=== PATIENT | female | born 1960 | race Caucasian/White ===

== ENCOUNTER → 2019-12-11 10:35 | Outpatient (BNVA) | payer MEDICARE, MEDICAID, SELFPAY | PROVIDERS: PCP Internal Medicine; Referring Provider Internal Medicine; Visit Provider Internal Medicine | DX: J44.9 Chronic obstructive pulmonary disease, unspecified (principal); J96.90 Respiratory failure, unspecified, unspecified whether with hypoxia or hypercapnia; G47.33 Obstructive sleep apnea (adult) (pediatric); C34.2 Malignant neoplasm of middle lobe, bronchus or lung; F11.20 Opioid dependence, uncomplicated; Z79.899 Other long term (current) drug therapy; Z99.81 Dependence on supplemental oxygen; Z87.891 Personal history of nicotine dependence; Z92.3 Personal history of irradiation | CPT/HCPCS: 99212 ==

== ENCOUNTER 2020-01-01 11:36 | Outpatient (REF) | payer MEDICARE, MEDICAID, SELFPAY ==
[2020-01-01 14:21] LABS: Anion Gap 16 (12-20); Blood Urea Nitrogen 34 mg/dL (9-16); Calcium 9.6 mg/dL (8.4-10.2); Carbon Dioxide 32 mmol/L (22-29); Chloride 97 mmol/L (96-108); Estimated Glomerular Filt Rate 26; Potassium 4.9 mmol/l (3.3-5.1); Sodium 140 mmol/L (135-145)
== END 2020-01-01 11:37 | disposition home or self-care (01) ==
LOC: HO.HMGCLDS 11:36
PROVIDERS: PCP Internal Medicine; Visit Provider Internal Medicine Hypertension Specialist
DX: I12.9 Hypertensive chronic kidney disease with stage 1 through stage 4 chronic kidney disease, or unspecified chronic kidney disease (principal); N18.9 Chronic kidney disease, unspecified; L03.119 Cellulitis of unspecified part of limb
CPT/HCPCS: 80051; 82310; 82565; 84520

== ENCOUNTER 2020-03-07 09:26 | Outpatient (REF) | payer MEDICARE, MEDICAID, SELFPAY ==
[2020-03-07 11:58] LABS: Anion Gap 15 (12-20); Blood Urea Nitrogen 34 mg/dL (9-16); Carbon Dioxide 33 mmol/L (22-29); Chloride 100 mmol/L (96-108); Estimated Glomerular Filt Rate 27; Potassium 4.6 mmol/l (3.3-5.1); Sodium 143 mmol/L (135-145)
== END 2020-03-07 09:27 | disposition home or self-care (01) ==
LOC: HO.HMGCLDS 09:26
PROVIDERS: PCP Internal Medicine; Visit Provider Internal Medicine Hypertension Specialist
DX: I12.9 Hypertensive chronic kidney disease with stage 1 through stage 4 chronic kidney disease, or unspecified chronic kidney disease (principal); N18.9 Chronic kidney disease, unspecified; L03.119 Cellulitis of unspecified part of limb
CPT/HCPCS: 36415; 80051; 82565; 84520

== ENCOUNTER → 2020-03-18 10:47 | Outpatient (BNVA) | payer MEDICARE, MEDICAID, SELFPAY | PROVIDERS: PCP Internal Medicine; Visit Provider Internal Medicine | DX: C34.90 Malignant neoplasm of unspecified part of unspecified bronchus or lung (principal); G47.33 Obstructive sleep apnea (adult) (pediatric); J96.90 Respiratory failure, unspecified, unspecified whether with hypoxia or hypercapnia; J44.9 Chronic obstructive pulmonary disease, unspecified; J98.4 Other disorders of lung | CPT/HCPCS: 99212 ==

== ENCOUNTER 2020-04-04 09:10 | Outpatient (REF) | payer MEDICARE, MEDICAID, SELFPAY ==
[2020-04-04 11:14] LABS: MANUAL DIFF FLAG NO
[2020-04-04 11:24] LABS: Basophils Absolute Auto 0.1 X10*3/uL (0.0-0.2); Basophils Percent Auto 0.6 % (0-2); Hemoglobin 9.8 g/dl (12.0-16.0); Imm Gran Abs Auto 0.03 X10*3/uL (0.00-0.03); Imm Gran Pct Auto 0.3 % (0.0-0.4); Lymphocytes Absolute Auto 1.4 X10*3/uL (1.2-4.9); Lymphocytes Percent Auto 15.9 % (20-40); Mean Corpuscular HGB Conc 29.7 g/dl (31.0-35.0); Mean Corpuscular Hemoglobin 27.5 pg (27.0-33.0); Mean Corpuscular Volume 92.4 fL (80-98); Mean Platelet Volume 9.6 fL (9.4-12.3); Monocytes Absolute Auto 1.1 X10*3/uL (0.1-1.2); Monocytes Percent Auto 12.8 % (2-11); Neutrophils Percent Auto 70.4 % (45-73); Platelet Count 330 X10*3/uL (160-400); Red Blood Count 3.57 X10*6/uL (4.20-5.50); Red Cell Distribution Width 12.6 % (11.0-16.0); White Blood Count 8.6 X10*3/uL (4.8-10.8)
[2020-04-04 11:45] LABS: Alanine Aminotransferase 18 U/L (0-31); Aspartate Amino Transferase 21 U/L (5-31); Cholesterol 184 mg/dL; HDL Cholesterol 46 mg/dL; Iron 33 mcg/dL (30-160); LDL Cholesterol Calculated 101 mg/dl; Percent Iron Saturation 10 % (15-50); Total Iron Binding Capacity 322 mcg/dL (228-428); Triglycerides 189 mg/dL; Unsaturated Iron Binding 289 ug/dL
[2020-04-04 12:09] LABS: Vitamin D 25-OH Total 28.7 ng/mL (>30)
[2020-04-04 17:58] LABS: Folate 10.4 ng/mL (> or = 4.0); Vitamin B12 548 pg/mL (200-900)
== END 2020-04-04 09:11 | disposition home or self-care (01) ==
LOC: HO.HMGCLDS 09:10
PROVIDERS: PCP Internal Medicine; Visit Provider Internal Medicine
DX: D12.6 Benign neoplasm of colon, unspecified (principal); D64.9 Anemia, unspecified; E78.5 Hyperlipidemia, unspecified; Z78.0 Asymptomatic menopausal state
CPT/HCPCS: 36415; 80061; 82306; 82607; 82746; 83540; 84450; 84460; 85025

== ENCOUNTER → 2020-04-25 09:09 | Outpatient (BNVA) | payer MEDICARE, MEDICAID, SELFPAY | PROVIDERS: Visit Provider Nurse Practitioner ==

== ENCOUNTER 2020-04-25 11:12 | Emergency (ER) | payer MEDICARE, MEDICAID, SELFPAY ==
--- NOTE | ~2020-04-25 | XR_ITS ---
EXAMINATION: XR CHEST CLINICAL INFORMATION: Cough, dyspnea, rule out pneumonia COMPARISON: Prior chest radiographs, most recently 07/29/2019 TECHNIQUE: 2 views of the chest were obtained. FINDINGS: Lung volumes are slightly diminished and there is mild crowding of the bronchovascular structures. There are linear opacities within the right middle lobe and there is a small amount of bibasilar atelectasis. The cardiac mediastinal silhouette is stable in size and morphology. There is no large pleural effusion or pneumothorax identified. The structures of the chest wall are unchanged. XR/XR chest 2V IMPRESSION: Linear right middle lobe opacities and minimal bibasilar opacities may represent atelectasis versus pneumonia in the appropriate setting. Follow-up to radiographic resolution is recommended. Given the linear orientation, atelectasis favored.
[2020-04-25 11:31] VITALS: BP 152/73; PULSE 88; RESP 20; TEMP 36.5; O2SAT 91; BMI 43.7
[2020-04-25 13:18] VITALS: BP 140/83; PULSE 106; RESP 22; O2SAT 95
--- NOTE | 2020-04-25 13:27 | ECG_ITS ---
Test Reason : WEAKNESS Blood Pressure : / mmHG Vent. Rate : 083 BPM Atrial Rate : 083 BPM P-R Int : 160 ms QRS Dur : 084 ms QT Int : 388 ms P-R-T Axes : 078 055 049 degrees QTc Int : 455 ms Normal sinus rhythm Normal ECG When compared with ECG of 29-JUL-2019 13:50, T wave inversion no longer evident in Inferior leads Referred By: Hebert Reese Electronically Signed By:THERESA BRENNAN MD
--- NOTE | 2020-04-25 13:29 | ED.GENADULT ---
HPI - General Adult General Chief complaint: Dyspnea Stated complaint: Edema Time Seen by Provider: 04/25/20 13:12 Source: patient and family (Daughter, Anabel) Mode of arrival: ambulatory Limitations: no limitations History of Present Illness HPI narrative: 59-year-old female who presents emergency department for evaluation of shortness of breath, swelling or lower extremities, cough, and fluid weight gain. Patient states that she been short of breath for approximately 5 days and is getting progressively worse. She states she has a history of COPD, lung cancer and congestive heart failure and she believes that her COPD is flared up. She states that she has been using her nebulizers 5 times a day which is more frequent than usual, with only minimal relief of her shortness of breath. She states that she has an intermittent, nonproductive cough. She states that her legs have become very swollen and she feels like there is pockets of fluid inner thighs. She states that when her dialysis chief equipment technician with her last she had a 30 lb weight gain which she believes is all fluid. She denied chest pain, fever, chills. She has had significant orthopnea and cannot lie down flat and has significant dyspnea on exertion. The patient states that she takes Bumex 2 mg twice a day and she does not believe that it is working. The patient states that 1 year prior she had congestive heart failure and required intubation. Related Data Home Medications Medication Instructions Recorded Confirmed bumetanide 2 mg tablet 2 mg PO BID 03/18/20 04/25/20 acetaminophen 650 mg PO BID PRN 04/25/20 04/25/20 albuterol sulfate 2.5 mg INHALATION Q6H PRN 04/25/20 04/25/20 cholecalciferol (vitamin D3) 1,250 mcg PO TH@09 04/25/20 04/25/20 clonazepam [Klonopin] 1 mg PO TID 04/25/20 04/25/20 diltiazem HCl 1 cap PO DAILY 04/25/20 04/25/20 gabapentin 100 mg PO BID PRN 04/25/20 04/25/20 hydroxyzine pamoate 50 mg PO BEDTIME PRN 04/25/20 04/25/20 loratadine 10 mg PO DAILY 04/25/20 04/25/20 methadone 68 mg PO DAILY 04/25/20 Previous Rx's Medication Instructions Recorded aspirin 81 mg tablet,delayed 81 mg PO DAILY #30 tab 12/11/19 release atorvastatin 80 mg tablet 80 mg PO DAILY #90 tab 12/29/19 Symbicort 160 mcg-4.5 2 puff PO Q12H #10.2 g NS 01/08/20 mcg/actuation HFA aerosol inhaler isosorbide mononitrate 60 mg 60 mg PO QAM #30 tab 01/08/20 tablet,extended release 24 hr ipratropium 20 mcg-albuterol 100 1 puff INHALATION QID #4 g 04/01/20 mcg/actuation mist for inhalation doxycycline hyclate 100 mg PO Q12H 10 Days #20 tab 04/25/20 prednisone 60 mg PO DAILY 5 Days #15 tab 04/25/20 Allergies Allergy/AdvReac Type Severity Reaction Status Date / Time ciprofloxacin [From Cipro] Allergy Unknown HIVES/SWELLING, Verified 04/25/20 09:09 THROAT CLOSES shellfish derived Allergy Unknown UNKNOWN Verified 04/25/20 09:09 [SHELLFISH DERIVED] NSAIDS AdvReac Unknown avoid cue Verified 04/25/20 09:09 to kidney disease Review of Systems Review of Systems: Yes all other systems are reviewed and are negative [facility] Past Medical History [facility] Narrative: The patient states that she is a former smoker, she stopped smoking 10 years prior and has a greater than 30 pack-year history of smoking and she denies alcohol use. Patient states she is currently on methadone for prescription opiate use disorder (oxycodone). She states that she last used opiates 1 year prior. Medical History Anemia Breast cancer screening by mammogram COPD (chronic obstructive pulmonary disease) Dyslipidemia Kidney disease Lung cancer LEO (obstructive sleep apnea) Respiratory failure Restrictive lung disease Tubular adenoma of colon Surgical History H/O colonoscopy History of hand surgery History of laparoscopy History of tubal ligation S/P ureteral stent placement Family History Family History Father Diabetes mellitus Mother Depression Maternal Grandfather Colon cancer Sister No problems noted. Son No problems noted. Daughter No problems noted. Daughter No problems noted. Social History Social History Household Members: Spouse Alcohol intake: never Smoking Status: Former smoker Use of substances other than those prescribed or required for medical reasons: No Advance Directives: No Advance Directives Information Provided: No Physical Exam Vital Signs: Vital Signs: Last Vital Signs Temp 98.2 F 04/25/20 15:22 Pulse 99 04/25/20 15:22 Resp 19 04/25/20 15:22 BP 114/75 04/25/20 15:22 Pulse Ox 93 04/25/20 15:22 Body Mass Index 43.7 Const: General: cooperative Nutritional Appearance: obese morbidly obese Orientation/consciousness: oriented to person and oriented to place Limitations: no limitations HENMT: Head: Yes normal to inspection, Yes normocephalic and Yes atraumatic Ears: external ears normal General nose exam: Normal external nose present Face and sinus: Yes normal facial exam Mouth: Normal oral and palatal mucosa present Throat: Yes posterior oropharynx normal Eyes: Periorbital: periorbital findings normal Eyelids: Yes eyelids normal Conjunctivae: conjunctivae normal Sclerae: sclerae normal Corneas: corneas normal Pupils: Equal, round and reactive pupils present Direct Ophthalmoscopy: normal light reflex Neck: Neck: Yes full ROM, Yes no lymphadenopathy, Yes no meningeal signs, Yes trachea midline and Yes supple Chest: Chest palpation & inspection: normal inspection of the chest and normal palpation of entire chest wall Resp: Effort & Inspection: normal respiratory effort and able to speak in complete sentences Auscultation: rales bilateral at the base and wheezes throughout Cardio: Rate: regular rate Rhythm: regular rhythm Heart sounds: S1 normal heart sound present, S2 normal heart sound present and no murmurs GI: Inspection: Yes normal to inspection Palpation (GI): Soft to palpation, nontender, no guarding, not rigid and No hepatosplenomegaly present : General: Yes no CVA tenderness Back/Spine/Pelvis: Back: no CVA tenderness Cervical Spine: normal cervical lordosis Thoracic/Lumbar Spine: thoracic and lumbar spine normal to inspection Skin: Lesions: no lesions Rashes: no rashes Wounds: no wounds Neuro: General: oriented to person, oriented to place and no meningeal signs Cranial nerves: Yes CN's II-XII intact bilaterally and Yes Equal, round and reactive pupils present Cognition (Neuro): normal cognition Motor exam (neuro): 5/5 motor strength present throughout Extrem: Other: 1+ pitting edema to just below the knee, bilaterally symmetric, bilateral circumferential erythema from the ankle to just below the knee, the erythema is not warm to the touch. Psych: Appearance: well kempt Mental Status: mental status grossly normal Speech and movement: Normal speech and movement present Affect: normal affect Attitude: cooperative Thought process: Normal thought process present Thought content: Normal thought content present Course Course Course Narrative: 59-year-old female with a history of COPD, lung cancer in remission, CHF with intubation 1 year prior, chronic kidney disease who presents emergency department for evaluation of 5 days of shortness of breath with increased use of her nebulizer treatments without any relief of her symptoms. Physical examination did reveal diffuse wheezing, 1+ pitting edema bilaterally symmetric and erythema to her lower extremities. The differential includes pneumonia, CHF, COPD exacerbation, COVID-19 pneumonia, pneumonia. I do not think that she has cellulitis at this time. I did order a CBC, CMP, troponin, BNP, COVID-19 test, chest x-ray. Patient was ordered to get an albuterol 5 mg nebulizer x1, Solu-Medrol 125 mg IV. 1636: The patient's repeat laboratory evaluation revealed mild anemia with an H&H of 10.1 and 33.1, this is chronic. At the patient's BUN and creatinine were elevated at 32 and 2.09, this is similar to elevations in the past. Patient's BNP was below detectable limits suggesting the patient does not have CHF as the cause of her shortness of breath. The patient's troponin is detectable but not elevated, I do not think that cardiac injury is the cause of her symptoms. The patient's COVID-19 test was negative. Chest x-ray revealed linear middle lobe opacity consistent with atelectasis versus pneumonia as per radiologist. At this time I suspect the patient has a COPD exacerbation, she may have bronchitis. I do not think that she has cellulitis however I am going to treated with doxycycline 100 mg twice a day for pulmonary infection and this would also give her coverage for possible cellulitis. The patient was discharged home with a prescription for prednisone 60 mg once a day for 5 days as well. She was advised to decrease her fluid intake, keep her legs elevated continue taking her Bumex.. Medical Decision Making Lab Data Result diagrams: 04/25/20 13:47 04/25/20 13:47 Labs: Lab Results 04/25/20 04/25/20 04/25/20 Range/Units 13:47 13:47 13:47 WBC 8.0 (4.8-10.8) X10*3/uL RBC 3.64 L (4.20-5.50) X10*6/uL Hgb 10.1 L (12.0-16.0) g/dl Hct 33.1 L (37-47) % MCV 90.9 (80-98) fL MCH 27.7 (27.0-33.0) pg MCHC 30.5 L (31.0-35.0) g/dl RDW 12.4 (11.0-16.0) % Plt Count 335 (160-400) X10*3/uL MPV 8.9 L (9.4-12.3) fL Immature Gran % (Auto) 0.7 H (0.0-0.4) % Neut % (Auto) 67.2 (45-73) % Lymph % (Auto) 15.3 L (20-40) % [place] % (Auto) 13.9 H (2-11) % Eos % (Auto) 2.0 (0-4) % Baso % (Auto) 0.9 (0-2) % Lymph # (Auto) 1.2 (1.2-4.9) X10*3/uL [place] # (Auto) 1.1 (0.1-1.2) X10*3/uL Eos # (Auto) 0.2 (0.0-0.4) X10*3/uL Baso # (Auto) 0.1 (0.0-0.2) X10*3/uL Abs Immat Gran (auto) 0.06 H (0.00-0.03) X10*3/uL Absolute Neuts (auto) 5.4 (2.0-8.3) X10*3/uL Absolute Nucleated RBC 0.000 (0.0-0.012) X10*3/uL Nucleated RBC % (auto) 0.0 (0.0-0.2) /100WBC Sodium 139 (135-145) mmol/L Potassium 4.9 (3.3-5.1) mmol/L Chloride 98 (96-108) mmol/L Carbon Dioxide 27 (22-29) mmol/L Anion Gap 19 (12-20) BUN 32 H (9-16) mg/dL Creatinine 2.09 H (0.5-1.4) mg/dL Estim Creat Clear Calc 33.1 Estimated GFR 24 Random Glucose 107 (60-115) mg/dL Lactic Acid 1.1 (0.5-2.0) mmol/L Calcium 9.3 (8.4-10.2) mg/dL Total Bilirubin 0.5 (0.0-1.0) mg/dL AST 31 D (5-31) U/L ALT 20 (0-31) U/L Alkaline Phosphatase 135 H (39-117) U/L Troponin I High Sens (<3.5-17.0) ng/L B-Natriuretic Peptide (<100) pg/mL Total Protein 7.4 (6.5-8.0) g/dL Albumin 4.3 (3.5-5.0) g/dL COVID-19 ([facility]) (Negative) COVID-19 Clin Com 04/25/20 04/25/20 Range/Units 13:47 13:49 WBC (4.8-10.8) X10*3/uL RBC (4.20-5.50) X10*6/uL Hgb (12.0-16.0) g/dl Hct (37-47) % MCV (80-98) fL MCH (27.0-33.0) pg MCHC (31.0-35.0) g/dl RDW (11.0-16.0) % Plt Count (160-400) X10*3/uL MPV (9.4-12.3) fL Immature Gran % (Auto) (0.0-0.4) % Neut % (Auto) (45-73) % Lymph % (Auto) (20-40) % [place] % (Auto) (2-11) % Eos % (Auto) (0-4) % Baso % (Auto) (0-2) % Lymph # (Auto) (1.2-4.9) X10*3/uL [place] # (Auto) (0.1-1.2) X10*3/uL Eos # (Auto) (0.0-0.4) X10*3/uL Baso # (Auto) (0.0-0.2) X10*3/uL Abs Immat Gran (auto) (0.00-0.03) X10*3/uL Absolute Neuts (auto) (2.0-8.3) X10*3/uL Absolute Nucleated RBC (0.0-0.012) X10*3/uL Nucleated RBC % (auto) (0.0-0.2) /100WBC Sodium (135-145) mmol/L Potassium (3.3-5.1) mmol/L Chloride (96-108) mmol/L Carbon Dioxide (22-29) mmol/L Anion Gap (12-20) BUN (9-16) mg/dL Creatinine (0.5-1.4) mg/dL Estim Creat Clear Calc Estimated GFR Random Glucose (60-115) mg/dL Lactic Acid (0.5-2.0) mmol/L Calcium (8.4-10.2) mg/dL Total Bilirubin (0.0-1.0) mg/dL AST (5-31) U/L ALT (0-31) U/L Alkaline Phosphatase (39-117) U/L Troponin I High Sens 5.8 (<3.5-17.0) ng/L B-Natriuretic Peptide < 10 (<100) pg/mL Total Protein (6.5-8.0) g/dL Albumin (3.5-5.0) g/dL COVID-19 ([facility]) Negative (Negative) COVID-19 Clin Com See Note Discharge Plan Discharge Clinical Impression: Acute exacerbation of chronic obstructive pulmonary disease, Peripheral edema Patient Disposition: Home, Self-Care Instructions: Acute Bronchitis (ED) Additional Instructions: Your laboratory evaluation was unchanged from your baseline which is reassuring. The chest x-ray did not reveal a clear pneumonia on my interpretation of the x-ray. I do not see any fluid on your chest x-ray which is also reassuring, I do not think that you have congestive heart failure at this time. You shortness of breath is most likely caused by a flare-up of your COPD and possibly bronchitis. Take doxycycline 100 mg twice a day for 10 days, this antibiotic which treat a lung infection as well as possible cellulitis. Take prednisone 60 mg once a day for 5 days. Keep your legs elevated to help reduce the swelling in your legs in reduce the redness. Reduce the amount of fluid that you drink so that you can reduce the swelling in your legs. Continue medications as prescribed by your doctor. Follow-up with your doctor in 2 days. Please return to the emergency department if your symptoms get worse or if you develop any symptoms that are concerning to you. Prescriptions: New doxycycline hyclate 100 mg tablet 100 mg PO Q12H 10 Days Qty: 20 RF: 0 prednisone 20 mg tablet 60 mg PO DAILY 5 Days Qty: 15 RF: 0 No Action aspirin 81 mg tablet,delayed release (DR/EC) 81 mg PO DAILY Qty: 30 RF: 0 atorvastatin 80 mg tablet 80 mg PO DAILY Qty: 90 RF: 1 budesonide-formoterol [Symbicort] 160-4.5 mcg/actuation HFA aerosol inhaler 2 puff PO Q12H Qty: 10.2 RF: 0 isosorbide mononitrate 60 mg tablet extended release 24 hr 60 mg PO QAM Qty: 30 RF: 0 ipratropium-albuterol [Combivent Respimat] 20-100 mcg/actuation mist 1 puff inhalation QID Qty: 4 RF: 0 diltiazem HCl 120 mg capsule,extended release 24hr 1 cap PO DAILY RF: 0 loratadine 10 mg Tablet 10 mg PO DAILY RF: 0 albuterol sulfate 2.5 mg /3 mL (0.083 %) solution for nebulization 2.5 mg inhalation Q6H PRN (Reason: Shortness Of Breath) RF: 0 clonazepam [Klonopin] 1 mg tablet 1 mg PO TID RF: 0 gabapentin 100 mg capsule 100 mg PO BID PRN (Reason: Pain, Mild) RF: 0 cholecalciferol (vitamin D3) 1,250 mcg (50,000 unit) capsule 1,250 mcg PO TH@09 RF: 0 acetaminophen 325 mg Tablet 650 mg PO BID PRN (Reason: Pain, Mild) RF: 0 methadone 10 mg/mL concentrate 68 mg PO DAILY RF: 0 hydroxyzine pamoate 50 mg capsule 50 mg PO BEDTIME PRN (Reason: Sleep) RF: 0 bumetanide 2 mg tablet 2 mg PO BID RF: 0
[2020-04-25] MEDS: methylPREDNISolone Sod Succ 125 MG/2 ML VIAL IVPUSH (13:51)
--- NOTE | 2020-04-25 13:57 | PC.NURSE ---
iv inserted, labs drawn, ekg performed, pt medicated per order, cardiac cath technologist applied, pt sinus tach on monitor
--- NOTE | 2020-04-25 13:58 | PC.NURSE ---
rt called for updraft
[2020-04-25 14:00] LABS: Basophils Absolute Auto 0.1 X10*3/uL (0.0-0.2); Basophils Percent Auto 0.9 % (0-2); Eosinophils Absolute Auto 0.2 X10*3/uL (0.0-0.4); Hematocrit 33.1 % (37-47); Hemoglobin 10.1 g/dl (12.0-16.0); Imm Gran Abs Auto 0.06 X10*3/uL (0.00-0.03); Imm Gran Pct Auto 0.7 % (0.0-0.4); Lymphocytes Absolute Auto 1.2 X10*3/uL (1.2-4.9); Lymphocytes Percent Auto 15.3 % (20-40); MANUAL DIFF FLAG NO; Mean Corpuscular HGB Conc 30.5 g/dl (31.0-35.0); Mean Corpuscular Hemoglobin 27.7 pg (27.0-33.0); Mean Corpuscular Volume 90.9 fL (80-98); Mean Platelet Volume 8.9 fL (9.4-12.3); Monocytes Absolute Auto 1.1 X10*3/uL (0.1-1.2); Monocytes Percent Auto 13.9 % (2-11); Neutrophils Absolute Auto 5.4 X10*3/uL (2.0-8.3); Neutrophils Percent Auto 67.2 % (45-73); Platelet Count 335 X10*3/uL (160-400); Red Blood Count 3.64 X10*6/uL (4.20-5.50); Red Cell Distribution Width 12.4 % (11.0-16.0)
[2020-04-25] MEDS: Albuterol Sulfate (0.083%) 2.5 MG/3 ML VIAL.NEB 5 MG INHALE (14:07)
[2020-04-25 14:13] LABS: COVID-19 Test Negative (Negative)
[2020-04-25 14:23] LABS: Lactic Acid 1.1 mmol/L (0.5-2.0)
[2020-04-25 14:30] LABS: B Type Natriuretic Peptide < 10 pg/mL (<100); Troponin-I High Sensitivity 5.8 ng/L (<3.5-17.0)
[2020-04-25 14:36] LABS: Alanine Aminotransferase 20 U/L (0-31); Albumin Level 4.3 g/dL (3.5-5.0); Alkaline Phosphatase 135 U/L (39-117); Anion Gap 19 (12-20); Aspartate Amino Transferase 31 U/L (5-31); Bilirubin Total 0.5 mg/dL (0.0-1.0); Blood Urea Nitrogen 32 mg/dL (9-16); Calcium 9.3 mg/dL (8.4-10.2); Carbon Dioxide 27 mmol/L (22-29); Chloride 98 mmol/L (96-108); Creatinine Clr Calc Pharmacy 33.1; Estimated Glomerular Filt Rate 24; Glucose Random 107 mg/dL (60-115); Potassium 4.9 mmol/L (3.3-5.1); Sodium 139 mmol/L (135-145); Total Protein 7.4 g/dL (6.5-8.0)
[2020-04-25 15:22] VITALS: BP 114/75; PULSE 99; RESP 19; TEMP 36.8; O2SAT 93
--- NOTE | 2020-04-25 15:25 | PC.NURSE ---
patient a&ox3, shelter monitor nsr to sinus tach 90s-low 100s, pt 2l o2 nc o2 sat 93% however when the patient speaks in full sentences patients o2 sat decreases to 89-90% and patient is notably sob while speaking. Vitals currently stable, will continue to monitor.
--- NOTE | 2020-04-25 16:44 | PC.NURSE ---
patient medicated per order
== END 2020-04-25 17:13 | disposition home or self-care (01) ==
PROVIDERS: Emergency Provider Emergency Medicine Emergency Medical Services; PCP Internal Medicine
DX: J44.1 Chronic obstructive pulmonary disease with (acute) exacerbation (principal); R60.0 Localized edema; F11.90 Opioid use, unspecified, uncomplicated; R05 Cough; Z20.822 Contact with and (suspected) exposure to COVID-19; Z79.899 Other long term (current) drug therapy; Z87.891 Personal history of nicotine dependence
CPT/HCPCS: 36415; 71046; 80053; 83605; 83880; 84484; 85025; 87635; 93005; 94640; 96374; 99284; J2930; Q3014

== ENCOUNTER 2020-05-13 10:26 | Outpatient (REF) | payer MEDICARE, MEDICAID, SELFPAY ==
[2020-05-13 11:32] LABS: MANUAL DIFF FLAG NO
[2020-05-13 11:50] LABS: Basophils Percent Auto 0.4 % (0-2); Hematocrit 34.4 % (37-47); Hemoglobin 10.5 g/dl (12.0-16.0); Imm Gran Abs Auto 0.02 X10*3/uL (0.00-0.03); Imm Gran Pct Auto 0.2 % (0.0-0.4); Lymphocytes Absolute Auto 1.1 X10*3/uL (1.2-4.9); Lymphocytes Percent Auto 11.5 % (20-40); Mean Corpuscular HGB Conc 30.5 g/dl (31.0-35.0); Mean Corpuscular Hemoglobin 28.2 pg (27.0-33.0); Mean Corpuscular Volume 92.2 fL (80-98); Mean Platelet Volume 9.5 fL (9.4-12.3); Monocytes Absolute Auto 1.1 X10*3/uL (0.1-1.2); Monocytes Percent Auto 12.4 % (2-11); Neutrophils Absolute Auto 6.9 X10*3/uL (2.0-8.3); Neutrophils Percent Auto 75.5 % (45-73); Platelet Count 295 X10*3/uL (160-400); Red Blood Count 3.73 X10*6/uL (4.20-5.50); White Blood Count 9.2 X10*3/uL (4.8-10.8)
[2020-05-13 11:54] LABS: B Type Natriuretic Peptide < 10 pg/mL (<100)
[2020-05-13 12:02] LABS: Alanine Aminotransferase 20 U/L (0-31); Aspartate Amino Transferase 26 U/L (5-31); Cholesterol 172 mg/dL; HDL Cholesterol 46 mg/dL; LDL Cholesterol Calculated 100 mg/dl; Triglycerides 133 mg/dL
[2020-05-13 12:13] LABS: Vitamin D 25-OH Total 46.5 ng/mL (>30)
== END 2020-05-13 10:27 | disposition home or self-care (01) ==
LOC: HO.HMGCLDS 10:26
PROVIDERS: PCP Internal Medicine; Visit Provider Internal Medicine
DX: D64.9 Anemia, unspecified (principal); E78.5 Hyperlipidemia, unspecified; E55.9 Vitamin D deficiency, unspecified; Z78.0 Asymptomatic menopausal state
CPT/HCPCS: 36415; 80061; 82306; 83880; 84450; 84460; 85025

== ENCOUNTER → 2020-05-22 10:30 | Outpatient (BNVA) | payer MEDICARE, MEDICAID, SELFPAY | PROVIDERS: PCP Internal Medicine; Visit Provider Internal Medicine ==

== ENCOUNTER 2020-05-22 10:43 | Emergency (ER) | payer MEDICARE, MEDICAID, SELFPAY ==
--- NOTE | ~2020-05-22 | XR_ITS ---
EXAMINATION: XR RIBS, RIGHT CLINICAL INFORMATION: Fall, posterior rib pain COMPARISON: Chest radiograph 05/22/2020 and 04/25/2020 TECHNIQUE: 3 views of the right ribs were obtained. FINDINGS: There is a mildly displaced right fifth lateral rib fracture, the edges are somewhat corticated, and age is indeterminate, favored to the subacute or chronic. There is a healed right anterior 12th rib fracture. The remainder of the bones are intact. There are streaky areas of atelectasis or scarring in the bilateral lower lobes, similar to the prior. No pleural effusion or pneumothorax. XR/XR ribs RT 2V IMPRESSION: Mildly displaced right fifth lateral rib fracture, of indeterminate age, but favored to be subacute or chronic. Healed right anterior 12th rib fracture. Streaky atelectasis versus scarring at the bilateral lower lobes.
--- NOTE | ~2020-05-22 | XR_ITS ---
EXAMINATION: XR CHEST CLINICAL INFORMATION: Shortness of breath COMPARISON: Previous chest x-ray, most recent April 25, 2020 TECHNIQUE: 2 views of the chest were obtained. FINDINGS: The cardiac and mediastinal contours are stable. There is bilateral subsegmental atelectasis or small infiltrates in the right middle lobe and bilateral lung bases. This does not appear appreciably changed from most recent chest x-ray 04/25/2020. This is new from older chest x-ray July 2019. There is no pleural effusion or pneumothorax. There are degenerative changes of the spine. XR/XR chest 2V IMPRESSION: Subsegmental atelectasis or small infiltrates in the right middle lobe and bilateral lung bases similar to most recent chest x-ray April 2020.
--- NOTE | ~2020-05-22 | CT_ITS ---
EXAMINATION: CT HEAD WITHOUT CONTRAST CT CERVICAL SPINE WITHOUT CONTRAST CLINICAL INFORMATION: fall 3 days, worsening motor coordination upper extremities? COMPARISON: CT head February 2019. CT cervical spine 01/10/2010 TECHNIQUE: Imaging was performed from the skull base to vertex without intravenous administration of contrast. In addition, helical noncontrast CT imaging was acquired through the cervical spine and source images were reviewed along with axial reconstructions and sagittal and coronal MPRs. [This CT examination was performed using dose optimization techniques as appropriate, variously including the following: *Automated exposure control *Adjustment of mA and/or kV according to patient size (this includes techniques or standardized protocols for targeted exams where dose is matched to indication/reason for exam; i.e. extremities or head) *Use of iterative reconstruction technique] DLP: 1349 mGy-cm FINDINGS: HEAD: No intracranial mass, hemorrhage, or midline shift is visualized. The ventricles and sulci are age-appropriate. No extra-axial collections are identified. The paranasal sinuses and mastoid air cells are well aerated. CERVICAL SPINE: There is reversal the normal lordotic curve of the cervical spine. This has progressed since prior study of January 2010 CT exam. There is a minimal anterior listhesis C4 on C5 due to facet joint disease. There is no fracture. There is multilevel degenerative spondylosis of disc height narrowing and vertebral endplate spurring and facet joint arthrosis which has progressed since CAT scan of 2009. Most significant disc height narrowing and endplate spurring at C6-C7. There are small bone erosions at the facet joints on the right C4-C5 and on the left at C3-C4. These are consistent with inflammatory arthrosis. No pre- or paravertebral soft tissue abnormality is identified. Limited assessment of the lung apices is unremarkable. CT/CT cervical spine wo con IMPRESSION: 1. No acute intracranial pathology. 2. No CT evidence of acute cervical spine fracture or traumatic subluxation
[2020-05-22 11:59] VITALS: BP 140/63; PULSE 91; RESP 20; TEMP 36.7; O2SAT 91; BMI 44.9
--- NOTE | 2020-05-22 12:05 | ECG_ITS ---
Test Reason : FALL Blood Pressure : / mmHG Vent. Rate : 116 BPM Atrial Rate : 116 BPM P-R Int : 152 ms QRS Dur : 074 ms QT Int : 320 ms P-R-T Axes : 061 050 042 degrees QTc Int : 444 ms Artifact in tracing Sinus tachycardia Otherwise normal ECG When compared with ECG of 25-APR-2020 13:50, No significant changes seen Referred By: Ron Ziegler Electronically Signed By:YUNIOR BARON
--- NOTE | 2020-05-22 12:07 | ED.GENADULT ---
HPI - General Adult General Chief complaint: General Medical <Ron Ziegler NP - Last Filed: 05/22/20 21:26> Stated complaint: HEAD INJ <Ron Ziegler NP - Last Filed: 05/22/20:26> Time Seen by Provider: 05/22/20 11:24 <Ron Ziegler NP - Last Filed: 05/22/20 21:26> Source: patient <Ron Ziegler NP - Last Filed: 05/22/20 21:26> patient <Nichole Langford MD - Last Filed: 05/22/20:31> Mode of arrival: wheelchair <Ron Ziegler NP - Last Filed: 05/22/20 21:26> ambulatory <Nichole Langford MD - Last Filed: 05/22/20:31> Limitations: no limitations <Ron Ziegler NP - Last Filed: 05/22/20:> no limitations <Nichole Langford MD - Last Filed: 05/22/20 21:31> History of Present Illness HPI narrative: Rapid medical evaluation patient seen in triage in triage to the main emergency room appropriate lab work ordered upon arrival Chief presents with constellation of symptoms including fall days ago hit her head has been having muscle tremors and hard time with walking also feet more swollen and red and also having hard time breathing. 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 <Ron Ziegler NP - Last Filed: 05/22/20 21:26> Patient comes emergency room complaining of a head injury that happened 3 days ago. Patient states she lost her balance and hit the back of her head, patient is not on blood thinners, denies loss of consciousness. 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 Patient also complaining of worsening cough, and lower extremity edema, patient states also that with the fall, she hurt her ribs on the right side. <Nichole Langford MD - Last Filed: 05/22/20 21:31> Onset (ago): day(s) (4) <Ron Ziegler NP - Last Filed: 05/22/20 21:26> Related Data Home medications: Home Medications Medication Instructions Recorded Confirmed bumetanide 2 mg tablet 2 mg PO BID 03/18/20 05/14/20 acetaminophen 650 mg PO BID PRN 04/25/20 05/14/20 albuterol sulfate 2.5 mg INHALATION Q6H PRN 04/25/20 05/14/20 cholecalciferol (vitamin D3) 1,250 mcg PO TH@09 04/25/20 05/14/20 clonazepam [Klonopin] 1 mg PO TID 04/25/20 05/14/20 diltiazem HCl 1 cap PO DAILY 04/25/20 05/14/20 hydroxyzine pamoate 50 mg PO BEDTIME PRN 04/25/20 05/14/20 loratadine 10 mg PO DAILY 04/25/20 05/14/20 methadone 68 mg PO DAILY 04/25/20 05/14/20 Previous Rx's Medication Instructions Recorded aspirin 81 mg tablet,delayed 81 mg PO DAILY #30 tab 12/11/19 release atorvastatin 80 mg tablet 80 mg PO DAILY #90 tab 12/29/19 isosorbide mononitrate 60 mg 60 mg PO QAM #30 tab 01/08/20 tablet,extended release 24 hr ipratropium 20 mcg-albuterol 100 1 puff INHALATION QID #4 g 04/01/20 mcg/actuation mist for inhalation Symbicort 160 mcg-4.5 2 puff PO Q12H #10.2 g NS 05/06/20 mcg/actuation HFA aerosol inhaler gabapentin 100 mg capsule 100 mg PO BID #60 cap 05/06/20 azithromycin 250 mg PO DAILY 5 Days #5 tab 05/22/20 prednisone 50 mg PO DAILY #4 tab 05/22/20 torsemide 20 mg PO DAILY #4 tab 05/22/20 tramadol 50 mg PO DAILY PRN #7 tab 05/22/20 <Ron Ziegler NP - Last Filed: 05/22/20 21:26> Allergies/adverse reactions: Allergies Allergy/AdvReac Type Severity Reaction Status Date / Time ciprofloxacin [From Cipro] Allergy Unknown HIVES/SWELLING, Verified 05/14/20 00:22 THROAT CLOSES shellfish derived Allergy Unknown UNKNOWN Verified 05/14/20 00:22 [SHELLFISH DERIVED] NSAIDS AdvReac Unknown avoid cue Verified 05/14/20 00:22 to kidney disease <Ron Ziegler NP - Last Filed: 05/22/20 21:26> Review of Systems Review of Systems: Constitutional : No Weight loss, No Fever, No Chills, No Night Sweats, No Fatigue, No Malaise ENT/Mouth : No Hearing loss, No Ear Pain, No Nasal Congestion, No Sinus Pain, No Hoarseness, No sore throat, No Rhinorrhea, No Swallowing Difficulty Eyes: No Eye Pain, No Swelling, No Redness, No Foreign Body, No Discharge, No Vision Changes Cardiovascular : No Chest Pain, No SOB, chronic Dyspnea on Exertion, No Orthopnea, worsening lower extremity edema Respiratory : Chronic cough with increased sputum, wheezing at baseline, No Smoke Exposure, chronic dyspnea at baseline, on home oxygen Gastrointestinal : No Nausea, No Vomiting, No Diarrhea, No Constipation, No abdominal Pain, No Hematochezia, No Melena Genitourinary : no irregular bleeding, No Dysuria, No Urinary Frequency, No Hematuria, No Urinary Incontinence, No Urgency, No Flank Pain, No Urinary Flow Changes, No Hesitancy Musculoskeletal : Complaining of posterior right rib pain Skin : Tense, due to edema Neuro : No Weakness, No Numbness, No Paresthesias, No Loss of Consciousness, No Dizziness, No Headache, increased tremor Psych : No Anxiety/Panic, No Depression, No SI/HI/AH/VH, No Social Issues, Heme/Lymph: No Bruising, No Bleeding,No Lymphadenopathy Endocrine : No Polyuria, No Polydipsia, No Temperature Intolerance <Nichole Langford MD - Last Filed: 05/22/20 21:31> [facility] Past Medical History Medical History: Medical History Anemia Breast cancer screening by mammogram COPD (chronic obstructive pulmonary disease) Dyslipidemia Kidney disease Lung cancer LEO (obstructive sleep apnea) Respiratory failure Restrictive lung disease Tubular adenoma of colon Vitamin D deficiency <Ron Ziegler NP - Last Filed: 05/22/20 21:26> Surgical History: Surgical History H/O colonoscopy History of hand surgery History of laparoscopy History of tubal ligation S/P ureteral stent placement <Ron Ziegler NP - Last Filed: 05/22/20 21:26> Family History Family History: Family History Father Diabetes mellitus Mother Depression Maternal Grandfather Colon cancer Sister No problems noted. Son No problems noted. Daughter No problems noted. Daughter No problems noted. <Ron Ziegler NP - Last Filed: 05/22/20 21:26> Social History Social History: Social History Household Members: Spouse Alcohol intake: never Smoking Status: Former smoker Use of substances other than those prescribed or required for medical reasons: No Advance Directives: No Advance Directives Information Provided: Yes <Ron Ziegler NP - Last Filed: 05/22/20 21:26> Physical Exam Vital Signs: Vital Signs: Last Vital Signs Temp 98.5 F 05/22/20 17:48 Pulse 110 H 05/22/20 19:54 Resp 18 05/22/20 19:54 BP 137/61 05/22/20 19:54 Pulse Ox 92 05/22/20 19:54 Body Mass Index 44.9 <Ron Ziegler NP - Last Filed: 05/22/20 21:26> Vital Signs: Last Vital Signs Temp 98.5 F 05/22/20 17:48 Pulse 110 H 05/22/20 19:54 Resp 18 05/22/20 19:54 BP 137/61 05/22/20 19:54 Pulse Ox 92 05/22/20 19:54 Body Mass Index 44.9 <Nichole Langford MD - Last Filed: 05/22/20 21:31> Appearance: Alert. Oriented X3. No acute distress. Eyes: Pupils equal, round and reactive to light. ENT: Pharynx normal. Neck: Normal inspection. Neck supple. No lymph nodes noted. No crepitus CVS: Normal heart rate and rhythm. Pulses normal. Normal S1 and S2 Respiratory: No respiratory distress. Breath sounds normal. No Wheezing. No rales Abdomen: Soft and nontender. No rigidity. No distention. good BS x4 Skin: Skin warm and dry. Normal skin color. Normal skin turgor. Extremities: Bilateral +3 pitting edema Neuro: Oriented X 3. No motor deficit. No sensory deficit. Moving all extermities. No slurred speech. <Nichole Langford MD - Last Filed: 05/22/20 21:31> Course Course Course Narrative: Patient is medically stable at this time. NAD. Extensive history appropriate labs ordered and triaged to [facility] emergency room. <Ron Ziegler NP - Last Filed: 05/22/20 21:26> I discussed the labs and imaging with the patient, patient's lactic acid is elevated, white blood cell count is within normal limits, chest x-ray shows atelectasis versus infiltrate in right middle lobe . 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 I discussed with the patient that she should be staying, due to the lower extremity edema, multiple comorbidities, patient declined and wants to go home., Dr. Fields spoke to the patient as well, she declined admission. <Nichole Langford MD - Last Filed: 05/22/20 21:31> Medical Decision Making Lab Data Result diagrams: : 05/22/20 12:26 05/22/20 12:26 <Ron Ziegler NP - Last Filed: 05/22/20 21:26> Labs: Lab Results 05/22/20 05/22/20 05/22/20 Range/Units 12:26 12:26 12:26 WBC 8.7 (4.8-10.8) X10*3/uL RBC 3.30 L (4.20-5.50) X10*6/uL Hgb 9.2 L (12.0-16.0) g/dl Hct 31.3 L (37-47) % MCV 94.8 (80-98) fL MCH 27.9 (27.0-33.0) pg MCHC 29.4 L (31.0-35.0) g/dl RDW 13.2 (11.0-16.0) % Plt Count 372 D (160-400) X10*3/uL MPV 8.6 L (9.4-12.3) fL Immature Gran % (Auto) 0.3 (0.0-0.4) % Neut % (Auto) 78.0 H (45-73) % Lymph % (Auto) 9.1 L (20-40) % Murray % (Auto) 12.3 H (2-11) % Eos % (Auto) 0.0 (0-4) % Baso % (Auto) 0.3 (0-2) % Lymph # (Auto) 0.8 L (1.2-4.9) X10*3/uL Murray # (Auto) 1.1 (0.1-1.2) X10*3/uL Eos # (Auto) 0.0 (0.0-0.4) X10*3/uL Baso # (Auto) 0.0 (0.0-0.2) X10*3/uL Abs Immat Gran (auto) 0.03 (0.00-0.03) X10*3/uL Absolute Neuts (auto) 6.8 (2.0-8.3) X10*3/uL Absolute Nucleated RBC 0.000 (0.0-0.012) X10*3/uL Nucleated RBC % (auto) 0.0 (0.0-0.2) /100WBC PT 11.7 (10.8-13.0) SEC INR 1.0 (0.9-1.1) APTT 41.1 H (24.1-38.0) SEC Sodium 143 (135-145) mmol/L Potassium 5.2 H (3.3-5.1) mmol/L Chloride 102 (96-108) mmol/L Carbon Dioxide 31 H (22-29) mmol/L Anion Gap 15 (12-20) BUN 27 H (9-16) mg/dL Creatinine 1.94 H (0.5-1.4) mg/dL Estim Creat Clear Calc 34.9 Estimated GFR 27 Random Glucose 79 (60-115) mg/dL Lactic Acid (0.5-2.0) mmol/L Lactic Acid Fup @ 2Hr (0.5-2.0) mmol/L Calcium 9.2 (8.4-10.2) mg/dL Magnesium 1.7 (1.6-2.6) mg/dL Ferritin (10-250) ng/mL Total Bilirubin 0.4 (0.0-1.0) mg/dL AST 25 (5-31) U/L ALT 20 (0-31) U/L Alkaline Phosphatase 143 H (39-117) U/L Lactate Dehydrogenase 278 H (122-220) U/L Troponin I High Sens (<3.5-17.0) ng/L C-Reactive Protein (< or = 0.50) mg/dL Total Protein 6.8 (6.5-8.0) g/dL Albumin 4.2 (3.5-5.0) g/dL Procalcitonin ng/mL Ethyl Alcohol mg/dL Coronavirus (PCR) (Negative) Influenza Type A (PCR) (Negative) Influenza Type B (PCR) (Negative) RSV RNA Qual (PCR) (Negative) 05/22/20 05/22/20 05/22/20 Range/Units 12:26 12:26 12:26 WBC (4.8-10.8) X10*3/uL RBC (4.20-5.50) X10*6/uL Hgb (12.0-16.0) g/dl Hct (37-47) % MCV (80-98) fL MCH (27.0-33.0) pg MCHC (31.0-35.0) g/dl RDW (11.0-16.0) % Plt Count (160-400) X10*3/uL MPV (9.4-12.3) fL Immature Gran % (Auto) (0.0-0.4) % Neut % (Auto) (45-73) % Lymph % (Auto) (20-40) % Murray % (Auto) (2-11) % Eos % (Auto) (0-4) % Baso % (Auto) (0-2) % Lymph # (Auto) (1.2-4.9) X10*3/uL Murray # (Auto) (0.1-1.2) X10*3/uL Eos # (Auto) (0.0-0.4) X10*3/uL Baso # (Auto) (0.0-0.2) X10*3/uL Abs Immat Gran (auto) (0.00-0.03) X10*3/uL Absolute Neuts (auto) (2.0-8.3) X10*3/uL Absolute Nucleated RBC (0.0-0.012) X10*3/uL Nucleated RBC % (auto) (0.0-0.2) /100WBC PT (10.8-13.0) SEC INR (0.9-1.1) APTT (24.1-38.0) SEC Sodium (135-145) mmol/L Potassium (3.3-5.1) mmol/L Chloride (96-108) mmol/L Carbon Dioxide (22-29) mmol/L Anion Gap (12-20) BUN (9-16) mg/dL Creatinine (0.5-1.4) mg/dL Estim Creat Clear Calc Estimated GFR Random Glucose (60-115) mg/dL Lactic Acid 2.3 H* (0.5-2.0) mmol/L Lactic Acid Fup @ 2Hr (0.5-2.0) mmol/L Calcium (8.4-10.2) mg/dL Magnesium (1.6-2.6) mg/dL Ferritin (10-250) ng/mL Total Bilirubin (0.0-1.0) mg/dL AST (5-31) U/L ALT (0-31) U/L Alkaline Phosphatase (39-117) U/L Lactate Dehydrogenase (122-220) U/L Troponin I High Sens 8.6 (<3.5-17.0) ng/L C-Reactive Protein (< or = 0.50) mg/dL Total Protein (6.5-8.0) g/dL Albumin (3.5-5.0) g/dL Procalcitonin 0.14 ng/mL Ethyl Alcohol mg/dL Coronavirus (PCR) (Negative) Influenza Type A (PCR) (Negative) Influenza Type B (PCR) (Negative) RSV RNA Qual (PCR) (Negative) 05/22/20 05/22/20 05/22/20 Range/Units 12:26 12:26 12:26 WBC (4.8-10.8) X10*3/uL RBC (4.20-5.50) X10*6/uL Hgb (12.0-16.0) g/dl Hct (37-47) % MCV (80-98) fL MCH (27.0-33.0) pg MCHC (31.0-35.0) g/dl RDW (11.0-16.0) % Plt Count (160-400) X10*3/uL MPV (9.4-12.3) fL Immature Gran % (Auto) (0.0-0.4) % Neut % (Auto) (45-73) % Lymph % (Auto) (20-40) % Murray % (Auto) (2-11) % Eos % (Auto) (0-4) % Baso % (Auto) (0-2) % Lymph # (Auto) (1.2-4.9) X10*3/uL Murray # (Auto) (0.1-1.2) X10*3/uL Eos # (Auto) (0.0-0.4) X10*3/uL Baso # (Auto) (0.0-0.2) X10*3/uL Abs Immat Gran (auto) (0.00-0.03) X10*3/uL Absolute Neuts (auto) (2.0-8.3) X10*3/uL Absolute Nucleated RBC (0.0-0.012) X10*3/uL Nucleated RBC % (auto) (0.0-0.2) /100WBC PT (10.8-13.0) SEC INR (0.9-1.1) APTT (24.1-38.0) SEC Sodium (135-145) mmol/L Potassium (3.3-5.1) mmol/L Chloride (96-108) mmol/L Carbon Dioxide (22-29) mmol/L Anion Gap (12-20) BUN (9-16) mg/dL Creatinine (0.5-1.4) mg/dL Estim Creat Clear Calc Estimated GFR Random Glucose (60-115) mg/dL Lactic Acid (0.5-2.0) mmol/L Lactic Acid Fup @ 2Hr (0.5-2.0) mmol/L Calcium (8.4-10.2) mg/dL Magnesium (1.6-2.6) mg/dL Ferritin 49 (10-250) ng/mL Total Bilirubin (0.0-1.0) mg/dL AST (5-31) U/L ALT (0-31) U/L Alkaline Phosphatase (39-117) U/L Lactate Dehydrogenase (122-220) U/L Troponin I High Sens (<3.5-17.0) ng/L C-Reactive Protein 1.37 H (< or = 0.50) mg/dL Total Protein (6.5-8.0) g/dL Albumin (3.5-5.0) g/dL Procalcitonin ng/mL Ethyl Alcohol < 10 mg/dL Coronavirus (PCR) NEGATIVE (Negative) Influenza Type A (PCR) NEGATIVE (Negative) Influenza Type B (PCR) NEGATIVE (Negative) RSV RNA Qual (PCR) NEGATIVE (Negative) 05/22/20 Range/Units 19:34 WBC (4.8-10.8) X10*3/uL RBC (4.20-5.50) X10*6/uL Hgb (12.0-16.0) g/dl Hct (37-47) % MCV (80-98) fL MCH (27.0-33.0) pg MCHC (31.0-35.0) g/dl RDW (11.0-16.0) % Plt Count (160-400) X10*3/uL MPV (9.4-12.3) fL Immature Gran % (Auto) (0.0-0.4) % Neut % (Auto) (45-73) % Lymph % (Auto) (20-40) % Murray % (Auto) (2-11) % Eos % (Auto) (0-4) % Baso % (Auto) (0-2) % Lymph # (Auto) (1.2-4.9) X10*3/uL Murray # (Auto) (0.1-1.2) X10*3/uL Eos # (Auto) (0.0-0.4) X10*3/uL Baso # (Auto) (0.0-0.2) X10*3/uL Abs Immat Gran (auto) (0.00-0.03) X10*3/uL Absolute Neuts (auto) (2.0-8.3) X10*3/uL Absolute Nucleated RBC (0.0-0.012) X10*3/uL Nucleated RBC % (auto) (0.0-0.2) /100WBC PT (10.8-13.0) SEC INR (0.9-1.1) APTT (24.1-38.0) SEC Sodium (135-145) mmol/L Potassium (3.3-5.1) mmol/L Chloride (96-108) mmol/L Carbon Dioxide (22-29) mmol/L Anion Gap (12-20) BUN (9-16) mg/dL Creatinine (0.5-1.4) mg/dL Estim Creat Clear Calc Estimated GFR Random Glucose (60-115) mg/dL Lactic Acid (0.5-2.0) mmol/L Lactic Acid Fup @ 2Hr 1.2 (0.5-2.0) mmol/L Calcium (8.4-10.2) mg/dL Magnesium (1.6-2.6) mg/dL Ferritin (10-250) ng/mL Total Bilirubin (0.0-1.0) mg/dL AST (5-31) U/L ALT (0-31) U/L Alkaline Phosphatase (39-117) U/L Lactate Dehydrogenase (122-220) U/L Troponin I High Sens (<3.5-17.0) ng/L C-Reactive Protein (< or = 0.50) mg/dL Total Protein (6.5-8.0) g/dL Albumin (3.5-5.0) g/dL Procalcitonin ng/mL Ethyl Alcohol mg/dL Coronavirus (PCR) (Negative) Influenza Type A (PCR) (Negative) Influenza Type B (PCR) (Negative) RSV RNA Qual (PCR) (Negative) <Ron Ziegler NP - Last Filed: 05/22/20 21:26> Lab Results 05/22/20 05/22/20 05/22/20 Range/Units 12:26 12:26 12:26 WBC 8.7 (4.8-10.8) X10*3/uL RBC 3.30 L (4.20-5.50) X10*6/uL Hgb 9.2 L (12.0-16.0) g/dl Hct 31.3 L (37-47) % MCV 94.8 (80-98) fL MCH 27.9 (27.0-33.0) pg MCHC 29.4 L (31.0-35.0) g/dl RDW 13.2 (11.0-16.0) % Plt Count 372 D (160-400) X10*3/uL MPV 8.6 L (9.4-12.3) fL Immature Gran % (Auto) 0.3 (0.0-0.4) % Neut % (Auto) 78.0 H (45-73) % Lymph % (Auto) 9.1 L (20-40) % Murray % (Auto) 12.3 H (2-11) % Eos % (Auto) 0.0 (0-4) % Baso % (Auto) 0.3 (0-2) % Lymph # (Auto) 0.8 L (1.2-4.9) X10*3/uL Murray # (Auto) 1.1 (0.1-1.2) X10*3/uL Eos # (Auto) 0.0 (0.0-0.4) X10*3/uL Baso # (Auto) 0.0 (0.0-0.2) X10*3/uL Abs Immat Gran (auto) 0.03 (0.00-0.03) X10*3/uL Absolute Neuts (auto) 6.8 (2.0-8.3) X10*3/uL Absolute Nucleated RBC 0.000 (0.0-0.012) X10*3/uL Nucleated RBC % (auto) 0.0 (0.0-0.2) /100WBC PT 11.7 (10.8-13.0) SEC INR 1.0 (0.9-1.1) APTT 41.1 H (24.1-38.0) SEC Sodium 143 (135-145) mmol/L Potassium 5.2 H (3.3-5.1) mmol/L Chloride 102 (96-108) mmol/L Carbon Dioxide 31 H (22-29) mmol/L Anion Gap 15 (12-20) BUN 27 H (9-16) mg/dL Creatinine 1.94 H (0.5-1.4) mg/dL Estim Creat Clear Calc 34.9 Estimated GFR 27 Random Glucose 79 (60-115) mg/dL Lactic Acid (0.5-2.0) mmol/L Lactic Acid Fup @ 2Hr (0.5-2.0) mmol/L Calcium 9.2 (8.4-10.2) mg/dL Magnesium 1.7 (1.6-2.6) mg/dL Ferritin (10-250) ng/mL Total Bilirubin 0.4 (0.0-1.0) mg/dL AST 25 (5-31) U/L ALT 20 (0-31) U/L Alkaline Phosphatase 143 H (39-117) U/L Lactate Dehydrogenase 278 H (122-220) U/L Troponin I High Sens (<3.5-17.0) ng/L C-Reactive Protein (< or = 0.50) mg/dL Total Protein 6.8 (6.5-8.0) g/dL Albumin 4.2 (3.5-5.0) g/dL Procalcitonin ng/mL Ethyl Alcohol mg/dL Coronavirus (PCR) (Negative) Influenza Type A (PCR) (Negative) Influenza Type B (PCR) (Negative) RSV RNA Qual (PCR) (Negative) 05/22/20 05/22/20 05/22/20 Range/Units 12:26 12:26 12:26 WBC (4.8-10.8) X10*3/uL RBC (4.20-5.50) X10*6/uL Hgb (12.0-16.0) g/dl Hct (37-47) % MCV (80-98) fL MCH (27.0-33.0) pg MCHC (31.0-35.0) g/dl RDW (11.0-16.0) % Plt Count (160-400) X10*3/uL MPV (9.4-12.3) fL Immature Gran % (Auto) (0.0-0.4) % Neut % (Auto) (45-73) % Lymph % (Auto) (20-40) % Murray % (Auto) (2-11) % Eos % (Auto) (0-4) % Baso % (Auto) (0-2) % Lymph # (Auto) (1.2-4.9) X10*3/uL Murray # (Auto) (0.1-1.2) X10*3/uL Eos # (Auto) (0.0-0.4) X10*3/uL Baso # (Auto) (0.0-0.2) X10*3/uL Abs Immat Gran (auto) (0.00-0.03) X10*3/uL Absolute Neuts (auto) (2.0-8.3) X10*3/uL Absolute Nucleated RBC (0.0-0.012) X10*3/uL Nucleated RBC % (auto) (0.0-0.2) /100WBC PT (10.8-13.0) SEC INR (0.9-1.1) APTT (24.1-38.0) SEC Sodium (135-145) mmol/L Potassium (3.3-5.1) mmol/L Chloride (96-108) mmol/L Carbon Dioxide (22-29) mmol/L Anion Gap (12-20) BUN (9-16) mg/dL Creatinine (0.5-1.4) mg/dL Estim Creat Clear Calc Estimated GFR Random Glucose (60-115) mg/dL Lactic Acid 2.3 H* (0.5-2.0) mmol/L Lactic Acid Fup @ 2Hr (0.5-2.0) mmol/L Calcium (8.4-10.2) mg/dL Magnesium (1.6-2.6) mg/dL Ferritin (10-250) ng/mL Total Bilirubin (0.0-1.0) mg/dL AST (5-31) U/L ALT (0-31) U/L Alkaline Phosphatase (39-117) U/L Lactate Dehydrogenase (122-220) U/L Troponin I High Sens 8.6 (<3.5-17.0) ng/L C-Reactive Protein (< or = 0.50) mg/dL Total Protein (6.5-8.0) g/dL Albumin (3.5-5.0) g/dL Procalcitonin 0.14 ng/mL Ethyl Alcohol mg/dL Coronavirus (PCR) (Negative) Influenza Type A (PCR) (Negative) Influenza Type B (PCR) (Negative) RSV RNA Qual (PCR) (Negative) 05/22/20 05/22/20 05/22/20 Range/Units 12:26 12:26 12:26 WBC (4.8-10.8) X10*3/uL RBC (4.20-5.50) X10*6/uL Hgb (12.0-16.0) g/dl Hct (37-47) % MCV (80-98) fL MCH (27.0-33.0) pg MCHC (31.0-35.0) g/dl RDW (11.0-16.0) % Plt Count (160-400) X10*3/uL MPV (9.4-12.3) fL Immature Gran % (Auto) (0.0-0.4) % Neut % (Auto) (45-73) % Lymph % (Auto) (20-40) % Murray % (Auto) (2-11) % Eos % (Auto) (0-4) % Baso % (Auto) (0-2) % Lymph # (Auto) (1.2-4.9) X10*3/uL Murray # (Auto) (0.1-1.2) X10*3/uL Eos # (Auto) (0.0-0.4) X10*3/uL Baso # (Auto) (0.0-0.2) X10*3/uL Abs Immat Gran (auto) (0.00-0.03) X10*3/uL Absolute Neuts (auto) (2.0-8.3) X10*3/uL Absolute Nucleated RBC (0.0-0.012) X10*3/uL Nucleated RBC % (auto) (0.0-0.2) /100WBC PT (10.8-13.0) SEC INR (0.9-1.1) APTT (24.1-38.0) SEC Sodium (135-145) mmol/L Potassium (3.3-5.1) mmol/L Chloride (96-108) mmol/L Carbon Dioxide (22-29) mmol/L Anion Gap (12-20) BUN (9-16) mg/dL Creatinine (0.5-1.4) mg/dL Estim Creat Clear Calc Estimated GFR Random Glucose (60-115) mg/dL Lactic Acid (0.5-2.0) mmol/L Lactic Acid Fup @ 2Hr (0.5-2.0) mmol/L Calcium (8.4-10.2) mg/dL Magnesium (1.6-2.6) mg/dL Ferritin 49 (10-250) ng/mL Total Bilirubin (0.0-1.0) mg/dL AST (5-31) U/L ALT (0-31) U/L Alkaline Phosphatase (39-117) U/L Lactate Dehydrogenase (122-220) U/L Troponin I High Sens (<3.5-17.0) ng/L C-Reactive Protein 1.37 H (< or = 0.50) mg/dL Total Protein (6.5-8.0) g/dL Albumin (3.5-5.0) g/dL Procalcitonin ng/mL Ethyl Alcohol < 10 mg/dL Coronavirus (PCR) NEGATIVE (Negative) Influenza Type A (PCR) NEGATIVE (Negative) Influenza Type B (PCR) NEGATIVE (Negative) RSV RNA Qual (PCR) NEGATIVE (Negative) 05/22/20 Range/Units 19:34 WBC (4.8-10.8) X10*3/uL RBC (4.20-5.50) X10*6/uL Hgb (12.0-16.0) g/dl Hct (37-47) % MCV (80-98) fL MCH (27.0-33.0) pg MCHC (31.0-35.0) g/dl RDW (11.0-16.0) % Plt Count (160-400) X10*3/uL MPV (9.4-12.3) fL Immature Gran % (Auto) (0.0-0.4) % Neut % (Auto) (45-73) % Lymph % (Auto) (20-40) % Murray % (Auto) (2-11) % Eos % (Auto) (0-4) % Baso % (Auto) (0-2) % Lymph # (Auto) (1.2-4.9) X10*3/uL Murray # (Auto) (0.1-1.2) X10*3/uL Eos # (Auto) (0.0-0.4) X10*3/uL Baso # (Auto) (0.0-0.2) X10*3/uL Abs Immat Gran (auto) (0.00-0.03) X10*3/uL Absolute Neuts (auto) (2.0-8.3) X10*3/uL Absolute Nucleated RBC (0.0-0.012) X10*3/uL Nucleated RBC % (auto) (0.0-0.2) /100WBC PT (10.8-13.0) SEC INR (0.9-1.1) APTT (24.1-38.0) SEC Sodium (135-145) mmol/L Potassium (3.3-5.1) mmol/L Chloride (96-108) mmol/L Carbon Dioxide (22-29) mmol/L Anion Gap (12-20) BUN (9-16) mg/dL Creatinine (0.5-1.4) mg/dL Estim Creat Clear Calc Estimated GFR Random Glucose (60-115) mg/dL Lactic Acid (0.5-2.0) mmol/L Lactic Acid Fup @ 2Hr 1.2 (0.5-2.0) mmol/L Calcium (8.4-10.2) mg/dL Magnesium (1.6-2.6) mg/dL Ferritin (10-250) ng/mL Total Bilirubin (0.0-1.0) mg/dL AST (5-31) U/L ALT (0-31) U/L Alkaline Phosphatase (39-117) U/L Lactate Dehydrogenase (122-220) U/L Troponin I High Sens (<3.5-17.0) ng/L C-Reactive Protein (< or = 0.50) mg/dL Total Protein (6.5-8.0) g/dL Albumin (3.5-5.0) g/dL Procalcitonin ng/mL Ethyl Alcohol mg/dL Coronavirus (PCR) (Negative) Influenza Type A (PCR) (Negative) Influenza Type B (PCR) (Negative) RSV RNA Qual (PCR) (Negative) <Nichole Langford MD - Last Filed: 05/22/20 21:31> Imaging Data Rib and chest x-ray: Radiologist's impression: There is a mildly displaced right fifth lateral rib fracture, the edges are somewhat corticated, and age is indeterminate, favored to the subacute or chronic. There is a healed right anterior 12th rib fracture. The remainder of the bones are intact. There are streaky areas of atelectasis or scarring in the bilateral lower lobes, similar to the prior. No pleural effusion or pneumothorax. XR/XR ribs RT 2V IMPRESSION: Mildly displaced right fifth lateral rib fracture, of indeterminate age, but favored to be subacute or chronic. Healed right anterior 12th rib fracture. Streaky atelectasis versus scarring at the bilateral lower lobes. <Nichole Langford MD - Last Filed: 05/22/20 21:31> Head and cervical spine CT: Radiologist's impression: HEAD: No intracranial mass, hemorrhage, or midline shift is visualized. The ventricles and sulci are age-appropriate. No extra-axial collections are identified. The paranasal sinuses and mastoid air cells are well aerated. CERVICAL SPINE: There is reversal the normal lordotic curve of the cervical spine. This has progressed since prior study of January 2010 CT exam. There is a minimal anterior listhesis C4 on C5 due to facet joint disease. There is no fracture. There is multilevel degenerative spondylosis of disc height narrowing and vertebral endplate spurring and facet joint arthrosis which has progressed since CAT scan of 2009. Most significant disc height narrowing and endplate spurring at C6-C7. There are small bone erosions at the facet joints on the right C4-C5 and on the left at C3-C4. These are consistent with inflammatory arthrosis. No pre- or paravertebral soft tissue abnormality is identified. Limited assessment of the lung apices is unremarkable. CT/CT head/brain wo con IMPRESSION: 1. No acute intracranial pathology. 2. No CT evidence of acute cervical spine fracture or traumatic subluxation <Nichole Langford MD - Last Filed: 05/22/20 21:31> ECG Data Attestation: I personally reviewed and interpreted this ECG as follows: (Heart rate 116, significant artifact on EKG, no ST segment depression or elevation, no T-wave inversion, QTC 444) <Nichole Langford MD - Last Filed: 05/22/20 21:31> Discharge Plan Discharge Clinical Impression: Bilateral lower extremity edema, COPD (chronic obstructive pulmonary disease) Fracture of rib Qualifiers: Encounter type: initial encounter Rib fracture type: single rib Fracture type: closed Laterality: right Qualified Code(s): S22.31XA - Fracture of one rib, right side, initial encounter for closed fracture <Ron Ziegler NP - Last Filed: 05/22/20 21:26> Patient Disposition: Home, Self-Care <Ron Ziegler NP - Last Filed: 05/22/20 21:26> Instructions: Rib Fracture (ED), COPD (Chronic Obstructive Pulmonary Disease) (ED), Leg Edema (ED) <Ron Ziegler NP - Last Filed: 05/22/20 21:26> Additional Instructions: Please follow-up with your primary care physician tomorrow. If you have any worsening or new symptoms, please return to the emergency room or call 911 <Ron Ziegler NP - Last Filed: 05/22/20 21:26> Prescriptions: New torsemide 20 mg tablet 20 mg PO DAILY Qty: 4 RF: 0 azithromycin 250 mg tablet 250 mg PO DAILY 5 Days Qty: 5 RF: 0 prednisone 50 mg tablet 50 mg PO DAILY Qty: 4 RF: 0 tramadol 50 mg tablet 50 mg PO DAILY PRN (Reason: pain) Qty: 7 RF: 0 No Action aspirin 81 mg tablet,delayed release (DR/EC) 81 mg PO DAILY Qty: 30 RF: 0 atorvastatin 80 mg tablet 80 mg PO DAILY Qty: 90 RF: 1 isosorbide mononitrate 60 mg tablet extended release 24 hr 60 mg PO QAM Qty: 30 RF: 0 ipratropium-albuterol [Combivent Respimat] 20-100 mcg/actuation mist 1 puff inhalation QID Qty: 4 RF: 0 gabapentin 100 mg capsule 100 mg PO BID Qty: 60 RF: 0 budesonide-formoterol [Symbicort] 160-4.5 mcg/actuation HFA aerosol inhaler 2 puff PO Q12H Qty: 10.2 RF: 0 diltiazem HCl 120 mg capsule,extended release 24hr 1 cap PO DAILY RF: 0 loratadine 10 mg Tablet 10 mg PO DAILY RF: 0 albuterol sulfate 2.5 mg /3 mL (0.083 %) solution for nebulization 2.5 mg inhalation Q6H PRN (Reason: Shortness Of Breath) RF: 0 clonazepam [Klonopin] 1 mg tablet 1 mg PO TID RF: 0 cholecalciferol (vitamin D3) 1,250 mcg (50,000 unit) capsule 1,250 mcg PO TH@09 RF: 0 acetaminophen 325 mg Tablet 650 mg PO BID PRN (Reason: Pain, Mild) RF: 0 methadone 10 mg/mL concentrate 68 mg PO DAILY RF: 0 hydroxyzine pamoate 50 mg capsule 50 mg PO BEDTIME PRN (Reason: Sleep) RF: 0 bumetanide 2 mg tablet 2 mg PO BID RF: 0 <Ron Ziegler NP - Last Filed: 05/22/20 21:26>
[2020-05-22 12:35] LABS: MANUAL DIFF FLAG NO
[2020-05-22 12:38] LABS: Basophils Percent Auto 0.3 % (0-2); Hematocrit 31.3 % (37-47); Hemoglobin 9.2 g/dl (12.0-16.0); Imm Gran Abs Auto 0.03 X10*3/uL (0.00-0.03); Imm Gran Pct Auto 0.3 % (0.0-0.4); Lymphocytes Absolute Auto 0.8 X10*3/uL (1.2-4.9); Lymphocytes Percent Auto 9.1 % (20-40); Mean Corpuscular HGB Conc 29.4 g/dl (31.0-35.0); Mean Corpuscular Hemoglobin 27.9 pg (27.0-33.0); Mean Corpuscular Volume 94.8 fL (80-98); Mean Platelet Volume 8.6 fL (9.4-12.3); Monocytes Absolute Auto 1.1 X10*3/uL (0.1-1.2); Monocytes Percent Auto 12.3 % (2-11); Neutrophils Absolute Auto 6.8 X10*3/uL (2.0-8.3); Platelet Count 372 X10*3/uL (160-400); Red Cell Distribution Width 13.2 % (11.0-16.0); White Blood Count 8.7 X10*3/uL (4.8-10.8)
[2020-05-22 12:58] LABS: Lactic Acid 2.3 mmol/L (0.5-2.0); Prothrombin Time 11.7 SEC (10.8-13.0)
[2020-05-22 13:01] LABS: C Reactive Protein 1.37 mg/dL (< or = 0.50)
[2020-05-22 13:02] LABS: Alanine Aminotransferase 20 U/L (0-31); Albumin Level 4.2 g/dL (3.5-5.0); Alkaline Phosphatase 143 U/L (39-117); Anion Gap 15 (12-20); Aspartate Amino Transferase 25 U/L (5-31); Bilirubin Total 0.4 mg/dL (0.0-1.0); Blood Urea Nitrogen 27 mg/dL (9-16); Calcium 9.2 mg/dL (8.4-10.2); Carbon Dioxide 31 mmol/L (22-29); Chloride 102 mmol/L (96-108); Creatinine Clr Calc Pharmacy 34.9; Estimated Glomerular Filt Rate 27; Ethanol < 10 mg/dL; Glucose Random 79 mg/dL (60-115); Lactate Dehydrogenase 278 U/L (122-220); Magnesium 1.7 mg/dL (1.6-2.6); Partial Thromboplastin Time 41.1 SEC (24.1-38.0); Potassium 5.2 mmol/L (3.3-5.1); Sodium 143 mmol/L (135-145); Total Protein 6.8 g/dL (6.5-8.0)
--- NOTE | 2020-05-22 13:02 | PC.NURSE ---
PT SEEN AMBULATING WITH EVEN ESTRADA STEADY GAIT IN WAITING ROOM, PT AMBULATED TO VENDING MACHINES AND PURCHASED FOOD USING MACHINE W/OUT ANY DIFFICULTY, NO SHAKING/TREMORS NOTED.
[2020-05-22 13:06] LABS: Troponin-I High Sensitivity 8.6 ng/L (<3.5-17.0)
[2020-05-22 13:24] LABS: Ferritin 49 ng/mL (10-250); Procalcitonin 0.14 ng/mL
[2020-05-22 14:33] LABS: Reflex Lactate? Lactic Acid Added
[2020-05-22] MEDS: Albuterol/Iprat 2.5/0.5MG 3 ML AMPUL.NEB INHALE (17:32)
[2020-05-22 17:36] VITALS: PULSE 91; O2SAT 93
--- NOTE | 2020-05-22 17:46 | PC.NURSE ---
pt has been difficult to manage in a bolden bed. is uncomfortable in all positions, prefers wc, is able to ambulate with assist from family. reddness/warmth, swelling BLEs, LS coarse, rest trewatment is incomplete b/c coughing increases back pain. patient has not recieved fluids yet to repeat lactic held until after fluids infused.
[2020-05-22 17:48] VITALS: BP 142/83; PULSE 100; RESP 20; TEMP 36.9; O2SAT 94
[2020-05-22] MEDS: 0.9 % Sodium Chloride 1,000 ML 500 ML IVCONT (18:10)
[2020-05-22] MEDS: Morphine Sulfate 4 MG/ML CARTRIDGE IVPUSH (18:14)
[2020-05-22] MEDS: methylPREDNISolone Sod Succ 125 MG/2 ML VIAL IVPUSH (18:17)
[2020-05-22] MEDS: cefTRIAXone sodium 1 GM in 0.9 % Sodium Chloride 50 ML IV (18:21)
[2020-05-22] MEDS: Azithromycin 500 MG in 0.9 % Sodium Chloride 250 ML 125 MG IV (19:27)
--- NOTE | 2020-05-22 19:29 | PC.NURSE ---
REPORT TAKEN FROM EDIS MOLINA, FIRST CONTACT WITH PT. A&Ox4 SKIN PWD RESPIRATIONS EVEN UNLABORED, ROCKING BACK AND FORTH UNABLE TO SIT STILL REPORTING 8/10 BACK AND LEG PAIN. SECOND ABX HUNG AND INFUSING WITHOUT DIFFICULTY. REPEAT LACTIC BEING DRAWN POST FLUID ADMINISTRATION. MD NOTIFIED OF PAIN LEVEL. AWAITING NEW ORDERS. PT AWARE OF PLAN OF CARE.
[2020-05-22 19:54] VITALS: BP 137/61; PULSE 110; RESP 18; O2SAT 92
[2020-05-22 20:16] LABS: ~Lactic Acid-LAB USE ONLY 1.2 mmol/L (0.5-2.0)
[2020-05-22] MEDS: Morphine Sulfate 2 MG/ML CARTRIDGE IVPUSH (21:07)
--- NOTE | 2020-05-22 21:13 | PC.NURSE ---
PT MEDICATED PER MAR FOR LEG AND BACK PAIN. AWAITING RESULTS AND MD REEVAL. AWARE OF PLAN OF CARE.
[2020-05-22] MEDS: Torsemide 20 MG TABLET PO (21:39)
[2020-05-22] MEDS: Acetaminophen 325 MG TABLET 650 MG PO (22:22)
== END 2020-05-22 22:40 | disposition home or self-care (01) ==
PROVIDERS: Nurse Practitioner Primary Care; Emergency Provider Emergency Medicine; PCP Internal Medicine
DX: R60.0 Localized edema (principal); J44.9 Chronic obstructive pulmonary disease, unspecified; S22.31XA Fracture of one rib, right side, initial encounter for closed fracture; W01.0XXA Fall on same level from slipping, tripping and stumbling without subsequent striking against object, initial encounter; Z20.822 Contact with and (suspected) exposure to COVID-19; Y93.9 Activity, unspecified; Y92.039 Unspecified place in apartment as the place of occurrence of the external cause; Y99.9 Unspecified external cause status
CPT/HCPCS: 0241U; 36415; 70450; 71046; 71100; 72125; 80053; 80320; 82728; 83605; 83615; 83735; 84145; 84484; 85025; 85610; 85730; 86140; 87040; 93005; 94640; 96361; 96365; 96368; 96375; 96376; 99284; 99285; J0456; J0696; J2270; J2930

== ENCOUNTER 2020-06-04 11:35 | Outpatient (REF) | payer MEDICARE, MEDICAID, SELFPAY ==
--- NOTE | ~2020-06-04 | MM_ITS ---
EXAMINATION: MM SCREENING DIGITAL BREAST TOMOSYNTHESIS, BILATERAL CLINICAL INFORMATION: Screening. Asymptomatic. The lifetime risk of breast cancer based on the Tyrer-Cuzick Model is 11%. COMPARISON: Mammography: 07/04/2015 ([facility]) TECHNIQUE: Digital breast tomosynthesis is performed in both the craniocaudal and mediolateral oblique views along with computer-aided detection (CAD). Synthesized 2D images are generated from the tomosynthesis. FINDINGS: There are scattered areas of fibroglandular density (ACR BI-RADS breast composition Category b). The right breast is unremarkable. There is no mass or architectural abnormality. Neither breast shows abnormal calcifications. The bilateral axilla and skin contours are unremarkable. The left synthesized CC view demonstrates asymmetric density central breast more conspicuous when compared with outside 2-D exam 2015. The finding is less conspicuous on the 3D tomography sections, possibly suggesting summation artifact. Patient will be recalled for additional imaging to fully characterize. MM/MM tomosynthesis screening BI IMPRESSION: 1. Left: Asymmetric density central breast on CC view, possibly summation artifact 2. Right: No mammographic evidence of malignancy. ASSESSMENT: BI-RADS 0: Incomplete - Need Additional Imaging Evaluation RECOMMENDATION: 1. Additional views of the left breast (3-D spot CC, 3-D rolled CC x2). 2. Targeted ultrasound if warranted after review of the additional views. 3. Radiology department staff will contact the patient for additional imaging. This patient's information was entered into a reminder system with a target due date for their next mammogram.
== END 2020-06-04 11:36 | disposition home or self-care (01) ==
LOC: HO.MAMMO 11:35
PROVIDERS: Visit Provider Internal Medicine
DX: Z12.31 Encounter for screening mammogram for malignant neoplasm of breast (principal)
CPT/HCPCS: 77063; 77067

== ENCOUNTER 2020-06-17 10:16 | Outpatient (REF) | payer MEDICARE, MEDICAID, SELFPAY ==
[2020-06-17 12:01] LABS: Anion Gap 17 (12-20); Blood Urea Nitrogen 26 mg/dL (9-16); Calcium 9.2 mg/dL (8.4-10.2); Carbon Dioxide 34 mmol/L (22-29); Chloride 96 mmol/L (96-108); Estimated Glomerular Filt Rate 29; Potassium 4.1 mmol/L (3.3-5.1); Sodium 143 mmol/L (135-145)
== END 2020-06-17 10:17 | disposition home or self-care (01) ==
LOC: HO.HMGCLDS 10:16
PROVIDERS: PCP Internal Medicine; Visit Provider Internal Medicine Hypertension Specialist
DX: I12.9 Hypertensive chronic kidney disease with stage 1 through stage 4 chronic kidney disease, or unspecified chronic kidney disease (principal); N18.30 Chronic kidney disease, stage 3 unspecified
CPT/HCPCS: 36415; 80051; 82310; 82565; 84520

== ENCOUNTER 2020-06-21 10:00 | Outpatient (REF) | payer MEDICARE, MEDICAID, SELFPAY ==
--- NOTE | ~2020-06-21 | MM_ITS ---
EXAMINATION: MM DIAGNOSTIC DIGITAL BREAST TOMOSYNTHESIS, LEFT CLINICAL INFORMATION: Density central aspect on craniocaudal view COMPARISON: Mammography: June 04, 2020 and July 04, 2015 TECHNIQUE: Digital breast tomosynthesis is performed. 2D images are generated from the tomosynthesis. The following views are obtained: Spot compression craniocaudal views left breast also performed. FINDINGS: There are scattered areas of fibroglandular density (ACR BI-RADS breast composition Category b). Additional views show no significant mass, architectural abnormality, or abnormal calcifications. Results are provided to the patient at time of visit by the technologist. MM/MM tomosynthesis added views L IMPRESSION: No persistent left breast mass identified. ASSESSMENT: BI-RADS 1: Negative RECOMMENDATION: Routine annual mammography screening due in 12 months. This patient's information was entered into a reminder system with a target due date for their next mammogram.
== END 2020-06-21 10:01 | disposition home or self-care (01) ==
LOC: HO.MAMMO 10:00
PROVIDERS: Visit Provider Internal Medicine
DX: R92.2 Inconclusive mammogram (principal)
CPT/HCPCS: 77061; 77065

== ENCOUNTER 2020-07-11 09:17 | Outpatient (REF) | payer MEDICARE, MEDICAID, SELFPAY ==
[2020-07-11 12:12] LABS: Anion Gap 18 (12-20); Blood Urea Nitrogen 64 mg/dL (9-16); Calcium 9.3 mg/dL (8.4-10.2); Carbon Dioxide 33 mmol/L (22-29); Chloride 94 mmol/L (96-108); Estimated Glomerular Filt Rate 17; Glucose Random 77 mg/dL (60-115); Potassium 4.1 mmol/L (3.3-5.1); Sodium 141 mmol/L (135-145)
== END 2020-07-11 09:18 | disposition home or self-care (01) ==
LOC: HO.HMGCLDS 09:17
PROVIDERS: Psychiatry & Neurology Neurology; PCP Internal Medicine; Visit Provider Internal Medicine Hypertension Specialist
DX: I12.9 Hypertensive chronic kidney disease with stage 1 through stage 4 chronic kidney disease, or unspecified chronic kidney disease (principal); N18.31 Chronic kidney disease, stage 3a; L03.119 Cellulitis of unspecified part of limb
CPT/HCPCS: 36415; 80048

== ENCOUNTER 2020-08-27 11:43 | Outpatient (REF) | payer MEDICARE, MEDICAID, SELFPAY ==
[2020-08-29 22:55] LABS: HPV mRNA E6/E7 rflx Not Detected (Not Detected)
== END 2020-08-27 11:44 | disposition home or self-care (01) ==
LOC: HO.LAB 11:43
PROVIDERS: PCP Internal Medicine; Visit Provider Advanced Practice Midwife
DX: Z01.419 Encounter for gynecological examination (general) (routine) without abnormal findings (principal); Z11.51 Encounter for screening for human papillomavirus (HPV)
CPT/HCPCS: 87624; 88142; 99202

== ENCOUNTER 2020-09-04 13:39 | Outpatient (REF) | payer MEDICARE, MEDICAID, SELFPAY ==
[2020-09-04 14:49] LABS: Venous Blood Gas Refer to POC result
[2020-09-04 14:51] LABS: VBG Base Excess 15.9 mmol/L; VBG HCO3 42 mmol/L (22-26); VBG pCO2 58 mmHg; VBG pH 7.46 (7.32-7.43); VBG pO2 24 mmHg
[2020-09-04 14:52] LABS: VBG O2 % Saturation < 30.0 %
== END 2020-09-04 13:40 | disposition home or self-care (01) ==
LOC: HO.LAB 13:39
PROVIDERS: PCP Internal Medicine; Visit Provider Internal Medicine
DX: J44.9 Chronic obstructive pulmonary disease, unspecified (principal); J96.90 Respiratory failure, unspecified, unspecified whether with hypoxia or hypercapnia; J98.4 Other disorders of lung; G47.33 Obstructive sleep apnea (adult) (pediatric); C34.90 Malignant neoplasm of unspecified part of unspecified bronchus or lung
CPT/HCPCS: 36415; 82803; 99212

== ENCOUNTER 2020-09-05 09:25 | Outpatient (REF) | payer MEDICARE, MEDICAID, SELFPAY ==
[2020-09-05 11:52] LABS: Hematocrit 30.5 % (37-47); Hemoglobin 9.3 g/dl (12.0-16.0); Mean Corpuscular HGB Conc 30.5 g/dl (31.0-35.0); Mean Corpuscular Volume 85.2 fL (80-98); Mean Platelet Volume 9.2 fL (9.4-12.3); Platelet Count 488 X10*3/uL (160-400); Red Blood Count 3.58 X10*6/uL (4.20-5.50); Red Cell Distribution Width 13.2 % (11.0-16.0); White Blood Count 10.9 X10*3/uL (4.8-10.8)
[2020-09-05 13:04] LABS: Anion Gap 22 (12-20); Blood Urea Nitrogen 113 mg/dL (9-16); Calcium 9.5 mg/dL (8.4-10.2); Carbon Dioxide 33 mmol/L (22-29); Chloride 89 mmol/L (96-108); Estimated Glomerular Filt Rate 15; Glucose Random 130 mg/dL (60-115); Iron 26 mcg/dL (30-160); Percent Iron Saturation 9 % (15-50); Sodium 141 mmol/L (135-145); Total Iron Binding Capacity 304 mcg/dL (228-428); Unsaturated Iron Binding 278 ug/dL
== END 2020-09-05 09:26 | disposition home or self-care (01) ==
LOC: HO.HMGCLDS 09:25
PROVIDERS: PCP Internal Medicine; Visit Provider Internal Medicine Hypertension Specialist
DX: N18.4 Chronic kidney disease, stage 4 (severe) (principal)
CPT/HCPCS: 36415; 80048; 83540; 85027

== ENCOUNTER 2020-09-06 09:50 | Emergency (ER) | payer MEDICARE, MEDICAID, SELFPAY ==
--- NOTE | ~2020-09-06 | XR_ITS ---
EXAMINATION: LEFT LOWER LEG, LEFT ANKLE AND LEFT FOOT X-RAY CLINICAL INFORMATION: Redness. Rule out osteomyelitis. COMPARISON: Left foot x-ray June 2009 TECHNIQUE: 3 views of the left foot, 3 views of the left ankle and 3 views of the left lower leg FINDINGS: Left lower leg: Bone alignment is normal. There is cortical thickening of the distal shaft of the fibula suggestive of an old or healing fracture. No acute fracture is seen. Joint spaces are normal. Soft tissues are normal. Left ankle: Bone alignment is normal. There is cortical thickening of the distal shaft of the fibula again suggestive of an old or healing fracture and no acute fracture is seen. Ankle mortise is normal. Soft tissues are normal. Left foot: There is an recent appearing fracture of the proximal phalanx of the fifth toe. There is bony callus formation seen suggestive of a some evidence of healing. This appears intra-articular with the IP joint. There is an old healed fracture of the proximal phalanx of the fourth toe that appears unchanged from most recent exam April 2019. No other fracture is seen. Joint spaces are otherwise normal. Soft tissues are normal. XR/XR tibia fibula LT 2V IMPRESSION: Recent appearing healing fracture of the proximal phalanx of the fifth toe. Old healed fracture of the proximal phalanx of the fourth toe. Old healed fracture of the distal shaft of the fibula.
--- NOTE | ~2020-09-06 | US_ITS ---
EXAMINATION: US VENOUS ULTRASOUND WITH DOPPLER LOWER EXTREMITY, LEFT CLINICAL INFORMATION: Left lower leg pain. Rule out DVT. COMPARISON: None TECHNIQUE: Ultrasound of the deep veins is performed from the hip to the calf with compression sonography and color and pulse Doppler assessment. Spectral analysis with color-flow imaging is performed. FINDINGS: There is normal venous compression and respiratory variation and augmented flow. The visualized common femoral vein, superficial femoral vein, profunda femoral vein, popliteal vein, and the trifurcation region shows no evidence of deep venous thrombosis. There is no significant popliteal fossa cyst. If the patient's symptoms persist, followup ultrasound in 5 days 7 days might be of value to exclude proximal propagation from a non-visualized calf vein. US/US venous duplex LE LT IMPRESSION: No DVT demonstrated in the left lower extremity.
--- NOTE | ~2020-09-06 | XR_ITS ---
EXAMINATION: LEFT LOWER LEG, LEFT ANKLE AND LEFT FOOT X-RAY CLINICAL INFORMATION: Redness. Rule out osteomyelitis. COMPARISON: Left foot x-ray June 2009 TECHNIQUE: 3 views of the left foot, 3 views of the left ankle and 3 views of the left lower leg FINDINGS: Left lower leg: Bone alignment is normal. There is cortical thickening of the distal shaft of the fibula suggestive of an old or healing fracture. No acute fracture is seen. Joint spaces are normal. Soft tissues are normal. Left ankle: Bone alignment is normal. There is cortical thickening of the distal shaft of the fibula again suggestive of an old or healing fracture and no acute fracture is seen. Ankle mortise is normal. Soft tissues are normal. Left foot: There is an recent appearing fracture of the proximal phalanx of the fifth toe. There is bony callus formation seen suggestive of a some evidence of healing. This appears intra-articular with the IP joint. There is an old healed fracture of the proximal phalanx of the fourth toe that appears unchanged from most recent exam April 2019. No other fracture is seen. Joint spaces are otherwise normal. Soft tissues are normal. XR/XR ankle LT min 3V IMPRESSION: Recent appearing healing fracture of the proximal phalanx of the fifth toe. Old healed fracture of the proximal phalanx of the fourth toe. Old healed fracture of the distal shaft of the fibula.
--- NOTE | ~2020-09-06 | XR_ITS ---
EXAMINATION: LEFT LOWER LEG, LEFT ANKLE AND LEFT FOOT X-RAY CLINICAL INFORMATION: Redness. Rule out osteomyelitis. COMPARISON: Left foot x-ray June 2009 TECHNIQUE: 3 views of the left foot, 3 views of the left ankle and 3 views of the left lower leg FINDINGS: Left lower leg: Bone alignment is normal. There is cortical thickening of the distal shaft of the fibula suggestive of an old or healing fracture. No acute fracture is seen. Joint spaces are normal. Soft tissues are normal. Left ankle: Bone alignment is normal. There is cortical thickening of the distal shaft of the fibula again suggestive of an old or healing fracture and no acute fracture is seen. Ankle mortise is normal. Soft tissues are normal. Left foot: There is an recent appearing fracture of the proximal phalanx of the fifth toe. There is bony callus formation seen suggestive of a some evidence of healing. This appears intra-articular with the IP joint. There is an old healed fracture of the proximal phalanx of the fourth toe that appears unchanged from most recent exam April 2019. No other fracture is seen. Joint spaces are otherwise normal. Soft tissues are normal. XR/XR foot LT min 3V IMPRESSION: Recent appearing healing fracture of the proximal phalanx of the fifth toe. Old healed fracture of the proximal phalanx of the fourth toe. Old healed fracture of the distal shaft of the fibula.
[2020-09-06 10:07] VITALS: BP 123/82; PULSE 101; RESP 19; TEMP 35.3; BMI 43.4
--- NOTE | 2020-09-06 11:20 | ED.EXTPRO ---
HPI - Extremity Problem General Chief complaint: Extremity Problem Stated complaint: leg pain Time Seen by Provider: 09/06/20 11:19 History of Present Illness HPI Narrative: Patient complains of left leg redness and pain for 2 or 3 days similar to a prior cellulitis, no fever no chills no dizziness no headache no chest pain no shortness of breath Related Data Home Medications Medication Instructions Recorded Confirmed acetaminophen 325 mg tablet 650 mg PO BID PRN 04/25/20 08/27/20 albuterol sulfate 2.5 mg INHALATION Q6H PRN 04/25/20 08/27/20 clonazepam 1 mg tablet (Klonopin) 1 mg PO TID 04/25/20 08/27/20 diltiazem HCl 120 mg 1 cap PO DAILY 04/25/20 08/27/20 capsule,extended release 24 hr hydroxyzine pamoate 50 mg capsule 50 mg PO BEDTIME PRN 04/25/20 08/27/20 metolazone 2.5 mg tablet 2.5 mg PO 2XW 07/24/20 08/27/20 torsemide 20 mg tablet 40 mg PO BID tab 08/03/20 08/27/20 methadone 10 mg/mL oral concentrate 73 mg PO DAILY ml 09/04/20 Previous Rx's Medication Instructions Recorded aspirin 81 mg tablet,delayed 81 mg PO DAILY #30 tab 12/11/19 release isosorbide mononitrate 60 mg 60 mg PO QAM #30 tab 01/08/20 tablet,extended release 24 hr ipratropium 20 mcg-albuterol 100 1 puff INHALATION QID #4 g 04/01/20 mcg/actuation mist for inhalation (Combivent Respimat) loratadine 10 mg tablet 10 mg PO DAILY #30 tab 07/15/20 atorvastatin 80 mg tablet 80 mg PO DAILY #90 tab 07/17/20 Symbicort 160 mcg-4.5 2 puff PO Q12H #10.2 g NS 08/13/20 mcg/actuation HFA aerosol inhaler (budesonide-formoterol) gabapentin 100 mg capsule 100 mg PO BID #60 cap 08/16/20 bisacodyl 5 mg tablet,delayed 10 mg PO ONCE 1 Days #2 tab 09/04/20 release (Dulcolax (bisacodyl)) polyethylene glycol 3350 17 238 g PO ONCE 1 Days #238 g 09/04/20 gram/dose oral powder (Miralax) doxycycline hyclate 100 mg tablet 100 mg PO BID 7 Days #14 tab 09/06/20 Allergies Allergy/AdvReac Type Severity Reaction Status Date / Time ciprofloxacin [From Cipro] Allergy Unknown HIVES/SWELLING, Verified 09/04/20 14:00 THROAT CLOSES shellfish derived Allergy Unknown UNKNOWN Verified 09/04/20 14:00 [SHELLFISH DERIVED] NSAIDS AdvReac Unknown avoid cue Verified 09/04/20 14:00 to kidney disease Review of Systems Review of Systems: Positive for left leg redness and pain Negatives no fever no chills no dizziness no weakness no fainting no feeling faint no chest pain no shortness of breath no cough no abdominal pain no nausea or vomiting no back pain no numbness or weakness Yes all other systems are reviewed and are negative [facility] Past Medical History [facility] Narrative: Patient takes methadone daily for narcotic dependence and a recent visit yesterday to the doctor labs were done which shows worsening renal insufficiency with creatinine 3.25 Source: nursing notes reviewed Medical History Anemia in chronic kidney disease Breast cancer screening by mammogram COPD (chronic obstructive pulmonary disease) Dyslipidemia Infected lip laceration Kidney disease Lung cancer Multiple fractures of ribs LEO (obstructive sleep apnea) Respiratory failure Restrictive lung disease Tubular adenoma of colon Vitamin D deficiency Surgical History H/O colonoscopy History of hand surgery History of laparoscopy History of tubal ligation S/P ureteral stent placement Family History Family History Father Diabetes mellitus Mother Depression Mental health disorder Maternal Grandfather Colon cancer Sister No problems noted. Son No problems noted. Daughter No problems noted. Daughter No problems noted. Social History Social History Household Members: Spouse Housing: Other Alcohol intake: never Patient Tobacco Use Status: Former Tobacco user Years Smoked: 25 yrs Advance Directives: No Advance Directives Information Provided: No Patient : No service: No Current occupational status: disabled Physical Exam Vital Signs: Vital Signs: Last Vital Signs Temp 99.0 F 09/06/20 11:40 Pulse 86 09/06/20 14:35 Resp 18 09/06/20 14:35 BP 117/86 09/06/20 11:40 Pulse Ox 96 09/06/20 14:35 Oxygen Flow Rate 2 09/06/20 10:07 Body Mass Index 43.4 General appearance no acute distress, uncomfortable The head is normocephalic atraumatic The neck is supple The pharynx is clear Chest is clear to auscultation bilateral Heart no murmur Abdomen soft nontender Extremities full range of motion x4 The bilateral extremities have mild pitting edema, they are symmetrically swollen The left leg has a lateral lower leg area of redness that is warm and tender, there is also some posterior calf tenderness, there is full range of motion at the ankle and at the knee and the patient can ambulate using her cane Neuro no gross motor sensory deficits Course Course Course Narrative: Patient complaining of left leg increased redness and pain seems to have more redness around the lateral left ankle area than on the right so patient is treated for cellulitis Doppler showed good symmetric pulses in both feet, ultrasound was done that ruled out a DVT, x-rays was done without any evidence of osteomyelitis, doubt any joint infection because full range of motion in the left ankle with no restriction and no significant joint swelling, both legs have some edema which is chronic with this patient and they are symmetrical Patient was anxious initially on arrival with a an elevated pulse of 101 and 109, after Ativan her pulse was 86 and 98 In checking past records her pulse is always over 100 Patient is afebrile in no distress and is discharged on doxycycline antibiotic and will return in 2-3 days for recheck or any time if worse I gave the patient 1 oxycodone because of her pain, and she did get sleepy after this with no loss of vital signs and was easily aroused Discussion with her daughter who was with her revealed that the patient does have narcolepsy with frequent episodes of falling asleep After a brief period of time she woke up and was able to ambulate and was back to her normal level of alertness She did have bloods checked yesterday with a creatinine of 3.25, no repeat labs were done today, patient did not appear septic She is on methadone and no narcotic pain killer was prescribed Discharge Plan Discharge Clinical Impression: Cellulitis Patient Disposition: Home, Self-Care Additional Instructions: We are starting antibiotic for what looks like a cellulitis on the left leg Return to the ER any time for spreading redness, worse pain and swelling, fever any worse condition or any concerns Return to the ER in 2-3 days for a recheck to make sure medication is working Prescriptions: New doxycycline hyclate 100 mg tablet 100 mg PO BID 7 Days Qty: 14 RF: 0 No Action aspirin 81 mg tablet,delayed release (DR/EC) 81 mg PO DAILY Qty: 30 RF: 0 isosorbide mononitrate 60 mg tablet extended release 24 hr 60 mg PO QAM Qty: 30 RF: 0 ipratropium-albuterol [Combivent Respimat] 20-100 mcg/actuation mist 1 puff inhalation QID Qty: 4 RF: 0 loratadine 10 mg tablet 10 mg PO DAILY Qty: 30 RF: 3 atorvastatin 80 mg tablet 80 mg PO DAILY Qty: 90 RF: 0 budesonide-formoterol [Symbicort] 160-4.5 mcg/actuation HFA aerosol inhaler 2 puff PO Q12H Qty: 10.2 RF: 0 gabapentin 100 mg capsule 100 mg PO BID Qty: 60 RF: 0 bisacodyl [Dulcolax (bisacodyl)] 5 mg tablet,delayed release (DR/EC) 10 mg PO ONCE 1 Days Qty: 2 RF: 0 polyethylene glycol 3350 [Miralax] 17 gram/dose powder 238 g PO ONCE 1 Days Qty: 238 RF: 0 diltiazem HCl 120 mg capsule,extended release 24hr 1 cap PO DAILY RF: 0 albuterol sulfate 2.5 mg /3 mL (0.083 %) solution for nebulization 2.5 mg inhalation Q6H PRN (Reason: Shortness Of Breath) RF: 0 clonazepam [Klonopin] 1 mg tablet 1 mg PO TID RF: 0 acetaminophen 325 mg Tablet 650 mg PO BID PRN (Reason: Pain, Mild) RF: 0 hydroxyzine pamoate 50 mg capsule 50 mg PO BEDTIME PRN (Reason: Sleep) RF: 0 methadone 10 mg/mL concentrate 73 mg PO DAILY RF: 0 metolazone 2.5 mg tablet 2.5 mg PO 2XW RF: 0 torsemide 20 mg tablet 40 mg PO BID RF: 0 Interventions: ED Discharge Assessment Last Done: 09/06/20 15:05 Discharge Date/Time: 09/06/20 15:06
[2020-09-06 11:40] VITALS: BP 117/86; PULSE 109; RESP 20; TEMP 37.2
[2020-09-06] MEDS: oxyCODONE HCl Immed Release 5 MG TABLET PO (11:54)
[2020-09-06] MEDS: Acetaminophen 325 MG TABLET 975 MG PO (11:54)
--- NOTE | 2020-09-06 12:06 | PC.NURSE ---
Pt c/o LLE pain. area of redness in a band around her rashid, dry. no open wound. no drainage. Pt complaining of severe pain and requesting pain medication immediately upon arrival to bed. Pedal pulses confirmed by bedside doppler.
[2020-09-06] MEDS: LORazepam 1 MG TABLET PO (12:17)
[2020-09-06 13:13] VITALS: PULSE 98; O2SAT 98
--- NOTE | 2020-09-06 13:20 | PC.NURSE ---
daughter present. pt has returned from ultrasound and is sleeping but arousable to physical stimuli. pupils 3mm. daughter stating that pt has been using opiates and that others in the household use heroin.
--- NOTE | 2020-09-06 14:01 | PC.NURSE ---
continues to be sleepy. pupils now 5-6mm bilaterally. reactive equally. remains unable to stand safely.
[2020-09-06 14:35] VITALS: PULSE 86; RESP 18; O2SAT 96
== END 2020-09-06 15:06 | disposition home or self-care (01) ==
PROVIDERS: Emergency Provider Emergency Medicine; PCP Internal Medicine
DX: L03.116 Cellulitis of left lower limb (principal); M79.605 Pain in left leg; R60.0 Localized edema; I13.0 Hypertensive heart and chronic kidney disease with heart failure and stage 1 through stage 4 chronic kidney disease, or unspecified chronic kidney disease; I50.9 Heart failure, unspecified; N18.4 Chronic kidney disease, stage 4 (severe); D63.1 Anemia in chronic kidney disease; G47.419 Narcolepsy without cataplexy; F11.20 Opioid dependence, uncomplicated; Z85.118 Personal history of other malignant neoplasm of bronchus and lung
CPT/HCPCS: 73590; 73610; 73630; 93971; 99284

== ENCOUNTER 2020-09-12 14:21 | Outpatient (REF) | payer MEDICARE, MEDICAID, SELFPAY ==
[2020-09-12 14:55] LABS: MANUAL DIFF FLAG NO
[2020-09-12 14:59] LABS: Basophils Percent Auto 0.3 % (0-2); Hematocrit 30.2 % (37-47); Hemoglobin 9.2 g/dl (12.0-16.0); Imm Gran Abs Auto 0.06 X10*3/uL (0.00-0.03); Imm Gran Pct Auto 0.6 % (0.0-0.4); Mean Corpuscular HGB Conc 30.5 g/dl (31.0-35.0); Mean Corpuscular Hemoglobin 26.3 pg (27.0-33.0); Mean Corpuscular Volume 86.3 fL (80-98); Mean Platelet Volume 8.8 fL (9.4-12.3); Monocytes Absolute Auto 1.3 X10*3/uL (0.1-1.2); Monocytes Percent Auto 13.5 % (2-11); Neutrophils Absolute Auto 6.9 X10*3/uL (2.0-8.3); Neutrophils Percent Auto 74.6 % (45-73); Platelet Count 515 X10*3/uL (160-400); White Blood Count 9.3 X10*3/uL (4.8-10.8)
[2020-09-12 15:33] LABS: Unsaturated Iron Binding 266 ug/dL
[2020-09-12 15:40] LABS: Anion Gap 18 (12-20); Blood Urea Nitrogen 122 mg/dL (9-16); Carbon Dioxide 35 mmol/L (22-29); Chloride 94 mmol/L (96-108); Estimated Glomerular Filt Rate 14; Iron 22 mcg/dL (30-160); Percent Iron Saturation 8 % (15-50); Potassium 3.6 mmol/L (3.3-5.1); Sodium 143 mmol/L (135-145); Total Iron Binding Capacity 288 mcg/dL (228-428)
[2020-09-12 15:41] LABS: Ferritin 154 ng/mL (10-250)
== END 2020-09-12 14:22 | disposition home or self-care (01) ==
LOC: HO.LAB 14:21
PROVIDERS: PCP Internal Medicine; Visit Provider Internal Medicine Hypertension Specialist
DX: N18.4 Chronic kidney disease, stage 4 (severe) (principal)
CPT/HCPCS: 36415; 80051; 82310; 82565; 82728; 83540; 84520; 85025

== ENCOUNTER 2020-10-09 12:12 | Day surgery (SDC) | payer MEDICARE, MEDICAID, SELFPAY ==
[2020-10-04 11:33] VITALS: BMI 39.6
--- NOTE | 2020-10-08 14:37 | HO.ANESPROP2 ---
Documented by User: Cynthia Heaton NP 10/08/20 14:44 HPI - Anesthesia Eval Consult details Narrative: 60yo F for Colonoscopy Increase in BUN/Creat with 09/12 labs. GI office notified of need for renal clearance 10/03/20. Renal aware of labs (last seen 09/12/20) and ok to proceed. Case reviewed with Dr Jennifer PUCKETT Active Problems Active Problems: All Active Problems (Updated 10/04/20 @ 11:38 by Ghada Montgomery, RN) CKD (chronic kidney disease) stage 4, GFR 15-29 ml/min (Acute) Family history of colon cancer (Acute) Encounter for gynecological examination with Papanicolaou smear of cervix (Acute) Cellulitis (Acute) Infected lip laceration (Acute) Multiple fractures of ribs (Acute) Anemia in chronic kidney disease (Acute) Vitamin D deficiency (Acute) Tubular adenoma of colon (Acute) Dyslipidemia (Acute) Restrictive lung disease (Acute) Lung cancer (Acute) LEO (obstructive sleep apnea) (Acute) COPD (chronic obstructive pulmonary disease) (Acute) Past Medical History Medical History (Updated 10/04/20 @ 11:38 by Ghada Montgomery, RN) Anemia in chronic kidney disease Anxiety and depression Breast cancer screening by mammogram COPD (chronic obstructive pulmonary disease) COVID-19 vaccine series completed Dyslipidemia History of claustrophobia History of seizure HTN (hypertension) Hx of cardiac arrest Infected lip laceration Kidney disease Lung cancer Methadone maintenance therapy patient Multiple fractures of ribs O2 dependent LEO (obstructive sleep apnea) Respiratory failure Restrictive lung disease Tubular adenoma of colon Vitamin D deficiency Family History Family History (Reviewed 08/27/20 @ 12:33 by Isamar Gallagher [facility]) Father Diabetes mellitus Mother Depression Mental health disorder Maternal Grandfather Colon cancer Sister No problems noted. Son No problems noted. Daughter No problems noted. Daughter No problems noted. Surgical History Surgical History (Updated 10/04/20 @ 11:13 by Ghada Montgomery RN) H/O colonoscopy History of hand surgery History of laparoscopy History of tubal ligation S/P ureteral stent placement Social History Social History (Reviewed 08/27/20 @ 12:33 by Isamar Gallagher [facility]) Household Members: Spouse Housing: Other Are you a primary menagerie caretaker to a significant other at home: No Do you presently have visiting nurse or other home services: Yes Alcohol intake: never Patient Tobacco Use Status: Former Tobacco user Quit Date: 2011 Tobacco use type: Cigarette Years Smoked: 25 yrs Substance Use Type Other:: On Methadone Have you been hit, kicked, punched, or otherwise hurt by someone within the past year? If so, by whom?: No Are you DNR?: No Advance Directives: No Advance Directives Information Provided: No Advance Directives on File: No Recently lost weight without trying: No Eating poorly because of decreased appetite: No Nutrition Risks: No Nutritional Risk Patient : No service: No Current occupational status: disabled Meds Allergies Allergy/AdvReac Type Severity Reaction Status Date / Time ciprofloxacin [From Cipro] Allergy Unknown HIVES/SWELLING, Verified 10/04/20 11:13 THROAT CLOSES shellfish derived Allergy Unknown UNKNOWN Verified 10/04/20 11:13 [SHELLFISH DERIVED] NSAIDS AdvReac Unknown avoid cue Verified 10/04/20 11:13 to kidney disease Home Medications Medication Instructions Recorded Confirmed Last Taken Type acetaminophen 325 mg tablet 650 mg PO BID PRN 04/25/20 10/04/20 10/09/20 History albuterol sulfate 2.5 mg INHALATION Q6H PRN 04/25/20 10/04/20 10/09/20 History clonazepam 1 mg tablet (Klonopin) 1 mg PO TID 04/25/20 10/04/20 10/09/20 History diltiazem HCl 120 mg 1 cap PO DAILY 04/25/20 10/04/20 Unknown History capsule,extended release 24 hr hydroxyzine pamoate 50 mg capsule 50 mg PO BEDTIME PRN 04/25/20 10/04/20 Unknown History metolazone 2.5 mg tablet 2.5 mg PO 2XW 07/24/20 10/04/20 Unknown History torsemide 20 mg tablet 40 mg PO BID tab 08/03/20 10/04/20 Unknown History methadone 10 mg/mL oral concentrate 73 mg PO DAILY ml 09/04/20 10/04/20 Unknown History Exam Exam Date and Time: October 08, 2020 1437 Height,Weight and Vital Signs: Height 5 ft 1 in Weight 95.254 kg Pertinent Lab Results Pertinent Lab Results: Laboratory Tests 09/12/20 09/12/20 14:35 14:35 WBC 9.3 Hgb 9.2 L Hct 30.2 L Plt Count 515 H Sodium 143 Potassium 3.6 Chloride 94 L Carbon Dioxide 35 H BUN 122 H* Creatinine 3.32 H Narrative Narrative: EKG 05/2020 Vent. Rate : 116 BPM ? ? Atrial Rate : 116 BPM ?? P-R Int : 152 ms? QRS Dur : 074 ms ? ? QT Int : 320 ms ? ? ? P-R-T Axes : 061 050 042 degrees ?? QTc Int : 444 ms ? Artifact in tracing Sinus tachycardia Otherwise normal ECG When compared with ECG of 25-APR-2020 13:50, No significant changes seen Assessment and Plan Assessment Anesthesia Assessment: Chart Reviewed Documented by User: Nelida Berg MD 10/09/20 12:58 PMF Past Medical History Medical History (Updated 10/04/20 @ 11:38 by Ghada Montgomery, TRACY) Anemia in chronic kidney disease Anxiety and depression Breast cancer screening by mammogram COPD (chronic obstructive pulmonary disease) COVID-19 vaccine series completed Dyslipidemia History of claustrophobia History of seizure HTN (hypertension) Hx of cardiac arrest Infected lip laceration Kidney disease Lung cancer Methadone maintenance therapy patient Multiple fractures of ribs O2 dependent LEO (obstructive sleep apnea) Respiratory failure Restrictive lung disease Tubular adenoma of colon Vitamin D deficiency Family History Family History (Reviewed 08/27/20 @ 12:33 by Isamar Gallagher [facility]) Father Diabetes mellitus Mother Depression Mental health disorder Maternal Grandfather Colon cancer Sister No problems noted. Son No problems noted. Daughter No problems noted. Daughter No problems noted. Family history of problems with anesthesia: No Surgical History Surgical History (Updated 10/04/20 @ 11:13 by Ghada Montgomery RN) H/O colonoscopy History of hand surgery History of laparoscopy History of tubal ligation S/P ureteral stent placement History of Problems with Anesthesia: No Social History Social History Household Members: Spouse Housing: Other Are you a primary menagerie caretaker to a significant other at home: No Do you presently have visiting nurse or other home services: Yes Alcohol intake: never Patient Tobacco Use Status: Former Tobacco user Quit Date: 2011 Tobacco use type: Cigarette Years Smoked: 25 yrs Substance Use Type Other:: On Methadone Have you been hit, kicked, punched, or otherwise hurt by someone within the past year? If so, by whom?: No Are you DNR?: No Advance Directives: No Advance Directives Information Provided: No Advance Directives on File: No Recently lost weight without trying: No Eating poorly because of decreased appetite: No Nutrition Risks: No Nutritional Risk Patient : No service: No Current occupational status: disabled Meds Allergies Allergy/AdvReac Type Severity Reaction Status Date / Time ciprofloxacin [From Cipro] Allergy Unknown HIVES/SWELLING, Verified 10/04/20 11:13 THROAT CLOSES shellfish derived Allergy Unknown UNKNOWN Verified 10/04/20 11:13 [SHELLFISH DERIVED] NSAIDS AdvReac Unknown avoid cue Verified 10/04/20 11:13 to kidney disease Home Medications Medication Instructions Recorded Confirmed Last Taken Type acetaminophen 325 mg tablet 650 mg PO BID PRN 04/25/20 10/04/20 10/09/20 History albuterol sulfate 2.5 mg INHALATION Q6H PRN 04/25/20 10/04/20 10/09/20 History clonazepam 1 mg tablet (Klonopin) 1 mg PO TID 04/25/20 10/04/20 10/09/20 History diltiazem HCl 120 mg 1 cap PO DAILY 04/25/20 10/04/20 Unknown History capsule,extended release 24 hr hydroxyzine pamoate 50 mg capsule 50 mg PO BEDTIME PRN 04/25/20 10/04/20 Unknown History metolazone 2.5 mg tablet 2.5 mg PO 2XW 07/24/20 10/04/20 Unknown History torsemide 20 mg tablet 40 mg PO BID tab 08/03/20 10/04/20 Unknown History methadone 10 mg/mL oral concentrate 73 mg PO DAILY ml 09/04/20 10/04/20 Unknown History Exam Airway Mallampati Class: II (Missing teeth) TM Dist: >3cm Neck ROM: Full Heart: rrr Lungs: cta Assessment and Plan Assessment Anesthesia Assessment: Anesthesia Plan Discussed and Chart Reviewed Final Anesthetic Review Family History of Problems with Anesthesia: No History of Problems with Anesthesia: No NPO: Yes (Sip water with meds) ASA Class: III Final Preanesthetic Review: No Changes in Pt Med Stat, Meds/Allgs Chart Reviewed and Consent Obtained/Reviewed Patient Risk: Intermediate Procedure Risk: Intermediate Anesthetic Plan Anesthetic Plan: MAC: Disposition: Standard PACU
[2020-10-09 12:38] VITALS: BP 126/75; PULSE 94; RESP 18; TEMP 36.7; O2SAT 99
--- NOTE | 2020-10-09 12:45 | P.HPSUR_ITS ---
Pre-Procedural Eval Section A Date of Service: 10/09/20 Section B Chief Complaint: tubular adenoma of colon Relevant Family History (Specify if Yes): Yes Relevant Social History: None (ex smoker) Present Medications: see Short Stay Collaborative assessment Medical History: Significant History (Anemia in chronic kidney disease Anxiety and depression Breast cancer screening by mammogram COPD (chronic obstructive pulmonary disease) COVID-19 vaccine series completed Dyslipidemia History of claustrophobia History of seizure HTN (hypertension) Hx of cardiac arrest Infected lip laceration Kidney) History of Previous Operations: Relevant previous surgery/procedure and date(s) (H/O colonoscopy History of hand surgery History of laparoscopy History of tubal ligation S/P ureteral stent placement) Allergies: Allergies Allergy/AdvReac Type Severity Reaction Status Date / Time ciprofloxacin [From Cipro] Allergy Unknown HIVES/SWELLING, Verified 10/04/20 11:13 THROAT CLOSES shellfish derived Allergy Unknown UNKNOWN Verified 10/04/20 11:13 [SHELLFISH DERIVED] NSAIDS AdvReac Unknown avoid cue Verified 10/04/20 11:13 to kidney disease Review of Systems Sugical H&P ROS: Negative: Constitution, Cardiovascular, Respiratory, Neurol ogical, Psychiatric, Hem-Onc, Allergic/Immunologic, Gastrointestinal, Genitourinary, Musculoskeletal, Integumentary, Endocrine and Eyes/Ears/Nose/Throat Exam Surgical H&P Exam: Normal: HEENT, Normal: Heart, Normal: Extremities, Normal: Abdomen, Normal: Skin and Normal: Neurological and Significant Findings: Lungs (reduced breath sounds) Plan Diagnosis/Plan: Unchanged I have reviewed the history and physical and performed a pertinent physical examination on my patient. No changes have occurred unless specified.
--- NOTE | 2020-10-09 12:57 | PC.NURSE ---
ls clear diminshed pt on 2ln/c resp easy and reg sob with miminal exterion lower legs redeness noted swelling pt sts being treated by pcp with abx
[2020-10-09] MEDS: 0.9 % Sodium Chloride 1,000 ML 100 ML IVCONT (13:07)
--- NOTE | 2020-10-09 13:21 | PM.OP ---
Brief Operative Note Date of Service: 10/09/20 Pre-op diagnosis: hx of polyp, colon screening Post-op diagnosis: same Procedure: see op note Surgeon: Kentrell Queen MD Anesthesia: MAC Was an B2B Appointment Setter used for this Procedure?: No Estimated blood loss (mL): 0 Condition: stable Disposition: PACU
--- NOTE | 2020-10-09 13:22 | P.OP_ITS ---
Operative Note Operative Note Date of Service: 10/09/20 Narrative: Operative Information Procedure Description: Colonoscopy COLONOSCOPY Instrument: Olympus variable stiffness adult scope 190L Colonoscopy Monitoring: Vital signs and clinical assessment, continuous EKG monitoring, Pulse oximetry, Carbon Dioxide monitoring and blood pressure monitoring were done throughout the procedure. Colon withdrawal time was 9 minutes. Procedure: The patient was placed in the left lateral decubitis position and pre-procedure medications were administered. After a digital rectal examination of the ano-rectum, the video colonoscope was inserted into the rectum and advanced through the colon to the cecum/TI. The colonoscope was slowly withdrawn in a retrograde panoramic fashion and the colon mucosa was carefully examined including a retroflexed view of the rectum. Findings and interventions are described below. Procedure Difficulty:moderate Findings: Terminal Ileum-normal Cecum:normal Ascending Colon: normal Transverse Colon - 7-8 mm sessile polyp removed with forceps Descending Colon:normal Sigmoid Colon: distal segment with x 5 sessile polyps measuring 10-12 mm and removed with cold snare. One of these sites was bleeding so 3 clips used with chang ccessful hemostasis. Rectum: Retroflexion was normal Anorectum - normal Colon preparation: Armstrong Bowel Preparation Scale Right colon; 2 Transverse colon: 2 Left colon; 1 (0 = Unprepared colon segment with mucosa not seen due to solid stool that cannot be cleared. 1 = Portion of mucosa of the colon segment seen, but other areas of the colon segment not well seen due to staining, residual stool and/or opaque liquid. 2 = Minor amount of residual staining, small fragments of stool and/or opaque liquid, but mucosa of colon segment seen well. 3 = Entire mucosa of colon segment seen well with no residual staining, small fragments of stool or opaque liquid) Impression and Post Procedure Diagnosis: polyps Plan: High fiber diet leaflet Avoid straining at stool, epsom salts and sitz bath, anusol supps or cream Repeat Colonoscopy in 1-2 years or earlier if clinically indicated Above findings were reviewed with the patient and relevant handouts were provided if indicated.
[2020-10-09 14:04] VITALS: BP 88/49; PULSE 89; RESP 16; TEMP 36.6; O2SAT 99
[2020-10-09 14:19] VITALS: BP 96/60; PULSE 93; RESP 18; TEMP 36.4; O2SAT 97
[2020-10-09 14:41] VITALS: BP 91/61; PULSE 91; RESP 18; TEMP 36.4; O2SAT 98
== END 2020-10-09 15:20 | disposition home or self-care (01) ==
PROVIDERS: PCP Internal Medicine; Visit Provider Internal Medicine Gastroenterology
PROC: 0DJD8ZZ Inspection of Lower Intestinal Tract, Via Natural or Artificial Opening Endoscopic (ICD-10-PCS; CPT 45378; principal; 2020-10-09 13:20)
DX: Z12.11 Encounter for screening for malignant neoplasm of colon (principal); D12.3 Benign neoplasm of transverse colon; K63.5 Polyp of colon; Z86.010 Personal history of colon polyps; Z80.0 Family history of malignant neoplasm of digestive organs; N18.4 Chronic kidney disease, stage 4 (severe); J44.9 Chronic obstructive pulmonary disease, unspecified; Z85.118 Personal history of other malignant neoplasm of bronchus and lung; Z92.3 Personal history of irradiation
CPT/HCPCS: 45385; 45380; 88305

== ENCOUNTER → 2020-10-22 13:52 | Outpatient (BNVA) | payer MEDICARE, MEDICAID, SELFPAY | PROVIDERS: PCP Internal Medicine; Referring Provider Internal Medicine; Visit Provider Nurse Practitioner | DX: D12.6 Benign neoplasm of colon, unspecified (principal) | CPT/HCPCS: Q3014 ==

== ENCOUNTER 2020-10-29 09:55 | Outpatient (REF) | payer MEDICARE, MEDICAID, SELFPAY ==
[2020-10-29 11:38] LABS: MANUAL DIFF FLAG NO
[2020-10-29 11:48] LABS: Basophils Percent Auto 0.3 % (0-2); Hematocrit 30.2 % (37-47); Imm Gran Abs Auto 0.05 X10*3/uL (0.00-0.03); Imm Gran Pct Auto 0.5 % (0.0-0.4); Lymphocytes Absolute Auto 1.1 X10*3/uL (1.2-4.9); Lymphocytes Percent Auto 10.7 % (20-40); Mean Corpuscular HGB Conc 29.8 g/dl (31.0-35.0); Mean Corpuscular Hemoglobin 25.2 pg (27.0-33.0); Mean Corpuscular Volume 84.6 fL (80-98); Mean Platelet Volume 9.1 fL (9.4-12.3); Monocytes Absolute Auto 1.2 X10*3/uL (0.1-1.2); Monocytes Percent Auto 10.9 % (2-11); Neutrophils Absolute Auto 8.2 X10*3/uL (2.0-8.3); Neutrophils Percent Auto 77.6 % (45-73); Platelet Count 385 X10*3/uL (160-400); Red Blood Count 3.57 X10*6/uL (4.20-5.50); Red Cell Distribution Width 15.5 % (11.0-16.0); White Blood Count 10.6 X10*3/uL (4.8-10.8)
[2020-10-29 14:35] LABS: Alanine Aminotransferase 19 U/L (0-31); Albumin Level 4.3 g/dL (3.5-5.0); Alkaline Phosphatase 108 U/L (39-117); Anion Gap 18 (12-20); Aspartate Amino Transferase 25 U/L (5-31); Bilirubin Total 0.2 mg/dL (0.0-1.0); Blood Urea Nitrogen 89 mg/dL (9-16); Calcium 9.9 mg/dL (8.4-10.2); Carbon Dioxide 30 mmol/L (22-29); Chloride 96 mmol/L (96-108); Estimated Glomerular Filt Rate 11; Glucose Random 83 mg/dL (60-115); Potassium 4.2 mmol/L (3.3-5.1); Sodium 140 mmol/L (135-145); Total Protein 7.3 g/dL (6.5-8.0)
== END 2020-10-29 09:56 | disposition home or self-care (01) ==
LOC: HO.HMGCLDS 09:55
PROVIDERS: PCP Internal Medicine; Visit Provider Internal Medicine Hypertension Specialist
DX: N18.4 Chronic kidney disease, stage 4 (severe) (principal)
CPT/HCPCS: 36415; 80053; 85025

== ENCOUNTER → 2020-11-06 10:25 | Outpatient (BNVA) | payer MEDICARE, MEDICAID, SELFPAY | PROVIDERS: PCP Internal Medicine; Visit Provider Internal Medicine | DX: J44.9 Chronic obstructive pulmonary disease, unspecified (principal); J98.4 Other disorders of lung; G47.33 Obstructive sleep apnea (adult) (pediatric); C34.90 Malignant neoplasm of unspecified part of unspecified bronchus or lung | CPT/HCPCS: Q3014 ==

== ENCOUNTER 2020-11-16 11:23 | Outpatient (REF) | payer MEDICARE, MEDICAID, SELFPAY ==
[2020-11-16 13:35] LABS: Hematocrit 29.3 % (37-47); Hemoglobin 8.9 g/dl (12.0-16.0); Mean Corpuscular HGB Conc 30.4 g/dl (31.0-35.0); Mean Corpuscular Hemoglobin 26.5 pg (27.0-33.0); Mean Corpuscular Volume 87.2 fL (80-98); Mean Platelet Volume 9.4 fL (9.4-12.3); Platelet Count 340 X10*3/uL (160-400); Red Blood Count 3.36 X10*6/uL (4.20-5.50); Red Cell Distribution Width 17.4 % (11.0-16.0); White Blood Count 12.7 X10*3/uL (4.8-10.8)
[2020-11-16 13:53] LABS: Alanine Aminotransferase 9 U/L (0-31); Aspartate Amino Transferase 19 U/L (5-31); Cholesterol 178 mg/dL; HDL Cholesterol 34 mg/dL; LDL Cholesterol Calculated 112 mg/dl; Triglycerides 163 mg/dL
[2020-11-16 14:29] LABS: Alanine Aminotransferase 10 U/L (0-31); Albumin Level 4.2 g/dL (3.5-5.0); Alkaline Phosphatase 99 U/L (39-117); Anion Gap 18 (12-20); Aspartate Amino Transferase 18 U/L (5-31); Bilirubin Total 0.6 mg/dL (0.0-1.0); Carbon Dioxide 34 mmol/L (22-29); Chloride 92 mmol/L (96-108); Glucose Random 93 mg/dL (60-115); Potassium 3.6 mmol/L (3.3-5.1); Sodium 140 mmol/L (135-145); Total Protein 7.4 g/dL (6.5-8.0)
[2020-11-16 14:44] LABS: Blood Urea Nitrogen 105 mg/dL (9-16); Estimated Glomerular Filt Rate 14
== END 2020-11-16 11:24 | disposition home or self-care (01) ==
LOC: HO.HMGCLDS 11:23
PROVIDERS: PCP Internal Medicine; Visit Provider Internal Medicine Hypertension Specialist
DX: E78.5 Hyperlipidemia, unspecified (principal); N18.4 Chronic kidney disease, stage 4 (severe)
CPT/HCPCS: 36415; 80053; 80061; 84450; 84460; 85027

== ENCOUNTER 2020-11-24 09:44 | Emergency (ER) | payer MEDICARE, MEDICAID, SELFPAY ==
--- NOTE | ~2020-11-24 | XR_ITS ---
EXAMINATION: XR ELBOW, LEFT CLINICAL INFORMATION: Elbow pain COMPARISON: None TECHNIQUE: AP, lateral, and oblique views of the left elbow. FINDINGS: No fracture or dislocation. No joint effusion. Prominent soft tissue swelling overlying the olecranon process. No radiopaque foreign body. XR/XR elbow LT 2V IMPRESSION: Radiographic findings most consistent with olecranon bursitis.
[2020-11-24 09:45] VITALS: BP 121/70; PULSE 89; RESP 18; TEMP 36.6; O2SAT 97; BMI 39.6
--- NOTE | 2020-11-24 10:05 | ED_ITS ---
HPI - Extremity Problem General Chief complaint: Extremity Injury, Upper Stated complaint: l elbow swelling Time Seen by Provider: 11/24/20 09:59 Source: patient Mode of arrival: ambulatory Limitations: no limitations History of Present Illness HPI Narrative: 60-year-old female with left elbow swelling. She was seeing her doctor for her chronic kidney disease when he noted left elbow swollen she stated was tender and warm and there were some redness on Wednesday she had an appointment to see the orthopedic group but she did not make the appointment. Comes in today stating that the pain has gotten better the swelling has gone down there was no more redness but she was told to come to the ER. MD Complaint: extremity pain, extremity swelling, joint swelling and joint paint Related Data Home Medications Medication Instructions Recorded Confirmed acetaminophen 325 mg tablet 650 mg PO BID PRN 04/25/20 10/15/20 albuterol sulfate 2.5 mg INHALATION Q6H PRN 04/25/20 10/15/20 clonazepam 1 mg tablet (Klonopin) 1 mg PO TID 04/25/20 10/15/20 diltiazem HCl 120 mg 1 cap PO DAILY 04/25/20 10/15/20 capsule,extended release 24 hr hydroxyzine pamoate 50 mg capsule 50 mg PO BEDTIME PRN 04/25/20 10/15/20 metolazone 2.5 mg tablet 2.5 mg PO 2XW 07/24/20 10/15/20 torsemide 20 mg tablet 40 mg PO BID tab 08/03/20 10/15/20 methadone 10 mg/mL oral concentrate 73 mg PO DAILY ml 09/04/20 10/15/20 Previous Rx's Medication Instructions Recorded aspirin 81 mg tablet,delayed 81 mg PO DAILY #30 tab 12/11/19 release isosorbide mononitrate 60 mg 60 mg PO QAM #30 tab 01/08/20 tablet,extended release 24 hr ipratropium 20 mcg-albuterol 100 1 puff INHALATION QID #4 g 04/01/20 mcg/actuation mist for inhalation (Combivent Respimat) atorvastatin 80 mg tablet 80 mg PO DAILY #90 tab 07/17/20 Symbicort 160 mcg-4.5 2 puff PO Q12H #10.2 g NS 09/09/20 mcg/actuation HFA aerosol inhaler (budesonide-formoterol) gabapentin 100 mg capsule 100 mg PO BID #60 cap 10/30/20 loratadine 10 mg tablet 10 mg PO DAILY #30 tab 11/21/20 famotidine 20 mg tablet (Pepcid) 20 mg PO BID PRN #60 tab 11/24/20 prednisone 20 mg tablet 60 mg PO DAILY 5 Days #15 tab 11/24/20 Allergies Allergy/AdvReac Type Severity Reaction Status Date / Time ciprofloxacin [From Cipro] Allergy Unknown HIVES/SWELLING, Verified 11/06/20 10:28 THROAT CLOSES shellfish derived Allergy Unknown UNKNOWN Verified 11/06/20 10:28 [SHELLFISH DERIVED] NSAIDS AdvReac Unknown avoid cue Verified 11/06/20 10:28 to kidney disease Review of Systems Review of Systems: Review of systems: General: Patient denies any fever chills recent illness or falls Musculoskeletal: Denies back pain or body aches or other injuries HEENT: denies headache, runny nose, ear pain Respiratory: denies shortness of breath, cough Cardiovascular: no chest pain or palpitations : denies dysuria, frequency Abdomen: no nausea vomiting denies abdominal pain Extremities: Left elbow pain and swelling Skin: no diaphoresis Yes all other systems are reviewed and are negative PMFSH Past Medical History Medical History Anemia in chronic kidney disease Anxiety and depression Breast cancer screening by mammogram COPD (chronic obstructive pulmonary disease) COVID-19 vaccine series completed Dyslipidemia History of claustrophobia History of seizure HTN (hypertension) Hx of cardiac arrest Infected lip laceration Kidney disease Lung cancer Methadone maintenance therapy patient Multiple fractures of ribs O2 dependent LEO (obstructive sleep apnea) Respiratory failure Restrictive lung disease Tubular adenoma of colon Vitamin D deficiency Surgical History H/O colonoscopy History of hand surgery History of laparoscopy History of tubal ligation S/P ureteral stent placement Family History Family History Father Diabetes mellitus Mother Depression Mental health disorder Maternal Grandfather Colon cancer Sister No problems noted. Son No problems noted. Daughter No problems noted. Daughter No problems noted. Social History Social History Household Members: Spouse Housing: Other Are you a primary personal care home administrator to a significant other at home: No Do you presently have visiting nurse or other home services: Yes Alcohol intake: never Patient Tobacco Use Status: Former Tobacco user Quit Date: 2011 Tobacco use type: Cigarette Years Smoked: 25 yrs Advance Directives: No Advance Directives Information Provided: No Patient : No service: No Current occupational status: disabled Physical Exam Vital Signs: Vital Signs: Last Vital Signs Temp 97.9 F 11/24/20 09:45 Pulse 89 11/24/20 09:45 Resp 18 11/24/20 09:45 BP 121/70 11/24/20 09:45 Pulse Ox 97 11/24/20 09:45 Oxygen Flow Rate 2 11/24/20 09:45 Body Mass Index 39.6 General: Well-appearing well-nourished in no signs of distress HEENT: Normocephalic atraumatic Neck: No signs of JVD, no masses no tenderness or lymphadenopathy Cardiovascular: Regular rate and rhythm Respiratory: Clear to auscultation bilaterally Abdomen: Soft nontender no masses Extremities: Left elbow with no signs of cellulitis that is mildly warm definitely a bursitis Normal pedal pulses no signs of edema Skin: Dry warm no rashes Back: No tenderness full ROM MDM - Extremity (Nontraumatic) MDM Narrative Medical decision making narrative: Have bursitis of the left elbow and on his patient needs to have it drained put in on the concern is that could be more infected. I explained the patient focal compresses on their will start patient on prednisone. Although patient follow-up with orthopedics. Discharge Plan Discharge Clinical Impression: Bursitis of left elbow Patient Disposition: Home, Self-Care Instructions: Elbow Bursitis (ED) Additional Instructions: Please call to follow up. If you have any other concerns please return to the ED. Prescriptions: New prednisone 20 mg tablet 60 mg PO DAILY 5 Days Qty: 15 RF: 0 famotidine [Pepcid] 20 mg tablet 20 mg PO BID PRN (Reason: epigastric pain) Qty: 60 RF: 0 No Action aspirin 81 mg tablet,delayed release (DR/EC) 81 mg PO DAILY Qty: 30 RF: 0 isosorbide mononitrate 60 mg tablet extended release 24 hr 60 mg PO QAM Qty: 30 RF: 0 ipratropium-albuterol [Combivent Respimat] 20-100 mcg/actuation mist 1 puff inhalation QID Qty: 4 RF: 0 atorvastatin 80 mg tablet 80 mg PO DAILY Qty: 90 RF: 0 budesonide-formoterol [Symbicort] 160-4.5 mcg/actuation HFA aerosol inhaler 2 puff PO Q12H Qty: 10.2 RF: 3 gabapentin 100 mg capsule 100 mg PO BID Qty: 60 RF: 0 loratadine 10 mg tablet 10 mg PO DAILY Qty: 30 RF: 0 diltiazem HCl 120 mg capsule,extended release 24hr 1 cap PO DAILY RF: 0 albuterol sulfate 2.5 mg /3 mL (0.083 %) solution for nebulization 2.5 mg inhalation Q6H PRN (Reason: Shortness Of Breath) RF: 0 clonazepam [Klonopin] 1 mg tablet 1 mg PO TID RF: 0 acetaminophen 325 mg Tablet 650 mg PO BID PRN (Reason: Pain, Mild) RF: 0 hydroxyzine pamoate 50 mg capsule 50 mg PO BEDTIME PRN (Reason: Sleep) RF: 0 methadone 10 mg/mL concentrate 73 mg PO DAILY RF: 0 metolazone 2.5 mg tablet 2.5 mg PO 2XW RF: 0 torsemide 20 mg tablet 40 mg PO BID RF: 0
[2020-11-24] MEDS: predniSONE 20 MG TABLET 60 MG PO (10:18)
== END 2020-11-24 10:28 | disposition home or self-care (01) ==
PROVIDERS: Emergency Provider Student in an Organized Health Care Education/Training Program; PCP Internal Medicine
DX: M70.32 Other bursitis of elbow, left elbow (principal); Y93.9 Activity, unspecified; I12.9 Hypertensive chronic kidney disease with stage 1 through stage 4 chronic kidney disease, or unspecified chronic kidney disease; N18.9 Chronic kidney disease, unspecified; J44.9 Chronic obstructive pulmonary disease, unspecified; Z99.81 Dependence on supplemental oxygen
CPT/HCPCS: 73070; 99283; 99284

== ENCOUNTER 2021-02-20 14:54 | Outpatient (REF) | payer MEDICARE, MEDICAID, SELFPAY ==
--- NOTE | ~2021-02-20 | XR_ITS ---
EXAMINATION: BILATERAL ANKLE X-RAY CLINICAL INFORMATION: Pain and swelling COMPARISON: Right ankle x-ray from 2014 and left ankle x-ray August 2020 TECHNIQUE: 3 views of each ankle FINDINGS: Right: Bone alignment is normal. No acute fracture or dislocation is seen. There is evidence of an old healed fracture of the right distal fibular shaft. The ankle mortise is normal. There is diffuse soft tissue swelling. Left: bone alignment is normal. No acute fracture or dislocation is seen. There is evidence of an old healed fracture of the right distal fibular shaft. The ankle mortise is normal. There is diffuse soft tissue swelling. XR/XR ankle LT min 3V IMPRESSION: Old bilateral distal fibular shaft fractures. No acute fracture. Diffuse soft tissue swelling.
--- NOTE | ~2021-02-20 | XR_ITS ---
EXAMINATION: BILATERAL ANKLE X-RAY CLINICAL INFORMATION: Pain and swelling COMPARISON: Right ankle x-ray from 2014 and left ankle x-ray August 2020 TECHNIQUE: 3 views of each ankle FINDINGS: Right: Bone alignment is normal. No acute fracture or dislocation is seen. There is evidence of an old healed fracture of the right distal fibular shaft. The ankle mortise is normal. There is diffuse soft tissue swelling. Left: bone alignment is normal. No acute fracture or dislocation is seen. There is evidence of an old healed fracture of the right distal fibular shaft. The ankle mortise is normal. There is diffuse soft tissue swelling. XR/XR ankle RT min 3V IMPRESSION: Old bilateral distal fibular shaft fractures. No acute fracture. Diffuse soft tissue swelling.
== END 2021-02-20 14:55 | disposition home or self-care (01) ==
LOC: HO.HOSX 14:54
PROVIDERS: Visit Provider Physician Assistant
DX: M19.071 Primary osteoarthritis, right ankle and foot (principal); M19.072 Primary osteoarthritis, left ankle and foot; Z87.891 Personal history of nicotine dependence
CPT/HCPCS: 73610; 99202

== ENCOUNTER 2021-03-12 08:31 | Emergency (ER) | payer MEDICARE, MEDICAID, SELFPAY ==
[2021-03-12 08:35] VITALS: BP 119/62; PULSE 80; RESP 18; TEMP 36.7; O2SAT 94; BMI 37.8
--- NOTE | 2021-03-12 09:07 | ED_ITS ---
HPI - General Adult General Chief complaint: Dyspnea Stated complaint: SOB Time Seen by Provider: 03/12/21 08:56 Source: patient Mode of arrival: ambulatory Limitations: no limitations History of Present Illness HPI narrative: 60-year-old female who presents emergency department for evaluation of shortness of breath x5 days. The patient has a history of COPD and she states that she has had to use her inhaler and nebulizer more frequently and it has become less effective. She states that she has dyspnea on exertion. Patient has a cough only after she uses her nebulizer and she brings up thick white sputum with no blood in the sputum. She states she had a headache behind her eyes for the past 2 days this resolved. She denied chest pain, fever, chills, nausea, vomiting or abdominal pain. The patient has received 3 COVID vaccine. She denied myalgias, arthralgias, weakness, diarrhea, chest pain. Related Data Home Medications Medication Instructions Recorded Confirmed acetaminophen 325 mg tablet 650 mg PO BID PRN 04/25/20 10/15/20 albuterol sulfate 2.5 mg INHALATION Q6H PRN 04/25/20 10/15/20 clonazepam 1 mg tablet 1 mg PO TID 04/25/20 10/15/20 (Klonopin) diltiazem HCl 120 mg 1 cap PO DAILY 04/25/20 10/15/20 capsule,extended release 24 hr hydroxyzine pamoate 50 mg 50 mg PO BEDTIME PRN 04/25/20 10/15/20 capsule metolazone 2.5 mg tablet 2.5 mg PO 2XW 07/24/20 10/15/20 torsemide 20 mg tablet 40 mg PO BID tab 08/03/20 10/15/20 methadone 10 mg/mL oral 73 mg PO DAILY ml 09/04/20 10/15/20 concentrate Previous Rx's Medication Instructions Recorded aspirin 81 mg tablet,delayed 81 mg PO DAILY #30 tab 12/11/19 release isosorbide mononitrate 60 mg 60 mg PO QAM #30 tab 01/08/20 tablet,extended release 24 hr ipratropium 20 mcg-albuterol 100 1 puff INHALATION QID #4 g 04/01/20 mcg/actuation mist for inhalation (Combivent Respimat) atorvastatin 80 mg tablet 80 mg PO DAILY #90 tab 07/17/20 loratadine 10 mg tablet 10 mg PO DAILY #30 tab 11/21/20 famotidine 20 mg tablet (Pepcid) 20 mg PO BID PRN #60 tab 11/24/20 prednisone 20 mg tablet 60 mg PO DAILY 5 Days #15 tab 11/24/20 Symbicort 160 mcg-4.5 2 puff PO Q12H #10.2 g NS 02/27/21 mcg/actuation HFA aerosol inhaler (budesonide-formoterol) gabapentin 100 mg capsule 100 mg PO BID #60 cap 02/27/21 prednisone 20 mg tablet 60 mg PO DAILY 5 Days #15 tab 03/12/21 Allergies Allergy/AdvReac Type Severity Reaction Status Date / Time ciprofloxacin Allergy Unknown HIVES/SWELLING, Verified 02/20/21 15:09 [From Cipro] THROAT CLOSES shellfish derived Allergy Unknown UNKNOWN Verified 02/20/21 15:09 [SHELLFISH DERIVED] NSAIDS AdvReac Unknown avoid cue Verified 02/20/21 15:09 to kidney disease Review of Systems Verdana 4l Review of Systems: Yes all other systems are reviewed and Verdana 4d are negative PMFSH Past Medical History Medical History Anemia in chronic kidney disease Anxiety and depression Breast cancer screening by mammogram COPD (chronic obstructive pulmonary disease) COVID-19 vaccine series completed Dyslipidemia History of claustrophobia History of seizure HTN (hypertension) Hx of cardiac arrest Infected lip laceration Kidney disease Lung cancer Methadone maintenance therapy patient Multiple fractures of ribs O2 dependent LEO (obstructive sleep apnea) Respiratory failure Restrictive lung disease Tubular adenoma of colon Vitamin D deficiency Surgical History H/O colonoscopy History of hand surgery History of laparoscopy History of tubal ligation S/P ureteral stent placement Family History Family History Father Diabetes mellitus Mother Depression Mental health disorder Maternal Grandfather Colon cancer Sister No problems noted. Son No problems noted. Daughter No problems noted. Daughter No problems noted. Social History Social History Household Members: Spouse Housing: Other Are you a primary managed care manager to a significant other at home: No Do you presently have visiting nurse or other home services: Yes Alcohol intake: never Patient Tobacco Use Status: Former Tobacco user Quit Date: 2011 Tobacco use type: Cigarette Years Smoked: 25 yrs Advance Directives: No Advance Directives Information Provided: No service: No Current occupational status: disabled Physical Exam Verdana 4l Vital Signs: Verdana 4d Verdana 4d Vital Signs: Verdana 4d Verdana 4Bd Last Vital Signs Verdana 4d Metal Control Coordinator New 4d Metal Control Coordinator New 4d Temp 98.0 F 03/12/21 08:35 Metal Control Coordinator New 4d Pulse 80 03/12/21 08:35 Metal Control Coordinator New 4d Resp 18 03/12/21 08:35 BP 119/62 03/12/21 08:35 Pulse Ox 94 03/12/21 08:35 Oxygen Flow Rate 2 03/12/21 08:35 BMI result Body Mass Index 37.8 Const: General: cooperative, no acute distress, alert and awake Orientation/consciousness: oriented to person and oriented to place Limitations: no limitations HENMT: Head: Yes normal to inspection, Yes normocephalic and Yes atraumatic Ears: external ears normal Eyes: General: appearance normal, both eyes and all related structures Periorbital: periorbital findings normal Eyelids: Yes eyelids normal Conjunctivae: conjunctivae normal Sclerae: sclerae normal Corneas: corneas normal Pupils: Equal, round and reactive pupils present Direct Ophthalmoscopy: normal light reflex Neck: Neck: Yes normal visual inspection and Yes supple Lymphatic: no lymphadenopathy noted Chest: Chest palpation & inspection: normal inspection of the chest and normal palpation of entire chest wall Resp: Effort & Inspection: normal respiratory effort, audible wheezes and no respiratory distress Auscultation: clear to auscultation bilaterally, no crackles, no rales, no rhonchi and wheezes (At the end of respiration) Cardio: Rate: regular rate Rhythm: regular rhythm Heart sounds: S1 normal heart sound present, S2 normal heart sound present and no murmurs GI: Inspection: No distended Palpation (GI): Soft to palpation, nontender and no guarding Auscultation: normal bowel sounds : General: Yes no CVA tenderness Back/Spine/Pelvis: Back: no CVA tenderness Skin: General skin exam: no rashes or lesions noted Lesions: no lesions Rashes: no rashes Wounds: no wounds Neuro: General: oriented to person and oriented to place Cranial nerves: Yes CN's II-XII intact bilaterally and Yes Equal, round and reactive pupils present Cognition (Neuro): normal cognition Motor exam (neuro): 5/5 motor strength present throughout Extrem: General: Yes normal to inspection and Yes no pedal edema Psych: Appearance: grossly normal Mental Status: mental status grossly normal Speech and movement: Clear speech present Affect: normal affect Thought process: Normal thought process present Course Course Course Narrative: 60-year-old female with history of COPD times emergency department for evaluation of 5 days shortness of breath and dyspnea on exertion which was only minimally relieved by her albuterol and nebulizer treatments. Patient's vital signs were normal with an O2 saturation of 94% on 2 L nasal cannula which she wears chronically. Lung exam did reveal expiratory wheezing. At this time I do not think the patient has pneumonia or acute bronchitis that requires antibiotics. The patient was treated with prednisone 60 mg orally. She is to take prednisone 60 mg once a day for 5 days. She was given printed and verbal instructions and discharged home Discharge Plan Discharge Clinical Impression: Acute exacerbation of chronic obstructive pulmonary disease (COPD) Patient Disposition: Home, Self-Care Instructions: COPD (Chronic Obstructive Pulmonary Disease) (ED) Additional Instructions: At this time, I believe that you have an exacerbation of your COPD. I do not think that you have a pneumonia or a bronchitis that requires antibiotics. Take prednisone 20 mg pills, 3 pills once a day for 5 days. Follow-up with your doctor in 2 days. Please return to the emergency department if your symptoms get worse or if you develop any symptoms that are concerning to you. Prescriptions: New prednisone 20 mg tablet 60 mg PO DAILY 5 Days Qty: 15 0RF No Action aspirin 81 mg tablet,delayed release (DR/EC) 81 mg PO DAILY Qty: 30 0RF isosorbide mononitrate 60 mg tablet extended release 24 hr 60 mg PO QAM Qty: 30 0RF ipratropium-albuterol [Combivent Respimat] 20-100 mcg/actuation mist 1 puff inhalation QID Qty: 4 0RF atorvastatin 80 mg tablet 80 mg PO DAILY Qty: 90 0RF Rx Instructions: Please call to schedule a cardiology appointment for more refills. loratadine 10 mg tablet 10 mg PO DAILY Qty: 30 0RF budesonide-formoterol [Symbicort] 160-4.5 mcg/actuation HFA aerosol inhaler 2 puff PO Q12H Qty: 10.2 0RF gabapentin 100 mg capsule 100 mg PO BID Qty: 60 0RF diltiazem HCl 120 mg capsule,extended release 24hr 1 cap PO DAILY 0RF albuterol sulfate 2.5 mg /3 mL (0.083 %) solution for nebulization 2.5 mg inhalation Q6H PRN (Reason: Shortness Of Breath) 0RF clonazepam [Klonopin] 1 mg tablet 1 mg PO TID 0RF Rx Instructions: administer 30 minutes before bedtime acetaminophen 325 mg Tablet 650 mg PO BID PRN (Reason: Pain, Mild) 0RF hydroxyzine pamoate 50 mg capsule 50 mg PO BEDTIME PRN (Reason: Sleep) 0RF methadone 10 mg/mL concentrate 73 mg PO DAILY 0RF Label Comments: *DOSE NEEDS TO BE VERIFIED BY [facility] prednisone 20 mg tablet 60 mg PO DAILY 5 Days Qty: 15 0RF famotidine [Pepcid] 20 mg tablet 20 mg PO BID PRN (Reason: epigastric pain) Qty: 60 0RF metolazone 2.5 mg tablet 2.5 mg PO 2XW 0RF torsemide 20 mg tablet 40 mg PO BID 0RF
[2021-03-12] MEDS: predniSONE 20 MG TABLET 60 MG PO (09:32)
[2021-03-12 09:37] VITALS: BP 136/80; PULSE 85; RESP 16; TEMP 36.8; O2SAT 97
== END 2021-03-12 09:45 | disposition home or self-care (01) ==
PROVIDERS: Emergency Provider Emergency Medicine Emergency Medical Services; PCP Internal Medicine
DX: J44.1 Chronic obstructive pulmonary disease with (acute) exacerbation (principal); R06.02 Shortness of breath; F17.210 Nicotine dependence, cigarettes, uncomplicated; Z79.899 Other long term (current) drug therapy; Z71.6 Tobacco abuse counseling
CPT/HCPCS: 99282; 99283

== ENCOUNTER 2021-03-18 18:23 | Inpatient (IN) | payer MEDICARE, MEDICAID, SELFPAY ==
[2021-03-18] VITALS (15 sets, daily range): BP systolic 99–148; BP diastolic 60–124; PULSE 78–190; RESP 18–40; TEMP 32.1–38.2; O2SAT 80–100; BMI 51.5
--- NOTE | ~2021-03-18 | XR_ITS ---
EXAMINATION: XR CHEST CLINICAL INFORMATION: CHF COMPARISON: April 01, 2021 and March 28, 2021 TECHNIQUE: AP portable view of the chest was obtained. FINDINGS: Endotracheal tube tip is seen approximately 6 cm from the oswaldo. Enteric catheter seen traversing to the stomach. Right internal jugular central venous catheter seen with its tip in the mid right atrium. Left sided central venous catheter seen with its tip within the distal superior vena cava. Temperature probe seen in the location of the distal esophagus. There is no significant change in disease at both lung bases. There appears to be a small to moderate left pleural effusion which appears larger than on prior examinations. Heart normal size. No definite evidence of acute pulmonary edema. No pneumothorax. XR/XR chest 1V IMPRESSION: Increasing small left pleural effusion. Bibasilar disease without significant change. No evidence of airspace edema.
--- NOTE | ~2021-03-18 | NM_ITS ---
EXAMINATION: PULMONARY PERFUSION STUDY CLINICAL INFORMATION: COPD, lung cancer, rule out pulmonary embolism. Covid positive. COMPARISON: The report of a prior lung scan dated 02/08/2012 is available, but the images from that study are not available for review. A radiograph the chest dated 03/25/2021 is available for comparison. TECHNIQUE: Following the intravenous administration of 4.0 mCi Tc-99m MAA an 8-view perfusion study was performed using a dual detector gamma scintillation camera. No ventilation images were obtained. FINDINGS: Perfusion images: No segmental perfusion defects are present. A subsegmental perfusion defect is present predominantly laterally in the right lower lung field, probably posteriorly in the right lower lobe. No other perfusion abnormalities are present. The chest radiograph dated 03/25/2021 shows patchy airspace opacities in the right perihilar and middle/lower lobes which correspond to the subsegmental perfusion defect described above. NM/NM pul perfusion IMPRESSION: Very low probability of pulmonary embolism.
--- NOTE | ~2021-03-18 | MR_ITS ---
MRI OF THE BRAIN WITHOUT IV CONTRAST INDICATION: COVID patient with lack of awakening. COMPARISON: CT head 03/23/2021 TECHNIQUE: Multiplanar multisequence MR imaging of the brain was obtained without IV contrast. FINDINGS: There is no hydrocephalus, extra-axial surface collection, or herniation. Mild chronic microangiopathy. The major flow voids at the skull base are preserved. There is no acute infarct on diffusion-weighted imaging. There is no intracranial hemorrhage on the gradient recalled echo acquisition. The midline structures are normal. The cerebellar tonsils are normally positioned. The cerebellum and brainstem are normal. The craniocervical junction is normal. Osseous marrow signal intensity is homogenous. The visualized soft tissues are unremarkable. Fluid levels within the left greater than right sphenoid sinus. MR/MR head/brain wo con IMPRESSION: - No acute intracranial findings. No acute infarcts. - Mild chronic microangiopathy. - Fluid levels within the left greater than right sphenoid sinus.
--- NOTE | ~2021-03-18 | XR_ITS ---
EXAMINATION: XR CHEST CLINICAL INFORMATION: Shortness of breath. COMPARISON: Chest radiograph dated from 05/22/2020. TECHNIQUE: AP view of the chest was obtained. FINDINGS: Stable appearance of the cardiomediastinal silhouette. Chronic platelike opacities in the right middle lung. New hazy airspace opacities in the left lung base with a questionable small left pleural effusion versus pleural thickening. Increased interstitial prominence throughout. No pneumothorax. No acute osseous abnormalities. XR/XR chest 1V IMPRESSION: Increased interstitial prominence bilaterally and new more focal hazy opacities in the left lower lobe in which an atypical infectious or inflammatory process is suspected. Recommend correlation clinically and a follow-up study to ensure resolution after appropriate treatment.
--- NOTE | ~2021-03-18 | XR_ITS ---
EXAMINATION: XR CHEST CLINICAL INFORMATION: Line placement COMPARISON: CT from earlier today TECHNIQUE: Frontal view of the chest was obtained. FINDINGS: Endotracheal tube tip lies 3.6 cm above the oswaldo. Right IJ central line courses along the neck, with tip not included on the image. Lung volumes are symmetric. Redemonstrated regions of bibasilar opacity and somewhat streaky opacity in the right midlung, better characterized on recent CT. No appreciable pneumothorax. Possible small pleural effusions. The cardiomediastinal silhouette is stable. No acute osseous findings are seen. XR/XR chest 1V IMPRESSION: 1. Right IJ central line courses along the neck with tip not included on the image; repositioning recommended. 2. Redemonstrated regions of bibasilar and right midlung opacity, better characterized on recent CT. This critical result was discussed with Anupam Cobb NP on 03/19/2021 2:25 AM, and it was ascertained that the content and urgency of the report was understood at the time of direct communication.
--- NOTE | ~2021-03-18 | XR_ITS ---
EXAMINATION: XR CHEST CLINICAL INFORMATION: Hypoxia. COMPARISON: None TECHNIQUE: Frontal view of the chest was obtained. FINDINGS: The lungs are hypoexpanded with mild haziness in the left lung base likely effusion with underlying atelectasis. Heart size is normal. The pulmonary vascularity slightly prominent.. There is a right jugular catheter its tip in the distal SVC. The left subclavian catheter with its tip in the proximal SVC. Enteric tube tip is below diaphragm in the stomach. Tip of endotracheal tube is 2.9 cm above the oswaldo.. No gross bony abnormality seen. XR/XR chest 1V IMPRESSION: Suspect small left pleural effusion and/or underlying atelectasis. Mild increased pulmonary vascularity. Support lines and catheters are stable. No change from previous exam 04/03/2021 at 7:17 AM.
--- NOTE | ~2021-03-18 | XR_ITS ---
EXAMINATION: XR CHEST CLINICAL INFORMATION: CHF COMPARISON: 03/28/2021 TECHNIQUE: Frontal view of the chest was obtained. FINDINGS: Endotracheal tube terminates approximately 5 cm above the oswaldo. Right internal jugular central venous introducer terminates over the right atrium. Left internal jugular central venous catheter terminates at the superior cavoatrial junction. Enteric tube courses below the diaphragm. Stable cardiac mediastinal silhouette. No evidence of congestive heart failure. Streaky opacity at the left lung base and right midlung presumably represent subsegmental atelectasis. Trace left pleural effusion. XR/XR chest 1V IMPRESSION: No evidence of congestive heart failure. Stable exam.
--- NOTE | ~2021-03-18 | US_ITS ---
EXAMINATION: US RETROPERITONEAL LIMITED (RENAL ONLY) CLINICAL INFORMATION: Acute kidney injury. COMPARISON: CT abdomen pelvis 03/09/2013, renal ultrasound 06/13/2013 TECHNIQUE: Real-time imaging of the kidneys. FINDINGS: RIGHT KIDNEY: 8.8 x 4.6 x 4.4 cm (SAG x AP x TRV). Kidney measures slightly atrophic with a lobular renal contour. Renal cortical thickness is normal. No renal calculi or hydronephrosis. A 9-appearing 9 mm right renal cyst, no imaging follow-up recommended. LEFT KIDNEY: 6.2 x 4.1 x 3.8 cm (SAG x AP x TRV). Kidney is atrophic with a lobular contour. Renal cortical thickness is normal. No renal calculi or hydronephrosis. 2 probable left lower pole renal cysts measuring 1.6 cm and 1.9 cm. US/US renal BI IMPRESSION: The left greater than right kidneys are atrophic with lobular contours. No hydronephrosis or nephrolithiasis. Probable left lower pole renal cysts measuring up to 1.9 cm.
--- NOTE | ~2021-03-18 | CT_ITS ---
EXAMINATION: CT HEAD WITHOUT CONTRAST CLINICAL INFORMATION: Persistent encephalopathy. COMPARISON: CT head from 05/22/2020. TECHNIQUE: Contiguous axial imaging was performed from the skull base to vertex without intravenous administration of contrast. This CT examination was performed using dose optimization techniques as appropriate, variously including the following: *Automated exposure control. *Adjustment of mA and/or kV according to patient size (this includes techniques or standardized protocols for targeted exams where dose is matched to indication/reason for exam; i.e. extremities or head). *Use of iterative reconstruction technique. DLP: 665 mGy-cm FINDINGS: There is no evidence of acute intracranial hemorrhage or edematous territorial infarction. Scattered hypoattenuation in the periventricular and deep white matter are consistent with mild to moderate microangiopathy. Norman-white matter differentiation is preserved. Proportional prominence of the ventricles and sulcal spaces. No evidence for obstructive hydrocephalus. No abnormal mass effect or midline shift. No extra-axial fluid collections. Calcific atherosclerotic disease of the intracranial internal carotid and vertebral arteries. No hyperdense vessel sign. The patient is intubated with orogastric tube in place. No acute soft tissue or osseous abnormalities. Mild mucosal thickening of the paranasal sinuses. Moderate rightward nasal septal deviation. The mastoid air cells and middle ear cavities are clear. Advanced degenerative arthropathy of the temporomandibular joints. CT/CT head/brain wo con IMPRESSION: 1. No evidence of acute intracranial hemorrhage or edematous territorial infarction. 2. Mild to moderate underlying microangiopathy.
--- NOTE | ~2021-03-18 | XR_ITS ---
EXAMINATION: XR CHEST CLINICAL INFORMATION: Respiratory failure. COMPARISON: 03/25/2021 TECHNIQUE: Frontal view of the chest was obtained. FINDINGS: Endotracheal tube terminates 4 cm above the oswaldo. Enteric tube extends into the stomach. Left subclavian central venous catheter terminates over the mid SVC. Right internal jugular central venous catheter terminates over the right atrium. Cardiac leads overlie the chest. The lungs are well expanded. Hazy opacity at the left base with small left effusion. Right midlung linear atelectasis/scarring. No pneumothorax. The cardiomediastinal silhouette is within normal limits. XR/XR chest 1V IMPRESSION: Endotracheal tube terminates 4 cm above the oswaldo. Similar appearance of small left pleural effusion with airspace opacity.
--- NOTE | ~2021-03-18 | CT_ITS ---
EXAMINATION: CT CHEST WITHOUT CONTRAST CLINICAL INFORMATION: Hypoxia COMPARISON: Chest x-ray 03/18/2021 TECHNIQUE: Multidetector volumetric CT imaging of the chest was done. Axial MIP volume rendering provided. Sagittal and coronal reformatted images were obtained. This CT examination was performed using dose optimization techniques as appropriate, variously including the following: *Automated exposure control *Adjustment of mA and/or kV according to patient size (this includes techniques or standardized protocols for targeted exams where dose is matched to indication/reason for exam; i.e. extremities or head) *Use of iterative reconstruction technique DLP: 487 mGy-cm FINDINGS: LUNGS: There is mild to moderate upper lobe predominant emphysema. Regions of groundglass opacity are present in the left upper lobe and lower lobe. There is denser opacification towards the basilar left lower lobe. Regions of dense opacification are also present in the posterior right upper lobe and involving much of the right lower lobe. Atelectasis versus scarring is suspected along the right minor fissure. MEDIASTINUM: Thyroid gland appears somewhat heterogeneous. There are subcentimeter mediastinal lymph nodes within the range of normal variation. Cardiac size is within normal limits; no pericardial effusion. Coronary artery calcifications are present. Endotracheal tube tip lies approximately 2 cm above the oswaldo. PLEURA: No pneumothorax. Small pleural effusions are difficult to exclude in the absence of intravenous contrast. AXILLA: No lymphadenopathy. Tiny focus of soft tissue gas noted in the superficial upper right chest wall. UPPER ABDOMEN: Enteric tube courses into the stomach. OSSEOUS STRUCTURES: Chronic appearing fracture of the lateral right seventh rib. Degenerative endplate changes are noted in the thoracic spine. CT/CT chest wo con IMPRESSION: 1. Regions of dense opacification in the lower lobes, right greater than left, with additional areas of consolidation and groundglass opacity in the upper lobes as described above. Considerations include multifocal pneumonia and/or sequelae of aspiration. 2. Upper lobe predominant emphysema. Fleischner guidelines were followed.
--- NOTE | ~2021-03-18 | US_ITS ---
EXAMINATION: US VENOUS WITH DOPPLER UPPER EXTREMITY, BILATERAL CLINICAL INFORMATION: Swelling COMPARISON: None TECHNIQUE: Ultrasound of bilateral upper extremity is performed using compression sonography and color and pulse Doppler flow with assessment of augmentation of flow. There is also imaging and Doppler assessment of the jugular and subclavian veins. Spectral analysis with color-flow imaging is performed. FINDINGS: Respiratory variation, normal compression, and augmented flow are noted throughout the upper extremity including the axillary, brachial, cubital, and radial and ulnar veins. There is normal flow in the internal jugular and subclavian veins. There is no visible deep or superficial thrombophlebitis. The right internal jugular vein was not visualized due to intubation tubing If the patient's symptoms progress, a followup ultrasound in 5 -7 days might be of value to exclude proximal propagation from a nonvisualized distal arm vein. US/US venous duplex UE BI IMPRESSION: No DVT demonstrated in the bilateral upper extremities
--- NOTE | ~2021-03-18 | XR_ITS ---
EXAMINATION: XR CHEST CLINICAL INFORMATION: Status post ETT placement. COMPARISON: None TECHNIQUE: Frontal view of the chest was obtained. FINDINGS: The lungs are well-expanded with patchy atelectatic changes in the right middle lobe. Heart size and pulmonary vascularity is normal. Position of endotracheal tube is 2.1 cm above the oswaldo. There is a right central line with its tip directed upwards not in the [id number]. There is moderate dextroscoliosis dorsal spine. XR/XR chest 1V IMPRESSION: There is a right central venous catheter with its tip directed cephalad and not in the [id number]. Recommend repositioning There is an endotracheal tube with its tip approximately 2.1 cm above the oswaldo. Right middle lobe atelectasis. No major change compared to earlier exam 03/23/2019 at 1:38 PM
--- NOTE | ~2021-03-18 | US_ITS ---
EXAMINATION: US VENOUS ULTRASOUND WITH DOPPLER LOWER EXTREMITY, BILATERAL CLINICAL INFORMATION: Swelling. COMPARISON: 03/19/2021. TECHNIQUE: Ultrasound of the deep veins is performed from the hip to the calf with compression sonography and color and pulse Doppler assessment. Spectral analysis with color-flow imaging is performed. FINDINGS: RIGHT: There is normal venous compression and respiratory variation and augmented flow. The visualized common femoral vein, superficial femoral vein, profunda femoral vein, popliteal vein, and posterior tibialis vein shows no evidence of deep venous thrombosis. The peroneal vein was not well visualized due to overlying subcutaneous edema. There is no significant popliteal fossa cyst. LEFT: There is normal venous compression and respiratory variation and augmented flow. The visualized common femoral vein, superficial femoral vein, profunda femoral vein, popliteal vein, and posterior tibialis vein shows no evidence of deep venous thrombosis. The peroneal vein was not visualized due to overlying subcutaneous edema. There is no significant popliteal fossa cyst. If the patient's symptoms persist, followup ultrasound in 5 days 7 days might be of value to exclude proximal propagation from a non-visualized calf vein. US/US venous duplex LE BI IMPRESSION: No DVT demonstrated in the bilateral lower extremities with the caveat of suboptimal evaluation of the peroneal veins as above.
--- NOTE | ~2021-03-18 | XR_ITS ---
EXAMINATION: XR CHEST CLINICAL INFORMATION: Status post ET tube placement. COMPARISON: April 04, 2021 TECHNIQUE: AP portable view of the chest was obtained. FINDINGS: Endotracheal tube tip is seen approximately 3 cm above the oswaldo. Enteric catheter seen traversing to stomach. Right internal jugular central venous catheter seen with tip within the superior right atrium. Left internal jugular central venous catheter seen with its tip within the distal superior vena cava. There is again noted to be scarring along the horizontal fissure. There is some left base disease with what appears to be small effusion. No pneumothorax is evident. Heart normal size. No evidence of pulmonary edema. XR/XR chest 1V IMPRESSION: Endotracheal tube tip 3 cm above the oswaldo.
--- NOTE | ~2021-03-18 | US_ITS ---
EXAMINATION: US VENOUS ULTRASOUND WITH DOPPLER LOWER EXTREMITY, BILATERAL CLINICAL INFORMATION: Low grade fever/tachycardia. COMPARISON: None TECHNIQUE: Ultrasound of the deep veins is performed from the hip to the calf with compression sonography and color and pulse Doppler assessment. Spectral analysis with color-flow imaging is performed. FINDINGS: RIGHT: There is normal venous compression and respiratory variation and augmented flow. The visualized common femoral vein, superficial femoral vein, profunda femoral vein, and the trifurcation region shows no evidence of deep venous thrombosis. Peroneal vein is not visualized. The popliteal vein is suboptimally visualized. There is no significant popliteal fossa cyst. LEFT: There is normal venous compression and respiratory variation and augmented flow. The visualized common femoral vein, superficial femoral vein, profunda femoral vein, popliteal vein, and the trifurcation region shows no evidence of deep venous thrombosis. There is no significant popliteal fossa cyst. The peroneal vein is not well visualized If the patient's symptoms persist, followup ultrasound in 5 days 7 days might be of value to exclude proximal propagation from a non-visualized calf vein. US/US venous duplex LE BI IMPRESSION: No DVT demonstrated in the bilateral lower extremity.
--- NOTE | ~2021-03-18 | XR_ITS ---
EXAMINATION: XR CHEST CLINICAL INFORMATION: Central line placement COMPARISON: Previous chest x-ray 03/23/2021 TECHNIQUE: Frontal view of the chest was obtained. FINDINGS: The cardiac and mediastinal contours are stable. There is an endotracheal tube with tip 4 cm above the oswaldo. There is a new left jugular line with tip projecting over the SVC. There is a right jugular line projects superiorly toward the head. The tip is not seen. This appears unchanged from yesterday's exam. There is atelectasis or airspace disease seen in the right midlung. This is unchanged from previous exams. The lungs are otherwise clear. There is no pleural effusion or pneumothorax. Bony structures are unremarkable. XR/XR chest 1V IMPRESSION: New left jugular line tip projects over SVC. No pneumothorax. Right jugular line tip projects cephalad toward the head, tip not seen. This is unchanged from yesterday's exam. Satisfactory position of endotracheal tube. Right middle lobe atelectasis or infiltrate similar to yesterday's exam.
--- NOTE | ~2021-03-18 | XR_ITS ---
EXAMINATION: XR CHEST CLINICAL INFORMATION: Hypoxia COMPARISON: 04/09/2021 TECHNIQUE: Frontal view of the chest was obtained. FINDINGS: Redemonstrated tracheostomy tube. Right IJ central line tip lies in the region of the distal SVC. Left IJ central line tip lies in the region of the upper SVC. Lung volumes are symmetric. Mildly improved right perihilar aeration. Curvilinear atelectasis is suspected in the right midlung. Trace left pleural effusion is noted. No appreciable pneumothorax. The cardiomediastinal silhouette is stable. No acute osseous findings are seen. XR/XR chest 1V IMPRESSION: Mildly improved right perihilar aeration with residual curvilinear atelectasis. Trace left pleural effusion.
--- NOTE | ~2021-03-18 | XR_ITS ---
EXAMINATION: XR CHEST CLINICAL INFORMATION: Right hemodialysis catheter placement. COMPARISON: Chest radiograph dated from 03/24/2021. TECHNIQUE: AP view of the chest was obtained. FINDINGS: A right IJ hemodialysis catheter terminates within the proximal right atrium. A left IJ CVC terminates at the level of the cavoatrial junction, unchanged. The endotracheal tube terminates at 3.7 cm above the oswaldo. Other nonspecific tubing curves in the left supraclavicular region, correlate with physical examination. EKG wires overlie the patient. Stable appearance of the cardiomediastinal silhouette. Increased patchy airspace opacities in the lung bases with also new small left pleural effusion. Similar area of architectural distortion in the right middle/lower lobe. No pneumothorax. No acute osseous abnormalities. XR/XR chest 1V IMPRESSION: 1. Endotracheal tube terminates at 3.7 cm above the oswaldo. 2. Right IJ hemodialysis catheter terminates within the proximal right atrium. No postprocedural pneumothorax. 3. Worsening pulmonary aeration in the lower lungs with increased patchy airspace opacities and a new small left pleural effusion.
--- NOTE | ~2021-03-18 | XR_ITS ---
EXAMINATION: XR CHEST CLINICAL INFORMATION: Status post enteric tube placement. COMPARISON: Chest radiograph dated from 03/24/2021. TECHNIQUE: AP view of the chest was obtained. FINDINGS: Endotracheal tube terminates at 3.6 cm above the oswaldo. An enteric tube terminates in satisfactory positioning within the stomach body. A large bore right IJ likely hemodialysis catheter terminates in the proximal right atrium. A left-sided PICC line terminates at the level of the cavoatrial junction. EKG wires overlie the chest. Stable appearance of the cardiomediastinal silhouette. Patchy airspace opacities in the right perihilar region and right middle/lower lobes are increased. There are also new patchy airspace opacities in the left lower lobe. Suspect a small left pleural effusion, new. No pneumothorax. No acute osseous abnormalities. XR/XR chest 1V IMPRESSION: Endotracheal tube terminates at 3.6 cm above the oswaldo. The enteric tube terminates within the stomach. Increased/new patchy airspace opacities in the lower lungs. New small left pleural effusion.
--- NOTE | ~2021-03-18 | XR_ITS ---
EXAMINATION: XR CHEST CLINICAL INFORMATION: Fever, hypotension, rule out worsening pneumonia or aspiration COMPARISON: 04/14/2021 TECHNIQUE: Frontal view of the chest was obtained. FINDINGS: Left IJ central line tip lies in the region of the mid SVC. Lung volumes are symmetric. Persistent curvilinear opacity in the right perihilar region. Trace left pleural effusion with minimal adjacent basilar haziness redemonstrated. No new consolidation is seen. No evidence of pneumothorax or overt pulmonary edema. The cardiomediastinal silhouette is stable. No acute osseous findings are seen. XR/XR chest 1V IMPRESSION: Similar appearance to 04/14/2021 with curvilinear right midlung opacity and trace left pleural effusion with adjacent haziness.
--- NOTE | 2021-03-18 18:43 | ECG_ITS ---
Test Reason : ALTERED MENTAL STATUS Blood Pressure : / mmHG Vent. Rate : 102 BPM Atrial Rate : 102 BPM P-R Int : 132 ms QRS Dur : 088 ms QT Int : 372 ms P-R-T Axes : 075 053 030 degrees QTc Int : 484 ms Sinus tachycardia nonspecific st changes Abnormal ECG When compared with ECG of 22-MAY-2020 14:52, nonspecific st changes Referred By: Gabe Aguilera Electronically Signed By:Philip Napier
--- NOTE | 2021-03-18 18:52 | ED.GENADULT ---
HPI - General Adult General Chief complaint: Altered Mental Status Stated complaint: diff breathing Time Seen by Provider: 03/18/21 18:30 Source: patient, EMS and old records reviewed History of Present Illness HPI narrative: Patient with history of lung cancer receiving radiation therapy, presents with shortness of breath and apparent confusion over the last several days. Positive cough. Possible fevers. Patient is confused and unable to give many details. She states she has pain all over. No specific focal point of pain. No abdominal pain. No vomiting. No prior history of hospitalizations here She was seen in the emergency department 1 week ago for exacerbation of COPD. She was started on prednisone and finished her last dose today. She apparently is much worse today. Poor p.o. intake. Related Data Home Medications Medication Instructions Recorded Confirmed acetaminophen 325 mg tablet 650 mg PO BID PRN 04/25/20 10/15/20 albuterol sulfate 2.5 mg INHALATION Q6H PRN 04/25/20 10/15/20 clonazepam 1 mg tablet (Klonopin) 1 mg PO TID 04/25/20 10/15/20 diltiazem HCl 120 mg 1 cap PO DAILY 04/25/20 10/15/20 capsule,extended release 24 hr hydroxyzine pamoate 50 mg capsule 50 mg PO BEDTIME PRN 04/25/20 10/15/20 metolazone 2.5 mg tablet 2.5 mg PO 2XW 07/24/20 10/15/20 torsemide 20 mg tablet 40 mg PO BID tab 08/03/20 10/15/20 methadone 10 mg/mL oral concentrate 73 mg PO DAILY ml 09/04/20 10/15/20 Previous Rx's Medication Instructions Recorded aspirin 81 mg tablet,delayed 81 mg PO DAILY #30 tab 12/11/19 release isosorbide mononitrate 60 mg 60 mg PO QAM #30 tab 01/08/20 tablet,extended release 24 hr ipratropium 20 mcg-albuterol 100 1 puff INHALATION QID #4 g 04/01/20 mcg/actuation mist for inhalation (Combivent Respimat) atorvastatin 80 mg tablet 80 mg PO DAILY #90 tab 07/17/20 loratadine 10 mg tablet 10 mg PO DAILY #30 tab 11/21/20 famotidine 20 mg tablet (Pepcid) 20 mg PO BID PRN #60 tab 11/24/20 prednisone 20 mg tablet 60 mg PO DAILY 5 Days #15 tab 11/24/20 Symbicort 160 mcg-4.5 2 puff PO Q12H #10.2 g NS 02/27/21 mcg/actuation HFA aerosol inhaler (budesonide-formoterol) gabapentin 100 mg capsule 100 mg PO BID #60 cap 02/27/21 prednisone 20 mg tablet 60 mg PO DAILY 5 Days #15 tab 03/12/21 Allergies Allergy/AdvReac Type Severity Reaction Status Date / Time ciprofloxacin [From Cipro] Allergy Unknown HIVES/SWELLING, Verified 02/20/21 15:09 THROAT CLOSES shellfish derived Allergy Unknown UNKNOWN Verified 02/20/21 15:09 [SHELLFISH DERIVED] NSAIDS AdvReac Unknown avoid cue Verified 02/20/21 15:09 to kidney disease Review of Systems Constitutional: Comments: General malaise Cardiovascular: Comments: No chest pain Respiratory: Comments: Positive cost with dyspnea. History of lung cancer Gastrointestinal: Comments: No vomiting or abdominal pain Musculoskeletal: Comments: No leg swelling Integumentary/Breasts: Comments: No new rash Neurologic: Comments: General weakness without focal weakness PMFSH Past Medical History Medical History Anemia in chronic kidney disease Anxiety and depression Breast cancer screening by mammogram COPD (chronic obstructive pulmonary disease) COVID-19 vaccine series completed Dyslipidemia History of claustrophobia History of seizure HTN (hypertension) Hx of cardiac arrest Infected lip laceration Kidney disease Lung cancer Methadone maintenance therapy patient Multiple fractures of ribs O2 dependent LEO (obstructive sleep apnea) Respiratory failure Restrictive lung disease Tubular adenoma of colon Vitamin D deficiency Surgical History H/O colonoscopy History of hand surgery History of laparoscopy History of tubal ligation S/P ureteral stent placement Family History Family History Father Diabetes mellitus Mother Depression Mental health disorder Maternal Grandfather Colon cancer Sister No problems noted. Son No problems noted. Daughter No problems noted. Daughter No problems noted. Social History Social History Household Members: Spouse Housing: Other Are you a primary manager care to a significant other at home: No Do you presently have visiting nurse or other home services: Yes Alcohol intake: never Patient Tobacco Use Status: Former Tobacco user Quit Date: 2011 Tobacco use type: Cigarette Years Smoked: 25 yrs Advance Directives: No Advance Directives Information Provided: No Patient : No service: No Current occupational status: disabled Physical Exam Vital Signs: Vital Signs: Last Vital Signs Temp 98.3 F 03/18/21 20:53 Pulse 109 H 03/18/21 21:15 Resp 30 H 03/18/21 21:15 BP 102/68 03/18/21 20:53 Pulse Ox 99 03/18/21 18:44 BMI result Body Mass Index 51.5 Const: Other: Awake and very ill-appearing. She appears uncomfortable. Positive respiratory distress with increased work of breathing HENMT: Other: Mucosa very dry Resp: Other: Rales and rhonchi bilaterally with expiratory wheezes. Poor to fair air entry Cardio: Other: Tachycardic to approximately 110 beats per minute without murmurs rubs or gallops GI: Other: Soft nontender nondistended Skin: Other: Poor skin turgor with positive tenting Neuro: Other: No focal deficits patient appears confused Course Course Course Narrative: Pneumonia Sepsis Mental status change Hypoxia Respiratory failure COVID-19 pneumonia Patient very difficult IV access. While attempting central venous access, unable to obtain. Heart rate up to 170 beats per minute. Intraosseous access obtained at this point. In order to start 30 mL/kilos bolus. Broad-spectrum antibiotics. IV sedation for agitation Patient is maintaining her blood pressure with IV fluids. But is slightly lower now than on arrival. Last blood pressure 102/68. Will continue to monitor and have low threshold to start pressors. Still awaiting labs including lactic acid. Still awaiting chest x-ray 21:25. Chest x-ray shows bilateral infiltrates consistent with COVID. Plus a left lower lobe lobar infiltrate versus pleural effusion by my interpretation. Still awaiting for chemistries. On re-evaluation, however, patient is still with very much increased work of breathing. She is now much more confused and agitated. Will need intubate her for airway control and respiratory support. Her saturations varying between 86 and 94%. Medical Decision Making Lab Data Result diagrams: 03/18/21 20:13 03/18/21 20:13 Labs: Lab Results 03/18/21 03/18/21 03/18/21 Range/Units 20:13 20:13 20:13 WBC 20.6 H (4.8-10.8) X10*3/uL RBC 4.09 L (4.20-5.50) X10*6/uL Hgb 11.2 L (12.0-16.0) g/dl Hct 34.8 L (37.0-47.0) % MCV 85.1 (80.0-98.0) fL MCH 27.4 (27.0-33.0) pg MCHC 32.2 (31.0-35.0) g/dl RDW 12.8 (11.0-16.0) % Plt Count 322 (160-400) X10*3/uL MPV 9.7 (9.4-12.3) fL Immature Gran % (Auto) 0.9 H (0.0-0.4) % Neut % (Auto) 88.6 H (45-73) % Lymph % (Auto) 4.4 L (20-40) % [place] % (Auto) 6.0 (2-11) % Eos % (Auto) 0.0 (0-4) % Baso % (Auto) 0.1 (0-2) % Lymph # (Auto) 0.9 L (1.2-4.9) X10*3/uL [place]ier # (Auto) 1.2 (0.1-1.2) X10*3/uL Eos # (Auto) 0.0 (0.0-0.4) X10*3/uL Baso # (Auto) 0.0 (0.0-0.2) X10*3/uL Abs Immat Gran (auto) 0.18 H (0.00-0.03) X10*3/uL Absolute Neuts (auto) 18.3 H (2.0-8.3) x10*3/uL Absolute Nucleated RBC 0.000 (0.0-0.012) X10*3/uL Nucleated RBC % (auto) 0.0 (0.0-0.2) /100WBC D-Dimer High Sensitivty 2322 NG/ML VBG pH (7.32-7.43) VBG pCO2 mmHg VBG pO2 mmHg VBG HCO3 (22-26) mmol/L VBG O2 Saturation % VBG Base Excess mmol/L Sodium 140 (135-145) mmol/L Potassium 2.6 L D (3.3-5.1) mmol/L Chloride 92 L (96-108) mmol/L Carbon Dioxide 28 (22-29) mmol/L Anion Gap 23 H (12-20) BUN 131 H (9-16) mg/dL Creatinine 2.54 H (0.5-1.4) mg/dL Estim Creat Clear Calc 33.2 Estimated GFR 19 Random Glucose 120 H (60-115) mg/dL Lactic Acid (0.5-2.0) mmol/L Calcium 8.6 (8.4-10.2) mg/dL Total Bilirubin 0.7 (0.0-1.0) mg/dL Direct Bilirubin 0.2 (0.0-0.5) mg/dL AST 74 H (5-31) U/L ALT 31 (0-31) U/L Alkaline Phosphatase 70 D (39-117) U/L Ammonia (13-55) umol/L Troponin I High Sens (<3.5-17.0) ng/L B-Natriuretic Peptide (<100) pg/mL Total Protein 7.0 (6.5-8.0) g/dL Albumin 3.8 (3.5-5.0) g/dL Urine Color Urine Appearance Urine pH (5.0-8.0) Ur Specific [place] (1.005-1.025) Urine Protein (NEG-TRACE) MG/DL Urine Glucose (UA) (NEG) MG/DL Urine Ketones (NEG) MG/DL Urine Blood (NEG) Urine Nitrite (NEG) Ur Leukocyte Esterase (NEG) Urine RBC (0) /HPF Urine WBC (0-4) /HPF Ur Squamous Epith Cells /LPF Urine Bacteria /LPF COVID-19 ([facility]) (Negative) COVID-19 Clin Com 03/18/21 03/18/21 03/18/21 Range/Units 20:13 20:13 20:13 WBC (4.8-10.8) X10*3/uL RBC (4.20-5.50) X10*6/uL Hgb (12.0-16.0) g/dl Hct (37.0-47.0) % MCV (80.0-98.0) fL MCH (27.0-33.0) pg MCHC (31.0-35.0) g/dl RDW (11.0-16.0) % Plt Count (160-400) X10*3/uL MPV (9.4-12.3) fL Immature Gran % (Auto) (0.0-0.4) % Neut % (Auto) (45-73) % Lymph % (Auto) (20-40) % Lanier % (Auto) (2-11) % Eos % (Auto) (0-4) % Baso % (Auto) (0-2) % Lymph # (Auto) (1.2-4.9) X10*3/uL [place]ier # (Auto) (0.1-1.2) X10*3/uL Eos # (Auto) (0.0-0.4) X10*3/uL Baso # (Auto) (0.0-0.2) X10*3/uL Abs Immat Gran (auto) (0.00-0.03) X10*3/uL Absolute Neuts (auto) (2.0-8.3) x10*3/uL Absolute Nucleated RBC (0.0-0.012) X10*3/uL Nucleated RBC % (auto) (0.0-0.2) /100WBC D-Dimer High Sensitivty NG/ML VBG pH (7.32-7.43) VBG pCO2 mmHg VBG pO2 mmHg VBG HCO3 (22-26) mmol/L VBG O2 Saturation % VBG Base Excess mmol/L Sodium (135-145) mmol/L Potassium (3.3-5.1) mmol/L Chloride (96-108) mmol/L Carbon Dioxide (22-29) mmol/L Anion Gap (12-20) BUN (9-16) mg/dL Creatinine (0.5-1.4) mg/dL Estim Creat Clear Calc Estimated GFR Random Glucose (60-115) mg/dL Lactic Acid (0.5-2.0) mmol/L Calcium (8.4-10.2) mg/dL Total Bilirubin (0.0-1.0) mg/dL Direct Bilirubin (0.0-0.5) mg/dL AST (5-31) U/L ALT (0-31) U/L Alkaline Phosphatase (39-117) U/L Ammonia 35 (13-55) umol/L Troponin I High Sens 68.2 H* (<3.5-17.0) ng/L B-Natriuretic Peptide 115 H (<100) pg/mL Total Protein (6.5-8.0) g/dL Albumin (3.5-5.0) g/dL Urine Color Urine Appearance Urine pH (5.0-8.0) Ur Specific [place] (1.005-1.025) Urine Protein (NEG-TRACE) MG/DL Urine Glucose (UA) (NEG) MG/DL Urine Ketones (NEG) MG/DL Urine Blood (NEG) Urine Nitrite (NEG) Ur Leukocyte Esterase (NEG) Urine RBC (0) /HPF Urine WBC (0-4) /HPF Ur Squamous Epith Cells /LPF Urine Bacteria /LPF COVID-19 ([facility]) Positive A (Negative) COVID-19 Clin Com See Note 03/18/21 03/18/21 03/18/21 Range/Units 20:13 20:13 20:32 WBC (4.8-10.8) X10*3/uL RBC (4.20-5.50) X10*6/uL Hgb (12.0-16.0) g/dl Hct (37.0-47.0) % MCV (80.0-98.0) fL MCH (27.0-33.0) pg MCHC (31.0-35.0) g/dl RDW (11.0-16.0) % Plt Count (160-400) X10*3/uL MPV (9.4-12.3) fL Immature Gran % (Auto) (0.0-0.4) % Neut % (Auto) (45-73) % Lymph % (Auto) (20-40) % Lanier % (Auto) (2-11) % Eos % (Auto) (0-4) % Baso % (Auto) (0-2) % Lymph # (Auto) (1.2-4.9) X10*3/uL [place]ier # (Auto) (0.1-1.2) X10*3/uL Eos # (Auto) (0.0-0.4) X10*3/uL Baso # (Auto) (0.0-0.2) X10*3/uL Abs Immat Gran (auto) (0.00-0.03) X10*3/uL Absolute Neuts (auto) (2.0-8.3) x10*3/uL Absolute Nucleated RBC (0.0-0.012) X10*3/uL Nucleated RBC % (auto) (0.0-0.2) /100WBC D-Dimer High Sensitivty NG/ML VBG pH 7.82 H* (7.32-7.43) VBG pCO2 20 mmHg VBG pO2 142 mmHg VBG HCO3 33 H (22-26) mmol/L VBG O2 Saturation 99.0 % VBG Base Excess 16.0 mmol/L Sodium (135-145) mmol/L Potassium (3.3-5.1) mmol/L Chloride (96-108) mmol/L Carbon Dioxide (22-29) mmol/L Anion Gap (12-20) BUN (9-16) mg/dL Creatinine (0.5-1.4) mg/dL Estim Creat Clear Calc Estimated GFR Random Glucose (60-115) mg/dL Lactic Acid 2.1 H* (0.5-2.0) mmol/L Calcium (8.4-10.2) mg/dL Total Bilirubin (0.0-1.0) mg/dL Direct Bilirubin (0.0-0.5) mg/dL AST (5-31) U/L ALT (0-31) U/L Alkaline Phosphatase (39-117) U/L Ammonia (13-55) umol/L Troponin I High Sens (<3.5-17.0) ng/L B-Natriuretic Peptide (<100) pg/mL Total Protein (6.5-8.0) g/dL Albumin (3.5-5.0) g/dL Urine Color YELLOW Urine Appearance CLEAR Urine pH 6.5 (5.0-8.0) Ur Specific [place] 1.010 (1.005-1.025) Urine Protein 1+ H (NEG-TRACE) MG/DL Urine Glucose (UA) NEG (NEG) MG/DL Urine Ketones NEG (NEG) MG/DL Urine Blood 2+ H (NEG) Urine Nitrite NEG (NEG) Ur Leukocyte Esterase NEG (NEG) Urine RBC 1-4 (0) /HPF Urine WBC 0 (0-4) /HPF Ur Squamous Epith Cells 1+ /LPF Urine Bacteria TRACE /LPF COVID-19 ([facility]) (Negative) COVID-19 Clin Com Critical Care Time Critical Care Time Critical Care Time: Yes Total Critical Care Time: 120 Attestation: Critical care time for respiratory failure and mental status changes secondary to pneumonia and COVID-19 infection. Requiring mechanical ventilation. Critical care time is outside of separately billable procedures. Discharge Plan Discharge Prescriptions: No Action aspirin 81 mg tablet,delayed release (DR/EC) 81 mg PO DAILY Qty: 30 0RF isosorbide mononitrate 60 mg tablet extended release 24 hr 60 mg PO QAM Qty: 30 0RF ipratropium-albuterol [Combivent Respimat] 20-100 mcg/actuation mist 1 puff inhalation QID Qty: 4 0RF atorvastatin 80 mg tablet 80 mg PO DAILY Qty: 90 0RF Rx Instructions: Please call to schedule a cardiology appointment for more refills. loratadine 10 mg tablet 10 mg PO DAILY Qty: 30 0RF budesonide-formoterol [Symbicort] 160-4.5 mcg/actuation HFA aerosol inhaler 2 puff PO Q12H Qty: 10.2 0RF gabapentin 100 mg capsule 100 mg PO BID Qty: 60 0RF diltiazem HCl 120 mg capsule,extended release 24hr 1 cap PO DAILY 0RF albuterol sulfate 2.5 mg /3 mL (0.083 %) solution for nebulization 2.5 mg inhalation Q6H PRN (Reason: Shortness Of Breath) 0RF clonazepam [Klonopin] 1 mg tablet 1 mg PO TID 0RF Rx Instructions: administer 30 minutes before bedtime acetaminophen 325 mg Tablet 650 mg PO BID PRN (Reason: Pain, Mild) 0RF hydroxyzine pamoate 50 mg capsule 50 mg PO BEDTIME PRN (Reason: Sleep) 0RF methadone 10 mg/mL concentrate 73 mg PO DAILY 0RF Label Comments: *DOSE NEEDS TO BE VERIFIED BY [facility] prednisone 20 mg tablet 60 mg PO DAILY 5 Days Qty: 15 0RF famotidine [Pepcid] 20 mg tablet 20 mg PO BID PRN (Reason: epigastric pain) Qty: 60 0RF prednisone 20 mg tablet 60 mg PO DAILY 5 Days Qty: 15 0RF metolazone 2.5 mg tablet 2.5 mg PO 2XW 0RF torsemide 20 mg tablet 40 mg PO BID 0RF
[2021-03-18] MEDS: Ipratropium Bromide 0.5 MG/2.5 ML SOLUTION INHALE (19:41)
[2021-03-18] MEDS: Albuterol Sulfate (0.083%) 2.5 MG/3 ML VIAL.NEB INHALE (19:41)
--- NOTE | 2021-03-18 19:55 | PC.NURSE ---
multiple iv attempts, pt hard stick. central line failed. IO established rt Tib.
[2021-03-18 20:10] LABS: COVID-19 Test Positive (Negative)
[2021-03-18] MEDS: fentaNYL citrate/PF 100 MCG/2 ML VIAL 50 MCG IVPUSH ×2 (20:26→20:42)
[2021-03-18] MEDS: methylPREDNISolone Sod Succ 125 MG/2 ML VIAL IVPUSH (20:27)
[2021-03-18] MEDS: Piperacillin Sodium/Tazobactam 3.375 GM in 0.9 % Sodium Chloride 50 ML IV (20:30)
[2021-03-18 20:40] LABS: Basophils Percent Auto 0.1 % (0-2); Hematocrit 34.8 % (37.0-47.0); Hemoglobin 11.2 g/dl (12.0-16.0); Imm Gran Abs Auto 0.18 X10*3/uL (0.00-0.03); Imm Gran Pct Auto 0.9 % (0.0-0.4); Lymphocytes Absolute Auto 0.9 X10*3/uL (1.2-4.9); Lymphocytes Percent Auto 4.4 % (20-40); Mean Corpuscular HGB Conc 32.2 g/dl (31.0-35.0); Mean Corpuscular Hemoglobin 27.4 pg (27.0-33.0); Mean Corpuscular Volume 85.1 fL (80.0-98.0); Mean Platelet Volume 9.7 fL (9.4-12.3); Monocytes Absolute Auto 1.2 X10*3/uL (0.1-1.2); Neutrophils Absolute Auto 18.3 x10*3/uL (2.0-8.3); Neutrophils Percent Auto 88.6 % (45-73); Platelet Count 322 X10*3/uL (160-400); Red Blood Count 4.09 X10*6/uL (4.20-5.50); Red Cell Distribution Width 12.8 % (11.0-16.0); White Blood Count 20.6 X10*3/uL (4.8-10.8)
[2021-03-18 20:43] LABS: VBG HCO3 33 mmol/L (22-26); VBG pCO2 20 mmHg; VBG pH 7.82 (7.32-7.43); VBG pO2 142 mmHg
[2021-03-18 20:47] LABS: Appearance Urine CLEAR; Color Urine YELLOW; D Dimer High Sensitivity 2322 NG/ML; Glucose Urine UA NEG (NEG); Leukocyte Esterase Urine NEG (NEG); Nitrite Urine NEG (NEG); PH 6.5 (5.0-8.0); UACC Culture Trigger NO; Urine Blood 2+ (NEG); Urine Ketones NEG (NEG); Urine Protein 1+ MG/DL (NEG-TRACE)
[2021-03-18 20:47] LABS: Venous Blood Gas Refer to POC result
[2021-03-18] MEDS: LORazepam 2 MG/ML VIAL IVPUSH (20:48)
--- NOTE | 2021-03-18 21:04 | PC.NURSE ---
Pt placed in non behaviroral soft restraints at this time continues to interfere with devices. verbal order given neno barrett.
[2021-03-18 21:05] LABS: Ammonia 35 umol/L (13-55)
[2021-03-18] MEDS: Haloperidol Lactate 5 MG/ML VIAL 2 MG IVPUSH (21:07)
[2021-03-18 21:12] LABS: Bacteria Urine TRACE /LPF; Squamous Epithelial Cell Urine 1+ /LPF; WBC Urine 0 /HPF (0-4)
[2021-03-18 21:23] LABS: MANUAL DIFF FLAG NO
[2021-03-18 21:26] LABS: Alanine Aminotransferase 31 U/L (0-31); Albumin Level 3.8 g/dL (3.5-5.0); Alkaline Phosphatase 70 U/L (39-117); Anion Gap 23 (12-20); Aspartate Amino Transferase 74 U/L (5-31); Bilirubin Direct 0.2 mg/dL (0.0-0.5); Bilirubin Total 0.7 mg/dL (0.0-1.0); Blood Urea Nitrogen 131 mg/dL (9-16); Calcium 8.6 mg/dL (8.4-10.2); Carbon Dioxide 28 mmol/L (22-29); Chloride 92 mmol/L (96-108); Creatinine Clr Calc Pharmacy 33.2; Estimated Glomerular Filt Rate 19; Glucose Random 120 mg/dL (60-115); Potassium 2.6 mmol/L (3.3-5.1); Sodium 140 mmol/L (135-145)
[2021-03-18 21:31] LABS: B Type Natriuretic Peptide 115 pg/mL (<100); Troponin-I High Sensitivity 68.2 ng/L (<3.5-17.0)
[2021-03-18 21:32] LABS: Lactic Acid 2.1 mmol/L (0.5-2.0)
[2021-03-18] MEDS: propofoL 1,000 MG/100 ML VIAL 40.82 MG IVCONT (21:54)
[2021-03-18] MEDS: fentaNYL citrate/NS 1,000 MCG/100 ML PLAST..BAG 5 MCG IVCONT (22:04)
--- NOTE | 2021-03-18 22:11 | PHA.MEDREC ---
Pharmacy Consult ? Medication Reconciliation Pharmacy has completed the medication reconciliation. Pt intubated, med rec based on pt fill history at [facility] unable to confirm recent use of methadone, aspirin and inhalers
--- NOTE | 2021-03-18 22:14 | PC.NURSE ---
pt intubated at 2134
--- NOTE | 2021-03-18 22:24 | PC.NURSE ---
Lat entry: Pt had been titrated up from NC at 6LPM to maxxed on venti mask. Pt medicated with ativan for anxiety related to health status. Pt continued to be tachypnic, with intermittent SVT 140-190s. Pt unable to tolerate NRB. Pt was a profoundly hard stick. IO in right tib fib. Sepis bolus given. 22g established in left shoulder Provider made the decision to intubate secondary to profound metabolic acidosis and exhaustion secondary tachypnic respirations and acuity of illness. pt intubated with 100mg succ at 2135 and 100mg etomidate 7.5 ett marked 22 at lip. OG placed at same time. Tolerated well. Fentynal infusing through IO Proprofol infusing in IO
[2021-03-18 22:27] LABS: Glucose, Whole Blood 199 mg/dL (60-115)
[2021-03-18 22:27] LABS: ABG Base Excess 2.3 mmol/L; ABG HCO3 26 mmol/L (22-26); ABG pCO2 37 mmHg (32-45); ABG pH 7.45 (7.35-7.45); ABG pO2 124 mmHg (83-108)
--- NOTE | 2021-03-18 22:49 | P.HPCC_ITS ---
History of Present Illness Date of Service: 03/18/21 Attending physician on admission: Neal Shabazz Chief Complaint: AMS The patient is a 60 year-old female with past medical history of? COPD? on 2 L via nasal cannula chronically,? lung cancer? on palliative radiation therapy,? polysubstance abuse (on methadone),? dyslipidemia, seizure, tension, CKD? and recent visit on 03/12/21 to the emergency room for COPD exacerbation? and sent home on prednisone? who presented to the emergency room? via ambulance today for worsening altered mental status.?? In the emergency room,? she was confused, complaining of cough and fevers.? Respiratory rate? height 30s to 40s and tachycardic to 170s.? She required emergent intubation for worsening confusion and airway protection. Laboratory data? significant for? VBGs as follows: 7.82/20/142/33. WBC? 20.6,? hemoglobin 11.2,? hematocrit 34, ? Potassium 2.6, chloride 92, BUN 131, creatinine 2.54, lactic 2.1, troponin 68.2, BNP 115? Positive for COVID 19 ? Patient will be admitted to the ICU for management of acute respiratory distress requiring emergent intubation Review of Systems Review of Systems: unable to complete to patient's intubated PMFSH Past Medical History Medical History Anemia in chronic kidney disease Anxiety and depression Breast cancer screening by mammogram COPD (chronic obstructive pulmonary disease) COVID-19 vaccine series completed Dyslipidemia History of claustrophobia History of seizure HTN (hypertension) Hx of cardiac arrest Infected lip laceration Kidney disease Lung cancer Methadone maintenance therapy patient Multiple fractures of ribs O2 dependent LEO (obstructive sleep apnea) Respiratory failure Restrictive lung disease Tubular adenoma of colon Vitamin D deficiency Family History Family History Father Diabetes mellitus Mother Depression Mental health disorder Maternal Grandfather Colon cancer Sister No problems noted. Son No problems noted. Daughter No problems noted. Daughter No problems noted. Surgical History Surgical History H/O colonoscopy History of hand surgery History of laparoscopy History of tubal ligation S/P ureteral stent placement Social History Social History Household Members: Spouse Housing: House Are you a primary landcare officer to a significant other at home: No Do you presently have visiting nurse or other home services: Yes Unable to assess alcohol history related to: Unable to respond Alcohol intake: never Patient Tobacco Use Status: Former Tobacco user Quit Date: 2011 Tobacco use type: Cigarette Years Smoked: 25 yrs Use of substances other than those prescribed or required for medical reasons: Unable to respond Advance Directives: No Advance Directives Information Provided: No Recently lost weight without trying: Unsure Nutrition Risks: No Nutritional Risk Patient : No service: No Current occupational status: disabled Meds Allergies Allergy/AdvReac Type Severity Reaction Status Date / Time ciprofloxacin [From Cipro] Allergy Unknown HIVES/SWELLING, Verified 02/20/21 15:09 THROAT CLOSES shellfish derived Allergy Unknown UNKNOWN Verified 02/20/21 15:09 [SHELLFISH DERIVED] NSAIDS AdvReac Unknown avoid cue Verified 02/20/21 15:09 to kidney disease Active Medications: Current Medications Chlorhexidine Gluconate (Chlorhexidine Gluc Oral Rinse 15 Ml Mouthwash) 15 ml BUCCAL Q8H ANALISA Heparin Sodium (Porcine) (Heparin Sodium,Porcine 5,000 Unit/Ml Vial) 5,000 unit SUBCUT Q8H ANALISA Potassium Chloride () 10 meq in 100 mls @ 100 mls/hr IV Q1H ANALISA Stop: 03/19/21 01:44 Propofol (Diprivan) 1,000 mg in 100 mls @ 0 mls/hr IVCONT .Q0M ANALISA; Protocol Last Titration: 03/18/21 22:11 Dose: 40 mcg/kg/min, 32.66 mls/hr Documented by: Fentanyl (Sublimaze/Ns) 1,000 mcg in 100 mls @ 0 mls/hr IVCONT .Q0M ANALISA; Protocol Last Admin: 03/18/21 22:04 Dose: 50 mcg/hr, 5 mls/hr Documented by: Naloxone HCl (Naloxone Hcl 0.4 Mg/Ml Vial) 0.2 mg IVPUSH Q2M PRN PRN Reason: Excessive sedation or RR < 8 Home Medications Medication Instructions Recorded Confirmed Last Taken Type albuterol sulfate 2.5 mg INHALATION Q6H PRN 04/25/20 10/15/20 10/09/20 History clonazepam 1 mg tablet (Klonopin) 1 mg PO TID 04/25/20 03/18/21 10/09/20 History diltiazem HCl 120 mg 1 cap PO DAILY 04/25/20 03/18/21 Unknown History capsule,extended release 24 hr hydroxyzine pamoate 50 mg capsule 50 mg PO BEDTIME PRN 04/25/20 03/18/21 Unknown History metolazone 2.5 mg tablet 2.5 mg PO 2XW 07/24/20 03/18/21 Unknown History torsemide 20 mg tablet 40 mg PO BID tab 08/03/20 03/18/21 Unknown History methadone 10 mg/mL oral concentrate 73 mg PO DAILY ml 09/04/20 10/15/20 Unknown History isosorbide mononitrate 60 mg 60 mg PO DAILY 03/18/21 03/18/21 Unknown History tablet,extended release 24 hr Physical Exam Vital Signs: Vital Signs: Last Vital Signs Temp 98.3 F 03/18/21 20:53 Pulse 104 H 03/18/21 22:15 Resp 18 03/18/21 22:15 BP 100/65 03/18/21 22:15 Pulse Ox 98 03/18/21 22:00 BMI result Body Mass Index 51.5 Constitutional: Intubated. Head: Normocephalic. Eyes: Pupils are equal, round and reactive to light. Extraocular muscles intact. Ear, Nose and Throat: ETT, mucous membranes moist. Ears and nose without masses, lesions or deformities. Trachea midline. Neck: Supple, Respiratory: Expiratory wheezing in all lung hendricks.? Minor increased work of breathing.? Cardiovascular: sinus tachycardia, S1 S2 regular. No murmurs, rubs or gallops. no edema Gastrointestinal: Abdomen soft, non-tender, non-distended. Normal bowel sounds. No pulsatile mass. No hepatosplenomegaly. Genitourinary: No costovertebral angle tenderness. Neurologic: No focal neurological deficits. Moves all extremities spontaneously. Skin: right IO. No rashes or lesions. No petechiae or purpura. Musculoskeletal: No cyanosis or clubbing. No gross deformities. Results Labs CBC and Chem 7: 03/18/21 20:13 03/18/21 20:13 Labs: Laboratory Results - last 24 hr 03/18/21 03/18/21 03/18/21 20:13 20:13 20:13 MCV 85.1 MCH 27.4 MCHC 32.2 RDW 12.8 Plt Count 322 MPV 9.7 Immature Gran % (Auto) 0.9 H Neut % (Auto) 88.6 H Lymph % (Auto) 4.4 L Montgomery % (Auto) 6.0 Eos % (Auto) 0.0 Baso % (Auto) 0.1 Lymph # (Auto) 0.9 L Montgomery # (Auto) 1.2 Eos # (Auto) 0.0 Baso # (Auto) 0.0 Abs Immat Gran (auto) 0.18 H Absolute Neuts (auto) 18.3 H Absolute Nucleated RBC 0.000 Nucleated RBC % (auto) 0.0 D-Dimer High Sensitivty 2322 O2 Saturation ABG pH at Pt Temp ABG pCO2 at Pt Temp ABG pO2 at Pt Temp ABG HCO3 ABG Base Excess (Actual) VBG pH VBG pCO2 VBG pO2 VBG HCO3 VBG O2 Saturation VBG Base Excess Anion Gap 23 H Estim Creat Clear Calc 33.2 Estimated GFR 19 POC Glucose Random Glucose 120 H Lactic Acid Calcium 8.6 Total Bilirubin 0.7 Direct Bilirubin 0.2 AST 74 H ALT 31 Alkaline Phosphatase 70 D Ammonia B-Natriuretic Peptide Total Protein 7.0 Albumin 3.8 Urine Color Urine Appearance Urine pH Ur Specific [place] Urine Protein Urine Glucose (UA) Urine Ketones Urine Blood Urine Nitrite Ur Leukocyte Esterase Urine RBC Urine WBC Ur Squamous Epith Cells Urine Bacteria COVID-19 (STANLEY) COVID-19 Clin Com 03/18/21 03/18/21 03/18/21 20:13 20:13 20:13 MCV MCH MCHC RDW Plt Count MPV Immature Gran % (Auto) Neut % (Auto) Lymph % (Auto) Montgomery % (Auto) Eos % (Auto) Baso % (Auto) Lymph # (Auto) Montgomery # (Auto) Eos # (Auto) Baso # (Auto) Abs Immat Gran (auto) Absolute Neuts (auto) Absolute Nucleated RBC Nucleated RBC % (auto) D-Dimer High Sensitivty O2 Saturation ABG pH at Pt Temp ABG pCO2 at Pt Temp ABG pO2 at Pt Temp ABG HCO3 ABG Base Excess (Actual) VBG pH VBG pCO2 VBG pO2 VBG HCO3 VBG O2 Saturation VBG Base Excess Anion Gap Estim Creat Clear Calc Estimated GFR POC Glucose Random Glucose Lactic Acid Calcium Total Bilirubin Direct Bilirubin AST ALT Alkaline Phosphatase Ammonia 35 B-Natriuretic Peptide 115 H Total Protein Albumin Urine Color Urine Appearance Urine pH Ur Specific [place] Urine Protein Urine Glucose (UA) Urine Ketones Urine Blood Urine Nitrite Ur Leukocyte Esterase Urine RBC Urine WBC Ur Squamous Epith Cells Urine Bacteria COVID-19 (STANLEY) Positive A COVID-19 Clin Com See Note 03/18/21 03/18/21 03/18/21 20:13 20:13 20:32 MCV MCH MCHC RDW Plt Count MPV Immature Gran % (Auto) Neut % (Auto) Lymph % (Auto) Montgomery % (Auto) Eos % (Auto) Baso % (Auto) Lymph # (Auto) [place] # (Auto) Eos # (Auto) Baso # (Auto) Abs Immat Gran (auto) Absolute Neuts (auto) Absolute Nucleated RBC Nucleated RBC % (auto) D-Dimer High Sensitivty O2 Saturation ABG pH at Pt Temp ABG pCO2 at Pt Temp ABG pO2 at Pt Temp ABG HCO3 ABG Base Excess (Actual) VBG pH 7.82 H* VBG pCO2 20 VBG pO2 142 VBG HCO3 33 H VBG O2 Saturation 99.0 VBG Base Excess 16.0 Anion Gap Estim Creat Clear Calc Estimated GFR POC Glucose Random Glucose Lactic Acid 2.1 H* Calcium Total Bilirubin Direct Bilirubin AST ALT Alkaline Phosphatase Ammonia B-Natriuretic Peptide Total Protein Albumin Urine Color YELLOW Urine Appearance CLEAR Urine pH 6.5 Ur Specific [place] 1.010 Urine Protein 1+ H Urine Glucose (UA) NEG Urine Ketones NEG Urine Blood 2+ H Urine Nitrite NEG Ur Leukocyte Esterase NEG Urine RBC 1-4 Urine WBC 0 Ur Squamous Epith Cells 1+ Urine Bacteria TRACE COVID-19 (STANLEY) COVID-19 Clin Com 03/18/21 03/18/21 22:20 22:21 MCV MCH MCHC RDW Plt Count MPV Immature Gran % (Auto) Neut % (Auto) Lymph % (Auto) Montgomery % (Auto) Eos % (Auto) Baso % (Auto) Lymph # (Auto) Montgomery # (Auto) Eos # (Auto) Baso # (Auto) Abs Immat Gran (auto) Absolute Neuts (auto) Absolute Nucleated RBC Nucleated RBC % (auto) D-Dimer High Sensitivty O2 Saturation 97.0 ABG pH at Pt Temp 7.45 ABG pCO2 at Pt Temp 37 ABG pO2 at Pt Temp 124 H ABG HCO3 26 ABG Base Excess (Actual) 2.3 VBG pH VBG pCO2 VBG pO2 VBG HCO3 VBG O2 Saturation VBG Base Excess Anion Gap Estim Creat Clear Calc Estimated GFR POC Glucose 199 H Random Glucose Lactic Acid Calcium Total Bilirubin Direct Bilirubin AST ALT Alkaline Phosphatase Ammonia B-Natriuretic Peptide Total Protein Albumin Urine Color Urine Appearance Urine pH Ur Specific [place] Urine Protein Urine Glucose (UA) Urine Ketones Urine Blood Urine Nitrite Ur Leukocyte Esterase Urine RBC Urine WBC Ur Squamous Epith Cells Urine Bacteria COVID-19 (STANLEY) COVID-19 Clin Com Imaging Radiologist's Impressions: Impressions Chest X-Ray 03/18/21 21:24 IMPRESSION: Increased interstitial prominence bilaterally and new more focal hazy opacities in the left lower lobe in which an atypical infectious or inflammatory process is suspected. Recommend correlation clinically and a follow-up study to ensure resolution after appropriate treatment. Assessment and Plan (1) Acute respiratory distress: Status: Acute (2) Aspiration into airway: Status: Acute (3) COPD (chronic obstructive pulmonary disease): Status: Acute (4) COVID-19: Status: Acute (5) CKD (chronic kidney disease) stage 4, GFR 15-29 ml/min: Status: Acute (6) JOAN (acute kidney injury): Status: Acute (7) Lung cancer: Status: Acute (8) Hypokalemia: Status: Acute Plan Plan: Neuro:? AMS- ? patient has a history of polysubstance abuse,? last U tox in 07/2020 positive for? opiate, benzos, cocaine.? This could be the likely cause of AMS.? Will order a urine toxicology.? ?Cardiac:? ?Elevated BNP, and lactate. No signs of severe infection. She looks euvolemic, with no significant edema, and good urine output.? Is not on diuretics at home. Will continue to monitor for diuresing need. Pulmonary: ??Acute respiratory distress:? Patient came into the emergency room with altered mental status and complaints of couple days with a cough and possible fever.? Respiratory rate and high 30s and 40s in the emergency room.? And required emergent intubation for airway protection. Tested positive for COVID-19.? ABGs showed severe respiratory a closest pH 7.82 CO2 20.? This does not sound like? is from COVID-19.? Urine tox pending.? She likely had aspiration event. Will add empiric antibiotics,? steroids and will obtain chest CT Renal:? CKD with JOAN -? nonoliguric, most likely fluid deficiency related.? Will continue to monitor? renal indices.? Endo:? GI: ? No acute issues ID:? ? leukocytosis:? could be related due to underlying COVID-19 versus aspiration event.? On empiric antibiotics.? Cultures pending.? Heme/Onc:? No acute issues. Psych:? No acute issues. Miscellaneous:? No acute issues. Prophylaxis:? subcu heparin and pantoprazole Diet: ? NPO? Code status: Full code? Critical care time: x 90 critical care time Case discussed with Attending Dr Shabazz? Critical Care Time Critical Care Time (minutes): 90
[2021-03-18 23:11] LABS: Reflex Lactate? Lactic Acid Added
[2021-03-18 23:36] LABS: ABG Refer to POC result
--- NOTE | 2021-03-18 23:45 | PC.NURSE ---
Received report of Onelia Goodman, Pt had a complete bed change, cota emptied 1400 output. Propofol increased to 40mcq for better sedation while on vent. Will continue to monitor. Pt awaiting for bed assignment.
[2021-03-18 23:52] LABS: Amphetamine Screen Urine Not Detected (Not Detect); Barbiturates, Urine Not Detected (Not Detect); Benzodiazepines Screen Urine Not Detected (Not Detect); Cannabinoid Screen Urine Not Detected (Not Detect); Cocaine Screen Urine Not Detected (Not Detect); Fentanyl, urine POSITIVE (Not Detect); Opiate Screen Urine POSITIVE (Not Detect); Phencyclidine Screen Urine Not Detected (Not Detect)
[2021-03-19] VITALS (30 sets, daily range): BP systolic 76–113; BP diastolic 47–73; PULSE 68–100; RESP 13–24; TEMP 32.1–37.4; O2SAT 87–97; BMI 51.5
--- NOTE | 2021-03-19 | ECG_ITS ---
Test Reason : traponin Blood Pressure : / mmHG Vent. Rate : 098 BPM Atrial Rate : 098 BPM P-R Int : 102 ms QRS Dur : 094 ms QT Int : 416 ms P-R-T Axes : 071 089 129 degrees QTc Int : 531 ms Poor data quality Sinus rhythm with short TX Nonspecific T wave changes When compared with ECG of 18-MAR-2021 18:47, TX interval has decreased Non-specific change in ST segment in Inferior leads Referred By: Anupam Cobb Electronically Signed By:Philip Napier
[2021-03-19] MEDS: propofoL 1,000 MG/100 ML VIAL 32.66 MG IVCONT (00:12)
--- NOTE | 2021-03-19 00:15 | PC.NURSE ---
propofol decreased to 30mcq at this time
[2021-03-19 00:44] LABS: ~Lactic Acid-LAB USE ONLY 1.3 mmol/L (0.5-2.0)
--- NOTE | 2021-03-19 00:56 | PC.NURSE ---
pt increased to 40mcq on propofol, to taken to CT and transported to ICU
--- NOTE | 2021-03-19 00:57 | PC.NURSE ---
Reported to Onelia Britton in ICU Medications were not given due to access prior to my shift. Charge nurse is also aware.
[2021-03-19] MEDS: methylPREDNISolone Sod Succ 125 MG/2 ML VIAL 60 MG IVPUSH ×2 (01:26→09:14)
[2021-03-19] MEDS: Heparin Sodium,Porcine 5,000 UNIT/ML VIAL 5000 UNIT SUBCUT (01:26)
[2021-03-19 02:09] LABS: Anion Gap 20 (12-20); Blood Urea Nitrogen 122 mg/dL (9-16); Calcium 7.5 mg/dL (8.4-10.2); Carbon Dioxide 23 mmol/L (22-29); Chloride 101 mmol/L (96-108); Creatinine Clr Calc Pharmacy 36.4; Estimated Glomerular Filt Rate 22; Glucose Random 222 mg/dL (60-115); Phosphorus 2.9 mg/dL (2.7-4.5); Potassium 2.7 mmol/L (3.3-5.1); Sodium 141 mmol/L (135-145)
[2021-03-19] MEDS: Magnesium Sulfate/H2O 2 GM/50 ML PIGGYBACK IV ×2 (02:23→09:14)
[2021-03-19] MEDS: propofoL 1,000 MG/100 ML VIAL 40.82 MG IVCONT ×9 (02:23→21:58)
--- NOTE | 2021-03-19 02:31 | W.PM.CCHP ---
Procedures Date of Service Date of Service: 03/19/21 Central Line Placement Right IJ: Central Line Comments: Patient with poor peripheral access, requiring multiple lab draws and medications.? Right internal jugular triple lumen central venous catheter placed in usual sterile conditions under ultrasound guidance for appropriate vascular access without immediate complications. Chest Xray obtained, tip of line in neck region. Will use as EJ Consent for Procedure: Emergent-no informed consent obtained Time out performed: Yes Sterile Technique Used: Yes Patient placed on monitor/pulse ox: Yes MD prep: mask, gown, gloves and other Central line prep: Chlorhexidine scrub Local anesthesia used: other anesthetic (On prop ) Ultrasound used for placement: Yes Central line lumen inserted: triple Post procedure: sutured in place, good blood return, all ports aspirated, flushed, capped and sterile dressing applied Post procedure x-ray: tip of catheter in good position (Tip in neck region) and no pneumothorax seen Patient tolerated procedure: well and no complications Complications: none
[2021-03-19] MEDS: Potassium Chloride Packet 20 MEQ PACKET 40 MEQ PO (02:35)
[2021-03-19] MEDS: Potassium Phosphate/NS 15 MMOL/250 ML PLAST..BAG 62.5 MMOL IV (02:36)
[2021-03-19] MEDS: Potassium Chloride/H20 10 MEQ/100 ML PIGGYBACK 100 MEQ IV ×4 (02:36→05:35)
[2021-03-19] MEDS: Heparin Sodium,Porcine 5,000 UNIT/ML VIAL 4000 UNIT IVPUSH (03:13)
[2021-03-19] MEDS: Aspirin 325 MG TABLET OG-TUBE (03:13)
[2021-03-19] MEDS: Heparin Sodium,Porcine/1/2NS 25,000 UNIT/250 ML IV.SOLN 10 UNIT IVCONT (03:14)
[2021-03-19] MEDS: fentaNYL citrate/NS 1,000 MCG/100 ML PLAST..BAG 15 MCG IVCONT ×4 (03:59→22:59)
--- NOTE | 2021-03-19 04:18 | PC.NURSE ---
Pt admitted to ICU at approx 0100. Pt intubated in ED, ETT #7.5, 22 cm at lip. Current vent settings: ACVC 18/350/70%/+5. SpO2 goal > 88%, RR 20-30. Pt sedated on propofol gtt, responds to noxious stimuli, difficult to sedate, occasionally reaches for lines/tubes. Fentanyl gtt added for vent synchrony. NSR on tele, HR 90s. DRAWING HAND aware of all labs. Troponin trending up- EKG done, aspirin 325 mg OGT x1, heparin 4000 units IVP bolus and heparin gtt started per protocol. Multiple electrolyte replacements ordered and given per emar. TLC inserted to R IJ. SBP 80-90, MAP 60-65, DRAWING HAND aware. Skin intact- pt on turning bed and prevalon mattress system.
[2021-03-19 04:28] LABS: Troponin-I High Sensitivity 851.1 ng/L (<3.5-17.0)
[2021-03-19] MEDS: Piperacillin Sodium/Tazobactam 4.5 GM in 0.9 % Sodium Chloride 100 ML IV (04:33)
[2021-03-19 04:47] LABS: INTERNATIONAL NORM RATIO 1.2 (0.9-1.1); Prothrombin Time 13.1 SEC (9.9-13.0)
[2021-03-19] MEDS: Pantoprazole Sodium 40 MG/10 ML VIAL IVPUSH (05:35)
[2021-03-19 06:03] LABS: VBG Base Excess 0.5 mmol/L; VBG HCO3 23 mmol/L (22-26); VBG pCO2 34 mmHg; VBG pH 7.45 (7.32-7.43); VBG pO2 54 mmHg
[2021-03-19 06:27] LABS: Hematocrit 26.2 % (37.0-47.0); Hemoglobin 8.3 g/dl (12.0-16.0); Imm Gran Abs Auto 0.15 X10*3/uL (0.00-0.03); Imm Gran Pct Auto 0.7 % (0.0-0.4); Lymphocytes Absolute Auto 0.3 X10*3/uL (1.2-4.9); Lymphocytes Percent Auto 1.4 % (20-40); MANUAL DIFF FLAG SCAN; Mean Corpuscular HGB Conc 31.7 g/dl (31.0-35.0); Mean Corpuscular Hemoglobin 27.6 pg (27.0-33.0); Mean Platelet Volume 9.9 fL (9.4-12.3); Monocytes Absolute Auto 0.3 X10*3/uL (0.1-1.2); Monocytes Percent Auto 1.3 % (2-11); Neutrophils Absolute Auto 19.6 x10*3/uL (2.0-8.3); Neutrophils Percent Auto 96.6 % (45-73); Platelet Count 283 X10*3/uL (160-400); Red Blood Count 3.01 X10*6/uL (4.20-5.50); Red Cell Distribution Width 12.8 % (11.0-16.0); SCAN SMEAR FLAG 1; White Blood Count 20.4 X10*3/uL (4.8-10.8)
[2021-03-19 06:32] LABS: Venous Blood Gas Refer to POC result
[2021-03-19 07:06] LABS: Alanine Aminotransferase 39 U/L (0-31); Alkaline Phosphatase 60 U/L (39-117); Anion Gap 24 (12-20); Aspartate Amino Transferase 67 U/L (5-31); Bilirubin Total 0.5 mg/dL (0.0-1.0); Blood Urea Nitrogen 116 mg/dL (9-16); Calcium 7.4 mg/dL (8.4-10.2); Carbon Dioxide 20 mmol/L (22-29); Chloride 101 mmol/L (96-108); Creatinine Clr Calc Pharmacy 35.8; Estimated Glomerular Filt Rate 21; Glucose Random 246 mg/dL (60-115); Magnesium 1.5 mg/dL (1.6-2.6); Phosphorus 3.9 mg/dL (2.7-4.5); Potassium 3.5 mmol/L (3.3-5.1); Sodium 141 mmol/L (135-145); Total Protein 5.6 g/dL (6.5-8.0)
--- NOTE | 2021-03-19 07:15 | PHA.PROG ---
Admission Date/Time: March 18, 2021 22:11 Indication: Respiratory Weight in k.078 kg Adjusted body weight in K.251 [place] body weight in K.7 Obesity Dosing Indication % IBW: Serum Creatinine - Last 168 Hours 03/18/21 03/19/21 03/19/21 20:13 01:29 05:29 Creatinine 2.54 H 2.32 H 2.36 H Estimated CrCl and GFR - Last 168 Hours 03/18/21 03/19/21 03/19/21 20:13 01:29 05:29 Estim Creat Clear Calc 33.2 36.4 35.8 Estimated GFR 19 22 21 Vancomycin Loading Dose: 2000 mg load Current Vancomycin Dosing Regimen: 750mg q24h Vancomycin Monitoring using AUC goal of 400 - 600 range with trough as surrogate marker: auc 517; trough 16.4 Date and Time for next Vancomycin Level to be drawn: 03/20 @1800 Pharmacist Comments on Vancomycin Plan: Vancomycin dosing will take advantage of [employer] as a clinical decision support tool that uses Bayesian modeling to calculate individual patient's pharmacokinetic parameters and forecast the patient's drug concentration time course with the target goal AUC 24 range of 400 - 600 mg/L/hr.
[2021-03-19 08:31] LABS: SLIDE REVIEW VERIFIED
--- NOTE | 2021-03-19 09:00 | P.CDIC_ITS ---
CDI Concurrent Query Documentation Clarification: PHYSICIAN'S DOCUMENTATION REQUEST Date of Query: 03/19/21 0900 Patient Name: Deirdre Galeas Admit Date: 03/18/21 Dear Doctor, A review of the medical record indicates additional documentation may be needed. Please review below and update the documentation accordingly. Clinical Indicators: Risk Factors/Clinical Indicators/Treatments ED: 03/18 - patient has altered mental status, confused over last few days, unable to give details. Intubated for airway protection, polysubstance abuse (methadone) could be reason for ams. Based on the above, please further specify, in the Progress Notes, the known or suspected diagnosis that correlates with the altered mental status poa: * Metabolic * Septic * Toxic * Toxic metabolic * Other (please specify) * Unable to determine Use of terms such as suspected, likely, concern for, or probable (associated with a specific diagnosis that is being evaluated, monitored, or treated as if it exists) are acceptable and can be coded in the inpatient setting, when documented at the time of discharge. Thank you, Brandy Castro [facility], CDIS Extension:[phone] Please use your independent medical judgment in providing your response. THIS QUERY IS PART OF THE PERMANENT MEDICAL RECORD Provider Response: Other ( Acute metabolic encephalopathy) Other Diagnosis: acute metabolic encephalopathy
[2021-03-19] MEDS: Chlorhexidine Gluc Oral Rinse 15 ML MOUTHWASH BUCCAL ×2 (09:14→14:19)
[2021-03-19] MEDS: Albumin Human 25 % 100 ML IV ×3 (09:15→20:18)
[2021-03-19 09:54] LABS: PTT Heparin Drip 49.8 SEC (53-77.9)
--- NOTE | 2021-03-19 09:54 | PC.NURSE ---
Late Entry: 03/18/2021 Unable to document RASS score on pt, due to grayed out box. notified RASS was 1/2. Plan to start proprofol at 50mcg/kg/min
[2021-03-19] MEDS: Heparin Sodium,Porcine 5,000 UNIT/ML VIAL 5400 UNIT IVPUSH (10:00)
--- NOTE | 2021-03-19 11:24 | MHC.CM.PN ---
Pt is intubated and unable to participate in CM assessment: Call placed HCPJames: no answer: call placed to HCP #2, Pts dtr, Anabel who states pt resides with James, has daily [facility] and O2 services from [facility] [place]. Anabel is pt's compensated [employer] and assists with transportation. Pt has a cane and working nebulizer. Pt has been COVID vaxed x 2 with a booster. Discussed d/c plans: Anabel feels pt would want to return to home with existing supports and would not want STR. CM to follow for modifications of d/c plan. Pt would need BLS transport. HCP on file and verified with Anabel: IMM verbally discussed and copy at bedside and in chart.
--- NOTE | 2021-03-19 11:39 | PM.CNCAR ---
History of Present Illness History of Present Illness Date of Service: 03/19/21 Requesting physician: Neal Shabazz Chief complaint: COVID-19/ Acute hypoxic resp failure, +trop Narrative: 60-year-old female with background history of osteoarthritis, CKD, anemia chronic disease, COPD, obstructive sleep apnea, history of lung cancer and restrictive lung disease who is presenting with COVID-19 infection and hypoxia. She has been intubated. She has elevated troponin levels. She was hypoxic on the ventilator and has been on heparin drip for presumed diagnosis of pulmonary embolism. She is anemic. History is not possible from the patient right now. She is on 60% oxygen right now. She is on propofol for sedation. EKG reviewed showing sinus rhythm at 98 beats per minute, normal axis, nonspecific T-wave changes, QT interval 531 milliseconds. ECG from yesterday has shown sinus tachycardia 102 beats per minute, normal axis, upsloping ST depressions in the precordial leads. QT interval 484 milliseconds PMFSH Past Medical History Medical History Anemia in chronic kidney disease Anxiety and depression Breast cancer screening by mammogram COPD (chronic obstructive pulmonary disease) COVID-19 vaccine series completed Dyslipidemia History of claustrophobia History of seizure HTN (hypertension) Hx of cardiac arrest Infected lip laceration Kidney disease Lung cancer Methadone maintenance therapy patient Multiple fractures of ribs O2 dependent LEO (obstructive sleep apnea) Respiratory failure Restrictive lung disease Tubular adenoma of colon Vitamin D deficiency Family History Family History Father Diabetes mellitus Mother Depression Mental health disorder Maternal Grandfather Colon cancer Sister No problems noted. Son No problems noted. Daughter No problems noted. Daughter No problems noted. Surgical History Surgical History H/O colonoscopy History of hand surgery History of laparoscopy History of tubal ligation S/P ureteral stent placement Social History Social History Household Members: Spouse Housing: House Are you a primary care transitions manager to a significant other at home: No Do you presently have visiting nurse or other home services: Yes Unable to assess alcohol history related to: Unable to respond Alcohol intake: never Patient Tobacco Use Status: Former Tobacco user Quit Date: 2011 Tobacco use type: Cigarette Years Smoked: 25 yrs Use of substances other than those prescribed or required for medical reasons: Unable to respond Currently Displaying Signs/Symptoms of Drug Intoxication Withdrawal: No Advance Directives: No Advance Directives Information Provided: No Recently lost weight without trying: Unsure Nutrition Risks: No Nutritional Risk Patient : No service: No Current occupational status: disabled Meds Allergies Allergy/AdvReac Type Severity Reaction Status Date / Time ciprofloxacin [From Cipro] Allergy Unknown HIVES/SWELLING, Verified 02/20/21 15:09 THROAT CLOSES shellfish derived Allergy Unknown UNKNOWN Verified 02/20/21 15:09 [SHELLFISH DERIVED] NSAIDS AdvReac Unknown avoid cue Verified 02/20/21 15:09 to kidney disease Active Medications: Current Medications Chlorhexidine Gluconate (Chlorhexidine Gluc Oral Rinse 15 Ml Mouthwash) 15 ml BUCCAL Q8H ANALISA Last Admin: 03/19/21 09:14 Dose: 15 ml Documented by: Heparin Sodium (Porcine) (Heparin Sodium,Porcine 5,000 Unit/Ml Vial) 5,400 unit 40 unit/kg (5400 unit) IVPUSH PROTOCOL BOLUS PRN; Protocol PRN Reason: 40 unit/kg - Heparin Protocol Heparin Sodium (Porcine) (Heparin Sodium,Porcine 5,000 Unit/Ml Vial) 10,000 unit IVPUSH PROTOCOL BOLUS PRN; Protocol PRN Reason: 80 unit/kg - Heparin Protocol Propofol (Diprivan) 1,000 mg in 100 mls @ 0 mls/hr IVCONT .Q0M ANALISA; Protocol Last Admin: 03/19/21 09:16 Dose: 50 mcg/kg/min, 40.82 mls/hr Documented by: Fentanyl (Sublimaze/Ns) 1,000 mcg in 100 mls @ 0 mls/hr IVCONT .Q0M ANALISA; Protocol Last Admin: 03/19/21 03:59 Dose: 150 mcg/hr, 15 mls/hr Documented by: Piperacillin Sod/Tazobactam (Sod 4.5 gm/ Sodium Chloride) 100 mls @ 200 mls/hr IV Q8H ANALISA Last Infusion: 03/19/21 05:10 Dose: Infused Documented by: Heparin Sodium/Sodium Chloride () 25,000 unit in 250 mls @ 0 mls/hr IVCONT .Q0M ANALISA; Protocol Last Admin: 03/19/21 03:14 Dose: 7.35 units/kg/hr, 10 mls/hr Documented by: Vancomycin HCl 750 mg/ Sodium (Chloride) 265 mls @ 265 mls/hr IV Q24H [facility] Albumin Human (Kedbumin 25 %) 100 mls @ 100 mls/hr IV Q6H [facility] Stop: 03/20/21 03:44 Last Infusion: 03/19/21 10:39 Dose: Infused Documented by: Methylprednisolone Sodium Succinate (Methylprednisolone Sod Succ 125 Mg/2 Ml Vial) 60 mg IVPUSH Q6H [facility] Last Admin: 03/19/21 09:14 Dose: 60 mg Documented by: Naloxone HCl (Naloxone Hcl 0.4 Mg/Ml Vial) 0.2 mg IVPUSH Q2M PRN PRN Reason: Excessive sedation or RR < 8 Pantoprazole Sodium (Pantoprazole Sodium 40 Mg/10 Ml Vial) 40 mg IVPUSH DAILY@0630 [facility] Last Admin: 03/19/21 05:35 Dose: 40 mg Documented by: Pharmacy Consult (Consult Rx Vancomycin Dosing) 1 each MISCELLANE DAILY PRN PRN Reason: Consult order Home Medications Medication Instructions Recorded Confirmed Last Taken Type albuterol sulfate 2.5 mg INHALATION Q6H PRN 04/25/20 10/15/20 10/09/20 History clonazepam 1 mg tablet (Klonopin) 1 mg PO TID 04/25/20 03/18/21 10/09/20 History diltiazem HCl 120 mg 1 cap PO DAILY 04/25/20 03/18/21 Unknown History capsule,extended release 24 hr hydroxyzine pamoate 50 mg capsule 50 mg PO BEDTIME PRN 04/25/20 03/18/21 Unknown History metolazone 2.5 mg tablet 2.5 mg PO 2XW 07/24/20 03/18/21 Unknown History torsemide 20 mg tablet 40 mg PO BID tab 08/03/20 03/18/21 Unknown History methadone 10 mg/mL oral concentrate 73 mg PO DAILY ml 09/04/20 10/15/20 Unknown History isosorbide mononitrate 60 mg 60 mg PO DAILY 03/18/21 03/18/21 Unknown History tablet,extended release 24 hr Physical Exam Vital Signs: Vital Signs: Last Vital Signs Temp 97.9 F 03/19/21 11:00 Pulse 83 03/19/21 11:00 Resp 16 03/19/21 11:00 BP 83/52 L 03/19/21 11:00 Pulse Ox 91 L 03/19/21 11:00 BMI result Body Mass Index 51.5 GENERAL APPEARANCE: Sedated and ventilated. NECK: no jugular venous distention. SKIN: no suspicious lesions, warm and dry. HEART: no murmurs, regular rate and rhythm. Left parasternal heave. LUNGS: clear to auscultation bilaterally. ABDOMEN: soft, nontender. EXTREMITIES: no edema. PERIPHERAL PULSES: equal. Objective Labs and Meds Result diagrams: 03/19/21 05:29 03/19/21 05:29 Lab results: Laboratory Results - last 24 hr 03/18/21 03/18/21 03/18/21 00:00 20:13 20:13 WBC 20.6 H RBC 4.09 L Hgb 11.2 L Hct 34.8 L MCV 85.1 MCH 27.4 MCHC 32.2 RDW 12.8 Plt Count 322 MPV 9.7 Immature Gran % (Auto) 0.9 H Neut % (Auto) 88.6 H Lymph % (Auto) 4.4 L [place] % (Auto) 6.0 Eos % (Auto) 0.0 Baso % (Auto) 0.1 Lymph # (Auto) 0.9 L [place] # (Auto) 1.2 Eos # (Auto) 0.0 Baso # (Auto) 0.0 Abs Immat Gran (auto) 0.18 H Absolute Neuts (auto) 18.3 H Absolute Nucleated RBC 0.000 Nucleated RBC % (auto) 0.0 Smear Tech's Comments PT INR aPTT Heparin Protocol D-Dimer High Sensitivty 2322 O2 Saturation ABG pH at Pt Temp ABG pCO2 at Pt Temp ABG pO2 at Pt Temp ABG HCO3 ABG Base Excess (Actual) VBG pH VBG pCO2 VBG pO2 VBG HCO3 VBG O2 Saturation VBG Base Excess Sodium Potassium Chloride Carbon Dioxide Anion Gap BUN Creatinine Estim Creat Clear Calc Estimated GFR POC Glucose Random Glucose Lactic Acid Lactic Acid F/U @ 2Hr 1.3 Calcium Phosphorus Magnesium Total Bilirubin Direct Bilirubin AST ALT Alkaline Phosphatase Ammonia Troponin I High Sens B-Natriuretic Peptide Total Protein Albumin Urine Color Urine Appearance Urine pH Ur Specific [place] Urine Protein Urine Glucose (UA) Urine Ketones Urine Blood Urine Nitrite Ur Leukocyte Esterase Urine RBC Urine WBC Ur Squamous Epith Cells Urine Bacteria Urine Opiates Screen Urine Fentanyl Screen Ur Barbiturates Screen Ur Phencyclidine Scrn Ur Amphetamines Screen U Benzodiazepines Scrn Urine Cocaine Screen U Marijuana (THC) Screen COVID-19 ([facility]) COVID-19 Clin Com 03/18/21 03/18/21 03/18/21 20:13 20:13 20:13 WBC RBC Hgb Hct MCV MCH MCHC RDW Plt Count MPV Immature Gran % (Auto) Neut % (Auto) Lymph % (Auto) [place] % (Auto) Eos % (Auto) Baso % (Auto) Lymph # (Auto) [place] # (Auto) Eos # (Auto) Baso # (Auto) Abs Immat Gran (auto) Absolute Neuts (auto) Absolute Nucleated RBC Nucleated RBC % (auto) Smear Tech's Comments PT INR aPTT Heparin Protocol D-Dimer High Sensitivty O2 Saturation ABG pH at Pt Temp ABG pCO2 at Pt Temp ABG pO2 at Pt Temp ABG HCO3 ABG Base Excess (Actual) VBG pH VBG pCO2 VBG pO2 VBG HCO3 VBG O2 Saturation VBG Base Excess Sodium 140 Potassium 2.6 L D Chloride 92 L Carbon Dioxide 28 Anion Gap 23 H BUN 131 H Creatinine 2.54 H Estim Creat Clear Calc 33.2 Estimated GFR 19 POC Glucose Random Glucose 120 H Lactic Acid Lactic Acid F/U @ 2Hr Calcium 8.6 Phosphorus Magnesium Total Bilirubin 0.7 Direct Bilirubin 0.2 AST 74 H ALT 31 Alkaline Phosphatase 70 D Ammonia 35 Troponin I High Sens 68.2 H* B-Natriuretic Peptide 115 H Total Protein 7.0 Albumin 3.8 Urine Color Urine Appearance Urine pH Ur Specific [place] Urine Protein Urine Glucose (UA) Urine Ketones Urine Blood Urine Nitrite Ur Leukocyte Esterase Urine RBC Urine WBC Ur Squamous Epith Cells Urine Bacteria Urine Opiates Screen Urine Fentanyl Screen Ur Barbiturates Screen Ur Phencyclidine Scrn Ur Amphetamines Screen U Benzodiazepines Scrn Urine Cocaine Screen U Marijuana (THC) Screen COVID-19 ([facility]LEY) COVID-19 Clin Com 03/18/21 03/18/21 03/18/21 20:13 20:13 20:13 WBC RBC Hgb Hct MCV MCH MCHC RDW Plt Count MPV Immature Gran % (Auto) Neut % (Auto) Lymph % (Auto) [place] % (Auto) Eos % (Auto) Baso % (Auto) Lymph # (Auto) [place] # (Auto) Eos # (Auto) Baso # (Auto) Abs Immat Gran (auto) Absolute Neuts (auto) Absolute Nucleated RBC Nucleated RBC % (auto) Smear Tech's Comments PT INR aPTT Heparin Protocol D-Dimer High Sensitivty O2 Saturation ABG pH at Pt Temp ABG pCO2 at Pt Temp ABG pO2 at Pt Temp ABG HCO3 ABG Base Excess (Actual) VBG pH VBG pCO2 VBG pO2 VBG HCO3 VBG O2 Saturation VBG Base Excess Sodium Potassium Chloride Carbon Dioxide Anion Gap BUN Creatinine Estim Creat Clear Calc Estimated GFR POC Glucose Random Glucose Lactic Acid 2.1 H* Lactic Acid F/U @ 2Hr Calcium Phosphorus Magnesium Total Bilirubin Direct Bilirubin AST ALT Alkaline Phosphatase Ammonia Troponin I High Sens B-Natriuretic Peptide Total Protein Albumin Urine Color YELLOW Urine Appearance CLEAR Urine pH 6.5 Ur Specific [place] 1.010 Urine Protein 1+ H Urine Glucose (UA) NEG Urine Ketones NEG Urine Blood 2+ H Urine Nitrite NEG Ur Leukocyte Esterase NEG Urine RBC 1-4 Urine WBC 0 Ur Squamous Epith Cells 1+ Urine Bacteria TRACE Urine Opiates Screen Urine Fentanyl Screen Ur Barbiturates Screen Ur Phencyclidine Scrn Ur Amphetamines Screen U Benzodiazepines Scrn Urine Cocaine Screen U Marijuana (THC) Screen COVID-19 (STANLEY) Positive A COVID-19 Clin Com See Note 03/18/21 03/18/21 03/18/21 20:13 20:32 22:20 WBC RBC Hgb Hct MCV MCH MCHC RDW Plt Count MPV Immature Gran % (Auto) Neut % (Auto) Lymph % (Auto) [place] % (Auto) Eos % (Auto) Baso % (Auto) Lymph # (Auto) [place] # (Auto) Eos # (Auto) Baso # (Auto) Abs Immat Gran (auto) Absolute Neuts (auto) Absolute Nucleated RBC Nucleated RBC % (auto) Smear Tech's Comments PT INR aPTT Heparin Protocol D-Dimer High Sensitivty O2 Saturation 97.0 ABG pH at Pt Temp 7.45 ABG pCO2 at Pt Temp 37 ABG pO2 at Pt Temp 124 H ABG HCO3 26 ABG Base Excess (Actual) 2.3 VBG pH 7.82 H* VBG pCO2 20 VBG pO2 142 VBG HCO3 33 H VBG O2 Saturation 99.0 VBG Base Excess 16.0 Sodium Potassium Chloride Carbon Dioxide Anion Gap BUN Creatinine Estim Creat Clear Calc Estimated GFR POC Glucose Random Glucose Lactic Acid Lactic Acid F/U @ 2Hr Calcium Phosphorus Magnesium Total Bilirubin Direct Bilirubin AST ALT Alkaline Phosphatase Ammonia Troponin I High Sens B-Natriuretic Peptide Total Protein Albumin Urine Color Urine Appearance Urine pH Ur Specific [place] Urine Protein Urine Glucose (UA) Urine Ketones Urine Blood Urine Nitrite Ur Leukocyte Esterase Urine RBC Urine WBC Ur Squamous Epith Cells Urine Bacteria Urine Opiates Screen POSITIVE H Urine Fentanyl Screen POSITIVE H Ur Barbiturates Screen Not Detected Ur Phencyclidine Scrn Not Detected Ur Amphetamines Screen Not Detected U Benzodiazepines Scrn Not Detected Urine Cocaine Screen Not Detected U Marijuana (THC) Screen Not Detected COVID-19 (STANLEY) COVID-19 Clin Com 03/18/21 03/19/21 03/19/21 22:21 01:29 02:05 WBC RBC Hgb Hct MCV MCH MCHC RDW Plt Count MPV Immature Gran % (Auto) Neut % (Auto) Lymph % (Auto) [place] % (Auto) Eos % (Auto) Baso % (Auto) Lymph # (Auto) [place] # (Auto) Eos # (Auto) Baso # (Auto) Abs Immat Gran (auto) Absolute Neuts (auto) Absolute Nucleated RBC Nucleated RBC % (auto) Smear Tech's Comments PT INR aPTT Heparin Protocol D-Dimer High Sensitivty O2 Saturation ABG pH at Pt Temp ABG pCO2 at Pt Temp ABG pO2 at Pt Temp ABG HCO3 ABG Base Excess (Actual) VBG pH VBG pCO2 VBG pO2 VBG HCO3 VBG O2 Saturation VBG Base Excess Sodium 141 Potassium 2.7 L Chloride 101 Carbon Dioxide 23 Anion Gap 20 BUN 122 H Creatinine 2.32 H Estim Creat Clear Calc 36.4 Estimated GFR 22 POC Glucose 199 H Random Glucose 222 H Lactic Acid Lactic Acid F/U @ 2Hr Calcium 7.5 L D Phosphorus 2.9 Magnesium 1.0 L* Total Bilirubin Direct Bilirubin AST ALT Alkaline Phosphatase Ammonia Troponin I High Sens 851.1 H* D B-Natriuretic Peptide Total Protein Albumin Urine Color Urine Appearance Urine pH Ur Specific [place] Urine Protein Urine Glucose (UA) Urine Ketones Urine Blood Urine Nitrite Ur Leukocyte Esterase Urine RBC Urine WBC Ur Squamous Epith Cells Urine Bacteria Urine Opiates Screen Urine Fentanyl Screen Ur Barbiturates Screen Ur Phencyclidine Scrn Ur Amphetamines Screen U Benzodiazepines Scrn Urine Cocaine Screen U Marijuana (THC) Screen COVID-19 (STANLEY) COVID-19 [employer] Com 03/19/21 03/19/21 03/19/21 04:31 05:29 05:29 WBC 20.4 H RBC 3.01 L D Hgb 8.3 L D Hct 26.2 L D MCV 87.0 MCH 27.6 MCHC 31.7 RDW 12.8 Plt Count 283 MPV 9.9 Immature Gran % (Auto) 0.7 H Neut % (Auto) 96.6 H Lymph % (Auto) 1.4 L [place] % (Auto) 1.3 L Eos % (Auto) 0.0 Baso % (Auto) 0.0 Lymph # (Auto) 0.3 L [place] # (Auto) 0.3 Eos # (Auto) 0.0 Baso # (Auto) 0.0 Abs Immat Gran (auto) 0.15 H Absolute Neuts (auto) 19.6 H Absolute Nucleated RBC 0.000 Nucleated RBC % (auto) 0.0 Smear Tech's Comments VERIFIED PT 13.1 H INR 1.2 H aPTT Heparin Protocol D-Dimer High Sensitivty O2 Saturation ABG pH at Pt Temp ABG pCO2 at Pt Temp ABG pO2 at Pt Temp ABG HCO3 ABG Base Excess (Actual) VBG pH VBG pCO2 VBG pO2 VBG HCO3 VBG O2 Saturation VBG Base Excess Sodium 141 Potassium 3.5 D Chloride 101 Carbon Dioxide 20 L Anion Gap 24 H BUN 116 H Creatinine 2.36 H Estim Creat Clear Calc 35.8 Estimated GFR 21 POC Glucose Random Glucose 246 H Lactic Acid Lactic Acid F/U @ 2Hr Calcium 7.4 L Phosphorus 3.9 Magnesium 1.5 L Total Bilirubin 0.5 Direct Bilirubin AST 67 H ALT 39 H Alkaline Phosphatase 60 Ammonia Troponin I High Sens B-Natriuretic Peptide Total Protein 5.6 L Albumin 3.0 L D Urine Color Urine Appearance Urine pH Ur Specific [place] Urine Protein Urine Glucose (UA) Urine Ketones Urine Blood Urine Nitrite Ur Leukocyte Esterase Urine RBC Urine WBC Ur Squamous Epith Cells Urine Bacteria Urine Opiates Screen Urine Fentanyl Screen Ur Barbiturates Screen Ur Phencyclidine Scrn Ur Amphetamines Screen U Benzodiazepines Scrn Urine Cocaine Screen U Marijuana (THC) Screen COVID-19 (STANLEY) COVID-19 [employer] Com 03/19/21 03/19/21 03/19/21 05:56 09:35 09:35 WBC RBC Hgb Hct MCV MCH MCHC RDW Plt Count MPV Immature Gran % (Auto) Neut % (Auto) Lymph % (Auto) [place] % (Auto) Eos % (Auto) Baso % (Auto) Lymph # (Auto) [place] # (Auto) Eos # (Auto) Baso # (Auto) Abs Immat Gran (auto) Absolute Neuts (auto) Absolute Nucleated RBC Nucleated RBC % (auto) Smear Tech's Comments PT INR aPTT Heparin Protocol 49.8 L D-Dimer High Sensitivty O2 Saturation ABG pH at Pt Temp ABG pCO2 at Pt Temp ABG pO2 at Pt Temp ABG HCO3 ABG Base Excess (Actual) VBG pH 7.45 H VBG pCO2 34 VBG pO2 54 VBG HCO3 23 VBG O2 Saturation 83.0 VBG Base Excess 0.5 Sodium Potassium Chloride Carbon Dioxide Anion Gap BUN Creatinine Estim Creat Clear Calc Estimated GFR POC Glucose Random Glucose Lactic Acid Lactic Acid F/U @ 2Hr Calcium Phosphorus Magnesium Total Bilirubin Direct Bilirubin AST ALT Alkaline Phosphatase Ammonia Troponin I High Sens 2812.1 H* D B-Natriuretic Peptide Total Protein Albumin Urine Color Urine Appearance Urine pH Ur Specific [place] Urine Protein Urine Glucose (UA) Urine Ketones Urine Blood Urine Nitrite Ur Leukocyte Esterase Urine RBC Urine WBC Ur Squamous Epith Cells Urine Bacteria Urine Opiates Screen Urine Fentanyl Screen Ur Barbiturates Screen Ur Phencyclidine Scrn Ur Amphetamines Screen U Benzodiazepines Scrn Urine Cocaine Screen U Marijuana (THC) Screen COVID-19 ([facility]) COVID-19 Clin Com Imaging Radiologist's impression: Impressions Chest X-Ray 03/18/21 21:24 IMPRESSION: Increased interstitial prominence bilaterally and new more focal hazy opacities in the left lower lobe in which an atypical infectious or inflammatory process is suspected. Recommend correlation clinically and a follow-up study to ensure resolution after appropriate treatment. Chest CT 03/19/21 00:50 IMPRESSION: 1. Regions of dense opacification in the lower lobes, right greater than left, with additional areas of consolidation and groundglass opacity in the upper lobes as described above. Considerations include multifocal pneumonia and/or sequelae of aspiration. 2. Upper lobe predominant emphysema. Fleischner guidelines were followed. Chest X-Ray 03/19/21 02:16 IMPRESSION: 1. Right IJ central line courses along the neck with tip not included on the image; repositioning recommended. 2. Redemonstrated regions of bibasilar and right midlung opacity, better characterized on recent CT. This critical result was discussed with Anupam Cobb NP on 03/19/2021 2:25 AM, and it was ascertained that the content and urgency of the report was understood at the time of direct communication. Venous Duplex 03/19/21 10:03 IMPRESSION: No DVT demonstrated in the bilateral upper extremities Assessment and Plan (1) Acute respiratory distress: Status: Acute (2) COVID-19: Status: Acute (3) Elevated troponin: Status: Acute Plan Pleasant 60-year-old female who is presenting for acute respiratory failure. She has elevated troponins. She has been hypotensive and hypoxic at think the troponin levels can be explained from a type 2 injury. She has been treated for presumed pulmonary embolism given COVID-19 infection and significant hypoxia. Will do echocardiogram to assess for any right ventricular dysfunction. She does have left parasternal heave which usually is a sign of right ventricular enlargement. Monitor hemoglobin closely. She has prolonged QT interval. Medications should be cautiously added. Potassium and magnesium should be monitored. Thank you for allowing me to participate in the care of your patient. Please feel free to contact me if you have any questions. Procedures Date of Service Date of Service: 03/19/21
--- NOTE | 2021-03-19 13:08 | PM.CCPN ---
Subjective Subjective Date of Service: 03/19/21 Interval History: 60-year-old lady with underlying history of COPD on 2 L of supplemental oxygen, lung cancer on palliative XRT, polysubstance abuse now on methadone, seizure disorder, CKD admitted on 03/18/2021 with worsening alteration of mental status. On ER evaluation patient was noted to be COVID-19 positive, tachycardic and tachypneic, profoundly confused, then acutely developed hypoxia refractory to noninvasive supplemental oxygen support requiring intubation and ventilatory support. Patient was empirically covered with broad-spectrum antibiotic and transferred to intensive care unit. Overnight her troponin trended up, but she had no EKG changes. She was started on heparin drip for NSTEMI and /or possible pulmonary emboli ( unable to obtain V/Q secondary to body habitus and CT angiogram secondary to renal dysfunction to rule out). Critical Care Time (minutes): 45 Physical Exam Vital Signs: Vital Signs: Last Vital Signs Temp 97.9 F 03/19/21 13:00 Pulse 80 03/19/21 13:00 Resp 13 03/19/21 13:00 BP 93/58 L 03/19/21 13:00 Pulse Ox 93 03/19/21 13:00 BMI result Body Mass Index 51.5 Const: General: no acute distress and other ( sedated on the vent) Nutritional Appearance: obese morbidly obese Eyes: Sclerae: sclerae normal EOM: EOMs intact bilaterally Neck: Neck: Yes no lymphadenopathy, Yes trachea midline and Yes supple Resp: Auscultation: crackles ( diffuse bilateral) Cardio: Rate: regular rate Rhythm: regular rhythm Heart sounds: no gallops, no murmurs and no rubs GI: Palpation (GI): Soft to palpation and Other GI palpation findings present ( Nontender) Auscultation: normal bowel sounds Extrem: General: No clubbing, No cyanosis and Yes pedal edema ( 1+ bilateral) Objective Data Labs CBC & Chem 7: 03/19/21 05:29 03/19/21 05:29 Labs: Laboratory Results - last 24 hr 03/18/21 03/18/21 03/18/21 00:00 20:13 20:13 WBC 20.6 H RBC 4.09 L Hgb 11.2 L Hct 34.8 L MCV 85.1 MCH 27.4 MCHC 32.2 RDW 12.8 Plt Count 322 MPV 9.7 Immature Gran % (Auto) 0.9 H Neut % (Auto) 88.6 H Lymph % (Auto) 4.4 L Bonner % (Auto) 6.0 Eos % (Auto) 0.0 Baso % (Auto) 0.1 Lymph # (Auto) 0.9 L Bonner # (Auto) 1.2 Eos # (Auto) 0.0 Baso # (Auto) 0.0 Abs Immat Gran (auto) 0.18 H Absolute Neuts (auto) 18.3 H Absolute Nucleated RBC 0.000 Nucleated RBC % (auto) 0.0 Smear Tech's Comments PT INR aPTT Heparin Protocol D-Dimer High Sensitivty 2322 O2 Saturation ABG pH at Pt Temp ABG pCO2 at Pt Temp ABG pO2 at Pt Temp ABG HCO3 ABG Base Excess (Actual) VBG pH VBG pCO2 VBG pO2 VBG HCO3 VBG O2 Saturation VBG Base Excess Sodium Potassium Chloride Carbon Dioxide Anion Gap BUN Creatinine Estim Creat Clear Calc Estimated GFR POC Glucose Random Glucose Lactic Acid Lactic Acid F/U @ 2Hr 1.3 Calcium Phosphorus Magnesium Total Bilirubin Direct Bilirubin AST ALT Alkaline Phosphatase Ammonia Troponin I High Sens B-Natriuretic Peptide Total Protein Albumin Urine Color Urine Appearance Urine pH Ur Specific [place] Urine Protein Urine Glucose (UA) Urine Ketones Urine Blood Urine Nitrite Ur Leukocyte Esterase Urine RBC Urine WBC Ur Squamous Epith Cells Urine Bacteria Urine Opiates Screen Urine Fentanyl Screen Ur Barbiturates Screen Ur Phencyclidine Scrn Ur Amphetamines Screen U Benzodiazepines Scrn Urine Cocaine Screen U Marijuana (THC) Screen COVID-19 (STANLEY) COVID-19 Clin Com 03/18/21 03/18/21 03/18/21 20:13 20:13 20:13 WBC RBC Hgb Hct MCV MCH MCHC RDW Plt Count MPV Immature Gran % (Auto) Neut % (Auto) Lymph % (Auto) Bonner % (Auto) Eos % (Auto) Baso % (Auto) Lymph # (Auto) Bonner # (Auto) Eos # (Auto) Baso # (Auto) Abs Immat Gran (auto) Absolute Neuts (auto) Absolute Nucleated RBC Nucleated RBC % (auto) Smear Tech's Comments PT INR aPTT Heparin Protocol D-Dimer High Sensitivty O2 Saturation ABG pH at Pt Temp ABG pCO2 at Pt Temp ABG pO2 at Pt Temp ABG HCO3 ABG Base Excess (Actual) VBG pH VBG pCO2 VBG pO2 VBG HCO3 VBG O2 Saturation VBG Base Excess Sodium 140 Potassium 2.6 L D Chloride 92 L Carbon Dioxide 28 Anion Gap 23 H BUN 131 H Creatinine 2.54 H Estim Creat Clear Calc 33.2 Estimated GFR 19 POC Glucose Random Glucose 120 H Lactic Acid Lactic Acid F/U @ 2Hr Calcium 8.6 Phosphorus Magnesium Total Bilirubin 0.7 Direct Bilirubin 0.2 AST 74 H ALT 31 Alkaline Phosphatase 70 D Ammonia 35 Troponin I High Sens 68.2 H* B-Natriuretic Peptide 115 H Total Protein 7.0 Albumin 3.8 Urine Color Urine Appearance Urine pH Ur Specific [place] Urine Protein Urine Glucose (UA) Urine Ketones Urine Blood Urine Nitrite Ur Leukocyte Esterase Urine RBC Urine WBC Ur Squamous Epith Cells Urine Bacteria Urine Opiates Screen Urine Fentanyl Screen Ur Barbiturates Screen Ur Phencyclidine Scrn Ur Amphetamines Screen U Benzodiazepines Scrn Urine Cocaine Screen U Marijuana (THC) Screen COVID-19 (STANLEY) COVID-19 Clin Com 03/18/21 03/18/21 03/18/21 20:13 20:13 20:13 WBC RBC Hgb Hct MCV MCH MCHC RDW Plt Count MPV Immature Gran % (Auto) Neut % (Auto) Lymph % (Auto) Bonner % (Auto) Eos % (Auto) Baso % (Auto) Lymph # (Auto) Bonner # (Auto) Eos # (Auto) Baso # (Auto) Abs Immat Gran (auto) Absolute Neuts (auto) Absolute Nucleated RBC Nucleated RBC % (auto) Smear Tech's Comments PT INR aPTT Heparin Protocol D-Dimer High Sensitivty O2 Saturation ABG pH at Pt Temp ABG pCO2 at Pt Temp ABG pO2 at Pt Temp ABG HCO3 ABG Base Excess (Actual) VBG pH VBG pCO2 VBG pO2 VBG HCO3 VBG O2 Saturation VBG Base Excess Sodium Potassium Chloride Carbon Dioxide Anion Gap BUN Creatinine Estim Creat Clear Calc Estimated GFR POC Glucose Random Glucose Lactic Acid 2.1 H* Lactic Acid F/U @ 2Hr Calcium Phosphorus Magnesium Total Bilirubin Direct Bilirubin AST ALT Alkaline Phosphatase Ammonia Troponin I High Sens B-Natriuretic Peptide Total Protein Albumin Urine Color YELLOW Urine Appearance CLEAR Urine pH 6.5 Ur Specific [place] 1.010 Urine Protein 1+ H Urine Glucose (UA) NEG Urine Ketones NEG Urine Blood 2+ H Urine Nitrite NEG Ur Leukocyte Esterase NEG Urine RBC 1-4 Urine WBC 0 Ur Squamous Epith Cells 1+ Urine Bacteria TRACE Urine Opiates Screen Urine Fentanyl Screen Ur Barbiturates Screen Ur Phencyclidine Scrn Ur Amphetamines Screen U Benzodiazepines Scrn Urine Cocaine Screen U Marijuana (THC) Screen COVID-19 (STANLEY) Positive A COVID-19 Clin Com See Note 03/18/21 03/18/21 03/18/21 20:13 20:32 22:20 WBC RBC Hgb Hct MCV MCH MCHC RDW Plt Count MPV Immature Gran % (Auto) Neut % (Auto) Lymph % (Auto) Bonner % (Auto) Eos % (Auto) Baso % (Auto) Lymph # (Auto) Bon[place] # (Auto) Eos # (Auto) Baso # (Auto) Abs Immat Gran (auto) Absolute Neuts (auto) Absolute Nucleated RBC Nucleated RBC % (auto) Smear Tech's Comments PT INR aPTT Heparin Protocol D-Dimer High Sensitivty O2 Saturation 97.0 ABG pH at Pt Temp 7.45 ABG pCO2 at Pt Temp 37 ABG pO2 at Pt Temp 124 H ABG HCO3 26 ABG Base Excess (Actual) 2.3 VBG pH 7.82 H* VBG pCO2 20 VBG pO2 142 VBG HCO3 33 H VBG O2 Saturation 99.0 VBG Base Excess 16.0 Sodium Potassium Chloride Carbon Dioxide Anion Gap BUN Creatinine Estim Creat Clear Calc Estimated GFR POC Glucose Random Glucose Lactic Acid Lactic Acid F/U @ 2Hr Calcium Phosphorus Magnesium Total Bilirubin Direct Bilirubin AST ALT Alkaline Phosphatase Ammonia Troponin I High Sens B-Natriuretic Peptide Total Protein Albumin Urine Color Urine Appearance Urine pH Ur Specific [place] Urine Protein Urine Glucose (UA) Urine Ketones Urine Blood Urine Nitrite Ur Leukocyte Esterase Urine RBC Urine WBC Ur Squamous Epith Cells Urine Bacteria Urine Opiates Screen POSITIVE H Urine Fentanyl Screen POSITIVE H Ur Barbiturates Screen Not Detected Ur Phencyclidine Scrn Not Detected Ur Amphetamines Screen Not Detected U Benzodiazepines Scrn Not Detected Urine Cocaine Screen Not Detected U Marijuana (THC) Screen Not Detected COVID-19 (STANLEY) COVID-19 Clin Com 03/18/21 03/19/21 03/19/21 22:21 01:29 02:05 WBC RBC Hgb Hct MCV MCH MCHC RDW Plt Count MPV Immature Gran % (Auto) Neut % (Auto) Lymph % (Auto) Bon[place] % (Auto) Eos % (Auto) Baso % (Auto) Lymph # (Auto) [place] # (Auto) Eos # (Auto) Baso # (Auto) Abs Immat Gran (auto) Absolute Neuts (auto) Absolute Nucleated RBC Nucleated RBC % (auto) Smear Tech's Comments PT INR aPTT Heparin Protocol D-Dimer High Sensitivty O2 Saturation ABG pH at Pt Temp ABG pCO2 at Pt Temp ABG pO2 at Pt Temp ABG HCO3 ABG Base Excess (Actual) VBG pH VBG pCO2 VBG pO2 VBG HCO3 VBG O2 Saturation VBG Base Excess Sodium 141 Potassium 2.7 L Chloride 101 Carbon Dioxide 23 Anion Gap 20 BUN 122 H Creatinine 2.32 H Estim Creat Clear Calc 36.4 Estimated GFR 22 POC Glucose 199 H Random Glucose 222 H Lactic Acid Lactic Acid F/U @ 2Hr Calcium 7.5 L D Phosphorus 2.9 Magnesium 1.0 L* Total Bilirubin Direct Bilirubin AST ALT Alkaline Phosphatase Ammonia Troponin I High Sens 851.1 H* D B-Natriuretic Peptide Total Protein Albumin Urine Color Urine Appearance Urine pH Ur Specific [place] Urine Protein Urine Glucose (UA) Urine Ketones Urine Blood Urine Nitrite Ur Leukocyte Esterase Urine RBC Urine WBC Ur Squamous Epith Cells Urine Bacteria Urine Opiates Screen Urine Fentanyl Screen Ur Barbiturates Screen Ur Phencyclidine Scrn Ur Amphetamines Screen U Benzodiazepines Scrn Urine Cocaine Screen U Marijuana (THC) Screen COVID-19 (STANLEY) COVID-19 Clin Com 03/19/21 03/19/21 03/19/21 04:31 05:29 05:29 WBC 20.4 H RBC 3.01 L D Hgb 8.3 L D Hct 26.2 L D MCV 87.0 MCH 27.6 MCHC 31.7 RDW 12.8 Plt Count 283 MPV 9.9 Immature Gran % (Auto) 0.7 H Neut % (Auto) 96.6 H Lymph % (Auto) 1.4 L [place] % (Auto) 1.3 L Eos % (Auto) 0.0 Baso % (Auto) 0.0 Lymph # (Auto) 0.3 L [place] # (Auto) 0.3 Eos # (Auto) 0.0 Baso # (Auto) 0.0 Abs Immat Gran (auto) 0.15 H Absolute Neuts (auto) 19.6 H Absolute Nucleated RBC 0.000 Nucleated RBC % (auto) 0.0 Smear Tech's Comments VERIFIED PT 13.1 H INR 1.2 H aPTT Heparin Protocol D-Dimer High Sensitivty O2 Saturation ABG pH at Pt Temp ABG pCO2 at Pt Temp ABG pO2 at Pt Temp ABG HCO3 ABG Base Excess (Actual) VBG pH VBG pCO2 VBG pO2 VBG HCO3 VBG O2 Saturation VBG Base Excess Sodium 141 Potassium 3.5 D Chloride 101 Carbon Dioxide 20 L Anion Gap 24 H BUN 116 H Creatinine 2.36 H Estim Creat Clear Calc 35.8 Estimated GFR 21 POC Glucose Random Glucose 246 H Lactic Acid Lactic Acid F/U @ 2Hr Calcium 7.4 L Phosphorus 3.9 Magnesium 1.5 L Total Bilirubin 0.5 Direct Bilirubin AST 67 H ALT 39 H Alkaline Phosphatase 60 Ammonia Troponin I High Sens B-Natriuretic Peptide Total Protein 5.6 L Albumin 3.0 L D Urine Color Urine Appearance Urine pH Ur Specific [place] Urine Protein Urine Glucose (UA) Urine Ketones Urine Blood Urine Nitrite Ur Leukocyte Esterase Urine RBC Urine WBC Ur Squamous Epith Cells Urine Bacteria Urine Opiates Screen Urine Fentanyl Screen Ur Barbiturates Screen Ur Phencyclidine Scrn Ur Amphetamines Screen U Benzodiazepines Scrn Urine Cocaine Screen U Marijuana (THC) Screen COVID-19 (STANLEY) COVID-19 Clin Com 03/19/21 03/19/21 03/19/21 05:56 09:35 09:35 WBC RBC Hgb Hct MCV MCH MCHC RDW Plt Count MPV Immature Gran % (Auto) Neut % (Auto) Lymph % (Auto) [place] % (Auto) Eos % (Auto) Baso % (Auto) Lymph # (Auto) [place] # (Auto) Eos # (Auto) Baso # (Auto) Abs Immat Gran (auto) Absolute Neuts (auto) Absolute Nucleated RBC Nucleated RBC % (auto) Smear Tech's Comments PT INR aPTT Heparin Protocol 49.8 L D-Dimer High Sensitivty O2 Saturation ABG pH at Pt Temp ABG pCO2 at Pt Temp ABG pO2 at Pt Temp ABG HCO3 ABG Base Excess (Actual) VBG pH 7.45 H VBG pCO2 34 VBG pO2 54 VBG HCO3 23 VBG O2 Saturation 83.0 VBG Base Excess 0.5 Sodium Potassium Chloride Carbon Dioxide Anion Gap BUN Creatinine Estim Creat Clear Calc Estimated GFR POC Glucose Random Glucose Lactic Acid Lactic Acid F/U @ 2Hr Calcium Phosphorus Magnesium Total Bilirubin Direct Bilirubin AST ALT Alkaline Phosphatase Ammonia Troponin I High Sens 2812.1 H* D B-Natriuretic Peptide Total Protein Albumin Urine Color Urine Appearance Urine pH Ur Specific [place] Urine Protein Urine Glucose (UA) Urine Ketones Urine Blood Urine Nitrite Ur Leukocyte Esterase Urine RBC Urine WBC Ur Squamous Epith Cells Urine Bacteria Urine Opiates Screen Urine Fentanyl Screen Ur Barbiturates Screen Ur Phencyclidine Scrn Ur Amphetamines Screen U Benzodiazepines Scrn Urine Cocaine Screen U Marijuana (THC) Screen COVID-19 (STANLEY) COVID-19 Clin Com Microbiology Microbiology Results: Microbiology 03/18/21 19:37 Blood - Venous Blood Culture - Final Progress Note: A&P Assessment and plan (1) Acute respiratory failure with hypoxia: Status: Acute (2) COVID-19: Status: Acute (3) JOAN (acute kidney injury): Status: Acute (4) Elevated troponin: Status: Acute (5) CKD (chronic kidney disease) stage 4, GFR 15-29 ml/min: Status: Acute (6) Lung cancer: Status: Acute (7) LEO (obstructive sleep apnea): Status: Acute (8) COPD (chronic obstructive pulmonary disease): Status: Acute Plan Assessment: 60-year-old lady with underlying morbid obesity, LEO, obesity hyperventilation COPD 2 L dependent, remote history of cardiac arrest, CKD stage IV admitted with alteration of mental status, uremia COVID-19, acute hypoxic respiratory failure now requiring ventilatory support. Plan: Neuro: acute metabolic encephalopathy likely secondary to uremia Cardiac: up trending troponin, NSTEMI versus PE versus demand ischemia. Cardiology service care appreciated. 2D echocardiogram is pending. Continues on heparin drip. Pulmonary: Acute hypoxic respiratory failure on the background of COVID-19 now requiring ventilatory support. May have a component of PE. Empirically on heparin drip. Continue to titrate off ventilatory support as tolerated. Renal: Acute renal failure on the background of chronic kidney disease, may be related to COVID-19. Now with worsening uremia. Nephrology consultation requested. Non oliguric. Continue to monitor renal indices and urine output. Endo: No acute issues. GI: No acute issues. ID: COVID-19 now and is significant hypoxemia, started on dexamethasone and renal adjusted baricitinib. Heme/Onc: No acute issues. Psych: No acute issues. Miscellaneous: No acute issues. Prophylaxis: Heparin drip, ppi Diet: nothing by mouth Critical care time spent: 45 minutes Quality Stroke Does the patient have a stroke diagnosis?: No VTE Prior VTE?: No VTE Risk Level:: Medical - moderate - high VTE Device Contraindication: Treatment Not Indicated VTE Drug Contraindication: N/A - Med Ordered
[2021-03-19] MEDS: Piperacillin Sodium/Tazobactam 3.375 GM in 0.9 % Sodium Chloride 50 ML IV ×2 (14:16→17:55)
--- NOTE | 2021-03-19 15:00 | CA_ITS ---
Transthoracic Echocardiogram Patient (Last, First, Middle): Deirdre Galeas L Gender: Female Date of : 1960 Age: 60 Procedure Date: 03/19/2021 Procedure Type: Transthoracic Echocardiogram Location: ICU Height: 162.56 cm Weight: 90.07 kg BSA: 1.95 m2 Heart Rate: bpm BP: 76 / 47 mmHg Craft Manager: Referring MD: Neal Shabazz MD Symptoms: dyspnea, rising troponin Study Quality: Fair ECG Rhythm: Sinus Conclusions: - Normal left ventricular cavity size. There is mildly increased left ventricular wall thickness. The left ventricular systolic function is moderately decreased. The visually estimated ejection fraction is between 30-35%. - The entire apex, the mid anterior, mid inferior, mid anterolateral, mid inferoseptal, mid anteroseptal, and mid inferolateral segments are akinetic. - Moderately increased right ventricular cavity size. There is moderately decreased right ventricular systolic function. Findings Procedure Information Contrast agent, definity, is being given per protocol without apparent complications. Left Ventricle Normal left ventricular cavity size. There is mildly increased left ventricular wall thickness. The left ventricular systolic function is moderately decreased. The visually estimated ejection fraction is between 30 35%. There is evidence of regional wall motion abnormalities. Abnormal diastolic function is noted. Spectral Doppler is indicative of an impaired relaxation filling pattern. E/E prime ratio is between 8 and 15 consistent with indeterminate filling pressures. Wall Motion Rest Echo Findings The entire apex, the mid anterior, mid inferior, mid anterolateral, mid inferoseptal, mid anteroseptal, and mid inferolateral segments are akinetic. Right Ventricle Moderately increased right ventricular cavity size. There is moderately decreased right ventricular systolic function. Aortic Valve The aortic valve structure and function is likely normal. There is no aortic valve stenosis. There is no aortic valve regurgitation. Pulmonic Valve Normal pulmonic valve structure and function. There is trace pulmonic valve regurgitation. Tricuspid Valve The tricuspid valve was not well visualized. There is mild tricuspid valve regurgitation. Indeterminate right atrial pressure. PASP = 27 + right atrial pressure. Patient is intubated and cannot comment about RA pressure. Great Vessels The visualized portions of the pulmonary artery and branches are normal. Venous The inferior vena cava is dilated and does not collapse with inspiration. Pericardium/Pleural There is no evidence of pericardial effusion. Prior Study Comparison Significant changes compared to prior study dated: 04/28/2018. EF 30-35%, RWMA and RV dysfunction. Measurements 2D Linear Measurements IVSd: 1.03 0.6-0.9/0.6-1.0 cm LVIDd: 3.84 3.9-5.3/4.2-5.9 cm LVIDd Index: 1.97 2.4-3.2/2.2-3.1 cm/m2 LVIDs: 3.25 2.0-3.6 cm LVPWd: 1.07 0.7-1.1 cm Ao Root: 2.90 2.1-3.5 cm LA Diam: 4.10 2.7-3.8/3.0-4.0 cm LAIDs Index: 2.10 1.5-2.3 cm/m2 LV Mass: 159.08 67-162/88-224 g LV Mass Index: 81.58 43-95/49-115 g/m2 LVOT Diam: 2.00 3.0+(-)1.3 cm Mitral Valve MV Pk E: 0.47 MV PK A: 1.01 MV Decel Time: 136.00 E/A: 0.50 E'Lateral: 3.59 E'Medial: 4.57 E/E' Med: 10.30 E/E' Lat: 13.10 PHT: 40.00 MVA PHT: 5.50 Decel [place]: 3.46 Aortic Valve AoV Pk Keenan: 1.34 AoV Mn Keenan: 0.93 AoV VTI: 0.30 AoV Pk Grad: 7.00 Aov Mn Grad: 4.00 ALEXANDRE Cont.VTI: 2.04 LVOT LVOT Pk Keenan: 0.87 LVOT Mn Keenan: 0.61 LVOT VTI: 0.19 LVOT Pk Grad: 3.00 LVOT Mn Grad: 2.00 LVOT Diam: 2.00 LVOT Area: 3.14 Diastolic Function MV Pk E: 0.47 MV Pk A: 1.01 E/A: 0.50 E'Medial: 4.57 E/E' Med: 10.30 E' Laterial: 3.59 E/E' Lat: 13.10 Tricuspid Valve TR Pk Keenan: 2.54 TR Pk Grad: 26.00 Great Vessels Aorta Ao Root-2D: 2.90 2.0-3.7 cm Ao Asc: 3.20 2.1-3.4 cm Pulmonary Valve PV Pk Keenan: 0.88 Peak PV Grad: 3.00 Updated in Other Vendor System with Status of Final Philip Napier MD electronically signed on 03/19/2021 2:28:09 PM with status of Final
[2021-03-19] MEDS: vancomycin HCL 750 MG in 0.9 % Sodium Chloride 250 ML 265 MG IV (19:24)
[2021-03-19 22:13] LABS: PTT Heparin Drip 54.7 SEC (53-77.9)
[2021-03-20] VITALS (31 sets, daily range): BP systolic 92–135; BP diastolic 53–87; PULSE 51–101; RESP 14–24; TEMP 34.5–37.1; O2SAT 5–99; BMI 33.9
[2021-03-20] MEDS: Chlorhexidine Gluc Oral Rinse 15 ML MOUTHWASH BUCCAL ×4 (00:06→22:41)
[2021-03-20] MEDS: Heparin Sodium,Porcine/1/2NS 25,000 UNIT/250 ML IV.SOLN 12 UNIT IVCONT ×2 (00:08→22:41)
[2021-03-20] MEDS: Piperacillin Sodium/Tazobactam 3.375 GM in 0.9 % Sodium Chloride 50 ML IV ×4 (00:10→18:03)
[2021-03-20] MEDS: propofoL 1,000 MG/100 ML VIAL 40.82 MG IVCONT ×10 (00:10→21:52)
[2021-03-20] MEDS: Albumin Human 25 % 100 ML IV (02:21)
[2021-03-20 04:30] LABS: PTT Heparin Drip 55.3 SEC (53-77.9)
[2021-03-20] MEDS: fentaNYL citrate/NS 1,000 MCG/100 ML PLAST..BAG 15 MCG IVCONT (04:47)
[2021-03-20] MEDS: Pantoprazole Sodium 40 MG/10 ML VIAL IVPUSH (04:57)
[2021-03-20 05:37] LABS: VBG Base Excess 0.9 mmol/L; VBG HCO3 23 mmol/L (22-26); VBG pCO2 32 mmHg; VBG pH 7.47 (7.32-7.43); VBG pO2 63 mmHg
[2021-03-20 05:38] LABS: Venous Blood Gas Refer to POC result
[2021-03-20 05:59] LABS: MANUAL DIFF FLAG NO
[2021-03-20 06:12] LABS: Basophils Percent Auto 0.1 % (0-2); Hematocrit 26.2 % (37.0-47.0); Hemoglobin 8.4 g/dl (12.0-16.0); Imm Gran Abs Auto 0.22 X10*3/uL (0.00-0.03); Imm Gran Pct Auto 1.6 % (0.0-0.4); Lymphocytes Absolute Auto 0.4 X10*3/uL (1.2-4.9); Lymphocytes Percent Auto 2.9 % (20-40); Mean Corpuscular HGB Conc 32.1 g/dl (31.0-35.0); Mean Corpuscular Hemoglobin 27.6 pg (27.0-33.0); Mean Corpuscular Volume 86.2 fL (80.0-98.0); Monocytes Absolute Auto 0.9 X10*3/uL (0.1-1.2); Monocytes Percent Auto 6.6 % (2-11); NRBC Pct Auto 0.3 /100WBC (0.0-0.2); Neutrophils Absolute Auto 12.4 x10*3/uL (2.0-8.3); Neutrophils Percent Auto 88.8 % (45-73); Platelet Count 271 X10*3/uL (160-400); Red Blood Count 3.04 X10*6/uL (4.20-5.50)
[2021-03-20 07:16] LABS: Alanine Aminotransferase 31 U/L (0-31); Albumin Level 3.8 g/dL (3.5-5.0); Alkaline Phosphatase 47 U/L (39-117); Anion Gap 21 (12-20); Aspartate Amino Transferase 37 U/L (5-31); Bilirubin Total 0.3 mg/dL (0.0-1.0); Blood Urea Nitrogen 102 mg/dL (9-16); Calcium 8.7 mg/dL (8.4-10.2); Carbon Dioxide 22 mmol/L (22-29); Chloride 105 mmol/L (96-108); Creatinine Clr Calc Pharmacy 30.1; Estimated Glomerular Filt Rate 23; Glucose Random 186 mg/dL (60-115); Phosphorus 4.4 mg/dL (2.7-4.5); Potassium 2.6 mmol/L (3.3-5.1); Sodium 146 mmol/L (135-145); Total Protein 6.3 g/dL (6.5-8.0)
[2021-03-20] MEDS: dexAMETHasone sod phosphate 4 MG/ML VIAL 6 MG IVPUSH (07:31)
--- NOTE | 2021-03-20 08:35 | P.CDIC_ITS ---
CDI Concurrent Query Documentation Clarification: PHYSICIAN'S DOCUMENTATION REQUEST Date of Query: 03/20/21 0836 Patient Name: Deirdre Galeas Admit Date: 03/18/21 Dear Doctor, A review of the medical record indicates additional documentation may be needed. Please review below and update the documentation accordingly. Risk Factors/Clinical Indicators/Treatments Ed: 03/18 - COPD dependent on 2 liters supplemental oxygen. PN: Acute respiratory failure with hypoxia. LEO, Morbid obesity, Obesity hypoventilation syndrome. Pt requiring ventilatory support. If possible, please further clarify the type and acuity of respiratory failure: * Acute on chronic respiratory failure with hypoxia * Acute respiratory failure with hypoxia * Other * Unable to determine Use of terms such as suspected, likely, concern for, or probable (associated with a specific diagnosis that is being evaluated, monitored, or treated as if it exists) are acceptable and can be coded in the inpatient setting, when documented at the time of discharge. Thank you, Brandy Castro [facility], [facility]IS Extension:[phone] Please use your independent medical judgment in providing your response. THIS QUERY IS PART OF THE PERMANENT MEDICAL RECORD Provider Response: Other ( Acute on chronic hypoxic respiratory failure) Other Diagnosis: Acute on chronic hypoxic respiratory failure
[2021-03-20] MEDS: Potassium Chloride/H20 40 MEQ/100 ML PIGGYBACK 50 MEQ IV ×3 (09:17→13:12)
[2021-03-20 10:21] LABS: Troponin-I High Sensitivity 903.3 ng/L (<3.5-17.0)
[2021-03-20] MEDS: fentaNYL citrate/NS 1,000 MCG/100 ML PLAST..BAG 20 MCG IVCONT ×3 (10:57→20:45)
--- NOTE | 2021-03-20 12:53 | PM.CCPN ---
Subjective Subjective Date of Service: 03/20/21 Interval History: 60-year-old lady with underlying history of COPD on 2 L of supplemental oxygen, lung cancer on palliative XRT, polysubstance abuse now on methadone, seizure disorder, CKD, CHF admitted on 03/18/2021 with worsening alteration of mental status. On ER evaluation patient was noted to be COVID-19 positive, tachycardic and tachypneic, profoundly confused, then acutely developed hypoxia refractory to noninvasive supplemental oxygen support requiring intubation and ventilatory support. Patient was empirically covered with broad-spectrum antibiotic and transferred to intensive care unit. her troponin noted to be up trending she was started heparin drip. 2D echocardiogram demonstrated biventricular reduced systolic function. No events overnight. FiO2 requirements are improving. Critical Care Time (minutes): 45 Physical Exam Vital Signs: Vital Signs: Last Vital Signs Temp 98.6 F 03/20/21 11:59 Pulse 70 03/20/21 11:59 Resp 15 03/20/21 11:59 BP 107/69 03/20/21 11:59 Pulse Ox 96 03/20/21 11:59 BMI result Body Mass Index 33.9 Const: General: no acute distress and other ( Sedated on the vent, arousable with sedation vacation) Nutritional Appearance: obese Eyes: Sclerae: sclerae normal EOM: EOMs intact bilaterally Neck: Neck: Yes no lymphadenopathy, Yes trachea midline and Yes supple Resp: Auscultation: crackles ( bibasilar) Cardio: Rate: regular rate Rhythm: regular rhythm Heart sounds: no gallops, no murmurs and no rubs GI: Palpation (GI): Soft to palpation and Other GI palpation findings present ( Nontender) Auscultation: normal bowel sounds Extrem: General: No clubbing, No cyanosis and Yes pedal edema ( 1+ bilateral) Objective Data Labs CBC & Chem 7: 03/20/21 05:43 03/20/21 05:43 Labs: Laboratory Results - last 24 hr 03/19/21 03/19/21 03/20/21 16:20 21:43 04:13 WBC RBC Hgb Hct MCV MCH MCHC RDW Plt Count MPV Immature Gran % (Auto) Neut % (Auto) Lymph % (Auto) [place] % (Auto) Eos % (Auto) Baso % (Auto) Lymph # (Auto) [place] # (Auto) Eos # (Auto) Baso # (Auto) Abs Immat Gran (auto) Absolute Neuts (auto) Absolute Nucleated RBC Nucleated RBC % (auto) aPTT Heparin Protocol 55.0 54.7 55.3 VBG pH VBG pCO2 VBG pO2 VBG HCO3 VBG O2 Saturation VBG Base Excess Sodium Potassium Chloride Carbon Dioxide Anion Gap BUN Creatinine Estim Creat Clear Calc Estimated GFR Random Glucose Calcium Phosphorus Magnesium Total Bilirubin AST ALT Alkaline Phosphatase Troponin I High Sens Total Protein Albumin 03/20/21 03/20/21 03/20/21 05:30 05:43 05:43 WBC 14.0 H RBC 3.04 L Hgb 8.4 L Hct 26.2 L MCV 86.2 MCH 27.6 MCHC 32.1 RDW 13.0 Plt Count 271 MPV 10.0 Immature Gran % (Auto) 1.6 H Neut % (Auto) 88.8 H Lymph % (Auto) 2.9 L [place] % (Auto) 6.6 Eos % (Auto) 0.0 Baso % (Auto) 0.1 Lymph # (Auto) 0.4 L [place] # (Auto) 0.9 Eos # (Auto) 0.0 Baso # (Auto) 0.0 Abs Immat Gran (auto) 0.22 H Absolute Neuts (auto) 12.4 H Absolute Nucleated RBC 0.040 H Nucleated RBC % (auto) 0.3 H aPTT Heparin Protocol VBG pH 7.47 H VBG pCO2 32 VBG pO2 63 VBG HCO3 23 VBG O2 Saturation 90.0 VBG Base Excess 0.9 Sodium 146 H Potassium 2.6 L D Chloride 105 Carbon Dioxide 22 Anion Gap 21 H BUN 102 H Creatinine 2.21 H Estim Creat Clear Calc 30.1 Estimated GFR 23 Random Glucose 186 H Calcium 8.7 D Phosphorus 4.4 Magnesium 2.0 Total Bilirubin 0.3 AST 37 H D ALT 31 Alkaline Phosphatase 47 D Troponin I High Sens Total Protein 6.3 L Albumin 3.8 D 03/20/21 09:34 WBC RBC Hgb Hct MCV MCH MCHC RDW Plt Count MPV Immature Gran % (Auto) Neut % (Auto) Lymph % (Auto) [place] % (Auto) Eos % (Auto) Baso % (Auto) Lymph # (Auto) [place] # (Auto) Eos # (Auto) Baso # (Auto) Abs Immat Gran (auto) Absolute Neuts (auto) Absolute Nucleated RBC Nucleated RBC % (auto) aPTT Heparin Protocol VBG pH VBG pCO2 VBG pO2 VBG HCO3 VBG O2 Saturation VBG Base Excess Sodium Potassium Chloride Carbon Dioxide Anion Gap BUN Creatinine Estim Creat Clear Calc Estimated GFR Random Glucose Calcium Phosphorus Magnesium Total Bilirubin AST ALT Alkaline Phosphatase Troponin I High Sens 903.3 H* D Total Protein Albumin Microbiology Microbiology Results: Microbiology 03/18/21 19:37 Blood - Venous Blood Culture - Preliminary No growth after 24 hours. 03/18/21 19:37 Blood - Venous Blood Culture - Final Progress Note: A&P Assessment and plan (1) Acute on chronic systolic (congestive) heart failure: Status: Acute (2) Acute respiratory failure with hypoxia: Status: Acute (3) JOAN (acute kidney injury): Status: Acute (4) Aspiration into airway: Status: Acute (5) COPD (chronic obstructive pulmonary disease): Status: Acute (6) LEO (obstructive sleep apnea): Status: Acute (7) Lung cancer: Status: Acute Plan Assessment: 60-year-old lady with underlying morbid obesity, LEO, obesity hyperventilation COPD 2 L dependent, remote history of cardiac arrest, CKD stage IV admitted with alteration of mental status, uremia COVID-19, acute hypoxic respiratory failure now requiring ventilatory support. Plan: Neuro: acute metabolic encephalopathy likely secondary to uremia, expect to improve with improvement in uremia. Cardiac: NSTEMI versus PE versus demand ischemia. Cardiology service care appreciated. 2D echocardiogram With biventricular systolic congestive heart failure. Continues on heparin drip. Will start with diuresis. Pulmonary: Acute hypoxic respiratory failure on the background of COVID-19 now requiring ventilatory support. May have a component of PE. Empirically on heparin drip. Continue to titrate off ventilatory support as tolerated. FiO2 requirements improving. Renal: Acute renal failure on the background of chronic kidney disease, may be related to COVID-19. Now with worsening uremia. Nephrology consultation requested. Non oliguric. Continue to monitor renal indices and urine output. Endo: No acute issues. GI: No acute issues. ID: COVID-19 now and is significant hypoxemia, started on dexamethasone and renal adjusted baricitinib. Heme/Onc: No acute issues. Psych: No acute issues. Miscellaneous: No acute issues. Prophylaxis: Heparin drip, ppi Diet: Tube feeds Critical care time spent: 45 minutes Quality Stroke Does the patient have a stroke diagnosis?: No VTE Prior VTE?: No VTE Risk Level:: Medical - moderate - high VTE Device Contraindication: Treatment Not Indicated VTE Drug Contraindication: N/A - Med Ordered
[2021-03-20] MEDS: Furosemide 200 MG in 0.9 % Sodium Chloride 80 ML IVCONT (13:45)
--- NOTE | 2021-03-20 14:05 | PC.NURSE ---
ICU patient, intubated and sedated. Only tolerating vent while on Propofol at 50mcg/kg/min and Fentanyl at 200mg/hr Heparin drip continues. HighSens Troponin decreasing 903.3 today. ABTx of Zosyn as ordered. Scheduled meds as well. Repositioned per protocol, oral care per vent protocol. Lasix drip started to diurese patient. VSS. Vent settings AC 18, 350, FiO2 decreased to 40% from 50 with a PEEP of 5. SpO2 95% and better.
[2021-03-20 18:53] LABS: Vancomycin Trough 26.8 mcg/mL (10.0-20.0)
--- NOTE | 2021-03-20 19:23 | HE.PHANOTE ---
Vancomycin Dosing Addendum Vancomycin trough 26.8. Vancomycin random level ordered for 03/21/21 @0600, Vancomycin regimen changed to 500 mg q24h to start 03/21/21 @0800 ( depending on level/renal function). New vancomycin regimen on HOLD until we get back random level.
[2021-03-20 21:25] LABS: Anion Gap 18 (12-20); Blood Urea Nitrogen 95 mg/dL (9-16); Calcium 10.1 mg/dL (8.4-10.2); Carbon Dioxide 26 mmol/L (22-29); Chloride 109 mmol/L (96-108); Creatinine Clr Calc Pharmacy 29.5; Estimated Glomerular Filt Rate 22; Glucose Random 165 mg/dL (60-115); Potassium 3.7 mmol/L (3.3-5.1); Sodium 149 mmol/L (135-145)
--- NOTE | 2021-03-20 23:19 | PC.NURSE ---
Assumed care of pt at 1900. Monitor has shown afib, rate 120's-170 with occ PVC's noted. At 1930, rate up to 160's and twitching of face and foot noted. Anupam Mclain PRINTING MACHINE OPERATOR [employer] at bedside and ordered Ketamine 100 mg IVP which was given at 0. Heart rate came down to 80's briefly and then back up. Pt started to desat and dropped as low as 60's. Resp therapist in room and bagged pt to get sats up to 90's. Fio2 increased to 100% via vent. Levophed had be titrated up to 1 mcg/kg/min for BP down to 71/27. In preparation for impending code blue, defib pads placed on pt and Riky applied to chest. Pulses palpable. PRINTING MACHINE OPERATOR [employer] called family and updated them on pt's status. They want Full Code at this point. BP stabalized on .1mcg of Levophed. Heart rate continued with varible afib rate of 110's-160's. O2 sats held steady in the 90's but pt had a couple episode of O2 desatting to 70's but came back up with suctioning. At 2129, family called for update and spoke to Anupam YU. They wanted to come in and arrived at 2229. Family asked for a engineer automated equipment to give the sacrament of the sick. Ezequiel arrived at 2300 and gave the sacrament. Family facetimed other family members and came out of room at this time to express their wishes to make pt Comfort Measures only. PLan to d/c Levo, Lasix and to extubate pt. Resp therapy called.
[2021-03-21] VITALS (31 sets, daily range): BP systolic 95–159; BP diastolic 56–103; PULSE 46–133; RESP 13–34; TEMP 33.5–37.9; O2SAT 91–98; BMI 32.8
[2021-03-21] MEDS: propofoL 1,000 MG/100 ML VIAL 40.82 MG IVCONT ×3 (00:24→07:00)
[2021-03-21] MEDS: Piperacillin Sodium/Tazobactam 3.375 GM in 0.9 % Sodium Chloride 50 ML IV ×2 (00:47→06:07)
[2021-03-21] MEDS: fentaNYL citrate/NS 1,000 MCG/100 ML PLAST..BAG 20 MCG IVCONT ×2 (02:05→07:11)
[2021-03-21] MEDS: propofoL 1,000 MG/100 ML VIAL 32.66 MG IVCONT (04:54)
[2021-03-21] MEDS: Pantoprazole Sodium 40 MG/10 ML VIAL IVPUSH ×2 (05:35→06:07)
[2021-03-21] MEDS: Midazolam HCl/PF 2 MG/2 ML VIAL IVPUSH (05:35)
[2021-03-21] MEDS: Chlorhexidine Gluc Oral Rinse 15 ML MOUTHWASH BUCCAL ×2 (06:08→14:15)
[2021-03-21] MEDS: Furosemide 200 MG in 0.9 % Sodium Chloride 80 ML IVCONT (06:18)
[2021-03-21 06:19] LABS: VBG Base Excess 2.6 mmol/L; VBG HCO3 25 mmol/L (22-26); VBG pCO2 33 mmHg; VBG pH 7.49 (7.32-7.43); VBG pO2 46 mmHg
[2021-03-21 06:20] LABS: Hematocrit 30.2 % (37.0-47.0); Hemoglobin 9.7 g/dl (12.0-16.0); Mean Corpuscular HGB Conc 32.1 g/dl (31.0-35.0); Mean Corpuscular Hemoglobin 27.9 pg (27.0-33.0); Mean Corpuscular Volume 86.8 fL (80.0-98.0); Platelet Count 346 X10*3/uL (160-400); Red Blood Count 3.48 X10*6/uL (4.20-5.50); Red Cell Distribution Width 13.4 % (11.0-16.0); White Blood Count 19.1 X10*3/uL (4.8-10.8)
[2021-03-21 06:24] LABS: Venous Blood Gas Refer to POC result
[2021-03-21 06:30] LABS: PTT Heparin Drip 60.5 SEC (53-77.9)
[2021-03-21 06:40] LABS: Vancomycin Random 22.6 mcg/mL (15-20)
[2021-03-21 07:03] LABS: Band Neutrophils Percent 0 % (3-5); Lymphocytes Absolute Manual 0.6 X10*3/uL (1.2-4.9); Lymphocytes Percent Manual 3 % (20-40); Monocytes Absolute Manual 1.5 X10*3/uL (0.1-1.2); Monocytes Percent Manual 8 % (2-11); Neutrophils Percent Manual 89 % (45-73); Nucleated Red Blood Cells 2 /100WBC (0-0)
[2021-03-21 07:05] LABS: Anion Gap 22 (12-20); Blood Urea Nitrogen 102 mg/dL (9-16); Carbon Dioxide 24 mmol/L (22-29); Chloride 108 mmol/L (96-108); Creatinine Clr Calc Pharmacy 27.7; Estimated Glomerular Filt Rate 21; Glucose Random 138 mg/dL (60-115); Magnesium 1.7 mg/dL (1.6-2.6); Phosphorus 3.5 mg/dL (2.7-4.5); Potassium 3.7 mmol/L (3.3-5.1); Sodium 150 mmol/L (135-145)
[2021-03-21 07:06] LABS: Acanthocytes 1+ (0-2) /OIF; Macrocytosis 1+ (5-14) /OIF; Platelet Estimate NORMAL (NORMAL); Platelet Morphology Comment NOTED; Polychromasia 1+ (0-2) /OIF; RBC Morphology NOTED; Tear Drop Cells 1+ (0-2) /OIF
[2021-03-21] MEDS: Magnesium Sulfate/H2O 2 GM/50 ML PIGGYBACK IV ×2 (09:00→23:06)
[2021-03-21] MEDS: dexAMETHasone sod phosphate 4 MG/ML VIAL 6 MG IVPUSH (09:00)
[2021-03-21] MEDS: propofoL 1,000 MG/100 ML VIAL 13.04 MG IVCONT (09:36)
--- NOTE | 2021-03-21 10:01 | MHC.CLN ---
F/U PT REMAINS INTUBATED AND SEDATED TF STARTED AT 20ML/HR RECOMMEND GLUCERNA AT MAX GOAL RATE 50ML/HR WITH 240ML FREE WATER FLUSHES Q SHIFT TO PROVIDE 1200KCALS (1544KCALS WITH SEDATION; 24KCALS/KG), 50G PROTEIN, 1744CC TOTAL FREE WATER FROM FORMULA AND FLUSHES (26.8ML/KG) MONITOR TOLERANCE, RESIDUALS AND LYTES
--- NOTE | 2021-03-21 10:23 | HE.PHANOTE ---
RE: Weight Discrepancy Patient weight was recorded as 136.078kg on presentation to the ED. The weights were also recorded two more times as 136.078 kg for 03/18 and 03/19. The patient was subsequently started on a variety of weight based medications including a heparin drip, norepinephrine drip, propofol infusion, and vancomycin. The weight was questioned by pharmacy and verified as being correct on 03/19 for vancomycin monitoring. On 03/20, the weight was recorded as 89.7 kg and updated in the computer. Weight was then verified again with RN on 03/21 as being 86.9 kg. None of the weight based drugs were adjusted on 03/20 (when the weight was updated). Today I adjusted the heparin (drip and PRN IV boluses), propofol, and norepinephrine (which is paused). The weight discrepancy resulted in an elevated vancomycin trough of 26.8 secondary to incorrect weight based loading dose and incorrect CrCl (calculation made using weight). Thanks Eron Irizarry
--- NOTE | 2021-03-21 10:50 | PM.CCPN ---
Subjective Subjective Date of Service: 03/21/21 Interval History: 60-year-old lady with underlying history of COPD on 2 L of supplemental oxygen, lung cancer on palliative XRT, polysubstance abuse now on methadone, seizure disorder, CKD, CHF admitted on 03/18/2021 with worsening alteration of mental status. On ER evaluation patient was noted to be COVID-19 positive, tachycardic and tachypneic, profoundly confused, then acutely developed hypoxia refractory to noninvasive supplemental oxygen support requiring intubation and ventilatory support. Patient was empirically covered with broad-spectrum antibiotic and transferred to intensive care unit. her troponin noted to be up trending she was started heparin drip. 2D echocardiogram demonstrated biventricular reduced systolic function. No events overnight. FiO2 requirements are improving. Critical Care Time (minutes): 45 Physical Exam Vital Signs: Vital Signs: Last Vital Signs Temp 99.3 F 03/21/21 10:00 Pulse 75 03/21/21 10:00 Resp 18 03/21/21 10:00 BP 120/84 03/21/21 10:00 Pulse Ox 92 03/21/21 10:00 BMI result Body Mass Index 32.8 Const: General: no acute distress and other ( sedated on the vent, arousable with sedation vacation) Nutritional Appearance: obese Eyes: Sclerae: sclerae normal EOM: EOMs intact bilaterally Neck: Neck: Yes no lymphadenopathy, Yes trachea midline and Yes supple Resp: Auscultation: clear to auscultation bilaterally Cardio: Rate: regular rate Rhythm: regular rhythm Heart sounds: no gallops, no murmurs and no rubs GI: Palpation (GI): Soft to palpation and Other GI palpation findings present ( Nontender) Auscultation: normal bowel sounds Extrem: General: No clubbing, No cyanosis and Yes pedal edema ( trace bilateral) Objective Data Labs CBC & Chem 7: 03/21/21 06:12 03/21/21 06:12 Labs: Laboratory Results - last 24 hr 03/20/21 03/20/21 03/21/21 18:02 20:52 06:11 WBC RBC Hgb Hct MCV MCH MCHC RDW Plt Count MPV Immature Gran % (Auto) Neut % (Auto) Lymph % (Auto) [place] % (Auto) Eos % (Auto) Baso % (Auto) Lymph # (Auto) [place] # (Auto) Eos # (Auto) Baso # (Auto) Abs Immat Gran (auto) Absolute Neuts (auto) Absolute Nucleated RBC Nucleated RBC % (auto) Neutrophils % (Manual) Band Neutrophils % Lymphocytes % (Manual) Monocytes % (Manual) Abs Neuts (Manual) Lymphocytes # (Manual) Monocytes # (Manual) Nucleated RBCs Platelet Estimate Plt Morphology Comment RBC Morphology Polychromasia Macrocytosis Tear Drop Cells Acanthocytes (Spur) Smear Path Review aPTT Heparin Protocol VBG pH 7.49 H VBG pCO2 33 VBG pO2 46 VBG HCO3 25 VBG O2 Saturation 77.0 VBG Base Excess 2.6 Sodium 149 H Potassium 3.7 D Chloride 109 H Carbon Dioxide 26 Anion Gap 18 BUN 95 H Creatinine 2.25 H Estim Creat Clear Calc 29.5 Estimated GFR 22 Random Glucose 165 H Calcium 10.1 D Phosphorus Magnesium Albumin Vancomycin Trough 26.8 H* Random Vancomycin 03/21/21 03/21/21 03/21/21 06:12 06:12 06:12 WBC 19.1 H RBC 3.48 L Hgb 9.7 L Hct 30.2 L MCV 86.8 MCH 27.9 MCHC 32.1 RDW 13.4 Plt Count 346 D MPV 10.0 Immature Gran % (Auto) Cancelled Neut % (Auto) Cancelled Lymph % (Auto) Cancelled [place] % (Auto) Cancelled Eos % (Auto) Cancelled Baso % (Auto) Cancelled Lymph # (Auto) Cancelled [place] # (Auto) Cancelled Eos # (Auto) Cancelled Baso # (Auto) Cancelled Abs Immat Gran (auto) Cancelled Absolute Neuts (auto) Cancelled Absolute Nucleated RBC 0.390 H Nucleated RBC % (auto) 2.0 H Neutrophils % (Manual) 89 H Band Neutrophils % 0 L Lymphocytes % (Manual) 3 L Monocytes % (Manual) 8 Abs Neuts (Manual) 17.0 H Lymphocytes # (Manual) 0.6 L Monocytes # (Manual) 1.5 H Nucleated RBCs 2 H Platelet Estimate NORMAL Plt Morphology Comment NOTED RBC Morphology NOTED Polychromasia 1+ (0-2) Macrocytosis 1+ (5-14) Tear Drop Cells 1+ (0-2) Acanthocytes (Spur) 1+ (0-2) Smear Path Review SEE NOTE aPTT Heparin Protocol 60.5 VBG pH VBG pCO2 VBG pO2 VBG HCO3 VBG O2 Saturation VBG Base Excess Sodium 150 H Potassium 3.7 Chloride 108 Carbon Dioxide 24 Anion Gap 22 H BUN 102 H Creatinine 2.36 H Estim Creat Clear Calc 27.7 Estimated GFR 21 Random Glucose 138 H Calcium 10.0 Phosphorus 3.5 Magnesium 1.7 Albumin 4.0 Vancomycin Trough Random Vancomycin 03/21/21 06:12 WBC RBC Hgb Hct MCV MCH MCHC RDW Plt Count MPV Immature Gran % (Auto) Neut % (Auto) Lymph % (Auto) [place] % (Auto) Eos % (Auto) Baso % (Auto) Lymph # (Auto) [place] # (Auto) Eos # (Auto) Baso # (Auto) Abs Immat Gran (auto) Absolute Neuts (auto) Absolute Nucleated RBC Nucleated RBC % (auto) Neutrophils % (Manual) Band Neutrophils % Lymphocytes % (Manual) Monocytes % (Manual) Abs Neuts (Manual) Lymphocytes # (Manual) Monocytes # (Manual) Nucleated RBCs Platelet Estimate Plt Morphology Comment RBC Morphology Polychromasia Macrocytosis Tear Drop Cells Acanthocytes (Spur) Smear Path Review aPTT Heparin Protocol VBG pH VBG pCO2 VBG pO2 VBG HCO3 VBG O2 Saturation VBG Base Excess Sodium Potassium Chloride Carbon Dioxide Anion Gap BUN Creatinine Estim Creat Clear Calc Estimated GFR Random Glucose Calcium Phosphorus Magnesium Albumin Vancomycin Trough Random Vancomycin 22.6 H Microbiology Microbiology Results: Microbiology 03/18/21 19:37 Blood - Venous Blood Culture - Preliminary No growth after 48 hours. 03/18/21 19:37 Blood - Venous Blood Culture - Final Progress Note: A&P Assessment and plan (1) Acute on chronic systolic (congestive) heart failure: Status: Acute (2) Acute respiratory failure with hypoxia: Status: Acute (3) JOAN (acute kidney injury): Status: Acute (4) Aspiration into airway: Status: Acute (5) COVID-19: Status: Acute (6) CKD (chronic kidney disease) stage 4, GFR 15-29 ml/min: Status: Acute (7) LEO (obstructive sleep apnea): Status: Acute (8) COPD (chronic obstructive pulmonary disease): Status: Acute (9) Lung cancer: Status: Acute Plan Assessment: 60-year-old lady with underlying morbid obesity, LEO, obesity hyperventilation COPD 2 L dependent, remote history of cardiac arrest, CKD stage IV admitted with alteration of mental status, uremia COVID-19, acute hypoxic respiratory failure now requiring ventilatory support. Plan: Neuro: Acute metabolic encephalopathy likely secondary to uremia, expect to improve with improvement in uremia. Cardiac: NSTEMI versus PE versus demand ischemia. Cardiology service care appreciated. 2D echocardiogram With biventricular systolic congestive heart failure. Continues on heparin drip. Continue with diuresis. Pulmonary: Acute hypoxic respiratory failure on the background of COVID-19 now requiring ventilatory support. May have a component of PE. Empirically on heparin drip. Continue to titrate off ventilatory support as tolerated. FiO2 requirements improving. Renal: Acute renal failure on the background of chronic kidney disease, may be related to COVID-19. Now with worsening uremia. Nephrology consultation requested. Non oliguric. Continue to monitor renal indices and urine output. Endo: No acute issues. GI: No acute issues. ID: COVID-19 with hypoxemia, continues on dexamethasone and renal adjusted baricitinib. Heme/Onc: No acute issues. Psych: No acute issues. Miscellaneous: No acute issues. Prophylaxis: Heparin drip, ppi Diet: Tube feeds Critical care time spent: 45 minutes Quality Stroke Does the patient have a stroke diagnosis?: No VTE Prior VTE?: No VTE Risk Level:: Medical - moderate - high VTE Device Contraindication: Treatment Not Indicated VTE Drug Contraindication: N/A - Med Ordered
[2021-03-21] MEDS: Heparin Sodium,Porcine/1/2NS 25,000 UNIT/250 ML IV.SOLN 7.66 UNIT IVCONT ×2 (11:39→20:00)
--- NOTE | 2021-03-21 12:09 | MHC.CM.PN ---
Patient remains intubated/vented in ICU. Patient is from home with [employer] ENGINE[employer], [employer] oxygen and [place] for methadone. Continue to monitor for d/c needs.
[2021-03-21 15:49] LABS: ABG Base Excess 6.5 mmol/L; ABG HCO3 28 mmol/L (22-26); ABG pCO2 31 mmHg (32-45); ABG pH 7.56 (7.35-7.45); ABG pO2 76 mmHg (83-108)
[2021-03-21] MEDS: fentaNYL citrate/NS 1,000 MCG/100 ML PLAST..BAG 10 MCG IVCONT (16:46)
[2021-03-21 19:32] LABS: ABG Refer to POC result
[2021-03-21] MEDS: LORazepam 2 MG/ML VIAL 1 MG IVPUSH (19:59)
[2021-03-21] MEDS: fentaNYL citrate/NS 1,000 MCG/100 ML PLAST..BAG 15 MCG IVCONT (22:34)
[2021-03-21 22:41] LABS: Anion Gap 29 (12-20); Blood Urea Nitrogen 107 mg/dL (9-16); Calcium 11.6 mg/dL (8.4-10.2); Carbon Dioxide 22 mmol/L (22-29); Chloride 107 mmol/L (96-108); Creatinine Clr Calc Pharmacy 26.4; Estimated Glomerular Filt Rate 20; Glucose Random 117 mg/dL (60-115); Magnesium 1.9 mg/dL (1.6-2.6); Potassium 4.1 mmol/L (3.3-5.1); Sodium 154 mmol/L (135-145)
[2021-03-22] VITALS (27 sets, daily range): BP systolic 113–146; BP diastolic 73–100; PULSE 103–139; RESP 15–41; TEMP 35.9–38.8; O2SAT 91–98; BMI 30.2
--- NOTE | 2021-03-22 03:22 | PC.NURSE ---
Addendum entered by Blu Karimi RN 03/22/21 06:33: 0615 entered room to change and clean patient. Noticed patient has slight mottling on stomach and breasts, Provider notified, VSS, maintaining airway Original Note: Initial contact pt is very restless and moaning. Pt does not respond to questions or follow commands. Pupils are perrl, pt is resistive to care. Pt screams when touched, very restless, pt bites yankaur when mouth is suctioned. Pt was on high flow but not long after initial contact patient took off highflow and satted in the low 90s on room air. Pt was then placed on 2L NC with good response and satting in the mid to high 90s. Ls dim, pt does have wet cough mouth suctioned after with minimal amount of thick secretions. Pt has been tachy in the 100-130s throughout the night. Pt has had frequent atrial ectopy with occasional PVCs. Pt did have a 13 beat run of vtach at aproximately 0315. Pt does have +1-2 lower ext edema. Pt has had multiple loose, dark stools through the night. Abd soft non-tender. Pt has a cota with good output roughly 100-250/hr. Pt has no pressure ulcers but skin in lower ext is dry and red. Pt is generally weak.
[2021-03-22] MEDS: fentaNYL citrate/NS 1,000 MCG/100 ML PLAST..BAG 15 MCG IVCONT (04:24)
[2021-03-22 05:53] LABS: VBG Base Excess 4.8 mmol/L; VBG HCO3 25 mmol/L (22-26); VBG pCO2 28 mmHg; VBG pH 7.56 (7.32-7.43); VBG pO2 62 mmHg
[2021-03-22 06:08] LABS: Hematocrit 42.9 % (37.0-47.0); Hemoglobin 13.8 g/dl (12.0-16.0); Mean Corpuscular HGB Conc 32.2 g/dl (31.0-35.0); Mean Corpuscular Hemoglobin 27.2 pg (27.0-33.0); Mean Corpuscular Volume 84.6 fL (80.0-98.0); Mean Platelet Volume 9.8 fL (9.4-12.3); Platelet Count 498 X10*3/uL (160-400); Red Blood Count 5.07 X10*6/uL (4.20-5.50); Red Cell Distribution Width 13.7 % (11.0-16.0); White Blood Count 27.1 X10*3/uL (4.8-10.8)
[2021-03-22 06:12] LABS: NRBC Pct Auto 5.3 /100WBC (0.0-0.2)
[2021-03-22 06:23] LABS: Albumin Level 5.1 g/dL (3.5-5.0); Anion Gap 29 (12-20); Blood Urea Nitrogen 116 mg/dL (9-16); Carbon Dioxide 26 mmol/L (22-29); Chloride 103 mmol/L (96-108); Estimated Glomerular Filt Rate 19; Glucose Random 143 mg/dL (60-115); Magnesium 2.8 mg/dL (1.6-2.6); Phosphorus 4.1 mg/dL (2.7-4.5); Potassium 3.5 mmol/L (3.3-5.1); Sodium 154 mmol/L (135-145)
[2021-03-22 06:28] LABS: Venous Blood Gas Refer to POC result
[2021-03-22] MEDS: dexAMETHasone sod phosphate 4 MG/ML VIAL 6 MG IVPUSH (07:34)
[2021-03-22] MEDS: Heparin Sodium,Porcine 5,000 UNIT/ML VIAL 3500 UNIT IVPUSH (07:34)
[2021-03-22 07:38] LABS: Band Neutrophils Percent 2 % (3-5); Eosinophils Absolute Manual 0.3 X10*3/uL (0.0-0.4); Eosinophils Percent Manual 1 % (0-4); Lymphocytes Absolute Manual 3.3 X10*3/uL (1.2-4.9); Lymphocytes Percent Manual 12 % (20-40); Metamyelocytes Absolute 0.3 X10*3/uL; Metamyelocytes Percent 1 %; Monocytes Absolute Manual 1.4 X10*3/uL (0.1-1.2); Monocytes Percent Manual 5 % (2-11); Neutrophils Percent Manual 79 % (45-73); Nucleated Red Blood Cells 6 /100WBC (0-0)
[2021-03-22 07:39] LABS: RBC Morphology NOTED
[2021-03-22 07:40] LABS: Macrocytosis 1+ (5-14) /OIF
[2021-03-22 07:41] LABS: Platelet Estimate INCREASED (NORMAL); Platelet Morphology Comment NORMAL
[2021-03-22] MEDS: dilTIAZem HCL 50 MG/10 ML VIAL 10 MG IVPUSH (08:35)
[2021-03-22] MEDS: dilTIAZem HCL 125 MG in 0.9 % Sodium Chloride 100 ML 10 MG IVCONT (08:39)
--- NOTE | 2021-03-22 10:51 | PM.CCPN ---
Subjective Subjective Date of Service: 03/22/21 Interval History: 60-year-old lady with underlying history of COPD on 2 L of supplemental oxygen, lung cancer on palliative XRT, polysubstance abuse now on methadone, seizure disorder, CKD, CHF admitted on 03/18/2021 with worsening alteration of mental status. On ER evaluation patient was noted to be COVID-19 positive, tachycardic and tachypneic, profoundly confused, then acutely developed hypoxia refractory to noninvasive supplemental oxygen support requiring intubation and ventilatory support. Patient was empirically covered with broad-spectrum antibiotic and transferred to intensive care unit. her troponin noted to be up trending she was started heparin drip. 2D echocardiogram demonstrated biventricular reduced systolic function. She was extubated on 03/21/2021. Overnight with rounds off SVT, restarted on Cardizem. Critical Care Time (minutes): 45 Physical Exam Vital Signs: Vital Signs: Last Vital Signs Temp 99.3 F 03/22/21 10:00 Pulse 117 H 03/22/21 10:00 Resp 22 H 03/22/21 10:00 BP 143/78 H 03/22/21 10:00 Pulse Ox 95 03/22/21 10:00 BMI result Body Mass Index 30.2 Const: General: no acute distress and lethargic (Arousable) Nutritional Appearance: obese Orientation/consciousness: lethargic (Arousable) Eyes: Sclerae: sclerae normal EOM: EOMs intact bilaterally Neck: Neck: Yes no lymphadenopathy, Yes trachea midline and Yes supple Resp: Effort & Inspection: normal respiratory effort and no respiratory distress Auscultation: clear to auscultation bilaterally Cardio: Rate: tachycardic Rhythm: regular rhythm Heart sounds: no gallops, no murmurs and no rubs GI: Palpation (GI): Soft to palpation and Other GI palpation findings present ( Nontender) Auscultation: normal bowel sounds Extrem: General: No clubbing, No cyanosis and Yes edema (Trace bilateral) Objective Data Labs CBC & Chem 7: 03/22/21 05:40 03/22/21 05:40 Labs: Laboratory Results - last 24 hr 03/21/21 03/21/21 03/22/21 15:42 22:01 05:40 WBC RBC Hgb Hct MCV MCH MCHC RDW Plt Count MPV Immature Gran % (Auto) Neut % (Auto) Lymph % (Auto) Brantley % (Auto) Eos % (Auto) Baso % (Auto) Lymph # (Auto) Brantley # (Auto) Eos # (Auto) Baso # (Auto) Abs Immat Gran (auto) Absolute Neuts (auto) Absolute Nucleated RBC Nucleated RBC % (auto) Neutrophils % (Manual) Band Neutrophils % Lymphocytes % (Manual) Monocytes % (Manual) Eosinophils % (Manual) Metamyelocytes % Abs Neuts (Manual) Lymphocytes # (Manual) Monocytes # (Manual) Eosinophils # (Manual) Metamyelocytes # Nucleated RBCs Platelet Estimate Plt Morphology Comment RBC Morphology Macrocytosis aPTT Heparin Protocol 40.0 L D O2 Saturation 94.0 ABG pH at Pt Temp 7.56 H ABG pCO2 at Pt Temp 31 L ABG pO2 at Pt Temp 76 L ABG HCO3 28 H ABG Base Excess (Actual) 6.5 VBG pH VBG pCO2 VBG pO2 VBG HCO3 VBG O2 Saturation VBG Base Excess Sodium 154 H Potassium 4.1 Chloride 107 Carbon Dioxide 22 Anion Gap 29 H BUN 107 H Creatinine 2.48 H Estim Creat Clear Calc 26.4 Estimated GFR 20 Random Glucose 117 H Calcium 11.6 H D Phosphorus Magnesium 1.9 Albumin 03/22/21 03/22/21 03/22/21 05:40 05:40 05:46 WBC 27.1 H RBC 5.07 D Hgb 13.8 D Hct 42.9 D MCV 84.6 MCH 27.2 MCHC 32.2 RDW 13.7 Plt Count 498 H D MPV 9.8 Immature Gran % (Auto) Cancelled Neut % (Auto) Cancelled Lymph % (Auto) Cancelled Brantley % (Auto) Cancelled Eos % (Auto) Cancelled Baso % (Auto) Cancelled Lymph # (Auto) Cancelled Brantley # (Auto) Cancelled Eos # (Auto) Cancelled Baso # (Auto) Cancelled Abs Immat Gran (auto) Cancelled Absolute Neuts (auto) Cancelled Absolute Nucleated RBC 1.440 H Nucleated RBC % (auto) 5.3 H Neutrophils % (Manual) 79 H Band Neutrophils % 2 L Lymphocytes % (Manual) 12 L Monocytes % (Manual) 5 Eosinophils % (Manual) 1 Metamyelocytes % 1 Abs Neuts (Manual) 22.0 H Lymphocytes # (Manual) 3.3 Monocytes # (Manual) 1.4 H Eosinophils # (Manual) 0.3 Metamyelocytes # 0.3 Nucleated RBCs 6 H Platelet Estimate INCREASED Plt Morphology Comment NORMAL RBC Morphology NOTED Macrocytosis 1+ (5-14) aPTT Heparin Protocol O2 Saturation ABG pH at Pt Temp ABG pCO2 at Pt Temp ABG pO2 at Pt Temp ABG HCO3 ABG Base Excess (Actual) VBG pH 7.56 H VBG pCO2 28 VBG pO2 62 VBG HCO3 25 VBG O2 Saturation 89.0 VBG Base Excess 4.8 Sodium 154 H Potassium 3.5 Chloride 103 Carbon Dioxide 26 Anion Gap 29 H BUN 116 H Creatinine 2.64 H Estim Creat Clear Calc 20.0 Estimated GFR 19 Random Glucose 143 H Calcium 12.0 H Phosphorus 4.1 Magnesium 2.8 H Albumin 5.1 H D Microbiology Microbiology Results: Microbiology 03/18/21 19:37 Blood - Venous Blood Culture - Preliminary No growth after 48 hours. 03/18/21 19:37 Blood - Venous Blood Culture - Final Progress Note: A&P Assessment and plan (1) Acute on chronic systolic (congestive) heart failure: Status: Acute (2) Acute respiratory failure with hypoxia: Status: Acute (3) JOAN (acute kidney injury): Status: Acute (4) Aspiration into airway: Status: Acute (5) Lung cancer: Status: Acute (6) LEO (obstructive sleep apnea): Status: Acute (7) COPD (chronic obstructive pulmonary disease): Status: Acute (8) CKD (chronic kidney disease) stage 4, GFR 15-29 ml/min: Status: Acute (9) COVID-19: Status: Acute Plan Assessment: 60-year-old lady with underlying morbid obesity, LEO, obesity hyperventilation COPD 2 L dependent, remote history of cardiac arrest, CKD stage IV admitted with alteration of mental status, uremia COVID-19, acute hypoxic respiratory failure now requiring ventilatory support. Plan: Neuro: Acute metabolic encephalopathy likely secondary to uremia, expect to improve with improvement in uremia. Cardiac: NSTEMI versus PE versus demand ischemia. Cardiology service care appreciated. 2D echocardiogram With biventricular systolic congestive heart failure. Continues on heparin drip. Continue with diuresis. Pulmonary: Acute hypoxic respiratory failure on the background of COVID-19 initially requiring ventilatory support. Extubated 03/21/2021. May have a component of PE. Empirically on heparin drip. Now essentially on room air. Renal: Acute renal failure on the background of chronic kidney disease, may be related to COVID-19. Now with worsening uremia. Nephrology consultation requested. Non oliguric. Continue to monitor renal indices and urine output. Endo: No acute issues. GI: No acute issues. ID: COVID-19 with resolved hypoxemia. Stopped dexamethasone/baricitinib. Heme/Onc: No acute issues. Psych: No acute issues. Miscellaneous: No acute issues. Prophylaxis: Heparin drip, ppi Diet: Pending swallow evaluation Critical care time spent: 45 minutes Quality Stroke Does the patient have a stroke diagnosis?: No VTE Prior VTE?: No VTE Risk Level:: Medical - moderate - high VTE Device Contraindication: Treatment Not Indicated VTE Drug Contraindication: N/A - Med Ordered
--- NOTE | 2021-03-22 14:23 | HE.PHANOTE ---
Spoke to La Johnson, to verify pts methadone dose -73 mg, called [facility] to confirm last dose, they did not call back, pt admitted 4 days ago, would assume that she has received it recently since they visit daily.
[2021-03-22 14:51] LABS: PTT Heparin Drip 57.5 SEC (53-77.9)
[2021-03-22] MEDS: dilTIAZem HCL 125 MG in 0.9 % Sodium Chloride 100 ML 15 MG IVCONT ×2 (15:46→22:44)
[2021-03-22] MEDS: LORazepam 2 MG/ML VIAL 0.5 MG IVPUSH (19:25)
[2021-03-22 20:20] LABS: PTT Heparin Drip 53.7 SEC (53-77.9)
[2021-03-22] MEDS: fentaNYL citrate/NS 1,000 MCG/100 ML PLAST..BAG 5 MCG IVCONT (22:44)
[2021-03-22] MEDS: Ampicillin Sodium/Sulbactam Na 3 GM in 0.9 % Sodium Chloride 100 ML IV (22:52)
[2021-03-22] MEDS: Acetaminophen Supp 650 MG SUPP.RECT PR (22:53)
[2021-03-23] VITALS (41 sets, daily range): BP systolic 78–131; BP diastolic 32–90; PULSE 99–137; RESP 16–51; TEMP 32–39.3; O2SAT 90–96; BMI 30.2
[2021-03-23] MEDS: Heparin Sodium,Porcine/1/2NS 25,000 UNIT/250 ML IV.SOLN 9.4 UNIT IVCONT (00:01)
[2021-03-23 05:45] LABS: VBG Base Excess 0.1 mmol/L; VBG HCO3 20 mmol/L (22-26); VBG pCO2 23 mmHg; VBG pH 7.55 (7.32-7.43); VBG pO2 54 mmHg
[2021-03-23 06:03] LABS: Glucose, Whole Blood 199 mg/dL (60-115)
[2021-03-23 06:05] LABS: Hematocrit 45.2 % (37.0-47.0); Hemoglobin 14.2 g/dl (12.0-16.0); Mean Corpuscular HGB Conc 31.4 g/dl (31.0-35.0); Mean Corpuscular Hemoglobin 27.6 pg (27.0-33.0); Mean Corpuscular Volume 87.8 fL (80.0-98.0); Mean Platelet Volume 10.1 fL (9.4-12.3); Platelet Count 480 X10*3/uL (160-400); Red Blood Count 5.15 X10*6/uL (4.20-5.50); Red Cell Distribution Width 15.4 % (11.0-16.0); White Blood Count 26.6 X10*3/uL (4.8-10.8)
[2021-03-23 06:06] LABS: NRBC Pct Auto 7.7 /100WBC (0.0-0.2)
[2021-03-23 06:13] LABS: Venous Blood Gas Refer to POC result
--- NOTE | 2021-03-23 06:38 | PC.NURSE ---
Patient's temp elevated at 102. Tylenol NH ordered/administered with good effect. Ampicillin ordered/administered. Urine output averaging 30 ml/hr. Provider notified. Will continue to monitor.
[2021-03-23 06:57] LABS: PTT Heparin Drip 58.3 SEC (53-77.9)
[2021-03-23 07:02] LABS: Band Neutrophils Percent 5 % (3-5); Lymphocytes Absolute Manual 1.1 X10*3/uL (1.2-4.9); Lymphocytes Percent Manual 4 % (20-40); Metamyelocytes Absolute 0.3 X10*3/uL; Metamyelocytes Percent 1 %; Monocytes Absolute Manual 1.6 X10*3/uL (0.1-1.2); Monocytes Percent Manual 6 % (2-11); Neutrophils Absolute Manual 23.7 X10*3/uL (2.0-8.3); Neutrophils Percent Manual 84 % (45-73); Nucleated Red Blood Cells 8 /100WBC (0-0)
[2021-03-23] MEDS: Acetaminophen Supp 650 MG SUPP.RECT PR ×2 (07:05→19:38)
[2021-03-23] MEDS: dilTIAZem HCL 125 MG in 0.9 % Sodium Chloride 100 ML 15 MG IVCONT ×2 (07:05→23:55)
[2021-03-23 07:06] LABS: Macrocytosis 1+ (5-14) /OIF; Platelet Estimate SLIGHTLY INCREASED (NORMAL); Platelet Morphology Comment NORMAL; Polychromasia 1+ (0-2) /OIF; RBC Morphology NOTED
[2021-03-23] MEDS: Dextrose 5 % 1,000 ML 50 ML IVCONT (09:16)
[2021-03-23 09:40] LABS: Alanine Aminotransferase 37 U/L (0-31); Albumin Level 4.7 g/dL (3.5-5.0); Alkaline Phosphatase 72 U/L (39-117); Anion Gap 34 (12-20); Aspartate Amino Transferase 31 U/L (5-31); Bilirubin Total 1.2 mg/dL (0.0-1.0); Calcium 10.9 mg/dL (8.4-10.2); Carbon Dioxide 20 mmol/L (22-29); Chloride 109 mmol/L (96-108); Creatinine Clr Calc Pharmacy 12.9; Estimated Glomerular Filt Rate 9; Glucose Random 184 mg/dL (60-115); Magnesium 2.8 mg/dL (1.6-2.6); Phosphorus 5.1 mg/dL (2.7-4.5); Potassium 4.2 mmol/L (3.3-5.1); Sodium 159 mmol/L (135-145); Total Protein 8.3 g/dL (6.5-8.0)
[2021-03-23 09:51] LABS: Blood Urea Nitrogen 153 mg/dL (9-16)
--- NOTE | 2021-03-23 12:01 | PM.CCPN ---
Subjective Subjective Date of Service: 03/23/21 Interval History: ICU day 5 for metabolic encephalopathy, uremia, acute hypoxic respiratory failure, pulmonary aspiration, likely PE, biventricular systolic congestive heart failure 60-year-old lady with underlying history of COPD on 2 L of supplemental oxygen, lung cancer on palliative XRT, polysubstance abuse now on methadone, seizure disorder, CKD, CHF admitted on 03/18/2021 with worsening alteration of mental status. On ER evaluation patient was noted to be COVID-19 positive, tachycardic and tachypneic, profoundly confused, then acutely developed hypoxia refractory to noninvasive supplemental oxygen support requiring intubation and ventilatory support. Patient was empirically covered with broad-spectrum antibiotic and transferred to intensive care unit. her troponin noted to be up trending she was started heparin drip. 2D echocardiogram demonstrated biventricular reduced systolic function. She was extubated on 03/21/2021. she remains significantly encephalopathic, likely secondary to underlying uremia. No events overnight. Critical Care Time (minutes): 45 Physical Exam Vital Signs: Vital Signs: Last Vital Signs Temp 102.0 F H 03/23/21 11:00 Pulse 122 H 03/23/21 11:00 Resp 37 H 03/23/21 11:00 BP 98/74 03/23/21 11:00 Pulse Ox 93 03/23/21 11:00 BMI result Body Mass Index 30.2 Const: General: no acute distress and patient obtunded Orientation/consciousness: patient obtunded Eyes: Sclerae: sclerae normal EOM: EOMs intact bilaterally Neck: Neck: Yes no lymphadenopathy, Yes trachea midline and Yes supple Resp: Effort & Inspection: normal respiratory effort and tachypneic Auscultation: clear to auscultation bilaterally Cardio: Rate: tachycardic Rhythm: regular rhythm Heart sounds: no gallops, no murmurs and no rubs GI: Palpation (GI): Soft to palpation and Other GI palpation findings present ( Nontender) Auscultation: normal bowel sounds Neuro: General: patient obtunded Extrem: General: Yes no pedal edema, No clubbing and No cyanosis Objective Data Labs CBC & Chem 7: 03/23/21 05:54 03/23/21 07:41 Labs: Laboratory Results - last 24 hr 03/22/21 03/22/21 03/23/21 14:15 19:33 05:37 WBC RBC Hgb Hct MCV MCH MCHC RDW Plt Count MPV Immature Gran % (Auto) Neut % (Auto) Lymph % (Auto) [place] % (Auto) Eos % (Auto) Baso % (Auto) Lymph # (Auto) [place] # (Auto) Eos # (Auto) Baso # (Auto) Abs Immat Gran (auto) Absolute Neuts (auto) Absolute Nucleated RBC Nucleated RBC % (auto) Neutrophils % (Manual) Band Neutrophils % Lymphocytes % (Manual) Monocytes % (Manual) Metamyelocytes % Abs Neuts (Manual) Lymphocytes # (Manual) Monocytes # (Manual) Metamyelocytes # Nucleated RBCs Platelet Estimate Plt Morphology Comment RBC Morphology Polychromasia Macrocytosis aPTT Heparin Protocol 57.5 D 53.7 VBG pH 7.55 H VBG pCO2 23 VBG pO2 54 VBG HCO3 20 L VBG O2 Saturation 83.0 VBG Base Excess 0.1 Sodium Potassium Chloride Carbon Dioxide Anion Gap BUN Creatinine Estim Creat Clear Calc Estimated GFR POC Glucose Random Glucose Calcium Phosphorus Magnesium Total Bilirubin AST ALT Alkaline Phosphatase Total Protein Albumin 03/23/21 03/23/21 03/23/21 05:54 05:58 06:38 WBC 26.6 H RBC 5.15 Hgb 14.2 Hct 45.2 MCV 87.8 MCH 27.6 MCHC 31.4 RDW 15.4 Plt Count 480 H MPV 10.1 Immature Gran % (Auto) Cancelled Neut % (Auto) Cancelled Lymph % (Auto) Cancelled [place] % (Auto) Cancelled Eos % (Auto) Cancelled Baso % (Auto) Cancelled Lymph # (Auto) Cancelled [place] # (Auto) Cancelled Eos # (Auto) Cancelled Baso # (Auto) Cancelled Abs Immat Gran (auto) Cancelled Absolute Neuts (auto) Cancelled Absolute Nucleated RBC 2.050 H Nucleated RBC % (auto) 7.7 H Neutrophils % (Manual) 84 H Band Neutrophils % 5 Lymphocytes % (Manual) 4 L Monocytes % (Manual) 6 Metamyelocytes % 1 Abs Neuts (Manual) 23.7 H Lymphocytes # (Manual) 1.1 L Monocytes # (Manual) 1.6 H Metamyelocytes # 0.3 Nucleated RBCs 8 H Platelet Estimate SLIGHTLY INCREASED Plt Morphology Comment NORMAL RBC Morphology NOTED Polychromasia 1+ (0-2) Macrocytosis 1+ (5-14) aPTT Heparin Protocol 58.3 VBG pH VBG pCO2 VBG pO2 VBG HCO3 VBG O2 Saturation VBG Base Excess Sodium Potassium Chloride Carbon Dioxide Anion Gap BUN Creatinine Estim Creat Clear Calc Estimated GFR POC Glucose 199 H Random Glucose Calcium Phosphorus Magnesium Total Bilirubin AST ALT Alkaline Phosphatase Total Protein Albumin 03/23/21 07:41 WBC RBC Hgb Hct MCV MCH MCHC RDW Plt Count MPV Immature Gran % (Auto) Neut % (Auto) Lymph % (Auto) [place] % (Auto) Eos % (Auto) Baso % (Auto) Lymph # (Auto) [place] # (Auto) Eos # (Auto) Baso # (Auto) Abs Immat Gran (auto) Absolute Neuts (auto) Absolute Nucleated RBC Nucleated RBC % (auto) Neutrophils % (Manual) Band Neutrophils % Lymphocytes % (Manual) Monocytes % (Manual) Metamyelocytes % Abs Neuts (Manual) Lymphocytes # (Manual) Monocytes # (Manual) Metamyelocytes # Nucleated RBCs Platelet Estimate Plt Morphology Comment RBC Morphology Polychromasia Macrocytosis aPTT Heparin Protocol VBG pH VBG pCO2 VBG pO2 VBG HCO3 VBG O2 Saturation VBG Base Excess Sodium 159 H Potassium 4.2 Chloride 109 H Carbon Dioxide 20 L Anion Gap 34 H BUN 153 H D Creatinine 4.83 H* Estim Creat Clear Calc 12.9 Estimated GFR 9 POC Glucose Random Glucose 184 H Calcium 10.9 H D Phosphorus 5.1 H Magnesium 2.8 H Total Bilirubin 1.2 H AST 31 ALT 37 H Alkaline Phosphatase 72 D Total Protein 8.3 H D Albumin 4.7 Microbiology Microbiology Results: Microbiology 03/18/21 19:37 Blood - Venous Blood Culture - Preliminary No growth after 48 hours. 03/18/21 19:37 Blood - Venous Blood Culture - Final Progress Note: A&P Assessment and plan (1) Acute on chronic systolic (congestive) heart failure: Status: Acute (2) Acute respiratory failure with hypoxia: Status: Acute (3) JOAN (acute kidney injury): Status: Acute (4) Aspiration into airway: Status: Acute (5) Metabolic encephalopathy: Status: Acute (6) CKD (chronic kidney disease) stage 4, GFR 15-29 ml/min: Status: Acute (7) COVID-19: Status: Acute (8) COPD (chronic obstructive pulmonary disease): Status: Acute (9) LEO (obstructive sleep apnea): Status: Acute (10) Lung cancer: Status: Acute (11) Uremia: Status: Acute Plan Assessment: 60-year-old lady with underlying morbid obesity, LEO, obesity hyperventilation COPD 2 L dependent, remote history of cardiac arrest, CKD stage IV admitted with alteration of mental status, uremia COVID-19, acute hypoxic respiratory failure now requiring ventilatory support. Plan: Neuro: Acute metabolic encephalopathy likely secondary to uremia, expect to improve with improvement in uremia. Cardiac: NSTEMI versus PE versus demand ischemia. 2D echocardiogram With biventricular systolic congestive heart failure. Continues on heparin drip. Diuresis held secondary to intravascular depletion. Pulmonary: Acute hypoxic respiratory failure on the background of COVID-19 initially requiring ventilatory support. Extubated 03/21/2021. May have a component of PE. Empirically on heparin drip. Now on home FiO2 requirements (2L). Renal: Acute renal failure on the background of chronic kidney disease, may be related to COVID-19. Now with worsening uremia. Nephrology Service care appreciated. Non oliguric. Continue to monitor renal indices and urine output. Will plan for placement of tunneled dialysis catheter in a.m. and dialysis thereafter. Endo: No acute issues. GI: No acute issues. ID: COVID-19 now at baseline FiO2 requirements. Stopped dexamethasone/baricitinib. Empirically covered with Unasyn for pulmonary aspiration. Heme/Onc: No acute issues. Psych: No acute issues. Miscellaneous: No acute issues. Prophylaxis: Heparin drip, ppi Diet: NPO Critical care time spent: 45 minutes Quality Stroke Does the patient have a stroke diagnosis?: No VTE Prior VTE?: No VTE Risk Level:: Medical - moderate - high VTE Device Contraindication: Treatment Not Indicated VTE Drug Contraindication: N/A - Med Ordered
[2021-03-23] MEDS: Ampicillin Sodium/Sulbactam Na 3 GM in 0.9 % Sodium Chloride 100 ML IV ×2 (12:25→22:32)
[2021-03-23] MEDS: propofoL 1,000 MG/100 ML VIAL 9.6 MG IVCONT (13:20)
--- NOTE | 2021-03-23 13:22 | W.PM.CCHP ---
Procedures Date of Service Date of Service: 03/23/21 Intubation Intubation Comments: patient with development of respiratory distress and hypoxia likely secondary to aspiration and inability to protect airway. Intubated with 7.5 cuffed ET tube under glide scope guidance with no immediate complications. X-ray for ET tube position is pending. Consent for Procedure: Emergent-no informed consent obtained Sedative: propofol Mg given: 80
[2021-03-23] MEDS: propofoL 200 MG/20 ML VIAL 100 MG IVPUSH (13:32)
[2021-03-23 13:51] LABS: ABG Base Excess 0.6 mmol/L; ABG HCO3 19 mmol/L (22-26); ABG pCO2 20 mmHg (32-45); ABG pH 7.59 (7.35-7.45); ABG pO2 79 mmHg (83-108)
--- NOTE | 2021-03-23 15:23 | PC.NURSE ---
0730 this RN assessed patient. Patient ill appearing and more lethargic compared to yesterday. Unable to follow commands. Still not speaking, only moaning to painful stimuli or care. PERRLA but patient staring off and not tracking. Cough and gag present. Airway being maintained. NPO. Patient tachypneic with RR in the 40s with fio2 remaining in the mid 90s. VB.55/23/54/23. Pleural friction rub noted on auscultation. ST on tele with HR in the 120s on cardizem drip. Low urine output of 10ml/hr followed by no urine output. MD made aware of assessment findings. Per MD request, nephrology called for consult follow up for dialysis. Critical serum Cr. 4.83, reported to MD. Order for dialysis catheter placement through IR planned for 03/24/21 with pending dialysis following. Around 0845 patient's bp began trended down as low as 80/32. Cardizem and Fentaly drip held. MD notified. Levophed drip started per protocol, titrated for MAP >65 with good effect. NA 159, patient appearing dry. D5W @ 50 ml/hr started with no improvement in urine output. No urine output reported to MD. Around 1300 patient's mental status not improving, becoming less responsive to painful stimuli, MD aware. Remained tachypneic with RR 40s. Question of patient's ability to maintain airway/oral secretions. MD aware, MD decision to intubate. Head CT wo contrast ordered. Patient intubated around 1320 without difficulty. Patient tolerated well. Sedated with Propofol per MD order. ETT 7.5, 23 chris[address]acement confirmed with xray. Vent settings of AC rate 16, tidal vol 400, peep 5 fio2 40%, O2 sats trending in the the mid 90s. VB.59/20/79/19. Lightly sedated with Propofol, RASS -2. Remained on Levphed drip. Restraints applied for patient safety to prevent reaching for ETT. Patient tolerate transport and CT well, no negative events. Patient's daughter Anabel Galeas updated that patient was intubated and plan for dialysis tomorrow. Anabel verbalized understanding of need for both and will call back if she has any questions.
[2021-03-23] MEDS: Chlorhexidine Gluc Oral Rinse 15 ML MOUTHWASH BUCCAL ×2 (16:51→19:38)
[2021-03-23] MEDS: fentaNYL citrate/NS 1,000 MCG/100 ML PLAST..BAG 12.5 MCG IVCONT (17:49)
[2021-03-23] MEDS: propofoL 1,000 MG/100 ML VIAL 19.2 MG IVCONT ×2 (17:49→21:47)
[2021-03-23] MEDS: fentaNYL citrate/NS 1,000 MCG/100 ML PLAST..BAG 20 MCG IVCONT (22:32)
[2021-03-24] VITALS (33 sets, daily range): BP systolic 58–158; BP diastolic 13–131; PULSE 94–120; RESP 14–34; TEMP 34–39.3; O2SAT 90–97; BMI 31.0
[2021-03-24] MEDS: Heparin Sodium,Porcine/1/2NS 25,000 UNIT/250 ML IV.SOLN 9.4 UNIT IVCONT (02:21)
[2021-03-24] MEDS: propofoL 1,000 MG/100 ML VIAL 19.2 MG IVCONT ×5 (02:21→18:22)
[2021-03-24] MEDS: Dextrose 5 % 1,000 ML 50 ML IVCONT (03:22)
[2021-03-24] MEDS: fentaNYL citrate/NS 1,000 MCG/100 ML PLAST..BAG 17.5 MCG IVCONT (03:22)
--- NOTE | 2021-03-24 04:03 | PC.NURSE ---
Temp 102.7, no effect from prn tylenol previously administered. Orders to ice pack pt per [employer]IAN. Temp down to 102.2, no new orders.
[2021-03-24] MEDS: dilTIAZem HCL 125 MG in 0.9 % Sodium Chloride 100 ML 15 MG IVCONT ×2 (09:01→14:51)
[2021-03-24] MEDS: Chlorhexidine Gluc Oral Rinse 15 ML MOUTHWASH BUCCAL ×3 (09:01→20:27)
--- NOTE | 2021-03-24 10:13 | MHC.CLN ---
F/U PT WAS RE-INTUBATED AND REMAINS SEDATED NOTED FEVER-D5W AND POSSIBLE DIALYSIS TO START RECOMMEND NEPRO AT MAX GOAL RATE 20ML/HR WITH 240ML FREE WATER FLUSHES Q 6 HOURS TO PROVIDE 864KCALS (1541KCALS WITH SEDATIONAND IVF; 28KCALS/KG BASED ON IBW), 39G PROTEIN (.7G/KG), 1309CC TOTAL FREE WATER FROM FORMULA AND FLUSHES (24ML/KG BASED ON IBW) CAN ADJUST FREE WATER NEEDED R/T FEVER AND ELEVATED SERUM NA MONITOR TOLERANCE, RESIDUALS AND LYTES
[2021-03-24] MEDS: fentaNYL citrate/NS 1,000 MCG/100 ML PLAST..BAG 15 MCG IVCONT ×3 (10:29→21:24)
[2021-03-24] MEDS: Ampicillin Sodium/Sulbactam Na 3 GM in 0.9 % Sodium Chloride 100 ML IV (10:43)
[2021-03-24 12:43] LABS: Hematocrit 43.4 % (37.0-47.0); Hemoglobin 13.7 g/dl (12.0-16.0); Mean Corpuscular HGB Conc 31.6 g/dl (31.0-35.0); Mean Corpuscular Hemoglobin 28.2 pg (27.0-33.0); Mean Corpuscular Volume 89.5 fL (80.0-98.0); Mean Platelet Volume 10.6 fL (9.4-12.3); Platelet Count 365 X10*3/uL (160-400); Red Blood Count 4.85 X10*6/uL (4.20-5.50); Red Cell Distribution Width 16.2 % (11.0-16.0)
--- NOTE | 2021-03-24 12:47 | P.PNCC_ITS ---
Subjective Subjective Date of Service: 03/24/21 Interval History: Ms. Galeas was admitted to the ICU on Mar 18 with acute respiratory failure. The patient is a 60 yo F with PMHx of COPD on 2 L of supplemental oxygen; lung cancer s/p ?palliative? XRT with curative intent that was completed 23 months ago, polysubstance abuse now on methadone, seizure disorder, CKD stage 4-5, previously declined HD, and CHF.? She?s had COVID vaccine shots x3. The patient lives with her boyfriend and her son.? She walks with a cane.? She needs help with dressing and bathing.? Her daughter Anabel, who is the HCP (cell:? [phone]), tells me that her grandmother (the daughter?s grandmother), who?s 80 years old, is in better health than her mother (the patient). The patient was seen in the ED here on Mar 12 c/o SOB.? Dx?d with a COPD exacc.? (No CXR or COVID test done.)? Discharged with Prednisone script. The patient was BIBA on 03/18/2021 with SOB and confusion.? ABG showed 7.45/37/124 /+2.? CXR showed increased interstitial prominence bilaterally, and a new more focal hazy opacity in the left lower lobe.? COVID-19 test was positive.? BUN/creat were 131/2.5 (baseline about 90/3.2).? D-dimer was 2300.? She was covered with empiric broad-spectrum antibiotics.? In the ED, she developed hypoxia refractory to NIV and required intubation and ventilatory support.? She was admitted to ICU, and treated for COVID and was heparinzed for possible PE -- unable to do CTPA, and was unable to fit in perfusion scanner.? Noncontrast CT Chest on Mar 19 showed empysema; small areas of dense opacification in the posterior lower lobes, R>L; with scattered small areas of groundglass attenuation in the upper lobes. L> R; suggestive of multifocal pneumonia and/or sequelae of aspiration.? Venous Duplex scan on 03/19 was negative Peak trop was 2800.? EKG showed no ischemic changes.? Echocardiogram on Feb 9th showed LVEF 30% with marked RWMAs.? The RV size was mod increased, with mod decreased RV fxn.? IVC was dilated w no insp collapse.? RVSP estimate 41mm. ? Last echo 2018 showed normal LV fxn, mild LVH, normal right heart, no valvular pathology. The patient?s FiO2 came down rapidly, and bec of that, COVID pneumonia was felt unlikely and COVID treatment was stopped.? The patient was extubated on 03/21/2021. ?She was sat?ing up to 98% on 2L NC.? Heparinization was stopped.? The patient remained significantly encephalopathic, thought likely secondary to uremia.? Yesterday she developed respiratory distress and hypoxemia thought secondary to aspiration and inability to protect the airway.? The patient was reintubated.? By my reading, the post-intubation chest/x-ray looks clearer than her admission CXR with just a mild RML infiltrate.? CT scan yesterday showed no acute structural lesions to account for her encephalopathy. Today the patient is sedated on propofol 40ug w fentanyl 150ug.? Also on D5W 50cc, Levophed 0.35ug, and Diltiazem 15mg/hr.? Tmax 102.7.? HR 108, SR.? BP 96/58.?? On AC 16/400/40%/+5, RR was 30, Ve 12L, PIP 19cm, ETCO2 20, Sat 94%.? This morning?s VBG showed 7.36/22/-9.? PER, 1-2mm, No JVD at 30?, chest with diminished BS throughout, RRR, normal-sounding S1 and S2, with no murmur or gallops.? The abdomen is benign, she has minimal edema. LABORATORY DATA:? Below.? Notably, white count this morning up to 45, sodium is down to 153 on the D5W, BUN/creatinine up to 188/8.1, potassium is 4.9, phosphorus up to 8.1, transaminases much higher in the 5000 range, albumin 3.6.? Lactate 2.5 CXR post line placement:? Laregly clear, with RML infiltrate. IMPRESSION: 1. Underlying emphysematous lung disease. 2. Chronic hypoxemic and hypercapnic lung disease.? Blood gasses show signif hypercarbia dating back at least two years. 3. Underlying CKD 4-5. 4. Significant baseline disability 5. Acute respiratory failure, the etiology of which is not clear.? Her admitting CXR is c/w almost anything.? Although her chest CT is not inconsistent with mild COVID pneumonia, the fact that she went from 100% FiO2 to 2L NC (which is her baseline) in a few days is thoroughly inconsistent with severe COVID pneumonia.? I agree that there is no need here for treatment for COVID.? Could very well be PE.? Can?t be ruled out for sure on echo bec she has biventricular failure, not just RHF.? Duplex scan of UEs was negative. ?I will order Duplex of legs.? Also, maybe just do a CTPA once she?s on HD.? And not likely aspiration or bacterial or viral pneumonia, given the relatively clear CXR. 6. COVID positive.? As noted, she doesn?t have COVID pneumonia.? But we have no idea what her symptom onset date was.? So it?s possible that she?s in her viral phase now and might develop COVID pneumonia.? Or she might be post viral, and has escaped the major sequellae of COVID.? Important to know, bec if the former is the case, I would want to prophylax her, per the [facility].? I called the lab, we?ll run a serum IgG on a sample from Mar 21. 7. Biventricular heart failure.? Undetermined etiology.? The fact that she has RWMAs is very puzzling. 8. Hypotension.? Etiology not clear.? Could be sepsis (WBC, fever, and lactate), could be PE (hypoxemia, RV enlargement, DDimer), could be further heart failure.? Unlikely due to hypovolemia, given echo findings.? Needs another echo and IVC assessment to see if fluids would be helpful. 9. Acute on chronic renal failure.? Undoubtedly 2? ATN.? We?ll place a temp catheter tonite and start HD tomorrow. 10. Metabolic encephalopathy.? Presumably 2? uremia.? We?ll see how she is after 2-3 days of HD. 11. ID.? Fever and marked leukocytosis.?? Recultured her.? Currently only on Unasyn.? I?ll change to vanco and Zosyn pending cultures and sputum.? Send stool for CDiff given the WBC.? Pull her CVL.? Sepsis can?t be ruled out, but the lactic acid levels are essentially negative, given her transaminases.? And no fluids are indicated given the echo findings. 12. Transaminase elevations.? Very suggestive of shock liver.? Follow, and check hepatitis screen. I spoke by telephone at length twice today with the patient?s HCP, daughter Anabel (cell [phone]) and discussed with her her mother?s PMHx and functional situation, her current condition and prognosis, and arturo at length where to go from here, given that her mother is going to need dialysis.? Anabel told me that that was discussed with her mother once previously by her kidney doctors, and she refused.? She told me readily that her mother?s condition is bad.? We discussed what her mother?s road to recovery might look like if she survives this hospitalization.? It will be diffiuclt, arduous, and not very pleasant.? Anabel will d/w her family tonight whether or not they think we should proceed with dialysis. ADDENDUM at 7pm.? I got a call earlier from Kodi Mahmood (cell [phone], the patient?s significant other and her other HCP.? The main thing we talked about is that they decided that they definitely want to proceed with dialysis.? I got the feeling that they definitely want to proceed with all manner of care and there is no thought about ending critical care management. Critical care time (including full chart rev, hospital course summary, consultation with IR, and julio ct d/w family, nurses, and Dr. Shabazz; excluding procedures): ?3:15+ hours. Critical Care Time (minutes): 195 Physical Exam Vital Signs: Vital Signs: Last Vital Signs Temp 101.7 F H 03/24/21 11:00 Pulse 106 H 03/24/21 11:00 Resp 23 H 03/24/21 11:00 BP 106/37 L 03/24/21 11:00 Pulse Ox 94 03/24/21 11:00 BMI result Body Mass Index 31.0 Objective Data Labs CBC & Chem 7: 03/25/21 05:38 03/25/21 05:38 Labs: Laboratory Results - last 24 hr 03/23/21 13:44 O2 Saturation 95.0 ABG pH at Pt Temp 7.59 H ABG pCO2 at Pt Temp 20 L* ABG pO2 at Pt Temp 79 L ABG HCO3 19 L ABG Base Excess (Actual) 0.6 Microbiology Microbiology Results: Microbiology 03/18/21 19:37 Blood - Venous Blood Culture - Final No growth after 5 days. 03/18/21 19:37 Blood - Venous Blood Culture - Final Quality Stroke Does the patient have a stroke diagnosis?: No VTE Prior VTE?: No VTE Risk Level:: Medical - moderate - high VTE Device Contraindication: Treatment Not Indicated VTE Drug Contraindication: N/A - Med Ordered Critical Care Time Critical Care Time (minutes): 210
[2021-03-24 12:53] LABS: PTT Heparin Drip 34.9 SEC (53-77.9)
[2021-03-24 12:57] LABS: NRBC Pct Auto 8.8 /100WBC (0.0-0.2); White Blood Count 45.2 X10*3/uL (4.8-10.8)
[2021-03-24 13:04] LABS: Band Neutrophils Percent 13 % (3-5); Lymphocytes Absolute Manual 2.3 X10*3/uL (1.2-4.9); Lymphocytes Percent Manual 5 % (20-40); Metamyelocytes Absolute 1.4 X10*3/uL; Metamyelocytes Percent 3 %; Monocytes Absolute Manual 0.5 X10*3/uL (0.1-1.2); Monocytes Percent Manual 1 % (2-11); Neutrophils Absolute Manual 41.1 X10*3/uL (2.0-8.3); Neutrophils Percent Manual 78 % (45-73); Nucleated Red Blood Cells 6 /100WBC (0-0)
[2021-03-24 13:05] LABS: Albumin Level 3.6 g/dL (3.5-5.0); Alkaline Phosphatase 60 U/L (39-117); Anion Gap 34 (12-20); Calcium 9.3 mg/dL (8.4-10.2); Carbon Dioxide 14 mmol/L (22-29); Chloride 110 mmol/L (96-108); Creatinine Clr Calc Pharmacy 7.7; Estimated Glomerular Filt Rate 5; Glucose Random 117 mg/dL (60-115); Magnesium 2.7 mg/dL (1.6-2.6); Phosphorus 8.1 mg/dL (2.7-4.5); Potassium 4.9 mmol/L (3.3-5.1); Sodium 153 mmol/L (135-145); Total Protein 7.1 g/dL (6.5-8.0)
[2021-03-24 13:08] LABS: Macrocytosis 1+ (5-14) /OIF; Platelet Estimate NORMAL (NORMAL); Platelet Morphology Comment NORMAL; Polychromasia 1+ (0-2) /OIF; RBC Morphology NOTED
[2021-03-24 13:18] LABS: Alanine Aminotransferase 4008 U/L (0-31); Blood Urea Nitrogen 188 mg/dL (9-16)
[2021-03-24 13:24] LABS: Aspartate Amino Transferase 5056 U/L (5-31)
--- NOTE | 2021-03-24 14:15 | MHC.CM.PN ---
Pt required reintubation on 03/23 d/t aspiration: no plans to extubate: Pt will likely require STR following her prolonged stay: CM to follow.
[2021-03-24] MEDS: Famotidine/PF 20 MG/2 ML VIAL 10 MG IVPUSH (14:50)
[2021-03-24 14:54] LABS: VBG Base Excess -9.8 mmol/L; VBG HCO3 13 mmol/L (22-26); VBG pCO2 22 mmHg; VBG pH 7.36 (7.32-7.43); VBG pO2 49 mmHg
[2021-03-24 14:57] LABS: Venous Blood Gas Refer to POC result
--- NOTE | 2021-03-24 15:05 | W.PM.CCHP ---
Procedures Date of Service Date of Service: 03/24/21 Central Line Placement Left SC: Central Line Comments: PROCEDURE:? Insertion left supraclavicular subclavian triple lumen central venous catheter. INDICATION:? Acute respiratory failure; shock. ANESTHESIA:? Local. PROCEDURE:? Vascular ultrasound was used to examine the left neck, left supraclavicular and left subclavian areas.? A large compressible subclavian vein was noted in the supraclavicular fossa. The left neck, supraclavicular, and subclavian areas were widely prepped and draped in full sterile fashion.? Local anesthesia was applied to the left supraclavicular subclavian insertion site.? The supraclavicular vein was located by ultrasound.? The 18 gauge needle cannulated the left supraclavicular subclavian vein under direct ultrasound guidance on the first pass.? There was easy aspiration of dark blood.? The wire was threaded without incident.? The 7Fr x 20cm triple lumen catheter was then inserted via Seldinger tech without incident.? There was good blood return x3.? The catheter was sutured x3 and a Biopatch and dry sterile dressing were applied. Postop chest x-ray showed the line in good position with no pneumothorax.? The patient tolerated the procedure well w no complications.
[2021-03-24 17:06] LABS: Appearance Urine HAZY; Color Urine YELLOW; Glucose Urine UA NEG (NEG); Leukocyte Esterase Urine NEG (NEG); Nitrite Urine NEG (NEG); Specific Gravity - Urine >= 1.030 (1.005-1.025); Urine Blood NEG (NEG); Urine Ketones 15 MG/DL (NEG); Urine Protein 2+ MG/DL (NEG-TRACE)
[2021-03-24 17:22] LABS: Lactic Acid 2.5 mmol/L (0.5-2.0)
[2021-03-24 17:57] LABS: Bacteria Urine TRACE /LPF; RBC Urine 0 /HPF (0); Renal Epithelial Cells Urine 1+ /LPF
[2021-03-24 18:56] LABS: Reflex Lactate? Lactic Acid Added
[2021-03-24 19:55] LABS: ~Lactic Acid-LAB USE ONLY 2.3 mmol/L (0.5-2.0)
[2021-03-24 20:19] LABS: Cancel Lactic Acid Canceled
[2021-03-24 20:20] LABS: Reflex Lactate? 2 N
--- NOTE | 2021-03-24 20:55 | PHA.PROG ---
Admission Date/Time: March 18, 2021 22:11 Indication: Sepsis Weight in k kg Adjusted body weight in K.62 kg [place] body weight in K.7 kg Obesity Dosing Indication % IBW: 149 % Serum Creatinine - Last 168 Hours 03/18/21 03/19/21 03/19/21 20:13 01:29 05:29 Creatinine 2.54 H 2.32 H 2.36 H 03/20/21 03/20/21 03/21/21 05:43 20:52 06:12 Creatinine 2.21 H 2.25 H 2.36 H 03/21/21 03/22/21 03/23/21 22:01 05:40 07:41 Creatinine 2.48 H 2.64 H 4.83 H* 03/24/21 12:29 Creatinine 8.14 H* Estimated CrCl and GFR - Last 168 Hours 03/18/21 03/19/21 03/19/21 20:13 01:29 05:29 Estim Creat Clear Calc 33.2 36.4 35.8 Estimated GFR 19 22 21 03/20/21 03/20/21 03/21/21 05:43 20:52 06:12 Estim Creat Clear Calc 30.1 29.5 27.7 Estimated GFR 23 22 21 03/21/21 03/22/21 03/23/21 22:01 05:40 07:41 Estim Creat Clear Calc 26.4 20.0 12.9 Estimated GFR 20 19 9 03/24/21 12:29 Estim Creat Clear Calc 7.7 Estimated GFR 5 Vancomycin Loading Dose: 1000 mg Current Vancomycin Dosing Regimen: dose daily based on post-dialysis random (500 mg Q24H is on hold) Date and Time for next Vancomycin Level to be drawn: 03/25 @ 1800 Vancomycin Trough 26.8 mcg/mL (10.0-20.0) H* 03/20/21 18:02 Pharmacist Comments on Vancomycin Plan: Patient's last dose of vancomycin 750 mg on 03/19 @ 1924. Vanco was then put on held due to a supratheraputic trough of 26.8. Patient is severely sepstic therefore vancomycin is being restarted. Will re-load the patient with 1000 mg (~12 mg/kg) on 03/24 @ 2100. Patient may have some residual vancomycin that has not been clear yet so I do not want to give the full 1250 mg LD that is usually given in renal failure patients at her weight. Following dosescan be adjusted. Patient is expected to get dialysis tomorrow 03/25. A post-dialysis random will be drawn to determine vancomycin dose. Vancomycin 500 mg is on hold, and will be adjusted if level is <8 or > 14 Dose will be evaluated daily based on dialysis day Claudette Camacho PharmD Vancomycin dosing will take advantage of [employer] as a clinical decision support tool that uses Bayesian modeling to calculate individual patient's pharmacokinetic parameters and forecast the patient's drug concentration time course with the target goal AUC 24 range of 400 - 600 mg/L/hr.
[2021-03-24] MEDS: vancomycin HCL 1,000 MG in 0.9 % Sodium Chloride 250 ML 270 MG IV (21:26)
--- NOTE | 2021-03-24 23:43 | W.PM.CCHP ---
Procedures Date of Service Date of Service: 03/24/21 Abscess I/D Sedation/analgesia: fentanyl Central Line Placement Right IJ: Central Line Comments: RIGHT 12 F HD POWER LINE PLACEMENT A QUICK TIME-OUT WAS MADE FOR CLARIFICATION AND PROPER PATIENT IDENTIFICATION, PATIENT WAS POSITIONED, LANDMARKS WERE IDENTIFIED, US USED TO LOCATE A LARGE COMPRESSIBLE IJ. THE RIGHT NECK WAS WIDELY PREPPED AND DRAPED IN A FULL STERILE FASHION. ULTRASOUND WAS USED TO LOCATE AGAIN THE RIGHT IJ, THE VEIN WAS CANNULATED ON THE 1ST PASS WITH AN 18 GAUGE THIN NEEDLE, DARK NONPULSATILE BLOOD RETURN WAS OBTAINED. THE WIRE WAS THREADED, A SMALL INCISION WAS MADE AT ITS BASE AND DILATOR INSERTED. A TRIPLE-LUMEN 12 F HD POWER LINE WAS ADVANCED INTO THE VEIN UP TO THE HUB WITHOUT PROBLEMS, WIRED WAS REMOVED. PORTS HAD GOOD BLOOD RETURN AND FLUSHED X3. THE CATHETER WAS SECURED WITH 3 SUTURES AT 3 SITES, A BIOPATCH AND DRY STERILE DRESSING WERE APPLIED. POST PROCEDURE CHEST X-RAY SHOWED THE LINE TO BE IN GOOD POSITION WITHOUT PNEUMOTHORAX. NO BLEEDING OR COMPLICATIONS NOTED. Consent for Procedure: Emergent-no informed consent obtained Time out performed: Yes Sterile Technique Used: Yes Patient placed on monitor/pulse ox: Yes prep: mask, gown and gloves Central line prep: Chlorhexidine scrub Local anesthesia used: other anesthetic (PROPOFOL) Amount of anesthesia used (ml): 5 Ultrasound used for placement: Yes Central line lumen inserted: triple Post procedure: sutured in place, good blood return, all ports aspirated, flushed, capped and sterile dressing applied Post procedure x-ray: tip of catheter in good position and no pneumothorax seen Patient tolerated procedure: well Complications: none
[2021-03-25] VITALS (30 sets, daily range): BP systolic 69–132; BP diastolic 32–68; PULSE 74–112; RESP 17–31; TEMP 35.1–43.7; O2SAT 93–96; BMI 31.1
[2021-03-25] MEDS: Piperacillin Sodium/Tazobactam 4.5 GM in 0.9 % Sodium Chloride 100 ML IV ×2 (00:02→14:11)
[2021-03-25] MEDS: Sodium Chloride 0.45 % 1,000 ML 500 ML IVCONT (00:03)
--- NOTE | 2021-03-25 01:28 | W.PM.CCHP ---
Procedures Date of Service Date of Service: 03/24/21 Central Line Placement Right IJ: Central Line Comments: Placement of a 12 M[place]ese triple-lumen hemodialysis catheter under ultrasound A quick time-out was made for clarification and proper patient identification, patient was positioned, landmarks were identified, US used to locate a large compressible IJ. The right neck was widely prepped and draped in a full sterile fashion. Ultrasound was used to locate again the right IJ, the vein was cannulated on the 1st pass with an 18 gauge thin needle, dark nonpulsatile blood return was obtained. The wire was threaded, a small incision was made at its base and dilator inserted. A triple-lumen hemodialysis 12 Maltese power line catheter was advanced into the vein up to the hub without problems, wired was removed. Ports had good blood return and flushed x3. The catheter was secured with 3 sutures at 3 sites, a Biopatch and dry sterile dressing were applied. Post procedure chest x-ray showed the line to be in good position without pneumothorax. No bleeding or complications noted. Consent for Procedure: Emergent-no informed consent obtained Time out performed: Yes Sterile Technique Used: Yes Patient placed on monitor/pulse ox: Yes prep: mask, gown and gloves Local anesthesia used: other anesthetic (Propofol) Amount of anesthesia used (ml): 5 Ultrasound used for placement: Yes Central line lumen inserted: triple Post procedure: sutured in place, good blood return, all ports aspirated, flushed, capped and sterile dressing applied Post procedure x-ray: tip of catheter in good position and no pneumothorax seen Patient tolerated procedure: well and no complications Complications: none
[2021-03-25] MEDS: dilTIAZem HCL 125 MG in 0.9 % Sodium Chloride 100 ML 10 MG IVCONT ×2 (01:54→07:57)
[2021-03-25] MEDS: propofoL 1,000 MG/100 ML VIAL 19.2 MG IVCONT ×4 (02:01→12:33)
[2021-03-25] MEDS: Sodium Chloride 0.45 % 1,000 ML 80 ML IVCONT ×2 (02:03→13:33)
[2021-03-25] MEDS: fentaNYL citrate/NS 1,000 MCG/100 ML PLAST..BAG 15 MCG IVCONT ×4 (03:20→20:54)
[2021-03-25 04:19] LABS: SARS COV2 IgG Positive (Negative)
[2021-03-25 05:46] LABS: VBG Base Excess -12.7 mmol/L; VBG HCO3 11 mmol/L (22-26); VBG pCO2 23 mmHg; VBG pH 7.29 (7.32-7.43); VBG pO2 53 mmHg
[2021-03-25 05:48] LABS: Venous Blood Gas Refer to POC result
[2021-03-25 05:49] LABS: Hematocrit 35.2 % (37.0-47.0); Hemoglobin 11.4 g/dl (12.0-16.0); Mean Corpuscular HGB Conc 32.4 g/dl (31.0-35.0); Mean Corpuscular Hemoglobin 29.2 pg (27.0-33.0); Mean Corpuscular Volume 90.3 fL (80.0-98.0); Mean Platelet Volume 11.2 fL (9.4-12.3); Platelet Count 266 X10*3/uL (160-400); Red Cell Distribution Width 15.6 % (11.0-16.0)
[2021-03-25 05:52] LABS: WBC ABN SCTR FOR CBC 1
[2021-03-25 05:57] LABS: White Blood Count 49.4 X10*3/uL (4.8-10.8)
[2021-03-25 06:03] LABS: Lactic Acid 1.4 mmol/L (0.5-2.0)
[2021-03-25 06:09] LABS: B Type Natriuretic Peptide 1024 pg/mL (<100)
[2021-03-25 06:14] LABS: Alanine Aminotransferase 3746 U/L (0-31); Albumin Level 2.8 g/dL (3.5-5.0); Alkaline Phosphatase 56 U/L (39-117); Anion Gap 30 (12-20); Aspartate Amino Transferase 3405 U/L (5-31); Bilirubin Total 1.3 mg/dL (0.0-1.0); Carbon Dioxide 12 mmol/L (22-29); Chloride 110 mmol/L (96-108); Creatinine Clr Calc Pharmacy 7.1; Estimated Glomerular Filt Rate 5; Glucose Random 109 mg/dL (60-115); Magnesium 2.2 mg/dL (1.6-2.6); Phosphorus 8.3 mg/dL (2.7-4.5); Potassium 4.9 mmol/L (3.3-5.1); Sodium 147 mmol/L (135-145); Total Protein 5.9 g/dL (6.5-8.0)
[2021-03-25 06:23] LABS: Procalcitonin 10.41 ng/mL
[2021-03-25 06:29] LABS: Blood Urea Nitrogen 186 mg/dL (9-16)
[2021-03-25 06:37] LABS: Band Neutrophils Percent 4 % (3-5); Lymphocytes Percent Manual 4 % (20-40); Metamyelocytes Absolute 2.5 X10*3/uL; Metamyelocytes Percent 5 %; Monocytes Percent Manual 2 % (2-11); Myelocytes Absolute 0.5 X10*/uL; Myelocytes Percent 1 %; Neutrophils Absolute Manual 43.5 X10*3/uL (2.0-8.3); Neutrophils Percent Manual 84 % (45-73); Nucleated Red Blood Cells 2 /100WBC (0-0)
[2021-03-25 06:44] LABS: Pappenheimer Bodies PRESENT
[2021-03-25 06:45] LABS: Macrocytosis 1+ (5-14) /OIF; Ovalocytes 1+ (5-14) /OIF; RBC Morphology NOTED; Target Cells 1+ (5-14) /OIF; Tear Drop Cells 1+ (0-2) /OIF
[2021-03-25 06:46] LABS: Large Platelet PRESENT; Platelet Estimate NORMAL (NORMAL); Platelet Morphology Comment NOTED
[2021-03-25 06:52] LABS: Lactate Dehydrogenase 8138 U/L (122-220)
[2021-03-25 07:09] LABS: Ferritin > 30000 ng/mL (10-250)
[2021-03-25] MEDS: Chlorhexidine Gluc Oral Rinse 15 ML MOUTHWASH BUCCAL ×3 (07:53→19:52)
[2021-03-25] MEDS: Acetaminophen Supp 650 MG SUPP.RECT PR (07:59)
--- NOTE | 2021-03-25 10:53 | PC.NURSE ---
Hemodialysis began at 1015. C diff sample sent.
[2021-03-25 12:17] LABS: CDiff Gene PCR NEGATIVE (Negative)
[2021-03-25] MEDS: Albumin Human 25 % 50 ML 100 ML IV ×2 (12:34→23:43)
[2021-03-25 12:58] LABS: VBG Base Excess -3.9 mmol/L; VBG HCO3 19 mmol/L (22-26); VBG pCO2 29 mmHg; VBG pH 7.41 (7.32-7.43); VBG pO2 37 mmHg
[2021-03-25 13:24] LABS: Leukocytes Stool Qualitative NEGATIVE (NEGATIVE)
[2021-03-25 13:37] LABS: Lactic Acid 4.8 mmol/L (0.5-2.0)
[2021-03-25 15:14] LABS: ABG HCO3 15 mmol/L (22-26); ABG pCO2 23 mmHg (32-45); ABG pH 7.41 (7.35-7.45); ABG pO2 76 mmHg (83-108)
[2021-03-25 15:17] LABS: Reflex Lactate? Lactic Acid Added
--- NOTE | 2021-03-25 15:34 | P.CNID_ITS ---
History of Present Illness Data of Consult Service Date: 03/25/21 Requesting physician: Deacon Han Primary Care Provider: Valerie Castano MD HPI Reason for consult: shock She presents on 03/19/2021 with worsening shortness of breath. She had been seen day before and received Prednisone with antibiotics and felt worse ?Zpack She then developed worse respiratory distress and went to ICU. She was intubated and extubated and reintubated and now is TV 400 and 40% FiO2 She was extubated and then reintubated with RML infiltrate She was placed on Vancomycin and Zosyn. She has positive COVID test on 03/19/2021. She has elevated ferritin and EF 35% on bedside echo then felt with formal echo 50% EF. She is on Levophed now .76 due to hypotension. Review of Systems Review of Systems: Yes unobtainable due to endotracheal tube PMFSH Past Medical History Medical History Anemia in chronic kidney disease Anxiety and depression Breast cancer screening by mammogram COPD (chronic obstructive pulmonary disease) COVID-19 vaccine series completed Dyslipidemia History of claustrophobia History of seizure HTN (hypertension) Hx of cardiac arrest Infected lip laceration Kidney disease Lung cancer Methadone maintenance therapy patient Multiple fractures of ribs O2 dependent LEO (obstructive sleep apnea) Respiratory failure Restrictive lung disease Tubular adenoma of colon Vitamin D deficiency Family History Family History Father Diabetes mellitus Mother Depression Mental health disorder Maternal Grandfather Colon cancer Sister No problems noted. Son No problems noted. Daughter No problems noted. Daughter No problems noted. Family history: reviewed and not pertinent Surgical History Surgical History H/O colonoscopy History of hand surgery History of laparoscopy History of tubal ligation S/P ureteral stent placement Social History Social History Household Members: Spouse Housing: House Are you a primary critical care technician to a significant other at home: No Do you presently have visiting nurse or other home services: Yes Unable to assess alcohol history related to: Unable to respond Alcohol intake: never Patient Tobacco Use Status: Former Tobacco user Quit Date: 2011 Tobacco use type: Cigarette Years Smoked: 25 yrs Use of substances other than those prescribed or required for medical reasons: Unable to respond Currently Displaying Signs/Symptoms of Drug Intoxication Withdrawal: No Advance Directives: Yes Advance Directives Information Provided: No Advance Directives on File: Yes Advance Directives Date on File: 03/21/21 Recently lost weight without trying: Unsure Nutrition Risks: No Nutritional Risk Patient : No service: No Current occupational status: disabled Meds Allergies Allergy/AdvReac Type Severity Reaction Status Date / Time ciprofloxacin [From Cipro] Allergy Unknown HIVES/SWELLING, Verified 02/20/21 15:09 THROAT CLOSES shellfish derived Allergy Unknown UNKNOWN Verified 02/20/21 15:09 [SHELLFISH DERIVED] NSAIDS AdvReac Unknown avoid cue Verified 02/20/21 15:09 to kidney disease Active Medications: Current Medications Acetaminophen (Acetaminophen Supp 650 Mg Supp.Rect) 650 mg NC Q6H PRN PRN Reason: Fever >101 Last Admin: 03/25/21 07:59 Dose: 650 mg Documented by: Chlorhexidine Gluconate (Chlorhexidine Gluc Oral Rinse 15 Ml Mouthwash) 15 ml BUCCAL TID ANALISA Last Admin: 03/25/21 07:53 Dose: 15 ml Documented by: Famotidine (Famotidine/Pf 20 Mg/2 Ml Vial) 10 mg IVPUSH DAILY@1700 ANALISA Last Admin: 03/24/21 14:50 Dose: 10 mg Documented by: Heparin Sodium (Porcine) (Heparin Sodium,Porcine 5,000 Unit/Ml Vial) 5,000 unit SUBCUT Q8H ANALISA Fentanyl (Sublimaze/Ns) 1,000 mcg in 100 mls @ 0 mls/hr IVCONT .Q0M ANALISA; Protocol Last Admin: 03/25/21 14:11 Dose: 150 mcg/hr, 15 mls/hr Documented by: Norepinephrine Bitartrate (Levophed) 8 mg in 250 mls @ 0 mls/hr IVCONT .Q0M ANALISA; Protocol Last Admin: 03/25/21 15:32 Dose: 0.78 mcg/kg/min, 127.09 mls/hr Documented by: Diltiazem HCl 125 mg/ Sodium (Chloride) 125 mls @ 0 mls/hr IVCONT .Q0M ANALISA; Protocol Last Titration: 03/25/21 12:00 Dose: 0 mg/hr, 0 mls/hr Documented by: Propofol (Diprivan) 1,000 mg in 100 mls @ 0 mls/hr IVCONT .Q0M [facility]; Protocol Last Titration: 03/25/21 15:00 Dose: 20 mcg/kg/min, 9.6 mls/hr Documented by: Piperacillin Sod/Tazobactam (Sod 4.5 gm/ Sodium Chloride) 100 mls @ 200 mls/hr IV Q12H [facility] Last Infusion: 03/25/21 14:41 Dose: Infused Documented by: Vancomycin HCl 500 mg/ Sodium (Chloride) 110 mls @ 110 mls/hr IV Q24H ANALISA Sodium Chloride () 1,000 mls @ 80 mls/hr IVCONT .[id number] [facility] Last Admin: 03/25/21 13:33 Dose: 80 mls/hr Documented by: Lorazepam (Lorazepam 2 Mg/Ml Vial) 0.5 mg IVPUSH Q6H PRN PRN Reason: Anxiety Last Admin: 03/22/21 19:25 Dose: 0.5 mg Documented by: Naloxone HCl (Naloxone Hcl 0.4 Mg/Ml Vial) 0.2 mg IVPUSH Q2M PRN PRN Reason: Excessive sedation or RR < 8 Pharmacy Consult (Consult Rx Vancomycin Dosing) 1 each MISCELLANE DAILY PRN PRN Reason: Consult order Pharmacy Consult (Consult Rx Vancomycin Dosing) 1 each MISCELLANE DAILY PRN PRN Reason: Consult order Home Medications Medication Instructions Recorded Confirmed Last Taken Type albuterol sulfate 2.5 mg INHALATION Q6H PRN 04/25/20 10/15/20 10/09/20 History clonazepam 1 mg tablet (Klonopin) 1 mg PO TID 04/25/20 03/18/21 10/09/20 History diltiazem HCl 120 mg 1 cap PO DAILY 04/25/20 03/18/21 Unknown History capsule,extended release 24 hr hydroxyzine pamoate 50 mg capsule 50 mg PO BEDTIME PRN 04/25/20 03/18/21 Unknown History metolazone 2.5 mg tablet 2.5 mg PO 2XW 07/24/20 03/18/21 Unknown History torsemide 20 mg tablet 40 mg PO BID tab 08/03/20 03/18/21 Unknown History methadone 10 mg/mL oral concentrate 73 mg PO DAILY ml 09/04/20 10/15/20 Unknown History isosorbide mononitrate 60 mg 60 mg PO DAILY 03/18/21 03/18/21 Unknown History tablet,extended release 24 hr Physical Exam Vital Signs: Vital Signs: Last Vital Signs Temp 99.0 F 03/25/21 14:56 Pulse 112 H 03/25/21 14:56 Resp 25 H 03/25/21 14:56 BP 112/58 L 03/25/21 14:56 Pulse Ox 94 03/25/21 14:56 BMI result Body Mass Index 31.1 Const: General: cooperative HENMT: Head: Yes normal to inspection Mouth: Normal oral and palatal mucosa present Eyes: Pupils: Equal, round and reactive pupils present Resp: Other: vented Cardio: Rate: regular rate Rhythm: regular rhythm GI: Palpation (GI): nontender Skin: General skin exam: no rashes or lesions noted Neuro: Cranial nerves: Yes Equal, round and reactive pupils present Extrem: General: Yes normal to inspection Results Labs CBC & Chem 7: 03/25/21 05:38 03/25/21 05:38 Labs: Short CBC 03/25/21 Range/Units 05:38 WBC 49.4 H* (4.8-10.8) X10*3/uL Hgb 11.4 L (12.0-16.0) g/dl Hct 35.2 L (37.0-47.0) % Plt Count 266 D (160-400) X10*3/uL BMP 03/25/21 05:38 Sodium 147 H Potassium 4.9 Chloride 110 H Carbon Dioxide 12 L BUN 186 H Creatinine 8.94 H* Calcium 8.0 L D Liver Function 03/25/21 Range/Units 05:38 Total Bilirubin 1.3 H (0.0-1.0) mg/dL AST 3405 H (5-31) U/L ALT 3746 H (0-31) U/L Alkaline Phosphatase 56 (39-117) U/L Albumin 2.8 L D (3.5-5.0) g/dL Urine 03/24/21 Range/Units 16:49 Urine Color YELLOW Urine Appearance HAZY Urine pH 5.0 (5.0-8.0) Ur Specific [place] >= 1.030 H (1.005-1.025) Urine Protein 2+ H (NEG-TRACE) MG/DL Urine Glucose (UA) NEG (NEG) MG/DL Microbiology Microbiology Results: Microbiology 03/24/21 16:50 Urine Catheterized - Witt Catheter Urine Culture - Preliminary Culture in progress. 03/18/21 19:37 Blood - Venous Blood Culture - Final No growth after 5 days. 03/18/21 19:37 Blood - Venous Blood Culture - Final Assessment and Plan (1) Uremia: Status: Acute (2) Metabolic encephalopathy: Status: Acute (3) Acute on chronic systolic (congestive) heart failure: Status: Acute (4) Hx of cardiac arrest: Status: Acute (5) Acute respiratory failure with hypoxia: Status: Acute There is highest concern for MIS-A (multisystem inflammatory syndrome-adult) in this patient which occurs within twelve weeks after diagnosis of COVID. She has positive COVID test 03/19/2021 She is over 23 years old and has had symptoms within first three days of hospitalization of fever subjective or documented greater than or equal to 38.0 and at least three of following symptoms. She has primary symptom of cardiac dysfunction with some mild lowered EF and increased troponin?myocarditis. She also has secondary clinical criteria or encephalopathy and shock or hypotension and elevated levels of both ferritin and procalcitonin. Also there is possible aspiration pneumonia including MRSA or other ?fungal. There is also possibility of Legionella. HIV is less likely (6) Elevated troponin: Status: Acute Plan Check HIV test. Check Legionella urine. Check MRSA nares. Give Doxycycline 100 mg IV bid. Consider steroids and IVIG per MISC-A treatment.
[2021-03-25] MEDS: Adenosine 6 MG/2 ML VIAL IVPUSH (16:00)
--- NOTE | 2021-03-25 16:05 | PM.CCPN ---
Subjective Subjective Date of Service: 03/25/21 Interval History: Ms. Galeas was admitted to the ICU on Mar 18 with acute respiratory failure. The patient is a 60 yo F with PMHx of COPD on 2 L of supplemental oxygen; lung cancer s/p ?palliative? XRT with curative intent that was completed 23 months ago, polysubstance abuse now on methadone, seizure disorder, CKD stage 4-5, previously declined HD, and CHF.? She?s had COVID vaccine shots x3. The patient lives with her boyfriend and her son.? She walks with a cane.? She needs help with dressing and bathing.? Her daughter Anabel, who is the HCP (cell:? [phone]), tells me that her grandmother (the daughter?s grandmother), who?s 80 years old, is in better health than her mother (the patient). The patient was seen in the ED here on Mar 12 c/o SOB.? Dx?d with a COPD exacc.? (No CXR or COVID test done.)? Discharged with Prednisone script. The patient was BIBA on 03/18/2021 with SOB and confusion.? ABG showed 7.45/37/124/+2.? CXR showed increased interstitial prominence bilaterally, and a new more focal hazy opacity in the left lower lobe.? COVID-19 test was positive.? BUN/creat were 131/2.5 (baseline about 90/3.2).? D-dimer was 2300.? She was covered with empiric broad-spectrum antibiotics.? In the ED, she developed hypoxia refractory to NIV and required intubation and ventilatory support.? She was admitted to ICU, and treated for COVID and was heparinzed for possible PE -- unable to do CTPA, and was unable to fit in perfusion scanner.? Noncontrast CT Chest on Mar 19 showed empysema; small areas of dense opacification in the posterior lower lobes, R>L; with scattered small areas of groundglass attenuation in the upper lobes. L> R; suggestive of multifocal pneumonia and/or sequelae of aspiration.? Venous Duplex scan on 03/19 was negative Peak trop was 2800.? EKG showed no ischemic changes.? Echocardiogram on Feb 9th showed LVEF 30% with marked RWMAs.? The RV size was mod increased, with mod decreased RV fxn.? IVC was dilated w no insp collapse.? RVSP estimate 41mm. ?Last echo 2018 showed normal LV fxn, mild LVH, normal right heart, no valvular pathology. The patient?s FiO2 came down rapidly, and bec of that, COVID pneumonia was felt unlikely and COVID treatment was stopped.? The patient was extubated on 03/21/2021. ?She was sat?ing up to 98% on 2L NC.? Heparinization was stopped.? The patient remained significantly encephalopathic, thought likely secondary to uremia.? On Mar 23 she developed respiratory distress and hypoxemia thought secondary to aspiration and inability to protect the airway.? The patient was reintubated.? By my reading, the post-intubation chest/x-ray looks clearer than her admission CXR with just a mild RML infiltrate.? CT scan that day showed no acute structural lesions to account for her encephalopathy. Yesterday, I changed her right sided CVL to a left subclavian CVL, and we placed a temporary dialysis catheter in the right IJV.? We also recultured her bec of temp > 102, and changed the Unasyn to vanco and Zosyn pending cultures. Echo last night showed relatively normal left and right heart, normal RV size, and normal size IVC with at least 50% contractility.? I added ? NS IVFs.? Duplex scan of her LEs was negative. This morning we put her on dialysis without taking much fluid.? Her BP dropped precipitously, and the Levophed requirement cally to 0.7 ug.? I reecho?d her with the automatic equipment technician.? My reading:? Low normal LV systolic function, EF of 50-55%.? No RWMAs noted, except possibly apical hypok.? Normal LV and RV size.? Normal RV contractility. ?No MR.? < 1+ TR.? TR jet 2.4m/sc.? IVC measured 1.5cm, with near full insp collapse. I placed a radial A-line (separate procedure) which unfortunately has a very damped waveform, but the diastolic is matching the cuff diastolic blood pressure.? Later this afternoon, the patient went into a flutter.? We gave her two bolus doses of amiodarone which did not help very much.? So we?ve started her back on the diltiazem. Currently sedated on propofol 20ug and fentanyl 150 ug.? Also on Levophed 0.5ug, Diltiazem 10mg, and 1/2NS 80cc/hr.? Tmax down to 101.1?.? HR [address] with SR.? BP 112/57.? On AC 16/400/40%/+5, RR is 25, Ve 9.6L, PIP 19, ETCO2 20, Sat 95%.? ABG earlier 7.41/23/-7.? Lactic acid was 4.8.? No JVD at 30?, chest with diminished BS throughout.? The abdomen is benign, she has minimal edema. LABORATORY DATA:? Below.? Notably, white count up to 49, Hb down to 11.4, sodium down to 147, B/creat up to 186/8.9, bicarb down to 12, potassium steady at 4.9, phosphorus up to 8.3, transaminases down to 3000s, Lactate down to 1.4.? Ferritin greater than 30,000, CRP 6, P CT 10.4, BNP 1024. MICROBIOLOGY:? No sputum sample able to be obtained.? U/A negative.? BCs negative so far. SEROLOGY:? CDiff tox gene negative.? SARs CoV 2 IgG antibody positive on Mar 21. IMPRESSION: 1. Underlying emphysematous lung disease. 2. Chronic hypoxemic and hypercapnic lung disease.? Blood gasses show signif hypercarbia dating back at least two years. 3. Underlying CKD 4-5. 4. Significant baseline disability 5. Acute respiratory failure, the etiology of which is not clear.? Her admitting CXR was c/w almost anything.? Although her chest CT was not inconsistent with mild COVID pneumonia, the fact that she went from 100% FiO2 to 2L NC (which is her baseline) in a few days is thoroughly inconsistent with severe COVID pneumonia.? I agree that there is no need here for treatment for COVID (see further below).? Could very well be PE.? Can?t be ruled out for sure on echo bec she has biventricular failure, not just RHF.? But Duplex scan of UEs and LEs was negatived.? We?ll send her for a perfusion scan.? And not likely aspiration or bacterial or viral pneumonia, given the relatively clear CXR. 6. COVID positive.? As noted, she doesn?t have COVID pneumonia.? Her serum IgG was positive on Mar 21.? So her infection date was no later than, say, Mar 07.? It?s almost a certainty that she?s post viral.? It?s possible that she?s about to enter the post viral pulmonary phase, but that would be a stretch.? I wouldn?t take any prophylactic agents now. 7. Biventricular heart failure.? Undetermined etiology, but has now resolved.? Could hypothesize that this is COVID mycocarditis, arturo given his troponin elevations.? But it resolved way too early for that. 8. Hypotension.? Etiology not clear.? Could be sepsis (arturo with the WBC, fever, and lactate), could be PE (but RV is now normal, and she?s not severely hypoxemic anymore).? She is likely to be volume responsive, per the echo, so we?ll gently volume load her and see what happens. 9. Acute on chronic renal failure.? Undoubtedly 2? ATN.? Plan HD daily this week. 10. Metabolic encephalopathy.? Presumably 2? uremia.? We?ll see how she is after 2-3 days of HD. 11. ID.? Fever and marked leukocytosis.?? Recultured, so far negative.? Stool negative for CDiff.? With the high ferritin, we?ll check a blood smear.? Also check Legionella ag.? I?ll change the vanco and Zosyn to doxycycline. 12. Transaminase elevations coming down.? Suggestive of shock liver.? Checking hepatitis screen. 13. Hypernatremia.? Coming down with ? NS. 14. Nutrition:? Starting tube feeds today. Critical care time (includ mult min at the bedside, and addressing aflut; excluding procedures): ?90 min. Critical Care Time (minutes): 90 Physical Exam Vital Signs: Vital Signs: Last Vital Signs Temp 99.0 F 03/25/21 15:55 Pulse 100 03/25/21 15:55 Resp 27 H 03/25/21 15:55 BP 120/53 L 03/25/21 15:55 Pulse Ox 93 03/25/21 15:55 BMI result Body Mass Index 31.1 Objective Data Labs CBC & Chem 7: 02/15/22 05:38 03/25/21 05:38 Labs: Laboratory Results - last 24 hr 03/21/21 03/24/21 03/24/21 06:12 16:49 16:50 WBC RBC Hgb Hct MCV MCH MCHC RDW Plt Count MPV Immature Gran % (Auto) Neut % (Auto) Lymph % (Auto) Randolph % (Auto) Eos % (Auto) Baso % (Auto) Lymph # (Auto) Randolph # (Auto) Eos # (Auto) Baso # (Auto) Abs Immat Gran (auto) Absolute Neuts (auto) Absolute Nucleated RBC Nucleated RBC % (auto) Neutrophils % (Manual) Band Neutrophils % Lymphocytes % (Manual) Monocytes % (Manual) Metamyelocytes % Myelocytes % Abs Neuts (Manual) Lymphocytes # (Manual) Monocytes # (Manual) Metamyelocytes # Myelocytes # Nucleated RBCs Platelet Estimate Large Platelets Plt Morphology Comment RBC Morphology Macrocytosis Pappenheimer Bodies Target Cells Tear Drop Cells Ovalocytes O2 Saturation ABG pH at Pt Temp ABG pCO2 at Pt Temp ABG pO2 at Pt Temp ABG HCO3 ABG Base Excess (Actual) VBG pH VBG pCO2 VBG pO2 VBG HCO3 VBG O2 Saturation VBG Base Excess Sodium Potassium Chloride Carbon Dioxide Anion Gap BUN Creatinine Estim Creat Clear Calc Estimated GFR Random Glucose Lactic Acid 2.5 H* Lactic Acid F/U @ 2Hr Calcium Phosphorus Magnesium Ferritin Total Bilirubin AST ALT Alkaline Phosphatase Lactate Dehydrogenase C-Reactive Protein B-Natriuretic Peptide Total Protein Albumin Procalcitonin Urine Color YELLOW Urine Appearance HAZY Urine pH 5.0 Ur Specific [place] >= 1.030 H Urine Protein 2+ H Urine Glucose (UA) NEG Urine Ketones 15 Urine Blood NEG Urine Nitrite NEG Ur Leukocyte Esterase NEG Urine RBC 0 Urine WBC 1-4 Ur Squamous Epith Cells NONE Ur Renal Epithelial Cell 1+ Urine Bacteria TRACE Urine Yeast 4+ Stool Leukocytes, Qual C. difficile Tox B Gene SARS-CoV-2 IgG Ab Positive 03/24/21 03/25/21 03/25/21 19:32 05:38 05:38 WBC 49.4 H* RBC 3.90 L Hgb 11.4 L Hct 35.2 L MCV 90.3 MCH 29.2 MCHC 32.4 RDW 15.6 Plt Count 266 D MPV 11.2 Immature Gran % (Auto) Cancelled Neut % (Auto) Cancelled Lymph % (Auto) Cancelled Randolph % (Auto) Cancelled Eos % (Auto) Cancelled Baso % (Auto) Cancelled Lymph # (Auto) Cancelled Randolph # (Auto) Cancelled Eos # (Auto) Cancelled Baso # (Auto) Cancelled Abs Immat Gran (auto) Cancelled Absolute Neuts (auto) Cancelled Absolute Nucleated RBC 1.960 H Nucleated RBC % (auto) 4.0 H Neutrophils % (Manual) 84 H Band Neutrophils % 4 Lymphocytes % (Manual) 4 L Monocytes % (Manual) 2 Metamyelocytes % 5 Myelocytes % 1 Abs Neuts (Manual) 43.5 H Lymphocytes # (Manual) 2.0 Monocytes # (Manual) 1.0 Metamyelocytes # 2.5 Myelocytes # 0.5 Nucleated RBCs 2 H Platelet Estimate NORMAL Large Platelets PRESENT Plt Morphology Comment NOTED RBC Morphology NOTED Macrocytosis 1+ (5-14) Pappenheimer Bodies PRESENT Target Cells 1+ (5-14) Tear Drop Cells 1+ (0-2) Ovalocytes 1+ (5-14) O2 Saturation ABG pH at Pt Temp ABG pCO2 at Pt Temp ABG pO2 at Pt Temp ABG HCO3 ABG Base Excess (Actual) VBG pH VBG pCO2 VBG pO2 VBG HCO3 VBG O2 Saturation VBG Base Excess Sodium 147 H Potassium 4.9 Chloride 110 H Carbon Dioxide 12 L Anion Gap 30 H BUN 186 H Creatinine 8.94 H* Estim Creat Clear Calc 7.1 Estimated GFR 5 Random Glucose 109 Lactic Acid Lactic Acid F/U @ 2Hr 2.3 H* Calcium 8.0 L D Phosphorus 8.3 H Magnesium 2.2 Ferritin > 84766 H Total Bilirubin 1.3 H AST 3405 H ALT 3746 H Alkaline Phosphatase 56 Lactate Dehydrogenase 8138 H C-Reactive Protein 6.00 H B-Natriuretic Peptide Total Protein 5.9 L Albumin 2.8 L D Procalcitonin Urine Color Urine Appearance Urine pH Ur Specific [place] Urine Protein Urine Glucose (UA) Urine Ketones Urine Blood Urine Nitrite Ur Leukocyte Esterase Urine RBC Urine WBC Ur Squamous Epith Cells Ur Renal Epithelial Cell Urine Bacteria Urine Yeast Stool Leukocytes, Qual C. difficile Tox B Gene SARS-CoV-2 IgG Ab 03/25/21 03/25/21 03/25/21 05:38 05:38 05:38 WBC RBC Hgb Hct MCV MCH MCHC RDW Plt Count MPV Immature Gran % (Auto) Neut % (Auto) Lymph % (Auto) Randolph % (Auto) Eos % (Auto) Baso % (Auto) Lymph # (Auto) Randolph # (Auto) Eos # (Auto) Baso # (Auto) Abs Immat Gran (auto) Absolute Neuts (auto) Absolute Nucleated RBC Nucleated RBC % (auto) Neutrophils % (Manual) Band Neutrophils % Lymphocytes % (Manual) Monocytes % (Manual) Metamyelocytes % Myelocytes % Abs Neuts (Manual) Lymphocytes # (Manual) Monocytes # (Manual) Metamyelocytes # Myelocytes # Nucleated RBCs Platelet Estimate Large Platelets Plt Morphology Comment RBC Morphology Macrocytosis Pappenheimer Bodies Target Cells Tear Drop Cells Ovalocytes O2 Saturation ABG pH at Pt Temp ABG pCO2 at Pt Temp ABG pO2 at Pt Temp ABG HCO3 ABG Base Excess (Actual) VBG pH VBG pCO2 VBG pO2 VBG HCO3 VBG O2 Saturation VBG Base Excess Sodium Potassium Chloride Carbon Dioxide Anion Gap BUN Creatinine Estim Creat Clear Calc Estimated GFR Random Glucose Lactic Acid 1.4 Lactic Acid F/U @ 2Hr Calcium Phosphorus Magnesium Ferritin Total Bilirubin AST ALT Alkaline Phosphatase Lactate Dehydrogenase C-Reactive Protein B-Natriuretic Peptide 1024 H Total Protein Albumin Procalcitonin 10.41 Urine Color Urine Appearance Urine pH Ur Specific [place] Urine Protein Urine Glucose (UA) Urine Ketones Urine Blood Urine Nitrite Ur Leukocyte Esterase Urine RBC Urine WBC Ur Squamous Epith Cells Ur Renal Epithelial Cell Urine Bacteria Urine Yeast Stool Leukocytes, Qual C. difficile Tox B Gene SARS-CoV-2 IgG Ab 03/25/21 03/25/21 03/25/21 05:39 10:19 10:19 WBC RBC Hgb Hct MCV MCH MCHC RDW Plt Count MPV Immature Gran % (Auto) Neut % (Auto) Lymph % (Auto) Randolph % (Auto) Eos % (Auto) Baso % (Auto) Lymph # (Auto) Randolph # (Auto) Eos # (Auto) Baso # (Auto) Abs Immat Gran (auto) Absolute Neuts (auto) Absolute Nucleated RBC Nucleated RBC % (auto) Neutrophils % (Manual) Band Neutrophils % Lymphocytes % (Manual) Monocytes % (Manual) Metamyelocytes % Myelocytes % Abs Neuts (Manual) Lymphocytes # (Manual) Monocytes # (Manual) Metamyelocytes # Myelocytes # Nucleated RBCs Platelet Estimate Large Platelets Plt Morphology Comment RBC Morphology Macrocytosis Pappenheimer Bodies Target Cells Tear Drop Cells Ovalocytes O2 Saturation ABG pH at Pt Temp ABG pCO2 at Pt Temp ABG pO2 at Pt Temp ABG HCO3 ABG Base Excess (Actual) VBG pH 7.29 L VBG pCO2 23 VBG pO2 53 VBG HCO3 11 L VBG O2 Saturation 80.0 VBG Base Excess -12.7 Sodium Potassium Chloride Carbon Dioxide Anion Gap BUN Creatinine Estim Creat Clear Calc Estimated GFR Random Glucose Lactic Acid Lactic Acid F/U @ 2Hr Calcium Phosphorus Magnesium Ferritin Total Bilirubin AST ALT Alkaline Phosphatase Lactate Dehydrogenase C-Reactive Protein B-Natriuretic Peptide Total Protein Albumin Procalcitonin Urine Color Urine Appearance Urine pH Ur Specific [place] Urine Protein Urine Glucose (UA) Urine Ketones Urine Blood Urine Nitrite Ur Leukocyte Esterase Urine RBC Urine WBC Ur Squamous Epith Cells Ur Renal Epithelial Cell Urine Bacteria Urine Yeast Stool Leukocytes, Qual NEGATIVE C. difficile Tox B Gene NEGATIVE SARS-CoV-2 IgG Ab 03/25/21 03/25/21 03/25/21 12:52 13:07 15:05 WBC RBC Hgb Hct MCV MCH MCHC RDW Plt Count MPV Immature Gran % (Auto) Neut % (Auto) Lymph % (Auto) Randolph % (Auto) Eos % (Auto) Baso % (Auto) Lymph # (Auto) Randolph # (Auto) Eos # (Auto) Baso # (Auto) Abs Immat Gran (auto) Absolute Neuts (auto) Absolute Nucleated RBC Nucleated RBC % (auto) Neutrophils % (Manual) Band Neutrophils % Lymphocytes % (Manual) Monocytes % (Manual) Metamyelocytes % Myelocytes % Abs Neuts (Manual) Lymphocytes # (Manual) Monocytes # (Manual) Metamyelocytes # Myelocytes # Nucleated RBCs Platelet Estimate Large Platelets Plt Morphology Comment RBC Morphology Macrocytosis Pappenheimer Bodies Target Cells Tear Drop Cells Ovalocytes O2 Saturation 93.0 ABG pH at Pt Temp 7.41 ABG pCO2 at Pt Temp 23 L ABG pO2 at Pt Temp 76 L ABG HCO3 15 L ABG Base Excess (Actual) -7.0 VBG pH 7.41 VBG pCO2 29 VBG pO2 37 VBG HCO3 19 L VBG O2 Saturation 61.0 VBG Base Excess -3.9 Sodium Potassium Chloride Carbon Dioxide Anion Gap BUN Creatinine Estim Creat Clear Calc Estimated GFR Random Glucose Lactic Acid 4.8 H* Lactic Acid F/U @ 2Hr Calcium Phosphorus Magnesium Ferritin Total Bilirubin AST ALT Alkaline Phosphatase Lactate Dehydrogenase C-Reactive Protein B-Natriuretic Peptide Total Protein Albumin Procalcitonin Urine Color Urine Appearance Urine pH Ur Specific [place] Urine Protein Urine Glucose (UA) Urine Ketones Urine Blood Urine Nitrite Ur Leukocyte Esterase Urine RBC Urine WBC Ur Squamous Epith Cells Ur Renal Epithelial Cell Urine Bacteria Urine Yeast Stool Leukocytes, Qual C. difficile Tox B Gene SARS-CoV-2 IgG Ab Microbiology Microbiology Results: Microbiology 03/24/21 16:50 Urine Catheterized - Witt Catheter Urine Culture - Preliminary Culture in progress. 03/18/21 19:37 Blood - Venous Blood Culture - Final No growth after 5 days. 03/18/21 19:37 Blood - Venous Blood Culture - Final Quality Stroke Does the patient have a stroke diagnosis?: No VTE Prior VTE?: No VTE Risk Level:: Medical - moderate - high VTE Device Contraindication: Treatment Not Indicated VTE Drug Contraindication: N/A - Med Ordered Critical Care Time Critical Care Time (minutes): 90
[2021-03-25 16:06] LABS: Cancel Lactic Acid Canceled
[2021-03-25] MEDS: Amiodarone/Dextrose 150 MG/100 ML PLAST..BAG 600 MG IV ×2 (16:13→16:38)
[2021-03-25] MEDS: Famotidine/PF 20 MG/2 ML VIAL 10 MG IVPUSH (16:35)
[2021-03-25] MEDS: Heparin Sodium,Porcine 5,000 UNIT/ML VIAL 5000 UNIT SUBCUT ×2 (16:35→23:43)
[2021-03-25] MEDS: Albumin Human 25 % 50 ML 200 ML IV (17:49)
[2021-03-25] MEDS: methylPREDNISolone Sod Succ 125 MG/2 ML VIAL 60 MG IVPUSH (17:51)
[2021-03-25] MEDS: Doxycycline Hyclate 100 MG in 0.9 % Sodium Chloride 250 ML 166.67 MG IV (17:51)
--- NOTE | 2021-03-25 17:51 | W.PM.CCHP ---
Procedures Date of Service Date of Service: 03/25/21 Arterial Line Arterial Line Comments: PROCEDURE:? Insertion left radial arterial line. Indications:? Shock and acute respiratory failure. Anesthesia:? Local and propofol/fentanyl sedation. The left radial artery was identified by ultrasound.? Measured 3mm.? The wrist was then prepped and draped.? Local anesthesia was infiltrated.? The artery was cannulated under US guidance with a 22g angio. It was exchg over a wire for a Terumo 20g cannula, and hooked up to pressure, with a good waveform.? The catheter was then fixed in place with a biopatch and benzoin and a central line dressing.? The patient tolerated the procedure well with no complications.
--- NOTE | 2021-03-25 19:02 | PC.NURSE ---
pt recieved dialysis today, -700ml, left radial a line placed by , poor pleth, cuff BP consistently higher than A line pleth, line checked. OG tube placed at 1830 CXR s/p placement done, pending reading, ausculated positive placement. MRSA culture sent, urine leigonella sent, c diff neg. Renal U.S. and echo completed today. Pt required a max rate of 0.78mcg/kg/min levo and weaned to 0.5mcg/kg/min. Pt went into aflutter w/ varrying 2-3:1 conduction rate low 100s, adenosine 6mg given at 1600 per MD Emely at bedside, aflutter continued at 70bpm w/ same conduction ratio. Per MD Emely, 150mg amiodarone loading dose was given at 1613 and at 1625 converted to NSR temporarily. Gave second dose 150mg amiodarone load per MD Emely at 1638, temporarily converted to NSR, back to aflutter. Doxycycline added per Infectious disease, methylprednisolone 60mg given as well IVP. Bed locked and in lowest position.
[2021-03-25 20:36] LABS: ABG Refer to POC result
--- NOTE | 2021-03-25 20:48 | CONS_ITS ---
DATE OF SERVICE: 03/25/2021 REASON FOR CONSULTATION: I was called to see this patient to assist in management of renal failure. HISTORY OF PRESENT ILLNESS: Deirdre is well known to me. She is a 60-year-old woman with history of obesity, chronic kidney disease with multiple episodes of acute kidney injury. She has a history of chronic NSAID use in the past. She has a history of obstructive uropathy, status post right-sided hydronephrosis, and stent placement in 2013. She has had recurrent episodes of fluid overload. She has been treated with high dose of diuretics. Recently, her BUN has been in the low 100s and the serum creatinine was between 2.0 to 3.0 mg/dL. She was last seen in my office in October 2020. She has a history of anemia with significant iron deficiency. She has received IV iron replacement in the past along with Retacrit. Against, with this background, she came to the ER on March 12 and she was sent home. She came back to the ER on March 18, with shortness of breath and she has been admitted to the ICU. At the time of admission on March 18, her serum creatinine was 2.54 and BUN was 131. Over the last 1 week, there has been a progressive increase in the BUN and creatinine and as of today, BUN is 186 and creatinine is 8.9 mg/dL. This consult has been requested for the management of acute kidney injury and possible need for dialysis. She has also developed hypernatremia during this admission and she is currently on hypotonic fluids. She is hypotensive, requiring pressors. She did test positive for COVID-19 on March 18 as well. PAST MEDICAL HISTORY: Ongoing medical problems include history of obesity, stage 4 chronic kidney disease, hypertension, history of lung cancer, severe anemia, right hydronephrosis, status post stent placement in 2013, COPD, obstructive sleep apnea. FAMILY HISTORY: Significant for diabetes mellitus. No history of kidney disease. PAST SURGICAL HISTORY: Include colonoscopy, laparoscopy, tubal ligation, ureteral stent placement in 2013. SOCIAL HISTORY: History of smoking. No history of any alcohol abuse or drug abuse. All the information is obtained from the chart. The patient is unable to give history. ALLERGIES: CIPRO, SHELLFISH, AND NSAIDS. MEDICATIONS ON ADMISSION: Torsemide 40 mg b.i.d., metolazone 2.5 mg 2 times a week, diltiazem, clonazepam, methadone, isosorbide. REVIEW OF SYSTEMS: Not obtainable from the patient due to her medical condition. She is intubated. All the information is obtained from the chart and from the team. PHYSICAL EXAMINATION: GENERAL: Deirdre is a middle-aged woman. She is obese, intubated, not in acute distress. She is on pressors. NECK: Supple. LUNGS: Bilateral rhonchi. HEART: S1, S2 heard. No gallop. ABDOMEN: Obese, soft, nontender. EXTREMITIES: With trace edema. No rash. No clubbing. VITAL SIGNS: Blood pressure today was 109/51, pulse is 88 per minute, temperature 100.6. LABORATORY DATA: Labs as of 03/25, AST 3405, ALT 3746, LDH of 8138, albumin 2.8, sodium 147, potassium 4.9, BUN 186, creatinine 8.94. WBC 14.4, hemoglobin 11.4, platelets 266. Chest x-ray showed increased airspace opacity with small pleural effusion. CT chest on March 19, without contrast showed dense opacities in the lower lobes with predominant emphysema. PROBLEMS: 1. Acute kidney injury superimposed on chronic kidney disease. 2. Respiratory failure/COVID-19 infection. 3. Respiratory acidosis. Prior to this, she had combination of respiratory alkalosis with metabolic compensation. 4. Encephalopathy. The acute kidney injury at this point is multifactorial. Given the history of obstruction in the past with a stent placement, we certainly have to rule out obstructive uropathy. Acute tubular injury is a possibility as well. Acute glomerular nephritis cannot be ruled out yet. She has been on vancomycin with elevated vancomycin levels. Therefore, vancomycin toxicity is also a possibility. RECOMMENDATION: Proceed with dialysis in view of encephalopathy. We will dialyze her for the next 3 days in a row, start up with low blood flow and I would certainly use mannitol. In the meantime, we will continue with the workup for acute kidney injury, including imaging to rule out obstructive uropathy. Check vancomycin level and adjust dose accordingly. Continue to avoid nephrotoxic agents. Check urine for protein, creatinine. Further workup will be based on the above baseline investigations. We will follow closely with the team. Fermin Muhammad MD BPA/MODL / [id number]
--- NOTE | 2021-03-25 23:09 | CA_ITS ---
Transthoracic Echocardiogram Patient (Last, First, Middle): Deirdre Galeas L Gender: Female Date of : 1960 Age: 60 Procedure Date: 03/25/2021 Procedure Type: Transthoracic Echocardiogram Location: ICU Height: 162.56 cm Weight: 81.65 kg BSA: 1.87 m2 Heart Rate: bpm BP: 101 / 57 mmHg General Sales Manager: ROMAN Referring MD: Deacon Han MD Symptoms: f/u right heart size, LV contractility, IVC Study Quality: Fair Conclusions: - 1. Low normal LV systolic function with LVEF of 50-55%. Regional wall motion abnormality is difficult to assess on this study 2. Normal RV size and systolic function Findings Left Ventricle Normal left ventricular cavity size. The left ventricular systolic function is low normal. The visually estimated ejection fraction is between 50-55%. Regional wall motion abnormalities can not be excluded due to suboptimal endocardial definition. Right Ventricle Normal right ventricular cavity size and systolic function. Venous The inferior vena cava is normal in size and collapses greater than 50% with inspiration. Pericardium/Pleural There is no evidence of pericardial effusion. Prior Study Comparison Changes noted compared to prior study dated: 03/19/2021. LV and RV systolic function have improved. RV size is within normal limits Measurements Mitral Valve MV Pk E: 0.63 MV PK A: 0.85 MV Decel Time: 238.00 E/A: 0.70 E'Lateral: 11.10 E'Medial: 6.42 E/E' Med: 9.80 E/E' Lat: 5.70 PHT: 70.00 MVA PHT: 3.14 Decel Fentress: 2.66 Diastolic Function MV Pk E: 0.63 MV Pk A: 0.85 E/A: 0.70 E'Medial: 6.42 E/E' Med: 9.80 E' Laterial: 11.10 E/E' Lat: 5.70 Right Ventricle TAPSE (mm): 22.00 TVS' Keenan: 16.00 Tricuspid Valve TR Pk Keenan: 2.38 TR Pk Grad: 23.00 Updated in Other Vendor System with Status of Final Kd Santos MD electronically signed on 03/25/2021 10:44:08 AM with status of Final
[2021-03-26] VITALS (33 sets, daily range): BP systolic 92–143; BP diastolic 47–94; PULSE 74–97; RESP 14–28; TEMP 34–37.6; O2SAT 95–100; BMI 35.6
--- NOTE | 2021-03-26 | ECG_ITS ---
Test Reason : Elevated troponin; r/o ischemia Blood Pressure : / mmHG Vent. Rate : 088 BPM Atrial Rate : 088 BPM P-R Int : 152 ms QRS Dur : 074 ms QT Int : 372 ms P-R-T Axes : 055 050 056 degrees QTc Int : 450 ms Normal sinus rhythm T wave abnormality, consider anterolateral ischemia Abnormal ECG When compared with ECG of 19-MAR-2021 02:47, Criteria for Lateral infarct are no longer Present ST no longer depressed in Anterolateral leads Nonspecific T wave abnormality, worse in Inferior leads T wave inversion now evident in Anterior leads T wave inversion less evident in Lateral leads QT has shortened Referred By: Deacon Han Electronically Signed By:THERESA BRENNAN MD
[2021-03-26] MEDS: propofoL 1,000 MG/100 ML VIAL 9.6 MG IVCONT (00:01)
[2021-03-26] MEDS: methylPREDNISolone Sod Succ 125 MG/2 ML VIAL 60 MG IVPUSH ×3 (00:02→15:26)
[2021-03-26 00:09] LABS: MRSA Nasal PCR POSITIVE (Negative); SA Nasal PCR POSITIVE (Negative)
[2021-03-26] MEDS: 0.9 % Sodium Chloride 500 ML 1000 ML IV (01:00)
[2021-03-26] MEDS: Sodium Chloride 0.45 % 1,000 ML 80 ML IVCONT ×2 (02:10→14:05)
[2021-03-26] MEDS: fentaNYL citrate/NS 1,000 MCG/100 ML PLAST..BAG 15 MCG IVCONT ×4 (03:07→21:45)
[2021-03-26 03:48] LABS: HBc Num1 0.13 S/CO (0.00-0.79); HIV AB/AG Nonreactive (Nonreactive); HIV Num 1 0.09 S/CO (0.00-0.99); Hepatitis A Antibody IgM 0.39 Index (0-0.79); Hepatitis B Core Antibody Nonreactive (Nonreactive); ~Hepatitis A Antibody IgM Nonreactive (Nonreactive); ~Hepatitis B Surface Antibody NONREACTIVE (Nonreactive)
[2021-03-26 04:00] LABS: HBsAGNum1 0.22 S/CO (0.00-0.99); Hepatitis B Surface Antigen Negative (Negative); ~HepC Num1 0.26 S/CO (0.00-0.79); ~Hepatitis C Antibody Nonreactive (Nonreactive)
[2021-03-26 05:20] LABS: VBG Base Excess -10.3 mmol/L; VBG HCO3 13 mmol/L (22-26); VBG pCO2 24 mmHg; VBG pH 7.34 (7.32-7.43); VBG pO2 48 mmHg
[2021-03-26 05:22] LABS: Venous Blood Gas Refer to POC result
[2021-03-26 05:23] LABS: Hematocrit 32.2 % (37.0-47.0); Hemoglobin 10.4 g/dl (12.0-16.0); Mean Corpuscular HGB Conc 32.3 g/dl (31.0-35.0); Mean Corpuscular Hemoglobin 28.5 pg (27.0-33.0); Mean Corpuscular Volume 88.2 fL (80.0-98.0); Mean Platelet Volume 11.9 fL (9.4-12.3); Platelet Count 194 X10*3/uL (160-400); Red Blood Count 3.65 X10*6/uL (4.20-5.50); Red Cell Distribution Width 14.7 % (11.0-16.0)
[2021-03-26 05:25] LABS: NRBC Pct Auto 3.5 /100WBC (0.0-0.2)
[2021-03-26 05:27] LABS: White Blood Count 48.1 X10*3/uL (4.8-10.8)
[2021-03-26 05:34] LABS: D Dimer High Sensitivity 2662 NG/ML; Lactic Acid 1.2 mmol/L (0.5-2.0)
[2021-03-26 05:39] LABS: Alanine Aminotransferase 3221 U/L (0-31); Alkaline Phosphatase 76 U/L (39-117); Anion Gap 26 (12-20); Aspartate Amino Transferase 1765 U/L (5-31); Bilirubin Total 1.5 mg/dL (0.0-1.0); Blood Urea Nitrogen 115 mg/dL (9-16); Calcium 7.9 mg/dL (8.4-10.2); Carbon Dioxide 16 mmol/L (22-29); Chloride 103 mmol/L (96-108); Estimated Glomerular Filt Rate 7; Glucose Random 202 mg/dL (60-115); Magnesium 1.9 mg/dL (1.6-2.6); Phosphorus 10.1 mg/dL (2.7-4.5); Potassium 4.7 mmol/L (3.3-5.1); Sodium 140 mmol/L (135-145); Total Protein 5.4 g/dL (6.5-8.0)
[2021-03-26 05:43] LABS: Acanthocytes 1+ (0-2) /OIF; Band Neutrophils Percent 2 % (3-5); Burr Cells 1+ (0-2) /OIF; Lymphocytes Absolute Manual 1.4 X10*3/uL (1.2-4.9); Lymphocytes Percent Manual 3 % (20-40); Macrocytosis 1+ (5-14) /OIF; Metamyelocytes Absolute 0.5 X10*3/uL; Metamyelocytes Percent 1 %; Neutrophils Absolute Manual 46.2 X10*3/uL (2.0-8.3); Neutrophils Percent Manual 94 % (45-73); Nucleated Red Blood Cells 3 /100WBC (0-0); Platelet Estimate NORMAL (NORMAL); RBC Morphology NOTED; Tear Drop Cells 1+ (0-2) /OIF
[2021-03-26 05:44] LABS: Pappenheimer Bodies PRESENT; Smudge Cells PRESENT
[2021-03-26 05:55] LABS: Procalcitonin 12.68 ng/mL
[2021-03-26 06:08] LABS: Ferritin > 30000 ng/mL (10-250)
--- NOTE | 2021-03-26 06:13 | MHC.CDI.CONC ---
CDI Concurrent Query Documentation Clarification: PHYSICIAN'S DOCUMENTATION REQUEST Date of Query: 03/26/21612 Patient Name: Deirdre Galeas Admit Date: 03/18/21 Dear Doctor, A review of the medical record indicates additional documentation may be needed. Please review below and update the documentation accordingly. Risk Factors/Clinical Indicators/Treatments ICU Critical care procedure 03/24 - Central line placement - Acute respiratory failure - Shock. ICU 03/24 - Assessment/plan: Hypotensive - vasopressors - could be Septic, unclear etiology. Sepsis can't be rule out. WBC 49 H Temp 102 LA 2.5/4.8 RR 24 Vancomycin/Zosyn/intubated on vent. Please clarify which of the following most accurately describes the above abnormalities: Shock due to: Septic shock Sepsis- Treating, rule out, resolved etc. Systemic manifestations of infection, with 2 or more SIRS criteria which include: -Fever > 100.4F or hypothermia < 96.8 F -Leukocytosis - WBC > 12,000 or leukopenia, WBC < 4,000 or > 10% bands -Tachycardia > 90 beats/minute -Tachypnea - RR > 20 breaths/minute or PaCO2 < 32mmHg Other Unable to determine Use of terms such as suspected, likely, concern for, or probable (associated with a specific diagnosis that is being evaluated, monitored, or treated as if it exists) are acceptable and can be coded in the inpatient setting, when documented at the time of discharge. Thank you, Brandy Castro [facility]. CDIS Extension: [id number] Please use your independent medical judgment in providing your response. THIS QUERY IS PART OF THE PERMANENT MEDICAL RECORD Provider Response: Other Other Diagnosis: Shock, unable to determine etiology
[2021-03-26] MEDS: propofoL 1,000 MG/100 ML VIAL 14.4 MG IVCONT ×4 (06:54→23:51)
[2021-03-26] MEDS: Doxycycline Hyclate 100 MG in 0.9 % Sodium Chloride 250 ML 166.67 MG IV ×2 (06:55→15:27)
[2021-03-26] MEDS: Albumin Human 25 % 50 ML 100 ML IV (06:55)
--- NOTE | 2021-03-26 07:30 | MHC.PIE ---
Patient having copious amounts of diarrhea this am. Provider notified, Flexi seal ordered and inserted. Patient tolerated well . Will continue to monitor.
[2021-03-26] MEDS: Chlorhexidine Gluc Oral Rinse 15 ML MOUTHWASH BUCCAL ×3 (08:31→19:28)
[2021-03-26] MEDS: dilTIAZem HCL 125 MG in 0.9 % Sodium Chloride 100 ML IVCONT (08:31)
[2021-03-26] MEDS: Heparin Sodium,Porcine 5,000 UNIT/ML VIAL 5000 UNIT SUBCUT (08:31)
[2021-03-26 08:45] LABS: Platelet Morphology Comment NORMAL
--- NOTE | 2021-03-26 09:16 | MHC.CLN ---
F/U PT RECEIVED HD PT STARTED ON NEPRO AT MAX GOAL RATE 20ML/HR WITH 240ML FREE WATER FLUSHES Q 6 HOURS PROVIDES 864KCALS (1244KCALS WITH SEDATION; 23KCALS/KG BASED ON IBW), 39G PROTEIN (.7G/KG), 1309CC TOTAL FREE WATER FROM FORMULA AND FLUSHES (24ML/KG BASED ON IBW) MONITOR TOLERANCE, RESIDUALS AND LYTES
--- NOTE | 2021-03-26 09:27 | P.PNNP_ITS ---
Subjective Subjective Date of Service: 03/26/21 Interval history: Events noted Had First HD on 03/25 Tolerated well Physical Exam Vital Signs: Vital Signs: Last Vital Signs Temp 97.9 F 03/26/21 09:00 Pulse 78 03/26/21 09:00 Resp 20 03/26/21 09:00 BP 110/51 L 03/26/21 09:00 Pulse Ox 97 03/26/21 09:00 BMI result Body Mass Index 35.6 Const: Other: intubated On pressors Lungs with Rhonchi Hrt : No gallop or rub Abd Obese Soft NS no asterexis General: ill appearing Objective Data Labs CBC & Chem 7: 03/26/21 05:10 03/26/21 05:10 Labs: Laboratory Results - last 24 hr 03/25/21 03/25/21 03/25/21 10:19 10:19 12:52 WBC RBC Hgb Hct MCV MCH MCHC RDW Plt Count MPV Immature Gran % (Auto) Neut % (Auto) Lymph % (Auto) [place] % (Auto) Eos % (Auto) Baso % (Auto) Lymph # (Auto) [place] # (Auto) Eos # (Auto) Baso # (Auto) Abs Immat Gran (auto) Absolute Neuts (auto) Absolute Nucleated RBC Nucleated RBC % (auto) Neutrophils % (Manual) Band Neutrophils % Lymphocytes % (Manual) Metamyelocytes % Abs Neuts (Manual) Lymphocytes # (Manual) Metamyelocytes # Nucleated RBCs Smudge Cells Platelet Estimate Plt Morphology Comment RBC Morphology Macrocytosis Pappenheimer Bodies Tear Drop Cells [place] Cells Acanthocytes (Spur) D-Dimer High Sensitivty O2 Saturation ABG pH at Pt Temp ABG pH (Temp Correct) ABG pCO2 at Pt Temp ABG pCO2 (Temp Corrct ABG pO2 at Pt Temp ABG pO2 (Temp Correct ABG HCO3 ABG Base Excess (Actual) VBG pH 7.41 VBG pCO2 29 VBG pO2 37 VBG HCO3 19 L VBG O2 Saturation 61.0 VBG Base Excess -3.9 Sodium Potassium Chloride Carbon Dioxide Anion Gap BUN Creatinine Estim Creat Clear Calc Estimated GFR Random Glucose Lactic Acid Calcium Phosphorus Magnesium Ferritin Total Bilirubin AST ALT Alkaline Phosphatase Troponin I High Sens Total Protein Albumin Procalcitonin Nasal Screen MRSA (PCR) Nasal S. aureus Screen Nasal MRSA/S.aureus Interp Stool Leukocytes, Qual NEGATIVE C. difficile Tox B Gene NEGATIVE Hepatitis A IgM Ab Hep Bs Antigen Hep Bs Antibody Hep B Core Total Ab Hepatitis C Ab (EIA) HIV 1&2 Ab/P24 Ag 4thGn 03/25/21 03/25/21 03/25/21 13:07 15:05 15:05 WBC RBC Hgb Hct MCV MCH MCHC RDW Plt Count MPV Immature Gran % (Auto) Neut % (Auto) Lymph % (Auto) [place] % (Auto) Eos % (Auto) Baso % (Auto) Lymph # (Auto) [place] # (Auto) Eos # (Auto) Baso # (Auto) Abs Immat Gran (auto) Absolute Neuts (auto) Absolute Nucleated RBC Nucleated RBC % (auto) Neutrophils % (Manual) Band Neutrophils % Lymphocytes % (Manual) Metamyelocytes % Abs Neuts (Manual) Lymphocytes # (Manual) Metamyelocytes # Nucleated RBCs Smudge Cells Platelet Estimate Plt Morphology Comment RBC Morphology Macrocytosis Pappenheimer Bodies Tear Drop Cells Abi Cells Acanthocytes (Spur) D-Dimer High Sensitivty O2 Saturation Cancelled 93.0 ABG pH at Pt Temp Cancelled 7.41 ABG pH (Temp Correct) Cancelled ABG pCO2 at Pt Temp Cancelled 23 L ABG pCO2 (Temp Corrct Cancelled ABG pO2 at Pt Temp Cancelled 76 L ABG pO2 (Temp Correct Cancelled ABG HCO3 Cancelled 15 L ABG Base Excess (Actual) Cancelled -7.0 VBG pH VBG pCO2 VBG pO2 VBG HCO3 VBG O2 Saturation VBG Base Excess Sodium Potassium Chloride Carbon Dioxide Anion Gap BUN Creatinine Estim Creat Clear Calc Estimated GFR Random Glucose Lactic Acid 4.8 H* Calcium Phosphorus Magnesium Ferritin Total Bilirubin AST ALT Alkaline Phosphatase Troponin I High Sens Total Protein Albumin Procalcitonin Nasal Screen MRSA (PCR) Nasal S. aureus Screen Nasal MRSA/S.aureus Interp Stool Leukocytes, Qual C. difficile Tox B Gene Hepatitis A IgM Ab Hep Bs Antigen Hep Bs Antibody Hep B Core Total Ab Hepatitis C Ab (EIA) HIV 1&2 Ab/P24 Ag 4thGn 03/25/21 03/25/21 03/26/21 16:00 18:18 05:10 WBC 48.1 H* RBC 3.65 L Hgb 10.4 L Hct 32.2 L MCV 88.2 MCH 28.5 MCHC 32.3 RDW 14.7 Plt Count 194 D MPV 11.9 Immature Gran % (Auto) Cancelled Neut % (Auto) Cancelled Lymph % (Auto) Cancelled [place] % (Auto) Cancelled Eos % (Auto) Cancelled Baso % (Auto) Cancelled Lymph # (Auto) Cancelled [place] # (Auto) Cancelled Eos # (Auto) Cancelled Baso # (Auto) Cancelled Abs Immat Gran (auto) Cancelled Absolute Neuts (auto) Cancelled Absolute Nucleated RBC 1.690 H Nucleated RBC % (auto) 3.5 H Neutrophils % (Manual) 94 H Band Neutrophils % 2 L Lymphocytes % (Manual) 3 L Metamyelocytes % 1 Abs Neuts (Manual) 46.2 H Lymphocytes # (Manual) 1.4 Metamyelocytes # 0.5 Nucleated RBCs 3 H Smudge Cells PRESENT Platelet Estimate NORMAL Plt Morphology Comment NORMAL RBC Morphology NOTED Macrocytosis 1+ (5-14) Pappenheimer Bodies PRESENT Tear Drop Cells 1+ (0-2) Abi Cells 1+ (0-2) Acanthocytes (Spur) 1+ (0-2) D-Dimer High Sensitivty O2 Saturation ABG pH at Pt Temp ABG pH (Temp Correct) ABG pCO2 at Pt Temp ABG pCO2 (Temp Corrct ABG pO2 at Pt Temp ABG pO2 (Temp Correct ABG HCO3 ABG Base Excess (Actual) VBG pH VBG pCO2 VBG pO2 VBG HCO3 VBG O2 Saturation VBG Base Excess Sodium Potassium Chloride Carbon Dioxide Anion Gap BUN Creatinine Estim Creat Clear Calc Estimated GFR Random Glucose Lactic Acid Calcium Phosphorus Magnesium Ferritin Total Bilirubin AST ALT Alkaline Phosphatase Troponin I High Sens Total Protein Albumin Procalcitonin Nasal Screen MRSA (PCR) POSITIVE A Nasal S. aureus Screen POSITIVE A Nasal MRSA/S.aureus Interp SEE NOTE Stool Leukocytes, Qual C. difficile Tox B Gene Hepatitis A IgM Ab Nonreactive Hep Bs Antigen Negative Hep Bs Antibody NONREACTIVE Hep B Core Total Ab Nonreactive Hepatitis C Ab (EIA) Nonreactive HIV 1&2 Ab/P24 Ag 4thGn Nonreactive 03/26/21 03/26/21 03/26/21 05:10 05:10 05:10 WBC RBC Hgb Hct MCV MCH MCHC RDW Plt Count MPV Immature Gran % (Auto) Neut % (Auto) Lymph % (Auto) [place] % (Auto) Eos % (Auto) Baso % (Auto) Lymph # (Auto) [place] # (Auto) Eos # (Auto) Baso # (Auto) Abs Immat Gran (auto) Absolute Neuts (auto) Absolute Nucleated RBC Nucleated RBC % (auto) Neutrophils % (Manual) Band Neutrophils % Lymphocytes % (Manual) Metamyelocytes % Abs Neuts (Manual) Lymphocytes # (Manual) Metamyelocytes # Nucleated RBCs Smudge Cells Platelet Estimate Plt Morphology Comment RBC Morphology Macrocytosis Pappenheimer Bodies Tear Drop Cells [place] Cells Acanthocytes (Spur) D-Dimer High Sensitivty 2662 O2 Saturation ABG pH at Pt Temp ABG pH (Temp Correct) ABG pCO2 at Pt Temp ABG pCO2 (Temp Corrct ABG pO2 at Pt Temp ABG pO2 (Temp Correct ABG HCO3 ABG Base Excess (Actual) VBG pH VBG pCO2 VBG pO2 VBG HCO3 VBG O2 Saturation VBG Base Excess Sodium 140 Potassium 4.7 Chloride 103 Carbon Dioxide 16 L Anion Gap 26 H BUN 115 H D Creatinine 6.30 H* Estim Creat Clear Calc 10.0 Estimated GFR 7 Random Glucose 202 H Lactic Acid 1.2 Calcium 7.9 L Phosphorus 10.1 H Magnesium 1.9 Ferritin > 31066 H Total Bilirubin 1.5 H AST 1765 H ALT 3221 H Alkaline Phosphatase 76 D Troponin I High Sens Total Protein 5.4 L Albumin 3.0 L Procalcitonin Nasal Screen MRSA (PCR) Nasal S. aureus Screen Nasal MRSA/S.aureus Interp Stool Leukocytes, Qual C. difficile Tox B Gene Hepatitis A IgM Ab Hep Bs Antigen Hep Bs Antibody Hep B Core Total Ab Hepatitis C Ab (EIA) HIV 1&2 Ab/P24 Ag 4thGn 03/26/21 03/26/21 03/26/21 05:10 05:10 05:12 WBC RBC Hgb Hct MCV MCH MCHC RDW Plt Count MPV Immature Gran % (Auto) Neut % (Auto) Lymph % (Auto) [place] % (Auto) Eos % (Auto) Baso % (Auto) Lymph # (Auto) [place] # (Auto) Eos # (Auto) Baso # (Auto) Abs Immat Gran (auto) Absolute Neuts (auto) Absolute Nucleated RBC Nucleated RBC % (auto) Neutrophils % (Manual) Band Neutrophils % Lymphocytes % (Manual) Metamyelocytes % Abs Neuts (Manual) Lymphocytes # (Manual) Metamyelocytes # Nucleated RBCs Smudge Cells Platelet Estimate Plt Morphology Comment RBC Morphology Macrocytosis Pappenheimer Bodies Tear Drop Cells [place] Cells Acanthocytes (Spur) D-Dimer High Sensitivty O2 Saturation ABG pH at Pt Temp ABG pH (Temp Correct) ABG pCO2 at Pt Temp ABG pCO2 (Temp Corrct ABG pO2 at Pt Temp ABG pO2 (Temp Correct ABG HCO3 ABG Base Excess (Actual) VBG pH 7.34 VBG pCO2 24 VBG pO2 48 VBG HCO3 13 L VBG O2 Saturation 76.0 VBG Base Excess -10.3 Sodium Potassium Chloride Carbon Dioxide Anion Gap BUN Creatinine Estim Creat Clear Calc Estimated GFR Random Glucose Lactic Acid Calcium Phosphorus Magnesium Ferritin Total Bilirubin AST ALT Alkaline Phosphatase Troponin I High Sens 1709.5 H* D Total Protein Albumin Procalcitonin 12.68 Nasal Screen MRSA (PCR) Nasal S. aureus Screen Nasal MRSA/S.aureus Interp Stool Leukocytes, Qual C. difficile Tox B Gene Hepatitis A IgM Ab Hep Bs Antigen Hep Bs Antibody Hep B Core Total Ab Hepatitis C Ab (EIA) HIV 1&2 Ab/P24 Ag 4thGn Microbiology Microbiology Results: Microbiology 03/24/21 16:49 Blood - Central Line Blood Culture - Preliminary No growth after 24 hours. 03/24/21 16:49 Blood - Central Line Blood Culture - Preliminary No growth after 24 hours. 03/24/21 16:50 Urine Catheterized - Witt Catheter Urine Culture - Preliminary Culture in progress. 03/18/21 19:37 Blood - Venous Blood Culture - Final No growth after 5 days. 03/18/21 19:37 Blood - Venous Blood Culture - Final Procedures Date of Service Date of Service: 03/26/21 Assessment & Plan Assessment and plan (1) JOAN (acute kidney injury): Status: Acute Plan JOAN superimposed on CKD /Uremia No obstruction by sonogram No proteinuria/Hematuria- AGN/AIN seem unlikely Probably has ATN- multifatorail Shock COVID -19 Resp failure Resp ALkalosis with Met acidosis Leukocytosis/Anemia Severely elevated Ferritin - > 47736 Shock Liver Plan HD again today to correct uremia 3 hr with Mannitol No fluid removal Adminsiter 500 CCNS during HD Discussed with team Shall follow closely Time Spent With Patient Time: Total time spent is greater than 50% in coordination of care (as documented) at patient's floor/unit and/or counseling patient: Time with patient: 15 - 24 minutes Progress Note: Quality Stroke Does the patient have a stroke diagnosis?: No
[2021-03-26] MEDS: Pantoprazole Sodium 40 MG/10 ML VIAL 80 MG IVPUSH (11:48)
--- NOTE | 2021-03-26 11:55 | P.CNGI_ITS ---
History of Present Illness Data of Consult Service Date: 03/26/21 Requesting physician: Deacon Han Primary Care Provider: Valerie Castano MD HPI Reason for consult: melena 60 yr old f w hx of OA, COPd on 2 L O2, lung cancer (palliative XRT), CKD and colon polyp being assessed for melena no Hx from pt--intubated She was admitted with worsening mental state with c/o cough and sputum, and developed acute respiratory distress requiring intubation and now undergoing Ix for this last few days. Was on heaprin in case of PTE with raised trops. Last few days noted to have melena with dropping HGB from 14--->10 g/dl. She is also covid Ab pos. she was briefly extubated but had to be reintubated again for respiratory distress. She has been receiving treatment for biventricular heart failure and pneumonia, awaiting V/Q scan for PTE. Review of Systems Review of Systems: Yes unobtainable due to endotracheal tube PMFSH Past Medical History Medical History Anemia in chronic kidney disease Anxiety and depression Breast cancer screening by mammogram COPD (chronic obstructive pulmonary disease) COVID-19 vaccine series completed Dyslipidemia History of claustrophobia History of seizure HTN (hypertension) Hx of cardiac arrest Infected lip laceration Kidney disease Lung cancer Methadone maintenance therapy patient Multiple fractures of ribs O2 dependent LEO (obstructive sleep apnea) Respiratory failure Restrictive lung disease Tubular adenoma of colon Vitamin D deficiency Family History Family History Father Diabetes mellitus Mother Depression Mental health disorder Maternal Grandfather Colon cancer Sister No problems noted. Son No problems noted. Daughter No problems noted. Daughter No problems noted. Family history: reviewed and not pertinent Surgical History Surgical History H/O colonoscopy History of hand surgery History of laparoscopy History of tubal ligation S/P ureteral stent placement Social History Social History Household Members: Spouse Housing: House Are you a primary direct care provider to a significant other at home: No Do you presently have visiting nurse or other home services: Yes Unable to assess alcohol history related to: Unable to respond Alcohol intake: never Patient Tobacco Use Status: Former Tobacco user Quit Date: 2011 Tobacco use type: Cigarette Years Smoked: 25 yrs Use of substances other than those prescribed or required for medical reasons: Unable to respond Currently Displaying Signs/Symptoms of Drug Intoxication Withdrawal: No Advance Directives: Yes Advance Directives Information Provided: No Advance Directives on File: Yes Advance Directives Date on File: 03/21/21 Recently lost weight without trying: Unsure Nutrition Risks: No Nutritional Risk Patient : No service: No Current occupational status: disabled Meds Allergies Allergy/AdvReac Type Severity Reaction Status Date / Time ciprofloxacin [From Cipro] Allergy Unknown HIVES/SWELLING, Verified 02/20/21 15:09 THROAT CLOSES shellfish derived Allergy Unknown UNKNOWN Verified 02/20/21 15:09 [SHELLFISH DERIVED] NSAIDS AdvReac Unknown avoid cue Verified 02/20/21 15:09 to kidney disease Active Medications: Current Medications Acetaminophen (Acetaminophen Supp 650 Mg Supp.Rect) 650 mg OR Q6H PRN PRN Reason: Fever >101 Last Admin: 03/25/21 07:59 Dose: 650 mg Documented by: Chlorhexidine Gluconate (Chlorhexidine Gluc Oral Rinse 15 Ml Mouthwash) 15 ml BUCCAL TID [facility] Last Admin: 03/26/21 08:31 Dose: 15 ml Documented by: Famotidine (Famotidine/Pf 20 Mg/2 Ml Vial) 10 mg IVPUSH DAILY@1700 ANALISA Last Admin: 03/25/21 16:35 Dose: 10 mg Documented by: Heparin Sodium (Porcine) (Heparin Sodium,Porcine 5,000 Unit/Ml Vial) 5,000 unit SUBCUT Q8H ANALISA Last Admin: 03/26/21 08:31 Dose: 5,000 unit Documented by: Fentanyl (Sublimaze/Ns) 1,000 mcg in 100 mls @ 0 mls/hr IVCONT .Q0M [facility]; Protocol Last Admin: 03/26/21 09:14 Dose: 150 mcg/hr, 15 mls/hr Documented by: Norepinephrine Bitartrate (Levophed) 8 mg in 250 mls @ 0 mls/hr IVCONT .Q0M [facility]; Protocol Last Admin: 03/26/21 08:31 Dose: 0.25 mcg/kg/min, 40.73 mls/hr Documented by: Diltiazem HCl 125 mg/ Sodium (Chloride) 125 mls @ 0 mls/hr IVCONT .Q0M [facility]; Protocol Last Admin: 03/26/21 08:31 Dose: 5 mg/hr, 5 mls/hr Documented by: Propofol (Diprivan) 1,000 mg in 100 mls @ 0 mls/hr IVCONT .Q0M ANALISA; Protocol Last Admin: 03/26/21 11:33 Dose: 30 mcg/kg/min, 14.4 mls/hr Documented by: Sodium Chloride () 1,000 mls @ 80 mls/hr IVCONT .[id number] [facility] Last Admin: 03/26/21 02:10 Dose: 80 mls/hr Documented by: Doxycycline Hyclate 100 mg/ (Sodium Chloride) 250 mls @ 166.67 mls/hr IV Q12H [facility] Last Infusion: 03/26/21 08:34 Dose: Infused Documented by: Pantoprazole Sodium 80 mg/ (Sodium Chloride) 100 mls @ 10 mls/hr IV .Q10H [facility] Lorazepam (Lorazepam 2 Mg/Ml Vial) 0.5 mg IVPUSH Q6H PRN PRN Reason: Anxiety Last Admin: 03/22/21 19:25 Dose: 0.5 mg Documented by: Methylprednisolone Sodium Succinate (Methylprednisolone Sod Succ 125 Mg/2 Ml Vial) 60 mg IVPUSH Q8H [facility] Last Admin: 03/26/21 08:31 Dose: 60 mg Documented by: Naloxone HCl (Naloxone Hcl 0.4 Mg/Ml Vial) 0.2 mg IVPUSH Q2M PRN PRN Reason: Excessive sedation or RR < 8 Pharmacy Consult (Consult Rx Vancomycin Dosing) 1 each MISCELLANE DAILY PRN PRN Reason: Consult order Home Medications Medication Instructions Recorded Confirmed Last Taken Type albuterol sulfate 2.5 mg INHALATION Q6H PRN 04/25/20 10/15/20 10/09/20 History clonazepam 1 mg tablet (Klonopin) 1 mg PO TID 04/25/20 03/18/21 10/09/20 History diltiazem HCl 120 mg 1 cap PO DAILY 04/25/20 03/18/21 Unknown History capsule,extended release 24 hr hydroxyzine pamoate 50 mg capsule 50 mg PO BEDTIME PRN 04/25/20 03/18/21 Unknown History metolazone 2.5 mg tablet 2.5 mg PO 2XW 07/24/20 03/18/21 Unknown History torsemide 20 mg tablet 40 mg PO BID tab 08/03/20 03/18/21 Unknown History methadone 10 mg/mL oral concentrate 73 mg PO DAILY ml 09/04/20 10/15/20 Unknown History isosorbide mononitrate 60 mg 60 mg PO DAILY 03/18/21 03/18/21 Unknown History tablet,extended release 24 hr Physical Exam Vital Signs: Vital Signs: Last Vital Signs Temp 98.6 F 03/26/21 11:00 Pulse 81 03/26/21 11:00 Resp 20 03/26/21 11:00 BP 114/52 L 03/26/21 11:00 Pulse Ox 99 03/26/21 11:00 BMI result Body Mass Index 35.6 EXAM: GENERAL: The patient is intubated VITAL SIGNS:see workflow HEENT: Nonicteric sclerae, PERRLA, EOMI. Oropharynx clear. Moist mucous membranes. Conjunctivae appear well perfused. No thyroid mass. CHEST: Chest wall is nontender. HEART: Regular rate and rhythm without murmurs. LUNGS: b/l wheeze ABDOMEN: Soft, positive bowel sounds, nontender, no organomegaly.no flank tenderness SKIN: No rash, no excessive bruising, petechiae, or purpura. NEUROLOGIC: Cranial nerves II-XII intact without motor/sensory deficit. rectal tube with melena Results Labs CBC & Chem 7: 03/26/21 05:10 03/26/21 05:10 Labs: Short CBC 03/26/21 Range/Units 05:10 WBC 48.1 H* (4.8-10.8) X10*3/uL Hgb 10.4 L (12.0-16.0) g/dl Hct 32.2 L (37.0-47.0) % Plt Count 194 D (160-400) X10*3/uL BMP 03/26/21 05:10 Sodium 140 Potassium 4.7 Chloride 103 Carbon Dioxide 16 L BUN 115 H D Creatinine 6.30 H* Calcium 7.9 L Liver Function 03/26/21 Range/Units 05:10 Total Bilirubin 1.5 H (0.0-1.0) mg/dL AST 1765 H (5-31) U/L ALT 3221 H (0-31) U/L Alkaline Phosphatase 76 D (39-117) U/L Albumin 3.0 L (3.5-5.0) g/dL Microbiology Microbiology Results: Microbiology 03/24/21 16:49 Blood - Central Line Blood Culture - Preliminary No growth after 24 hours. 03/24/21 16:49 Blood - Central Line Blood Culture - Preliminary No growth after 24 hours. 03/24/21 16:50 Urine Catheterized - Witt Catheter Urine Culture - Pr eliminary Culture in progress. 03/18/21 19:37 Blood - Venous Blood Culture - Final No growth after 5 days. 03/18/21 19:37 Blood - Venous Blood Culture - Final Assessment and Plan (1) Acute blood loss anemia: Status: Acute Plan 1/ melena with drop in HGB, ddx: esophagitis, PUD, dieulafoy, neoplasia, OG tube trauma PLAN: 1/ EGD today for further assessment Procedures Date of Service Date of Service: 03/26/21
--- NOTE | 2021-03-26 12:28 | MHC.SHP ---
Pre-Procedural Eval Section A Date of Service: 03/26/21 The patient is an INPATIENT: Yes The History & Physical has been completed within 30 days and I have reviewed it.: Yes Section B Chief Complaint: COVID-19/ Acute hypoxic resp failure, +trop Allergies: Allergies Allergy/AdvReac Type Severity Reaction Status Date / Time ciprofloxacin [From Cipro] Allergy Unknown HIVES/SWELLING, Verified 02/20/21 15:09 THROAT CLOSES shellfish derived Allergy Unknown UNKNOWN Verified 02/20/21 15:09 [SHELLFISH DERIVED] NSAIDS AdvReac Unknown avoid cue Verified 02/20/21 15:09 to kidney disease Plan Diagnosis/Plan: Unchanged I have reviewed the history and physical and performed a pertinent physical examination on my patient. No changes have occurred unless specified.
--- NOTE | 2021-03-26 13:29 | P.BOP_ITS ---
Brief Operative Note Date of Service: 03/26/21 Pre-op diagnosis: anemia Post-op diagnosis: same Procedure: see op note Surgeon: Kentrell Queen MD Anesthesia: GETA Was an Assistant Chief Engineer used for this Procedure?: No Estimated blood loss (mL): 0 Condition: stable Disposition: PACU
--- NOTE | 2021-03-26 13:29 | W.PM.OPN ---
Operative Note Operative Note Date of Service: 03/26/21 Narrative: Procedure Description: EGD FLEXIBLE TRANSORAL UPPER GASTROINTESTINAL ENDOSCOPY UPPER ENDOSCOPY Consent: Indications for the procedure and potential complications of bleeding, perforation, reaction to medications and missed diagnosis were discussed with the patient and informed consent was obtained from the HCP. Instrument: Olympus GIF H 190 J mid size upper endoscope Monitoring: Vital signs and clinical assessment, continuous EKG monitoring, Pulse oximetry, Carbon Dioxide monitoring and blood pressure monitoring were done throughout the procedure. Procedure: The patient was placed in the left lateral decubitis position and pre-procedure medications were administered and a bite block was placed. The endoscope was inserted into the mouth and advanced under direct vision to the third part of duodenum. A careful inspection was made as the upper endoscope was withdrawn including a retroflexed examination of the proximal stomach; Findings and interventions are described below. Findings: Larynx:normal Esophagus: GE junction at 40 cm, diaphragm hiatus at 40 cm, no varices or esophagitis. Stomach: Patchy gastric erythema with erosions and friability at anterior wall of mid body of stomach and in antrum. Grade 2 flap valve on retroflexed examination of the cardia. Duodenum: Patchy erythema and edema of mucosa consistent with peptic injury No active bleeding at time of endoscopy Intervention: none Impression/Findings: erosive gastritis, possibly stress related GI injury or from OG tube trauma vs both peptic duodenitis PLAN: pantoprazole 40 mg bID can add carafate 1 gram thru OG QID
--- NOTE | 2021-03-26 13:33 | MHC.CM.PN ---
Pt remains intubated in ICU w/ suspected aspiration event and is receiving HD for ARF: d/c plans are undetermined at this time as pt's functional abilities are not known. Her original d/c plan was for a return to home with [employer] O2, Daily methadone administration from [place], and assistance from Significant other and dtr. This seems unlikely given her prolonged ICU stay and definite deconditioning. CM to follow for finalization of d/c planning.
--- NOTE | 2021-03-26 13:40 | P.PNCC_ITS ---
Subjective Subjective Date of Service: 03/26/21 Interval History: Ms. Galeas was admitted to the ICU on Mar 18 with acute respiratory failure. The patient is a 60 yo F with PMHx of COPD on 2 L of supplemental oxygen; lung cancer s/p ?palliative? XRT with curative intent that was completed 23 months ago, polysubstance abuse now on methadone, seizure disorder, CKD stage 4-5, previously declined HD, and CHF.? She?s had COVID vaccine shots x3. The patient lives with her boyfriend (Kodi Mahmood, one of her HCPs, cell [phone]) and her son.? She walks with a cane.? She needs help with dressing and bathing.? Her daughter Anabel, who is the other HCP (cell:? [phone]), tells me that her grandmother (the daughter?s grandmother), who?s 80 years old, is in better health than her mother (the patient). The patient was seen in the ED here on Mar 12 c/o SOB.? Dx?d with a COPD exacc.? (No CXR or COVID test done.)? Discharged with a Prednisone script. The patient was BIBA on 03/18/2021 with SOB and confusion.? ABG showed 7.45/37/124/+2.? CXR showed increased interstitial prominence bilaterally, and a new more focal hazy opacity in the left lower lobe.? COVID-19 test was p ositive.? BUN/creat were 131/2.5 (baseline about 90/3.2).? D-dimer was 2300.? She was treated with empiric broad-spectrum antibiotics.? Later in the ED, she developed hypoxia refractory to NIV, and required intubation and ventilatory support.? She was admitted to ICU, and treated for COVID.? She was heparinzed for possible PE -- unable to do CTPA, and was thought unable to fit in the perfusion scanner.? Noncontrast CT Chest on Mar 19 showed empysema; small areas of dense opacification in the posterior lower lobes, R>L; with scattered small areas of groundglass attenuation in the upper lobes. L> R; suggestive of multifocal pneumonia and/or sequelae of aspiration.? Venous Duplex scan on 03/19 was negative Peak trop was 2800.? EKG showed no ischemic changes.? Echocardiogram on Mar 19 showed LVEF 30% with marked RWMAs.? The RV size was mod increased, with mod decreased RV fxn.? IVC was dilated w no insp collapse.? RVSP estimate 41mm. ? Last echo 2018 showed normal LV fxn, mild LVH, normal right heart, no valvular pathology. The patient?s FiO2 came down rapidly, and bec of that, COVID pneumonia was felt unlikely and COVID treatment was stopped.? The patient was extubated on 03/21/2021. ?She was sat?ing up to 98% on 2L NC.? Heparinization was stopped.? The patient?s renal indices have been rising.? The patient remained significantly encephalopathic, thought likely secondary to uremia.? On Mar 23 she developed respiratory distress and hypoxemia thought secondary to aspiration and inability to protect the airway.? The patient was reintubated.? By my reading, the post-intubation chest/x-ray looks clearer than her admission CXR with just a mild RML infiltrate.? CT scan that day showed no acute structural lesions to account for her encephalopathy. We placed a temporary dialysis catheter on March 24, and started dialysis yesterday.? That first dialysis session was hemodynamically labile, so I placed an arterial line.? Echo yesterday suggested near normal LV function, and normal RV size and function.? The IVC was normal sized with near full inspiratory collapse, suggesting that she might be hypovolemic. ?So we volume resuscitated her with albumin and crystalloid.? Later yesterday afternoon, the patient also went into atrial flutter.? We gave her two bolus doses of amiodarone which did not help very much, so we started her back on diltiazem.? That put her back into sinus rhythm and we now have her on 5 mg/hour infusion.? After the volume resuscitation, and her hemodynamics improved significantly and her Levophed dose was cut way down.? In consultation with ID, we changed her abx from vanco and Zosyn, to doxycycline. No significant events overnight.? Currently sedated on propofol 30ug and fentanyl 150 ug.? Also on Levophed down to 0.25ug (from 0.7ug yest), Diltiazem 5mg, and 1/2NS 80cc/hr.? Afebrile today.? HR 87, SR..? BP 122/60 by A-line, with good tracing.? On AC 16/400/40%/+5, RR is 25, Ve 9.7L, PIP 17, ETCO2 23, Sat 99%.? CVBG this morning 7.45/25/-10.? No JVD at 30?, chest CTA, w normal exp phase.? Abd nondistended, benign.? She?s putting out black stool.? She has minimal edema. LABORATORY DATA:? Below.? Notably, white count still 48, Hb down further to 10.4, sodium down to 140 and B/creat down to 115/6.3 after HD, bicarb up to 16, potassium steady, phosphorus up to 10.1, transaminases down to 1700/3200, La ctate down to 1.2.? Ferritin still greater than 30,000, PCT up to 12. MICROBIOLOGY:? No sputum sample able to be obtained.? U/A negative.? BCs negative so far.? Her blood smear from yesterday SEROLOGY:? CDiff tox gene negative.? SARs CoV 2 IgG antibody positive on Mar 21. IMPRESSION: 1. Underlying emphysematous lung disease. 2. Chronic hypoxemic and hypercapnic lung disease.? Blood gasses show signif hypercarbia dating back at least two years. 3. Underlying CKD 4-5. 4. Significant baseline disability 5. Acute respiratory failure, the etiology of which is not clear.? Her admitting CXR was c/w almost anything.? Although her chest CT was not inconsistent with mild COVID pneumonia, the fact that she went from 100% FiO2 to 2L NC (which is her baseline) in a few days is thoroughly inconsistent with severe COVID pneumonia.? I agree that there is no need here for treatment for COVID (see further below).? Could be PE.? Couldn?t be ruled out for sure on echo on Mar 19 bec she had biventricular failure, not just RHF.? But Duplex scan of UEs and LEs was negative.? Sending her for a perfusion scan today.? And not likely aspiration or bacterial or viral pneumonia, given the relatively clear CXR. 6. COVID positive.? As noted, she doesn?t have COVID pneumonia.? Her serum IgG was positive on Mar 21.? So her infection date was no later than about Mar 07.? It?s almost a certainty that she?s post viral.? It?s possible that she?s about to enter the post viral pulmonary phase, but that would be a stretch.? I wouldn?t take any prophylactic agents now (e.g. [facility] protocol), altho she?s been on Pepcid. 7. Biventricular heart failure.? Undetermined etiology, but her echo has pretty much normalized.? Can?t say what yesterday?s BNP or today?s troponin means, given her renal failure.? Could hypothesize that this is COVID mycocarditis, arturo given the troponin elevations.? But the resolved way too early for that.? I?ll recheck her EKG. 8. Hypotension w Shock.? Unable to determine etiology.? Could be sepsis (arturo w ith the WBC, fever, and lactate), could be PE (but RV is now normal, and she?s not severely hypoxemic anymore).? She definitely responded to volume yesterday.? I?ll give her another volume bolus during HD today. 9. Acute on chronic renal failure.? Undoubtedly 2? ATN.? Plan HD daily this week. 10. Metabolic encephalopathy.? Presumably 2? uremia.? We?ll see how she is after 2-3 days of HD. 11. ID.? Fever and marked leukocytosis.?? Recultured, so far negative.? Stool negative for CDiff.? The high ferritin suggested parasitic dz, but the prelim blood smear yest was negative.? We?ll get a definitive reading today.? Legionella ag is pending.? HIV and hepatitis panels were neg.? Continuing the d oxycycline.? D/W Dr. Grant today.? Also spoke w Dr. Perdomo from pathology re the blood smear, which was negative. 12. Transaminase elevations coming down.? Suggestive of shock liver. 13. Anemia.? Hb dropped 3 points over last two days, now w black stool.? She?s been on only Pepcid.? Discussed with Dr. Queen.? We scoped her today.? Found only gastritis, with erosions suggestive of bleeding, but no active bleeding.? We?ll keep her on bid PPI, and Carafate. 14. Hypernatremia.? Resolved. 15. Nutrition:? Started tube feeds yesterday.? On Nepro. Spoke with Kodi Mahmood twice with updates. Critical care time (includ assisting Dr. Queen with EGD):? 90+ min. Critical Care Time (minutes): 90 Physical Exam Vital Signs: Vital Signs: Last Vital Signs Temp 98.6 F 03/26/21 13:00 Pulse 82 03/26/21 13:00 Resp 21 H 03/26/21 13:00 BP 128/66 03/26/21 13:00 Pulse Ox 96 03/26/21 13:00 BMI result Body Mass Index 35.6 Objective Data Labs CBC & Chem 7: 03/26/21 05:10 03/26/21 05:10 Labs: Laboratory Results - last 24 hr 03/25/21 03/25/21 03/25/21 15:05 15:05 16:00 WBC RBC Hgb Hct MCV MCH MCHC RDW Plt Count MPV Immature Gran % (Auto) Neut % (Auto) Lymph % (Auto) [place] % (Auto) Eos % (Auto) Baso % (Auto) Lymph # (Auto) [place] # (Auto) Eos # (Auto) Baso # (Auto) Abs Immat Gran (auto) Absolute Neuts (auto) Absolute Nucleated RBC Nucleated RBC % (auto) Neutrophils % (Manual) Band Neutrophils % Lymphocytes % (Manual) Metamyelocytes % Abs Neuts (Manual) Lymphocytes # (Manual) Metamyelocytes # Nucleated RBCs Smudge Cells Platelet Estimate Plt Morphology Comment RBC Morphology Macrocytosis Pappenheimer Bodies Tear Drop Cells [place] Cells Acanthocytes (Spur) Smear Path Review D-Dimer High Sensitivty O2 Saturation Cancelled 93.0 ABG pH at Pt Temp Cancelled 7.41 ABG pH (Temp Correct) Cancelled ABG pCO2 at Pt Temp Cancelled 23 L ABG pCO2 (Temp Corrct Cancelled ABG pO2 at Pt Temp Cancelled 76 L ABG pO2 (Temp Correct Cancelled ABG HCO3 Cancelled 15 L ABG Base Excess (Actual) Cancelled -7.0 VBG pH VBG pCO2 VBG pO2 VBG HCO3 VBG O2 Saturation VBG Base Excess Sodium Potassium Chloride Carbon Dioxide Anion Gap BUN Creatinine Estim Creat Clear Calc Estimated GFR Random Glucose Lactic Acid Calcium Phosphorus Magnesium Ferritin Total Bilirubin AST ALT Alkaline Phosphatase Troponin I High Sens Total Protein Albumin Procalcitonin Nasal Screen MRSA (PCR) POSITIVE A Nasal S. aureus Screen POSITIVE A Nasal MRSA/S.aureus Interp SEE NOTE Hepatitis A IgM Ab Hep Bs Antigen Hep Bs Antibody Hep B Core Total Ab Hepatitis C Ab (EIA) HIV 1&2 Ab/P24 Ag 4thGn 03/25/21 03/26/21 03/26/21 18:18 05:10 05:10 WBC 48.1 H* RBC 3.65 L Hgb 10.4 L Hct 32.2 L MCV 88.2 MCH 28.5 MCHC 32.3 RDW 14.7 Plt Count 194 D MPV 11.9 Immature Gran % (Auto) Cancelled Neut % (Auto) Cancelled Lymph % (Auto) Cancelled [place] % (Auto) Cancelled Eos % (Auto) Cancelled Baso % (Auto) Cancelled Lymph # (Auto) Cancelled [place] # (Auto) Cancelled Eos # (Auto) Cancelled Baso # (Auto) Cancelled Abs Immat Gran (auto) Cancelled Absolute Neuts (auto) Cancelled Absolute Nucleated RBC 1.690 H Nucleated RBC % (auto) 3.5 H Neutrophils % (Manual) 94 H Band Neutrophils % 2 L Lymphocytes % (Manual) 3 L Metamyelocytes % 1 Abs Neuts (Manual) 46.2 H Lymphocytes # (Manual) 1.4 Metamyelocytes # 0.5 Nucleated RBCs 3 H Smudge Cells PRESENT Platelet Estimate NORMAL Plt Morphology Comment NORMAL RBC Morphology NOTED Macrocytosis 1+ (5-14) Pappenheimer Bodies PRESENT Tear Drop Cells 1+ (0-2) [place] Cells 1+ (0-2) Acanthocytes (Spur) 1+ (0-2) Smear Path Review SEE NOTE D-Dimer High Sensitivty 2662 O2 Saturation ABG pH at Pt Temp ABG pH (Temp Correct) ABG pCO2 at Pt Temp ABG pCO2 (Temp Corrct ABG pO2 at Pt Temp ABG pO2 (Temp Correct ABG HCO3 ABG Base Excess (Actual) VBG pH VBG pCO2 VBG pO2 VBG HCO3 VBG O2 Saturation VBG Base Excess Sodium Potassium Chloride Carbon Dioxide Anion Gap BUN Creatinine Estim Creat Clear Calc Estimated GFR Random Glucose Lactic Acid Calcium Phosphorus Magnesium Ferritin Total Bilirubin AST ALT Alkaline Phosphatase Troponin I High Sens Total Protein Albumin Procalcitonin Nasal Screen MRSA (PCR) Nasal S. aureus Screen Nasal MRSA/S.aureus Interp Hepatitis A IgM Ab Nonreactive Hep Bs Antigen Negative Hep Bs Antibody NONREACTIVE Hep B Core Total Ab Nonreactive Hepatitis C Ab (EIA) Nonreactive HIV 1&2 Ab/P24 Ag 4thGn Nonreactive 03/26/21 03/26/21 03/26/21 05:10 05:10 05:10 WBC RBC Hgb Hct MCV MCH MCHC RDW Plt Count MPV Immature Gran % (Auto) Neut % (Auto) Lymph % (Auto) [place] % (Auto) Eos % (Auto) Baso % (Auto) Lymph # (Auto) [place] # (Auto) Eos # (Auto) Baso # (Auto) Abs Immat Gran (auto) Absolute Neuts (auto) Absolute Nucleated RBC Nucleated RBC % (auto) Neutrophils % (Manual) Band Neutrophils % Lymphocytes % (Manual) Metamyelocytes % Abs Neuts (Manual) Lymphocytes # (Manual) Metamyelocytes # Nucleated RBCs Smudge Cells Platelet Estimate Plt Morphology Comment RBC Morphology Macrocytosis Pappenheimer Bodies Tear Drop Cells Abi Cells Acanthocytes (Spur) Smear Path Review D-Dimer High Sensitivty O2 Saturation ABG pH at Pt Temp ABG pH (Temp Correct) ABG pCO2 at Pt Temp ABG pCO2 (Temp Corrct ABG pO2 at Pt Temp ABG pO2 (Temp Correct ABG HCO3 ABG Base Excess (Actual) VBG pH VBG pCO2 VBG pO2 VBG HCO3 VBG O2 Saturation VBG Base Excess Sodium 140 Potassium 4.7 Chloride 103 Carbon Dioxide 16 L Anion Gap 26 H BUN 115 H D Creatinine 6.30 H* Estim Creat Clear Calc 10.0 Estimated GFR 7 Random Glucose 202 H Lactic Acid 1.2 Calcium 7.9 L Phosphorus 10.1 H Magnesium 1.9 Ferritin > 76881 H Total Bilirubin 1.5 H AST 1765 H ALT 3221 H Alkaline Phosphatase 76 D Troponin I High Sens 1709.5 H* D Total Protein 5.4 L Albumin 3.0 L Procalcitonin Nasal Screen MRSA (PCR) Nasal S. aureus Screen Nasal MRSA/S.aureus Interp Hepatitis A IgM Ab Hep Bs Antigen Hep Bs Antibody Hep B Core Total Ab Hepatitis C Ab (EIA) HIV 1&2 Ab/P24 Ag 4thGn 03/26/21 03/26/21 05:10 05:12 WBC RBC Hgb Hct MCV MCH MCHC RDW Plt Count MPV Immature Gran % (Auto) Neut % (Auto) Lymph % (Auto) [place] % (Auto) Eos % (Auto) Baso % (Auto) Lymph # (Auto) [place] # (Auto) Eos # (Auto) Baso # (Auto) Abs Immat Gran (auto) Absolute Neuts (auto) Absolute Nucleated RBC Nucleated RBC % (auto) Neutrophils % (Manual) Band Neutrophils % Lymphocytes % (Manual) Metamyelocytes % Abs Neuts (Manual) Lymphocytes # (Manual) Metamyelocytes # Nucleated RBCs Smudge Cells Platelet Estimate Plt Morphology Comment RBC Morphology Macrocytosis Pappenheimer Bodies Tear Drop Cells Abi Cells Acanthocytes (Spur) Smear Path Review D-Dimer High Sensitivty O2 Saturation ABG pH at Pt Temp ABG pH (Temp Correct) ABG pCO2 at Pt Temp ABG pCO2 (Temp Corrct ABG pO2 at Pt Temp ABG pO2 (Temp Correct ABG HCO3 ABG Base Excess (Actual) VBG pH 7.34 VBG pCO2 24 VBG pO2 48 VBG HCO3 13 L VBG O2 Saturation 76.0 VBG Base Excess -10.3 Sodium Potassium Chloride Carbon Dioxide Anion Gap BUN Creatinine Estim Creat Clear Calc Estimated GFR Random Glucose Lactic Acid Calcium Phosphorus Magnesium Ferritin Total Bilirubin AST ALT Alkaline Phosphatase Troponin I High Sens Total Protein Albumin Procalcitonin 12.68 Nasal Screen MRSA (PCR) Nasal S. aureus Screen Nasal MRSA/S.aureus Interp Hepatitis A IgM Ab Hep Bs Antigen Hep Bs Antibody Hep B Core Total Ab Hepatitis C Ab (EIA) HIV 1&2 Ab/P24 Ag 4thGn Microbiology Microbiology Results: Microbiology 03/24/21 16:50 Urine Catheterized - Witt Catheter Urine Culture - Final No growth. 03/24/21 16:49 Blood - Central Line Blood Culture - Preliminary No growth after 24 hours. 03/24/21 16:49 Blood - Central Line Blood Culture - Preliminary No growth after 24 hours. 03/18/21 19:37 Blood - Venous Blood Culture - Final No growth after 5 days. 03/18/21 19:37 Blood - Venous Blood Culture - Final Quality Stroke Does the patient have a stroke diagnosis?: No VTE Prior VTE?: No VTE Risk Level:: Medical - moderate - high VTE Device Contraindication: Treatment Not Indicated VTE Drug Contraindication: N/A - Med Ordered Critical Care Time Critical Care Time (minutes): 90
[2021-03-26 14:37] LABS: OBS Int Ctl Valid YES; OBS1 POSITIVE (NEGATIVE)
[2021-03-26] MEDS: Famotidine/PF 20 MG/2 ML VIAL 10 MG IVPUSH (15:27)
[2021-03-26] MEDS: Sucralfate Oral Suspension 1 GM/10 ML ORAL.SUSP PO ×2 (15:27→19:28)
[2021-03-26] MEDS: MannitoL 12.5 GM/50 ML VIAL IV (15:27)
[2021-03-26] MEDS: Atorvastatin Calcium 40 MG TABLET PO (17:26)
[2021-03-27] VITALS (35 sets, daily range): BP systolic 113–138; BP diastolic 46–76; PULSE 75–109; RESP 12–36; TEMP 33.9–38.7; O2SAT 89–95; BMI 37.0
--- NOTE | 2021-03-27 | ECG_ITS ---
Test Reason : r/o ischemia Blood Pressure : / mmHG Vent. Rate : 105 BPM Atrial Rate : 105 BPM P-R Int : 142 ms QRS Dur : 076 ms QT Int : 386 ms P-R-T Axes : 072 054 232 degrees QTc Int : 510 ms Sinus tachycardia T wave abnormality, consider inferior ischemia T wave abnormality, consider anterolateral ischemia Abnormal ECG When compared with ECG of 26-MAR-2021 13:39, Inverted T waves have replaced nonspecific T wave abnormality in Inferior leads T wave inversion more evident in Lateral leads QT has lengthened Referred By: Deacon Han Electronically Signed By:THERESA BRENNAN MD
[2021-03-27] MEDS: methylPREDNISolone Sod Succ 125 MG/2 ML VIAL 60 MG IVPUSH ×3 (01:43→15:41)
[2021-03-27] MEDS: Sucralfate Oral Suspension 1 GM/10 ML ORAL.SUSP PO ×4 (01:43→20:06)
[2021-03-27] MEDS: Sodium Chloride 0.45 % 1,000 ML 80 ML IVCONT ×2 (01:44→13:50)
[2021-03-27] MEDS: fentaNYL citrate/NS 1,000 MCG/100 ML PLAST..BAG 20 MCG IVCONT ×6 (02:55→23:36)
[2021-03-27] MEDS: dilTIAZem HCL 125 MG in 0.9 % Sodium Chloride 100 ML 10 MG IVCONT ×3 (02:56→23:34)
[2021-03-27] MEDS: Doxycycline Hyclate 100 MG in 0.9 % Sodium Chloride 250 ML 166.67 MG IV (04:11)
[2021-03-27] MEDS: propofoL 1,000 MG/100 ML VIAL 24 MG IVCONT ×6 (05:18→23:35)
[2021-03-27 05:34] LABS: VBG Base Excess -3.3 mmol/L; VBG HCO3 18 mmol/L (22-26); VBG pCO2 22 mmHg; VBG pO2 48 mmHg
[2021-03-27 05:38] LABS: Basophils Absolute Auto 0.1 X10*3/uL (0.0-0.2); Basophils Percent Auto 0.3 % (0-2); Hematocrit 26.3 % (37.0-47.0); Hemoglobin 9.1 g/dl (12.0-16.0); Lymphocytes Absolute Auto 0.4 X10*3/uL (1.2-4.9); Lymphocytes Percent Auto 1.1 % (20-40); MANUAL DIFF FLAG SCAN; Mean Corpuscular HGB Conc 34.6 g/dl (31.0-35.0); Mean Corpuscular Hemoglobin 28.9 pg (27.0-33.0); Mean Corpuscular Volume 83.5 fL (80.0-98.0); Mean Platelet Volume 12.2 fL (9.4-12.3); Monocytes Percent Auto 2.9 % (2-11); NRBC Pct Auto 8.5 /100WBC (0.0-0.2); Neutrophils Absolute Auto 32.5 x10*3/uL (2.0-8.3); Neutrophils Percent Auto 91.7 % (45-73); Platelet Count 155 X10*3/uL (160-400); Red Blood Count 3.15 X10*6/uL (4.20-5.50); Red Cell Distribution Width 14.2 % (11.0-16.0); SCAN SMEAR FLAG 1
[2021-03-27 05:39] LABS: Venous Blood Gas Refer to POC result
[2021-03-27 05:40] LABS: White Blood Count 35.4 X10*3/uL (4.8-10.8)
[2021-03-27 05:48] LABS: Lactic Acid 1.2 mmol/L (0.5-2.0)
[2021-03-27 05:56] LABS: SLIDE REVIEW VERIFIED
[2021-03-27 05:58] LABS: Alanine Aminotransferase 1605 U/L (0-31); Albumin Level 2.9 g/dL (3.5-5.0); Alkaline Phosphatase 127 U/L (39-117); Anion Gap 21 (12-20); Aspartate Amino Transferase 327 U/L (5-31); Bilirubin Total 1.2 mg/dL (0.0-1.0); Blood Urea Nitrogen 83 mg/dL (9-16); Calcium 7.5 mg/dL (8.4-10.2); Carbon Dioxide 17 mmol/L (22-29); Chloride 101 mmol/L (96-108); Estimated Glomerular Filt Rate 10; Glucose Random 254 mg/dL (60-115); Lactate Dehydrogenase 1160 U/L (122-220); Magnesium 1.6 mg/dL (1.6-2.6); Phosphorus 4.8 mg/dL (2.7-4.5); Potassium 3.6 mmol/L (3.3-5.1); Sodium 135 mmol/L (135-145); Total Protein 5.1 g/dL (6.5-8.0)
[2021-03-27 06:11] LABS: Procalcitonin 8.19 ng/mL
--- NOTE | 2021-03-27 06:16 | PC.NURSE ---
Tmax 100.8 core. NSR/ST on tele, HR 90-110s, cardizem gtt running per emar. Levophed titrated to maintain MAP > 65. A-line waveform dampened, despite repositioning/flushing, PA aware- NIBP used. Pt sedated on propofol, responds to noxious stimuli, +C/G. Fentanyl gtt titrated up per emar, RR 30-40s. ETT #7.5, 23 cm at lip. On AC 16/400/5/25%, SpO2 > 88%, EtCO2 20s. Nepro tf running at max rate of 20 ml/hr, GRV [address], UOP 30-50 ml/hr. Rectal tube with minimal output. Skin intact, on prevalon system and turning bed. HD treatment started by dialysis nurse at approx 0600.
[2021-03-27] MEDS: Chlorhexidine Gluc Oral Rinse 15 ML MOUTHWASH BUCCAL ×3 (08:05→20:06)
[2021-03-27] MEDS: Atorvastatin Calcium 40 MG TABLET PO (08:06)
[2021-03-27] MEDS: Metoprolol Tartrate 12.5 MG HALFTAB PO ×2 (08:06→20:06)
--- NOTE | 2021-03-27 10:48 | PM.PNNEP ---
Subjective Subjective Date of Service: 03/27/21 Interval history: Events noted Seen during HD Physical Exam Vital Signs: Vital Signs: Last Vital Signs Temp 99.0 F 03/27/21 10:00 Pulse 85 03/27/21 10:00 Resp 20 03/27/21 10:00 BP 128/63 03/27/21 10:00 Pulse Ox 91 L 03/27/21 10:00 BMI result Body Mass Index 37.0 Const: Other: intubated On pressors Lungs with Rhonchi Hrt : No gallop or rub Abd Obese Soft NS no asterexis General: ill appearing Objective Data Labs CBC & Chem 7: 03/27/21 05:22 03/27/21 05:22 Labs: Laboratory Results - last 24 hr 03/26/21 03/26/21 03/27/21 05:10 Unknown 05:22 WBC RBC Hgb Hct MCV MCH MCHC RDW Plt Count MPV Immature Gran % (Auto) Neut % (Auto) Lymph % (Auto) [place] % (Auto) Eos % (Auto) Baso % (Auto) Lymph # (Auto) [place] # (Auto) Eos # (Auto) Baso # (Auto) Abs Immat Gran (auto) Absolute Neuts (auto) Absolute Nucleated RBC Nucleated RBC % (auto) Smear Tech's Comments Smear Path Review SEE NOTE VBG pH VBG pCO2 VBG pO2 VBG HCO3 VBG O2 Saturation VBG Base Excess Sodium 135 Potassium 3.6 D Chloride 101 Carbon Dioxide 17 L Anion Gap 21 H BUN 83 H D Creatinine 4.63 H* Estim Creat Clear Calc 15.0 Estimated GFR 10 Random Glucose 254 H Lactic Acid Calcium 7.5 L Phosphorus 4.8 H Magnesium 1.6 Total Bilirubin 1.2 H AST 327 H ALT 1605 H Alkaline Phosphatase 127 H D Lactate Dehydrogenase 1160 H Total Protein 5.1 L Albumin 2.9 L Procalcitonin Stool Occult Blood POSITIVE 03/27/21 03/27/21 03/27/21 05:22 05:22 05:22 WBC 35.4 H* RBC 3.15 L Hgb 9.1 L Hct 26.3 L MCV 83.5 MCH 28.9 MCHC 34.6 RDW 14.2 Plt Count 155 L MPV 12.2 Immature Gran % (Auto) 4.0 H Neut % (Auto) 91.7 H Lymph % (Auto) 1.1 L [place] % (Auto) 2.9 Eos % (Auto) 0.0 Baso % (Auto) 0.3 Lymph # (Auto) 0.4 L [place] # (Auto) 1.0 Eos # (Auto) 0.0 Baso # (Auto) 0.1 Abs Immat Gran (auto) 1.40 H Absolute Neuts (auto) 32.5 H Absolute Nucleated RBC 3.000 H Nucleated RBC % (auto) 8.5 H Smear Tech's Comments VERIFIED Smear Path Review VBG pH VBG pCO2 VBG pO2 VBG HCO3 VBG O2 Saturation VBG Base Excess Sodium Potassium Chloride Carbon Dioxide Anion Gap BUN Creatinine Estim Creat Clear Calc Estimated GFR Random Glucose Lactic Acid 1.2 Calcium Phosphorus Magnesium Total Bilirubin AST ALT Alkaline Phosphatase Lactate Dehydrogenase Total Protein Albumin Procalcitonin 8.19 Stool Occult Blood 03/27/21 05:25 WBC RBC Hgb Hct MCV MCH MCHC RDW Plt Count MPV Immature Gran % (Auto) Neut % (Auto) Lymph % (Auto) [place] % (Auto) Eos % (Auto) Baso % (Auto) Lymph # (Auto) [place] # (Auto) Eos # (Auto) Baso # (Auto) Abs Immat Gran (auto) Absolute Neuts (auto) Absolute Nucleated RBC Nucleated RBC % (auto) Smear Tech's Comments Smear Path Review VBG pH 7.50 H VBG pCO2 22 VBG pO2 48 VBG HCO3 18 L VBG O2 Saturation 77.0 VBG Base Excess -3.3 Sodium Potassium Chloride Carbon Dioxide Anion Gap BUN Creatinine Estim Creat Clear Calc Estimated GFR Random Glucose Lactic Acid Calcium Phosphorus Magnesium Total Bilirubin AST ALT Alkaline Phosphatase Lactate Dehydrogenase Total Protein Albumin Procalcitonin Stool Occult Blood Microbiology Microbiology Results: Microbiology 03/24/21 16:49 Blood - Central Line Blood Culture - Preliminary No growth after 48 hours. 03/24/21 16:49 Blood - Central Line Blood Culture - Preliminary No growth after 48 hours. 03/24/21 16:50 Urine Catheterized - [place] Catheter Urine Culture - Final No growth. 03/18/21 19:37 Blood - Venous Blood Culture - Final No growth after 5 days. 03/18/21 19:37 Blood - Venous Blood Culture - Final Procedures Date of Service Date of Service: 03/27/21 Assessment & Plan Assessment and plan (1) JOAN (acute kidney injury): Status: Acute Plan JOAN superimposed on CKD /Uremia No obstruction by sonogram No proteinuria/Hematuria- AGN/AIN seem unlikely Probably has ATN- multifatorail Shock COVID -19 Resp failure Resp ALkalosis with Met acidosis Leukocytosis/Anemia Severely elevated Ferritin - > 21557 Shock Liver Plan HD again today to correct uremia 3 hr with Mannitol No fluid removal Discussed with team Shall follow closely Hold HD tomorrow and reassess Time Spent With Patient Time: Total time spent is greater than 50% in coordination of care (as documented) at patient's floor/unit and/or counseling patient: Time with patient: 15 - 24 minutes Progress Note: Quality Stroke Does the patient have a stroke diagnosis?: No
--- NOTE | 2021-03-27 13:18 | HO.POSTANES ---
Post Anesthesia Evaluation Post Anesthesia Evaluation Vital Signs: Vital Signs Temp Pulse Resp BP Pulse Ox 03/27/21 13:00 99.9 F 94 28 H 131/65 91 L 03/27/21 12:00 99.7 F 94 25 H 134/66 91 L 03/27/21 11:00 99.3 F 88 22 H 122/62 91 L 03/27/21 10:00 99.0 F 85 20 128/63 91 L 03/27/21 09:00 98.4 F 81 23 H 113/72 91 L 03/27/21 08:00 98.6 F 100 25 H 114/73 91 L 03/27/21 07:00 99.7 F 109 H 27 H 132/70 91 L 03/27/21 06:13 75 03/27/21 06:12 100.8 F H 03/27/21 05:56 100.2 F 103 H 34 H 137/61 91 L 03/27/21 05:18 36 H 03/27/21 05:00 100.4 F 102 H 33 H 130/66 92 03/27/21 04:00 100.4 F 97 31 H 129/46 L 03/27/21 03:36 35 H 03/27/21 03:00 100.2 F 107 H 32 H 138/75 91 L 03/27/21 02:55 33 H 03/27/21 01:55 35 H 03/27/21 01:41 100.4 F 96 28 H 125/65 92 Anesthesia: General Endotracheal-GETA Mental Status: Awake (lethargic) Pain Control: Satisfactory Nausea/Vomiting: None Hydration: Adequate Anesthesia-Related Issues: No Anes. Related Issues
--- NOTE | 2021-03-27 17:27 | P.PNCC_ITS ---
Subjective Subjective Date of Service: 03/27/21 Interval History: Ms. Galeas was admitted to the ICU on Mar 18 with acute respiratory failure. The patient is a 60 yo F with PMHx of COPD on 2 L of supplemental oxygen; lung cancer s/p ?palliative? XRT with curative intent that was completed 23 months ago, polysubstance abuse now on methadone, seizure disorder, CKD stage 4-5, previously declined HD, and CHF.? She?s had COVID vaccine shots x3. The patient lives with her boyfriend (Kodi Mahmood, one of her HCPs, cell [phone]) and her son.? She walks with a cane.? She needs help with dressing and bathing.? Her daughter Anabel, who is the other HCP (cell:? [phone]), tells me that her grandmother (the daughter?s grandmother), who?s 80 years old, is in better health than her mother (the patient). The patient was seen in the ED here on Mar 12 c/o SOB.? Dx?d with a COPD exacc.? (No CXR or COVID test done.)? Discharged with a Prednisone script. HISTORY OF PRESENT ILLNESS:? The patient was BIBA on 03/18/2021 with SOB and confusion.? ABG showed 7.45/37/124/+2.? CXR showed increased interstitial prominence bilaterally, and a new more focal hazy opacity in the left lower lobe.? COVID-19 test was positive.? BUN/creat 131/2.5 (baseline about 90/3.2).? D-dimer was 2300.? She was treated with empiric broad-spectrum antibiotics.? Later in the ED, she developed hypoxia refractory to NIV, and required intubation and ventilatory support.? She was admitted to ICU, and treated for COVID.? She was also heparinzed for possible PE -- unable to do CTPA.? Noncontrast CT Chest on Mar 19 showed empysema; small areas of dense opacification in the posterior lower lobes, R>L; with scattered small areas of groundglass attenuation in the upper lobes, L> R; suggestive of multifocal pneumonia and/or sequelae of aspiration.? Venous Duplex scan on 2/9 was negative Peak trop was 2800.? EKG showed no ischemic changes.? Echocardiogram on Mar 19 showed LVEF 30% with marked RWMAs.? The RV size was mod increased, with mod decreased RV fxn.? IVC was dilated w no insp collapse.? RVSP estimate 41mm. ? Last echo 2018 showed normal LV fxn, mild LVH, normal right heart, no valvular pathology. The patient?s FiO2 came down rapidly, and bec of that, COVID pneumonia was felt unlikely and COVID treatment was stopped.? The patient was extubated on 03/21/2021. ?She was sat?ing up to 98% on 2L NC.? Heparinization was stopped.? The patient?s renal indices cally progressively.? The patient remained significantly encephalopathic, thought likely secondary to uremia.? On Mar 23 she developed respiratory distress and hypoxemia thought secondary to aspiration and/or inability to protect the airway.? The patient was reintubated.? By my reading, the post-intubation chest/x-ray looks clearer than her admission CXR with just a mild RML infiltrate.? Head CT scan that day showed no acute structural lesions to account for her encephalopathy. A temporary dialysis catheter was placed March 24, and the patient started dialysis the next day.? Repeat echo Mar 15 showed near normal LV function, and n ormal RV size and function.? The IVC was normal sized with near full inspiratory collapse, suggesting that she might be hypovolemic.? We volume resuscitated her, which improved her BP.? That afternoon, the patient went into atrial flutter.? Two bolus doses of amiodarone did not help.? A diltiazem infusion put her back into sinus rhythm.? In consultation with ID, we changed her abx from vanco and Z osyn, to doxycycline.? WBC cally to 48all cultures negative, CDiff negative. Yesterday she was putting out black stool, hemoccult positive.? Hb was down 3grams over 48hrs.? She underwent EGD by Dr. Queen.? Found gastritis with erosions that were likely the site of bleeding.? We put the patient on bid PPI, plus Carafate.? Lung perfusion study showed very low prob of PE. No significant events overnight.? Her dialysis session today, the third one, went smoothly.? Later on we did a sedation holiday.? After about 40 min.? The best response was a grimace to stimulation.? No eye opening, no spont movement, 100% noninteractive.? Her respiratory rate cally significantly, and we had to put her back on propofol. ?Currently sedated on propofol 50ug and fentanyl 200 ug.? Also on Levophed down to 0.15ug, and Diltiazem 10mg.? Tmax 101.3.? HR 101, SR..? BP 124/70.? On AC 16/400/25%/+5, RR is 29, Ve 11.4L, PIP 24, ETCO2 22, Sat 91%.? CVBG this morning 7.50/22/-3.? No JVD at 30?, chest CTA, w normal exp phase.? Abd nondistended, soft, benign.? She?s still putting out black stool.? She has minimal edema.? Both of her elbows look normal.? (The family asked me to look at her elbows.) LABORATORY DATA:? Below.? Notably, white count down to 35, Hb down further to 9.1, plat down to 155, sodium down to 135 and B/creat down to 83/4.6 after HD, bicarb up to 16, phosphorus down to 4.8, transaminases down further, LDH down to 1160, PCT down to 8.1. Random trop yesterday was 1709.? EKG yesterday showed new anterolat inverted Twaves, compared to EKG of Mar 19.? Discussed with Dr. Santos, could not r/o ischemia, so we put her on statin and metoprolol.? No ASA or heparin bec of GI bleed.? Repeat EKG today is unchanged from yest. MICROBIOLOGY:? No sputum sample able to be obtained.? U/A negative.? BCs negative so far.? Her blood smear from Mar 25 was unremarkable for any sign of parasitic dz. SEROLOGY:? CDiff tox gene negative.? SARs CoV 2 IgG antibody positive on Mar 21. IMPRESSION: 1. Underlying emphysematous lung disease. 2. Chronic hypoxemic and hypercapnic lung disease.? Blood gasses show signif hypercarbia dating back at least two years. 3. Underlying CKD 4-5. 4. Significant baseline disability 5. Acute respiratory failure, the etiology of which is not clear.? Her admitting CXR was c/w almost anything.? Although her chest CT was not inconsistent with mild COVID pneumonia, the fact that she went from 100% FiO2 to 2L NC (which is her baseline) in a few days is thoroughly inconsistent with severe COVID pneumonia.? Could have been PE, which couldn?t be ruled out for sure on echo on Mar 19.? But duplex scans were negative, her RV was normal on the next echo, and perfusion scan yesterday was very low probability.? And her hypoxemia was not likely aspiration or bacterial or viral pneumonia, given the relatively clear CXR. 6. COVID positive.? As noted, she doesn?t have COVID pneumonia.? Her serum IgG was positive on Mar 21.? So her infection date was no later than about Mar 07.? It?s almost a certainty that she?s post viral now. 7. Biventricular heart failure on echo of Mar 19.? Undetermined etiology, but her echo has pretty much normalized.? Can?t say what her BNP or her troponins mean, given her renal failure.? Could hypothesize that this is COVID mycocarditis, arturo given the troponin elevations.? But the CMOP resolved way too early for that.? The EKG findings are c/w ACS, but not diagnostic.? I?ll recheck trops tomorrow. 8. Hypotension w Shock.? Etiology undetermined.? Could be sepsis (arturo with the WBC, fever, and lactate), but cultures were negative.? No source.? Her BP definitely responded to volume. 9. Acute on chronic renal failure.? Undoubtedly 2? ATN.? Plan HD daily this week. 10. Metabolic encephalopathy.? Presumably 2? uremia.? We?ll see how she does after another few days of HD. 11. ID.? Fever and marked leukocytosis.?? Recultured, so far negative.? Stool negative for CDiff.? The high ferritin suggested parasitic dz, but the blood smear yest was negative. ?Legionella ag is pending.? HIV and hepatitis panels were neg.? Stopped the doxycycline today. 12. Aflutter.? Resolved with diltiazem.? I?ll start her on oral diltiazem today. 13. Transaminase elevations coming down.? Suggestive of shock liver. 14. UGI bleed.? 2? stress gastritis.? Keeping her on bid PPI and Carafate.? Holding prophylactic heparin. 15. Hypernatremia.? Resolved. 16. Nutrition:? Started tube feeds yesterday.? On full dose Nepro. Critical care time:? 70+ min. Critical Care Time (minutes): 70 Physical Exam Vital Signs: Vital Signs: Last Vital Signs Temp 101.3 F H 03/27/21 17:00 Pulse 102 H 03/27/21 17:00 Resp 31 H 03/27/21 17:00 BP 124/70 03/27/21 17:00 Pulse Ox 91 L 03/27/21 17:00 BMI result Body Mass Index 37.0 Objective Data Labs CBC & Chem 7: 03/27/21 05:22 03/27/21 05:22 Labs: Laboratory Results - last 24 hr 03/27/21 03/27/21 03/27/21 05:22 05:22 05:22 WBC 35.4 H* RBC 3.15 L Hgb 9.1 L Hct 26.3 L MCV 83.5 MCH 28.9 MCHC 34.6 RDW 14.2 Plt Count 155 L MPV 12.2 Immature Gran % (Auto) 4.0 H Neut % (Auto) 91.7 H Lymph % (Auto) 1.1 L Douglas % (Auto) 2.9 Eos % (Auto) 0.0 Baso % (Auto) 0.3 Lymph # (Auto) 0.4 L Douglas # (Auto) 1.0 Eos # (Auto) 0.0 Baso # (Auto) 0.1 Abs Immat Gran (auto) 1.40 H Absolute Neuts (auto) 32.5 H Absolute Nucleated RBC 3.000 H Nucleated RBC % (auto) 8.5 H Smear Tech's Comments VERIFIED VBG pH VBG pCO2 VBG pO2 VBG HCO3 VBG O2 Saturation VBG Base Excess Sodium 135 Potassium 3.6 D Chloride 101 Carbon Dioxide 17 L Anion Gap 21 H BUN 83 H D Creatinine 4.63 H* Estim Creat Clear Calc 15.0 Estimated GFR 10 Random Glucose 254 H Lactic Acid 1.2 Calcium 7.5 L Phosphorus 4.8 H Magnesium 1.6 Total Bilirubin 1.2 H AST 327 H ALT 1605 H Alkaline Phosphatase 127 H D Lactate Dehydrogenase 1160 H Total Protein 5.1 L Albumin 2.9 L Procalcitonin 03/27/21 03/27/21 05:22 05:25 WBC RBC Hgb Hct MCV MCH MCHC RDW Plt Count MPV Immature Gran % (Auto) Neut % (Auto) Lymph % (Auto) Douglas % (Auto) Eos % (Auto) Baso % (Auto) Lymph # (Auto) Douglas # (Auto) Eos # (Auto) Baso # (Auto) Abs Immat Gran (auto) Absolute Neuts (auto) Absolute Nucleated RBC Nucleated RBC % (auto) Smear Tech's Comments VBG pH 7.50 H VBG pCO2 22 VBG pO2 48 VBG HCO3 18 L VBG O2 Saturation 77.0 VBG Base Excess -3.3 Sodium Potassium Chloride Carbon Dioxide Anion Gap BUN Creatinine Estim Creat Clear Calc Estimated GFR Random Glucose Lactic Acid Calcium Phosphorus Magnesium Total Bilirubin AST ALT Alkaline Phosphatase Lactate Dehydrogenase Total Protein Albumin Procalcitonin 8.19 Microbiology Microbiology Results: Microbiology 03/24/21 16:49 Blood - Central Line Blood Culture - Preliminary No growth after 48 hours. 03/24/21 16:49 Blood - Central Line Blood Culture - Preliminary No growth after 48 hours. 03/24/21 16:50 Urine Catheterized - Witt Catheter Urine Culture - Final No growth. 03/18/21 19:37 Blood - Venous Blood Culture - Final No growth after 5 days. 03/18/21 19:37 Blood - Venous Blood Culture - Final Quality Stroke Does the patient have a stroke diagnosis?: No VTE Prior VTE?: No VTE Risk Level:: Medical - moderate - high VTE Device Contraindication: Treatment Not Indicated VTE Drug Contraindication: N/A - Med Ordered Critical Care Time Critical Care Time (minutes): 60
[2021-03-27] MEDS: dilTIAZem HCL 60 MG TABLET G-TUBE (18:14)
[2021-03-28] VITALS (34 sets, daily range): BP systolic 94–124; BP diastolic 44–96; PULSE 72–109; RESP 12–34; TEMP 34–38.7; O2SAT 89–95; BMI 38.5
[2021-03-28] MEDS: methylPREDNISolone Sod Succ 125 MG/2 ML VIAL 60 MG IVPUSH ×2 (01:11→07:13)
[2021-03-28] MEDS: Sucralfate Oral Suspension 1 GM/10 ML ORAL.SUSP PO ×4 (01:12→19:22)
[2021-03-28] MEDS: dilTIAZem HCL 60 MG TABLET G-TUBE ×3 (01:12→16:31)
[2021-03-28] MEDS: propofoL 1,000 MG/100 ML VIAL 24 MG IVCONT ×6 (02:54→20:24)
[2021-03-28 05:43] LABS: VBG Base Excess 1.9 mmol/L; VBG HCO3 23 mmol/L (22-26); VBG pCO2 27 mmHg; VBG pH 7.53 (7.32-7.43); VBG pO2 47 mmHg
[2021-03-28 05:50] LABS: Hematocrit 25.2 % (37.0-47.0); Hemoglobin 8.7 g/dl (12.0-16.0); Mean Corpuscular HGB Conc 34.5 g/dl (31.0-35.0); Mean Corpuscular Hemoglobin 29.8 pg (27.0-33.0); Mean Corpuscular Volume 86.3 fL (80.0-98.0); Mean Platelet Volume 12.2 fL (9.4-12.3); Platelet Count 129 X10*3/uL (160-400); Red Blood Count 2.92 X10*6/uL (4.20-5.50); Red Cell Distribution Width 15.7 % (11.0-16.0)
[2021-03-28 05:53] LABS: Venous Blood Gas Refer to POC result
[2021-03-28 05:54] LABS: NRBC Pct Auto 4.9 /100WBC (0.0-0.2)
[2021-03-28 05:56] LABS: White Blood Count 35.9 X10*3/uL (4.8-10.8)
[2021-03-28] MEDS: fentaNYL citrate/NS 1,000 MCG/100 ML PLAST..BAG 10 MCG IVCONT (06:02)
[2021-03-28 06:03] LABS: Lactic Acid 1.2 mmol/L (0.5-2.0)
[2021-03-28 06:15] LABS: Alanine Aminotransferase 894 U/L (0-31); Albumin Level 2.7 g/dL (3.5-5.0); Alkaline Phosphatase 133 U/L (39-117); Anion Gap 18 (12-20); Aspartate Amino Transferase 155 U/L (5-31); Blood Urea Nitrogen 65 mg/dL (9-16); Calcium 7.9 mg/dL (8.4-10.2); Carbon Dioxide 22 mmol/L (22-29); Chloride 95 mmol/L (96-108); Creatinine Clr Calc Pharmacy 18.7; Estimated Glomerular Filt Rate 12; Glucose Random 270 mg/dL (60-115); Magnesium 1.8 mg/dL (1.6-2.6); Phosphorus 4.8 mg/dL (2.7-4.5); Potassium 3.3 mmol/L (3.3-5.1); Sodium 132 mmol/L (135-145); Total Protein 4.8 g/dL (6.5-8.0)
[2021-03-28 06:17] LABS: Troponin-I High Sensitivity 601.4 ng/L (<3.5-17.0)
[2021-03-28 06:34] LABS: B Type Natriuretic Peptide 7082 pg/mL (<100)
[2021-03-28] MEDS: Metoprolol Tartrate 12.5 MG HALFTAB PO ×2 (07:13→20:24)
[2021-03-28] MEDS: Atorvastatin Calcium 40 MG TABLET PO (07:13)
[2021-03-28] MEDS: Chlorhexidine Gluc Oral Rinse 15 ML MOUTHWASH BUCCAL ×3 (07:13→20:24)
[2021-03-28 07:18] LABS: Ferritin 7762 ng/mL (10-250); Procalcitonin 6.47 ng/mL
--- NOTE | 2021-03-28 09:17 | MHC.CLN ---
F/U PT CONTINUES WITH DAILY HD PT RECEIVING NEPRO AT MAX GOAL RATE 20ML/HR WITH 240ML FREE WATER FLUSHES Q 6 HOURS PROVIDES 864KCALS (1498KCALS WITH SEDATION; 23KCALS/KG BASED ON CBW), 39G PROTEIN (.7G/KG), 1309CC TOTAL FREE WATER FROM FORMULA AND FLUSHES (24ML/KG BASED ON IBW) CAN ADJUST FREE WATER NEEDED; NOTED TEMP 100.8 MONITOR TOLERANCE, RESIDUALS AND LYTES
--- NOTE | 2021-03-28 10:55 | PC.NURSE ---
Addendum entered by Gisele Sanchez RN 03/28/21 11:00: Pinpoint to left buttock not coccyx Original Note: Skin assessment completed. Patient has a stage 2 to sacrum and small pin point to coccyx. Triad applied covered with foam dressing and ABD pad placed near rectal tube.
[2021-03-28] MEDS: fentaNYL citrate/NS 1,000 MCG/100 ML PLAST..BAG 17.5 MCG IVCONT ×2 (13:17→18:31)
--- NOTE | 2021-03-28 13:54 | MHC.CLN ---
RE: CONSULT ADDED 30ML PROSOURCE X1 PER DAY VIA OG TUBE TO PROMOTE WOUND HEALING SEE ALSO FULL CLINICAL NUTRITION ASSESSMENT
--- NOTE | 2021-03-28 14:29 | PM.PNNEP ---
Subjective Subjective Date of Service: 03/28/21 Interval history: seen and examined vented Physical Exam Vital Signs: Vital Signs: Last Vital Signs Temp 100.9 F H 03/28/21 14:00 Pulse 81 03/28/21 14:00 Resp 26 H 03/28/21 14:00 BP 99/44 L 03/28/21 14:00 Pulse Ox 92 03/28/21 14:00 BMI result Body Mass Index 38.5 Const: General: ill appearing HENMT: Head: Yes normocephalic and Yes atraumatic Neck: Neck: Yes supple Resp: Auscultation: diminished lung sounds Cardio: Heart sounds: S1 normal heart sound present and S2 normal heart sound present GI: Palpation (GI): Soft to palpation and no guarding Extrem: General: Yes pedal edema Objective Data Labs CBC & Chem 7: 03/28/21 05:35 03/28/21 05:35 Labs: Laboratory Results - last 24 hr 03/28/21 03/28/21 03/28/21 05:35 05:35 05:35 WBC 35.9 H* RBC 2.92 L Hgb 8.7 L Hct 25.2 L MCV 86.3 MCH 29.8 MCHC 34.5 RDW 15.7 Plt Count 129 L MPV 12.2 Absolute Nucleated RBC 1.760 H Nucleated RBC % (auto) 4.9 H VBG pH VBG pCO2 VBG pO2 VBG HCO3 VBG O2 Saturation VBG Base Excess Sodium 132 L Potassium 3.3 Chloride 95 L Carbon Dioxide 22 Anion Gap 18 BUN 65 H Creatinine 3.80 H Estim Creat Clear Calc 18.7 Estimated GFR 12 Random Glucose 270 H Lactic Acid Calcium 7.9 L Phosphorus 4.8 H Magnesium 1.8 Ferritin 7762 H Total Bilirubin 1.0 AST 155 H ALT 894 H Alkaline Phosphatase 133 H Troponin I High Sens 601.4 H* D B-Natriuretic Peptide Total Protein 4.8 L Albumin 2.7 L Procalcitonin 03/28/21 03/28/21 03/28/21 05:35 05:35 05:36 WBC RBC Hgb Hct MCV MCH MCHC RDW Plt Count MPV Absolute Nucleated RBC Nucleated RBC % (auto) VBG pH VBG pCO2 VBG pO2 VBG HCO3 VBG O2 Saturation VBG Base Excess Sodium Potassium Chloride Carbon Dioxide Anion Gap BUN Creatinine Estim Creat Clear Calc Estimated GFR Random Glucose Lactic Acid 1.2 Calcium Phosphorus Magnesium Ferritin Total Bilirubin AST ALT Alkaline Phosphatase Troponin I High Sens B-Natriuretic Peptide 7082 H Total Protein Albumin Procalcitonin 6.47 03/28/21 05:36 WBC RBC Hgb Hct MCV MCH MCHC RDW Plt Count MPV Absolute Nucleated RBC Nucleated RBC % (auto) VBG pH 7.53 H VBG pCO2 27 VBG pO2 47 VBG HCO3 23 VBG O2 Saturation 75.0 VBG Base Excess 1.9 Sodium Potassium Chloride Carbon Dioxide Anion Gap BUN Creatinine Estim Creat Clear Calc Estimated GFR Random Glucose Lactic Acid Calcium Phosphorus Magnesium Ferritin Total Bilirubin AST ALT Alkaline Phosphatase Troponin I High Sens B-Natriuretic Peptide Total Protein Albumin Procalcitonin Microbiology Microbiology Results: Microbiology 03/24/21 16:49 Blood - Central Line Blood Culture - Preliminary No growth after 48 hours. 03/24/21 16:49 Blood - Central Line Blood Culture - Preliminary No growth after 48 hours. 03/24/21 16:50 Urine Catheterized - Witt Catheter Urine Culture - Final No growth. 03/18/21 19:37 Blood - Venous Blood Culture - Final No growth after 5 days. 03/18/21 19:37 Blood - Venous Blood Culture - Final Procedures Date of Service Date of Service: 03/28/21 Assessment & Plan Assessment and plan (1) JOAN (acute kidney injury): Status: Acute (2) COVID-19: Status: Acute (3) CKD (chronic kidney disease) stage 4, GFR 15-29 ml/min: Status: Acute Plan JOAN due to acute tubular injury in the setting of SARS COV 2 infection no proteinuria no obstruction known CKD baseline Scr 2-2.5 mg/dl REC HD tomorrow optimize volume status follow kidney function and electrolytes Time Spent With Patient Time: Total time spent is greater than 50% in coordination of care (as documented) at patient's floor/unit and/or counseling patient: Progress Note: Quality Stroke Does the patient have a stroke diagnosis?: No
--- NOTE | 2021-03-28 14:41 | P.PNCC_ITS ---
Subjective Subjective Date of Service: 03/28/21 Interval History: Ms. Galeas was admitted to the ICU on Mar 18 with acute respiratory failure. The patient is a 60 yo F with PMHx of COPD on 2 L of supplemental oxygen; lung cancer s/p ?palliative? XRT with curative intent that was completed 23 months ago, polysubstance abuse now on methadone, seizure disorder, CKD stage 4-5, previously declined HD, and CHF.? She?s had COVID vaccine shots x3. The patient lives with her boyfriend (Kodi Mahmood, one of her HCPs, cell [phone]) and her son.? She walks with a cane.? She needs help with dressing and bathing.? Her daughter Anabel, who is the other HCP (cell:? [phone]), tells me that her grandmother (the daughter?s grandmother), who?s 80 years old, is in better health than her mother (the patient). The patient was seen in the ED here on Mar 12 c/o SOB.? Dx?d with a COPD exacc.? (No CXR or COVID test done.)? Discharged with a Prednisone script. HISTORY OF PRESENT ILLNESS:? The patient was BIBA on 03/18/2021 with SOB and confusion.? ABG showed 7.45/37/124/+2.? CXR showed increased interstitial prominence bilaterally, and a new more focal hazy opacity in the left lower lobe.? COVID-19 test was positive.? BUN/creat 131/2.5 (baseline about 90/3.2).? D-dimer was 2300.? She was treated with empiric broad-spectrum antibiotics.? Later in the ED, she developed hypoxia refractory to NIV, and required intubation and ventilatory support.? She was admitted to ICU, and treated for COVID.? She was also heparinzed for possible PE bec of the rapidity of her desa turation in the ED.-- her renal indices precluded a CTPA.? Noncontrast CT Chest on Mar 19 showed empysema; small areas of dense opacification in the posterior lower lobes, R>L; with scattered small areas of groundglass attenuation in the upper lobes, L> R; suggestive of multifocal pneumonia and/or sequelae of aspiration.? Venous Duplex scan on 03/19 was negative Peak trop was 2800.? EKG showed no ischemic changes.? Echocardiogram on Mar 19 showed LVEF 30% with marked RWMAs.? The RV size was mod increased, with mod decreased RV fxn.? IVC was dilated w no insp collapse.? RVSP estimate 41mm. ?Last echo 2018 showed normal LV fxn, mild LVH, normal right heart, no valvular pathology. The patient?s FiO2 came down rapidly, and bec of that, COVID pneumonia was felt unlikely and COVID treatment was stopped.? The patient was extubated on 03/21/2021. ?She was sat?ing up to 98% on 2L NC.? Heparinization was stopped.? The patient?s renal indices cally progressively.? The patient remained significantly encephalopathic, thought likely secondary to uremia.? On Mar 23 she developed respiratory distress and hypoxemia thought secondary to aspiration and/or inability to protect the airway.? The patient was reintubated.? By my reading, the post-intubation chest/x-ray looks clearer than her admission CXR with just a mild RML infiltrate.? She was started on Unasyn.? Head CT scan that day showed no acute structural lesions to account for her encephalopathy. On Mar 24, her WBC bumped to 45.? Unasyn was changed to vanco and Zosyn.? A temporary dialysis catheter was placed.? She was started on dialysis on March 25.? Repeat echo that day showed near normal LV function, and normal RV size and function.? The IVC was normal sized with near full inspiratory collapse, suggesting that she might be hypovolemic.? We volume resuscitated her, which improved her BP.? That afternoon, the patient went into atrial flutter.? Two bolus doses of amiodarone did not help.? A diltiazem infusion put her back into sinus rhythm.? In consultation with ID, we changed her abx from vanco and Zosyn, to doxycycline.? WBC cally to 48.? All cultures negative, CDiff negative. Mar 26 she was putting out black stool, hemoccult positive.? Hb was down 3grams over 48hrs.? She underwent EGD by Dr. Queen.? Found gastritis with erosions that were likely the site of bleeding.? We put her on bid PPI, plus Carafate.? Finally obtained a lung perfusion study which showed very low prob of PE. Yesterday we did the first real sedation holiday.? She lightened to the point of grimacing to stimulation, but no eye opening and 100% unresponsive. No significant events overnight.? Her dialysis session today, the fourth one, went smoothly.? On my exam she is in no condition for a sedation holiday.? Currently sedated on propofol 50ug, fentanyl 175ug, and she?s on Levophed 0.1ug.? Tmax 101.7.? HR 107, SR..? BP 109/67.? On AC 16/400/25%/+5, RR is 31, Ve 13L, PIP 30, ETCO2 23, Sat 92%.? CVBG this morning 7.53/27/+1.? No JVD at 30?, chest CTA, w normal exp phase.? Abd nondistended, soft, benign.? She?s still putting out black stool.? She has about 1+ edema. LABORATORY DATA:? Below.? Notably, white count steady at 35, Hb down further to 8.7, plat down to 129, B/creat down to 65/3.8 after HD, bicarb up to 22, transaminases down further, Ferrtin down to 7700, PCT down to 6.4.? Trop down to 600, BNP up to 7082. MICROBIOLOGY:? No sputum sample able to be obtained.? U/A and BCs negative.? Her blood smear from Mar 25 was unremarkable for any sign of parasitic dz. SEROLOGY:? CDiff tox gene negative.? SARs CoV 2 IgG antibody positive on Mar 21. CXR today shows mild CHF (my reading). IMPRESSION: 1. Underlying emphysematous lung disease. 2. Chronic hypoxemic and hypercapnic lung disease.? Blood gasses show signif hypercarbia dating back at least two years. 3. Underlying CKD 4-5. 4. Significant baseline disability 5. Acute respiratory failure, the etiology of which is not clear.? Her admitting CXR was c/w almost anything.? Although her chest CT was not incon sistent with mild COVID pneumonia, the fact that she went from 100% FiO2 to 2L NC (which is her baseline) in a few days is thoroughly inconsistent with severe COVID pneumonia.? PE couldn?t be ruled out for sure on her echo of Mar 19, but duplex scans were negative, her RV was normal on the next echo, and perfusion scan Mar 26 was very low probability.? And her hypoxemia was not likely aspiration or bacterial or viral pneumonia, given the relatively clear CXR.? Gave her three days of Solu-Medrol 60mg tid.? Her FiO2 is way down now, I?ll stop the rhoids. 6. COVID positive.? As noted, she doesn?t have COVID pneumonia.? Her serum IgG was positive on Mar 21.? So her infection date was no later than about Mar 07.? It?s almost a certainty that she?s post viral now. 7. Biventricular heart failure on echo of Mar 19.? Undetermined etiology, but her echo has pretty much normalized.? Her BNP today has bumped significantly to 7000 and CXR shows mild failure.? We?ll take off fluids in the next HD session. 8. ?ACS.? Initial troponins had no accompanying EKG changes, but the trop bump on 03/26 had new T wave inversions.? So we added statin and metoprolol.? Unable to give him heparin or aspirin because of the GI bleeding.? Could hypothesize that this is COVID mycocarditis, arturo given the troponin elevations.? But the CMOP resolved way too early for that. 9. Hypotension w Shock.? Etiology undetermined.? Could be sepsis (arturo with the WBC, fever, and lactate), but cultures were negative, no source.? Her BP definitely responded to volume. 10. Acute on chronic renal failure.? Undoubtedly 2? ATN.? Plan HD daily this week. 11. Metabolic encephalopathy.? Presumably 2? uremia, but she?s not waking up even with the BUN way down.? Could be COVID encephalopathy.? She?ll need an MRI if she doesn?t wake up with the next sedation holiday. 12. ID.? Fever and marked leukocytosis.?? Recultured, so far negative.? Stool negative for CDiff.? The high ferritin suggested parasitic dz, but the blood smear yest was negative. ?Ferritin is now coming down.? Legionella ag is pending.? HIV and hepatitis panels were neg.? Stopped the doxycycline yesterday but I?m going to restart it today emprically. 13. Aflutter.? Resolved with diltiazem.? Added oral diltiazem. 14. Transaminase elevations coming down.? Suggestive of shock liver. 15. UGI bleed.? 2? stress gastritis.? Keeping her on bid PPI and Carafate. 16. Nutrition:? Started tube feeds yesterday.? On full dose Nepro. 17. DVT prophylaxis.? Seq Teds only.? Can?t use anticoags bec of GI bleed and continued Hb loss. Critical Care Time (minutes): 60 Physical Exam Vital Signs: Vital Signs: Last Vital Signs Temp 100.9 F H 03/28/21 14:00 Pulse 81 03/28/21 14:00 Resp 26 H 03/28/21 14:00 BP 99/44 L 03/28/21 14:00 Pulse Ox 92 03/28/21 14:00 BMI result Body Mass Index 38.5 Objective Data Labs CBC & Chem 7: 03/28/21 05:35 03/28/21 05:35 Labs: Laboratory Results - last 24 hr 03/28/21 03/28/21 03/28/21 05:35 05:35 05:35 WBC 35.9 H* RBC 2.92 L Hgb 8.7 L Hct 25.2 L MCV 86.3 MCH 29.8 MCHC 34.5 RDW 15.7 Plt Count 129 L MPV 12.2 Absolute Nucleated RBC 1.760 H Nucleated RBC % (auto) 4.9 H VBG pH VBG pCO2 VBG pO2 VBG HCO3 VBG O2 Saturation VBG Base Excess Sodium 132 L Potassium 3.3 Chloride 95 L Carbon Dioxide 22 Anion Gap 18 BUN 65 H Creatinine 3.80 H Estim Creat Clear Calc 18.7 Estimated GFR 12 Random Glucose 270 H Lactic Acid Calcium 7.9 L Phosphorus 4.8 H Magnesium 1.8 Ferritin 7762 H Total Bilirubin 1.0 AST 155 H ALT 894 H Alkaline Phosphatase 133 H Troponin I High Sens 601.4 H* D B-Natriuretic Peptide Total Protein 4.8 L Albumin 2.7 L Procalcitonin 03/28/21 03/28/21 03/28/21 05:35 05:35 05:36 WBC RBC Hgb Hct MCV MCH MCHC RDW Plt Count MPV Absolute Nucleated RBC Nucleated RBC % (auto) VBG pH VBG pCO2 VBG pO2 VBG HCO3 VBG O2 Saturation VBG Base Excess Sodium Potassium Chloride Carbon Dioxide Anion Gap BUN Creatinine Estim Creat Clear Calc Estimated GFR Random Glucose Lactic Acid 1.2 Calcium Phosphorus Magnesium Ferritin Total Bilirubin AST ALT Alkaline Phosphatase Troponin I High Sens B-Natriuretic Peptide 7082 H Total Protein Albumin Procalcitonin 6.47 03/28/21 05:36 WBC RBC Hgb Hct MCV MCH MCHC RDW Plt Count MPV Absolute Nucleated RBC Nucleated RBC % (auto) VBG pH 7.53 H VBG pCO2 27 VBG pO2 47 VBG HCO3 23 VBG O2 Saturation 75.0 VBG Base Excess 1.9 Sodium Potassium Chloride Carbon Dioxide Anion Gap BUN Creatinine Estim Creat Clear Calc Estimated GFR Random Glucose Lactic Acid Calcium Phosphorus Magnesium Ferritin Total Bilirubin AST ALT Alkaline Phosphatase Troponin I High Sens B-Natriuretic Peptide Total Protein Albumin Procalcitonin Microbiology Microbiology Results: Microbiology 03/24/21 16:49 Blood - Central Line Blood Culture - Preliminary No growth after 48 hours. 03/24/21 16:49 Blood - Central Line Blood Culture - Preliminary No growth after 48 hours. 03/24/21 16:50 Urine Catheterized - Witt Catheter Urine Culture - Final No growth. 03/18/21 19:37 Blood - Venous Blood Culture - Final No growth after 5 days. 03/18/21 19:37 Blood - Venous Blood Culture - Final Quality Stroke Does the patient have a stroke diagnosis?: No VTE Prior VTE?: No VTE Risk Level:: Medical - moderate - high VTE Device Contraindication: Treatment Not Indicated VTE Drug Contraindication: N/A - Med Ordered
[2021-03-28] MEDS: Doxycycline Hyclate 100 MG in 0.9 % Sodium Chloride 250 ML 166.67 MG IV (16:31)
[2021-03-28] MEDS: fentaNYL citrate/NS 1,000 MCG/100 ML PLAST..BAG 20 MCG IVCONT (23:00)
[2021-03-29] VITALS (47 sets, daily range): BP systolic 70–152; BP diastolic 23–80; PULSE 91–110; RESP 21–27; TEMP 34.1–38; O2SAT 92–95; BMI 38.7
[2021-03-29] MEDS: propofoL 1,000 MG/100 ML VIAL 24 MG IVCONT ×7 (00:05→22:19)
[2021-03-29] MEDS: dilTIAZem HCL 60 MG TABLET G-TUBE ×3 (00:05→16:51)
[2021-03-29] MEDS: Doxycycline Hyclate 100 MG in 0.9 % Sodium Chloride 250 ML 166.67 MG IV ×2 (02:15→15:03)
[2021-03-29] MEDS: Sucralfate Oral Suspension 1 GM/10 ML ORAL.SUSP PO ×4 (02:15→19:28)
[2021-03-29] MEDS: fentaNYL citrate/NS 1,000 MCG/100 ML PLAST..BAG 20 MCG IVCONT ×5 (02:57→22:19)
[2021-03-29 05:27] LABS: Venous Blood Gas Refer to POC result
[2021-03-29 05:35] LABS: Hematocrit 25.4 % (37.0-47.0); Hemoglobin 8.6 g/dl (12.0-16.0); Mean Corpuscular HGB Conc 33.9 g/dl (31.0-35.0); Mean Corpuscular Hemoglobin 29.2 pg (27.0-33.0); Mean Corpuscular Volume 86.1 fL (80.0-98.0); Mean Platelet Volume 12.6 fL (9.4-12.3); NRBC Pct Auto 2.8 /100WBC (0.0-0.2); Platelet Count 130 X10*3/uL (160-400); Red Blood Count 2.95 X10*6/uL (4.20-5.50)
[2021-03-29 05:37] LABS: White Blood Count 35.1 X10*3/uL (4.8-10.8)
[2021-03-29 05:38] LABS: VBG Base Excess -4.5 mmol/L; VBG HCO3 19 mmol/L (22-26); VBG pCO2 29 mmHg; VBG pH 7.41 (7.32-7.43); VBG pO2 49 mmHg
[2021-03-29 05:46] LABS: Alanine Aminotransferase 580 U/L (0-31); Albumin Level 2.7 g/dL (3.5-5.0); Alkaline Phosphatase 143 U/L (39-117); Anion Gap 23 (12-20); Aspartate Amino Transferase 108 U/L (5-31); Bilirubin Total 0.8 mg/dL (0.0-1.0); Blood Urea Nitrogen 94 mg/dL (9-16); Calcium 8.1 mg/dL (8.4-10.2); Carbon Dioxide 18 mmol/L (22-29); Chloride 96 mmol/L (96-108); Creatinine Clr Calc Pharmacy 14.3; Estimated Glomerular Filt Rate 9; Glucose Random 244 mg/dL (60-115); Lactate Dehydrogenase 847 U/L (122-220); Magnesium 1.8 mg/dL (1.6-2.6); Phosphorus 7.5 mg/dL (2.7-4.5); Potassium 3.5 mmol/L (3.3-5.1); Sodium 133 mmol/L (135-145); Total Protein 5.1 g/dL (6.5-8.0)
[2021-03-29 05:51] LABS: D Dimer High Sensitivity 1068 NG/ML
[2021-03-29 06:01] LABS: Procalcitonin 5.31 ng/mL
[2021-03-29 06:07] LABS: B Type Natriuretic Peptide 6976 pg/mL (<100)
[2021-03-29 06:09] LABS: Ferritin 4720 ng/mL (10-250)
[2021-03-29] MEDS: Chlorhexidine Gluc Oral Rinse 15 ML MOUTHWASH BUCCAL ×3 (11:38→19:28)
[2021-03-29] MEDS: Atorvastatin Calcium 40 MG TABLET PO (11:39)
[2021-03-29] MEDS: Metoprolol Tartrate 12.5 MG HALFTAB PO ×2 (11:39→19:28)
--- NOTE | 2021-03-29 13:12 | PM.PNNEP ---
Subjective Subjective Date of Service: 03/29/21 Interval history: seen and examined vented had HD earlier today -3.7 L) Physical Exam Vital Signs: Vital Signs: Last Vital Signs Temp 99.5 F 03/29/21 13:00 Pulse 93 03/29/21 13:00 Resp 25 H 03/29/21 13:00 BP 126/76 03/29/21 13:00 Pulse Ox 94 03/29/21 13:00 BMI result Body Mass Index 38.7 Const: General: ill appearing HENMT: Head: Yes normocephalic and Yes atraumatic Neck: Neck: Yes supple Resp: Auscultation: diminished lung sounds Cardio: Heart sounds: S1 normal heart sound present and S2 normal heart sound present GI: Palpation (GI): Soft to palpation and no guarding Extrem: General: Yes pedal edema Objective Data Labs CBC & Chem 7: 03/29/21 05:18 03/29/21 05:18 Labs: Laboratory Results - last 24 hr 03/29/21 03/29/21 03/29/21 05:18 05:18 05:18 WBC 35.1 H* RBC 2.95 L Hgb 8.6 L Hct 25.4 L MCV 86.1 MCH 29.2 MCHC 33.9 RDW 16.0 Plt Count 130 L MPV 12.6 H Absolute Nucleated RBC 0.980 H Nucleated RBC % (auto) 2.8 H D-Dimer High Sensitivty 1068 VBG pH VBG pCO2 VBG pO2 VBG HCO3 VBG O2 Saturation VBG Base Excess Sodium 133 L Potassium 3.5 Chloride 96 Carbon Dioxide 18 L Anion Gap 23 H BUN 94 H D Creatinine 4.99 H* Estim Creat Clear Calc 14.3 Estimated GFR 9 Random Glucose 244 H Calcium 8.1 L Phosphorus 7.5 H Magnesium 1.8 Ferritin 4720 H Total Bilirubin 0.8 AST 108 H ALT 580 H Alkaline Phosphatase 143 H Lactate Dehydrogenase 847 H B-Natriuretic Peptide Total Protein 5.1 L Albumin 2.7 L Procalcitonin 03/29/21 03/29/21 03/29/21 05:18 05:18 05:31 WBC RBC Hgb Hct MCV MCH MCHC RDW Plt Count MPV Absolute Nucleated RBC Nucleated RBC % (auto) D-Dimer High Sensitivty VBG pH 7.41 VBG pCO2 29 VBG pO2 49 VBG HCO3 19 L VBG O2 Saturation 76.0 VBG Base Excess -4.5 Sodium Potassium Chloride Carbon Dioxide Anion Gap BUN Creatinine Estim Creat Clear Calc Estimated GFR Random Glucose Calcium Phosphorus Magnesium Ferritin Total Bilirubin AST ALT Alkaline Phosphatase Lactate Dehydrogenase B-Natriuretic Peptide 6976 H Total Protein Albumin Procalcitonin 5.31 Microbiology Microbiology Results: Microbiology 03/24/21 16:49 Blood - Central Line Blood Culture - Preliminary No growth after 48 hours. 03/24/21 16:49 Blood - Central Line Blood Culture - Preliminary No growth after 48 hours. 03/24/21 16:50 Urine Catheterized - Witt Catheter Urine Culture - Final No growth. 03/18/21 19:37 Blood - Venous Blood Culture - Final No growth after 5 days. 03/18/21 19:37 Blood - Venous Blood Culture - Final Procedures Date of Service Date of Service: 03/29/21 Assessment & Plan Assessment and plan (1) JOAN (acute kidney injury): Status: Acute (2) COVID-19: Status: Acute (3) CKD (chronic kidney disease) stage 4, GFR 15-29 ml/min: Status: Acute Plan s/p HD (-3.7 L) JOAN due to acute tubular injury in the setting of SARS COV 2 infection no proteinuria no obstruction known CKD baseline Scr 2-2.5 mg/dl REC continue HD to optimize volume status will reassess tomorrow follow kidney function and electrolytes Time Spent With Patient Time: Total time spent is greater than 50% in coordination of care (as documented) at patient's floor/unit and/or counseling patient: Progress Note: Quality Stroke Does the patient have a stroke diagnosis?: No
--- NOTE | 2021-03-29 14:42 | P.PNCC_ITS ---
Subjective Subjective Date of Service: 03/29/21 Interval History: Ms. Galeas was admitted to the ICU on Mar 18 with acute respiratory failure. The patient is a 60 yo F with PMHx of COPD on 2 L of supplemental oxygen; lung cancer s/p ?palliative? XRT with curative intent that was completed 23 months ago, polysubstance abuse now on methadone, seizure disorder, CKD stage 4-5, previously declined HD, and CHF.? She?s had COVID vaccine shots x3. The patient lives with her boyfriend (Kodi Mahmood, one of her HCPs, cell [phone]) and her son.? She walks with a cane.? She needs help with dressing and bathing.? Her daughter Anabel, who is the other HCP (cell:? [phone]), tells me that her grandmother (the daughter?s grandmother), who?s 80 years old, is in better health than her mother (the patient). The patient was seen in the ED here on Mar 12 c/o SOB.? Dx?d with a COPD exacc.? (No CXR or COVID test done.)? Discharged with a Prednisone script. HISTORY OF PRESENT ILLNESS:? The patient was BIBA on 03/18/2021 with SOB and confusion.? ABG showed 7.45/37/124/+2.? CXR showed increased interstitial prominence bilaterally, and a new more focal hazy opacity in the left lower lobe.? COVID-19 test was positive.? BUN/creat 131/2.5 (baseline about 90/3.2).? D-dimer was 2300.? She was treated with empiric broad-spectrum antibiotics.? Later in the ED, she developed hypoxia refractory to NIV, and required intubation and ventilatory support.? She was admitted to ICU, and treated for COVID.? She was also heparinzed for possible PE bec of the rapidity of her desaturation in the ED.-- her renal indices precluded a CTPA.? Noncontrast CT Chest on Mar 19 showed empysema; small areas of dense opacification in the posterior lower lobes, R>L; with scattered small areas of groundglass attenuation in the upper lobes, L> R; suggestive of multifocal pneumonia and/or sequelae of aspiration.? Venous Duplex scan on 03/19 was negative Peak trop was 2800.? EKG showed no ischemic changes.? Echocardiogram on Mar 19 showed LVEF 30% with marked RWMAs.? The RV size was mod increased, with mod decreased RV fxn.? IVC was dilated w no insp collapse.? RVSP estimate 41mm. ?Last echo 2018 showed normal LV fxn, mild LVH, normal right heart, no valvular pathology. The patient?s FiO2 came down rapidly, and bec of that, COVID pneumonia was felt unlikely and COVID treatment was stopped.? The patient was extubated on 03/21/2021. ?She was sat?ing up to 98% on 2L NC.? Heparinization was stopped.? The patient?s renal indices cally progressively.? The patient remained significantly encephalopathic, thought likely secondary to uremia.? On Mar 23 she developed respiratory distress and hypoxemia thought secondary to aspiration and/or inability to protect the airway.? The patient was reintubated.? By my reading, the post-intubation chest/x-ray looks clearer than her admission CXR with just a mild RML infiltrate.? She was started on Unasyn.? Head CT scan that day showed no acute structural lesions to account for her encephalopathy. On Mar 24, her WBC bumped to 45.? Unasyn was changed to vanco and Zosyn.? A temporary dialysis catheter was placed.? She was started on dialysis on March 25.? Repeat echo that day showed near normal LV function, and normal RV size and function.? The IVC was normal sized with near full inspiratory collapse, suggesting that she might be hypovolemic.? We volume resuscitated her, which improved her BP.? That afternoon, the patient went into atrial flutter.? Two bolus doses of amiodarone did not help.? A diltiazem infusion put her back into sinus rhythm.? In consultation with ID, we changed her abx from vanco and Zosyn, to doxycycline.? WBC cally to 48.? All cultures negative, CDiff negative. Mar 26 she was putting out black stool, hemoccult positive.? Hb was down 3grams over 48hrs.? She underwent EGD by Dr. Queen.? Found gastritis with erosions that were likely the site of bleeding.? We put her on bid PPI, plus Carafate.? Finally obtained a lung perfusion study which showed very low prob of PE. On Mar 27 we did the first real sedation holiday.? She lightened to the point of grimacing to stimulation, but no eye opening and 100% unresponsive.? Yesterday she was too tachypneic to try again.? I restarted her Doxycycline No significant events overnight.? Her dialysis session today, the fifth one, went smoothly, altho we did have to go up a bit on the Levophed driip.? Currently sedated on propofol 50ug, fentanyl 200ug, and she?s on Levophed 0.2ug.? Afebrile so far today.? HR 95, SR..? BP 113/73.? On AC 16/400/25%/+5, RR is 22, Ve 8.3L, way down from yesterday.? PIP 25, ETCO2 26, Sat 94%.? CVBG this morning 7.41/29/-4.? No JVD at 30?, chest CTA, w normal exp phase.? Abd nondistended, soft, benign.? She has about 1+ edema. Propofol was turned off at 12:45.? After about 2 1/2 hours, she was opening eyes and grimacing to stimulation, but still 100% noninteractive. LABORATORY DATA:? Below.? Notably, white count steady at 35, Hb steady at 8.6, plat steady at 130, B/creat 99/4.9 (from 65/3.8 yesterday), transaminases down further, Ferrtin down to 4700, PCT down to 5.3.? BNP steady at 7000.? D-dimer down to 1000, MICROBIOLOGY:? No sputum sample able to be obtained.? U/A and BCs negative.? Her blood smear from Mar 25 was unremarkable for any sign of parasitic dz. SEROLOGY:? CDiff tox gene negative.? SARs CoV 2 IgG antibody positive on Mar 21. CXR today shows mild CHF (my reading). IMPRESSION: 1. Underlying emphysematous lung disease. 2. Chronic hypoxemic and hypercapnic lung disease.? Blood gasses show signif hypercarbia dating back at least two years. 3. Underlying CKD 4-5. 4. Significant baseline disability 5. Acute respiratory failure, the etiology of which is not clear.? Her admitting CXR was c/w almost anything.? Although her chest CT was not inconsistent with mild COVID pneumonia, the fact that she went from 100% FiO2 to 2L NC (which is her baseline) in a few days is thoroughly inconsistent with severe COVID pneumonia.? PE couldn?t be ruled out for sure on her echo of Mar 19, but duplex scans were negative, her RV was normal on the next echo, and perfusion scan Mar 26 was very low probability.? And her hypoxemia was not likely aspiration or bacterial or viral pneumonia, given the relatively clear CXR.? Gave her three days of Solu-Medrol 60mg tid, and her FiO2 went down to 25%, so I stopped the rhoids yesterday. 6. COVID positive.? As noted, she doesn?t have COVID pneumonia.? Her serum IgG was positive on Mar 21.? So her infection date was no later than about Mar 07.? It?s almost a certainty that she?s post viral now. 7. Biventricular heart failure on echo of Mar 19.? Undetermined etiology, but her echo pretty much normalized by Mar 25.? Her BNP yesterday was bumped significantly to 7000 and CXR showed mild failure -- possibly from the fluid we gave her on Mar 25-.? We took off 3.9 L during HD today. 8. ?ACS.? Initial troponins had no accompanying EKG changes, but the trop bump on 03/26 had new T wave inversions.? So we added statin and metoprolol.? Unable to give her heparin or aspirin because of the GI bleeding.? Could hypothesize that this is COVID mycocarditis, arturo given the troponin elevations.? But I would think that the CMOP resolved way too early for that. 9. Hypotension w Shock.? Etiology undetermined.? Could be sepsis (arturo with the WBC, fever, and lactate), but cultures are negative, no source.? Her BP definitely responded to volume, but we haven?t been able to get her off the Levophed. 10. Acute on chronic renal failure.? Undoubtedly 2? ATN.? Plan HD daily this w beaver. 11. Metabolic encephalopathy.? Presumably 2? uremia, but she hasn?t woken up that much even w the BUN way down.? BUN was back up to 99 this morning.? Could be COVID encephalopathy.? 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 12. ID.? Fever and marked leukocytosis.?? Recultured, so far negative.? Stool negative for CDiff.? The high ferritin suggested parasitic dz, but the blood smear yest was negative. ?Ferritin and PCT are now coming down.? HIV and hepatitis panels were neg.? Legionella antigen is pending.? I?ll continue the emiric doxycycline another couple of days. 13. Aflutter.? Resolved with diltiazem.? Added oral diltiazem. 14. Transaminase elevations coming down.? Suggestive of shock liver. 15. UGI bleed.? 2? stress gastritis.? Keeping her on bid PPI and Carafate. 16. Nutrition:? On full dose Nepro. 17. DVT prophylaxis.? Seq Teds only.? Can?t use anticoags bec of GI bleed and continued Hb loss.? If Hb is stable tomorrow, I?ll restart her DVT prophylaxis dose heparin Critical Care Time (minutes): 60 Physical Exam Vital Signs: Vital Signs: Last Vital Signs Temp 100.0 F 03/29/21 14:00 Pulse 91 03/29/21 14:00 Resp 23 H 03/29/21 14:00 BP 131/78 03/29/21 14:00 Pulse Ox 93 03/29/21 14:00 BMI result Body Mass Index 38.7 Objective Data Labs CBC & Chem 7: 03/29/21 05:18 03/29/21 05:18 Labs: Laboratory Results - last 24 hr 03/29/21 03/29/21 03/29/21 05:18 05:18 05:18 WBC 35.1 H* RBC 2.95 L Hgb 8.6 L Hct 25.4 L MCV 86.1 MCH 29.2 MCHC 33.9 RDW 16.0 Plt Count 130 L MPV 12.6 H Absolute Nucleated RBC 0.980 H Nucleated RBC % (auto) 2.8 H D-Dimer High Sensitivty 1068 VBG pH VBG pCO2 VBG pO2 VBG HCO3 VBG O2 Saturation VBG Base Excess Sodium 133 L Potassium 3.5 Chloride 96 Carbon Dioxide 18 L Anion Gap 23 H BUN 94 H D Creatinine 4.99 H* Estim Creat Clear Calc 14.3 Estimated GFR 9 Random Glucose 244 H Calcium 8.1 L Phosphorus 7.5 H Magnesium 1.8 Ferritin 4720 H Total Bilirubin 0.8 AST 108 H ALT 580 H Alkaline Phosphatase 143 H Lactate Dehydrogenase 847 H B-Natriuretic Peptide Total Protein 5.1 L Albumin 2.7 L Procalcitonin 03/29/21 03/29/21 03/29/21 05:18 05:18 05:31 WBC RBC Hgb Hct MCV MCH MCHC RDW Plt Count MPV Absolute Nucleated RBC Nucleated RBC % (auto) D-Dimer High Sensitivty VBG pH 7.41 VBG pCO2 29 VBG pO2 49 VBG HCO3 19 L VBG O2 Saturation 76.0 VBG Base Excess -4.5 Sodium Potassium Chloride Carbon Dioxide Anion Gap BUN Creatinine Estim Creat Clear Calc Estimated GFR Random Glucose Calcium Phosphorus Magnesium Ferritin Total Bilirubin AST ALT Alkaline Phosphatase Lactate Dehydrogenase B-Natriuretic Peptide 6976 H Total Protein Albumin Procalcitonin 5.31 Microbiology Microbiology Results: Microbiology 03/24/21 16:49 Blood - Central Line Blood Culture - Preliminary No growth after 48 hours. 03/24/21 16:49 Blood - Central Line Blood Culture - Preliminary No growth after 48 hours. 03/24/21 16:50 Urine Catheterized - Witt Catheter Urine Culture - Final No growth. 03/18/21 19:37 Blood - Venous Blood Culture - Final No growth after 5 days. 03/18/21 19:37 Blood - Venous Blood Culture - Final Quality Stroke Does the patient have a stroke diagnosis?: No VTE Prior VTE?: No VTE Risk Level:: Medical - moderate - high VTE Device Contraindication: Treatment Not Indicated VTE Drug Contraindication: N/A - Med Ordered Critical Care Time Critical Care Time (minutes): 60
[2021-03-29 16:51] LABS: Glucose, Whole Blood 193 mg/dL (60-115)
[2021-03-29] MEDS: Magnesium Sulfate/H2O 2 GM/50 ML PIGGYBACK IV (16:51)
[2021-03-29] MEDS: Insulin Lispro 100 UNIT/ML 3 ML VIAL SUBCUT (16:51)
[2021-03-29 23:58] LABS: Glucose, Whole Blood 147 mg/dL (60-115)
[2021-03-30] VITALS (34 sets, daily range): BP systolic 85–132; BP diastolic 47–101; PULSE 82–113; RESP 21–26; TEMP 34–38; O2SAT 92–98; BMI 37.9
[2021-03-30] MEDS: dilTIAZem HCL 60 MG TABLET G-TUBE ×3 (00:33→16:48)
[2021-03-30] MEDS: Sucralfate Oral Suspension 1 GM/10 ML ORAL.SUSP PO ×4 (00:33→20:05)
[2021-03-30] MEDS: propofoL 1,000 MG/100 ML VIAL 24 MG IVCONT ×3 (01:20→09:00)
[2021-03-30] MEDS: Doxycycline Hyclate 100 MG in 0.9 % Sodium Chloride 250 ML 166.67 MG IV ×2 (02:34→14:24)
[2021-03-30] MEDS: fentaNYL citrate/NS 1,000 MCG/100 ML PLAST..BAG 20 MCG IVCONT ×3 (02:34→11:55)
[2021-03-30 05:25] LABS: Glucose, Whole Blood 132 mg/dL (60-115)
[2021-03-30 05:38] LABS: Hematocrit 25.1 % (37.0-47.0); Hemoglobin 8.5 g/dl (12.0-16.0); Mean Corpuscular HGB Conc 33.9 g/dl (31.0-35.0); Mean Corpuscular Hemoglobin 29.6 pg (27.0-33.0); Mean Corpuscular Volume 87.5 fL (80.0-98.0); Mean Platelet Volume 12.2 fL (9.4-12.3); Platelet Count 129 X10*3/uL (160-400); Red Blood Count 2.87 X10*6/uL (4.20-5.50); Red Cell Distribution Width 17.6 % (11.0-16.0)
[2021-03-30 05:41] LABS: VBG Base Excess 0.4 mmol/L; VBG HCO3 22 mmol/L (22-26); VBG pCO2 27 mmHg; VBG pH 7.51 (7.32-7.43); VBG pO2 45 mmHg
[2021-03-30 05:56] LABS: Venous Blood Gas Refer to POC result
[2021-03-30 06:10] LABS: Anion Gap 20 (12-20); Blood Urea Nitrogen 75 mg/dL (9-16); Calcium 7.9 mg/dL (8.4-10.2); Carbon Dioxide 19 mmol/L (22-29); Chloride 97 mmol/L (96-108); Creatinine Clr Calc Pharmacy 16.2; Estimated Glomerular Filt Rate 10; Glucose Random 133 mg/dL (60-115); Magnesium 2.1 mg/dL (1.6-2.6); Phosphorus 5.6 mg/dL (2.7-4.5); Potassium 3.4 mmol/L (3.3-5.1); Sodium 133 mmol/L (135-145)
[2021-03-30] MEDS: Chlorhexidine Gluc Oral Rinse 15 ML MOUTHWASH BUCCAL ×3 (07:53→20:05)
[2021-03-30] MEDS: Atorvastatin Calcium 40 MG TABLET PO (07:53)
[2021-03-30] MEDS: Metoprolol Tartrate 12.5 MG HALFTAB PO ×2 (07:53→20:05)
--- NOTE | 2021-03-30 09:48 | PM.PNNEP ---
Subjective Subjective Date of Service: 03/30/21 Interval history: seen and examined vented had HD yesterday Physical Exam Vital Signs: Vital Signs: Last Vital Signs Temp 99.1 F 03/30/21 08:56 Pulse 82 03/30/21 08:56 Resp 21 H 03/30/21 08:56 BP 97/52 L 03/30/21 08:56 Pulse Ox 94 03/30/21 08:56 BMI result Body Mass Index 37.9 Const: General: ill appearing HENMT: Head: Yes normocephalic and Yes atraumatic Neck: Neck: Yes supple Resp: Auscultation: diminished lung sounds Cardio: Heart sounds: S1 normal heart sound present and S2 normal heart sound present GI: Palpation (GI): Soft to palpation and no guarding Extrem: General: Yes pedal edema Objective Data Labs CBC & Chem 7: 03/30/21 05:30 03/30/21 05:30 Labs: Laboratory Results - last 24 hr 03/29/21 03/29/21 03/30/21 16:46 23:54 05:21 WBC RBC Hgb Hct MCV MCH MCHC RDW Plt Count MPV Absolute Nucleated RBC Nucleated RBC % (auto) VBG pH VBG pCO2 VBG pO2 VBG HCO3 VBG O2 Saturation VBG Base Excess Sodium Potassium Chloride Carbon Dioxide Anion Gap BUN Creatinine Estim Creat Clear Calc Estimated GFR POC Glucose 193 H 147 H 132 H Random Glucose Calcium Phosphorus Magnesium 03/30/21 03/30/21 03/30/21 05:30 05:30 05:33 WBC 20.0 H RBC 2.87 L Hgb 8.5 L Hct 25.1 L MCV 87.5 MCH 29.6 MCHC 33.9 RDW 17.6 H Plt Count 129 L MPV 12.2 Absolute Nucleated RBC 1.010 H Nucleated RBC % (auto) 5.0 H VBG pH 7.51 H VBG pCO2 27 VBG pO2 45 VBG HCO3 22 VBG O2 Saturation 67.0 VBG Base Excess 0.4 Sodium 133 L Potassium 3.4 Chloride 97 Carbon Dioxide 19 L Anion Gap 20 BUN 75 H Creatinine 4.33 H* Estim Creat Clear Calc 16.2 Estimated GFR 10 POC Glucose Random Glucose 133 H Calcium 7.9 L Phosphorus 5.6 H Magnesium 2.1 Microbiology Microbiology Results: Microbiology 03/24/21 16:49 Blood - Central Line Blood Culture - Final No growth after 5 days. 03/24/21 16:49 Blood - Central Line Blood Culture - Final No growth after 5 days. 03/24/21 16:50 Urine Catheterized - Witt Catheter Urine Culture - Final No growth. 03/18/21 19:37 Blood - Venous Blood Culture - Final No growth after 5 days. 03/18/21 19:37 Blood - Venous Blood Culture - Final Procedures Date of Service Date of Service: 03/30/21 Assessment & Plan Assessment and plan (1) JOAN (acute kidney injury): Status: Acute (2) COVID-19: Status: Acute (3) CKD (chronic kidney disease) stage 4, GFR 15-29 ml/min: Status: Acute Plan JOAN due to acute tubular injury in the setting of SARS COV 2 infection no proteinuria no obstruction known CKD baseline Scr 2-2.5 mg/dl REC HD in am to optimize volume status follow kidney function and electrolytes Time Spent With Patient Time: Total time spent is greater than 50% in coordination of care (as documented) at patient's floor/unit and/or counseling patient: Progress Note: Quality Stroke Does the patient have a stroke diagnosis?: No
[2021-03-30 11:27] LABS: Glucose, Whole Blood 120 mg/dL (60-115)
[2021-03-30] MEDS: fentaNYL citrate/NS 1,000 MCG/100 ML PLAST..BAG 15 MCG IVCONT ×2 (16:48→22:13)
[2021-03-30 17:56] LABS: Glucose, Whole Blood 114 mg/dL (60-115)
--- NOTE | 2021-03-30 18:19 | P.PNCC_ITS ---
Subjective Subjective Date of Service: 03/30/21 Interval History: Ms. Galeas was admitted to the ICU on Mar 18 with acute respiratory failure. The patient is a 60 yo F with PMHx of COPD on 2 L of supplemental oxygen; lung cancer s/p ?palliative? XRT with curative intent that was completed 23 months ago, polysubstance abuse now on methadone, seizure disorder, CKD stage 4-5, previously declined HD, and CHF.? She?s had COVID vaccine shots x3. The patient lives with her boyfriend (Kodi Mahmood, one of her HCPs, cell [phone]) and her son.? She walks with a cane.? She needs help with dressing and bathing.? Her daughter Anabel, who is the other HCP (cell:? [phone]), tells me that her grandmother (the daughter?s grandmother), who?s 80 years old, is in better health than her mother (the patient). The patient was seen in the ED here on Mar 12 c/o SOB.? Dx?d with a COPD exacc.? (No CXR or COVID test done.)? Discharged with a Prednisone script. HISTORY OF PRESENT ILLNESS:? The patient was BIBA on 03/18/2021 with SOB and confusion.? ABG showed 7.45/37/124/+2.? CXR showed increased interstitial prominence bilaterally, and a new more focal hazy opacity in the left lower lobe.? COVID-19 test was positive.? BUN/creat 131/2.5 (baseline about 90/3.2).? D-dimer was 2300.? She was treated with empiric broad-spectrum antibiotics.? Later in the ED, she developed hypoxia refractory to NIV, and required intubation and ventilatory support.? She was admitted to ICU, and treated for COVID.? She was also heparinzed for possible PE bec of the rapidity of her desaturation in the ED.-- her renal indices precluded a CTPA.? Noncontrast CT Chest on Mar 19 showed empysema; small areas of dense opacification in the posterior lower lobes, R>L; with scattered small areas of groundglass attenuation in the upper lobes, L> R; suggestive of multifocal pneumonia and/or sequelae of aspiration.? Venous Duplex scan on 03/19 was negative Peak trop was 2800.? EKG showed no ischemic changes.? Echocardiogram on Mar 19 showed LVEF 30% with marked RWMAs.? The RV size was mod increased, with mod decreased RV fxn.? IVC was dilated w no insp collapse.? RVSP estimate 41mm. ?Last echo 2018 showed normal LV fxn, mild LVH, normal right heart, no valvular pathology. The patient?s FiO2 came down rapidly, and bec of that, COVID pneumonia was felt unlikely and COVID treatment was stopped.? The patient was extubated on 03/21/2021. ?She was sat?ing up to 98% on 2L NC.? Heparinization was stopped.? The patient?s renal indices cally progressively.? The patient remained significantly encephalopathic, thought likely secondary to uremia.? On Mar 23 she developed respiratory distress and hypoxemia thought secondary to aspiration and/or inability to protect the airway.? The patient was reintubated.? By my reading, the post-intubation chest/x-ray looks clearer than her admission CXR with just a mild RML infiltrate.? She was started on Unasyn.? Head CT scan that day showed no acute structural lesions to account for her encephalopathy. On Mar 24, her WBC bumped to 45.? Unasyn was changed to vanco and Zosyn.? A temporary dialysis catheter was placed. She was started on dialysis on March 25.? Repeat echo that day showed near normal LV function, and normal RV size and function.? The IVC was normal sized with near full inspiratory collapse, suggesting that she might be hypovolemic.? We volume resuscitated her, which improved her BP.? That afternoon, the patient went into atrial flutter.? Two bolus doses of amiodarone did not help.? A diltiazem infusion put her back into sinus rhythm.? In consultation with ID, we changed her abx from vanco and Zosyn, to doxycycline.? WBC cally to 48.? All cultures negative, CDiff negative. Mar 26 she was putting out black stool, hemoccult positive.? Hb was down 3grams over 48hrs.? She underwent EGD by Dr. Queen.? Found gastritis with erosions that were likely the site of bleeding.? We put her on bid PPI, plus Carafate.? Finally obtained a lung perfusion study which showed very low prob of PE. On Mar 27 we did the first real sedation holiday.? She lightened to the point of grimacing to stimulation, but no eye opening and 100% unresponsive.? Since then she?s been dialyzed daily, altho not this morning. No significant events overnight.? Currently been off propofol on a sedation holiday for 7 hours.? Still on fentanyl 200ug.? Levophed dose is down to 0.06ug.? Tmax 100.4?.? HR 101, SR..? BP 98/54.? On AC 16/400/25%/+5, RR is 23, Ve 9L, PIP 30, ETCO2 23, Sat 94%.? CVBG this morning 7.51/27/0.? Opens eyes to stimulation, and consistently blinks to confrontation, but no tracking, no eyeball movement, no other movement, and still 100% noninteractive.? No JVD at 30?, chest CTA, w normal exp phase.? Abd nondistended, soft, benign.? She has about 1+ edema. LABORATORY DATA:? Below.? Notably, white count markedly down to 20, Hb steady at 8.5, plat steady, BUN/creat down to 75/4.3. MICROBIOLOGY:? No sputum sample able to be obtained.? U/A and BCs negative.? Her blood smear from Mar 25 was unremarkable for any sign of parasitic dz. SEROLOGY:? CDiff tox gene negative.? SARs CoV 2 IgG antibody positive on Mar 21. CXR yesterday showed mild CHF (my reading). IMPRESSION: 1. Underlying emphysematous lung disease. 2. Chronic hypoxemic and hypercapnic lung disease.? Blood gasses show signif hypercarbia dating back at least two years. 3. Underlying CKD 4-5. 4. Significant baseline disability 5. Acute respiratory failure, the etiology of which is not clear.? Her admitting CXR was c/w almost anything.? Although her chest CT was not inconsistent with mild COVID pneumonia, the fact that she went from 100% FiO2 to 2L NC (which is her baseline) in a few days is thoroughly inconsistent with severe COVID pneumonia.? PE couldn?t be ruled out for sure on her echo of Mar 19, but duplex scans were negative, her RV was normal on the next echo, and pe rfusion scan Mar 26 was very low probability.? And her hypoxemia was not likely aspiration or bacterial or viral pneumonia, given the relatively clear CXR.? She got three days of Solu-Medrol 60mg tid, and her FiO2 went down to 25%, so I stopped the rhoids on Mar 28. 6. COVID positive.? As noted, she doesn?t have COVID pneumonia.? Her serum IgG was positive on Mar 21,.? So her infection date was no later than Mar 07 or thereabouts.? It?s a certainty that she?s post viral now. 7. Biventricular heart failure on echo of Mar 19.? Undetermined etiology, but her echo pretty much normalized by Mar 25.? After vol resuscitation on Mar 25, her BNP bumped significantly to 7000 and CXR showed mild failure.? We took off 3.9 L during HD yesterday. 8. ?ACS.? Initial troponins had no accompanying EKG changes, but the trop bump on 03/26 had new T wave inversions.? So we added statin and metoprolol.? Unable to give her heparin or aspirin because of the GI bleeding.? Could hypothesize that this is COVID mycocarditis, arturo given the troponin elevations.? But I would think that the CMOP resolved way too early for that.? Hb stable the last three days, so I will now add ASA 81 mg daily. 9. Hypotension w Shock.? Etiology undetermined.? Could be sepsis (arturo with the WBC, fever, and lactate), but cultures are negative, no source.? Her BP definitely responded to volume, but we haven?t been able to get her off the Levophed. 10. Acute on chronic renal failure.? Undoubtedly 2? ATN.? Plan HD daily this week. 11. Encephalopathy.? We have been presuming this was metabolic encephalopathy 2? uremia.? But she hasn?t woken up that much even w the BUN way down.? Could be COVID encephalopathy.? The fact that she opened her eyes to stimulation and had consistent blink to confrontation raises another possibility, and that is that she?s locked in.? I?ve put in an order for an MRI.? Too late to do it today so they?ll do it tomorrow morning. 12. ID.? Fever and marked leukocytosis.?? All cultures negative.? Stool negative for CDiff.? The high ferritin suggested parasitic dz, but the blood s mear was negative. ?Ferritin and PCT are now coming down.? HIV and hepatitis panels were neg.? Legionella antigen is pending.? I?ll continue the empiric doxycycline while the WBC is coming down. 13. Aflutter.? Resolved with diltiazem.? Added oral diltiazem. 14. Transaminase elevations coming down.? Suggestive of shock liver. 15. UGI bleed.? 2? stress gastritis.? Keeping her on bid PPI and Carafate. 16. Nutrition:? On full dose Nepro. 17. DVT prophylaxis.? Seq Teds only.? Her Hb has been stable last three days so I?ll restart her DVT prophylaxis dose heparin. Critical Care Time (minutes): 60 Physical Exam Vital Signs: Vital Signs: Last Vital Signs Temp 98.6 F 03/30/21 18:00 Pulse 108 H 03/30/21 18:00 Resp 25 H 03/30/21 18:00 BP 93/49 L 03/30/21 18:00 Pulse Ox 92 03/30/21 18:00 BMI result Body Mass Index 37.9 Objective Data Labs CBC & Chem 7: 03/30/21 05:30 03/30/21 05:30 Labs: Laboratory Results - last 24 hr 03/29/21 03/30/21 03/30/21 23:54 05:21 05:30 WBC 20.0 H RBC 2.87 L Hgb 8.5 L Hct 25.1 L MCV 87.5 MCH 29.6 MCHC 33.9 RDW 17.6 H Plt Count 129 L MPV 12.2 Absolute Nucleated RBC 1.010 H Nucleated RBC % (auto) 5.0 H VBG pH VBG pCO2 VBG pO2 VBG HCO3 VBG O2 Saturation VBG Base Excess Sodium Potassium Chloride Carbon Dioxide Anion Gap BUN Creatinine Estim Creat Clear Calc Estimated GFR POC Glucose 147 H 132 H Random Glucose Calcium Phosphorus Magnesium 03/30/21 03/30/21 03/30/21 05:30 05:33 11:24 WBC RBC Hgb Hct MCV MCH MCHC RDW Plt Count MPV Absolute Nucleated RBC Nucleated RBC % (auto) VBG pH 7.51 H VBG pCO2 27 VBG pO2 45 VBG HCO3 22 VBG O2 Saturation 67.0 VBG Base Excess 0.4 Sodium 133 L Potassium 3.4 Chloride 97 Carbon Dioxide 19 L Anion Gap 20 BUN 75 H Creatinine 4.33 H* Estim Creat Clear Calc 16.2 Estimated GFR 10 POC Glucose 120 H Random Glucose 133 H Calcium 7.9 L Phosphorus 5.6 H Magnesium 2.1 03/30/21 17:51 WBC RBC Hgb Hct MCV MCH MCHC RDW Plt Count MPV Absolute Nucleated RBC Nucleated RBC % (auto) VBG pH VBG pCO2 VBG pO2 VBG HCO3 VBG O2 Saturation VBG Base Excess Sodium Potassium Chloride Carbon Dioxide Anion Gap BUN Creatinine Estim Creat Clear Calc Estimated GFR POC Glucose 114 Random Glucose Calcium Phosphorus Magnesium Microbiology Microbiology Results: Microbiology 03/24/21 16:49 Blood - Central Line Blood Culture - Final No growth after 5 days. 03/24/21 16:49 Blood - Central Line Blood Culture - Final No growth after 5 days. 03/24/21 16:50 Urine Catheterized - Witt Catheter Urine Culture - Final No growth. 03/18/21 19:37 Blood - Venous Blood Culture - Final No growth after 5 days. 03/18/21 19:37 Blood - Venous Blood Culture - Final Quality Stroke Does the patient have a stroke diagnosis?: No VTE Prior VTE?: No VTE Risk Level:: Medical - moderate - high VTE Device Contraindication: Treatment Not Indicated VTE Drug Contraindication: N/A - Med Ordered Critical Care Time Critical Care Time (minutes): 60
[2021-03-30] MEDS: Aspirin 81 MG TAB.CHEW G-TUBE (18:30)
[2021-03-30] MEDS: propofoL 1,000 MG/100 ML VIAL 9.6 MG IVCONT (22:14)
[2021-03-30 23:42] LABS: Glucose, Whole Blood 111 mg/dL (60-115)
[2021-03-30] MEDS: Rocuronium Bromide 50 MG/5 ML VIAL IVPUSH (23:42)
[2021-03-31] VITALS (45 sets, daily range): BP systolic 58–192; BP diastolic 33–150; PULSE 89–123; RESP 16–28; TEMP 34.1–37.2; O2SAT 90–100; BMI 37.9
[2021-03-31 00:06] LABS: Legionella Ag Urine Not Detected (Not Detected)
[2021-03-31] MEDS: Sucralfate Oral Suspension 1 GM/10 ML ORAL.SUSP PO ×4 (01:06→20:12)
[2021-03-31] MEDS: dilTIAZem HCL 60 MG TABLET G-TUBE ×3 (01:06→16:07)
[2021-03-31] MEDS: Doxycycline Hyclate 100 MG in 0.9 % Sodium Chloride 250 ML 166.67 MG IV ×2 (02:19→14:06)
[2021-03-31] MEDS: propofoL 1,000 MG/100 ML VIAL 19.2 MG IVCONT (02:20)
[2021-03-31] MEDS: fentaNYL citrate/NS 1,000 MCG/100 ML PLAST..BAG 17.5 MCG IVCONT ×5 (03:41→21:49)
[2021-03-31 04:47] LABS: Basophils Percent Auto 0.1 % (0-2); Hemoglobin 7.9 g/dl (12.0-16.0); Imm Gran Abs Auto 0.09 X10*3/uL (0.00-0.03); Imm Gran Pct Auto 0.7 % (0.0-0.4); Lymphocytes Absolute Auto 0.3 X10*3/uL (1.2-4.9); Lymphocytes Percent Auto 2.7 % (20-40); MANUAL DIFF FLAG NO; Mean Corpuscular HGB Conc 32.9 g/dl (31.0-35.0); Mean Corpuscular Hemoglobin 28.8 pg (27.0-33.0); Mean Corpuscular Volume 87.6 fL (80.0-98.0); Mean Platelet Volume 12.4 fL (9.4-12.3); Monocytes Absolute Auto 0.9 X10*3/uL (0.1-1.2); Monocytes Percent Auto 7.2 % (2-11); NRBC Pct Auto 4.4 /100WBC (0.0-0.2); Neutrophils Absolute Auto 10.8 x10*3/uL (2.0-8.3); Neutrophils Percent Auto 89.3 % (45-73); Platelet Count 140 X10*3/uL (160-400); Red Blood Count 2.74 X10*6/uL (4.20-5.50); Red Cell Distribution Width 18.3 % (11.0-16.0); White Blood Count 12.1 X10*3/uL (4.8-10.8)
[2021-03-31 04:48] LABS: Venous Blood Gas Refer to POC result
[2021-03-31 04:48] LABS: VBG Base Excess -5.8 mmol/L; VBG HCO3 18 mmol/L (22-26); VBG pCO2 29 mmHg; VBG pH 7.38 (7.32-7.43); VBG pO2 53 mmHg
[2021-03-31 05:15] LABS: Troponin-I High Sensitivity 1026.1 ng/L (<3.5-17.0)
[2021-03-31 05:16] LABS: Alanine Aminotransferase 226 U/L (0-31); Albumin Level 2.4 g/dL (3.5-5.0); Alkaline Phosphatase 116 U/L (39-117); Anion Gap 20 (12-20); Aspartate Amino Transferase 54 U/L (5-31); Bilirubin Total 0.5 mg/dL (0.0-1.0); Blood Urea Nitrogen 95 mg/dL (9-16); Calcium 7.9 mg/dL (8.4-10.2); Carbon Dioxide 19 mmol/L (22-29); Chloride 98 mmol/L (96-108); Creatinine Clr Calc Pharmacy 13.6; Estimated Glomerular Filt Rate 9; Glucose Random 126 mg/dL (60-115); Magnesium 2.1 mg/dL (1.6-2.6); Phosphorus 7.6 mg/dL (2.7-4.5); Potassium 3.2 mmol/L (3.3-5.1); Sodium 134 mmol/L (135-145); Total Protein 4.4 g/dL (6.5-8.0)
[2021-03-31 05:25] LABS: Procalcitonin 4.36 ng/mL
[2021-03-31 05:29] LABS: Glucose, Whole Blood 133 mg/dL (60-115)
[2021-03-31 06:08] LABS: Ferritin 3166 ng/mL (10-250)
[2021-03-31] MEDS: propofoL 1,000 MG/100 ML VIAL 14.4 MG IVCONT ×4 (07:24→21:24)
--- NOTE | 2021-03-31 09:13 | MHC.CLN ---
F/U PT TO CONTINUE WITH DAILY HD PT RECEIVING NEPRO AT MAX GOAL RATE 20ML/HR WITH 240ML FREE WATER FLUSHES Q 6 HOURS PROVIDES 864KCALS (1498KCALS WITH SEDATION; 23KCALS/KG BASED ON CBW), 39G PROTEIN (.7G/KG), 1309CC TOTAL FREE WATER FROM FORMULA AND FLUSHES (24ML/KG BASED ON IBW) RECOMMEND INCREASING FORMULA TO NEPRO AT MAX GOAL RATE 35ML/HR WITH 30ML PROSOURCE BID AND 240CC FREE WATER FLUSHES Q 6HRS TO PROVIDE 1632KCALS (2012KCALS WITH SEDATION; 30.9KCALS/KG BASED ON CMW), 98G PROTEIN (1.5G/KG BASED ON CMW), 1570ML TOTAL WATER FROM FORMULA AND FLUSHES (24ML/KG) MONITOR TOLERANCE, RESIDUALS AND LYTES
--- NOTE | 2021-03-31 10:12 | PM.PNNEP ---
Subjective Subjective Date of Service: 03/31/21 Interval history: seen and examined on dialysis vented Physical Exam Vital Signs: Vital Signs: Last Vital Signs Temp 98.4 F 03/31/21 09:00 Pulse 123 H 03/31/21 10:00 Resp 27 H 03/31/21 10:00 BP 192/150 H 03/31/21 10:12 Pulse Ox 96 03/31/21 10:00 BMI result Body Mass Index 37.9 Const: General: ill appearing HENMT: Head: Yes normocephalic and Yes atraumatic Neck: Neck: Yes supple Resp: Auscultation: diminished lung sounds Cardio: Heart sounds: S1 normal heart sound present and S2 normal heart sound present GI: Palpation (GI): Soft to palpation and no guarding Extrem: General: Yes pedal edema Objective Data Labs CBC & Chem 7: 03/31/21 04:23 03/31/21 04:23 Labs: Laboratory Results - last 24 hr 03/25/21 03/30/21 03/30/21 16:00 11:24 17:51 WBC RBC Hgb Hct MCV MCH MCHC RDW Plt Count MPV Immature Gran % (Auto) Neut % (Auto) Lymph % (Auto) [place] % (Auto) Eos % (Auto) Baso % (Auto) Lymph # (Auto) [place] # (Auto) Eos # (Auto) Baso # (Auto) Abs Immat Gran (auto) Absolute Neuts (auto) Absolute Nucleated RBC Nucleated RBC % (auto) VBG pH VBG pCO2 VBG pO2 VBG HCO3 VBG O2 Saturation VBG Base Excess Sodium Potassium Chloride Carbon Dioxide Anion Gap BUN Creatinine Estim Creat Clear Calc Estimated GFR POC Glucose 120 H 114 Random Glucose Calcium Phosphorus Magnesium Ferritin Total Bilirubin AST ALT Alkaline Phosphatase Troponin I High Sens Total Protein Albumin Procalcitonin Ur L.pneumophila Ag Not Detected 03/30/21 03/31/21 03/31/21 23:36 04:23 04:23 WBC 12.1 H RBC 2.74 L Hgb 7.9 L Hct 24.0 L MCV 87.6 MCH 28.8 MCHC 32.9 RDW 18.3 H Plt Count 140 L MPV 12.4 H Immature Gran % (Auto) 0.7 H Neut % (Auto) 89.3 H Lymph % (Auto) 2.7 L [place] % (Auto) 7.2 Eos % (Auto) 0.0 Baso % (Auto) 0.1 Lymph # (Auto) 0.3 L [place] # (Auto) 0.9 Eos # (Auto) 0.0 Baso # (Auto) 0.0 Abs Immat Gran (auto) 0.09 H Absolute Neuts (auto) 10.8 H Absolute Nucleated RBC 0.530 H Nucleated RBC % (auto) 4.4 H VBG pH VBG pCO2 VBG pO2 VBG HCO3 VBG O2 Saturation VBG Base Excess Sodium 134 L Potassium 3.2 L Chloride 98 Carbon Dioxide 19 L Anion Gap 20 BUN 95 H D Creatinine 5.16 H* Estim Creat Clear Calc 13.6 Estimated GFR 9 POC Glucose 111 Random Glucose 126 H Calcium 7.9 L Phosphorus 7.6 H Magnesium 2.1 Ferritin 3166 H Total Bilirubin 0.5 AST 54 H ALT 226 H Alkaline Phosphatase 116 Troponin I High Sens Total Protein 4.4 L Albumin 2.4 L Procalcitonin Ur L.pneumophila Ag 03/31/21 03/31/21 03/31/21 04:23 04:23 04:39 WBC RBC Hgb Hct MCV MCH MCHC RDW Plt Count MPV Immature Gran % (Auto) Neut % (Auto) Lymph % (Auto) [place] % (Auto) Eos % (Auto) Baso % (Auto) Lymph # (Auto) [place] # (Auto) Eos # (Auto) Baso # (Auto) Abs Immat Gran (auto) Absolute Neuts (auto) Absolute Nucleated RBC Nucleated RBC % (auto) VBG pH 7.38 VBG pCO2 29 VBG pO2 53 VBG HCO3 18 L VBG O2 Saturation 80.0 VBG Base Excess -5.8 Sodium Potassium Chloride Carbon Dioxide Anion Gap BUN Creatinine Estim Creat Clear Calc Estimated GFR POC Glucose Random Glucose Calcium Phosphorus Magnesium Ferritin Total Bilirubin AST ALT Alkaline Phosphatase Troponin I High Sens 1026.1 H* D Total Protein Albumin Procalcitonin 4.36 Ur L.pneumophila Ag 03/31/21 05:23 WBC RBC Hgb Hct MCV MCH MCHC RDW Plt Count MPV Immature Gran % (Auto) Neut % (Auto) Lymph % (Auto) [place] % (Auto) Eos % (Auto) Baso % (Auto) Lymph # (Auto) [place] # (Auto) Eos # (Auto) Baso # (Auto) Abs Immat Gran (auto) Absolute Neuts (auto) Absolute Nucleated RBC Nucleated RBC % (auto) VBG pH VBG pCO2 VBG pO2 VBG HCO3 VBG O2 Saturation VBG Base Excess Sodium Potassium Chloride Carbon Dioxide Anion Gap BUN Creatinine Estim Creat Clear Calc Estimated GFR POC Glucose 133 H Random Glucose Calcium Phosphorus Magnesium Ferritin Total Bilirubin AST ALT Alkaline Phosphatase Troponin I High Sens Total Protein Albumin Procalcitonin Ur L.pneumophila Ag Microbiology Microbiology Results: Microbiology 03/24/21 16:49 Blood - Central Line Blood Culture - Final No growth after 5 days. 03/24/21 16:49 Blood - Central Line Blood Culture - Final No growth after 5 days. 03/24/21 16:50 Urine Catheterized - Witt Catheter Urine Culture - Final No growth. 03/18/21 19:37 Blood - Venous Blood Culture - Final No growth after 5 days. 03/18/21 19:37 Blood - Venous Blood Culture - Final Procedures Date of Service Date of Service: 03/31/21 Assessment & Plan Assessment and plan (1) JOAN (acute kidney injury): Status: Acute (2) COVID-19: Status: Acute (3) CKD (chronic kidney disease) stage 4, GFR 15-29 ml/min: Status: Acute Plan JOAN due to acute tubular injury in the setting of SARS COV 2 infection no proteinuria no obstruction known CKD baseline Scr 2-2.5 mg/dl REC HD today optimize volume status follow kidney function and electrolytes Time Spent With Patient Time: Total time spent is greater than 50% in coordination of care (as documented) at patient's floor/unit and/or counseling patient: Progress Note: Quality Stroke Does the patient have a stroke diagnosis?: No
[2021-03-31 12:23] LABS: Glucose, Whole Blood 87 mg/dL (60-115)
[2021-03-31] MEDS: Chlorhexidine Gluc Oral Rinse 15 ML MOUTHWASH BUCCAL ×3 (12:27→20:12)
[2021-03-31] MEDS: Atorvastatin Calcium 40 MG TABLET PO (12:27)
--- NOTE | 2021-03-31 12:28 | P.PNCC_ITS ---
Subjective Subjective Date of Service: 03/31/21 Interval History: 60-year-old morbidly obese female apparently with a history of drug abuse and previous toxicology screens indicating positivity for cocaine fentanyl etc. who also has chronic stage IV renal disease presenting with acute on chronic stage 5 renal renal failure with uremia and a metabolic encephalopathy but also 2 weeks ago tested positive for COVID-19 a and because of altered mental status required intubation not because of hypoxia although she did have some mild scattered bilateral ground-glass infiltrates but but the posterior lobe consolidations were noted bilaterally as well and apparently and was rapidly weaned from a respiratory standpoint and extubated and within several days as needed re- intubation this dates back a little over 1 week ago and from that point forward she has a diminished level of responsiveness off sedation of course remains skin 0 currently dialysis dependent and today the issues were relative hypovolemia with bedside echo demonstrated normal LV function with 60-65% ejection fraction no wall motion abnormality including the apex but 1 week ago when was when she was reintubated for the encephalopathy she had acute ST-T changes noted almost diffusely which could have been consistent with ischemia including a bump in the troponin or of course could be consistent with a myocarditis with some degree of of course of resolution because ejection fraction then was deemed to be about 30 % so which she also at that time developed a markedly elevated ferritin level of over 30,000 making me wonder about some Selena possible COVID related complication may be a hyper immune response like a macrophage activating syndrome etc. 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 in her renal failure on dialysis we noted her becoming increasingly tachycardic we in therefore when she became hypotensive did hang a CVP measurement none and after 2 fluid boluses of nearly a L she still had a CVP between 0 into and then she developed an acute hypertensive response to the Levophed so the Levophed was then weaned off up to 2 L of volume replacement during dialysis took place still leaving her with a CVP of approximately 2 and and so we are getting her at least circulatory status back to where it belongs she now has stable vital signs tolerating dialysis and hopefully she will replete the mild hypokalemia that she has as a result of the dialysis but still pending from the standpoint of assessing any acute event to cause her mental status she is going down for an MRI ordered by our previous physician and hopefully fulfill that today so it it the very least we can prognosticate Critical Care Time (minutes): 60 Physical Exam Vital Signs: Vital Signs: Last Vital Signs Temp 97.5 F 03/31/21 11:55 Pulse 113 H 03/31/21 11:55 Resp 23 H 03/31/21 11:55 BP 106/54 L 03/31/21 11:55 Pulse Ox 90 L 03/31/21 11:55 BMI result Body Mass Index 37.9 sedated and intubated but nonfocal neurolog ically cardiovascular status via the bedside echo as described above but with notable normal IVC diameter with greater than 50% inspiratory collapse with her negative inspiratory e ffort lungs showing no evidence of and respiratory effort excess and no adventitious sound s abdomen is soft positive bowel sounds and no organomegaly skin is intact Objective Data Labs CBC & Chem 7: 03/31/21 04:23 03/31/21 04:23 Labs: Laboratory Results - last 24 hr 03/25/21 03/30/21 03/30/21 16:00 17:51 23:36 WBC RBC Hgb Hct MCV MCH MCHC RDW Plt Count MPV Immature Gran % (Auto) Neut % (Auto) Lymph % (Auto) [place] % (Auto) Eos % (Auto) Baso % (Auto) Lymph # (Auto) [place] # (Auto) Eos # (Auto) Baso # (Auto) Abs Immat Gran (auto) Absolute Neuts (auto) Absolute Nucleated RBC Nucleated RBC % (auto) VBG pH VBG pCO2 VBG pO2 VBG HCO3 VBG O2 Saturation VBG Base Excess Sodium Potassium Chloride Carbon Dioxide Anion Gap BUN Creatinine Estim Creat Clear Calc Estimated GFR POC Glucose 114 111 Random Glucose Calcium Phosphorus Magnesium Ferritin Total Bilirubin AST ALT Alkaline Phosphatase Troponin I High Sens Total Protein Albumin Procalcitonin Ur L.pneumophila Ag Not Detected 03/31/21 03/31/21 03/31/21 04:23 04:23 04:23 WBC 12.1 H RBC 2.74 L Hgb 7.9 L Hct 24.0 L MCV 87.6 MCH 28.8 MCHC 32.9 RDW 18.3 H Plt Count 140 L MPV 12.4 H Immature Gran % (Auto) 0.7 H Neut % (Auto) 89.3 H Lymph % (Auto) 2.7 L [place] % (Auto) 7.2 Eos % (Auto) 0.0 Baso % (Auto) 0.1 Lymph # (Auto) 0.3 L [place] # (Auto) 0.9 Eos # (Auto) 0.0 Baso # (Auto) 0.0 Abs Immat Gran (auto) 0.09 H Absolute Neuts (auto) 10.8 H Absolute Nucleated RBC 0.530 H Nucleated RBC % (auto) 4.4 H VBG pH VBG pCO2 VBG pO2 VBG HCO3 VBG O2 Saturation VBG Base Excess Sodium 134 L Potassium 3.2 L Chloride 98 Carbon Dioxide 19 L Anion Gap 20 BUN 95 H D Creatinine 5.16 H* Estim Creat Clear Calc 13.6 Estimated GFR 9 POC Glucose Random Glucose 126 H Calcium 7.9 L Phosphorus 7.6 H Magnesium 2.1 Ferritin 3166 H Total Bilirubin 0.5 AST 54 H ALT 226 H Alkaline Phosphatase 116 Troponin I High Sens 1026.1 H* D Total Protein 4.4 L Albumin 2.4 L Procalcitonin Ur L.pneumophila Ag 03/31/21 03/31/21 03/31/21 04:23 04:39 05:23 WBC RBC Hgb Hct MCV MCH MCHC RDW Plt Count MPV Immature Gran % (Auto) Neut % (Auto) Lymph % (Auto) [place] % (Auto) Eos % (Auto) Baso % (Auto) Lymph # (Auto) [place] # (Auto) Eos # (Auto) Baso # (Auto) Abs Immat Gran (auto) Absolute Neuts (auto) Absolute Nucleated RBC Nucleated RBC % (auto) VBG pH 7.38 VBG pCO2 29 VBG pO2 53 VBG HCO3 18 L VBG O2 Saturation 80.0 VBG Base Excess -5.8 Sodium Potassium Chloride Carbon Dioxide Anion Gap BUN Creatinine Estim Creat Clear Calc Estimated GFR POC Glucose 133 H Random Glucose Calcium Phosphorus Magnesium Ferritin Total Bilirubin AST ALT Alkaline Phosphatase Troponin I High Sens Total Protein Albumin Procalcitonin 4.36 Ur L.pneumophila Ag 03/31/21 12:20 WBC RBC Hgb Hct MCV MCH MCHC RDW Plt Count MPV Immature Gran % (Auto) Neut % (Auto) Lymph % (Auto) [place] % (Auto) Eos % (Auto) Baso % (Auto) Lymph # (Auto) [place] # (Auto) Eos # (Auto) Baso # (Auto) Abs Immat Gran (auto) Absolute Neuts (auto) Absolute Nucleated RBC Nucleated RBC % (auto) VBG pH VBG pCO2 VBG pO2 VBG HCO3 VBG O2 Saturation VBG Base Excess Sodium Potassium Chloride Carbon Dioxide Anion Gap BUN Creatinine Estim Creat Clear Calc Estimated GFR POC Glucose 87 Random Glucose Calcium Phosphorus Magnesium Ferritin Total Bilirubin AST ALT Alkaline Phosphatase Troponin I High Sens Total Protein Albumin Procalcitonin Ur L.pneumophila Ag Microbiology Microbiology Results: Microbiology 03/24/21 16:49 Blood - Central Line Blood Culture - Final No growth after 5 days. 03/24/21 16:49 Blood - Central Line Blood Culture - Final No growth after 5 days. 03/24/21 16:50 Urine Catheterized - Witt Catheter Urine Culture - Final No growth. 03/18/21 19:37 Blood - Venous Blood Culture - Final No growth after 5 days. 03/18/21 19:37 Blood - Venous Blood Culture - Final Progress Note: A&P Assessment and plan (1) Acute blood loss anemia: Status: Acute (2) Uremia: Status: Acute (3) Metabolic encephalopathy: Status: Acute (4) Acute on chronic systolic (congestive) heart failure: Status: Acute (5) Hx of cardiac arrest: Status: Acute (6) Acute respiratory failure with hypoxia: Status: Acute (7) Elevated troponin: Status: Acute (8) Acute respiratory distress: Status: Acute (9) Hypokalemia: Status: Acute (10) JOAN (acute kidney injury): Status: Acute (11) Aspiration into airway: Status: Acute (12) Pneumonia: Status: Acute (13) COVID-19: Status: Acute (14) Respiratory failure: Status: Acute (15) Tubulovillous adenoma of large intestine: Status: Acute (16) CKD (chronic kidney disease) stage 4, GFR 15-29 ml/min: Status: Acute (17) Multiple fractures of ribs: Status: Acute (18) Dyslipidemia: Status: Acute (19) Restrictive lung disease: Status: Acute (20) Lung cancer: Status: Acute (21) LEO (obstructive sleep apnea): Status: Acute (22) COPD (chronic obstructive pulmonary disease): Status: Acute Plan sit this point we will volume replete and potassium replace and proceed with MRI and just be sure were not missing any structural disease or things that have potential reversibility the no such as the posterior reversible encephalopathy or may be some manifestation of an underlying inflammatory disorder Quality Stroke Does the patient have a stroke diagnosis?: No VTE Prior VTE?: No VTE Risk Level:: Medical - moderate - high VTE Device Contraindication: Treatment Not Indicated VTE Drug Contraindication: N/A - Med Ordered
[2021-03-31] MEDS: Metoprolol Tartrate 12.5 MG HALFTAB PO ×2 (12:29→20:12)
[2021-03-31 13:35] LABS: Anion Gap 16 (12-20); Blood Urea Nitrogen 43 mg/dL (9-16); C Reactive Protein 9.83 mg/dL (< or = 0.50); Calcium 8.1 mg/dL (8.4-10.2); Carbon Dioxide 22 mmol/L (22-29); Chloride 100 mmol/L (96-108); Creatinine Clr Calc Pharmacy 25.8; Estimated Glomerular Filt Rate 18; Glucose Random 124 mg/dL (60-115); Potassium 3.3 mmol/L (3.3-5.1); Sodium 135 mmol/L (135-145)
[2021-03-31 13:56] LABS: Erythrocyte Sedimentation Rate 49 MM/HR (0-20)
--- NOTE | 2021-03-31 14:20 | PC.NURSE ---
MAP goal >[address] Harden
[2021-03-31] MEDS: Rocuronium Bromide 50 MG/5 ML VIAL IVPUSH (17:45)
[2021-03-31 18:18] LABS: Glucose, Whole Blood 126 mg/dL (60-115)
[2021-03-31 20:25] LABS: Anion Gap 15 (12-20); Blood Urea Nitrogen 52 mg/dL (9-16); Carbon Dioxide 25 mmol/L (22-29); Chloride 99 mmol/L (96-108); Creatinine Clr Calc Pharmacy 21.6; Estimated Glomerular Filt Rate 15; Glucose Random 142 mg/dL (60-115); Magnesium 1.8 mg/dL (1.6-2.6); Phosphorus 5.3 mg/dL (2.7-4.5); Potassium 3.2 mmol/L (3.3-5.1); Sodium 136 mmol/L (135-145)
[2021-03-31] MEDS: Potassium Chloride Packet 20 MEQ PACKET 40 MEQ PO (22:40)
[2021-03-31 23:55] LABS: Glucose, Whole Blood 131 mg/dL (60-115)
[2021-04-01] VITALS (38 sets, daily range): BP systolic 92–137; BP diastolic 50–83; PULSE 82–117; RESP 15–42; TEMP 34.1–38; O2SAT 6–97; BMI 38.5
[2021-04-01] MEDS: dilTIAZem HCL 60 MG TABLET G-TUBE ×3 (00:33→17:43)
[2021-04-01] MEDS: Sucralfate Oral Suspension 1 GM/10 ML ORAL.SUSP PO ×4 (02:14→20:46)
[2021-04-01] MEDS: Doxycycline Hyclate 100 MG in 0.9 % Sodium Chloride 250 ML 166.67 MG IV (02:14)
[2021-04-01] MEDS: propofoL 1,000 MG/100 ML VIAL 14.4 MG IVCONT ×3 (02:15→21:00)
[2021-04-01] MEDS: fentaNYL citrate/NS 1,000 MCG/100 ML PLAST..BAG 17.5 MCG IVCONT (03:03)
[2021-04-01 05:41] LABS: Hematocrit 22.3 % (37.0-47.0); Imm Gran Abs Auto 0.04 X10*3/uL (0.00-0.03); Imm Gran Pct Auto 0.5 % (0.0-0.4); Mean Corpuscular HGB Conc 31.4 g/dl (31.0-35.0); Mean Corpuscular Hemoglobin 28.3 pg (27.0-33.0); Mean Corpuscular Volume 90.3 fL (80.0-98.0); Monocytes Absolute Auto 0.7 X10*3/uL (0.1-1.2); PLT CLUMP 1; Red Blood Count 2.47 X10*6/uL (4.20-5.50); SCAN SMEAR FLAG 1
[2021-04-01 05:42] LABS: VBG Base Excess 0.3 mmol/L; VBG HCO3 23 mmol/L (22-26); VBG pCO2 29 mmHg; VBG pH 7.49 (7.32-7.43); VBG pO2 41 mmHg
[2021-04-01 05:43] LABS: Lymphocytes Absolute Auto 0.4 X10*3/uL (1.2-4.9); Lymphocytes Percent Auto 5.8 % (20-40); Mean Platelet Volume 12.6 fL (9.4-12.3); Monocytes Percent Auto 9.6 % (2-11); NRBC Pct Auto 2.6 /100WBC (0.0-0.2); Neutrophils Absolute Auto 6.2 x10*3/uL (2.0-8.3); Neutrophils Percent Auto 84.1 % (45-73); Red Cell Distribution Width 19.2 % (11.0-16.0)
[2021-04-01 05:44] LABS: Platelet Count 135 X10*3/uL (160-400); White Blood Count 7.4 X10*3/uL (4.8-10.8)
[2021-04-01 05:45] LABS: MANUAL DIFF FLAG NO
[2021-04-01 05:47] LABS: Venous Blood Gas Refer to POC result
[2021-04-01 05:48] LABS: D Dimer High Sensitivity 2022 NG/ML
[2021-04-01 05:57] LABS: Anion Gap 19 (12-20); Blood Urea Nitrogen 55 mg/dL (9-16); C Reactive Protein 13.26 mg/dL (< or = 0.50); Calcium 7.8 mg/dL (8.4-10.2); Carbon Dioxide 20 mmol/L (22-29); Chloride 99 mmol/L (96-108); Creatinine Clr Calc Pharmacy 19.4; Estimated Glomerular Filt Rate 13; Glucose Random 130 mg/dL (60-115); Lactate Dehydrogenase 550 U/L (122-220); Magnesium 1.8 mg/dL (1.6-2.6); Potassium 3.6 mmol/L (3.3-5.1); Sodium 134 mmol/L (135-145)
--- NOTE | 2021-04-01 06:30 | PC.NURSE ---
CARE ASSUMED 23;15...REMAINS TUBED/VENTED...VCV/AC MODE...SEDATE WITH PROPOFOL/FENTANYL PER APR...(+) GAG/COUGH REFLEXES..GRIMACES TO PAIN..OVERBREATHES VENT RATE...EXTREMETIES FLACCID...REMAINS WITH ANASARCA...(+) SCLERAL EDEMA...CUMULATIVE FLUID BALANCE AFTER ACCOUNTING FOR DIALYSIS= (+) 22.5 LITERS...MOSLEY WITH MINIMAL OUTPUT...FLUID BALANCE AND AM LABS REVIEWED WITH NADYA AND ...TO CONTINUE H20 240ML FLUSH Q6H ORDERED...PLAN TO TRANSFUSE PRBC...FENTANYL DRIP HELD 06:30 PER
[2021-04-01 07:03] LABS: Ferritin 2340 ng/mL (10-250)
--- NOTE | 2021-04-01 07:45 | P.PNNP_ITS ---
Subjective Subjective Date of Service: 04/01/21 Interval history: seen and examined discussed with ICU attending had HD yesterday events noted and reviewed vented Physical Exam Vital Signs: Vital Signs: Last Vital Signs Temp 99.7 F 04/01/21 07:00 Pulse 110 H 04/01/21 07:00 Resp 26 H 04/01/21 07:00 BP 111/54 L 04/01/21 07:00 Pulse Ox 96 04/01/21 07:00 BMI result Body Mass Index 38.5 Const: General: ill appearing HENMT: Head: Yes normocephalic and Yes atraumatic Neck: Neck: Yes supple Resp: Auscultation: diminished lung sounds Cardio: Heart sounds: S1 normal heart sound present and S2 normal heart sound present GI: Palpation (GI): Soft to palpation and no guarding Extrem: General: Yes pedal edema Objective Data Labs CBC & Chem 7: 04/01/21 05:30 04/01/21 05:30 Labs: Laboratory Results - last 24 hr 03/31/21 03/31/21 03/31/21 12:20 13:07 13:07 WBC RBC Hgb Hct MCV MCH MCHC RDW Plt Count MPV Immature Gran % (Auto) Neut % (Auto) Lymph % (Auto) [place] % (Auto) Eos % (Auto) Baso % (Auto) Lymph # (Auto) [place] # (Auto) Eos # (Auto) Baso # (Auto) Abs Immat Gran (auto) Absolute Neuts (auto) Absolute Nucleated RBC Nucleated RBC % (auto) ESR 49 H D-Dimer High Sensitivty VBG pH VBG pCO2 VBG pO2 VBG HCO3 VBG O2 Saturation VBG Base Excess Sodium 135 Potassium 3.3 Chloride 100 Carbon Dioxide 22 Anion Gap 16 BUN 43 H D Creatinine 2.74 H Estim Creat Clear Calc 25.8 Estimated GFR 18 POC Glucose 87 Random Glucose 124 H Calcium 8.1 L Phosphorus Magnesium Ferritin Lactate Dehydrogenase C-Reactive Protein 9.83 H Crossmatch 03/31/21 03/31/21 03/31/21 18:15 19:47 23:31 WBC RBC Hgb Hct MCV MCH MCHC RDW Plt Count MPV Immature Gran % (Auto) Neut % (Auto) Lymph % (Auto) [place] % (Auto) Eos % (Auto) Baso % (Auto) Lymph # (Auto) [place] # (Auto) Eos # (Auto) Baso # (Auto) Abs Immat Gran (auto) Absolute Neuts (auto) Absolute Nucleated RBC Nucleated RBC % (auto) ESR D-Dimer High Sensitivty VBG pH VBG pCO2 VBG pO2 VBG HCO3 VBG O2 Saturation VBG Base Excess Sodium 136 Potassium 3.2 L Chloride 99 Carbon Dioxide 25 Anion Gap 15 BUN 52 H Creatinine 3.27 H Estim Creat Clear Calc 21.6 Estimated GFR 15 POC Glucose 126 H 131 H Random Glucose 142 H Calcium 8.0 L Phosphorus 5.3 H Magnesium 1.8 Ferritin Lactate Dehydrogenase C-Reactive Protein Crossmatch 04/01/21 04/01/21 04/01/21 05:30 05:30 05:30 WBC 7.4 RBC 2.47 L Hgb 7.0 L* Hct 22.3 L MCV 90.3 MCH 28.3 MCHC 31.4 RDW 19.2 H Plt Count 135 L MPV 12.6 H Immature Gran % (Auto) 0.5 H Neut % (Auto) 84.1 H Lymph % (Auto) 5.8 L [place] % (Auto) 9.6 Eos % (Auto) 0.0 Baso % (Auto) 0.0 Lymph # (Auto) 0.4 L [place] # (Auto) 0.7 Eos # (Auto) 0.0 Baso # (Auto) 0.0 Abs Immat Gran (auto) 0.04 H Absolute Neuts (auto) 6.2 Absolute Nucleated RBC 0.190 H Nucleated RBC % (auto) 2.6 H ESR D-Dimer High Sensitivty 2021 VBG pH VBG pCO2 VBG pO2 VBG HCO3 VBG O2 Saturation VBG Base Excess Sodium 134 L Potassium 3.6 Chloride 99 Carbon Dioxide 20 L Anion Gap 19 BUN 55 H Creatinine 3.66 H Estim Creat Clear Calc 19.4 Estimated GFR 13 POC Glucose Random Glucose 130 H Calcium 7.8 L Phosphorus 5.0 H Magnesium 1.8 Ferritin 2340 H Lactate Dehydrogenase 550 H C-Reactive Protein 13.26 H Crossmatch 04/01/21 04/01/21 05:34 06:44 WBC RBC Hgb Hct MCV MCH MCHC RDW Plt Count MPV Immature Gran % (Auto) Neut % (Auto) Lymph % (Auto) [place] % (Auto) Eos % (Auto) Baso % (Auto) Lymph # (Auto) [place] # (Auto) Eos # (Auto) Baso # (Auto) Abs Immat Gran (auto) Absolute Neuts (auto) Absolute Nucleated RBC Nucleated RBC % (auto) ESR D-Dimer High Sensitivty VBG pH 7.49 H VBG pCO2 29 VBG pO2 41 VBG HCO3 23 VBG O2 Saturation 69.0 VBG Base Excess 0.3 Sodium Potassium Chloride Carbon Dioxide Anion Gap BUN Creatinine Estim Creat Clear Calc Estimated GFR POC Glucose Random Glucose Calcium Phosphorus Magnesium Ferritin Lactate Dehydrogenase C-Reactive Protein Crossmatch See Detail Microbiology Microbiology Results: Microbiology 03/24/21 16:49 Blood - Central Line Blood Culture - Final No growth after 5 days. 03/24/21 16:49 Blood - Central Line Blood Culture - Final No growth after 5 days. 03/24/21 16:50 Urine Catheterized - Witt Catheter Urine Culture - Final No growth. 03/18/21 19:37 Blood - Venous Blood Culture - Final No growth after 5 days. 03/18/21 19:37 Blood - Venous Blood Culture - Final Procedures Date of Service Date of Service: 04/01/21 Assessment & Plan Assessment and plan (1) JOAN (acute kidney injury): Status: Acute (2) COVID-19: Status: Acute (3) CKD (chronic kidney disease) stage 4, GFR 15-29 ml/min: Status: Acute Plan volume status improved CVP ~ 6-7 JOAN due to acute tubular injury in the setting of SARS COV 2 infection no proteinuria no obstruction known CKD baseline Scr 2-2.5 mg/dl REC HD in am follow kidney function and electrolytes Time Spent With Patient Time: Total time spent is greater than 50% in coordination of care (as documented) at patient's floor/unit and/or counseling patient: Progress Note: Quality Stroke Does the patient have a stroke diagnosis?: No
[2021-04-01] MEDS: Metoprolol Tartrate 12.5 MG HALFTAB PO ×2 (08:06→20:47)
[2021-04-01] MEDS: Chlorhexidine Gluc Oral Rinse 15 ML MOUTHWASH BUCCAL ×3 (08:06→20:46)
[2021-04-01] MEDS: Atorvastatin Calcium 40 MG TABLET PO (08:06)
[2021-04-01 08:48] LABS: Albumin Level 2.3 g/dL (3.5-5.0)
[2021-04-01 12:05] LABS: Glucose, Whole Blood 158 mg/dL (60-115)
[2021-04-01] MEDS: Insulin Lispro 100 UNIT/ML 3 ML VIAL SUBCUT (12:11)
--- NOTE | 2021-04-01 13:09 | PM.CCPN ---
Subjective Subjective Date of Service: 04/01/21 Interval History: 60-year-old morbidly obese female with COVID-19 pneumonitis and had both the severe encephalopathy and initially intubated for airway protection extubated in within 3 or 4 more days reintubated now 0 9 days out on the 2nd intubation and has never had cognitive function she remains off all sedation as of this morning she did awaken and she response to confrontation but this still no no evidence of cognitive function and has been switched to a pressure control mode with adequate tidal volumes and minute ventilatory requirements about 11 L but FiO2 is 30% with stable chest x-ray and we will remain off of all sedation as long as she stays quiet or possibly even use something like dexmedetomidine for the evening when we probably will rest her and replace her on a volume control mechanism Critical Care Time (minutes): 45 Physical Exam Vital Signs: Vital Signs: Last Vital Signs Temp 99.1 F 04/01/21 11:00 Pulse 109 H 04/01/21 11:00 Resp 15 04/01/21 11:00 BP 130/73 04/01/21 11:00 Pulse Ox 97 04/01/21 11:00 BMI result Body Mass Index 38.5 vital signs are stable saturation is 97% with pressure 128/68 sinus tachycardia rate 110 bedside echo you know reveals 60% ejection fraction without segmental wall motion abnormality no [place] tissues sounds and no excessive accessory muscle or diap hragm usage abdomen is is s oft no organomegaly no peripheral edema no acrocyanosis Objective Data Labs CBC & Chem 7: 04/01/21 05:30 04/01/21 05:30 Labs: Laboratory Results - last 24 hr 03/31/21 03/31/21 03/31/21 13:07 13:07 18:15 WBC RBC Hgb Hct MCV MCH MCHC RDW Plt Count MPV Immature Gran % (Auto) Neut % (Auto) Lymph % (Auto) [place] % (Auto) Eos % (Auto) Baso % (Auto) Lymph # (Auto) [place] # (Auto) Eos # (Auto) Baso # (Auto) Abs Immat Gran (auto) Absolute Neuts (auto) Absolute Nucleated RBC Nucleated RBC % (auto) ESR 49 H D-Dimer High Sensitivty VBG pH VBG pCO2 VBG pO2 VBG HCO3 VBG O2 Saturation VBG Base Excess Sodium 135 Potassium 3.3 Chloride 100 Carbon Dioxide 22 Anion Gap 16 BUN 43 H D Creatinine 2.74 H Estim Creat Clear Calc 25.8 Estimated GFR 18 POC Glucose 126 H Random Glucose 124 H Calcium 8.1 L Phosphorus Magnesium Ferritin Lactate Dehydrogenase C-Reactive Protein 9.83 H Albumin Blood Type Antibody Screen Crossmatch Crossmatch ([facility]) 03/31/21 03/31/21 04/01/21 19:47 23:31 05:30 WBC 7.4 RBC 2.47 L Hgb 7.0 L* Hct 22.3 L MCV 90.3 MCH 28.3 MCHC 31.4 RDW 19.2 H Plt Count 135 L MPV 12.6 H Immature Gran % (Auto) 0.5 H Neut % (Auto) 84.1 H Lymph % (Auto) 5.8 L [place] % (Auto) 9.6 Eos % (Auto) 0.0 Baso % (Auto) 0.0 Lymph # (Auto) 0.4 L [place] # (Auto) 0.7 Eos # (Auto) 0.0 Baso # (Auto) 0.0 Abs Immat Gran (auto) 0.04 H Absolute Neuts (auto) 6.2 Absolute Nucleated RBC 0.190 H Nucleated RBC % (auto) 2.6 H ESR D-Dimer High Sensitivty VBG pH VBG pCO2 VBG pO2 VBG HCO3 VBG O2 Saturation VBG Base Excess Sodium 136 Potassium 3.2 L Chloride 99 Carbon Dioxide 25 Anion Gap 15 BUN 52 H Creatinine 3.27 H Estim Creat Clear Calc 21.6 Estimated GFR 15 POC Glucose 131 H Random Glucose 142 H Calcium 8.0 L Phosphorus 5.3 H Magnesium 1.8 Ferritin Lactate Dehydrogenase C-Reactive Protein Albumin Blood Type Antibody Screen Crossmatch Crossmatch ([facility]) 04/01/21 04/01/21 04/01/21 05:30 05:30 05:30 WBC RBC Hgb Hct MCV MCH MCHC RDW Plt Count MPV Immature Gran % (Auto) Neut % (Auto) Lymph % (Auto) [place] % (Auto) Eos % (Auto) Baso % (Auto) Lymph # (Auto) [place] # (Auto) Eos # (Auto) Baso # (Auto) Abs Immat Gran (auto) Absolute Neuts (auto) Absolute Nucleated RBC Nucleated RBC % (auto) ESR D-Dimer High Sensitivty 2021 VBG pH VBG pCO2 VBG pO2 VBG HCO3 VBG O2 Saturation VBG Base Excess Sodium 134 L Potassium 3.6 Chloride 99 Carbon Dioxide 20 L Anion Gap 19 BUN 55 H Creatinine 3.66 H Estim Creat Clear Calc 19.4 Estimated GFR 13 POC Glucose Random Glucose 130 H Calcium 7.8 L Phosphorus 5.0 H Magnesium 1.8 Ferritin 2340 H Lactate Dehydrogenase 550 H C-Reactive Protein 13.26 H Albumin 2.3 L Cancelled Blood Type Antibody Screen Crossmatch Crossmatch ([facility]) 04/01/21 04/01/21 04/01/21 05:34 06:44 11:51 WBC RBC Hgb Hct MCV MCH MCHC RDW Plt Count MPV Immature Gran % (Auto) Neut % (Auto) Lymph % (Auto) [place] % (Auto) Eos % (Auto) Baso % (Auto) Lymph # (Auto) [place] # (Auto) Eos # (Auto) Baso # (Auto) Abs Immat Gran (auto) Absolute Neuts (auto) Absolute Nucleated RBC Nucleated RBC % (auto) ESR D-Dimer High Sensitivty VBG pH 7.49 H VBG pCO2 29 VBG pO2 41 VBG HCO3 23 VBG O2 Saturation 69.0 VBG Base Excess 0.3 Sodium Potassium Chloride Carbon Dioxide Anion Gap BUN Creatinine Estim Creat Clear Calc Estimated GFR POC Glucose 158 H Random Glucose Calcium Phosphorus Magnesium Ferritin Lactate Dehydrogenase C-Reactive Protein Albumin Blood Type O Negative Antibody Screen NEGATIVE Crossmatch See Detail Crossmatch ([facility]) See Detail Microbiology Microbiology Results: Microbiology 03/24/21 16:49 Blood - Central Line Blood Culture - Final No growth after 5 days. 03/24/21 16:49 Blood - Central Line Blood Culture - Final No growth after 5 days. 03/24/21 16:50 Urine Catheterized - Witt Catheter Urine Culture - Final No growth. 03/18/21 19:37 Blood - Venous Blood Culture - Final No growth after 5 days. 03/18/21 19:37 Blood - Venous Blood Culture - Final Progress Note: A&P Assessment and plan (1) Acute blood loss anemia: Status: Acute (2) Uremia: Status: Acute (3) Metabolic encephalopathy: Status: Acute (4) Acute on chronic systolic (congestive) heart failure: Status: Acute (5) Hx of cardiac arrest: Status: Acute (6) Acute respiratory failure with hypoxia: Status: Acute (7) Elevated troponin: Status: Acute (8) Acute respiratory distress: Status: Acute (9) Hypokalemia: Status: Acute (10) JOAN (acute kidney injury): Status: Acute (11) Aspiration into airway: Status: Acute (12) Pneumonia: Status: Acute (13) COVID-19: Status: Acute (14) Respiratory failure: Status: Acute (15) Osteoarthritis of ankles, bilateral: Status: Acute (16) Umbilical hernia: Status: Acute (17) Olecranon bursitis of left elbow: Status: Acute (18) Tubulovillous adenoma of large intestine: Status: Acute (19) CKD (chronic kidney disease) stage 4, GFR 15-29 ml/min: Status: Acute (20) Family history of colon cancer: Status: Acute (21) Multiple fractures of ribs: Status: Acute (22) Anemia in chronic kidney disease: Status: Acute (23) Vitamin D deficiency: Status: Acute (24) Breast cancer screening by mammogram: Status: Resolved (25) Tubular adenoma of colon: Status: Acute (26) Dyslipidemia: Status: Acute (27) Restrictive lung disease: Status: Acute (28) Lung cancer: Status: Acute (29) LEO (obstructive sleep apnea): Status: Acute (30) COPD (chronic obstructive pulmonary disease): Status: Acute Plan will keep her on pressure control as long as possible and hopefully remain off of all forms of sedation except potentially dexmedetomidine later this evening Quality Stroke Does the patient have a stroke diagnosis?: No VTE Prior VTE?: No VTE Risk Level:: Medical - moderate - high VTE Device Contraindication: Treatment Not Indicated VTE Drug Contraindication: N/A - Med Ordered
--- NOTE | 2021-04-01 14:52 | MHC.CM.PN ---
Pt continues intubated in ICU: began a sedation vacation in an attempt to wean from vent and extubate. FiO2 at 30%. D/C plans will likely include STR placement as pt will be weak and deconditioned after her prolonged ICU stay. CM to follow
[2021-04-01] MEDS: dexmedeTOMIDidine HCL/NS 400 MCG/100 ML INFUS..BTL 12.71 MCG IVCONT (17:45)
[2021-04-01 18:05] LABS: Glucose, Whole Blood 150 mg/dL (60-115)
[2021-04-01] MEDS: LORazepam 2 MG/ML VIAL 1 MG IVPUSH (19:37)
[2021-04-01] MEDS: dexmedeTOMIDidine HCL/NS 400 MCG/100 ML INFUS..BTL 38.14 MCG IVCONT (20:30)
[2021-04-01] MEDS: dexmedeTOMIDidine HCL/NS 400 MCG/100 ML INFUS..BTL 25.43 MCG IVCONT (22:32)
[2021-04-01] MEDS: fentaNYL citrate/NS 1,000 MCG/100 ML PLAST..BAG 15 MCG IVCONT (22:33)
--- NOTE | 2021-04-01 22:51 | PC.NURSE ---
VSS- levophed gtt titrated per EMAR.- tmax 100.4 Sedation vacation from about 0620- 1800. Pt unable to follow commands. Pt placed on PC, switched back to previous AC settings when pt becme tired. Sedated on Precedex, fentanyl and propofol added for vent synchrony per PA. Witt output 20-30/hr, 4 BMs, bath given.
[2021-04-01 23:57] LABS: Glucose, Whole Blood 137 mg/dL (60-115)
[2021-04-02] VITALS (34 sets, daily range): BP systolic 88–133; BP diastolic 25–79; PULSE 65–133; RESP 12–31; TEMP 34.5–38.1; O2SAT 89–100; BMI 39.8
[2021-04-02] MEDS: Sucralfate Oral Suspension 1 GM/10 ML ORAL.SUSP PO ×4 (00:08→19:30)
[2021-04-02] MEDS: propofoL 1,000 MG/100 ML VIAL 9.6 MG IVCONT ×2 (01:45→12:53)
[2021-04-02] MEDS: dexmedeTOMIDidine HCL/NS 400 MCG/100 ML INFUS..BTL 25.43 MCG IVCONT ×3 (02:22→10:13)
[2021-04-02 05:33] LABS: VBG Base Excess -2.5 mmol/L; VBG HCO3 19 mmol/L (22-26); VBG pCO2 24 mmHg; VBG pH 7.49 (7.32-7.43); VBG pO2 40 mmHg
[2021-04-02 05:40] LABS: Basophils Percent Auto 0.2 % (0-2); Hematocrit 25.7 % (37.0-47.0); Hemoglobin 8.1 g/dl (12.0-16.0); Imm Gran Abs Auto 0.01 X10*3/uL (0.00-0.03); Imm Gran Pct Auto 0.2 % (0.0-0.4); LEFT SHIFT? 1; Lymphocytes Absolute Auto 0.5 X10*3/uL (1.2-4.9); Lymphocytes Percent Auto 7.4 % (20-40); Mean Corpuscular HGB Conc 31.5 g/dl (31.0-35.0); Mean Corpuscular Hemoglobin 27.3 pg (27.0-33.0); Mean Corpuscular Volume 86.5 fL (80.0-98.0); Mean Platelet Volume 11.6 fL (9.4-12.3); Monocytes Absolute Auto 0.9 X10*3/uL (0.1-1.2); Monocytes Percent Auto 13.6 % (2-11); NRBC Pct Auto 0.8 /100WBC (0.0-0.2); Neutrophils Absolute Auto 5.1 x10*3/uL (2.0-8.3); Neutrophils Percent Auto 78.6 % (45-73); Platelet Count 177 X10*3/uL (160-400); Red Blood Count 2.97 X10*6/uL (4.20-5.50); White Blood Count 6.5 X10*3/uL (4.8-10.8)
[2021-04-02 05:48] LABS: MANUAL DIFF FLAG SCAN
[2021-04-02 06:05] LABS: Anion Gap 19 (12-20); Blood Urea Nitrogen 70 mg/dL (9-16); Calcium 8.1 mg/dL (8.4-10.2); Carbon Dioxide 19 mmol/L (22-29); Chloride 98 mmol/L (96-108); Creatinine Clr Calc Pharmacy 16.1; Estimated Glomerular Filt Rate 10; Glucose Random 135 mg/dL (60-115); Magnesium 1.8 mg/dL (1.6-2.6); Phosphorus 5.1 mg/dL (2.7-4.5); Potassium 3.3 mmol/L (3.3-5.1); Sodium 133 mmol/L (135-145)
[2021-04-02 06:08] LABS: SLIDE REVIEW VERIFIED
[2021-04-02 06:10] LABS: Glucose, Whole Blood 138 mg/dL (60-115)
[2021-04-02 06:20] LABS: Venous Blood Gas Refer to POC result
[2021-04-02] MEDS: methADONE HCl 20 MG/2 ML ORAL.CONC 30 MG PO (07:03)
[2021-04-02 07:37] LABS: Albumin Level 2.4 g/dL (3.5-5.0)
[2021-04-02] MEDS: dilTIAZem HCL 60 MG TABLET G-TUBE (08:05)
[2021-04-02] MEDS: Metoprolol Tartrate 12.5 MG HALFTAB PO ×2 (08:05→19:30)
[2021-04-02] MEDS: Atorvastatin Calcium 40 MG TABLET PO (08:05)
[2021-04-02] MEDS: Chlorhexidine Gluc Oral Rinse 15 ML MOUTHWASH BUCCAL ×3 (08:05→19:30)
--- NOTE | 2021-04-02 08:40 | P.PNNP_ITS ---
Subjective Subjective Date of Service: 04/02/21 Interval history: seen and examined on dialysis on FiO2 30% vented Physical Exam Vital Signs: Vital Signs: Last Vital Signs Temp 100.4 F 04/02/21 08:00 Pulse 99 04/02/21 08:00 Resp 19 04/02/21 08:00 BP 95/62 04/02/21 08:00 Pulse Ox 94 04/02/21 08:00 BMI result Body Mass Index 39.8 Const: General: ill appearing HENMT: Head: Yes normocephalic and Yes atraumatic Neck: Neck: Yes supple Resp: Auscultation: diminished lung sounds Cardio: Heart sounds: S1 normal heart sound present and S2 normal heart sound present GI: Palpation (GI): Soft to palpation and no guarding Extrem: General: Yes pedal edema Objective Data Labs CBC & Chem 7: 04/02/21 05:22 04/02/21 05:22 Labs: Laboratory Results - last 24 hr 04/01/21 04/01/21 04/01/21 05:30 05:30 06:44 WBC RBC Hgb Hct MCV MCH MCHC RDW Plt Count MPV Immature Gran % (Auto) Neut % (Auto) Lymph % (Auto) [place] % (Auto) Eos % (Auto) Baso % (Auto) Lymph # (Auto) [place] # (Auto) Eos # (Auto) Baso # (Auto) Abs Immat Gran (auto) Absolute Neuts (auto) Absolute Nucleated RBC Nucleated RBC % (auto) Smear Tech's Comments VBG pH VBG pCO2 VBG pO2 VBG HCO3 VBG O2 Saturation VBG Base Excess Sodium Potassium Chloride Carbon Dioxide Anion Gap BUN Creatinine Estim Creat Clear Calc Estimated GFR POC Glucose Random Glucose Calcium Phosphorus Magnesium Albumin 2.3 L Cancelled Blood Type O Negative Antibody Screen NEGATIVE Crossmatch See Detail Crossmatch ([facility]G) See Detail 04/01/21 04/01/21 04/01/21 11:51 17:46 23:53 WBC RBC Hgb Hct MCV MCH MCHC RDW Plt Count MPV Immature Gran % (Auto) Neut % (Auto) Lymph % (Auto) [place] % (Auto) Eos % (Auto) Baso % (Auto) Lymph # (Auto) [place] # (Auto) Eos # (Auto) Baso # (Auto) Abs Immat Gran (auto) Absolute Neuts (auto) Absolute Nucleated RBC Nucleated RBC % (auto) Smear Tech's Comments VBG pH VBG pCO2 VBG pO2 VBG HCO3 VBG O2 Saturation VBG Base Excess Sodium Potassium Chloride Carbon Dioxide Anion Gap BUN Creatinine Estim Creat Clear Calc Estimated GFR POC Glucose 158 H 150 H 137 H Random Glucose Calcium Phosphorus Magnesium Albumin Blood Type Antibody Screen Crossmatch Crossmatch ([facility]) 04/02/21 04/02/21 04/02/21 05:22 05:22 05:22 WBC 6.5 RBC 2.97 L D Hgb 8.1 L Hct 25.7 L MCV 86.5 MCH 27.3 MCHC 31.5 RDW 18.0 H Plt Count 177 D MPV 11.6 Immature Gran % (Auto) 0.2 Neut % (Auto) 78.6 H Lymph % (Auto) 7.4 L [place] % (Auto) 13.6 H Eos % (Auto) 0.0 Baso % (Auto) 0.2 Lymph # (Auto) 0.5 L [place] # (Auto) 0.9 Eos # (Auto) 0.0 Baso # (Auto) 0.0 Abs Immat Gran (auto) 0.01 Absolute Neuts (auto) 5.1 Absolute Nucleated RBC 0.050 H Nucleated RBC % (auto) 0.8 H Smear Tech's Comments VERIFIED VBG pH VBG pCO2 VBG pO2 VBG HCO3 VBG O2 Saturation VBG Base Excess Sodium 133 L Potassium 3.3 Chloride 98 Carbon Dioxide 19 L Anion Gap 19 BUN 70 H Creatinine 4.41 H* Estim Creat Clear Calc 16.1 Estimated GFR 10 POC Glucose Random Glucose 135 H Calcium 8.1 L Phosphorus 5.1 H Magnesium 1.8 Albumin 2.4 L Cancelled Blood Type Antibody Screen Crossmatch Crossmatch ([facility]) 04/02/21 04/02/21 05:26 06:03 WBC RBC Hgb Hct MCV MCH MCHC RDW Plt Count MPV Immature Gran % (Auto) Neut % (Auto) Lymph % (Auto) [place] % (Auto) Eos % (Auto) Baso % (Auto) Lymph # (Auto) [place] # (Auto) Eos # (Auto) Baso # (Auto) Abs Immat Gran (auto) Absolute Neuts (auto) Absolute Nucleated RBC Nucleated RBC % (auto) Smear Tech's Comments VBG pH 7.49 H VBG pCO2 24 VBG pO2 40 VBG HCO3 19 L VBG O2 Saturation 66.0 VBG Base Excess -2.5 Sodium Potassium Chloride Carbon Dioxide Anion Gap BUN Creatinine Estim Creat Clear Calc Estimated GFR POC Glucose 138 H Random Glucose Calcium Phosphorus Magnesium Albumin Blood Type Antibody Screen Crossmatch Crossmatch ([facility]) Microbiology Microbiology Results: Microbiology 03/24/21 16:49 Blood - Central Line Blood Culture - Final No growth after 5 days. 03/24/21 16:49 Blood - Central Line Blood Culture - Final No growth after 5 days. 03/24/21 16:50 Urine Catheterized - Witt Catheter Urine Culture - Final No growth. 03/18/21 19:37 Blood - Venous Blood Culture - Final No growth after 5 days. 03/18/21 19:37 Blood - Venous Blood Culture - Final Procedures Date of Service Date of Service: 04/02/21 Assessment & Plan Assessment and plan (1) JOAN (acute kidney injury): Status: Acute (2) COVID-19: Status: Acute (3) CKD (chronic kidney disease) stage 4, GFR 15-29 ml/min: Status: Acute Plan on FiO2 30% JOAN due to acute tubular injury in the setting of SARS COV 2 infection no proteinuria no obstruction known CKD baseline Scr 2-2.5 mg/dl REC HD today minimal UF today follow kidney function and electrolytes Time Spent With Patient Time: Total time spent is greater than 50% in coordination of care (as documented) at patient's floor/unit and/or counseling patient: Progress Note: Quality Stroke Does the patient have a stroke diagnosis?: No
--- NOTE | 2021-04-02 10:06 | MHC.CLN ---
F/U PT TO CONTINUE WITH DAILY HD PT RECEIVING NEPRO AT MAX GOAL RATE 35ML/HR WITH 30ML PROSOURCE BID AND 240CC FREE WATER FLUSHES Q 6HRS TO PROVIDE 1632KCALS (2012KCALS WITH SEDATION; 30.9KCALS/KG BASED ON CMW), 98G PROTEIN (1.5G/KG BASED ON CMW), 1570ML TOTAL WATER FROM FORMULA AND FLUSHES (24ML/KG) CAN ADJUST FREE WATER FLUSHES NEEDED MONITOR TOLERANCE, RESIDUALS AND LYTES
[2021-04-02 11:49] LABS: Glucose, Whole Blood 136 mg/dL (60-115)
[2021-04-02] MEDS: Rocuronium Bromide 50 MG/5 ML VIAL IVPUSH (12:54)
[2021-04-02] MEDS: vancomycin HCL 1,000 MG in 0.9 % Sodium Chloride 250 ML 270 MG IV (14:12)
--- NOTE | 2021-04-02 14:55 | PM.CCPN ---
Subjective Subjective Date of Service: 04/02/21 Interval History: 60-year-old female COVID positive in the hospital for nearly 2 weeks and and now a intubated for the 2nd time approximately 9-10 days and did have evidence of pneumonitis and hypoxemia but the initially intubated because of her profound encephalopathy currently has low-grade temperatures for the 1st time ever producing sputum and started to develop increased tachypnea on the ventilator evidence of of air trapping in other words in a evidence of airway issues and increasing hypoxemia with an increased FiO2 and minute ventilatory requirement and I believe that this is indicative of a nosocomial infection so the appropriate cultures were were taken along with a g stain and were treating symptomatic Herminia with bronchodilator therapy and antibiotics started pending results of Gram stains and culture there is a history of in a prior opioid abuse effect probably polysubstance abuse including cocaine etc. and a past and she has been on methadone she is no longer on the fentanyl is part of her sedation she is slowly on propofol and therefore we started her back on close to half dose of her usual methadone that she had taken thus far without any change in her QT interval on EKG Critical Care Time (minutes): 45 Physical Exam Vital Signs: Vital Signs: Last Vital Signs Temp 99.0 F 04/02/21 14:00 Pulse 107 H 04/02/21 14:00 Resp 16 04/02/21 14:00 BP 133/75 04/02/21 14:00 Pulse Ox 89 L 04/02/21 14:00 BMI result Body Mass Index 39.8 after hours off the propofol she is still failed to awaken no evidence of cognitive function barely grimacing to to pain yesterday she did have some eye opening so this is a little bit of a step backward so I am hopeful that it just simply represents an with the effect of this infection cardiovascular she definitely has improved from previous and she remains in sinus rhythm LV ejection fraction certainly appears to be normal at about 55% abdomen is tolerating feedings belly is soft good bowel sounds no organomegaly bilateral wheezing is noted for the 1st time Objective Data Labs CBC & Chem 7: 04/02/21 05:22 04/02/21 05:22 Labs: Laboratory Results - last 24 hr 04/01/21 04/01/21 04/02/21 17:46 23:53 05:22 WBC 6.5 RBC 2.97 L D Hgb 8.1 L Hct 25.7 L MCV 86.5 MCH 27.3 MCHC 31.5 RDW 18.0 H Plt Count 177 D MPV 11.6 Immature Gran % (Auto) 0.2 Neut % (Auto) 78.6 H Lymph % (Auto) 7.4 L [place] % (Auto) 13.6 H Eos % (Auto) 0.0 Baso % (Auto) 0.2 Lymph # (Auto) 0.5 L [place] # (Auto) 0.9 Eos # (Auto) 0.0 Baso # (Auto) 0.0 Abs Immat Gran (auto) 0.01 Absolute Neuts (auto) 5.1 Absolute Nucleated RBC 0.050 H Nucleated RBC % (auto) 0.8 H Smear Tech's Comments VERIFIED VBG pH VBG pCO2 VBG pO2 VBG HCO3 VBG O2 Saturation VBG Base Excess Sodium Potassium Chloride Carbon Dioxide Anion Gap BUN Creatinine Estim Creat Clear Calc Estimated GFR POC Glucose 150 H 137 H Random Glucose Calcium Phosphorus Magnesium Albumin 04/02/21 04/02/21 04/02/21 05:22 05:22 05:26 WBC RBC Hgb Hct MCV MCH MCHC RDW Plt Count MPV Immature Gran % (Auto) Neut % (Auto) Lymph % (Auto) [place] % (Auto) Eos % (Auto) Baso % (Auto) Lymph # (Auto) [place] # (Auto) Eos # (Auto) Baso # (Auto) Abs Immat Gran (auto) Absolute Neuts (auto) Absolute Nucleated RBC Nucleated RBC % (auto) Smear Tech's Comments VBG pH 7.49 H VBG pCO2 24 VBG pO2 40 VBG HCO3 19 L VBG O2 Saturation 66.0 VBG Base Excess -2.5 Sodium 133 L Potassium 3.3 Chloride 98 Carbon Dioxide 19 L Anion Gap 19 BUN 70 H Creatinine 4.41 H* Estim Creat Clear Calc 16.1 Estimated GFR 10 POC Glucose Random Glucose 135 H Calcium 8.1 L Phosphorus 5.1 H Magnesium 1.8 Albumin 2.4 L Cancelled 04/02/21 04/02/21 06:03 11:44 WBC RBC Hgb Hct MCV MCH MCHC RDW Plt Count MPV Immature Gran % (Auto) Neut % (Auto) Lymph % (Auto) [place] % (Auto) Eos % (Auto) Baso % (Auto) Lymph # (Auto) [place] # (Auto) Eos # (Auto) Baso # (Auto) Abs Immat Gran (auto) Absolute Neuts (auto) Absolute Nucleated RBC Nucleated RBC % (auto) Smear Tech's Comments VBG pH VBG pCO2 VBG pO2 VBG HCO3 VBG O2 Saturation VBG Base Excess Sodium Potassium Chloride Carbon Dioxide Anion Gap BUN Creatinine Estim Creat Clear Calc Estimated GFR POC Glucose 138 H 136 H Random Glucose Calcium Phosphorus Magnesium Albumin Microbiology Microbiology Results: Microbiology 03/24/21 16:49 Blood - Central Line Blood Culture - Final No growth after 5 days. 03/24/21 16:49 Blood - Central Line Blood Culture - Final No growth after 5 days. 03/24/21 16:50 Urine Catheterized - Witt Catheter Urine Culture - Final No growth. 03/18/21 19:37 Blood - Venous Blood Culture - Final No growth after 5 days. 03/18/21 19:37 Blood - Venous Blood Culture - Final Progress Note: A&P Assessment and plan (1) Acute blood loss anemia: Status: Acute (2) Uremia: Status: Acute (3) Metabolic encephalopathy: Status: Acute (4) Acute on chronic systolic (congestive) heart failure: Status: Acute (5) Hx of cardiac arrest: Status: Acute (6) Acute respiratory failure with hypoxia: Status: Acute (7) Elevated troponin: Status: Acute (8) Acute respiratory distress: Status: Acute (9) Hypokalemia: Status: Acute (10) JOAN (acute kidney injury): Status: Acute (11) Aspiration into airway: Status: Acute (12) Pneumonia: Status: Acute (13) COVID-19: Status: Acute (14) Respiratory failure: Status: Acute (15) Osteoarthritis of ankles, bilateral: Status: Acute (16) Umbilical hernia: Status: Acute (17) Olecranon bursitis of left elbow: Status: Acute (18) Tubulovillous adenoma of large intestine: Status: Acute (19) CKD (chronic kidney disease) stage 4, GFR 15-29 ml/min: Status: Acute (20) Family history of colon cancer: Status: Acute (21) Multiple fractures of ribs: Status: Acute (22) Anemia in chronic kidney disease: Status: Acute (23) Vitamin D deficiency: Status: Acute (24) Breast cancer screening by mammogram: Status: Resolved (25) Tubular adenoma of colon: Status: Acute (26) Dyslipidemia: Status: Acute (27) Restrictive lung disease: Status: Acute (28) Lung cancer: Status: Acute (29) LEO (obstructive sleep apnea): Status: Acute (30) COPD (chronic obstructive pulmonary disease): Status: Acute Plan so I believe that this new sign of lung dysfunction and increased FiO2 requirement is part of a nosocomial lung infection empiric coverage with vancomycin and meropenem has been given as we await the Gram st Quality Stroke Does the patient have a stroke diagnosis?: No VTE Prior VTE?: No VTE Risk Level:: Medical - moderate - high VTE Device Contraindication: Treatment Not Indicated VTE Drug Contraindication: N/A - Med Ordered
[2021-04-02] MEDS: Albuterol/Iprat 2.5/0.5MG 3 ML AMPUL.NEB INHALE ×2 (15:32→19:08)
[2021-04-02 17:51] LABS: Glucose, Whole Blood 119 mg/dL (60-115)
[2021-04-02] MEDS: Albumin Human 25 % 100 ML 200 ML IV (17:51)
[2021-04-02] MEDS: propofoL 1,000 MG/100 ML VIAL 14.4 MG IVCONT (17:52)
[2021-04-02 18:04] LABS: COVID-19 Test Negative (Negative); IDNOW Serial# 55D5AD1C
[2021-04-02] MEDS: Metoprolol Tartrate 5 MG/5 ML VIAL IVPUSH ×2 (20:59→23:36)
[2021-04-02] MEDS: LORazepam 2 MG/ML VIAL 1 MG IVPUSH (21:49)
[2021-04-02] MEDS: propofoL 1,000 MG/100 ML VIAL 19.2 MG IVCONT ×2 (22:05→23:34)
[2021-04-02 23:55] LABS: Glucose, Whole Blood 110 mg/dL (60-115)
[2021-04-03] VITALS (37 sets, daily range): BP systolic 77–123; BP diastolic 44–74; PULSE 100–130; RESP 13–30; TEMP 35.1–37.8; O2SAT 93–99; BMI 40.8
[2021-04-03] MEDS: Sucralfate Oral Suspension 1 GM/10 ML ORAL.SUSP PO ×4 (00:40→20:18)
[2021-04-03] MEDS: Esmolol HCl/NaCl Iso 2,500 MG/250 ML IV.SOLN 15.78 MG IVCONT ×2 (01:30→18:01)
[2021-04-03] MEDS: propofoL 1,000 MG/100 ML VIAL 19.2 MG IVCONT ×3 (02:00→14:28)
[2021-04-03 05:51] LABS: VBG Base Excess 1.1 mmol/L; VBG HCO3 23 mmol/L (22-26); VBG pCO2 30 mmHg; VBG pH 7.49 (7.32-7.43); VBG pO2 46 mmHg
[2021-04-03 06:03] LABS: Hematocrit 23.5 % (37.0-47.0); Hemoglobin 7.2 g/dl (12.0-16.0); Mean Corpuscular HGB Conc 30.6 g/dl (31.0-35.0); Mean Corpuscular Hemoglobin 27.3 pg (27.0-33.0); Mean Platelet Volume 11.2 fL (9.4-12.3); NRBC Pct Auto 0.3 /100WBC (0.0-0.2); Platelet Count 176 X10*3/uL (160-400); Red Blood Count 2.64 X10*6/uL (4.20-5.50); Red Cell Distribution Width 17.7 % (11.0-16.0); WBC ABN SCTR FOR CBC 1
[2021-04-03 06:06] LABS: Venous Blood Gas Refer to POC result
[2021-04-03 06:22] LABS: Albumin Level 2.5 g/dL (3.5-5.0); Anion Gap 17 (12-20); Blood Urea Nitrogen 47 mg/dL (9-16); Calcium 8.2 mg/dL (8.4-10.2); Carbon Dioxide 22 mmol/L (22-29); Chloride 98 mmol/L (96-108); Creatinine Clr Calc Pharmacy 21.7; Estimated Glomerular Filt Rate 14; Glucose Random 127 mg/dL (60-115); Magnesium 1.7 mg/dL (1.6-2.6); Potassium 3.3 mmol/L (3.3-5.1); Sodium 134 mmol/L (135-145)
[2021-04-03 06:33] LABS: Band Neutrophils Percent 17 % (3-5); Basophils Percent Manual 1 % (0-2); Lymphocytes Percent Manual 10 % (20-40); Monocytes Percent Manual 7 % (2-11); Neutrophils Percent Manual 65 % (45-73)
--- NOTE | 2021-04-03 06:33 | PC.NURSE ---
CARE ASSUMED 23:15..REMAINS TUBED/VENTED...AC/VCV....PROPOFOL 40 MCG/KG/MIN AND LEVOPHED 0.1 MCG/KG/MIN...CVP 12...MOSLEY SCANT OUTPUT...SINUS TACH HR 122-124 AT HS....PER REPORT PREVIOUS ISSUES WITH HR UP TO 150 7PM...ICU PA PRESENT...LOPRESSOR 5 MG IV X1 GIVEN...HR DECREASED TO 112-114...AFTER 1 HOUR HR BACK TO 122...PA AWARE...STARTED ESMOLOL DRIP AND TITRATED TO 50 MCG/KG/MIN...LEVOPHED TO 0.14 MCG/KG/MIN...HR 112-114...REMAINS SINUS TACHYCARDIA..NO DYSRHYTHMIAS
[2021-04-03 06:37] LABS: RBC Morphology NOTED
[2021-04-03 06:38] LABS: Basophilic Stippling 1+ (0-2) /OIF; Burr Cells 1+ (0-2) /OIF; Dohle Bodies PRESENT; Hypochromasia 2+ (15-30) /OIF; Ovalocytes 1+ (5-14) /OIF; Platelet Estimate NORMAL (NORMAL); Platelet Morphology Comment NORMAL; Polychromasia 1+ (0-2) /OIF
[2021-04-03 07:25] LABS: Basophils Abs Manual 0.1 X10*3/uL (0.0-0.2); Lymphocytes Absolute Manual 0.8 X10*3/uL (1.2-4.9); Monocytes Absolute Manual 0.5 X10*3/uL (0.1-1.2); Neutrophils Absolute Manual 6.2 X10*3/uL (2.0-8.3); White Blood Count 7.6 X10*3/uL (4.8-10.8)
[2021-04-03] MEDS: Albuterol/Iprat 2.5/0.5MG 3 ML AMPUL.NEB INHALE ×4 (07:46→19:57)
[2021-04-03] MEDS: Metoprolol Tartrate 12.5 MG HALFTAB PO ×2 (08:02→20:18)
[2021-04-03] MEDS: Chlorhexidine Gluc Oral Rinse 15 ML MOUTHWASH BUCCAL ×3 (08:02→20:18)
[2021-04-03] MEDS: Esmolol HCl/NaCl Iso 2,500 MG/250 ML IV.SOLN 31.56 MG IVCONT (08:42)
--- NOTE | 2021-04-03 09:32 | P.CDIC_ITS ---
CDI Concurrent Query Documentation Clarification: PHYSICIAN'S DOCUMENTATION REQUEST Date of Query: 04/03/2132 Patient Name: Deirdre Galeas Admit Date: 03/18/21 Dear Doctor, A review of the medical record indicates additional documentation may be indicated. Please review below and update the documentation accordingly. Risk Factors/Clinical Indicators/Treatments Wound care notes 04/02 - Pressure Injury Stage II coccyx repo q2hr/Triad cream, air loss bed. Based on the above, could you please provide, in the Progress Notes, further information regarding the ulcer/wound: POA: * If a pressure ulcer/injury, please also include the stage* of the ulcer: * Stage 1 - Skin intact, non-blanchable redness * Stage 2 - Partial thickness loss of dermis, includes intact or open blister * Other * Unable to determine *Source: National Pressure Ulcer Advisory Panel (NPUAP) Use of terms such as suspected, likely, concern for, or probable (associated with a specific diagnosis that is being evaluated, monitored, or treated as if it exists) are acceptable and can be coded in the inpatient setting, when documented at the time of discharge. Thank you, Brandy Castro [facility], CDIS Extension: [phone] Please use your independent medical judgment in providing your response. THIS QUERY IS PART OF THE PERMANENT MEDICAL RECORD Provider Response: Other Other Diagnosis: agree that she has a stage II ulcer midline overlying the coccyx
[2021-04-03] MEDS: propofoL 1,000 MG/100 ML VIAL 14.4 MG IVCONT (09:34)
--- NOTE | 2021-04-03 09:37 | MHC.CDI.CONC ---
CDI Concurrent Query Documentation Clarification: PHYSICIAN'S DOCUMENTATION REQUEST Date of Query: 04/03/21 0937 Patient Name: Deirdre Galeas Admit Date: 03/18/21 Dear Doctor, A review of the medical record indicates additional documentation may be indicated. Please review below and update the documentation accordingly. Clinical Indicators: Risk Factors/Clinical Indicators/Treatments Wound care notes 04/02 - Pressure Injury Stage 2 left buttock. Foam dressing. Based on the above, could you please provide, in the Progress Notes, further information regarding the ulcer/wound: POA: If a pressure ulcer/injury, please also include the stage* of the ulcer: Stage 1 - Skin intact, non-blanchable redness Stage 2 - Partial thickness loss of dermis, includes intact or open blister Other Unable to determine *Source: National Pressure Ulcer Advisory Panel (NPUAP) Use of terms such as suspected, likely, concern for, or probable (associated with a specific diagnosis that is being evaluated, monitored, or treated as if it exists) are acceptable and can be coded in the inpatient setting, when documented at the time of discharge. Thank you, Brandy Castro [facility], CDIS Extension:[phone] Please use your independent medical judgment in providing your response. THIS QUERY IS PART OF THE PERMANENT MEDICAL RECORD Provider Response: Other Other Diagnosis: agree that she has overlying left buttock a stage II pressure ulcer
--- NOTE | 2021-04-03 09:39 | PM.PNNEP ---
Subjective Subjective Date of Service: 04/03/21 Interval history: seen and examined on HD vented Physical Exam Vital Signs: Vital Signs: Last Vital Signs Temp 99.1 F 04/03/21 09:00 Pulse 109 H 04/03/21 09:00 Resp 18 04/03/21 09:00 BP 104/72 04/03/21 09:00 Pulse Ox 96 04/03/21 09:00 BMI result Body Mass Index 40.8 Const: General: ill appearing HENMT: Head: Yes normocephalic and Yes atraumatic Neck: Neck: Yes supple Resp: Auscultation: diminished lung sounds Cardio: Heart sounds: S1 normal heart sound present and S2 normal heart sound present GI: Palpation (GI): Soft to palpation and no guarding Extrem: General: Yes pedal edema Objective Data Labs CBC & Chem 7: 04/03/21 05:45 04/03/21 05:45 Labs: Laboratory Results - last 24 hr 04/02/21 04/02/21 04/02/21 11:44 17:33 17:45 WBC RBC Hgb Hct MCV MCH MCHC RDW Plt Count MPV Immature Gran % (Auto) Neut % (Auto) Lymph % (Auto) [place] % (Auto) Eos % (Auto) Baso % (Auto) Lymph # (Auto) [place] # (Auto) Eos # (Auto) Baso # (Auto) Abs Immat Gran (auto) Absolute Neuts (auto) Absolute Nucleated RBC Nucleated RBC % (auto) Neutrophils % (Manual) Band Neutrophils % Lymphocytes % (Manual) Monocytes % (Manual) Basophils % (Manual) Abs Neuts (Manual) Lymphocytes # (Manual) Monocytes # (Manual) Basophils # (Manual) Dohle Bodies Platelet Estimate Plt Morphology Comment RBC Morphology Polychromasia Hypochromasia Basophilic Stippling Ovalocytes [place] Cells VBG pH VBG pCO2 VBG pO2 VBG HCO3 VBG O2 Saturation VBG Base Excess Sodium Potassium Chloride Carbon Dioxide Anion Gap BUN Creatinine Estim Creat Clear Calc Estimated GFR POC Glucose 136 H 119 H Random Glucose Calcium Phosphorus Magnesium Albumin COVID-19 ([facility]) Negative COVID-19 Clin Com See Note 04/02/21 04/03/21 04/03/21 23:40 05:45 05:45 WBC RBC Hgb Hct MCV MCH MCHC RDW Plt Count MPV Immature Gran % (Auto) Neut % (Auto) Lymph % (Auto) [place] % (Auto) Eos % (Auto) Baso % (Auto) Lymph # (Auto) [place] # (Auto) Eos # (Auto) Baso # (Auto) Abs Immat Gran (auto) Absolute Neuts (auto) Absolute Nucleated RBC Nucleated RBC % (auto) Neutrophils % (Manual) Band Neutrophils % Lymphocytes % (Manual) Monocytes % (Manual) Basophils % (Manual) Abs Neuts (Manual) Lymphocytes # (Manual) Monocytes # (Manual) Basophils # (Manual) Dohle Bodies Platelet Estimate Plt Morphology Comment RBC Morphology Polychromasia Hypochromasia Basophilic Stippling Ovalocytes Abi Cells VBG pH VBG pCO2 VBG pO2 VBG HCO3 VBG O2 Saturation VBG Base Excess Sodium 134 L Potassium 3.3 Chloride 98 Carbon Dioxide 22 Anion Gap 17 BUN 47 H Creatinine 3.38 H Estim Creat Clear Calc 21.7 Estimated GFR 14 POC Glucose 110 Random Glucose 127 H Calcium 8.2 L Cancelled Phosphorus 4.0 Cancelled Magnesium 1.7 Cancelled Albumin 2.5 L COVID-19 ([facility]) COVID-19 Clin Com 04/03/21 04/03/21 05:45 05:45 WBC 7.6 RBC 2.64 L Hgb 7.2 L Hct 23.5 L MCV 89.0 MCH 27.3 MCHC 30.6 L RDW 17.7 H Plt Count 176 MPV 11.2 Immature Gran % (Auto) Cancelled Neut % (Auto) Cancelled Lymph % (Auto) Cancelled [place] % (Auto) Cancelled Eos % (Auto) Cancelled Baso % (Auto) Cancelled Lymph # (Auto) Cancelled [place] # (Auto) Cancelled Eos # (Auto) Cancelled Baso # (Auto) Cancelled Abs Immat Gran (auto) Cancelled Absolute Neuts (auto) Cancelled Absolute Nucleated RBC 0.020 H Nucleated RBC % (auto) 0.3 H Neutrophils % (Manual) 65 Band Neutrophils % 17 H Lymphocytes % (Manual) 10 L Monocytes % (Manual) 7 Basophils % (Manual) 1 Abs Neuts (Manual) 6.2 Lymphocytes # (Manual) 0.8 L Monocytes # (Manual) 0.5 Basophils # (Manual) 0.1 Dohle Bodies PRESENT Platelet Estimate NORMAL Plt Morphology Comment NORMAL RBC Morphology NOTED Polychromasia 1+ (0-2) Hypochromasia 2+ (15-30) Basophilic Stippling 1+ (0-2) Ovalocytes 1+ (5-14) Abi Cells 1+ (0-2) VBG pH 7.49 H VBG pCO2 30 VBG pO2 46 VBG HCO3 23 VBG O2 Saturation 78.0 VBG Base Excess 1.1 Sodium Potassium Chloride Carbon Dioxide Anion Gap BUN Creatinine Estim Creat Clear Calc Estimated GFR POC Glucose Random Glucose Calcium Phosphorus Magnesium Albumin COVID-19 ([facility]) COVID-19 Clin Com Microbiology Microbiology Results: Microbiology 04/02/21 13:20 Sputum - Suctioned Gram Stain - Final 04/02/21 13:20 Sputum - Suctioned Sputum Culture - Preliminary Staphylococcus aureus 03/24/21 16:49 Blood - Central Line Blood Culture - Final No growth after 5 days. 03/24/21 16:49 Blood - Central Line Blood Culture - Final No growth after 5 days. 03/24/21 16:50 Urine Catheterized - Witt Catheter Urine Culture - Final No growth. 03/18/21 19:37 Blood - Venous Blood Culture - Final No growth after 5 days. 03/18/21 19:37 Blood - Venous Blood Culture - Final Procedures Date of Service Date of Service: 04/03/21 Assessment & Plan Assessment and plan (1) JOAN (acute kidney injury): Status: Acute (2) COVID-19: Status: Acute (3) CKD (chronic kidney disease) stage 4, GFR 15-29 ml/min: Status: Acute Plan on FiO2 30% volume up JOAN due to acute tubular injury in the setting of SARS COV 2 infection no proteinuria no obstruction known CKD baseline Scr 2-2.5 mg/dl REC UF today with volume optimization HD tomorrow follow kidney function and electrolytes Time Spent With Patient Time: Total time spent is greater than 50% in coordination of care (as documented) at patient's floor/unit and/or counseling patient: Progress Note: Quality Stroke Does the patient have a stroke diagnosis?: No
[2021-04-03 12:20] LABS: Glucose, Whole Blood 144 mg/dL (60-115)
[2021-04-03 12:41] LABS: Vancomycin Random 13.7 mcg/mL (15-20)
--- NOTE | 2021-04-03 13:07 | PHA.PROG ---
Admission Date/Time: March 18, 2021 22:11 Indication: Weight in k.8 kg Adjusted body weight in K.94 [place] body weight in K.7 Obesity Dosing Indication % IBW:197% Serum Creatinine - Last 168 Hours 03/28/21 03/29/21 03/30/21 05:35 05:18 05:30 Creatinine 3.80 H 4.99 H* 4.33 H* 03/31/21 03/31/21 03/31/21 04:23 13:07 19:47 Creatinine 5.16 H* 2.74 H 3.27 H 04/01/21 04/02/21 04/03/21 05:30 05:22 05:45 Creatinine 3.66 H 4.41 H* 3.38 H Estimated CrCl and GFR - Last 168 Hours 03/28/21 03/29/21 03/30/21 05:35 05:18 05:30 Estim Creat Clear Calc 18.7 14.3 16.2 Estimated GFR 12 9 10 03/31/21 03/31/21 03/31/21 04:23 13:07 19:47 Estim Creat Clear Calc 13.6 25.8 21.6 Estimated GFR 9 18 15 04/01/21 04/02/21 04/03/21 05:30 05:22 05:45 Estim Creat Clear Calc 19.4 16.1 21.7 Estimated GFR 13 10 14 Vancomycin Loading Dose: 750 Current Vancomycin Dosing Regimen: BASED ON POST DIALYSIS LEVEL Vancomycin Monitoring using AUC goal of 400 - 600 range with trough as surrogate marker: DIALYSIS DOSING Date and Time for next Vancomycin Level to be drawn: 04/04/21 @ 1200 POST DIAYLIS LEVEL Vancomycin Trough 26.8 mcg/mL (10.0-20.0) H* 03/20/21 18:02 Pharmacist Comments on Vancomycin Plan: Vancomycin dosing will take advantage of [employer] as a clinical decision support tool that uses Bayesian modeling to calculate individual patient's pharmacokinetic parameters and forecast the patient's drug concentration time course with the target goal AUC 24 range of 400 - 600 mg/L/hr.
[2021-04-03] MEDS: vancomycin HCL 750 MG in 0.9 % Sodium Chloride 250 ML 265 MG IV (13:21)
--- NOTE | 2021-04-03 15:18 | MHC.CM.PN ---
Addendum entered by Reba Barajas 04/03/21 15:24: Of note, pt has tested COVID negative on 04/02 Original Note: Pt continues care in ICU for COVID related resp. failure, new AKF on HD d/t ATN r/t COVID. She is intubated with no immediate plans to extubate. Pt initially came from home with [employer] hours and [employer] for O2. This plan seems unlikely as her deconditioning and high acute medical needs lean more to LTAC (if trach/peg warranted) / SNF. CM to follow for finalization of d/c needs.
[2021-04-03] MEDS: dexmedeTOMIDidine HCL/NS 400 MCG/100 ML INFUS..BTL 26.95 MCG IVCONT ×2 (16:00→21:36)
[2021-04-03] MEDS: dexmedeTOMIDidine HCL/NS 400 MCG/100 ML INFUS..BTL 13.48 MCG IVCONT (18:02)
[2021-04-03 18:15] LABS: Glucose, Whole Blood 124 mg/dL (60-115)
[2021-04-04] VITALS (40 sets, daily range): BP systolic 100–150; BP diastolic 50–90; PULSE 91–130; RESP 15–30; TEMP 33.4–38.3; O2SAT 96–100; BMI 39.9
[2021-04-04 00:14] LABS: Glucose, Whole Blood 112 mg/dL (60-115)
[2021-04-04] MEDS: Esmolol HCl/NaCl Iso 2,500 MG/250 ML IV.SOLN 31.56 MG IVCONT ×3 (01:17→18:20)
[2021-04-04] MEDS: dexmedeTOMIDidine HCL/NS 400 MCG/100 ML INFUS..BTL 26.95 MCG IVCONT ×2 (01:17→05:21)
[2021-04-04] MEDS: Sucralfate Oral Suspension 1 GM/10 ML ORAL.SUSP PO ×4 (01:17→20:02)
[2021-04-04 05:32] LABS: MANUAL DIFF FLAG NO
[2021-04-04 05:35] LABS: Imm Gran Abs Auto 0.04 X10*3/uL (0.00-0.03); Imm Gran Pct Auto 0.5 % (0.0-0.4); Lymphocytes Absolute Auto 0.7 X10*3/uL (1.2-4.9); Lymphocytes Percent Auto 8.9 % (20-40); Mean Corpuscular HGB Conc 31.4 g/dl (31.0-35.0); Mean Corpuscular Hemoglobin 27.6 pg (27.0-33.0); Mean Platelet Volume 10.2 fL (9.4-12.3); Monocytes Absolute Auto 0.9 X10*3/uL (0.1-1.2); Monocytes Percent Auto 10.9 % (2-11); Neutrophils Absolute Auto 6.2 x10*3/uL (2.0-8.3); Neutrophils Percent Auto 79.7 % (45-73); Platelet Count 187 X10*3/uL (160-400); Red Cell Distribution Width 17.2 % (11.0-16.0); White Blood Count 7.8 X10*3/uL (4.8-10.8)
[2021-04-04 05:35] LABS: VBG Base Excess -1.9 mmol/L; VBG HCO3 21 mmol/L (22-26); VBG pCO2 29 mmHg; VBG pH 7.46 (7.32-7.43); VBG pO2 44 mmHg
[2021-04-04 05:41] LABS: Hemoglobin 6.9 g/dl (12.0-16.0)
[2021-04-04 05:44] LABS: Glucose, Whole Blood 112 mg/dL (60-115)
[2021-04-04 05:45] LABS: Venous Blood Gas Refer to POC result
[2021-04-04 06:03] LABS: Anion Gap 17 (12-20); Blood Urea Nitrogen 57 mg/dL (9-16); Calcium 8.1 mg/dL (8.4-10.2); Carbon Dioxide 22 mmol/L (22-29); Chloride 100 mmol/L (96-108); Creatinine Clr Calc Pharmacy 17.9; Estimated Glomerular Filt Rate 11; Glucose Random 110 mg/dL (60-115); Magnesium 1.6 mg/dL (1.6-2.6); Phosphorus 5.4 mg/dL (2.7-4.5); Potassium 3.4 mmol/L (3.3-5.1); Sodium 136 mmol/L (135-145)
[2021-04-04] MEDS: Chlorhexidine Gluc Oral Rinse 15 ML MOUTHWASH BUCCAL ×3 (07:27→20:02)
[2021-04-04] MEDS: Albuterol/Iprat 2.5/0.5MG 3 ML AMPUL.NEB INHALE ×4 (07:39→19:50)
--- NOTE | 2021-04-04 09:43 | PC.NURSE ---
0929: shortly after calling RT to unit for PSV trial while awake and alert, patient was noted to be bradycardic with sats in the 50s. 100% blast of O2 given thru vent, ETT suctioned inline for small amount of pale brown/manzo secretions. PACER pads applied prophylactically. Return to baseline HR 100s notified, at bedside 934. PSV trial cancelled, ordered Xopenex UDNtx. RT at bedside again.
[2021-04-04] MEDS: dexmedeTOMIDidine HCL/NS 400 MCG/100 ML INFUS..BTL 20.21 MCG IVCONT ×2 (10:02→15:39)
--- NOTE | 2021-04-04 10:53 | MHC.CLN ---
F/U PT RECEIVING NEPRO AT MAX GOAL RATE 35ML/HR WITH 30ML PROSOURCE BID AND 240CC FREE WATER FLUSHES Q 6HRS TO PROVIDE 1632KCALS (2012KCALS WITH SEDATION; 30.9KCALS/KG BASED ON CMW), 98G PROTEIN (1.5G/KG BASED ON CMW), 1570ML TOTAL WATER FROM FORMULA AND FLUSHES (24ML/KG) CAN ADJUST FREE WATER FLUSHES NEEDED MONITOR TOLERANCE, RESIDUALS AND LYTES
[2021-04-04 12:21] LABS: Glucose, Whole Blood 131 mg/dL (60-115)
--- NOTE | 2021-04-04 15:26 | HE.PHANOTE ---
VANCOMYCIN DOING ADDENDUM BASED ON POST DIALYSIS DOSE HELD TODAY AND TROUGH ORDERED 04/05 @ 1200. NEXT DOSE BASED OF THIS LEVEL
[2021-04-04] MEDS: Albumin Human 25 % 100 ML 200 ML IV (15:38)
--- NOTE | 2021-04-04 15:58 | PM.CCPN ---
Subjective Subjective Date of Service: 04/04/21 Interval History: 60-year-old female who is now beginning to awaken and demonstrates signs of cognitive function with I locking acknowledgement of some conversation al respiratory rate is diminishing and her FiO2 requirement back down to 30% and minutes ventilatory requirement is diminishing and is no demonstration of diaphragmatic effort and is no signs of air trapping and therefore I placed her on a pressure control and I am going to try to wean that over the next Critical Care Time (minutes): 45 Physical Exam Vital Signs: Vital Signs: Last Vital Signs Temp 100.8 F H 04/04/21 15:00 Pulse 106 H 04/04/21 15:46 Resp 20 04/04/21 15:46 BP 142/79 H 04/04/21 15:00 Pulse Ox 99 04/04/21 15:00 BMI result Body Mass Index 39.9 vital signs excellent with systolic 122 and a mean of 84 and was slowly weaning the Levophed requirement as well [place] rologically intact cardiovascular are CVP much improved at 3-4 and and bedside echo with 60% left ventricular ejection fraction lungs with diminishing pleural effusion no interstitial edema abdomen soft with no organomegaly Objective Data Labs CBC & Chem 7: 04/04/21 05:24 04/04/21 05:24 Labs: Laboratory Results - last 24 hr 04/01/21 04/03/21 04/04/21 06:44 18:09 00:10 WBC RBC Hgb Hct MCV MCH MCHC RDW Plt Count MPV Immature Gran % (Auto) Neut % (Auto) Lymph % (Auto) [place] % (Auto) Eos % (Auto) Baso % (Auto) Lymph # (Auto) [place] # (Auto) Eos # (Auto) Baso # (Auto) Abs Immat Gran (auto) Absolute Neuts (auto) Absolute Nucleated RBC Nucleated RBC % (auto) VBG pH VBG pCO2 VBG pO2 VBG HCO3 VBG O2 Saturation VBG Base Excess Sodium Potassium Chloride Carbon Dioxide Anion Gap BUN Creatinine Estim Creat Clear Calc Estimated GFR POC Glucose 124 H 112 Random Glucose Calcium Phosphorus Magnesium Random Vancomycin Blood Type O Negative Antibody Screen NEGATIVE Antigen Identification c Antigen - POSITIVE Crossmatch See Detail Crossmatch ([facility]G) See Detail 04/04/21 04/04/21 04/04/21 05:24 05:24 05:28 WBC 7.8 RBC 2.50 L Hgb 6.9 L* Hct 22.0 L MCV 88.0 MCH 27.6 MCHC 31.4 RDW 17.2 H Plt Count 187 MPV 10.2 Immature Gran % (Auto) 0.5 H Neut % (Auto) 79.7 H Lymph % (Auto) 8.9 L [place] % (Auto) 10.9 Eos % (Auto) 0.0 Baso % (Auto) 0.0 Lymph # (Auto) 0.7 L [place] # (Auto) 0.9 Eos # (Auto) 0.0 Baso # (Auto) 0.0 Abs Immat Gran (auto) 0.04 H Absolute Neuts (auto) 6.2 Absolute Nucleated RBC 0.000 Nucleated RBC % (auto) 0.0 VBG pH 7.46 H VBG pCO2 29 VBG pO2 44 VBG HCO3 21 L VBG O2 Saturation 73.0 VBG Base Excess -1.9 Sodium 136 Potassium 3.4 Chloride 100 Carbon Dioxide 22 Anion Gap 17 BUN 57 H Creatinine 4.05 H* Estim Creat Clear Calc 17.9 Estimated GFR 11 POC Glucose Random Glucose 110 Calcium 8.1 L Phosphorus 5.4 H Magnesium 1.6 Random Vancomycin Blood Type Antibody Screen Antigen Identification Crossmatch Crossmatch ([facility]) 04/04/21 04/04/21 04/04/21 05:37 12:14 12:14 WBC RBC Hgb Hct MCV MCH MCHC RDW Plt Count MPV Immature Gran % (Auto) Neut % (Auto) Lymph % (Auto) [place] % (Auto) Eos % (Auto) Baso % (Auto) Lymph # (Auto) [place] # (Auto) Eos # (Auto) Baso # (Auto) Abs Immat Gran (auto) Absolute Neuts (auto) Absolute Nucleated RBC Nucleated RBC % (auto) VBG pH VBG pCO2 VBG pO2 VBG HCO3 VBG O2 Saturation VBG Base Excess Sodium Potassium Chloride Carbon Dioxide Anion Gap BUN Creatinine Estim Creat Clear Calc Estimated GFR POC Glucose 112 Random Glucose Calcium Phosphorus Magnesium Random Vancomycin 17.0 Blood Type O Negative Antibody Screen NEGATIVE Antigen Identification Crossmatch Crossmatch ([facility]) See Detail 04/04/21 12:18 WBC RBC Hgb Hct MCV MCH MCHC RDW Plt Count MPV Immature Gran % (Auto) Neut % (Auto) Lymph % (Auto) [place] % (Auto) Eos % (Auto) Baso % (Auto) Lymph # (Auto) [place] # (Auto) Eos # (Auto) Baso # (Auto) Abs Immat Gran (auto) Absolute Neuts (auto) Absolute Nucleated RBC Nucleated RBC % (auto) VBG pH VBG pCO2 VBG pO2 VBG HCO3 VBG O2 Saturation VBG Base Excess Sodium Potassium Chloride Carbon Dioxide Anion Gap BUN Creatinine Estim Creat Clear Calc Estimated GFR POC Glucose 131 H Random Glucose Calcium Phosphorus Magnesium Random Vancomycin Blood Type Antibody Screen Antigen Identification Crossmatch Crossmatch ([facility]) Microbiology Microbiology Results: Microbiology 04/02/21 13:20 Sputum - Suctioned Gram Stain - Final 04/02/21 13:20 Sputum - Suctioned Sputum Culture - Final Methicillin Res Staph Aureus 03/24/21 16:49 Blood - Central Line Blood Culture - Final No growth after 5 days. 03/24/21 16:49 Blood - Central Line Blood Culture - Final No growth after 5 days. 03/24/21 16:50 Urine Catheterized - Witt Catheter Urine Culture - Final No growth. 03/18/21 19:37 Blood - Venous Blood Culture - Final No growth after 5 days. 03/18/21 19:37 Blood - Venous Blood Culture - Final Progress Note: A&P Assessment and plan (1) Acute blood loss anemia: Status: Acute (2) Uremia: Status: Acute (3) Metabolic encephalopathy: Status: Acute (4) Acute on chronic systolic (congestive) heart failure: Status: Acute (5) Hx of cardiac arrest: Status: Acute (6) Acute respiratory failure with hypoxia: Status: Acute (7) Elevated troponin: Status: Acute (8) Acute respiratory distress: Status: Acute (9) Hypokalemia: Status: Acute (10) JOAN (acute kidney injury): Status: Acute (11) Aspiration into airway: Status: Acute (12) Pneumonia: Status: Acute (13) COVID-19: Status: Acute (14) Respiratory failure: Status: Acute (15) Osteoarthritis of ankles, bilateral: Status: Acute (16) Umbilical hernia: Status: Acute (17) Olecranon bursitis of left elbow: Status: Acute (18) Tubulovillous adenoma of large intestine: Status: Acute (19) CKD (chronic kidney disease) stage 4, GFR 15-29 ml/min: Status: Acute (20) Family history of colon cancer: Status: Acute (21) Multiple fractures of ribs: Status: Acute (22) Anemia in chronic kidney disease: Status: Acute (23) Vitamin D deficiency: Status: Acute (24) Breast cancer screening by mammogram: Status: Resolved (25) Tubular adenoma of colon: Status: Acute (26) Dyslipidemia: Status: Acute (27) Restrictive lung disease: Status: Acute (28) Lung cancer: Status: Acute (29) LEO (obstructive sleep apnea): Status: Acute (30) COPD (chronic obstructive pulmonary disease): Status: Acute Plan plan is to wean the last of the dexmedetomidine and then start weaning the degree of pressure support in the hopes that we can have a successful ventilator weaning trial will give a small post dialysis dose of 500 mg vancomycin Quality Stroke Does the patient have a stroke diagnosis?: No VTE Prior VTE?: No VTE Risk Level:: Medical - moderate - high VTE Device Contraindication: Treatment Not Indicated VTE Drug Contraindication: N/A - Med Ordered
--- NOTE | 2021-04-04 16:52 | PM.PNNEP ---
Subjective Subjective Date of Service: 04/04/21 Interval history: Events noted. All recent data reviewed Physical Exam Vital Signs: Vital Signs: Last Vital Signs Temp 100.9 F H 04/04/21 16:00 Pulse 118 H 04/04/21 16:00 Resp 21 H 04/04/21 16:00 BP 104/50 L 04/04/21 16:00 Pulse Ox 100 04/04/21 16:00 BMI result Body Mass Index 39.9 Const: General: comfortable Neck: Neck: Yes supple Resp: Auscultation: diminished lung sounds Cardio: Rate: regular rate GI: Palpation (GI): Soft to palpation Objective Data Labs CBC & Chem 7: 04/04/21 05:24 04/04/21 05:24 Labs: Laboratory Results - last 24 hr 04/01/21 04/03/21 04/04/21 06:44 18:09 00:10 WBC RBC Hgb Hct MCV MCH MCHC RDW Plt Count MPV Immature Gran % (Auto) Neut % (Auto) Lymph % (Auto) [place] % (Auto) Eos % (Auto) Baso % (Auto) Lymph # (Auto) [place] # (Auto) Eos # (Auto) Baso # (Auto) Abs Immat Gran (auto) Absolute Neuts (auto) Absolute Nucleated RBC Nucleated RBC % (auto) VBG pH VBG pCO2 VBG pO2 VBG HCO3 VBG O2 Saturation VBG Base Excess Sodium Potassium Chloride Carbon Dioxide Anion Gap BUN Creatinine Estim Creat Clear Calc Estimated GFR POC Glucose 124 H 112 Random Glucose Calcium Phosphorus Magnesium Random Vancomycin Blood Type O Negative Antibody Screen NEGATIVE Antigen Identification c Antigen - POSITIVE Crossmatch See Detail Crossmatch ([facility]) See Detail 04/04/21 04/04/21 04/04/21 05:24 05:24 05:28 WBC 7.8 RBC 2.50 L Hgb 6.9 L* Hct 22.0 L MCV 88.0 MCH 27.6 MCHC 31.4 RDW 17.2 H Plt Count 187 MPV 10.2 Immature Gran % (Auto) 0.5 H Neut % (Auto) 79.7 H Lymph % (Auto) 8.9 L [place] % (Auto) 10.9 Eos % (Auto) 0.0 Baso % (Auto) 0.0 Lymph # (Auto) 0.7 L [place] # (Auto) 0.9 Eos # (Auto) 0.0 Baso # (Auto) 0.0 Abs Immat Gran (auto) 0.04 H Absolute Neuts (auto) 6.2 Absolute Nucleated RBC 0.000 Nucleated RBC % (auto) 0.0 VBG pH 7.46 H VBG pCO2 29 VBG pO2 44 VBG HCO3 21 L VBG O2 Saturation 73.0 VBG Base Excess -1.9 Sodium 136 Potassium 3.4 Chloride 100 Carbon Dioxide 22 Anion Gap 17 BUN 57 H Creatinine 4.05 H* Estim Creat Clear Calc 17.9 Estimated GFR 11 POC Glucose Random Glucose 110 Calcium 8.1 L Phosphorus 5.4 H Magnesium 1.6 Random Vancomycin Blood Type Antibody Screen Antigen Identification Crossmatch Crossmatch ([facility]) 04/04/21 04/04/21 04/04/21 05:37 12:14 12:14 WBC RBC Hgb Hct MCV MCH MCHC RDW Plt Count MPV Immature Gran % (Auto) Neut % (Auto) Lymph % (Auto) [place] % (Auto) Eos % (Auto) Baso % (Auto) Lymph # (Auto) [place] # (Auto) Eos # (Auto) Baso # (Auto) Abs Immat Gran (auto) Absolute Neuts (auto) Absolute Nucleated RBC Nucleated RBC % (auto) VBG pH VBG pCO2 VBG pO2 VBG HCO3 VBG O2 Saturation VBG Base Excess Sodium Potassium Chloride Carbon Dioxide Anion Gap BUN Creatinine Estim Creat Clear Calc Estimated GFR POC Glucose 112 Random Glucose Calcium Phosphorus Magnesium Random Vancomycin 17.0 Blood Type O Negative Antibody Screen NEGATIVE Antigen Identification Crossmatch Crossmatch ([facility]) See Detail 04/04/21 12:18 WBC RBC Hgb Hct MCV MCH MCHC RDW Plt Count MPV Immature Gran % (Auto) Neut % (Auto) Lymph % (Auto) [place] % (Auto) Eos % (Auto) Baso % (Auto) Lymph # (Auto) [place] # (Auto) Eos # (Auto) Baso # (Auto) Abs Immat Gran (auto) Absolute Neuts (auto) Absolute Nucleated RBC Nucleated RBC % (auto) VBG pH VBG pCO2 VBG pO2 VBG HCO3 VBG O2 Saturation VBG Base Excess Sodium Potassium Chloride Carbon Dioxide Anion Gap BUN Creatinine Estim Creat Clear Calc Estimated GFR POC Glucose 131 H Random Glucose Calcium Phosphorus Magnesium Random Vancomycin Blood Type Antibody Screen Antigen Identification Crossmatch Crossmatch ([facility]) Microbiology Microbiology Results: Microbiology 04/02/21 13:20 Sputum - Suctioned Gram Stain - Final 04/02/21 13:20 Sputum - Suctioned Sputum Culture - Final Methicillin Res Staph Aureus 03/24/21 16:49 Blood - Central Line Blood Culture - Final No growth after 5 days. 03/24/21 16:49 Blood - Central Line Blood Culture - Final No growth after 5 days. 03/24/21 16:50 Urine Catheterized - Witt Catheter Urine Culture - Final No growth. 03/18/21 19:37 Blood - Venous Blood Culture - Final No growth after 5 days. 03/18/21 19:37 Blood - Venous Blood Culture - Final Procedures Date of Service Date of Service: 04/04/21 Assessment & Plan Assessment and plan (1) JOAN (acute kidney injury): Status: Acute Assessment and Plan: JOAN due to acute tubular injury in the setting of SARS COV 2 infection no proteinuria no obstruction known CKD baseline Scr 2-2.5 mg/dl Shall continue renal support for now Will closely follow up Time Spent With Patient Time: Total time spent is greater than 50% in coordination of care (as documented) at patient's floor/unit and/or counseling patient: Progress Note: Quality Stroke Does the patient have a stroke diagnosis?: No
--- NOTE | 2021-04-04 17:02 | PHA.PROG ---
Admission Date/Time: March 18, 2021 22:11 Indication: Weight in k.7 kg Adjusted body weight in Kg: [place] body weight in Kg: Obesity Dosing Indication % IBW: Serum Creatinine - Last 168 Hours 03/29/21 03/30/21 03/31/21 05:18 05:30 04:23 Creatinine 4.99 H* 4.33 H* 5.16 H* 03/31/21 03/31/21 04/01/21 13:07 19:47 05:30 Creatinine 2.74 H 3.27 H 3.66 H 04/02/21 04/03/21 04/04/21 05:22 05:45 05:24 Creatinine 4.41 H* 3.38 H 4.05 H* Estimated CrCl and GFR - Last 168 Hours 03/29/21 03/30/21 03/31/21 05:18 05:30 04:23 Estim Creat Clear Calc 14.3 16.2 13.6 Estimated GFR 9 10 9 03/31/21 03/31/21 04/01/21 13:07 19:47 05:30 Estim Creat Clear Calc 25.8 21.6 19.4 Estimated GFR 18 15 13 04/02/21 04/03/21 04/04/21 05:22 05:45 05:24 Estim Creat Clear Calc 16.1 21.7 17.9 Estimated GFR 10 14 11 Vancomycin Loading Dose: Current Vancomycin Dosing Regimen: Vancomycin Monitoring using AUC goal of 400 - 600 range with trough as surrogate marker: Date and Time for next Vancomycin Level to be drawn: Vancomycin Trough 26.8 mcg/mL (10.0-20.0) H* 03/20/21 18:02 Pharmacist Comments on Vancomycin Plan: Per disccusion with Dr David, next dialysis session to be on 04/05, one time vanco 500 mg to be given Vancomycin dosing will take advantage of [employer] as a clinical decision support tool that uses Bayesian modeling to calculate individual patient's pharmacokinetic parameters and forecast the patient's drug concentration time course with the target goal AUC 24 range of 400 - 600 mg/L/hr.
--- NOTE | 2021-04-04 17:05 | PHA.PROG ---
Admission Date/Time: March 18, 2021 22:11 Indication: Weight in k.7 kg Adjusted body weight in Kg: [place] body weight in Kg: Obesity Dosing Indication % IBW: Serum Creatinine - Last 168 Hours 03/29/21 03/30/21 03/31/21 05:18 05:30 04:23 Creatinine 4.99 H* 4.33 H* 5.16 H* 03/31/21 03/31/21 04/01/21 13:07 19:47 05:30 Creatinine 2.74 H 3.27 H 3.66 H 04/02/21 04/03/21 04/04/21 05:22 05:45 05:24 Creatinine 4.41 H* 3.38 H 4.05 H* Estimated CrCl and GFR - Last 168 Hours 03/29/21 03/30/21 03/31/21 05:18 05:30 04:23 Estim Creat Clear Calc 14.3 16.2 13.6 Estimated GFR 9 10 9 03/31/21 03/31/21 04/01/21 13:07 19:47 05:30 Estim Creat Clear Calc 25.8 21.6 19.4 Estimated GFR 18 15 13 04/02/21 04/03/21 04/04/21 05:22 05:45 05:24 Estim Creat Clear Calc 16.1 21.7 17.9 Estimated GFR 10 14 11 Vancomycin Loading Dose: Current Vancomycin Dosing Regimen: Vancomycin Monitoring using AUC goal of 400 - 600 range with trough as surrogate marker: Date and Time for next Vancomycin Level to be drawn: Vancomycin Trough 26.8 mcg/mL (10.0-20.0) H* 03/20/21 18:02 Pharmacist Comments on Vancomycin Plan:Per disccusion with Dr David, next dialysis session to be on 04/06, one time vanco 500 mg to be given Vancomycin dosing will take advantage of [employer] as a clinical decision support tool that uses Bayesian modeling to calculate individual patient's pharmacokinetic parameters and forecast the patient's drug concentration time course with the target goal AUC 24 range of 400 - 600 mg/L/hr.
[2021-04-04] MEDS: vancomycin HCL 500 MG in 0.9 % Sodium Chloride 100 ML 110 MG IV (17:50)
[2021-04-04 18:21] LABS: Glucose, Whole Blood 146 mg/dL (60-115)
[2021-04-04] MEDS: dexmedeTOMIDidine HCL/NS 400 MCG/100 ML INFUS..BTL 37.73 MCG IVCONT (19:33)
[2021-04-04] MEDS: Metoprolol Tartrate 12.5 MG HALFTAB PO (20:02)
[2021-04-04] MEDS: LORazepam 2 MG/ML VIAL 1 MG IVPUSH (20:06)
[2021-04-04] MEDS: Esmolol HCl/NaCl Iso 2,500 MG/250 ML IV.SOLN 63.12 MG IVCONT (22:11)
[2021-04-04] MEDS: dexmedeTOMIDidine HCL/NS 400 MCG/100 ML INFUS..BTL 40.43 MCG IVCONT (22:11)
[2021-04-04 23:29] LABS: Glucose, Whole Blood 111 mg/dL (60-115)
[2021-04-05] VITALS (38 sets, daily range): BP systolic 87–127; BP diastolic 46–95; PULSE 95–120; RESP 18–40; TEMP 33.9–38.4; O2SAT 95–98; BMI 40.4
[2021-04-05] MEDS: dexmedeTOMIDidine HCL/NS 400 MCG/100 ML INFUS..BTL 35.04 MCG IVCONT ×3 (01:19→07:25)
[2021-04-05] MEDS: Sucralfate Oral Suspension 1 GM/10 ML ORAL.SUSP PO ×4 (01:19→20:07)
[2021-04-05] MEDS: Esmolol HCl/NaCl Iso 2,500 MG/250 ML IV.SOLN 31.56 MG IVCONT (04:17)
[2021-04-05 05:24] LABS: VBG Base Excess 2.6 mmol/L; VBG HCO3 24 mmol/L (22-26); VBG pCO2 28 mmHg; VBG pH 7.54 (7.32-7.43); VBG pO2 48 mmHg
[2021-04-05 05:37] LABS: Hematocrit 23.9 % (37.0-47.0); Hemoglobin 7.6 g/dl (12.0-16.0); Imm Gran Abs Auto 0.04 X10*3/uL (0.00-0.03); Imm Gran Pct Auto 0.6 % (0.0-0.4); Lymphocytes Absolute Auto 0.6 X10*3/uL (1.2-4.9); Lymphocytes Percent Auto 8.1 % (20-40); MANUAL DIFF FLAG NO; Mean Corpuscular HGB Conc 31.8 g/dl (31.0-35.0); Mean Corpuscular Hemoglobin 28.5 pg (27.0-33.0); Mean Corpuscular Volume 89.5 fL (80.0-98.0); Mean Platelet Volume 10.3 fL (9.4-12.3); Monocytes Absolute Auto 0.9 X10*3/uL (0.1-1.2); Monocytes Percent Auto 13.4 % (2-11); Neutrophils Absolute Auto 5.5 x10*3/uL (2.0-8.3); Neutrophils Percent Auto 77.9 % (45-73); Platelet Count 188 X10*3/uL (160-400); Red Blood Count 2.67 X10*6/uL (4.20-5.50); Red Cell Distribution Width 16.4 % (11.0-16.0)
[2021-04-05 05:55] LABS: Glucose, Whole Blood 122 mg/dL (60-115)
[2021-04-05 05:56] LABS: Alanine Aminotransferase 59 U/L (0-31); Albumin Level 2.8 g/dL (3.5-5.0); Alkaline Phosphatase 85 U/L (39-117); Anion Gap 16 (12-20); Aspartate Amino Transferase 25 U/L (5-31); Bilirubin Direct 0.3 mg/dL (0.0-0.5); Bilirubin Total 0.5 mg/dL (0.0-1.0); Blood Urea Nitrogen 44 mg/dL (9-16); Calcium 8.5 mg/dL (8.4-10.2); Carbon Dioxide 24 mmol/L (22-29); Chloride 101 mmol/L (96-108); Creatinine Clr Calc Pharmacy 23.5; Estimated Glomerular Filt Rate 15; Glucose Random 126 mg/dL (60-115); Magnesium 1.6 mg/dL (1.6-2.6); Phosphorus 3.2 mg/dL (2.7-4.5); Potassium 3.3 mmol/L (3.3-5.1); Sodium 138 mmol/L (135-145); Total Protein 4.4 g/dL (6.5-8.0)
[2021-04-05 06:02] LABS: Troponin-I High Sensitivity 215.8 ng/L (<3.5-17.0)
[2021-04-05 06:04] LABS: Venous Blood Gas Refer to POC result
[2021-04-05] MEDS: Metoprolol Tartrate 12.5 MG HALFTAB PO ×2 (07:24→20:07)
[2021-04-05] MEDS: Chlorhexidine Gluc Oral Rinse 15 ML MOUTHWASH BUCCAL ×3 (07:24→20:07)
[2021-04-05] MEDS: Albuterol/Iprat 2.5/0.5MG 3 ML AMPUL.NEB INHALE ×4 (07:48→20:43)
[2021-04-05] MEDS: Esmolol HCl/NaCl Iso 2,500 MG/250 ML IV.SOLN 63.12 MG IVCONT ×5 (09:11→23:20)
[2021-04-05 12:14] LABS: Glucose, Whole Blood 111 mg/dL (60-115)
[2021-04-05] MEDS: Midazolam HCl/PF 2 MG/2 ML VIAL 4 MG IVPUSH (12:41)
[2021-04-05] MEDS: propofoL 1,000 MG/100 ML VIAL 12.8 MG IVCONT (12:45)
--- NOTE | 2021-04-05 14:24 | P.PNNP_ITS ---
Subjective Subjective Date of Service: 04/05/21 Interval history: Events noted. All recent data reviewed; D/W ICU Attending Physical Exam 2 Vital Signs: Vital Signs: Last Vital Signs Temp 100.0 F 04/05/21 13:00 Pulse 112 H 04/05/21 13:00 Resp 37 H 04/05/21 13:00 BP 116/64 04/05/21 13:00 Pulse Ox 95 04/05/21 13:00 BMI result Body Mass Index 40.4 Const: Other: Intubated Resp: Auscultation: diminished lung sounds Cardio: Rate: regular rate GI: Palpation (GI): Soft to palpation Neuro: Other: Sedated Objective Data Labs CBC & Chem 7: 04/05/21 05:14 04/05/21 05:14 Labs: Laboratory Results - last 24 hr 04/04/21 04/04/21 04/05/21 18:16 23:22 05:14 WBC 7.0 RBC 2.67 L Hgb 7.6 L Hct 23.9 L MCV 89.5 MCH 28.5 MCHC 31.8 RDW 16.4 H Plt Count 188 MPV 10.3 Immature Gran % (Auto) 0.6 H Neut % (Auto) 77.9 H Lymph % (Auto) 8.1 L [place] % (Auto) 13.4 H Eos % (Auto) 0.0 Baso % (Auto) 0.0 Lymph # (Auto) 0.6 L [place] # (Auto) 0.9 Eos # (Auto) 0.0 Baso # (Auto) 0.0 Abs Immat Gran (auto) 0.04 H Absolute Neuts (auto) 5.5 Absolute Nucleated RBC 0.000 Nucleated RBC % (auto) 0.0 VBG pH VBG pCO2 VBG pO2 VBG HCO3 VBG O2 Saturation VBG Base Excess Sodium Potassium Chloride Carbon Dioxide Anion Gap BUN Creatinine Estim Creat Clear Calc Estimated GFR POC Glucose 146 H 111 Random Glucose Calcium Phosphorus Magnesium Total Bilirubin Direct Bilirubin AST ALT Alkaline Phosphatase Troponin I High Sens Total Protein Albumin 04/05/21 04/05/21 04/05/21 05:14 05:14 05:15 WBC RBC Hgb Hct MCV MCH MCHC RDW Plt Count MPV Immature Gran % (Auto) Neut % (Auto) Lymph % (Auto) [place] % (Auto) Eos % (Auto) Baso % (Auto) Lymph # (Auto) [place] # (Auto) Eos # (Auto) Baso # (Auto) Abs Immat Gran (auto) Absolute Neuts (auto) Absolute Nucleated RBC Nucleated RBC % (auto) VBG pH 7.54 H VBG pCO2 28 VBG pO2 48 VBG HCO3 24 VBG O2 Saturation 84.0 VBG Base Excess 2.6 Sodium 138 Potassium 3.3 Chloride 101 Carbon Dioxide 24 Anion Gap 16 BUN 44 H Creatinine 3.10 H Estim Creat Clear Calc 23.5 Estimated GFR 15 POC Glucose Random Glucose 126 H Calcium 8.5 Phosphorus 3.2 Magnesium 1.6 Total Bilirubin 0.5 Direct Bilirubin 0.3 AST 25 D ALT 59 H Alkaline Phosphatase 85 D Troponin I High Sens 215.8 H* D Total Protein 4.4 L Albumin 2.8 L 04/05/21 04/05/21 05:50 12:09 WBC RBC Hgb Hct MCV MCH MCHC RDW Plt Count MPV Immature Gran % (Auto) Neut % (Auto) Lymph % (Auto) [place] % (Auto) Eos % (Auto) Baso % (Auto) Lymph # (Auto) [place] # (Auto) Eos # (Auto) Baso # (Auto) Abs Immat Gran (auto) Absolute Neuts (auto) Absolute Nucleated RBC Nucleated RBC % (auto) VBG pH VBG pCO2 VBG pO2 VBG HCO3 VBG O2 Saturation VBG Base Excess Sodium Potassium Chloride Carbon Dioxide Anion Gap BUN Creatinine Estim Creat Clear Calc Estimated GFR POC Glucose 122 H 111 Random Glucose Calcium Phosphorus Magnesium Total Bilirubin Direct Bilirubin AST ALT Alkaline Phosphatase Troponin I High Sens Total Protein Albumin Microbiology Microbiology Results: Microbiology 04/02/21 13:20 Sputum - Suctioned Gram Stain - Final 04/02/21 13:20 Sputum - Suctioned Sputum Culture - Final Methicillin Res Staph Aureus 03/24/21 16:49 Blood - Central Line Blood Culture - Final No growth after 5 days. 03/24/21 16:49 Blood - Central Line Blood Culture - Final No growth after 5 days. 03/24/21 16:50 Urine Catheterized - Witt Catheter Urine Culture - Final No growth. 03/18/21 19:37 Blood - Venous Blood Culture - Final No growth after 5 days. 03/18/21 19:37 Blood - Venous Blood Culture - Final Procedures Date of Service Date of Service: 04/05/21 Assessment & Plan Assessment and plan (1) JOAN (acute kidney injury): Status: Acute Assessment and Plan: JOAN due to acute tubular injury in the setting of SARS COV 2 infection no proteinuria no obstruction known CKD baseline Scr 2-2.5 mg/dl Was dialyzed yesterday( Next HD Wednesday) Shall continue renal support for now Will closely follow up Time Spent With Patient Time: Total time spent is greater than 50% in coordination of care (as documented) at patient's floor/unit and/or counseling patient: Progress Note: Quality Stroke Does the patient have a stroke diagnosis?: No
--- NOTE | 2021-04-05 14:27 | P.PNCC_ITS ---
Subjective Subjective Date of Service: 04/05/21 Interval History: 60-year-old morbidly obese individual with COVID-19 pneumonia and hypoxic respiratory failure but also significant and probably COVID related encephalopathy and now intubated for well over 2 weeks and down to a minute vent ilatory requirement that is under 10 L and FiO2 of 30% but also has the stage 5 and end-stage renal disease and is dialysis dependent lately also complicated by low-grade fever probable nosocomial staphylococcal pneumonia and each day giving her sedation holiday to evaluate mental status and beginning to wake up with some early signs of cognitive function but what is impeding her ability to be weaned from the ventilator is the persistent fluid overload in every day and the burn other 3 L in the [place] and then I found out that today she is not on the dialysis schedule and she clearly needs to at least ultrafiltration none and I will try to arrange that with renal so that we could make another attempt at weaning her from the ventilator Critical Care Time (minutes): 60 Physical Exam Vital Signs: Vital Signs: Last Vital Signs Temp 100.0 F 04/05/21 13:00 Pulse 112 H 04/05/21 13:00 Resp 37 H 04/05/21 13:00 BP 116/64 04/05/21 13:00 Pulse Ox 95 04/05/21 13:00 BMI result Body Mass Index 40.4 she had increased tachypnea with evidence of auto PEEP needed to be recent dated and given 1 dose of rocuronium and and placed back again on volume control at a modest volume because of high peak airway pressures and with that all signs of auto PEEP disappeared she became more synchronous with the ventilator she has got 4+ virtual and anasarca cardiovascular ejection fraction repaired by bedside echo still has diffuse no nspecific ST-T changes and I do believe this is a myoca rditis also related to COVID diminished bilateral breath sounds abdomen benign with no organomegaly Objective Data Labs CBC & Chem 7: 04/06/21 05:20 04/06/21 05:20 Labs: Laboratory Results - last 24 hr 04/04/21 04/04/21 04/05/21 18:16 23:22 05:14 WBC 7.0 RBC 2.67 L Hgb 7.6 L Hct 23.9 L MCV 89.5 MCH 28.5 MCHC 31.8 RDW 16.4 H Plt Count 188 MPV 10.3 Immature Gran % (Auto) 0.6 H Neut % (Auto) 77.9 H Lymph % (Auto) 8.1 L [place] % (Auto) 13.4 H Eos % (Auto) 0.0 Baso % (Auto) 0.0 Lymph # (Auto) 0.6 L [place] # (Auto) 0.9 Eos # (Auto) 0.0 Baso # (Auto) 0.0 Abs Immat Gran (auto) 0.04 H Absolute Neuts (auto) 5.5 Absolute Nucleated RBC 0.000 Nucleated RBC % (auto) 0.0 VBG pH VBG pCO2 VBG pO2 VBG HCO3 VBG O2 Saturation VBG Base Excess Sodium Potassium Chloride Carbon Dioxide Anion Gap BUN Creatinine Estim Creat Clear Calc Estimated GFR POC Glucose 146 H 111 Random Glucose Calcium Phosphorus Magnesium Total Bilirubin Direct Bilirubin AST ALT Alkaline Phosphatase Troponin I High Sens Total Protein Albumin 04/05/21 04/05/21 04/05/21 05:14 05:14 05:15 WBC RBC Hgb Hct MCV MCH MCHC RDW Plt Count MPV Immature Gran % (Auto) Neut % (Auto) Lymph % (Auto) [place] % (Auto) Eos % (Auto) Baso % (Auto) Lymph # (Auto) [place] # (Auto) Eos # (Auto) Baso # (Auto) Abs Immat Gran (auto) Absolute Neuts (auto) Absolute Nucleated RBC Nucleated RBC % (auto) VBG pH 7.54 H VBG pCO2 28 VBG pO2 48 VBG HCO3 24 VBG O2 Saturation 84.0 VBG Base Excess 2.6 Sodium 138 Potassium 3.3 Chloride 101 Carbon Dioxide 24 Anion Gap 16 BUN 44 H Creatinine 3.10 H Estim Creat Clear Calc 23.5 Estimated GFR 15 POC Glucose Random Glucose 126 H Calcium 8.5 Phosphorus 3.2 Magnesium 1.6 Total Bilirubin 0.5 Direct Bilirubin 0.3 AST 25 D ALT 59 H Alkaline Phosphatase 85 D Troponin I High Sens 215.8 H* D Total Protein 4.4 L Albumin 2.8 L 04/05/21 04/05/21 05:50 12:09 WBC RBC Hgb Hct MCV MCH MCHC RDW Plt Count MPV Immature Gran % (Auto) Neut % (Auto) Lymph % (Auto) [place] % (Auto) Eos % (Auto) Baso % (Auto) Lymph # (Auto) [place] # (Auto) Eos # (Auto) Baso # (Auto) Abs Immat Gran (auto) Absolute Neuts (auto) Absolute Nucleated RBC Nucleated RBC % (auto) VBG pH VBG pCO2 VBG pO2 VBG HCO3 VBG O2 Saturation VBG Base Excess Sodium Potassium Chloride Carbon Dioxide Anion Gap BUN Creatinine Estim Creat Clear Calc Estimated GFR POC Glucose 122 H 111 Random Glucose Calcium Phosphorus Magnesium Total Bilirubin Direct Bilirubin AST ALT Alkaline Phosphatase Troponin I High Sens Total Protein Albumin Microbiology Microbiology Results: Microbiology 04/02/21 13:20 Sputum - Suctioned Gram Stain - Final 04/02/21 13:20 Sputum - Suctioned Sputum Culture - Final Methicillin Res Staph Aureus 03/24/21 16:49 Blood - Central Line Blood Culture - Final No growth after 5 days. 03/24/21 16:49 Blood - Central Line Blood Culture - Final No growth after 5 days. 03/24/21 16:50 Urine Catheterized - Witt Catheter Urine Culture - Final No growth. 03/18/21 19:37 Blood - Venous Blood Culture - Final No growth after 5 days. 03/18/21 19:37 Blood - Venous Blood Culture - Final Progress Note: A&P Assessment and plan (1) Acute blood loss anemia: Status: Acute (2) Uremia: Status: Acute (3) Metabolic encephalopathy: Status: Acute (4) Acute on chronic systolic (congestive) heart failure: Status: Acute (5) Hx of cardiac arrest: Status: Acute (6) Acute respiratory failure with hypoxia: Status: Acute (7) Elevated troponin: Status: Acute (8) Acute respiratory distress: Status: Acute (9) Hypokalemia: Status: Acute (10) JOAN (acute kidney injury): Status: Acute (11) Aspiration into airway: Status: Acute (12) Pneumonia: Status: Acute (13) COVID-19: Status: Acute (14) Respiratory failure: Status: Acute (15) Osteoarthritis of ankles, bilateral: Status: Acute (16) Umbilical hernia: Status: Acute (17) Olecranon bursitis of left elbow: Status: Acute (18) Tubulovillous adenoma of large intestine: Status: Acute (19) CKD (chronic kidney disease) stage 4, GFR 15-29 ml/min: Status: Acute (20) Family history of colon cancer: Status: Acute (21) Multiple fractures of ribs: Status: Acute (22) Anemia in chronic kidney disease: Status: Acute (23) Vitamin D deficiency: Status: Acute (24) Breast cancer screening by mammogram: Status: Resolved (25) Tubular adenoma of colon: Status: Acute (26) Dyslipidemia: Status: Acute (27) Restrictive lung disease: Status: Acute (28) Lung cancer: Status: Acute (29) LEO (obstructive sleep apnea): Status: Acute (30) COPD (chronic obstructive pulmonary disease): Status: Acute Plan plan would be to arrange for an of dialysis after which we can give her another dose of vancomycin but with her creeping CVP of 10 11 and now rising blood pressures as well I think she is beginning to recoup some 3rd space fluid and it is burning her intrathoracic space so will see if we can arrange that Quality Stroke Does the patient have a stroke diagnosis?: No VTE Prior VTE?: No VTE Risk Level:: Medical - moderate - high VTE Device Contraindication: Treatment Not Indicated VTE Drug Contraindication: N/A - Med Ordered
[2021-04-05] MEDS: Rocuronium Bromide 50 MG/5 ML VIAL IVPUSH (14:31)
[2021-04-05] MEDS: propofoL 1,000 MG/100 ML VIAL 25.61 MG IVCONT ×3 (15:42→22:30)
[2021-04-05 17:24] LABS: Glucose, Whole Blood 137 mg/dL (60-115)
[2021-04-05 23:31] LABS: Glucose, Whole Blood 128 mg/dL (60-115)
[2021-04-06] VITALS (36 sets, daily range): BP systolic 90–165; BP diastolic 52–84; PULSE 93–123; RESP 15–38; TEMP 33.5–38; O2SAT 95–108; BMI 41.8
[2021-04-06] MEDS: Sucralfate Oral Suspension 1 GM/10 ML ORAL.SUSP PO ×4 (01:56→21:09)
[2021-04-06] MEDS: propofoL 1,000 MG/100 ML VIAL 25.61 MG IVCONT ×2 (01:57→04:22)
[2021-04-06] MEDS: Esmolol HCl/NaCl Iso 2,500 MG/250 ML IV.SOLN 63.12 MG IVCONT ×2 (02:46→05:19)
[2021-04-06 05:18] LABS: Glucose, Whole Blood 114 mg/dL (60-115)
[2021-04-06 05:34] LABS: VBG Base Excess -1.8 mmol/L; VBG HCO3 20 mmol/L (22-26); VBG pCO2 27 mmHg; VBG pH 7.48 (7.32-7.43); VBG pO2 48 mmHg
[2021-04-06 05:52] LABS: MANUAL DIFF FLAG NO
[2021-04-06 05:57] LABS: Hematocrit 24.6 % (37.0-47.0); Hemoglobin 7.6 g/dl (12.0-16.0); Imm Gran Abs Auto 0.08 X10*3/uL (0.00-0.03); Imm Gran Pct Auto 1.1 % (0.0-0.4); Lymphocytes Absolute Auto 0.4 X10*3/uL (1.2-4.9); Lymphocytes Percent Auto 5.7 % (20-40); Mean Corpuscular HGB Conc 30.9 g/dl (31.0-35.0); Mean Corpuscular Hemoglobin 27.9 pg (27.0-33.0); Mean Corpuscular Volume 90.4 fL (80.0-98.0); Mean Platelet Volume 9.9 fL (9.4-12.3); Monocytes Absolute Auto 0.7 X10*3/uL (0.1-1.2); Monocytes Percent Auto 9.5 % (2-11); Neutrophils Absolute Auto 6.3 x10*3/uL (2.0-8.3); Neutrophils Percent Auto 83.7 % (45-73); Platelet Count 210 X10*3/uL (160-400); Red Blood Count 2.72 X10*6/uL (4.20-5.50); Red Cell Distribution Width 16.2 % (11.0-16.0); White Blood Count 7.5 X10*3/uL (4.8-10.8)
[2021-04-06 06:10] LABS: Alanine Aminotransferase 50 U/L (0-31); Albumin Level 2.5 g/dL (3.5-5.0); Alkaline Phosphatase 98 U/L (39-117); Anion Gap 17 (12-20); Aspartate Amino Transferase 23 U/L (5-31); Bilirubin Direct 0.3 mg/dL (0.0-0.5); Bilirubin Total 0.5 mg/dL (0.0-1.0); Blood Urea Nitrogen 58 mg/dL (9-16); Calcium 8.2 mg/dL (8.4-10.2); Carbon Dioxide 22 mmol/L (22-29); Chloride 101 mmol/L (96-108); Creatinine Clr Calc Pharmacy 19.3; Estimated Glomerular Filt Rate 12; Glucose Random 123 mg/dL (60-115); Magnesium 1.6 mg/dL (1.6-2.6); Potassium 3.6 mmol/L (3.3-5.1); Sodium 136 mmol/L (135-145); Total Protein 4.5 g/dL (6.5-8.0)
[2021-04-06] MEDS: Albuterol/Iprat 2.5/0.5MG 3 ML AMPUL.NEB INHALE ×4 (07:31→19:51)
[2021-04-06] MEDS: Chlorhexidine Gluc Oral Rinse 15 ML MOUTHWASH BUCCAL ×3 (07:52→21:09)
--- NOTE | 2021-04-06 09:53 | P.PNNP_ITS ---
Subjective Subjective Date of Service: 04/06/21 Interval history: Events noted. Seen AM. All recent data reviewed. D/W ICU Attending Physical Exam Vital Signs: Vital Signs: Last Vital Signs Temp 99.7 F 04/06/21 09:00 Pulse 120 H 04/06/21 09:00 Resp 21 H 04/06/21 09:00 BP 151/64 H 04/06/21 09:00 Pulse Ox 99 04/06/21 09:00 BMI result Body Mass Index 41.8 Const: General: no acute distress Resp: Auscultation: diminished lung sounds Cardio: Rate: regular rate and tachycardic GI: Palpation (GI): Soft to palpation Neuro: Other: Sedated Objective Data Labs CBC & Chem 7: 04/06/21 05:20 04/06/21 05:20 Labs: Laboratory Results - last 24 hr 04/05/21 04/05/21 04/05/21 12:09 17:20 23:24 WBC RBC Hgb Hct MCV MCH MCHC RDW Plt Count MPV Immature Gran % (Auto) Neut % (Auto) Lymph % (Auto) [place] % (Auto) Eos % (Auto) Baso % (Auto) Lymph # (Auto) [place] # (Auto) Eos # (Auto) Baso # (Auto) Abs Immat Gran (auto) Absolute Neuts (auto) Absolute Nucleated RBC Nucleated RBC % (auto) VBG pH VBG pCO2 VBG pO2 VBG HCO3 VBG O2 Saturation VBG Base Excess Sodium Potassium Chloride Carbon Dioxide Anion Gap BUN Creatinine Estim Creat Clear Calc Estimated GFR POC Glucose 111 137 H 128 H Random Glucose Calcium Phosphorus Magnesium Total Bilirubin Direct Bilirubin AST ALT Alkaline Phosphatase Total Protein Albumin 04/06/21 04/06/21 04/06/21 05:14 05:20 05:20 WBC 7.5 RBC 2.72 L Hgb 7.6 L Hct 24.6 L MCV 90.4 MCH 27.9 MCHC 30.9 L RDW 16.2 H Plt Count 210 MPV 9.9 Immature Gran % (Auto) 1.1 H Neut % (Auto) 83.7 H Lymph % (Auto) 5.7 L [place] % (Auto) 9.5 Eos % (Auto) 0.0 Baso % (Auto) 0.0 Lymph # (Auto) 0.4 L [place] # (Auto) 0.7 Eos # (Auto) 0.0 Baso # (Auto) 0.0 Abs Immat Gran (auto) 0.08 H Absolute Neuts (auto) 6.3 Absolute Nucleated RBC 0.000 Nucleated RBC % (auto) 0.0 VBG pH VBG pCO2 VBG pO2 VBG HCO3 VBG O2 Saturation VBG Base Excess Sodium 136 Potassium 3.6 Chloride 101 Carbon Dioxide 22 Anion Gap 17 BUN 58 H Creatinine 3.78 H Estim Creat Clear Calc 19.3 Estimated GFR 12 POC Glucose 114 Random Glucose 123 H Calcium 8.2 L Phosphorus 4.0 Magnesium 1.6 Total Bilirubin 0.5 Direct Bilirubin 0.3 AST 23 ALT 50 H Alkaline Phosphatase 98 Total Protein 4.5 L Albumin 2.5 L 04/06/21 05:26 WBC RBC Hgb Hct MCV MCH MCHC RDW Plt Count MPV Immature Gran % (Auto) Neut % (Auto) Lymph % (Auto) [place] % (Auto) Eos % (Auto) Baso % (Auto) Lymph # (Auto) [place] # (Auto) Eos # (Auto) Baso # (Auto) Abs Immat Gran (auto) Absolute Neuts (auto) Absolute Nucleated RBC Nucleated RBC % (auto) VBG pH 7.48 H VBG pCO2 27 VBG pO2 48 VBG HCO3 20 L VBG O2 Saturation 82.0 VBG Base Excess -1.8 Sodium Potassium Chloride Carbon Dioxide Anion Gap BUN Creatinine Estim Creat Clear Calc Estimated GFR POC Glucose Random Glucose Calcium Phosphorus Magnesium Total Bilirubin Direct Bilirubin AST ALT Alkaline Phosphatase Total Protein Albumin Microbiology Microbiology Results: Microbiology 04/02/21 13:20 Sputum - Suctioned Gram Stain - Final 04/02/21 13:20 Sputum - Suctioned Sputum Culture - Final Methicillin Res Staph Aureus 03/24/21 16:49 Blood - Central Line Blood Culture - Final No growth after 5 days. 03/24/21 16:49 Blood - Central Line Blood Culture - Final No growth after 5 days. 03/24/21 16:50 Urine Catheterized - Witt Catheter Urine Culture - Final No growth. 03/18/21 19:37 Blood - Venous Blood Culture - Final No growth after 5 days. 03/18/21 19:37 Blood - Venous Blood Culture - Final Procedures Date of Service Date of Service: 04/06/21 Assessment & Plan Assessment and plan (1) JOAN (acute kidney injury): Status: Acute Assessment and Plan: JOAN due to acute tubular injury in the setting of SARS COV 2 infection no proteinuria no obstruction known CKD baseline Scr 2-2.5 mg/dl Was dialyzed Wednesday( Next HD Wednesday) Hypervolemic. Shall ultrafiltrate today( ordered)- HD RN aware Shall continue renal support for now Concur with rest of current management Will closely follow up Time Spent With Patient Time: Total time spent is greater than 50% in coordination of care (as documented) at patient's floor/unit and/or counseling patient: Progress Note: Quality Stroke Does the patient have a stroke diagnosis?: No
[2021-04-06 12:19] LABS: Glucose, Whole Blood 121 mg/dL (60-115)
[2021-04-06 12:32] LABS: Venous Blood Gas Refer to POC result
--- NOTE | 2021-04-06 12:32 | MHC.CM.PN ---
Pt continues in ICU on ventilatory support and new HD initiation. No plans to extubate - nephrology following. CM to assist with d/c planning once her needs are better known. has been communicating with pt's family. CM to follow
[2021-04-06 12:34] LABS: Vancomycin Random 17.3 mcg/mL (15-20)
--- NOTE | 2021-04-06 14:50 | PM.CCPN ---
Subjective Subjective Date of Service: 04/06/21 Interval History: 60-year-old morbidly obese female who presented well over 2 weeks ago with COVID-19 pneumonitis hypoxic respiratory failure but severely encephalopathic with acute on chronic for stage IV now stage 5 renal failure and currently with a dialysis requirement in addition she developed clinically probably will acute myocarditis the ejection fraction has since repaired from the 30s to at least 55% without segmental wall motion abnormality and is no primary valve or pericardial disease but the patient has had significant iatrogenic fluid overload and today had a ultrafiltration of 3.5 L and we are pursuing the CVP and continue to do daily trials of pressure control as she is beginning to recoup some cognitive function not following commands but awakening and at least tracking with her eyes we stopped most of the IV drips which was seemingly superfluous and including the esmolol drip and her sedation and then we are able to take her off of the leave and if anything as she continues to recover she is hypertensive for the 1st time now at 167/85 still sinus tachycardia 117 and has had evidence of a staph bacterial nosocomial pneumonia as she has been intubated now for over 2 weeks tomorrow due for regular dialysis hopefully will be able to recover some more 3rd spaced fluid but more particularly lower the CVP and her intrathoracic volume but were getting close to making a decision now about tracheostomy Critical Care Time (minutes): 45 Physical Exam Vital Signs: Vital Signs: Last Vital Signs Temp 98.8 F 04/06/21 14:00 Pulse 118 H 04/06/21 14:00 Resp 32 H 04/06/21 14:00 BP 149/74 H 04/06/21 14:00 Pulse Ox 98 04/06/21 14:00 BMI result Body Mass Index 41.8 arousable to voice moves all 4 extremities bedside echo demonstrating preserved LV ejection fraction lungs almost inaudible but by chest x-ray stable abdomen soft good bowel sounds no organomegaly severe diffuse anasarca Objective Data Labs CBC & Chem 7: 04/06/21 05:20 04/06/21 05:20 Labs: Laboratory Results - last 24 hr 04/05/21 04/05/21 04/06/21 17:20 23:24 05:14 WBC RBC Hgb Hct MCV MCH MCHC RDW Plt Count MPV Immature Gran % (Auto) Neut % (Auto) Lymph % (Auto) [place] % (Auto) Eos % (Auto) Baso % (Auto) Lymph # (Auto) [place] # (Auto) Eos # (Auto) Baso # (Auto) Abs Immat Gran (auto) Absolute Neuts (auto) Absolute Nucleated RBC Nucleated RBC % (auto) VBG pH VBG pCO2 VBG pO2 VBG HCO3 VBG O2 Saturation VBG Base Excess Sodium Potassium Chloride Carbon Dioxide Anion Gap BUN Creatinine Estim Creat Clear Calc Estimated GFR POC Glucose 137 H 128 H 114 Random Glucose Calcium Phosphorus Magnesium Total Bilirubin Direct Bilirubin AST ALT Alkaline Phosphatase Total Protein Albumin Random Vancomycin 04/06/21 04/06/21 04/06/21 05:20 05:20 05:26 WBC 7.5 RBC 2.72 L Hgb 7.6 L Hct 24.6 L MCV 90.4 MCH 27.9 MCHC 30.9 L RDW 16.2 H Plt Count 210 MPV 9.9 Immature Gran % (Auto) 1.1 H Neut % (Auto) 83.7 H Lymph % (Auto) 5.7 L [place] % (Auto) 9.5 Eos % (Auto) 0.0 Baso % (Auto) 0.0 Lymph # (Auto) 0.4 L [place] # (Auto) 0.7 Eos # (Auto) 0.0 Baso # (Auto) 0.0 Abs Immat Gran (auto) 0.08 H Absolute Neuts (auto) 6.3 Absolute Nucleated RBC 0.000 Nucleated RBC % (auto) 0.0 VBG pH 7.48 H VBG pCO2 27 VBG pO2 48 VBG HCO3 20 L VBG O2 Saturation 82.0 VBG Base Excess -1.8 Sodium 136 Potassium 3.6 Chloride 101 Carbon Dioxide 22 Anion Gap 17 BUN 58 H Creatinine 3.78 H Estim Creat Clear Calc 19.3 Estimated GFR 12 POC Glucose Random Glucose 123 H Calcium 8.2 L Phosphorus 4.0 Magnesium 1.6 Total Bilirubin 0.5 Direct Bilirubin 0.3 AST 23 ALT 50 H Alkaline Phosphatase 98 Total Protein 4.5 L Albumin 2.5 L Random Vancomycin 04/06/21 04/06/21 11:57 12:10 WBC RBC Hgb Hct MCV MCH MCHC RDW Plt Count MPV Immature Gran % (Auto) Neut % (Auto) Lymph % (Auto) [place] % (Auto) Eos % (Auto) Baso % (Auto) Lymph # (Auto) [place] # (Auto) Eos # (Auto) Baso # (Auto) Abs Immat Gran (auto) Absolute Neuts (auto) Absolute Nucleated RBC Nucleated RBC % (auto) VBG pH VBG pCO2 VBG pO2 VBG HCO3 VBG O2 Saturation VBG Base Excess Sodium Potassium Chloride Carbon Dioxide Anion Gap BUN Creatinine Estim Creat Clear Calc Estimated GFR POC Glucose 121 H Random Glucose Calcium Phosphorus Magnesium Total Bilirubin Direct Bilirubin AST ALT Alkaline Phosphatase Total Protein Albumin Random Vancomycin 17.3 Microbiology Microbiology Results: Microbiology 04/02/21 13:20 Sputum - Suctioned Gram Stain - Final 04/02/21 13:20 Sputum - Suctioned Sputum Culture - Final Methicillin Res Staph Aureus 03/24/21 16:49 Blood - Central Line Blood Culture - Final No growth after 5 days. 03/24/21 16:49 Blood - Central Line Blood Culture - Final No growth after 5 days. 03/24/21 16:50 Urine Catheterized - Witt Catheter Urine Culture - Final No growth. 03/18/21 19:37 Blood - Venous Blood Culture - Final No growth after 5 days. 03/18/21 19:37 Blood - Venous Blood Culture - Final Progress Note: A&P Assessment and plan (1) Acute blood loss anemia: Status: Acute (2) Uremia: Status: Acute (3) Metabolic encephalopathy: Status: Acute (4) Acute on chronic systolic (congestive) heart failure: Status: Acute (5) Hx of cardiac arrest: Status: Acute (6) Acute respiratory failure with hypoxia: Status: Acute (7) Elevated troponin: Status: Acute (8) Acute respiratory distress: Status: Acute (9) Hypokalemia: Status: Acute (10) JOAN (acute kidney injury): Status: Acute (11) Aspiration into airway: Status: Acute (12) Pneumonia: Status: Acute (13) COVID-19: Status: Acute (14) Respiratory failure: Status: Acute (15) Osteoarthritis of ankles, bilateral: Status: Acute (16) Umbilical hernia: Status: Acute (17) Olecranon bursitis of left elbow: Status: Acute (18) Tubulovillous adenoma of large intestine: Status: Acute (19) CKD (chronic kidney disease) stage 4, GFR 15-29 ml/min: Status: Acute (20) Family history of colon cancer: Status: Acute (21) Multiple fractures of ribs: Status: Acute (22) Anemia in chronic kidney disease: Status: Acute (23) Vitamin D deficiency: Status: Acute (24) Breast cancer screening by mammogram: Status: Resolved (25) Tubular adenoma of colon: Status: Acute (26) Dyslipidemia: Status: Acute (27) Restrictive lung disease: Status: Acute (28) Lung cancer: Status: Acute (29) LEO (obstructive sleep apnea): Status: Acute (30) COPD (chronic obstructive pulmonary disease): Status: Acute Plan plan at this point might be to have 2 Restoril gin overnight on some form of sedation quite possibly dexmedetomidine and re-attempt especially after dialysis tomorrow and other pressure weaning trial or potentially approach healthcare proxy about tracheostomy consideration for PermCath probably should be made and and we should be giving dose of vancomycin today after the trough level following the filtration treatment that she just had Quality Stroke Does the patient have a stroke diagnosis?: No VTE Prior VTE?: No VTE Risk Level:: Medical - moderate - high VTE Device Contraindication: Treatment Not Indicated VTE Drug Contraindication: N/A - Med Ordered
[2021-04-06 15:45] LABS: Vancomycin Trough 17.7 mcg/mL (10.0-20.0)
[2021-04-06 17:55] LABS: Glucose, Whole Blood 114 mg/dL (60-115)
[2021-04-06] MEDS: dexmedeTOMIDidine HCL/NS 400 MCG/100 ML INFUS..BTL 26.95 MCG IVCONT (18:19)
--- NOTE | 2021-04-06 18:23 | PC.NURSE ---
ULTRAFILTRATION DIALYSIS TODAY. REMOVED 3,500 ML. PRE DIALYSIS CVP - 11 POST DIALYSIS CVP - 8 ALL GTTS OFF (SEE EMAR) AT 0748 PER MD. WHILE OFF SEDATION PATIENT WOULD OPEN HER EYES, VERY MINIMAL TRACKING NOTED. DID NOT FOLLOW ANY COMMANDS. MD AWARE. CHANGED TO PS 20/8 AT 30% AT AROUND 1600. BACK TO ACVC+ AT 1828. STARTED ON PRECEDEX PER PROTOCOL (SEE EMAR) PER MD AT 1820.
[2021-04-06] MEDS: fentaNYL citrate/PF 100 MCG/2 ML VIAL 50 MCG IVPUSH (19:58)
[2021-04-06] MEDS: dexmedeTOMIDidine HCL/NS 400 MCG/100 ML INFUS..BTL 40.43 MCG IVCONT ×2 (21:08→23:16)
[2021-04-06] MEDS: Metoprolol Tartrate 12.5 MG HALFTAB PO (21:09)
--- NOTE | 2021-04-06 21:53 | PC.NURSE ---
Skin assessment at 1999- undocumented ?unstageable pressure injuries to B/L heels noted, pictures taken, will update wound RN in AM.
[2021-04-06 23:19] LABS: Glucose, Whole Blood 97 mg/dL (60-115)
[2021-04-07] VITALS (37 sets, daily range): BP systolic 87–159; BP diastolic 38–93; PULSE 26–132; RESP 13–40; TEMP 34–37.7; O2SAT 91–100; BMI 41.2
[2021-04-07] MEDS: dexmedeTOMIDidine HCL/NS 400 MCG/100 ML INFUS..BTL 40.43 MCG IVCONT (01:54)
[2021-04-07] MEDS: Sucralfate Oral Suspension 1 GM/10 ML ORAL.SUSP PO ×4 (01:54→19:46)
[2021-04-07] MEDS: dexmedeTOMIDidine HCL/NS 400 MCG/100 ML INFUS..BTL 26.95 MCG IVCONT (04:23)
--- NOTE | 2021-04-07 04:35 | PC.NURSE ---
Addendum entered by Reba Song RN 04/07/21 06:34: At approx 0600- pt not receiving adequate tidal volumes, RT notified- bagged/lavaged for moderate amount of manzo sputum. Pt also in respiratory distress- nasal flaring, RR 30s, guppy breathing, desaturating. PA notified- precedex changed to propofol and levophed ordered and titrated to maintain MAP > 65. Original Note: Skin assessment on 04/06 at 2000- undocumented pressure injuries to B/L heels noted, pictures taken, will update wound RN this AM.
[2021-04-07 05:22] LABS: VBG Base Excess -2.8 mmol/L; VBG HCO3 19 mmol/L (22-26); VBG pCO2 24 mmHg; VBG pH 7.49 (7.32-7.43); VBG pO2 35 mmHg
[2021-04-07 05:23] LABS: Venous Blood Gas Refer to POC result
[2021-04-07 05:26] LABS: MANUAL DIFF FLAG NO
[2021-04-07 05:29] LABS: Basophils Percent Auto 0.1 % (0-2); Hematocrit 24.2 % (37.0-47.0); Hemoglobin 7.4 g/dl (12.0-16.0); Imm Gran Abs Auto 0.12 X10*3/uL (0.00-0.03); Imm Gran Pct Auto 1.7 % (0.0-0.4); Lymphocytes Absolute Auto 0.5 X10*3/uL (1.2-4.9); Lymphocytes Percent Auto 7.2 % (20-40); Mean Corpuscular HGB Conc 30.6 g/dl (31.0-35.0); Mean Corpuscular Hemoglobin 27.4 pg (27.0-33.0); Mean Corpuscular Volume 89.6 fL (80.0-98.0); Mean Platelet Volume 9.8 fL (9.4-12.3); Monocytes Absolute Auto 0.5 X10*3/uL (0.1-1.2); Monocytes Percent Auto 7.6 % (2-11); Neutrophils Absolute Auto 5.8 x10*3/uL (2.0-8.3); Neutrophils Percent Auto 83.4 % (45-73); Platelet Count 198 X10*3/uL (160-400); Red Cell Distribution Width 15.8 % (11.0-16.0)
[2021-04-07] MEDS: LORazepam 2 MG/ML VIAL 1 MG IVPUSH (05:51)
[2021-04-07 05:54] LABS: Alanine Aminotransferase 45 U/L (0-31); Albumin Level 2.5 g/dL (3.5-5.0); Alkaline Phosphatase 93 U/L (39-117); Anion Gap 18 (12-20); Aspartate Amino Transferase 22 U/L (5-31); Bilirubin Direct 0.3 mg/dL (0.0-0.5); Bilirubin Total 0.4 mg/dL (0.0-1.0); Blood Urea Nitrogen 70 mg/dL (9-16); Calcium 8.3 mg/dL (8.4-10.2); Carbon Dioxide 21 mmol/L (22-29); Chloride 99 mmol/L (96-108); Creatinine Clr Calc Pharmacy 17.4; Estimated Glomerular Filt Rate 11; Glucose Random 124 mg/dL (60-115); Magnesium 1.6 mg/dL (1.6-2.6); Phosphorus 4.4 mg/dL (2.7-4.5); Potassium 3.1 mmol/L (3.3-5.1); Sodium 135 mmol/L (135-145); Total Protein 4.5 g/dL (6.5-8.0)
[2021-04-07] MEDS: propofoL 1,000 MG/100 ML VIAL 12.8 MG IVCONT ×3 (06:07→19:45)
[2021-04-07] MEDS: Albuterol/Iprat 2.5/0.5MG 3 ML AMPUL.NEB INHALE ×4 (07:38→19:02)
[2021-04-07] MEDS: Metoprolol Tartrate 12.5 MG HALFTAB PO ×2 (08:19→19:47)
[2021-04-07] MEDS: Chlorhexidine Gluc Oral Rinse 15 ML MOUTHWASH BUCCAL ×3 (08:19→19:47)
[2021-04-07] MEDS: Heparin Sodium,Porcine 5,000 UNIT/ML VIAL 5000 UNIT INTRACATH (08:19)
--- NOTE | 2021-04-07 09:54 | W.PM.DNNEP ---
Subjective Subjective This patient was seen during dialysis. Interval history: Events noted Physical Exam Vital Signs: Vital Signs: Last Vital Signs Temp 99.3 F 04/07/21 09:00 Pulse 115 H 04/07/21 09:00 Resp 35 H 04/07/21 09:00 BP 122/62 04/07/21 09:00 Pulse Ox 99 04/07/21 09:00 BMI result Body Mass Index 41.2 Const: Other: intubated Awake Lungs with Rhonchi Hrt : No gallop or rub Abd Obese Soft NS no asterexis Assessment & Plan Assessment and plan (1) JOAN (acute kidney injury): Status: Acute Plan JOAN superimposed on CKD /Uremia No obstruction by sonogram No proteinuria/Hematuria- AGN/AIN seem unlikely Probably has ATN- multifatorail s/p Shock COVID -19 Resp failure Plan HD 3 x week Need to plan for permcath Time Spent With Patient Time: Total time spent is greater than 50% in coordination of care (as documented) at patient's floor/unit and/or counseling patient: Time with patient: 15 - 24 minutes Procedures Date of Service Date of Service: 04/07/21
--- NOTE | 2021-04-07 10:37 | MHC.CLN ---
F/U PT RECEIVING NEPRO AT MAX GOAL RATE 35ML/HR WITH 30ML PROSOURCE BID AND 240CC FREE WATER FLUSHES Q 6HRS PROVIDES 1632KCALS, 98G PROTEIN (1.5G/KG BASED ON CMW), 1570ML TOTAL WATER FROM FORMULA AND FLUSHES (24ML/KG) NSG REPORTS FREQUENT LIQUID ORANGE BM RECOMMEND CHANGE IN FORMULA TO PROMOTE AT MAX GOAL RATE 60ML/HR TO PROVIDE 1440KCALS (1778KCALS WITH SEDATION; 27KCALS/KG BASED ON CMW), 90G PROTEIN (1.4G/KG), 1688ML TOTAL FREE WATER FROM FORMULA AND FLUSHES (26ML/KG) TF WILL PROMOTE WOUND HEALING AND FIBER FREE FORMULA MONITOR TOLERANCE, RESIDUALS AND LYTES (K+ AND PHOS)
[2021-04-07 12:20] LABS: Glucose, Whole Blood 123 mg/dL (60-115)
[2021-04-07] MEDS: Potassium Chloride/H20 40 MEQ/100 ML PIGGYBACK 100 MEQ IV (13:05)
[2021-04-07] MEDS: Magnesium Sulfate/H2O 2 GM/50 ML PIGGYBACK IV (13:05)
[2021-04-07] MEDS: Albumin Human 25 % 100 ML IV ×2 (13:06→19:42)
--- NOTE | 2021-04-07 13:46 | P.PNCC_ITS ---
Subjective Subjective Date of Service: 04/07/21 Interval History: 60-year-old lady with underlying history of COPD on 2 L of supplemental oxygen, lung cancer on palliative XRT, polysubstance abuse now on methadone, seizure disorder, CKD, CHF admitted on 03/18/2021 with worsening alteration of mental status. On ER evaluation patient was noted to be COVID-19 positive, tachycardic and tachypneic, profoundly confused, then acutely developed hypoxia refractory to noninvasive supplemental oxygen support requiring intubation and ventilatory support. Patient was empirically covered with broad-spectrum antibiotic and transferred to intensive care unit. her troponin noted to be up trending she was started heparin drip. 2D echocardiogram demonstrated biventricular reduced systolic function. She was extubated on 03/21/2021, but required re-intubation for an aspiration. Further hospital course significant progressive renal dysfunction requiring initiation dialysis support and slow overall improvement in LVEF. No events overnight. Critical Care Time (minutes): 45 Physical Exam Vital Signs: Vital Signs: Last Vital Signs Temp 99.3 F 04/07/21 13:00 Pulse 132 H 04/07/21 13:00 Resp 40 H 04/07/21 13:00 BP 134/73 04/07/21 13:00 Pulse Ox 97 04/07/21 13:00 BMI result Body Mass Index 41.2 Const: General: no acute distress and other ( Sedated on the vent, poor arousal with sedation vacation, mild anasarca) Eyes: Sclerae: sclerae normal EOM: EOMs intact bilaterally Neck: Neck: Yes no lymphadenopathy, Yes trachea midline and Yes supple Resp: Auscultation: clear to auscultation bilaterally Cardio: Rate: tachycardic Rhythm: regular rhythm Heart sounds: no gallops, no murmurs and no rubs GI: Palpation (GI): Soft to palpation and Other GI palpation findings present ( Nontender) Auscultation: normal bowel sounds Extrem: General: No clubbing, No cyanosis and Yes pedal edema (1+ bilateral) Objective Data Labs CBC & Chem 7: 04/07/21 05:15 04/07/21 05:15 Labs: Laboratory Results - last 24 hr 04/06/21 04/06/21 04/06/21 15:16 17:51 23:15 WBC RBC Hgb Hct MCV MCH MCHC RDW Plt Count MPV Immature Gran % (Auto) Neut % (Auto) Lymph % (Auto) [place] % (Auto) Eos % (Auto) Baso % (Auto) Lymph # (Auto) [place] # (Auto) Eos # (Auto) Baso # (Auto) Abs Immat Gran (auto) Absolute Neuts (auto) Absolute Nucleated RBC Nucleated RBC % (auto) VBG pH VBG pCO2 VBG pO2 VBG HCO3 VBG O2 Saturation VBG Base Excess Sodium Potassium Chloride Carbon Dioxide Anion Gap BUN Creatinine Estim Creat Clear Calc Estimated GFR POC Glucose 114 97 Random Glucose Calcium Phosphorus Magnesium Total Bilirubin Direct Bilirubin AST ALT Alkaline Phosphatase Total Protein Albumin Vancomycin Trough 17.7 04/07/21 04/07/21 04/07/21 05:14 05:15 05:15 WBC 7.0 RBC 2.70 L Hgb 7.4 L Hct 24.2 L MCV 89.6 MCH 27.4 MCHC 30.6 L RDW 15.8 Plt Count 198 MPV 9.8 Immature Gran % (Auto) 1.7 H Neut % (Auto) 83.4 H Lymph % (Auto) 7.2 L [place] % (Auto) 7.6 Eos % (Auto) 0.0 Baso % (Auto) 0.1 Lymph # (Auto) 0.5 L [place] # (Auto) 0.5 Eos # (Auto) 0.0 Baso # (Auto) 0.0 Abs Immat Gran (auto) 0.12 H Absolute Neuts (auto) 5.8 Absolute Nucleated RBC 0.000 Nucleated RBC % (auto) 0.0 VBG pH 7.49 H VBG pCO2 24 VBG pO2 35 VBG HCO3 19 L VBG O2 Saturation 59.0 VBG Base Excess -2.8 Sodium 135 Potassium 3.1 L Chloride 99 Carbon Dioxide 21 L Anion Gap 18 BUN 70 H Creatinine 4.27 H* Estim Creat Clear Calc 17.4 Estimated GFR 11 POC Glucose Random Glucose 124 H Calcium 8.3 L Phosphorus 4.4 Magnesium 1.6 Total Bilirubin 0.4 Direct Bilirubin 0.3 AST 22 ALT 45 H Alkaline Phosphatase 93 Total Protein 4.5 L Albumin 2.5 L Vancomycin Trough 04/07/21 04/07/21 05:15 12:17 WBC RBC Hgb Hct MCV MCH MCHC RDW Plt Count MPV Immature Gran % (Auto) Neut % (Auto) Lymph % (Auto) [place] % (Auto) Eos % (Auto) Baso % (Auto) Lymph # (Auto) [place] # (Auto) Eos # (Auto) Baso # (Auto) Abs Immat Gran (auto) Absolute Neuts (auto) Absolute Nucleated RBC Nucleated RBC % (auto) VBG pH VBG pCO2 VBG pO2 VBG HCO3 VBG O2 Saturation VBG Base Excess Sodium Potassium Chloride Carbon Dioxide Anion Gap BUN Creatinine Estim Creat Clear Calc Estimated GFR POC Glucose 123 H Random Glucose Calcium Phosphorus Magnesium Total Bilirubin Direct Bilirubin AST ALT Alkaline Phosphatase Total Protein Albumin Cancelled Vancomycin Trough Microbiology Microbiology Results: Microbiology 04/02/21 13:20 Sputum - Suctioned Gram Stain - Final 04/02/21 13:20 Sputum - Suctioned Sputum Culture - Final Methicillin Res Staph Aureus 03/24/21 16:49 Blood - Central Line Blood Culture - Final No growth after 5 days. 03/24/21 16:49 Blood - Central Line Blood Culture - Final No growth after 5 days. 03/24/21 16:50 Urine Catheterized - Witt Catheter Urine Culture - Final No growth. 03/18/21 19:37 Blood - Venous Blood Culture - Final No growth after 5 days. 03/18/21 19:37 Blood - Venous Blood Culture - Final Progress Note: A&P Assessment and plan (1) Metabolic encephalopathy: Status: Acute (2) Uremia: Status: Acute (3) Acute on chronic systolic (congestive) heart failure: Status: Acute (4) Acute respiratory failure with hypoxia: Status: Acute (5) JOAN (acute kidney injury): Status: Acute (6) LEO (obstructive sleep apnea): Status: Acute (7) COPD (chronic obstructive pulmonary disease): Status: Acute (8) Lung cancer: Status: Acute Plan Assessment: 60-year-old lady with underlying morbid obesity, LEO, obesity hyperventilation COPD 2 L dependent, remote history of cardiac arrest, CKD stage IV admitted with alteration of mental status, uremia COVID-19, acute hypoxic respiratory failure now requiring ventilatory and hemodialysis support. Plan: Neuro: Acute metabolic encephalopathy likely secondary, poor improvement with hemodialysis. Cardiac: NSTEMI versus demand ischemia. Initial 2D echocardiogram with biventricular systolic congestive heart failure, now with slow improvement. Pulmonary: Acute hypoxic respiratory failure on the background of COVID-19 initially requiring ventilatory support. Extubated 03/21/2021, later requiring re-intubation for an aspiration event. continue to titrate of ventilatory support as tolerated. At this time patient is on ventilator settings from which showed extubation can be attempted, however extubation is limited by her poor mental status. Renal: Acute renal failure on the background of chronic kidney disease, may be related to COVID-19. Now requiring hemodialysis support.. Nephrology service care appreciated. Endo: No acute issues. GI: No acute issues. ID: [id number] , resolved. Heme/Onc: No acute issues. Psych: No acute issues. Miscellaneous: No acute issues. Prophylaxis: pneumatic compression, ppi Diet: tube feeds Critical care time spent: 45 minutes Quality Stroke Does the patient have a stroke diagnosis?: No VTE Prior VTE?: No VTE Risk Level:: Medical - moderate - high VTE Device Contraindication: Treatment Not Indicated VTE Drug Contraindication: N/A - Med Ordered
[2021-04-07 16:31] LABS: Vancomycin Random 11.7 mcg/mL (15-20)
--- NOTE | 2021-04-07 16:59 | HE.PHANOTE ---
Vancomycin Dosing Addendum Vancomycin Level 11.7 post dialysis. Giving additional 500 mg dose post dialysis. [facility] order on hold.
[2021-04-07 17:32] LABS: Glucose, Whole Blood 107 mg/dL (60-115)
[2021-04-07] MEDS: vancomycin HCL 500 MG in 0.9 % Sodium Chloride 100 ML 110 MG IV (17:37)
[2021-04-07 23:23] LABS: Glucose, Whole Blood 81 mg/dL (60-115)
[2021-04-07] MEDS: Dextrose 50 % 25 GM/50 ML SYRINGE IVPUSH (23:44)
[2021-04-08] VITALS (36 sets, daily range): BP systolic 99–156; BP diastolic 55–95; PULSE 63–129; RESP 15–42; TEMP 34–37.6; O2SAT 90–100; BMI 39.5
[2021-04-08] MEDS: Sucralfate Oral Suspension 1 GM/10 ML ORAL.SUSP PO ×2 (01:22→07:58)
[2021-04-08] MEDS: Albumin Human 25 % 100 ML IV ×2 (01:22→07:57)
[2021-04-08 01:26] LABS: Glucose, Whole Blood 94 mg/dL (60-115)
[2021-04-08] MEDS: propofoL 1,000 MG/100 ML VIAL 19.21 MG IVCONT (02:44)
[2021-04-08 04:07] LABS: Glucose, Whole Blood 73 mg/dL (60-115)
[2021-04-08] MEDS: Dextrose 50 % 25 GM/50 ML SYRINGE IVPUSH (04:07)
[2021-04-08 05:42] LABS: VBG Base Excess 4.8 mmol/L; VBG HCO3 27 mmol/L (22-26); VBG pCO2 33 mmHg; VBG pH 7.52 (7.32-7.43); VBG pO2 39 mmHg
[2021-04-08 06:07] LABS: Alanine Aminotransferase 36 U/L (0-31); Albumin Level 3.2 g/dL (3.5-5.0); Alkaline Phosphatase 86 U/L (39-117); Anion Gap 17 (12-20); Aspartate Amino Transferase 23 U/L (5-31); Bilirubin Total 0.5 mg/dL (0.0-1.0); Blood Urea Nitrogen 36 mg/dL (9-16); Calcium 8.9 mg/dL (8.4-10.2); Carbon Dioxide 24 mmol/L (22-29); Chloride 100 mmol/L (96-108); Creatinine Clr Calc Pharmacy 25.1; Estimated Glomerular Filt Rate 17; Glucose Random 111 mg/dL (60-115); Imm Gran Abs Auto 0.11 X10*3/uL (0.00-0.03); Imm Gran Pct Auto 1.7 % (0.0-0.4); LEFT SHIFT? 1; Lymphocytes Absolute Auto 0.5 X10*3/uL (1.2-4.9); Lymphocytes Percent Auto 7.8 % (20-40); Mean Corpuscular HGB Conc 31.1 g/dl (31.0-35.0); Mean Corpuscular Hemoglobin 27.4 pg (27.0-33.0); Mean Platelet Volume 10.3 fL (9.4-12.3); Monocytes Absolute Auto 0.5 X10*3/uL (0.1-1.2); Neutrophils Absolute Auto 5.5 x10*3/uL (2.0-8.3); Neutrophils Percent Auto 83.5 % (45-73); Phosphorus 2.7 mg/dL (2.7-4.5); Platelet Count 178 X10*3/uL (160-400); Red Blood Count 2.34 X10*6/uL (4.20-5.50); Red Cell Distribution Width 15.8 % (11.0-16.0); Sodium 138 mmol/L (135-145); Total Protein 4.8 g/dL (6.5-8.0); White Blood Count 6.6 X10*3/uL (4.8-10.8)
[2021-04-08 06:09] LABS: Glucose, Whole Blood 104 mg/dL (60-115)
[2021-04-08 06:13] LABS: Venous Blood Gas Refer to POC result
[2021-04-08] MEDS: propofoL 1,000 MG/100 ML VIAL 12.8 MG IVCONT (06:22)
[2021-04-08 06:35] LABS: Hematocrit 20.6 % (37.0-47.0); Hemoglobin 6.4 g/dl (12.0-16.0)
[2021-04-08 06:36] LABS: MANUAL DIFF FLAG SCAN
[2021-04-08 06:52] LABS: SLIDE REVIEW VERIFIED
[2021-04-08] MEDS: Potassium Phosphate/NS 15 MMOL/250 ML PLAST..BAG 62.5 MMOL IV (06:53)
[2021-04-08] MEDS: Potassium Chloride/H20 40 MEQ/100 ML PIGGYBACK 50 MEQ IV (06:57)
[2021-04-08] MEDS: Chlorhexidine Gluc Oral Rinse 15 ML MOUTHWASH BUCCAL (07:58)
[2021-04-08] MEDS: Metoprolol Tartrate 12.5 MG HALFTAB PO (08:05)
[2021-04-08] MEDS: Albuterol/Iprat 2.5/0.5MG 3 ML AMPUL.NEB INHALE ×4 (08:12→20:43)
[2021-04-08] MEDS: Potassium Chloride/H20 40 MEQ/100 ML PIGGYBACK 100 MEQ IV (08:43)
--- NOTE | 2021-04-08 09:55 | PC.NURSE ---
Addendum entered by Gisele Sanchez RN 04/18/21 14:37: Patient has DTI to posterior ankle cause from sequential boots documented Apr.06. Heels are being floated- moisturizer lotion applied. Original Note: Skin/wound assessment completed today. Patient has a stage 3 to sacrum, stage 2 to coccyx, stage 2 to labia and stage 2 to bilateral inner thighs. Silver alginate applied to sacrum and coccyx wound covered with foam dressing. Triad applied to labia and inner thighs. Patient is having liquid stooling constantly which makes it difficult to keep wounds clean. Patient is changed often and turned and repositioned.
--- NOTE | 2021-04-08 10:02 | MHC.CLN ---
F/U TF WAS HELD 04/07 R/T FREQUENT LIQUID ORANGE BM NSG REPORTS BM HAVE RESOLVED AT THIS TIME TF PROMOTE CURRENTLY RUNNING AT 20ML/HR WITH NO RESIDUALS PER NSG DISCUSSED AT ROUNDS; POSSIBLE EXTUBATION TODAY IF TF TO CONTINUE; RECOMMEND PROMOTE AT MAX GOAL RATE 60ML/HR TO PROVIDE 1440KCALS (1778KCALS WITH SEDATION; 27KCALS/KG BASED ON CMW), 90G PROTEIN (1.4G/KG), 1688ML TOTAL FREE WATER FROM FORMULA AND FLUSHES (26ML/KG) TF WILL PROMOTE WOUND HEALING AND FIBER FREE FORMULA MONITOR TOLERANCE, RESIDUALS AND LYTES (K+ AND PHOS)
--- NOTE | 2021-04-08 10:29 | PC.RT ---
Pt was placed on PSV by at approimately [id number]. I was called to extubate about 20 min after. Upon arrival pt breathing with resp rate in 30's. Pt extubated per MD order and placed on RA. RR 30's spo2 94% HR 116.
--- NOTE | 2021-04-08 10:50 | P.PNNP_ITS ---
Subjective Subjective Date of Service: 04/08/21 Interval history: Events noted Extubated Still dyspneic Physical Exam Vital Signs: Vital Signs: Last Vital Signs Temp 98.3 F 04/08/21 09:59 Pulse 116 H 04/08/21 10:00 Resp 33 H 04/08/21 10:00 BP 107/74 04/08/21 10:00 Pulse Ox 92 04/08/21 10:00 BMI result Body Mass Index 39.5 Const: Other: Awake Lungs with Rhonchi Hrt : No gallop or rub Abd Obese Soft NS no asterexis Objective Data Labs CBC & Chem 7: 04/08/21 05:30 04/08/21 05:30 Labs: Laboratory Results - last 24 hr 04/01/21 04/07/21 04/07/21 06:44 12:17 16:01 WBC RBC Hgb Hct MCV MCH MCHC RDW Plt Count MPV Immature Gran % (Auto) Neut % (Auto) Lymph % (Auto) [place] % (Auto) Eos % (Auto) Baso % (Auto) Lymph # (Auto) [place] # (Auto) Eos # (Auto) Baso # (Auto) Abs Immat Gran (auto) Absolute Neuts (auto) Absolute Nucleated RBC Nucleated RBC % (auto) Smear Tech's Comments VBG pH VBG pCO2 VBG pO2 VBG HCO3 VBG O2 Saturation VBG Base Excess Sodium Potassium Chloride Carbon Dioxide Anion Gap BUN Creatinine Estim Creat Clear Calc Estimated GFR POC Glucose 123 H Random Glucose Calcium Phosphorus Magnesium Total Bilirubin AST ALT Alkaline Phosphatase Total Protein Albumin Random Vancomycin 11.7 L Blood Type Antibody Screen Crossmatch See Detail Crossmatch ([facility]) See Detail 04/07/21 04/07/21 04/08/21 17:28 23:18 01:22 WBC RBC Hgb Hct MCV MCH MCHC RDW Plt Count MPV Immature Gran % (Auto) Neut % (Auto) Lymph % (Auto) [place] % (Auto) Eos % (Auto) Baso % (Auto) Lymph # (Auto) [place] # (Auto) Eos # (Auto) Baso # (Auto) Abs Immat Gran (auto) Absolute Neuts (auto) Absolute Nucleated RBC Nucleated RBC % (auto) Smear Tech's Comments VBG pH VBG pCO2 VBG pO2 VBG HCO3 VBG O2 Saturation VBG Base Excess Sodium Potassium Chloride Carbon Dioxide Anion Gap BUN Creatinine Estim Creat Clear Calc Estimated GFR POC Glucose 107 81 94 Random Glucose Calcium Phosphorus Magnesium Total Bilirubin AST ALT Alkaline Phosphatase Total Protein Albumin Random Vancomycin Blood Type Antibody Screen Crossmatch Crossmatch ([facility]) 04/08/21 04/08/21 04/08/21 04:04 05:30 05:30 WBC 6.6 RBC 2.34 L Hgb 6.4 L* Hct 20.6 L* MCV 88.0 MCH 27.4 MCHC 31.1 RDW 15.8 Plt Count 178 MPV 10.3 Immature Gran % (Auto) 1.7 H Neut % (Auto) 83.5 H Lymph % (Auto) 7.8 L [place] % (Auto) 7.0 Eos % (Auto) 0.0 Baso % (Auto) 0.0 Lymph # (Auto) 0.5 L [place] # (Auto) 0.5 Eos # (Auto) 0.0 Baso # (Auto) 0.0 Abs Immat Gran (auto) 0.11 H Absolute Neuts (auto) 5.5 Absolute Nucleated RBC 0.000 Nucleated RBC % (auto) 0.0 Smear Tech's Comments VERIFIED VBG pH VBG pCO2 VBG pO2 VBG HCO3 VBG O2 Saturation VBG Base Excess Sodium 138 Potassium 3.0 L Chloride 100 Carbon Dioxide 24 Anion Gap 17 BUN 36 H Creatinine 2.88 H Estim Creat Clear Calc 25.1 Estimated GFR 17 POC Glucose 73 Random Glucose 111 Calcium 8.9 D Phosphorus 2.7 Magnesium 2.0 Total Bilirubin 0.5 AST 23 ALT 36 H Alkaline Phosphatase 86 Total Protein 4.8 L Albumin 3.2 L D Random Vancomycin Blood Type Antibody Screen Crossmatch Crossmatch ([facility]) 04/08/21 04/08/21 04/08/21 05:35 06:05 07:31 WBC RBC Hgb Hct MCV MCH MCHC RDW Plt Count MPV Immature Gran % (Auto) Neut % (Auto) Lymph % (Auto) [place] % (Auto) Eos % (Auto) Baso % (Auto) Lymph # (Auto) [place] # (Auto) Eos # (Auto) Baso # (Auto) Abs Immat Gran (auto) Absolute Neuts (auto) Absolute Nucleated RBC Nucleated RBC % (auto) Smear Tech's Comments VBG pH 7.52 H VBG pCO2 33 VBG pO2 39 VBG HCO3 27 H VBG O2 Saturation 64.0 VBG Base Excess 4.8 Sodium Potassium Chloride Carbon Dioxide Anion Gap BUN Creatinine Estim Creat Clear Calc Estimated GFR POC Glucose 104 Random Glucose Calcium Phosphorus Magnesium Total Bilirubin AST ALT Alkaline Phosphatase Total Protein Albumin Random Vancomycin Blood Type O Negative Antibody Screen NEGATIVE Crossmatch Crossmatch ([facility]) See Detail Microbiology Microbiology Results: Microbiology 04/02/21 13:20 Sputum - Suctioned Gram Stain - Final 04/02/21 13:20 Sputum - Suctioned Sputum Culture - Final Methicillin Res Staph Aureus 03/24/21 16:49 Blood - Central Line Blood Culture - Final No growth after 5 days. 03/24/21 16:49 Blood - Central Line Blood Culture - Final No growth after 5 days. 03/24/21 16:50 Urine Catheterized - Witt Catheter Urine Culture - Final No growth. 03/18/21 19:37 Blood - Venous Blood Culture - Final No growth after 5 days. 03/18/21 19:37 Blood - Venous Blood Culture - Final Procedures Date of Service Date of Service: 04/08/21 Assessment & Plan Assessment and plan (1) JOAN (acute kidney injury): Status: Acute Plan JOAN superimposed on CKD /Uremia No obstruction by sonogram No proteinuria/Hematuria- AGN/AIN seem unlikely Probably has ATN- multifatorail s/p Shock COVID -19 Resp failure Plan HD 3 x week Extra UF today Need to plan for permcath Time Spent With Patient Time: Total time spent is greater than 50% in coordination of care (as documented) at patient's floor/unit and/or counseling patient: Time with patient: 15 - 24 minutes Progress Note: Quality Stroke Does the patient have a stroke diagnosis?: No
[2021-04-08 11:38] LABS: Glucose, Whole Blood 98 mg/dL (60-115)
--- NOTE | 2021-04-08 12:44 | P.PNCC_ITS ---
Subjective Subjective Date of Service: 04/08/21 Interval History: 60-year-old lady with underlying history of COPD on 2 L of supplemental oxygen, lung cancer on palliative XRT, polysubstance abuse now on methadone, seizure disorder, CKD, CHF admitted on 03/18/2021 with worsening alteration of mental status. On ER evaluation patient was noted to be COVID-19 positive, tachycardic and tachypneic, profoundly confused, then acutely developed hypoxia refractory to noninvasive supplemental oxygen support requiring intubation and ventilatory support. Patient was empirically covered with broad-spectrum antibiotic and transferred to intensive care unit. her troponin noted to be up trending she was started heparin drip. 2D echocardiogram demonstrated biventricular reduced systolic function. She was extubated on 03/21/2021, but required re-intubation for an aspiration. Further hospital course significant progressive renal dysfunction requiring initiation dialysis support and slow overall improvement in LVEF. No events overnight. This a.m. with following commands during sedation v acation, extubated uneventfully. Critical Care Time (minutes): 45 Physical Exam Vital Signs: Vital Signs: Last Vital Signs Temp 98.4 F 04/08/21 12:00 Pulse 120 H 04/08/21 12:07 Resp 26 H 04/08/21 12:23 BP 135/89 04/08/21 12:00 Pulse Ox 97 04/08/21 12:00 BMI result Body Mass Index 39.5 Const: General: no acute distress, alert and other (Anasarca) Eyes: Sclerae: sclerae normal EOM: EOMs intact bilaterally Neck: Neck: Yes no lymphadenopathy, Yes trachea midline and Yes supple Resp: Auscultation: crackles (Diffuse bilateral) Cardio: Rate: tachycardic Rhythm: regular rhythm Heart sounds: no gallops, no murmurs and no rubs GI: Palpation (GI): Soft to palpation and Other GI palpation findings present ( Nontender) Auscultation: normal bowel sounds Extrem: General: No clubbing, No cyanosis and Yes pedal edema (1+ bilateral) Objective Data Labs CBC & Chem 7: 04/08/21 05:30 04/08/21 05:30 Labs: Laboratory Results - last 24 hr 04/01/21 04/07/21 04/07/21 06:44 16:01 17:28 WBC RBC Hgb Hct MCV MCH MCHC RDW Plt Count MPV Immature Gran % (Auto) Neut % (Auto) Lymph % (Auto) [place] % (Auto) Eos % (Auto) Baso % (Auto) Lymph # (Auto) [place] # (Auto) Eos # (Auto) Baso # (Auto) Abs Immat Gran (auto) Absolute Neuts (auto) Absolute Nucleated RBC Nucleated RBC % (auto) Smear Tech's Comments VBG pH VBG pCO2 VBG pO2 VBG HCO3 VBG O2 Saturation VBG Base Excess Sodium Potassium Chloride Carbon Dioxide Anion Gap BUN Creatinine Estim Creat Clear Calc Estimated GFR POC Glucose 107 Random Glucose Calcium Phosphorus Magnesium Total Bilirubin AST ALT Alkaline Phosphatase Total Protein Albumin Random Vancomycin 11.7 L Blood Type Antibody Screen Crossmatch See Detail Crossmatch ([facility]) See Detail 04/07/21 04/08/21 04/08/21 23:18 01:22 04:04 WBC RBC Hgb Hct MCV MCH MCHC RDW Plt Count MPV Immature Gran % (Auto) Neut % (Auto) Lymph % (Auto) [place] % (Auto) Eos % (Auto) Baso % (Auto) Lymph # (Auto) [place] # (Auto) Eos # (Auto) Baso # (Auto) Abs Immat Gran (auto) Absolute Neuts (auto) Absolute Nucleated RBC Nucleated RBC % (auto) Smear Tech's Comments VBG pH VBG pCO2 VBG pO2 VBG HCO3 VBG O2 Saturation VBG Base Excess Sodium Potassium Chloride Carbon Dioxide Anion Gap BUN Creatinine Estim Creat Clear Calc Estimated GFR POC Glucose 81 94 73 Random Glucose Calcium Phosphorus Magnesium Total Bilirubin AST ALT Alkaline Phosphatase Total Protein Albumin Random Vancomycin Blood Type Antibody Screen Crossmatch Crossmatch ([facility]) 04/08/21 04/08/21 04/08/21 05:30 05:30 05:35 WBC 6.6 RBC 2.34 L Hgb 6.4 L* Hct 20.6 L* MCV 88.0 MCH 27.4 MCHC 31.1 RDW 15.8 Plt Count 178 MPV 10.3 Immature Gran % (Auto) 1.7 H Neut % (Auto) 83.5 H Lymph % (Auto) 7.8 L [place] % (Auto) 7.0 Eos % (Auto) 0.0 Baso % (Auto) 0.0 Lymph # (Auto) 0.5 L [place] # (Auto) 0.5 Eos # (Auto) 0.0 Baso # (Auto) 0.0 Abs Immat Gran (auto) 0.11 H Absolute Neuts (auto) 5.5 Absolute Nucleated RBC 0.000 Nucleated RBC % (auto) 0.0 Smear Tech's Comments VERIFIED VBG pH 7.52 H VBG pCO2 33 VBG pO2 39 VBG HCO3 27 H VBG O2 Saturation 64.0 VBG Base Excess 4.8 Sodium 138 Potassium 3.0 L Chloride 100 Carbon Dioxide 24 Anion Gap 17 BUN 36 H Creatinine 2.88 H Estim Creat Clear Calc 25.1 Estimated GFR 17 POC Glucose Random Glucose 111 Calcium 8.9 D Phosphorus 2.7 Magnesium 2.0 Total Bilirubin 0.5 AST 23 ALT 36 H Alkaline Phosphatase 86 Total Protein 4.8 L Albumin 3.2 L D Random Vancomycin Blood Type Antibody Screen Crossmatch Crossmatch ([facility]) 04/08/21 04/08/21 04/08/21 06:05 07:31 11:35 WBC RBC Hgb Hct MCV MCH MCHC RDW Plt Count MPV Immature Gran % (Auto) Neut % (Auto) Lymph % (Auto) [place] % (Auto) Eos % (Auto) Baso % (Auto) Lymph # (Auto) [place] # (Auto) Eos # (Auto) Baso # (Auto) Abs Immat Gran (auto) Absolute Neuts (auto) Absolute Nucleated RBC Nucleated RBC % (auto) Smear Tech's Comments VBG pH VBG pCO2 VBG pO2 VBG HCO3 VBG O2 Saturation VBG Base Excess Sodium Potassium Chloride Carbon Dioxide Anion Gap BUN Creatinine Estim Creat Clear Calc Estimated GFR POC Glucose 104 98 Random Glucose Calcium Phosphorus Magnesium Total Bilirubin AST ALT Alkaline Phosphatase Total Protein Albumin Random Vancomycin Blood Type O Negative Antibody Screen NEGATIVE Crossmatch Crossmatch ([facility]) See Detail Microbiology Microbiology Results: Microbiology 04/02/21 13:20 Sputum - Suctioned Gram Stain - Final 04/02/21 13:20 Sputum - Suctioned Sputum Culture - Final Methicillin Res Staph Aureus 03/24/21 16:49 Blood - Central Line Blood Culture - Final No growth after 5 days. 03/24/21 16:49 Blood - Central Line Blood Culture - Final No growth after 5 days. 03/24/21 16:50 Urine Catheterized - Witt Catheter Urine Culture - Final No growth. 03/18/21 19:37 Blood - Venous Blood Culture - Final No growth after 5 days. 03/18/21 19:37 Blood - Venous Blood Culture - Final Progress Note: A&P Assessment and plan (1) Metabolic encephalopathy: Status: Acute (2) Acute on chronic systolic (congestive) heart failure: Status: Acute (3) Acute respiratory failure with hypoxia: Status: Acute (4) JOAN (acute kidney injury): Status: Acute (5) COPD (chronic obstructive pulmonary disease): Status: Acute (6) LEO (obstructive sleep apnea): Status: Acute Plan Assessment: 60-year-old lady with underlying morbid obesity, LEO, obesity hyperventilation COPD 2 L dependent, remote history of cardiac arrest, CKD stage IV admitted with alteration of mental status, uremia COVID-19, acute hypoxic respiratory failure now requiring ventilatory and hemodialysis support. Plan: Neuro: Acute metabolic encephalopathy likely secondary, poor improvement with hemodialysis. Cardiac: NSTEMI versus demand ischemia. Initial 2D echocardiogram with biventricular systolic congestive heart failure, now with slow improvement. Pulmonary: Acute hypoxic respiratory failure on the background of COVID-19 initially requiring ventilatory support. Extubated 03/21/2021, later requiring re-intubation for an aspiration event. continue to titrate of ventilatory support as tolerated. A this a.m. following commands with sedation vacation, extubated uneventfully. Renal: Acute renal failure on the background of chronic kidney disease, may be related to COVID-19. Now requiring hemodialysis support.. Nephrology service care appreciated. Endo: No acute issues. GI: No acute issues. ID: COVID-19 , resolved. Heme/Onc: Subacute anemia, likely combination of slow blood loss, diminished production, chronic disease and acute kidney failure effect. Patient to receive 1 unit of packed red blood cells. Psych: No acute issues. Miscellaneous: No acute issues. Prophylaxis: pneumatic compression, ppi Diet: Pending swallow evaluation Critical care time spent: 45 minutes Quality Stroke Does the patient have a stroke diagnosis?: No VTE Prior VTE?: No VTE Risk Level:: Medical - moderate - high VTE Device Contraindication: Treatment Not Indicated VTE Drug Contraindication: N/A - Med Ordered
[2021-04-08 17:17] LABS: Vancomycin Random 15.9 mcg/mL (15-20)
[2021-04-08 17:32] LABS: Glucose, Whole Blood 83 mg/dL (60-115)
[2021-04-08] MEDS: vancomycin HCL 500 MG in 0.9 % Sodium Chloride 100 ML 110 MG IV (17:40)
[2021-04-08 22:13] LABS: VBG Base Excess 0.5 mmol/L; VBG HCO3 23 mmol/L (22-26); VBG pCO2 32 mmHg; VBG pH 7.46 (7.32-7.43); VBG pO2 57 mmHg
[2021-04-08 22:41] LABS: Venous Blood Gas Refer to POC result
[2021-04-08 23:53] LABS: Glucose, Whole Blood 81 mg/dL (60-115)
[2021-04-09] VITALS (31 sets, daily range): BP systolic 81–144; BP diastolic 37–102; PULSE 110–148; RESP 13–44; TEMP 35–38.6; O2SAT 93–100; BMI 38.4
[2021-04-09] MEDS: Metoprolol Tartrate 5 MG/5 ML VIAL IVPUSH ×2 (01:44→21:50)
--- NOTE | 2021-04-09 03:37 | PC.NURSE ---
Addendum entered by Charles Terrazas RN 04/09/21 06:15: fentanyl 50mcg iv x1 per icu inspector eyeglass for work of breathing Original Note: CARE ASSUMED 23:15...REMAINS EXTUBATED ON BIPAP 23/08 AND FIO2 30%...EYES OPEN SPONTANEOUSLY..TRACKS SPEAKER..NODS YES/NO BUT INCONSISTANTLY TO QUESTIONS...OCASSIONALLY SPEAKS 1-2 WORD RESPONSES WITH THICK SPEECH...MARKED GENERALIZED WEAKNESS... PER SHIT REPORT REMAINS TACHYPNEIC RR 36-40 WITH INCREASED WORK OF BREATHING...Ve 18-22 l/m...sao2 96-99%...SINUS TACHYCARDIA....HR 114-124...UNABLE TO TAKE PO MEDS...01:45 HR 128-130...PRN LOPRESSOR 5 MG IV GIVEN...HR 116 X1 HOUR...CURRENTLY S.TACH HR 124....ICU MIXING TANK OPERATOR AWARE...NO HR TREATMENT UNLESS HR >130 PER SHIFT REPORT..FOR AM LABS PREVIOUSLY ORDERED
[2021-04-09 05:26] LABS: Glucose, Whole Blood 81 mg/dL (60-115)
[2021-04-09 05:31] LABS: MANUAL DIFF FLAG NO
[2021-04-09 05:34] LABS: Hemoglobin 8.2 g/dl (12.0-16.0); Imm Gran Abs Auto 0.19 X10*3/uL (0.00-0.03); Imm Gran Pct Auto 2.1 % (0.0-0.4); Lymphocytes Absolute Auto 0.4 X10*3/uL (1.2-4.9); Lymphocytes Percent Auto 4.3 % (20-40); Mean Corpuscular HGB Conc 31.5 g/dl (31.0-35.0); Mean Corpuscular Volume 88.7 fL (80.0-98.0); Mean Platelet Volume 9.9 fL (9.4-12.3); Monocytes Absolute Auto 0.7 X10*3/uL (0.1-1.2); Monocytes Percent Auto 7.4 % (2-11); Neutrophils Absolute Auto 7.9 x10*3/uL (2.0-8.3); Neutrophils Percent Auto 86.2 % (45-73); Platelet Count 200 X10*3/uL (160-400); Red Blood Count 2.93 X10*6/uL (4.20-5.50); Red Cell Distribution Width 16.1 % (11.0-16.0); White Blood Count 9.1 X10*3/uL (4.8-10.8)
[2021-04-09 05:39] LABS: VBG Base Excess -0.9 mmol/L; VBG HCO3 23 mmol/L (22-26); VBG pCO2 34 mmHg; VBG pH 7.42 (7.32-7.43); VBG pO2 44 mmHg
[2021-04-09 05:41] LABS: Venous Blood Gas Refer to POC result
[2021-04-09 05:52] LABS: Albumin Level 3.5 g/dL (3.5-5.0); Anion Gap 22 (12-20); Blood Urea Nitrogen 40 mg/dL (9-16); Calcium 9.4 mg/dL (8.4-10.2); Carbon Dioxide 21 mmol/L (22-29); Chloride 101 mmol/L (96-108); Creatinine Clr Calc Pharmacy 20.1; Estimated Glomerular Filt Rate 13; Glucose Random 77 mg/dL (60-115); Phosphorus 4.7 mg/dL (2.7-4.5); Potassium 4.7 mmol/L (3.3-5.1); Sodium 139 mmol/L (135-145)
[2021-04-09] MEDS: fentaNYL citrate/PF 100 MCG/2 ML VIAL 50 MCG IVPUSH (06:06)
[2021-04-09] MEDS: Albuterol/Iprat 2.5/0.5MG 3 ML AMPUL.NEB INHALE ×3 (07:59→15:36)
[2021-04-09] MEDS: Sucralfate Oral Suspension 1 GM/10 ML ORAL.SUSP PO (09:15)
[2021-04-09] MEDS: Chlorhexidine Gluc Oral Rinse 15 ML MOUTHWASH BUCCAL ×3 (09:15→20:59)
[2021-04-09] MEDS: Metoprolol Tartrate 12.5 MG HALFTAB PO ×2 (09:15→21:00)
--- NOTE | 2021-04-09 09:38 | W.PM.DNNEP ---
Subjective Subjective This patient was seen during dialysis. Interval history: Events noted Extubated Still dyspneic Seen during HD Physical Exam Vital Signs: Vital Signs: Last Vital Signs Temp 98.1 F 04/09/21 09:00 Pulse 111 H 04/09/21 09:00 Resp 35 H 04/09/21 09:00 BP 112/74 04/09/21 09:00 Pulse Ox 98 04/09/21 09:00 BMI result Body Mass Index 38.4 Const: Other: Awake Lungs with Rhonchi Hrt : No gallop or rub Abd Obese Soft NS no asterexis General: ill appearing Assessment & Plan Assessment and plan (1) JOAN (acute kidney injury): Status: Acute Plan JOAN superimposed on CKD /Uremia No obstruction by sonogram No proteinuria/Hematuria- AGN/AIN seem unlikely Probably has ATN- multifatorail s/p Shock COVID -19 Resp failure Plan HD 3 x week Need to plan for permcath UF again tomorrow Time Spent With Patient Time: Total time spent is greater than 50% in coordination of care (as documented) at patient's floor/unit and/or counseling patient: Time with patient: 15 - 24 minutes Procedures Date of Service Date of Service: 04/09/21
--- NOTE | 2021-04-09 10:36 | MHC.CLN ---
F/U PT EXTUBATED PT IS AT RISK FOR POST EXTUBATION MALNUTRITION DIET RX: NPO PENDING SWALLOW EVAL WHEN DIET TO ADVANCE; RECOMMEND ENSURE CLEAR TID AND FELIX BID TO INCREASE KCALS AND PROMOTE WOUND HEALING SUPP IS RENAL FRIENDLY AND WILL PROVIDE 880KCALS, 29G PROTEIN WITH 100% ACCEPTANCE MONITOR PO INTAKE CLOSELY
[2021-04-09 11:44] LABS: Glucose, Whole Blood 78 mg/dL (60-115)
--- NOTE | 2021-04-09 12:28 | P.PNCC_ITS ---
Subjective Subjective Date of Service: 04/09/21 Interval History: 60-year-old lady with underlying history of COPD on 2 L of supplemental oxygen, lung cancer on palliative XRT, polysubstance abuse now on methadone, seizure disorder, CKD, CHF admitted on 03/18/2021 with worsening alteration of mental status. On ER evaluation patient was noted to be COVID-19 positive, tachycardic and tachypneic, profoundly confused, then acutely developed hypoxia refractory to noninvasive supplemental oxygen support requiring intubation and ventilatory support. Patient was empirically covered with broad-spectrum antibiotic and transferred to intensive care unit. her troponin noted to be up trending she was started heparin drip. 2D echocardiogram demonstrated biventricular reduced systolic function. She was extubated on 03/21/2021, but required re-intubation for an aspiration. Further hospital course significant progressive renal dysfunction requiring initiation dialysis support and slow overall improvement in LVEF. overnight with development respiratory distress that improved with noninvasive positive pressure ventilation support and hemodialysis this a.m.. Critical Care Time (minutes): 45 Physical Exam Vital Signs: Vital Signs: Last Vital Signs Temp 98.6 F 04/09/21 12:00 Pulse 132 H 04/09/21 12:00 Resp 21 H 04/09/21 12:00 BP 103/61 04/09/21 12:00 Pulse Ox 95 04/09/21 12:00 BMI result Body Mass Index 38.4 Const: General: no acute distress, alert, awake and lethargic ( Follows commands) Orientation/consciousness: lethargic ( Follows commands) Eyes: Sclerae: sclerae normal EOM: EOMs intact bilaterally Neck: Neck: Yes no lymphadenopathy, Yes trachea midline and Yes supple Resp: Effort & Inspection: no respiratory distress ( on high-flow nasal cannula) and tachypneic Auscultation: crackles ( diffuse bilateral) Cardio: Rate: tachycardic Rhythm: regular rhythm Heart sounds: no gallops, no murmurs and no rubs GI: Palpation (GI): Soft to palpation and Other GI palpation findings present ( Nontender) Auscultation: normal bowel sounds Extrem: General: No clubbing, No cyanosis and Yes edema ( 1+ bilateral) Objective Data Labs CBC & Chem 7: 04/09/21 05:25 04/09/21 05:25 Labs: Laboratory Results - last 24 hr 04/08/21 04/08/2104/08/22 07:31 16:45 17:28 WBC RBC Hgb Hct MCV MCH MCHC RDW Plt Count MPV Immature Gran % (Auto) Neut % (Auto) Lymph % (Auto) [place] % (Auto) Eos % (Auto) Baso % (Auto) Lymph # (Auto) [place] # (Auto) Eos # (Auto) Baso # (Auto) Abs Immat Gran (auto) Absolute Neuts (auto) Absolute Nucleated RBC Nucleated RBC % (auto) VBG pH VBG pCO2 VBG pO2 VBG HCO3 VBG O2 Saturation VBG Base Excess Sodium Potassium Chloride Carbon Dioxide Anion Gap BUN Creatinine Estim Creat Clear Calc Estimated GFR POC Glucose 83 Random Glucose Calcium Phosphorus Magnesium Albumin Random Vancomycin 15.9 Crossmatch ([facility]) See Detail 04/08/21 04/08/21 04/09/21 22:06 23:49 05:22 WBC RBC Hgb Hct MCV MCH MCHC RDW Plt Count MPV Immature Gran % (Auto) Neut % (Auto) Lymph % (Auto) [place] % (Auto) Eos % (Auto) Baso % (Auto) Lymph # (Auto) [place] # (Auto) Eos # (Auto) Baso # (Auto) Abs Immat Gran (auto) Absolute Neuts (auto) Absolute Nucleated RBC Nucleated RBC % (auto) VBG pH 7.46 H VBG pCO2 32 VBG pO2 57 VBG HCO3 23 VBG O2 Saturation 86.0 VBG Base Excess 0.5 Sodium Potassium Chloride Carbon Dioxide Anion Gap BUN Creatinine Estim Creat Clear Calc Estimated GFR POC Glucose 81 81 Random Glucose Calcium Phosphorus Magnesium Albumin Random Vancomycin Crossmatch ([facility]) 04/09/21 04/09/21 04/09/21 05:25 05:25 05:32 WBC 9.1 RBC 2.93 L D Hgb 8.2 L D Hct 26.0 L D MCV 88.7 MCH 28.0 MCHC 31.5 RDW 16.1 H Plt Count 200 MPV 9.9 Immature Gran % (Auto) 2.1 H Neut % (Auto) 86.2 H Lymph % (Auto) 4.3 L [place] % (Auto) 7.4 Eos % (Auto) 0.0 Baso % (Auto) 0.0 Lymph # (Auto) 0.4 L [place] # (Auto) 0.7 Eos # (Auto) 0.0 Baso # (Auto) 0.0 Abs Immat Gran (auto) 0.19 H Absolute Neuts (auto) 7.9 Absolute Nucleated RBC 0.000 Nucleated RBC % (auto) 0.0 VBG pH 7.42 VBG pCO2 34 VBG pO2 44 VBG HCO3 23 VBG O2 Saturation 68.0 VBG Base Excess -0.9 Sodium 139 Potassium 4.7 D Chloride 101 Carbon Dioxide 21 L Anion Gap 22 H BUN 40 H Creatinine 3.54 H Estim Creat Clear Calc 20.1 Estimated GFR 13 POC Glucose Random Glucose 77 Calcium 9.4 Phosphorus 4.7 H Magnesium 2.0 Albumin 3.5 Random Vancomycin Crossmatch ([facility]) 04/09/21 11:42 WBC RBC Hgb Hct MCV MCH MCHC RDW Plt Count MPV Immature Gran % (Auto) Neut % (Auto) Lymph % (Auto) [place] % (Auto) Eos % (Auto) Baso % (Auto) Lymph # (Auto) [place] # (Auto) Eos # (Auto) Baso # (Auto) Abs Immat Gran (auto) Absolute Neuts (auto) Absolute Nucleated RBC Nucleated RBC % (auto) VBG pH VBG pCO2 VBG pO2 VBG HCO3 VBG O2 Saturation VBG Base Excess Sodium Potassium Chloride Carbon Dioxide Anion Gap BUN Creatinine Estim Creat Clear Calc Estimated GFR POC Glucose 78 Random Glucose Calcium Phosphorus Magnesium Albumin Random Vancomycin Crossmatch ([facility]) Microbiology Microbiology Results: Microbiology 04/02/21 13:20 Sputum - Suctioned Gram Stain - Final 04/02/21 13:20 Sputum - Suctioned Sputum Culture - Final Methicillin Res Staph Aureus 03/24/21 16:49 Blood - Central Line Blood Culture - Final No growth after 5 days. 03/24/21 16:49 Blood - Central Line Blood Culture - Final No growth after 5 days. 03/24/21 16:50 Urine Catheterized - Witt Catheter Urine Culture - Final No growth. 03/18/21 19:37 Blood - Venous Blood Culture - Final No growth after 5 days. 03/18/21 19:37 Blood - Venous Blood Culture - Final Progress Note: A&P Assessment and plan (1) Metabolic encephalopathy: Status: Acute (2) Acute on chronic systolic (congestive) heart failure: Status: Acute (3) Acute respiratory failure with hypoxia: Status: Acute (4) JOAN (acute kidney injury): Status: Acute (5) COPD (chronic obstructive pulmonary disease): Status: Acute (6) LEO (obstructive sleep apnea): Status: Acute (7) Restrictive lung disease: Status: Acute Plan Assessment: 60-year-old lady with underlying morbid obesity, LEO, obesity hype rventilation COPD 2 L dependent, remote history of cardiac arrest, CKD stage IV admitted with alteration of mental status, uremia COVID-19, acute hypoxic respiratory failure now requiring ventilatory and hemodialysis support. Plan: Neuro: Acute metabolic encephalopathy likely secondary, poor improvement with hemodialysis. Cardiac: NSTEMI versus demand ischemia. Initial 2D echocardiogram with biventricular systolic congestive heart failure, now with slow improvement. Pulmonary: Acute hypoxic respiratory failure on the background of COVID-19 initially requiring ventilatory support. Extubated 03/21/2021, later requiring re-intubation for an aspiration event. extubated again on 04/08/2021. Patient with periodic episodes of pulmonary edema improve with noninvasive positive pressure ventilation support and ultrafiltration /hemodialysis. Renal: Acute renal failure on the background of chronic kidney disease, may be related to COVID-19. Now requiring hemodialysis support.. Nephrology service care appreciated. Endo: No acute issues. GI: No acute issues. ID: [id number] , resolved. Heme/Onc: Subacute anemia, likely combination of slow blood loss, diminished production, chronic disease and acute kidney failure effect. Continue to monitor blood counts. Psych: No acute issues. Miscellaneous: No acute issues. Prophylaxis: pneumatic compression, ppi Diet: Pending swallow evaluation Critical care time spent: 45 minutes Quality Stroke Does the patient have a stroke diagnosis?: No VTE Prior VTE?: No VTE Risk Level:: Medical - moderate - high VTE Device Contraindication: Treatment Not Indicated VTE Drug Contraindication: N/A - Med Ordered
[2021-04-09 14:42] LABS: Vancomycin Random 14.6 mcg/mL (15-20)
--- NOTE | 2021-04-09 14:44 | MHC.CM.PN ---
Pt has been successfully extubated and is on high flow O2. She continues on hemodialysis and will be getting a tunneled cath in the next day or two. Pt will need rehab following her very prolonged stay. Referrals made to STR w/ HD capability. CM to follow.
--- NOTE | 2021-04-09 14:44 | HE.PHANOTE ---
VANCOMYCIN DOSING ADDENDUM: The patient had fluid removed yesterday 04/08 which resulted in about a loss of 3 liters. The post fluid removal trough was 15.9 so another 500 mg dose of vancomcyin was given. Today, 04/09 the patient received dialysis and the post dialysis vancomycin trough was 14.6. We will give another dose of 500 mg at this time and continue to follow the patients fluid removal schedule.
--- NOTE | 2021-04-09 15:07 | W.PM.CCHP ---
Procedures Date of Service Date of Service: 04/09/21 Intubation Intubation Comments: Patient with acute development of respiratory distress and hypoxemia refractory to BiPAP support, emergently intubated with 7.5 cuffed ET tube under glide scope guidance with no immediate complications. X-ray for ET tube position is pending. Sedative: propofol Mg given: 60
[2021-04-09] MEDS: propofoL 200 MG/20 ML VIAL 60 MG IVPUSH (15:10)
[2021-04-09] MEDS: propofoL 1,000 MG/100 ML VIAL 12.8 MG IVCONT ×2 (15:11→22:29)
[2021-04-09] MEDS: vancomycin HCL 500 MG in 0.9 % Sodium Chloride 100 ML 110 MG IV (15:17)
--- NOTE | 2021-04-09 15:29 | MHC.SLORD ---
Speech Language Pathology Order Status: Order received for bedside dysphagia evaluation. SPICE MIXER was notified that patient was re-intubated shortly after. Please re-refer once patient is 24 hours post-extubation.
[2021-04-09 17:40] LABS: Glucose, Whole Blood 83 mg/dL (60-115)
--- NOTE | 2021-04-09 22:46 | HO.WOUNDCONS ---
History of Present Illness Data of Consult Service Date: 04/09/21 Requesting physician: Neal Shabazz Primary Care Provider: Valerie Castano MD HPI Reason for consult: wounds The patient is a 60 year old female who has been in the ICu intubated and then extubated then failed intubation - she has developed several wounds sacrum, coccyx labia wounds- [facility] Medical History (Updated 04/09/21 @ 22:54 by Rain Almonte MD) Anemia in chronic kidney disease Anxiety and depression Breast cancer screening by mammogram COPD (chronic obstructive pulmonary disease) COVID-19 vaccine series completed Dyslipidemia History of claustrophobia History of seizure HTN (hypertension) Hx of cardiac arrest Infected lip laceration Kidney disease Lung cancer Methadone maintenance therapy patient Multiple fractures of ribs O2 dependent LEO (obstructive sleep apnea) Respiratory failure Restrictive lung disease Tubular adenoma of colon Vitamin D deficiency Family History Father Diabetes mellitus Mother Depression Mental health disorder Maternal Grandfather Colon cancer Sister No problems noted. Son No problems noted. Daughter No problems noted. Daughter No problems noted. Surgical History H/O colonoscopy History of hand surgery History of laparoscopy History of tubal ligation S/P ureteral stent placement Social History Household Members: Spouse Housing: House Are you a primary intensive care medicine specialist to a significant other at home: No Do you presently have visiting nurse or other home services: Yes Unable to assess alcohol history related to: Unable to respond Alcohol intake: never Patient Tobacco Use Status: Former Tobacco user Quit Date: 2011 Tobacco use type: Cigarette Years Smoked: 25 yrs Advance Directives Date on File: 03/21/21 service: No Current occupational status: disabled Meds Allergies Allergy/AdvReac Type Severity Reaction Status Date / Time ciprofloxacin [From Cipro] Allergy Unknown HIVES/SWELLING, Verified 02/20/21 15:09 THROAT CLOSES shellfish derived Allergy Unknown UNKNOWN Verified 02/20/21 15:09 [SHELLFISH DERIVED] NSAIDS AdvReac Unknown avoid cue Verified 02/20/21 15:09 to kidney disease Active Medications: Current Medications Chlorhexidine Gluconate (Chlorhexidine Gluc Oral Rinse 15 Ml Mouthwash) 15 ml BUCCAL TID [facility] Last Admin: 04/09/21 20:59 Dose: 15 ml Documented by: Chlorhexidine Gluconate (Chlorhexidine Gluc Oral Rinse 15 Ml Mouthwash) 15 ml BUCCAL TID [facility] Last Admin: 04/09/21 21:00 Dose: Not Given Documented by: Dextrose (Dextrose 50 % 25 Gm/50 Ml Syringe) 25 gm IVPUSH Q15M PRN; Protocol PRN Reason: per Hypoglycemia Standing Ord. Last Admin: 04/08/21 04:07 Dose: 25 gm Documented by: Famotidine (Famotidine/Pf 20 Mg/2 Ml Vial) 20 mg IVPUSH DAILY [facility] Norepinephrine Bitartrate (Levophed) 8 mg in 250 mls @ 0 mls/hr IVCONT .Q0M [facility]; Protocol Last Admin: 04/09/21 15:12 Dose: 0.05 mcg/kg/min, 8.15 mls/hr Documented by: Vancomycin HCl 500 mg/ Sodium (Chloride) 110 mls @ 110 mls/hr IV SUTUTH ANALISA Propofol (Diprivan) 1,000 mg in 100 mls @ 0 mls/hr IVCONT .Q0M [facility]; Protocol Last Admin: 04/09/21 22:29 Dose: 20 mcg/kg/min, 12.8 mls/hr Documented by: Propofol (Diprivan) 1,000 mg in 100 mls @ 0 mls/hr IVCONT .Q0M [facility]; Protocol Insulin Human Lispro (Insulin Lispro 100 Unit/Ml 3 Ml Vial) 0 unit SUBCUT Q6H [facility]; Protocol Last Admin: 04/09/21 18:00 Dose: Not Given Documented by: Levalbuterol HCl (Levalbuterol Hcl 1.25 Mg/0.5 Ml Vial.Neb) 1.25 mg INHALE Q3H PRN PRN Reason: Dyspnea Last Admin: 04/04/21 10:00 Dose: 1.25 mg Documented by: Lorazepam (Lorazepam 2 Mg/Ml Vial) 1 mg IVPUSH Q4H PRN PRN Reason: RR>30 Last Admin: 04/07/21 05:51 Dose: 1 mg Documented by: Metoprolol Tartrate (Metoprolol Tartrate 12.5 Mg Halftab) 12.5 mg PO BID [facility]; Protocol Last Admin: 04/09/21 21:00 Dose: 12.5 mg Documented by: Metoprolol Tartrate (Metoprolol Tartrate 5 Mg/5 Ml Vial) 5 mg IVPUSH Q4H PRN PRN Reason: HR>120 Last Admin: 04/09/21 21:50 Dose: 5 mg Documented by: Pharmacy Consult (Consult Rx Vancomycin Dosing) 1 each MISCELLANE DAILY PRN PRN Reason: Consult order Home Medications Medication Instructions Recorded Confirmed Last Taken Type albuterol sulfate 2.5 mg INHALATION Q6H PRN 04/25/20 10/15/20 10/09/20 History clonazepam 1 mg tablet (Klonopin) 1 mg PO TID 04/25/20 03/18/21 10/09/20 History diltiazem HCl 120 mg 1 cap PO DAILY 04/25/20 03/18/21 Unknown History capsule,extended release 24 hr hydroxyzine pamoate 50 mg capsule 50 mg PO BEDTIME PRN 04/25/20 03/18/21 Unknown History metolazone 2.5 mg tablet 2.5 mg PO 2XW 07/24/20 03/18/21 Unknown History torsemide 20 mg tablet 40 mg PO BID tab 08/03/20 03/18/21 Unknown History methadone 10 mg/mL oral concentrate 73 mg PO DAILY ml 09/04/20 10/15/20 Unknown History isosorbide mononitrate 60 mg 60 mg PO DAILY 03/18/21 03/18/21 Unknown History tablet,extended release 24 hr Physical Exam Vital Signs and Narrative: Vital Signs: Last Vital Signs Temp 100.8 F H 04/09/21 22:00 Pulse 122 H 04/09/21 22:00 Resp 20 04/09/21 22:00 BP 97/60 04/09/21 22:00 Pulse Ox 95 04/09/21 22:00 BMI result Body Mass Index 38.4 Skin: Other: sacrum wound had been a stage 2 on prior eval and documentation 03/28 but seemingly on imaging 04/07 it looked like fat involvement which brings it up to a stage 3 today this wound is the largest at 2.2 cm long but depth seems to just involve the deeper dermis making it a a stage 2 coccyx breakdown is a stage 2 as no fat noted the labia wound i think mainly arises from some moisture and maybe a bit of friction from the cota but not convincingly pressure - there is some fat exposed in the base of this wound no evidence of infection the surrounding tissue of these wounds looks ok Results Labs CBC and Chem 7: 04/09/21 05:25 04/09/21 05:25 Labs: Laboratory Results - last 24 hr 04/08/21 04/09/21 04/09/21 23:49 05:22 05:25 MCV 88.7 MCH 28.0 MCHC 31.5 RDW 16.1 H Plt Count 200 MPV 9.9 Immature Gran % (Auto) 2.1 H Neut % (Auto) 86.2 H Lymph % (Auto) 4.3 L [place] % (Auto) 7.4 Eos % (Auto) 0.0 Baso % (Auto) 0.0 Lymph # (Auto) 0.4 L [place] # (Auto) 0.7 Eos # (Auto) 0.0 Baso # (Auto) 0.0 Abs Immat Gran (auto) 0.19 H Absolute Neuts (auto) 7.9 Absolute Nucleated RBC 0.000 Nucleated RBC % (auto) 0.0 VBG pH VBG pCO2 VBG pO2 VBG HCO3 VBG O2 Saturation VBG Base Excess Anion Gap Estim Creat Clear Calc Estimated GFR POC Glucose 81 81 Random Glucose Calcium Phosphorus Magnesium Albumin Random Vancomycin 04/09/21 04/09/21 04/09/21 05:25 05:32 11:42 MCV MCH MCHC RDW Plt Count MPV Immature Gran % (Auto) Neut % (Auto) Lymph % (Auto) [place] % (Auto) Eos % (Auto) Baso % (Auto) Lymph # (Auto) [place] # (Auto) Eos # (Auto) Baso # (Auto) Abs Immat Gran (auto) Absolute Neuts (auto) Absolute Nucleated RBC Nucleated RBC % (auto) VBG pH 7.42 VBG pCO2 34 VBG pO2 44 VBG HCO3 23 VBG O2 Saturation 68.0 VBG Base Excess -0.9 Anion Gap 22 H Estim Creat Clear Calc 20.1 Estimated GFR 13 POC Glucose 78 Random Glucose 77 Calcium 9.4 Phosphorus 4.7 H Magnesium 2.0 Albumin 3.5 Random Vancomycin 04/09/21 04/09/21 14:00 17:36 MCV MCH MCHC RDW Plt Count MPV Immature Gran % (Auto) Neut % (Auto) Lymph % (Auto) [place] % (Auto) Eos % (Auto) Baso % (Auto) Lymph # (Auto) [place] # (Auto) Eos # (Auto) Baso # (Auto) Abs Immat Gran (auto) Absolute Neuts (auto) Absolute Nucleated RBC Nucleated RBC % (auto) VBG pH VBG pCO2 VBG pO2 VBG HCO3 VBG O2 Saturation VBG Base Excess Anion Gap Estim Creat Clear Calc Estimated GFR POC Glucose 83 Random Glucose Calcium Phosphorus Magnesium Albumin Random Vancomycin 14.6 L Imaging Radiologist's Impressions: Impressions Chest X-Ray 04/09/21 15:20 IMPRESSION: Endotracheal tube tip 3 cm above the oswaldo. Assessment and Plan (1) Pressure injury of sacral region, stage 2: Status: Acute Plan Pt is a 60 year old female with multiple med issues - intubated in ICU with wounds -- Pressure sacral wound the largest - was obvious stage 2 a few days ago and imaging and nursing note on 04/07 it seemed to involve fat but on todays exam i think the base is mainly dermal tissue and would be stage 2 the coccyx wound is stage 2 the labia wound i think is more from some moisture and maceration and maybe with some degree of friction from cota - not typical of pressure wound though recommend rotation, offload q2 hrs, pressure bed stop triad and use barrier cream to wounds and foam dressing careful with cota placement nutrition - protein and vitamin also treatment of medical issues
[2021-04-09] MEDS: Esmolol HCl/NaCl Iso 2,500 MG/250 ML IV.SOLN 30.48 MG IVCONT (23:48)
[2021-04-10] VITALS (36 sets, daily range): BP systolic 84–111; BP diastolic 53–72; PULSE 86–150; RESP 16–27; TEMP 34–37.9; O2SAT 30–100; BMI 37.8
[2021-04-10 00:01] LABS: Glucose, Whole Blood 79 mg/dL (60-115)
[2021-04-10] MEDS: propofoL 1,000 MG/100 ML VIAL 12.8 MG IVCONT ×3 (03:43→18:15)
[2021-04-10] MEDS: Esmolol HCl/NaCl Iso 2,500 MG/250 ML IV.SOLN 91.44 MG IVCONT ×2 (03:49→06:15)
[2021-04-10 05:37] LABS: VBG Base Excess 3.8 mmol/L; VBG HCO3 26 mmol/L (22-26); VBG pCO2 30 mmHg; VBG pH 7.54 (7.32-7.43); VBG pO2 46 mmHg
[2021-04-10 05:42] LABS: Glucose, Whole Blood 77 mg/dL (60-115)
[2021-04-10 05:43] LABS: Venous Blood Gas Refer to POC result
[2021-04-10 05:52] LABS: Hematocrit 23.4 % (37.0-47.0); Hemoglobin 7.2 g/dl (12.0-16.0); Mean Corpuscular HGB Conc 30.8 g/dl (31.0-35.0); Mean Corpuscular Hemoglobin 27.3 pg (27.0-33.0); Mean Corpuscular Volume 88.6 fL (80.0-98.0); Mean Platelet Volume 9.9 fL (9.4-12.3); NRBC Pct Auto 0.3 /100WBC (0.0-0.2); Platelet Count 234 X10*3/uL (160-400); Red Blood Count 2.64 X10*6/uL (4.20-5.50); Red Cell Distribution Width 16.5 % (11.0-16.0); White Blood Count 7.2 X10*3/uL (4.8-10.8)
[2021-04-10 06:14] LABS: Anion Gap 19 (12-20); Blood Urea Nitrogen 22 mg/dL (9-16); Calcium 8.6 mg/dL (8.4-10.2); Carbon Dioxide 23 mmol/L (22-29); Chloride 102 mmol/L (96-108); Creatinine Clr Calc Pharmacy 28.4; Estimated Glomerular Filt Rate 20; Glucose Random 76 mg/dL (60-115); Magnesium 1.9 mg/dL (1.6-2.6); Phosphorus 3.4 mg/dL (2.7-4.5); Potassium 3.5 mmol/L (3.3-5.1); Sodium 140 mmol/L (135-145)
[2021-04-10 07:05] LABS: Atypical Lymph Absolute Manual 0.1 x10*3/uL; Atypical Lymphs Percent Manual 1 % (0-6); Band Neutrophils Percent 16 % (3-5); Lymphocytes Absolute Manual 0.6 X10*3/uL (1.2-4.9); Lymphocytes Percent Manual 9 % (20-40); Metamyelocytes Absolute 0.1 X10*3/uL; Metamyelocytes Percent 1 %; Monocytes Absolute Manual 0.4 X10*3/uL (0.1-1.2); Monocytes Percent Manual 6 % (2-11); Neutrophils Percent Manual 67 % (45-73); Nucleated Red Blood Cells 1 /100WBC (0-0)
[2021-04-10 07:06] LABS: RBC Morphology NOTED
[2021-04-10 07:07] LABS: Hypochromasia 1+ (5-14) /OIF
[2021-04-10 07:08] LABS: Microcytosis 1+ (5-14) /OIF
[2021-04-10 07:11] LABS: Platelet Estimate NORMAL (NORMAL); Platelet Morphology Comment NORM
[2021-04-10] MEDS: Potassium Chloride/H20 40 MEQ/100 ML PIGGYBACK 50 MEQ IV (07:33)
[2021-04-10] MEDS: Metoprolol Tartrate 12.5 MG HALFTAB PO ×2 (07:34→21:49)
[2021-04-10] MEDS: Chlorhexidine Gluc Oral Rinse 15 ML MOUTHWASH BUCCAL ×3 (07:34→21:50)
[2021-04-10] MEDS: Famotidine/PF 20 MG/2 ML VIAL IVPUSH (07:34)
--- NOTE | 2021-04-10 09:00 | MHC.CLN ---
F/U PT WAS RE-INTUBATED RECOMMEND RE-STARTING PROMOTE AT MAX GOAL RATE 60ML/HR TO PROVIDE 1440KCALS (1778KCALS WITH SEDATION; 27KCALS/KG BASED ON CMW), 90G PROTEIN (1.4G/KG), 1688ML TOTAL FREE WATER FROM FORMULA AND FLUSHES (26ML/KG) TF WILL PROMOTE WOUND HEALING AND FIBER FREE FORMULA MONITOR TOLERANCE, RESIDUALS AND LYTES (K+ AND PHOS)
--- NOTE | 2021-04-10 09:11 | PM.PNNEP ---
Subjective Subjective Date of Service: 04/10/21 Interval history: Reintubated Physical Exam Vital Signs: Vital Signs: Last Vital Signs Temp 99.5 F 04/10/21 09:00 Pulse 94 04/10/21 09:00 Resp 18 04/10/21 09:00 BP 103/67 04/10/21 09:00 Pulse Ox 97 04/10/21 09:00 BMI result Body Mass Index 37.8 Const: Other: Awake Reintubated 04/09/21 Lungs with Rhonchi Hrt : No gallop or rub Abd Obese Soft NS no asterexis General: ill appearing Objective Data Labs CBC & Chem 7: 04/10/21 05:23 04/10/21 05:23 Labs: Laboratory Results - last 24 hr 04/09/21 04/09/21 04/09/21 11:42 14:00 17:36 WBC RBC Hgb Hct MCV MCH MCHC RDW Plt Count MPV Immature Gran % (Auto) Neut % (Auto) Lymph % (Auto) [place] % (Auto) Eos % (Auto) Baso % (Auto) Lymph # (Auto) [place] # (Auto) Eos # (Auto) Baso # (Auto) Abs Immat Gran (auto) Absolute Neuts (auto) Absolute Nucleated RBC Nucleated RBC % (auto) Neutrophils % (Manual) Band Neutrophils % Lymphocytes % (Manual) Atypical Lymphs % (Man) Monocytes % (Manual) Metamyelocytes % Abs Neuts (Manual) Lymphocytes # (Manual) Atyp Lymphs # (Manual) Monocytes # (Manual) Metamyelocytes # Nucleated RBCs Platelet Estimate Plt Morphology Comment RBC Morphology Hypochromasia Microcytosis VBG pH VBG pCO2 VBG pO2 VBG HCO3 VBG O2 Saturation VBG Base Excess Sodium Potassium Chloride Carbon Dioxide Anion Gap BUN Creatinine Estim Creat Clear Calc Estimated GFR POC Glucose 78 83 Random Glucose Calcium Phosphorus Magnesium Albumin Random Vancomycin 14.6 L 04/09/21 04/10/21 04/10/21 23:57 05:23 05:23 WBC 7.2 RBC 2.64 L Hgb 7.2 L Hct 23.4 L MCV 88.6 MCH 27.3 MCHC 30.8 L RDW 16.5 H Plt Count 234 MPV 9.9 Immature Gran % (Auto) Cancelled Neut % (Auto) Cancelled Lymph % (Auto) Cancelled [place] % (Auto) Cancelled Eos % (Auto) Cancelled Baso % (Auto) Cancelled Lymph # (Auto) Cancelled [place] # (Auto) Cancelled Eos # (Auto) Cancelled Baso # (Auto) Cancelled Abs Immat Gran (auto) Cancelled Absolute Neuts (auto) Cancelled Absolute Nucleated RBC 0.020 H Nucleated RBC % (auto) 0.3 H Neutrophils % (Manual) 67 Band Neutrophils % 16 H Lymphocytes % (Manual) 9 L Atypical Lymphs % (Man) 1 Monocytes % (Manual) 6 Metamyelocytes % 1 Abs Neuts (Manual) 6.0 Lymphocytes # (Manual) 0.6 L Atyp Lymphs # (Manual) 0.1 Monocytes # (Manual) 0.4 Metamyelocytes # 0.1 Nucleated RBCs 1 H Platelet Estimate NORMAL Plt Morphology Comment NORM RBC Morphology NOTED Hypochromasia 1+ (5-14) Microcytosis 1+ (5-14) VBG pH VBG pCO2 VBG pO2 VBG HCO3 VBG O2 Saturation VBG Base Excess Sodium 140 Potassium 3.5 D Chloride 102 Carbon Dioxide 23 Anion Gap 19 BUN 22 H Creatinine 2.50 H Estim Creat Clear Calc 28.4 Estimated GFR 20 POC Glucose 79 Random Glucose 76 Calcium 8.6 D Phosphorus 3.4 Magnesium 1.9 Albumin 3.0 L Random Vancomycin 04/10/21 04/10/21 05:30 05:38 WBC RBC Hgb Hct MCV MCH MCHC RDW Plt Count MPV Immature Gran % (Auto) Neut % (Auto) Lymph % (Auto) [place] % (Auto) Eos % (Auto) Baso % (Auto) Lymph # (Auto) [place] # (Auto) Eos # (Auto) Baso # (Auto) Abs Immat Gran (auto) Absolute Neuts (auto) Absolute Nucleated RBC Nucleated RBC % (auto) Neutrophils % (Manual) Band Neutrophils % Lymphocytes % (Manual) Atypical Lymphs % (Man) Monocytes % (Manual) Metamyelocytes % Abs Neuts (Manual) Lymphocytes # (Manual) Atyp Lymphs # (Manual) Monocytes # (Manual) Metamyelocytes # Nucleated RBCs Platelet Estimate Plt Morphology Comment RBC Morphology Hypochromasia Microcytosis VBG pH 7.54 H VBG pCO2 30 VBG pO2 46 VBG HCO3 26 VBG O2 Saturation 79.0 VBG Base Excess 3.8 Sodium Potassium Chloride Carbon Dioxide Anion Gap BUN Creatinine Estim Creat Clear Calc Estimated GFR POC Glucose 77 Random Glucose Calcium Phosphorus Magnesium Albumin Random Vancomycin Microbiology Microbiology Results: Microbiology 04/02/21 13:20 Sputum - Suctioned Gram Stain - Final 04/02/21 13:20 Sputum - Suctioned Sputum Culture - Final Methicillin Res Staph Aureus 03/24/21 16:49 Blood - Central Line Blood Culture - Final No growth after 5 days. 03/24/21 16:49 Blood - Central Line Blood Culture - Final No growth after 5 days. 03/24/21 16:50 Urine Catheterized - Witt Catheter Urine Culture - Final No growth. 03/18/21 19:37 Blood - Venous Blood Culture - Final No growth after 5 days. 03/18/21 19:37 Blood - Venous Blood Culture - Final Procedures Date of Service Date of Service: 04/10/21 Assessment & Plan Assessment and plan (1) JOAN (acute kidney injury): Status: Acute Plan JOAN superimposed on CKD /Uremia No obstruction by sonogram No proteinuria/Hematuria- AGN/AIN seem unlikely Probably has ATN- multifatorail s/p Shock COVID -19 Resp failure Plan HD 3 x week Need to plan for permcath Extra UF today Time Spent With Patient Time: Total time spent is greater than 50% in coordination of care (as documented) at patient's floor/unit and/or counseling patient: Progress Note: Quality Stroke Does the patient have a stroke diagnosis?: No
[2021-04-10] MEDS: Esmolol HCl/NaCl Iso 2,500 MG/250 ML IV.SOLN 30.48 MG IVCONT ×2 (10:15→18:11)
[2021-04-10 11:05] LABS: Glucose, Whole Blood 74 mg/dL (60-115)
--- NOTE | 2021-04-10 11:53 | PM.CCPN ---
Subjective Subjective Date of Service: 04/10/21 Interval History: 60-year-old lady with underlying history of COPD on 2 L of supplemental oxygen, lung cancer on palliative XRT, polysubstance abuse now on methadone, seizure disorder, CKD, CHF admitted on 03/18/2021 with worsening alteration of mental status. On ER evaluation patient was noted to be COVID-19 positive, tachycardic and tachypneic, profoundly confused, then acutely developed hypoxia refractory to noninvasive supplemental oxygen support requiring intubation and ventilatory support. Patient was empirically covered with broad-spectrum antibiotic and transferred to intensive care unit. her troponin noted to be up trending she was started heparin drip. 2D echocardiogram demonstrated biventricular reduced systolic function. She was extubated on 03/21/2021, but required re-intubation for an aspiration. Further hospital course significant progressive renal dysfunction requiring initiation dialysis support and slow overall improvement in LVEF. Patient was again extubated 04/08/2021, however she required re-intubation on 04/09/2021 for development of respiratory distress hypoxia likely secondary to flash pulmonary edema. No events overnight. Critical Care Time (minutes): 45 Physical Exam Vital Signs: Vital Signs: Last Vital Signs Temp 99.3 F 04/10/21 10:56 Pulse 98 04/10/21 10:56 Resp 23 H 04/10/21 10:56 BP 104/63 04/10/21 10:56 Pulse Ox 98 04/10/21 10:56 BMI result Body Mass Index 37.8 Const: General: no acute distress and other (Sedated on the vent) Nutritional Appearance: obese and Edematous Eyes: Sclerae: sclerae normal EOM: EOMs intact bilaterally Neck: Neck: Yes no lymphadenopathy, Yes trachea midline and Yes supple Resp: Auscultation: clear to auscultation bilaterally Cardio: Rate: regular rate Rhythm: regular rhythm Heart sounds: no gallops, no murmurs and no rubs GI: Palpation (GI): Soft to palpation and Other GI palpation findings present ( Nontender) Auscultation: normal bowel sounds Extrem: General: No clubbing, No cyanosis and Yes edema (1+ bilateral) Objective Data Labs CBC & Chem 7: 04/10/21 05:23 04/10/21 05:23 Labs: Laboratory Results - last 24 hr 04/09/21 04/09/21 04/09/21 14:00 17:36 23:57 WBC RBC Hgb Hct MCV MCH MCHC RDW Plt Count MPV Immature Gran % (Auto) Neut % (Auto) Lymph % (Auto) [place] % (Auto) Eos % (Auto) Baso % (Auto) Lymph # (Auto) [place] # (Auto) Eos # (Auto) Baso # (Auto) Abs Immat Gran (auto) Absolute Neuts (auto) Absolute Nucleated RBC Nucleated RBC % (auto) Neutrophils % (Manual) Band Neutrophils % Lymphocytes % (Manual) Atypical Lymphs % (Man) Monocytes % (Manual) Metamyelocytes % Abs Neuts (Manual) Lymphocytes # (Manual) Atyp Lymphs # (Manual) Monocytes # (Manual) Metamyelocytes # Nucleated RBCs Platelet Estimate Plt Morphology Comment RBC Morphology Hypochromasia Microcytosis VBG pH VBG pCO2 VBG pO2 VBG HCO3 VBG O2 Saturation VBG Base Excess Sodium Potassium Chloride Carbon Dioxide Anion Gap BUN Creatinine Estim Creat Clear Calc Estimated GFR POC Glucose 83 79 Random Glucose Calcium Phosphorus Magnesium Albumin Random Vancomycin 14.6 L 04/10/21 04/10/21 04/10/21 05:23 05:23 05:30 WBC 7.2 RBC 2.64 L Hgb 7.2 L Hct 23.4 L MCV 88.6 MCH 27.3 MCHC 30.8 L RDW 16.5 H Plt Count 234 MPV 9.9 Immature Gran % (Auto) Cancelled Neut % (Auto) Cancelled Lymph % (Auto) Cancelled [place] % (Auto) Cancelled Eos % (Auto) Cancelled Baso % (Auto) Cancelled Lymph # (Auto) Cancelled [place] # (Auto) Cancelled Eos # (Auto) Cancelled Baso # (Auto) Cancelled Abs Immat Gran (auto) Cancelled Absolute Neuts (auto) Cancelled Absolute Nucleated RBC 0.020 H Nucleated RBC % (auto) 0.3 H Neutrophils % (Manual) 67 Band Neutrophils % 16 H Lymphocytes % (Manual) 9 L Atypical Lymphs % (Man) 1 Monocytes % (Manual) 6 Metamyelocytes % 1 Abs Neuts (Manual) 6.0 Lymphocytes # (Manual) 0.6 L Atyp Lymphs # (Manual) 0.1 Monocytes # (Manual) 0.4 Metamyelocytes # 0.1 Nucleated RBCs 1 H Platelet Estimate NORMAL Plt Morphology Comment NORM RBC Morphology NOTED Hypochromasia 1+ (5-14) Microcytosis 1+ (5-14) VBG pH 7.54 H VBG pCO2 30 VBG pO2 46 VBG HCO3 26 VBG O2 Saturation 79.0 VBG Base Excess 3.8 Sodium 140 Potassium 3.5 D Chloride 102 Carbon Dioxide 23 Anion Gap 19 BUN 22 H Creatinine 2.50 H Estim Creat Clear Calc 28.4 Estimated GFR 20 POC Glucose Random Glucose 76 Calcium 8.6 D Phosphorus 3.4 Magnesium 1.9 Albumin 3.0 L Random Vancomycin 04/10/21 04/10/21 05:38 11:02 WBC RBC Hgb Hct MCV MCH MCHC RDW Plt Count MPV Immature Gran % (Auto) Neut % (Auto) Lymph % (Auto) [place] % (Auto) Eos % (Auto) Baso % (Auto) Lymph # (Auto) [place] # (Auto) Eos # (Auto) Baso # (Auto) Abs Immat Gran (auto) Absolute Neuts (auto) Absolute Nucleated RBC Nucleated RBC % (auto) Neutrophils % (Manual) Band Neutrophils % Lymphocytes % (Manual) Atypical Lymphs % (Man) Monocytes % (Manual) Metamyelocytes % Abs Neuts (Manual) Lymphocytes # (Manual) Atyp Lymphs # (Manual) Monocytes # (Manual) Metamyelocytes # Nucleated RBCs Platelet Estimate Plt Morphology Comment RBC Morphology Hypochromasia Microcytosis VBG pH VBG pCO2 VBG pO2 VBG HCO3 VBG O2 Saturation VBG Base Excess Sodium Potassium Chloride Carbon Dioxide Anion Gap BUN Creatinine Estim Creat Clear Calc Estimated GFR POC Glucose 77 74 Random Glucose Calcium Phosphorus Magnesium Albumin Random Vancomycin Microbiology Microbiology Results: Microbiology 04/02/21 13:20 Sputum - Suctioned Gram Stain - Final 04/02/21 13:20 Sputum - Suctioned Sputum Culture - Final Methicillin Res Staph Aureus 03/24/21 16:49 Blood - Central Line Blood Culture - Final No growth after 5 days. 03/24/21 16:49 Blood - Central Line Blood Culture - Final No growth after 5 days. 03/24/21 16:50 Urine Catheterized - Witt Catheter Urine Culture - Final No growth. 03/18/21 19:37 Blood - Venous Blood Culture - Final No growth after 5 days. 03/18/21 19:37 Blood - Venous Blood Culture - Final Progress Note: A&P Assessment and plan (1) Metabolic encephalopathy: Status: Acute (2) Acute on chronic systolic (congestive) heart failure: Status: Acute (3) Acute respiratory failure with hypoxia: Status: Acute (4) Failure to wean from mechanical ventilation: Status: Acute (5) JOAN (acute kidney injury): Status: Acute (6) COPD (chronic obstructive pulmonary disease): Status: Acute (7) LEO (obstructive sleep apnea): Status: Acute Plan Assessment: 60-year-old lady with underlying morbid obesity, LEO, obesity hyperventilation COPD 2 L dependent, remote history of cardiac arrest, CKD stage IV admitted with alteration of mental status, uremia COVID-19, acute hypoxic respiratory failure now requiring ventilatory and hemodialysis support. Plan: Neuro: Acute metabolic encephalopathy likely secondary, improved significantly with resolution of uremia. Cardiac: NSTEMI versus demand ischemia. Initial 2D echocardiogram with biventricular systolic congestive heart failure, now with slow improvement. Pulmonary: Acute hypoxic respiratory failure on the background of COVID-19 initially requiring ventilatory support. Extubated 03/21/2021, later requiring re-intubation for an aspiration event. Extubated again on 04/08/2021 and required re-intubation 04/09/2021 secondary to development of respiratory distress with hypoxia likely secondary to flash pulmonary edema. Now planned for tracheostomy and parenteral gastrostomy. Renal: Acute renal failure on the background of chronic kidney disease, may be related to COVID-19. Now requiring hemodialysis support. Nephrology service care appreciated. Endo: No acute issues. GI: No acute issues. ID: [id number] , resolved. Heme/Onc: Subacute anemia, likely combination of slow blood loss, diminished production, chronic disease and acute kidney failure effect. Continue to monitor blood counts. Psych: No acute issues. Miscellaneous: No acute issues. Prophylaxis: pneumatic compression, ppi Diet: Tube feeds Critical care time spent: 45 minutes Quality Stroke Does the patient have a stroke diagnosis?: No VTE Prior VTE?: No VTE Risk Level:: Medical - moderate - high VTE Device Contraindication: Treatment Not Indicated VTE Drug Contraindication: N/A - Med Ordered
--- NOTE | 2021-04-10 12:55 | HE.PHANOTE ---
Vancomycin Addendum: Today patient had fluid removed and the post trough level came back at 19. I will hold the vancomycin dose for today and will reevaluate tomorrow.
--- NOTE | 2021-04-10 13:22 | PC.NURSE ---
Addendum entered by Gisele Sanchez RN 04/18/21 15:33: There was documentation on April 06 for DTI to bilateral posterior heels from the pneumatic boots that I forgot to mention in my note. Moistrizer cream placed on the areas and floated on pillows. Original Note: Follow up skin/wound assessment. Upon conversation with Dr. Almonte, the sacrum which was staged at 3 due to subcutaneous fat showing had healed enough when she saw the wound that she staged it at Stage 2. The labia an inner thighs were staged as pressure injuries due to the cota but said it was more like moisture associated skin damage with the cota causing some friction. Barrier cream applied to labia and thighs. Silver alginate applied to the stage 2 sacrum injury covered with foam.
--- NOTE | 2021-04-10 15:59 | MHC.CM.PN ---
Per discussion in rounds: MD spoke with pt's family and they have opted for a trach/peg placement - Unsure of when this will occur. Referred to [facility] in anticipation. Call placed to pt's HCP, James Mahmood: no answer and no VM: call placed to HCP #2, dtr Anabel: LM requesting a call back. CM to follow for LTAC placement.
[2021-04-10 18:02] LABS: Glucose, Whole Blood 86 mg/dL (60-115)
[2021-04-10 23:43] LABS: Glucose, Whole Blood 105 mg/dL (60-115)
[2021-04-10] MEDS: propofoL 1,000 MG/100 ML VIAL 25.61 MG IVCONT (23:45)
[2021-04-11] VITALS (33 sets, daily range): BP systolic 79–126; BP diastolic 46–86; PULSE 86–116; RESP 12–24; TEMP 34.8–37.9; O2SAT 6–100; BMI 38.4
[2021-04-11] MEDS: Esmolol HCl/NaCl Iso 2,500 MG/250 ML IV.SOLN 30.48 MG IVCONT ×2 (02:12→10:34)
[2021-04-11] MEDS: propofoL 1,000 MG/100 ML VIAL 25.61 MG IVCONT ×2 (02:20→06:01)
[2021-04-11 05:23] LABS: VBG Base Excess 3.7 mmol/L; VBG HCO3 25 mmol/L (22-26); VBG pCO2 30 mmHg; VBG pH 7.53 (7.32-7.43); VBG pO2 57 mmHg
[2021-04-11 05:34] LABS: Hematocrit 24.1 % (37.0-47.0); Hemoglobin 7.7 g/dl (12.0-16.0); Mean Corpuscular Hemoglobin 27.8 pg (27.0-33.0); Mean Platelet Volume 9.5 fL (9.4-12.3); NRBC Pct Auto 0.3 /100WBC (0.0-0.2); Platelet Count 305 X10*3/uL (160-400); Red Blood Count 2.77 X10*6/uL (4.20-5.50); Red Cell Distribution Width 16.8 % (11.0-16.0); White Blood Count 6.3 X10*3/uL (4.8-10.8)
[2021-04-11 05:40] LABS: INTERNATIONAL NORM RATIO 1.2 (0.9-1.1); Prothrombin Time 13.7 SEC (9.9-13.0)
[2021-04-11 05:42] LABS: Glucose, Whole Blood 123 mg/dL (60-115)
[2021-04-11 05:42] LABS: Partial Thromboplastin Time 32.5 SEC (24.1-38.0)
[2021-04-11 05:54] LABS: Albumin Level 3.1 g/dL (3.5-5.0); Anion Gap 15 (12-20); Blood Urea Nitrogen 33 mg/dL (9-16); Calcium 8.9 mg/dL (8.4-10.2); Carbon Dioxide 25 mmol/L (22-29); Chloride 101 mmol/L (96-108); Creatinine Clr Calc Pharmacy 21.7; Estimated Glomerular Filt Rate 15; Glucose Random 129 mg/dL (60-115); Magnesium 1.9 mg/dL (1.6-2.6); Phosphorus 3.9 mg/dL (2.7-4.5); Potassium 3.9 mmol/L (3.3-5.1); Sodium 137 mmol/L (135-145)
[2021-04-11 06:09] LABS: Venous Blood Gas Refer to POC result
[2021-04-11 06:23] LABS: Atypical Lymph Absolute Manual 0.2 x10*3/uL; Atypical Lymphs Percent Manual 3 % (0-6); Band Neutrophils Percent 21 % (3-5); Dohle Bodies PRESENT; Eosinophils Absolute Manual 0.1 X10*3/uL (0.0-0.4); Eosinophils Percent Manual 1 % (0-4); Large Platelet PRESENT; Lymphocytes Absolute Manual 1.1 X10*3/uL (1.2-4.9); Lymphocytes Percent Manual 18 % (20-40); Monocytes Absolute Manual 0.3 X10*3/uL (0.1-1.2); Monocytes Percent Manual 4 % (2-11); Myelocytes Absolute 0.1 X10*/uL; Myelocytes Percent 1 %; Neutrophils Absolute Manual 4.6 X10*3/uL (2.0-8.3); Neutrophils Percent Manual 52 % (45-73); Nucleated Red Blood Cells 1 /100WBC (0-0); Platelet Estimate NORMAL (NORMAL); Platelet Morphology Comment NOTED; Polychromasia 1+ (0-2) /OIF; RBC Morphology NORMAL; Smudge Cells PRESENT; Target Cells 1+ (5-14) /OIF
[2021-04-11] MEDS: Chlorhexidine Gluc Oral Rinse 15 ML MOUTHWASH BUCCAL ×2 (07:40→20:44)
[2021-04-11] MEDS: Metoprolol Tartrate 12.5 MG HALFTAB PO ×2 (07:41→20:44)
[2021-04-11] MEDS: Famotidine/PF 20 MG/2 ML VIAL IVPUSH (07:41)
--- NOTE | 2021-04-11 10:46 | MHC.CLN ---
F/U PT'S TF ON HOLD THIS AM FOR SCHEDULED TRACH/PEG PROCEDURE WHEN TF NEEDED; RECOMMEND RE-STARTING PROMOTE AT MAX GOAL RATE 60ML/HR TO PROVIDE 1440KCALS (23KCALS/KG BASED ON CMW), 90G PROTEIN (1.4G/KG), 1688ML TOTAL FREE WATER FROM FORMULA AND FLUSHES (26ML/KG) TF WILL PROMOTE WOUND HEALING MONITOR TOLERANCE, RESIDUALS AND LYTES (K+ AND PHOS)
[2021-04-11 11:23] LABS: Glucose, Whole Blood 99 mg/dL (60-115)
--- NOTE | 2021-04-11 11:45 | P.PNNPD_ITS ---
Subjective Subjective This patient was seen during dialysis. Interval history: 60-year-old lady with underlying history of COPD on 2 L of supplemental oxygen, lung cancer on palliative XRT, polysubstance abuse now on methadone, seizure disorder, CKD, CHF admitted on 03/18/2021 with worsening alteration of mental status. On ER evaluation patient was noted to be COVID-19 positive, tachycardic and tachypneic, profoundly confused, then acutely developed hypoxia refractory to noninvasive supplemental oxygen support requiring intubation and ventilatory support. Patient was empirically covered with broad-spectrum antibiotic and transferred to intensive care unit. her troponin noted to be up trending she was started heparin drip. 2D echocardiogram demonstrated biventricular reduced systolic function. She was extubated on 03/21/2021, but required re-intubation for an aspiration. Further hospital course significant progressive renal dysfunction requiring initiation dialysis support and slow overall improvement in LVEF. Patient was again extubated 04/08/2021, however she required re- intubation on 04/09/2021 for development of respiratory distress hypoxia likely secondary to flash pulmonary edema. No events overnight. Physical Exam Vital Signs: Vital Signs: Last Vital Signs Temp 98.4 F 04/11/21 09:00 Pulse 86 04/11/21 11:00 Resp 14 04/11/21 11:00 BP 116/70 04/11/21 11:00 Pulse Ox 97 04/11/21 11:00 BMI result Body Mass Index 38.4 Const: Other: Awake Reintubated 04/09/21 Lungs with Rhonchi Hrt : No gallop or rub Abd Obese Soft NS no asterexis General: ill appearing Assessment & Plan Assessment and plan (1) JOAN (acute kidney injury): Status: Acute Plan JOAN superimposed on CKD /Uremia No obstruction by sonogram No proteinuria/Hematuria- AGN/AIN seem unlikely Probably has ATN- multifatorail s/p Shock COVID -19 Resp failure Plan HD 3 x week Need to plan for permcath Await PEG/Trach Time Spent With Patient Time: Total time spent is greater than 50% in coordination of care (as documented) at patient's floor/unit and/or counseling patient: Procedures Date of Service Date of Service: 04/11/21
--- NOTE | 2021-04-11 11:54 | P.PNCC_ITS ---
Subjective Subjective Date of Service: 04/11/21 Interval History: 60-year-old lady with underlying history of COPD on 2 L of supplemental oxygen, lung cancer on palliative XRT, polysubstance abuse now on methadone, seizure disorder, CKD, CHF admitted on 03/18/2021 with worsening alteration of mental status. On ER evaluation patient was noted to be COVID-19 positive, tachycardic and tachypneic, profoundly confused, then acutely developed hypoxia refractory to noninvasive supplemental oxygen support requiring intubation and ventilatory support. Patient was empirically covered with broad-spectrum antibiotic and transferred to intensive care unit. her troponin noted to be up trending she was started heparin drip. 2D echocardiogram demonstrated biventricular reduced systolic function. She was extubated on 03/21/2021, but required re-intubation for an aspiration. Further hospital course significant progressive renal dysfunction requiring initiation dialysis support and slow overall improvement in LVEF. Patient was again extubated 04/08/2021, however she required re- intubation on 04/09/2021 for development of respiratory distress hypoxia likely secondary to flash pulmonary edema. Planned for tracheostomy and parenteral gastrostomy today. No events overnight. Critical Care Time (minutes): 45 Physical Exam Vital Signs: Vital Signs: Last Vital Signs Temp 98.4 F 04/11/21 09:00 Pulse 86 04/11/21 11:00 Resp 14 04/11/21 11:00 BP 116/70 04/11/21 11:00 Pulse Ox 97 04/11/21 11:00 BMI result Body Mass Index 38.4 Const: General: no acute distress and other ( Sedated on the vent) Eyes: Sclerae: sclerae normal EOM: EOMs intact bilaterally Neck: Neck: Yes no lymphadenopathy, Yes trachea midline and Yes supple Resp: Auscultation: crackles ( bibasilar) Cardio: Rate: regular rate Rhythm: regular rhythm Heart sounds: no gallops, no murmurs and no rubs GI: Palpation (GI): Soft to palpation and Other GI palpation findings present ( Nontender) Auscultation: normal bowel sounds Extrem: General: No clubbing, No cyanosis and Yes pedal edema ( trace bilateral) Objective Data Labs CBC & Chem 7: 04/11/21 05:14 04/11/21 05:14 Labs: Laboratory Results - last 24 hr 04/10/21 04/10/21 04/10/21 12:03 17:53 23:39 WBC RBC Hgb Hct MCV MCH MCHC RDW Plt Count MPV Immature Gran % (Auto) Neut % (Auto) Lymph % (Auto) [place] % (Auto) Eos % (Auto) Baso % (Auto) Lymph # (Auto) [place] # (Auto) Eos # (Auto) Baso # (Auto) Abs Immat Gran (auto) Absolute Neuts (auto) Absolute Nucleated RBC Nucleated RBC % (auto) Neutrophils % (Manual) Band Neutrophils % Lymphocytes % (Manual) Atypical Lymphs % (Man) Monocytes % (Manual) Eosinophils % (Manual) Myelocytes % Abs Neuts (Manual) Lymphocytes # (Manual) Atyp Lymphs # (Manual) Monocytes # (Manual) Eosinophils # (Manual) Myelocytes # Nucleated RBCs Smudge Cells Dohle Bodies Platelet Estimate Large Platelets Plt Morphology Comment RBC Morphology Polychromasia Target Cells PT INR APTT VBG pH VBG pCO2 VBG pO2 VBG HCO3 VBG O2 Saturation VBG Base Excess Sodium Potassium Chloride Carbon Dioxide Anion Gap BUN Creatinine Estim Creat Clear Calc Estimated GFR POC Glucose 86 105 Random Glucose Calcium Phosphorus Magnesium Albumin Random Vancomycin 19.0 04/11/21 04/11/21 04/11/21 05:14 05:14 05:14 WBC 6.3 RBC 2.77 L Hgb 7.7 L Hct 24.1 L MCV 87.0 MCH 27.8 MCHC 32.0 RDW 16.8 H Plt Count 305 D MPV 9.5 Immature Gran % (Auto) Cancelled Neut % (Auto) Cancelled Lymph % (Auto) Cancelled [place] % (Auto) Cancelled Eos % (Auto) Cancelled Baso % (Auto) Cancelled Lymph # (Auto) Cancelled [place] # (Auto) Cancelled Eos # (Auto) Cancelled Baso # (Auto) Cancelled Abs Immat Gran (auto) Cancelled Absolute Neuts (auto) Cancelled Absolute Nucleated RBC 0.020 H Nucleated RBC % (auto) 0.3 H Neutrophils % (Manual) 52 Band Neutrophils % 21 H Lymphocytes % (Manual) 18 L Atypical Lymphs % (Man) 3 Monocytes % (Manual) 4 Eosinophils % (Manual) 1 Myelocytes % 1 Abs Neuts (Manual) 4.6 Lymphocytes # (Manual) 1.1 L Atyp Lymphs # (Manual) 0.2 Monocytes # (Manual) 0.3 Eosinophils # (Manual) 0.1 Myelocytes # 0.1 Nucleated RBCs 1 H Smudge Cells PRESENT Dohle Bodies PRESENT Platelet Estimate NORMAL Large Platelets PRESENT Plt Morphology Comment NOTED RBC Morphology NORMAL Polychromasia 1+ (0-2) Target Cells 1+ (5-14) PT 13.7 H INR 1.2 H APTT 32.5 VBG pH VBG pCO2 VBG pO2 VBG HCO3 VBG O2 Saturation VBG Base Excess Sodium 137 Potassium 3.9 Chloride 101 Carbon Dioxide 25 Anion Gap 15 BUN 33 H Creatinine 3.27 H Estim Creat Clear Calc 21.7 Estimated GFR 15 POC Glucose Random Glucose 129 H Calcium 8.9 Phosphorus 3.9 Magnesium 1.9 Albumin 3.1 L Random Vancomycin 04/11/21 04/11/21 04/11/21 05:15 05:35 11:19 WBC RBC Hgb Hct MCV MCH MCHC RDW Plt Count MPV Immature Gran % (Auto) Neut % (Auto) Lymph % (Auto) [place] % (Auto) Eos % (Auto) Baso % (Auto) Lymph # (Auto) [place] # (Auto) Eos # (Auto) Baso # (Auto) Abs Immat Gran (auto) Absolute Neuts (auto) Absolute Nucleated RBC Nucleated RBC % (auto) Neutrophils % (Manual) Band Neutrophils % Lymphocytes % (Manual) Atypical Lymphs % (Man) Monocytes % (Manual) Eosinophils % (Manual) Myelocytes % Abs Neuts (Manual) Lymphocytes # (Manual) Atyp Lymphs # (Manual) Monocytes # (Manual) Eosinophils # (Manual) Myelocytes # Nucleated RBCs Smudge Cells Dohle Bodies Platelet Estimate Large Platelets Plt Morphology Comment RBC Morphology Polychromasia Target Cells PT INR APTT VBG pH 7.53 H VBG pCO2 30 VBG pO2 57 VBG HCO3 25 VBG O2 Saturation 88.0 VBG Base Excess 3.7 Sodium Potassium Chloride Carbon Dioxide Anion Gap BUN Creatinine Estim Creat Clear Calc Estimated GFR POC Glucose 123 H 99 Random Glucose Calcium Phosphorus Magnesium Albumin Random Vancomycin Microbiology Microbiology Results: Microbiology 04/02/21 13:20 Sputum - Suctioned Gram Stain - Final 04/02/21 13:20 Sputum - Suctioned Sputum Culture - Final Methicillin Res Staph Aureus 03/24/21 16:49 Blood - Central Line Blood Culture - Final No growth after 5 days. 03/24/21 16:49 Blood - Central Line Blood Culture - Final No growth after 5 days. 03/24/21 16:50 Urine Catheterized - Witt Catheter Urine Culture - Final No growth. 03/18/21 19:37 Blood - Venous Blood Culture - Final No growth after 5 days. 03/18/21 19:37 Blood - Venous Blood Culture - Final Progress Note: A&P Assessment and plan (1) Failure to wean from mechanical ventilation: Status: Acute (2) COPD (chronic obstructive pulmonary disease): Status: Acute (3) LEO (obstructive sleep apnea): Status: Acute (4) JOAN (acute kidney injury): Status: Acute (5) Acute on chronic systolic (congestive) heart failure: Status: Acute (6) Acute respiratory failure with hypoxia: Status: Acute Plan Assessment: 60-year-old lady with underlying morbid obesity, LEO, obesity hyperventilation COPD 2 L dependent, remote history of cardiac arrest, CKD stage IV admitted with alteration of mental status, uremia COVID-19, acute hypoxic respiratory failure now requiring ventilatory and hemodialysis support. Plan: Neuro: Acute metabolic encephalopathy likely secondary to uremia, improved significantly with resolution of uremia. Cardiac: NSTEMI versus demand ischemia. Initial 2D echocardiogram with biventricular systolic congestive heart failure, now with slow improvement. Pulmonary: Acute hypoxic respiratory failure on the background of COVID-19 initially requiring ventilatory support. Extubated 03/21/2021, later requiring re-intubation for an aspiration event. Extubated again on 04/08/2021 and required re-intubation 04/09/2021 secondary to development of respiratory distress with hypoxia likely secondary to flash pulmonary edema. Now planned for tracheostomy and parenteral gastrostomy. Renal: Acute renal failure on the background of chronic kidney disease, may be related to COVID-19. Now requiring hemodialysis support. Nephrology service care appreciated. Endo: No acute issues. GI: No acute issues. ID: [id number] , resolved. To finish 7 day vancomycin for MRSA in sputum on 04/12/2021. Heme/Onc: Subacute anemia, likely combination of slow blood loss, diminished production, chronic disease and acute kidney failure effect. Continue to monitor blood counts. No acute issues. Psych: No acute issues. Miscellaneous: No acute issues. Prophylaxis: pneumatic compression, ppi Diet: Tube feeds Critical care time spent: 45 minutes Quality Stroke Does the patient have a stroke diagnosis?: No VTE Prior VTE?: No VTE Risk Level:: Medical - moderate - high VTE Device Contraindication: Treatment Not Indicated VTE Drug Contraindication: N/A - Med Ordered
--- NOTE | 2021-04-11 12:55 | HO.ANESPROP2 ---
[facility] Active Problems Active Problems: All Active Problems (Updated 04/10/21 @ 15:39 by Anabel Kee PA-C) Failure to wean from mechanical ventilation (Acute) Lung cancer (Acute ~2019) O2 dependent (Acute) Respiratory failure (Acute) Restrictive lung disease (Acute) COPD (chronic obstructive pulmonary disease) (Acute) COVID-19 (Acute ~03/2021) Acute respiratory failure with hypoxia (Acute) Acute respiratory distress (Acute) Aspiration into airway (Acute) Pneumonia (Acute) LEO (obstructive sleep apnea) (Acute) Metabolic encephalopathy (Acute) Acute on chronic systolic (congestive) heart failure (Acute) CKD (chronic kidney disease) stage 4, GFR 15-29 ml/min (Acute) Anemia in chronic kidney disease (Acute) JOAN (acute kidney injury) (Acute) Hypokalemia (Acute) Tubulovillous adenoma of large intestine (Acute ~2020) Pressure injury of sacral region, stage 2 (Acute) Acute blood loss anemia (Acute) Uremia (Acute) Osteoarthritis of ankles, bilateral (Acute) Umbilical hernia (Acute) Olecranon bursitis of left elbow (Acute) Multiple fractures of ribs (Acute) Vitamin D deficiency (Acute) Elevated troponin (Acute) Past Medical History Medical History (Updated 04/10/21 @ 15:39 by Anabel Kee PA-C) Anemia in chronic kidney disease Anxiety and depression CKD (chronic kidney disease) stage 4, GFR 15-29 ml/min COPD (chronic obstructive pulmonary disease) COVID-19 (~03/2021) Dyslipidemia Family history of colon cancer History of claustrophobia History of seizure HTN (hypertension) Hx of cardiac arrest (~2015) Lung cancer (~2019) Methadone maintenance therapy patient Multiple fractures of ribs O2 dependent Obesity LEO (obstructive sleep apnea) Osteopenia (~2017) Respiratory failure Restrictive lung disease Tubulovillous adenoma of large intestine (~2020) Vitamin D deficiency Family History Family History Father Diabetes mellitus Mother Depression Mental health disorder Maternal Grandfather Colon cancer Sister No problems noted. Son No problems noted. Daughter No problems noted. Daughter No problems noted. Family history of problems with anesthesia: No Surgical History Surgical History (Updated 04/10/21 @ 15:42 by Anabel Kee PA-C) History of colonoscopy (~2020) History of esophagogastroduodenoscopy (EGD) (~2021) History of hand surgery History of laparoscopy (~2012) History of lung biopsy (~2019) History of removal of ureteral stent (~2013) History of tubal ligation History of Problems with Anesthesia: No Social History Social History Household Members: Spouse Housing: House Are you a primary child care center administrator to a significant other at home: No Do you presently have visiting nurse or other home services: Yes Unable to assess alcohol history related to: Unable to respond Alcohol intake: never Patient Tobacco Use Status: Former Tobacco user Quit Date: 2011 Tobacco use type: Cigarette Years Smoked: 25 yrs Advance Directives Date on File: 03/21/21 service: No Current occupational status: disabled Meds Allergies Allergy/AdvReac Type Severity Reaction Status Date / Time ciprofloxacin [From Cipro] Allergy Unknown HIVES/SWELLING, Verified 02/20/21 15:09 THROAT CLOSES shellfish derived Allergy Unknown UNKNOWN Verified 02/20/21 15:09 [SHELLFISH DERIVED] NSAIDS AdvReac Unknown avoid cue Verified 02/20/21 15:09 to kidney disease Active Medications: Current Medications Chlorhexidine Gluconate (Chlorhexidine Gluc Oral Rinse 15 Ml Mouthwash) 15 ml BUCCAL TID [facility] Last Admin: 04/11/21 07:40 Dose: 15 ml Documented by: Dextrose (Dextrose 50 % 25 Gm/50 Ml Syringe) 25 gm IVPUSH Q15M PRN; Protocol PRN Reason: per Hypoglycemia Standing Ord. Last Admin: 04/08/21 04:07 Dose: 25 gm Documented by: Famotidine (Famotidine/Pf 20 Mg/2 Ml Vial) 20 mg IVPUSH DAILY [facility] Last Admin: 04/11/21 07:41 Dose: 20 mg Documented by: Norepinephrine Bitartrate (Levophed) 8 mg in 250 mls @ 0 mls/hr IVCONT .Q0M ANALISA; Protocol Last Admin: 04/10/21 17:05 Dose: 0.05 mcg/kg/min, 8.15 mls/hr Documented by: Vancomycin HCl 500 mg/ Sodium (Chloride) 110 mls @ 110 mls/hr IV SUTUTH [facility] Propofol (Diprivan) 1,000 mg in 100 mls @ 0 mls/hr IVCONT .Q0M ANALISA; Protocol Last Titration: 04/11/21 07:57 Dose: 20 mcg/kg/min, 12.8 mls/hr Documented by: Esmolol HCl (Brevibloc/Nacl) 2,500 mg in 250 mls @ 0 mls/hr IVCONT .Q0M ANALISA; Protocol Last Admin: 04/11/21 10:34 Dose: 50 mcg/kg/min, 30.48 mls/hr Documented by: Insulin Human Lispro (Insulin Lispro 100 Unit/Ml 3 Ml Vial) 0 unit SUBCUT Q6H ANALISA; Protocol Last Admin: 04/11/21 05:46 Dose: Not Given Documented by: Metoprolol Tartrate (Metoprolol Tartrate 12.5 Mg Halftab) 12.5 mg PO BID [facility]; Protocol Last Admin: 04/11/21 07:41 Dose: 12.5 mg Documented by: Metoprolol Tartrate (Metoprolol Tartrate 5 Mg/5 Ml Vial) 5 mg IVPUSH Q4H PRN PRN Reason: HR>120 Last Admin: 04/09/21 21:50 Dose: 5 mg Documented by: Home Medications Medication Instructions Recorded Confirmed Last Taken Type albuterol sulfate 2.5 mg INHALATION Q6H PRN 04/25/20 10/15/20 10/09/20 History clonazepam 1 mg tablet (Klonopin) 1 mg PO TID 04/25/20 03/18/21 10/09/20 History diltiazem HCl 120 mg 1 cap PO DAILY 04/25/20 03/18/21 Unknown History capsule,extended release 24 hr hydroxyzine pamoate 50 mg capsule 50 mg PO BEDTIME PRN 04/25/20 03/18/21 Unknown History metolazone 2.5 mg tablet 2.5 mg PO 2XW 07/24/20 03/18/21 Unknown History torsemide 20 mg tablet 40 mg PO BID tab 08/03/20 03/18/21 Unknown History methadone 10 mg/mL oral concentrate 73 mg PO DAILY ml 09/04/20 10/15/20 Unknown History isosorbide mononitrate 60 mg 60 mg PO DAILY 03/18/21 03/18/21 Unknown History tablet,extended release 24 hr Exam Exam Date and Time: April 11, 2021 125 Height,Weight and Vital Signs: Height 5 ft 4 in Weight 101.5 kg Last Vital Signs Temp 98.4 F 04/11/21 12:00 Pulse 89 04/11/21 12:00 Resp 12 04/11/21 12:00 BP 116/78 04/11/21 12:00 Pulse Ox 98 04/11/21 12:00 Pertinent Lab Results Pertinent Lab Results: Laboratory Tests 03/18/21 03/18/21 03/18/21 00:00 20:13 20:13 WBC 20.6 H RBC 4.09 L Hgb 11.2 L Hct 34.8 L MCV 85.1 MCH 27.4 MCHC 32.2 RDW 12.8 Plt Count 322 MPV 9.7 Immature Gran % (Auto) 0.9 H Neut % (Auto) 88.6 H Lymph % (Auto) 4.4 L [place] % (Auto) 6.0 Eos % (Auto) 0.0 Baso % (Auto) 0.1 Lymph # (Auto) 0.9 L [place] # (Auto) 1.2 Eos # (Auto) 0.0 Baso # (Auto) 0.0 Abs Immat Gran (auto) 0.18 H Absolute Neuts (auto) 18.3 H Absolute Nucleated RBC 0.000 Nucleated RBC % (auto) 0.0 Neutrophils % (Manual) Band Neutrophils % Lymphocytes % (Manual) Atypical Lymphs % (Man) Monocytes % (Manual) Eosinophils % (Manual) Basophils % (Manual) Metamyelocytes % Myelocytes % Abs Neuts (Manual) Lymphocytes # (Manual) Atyp Lymphs # (Manual) Monocytes # (Manual) Eosinophils # (Manual) Basophils # (Manual) Metamyelocytes # Myelocytes # Nucleated RBCs Smudge Cells Dohle Bodies Platelet Estimate Large Platelets Plt Morphology Comment RBC Morphology Polychromasia Hypochromasia Basophilic Stippling Microcytosis Macrocytosis Pappenheimer Bodies Target Cells Tear Drop Cells Ovalocytes Abi Cells Acanthocytes (Spur) Smear Tech's Comments Smear Path Review ESR PT INR APTT aPTT Heparin Protocol D-Dimer High Sensitivty 2322 O2 Saturation ABG pH at Pt Temp ABG pH (Temp Correct) ABG pCO2 at Pt Temp ABG pCO2 (Temp Corrct ABG pO2 at Pt Temp ABG pO2 (Temp Correct ABG HCO3 ABG Base Excess (Actual) VBG pH VBG pCO2 VBG pO2 VBG HCO3 VBG O2 Saturation VBG Base Excess Sodium Potassium Chloride Carbon Dioxide Anion Gap BUN Creatinine Estim Creat Clear Calc Estimated GFR POC Glucose Random Glucose Lactic Acid Lactic Acid F/U @ 2Hr 1.3 Calcium Phosphorus Magnesium Ferritin Total Bilirubin Direct Bilirubin AST ALT Alkaline Phosphatase Ammonia Lactate Dehydrogenase Troponin I High Sens C-Reactive Protein B-Natriuretic Peptide Total Protein Albumin Procalcitonin Urine Color Urine Appearance Urine pH Ur Specific [place] Urine Protein Urine Glucose (UA) Urine Ketones Urine Blood Urine Nitrite Ur Leukocyte Esterase Urine RBC Urine WBC Ur Squamous Epith Cells Ur Renal Epithelial Cell Urine Bacteria Urine Yeast Nasal Screen MRSA (PCR) Nasal S. aureus Screen Nasal MRSA/S.aureus Interp Stool Occult Blood Stool Leukocytes, Qual Vancomycin Trough Random Vancomycin Urine Opiates Screen Urine Fentanyl Screen Ur Barbiturates Screen Ur Phencyclidine Scrn Ur Amphetamines Screen U Benzodiazepines Scrn Urine Cocaine Screen U Marijuana (THC) Screen C. difficile Tox B Gene COVID-19 ([facility]LEY) COVID-19 Clin Com Hepatitis A IgM Ab Hep Bs Antigen Hep Bs Antibody Hep B Core Total Ab Hepatitis C Ab (EIA) HIV 1&2 Ab/P24 Ag 4thGn Ur L.pneumophila Ag SARS-CoV-2 IgG Ab Blood Type Antibody Screen Antigen Identification Crossmatch Crossmatch (AHG) 03/18/21 03/18/21 03/18/21 20:13 20:13 20:13 WBC RBC Hgb Hct MCV MCH MCHC RDW Plt Count MPV Immature Gran % (Auto) Neut % (Auto) Lymph % (Auto) [place] % (Auto) Eos % (Auto) Baso % (Auto) Lymph # (Auto) [place] # (Auto) Eos # (Auto) Baso # (Auto) Abs Immat Gran (auto) Absolute Neuts (auto) Absolute Nucleated RBC Nucleated RBC % (auto) Neutrophils % (Manual) Band Neutrophils % Lymphocytes % (Manual) Atypical Lymphs % (Man) Monocytes % (Manual) Eosinophils % (Manual) Basophils % (Manual) Metamyelocytes % Myelocytes % Abs Neuts (Manual) Lymphocytes # (Manual) Atyp Lymphs # (Manual) Monocytes # (Manual) Eosinophils # (Manual) Basophils # (Manual) Metamyelocytes # Myelocytes # Nucleated RBCs Smudge Cells Dohle Bodies Platelet Estimate Large Platelets Plt Morphology Comment RBC Morphology Polychromasia Hypochromasia Basophilic Stippling Microcytosis Macrocytosis Pappenheimer Bodies Target Cells Tear Drop Cells Ovalocytes Abi Cells Acanthocytes (Spur) Smear Tech's Comments Smear Path Review ESR PT INR APTT aPTT Heparin Protocol D-Dimer High Sensitivty O2 Saturation ABG pH at Pt Temp ABG pH (Temp Correct) ABG pCO2 at Pt Temp ABG pCO2 (Temp Corrct ABG pO2 at Pt Temp ABG pO2 (Temp Correct ABG HCO3 ABG Base Excess (Actual) VBG pH VBG pCO2 VBG pO2 VBG HCO3 VBG O2 Saturation VBG Base Excess Sodium 140 Potassium 2.6 L D Chloride 92 L Carbon Dioxide 28 Anion Gap 23 H BUN 131 H Creatinine 2.54 H Estim Creat Clear Calc 33.2 Estimated GFR 19 POC Glucose Random Glucose 120 H Lactic Acid Lactic Acid F/U @ 2Hr Calcium 8.6 Phosphorus Magnesium Ferritin Total Bilirubin 0.7 Direct Bilirubin 0.2 AST 74 H ALT 31 Alkaline Phosphatase 70 D Ammonia 35 Lactate Dehydrogenase Troponin I High Sens 68.2 H* C-Reactive Protein B-Natriuretic Peptide 115 H Total Protein 7.0 Albumin 3.8 Procalcitonin Urine Color Urine Appearance Urine pH Ur Specific [place] Urine Protein Urine Glucose (UA) Urine Ketones Urine Blood Urine Nitrite Ur Leukocyte Esterase Urine RBC Urine WBC Ur Squamous Epith Cells Ur Renal Epithelial Cell Urine Bacteria Urine Yeast Nasal Screen MRSA (PCR) Nasal S. aureus Screen Nasal MRSA/S.aureus Interp Stool Occult Blood Stool Leukocytes, Qual Vancomycin Trough Random Vancomycin Urine Opiates Screen Urine Fentanyl Screen Ur Barbiturates Screen Ur Phencyclidine Scrn Ur Amphetamines Screen U Benzodiazepines Scrn Urine Cocaine Screen U Marijuana (THC) Screen C. difficile Tox B Gene COVID-19 ([facility]LEY) COVID-19 Clin Com Hepatitis A IgM Ab Hep Bs Antigen Hep Bs Antibody Hep B Core Total Ab Hepatitis C Ab (EIA) HIV 1&2 Ab/P24 Ag 4thGn Ur L.pneumophila Ag SARS-CoV-2 IgG Ab Blood Type Antibody Screen Antigen Identification Crossmatch Crossmatch (AHG) 03/18/21 03/18/21 03/18/21 20:13 20:13 20:13 WBC RBC Hgb Hct MCV MCH MCHC RDW Plt Count MPV Immature Gran % (Auto) Neut % (Auto) Lymph % (Auto) [place] % (Auto) Eos % (Auto) Baso % (Auto) Lymph # (Auto) [place] # (Auto) Eos # (Auto) Baso # (Auto) Abs Immat Gran (auto) Absolute Neuts (auto) Absolute Nucleated RBC Nucleated RBC % (auto) Neutrophils % (Manual) Band Neutrophils % Lymphocytes % (Manual) Atypical Lymphs % (Man) Monocytes % (Manual) Eosinophils % (Manual) Basophils % (Manual) Metamyelocytes % Myelocytes % Abs Neuts (Manual) Lymphocytes # (Manual) Atyp Lymphs # (Manual) Monocytes # (Manual) Eosinophils # (Manual) Basophils # (Manual) Metamyelocytes # Myelocytes # Nucleated RBCs Smudge Cells Dohle Bodies Platelet Estimate Large Platelets Plt Morphology Comment RBC Morphology Polychromasia Hypochromasia Basophilic Stippling Microcytosis Macrocytosis Pappenheimer Bodies Target Cells Tear Drop Cells Ovalocytes Abi Cells Acanthocytes (Spur) Smear Tech's Comments Smear Path Review ESR PT INR APTT aPTT Heparin Protocol D-Dimer High Sensitivty O2 Saturation ABG pH at Pt Temp ABG pH (Temp Correct) ABG pCO2 at Pt Temp ABG pCO2 (Temp Corrct ABG pO2 at Pt Temp ABG pO2 (Temp Correct ABG HCO3 ABG Base Excess (Actual) VBG pH VBG pCO2 VBG pO2 VBG HCO3 VBG O2 Saturation VBG Base Excess Sodium Potassium Chloride Carbon Dioxide Anion Gap BUN Creatinine Estim Creat Clear Calc Estimated GFR POC Glucose Random Glucose Lactic Acid 2.1 H* Lactic Acid F/U @ 2Hr Calcium Phosphorus Magnesium Ferritin Total Bilirubin Direct Bilirubin AST ALT Alkaline Phosphatase Ammonia Lactate Dehydrogenase Troponin I High Sens C-Reactive Protein B-Natriuretic Peptide Total Protein Albumin Procalcitonin Urine Color YELLOW Urine Appearance CLEAR Urine pH 6.5 Ur Specific [place] 1.010 Urine Protein 1+ H Urine Glucose (UA) NEG Urine Ketones NEG Urine Blood 2+ H Urine Nitrite NEG Ur Leukocyte Esterase NEG Urine RBC 1-4 Urine WBC 0 Ur Squamous Epith Cells 1+ Ur Renal Epithelial Cell Urine Bacteria TRACE Urine Yeast Nasal Screen MRSA (PCR) Nasal S. aureus Screen Nasal MRSA/S.aureus Interp Stool Occult Blood Stool Leukocytes, Qual Vancomycin Trough Random Vancomycin Urine Opiates Screen Urine Fentanyl Screen Ur Barbiturates Screen Ur Phencyclidine Scrn Ur Amphetamines Screen U Benzodiazepines Scrn Urine Cocaine Screen U Marijuana (THC) Screen C. difficile Tox B Gene COVID-19 (STANLEY) Positive A COVID-19 Clin Com See Note Hepatitis A IgM Ab Hep Bs Antigen Hep Bs Antibody Hep B Core Total Ab Hepatitis C Ab (EIA) HIV 1&2 Ab/P24 Ag 4thGn Ur L.pneumophila Ag SARS-CoV-2 IgG Ab Blood Type Antibody Screen Antigen Identification Crossmatch Crossmatch (AHG) 03/18/21 03/18/21 03/18/21 20:13 20:32 22:20 WBC RBC Hgb Hct MCV MCH MCHC RDW Plt Count MPV Immature Gran % (Auto) Neut % (Auto) Lymph % (Auto) [place] % (Auto) Eos % (Auto) Baso % (Auto) Lymph # (Auto) [place] # (Auto) Eos # (Auto) Baso # (Auto) Abs Immat Gran (auto) Absolute Neuts (auto) Absolute Nucleated RBC Nucleated RBC % (auto) Neutrophils % (Manual) Band Neutrophils % Lymphocytes % (Manual) Atypical Lymphs % (Man) Monocytes % (Manual) Eosinophils % (Manual) Basophils % (Manual) Metamyelocytes % Myelocytes % Abs Neuts (Manual) Lymphocytes # (Manual) Atyp Lymphs # (Manual) Monocytes # (Manual) Eosinophils # (Manual) Basophils # (Manual) Metamyelocytes # Myelocytes # Nucleated RBCs Smudge Cells Dohle Bodies Platelet Estimate Large Platelets Plt Morphology Comment RBC Morphology Polychromasia Hypochromasia Basophilic Stippling Microcytosis Macrocytosis Pappenheimer Bodies Target Cells Tear Drop Cells Ovalocytes Abi Cells Acanthocytes (Spur) Smear Tech's Comments Smear Path Review ESR PT INR APTT aPTT Heparin Protocol D-Dimer High Sensitivty O2 Saturation 97.0 ABG pH at Pt Temp 7.45 ABG pH (Temp Correct) ABG pCO2 at Pt Temp 37 ABG pCO2 (Temp Corrct ABG pO2 at Pt Temp 124 H ABG pO2 (Temp Correct ABG HCO3 26 ABG Base Excess (Actual) 2.3 VBG pH 7.82 H* VBG pCO2 20 VBG pO2 142 VBG HCO3 33 H VBG O2 Saturation 99.0 VBG Base Excess 16.0 Sodium Potassium Chloride Carbon Dioxide Anion Gap BUN Creatinine Estim Creat Clear Calc Estimated GFR POC Glucose Random Glucose Lactic Acid Lactic Acid F/U @ 2Hr Calcium Phosphorus Magnesium Ferritin Total Bilirubin Direct Bilirubin AST ALT Alkaline Phosphatase Ammonia Lactate Dehydrogenase Troponin I High Sens C-Reactive Protein B-Natriuretic Peptide Total Protein Albumin Procalcitonin Urine Color Urine Appearance Urine pH Ur Specific [place] Urine Protein Urine Glucose (UA) Urine Ketones Urine Blood Urine Nitrite Ur Leukocyte Esterase Urine RBC Urine WBC Ur Squamous Epith Cells Ur Renal Epithelial Cell Urine Bacteria Urine Yeast Nasal Screen MRSA (PCR) Nasal S. aureus Screen Nasal MRSA/S.aureus Interp Stool Occult Blood Stool Leukocytes, Qual Vancomycin Trough Random Vancomycin Urine Opiates Screen POSITIVE H Urine Fentanyl Screen POSITIVE H Ur Barbiturates Screen Not Detected Ur Phencyclidine Scrn Not Detected Ur Amphetamines Screen Not Detected U Benzodiazepines Scrn Not Detected Urine Cocaine Screen Not Detected U Marijuana (THC) Screen Not Detected C. difficile Tox B Gene COVID-19 (ST[facility]LEY) COVID-19 Clin Com Hepatitis A IgM Ab Hep Bs Antigen Hep Bs Antibody Hep B Core Total Ab Hepatitis C Ab (EIA) HIV 1&2 Ab/P24 Ag 4thGn Ur L.pneumophila Ag SARS-CoV-2 IgG Ab Blood Type Antibody Screen Antigen Identification Crossmatch Crossmatch (AHG) 03/18/21 03/19/21 03/19/21 22:21 01:29 02:05 WBC RBC Hgb Hct MCV MCH MCHC RDW Plt Count MPV Immature Gran % (Auto) Neut % (Auto) Lymph % (Auto) [place] % (Auto) Eos % (Auto) Baso % (Auto) Lymph # (Auto) [place] # (Auto) Eos # (Auto) Baso # (Auto) Abs Immat Gran (auto) Absolute Neuts (auto) Absolute Nucleated RBC Nucleated RBC % (auto) Neutrophils % (Manual) Band Neutrophils % Lymphocytes % (Manual) Atypical Lymphs % (Man) Monocytes % (Manual) Eosinophils % (Manual) Basophils % (Manual) Metamyelocytes % Myelocytes % Abs Neuts (Manual) Lymphocytes # (Manual) Atyp Lymphs # (Manual) Monocytes # (Manual) Eosinophils # (Manual) Basophils # (Manual) Metamyelocytes # Myelocytes # Nucleated RBCs Smudge Cells Dohle Bodies Platelet Estimate Large Platelets Plt Morphology Comment RBC Morphology Polychromasia Hypochromasia Basophilic Stippling Microcytosis Macrocytosis Pappenheimer Bodies Target Cells Tear Drop Cells Ovalocytes [place] Cells Acanthocytes (Spur) Smear Tech's Comments Smear Path Review ESR PT INR APTT aPTT Heparin Protocol D-Dimer High Sensitivty O2 Saturation ABG pH at Pt Temp ABG pH (Temp Correct) ABG pCO2 at Pt Temp ABG pCO2 (Temp Corrct ABG pO2 at Pt Temp ABG pO2 (Temp Correct ABG HCO3 ABG Base Excess (Actual) VBG pH VBG pCO2 VBG pO2 VBG HCO3 VBG O2 Saturation VBG Base Excess Sodium 141 Potassium 2.7 L Chloride 101 Carbon Dioxide 23 Anion Gap 20 BUN 122 H Creatinine 2.32 H Estim Creat Clear Calc 36.4 Estimated GFR 22 POC Glucose 199 H Random Glucose 222 H Lactic Acid Lactic Acid F/U @ 2Hr Calcium 7.5 L D Phosphorus 2.9 Magnesium 1.0 L* Ferritin Total Bilirubin Direct Bilirubin AST ALT Alkaline Phosphatase Ammonia Lactate Dehydrogenase Troponin I High Sens 851.1 H* D C-Reactive Protein B-Natriuretic Peptide Total Protein Albumin Procalcitonin Urine Color Urine Appearance Urine pH Ur Specific [place] Urine Protein Urine Glucose (UA) Urine Ketones Urine Blood Urine Nitrite Ur Leukocyte Esterase Urine RBC Urine WBC Ur Squamous Epith Cells Ur Renal Epithelial Cell Urine Bacteria Urine Yeast Nasal Screen MRSA (PCR) Nasal S. aureus Screen Nasal MRSA/S.aureus Interp Stool Occult Blood Stool Leukocytes, Qual Vancomycin Trough Random Vancomycin Urine Opiates Screen Urine Fentanyl Screen Ur Barbiturates Screen Ur Phencyclidine Scrn Ur Amphetamines Screen U Benzodiazepines Scrn Urine Cocaine Screen U Marijuana (THC) Screen C. difficile Tox B Gene COVID-19 ([facility]) COVID-19 Clin Com Hepatitis A IgM Ab Hep Bs Antigen Hep Bs Antibody Hep B Core Total Ab Hepatitis C Ab (EIA) HIV 1&2 Ab/P24 Ag 4thGn Ur L.pneumophila Ag SARS-CoV-2 IgG Ab Blood Type Antibody Screen Antigen Identification Crossmatch Crossmatch (AHG) 03/19/21 03/19/21 03/19/21 04:31 05:29 05:29 WBC 20.4 H RBC 3.01 L D Hgb 8.3 L D Hct 26.2 L D MCV 87.0 MCH 27.6 MCHC 31.7 RDW 12.8 Plt Count 283 MPV 9.9 Immature Gran % (Auto) 0.7 H Neut % (Auto) 96.6 H Lymph % (Auto) 1.4 L [place] % (Auto) 1.3 L Eos % (Auto) 0.0 Baso % (Auto) 0.0 Lymph # (Auto) 0.3 L [place] # (Auto) 0.3 Eos # (Auto) 0.0 Baso # (Auto) 0.0 Abs Immat Gran (auto) 0.15 H Absolute Neuts (auto) 19.6 H Absolute Nucleated RBC 0.000 Nucleated RBC % (auto) 0.0 Neutrophils % (Manual) Band Neutrophils % Lymphocytes % (Manual) Atypical Lymphs % (Man) Monocytes % (Manual) Eosinophils % (Manual) Basophils % (Manual) Metamyelocytes % Myelocytes % Abs Neuts (Manual) Lymphocytes # (Manual) Atyp Lymphs # (Manual) Monocytes # (Manual) Eosinophils # (Manual) Basophils # (Manual) Metamyelocytes # Myelocytes # Nucleated RBCs Smudge Cells Dohle Bodies Platelet Estimate Large Platelets Plt Morphology Comment RBC Morphology Polychromasia Hypochromasia Basophilic Stippling Microcytosis Macrocytosis Pappenheimer Bodies Target Cells Tear Drop Cells Ovalocytes Abi Cells Acanthocytes (Spur) Smear Tech's Comments VERIFIED Smear Path Review ESR PT 13.1 H INR 1.2 H APTT aPTT Heparin Protocol D-Dimer High Sensitivty O2 Saturation ABG pH at Pt Temp ABG pH (Temp Correct) ABG pCO2 at Pt Temp ABG pCO2 (Temp Corrct ABG pO2 at Pt Temp ABG pO2 (Temp Correct ABG HCO3 ABG Base Excess (Actual) VBG pH VBG pCO2 VBG pO2 VBG HCO3 VBG O2 Saturation VBG Base Excess Sodium 141 Potassium 3.5 D Chloride 101 Carbon Dioxide 20 L Anion Gap 24 H BUN 116 H Creatinine 2.36 H Estim Creat Clear Calc 35.8 Estimated GFR 21 POC Glucose Random Glucose 246 H Lactic Acid Lactic Acid F/U @ 2Hr Calcium 7.4 L Phosphorus 3.9 Magnesium 1.5 L Ferritin Total Bilirubin 0.5 Direct Bilirubin AST 67 H ALT 39 H Alkaline Phosphatase 60 Ammonia Lactate Dehydrogenase Troponin I High Sens C-Reactive Protein B-Natriuretic Peptide Total Protein 5.6 L Albumin 3.0 L D Procalcitonin Urine Color Urine Appearance Urine pH Ur Specific [place] Urine Protein Urine Glucose (UA) Urine Ketones Urine Blood Urine Nitrite Ur Leukocyte Esterase Urine RBC Urine WBC Ur Squamous Epith Cells Ur Renal Epithelial Cell Urine Bacteria Urine Yeast Nasal Screen MRSA (PCR) Nasal S. aureus Screen Nasal MRSA/S.aureus Interp Stool Occult Blood Stool Leukocytes, Qual Vancomycin Trough Random Vancomycin Urine Opiates Screen Urine Fentanyl Screen Ur Barbiturates Screen Ur Phencyclidine Scrn Ur Amphetamines Screen U Benzodiazepines Scrn Urine Cocaine Screen U Marijuana (THC) Screen C. difficile Tox B Gene COVID-19 ([facility]) COVID-19 Clin Com Hepatitis A IgM Ab Hep Bs Antigen Hep Bs Antibody Hep B Core Total Ab Hepatitis C Ab (EIA) HIV 1&2 Ab/P24 Ag 4thGn Ur L.pneumophila Ag SARS-CoV-2 IgG Ab Blood Type Antibody Screen Antigen Identification Crossmatch Crossmatch (AHG) 03/19/21 03/19/21 03/19/21 05:56 09:35 09:35 WBC RBC Hgb Hct MCV MCH MCHC RDW Plt Count MPV Immature Gran % (Auto) Neut % (Auto) Lymph % (Auto) [place] % (Auto) Eos % (Auto) Baso % (Auto) Lymph # (Auto) [place] # (Auto) Eos # (Auto) Baso # (Auto) Abs Immat Gran (auto) Absolute Neuts (auto) Absolute Nucleated RBC Nucleated RBC % (auto) Neutrophils % (Manual) Band Neutrophils % Lymphocytes % (Manual) Atypical Lymphs % (Man) Monocytes % (Manual) Eosinophils % (Manual) Basophils % (Manual) Metamyelocytes % Myelocytes % Abs Neuts (Manual) Lymphocytes # (Manual) Atyp Lymphs # (Manual) Monocytes # (Manual) Eosinophils # (Manual) Basophils # (Manual) Metamyelocytes # Myelocytes # Nucleated RBCs Smudge Cells Dohle Bodies Platelet Estimate Large Platelets Plt Morphology Comment RBC Morphology Polychromasia Hypochromasia Basophilic Stippling Microcytosis Macrocytosis Pappenheimer Bodies Target Cells Tear Drop Cells Ovalocytes Abi Cells Acanthocytes (Spur) Smear Tech's Comments Smear Path Review ESR PT INR APTT aPTT Heparin Protocol 49.8 L D-Dimer High Sensitivty O2 Saturation ABG pH at Pt Temp ABG pH (Temp Correct) ABG pCO2 at Pt Temp ABG pCO2 (Temp Corrct ABG pO2 at Pt Temp ABG pO2 (Temp Correct ABG HCO3 ABG Base Excess (Actual) VBG pH 7.45 H VBG pCO2 34 VBG pO2 54 VBG HCO3 23 VBG O2 Saturation 83.0 VBG Base Excess 0.5 Sodium Potassium Chloride Carbon Dioxide Anion Gap BUN Creatinine Estim Creat Clear Calc Estimated GFR POC Glucose Random Glucose Lactic Acid Lactic Acid F/U @ 2Hr Calcium Phosphorus Magnesium Ferritin Total Bilirubin Direct Bilirubin AST ALT Alkaline Phosphatase Ammonia Lactate Dehydrogenase Troponin I High Sens 2812.1 H* D C-Reactive Protein B-Natriuretic Peptide Total Protein Albumin Procalcitonin Urine Color Urine Appearance Urine pH Ur Specific [place] Urine Protein Urine Glucose (UA) Urine Ketones Urine Blood Urine Nitrite Ur Leukocyte Esterase Urine RBC Urine WBC Ur Squamous Epith Cells Ur Renal Epithelial Cell Urine Bacteria Urine Yeast Nasal Screen MRSA (PCR) Nasal S. aureus Screen Nasal MRSA/S.aureus Interp Stool Occult Blood Stool Leukocytes, Qual Vancomycin Trough Random Vancomycin Urine Opiates Screen Urine Fentanyl Screen Ur Barbiturates Screen Ur Phencyclidine Scrn Ur Amphetamines Screen U Benzodiazepines Scrn Urine Cocaine Screen U Marijuana (THC) Screen C. difficile Tox B Gene COVID-19 ([facility]) COVID-19 Clin Com Hepatitis A IgM Ab Hep Bs Antigen Hep Bs Antibody Hep B Core Total Ab Hepatitis C Ab (EIA) HIV 1&2 Ab/P24 Ag 4thGn Ur L.pneumophila Ag SARS-CoV-2 IgG Ab Blood Type Antibody Screen Antigen Identification Crossmatch Crossmatch (AHG) 03/19/21 03/19/21 03/20/21 16:20 21:43 04:13 WBC RBC Hgb Hct MCV MCH MCHC RDW Plt Count MPV Immature Gran % (Auto) Neut % (Auto) Lymph % (Auto) [place] % (Auto) Eos % (Auto) Baso % (Auto) Lymph # (Auto) [place] # (Auto) Eos # (Auto) Baso # (Auto) Abs Immat Gran (auto) Absolute Neuts (auto) Absolute Nucleated RBC Nucleated RBC % (auto) Neutrophils % (Manual) Band Neutrophils % Lymphocytes % (Manual) Atypical Lymphs % (Man) Monocytes % (Manual) Eosinophils % (Manual) Basophils % (Manual) Metamyelocytes % Myelocytes % Abs Neuts (Manual) Lymphocytes # (Manual) Atyp Lymphs # (Manual) Monocytes # (Manual) Eosinophils # (Manual) Basophils # (Manual) Metamyelocytes # Myelocytes # Nucleated RBCs Smudge Cells Dohle Bodies Platelet Estimate Large Platelets Plt Morphology Comment RBC Morphology Polychromasia Hypochromasia Basophilic Stippling Microcytosis Macrocytosis Pappenheimer Bodies Target Cells Tear Drop Cells Ovalocytes [place]ore Cells Acanthocytes (Spur) Smear Tech's Comments Smear Path Review ESR PT INR APTT aPTT Heparin Protocol 55.0 54.7 55.3 D-Dimer High Sensitivty O2 Saturation ABG pH at Pt Temp ABG pH (Temp Correct) ABG pCO2 at Pt Temp ABG pCO2 (Temp Corrct ABG pO2 at Pt Temp ABG pO2 (Temp Correct ABG HCO3 ABG Base Excess (Actual) VBG pH VBG pCO2 VBG pO2 VBG HCO3 VBG O2 Saturation VBG Base Excess Sodium Potassium Chloride Carbon Dioxide Anion Gap BUN Creatinine Estim Creat Clear Calc Estimated GFR POC Glucose Random Glucose Lactic Acid Lactic Acid F/U @ 2Hr Calcium Phosphorus Magnesium Ferritin Total Bilirubin Direct Bilirubin AST ALT Alkaline Phosphatase Ammonia Lactate Dehydrogenase Troponin I High Sens C-Reactive Protein B-Natriuretic Peptide Total Protein Albumin Procalcitonin Urine Color Urine Appearance Urine pH Ur Specific [place] Urine Protein Urine Glucose (UA) Urine Ketones Urine Blood Urine Nitrite Ur Leukocyte Esterase Urine RBC Urine WBC Ur Squamous Epith Cells Ur Renal Epithelial Cell Urine Bacteria Urine Yeast Nasal Screen MRSA (PCR) Nasal S. aureus Screen Nasal MRSA/S.aureus Interp Stool Occult Blood Stool Leukocytes, Qual Vancomycin Trough Random Vancomycin Urine Opiates Screen Urine Fentanyl Screen Ur Barbiturates Screen Ur Phencyclidine Scrn Ur Amphetamines Screen U Benzodiazepines Scrn Urine Cocaine Screen U Marijuana (THC) Screen C. difficile Tox B Gene COVID-19 ([facility]) COVID-19 Clin Com Hepatitis A IgM Ab Hep Bs Antigen Hep Bs Antibody Hep B Core Total Ab Hepatitis C Ab (EIA) HIV 1&2 Ab/P24 Ag 4thGn Ur L.pneumophila Ag SARS-CoV-2 IgG Ab Blood Type Antibody Screen Antigen Identification Crossmatch Crossmatch (AHG) 03/20/21 03/20/21 03/20/21 05:30 05:43 05:43 WBC 14.0 H RBC 3.04 L Hgb 8.4 L Hct 26.2 L MCV 86.2 MCH 27.6 MCHC 32.1 RDW 13.0 Plt Count 271 MPV 10.0 Immature Gran % (Auto) 1.6 H Neut % (Auto) 88.8 H Lymph % (Auto) 2.9 L [place] % (Auto) 6.6 Eos % (Auto) 0.0 Baso % (Auto) 0.1 Lymph # (Auto) 0.4 L [place] # (Auto) 0.9 Eos # (Auto) 0.0 Baso # (Auto) 0.0 Abs Immat Gran (auto) 0.22 H Absolute Neuts (auto) 12.4 H Absolute Nucleated RBC 0.040 H Nucleated RBC % (auto) 0.3 H Neutrophils % (Manual) Band Neutrophils % Lymphocytes % (Manual) Atypical Lymphs % (Man) Monocytes % (Manual) Eosinophils % (Manual) Basophils % (Manual) Metamyelocytes % Myelocytes % Abs Neuts (Manual) Lymphocytes # (Manual) Atyp Lymphs # (Manual) Monocytes # (Manual) Eosinophils # (Manual) Basophils # (Manual) Metamyelocytes # Myelocytes # Nucleated RBCs Smudge Cells Dohle Bodies Platelet Estimate Large Platelets Plt Morphology Comment RBC Morphology Polychromasia Hypochromasia Basophilic Stippling Microcytosis Macrocytosis Pappenheimer Bodies Target Cells Tear Drop Cells Ovalocytes [place] Cells Acanthocytes (Spur) Smear Tech's Comments Smear Path Review ESR PT INR APTT aPTT Heparin Protocol D-Dimer High Sensitivty O2 Saturation ABG pH at Pt Temp ABG pH (Temp Correct) ABG pCO2 at Pt Temp ABG pCO2 (Temp Corrct ABG pO2 at Pt Temp ABG pO2 (Temp Correct ABG HCO3 ABG Base Excess (Actual) VBG pH 7.47 H VBG pCO2 32 VBG pO2 63 VBG HCO3 23 VBG O2 Saturation 90.0 VBG Base Excess 0.9 Sodium 146 H Potassium 2.6 L D Chloride 105 Carbon Dioxide 22 Anion Gap 21 H BUN 102 H Creatinine 2.21 H Estim Creat Clear Calc 30.1 Estimated GFR 23 POC Glucose Random Glucose 186 H Lactic Acid Lactic Acid F/U @ 2Hr Calcium 8.7 D Phosphorus 4.4 Magnesium 2.0 Ferritin Total Bilirubin 0.3 Direct Bilirubin AST 37 H D ALT 31 Alkaline Phosphatase 47 D Ammonia Lactate Dehydrogenase Troponin I High Sens C-Reactive Protein B-Natriuretic Peptide Total Protein 6.3 L Albumin 3.8 D Procalcitonin Urine Color Urine Appearance Urine pH Ur Specific [place] Urine Protein Urine Glucose (UA) Urine Ketones Urine Blood Urine Nitrite Ur Leukocyte Esterase Urine RBC Urine WBC Ur Squamous Epith Cells Ur Renal Epithelial Cell Urine Bacteria Urine Yeast Nasal Screen MRSA (PCR) Nasal S. aureus Screen Nasal MRSA/S.aureus Interp Stool Occult Blood Stool Leukocytes, Qual Vancomycin Trough Random Vancomycin Urine Opiates Screen Urine Fentanyl Screen Ur Barbiturates Screen Ur Phencyclidine Scrn Ur Amphetamines Screen U Benzodiazepines Scrn Urine Cocaine Screen U Marijuana (THC) Screen C. difficile Tox B Gene COVID-19 ([facility]) COVID-19 Clin Com Hepatitis A IgM Ab Hep Bs Antigen Hep Bs Antibody Hep B Core Total Ab Hepatitis C Ab (EIA) HIV 1&2 Ab/P24 Ag 4thGn Ur L.pneumophila Ag SARS-CoV-2 IgG Ab Blood Type Antibody Screen Antigen Identification Crossmatch Crossmatch (AHG) 03/20/21 03/20/21 03/20/21 09:34 18:02 20:52 WBC RBC Hgb Hct MCV MCH MCHC RDW Plt Count MPV Immature Gran % (Auto) Neut % (Auto) Lymph % (Auto) [place] % (Auto) Eos % (Auto) Baso % (Auto) Lymph # (Auto) [place] # (Auto) Eos # (Auto) Baso # (Auto) Abs Immat Gran (auto) Absolute Neuts (auto) Absolute Nucleated RBC Nucleated RBC % (auto) Neutrophils % (Manual) Band Neutrophils % Lymphocytes % (Manual) Atypical Lymphs % (Man) Monocytes % (Manual) Eosinophils % (Manual) Basophils % (Manual) Metamyelocytes % Myelocytes % Abs Neuts (Manual) Lymphocytes # (Manual) Atyp Lymphs # (Manual) Monocytes # (Manual) Eosinophils # (Manual) Basophils # (Manual) Metamyelocytes # Myelocytes # Nucleated RBCs Smudge Cells Dohle Bodies Platelet Estimate Large Platelets Plt Morphology Comment RBC Morphology Polychromasia Hypochromasia Basophilic Stippling Microcytosis Macrocytosis Pappenheimer Bodies Target Cells Tear Drop Cells Ovalocytes [place] Cells Acanthocytes (Spur) Smear Tech's Comments Smear Path Review ESR PT INR APTT aPTT Heparin Protocol D-Dimer High Sensitivty O2 Saturation ABG pH at Pt Temp ABG pH (Temp Correct) ABG pCO2 at Pt Temp ABG pCO2 (Temp Corrct ABG pO2 at Pt Temp ABG pO2 (Temp Correct ABG HCO3 ABG Base Excess (Actual) VBG pH VBG pCO2 VBG pO2 VBG HCO3 VBG O2 Saturation VBG Base Excess Sodium 149 H Potassium 3.7 D Chloride 109 H Carbon Dioxide 26 Anion Gap 18 BUN 95 H Creatinine 2.25 H Estim Creat Clear Calc 29.5 Estimated GFR 22 POC Glucose Random Glucose 165 H Lactic Acid Lactic Acid F/U @ 2Hr Calcium 10.1 D Phosphorus Magnesium Ferritin Total Bilirubin Direct Bilirubin AST ALT Alkaline Phosphatase Ammonia Lactate Dehydrogenase Troponin I High Sens 903.3 H* D C-Reactive Protein B-Natriuretic Peptide Total Protein Albumin Procalcitonin Urine Color Urine Appearance Urine pH Ur Specific [place] Urine Protein Urine Glucose (UA) Urine Ketones Urine Blood Urine Nitrite Ur Leukocyte Esterase Urine RBC Urine WBC Ur Squamous Epith Cells Ur Renal Epithelial Cell Urine Bacteria Urine Yeast Nasal Screen MRSA (PCR) Nasal S. aureus Screen Nasal MRSA/S.aureus Interp Stool Occult Blood Stool Leukocytes, Qual Vancomycin Trough 26.8 H* Random Vancomycin Urine Opiates Screen Urine Fentanyl Screen Ur Barbiturates Screen Ur Phencyclidine Scrn Ur Amphetamines Screen U Benzodiazepines Scrn Urine Cocaine Screen U Marijuana (THC) Screen C. difficile Tox B Gene COVID-19 ([facility]) COVID-19 Clin Com Hepatitis A IgM Ab Hep Bs Antigen Hep Bs Antibody Hep B Core Total Ab Hepatitis C Ab (EIA) HIV 1&2 Ab/P24 Ag 4thGn Ur L.pneumophila Ag SARS-CoV-2 IgG Ab Blood Type Antibody Screen Antigen Identification Crossmatch Crossmatch (AHG) 03/21/21 03/21/21 03/21/21 06:11 06:12 06:12 WBC 19.1 H RBC 3.48 L Hgb 9.7 L Hct 30.2 L MCV 86.8 MCH 27.9 MCHC 32.1 RDW 13.4 Plt Count 346 D MPV 10.0 Immature Gran % (Auto) Cancelled Neut % (Auto) Cancelled Lymph % (Auto) Cancelled [place] % (Auto) Cancelled Eos % (Auto) Cancelled Baso % (Auto) Cancelled Lymph # (Auto) Cancelled [place] # (Auto) Cancelled Eos # (Auto) Cancelled Baso # (Auto) Cancelled Abs Immat Gran (auto) Cancelled Absolute Neuts (auto) Cancelled Absolute Nucleated RBC 0.390 H Nucleated RBC % (auto) 2.0 H Neutrophils % (Manual) 89 H Band Neutrophils % 0 L Lymphocytes % (Manual) 3 L Atypical Lymphs % (Man) Monocytes % (Manual) 8 Eosinophils % (Manual) Basophils % (Manual) Metamyelocytes % Myelocytes % Abs Neuts (Manual) 17.0 H Lymphocytes # (Manual) 0.6 L Atyp Lymphs # (Manual) Monocytes # (Manual) 1.5 H Eosinophils # (Manual) Basophils # (Manual) Metamyelocytes # Myelocytes # Nucleated RBCs 2 H Smudge Cells Dohle Bodies Platelet Estimate NORMAL Large Platelets Plt Morphology Comment NOTED RBC Morphology NOTED Polychromasia 1+ (0-2) Hypochromasia Basophilic Stippling Microcytosis Macrocytosis 1+ (5-14) Pappenheimer Bodies Target Cells Tear Drop Cells 1+ (0-2) Ovalocytes [place] Cells Acanthocytes (Spur) 1+ (0-2) Smear Tech's Comments Smear Path Review SEE NOTE ESR PT INR APTT aPTT Heparin Protocol D-Dimer High Sensitivty O2 Saturation ABG pH at Pt Temp ABG pH (Temp Correct) ABG pCO2 at Pt Temp ABG pCO2 (Temp Corrct ABG pO2 at Pt Temp ABG pO2 (Temp Correct ABG HCO3 ABG Base Excess (Actual) VBG pH 7.49 H VBG pCO2 33 VBG pO2 46 VBG HCO3 25 VBG O2 Saturation 77.0 VBG Base Excess 2.6 Sodium 150 H Potassium 3.7 Chloride 108 Carbon Dioxide 24 Anion Gap 22 H BUN 102 H Creatinine 2.36 H Estim Creat Clear Calc 27.7 Estimated GFR 21 POC Glucose Random Glucose 138 H Lactic Acid Lactic Acid F/U @ 2Hr Calcium 10.0 Phosphorus 3.5 Magnesium 1.7 Ferritin Total Bilirubin Direct Bilirubin AST ALT Alkaline Phosphatase Ammonia Lactate Dehydrogenase Troponin I High Sens C-Reactive Protein B-Natriuretic Peptide Total Protein Albumin 4.0 Procalcitonin Urine Color Urine Appearance Urine pH Ur Specific [place] Urine Protein Urine Glucose (UA) Urine Ketones Urine Blood Urine Nitrite Ur Leukocyte Esterase Urine RBC Urine WBC Ur Squamous Epith Cells Ur Renal Epithelial Cell Urine Bacteria Urine Yeast Nasal Screen MRSA (PCR) Nasal S. aureus Screen Nasal MRSA/S.aureus Interp Stool Occult Blood Stool Leukocytes, Qual Vancomycin Trough Random Vancomycin Urine Opiates Screen Urine Fentanyl Screen Ur Barbiturates Screen Ur Phencyclidine Scrn Ur Amphetamines Screen U Benzodiazepines Scrn Urine Cocaine Screen U Marijuana (THC) Screen C. difficile Tox B Gene COVID-19 ([facility]) COVID-19 Clin Com Hepatitis A IgM Ab Hep Bs Antigen Hep Bs Antibody Hep B Core Total Ab Hepatitis C Ab (EIA) HIV 1&2 Ab/P24 Ag 4thGn Ur L.pneumophila Ag SARS-CoV-2 IgG Ab Blood Type Antibody Screen Antigen Identification Crossmatch Crossmatch (AHG) 03/21/21 03/21/21 03/21/21 06:12 06:12 06:12 WBC RBC Hgb Hct MCV MCH MCHC RDW Plt Count MPV Immature Gran % (Auto) Neut % (Auto) Lymph % (Auto) [place] % (Auto) Eos % (Auto) Baso % (Auto) Lymph # (Auto) [place] # (Auto) Eos # (Auto) Baso # (Auto) Abs Immat Gran (auto) Absolute Neuts (auto) Absolute Nucleated RBC Nucleated RBC % (auto) Neutrophils % (Manual) Band Neutrophils % Lymphocytes % (Manual) Atypical Lymphs % (Man) Monocytes % (Manual) Eosinophils % (Manual) Basophils % (Manual) Metamyelocytes % Myelocytes % Abs Neuts (Manual) Lymphocytes # (Manual) Atyp Lymphs # (Manual) Monocytes # (Manual) Eosinophils # (Manual) Basophils # (Manual) Metamyelocytes # Myelocytes # Nucleated RBCs Smudge Cells Dohle Bodies Platelet Estimate Large Platelets Plt Morphology Comment RBC Morphology Polychromasia Hypochromasia Basophilic Stippling Microcytosis Macrocytosis Pappenheimer Bodies Target Cells Tear Drop Cells Ovalocytes Abi Cells Acanthocytes (Spur) Smear Tech's Comments Smear Path Review ESR PT INR APTT aPTT Heparin Protocol 60.5 D-Dimer High Sensitivty O2 Saturation ABG pH at Pt Temp ABG pH (Temp Correct) ABG pCO2 at Pt Temp ABG pCO2 (Temp Corrct ABG pO2 at Pt Temp ABG pO2 (Temp Correct ABG HCO3 ABG Base Excess (Actual) VBG pH VBG pCO2 VBG pO2 VBG HCO3 VBG O2 Saturation VBG Base Excess Sodium Potassium Chloride Carbon Dioxide Anion Gap BUN Creatinine Estim Creat Clear Calc Estimated GFR POC Glucose Random Glucose Lactic Acid Lactic Acid F/U @ 2Hr Calcium Phosphorus Magnesium Ferritin Total Bilirubin Direct Bilirubin AST ALT Alkaline Phosphatase Ammonia Lactate Dehydrogenase Troponin I High Sens C-Reactive Protein B-Natriuretic Peptide Total Protein Albumin Procalcitonin Urine Color Urine Appearance Urine pH Ur Specific [place] Urine Protein Urine Glucose (UA) Urine Ketones Urine Blood Urine Nitrite Ur Leukocyte Esterase Urine RBC Urine WBC Ur Squamous Epith Cells Ur Renal Epithelial Cell Urine Bacteria Urine Yeast Nasal Screen MRSA (PCR) Nasal S. aureus Screen Nasal MRSA/S.aureus Interp Stool Occult Blood Stool Leukocytes, Qual Vancomycin Trough Random Vancomycin 22.6 H Urine Opiates Screen Urine Fentanyl Screen Ur Barbiturates Screen Ur Phencyclidine Scrn Ur Amphetamines Screen U Benzodiazepines Scrn Urine Cocaine Screen U Marijuana (THC) Screen C. difficile Tox B Gene COVID-19 ([facility]) COVID-19 Clin Com Hepatitis A IgM Ab Hep Bs Antigen Hep Bs Antibody Hep B Core Total Ab Hepatitis C Ab (EIA) HIV 1&2 Ab/P24 Ag 4thGn Ur L.pneumophila Ag SARS-CoV-2 IgG Ab Positive Blood Type Antibody Screen Antigen Identification Crossmatch Crossmatch (AHG) 03/21/21 03/21/21 03/22/21 15:42 22:01 05:40 WBC RBC Hgb Hct MCV MCH MCHC RDW Plt Count MPV Immature Gran % (Auto) Neut % (Auto) Lymph % (Auto) [place] % (Auto) Eos % (Auto) Baso % (Auto) Lymph # (Auto) [place] # (Auto) Eos # (Auto) Baso # (Auto) Abs Immat Gran (auto) Absolute Neuts (auto) Absolute Nucleated RBC Nucleated RBC % (auto) Neutrophils % (Manual) Band Neutrophils % Lymphocytes % (Manual) Atypical Lymphs % (Man) Monocytes % (Manual) Eosinophils % (Manual) Basophils % (Manual) Metamyelocytes % Myelocytes % Abs Neuts (Manual) Lymphocytes # (Manual) Atyp Lymphs # (Manual) Monocytes # (Manual) Eosinophils # (Manual) Basophils # (Manual) Metamyelocytes # Myelocytes # Nucleated RBCs Smudge Cells Dohle Bodies Platelet Estimate Large Platelets Plt Morphology Comment RBC Morphology Polychromasia Hypochromasia Basophilic Stippling Microcytosis Macrocytosis Pappenheimer Bodies Target Cells Tear Drop Cells Ovalocytes [place] Cells Acanthocytes (Spur) Smear Tech's Comments Smear Path Review ESR PT INR APTT aPTT Heparin Protocol 40.0 L D D-Dimer High Sensitivty O2 Saturation 94.0 ABG pH at Pt Temp 7.56 H ABG pH (Temp Correct) ABG pCO2 at Pt Temp 31 L ABG pCO2 (Temp Corrct ABG pO2 at Pt Temp 76 L ABG pO2 (Temp Correct ABG HCO3 28 H ABG Base Excess (Actual) 6.5 VBG pH VBG pCO2 VBG pO2 VBG HCO3 VBG O2 Saturation VBG Base Excess Sodium 154 H Potassium 4.1 Chloride 107 Carbon Dioxide 22 Anion Gap 29 H BUN 107 H Creatinine 2.48 H Estim Creat Clear Calc 26.4 Estimated GFR 20 POC Glucose Random Glucose 117 H Lactic Acid Lactic Acid F/U @ 2Hr Calcium 11.6 H D Phosphorus Magnesium 1.9 Ferritin Total Bilirubin Direct Bilirubin AST ALT Alkaline Phosphatase Ammonia Lactate Dehydrogenase Troponin I High Sens C-Reactive Protein B-Natriuretic Peptide Total Protein Albumin Procalcitonin Urine Color Urine Appearance Urine pH Ur Specific [place] Urine Protein Urine Glucose (UA) Urine Ketones Urine Blood Urine Nitrite Ur Leukocyte Esterase Urine RBC Urine WBC Ur Squamous Epith Cells Ur Renal Epithelial Cell Urine Bacteria Urine Yeast Nasal Screen MRSA (PCR) Nasal S. aureus Screen Nasal MRSA/S.aureus Interp Stool Occult Blood Stool Leukocytes, Qual Vancomycin Trough Random Vancomycin Urine Opiates Screen Urine Fentanyl Screen Ur Barbiturates Screen Ur Phencyclidine Scrn Ur Amphetamines Screen U Benzodiazepines Scrn Urine Cocaine Screen U Marijuana (THC) Screen C. difficile Tox B Gene COVID-19 ([facility]) COVID-19 Clin Com Hepatitis A IgM Ab Hep Bs Antigen Hep Bs Antibody Hep B Core Total Ab Hepatitis C Ab (EIA) HIV 1&2 Ab/P24 Ag 4thGn Ur L.pneumophila Ag SARS-CoV-2 IgG Ab Blood Type Antibody Screen Antigen Identification Crossmatch Crossmatch (AHG) 03/22/21 03/22/21 03/22/21 05:40 05:40 05:46 WBC 27.1 H RBC 5.07 D Hgb 13.8 D Hct 42.9 D MCV 84.6 MCH 27.2 MCHC 32.2 RDW 13.7 Plt Count 498 H D MPV 9.8 Immature Gran % (Auto) Cancelled Neut % (Auto) Cancelled Lymph % (Auto) Cancelled [place] % (Auto) Cancelled Eos % (Auto) Cancelled Baso % (Auto) Cancelled Lymph # (Auto) Cancelled [place] # (Auto) Cancelled Eos # (Auto) Cancelled Baso # (Auto) Cancelled Abs Immat Gran (auto) Cancelled Absolute Neuts (auto) Cancelled Absolute Nucleated RBC 1.440 H Nucleated RBC % (auto) 5.3 H Neutrophils % (Manual) 79 H Band Neutrophils % 2 L Lymphocytes % (Manual) 12 L Atypical Lymphs % (Man) Monocytes % (Manual) 5 Eosinophils % (Manual) 1 Basophils % (Manual) Metamyelocytes % 1 Myelocytes % Abs Neuts (Manual) 22.0 H Lymphocytes # (Manual) 3.3 Atyp Lymphs # (Manual) Monocytes # (Manual) 1.4 H Eosinophils # (Manual) 0.3 Basophils # (Manual) Metamyelocytes # 0.3 Myelocytes # Nucleated RBCs 6 H Smudge Cells Dohle Bodies Platelet Estimate INCREASED Large Platelets Plt Morphology Comment NORMAL RBC Morphology NOTED Polychromasia Hypochromasia Basophilic Stippling Microcytosis Macrocytosis 1+ (5-14) Pappenheimer Bodies Target Cells Tear Drop Cells Ovalocytes [place] Cells Acanthocytes (Spur) Smear Tech's Comments Smear Path Review ESR PT INR APTT aPTT Heparin Protocol D-Dimer High Sensitivty O2 Saturation ABG pH at Pt Temp ABG pH (Temp Correct) ABG pCO2 at Pt Temp ABG pCO2 (Temp Corrct ABG pO2 at Pt Temp ABG pO2 (Temp Correct ABG HCO3 ABG Base Excess (Actual) VBG pH 7.56 H VBG pCO2 28 VBG pO2 62 VBG HCO3 25 VBG O2 Saturation 89.0 VBG Base Excess 4.8 Sodium 154 H Potassium 3.5 Chloride 103 Carbon Dioxide 26 Anion Gap 29 H BUN 116 H Creatinine 2.64 H Estim Creat Clear Calc 20.0 Estimated GFR 19 POC Glucose Random Glucose 143 H Lactic Acid Lactic Acid F/U @ 2Hr Calcium 12.0 H Phosphorus 4.1 Magnesium 2.8 H Ferritin Total Bilirubin Direct Bilirubin AST ALT Alkaline Phosphatase Ammonia Lactate Dehydrogenase Troponin I High Sens C-Reactive Protein B-Natriuretic Peptide Total Protein Albumin 5.1 H D Procalcitonin Urine Color Urine Appearance Urine pH Ur Specific [place] Urine Protein Urine Glucose (UA) Urine Ketones Urine Blood Urine Nitrite Ur Leukocyte Esterase Urine RBC Urine WBC Ur Squamous Epith Cells Ur Renal Epithelial Cell Urine Bacteria Urine Yeast Nasal Screen MRSA (PCR) Nasal S. aureus Screen Nasal MRSA/S.aureus Interp Stool Occult Blood Stool Leukocytes, Qual Vancomycin Trough Random Vancomycin Urine Opiates Screen Urine Fentanyl Screen Ur Barbiturates Screen Ur Phencyclidine Scrn Ur Amphetamines Screen U Benzodiazepines Scrn Urine Cocaine Screen U Marijuana (THC) Screen C. difficile Tox B Gene COVID-19 ([facility]) COVID-19 Clin Com Hepatitis A IgM Ab Hep Bs Antigen Hep Bs Antibody Hep B Core Total Ab Hepatitis C Ab (EIA) HIV 1&2 Ab/P24 Ag 4thGn Ur L.pneumophila Ag SARS-CoV-2 IgG Ab Blood Type Antibody Screen Antigen Identification Crossmatch Crossmatch (AHG) 03/22/21 03/22/21 03/23/21 14:15 19:33 05:37 WBC RBC Hgb Hct MCV MCH MCHC RDW Plt Count MPV Immature Gran % (Auto) Neut % (Auto) Lymph % (Auto) [place] % (Auto) Eos % (Auto) Baso % (Auto) Lymph # (Auto) [place] # (Auto) Eos # (Auto) Baso # (Auto) Abs Immat Gran (auto) Absolute Neuts (auto) Absolute Nucleated RBC Nucleated RBC % (auto) Neutrophils % (Manual) Band Neutrophils % Lymphocytes % (Manual) Atypical Lymphs % (Man) Monocytes % (Manual) Eosinophils % (Manual) Basophils % (Manual) Metamyelocytes % Myelocytes % Abs Neuts (Manual) Lymphocytes # (Manual) Atyp Lymphs # (Manual) Monocytes # (Manual) Eosinophils # (Manual) Basophils # (Manual) Metamyelocytes # Myelocytes # Nucleated RBCs Smudge Cells Dohle Bodies Platelet Estimate Large Platelets Plt Morphology Comment RBC Morphology Polychromasia Hypochromasia Basophilic Stippling Microcytosis Macrocytosis Pappenheimer Bodies Target Cells Tear Drop Cells Ovalocytes [place] Cells Acanthocytes (Spur) Smear Tech's Comments Smear Path Review ESR PT INR APTT aPTT Heparin Protocol 57.5 D 53.7 D-Dimer High Sensitivty O2 Saturation ABG pH at Pt Temp ABG pH (Temp Correct) ABG pCO2 at Pt Temp ABG pCO2 (Temp Corrct ABG pO2 at Pt Temp ABG pO2 (Temp Correct ABG HCO3 ABG Base Excess (Actual) VBG pH 7.55 H VBG pCO2 23 VBG pO2 54 VBG HCO3 20 L VBG O2 Saturation 83.0 VBG Base Excess 0.1 Sodium Potassium Chloride Carbon Dioxide Anion Gap BUN Creatinine Estim Creat Clear Calc Estimated GFR POC Glucose Random Glucose Lactic Acid Lactic Acid F/U @ 2Hr Calcium Phosphorus Magnesium Ferritin Total Bilirubin Direct Bilirubin AST ALT Alkaline Phosphatase Ammonia Lactate Dehydrogenase Troponin I High Sens C-Reactive Protein B-Natriuretic Peptide Total Protein Albumin Procalcitonin Urine Color Urine Appearance Urine pH Ur Specific [place] Urine Protein Urine Glucose (UA) Urine Ketones Urine Blood Urine Nitrite Ur Leukocyte Esterase Urine RBC Urine WBC Ur Squamous Epith Cells Ur Renal Epithelial Cell Urine Bacteria Urine Yeast Nasal Screen MRSA (PCR) Nasal S. aureus Screen Nasal MRSA/S.aureus Interp Stool Occult Blood Stool Leukocytes, Qual Vancomycin Trough Random Vancomycin Urine Opiates Screen Urine Fentanyl Screen Ur Barbiturates Screen Ur Phencyclidine Scrn Ur Amphetamines Screen U Benzodiazepines Scrn Urine Cocaine Screen U Marijuana (THC) Screen C. difficile Tox B Gene COVID-19 ([facility]) COVID-19 Clin Com Hepatitis A IgM Ab Hep Bs Antigen Hep Bs Antibody Hep B Core Total Ab Hepatitis C Ab (EIA) HIV 1&2 Ab/P24 Ag 4thGn Ur L.pneumophila Ag SARS-CoV-2 IgG Ab Blood Type Antibody Screen Antigen Identification Crossmatch Crossmatch (AHG) 03/23/21 03/23/21 03/23/21 05:54 05:58 06:38 WBC 26.6 H RBC 5.15 Hgb 14.2 Hct 45.2 MCV 87.8 MCH 27.6 MCHC 31.4 RDW 15.4 Plt Count 480 H MPV 10.1 Immature Gran % (Auto) Cancelled Neut % (Auto) Cancelled Lymph % (Auto) Cancelled [place] % (Auto) Cancelled Eos % (Auto) Cancelled Baso % (Auto) Cancelled Lymph # (Auto) Cancelled [place] # (Auto) Cancelled Eos # (Auto) Cancelled Baso # (Auto) Cancelled Abs Immat Gran (auto) Cancelled Absolute Neuts (auto) Cancelled Absolute Nucleated RBC 2.050 H Nucleated RBC % (auto) 7.7 H Neutrophils % (Manual) 84 H Band Neutrophils % 5 Lymphocytes % (Manual) 4 L Atypical Lymphs % (Man) Monocytes % (Manual) 6 Eosinophils % (Manual) Basophils % (Manual) Metamyelocytes % 1 Myelocytes % Abs Neuts (Manual) 23.7 H Lymphocytes # (Manual) 1.1 L Atyp Lymphs # (Manual) Monocytes # (Manual) 1.6 H Eosinophils # (Manual) Basophils # (Manual) Metamyelocytes # 0.3 Myelocytes # Nucleated RBCs 8 H Smudge Cells Dohle Bodies Platelet Estimate SLIGHTLY INCREASED Large Platelets Plt Morphology Comment NORMAL RBC Morphology NOTED Polychromasia 1+ (0-2) Hypochromasia Basophilic Stippling Microcytosis Macrocytosis 1+ (5-14) Pappenheimer Bodies Target Cells Tear Drop Cells Ovalocytes [place] Cells Acanthocytes (Spur) Smear Tech's Comments Smear Path Review ESR PT INR APTT aPTT Heparin Protocol 58.3 D-Dimer High Sensitivty O2 Saturation ABG pH at Pt Temp ABG pH (Temp Correct) ABG pCO2 at Pt Temp ABG pCO2 (Temp Corrct ABG pO2 at Pt Temp ABG pO2 (Temp Correct ABG HCO3 ABG Base Excess (Actual) VBG pH VBG pCO2 VBG pO2 VBG HCO3 VBG O2 Saturation VBG Base Excess Sodium Potassium Chloride Carbon Dioxide Anion Gap BUN Creatinine Estim Creat Clear Calc Estimated GFR POC Glucose 199 H Random Glucose Lactic Acid Lactic Acid F/U @ 2Hr Calcium Phosphorus Magnesium Ferritin Total Bilirubin Direct Bilirubin AST ALT Alkaline Phosphatase Ammonia Lactate Dehydrogenase Troponin I High Sens C-Reactive Protein B-Natriuretic Peptide Total Protein Albumin Procalcitonin Urine Color Urine Appearance Urine pH Ur Specific [place] Urine Protein Urine Glucose (UA) Urine Ketones Urine Blood Urine Nitrite Ur Leukocyte Esterase Urine RBC Urine WBC Ur Squamous Epith Cells Ur Renal Epithelial Cell Urine Bacteria Urine Yeast Nasal Screen MRSA (PCR) Nasal S. aureus Screen Nasal MRSA/S.aureus Interp Stool Occult Blood Stool Leukocytes, Qual Vancomycin Trough Random Vancomycin Urine Opiates Screen Urine Fentanyl Screen Ur Barbiturates Screen Ur Phencyclidine Scrn Ur Amphetamines Screen U Benzodiazepines Scrn Urine Cocaine Screen U Marijuana (THC) Screen C. difficile Tox B Gene COVID-19 ([facility]) COVID-19 Clin Com Hepatitis A IgM Ab Hep Bs Antigen Hep Bs Antibody Hep B Core Total Ab Hepatitis C Ab (EIA) HIV 1&2 Ab/P24 Ag 4thGn Ur L.pneumophila Ag SARS-CoV-2 IgG Ab Blood Type Antibody Screen Antigen Identification Crossmatch Crossmatch (AHG) 03/23/21 03/23/21 03/24/21 07:41 13:44 12:27 WBC RBC Hgb Hct MCV MCH MCHC RDW Plt Count MPV Immature Gran % (Auto) Neut % (Auto) Lymph % (Auto) [place] % (Auto) Eos % (Auto) Baso % (Auto) Lymph # (Auto) [place] # (Auto) Eos # (Auto) Baso # (Auto) Abs Immat Gran (auto) Absolute Neuts (auto) Absolute Nucleated RBC Nucleated RBC % (auto) Neutrophils % (Manual) Band Neutrophils % Lymphocytes % (Manual) Atypical Lymphs % (Man) Monocytes % (Manual) Eosinophils % (Manual) Basophils % (Manual) Metamyelocytes % Myelocytes % Abs Neuts (Manual) Lymphocytes # (Manual) Atyp Lymphs # (Manual) Monocytes # (Manual) Eosinophils # (Manual) Basophils # (Manual) Metamyelocytes # Myelocytes # Nucleated RBCs Smudge Cells Dohle Bodies Platelet Estimate Large Platelets Plt Morphology Comment RBC Morphology Polychromasia Hypochromasia Basophilic Stippling Microcytosis Macrocytosis Pappenheimer Bodies Target Cells Tear Drop Cells Ovalocytes [place]ore Cells Acanthocytes (Spur) Smear Tech's Comments Smear Path Review ESR PT INR APTT aPTT Heparin Protocol D-Dimer High Sensitivty O2 Saturation 95.0 ABG pH at Pt Temp 7.59 H ABG pH (Temp Correct) ABG pCO2 at Pt Temp 20 L* ABG pCO2 (Temp Corrct ABG pO2 at Pt Temp 79 L ABG pO2 (Temp Correct ABG HCO3 19 L ABG Base Excess (Actual) 0.6 VBG pH 7.36 VBG pCO2 22 VBG pO2 49 VBG HCO3 13 L VBG O2 Saturation 76.0 VBG Base Excess -9.8 Sodium 159 H Potassium 4.2 Chloride 109 H Carbon Dioxide 20 L Anion Gap 34 H BUN 153 H D Creatinine 4.83 H* Estim Creat Clear Calc 12.9 Estimated GFR 9 POC Glucose Random Glucose 184 H Lactic Acid Lactic Acid F/U @ 2Hr Calcium 10.9 H D Phosphorus 5.1 H Magnesium 2.8 H Ferritin Total Bilirubin 1.2 H Direct Bilirubin AST 31 ALT 37 H Alkaline Phosphatase 72 D Ammonia Lactate Dehydrogenase Troponin I High Sens C-Reactive Protein B-Natriuretic Peptide Total Protein 8.3 H D Albumin 4.7 Procalcitonin Urine Color Urine Appearance Urine pH Ur Specific [place] Urine Protein Urine Glucose (UA) Urine Ketones Urine Blood Urine Nitrite Ur Leukocyte Esterase Urine RBC Urine WBC Ur Squamous Epith Cells Ur Renal Epithelial Cell Urine Bacteria Urine Yeast Nasal Screen MRSA (PCR) Nasal S. aureus Screen Nasal MRSA/S.aureus Interp Stool Occult Blood Stool Leukocytes, Qual Vancomycin Trough Random Vancomycin Urine Opiates Screen Urine Fentanyl Screen Ur Barbiturates Screen Ur Phencyclidine Scrn Ur Amphetamines Screen U Benzodiazepines Scrn Urine Cocaine Screen U Marijuana (THC) Screen C. difficile Tox B Gene COVID-19 ([facility]) COVID-19 Clin Com Hepatitis A IgM Ab Hep Bs Antigen Hep Bs Antibody Hep B Core Total Ab Hepatitis C Ab (EIA) HIV 1&2 Ab/P24 Ag 4thGn Ur L.pneumophila Ag SARS-CoV-2 IgG Ab Blood Type Antibody Screen Antigen Identification Crossmatch Crossmatch (AHG) 02/14/22 02/14/22 02/14/22 12:29 12:29 12:29 WBC 45.2 H* RBC 4.85 Hgb 13.7 Hct 43.4 MCV 89.5 MCH 28.2 MCHC 31.6 RDW 16.2 H Plt Count 365 MPV 10.6 Immature Gran % (Auto) Cancelled Neut % (Auto) Cancelled Lymph % (Auto) Cancelled [place] % (Auto) Cancelled Eos % (Auto) Cancelled Baso % (Auto) Cancelled Lymph # (Auto) Cancelled [place] # (Auto) Cancelled Eos # (Auto) Cancelled Baso # (Auto) Cancelled Abs Immat Gran (auto) Cancelled Absolute Neuts (auto) Cancelled Absolute Nucleated RBC 3.970 H Nucleated RBC % (auto) 8.8 H Neutrophils % (Manual) 78 H Band Neutrophils % 13 H Lymphocytes % (Manual) 5 L Atypical Lymphs % (Man) Monocytes % (Manual) 1 L Eosinophils % (Manual) Basophils % (Manual) Metamyelocytes % 3 Myelocytes % Abs Neuts (Manual) 41.1 H Lymphocytes # (Manual) 2.3 Atyp Lymphs # (Manual) Monocytes # (Manual) 0.5 Eosinophils # (Manual) Basophils # (Manual) Metamyelocytes # 1.4 Myelocytes # Nucleated RBCs 6 H Smudge Cells Dohle Bodies Platelet Estimate NORMAL Large Platelets Plt Morphology Comment NORMAL RBC Morphology NOTED Polychromasia 1+ (0-2) Hypochromasia Basophilic Stippling Microcytosis Macrocytosis 1+ (5-14) Pappenheimer Bodies Target Cells Tear Drop Cells Ovalocytes Abi Cells Acanthocytes (Spur) Smear Tech's Comments Smear Path Review ESR PT INR APTT aPTT Heparin Protocol 34.9 L D-Dimer High Sensitivty O2 Saturation ABG pH at Pt Temp ABG pH (Temp Correct) ABG pCO2 at Pt Temp ABG pCO2 (Temp Corrct ABG pO2 at Pt Temp ABG pO2 (Temp Correct ABG HCO3 ABG Base Excess (Actual) VBG pH VBG pCO2 VBG pO2 VBG HCO3 VBG O2 Saturation VBG Base Excess Sodium 153 H Potassium 4.9 Chloride 110 H Carbon Dioxide 14 L Anion Gap 34 H BUN 188 H D Creatinine 8.14 H* Estim Creat Clear Calc 7.7 Estimated GFR 5 POC Glucose Random Glucose 117 H Lactic Acid Lactic Acid F/U @ 2Hr Calcium 9.3 D Phosphorus 8.1 H Magnesium 2.7 H Ferritin Total Bilirubin 1.0 Direct Bilirubin AST 5056 H ALT 4008 H Alkaline Phosphatase 60 Ammonia Lactate Dehydrogenase Troponin I High Sens C-Reactive Protein B-Natriuretic Peptide Total Protein 7.1 Albumin 3.6 D Procalcitonin Urine Color Urine Appearance Urine pH Ur Specific [place] Urine Protein Urine Glucose (UA) Urine Ketones Urine Blood Urine Nitrite Ur Leukocyte Esterase Urine RBC Urine WBC Ur Squamous Epith Cells Ur Renal Epithelial Cell Urine Bacteria Urine Yeast Nasal Screen MRSA (PCR) Nasal S. aureus Screen Nasal MRSA/S.aureus Interp Stool Occult Blood Stool Leukocytes, Qual Vancomycin Trough Random Vancomycin Urine Opiates Screen Urine Fentanyl Screen Ur Barbiturates Screen Ur Phencyclidine Scrn Ur Amphetamines Screen U Benzodiazepines Scrn Urine Cocaine Screen U Marijuana (THC) Screen C. difficile Tox B Gene COVID-19 ([facility]) COVID-19 Clin Com Hepatitis A IgM Ab Hep Bs Antigen Hep Bs Antibody Hep B Core Total Ab Hepatitis C Ab (EIA) HIV 1&2 Ab/P24 Ag 4thGn Ur L.pneumophila Ag SARS-CoV-2 IgG Ab Blood Type Antibody Screen Antigen Identification Crossmatch Crossmatch (AHG) 03/24/21 03/24/21 03/24/21 16:49 16:50 19:32 WBC RBC Hgb Hct MCV MCH MCHC RDW Plt Count MPV Immature Gran % (Auto) Neut % (Auto) Lymph % (Auto) [place] % (Auto) Eos % (Auto) Baso % (Auto) Lymph # (Auto) [place] # (Auto) Eos # (Auto) Baso # (Auto) Abs Immat Gran (auto) Absolute Neuts (auto) Absolute Nucleated RBC Nucleated RBC % (auto) Neutrophils % (Manual) Band Neutrophils % Lymphocytes % (Manual) Atypical Lymphs % (Man) Monocytes % (Manual) Eosinophils % (Manual) Basophils % (Manual) Metamyelocytes % Myelocytes % Abs Neuts (Manual) Lymphocytes # (Manual) Atyp Lymphs # (Manual) Monocytes # (Manual) Eosinophils # (Manual) Basophils # (Manual) Metamyelocytes # Myelocytes # Nucleated RBCs Smudge Cells Dohle Bodies Platelet Estimate Large Platelets Plt Morphology Comment RBC Morphology Polychromasia Hypochromasia Basophilic Stippling Microcytosis Macrocytosis Pappenheimer Bodies Target Cells Tear Drop Cells Ovalocytes Abi Cells Acanthocytes (Spur) Smear Tech's Comments Smear Path Review ESR PT INR APTT aPTT Heparin Protocol D-Dimer High Sensitivty O2 Saturation ABG pH at Pt Temp ABG pH (Temp Correct) ABG pCO2 at Pt Temp ABG pCO2 (Temp Corrct ABG pO2 at Pt Temp ABG pO2 (Temp Correct ABG HCO3 ABG Base Excess (Actual) VBG pH VBG pCO2 VBG pO2 VBG HCO3 VBG O2 Saturation VBG Base Excess Sodium Potassium Chloride Carbon Dioxide Anion Gap BUN Creatinine Estim Creat Clear Calc Estimated GFR POC Glucose Random Glucose Lactic Acid 2.5 H* Lactic Acid F/U @ 2Hr 2.3 H* Calcium Phosphorus Magnesium Ferritin Total Bilirubin Direct Bilirubin AST ALT Alkaline Phosphatase Ammonia Lactate Dehydrogenase Troponin I High Sens C-Reactive Protein B-Natriuretic Peptide Total Protein Albumin Procalcitonin Urine Color YELLOW Urine Appearance HAZY Urine pH 5.0 Ur Specific [place] >= 1.030 H Urine Protein 2+ H Urine Glucose (UA) NEG Urine Ketones 15 Urine Blood NEG Urine Nitrite NEG Ur Leukocyte Esterase NEG Urine RBC 0 Urine WBC 1-4 Ur Squamous Epith Cells NONE Ur Renal Epithelial Cell 1+ Urine Bacteria TRACE Urine Yeast 4+ Nasal Screen MRSA (PCR) Nasal S. aureus Screen Nasal MRSA/S.aureus Interp Stool Occult Blood Stool Leukocytes, Qual Vancomycin Trough Random Vancomycin Urine Opiates Screen Urine Fentanyl Screen Ur Barbiturates Screen Ur Phencyclidine Scrn Ur Amphetamines Screen U Benzodiazepines Scrn Urine Cocaine Screen U Marijuana (THC) Screen C. difficile Tox B Gene COVID-19 ([facility]) COVID-19 Clin Com Hepatitis A IgM Ab Hep Bs Antigen Hep Bs Antibody Hep B Core Total Ab Hepatitis C Ab (EIA) HIV 1&2 Ab/P24 Ag 4thGn Ur L.pneumophila Ag SARS-CoV-2 IgG Ab Blood Type Antibody Screen Antigen Identification Crossmatch Crossmatch (AHG) 03/25/21 03/25/21 03/25/21 05:38 05:38 05:38 WBC 49.4 H* RBC 3.90 L Hgb 11.4 L Hct 35.2 L MCV 90.3 MCH 29.2 MCHC 32.4 RDW 15.6 Plt Count 266 D MPV 11.2 Immature Gran % (Auto) Cancelled Neut % (Auto) Cancelled Lymph % (Auto) Cancelled [place] % (Auto) Cancelled Eos % (Auto) Cancelled Baso % (Auto) Cancelled Lymph # (Auto) Cancelled [place] # (Auto) Cancelled Eos # (Auto) Cancelled Baso # (Auto) Cancelled Abs Immat Gran (auto) Cancelled Absolute Neuts (auto) Cancelled Absolute Nucleated RBC 1.960 H Nucleated RBC % (auto) 4.0 H Neutrophils % (Manual) 84 H Band Neutrophils % 4 Lymphocytes % (Manual) 4 L Atypical Lymphs % (Man) Monocytes % (Manual) 2 Eosinophils % (Manual) Basophils % (Manual) Metamyelocytes % 5 Myelocytes % 1 Abs Neuts (Manual) 43.5 H Lymphocytes # (Manual) 2.0 Atyp Lymphs # (Manual) Monocytes # (Manual) 1.0 Eosinophils # (Manual) Basophils # (Manual) Metamyelocytes # 2.5 Myelocytes # 0.5 Nucleated RBCs 2 H Smudge Cells Dohle Bodies Platelet Estimate NORMAL Large Platelets PRESENT Plt Morphology Comment NOTED RBC Morphology NOTED Polychromasia Hypochromasia Basophilic Stippling Microcytosis Macrocytosis 1+ (5-14) Pappenheimer Bodies PRESENT Target Cells 1+ (5-14) Tear Drop Cells 1+ (0-2) Ovalocytes 1+ (5-14) Abi Cells Acanthocytes (Spur) Smear Tech's Comments Smear Path Review ESR PT INR APTT aPTT Heparin Protocol D-Dimer High Sensitivty O2 Saturation ABG pH at Pt Temp ABG pH (Temp Correct) ABG pCO2 at Pt Temp ABG pCO2 (Temp Corrct ABG pO2 at Pt Temp ABG pO2 (Temp Correct ABG HCO3 ABG Base Excess (Actual) VBG pH VBG pCO2 VBG pO2 VBG HCO3 VBG O2 Saturation VBG Base Excess Sodium 147 H Potassium 4.9 Chloride 110 H Carbon Dioxide 12 L Anion Gap 30 H BUN 186 H Creatinine 8.94 H* Estim Creat Clear Calc 7.1 Estimated GFR 5 POC Glucose Random Glucose 109 Lactic Acid 1.4 Lactic Acid F/U @ 2Hr Calcium 8.0 L D Phosphorus 8.3 H Magnesium 2.2 Ferritin > 89299 H Total Bilirubin 1.3 H Direct Bilirubin AST 3405 H ALT 3746 H Alkaline Phosphatase 56 Ammonia Lactate Dehydrogenase 8138 H Troponin I High Sens C-Reactive Protein 6.00 H B-Natriuretic Peptide Total Protein 5.9 L Albumin 2.8 L D Procalcitonin Urine Color Urine Appearance Urine pH Ur Specific [place] Urine Protein Urine Glucose (UA) Urine Ketones Urine Blood Urine Nitrite Ur Leukocyte Esterase Urine RBC Urine WBC Ur Squamous Epith Cells Ur Renal Epithelial Cell Urine Bacteria Urine Yeast Nasal Screen MRSA (PCR) Nasal S. aureus Screen Nasal MRSA/S.aureus Interp Stool Occult Blood Stool Leukocytes, Qual Vancomycin Trough Random Vancomycin Urine Opiates Screen Urine Fentanyl Screen Ur Barbiturates Screen Ur Phencyclidine Scrn Ur Amphetamines Screen U Benzodiazepines Scrn Urine Cocaine Screen U Marijuana (THC) Screen C. difficile Tox B Gene COVID-19 ([facility]) COVID-19 Clin Com Hepatitis A IgM Ab Hep Bs Antigen Hep Bs Antibody Hep B Core Total Ab Hepatitis C Ab (EIA) HIV 1&2 Ab/P24 Ag 4thGn Ur L.pneumophila Ag SARS-CoV-2 IgG Ab Blood Type Antibody Screen Antigen Identification Crossmatch Crossmatch (AHG) 03/25/21 03/25/21 03/25/21 05:38 05:38 05:39 WBC RBC Hgb Hct MCV MCH MCHC RDW Plt Count MPV Immature Gran % (Auto) Neut % (Auto) Lymph % (Auto) [place] % (Auto) Eos % (Auto) Baso % (Auto) Lymph # (Auto) [place] # (Auto) Eos # (Auto) Baso # (Auto) Abs Immat Gran (auto) Absolute Neuts (auto) Absolute Nucleated RBC Nucleated RBC % (auto) Neutrophils % (Manual) Band Neutrophils % Lymphocytes % (Manual) Atypical Lymphs % (Man) Monocytes % (Manual) Eosinophils % (Manual) Basophils % (Manual) Metamyelocytes % Myelocytes % Abs Neuts (Manual) Lymphocytes # (Manual) Atyp Lymphs # (Manual) Monocytes # (Manual) Eosinophils # (Manual) Basophils # (Manual) Metamyelocytes # Myelocytes # Nucleated RBCs Smudge Cells Dohle Bodies Platelet Estimate Large Platelets Plt Morphology Comment RBC Morphology Polychromasia Hypochromasia Basophilic Stippling Microcytosis Macrocytosis Pappenheimer Bodies Target Cells Tear Drop Cells Ovalocytes [place] Cells Acanthocytes (Spur) Smear Tech's Comments Smear Path Review ESR PT INR APTT aPTT Heparin Protocol D-Dimer High Sensitivty O2 Saturation ABG pH at Pt Temp ABG pH (Temp Correct) ABG pCO2 at Pt Temp ABG pCO2 (Temp Corrct ABG pO2 at Pt Temp ABG pO2 (Temp Correct ABG HCO3 ABG Base Excess (Actual) VBG pH 7.29 L VBG pCO2 23 VBG pO2 53 VBG HCO3 11 L VBG O2 Saturation 80.0 VBG Base Excess -12.7 Sodium Potassium Chloride Carbon Dioxide Anion Gap BUN Creatinine Estim Creat Clear Calc Estimated GFR POC Glucose Random Glucose Lactic Acid Lactic Acid F/U @ 2Hr Calcium Phosphorus Magnesium Ferritin Total Bilirubin Direct Bilirubin AST ALT Alkaline Phosphatase Ammonia Lactate Dehydrogenase Troponin I High Sens C-Reactive Protein B-Natriuretic Peptide 1024 H Total Protein Albumin Procalcitonin 10.41 Urine Color Urine Appearance Urine pH Ur Specific [place] Urine Protein Urine Glucose (UA) Urine Ketones Urine Blood Urine Nitrite Ur Leukocyte Esterase Urine RBC Urine WBC Ur Squamous Epith Cells Ur Renal Epithelial Cell Urine Bacteria Urine Yeast Nasal Screen MRSA (PCR) Nasal S. aureus Screen Nasal MRSA/S.aureus Interp Stool Occult Blood Stool Leukocytes, Qual Vancomycin Trough Random Vancomycin Urine Opiates Screen Urine Fentanyl Screen Ur Barbiturates Screen Ur Phencyclidine Scrn Ur Amphetamines Screen U Benzodiazepines Scrn Urine Cocaine Screen U Marijuana (THC) Screen C. difficile Tox B Gene COVID-19 ([facility]) COVID-19 Clin Com Hepatitis A IgM Ab Hep Bs Antigen Hep Bs Antibody Hep B Core Total Ab Hepatitis C Ab (EIA) HIV 1&2 Ab/P24 Ag 4thGn Ur L.pneumophila Ag SARS-CoV-2 IgG Ab Blood Type Antibody Screen Antigen Identification Crossmatch Crossmatch (AHG) 03/25/21 03/25/21 03/25/21 10:19 10:19 12:52 WBC RBC Hgb Hct MCV MCH MCHC RDW Plt Count MPV Immature Gran % (Auto) Neut % (Auto) Lymph % (Auto) [place] % (Auto) Eos % (Auto) Baso % (Auto) Lymph # (Auto) [place] # (Auto) Eos # (Auto) Baso # (Auto) Abs Immat Gran (auto) Absolute Neuts (auto) Absolute Nucleated RBC Nucleated RBC % (auto) Neutrophils % (Manual) Band Neutrophils % Lymphocytes % (Manual) Atypical Lymphs % (Man) Monocytes % (Manual) Eosinophils % (Manual) Basophils % (Manual) Metamyelocytes % Myelocytes % Abs Neuts (Manual) Lymphocytes # (Manual) Atyp Lymphs # (Manual) Monocytes # (Manual) Eosinophils # (Manual) Basophils # (Manual) Metamyelocytes # Myelocytes # Nucleated RBCs Smudge Cells Dohle Bodies Platelet Estimate Large Platelets Plt Morphology Comment RBC Morphology Polychromasia Hypochromasia Basophilic Stippling Microcytosis Macrocytosis Pappenheimer Bodies Target Cells Tear Drop Cells Ovalocytes [place] Cells Acanthocytes (Spur) Smear Tech's Comments Smear Path Review ESR PT INR APTT aPTT Heparin Protocol D-Dimer High Sensitivty O2 Saturation ABG pH at Pt Temp ABG pH (Temp Correct) ABG pCO2 at Pt Temp ABG pCO2 (Temp Corrct ABG pO2 at Pt Temp ABG pO2 (Temp Correct ABG HCO3 ABG Base Excess (Actual) VBG pH 7.41 VBG pCO2 29 VBG pO2 37 VBG HCO3 19 L VBG O2 Saturation 61.0 VBG Base Excess -3.9 Sodium Potassium Chloride Carbon Dioxide Anion Gap BUN Creatinine Estim Creat Clear Calc Estimated GFR POC Glucose Random Glucose Lactic Acid Lactic Acid F/U @ 2Hr Calcium Phosphorus Magnesium Ferritin Total Bilirubin Direct Bilirubin AST ALT Alkaline Phosphatase Ammonia Lactate Dehydrogenase Troponin I High Sens C-Reactive Protein B-Natriuretic Peptide Total Protein Albumin Procalcitonin Urine Color Urine Appearance Urine pH Ur Specific [place] Urine Protein Urine Glucose (UA) Urine Ketones Urine Blood Urine Nitrite Ur Leukocyte Esterase Urine RBC Urine WBC Ur Squamous Epith Cells Ur Renal Epithelial Cell Urine Bacteria Urine Yeast Nasal Screen MRSA (PCR) Nasal S. aureus Screen Nasal MRSA/S.aureus Interp Stool Occult Blood Stool Leukocytes, Qual NEGATIVE Vancomycin Trough Random Vancomycin Urine Opiates Screen Urine Fentanyl Screen Ur Barbiturates Screen Ur Phencyclidine Scrn Ur Amphetamines Screen U Benzodiazepines Scrn Urine Cocaine Screen U Marijuana (THC) Screen C. difficile Tox B Gene NEGATIVE COVID-19 ([facility]) COVID-19 Clin Com Hepatitis A IgM Ab Hep Bs Antigen Hep Bs Antibody Hep B Core Total Ab Hepatitis C Ab (EIA) HIV 1&2 Ab/P24 Ag 4thGn Ur L.pneumophila Ag SARS-CoV-2 IgG Ab Blood Type Antibody Screen Antigen Identification Crossmatch Crossmatch (AHG) 03/25/21 03/25/21 03/25/21 13:07 15:05 15:05 WBC RBC Hgb Hct MCV MCH MCHC RDW Plt Count MPV Immature Gran % (Auto) Neut % (Auto) Lymph % (Auto) [place] % (Auto) Eos % (Auto) Baso % (Auto) Lymph # (Auto) [place] # (Auto) Eos # (Auto) Baso # (Auto) Abs Immat Gran (auto) Absolute Neuts (auto) Absolute Nucleated RBC Nucleated RBC % (auto) Neutrophils % (Manual) Band Neutrophils % Lymphocytes % (Manual) Atypical Lymphs % (Man) Monocytes % (Manual) Eosinophils % (Manual) Basophils % (Manual) Metamyelocytes % Myelocytes % Abs Neuts (Manual) Lymphocytes # (Manual) Atyp Lymphs # (Manual) Monocytes # (Manual) Eosinophils # (Manual) Basophils # (Manual) Metamyelocytes # Myelocytes # Nucleated RBCs Smudge Cells Dohle Bodies Platelet Estimate Large Platelets Plt Morphology Comment RBC Morphology Polychromasia Hypochromasia Basophilic Stippling Microcytosis Macrocytosis Pappenheimer Bodies Target Cells Tear Drop Cells Ovalocytes [place] Cells Acanthocytes (Spur) Smear Tech's Comments Smear Path Review ESR PT INR APTT aPTT Heparin Protocol D-Dimer High Sensitivty O2 Saturation Cancelled 93.0 ABG pH at Pt Temp Cancelled 7.41 ABG pH (Temp Correct) Cancelled ABG pCO2 at Pt Temp Cancelled 23 L ABG pCO2 (Temp Corrct Cancelled ABG pO2 at Pt Temp Cancelled 76 L ABG pO2 (Temp Correct Cancelled ABG HCO3 Cancelled 15 L ABG Base Excess (Actual) Cancelled -7.0 VBG pH VBG pCO2 VBG pO2 VBG HCO3 VBG O2 Saturation VBG Base Excess Sodium Potassium Chloride Carbon Dioxide Anion Gap BUN Creatinine Estim Creat Clear Calc Estimated GFR POC Glucose Random Glucose Lactic Acid 4.8 H* Lactic Acid F/U @ 2Hr Calcium Phosphorus Magnesium Ferritin Total Bilirubin Direct Bilirubin AST ALT Alkaline Phosphatase Ammonia Lactate Dehydrogenase Troponin I High Sens C-Reactive Protein B-Natriuretic Peptide Total Protein Albumin Procalcitonin Urine Color Urine Appearance Urine pH Ur Specific [place] Urine Protein Urine Glucose (UA) Urine Ketones Urine Blood Urine Nitrite Ur Leukocyte Esterase Urine RBC Urine WBC Ur Squamous Epith Cells Ur Renal Epithelial Cell Urine Bacteria Urine Yeast Nasal Screen MRSA (PCR) Nasal S. aureus Screen Nasal MRSA/S.aureus Interp Stool Occult Blood Stool Leukocytes, Qual Vancomycin Trough Random Vancomycin Urine Opiates Screen Urine Fentanyl Screen Ur Barbiturates Screen Ur Phencyclidine Scrn Ur Amphetamines Screen U Benzodiazepines Scrn Urine Cocaine Screen U Marijuana (THC) Screen C. difficile Tox B Gene COVID-19 ([facility]) COVID-19 Clin Com Hepatitis A IgM Ab Hep Bs Antigen Hep Bs Antibody Hep B Core Total Ab Hepatitis C Ab (EIA) HIV 1&2 Ab/P24 Ag 4thGn Ur L.pneumophila Ag SARS-CoV-2 IgG Ab Blood Type Antibody Screen Antigen Identification Crossmatch Crossmatch (AHG) 03/25/21 03/25/21 03/25/21 16:00 16:00 18:18 WBC RBC Hgb Hct MCV MCH MCHC RDW Plt Count MPV Immature Gran % (Auto) Neut % (Auto) Lymph % (Auto) [place] % (Auto) Eos % (Auto) Baso % (Auto) Lymph # (Auto) [place] # (Auto) Eos # (Auto) Baso # (Auto) Abs Immat Gran (auto) Absolute Neuts (auto) Absolute Nucleated RBC Nucleated RBC % (auto) Neutrophils % (Manual) Band Neutrophils % Lymphocytes % (Manual) Atypical Lymphs % (Man) Monocytes % (Manual) Eosinophils % (Manual) Basophils % (Manual) Metamyelocytes % Myelocytes % Abs Neuts (Manual) Lymphocytes # (Manual) Atyp Lymphs # (Manual) Monocytes # (Manual) Eosinophils # (Manual) Basophils # (Manual) Metamyelocytes # Myelocytes # Nucleated RBCs Smudge Cells Dohle Bodies Platelet Estimate Large Platelets Plt Morphology Comment RBC Morphology Polychromasia Hypochromasia Basophilic Stippling Microcytosis Macrocytosis Pappenheimer Bodies Target Cells Tear Drop Cells Ovalocytes [place] Cells Acanthocytes (Spur) Smear Tech's Comments Smear Path Review ESR PT INR APTT aPTT Heparin Protocol D-Dimer High Sensitivty O2 Saturation ABG pH at Pt Temp ABG pH (Temp Correct) ABG pCO2 at Pt Temp ABG pCO2 (Temp Corrct ABG pO2 at Pt Temp ABG pO2 (Temp Correct ABG HCO3 ABG Base Excess (Actual) VBG pH VBG pCO2 VBG pO2 VBG HCO3 VBG O2 Saturation VBG Base Excess Sodium Potassium Chloride Carbon Dioxide Anion Gap BUN Creatinine Estim Creat Clear Calc Estimated GFR POC Glucose Random Glucose Lactic Acid Lactic Acid F/U @ 2Hr Calcium Phosphorus Magnesium Ferritin Total Bilirubin Direct Bilirubin AST ALT Alkaline Phosphatase Ammonia Lactate Dehydrogenase Troponin I High Sens C-Reactive Protein B-Natriuretic Peptide Total Protein Albumin Procalcitonin Urine Color Urine Appearance Urine pH Ur Specific [place] Urine Protein Urine Glucose (UA) Urine Ketones Urine Blood Urine Nitrite Ur Leukocyte Esterase Urine RBC Urine WBC Ur Squamous Epith Cells Ur Renal Epithelial Cell Urine Bacteria Urine Yeast Nasal Screen MRSA (PCR) POSITIVE A Nasal S. aureus Screen POSITIVE A Nasal MRSA/S.aureus Interp SEE NOTE Stool Occult Blood Stool Leukocytes, Qual Vancomycin Trough Random Vancomycin Urine Opiates Screen Urine Fentanyl Screen Ur Barbiturates Screen Ur Phencyclidine Scrn Ur Amphetamines Screen U Benzodiazepines Scrn Urine Cocaine Screen U Marijuana (THC) Screen C. difficile Tox B Gene COVID-19 ([facility]) COVID-19 Clin Com Hepatitis A IgM Ab Nonreactive Hep Bs Antigen Negative Hep Bs Antibody NONREACTIVE Hep B Core Total Ab Nonreactive Hepatitis C Ab (EIA) Nonreactive HIV 1&2 Ab/P24 Ag 4thGn Nonreactive Ur L.pneumophila Ag Not Detected SARS-CoV-2 IgG Ab Blood Type Antibody Screen Antigen Identification Crossmatch Crossmatch (AHG) 03/26/21 03/26/21 03/26/21 05:10 05:10 05:10 WBC 48.1 H* RBC 3.65 L Hgb 10.4 L Hct 32.2 L MCV 88.2 MCH 28.5 MCHC 32.3 RDW 14.7 Plt Count 194 D MPV 11.9 Immature Gran % (Auto) Cancelled Neut % (Auto) Cancelled Lymph % (Auto) Cancelled [place] % (Auto) Cancelled Eos % (Auto) Cancelled Baso % (Auto) Cancelled Lymph # (Auto) Cancelled [place] # (Auto) Cancelled Eos # (Auto) Cancelled Baso # (Auto) Cancelled Abs Immat Gran (auto) Cancelled Absolute Neuts (auto) Cancelled Absolute Nucleated RBC 1.690 H Nucleated RBC % (auto) 3.5 H Neutrophils % (Manual) 94 H Band Neutrophils % 2 L Lymphocytes % (Manual) 3 L Atypical Lymphs % (Man) Monocytes % (Manual) Eosinophils % (Manual) Basophils % (Manual) Metamyelocytes % 1 Myelocytes % Abs Neuts (Manual) 46.2 H Lymphocytes # (Manual) 1.4 Atyp Lymphs # (Manual) Monocytes # (Manual) Eosinophils # (Manual) Basophils # (Manual) Metamyelocytes # 0.5 Myelocytes # Nucleated RBCs 3 H Smudge Cells PRESENT Dohle Bodies Platelet Estimate NORMAL Large Platelets Plt Morphology Comment NORMAL RBC Morphology NOTED Polychromasia Hypochromasia Basophilic Stippling Microcytosis Macrocytosis 1+ (5-14) Pappenheimer Bodies PRESENT Target Cells Tear Drop Cells 1+ (0-2) Ovalocytes [place] Cells 1+ (0-2) Acanthocytes (Spur) 1+ (0-2) Smear Tech's Comments Smear Path Review SEE NOTE ESR PT INR APTT aPTT Heparin Protocol D-Dimer High Sensitivty 2662 O2 Saturation ABG pH at Pt Temp ABG pH (Temp Correct) ABG pCO2 at Pt Temp ABG pCO2 (Temp Corrct ABG pO2 at Pt Temp ABG pO2 (Temp Correct ABG HCO3 ABG Base Excess (Actual) VBG pH VBG pCO2 VBG pO2 VBG HCO3 VBG O2 Saturation VBG Base Excess Sodium 140 Potassium 4.7 Chloride 103 Carbon Dioxide 16 L Anion Gap 26 H BUN 115 H D Creatinine 6.30 H* Estim Creat Clear Calc 10.0 Estimated GFR 7 POC Glucose Random Glucose 202 H Lactic Acid Lactic Acid F/U @ 2Hr Calcium 7.9 L Phosphorus 10.1 H Magnesium 1.9 Ferritin > 65753 H Total Bilirubin 1.5 H Direct Bilirubin AST 1765 H ALT 3221 H Alkaline Phosphatase 76 D Ammonia Lactate Dehydrogenase Troponin I High Sens C-Reactive Protein B-Natriuretic Peptide Total Protein 5.4 L Albumin 3.0 L Procalcitonin Urine Color Urine Appearance Urine pH Ur Specific [place] Urine Protein Urine Glucose (UA) Urine Ketones Urine Blood Urine Nitrite Ur Leukocyte Esterase Urine RBC Urine WBC Ur Squamous Epith Cells Ur Renal Epithelial Cell Urine Bacteria Urine Yeast Nasal Screen MRSA (PCR) Nasal S. aureus Screen Nasal MRSA/S.aureus Interp Stool Occult Blood Stool Leukocytes, Qual Vancomycin Trough Random Vancomycin Urine Opiates Screen Urine Fentanyl Screen Ur Barbiturates Screen Ur Phencyclidine Scrn Ur Amphetamines Screen U Benzodiazepines Scrn Urine Cocaine Screen U Marijuana (THC) Screen C. difficile Tox B Gene COVID-19 ([facility]) COVID-19 Clin Com Hepatitis A IgM Ab Hep Bs Antigen Hep Bs Antibody Hep B Core Total Ab Hepatitis C Ab (EIA) HIV 1&2 Ab/P24 Ag 4thGn Ur L.pneumophila Ag SARS-CoV-2 IgG Ab Blood Type Antibody Screen Antigen Identification Crossmatch Crossmatch (AHG) 03/26/21 03/26/21 03/26/21 05:10 05:10 05:10 WBC RBC Hgb Hct MCV MCH MCHC RDW Plt Count MPV Immature Gran % (Auto) Neut % (Auto) Lymph % (Auto) [place] % (Auto) Eos % (Auto) Baso % (Auto) Lymph # (Auto) [place] # (Auto) Eos # (Auto) Baso # (Auto) Abs Immat Gran (auto) Absolute Neuts (auto) Absolute Nucleated RBC Nucleated RBC % (auto) Neutrophils % (Manual) Band Neutrophils % Lymphocytes % (Manual) Atypical Lymphs % (Man) Monocytes % (Manual) Eosinophils % (Manual) Basophils % (Manual) Metamyelocytes % Myelocytes % Abs Neuts (Manual) Lymphocytes # (Manual) Atyp Lymphs # (Manual) Monocytes # (Manual) Eosinophils # (Manual) Basophils # (Manual) Metamyelocytes # Myelocytes # Nucleated RBCs Smudge Cells Dohle Bodies Platelet Estimate Large Platelets Plt Morphology Comment RBC Morphology Polychromasia Hypochromasia Basophilic Stippling Microcytosis Macrocytosis Pappenheimer Bodies Target Cells Tear Drop Cells Ovalocytes [place]ore Cells Acanthocytes (Spur) Smear Tech's Comments Smear Path Review ESR PT INR APTT aPTT Heparin Protocol D-Dimer High Sensitivty O2 Saturation ABG pH at Pt Temp ABG pH (Temp Correct) ABG pCO2 at Pt Temp ABG pCO2 (Temp Corrct ABG pO2 at Pt Temp ABG pO2 (Temp Correct ABG HCO3 ABG Base Excess (Actual) VBG pH VBG pCO2 VBG pO2 VBG HCO3 VBG O2 Saturation VBG Base Excess Sodium Potassium Chloride Carbon Dioxide Anion Gap BUN Creatinine Estim Creat Clear Calc Estimated GFR POC Glucose Random Glucose Lactic Acid 1.2 Lactic Acid F/U @ 2Hr Calcium Phosphorus Magnesium Ferritin Total Bilirubin Direct Bilirubin AST ALT Alkaline Phosphatase Ammonia Lactate Dehydrogenase Troponin I High Sens 1709.5 H* D C-Reactive Protein B-Natriuretic Peptide Total Protein Albumin Procalcitonin 12.68 Urine Color Urine Appearance Urine pH Ur Specific [place] Urine Protein Urine Glucose (UA) Urine Ketones Urine Blood Urine Nitrite Ur Leukocyte Esterase Urine RBC Urine WBC Ur Squamous Epith Cells Ur Renal Epithelial Cell Urine Bacteria Urine Yeast Nasal Screen MRSA (PCR) Nasal S. aureus Screen Nasal MRSA/S.aureus Interp Stool Occult Blood Stool Leukocytes, Qual Vancomycin Trough Random Vancomycin Urine Opiates Screen Urine Fentanyl Screen Ur Barbiturates Screen Ur Phencyclidine Scrn Ur Amphetamines Screen U Benzodiazepines Scrn Urine Cocaine Screen U Marijuana (THC) Screen C. difficile Tox B Gene COVID-19 ([facility]) COVID-19 Clin Com Hepatitis A IgM Ab Hep Bs Antigen Hep Bs Antibody Hep B Core Total Ab Hepatitis C Ab (EIA) HIV 1&2 Ab/P24 Ag 4thGn Ur L.pneumophila Ag SARS-CoV-2 IgG Ab Blood Type Antibody Screen Antigen Identification Crossmatch Crossmatch (AHG) 03/26/21 03/26/21 03/27/21 05:12 Unknown 05:22 WBC RBC Hgb Hct MCV MCH MCHC RDW Plt Count MPV Immature Gran % (Auto) Neut % (Auto) Lymph % (Auto) [place] % (Auto) Eos % (Auto) Baso % (Auto) Lymph # (Auto) [place] # (Auto) Eos # (Auto) Baso # (Auto) Abs Immat Gran (auto) Absolute Neuts (auto) Absolute Nucleated RBC Nucleated RBC % (auto) Neutrophils % (Manual) Band Neutrophils % Lymphocytes % (Manual) Atypical Lymphs % (Man) Monocytes % (Manual) Eosinophils % (Manual) Basophils % (Manual) Metamyelocytes % Myelocytes % Abs Neuts (Manual) Lymphocytes # (Manual) Atyp Lymphs # (Manual) Monocytes # (Manual) Eosinophils # (Manual) Basophils # (Manual) Metamyelocytes # Myelocytes # Nucleated RBCs Smudge Cells Dohle Bodies Platelet Estimate Large Platelets Plt Morphology Comment RBC Morphology Polychromasia Hypochromasia Basophilic Stippling Microcytosis Macrocytosis Pappenheimer Bodies Target Cells Tear Drop Cells Ovalocytes [place] Cells Acanthocytes (Spur) Smear Tech's Comments Smear Path Review ESR PT INR APTT aPTT Heparin Protocol D-Dimer High Sensitivty O2 Saturation ABG pH at Pt Temp ABG pH (Temp Correct) ABG pCO2 at Pt Temp ABG pCO2 (Temp Corrct ABG pO2 at Pt Temp ABG pO2 (Temp Correct ABG HCO3 ABG Base Excess (Actual) VBG pH 7.34 VBG pCO2 24 VBG pO2 48 VBG HCO3 13 L VBG O2 Saturation 76.0 VBG Base Excess -10.3 Sodium 135 Potassium 3.6 D Chloride 101 Carbon Dioxide 17 L Anion Gap 21 H BUN 83 H D Creatinine 4.63 H* Estim Creat Clear Calc 15.0 Estimated GFR 10 POC Glucose Random Glucose 254 H Lactic Acid Lactic Acid F/U @ 2Hr Calcium 7.5 L Phosphorus 4.8 H Magnesium 1.6 Ferritin Total Bilirubin 1.2 H Direct Bilirubin AST 327 H ALT 1605 H Alkaline Phosphatase 127 H D Ammonia Lactate Dehydrogenase 1160 H Troponin I High Sens C-Reactive Protein B-Natriuretic Peptide Total Protein 5.1 L Albumin 2.9 L Procalcitonin Urine Color Urine Appearance Urine pH Ur Specific [place] Urine Protein Urine Glucose (UA) Urine Ketones Urine Blood Urine Nitrite Ur Leukocyte Esterase Urine RBC Urine WBC Ur Squamous Epith Cells Ur Renal Epithelial Cell Urine Bacteria Urine Yeast Nasal Screen MRSA (PCR) Nasal S. aureus Screen Nasal MRSA/S.aureus Interp Stool Occult Blood POSITIVE Stool Leukocytes, Qual Vancomycin Trough Random Vancomycin Urine Opiates Screen Urine Fentanyl Screen Ur Barbiturates Screen Ur Phencyclidine Scrn Ur Amphetamines Screen U Benzodiazepines Scrn Urine Cocaine Screen U Marijuana (THC) Screen C. difficile Tox B Gene COVID-19 ([facility]) COVID-19 Clin Com Hepatitis A IgM Ab Hep Bs Antigen Hep Bs Antibody Hep B Core Total Ab Hepatitis C Ab (EIA) HIV 1&2 Ab/P24 Ag 4thGn Ur L.pneumophila Ag SARS-CoV-2 IgG Ab Blood Type Antibody Screen Antigen Identification Crossmatch Crossmatch (AHG) 03/27/21 03/27/21 03/27/21 05:22 05:22 05:22 WBC 35.4 H* RBC 3.15 L Hgb 9.1 L Hct 26.3 L MCV 83.5 MCH 28.9 MCHC 34.6 RDW 14.2 Plt Count 155 L MPV 12.2 Immature Gran % (Auto) 4.0 H Neut % (Auto) 91.7 H Lymph % (Auto) 1.1 L [place] % (Auto) 2.9 Eos % (Auto) 0.0 Baso % (Auto) 0.3 Lymph # (Auto) 0.4 L [place] # (Auto) 1.0 Eos # (Auto) 0.0 Baso # (Auto) 0.1 Abs Immat Gran (auto) 1.40 H Absolute Neuts (auto) 32.5 H Absolute Nucleated RBC 3.000 H Nucleated RBC % (auto) 8.5 H Neutrophils % (Manual) Band Neutrophils % Lymphocytes % (Manual) Atypical Lymphs % (Man) Monocytes % (Manual) Eosinophils % (Manual) Basophils % (Manual) Metamyelocytes % Myelocytes % Abs Neuts (Manual) Lymphocytes # (Manual) Atyp Lymphs # (Manual) Monocytes # (Manual) Eosinophils # (Manual) Basophils # (Manual) Metamyelocytes # Myelocytes # Nucleated RBCs Smudge Cells Dohle Bodies Platelet Estimate Large Platelets Plt Morphology Comment RBC Morphology Polychromasia Hypochromasia Basophilic Stippling Microcytosis Macrocytosis Pappenheimer Bodies Target Cells Tear Drop Cells Ovalocytes Abi Cells Acanthocytes (Spur) Smear Tech's Comments VERIFIED Smear Path Review ESR PT INR APTT aPTT Heparin Protocol D-Dimer High Sensitivty O2 Saturation ABG pH at Pt Temp ABG pH (Temp Correct) ABG pCO2 at Pt Temp ABG pCO2 (Temp Corrct ABG pO2 at Pt Temp ABG pO2 (Temp Correct ABG HCO3 ABG Base Excess (Actual) VBG pH VBG pCO2 VBG pO2 VBG HCO3 VBG O2 Saturation VBG Base Excess Sodium Potassium Chloride Carbon Dioxide Anion Gap BUN Creatinine Estim Creat Clear Calc Estimated GFR POC Glucose Random Glucose Lactic Acid 1.2 Lactic Acid F/U @ 2Hr Calcium Phosphorus Magnesium Ferritin Total Bilirubin Direct Bilirubin AST ALT Alkaline Phosphatase Ammonia Lactate Dehydrogenase Troponin I High Sens C-Reactive Protein B-Natriuretic Peptide Total Protein Albumin Procalcitonin 8.19 Urine Color Urine Appearance Urine pH Ur Specific [place] Urine Protein Urine Glucose (UA) Urine Ketones Urine Blood Urine Nitrite Ur Leukocyte Esterase Urine RBC Urine WBC Ur Squamous Epith Cells Ur Renal Epithelial Cell Urine Bacteria Urine Yeast Nasal Screen MRSA (PCR) Nasal S. aureus Screen Nasal MRSA/S.aureus Interp Stool Occult Blood Stool Leukocytes, Qual Vancomycin Trough Random Vancomycin Urine Opiates Screen Urine Fentanyl Screen Ur Barbiturates Screen Ur Phencyclidine Scrn Ur Amphetamines Screen U Benzodiazepines Scrn Urine Cocaine Screen U Marijuana (THC) Screen C. difficile Tox B Gene COVID-19 ([facility]) COVID-19 Clin Com Hepatitis A IgM Ab Hep Bs Antigen Hep Bs Antibody Hep B Core Total Ab Hepatitis C Ab (EIA) HIV 1&2 Ab/P24 Ag 4thGn Ur L.pneumophila Ag SARS-CoV-2 IgG Ab Blood Type Antibody Screen Antigen Identification Crossmatch Crossmatch (AHG) 03/27/21 03/28/21 03/28/21 05:25 05:35 05:35 WBC 35.9 H* RBC 2.92 L Hgb 8.7 L Hct 25.2 L MCV 86.3 MCH 29.8 MCHC 34.5 RDW 15.7 Plt Count 129 L MPV 12.2 Immature Gran % (Auto) Neut % (Auto) Lymph % (Auto) [place] % (Auto) Eos % (Auto) Baso % (Auto) Lymph # (Auto) [place] # (Auto) Eos # (Auto) Baso # (Auto) Abs Immat Gran (auto) Absolute Neuts (auto) Absolute Nucleated RBC 1.760 H Nucleated RBC % (auto) 4.9 H Neutrophils % (Manual) Band Neutrophils % Lymphocytes % (Manual) Atypical Lymphs % (Man) Monocytes % (Manual) Eosinophils % (Manual) Basophils % (Manual) Metamyelocytes % Myelocytes % Abs Neuts (Manual) Lymphocytes # (Manual) Atyp Lymphs # (Manual) Monocytes # (Manual) Eosinophils # (Manual) Basophils # (Manual) Metamyelocytes # Myelocytes # Nucleated RBCs Smudge Cells Dohle Bodies Platelet Estimate Large Platelets Plt Morphology Comment RBC Morphology Polychromasia Hypochromasia Basophilic Stippling Microcytosis Macrocytosis Pappenheimer Bodies Target Cells Tear Drop Cells Ovalocytes Abi Cells Acanthocytes (Spur) Smear Tech's Comments Smear Path Review ESR PT INR APTT aPTT Heparin Protocol D-Dimer High Sensitivty O2 Saturation ABG pH at Pt Temp ABG pH (Temp Correct) ABG pCO2 at Pt Temp ABG pCO2 (Temp Corrct ABG pO2 at Pt Temp ABG pO2 (Temp Correct ABG HCO3 ABG Base Excess (Actual) VBG pH 7.50 H VBG pCO2 22 VBG pO2 48 VBG HCO3 18 L VBG O2 Saturation 77.0 VBG Base Excess -3.3 Sodium Potassium Chloride Carbon Dioxide Anion Gap BUN Creatinine Estim Creat Clear Calc Estimated GFR POC Glucose Random Glucose Lactic Acid Lactic Acid F/U @ 2Hr Calcium Phosphorus Magnesium Ferritin Total Bilirubin Direct Bilirubin AST ALT Alkaline Phosphatase Ammonia Lactate Dehydrogenase Troponin I High Sens 601.4 H* D C-Reactive Protein B-Natriuretic Peptide Total Protein Albumin Procalcitonin Urine Color Urine Appearance Urine pH Ur Specific [place] Urine Protein Urine Glucose (UA) Urine Ketones Urine Blood Urine Nitrite Ur Leukocyte Esterase Urine RBC Urine WBC Ur Squamous Epith Cells Ur Renal Epithelial Cell Urine Bacteria Urine Yeast Nasal Screen MRSA (PCR) Nasal S. aureus Screen Nasal MRSA/S.aureus Interp Stool Occult Blood Stool Leukocytes, Qual Vancomycin Trough Random Vancomycin Urine Opiates Screen Urine Fentanyl Screen Ur Barbiturates Screen Ur Phencyclidine Scrn Ur Amphetamines Screen U Benzodiazepines Scrn Urine Cocaine Screen U Marijuana (THC) Screen C. difficile Tox B Gene COVID-19 ([facility]) COVID-19 Clin Com Hepatitis A IgM Ab Hep Bs Antigen Hep Bs Antibody Hep B Core Total Ab Hepatitis C Ab (EIA) HIV 1&2 Ab/P24 Ag 4thGn Ur L.pneumophila Ag SARS-CoV-2 IgG Ab Blood Type Antibody Screen Antigen Identification Crossmatch Crossmatch (AHG) 03/28/21 03/28/21 03/28/21 05:35 05:35 05:35 WBC RBC Hgb Hct MCV MCH MCHC RDW Plt Count MPV Immature Gran % (Auto) Neut % (Auto) Lymph % (Auto) [place] % (Auto) Eos % (Auto) Baso % (Auto) Lymph # (Auto) [place] # (Auto) Eos # (Auto) Baso # (Auto) Abs Immat Gran (auto) Absolute Neuts (auto) Absolute Nucleated RBC Nucleated RBC % (auto) Neutrophils % (Manual) Band Neutrophils % Lymphocytes % (Manual) Atypical Lymphs % (Man) Monocytes % (Manual) Eosinophils % (Manual) Basophils % (Manual) Metamyelocytes % Myelocytes % Abs Neuts (Manual) Lymphocytes # (Manual) Atyp Lymphs # (Manual) Monocytes # (Manual) Eosinophils # (Manual) Basophils # (Manual) Metamyelocytes # Myelocytes # Nucleated RBCs Smudge Cells Dohle Bodies Platelet Estimate Large Platelets Plt Morphology Comment RBC Morphology Polychromasia Hypochromasia Basophilic Stippling Microcytosis Macrocytosis Pappenheimer Bodies Target Cells Tear Drop Cells Ovalocytes Abi Cells Acanthocytes (Spur) Smear Tech's Comments Smear Path Review ESR PT INR APTT aPTT Heparin Protocol D-Dimer High Sensitivty O2 Saturation ABG pH at Pt Temp ABG pH (Temp Correct) ABG pCO2 at Pt Temp ABG pCO2 (Temp Corrct ABG pO2 at Pt Temp ABG pO2 (Temp Correct ABG HCO3 ABG Base Excess (Actual) VBG pH VBG pCO2 VBG pO2 VBG HCO3 VBG O2 Saturation VBG Base Excess Sodium 132 L Potassium 3.3 Chloride 95 L Carbon Dioxide 22 Anion Gap 18 BUN 65 H Creatinine 3.80 H Estim Creat Clear Calc 18.7 Estimated GFR 12 POC Glucose Random Glucose 270 H Lactic Acid 1.2 Lactic Acid F/U @ 2Hr Calcium 7.9 L Phosphorus 4.8 H Magnesium 1.8 Ferritin 7762 H Total Bilirubin 1.0 Direct Bilirubin AST 155 H ALT 894 H Alkaline Phosphatase 133 H Ammonia Lactate Dehydrogenase Troponin I High Sens C-Reactive Protein B-Natriuretic Peptide Total Protein 4.8 L Albumin 2.7 L Procalcitonin 6.47 Urine Color Urine Appearance Urine pH Ur Specific [place] Urine Protein Urine Glucose (UA) Urine Ketones Urine Blood Urine Nitrite Ur Leukocyte Esterase Urine RBC Urine WBC Ur Squamous Epith Cells Ur Renal Epithelial Cell Urine Bacteria Urine Yeast Nasal Screen MRSA (PCR) Nasal S. aureus Screen Nasal MRSA/S.aureus Interp Stool Occult Blood Stool Leukocytes, Qual Vancomycin Trough Random Vancomycin Urine Opiates Screen Urine Fentanyl Screen Ur Barbiturates Screen Ur Phencyclidine Scrn Ur Amphetamines Screen U Benzodiazepines Scrn Urine Cocaine Screen U Marijuana (THC) Screen C. difficile Tox B Gene COVID-19 ([facility]) COVID-19 Clin Com Hepatitis A IgM Ab Hep Bs Antigen Hep Bs Antibody Hep B Core Total Ab Hepatitis C Ab (EIA) HIV 1&2 Ab/P24 Ag 4thGn Ur L.pneumophila Ag SARS-CoV-2 IgG Ab Blood Type Antibody Screen Antigen Identification Crossmatch Crossmatch (AHG) 03/28/21 03/28/21 03/29/21 05:36 05:36 05:18 WBC 35.1 H* RBC 2.95 L Hgb 8.6 L Hct 25.4 L MCV 86.1 MCH 29.2 MCHC 33.9 RDW 16.0 Plt Count 130 L MPV 12.6 H Immature Gran % (Auto) Neut % (Auto) Lymph % (Auto) [place] % (Auto) Eos % (Auto) Baso % (Auto) Lymph # (Auto) [place] # (Auto) Eos # (Auto) Baso # (Auto) Abs Immat Gran (auto) Absolute Neuts (auto) Absolute Nucleated RBC 0.980 H Nucleated RBC % (auto) 2.8 H Neutrophils % (Manual) Band Neutrophils % Lymphocytes % (Manual) Atypical Lymphs % (Man) Monocytes % (Manual) Eosinophils % (Manual) Basophils % (Manual) Metamyelocytes % Myelocytes % Abs Neuts (Manual) Lymphocytes # (Manual) Atyp Lymphs # (Manual) Monocytes # (Manual) Eosinophils # (Manual) Basophils # (Manual) Metamyelocytes # Myelocytes # Nucleated RBCs Smudge Cells Dohle Bodies Platelet Estimate Large Platelets Plt Morphology Comment RBC Morphology Polychromasia Hypochromasia Basophilic Stippling Microcytosis Macrocytosis Pappenheimer Bodies Target Cells Tear Drop Cells Ovalocytes [place] Cells Acanthocytes (Spur) Smear Tech's Comments Smear Path Review ESR PT INR APTT aPTT Heparin Protocol D-Dimer High Sensitivty O2 Saturation ABG pH at Pt Temp ABG pH (Temp Correct) ABG pCO2 at Pt Temp ABG pCO2 (Temp Corrct ABG pO2 at Pt Temp ABG pO2 (Temp Correct ABG HCO3 ABG Base Excess (Actual) VBG pH 7.53 H VBG pCO2 27 VBG pO2 47 VBG HCO3 23 VBG O2 Saturation 75.0 VBG Base Excess 1.9 Sodium Potassium Chloride Carbon Dioxide Anion Gap BUN Creatinine Estim Creat Clear Calc Estimated GFR POC Glucose Random Glucose Lactic Acid Lactic Acid F/U @ 2Hr Calcium Phosphorus Magnesium Ferritin Total Bilirubin Direct Bilirubin AST ALT Alkaline Phosphatase Ammonia Lactate Dehydrogenase Troponin I High Sens C-Reactive Protein B-Natriuretic Peptide 7082 H Total Protein Albumin Procalcitonin Urine Color Urine Appearance Urine pH Ur Specific [place] Urine Protein Urine Glucose (UA) Urine Ketones Urine Blood Urine Nitrite Ur Leukocyte Esterase Urine RBC Urine WBC Ur Squamous Epith Cells Ur Renal Epithelial Cell Urine Bacteria Urine Yeast Nasal Screen MRSA (PCR) Nasal S. aureus Screen Nasal MRSA/S.aureus Interp Stool Occult Blood Stool Leukocytes, Qual Vancomycin Trough Random Vancomycin Urine Opiates Screen Urine Fentanyl Screen Ur Barbiturates Screen Ur Phencyclidine Scrn Ur Amphetamines Screen U Benzodiazepines Scrn Urine Cocaine Screen U Marijuana (THC) Screen C. difficile Tox B Gene COVID-19 ([facility]) COVID-19 Clin Com Hepatitis A IgM Ab Hep Bs Antigen Hep Bs Antibody Hep B Core Total Ab Hepatitis C Ab (EIA) HIV 1&2 Ab/P24 Ag 4thGn Ur L.pneumophila Ag SARS-CoV-2 IgG Ab Blood Type Antibody Screen Antigen Identification Crossmatch Crossmatch (AHG) 03/29/21 03/29/21 03/29/21 05:18 05:18 05:18 WBC RBC Hgb Hct MCV MCH MCHC RDW Plt Count MPV Immature Gran % (Auto) Neut % (Auto) Lymph % (Auto) [place] % (Auto) Eos % (Auto) Baso % (Auto) Lymph # (Auto) [place] # (Auto) Eos # (Auto) Baso # (Auto) Abs Immat Gran (auto) Absolute Neuts (auto) Absolute Nucleated RBC Nucleated RBC % (auto) Neutrophils % (Manual) Band Neutrophils % Lymphocytes % (Manual) Atypical Lymphs % (Man) Monocytes % (Manual) Eosinophils % (Manual) Basophils % (Manual) Metamyelocytes % Myelocytes % Abs Neuts (Manual) Lymphocytes # (Manual) Atyp Lymphs # (Manual) Monocytes # (Manual) Eosinophils # (Manual) Basophils # (Manual) Metamyelocytes # Myelocytes # Nucleated RBCs Smudge Cells Dohle Bodies Platelet Estimate Large Platelets Plt Morphology Comment RBC Morphology Polychromasia Hypochromasia Basophilic Stippling Microcytosis Macrocytosis Pappenheimer Bodies Target Cells Tear Drop Cells Ovalocytes [place] Cells Acanthocytes (Spur) Smear Tech's Comments Smear Path Review ESR PT INR APTT aPTT Heparin Protocol D-Dimer High Sensitivty 1068 O2 Saturation ABG pH at Pt Temp ABG pH (Temp Correct) ABG pCO2 at Pt Temp ABG pCO2 (Temp Corrct ABG pO2 at Pt Temp ABG pO2 (Temp Correct ABG HCO3 ABG Base Excess (Actual) VBG pH VBG pCO2 VBG pO2 VBG HCO3 VBG O2 Saturation VBG Base Excess Sodium 133 L Potassium 3.5 Chloride 96 Carbon Dioxide 18 L Anion Gap 23 H BUN 94 H D Creatinine 4.99 H* Estim Creat Clear Calc 14.3 Estimated GFR 9 POC Glucose Random Glucose 244 H Lactic Acid Lactic Acid F/U @ 2Hr Calcium 8.1 L Phosphorus 7.5 H Magnesium 1.8 Ferritin 4720 H Total Bilirubin 0.8 Direct Bilirubin AST 108 H ALT 580 H Alkaline Phosphatase 143 H Ammonia Lactate Dehydrogenase 847 H Troponin I High Sens C-Reactive Protein B-Natriuretic Peptide 6976 H Total Protein 5.1 L Albumin 2.7 L Procalcitonin Urine Color Urine Appearance Urine pH Ur Specific [place] Urine Protein Urine Glucose (UA) Urine Ketones Urine Blood Urine Nitrite Ur Leukocyte Esterase Urine RBC Urine WBC Ur Squamous Epith Cells Ur Renal Epithelial Cell Urine Bacteria Urine Yeast Nasal Screen MRSA (PCR) Nasal S. aureus Screen Nasal MRSA/S.aureus Interp Stool Occult Blood Stool Leukocytes, Qual Vancomycin Trough Random Vancomycin Urine Opiates Screen Urine Fentanyl Screen Ur Barbiturates Screen Ur Phencyclidine Scrn Ur Amphetamines Screen U Benzodiazepines Scrn Urine Cocaine Screen U Marijuana (THC) Screen C. difficile Tox B Gene COVID-19 ([facility]) COVID-19 Clin Com Hepatitis A IgM Ab Hep Bs Antigen Hep Bs Antibody Hep B Core Total Ab Hepatitis C Ab (EIA) HIV 1&2 Ab/P24 Ag 4thGn Ur L.pneumophila Ag SARS-CoV-2 IgG Ab Blood Type Antibody Screen Antigen Identification Crossmatch Crossmatch (AHG) 03/29/21 03/29/21 03/29/21 05:18 05:31 16:46 WBC RBC Hgb Hct MCV MCH MCHC RDW Plt Count MPV Immature Gran % (Auto) Neut % (Auto) Lymph % (Auto) [place] % (Auto) Eos % (Auto) Baso % (Auto) Lymph # (Auto) [place] # (Auto) Eos # (Auto) Baso # (Auto) Abs Immat Gran (auto) Absolute Neuts (auto) Absolute Nucleated RBC Nucleated RBC % (auto) Neutrophils % (Manual) Band Neutrophils % Lymphocytes % (Manual) Atypical Lymphs % (Man) Monocytes % (Manual) Eosinophils % (Manual) Basophils % (Manual) Metamyelocytes % Myelocytes % Abs Neuts (Manual) Lymphocytes # (Manual) Atyp Lymphs # (Manual) Monocytes # (Manual) Eosinophils # (Manual) Basophils # (Manual) Metamyelocytes # Myelocytes # Nucleated RBCs Smudge Cells Dohle Bodies Platelet Estimate Large Platelets Plt Morphology Comment RBC Morphology Polychromasia Hypochromasia Basophilic Stippling Microcytosis Macrocytosis Pappenheimer Bodies Target Cells Tear Drop Cells Ovalocytes Abi Cells Acanthocytes (Spur) Smear Tech's Comments Smear Path Review ESR PT INR APTT aPTT Heparin Protocol D-Dimer High Sensitivty O2 Saturation ABG pH at Pt Temp ABG pH (Temp Correct) ABG pCO2 at Pt Temp ABG pCO2 (Temp Corrct ABG pO2 at Pt Temp ABG pO2 (Temp Correct ABG HCO3 ABG Base Excess (Actual) VBG pH 7.41 VBG pCO2 29 VBG pO2 49 VBG HCO3 19 L VBG O2 Saturation 76.0 VBG Base Excess -4.5 Sodium Potassium Chloride Carbon Dioxide Anion Gap BUN Creatinine Estim Creat Clear Calc Estimated GFR POC Glucose 193 H Random Glucose Lactic Acid Lactic Acid F/U @ 2Hr Calcium Phosphorus Magnesium Ferritin Total Bilirubin Direct Bilirubin AST ALT Alkaline Phosphatase Ammonia Lactate Dehydrogenase Troponin I High Sens C-Reactive Protein B-Natriuretic Peptide Total Protein Albumin Procalcitonin 5.31 Urine Color Urine Appearance Urine pH Ur Specific [place] Urine Protein Urine Glucose (UA) Urine Ketones Urine Blood Urine Nitrite Ur Leukocyte Esterase Urine RBC Urine WBC Ur Squamous Epith Cells Ur Renal Epithelial Cell Urine Bacteria Urine Yeast Nasal Screen MRSA (PCR) Nasal S. aureus Screen Nasal MRSA/S.aureus Interp Stool Occult Blood Stool Leukocytes, Qual Vancomycin Trough Random Vancomycin Urine Opiates Screen Urine Fentanyl Screen Ur Barbiturates Screen Ur Phencyclidine Scrn Ur Amphetamines Screen U Benzodiazepines Scrn Urine Cocaine Screen U Marijuana (THC) Screen C. difficile Tox B Gene COVID-19 ([facility]) COVID-19 Clin Com Hepatitis A IgM Ab Hep Bs Antigen Hep Bs Antibody Hep B Core Total Ab Hepatitis C Ab (EIA) HIV 1&2 Ab/P24 Ag 4thGn Ur L.pneumophila Ag SARS-CoV-2 IgG Ab Blood Type Antibody Screen Antigen Identification Crossmatch Crossmatch (AHG) 03/29/21 03/30/21 03/30/21 23:54 05:21 05:30 WBC 20.0 H RBC 2.87 L Hgb 8.5 L Hct 25.1 L MCV 87.5 MCH 29.6 MCHC 33.9 RDW 17.6 H Plt Count 129 L MPV 12.2 Immature Gran % (Auto) Neut % (Auto) Lymph % (Auto) [place] % (Auto) Eos % (Auto) Baso % (Auto) Lymph # (Auto) [place] # (Auto) Eos # (Auto) Baso # (Auto) Abs Immat Gran (auto) Absolute Neuts (auto) Absolute Nucleated RBC 1.010 H Nucleated RBC % (auto) 5.0 H Neutrophils % (Manual) Band Neutrophils % Lymphocytes % (Manual) Atypical Lymphs % (Man) Monocytes % (Manual) Eosinophils % (Manual) Basophils % (Manual) Metamyelocytes % Myelocytes % Abs Neuts (Manual) Lymphocytes # (Manual) Atyp Lymphs # (Manual) Monocytes # (Manual) Eosinophils # (Manual) Basophils # (Manual) Metamyelocytes # Myelocytes # Nucleated RBCs Smudge Cells Dohle Bodies Platelet Estimate Large Platelets Plt Morphology Comment RBC Morphology Polychromasia Hypochromasia Basophilic Stippling Microcytosis Macrocytosis Pappenheimer Bodies Target Cells Tear Drop Cells Ovalocytes [place] Cells Acanthocytes (Spur) Smear Tech's Comments Smear Path Review ESR PT INR APTT aPTT Heparin Protocol D-Dimer High Sensitivty O2 Saturation ABG pH at Pt Temp ABG pH (Temp Correct) ABG pCO2 at Pt Temp ABG pCO2 (Temp Corrct ABG pO2 at Pt Temp ABG pO2 (Temp Correct ABG HCO3 ABG Base Excess (Actual) VBG pH VBG pCO2 VBG pO2 VBG HCO3 VBG O2 Saturation VBG Base Excess Sodium Potassium Chloride Carbon Dioxide Anion Gap BUN Creatinine Estim Creat Clear Calc Estimated GFR POC Glucose 147 H 132 H Random Glucose Lactic Acid Lactic Acid F/U @ 2Hr Calcium Phosphorus Magnesium Ferritin Total Bilirubin Direct Bilirubin AST ALT Alkaline Phosphatase Ammonia Lactate Dehydrogenase Troponin I High Sens C-Reactive Protein B-Natriuretic Peptide Total Protein Albumin Procalcitonin Urine Color Urine Appearance Urine pH Ur Specific [place] Urine Protein Urine Glucose (UA) Urine Ketones Urine Blood Urine Nitrite Ur Leukocyte Esterase Urine RBC Urine WBC Ur Squamous Epith Cells Ur Renal Epithelial Cell Urine Bacteria Urine Yeast Nasal Screen MRSA (PCR) Nasal S. aureus Screen Nasal MRSA/S.aureus Interp Stool Occult Blood Stool Leukocytes, Qual Vancomycin Trough Random Vancomycin Urine Opiates Screen Urine Fentanyl Screen Ur Barbiturates Screen Ur Phencyclidine Scrn Ur Amphetamines Screen U Benzodiazepines Scrn Urine Cocaine Screen U Marijuana (THC) Screen C. difficile Tox B Gene COVID-19 ([facility]) COVID-19 Clin Com Hepatitis A IgM Ab Hep Bs Antigen Hep Bs Antibody Hep B Core Total Ab Hepatitis C Ab (EIA) HIV 1&2 Ab/P24 Ag 4thGn Ur L.pneumophila Ag SARS-CoV-2 IgG Ab Blood Type Antibody Screen Antigen Identification Crossmatch Crossmatch (AHG) 03/30/21 03/30/21 03/30/21 05:30 05:33 11:24 WBC RBC Hgb Hct MCV MCH MCHC RDW Plt Count MPV Immature Gran % (Auto) Neut % (Auto) Lymph % (Auto) [place] % (Auto) Eos % (Auto) Baso % (Auto) Lymph # (Auto) [place] # (Auto) Eos # (Auto) Baso # (Auto) Abs Immat Gran (auto) Absolute Neuts (auto) Absolute Nucleated RBC Nucleated RBC % (auto) Neutrophils % (Manual) Band Neutrophils % Lymphocytes % (Manual) Atypical Lymphs % (Man) Monocytes % (Manual) Eosinophils % (Manual) Basophils % (Manual) Metamyelocytes % Myelocytes % Abs Neuts (Manual) Lymphocytes # (Manual) Atyp Lymphs # (Manual) Monocytes # (Manual) Eosinophils # (Manual) Basophils # (Manual) Metamyelocytes # Myelocytes # Nucleated RBCs Smudge Cells Dohle Bodies Platelet Estimate Large Platelets Plt Morphology Comment RBC Morphology Polychromasia Hypochromasia Basophilic Stippling Microcytosis Macrocytosis Pappenheimer Bodies Target Cells Tear Drop Cells Ovalocytes [place] Cells Acanthocytes (Spur) Smear Tech's Comments Smear Path Review ESR PT INR APTT aPTT Heparin Protocol D-Dimer High Sensitivty O2 Saturation ABG pH at Pt Temp ABG pH (Temp Correct) ABG pCO2 at Pt Temp ABG pCO2 (Temp Corrct ABG pO2 at Pt Temp ABG pO2 (Temp Correct ABG HCO3 ABG Base Excess (Actual) VBG pH 7.51 H VBG pCO2 27 VBG pO2 45 VBG HCO3 22 VBG O2 Saturation 67.0 VBG Base Excess 0.4 Sodium 133 L Potassium 3.4 Chloride 97 Carbon Dioxide 19 L Anion Gap 20 BUN 75 H Creatinine 4.33 H* Estim Creat Clear Calc 16.2 Estimated GFR 10 POC Glucose 120 H Random Glucose 133 H Lactic Acid Lactic Acid F/U @ 2Hr Calcium 7.9 L Phosphorus 5.6 H Magnesium 2.1 Ferritin Total Bilirubin Direct Bilirubin AST ALT Alkaline Phosphatase Ammonia Lactate Dehydrogenase Troponin I High Sens C-Reactive Protein B-Natriuretic Peptide Total Protein Albumin Procalcitonin Urine Color Urine Appearance Urine pH Ur Specific [place] Urine Protein Urine Glucose (UA) Urine Ketones Urine Blood Urine Nitrite Ur Leukocyte Esterase Urine RBC Urine WBC Ur Squamous Epith Cells Ur Renal Epithelial Cell Urine Bacteria Urine Yeast Nasal Screen MRSA (PCR) Nasal S. aureus Screen Nasal MRSA/S.aureus Interp Stool Occult Blood Stool Leukocytes, Qual Vancomycin Trough Random Vancomycin Urine Opiates Screen Urine Fentanyl Screen Ur Barbiturates Screen Ur Phencyclidine Scrn Ur Amphetamines Screen U Benzodiazepines Scrn Urine Cocaine Screen U Marijuana (THC) Screen C. difficile Tox B Gene COVID-19 ([facility]) COVID-19 Clin Com Hepatitis A IgM Ab Hep Bs Antigen Hep Bs Antibody Hep B Core Total Ab Hepatitis C Ab (EIA) HIV 1&2 Ab/P24 Ag 4thGn Ur L.pneumophila Ag SARS-CoV-2 IgG Ab Blood Type Antibody Screen Antigen Identification Crossmatch Crossmatch (AHG) 03/30/21 03/30/21 03/31/21 17:51 23:36 04:23 WBC 12.1 H RBC 2.74 L Hgb 7.9 L Hct 24.0 L MCV 87.6 MCH 28.8 MCHC 32.9 RDW 18.3 H Plt Count 140 L MPV 12.4 H Immature Gran % (Auto) 0.7 H Neut % (Auto) 89.3 H Lymph % (Auto) 2.7 L [place] % (Auto) 7.2 Eos % (Auto) 0.0 Baso % (Auto) 0.1 Lymph # (Auto) 0.3 L [place] # (Auto) 0.9 Eos # (Auto) 0.0 Baso # (Auto) 0.0 Abs Immat Gran (auto) 0.09 H Absolute Neuts (auto) 10.8 H Absolute Nucleated RBC 0.530 H Nucleated RBC % (auto) 4.4 H Neutrophils % (Manual) Band Neutrophils % Lymphocytes % (Manual) Atypical Lymphs % (Man) Monocytes % (Manual) Eosinophils % (Manual) Basophils % (Manual) Metamyelocytes % Myelocytes % Abs Neuts (Manual) Lymphocytes # (Manual) Atyp Lymphs # (Manual) Monocytes # (Manual) Eosinophils # (Manual) Basophils # (Manual) Metamyelocytes # Myelocytes # Nucleated RBCs Smudge Cells Dohle Bodies Platelet Estimate Large Platelets Plt Morphology Comment RBC Morphology Polychromasia Hypochromasia Basophilic Stippling Microcytosis Macrocytosis Pappenheimer Bodies Target Cells Tear Drop Cells Ovalocytes Abi Cells Acanthocytes (Spur) Smear Tech's Comments Smear Path Review ESR PT INR APTT aPTT Heparin Protocol D-Dimer High Sensitivty O2 Saturation ABG pH at Pt Temp ABG pH (Temp Correct) ABG pCO2 at Pt Temp ABG pCO2 (Temp Corrct ABG pO2 at Pt Temp ABG pO2 (Temp Correct ABG HCO3 ABG Base Excess (Actual) VBG pH VBG pCO2 VBG pO2 VBG HCO3 VBG O2 Saturation VBG Base Excess Sodium Potassium Chloride Carbon Dioxide Anion Gap BUN Creatinine Estim Creat Clear Calc Estimated GFR POC Glucose 114 111 Random Glucose Lactic Acid Lactic Acid F/U @ 2Hr Calcium Phosphorus Magnesium Ferritin Total Bilirubin Direct Bilirubin AST ALT Alkaline Phosphatase Ammonia Lactate Dehydrogenase Troponin I High Sens C-Reactive Protein B-Natriuretic Peptide Total Protein Albumin Procalcitonin Urine Color Urine Appearance Urine pH Ur Specific [place] Urine Protein Urine Glucose (UA) Urine Ketones Urine Blood Urine Nitrite Ur Leukocyte Esterase Urine RBC Urine WBC Ur Squamous Epith Cells Ur Renal Epithelial Cell Urine Bacteria Urine Yeast Nasal Screen MRSA (PCR) Nasal S. aureus Screen Nasal MRSA/S.aureus Interp Stool Occult Blood Stool Leukocytes, Qual Vancomycin Trough Random Vancomycin Urine Opiates Screen Urine Fentanyl Screen Ur Barbiturates Screen Ur Phencyclidine Scrn Ur Amphetamines Screen U Benzodiazepines Scrn Urine Cocaine Screen U Marijuana (THC) Screen C. difficile Tox B Gene COVID-19 ([facility]) COVID-19 Clin Com Hepatitis A IgM Ab Hep Bs Antigen Hep Bs Antibody Hep B Core Total Ab Hepatitis C Ab (EIA) HIV 1&2 Ab/P24 Ag 4thGn Ur L.pneumophila Ag SARS-CoV-2 IgG Ab Blood Type Antibody Screen Antigen Identification Crossmatch Crossmatch (AHG) 03/31/21 03/31/21 03/31/21 04:23 04:23 04:23 WBC RBC Hgb Hct MCV MCH MCHC RDW Plt Count MPV Immature Gran % (Auto) Neut % (Auto) Lymph % (Auto) [place] % (Auto) Eos % (Auto) Baso % (Auto) Lymph # (Auto) [place] # (Auto) Eos # (Auto) Baso # (Auto) Abs Immat Gran (auto) Absolute Neuts (auto) Absolute Nucleated RBC Nucleated RBC % (auto) Neutrophils % (Manual) Band Neutrophils % Lymphocytes % (Manual) Atypical Lymphs % (Man) Monocytes % (Manual) Eosinophils % (Manual) Basophils % (Manual) Metamyelocytes % Myelocytes % Abs Neuts (Manual) Lymphocytes # (Manual) Atyp Lymphs # (Manual) Monocytes # (Manual) Eosinophils # (Manual) Basophils # (Manual) Metamyelocytes # Myelocytes # Nucleated RBCs Smudge Cells Dohle Bodies Platelet Estimate Large Platelets Plt Morphology Comment RBC Morphology Polychromasia Hypochromasia Basophilic Stippling Microcytosis Macrocytosis Pappenheimer Bodies Target Cells Tear Drop Cells Ovalocytes Abi Cells Acanthocytes (Spur) Smear Tech's Comments Smear Path Review ESR PT INR APTT aPTT Heparin Protocol D-Dimer High Sensitivty O2 Saturation ABG pH at Pt Temp ABG pH (Temp Correct) ABG pCO2 at Pt Temp ABG pCO2 (Temp Corrct ABG pO2 at Pt Temp ABG pO2 (Temp Correct ABG HCO3 ABG Base Excess (Actual) VBG pH VBG pCO2 VBG pO2 VBG HCO3 VBG O2 Saturation VBG Base Excess Sodium 134 L Potassium 3.2 L Chloride 98 Carbon Dioxide 19 L Anion Gap 20 BUN 95 H D Creatinine 5.16 H* Estim Creat Clear Calc 13.6 Estimated GFR 9 POC Glucose Random Glucose 126 H Lactic Acid Lactic Acid F/U @ 2Hr Calcium 7.9 L Phosphorus 7.6 H Magnesium 2.1 Ferritin 3166 H Total Bilirubin 0.5 Direct Bilirubin AST 54 H ALT 226 H Alkaline Phosphatase 116 Ammonia Lactate Dehydrogenase Troponin I High Sens 1026.1 H* D C-Reactive Protein B-Natriuretic Peptide Total Protein 4.4 L Albumin 2.4 L Procalcitonin 4.36 Urine Color Urine Appearance Urine pH Ur Specific [place] Urine Protein Urine Glucose (UA) Urine Ketones Urine Blood Urine Nitrite Ur Leukocyte Esterase Urine RBC Urine WBC Ur Squamous Epith Cells Ur Renal Epithelial Cell Urine Bacteria Urine Yeast Nasal Screen MRSA (PCR) Nasal S. aureus Screen Nasal MRSA/S.aureus Interp Stool Occult Blood Stool Leukocytes, Qual Vancomycin Trough Random Vancomycin Urine Opiates Screen Urine Fentanyl Screen Ur Barbiturates Screen Ur Phencyclidine Scrn Ur Amphetamines Screen U Benzodiazepines Scrn Urine Cocaine Screen U Marijuana (THC) Screen C. difficile Tox B Gene COVID-19 ([facility]) COVID-19 Clin Com Hepatitis A IgM Ab Hep Bs Antigen Hep Bs Antibody Hep B Core Total Ab Hepatitis C Ab (EIA) HIV 1&2 Ab/P24 Ag 4thGn Ur L.pneumophila Ag SARS-CoV-2 IgG Ab Blood Type Antibody Screen Antigen Identification Crossmatch Crossmatch (AHG) 03/31/21 03/31/21 03/31/21 04:39 05:23 12:20 WBC RBC Hgb Hct MCV MCH MCHC RDW Plt Count MPV Immature Gran % (Auto) Neut % (Auto) Lymph % (Auto) [place] % (Auto) Eos % (Auto) Baso % (Auto) Lymph # (Auto) [place] # (Auto) Eos # (Auto) Baso # (Auto) Abs Immat Gran (auto) Absolute Neuts (auto) Absolute Nucleated RBC Nucleated RBC % (auto) Neutrophils % (Manual) Band Neutrophils % Lymphocytes % (Manual) Atypical Lymphs % (Man) Monocytes % (Manual) Eosinophils % (Manual) Basophils % (Manual) Metamyelocytes % Myelocytes % Abs Neuts (Manual) Lymphocytes # (Manual) Atyp Lymphs # (Manual) Monocytes # (Manual) Eosinophils # (Manual) Basophils # (Manual) Metamyelocytes # Myelocytes # Nucleated RBCs Smudge Cells Dohle Bodies Platelet Estimate Large Platelets Plt Morphology Comment RBC Morphology Polychromasia Hypochromasia Basophilic Stippling Microcytosis Macrocytosis Pappenheimer Bodies Target Cells Tear Drop Cells Ovalocytes [place] Cells Acanthocytes (Spur) Smear Tech's Comments Smear Path Review ESR PT INR APTT aPTT Heparin Protocol D-Dimer High Sensitivty O2 Saturation ABG pH at Pt Temp ABG pH (Temp Correct) ABG pCO2 at Pt Temp ABG pCO2 (Temp Corrct ABG pO2 at Pt Temp ABG pO2 (Temp Correct ABG HCO3 ABG Base Excess (Actual) VBG pH 7.38 VBG pCO2 29 VBG pO2 53 VBG HCO3 18 L VBG O2 Saturation 80.0 VBG Base Excess -5.8 Sodium Potassium Chloride Carbon Dioxide Anion Gap BUN Creatinine Estim Creat Clear Calc Estimated GFR POC Glucose 133 H 87 Random Glucose Lactic Acid Lactic Acid F/U @ 2Hr Calcium Phosphorus Magnesium Ferritin Total Bilirubin Direct Bilirubin AST ALT Alkaline Phosphatase Ammonia Lactate Dehydrogenase Troponin I High Sens C-Reactive Protein B-Natriuretic Peptide Total Protein Albumin Procalcitonin Urine Color Urine Appearance Urine pH Ur Specific [place] Urine Protein Urine Glucose (UA) Urine Ketones Urine Blood Urine Nitrite Ur Leukocyte Esterase Urine RBC Urine WBC Ur Squamous Epith Cells Ur Renal Epithelial Cell Urine Bacteria Urine Yeast Nasal Screen MRSA (PCR) Nasal S. aureus Screen Nasal MRSA/S.aureus Interp Stool Occult Blood Stool Leukocytes, Qual Vancomycin Trough Random Vancomycin Urine Opiates Screen Urine Fentanyl Screen Ur Barbiturates Screen Ur Phencyclidine Scrn Ur Amphetamines Screen U Benzodiazepines Scrn Urine Cocaine Screen U Marijuana (THC) Screen C. difficile Tox B Gene COVID-19 ([facility]) COVID-19 Clin Com Hepatitis A IgM Ab Hep Bs Antigen Hep Bs Antibody Hep B Core Total Ab Hepatitis C Ab (EIA) HIV 1&2 Ab/P24 Ag 4thGn Ur L.pneumophila Ag SARS-CoV-2 IgG Ab Blood Type Antibody Screen Antigen Identification Crossmatch Crossmatch (AHG) 03/31/21 03/31/21 03/31/21 13:07 13:07 18:15 WBC RBC Hgb Hct MCV MCH MCHC RDW Plt Count MPV Immature Gran % (Auto) Neut % (Auto) Lymph % (Auto) [place] % (Auto) Eos % (Auto) Baso % (Auto) Lymph # (Auto) [place] # (Auto) Eos # (Auto) Baso # (Auto) Abs Immat Gran (auto) Absolute Neuts (auto) Absolute Nucleated RBC Nucleated RBC % (auto) Neutrophils % (Manual) Band Neutrophils % Lymphocytes % (Manual) Atypical Lymphs % (Man) Monocytes % (Manual) Eosinophils % (Manual) Basophils % (Manual) Metamyelocytes % Myelocytes % Abs Neuts (Manual) Lymphocytes # (Manual) Atyp Lymphs # (Manual) Monocytes # (Manual) Eosinophils # (Manual) Basophils # (Manual) Metamyelocytes # Myelocytes # Nucleated RBCs Smudge Cells Dohle Bodies Platelet Estimate Large Platelets Plt Morphology Comment RBC Morphology Polychromasia Hypochromasia Basophilic Stippling Microcytosis Macrocytosis Pappenheimer Bodies Target Cells Tear Drop Cells Ovalocytes Abi Cells Acanthocytes (Spur) Smear Tech's Comments Smear Path Review ESR 49 H PT INR APTT aPTT Heparin Protocol D-Dimer High Sensitivty O2 Saturation ABG pH at Pt Temp ABG pH (Temp Correct) ABG pCO2 at Pt Temp ABG pCO2 (Temp Corrct ABG pO2 at Pt Temp ABG pO2 (Temp Correct ABG HCO3 ABG Base Excess (Actual) VBG pH VBG pCO2 VBG pO2 VBG HCO3 VBG O2 Saturation VBG Base Excess Sodium 135 Potassium 3.3 Chloride 100 Carbon Dioxide 22 Anion Gap 16 BUN 43 H D Creatinine 2.74 H Estim Creat Clear Calc 25.8 Estimated GFR 18 POC Glucose 126 H Random Glucose 124 H Lactic Acid Lactic Acid F/U @ 2Hr Calcium 8.1 L Phosphorus Magnesium Ferritin Total Bilirubin Direct Bilirubin AST ALT Alkaline Phosphatase Ammonia Lactate Dehydrogenase Troponin I High Sens C-Reactive Protein 9.83 H B-Natriuretic Peptide Total Protein Albumin Procalcitonin Urine Color Urine Appearance Urine pH Ur Specific [place] Urine Protein Urine Glucose (UA) Urine Ketones Urine Blood Urine Nitrite Ur Leukocyte Esterase Urine RBC Urine WBC Ur Squamous Epith Cells Ur Renal Epithelial Cell Urine Bacteria Urine Yeast Nasal Screen MRSA (PCR) Nasal S. aureus Screen Nasal MRSA/S.aureus Interp Stool Occult Blood Stool Leukocytes, Qual Vancomycin Trough Random Vancomycin Urine Opiates Screen Urine Fentanyl Screen Ur Barbiturates Screen Ur Phencyclidine Scrn Ur Amphetamines Screen U Benzodiazepines Scrn Urine Cocaine Screen U Marijuana (THC) Screen C. difficile Tox B Gene COVID-19 ([facility]) COVID-19 Clin Com Hepatitis A IgM Ab Hep Bs Antigen Hep Bs Antibody Hep B Core Total Ab Hepatitis C Ab (EIA) HIV 1&2 Ab/P24 Ag 4thGn Ur L.pneumophila Ag SARS-CoV-2 IgG Ab Blood Type Antibody Screen Antigen Identification Crossmatch Crossmatch (AHG) 03/31/21 03/31/21 04/01/21 19:47 23:31 05:30 WBC 7.4 RBC 2.47 L Hgb 7.0 L* Hct 22.3 L MCV 90.3 MCH 28.3 MCHC 31.4 RDW 19.2 H Plt Count 135 L MPV 12.6 H Immature Gran % (Auto) 0.5 H Neut % (Auto) 84.1 H Lymph % (Auto) 5.8 L [place] % (Auto) 9.6 Eos % (Auto) 0.0 Baso % (Auto) 0.0 Lymph # (Auto) 0.4 L [place] # (Auto) 0.7 Eos # (Auto) 0.0 Baso # (Auto) 0.0 Abs Immat Gran (auto) 0.04 H Absolute Neuts (auto) 6.2 Absolute Nucleated RBC 0.190 H Nucleated RBC % (auto) 2.6 H Neutrophils % (Manual) Band Neutrophils % Lymphocytes % (Manual) Atypical Lymphs % (Man) Monocytes % (Manual) Eosinophils % (Manual) Basophils % (Manual) Metamyelocytes % Myelocytes % Abs Neuts (Manual) Lymphocytes # (Manual) Atyp Lymphs # (Manual) Monocytes # (Manual) Eosinophils # (Manual) Basophils # (Manual) Metamyelocytes # Myelocytes # Nucleated RBCs Smudge Cells Dohle Bodies Platelet Estimate Large Platelets Plt Morphology Comment RBC Morphology Polychromasia Hypochromasia Basophilic Stippling Microcytosis Macrocytosis Pappenheimer Bodies Target Cells Tear Drop Cells Ovalocytes [place] Cells Acanthocytes (Spur) Smear Tech's Comments Smear Path Review ESR PT INR APTT aPTT Heparin Protocol D-Dimer High Sensitivty O2 Saturation ABG pH at Pt Temp ABG pH (Temp Correct) ABG pCO2 at Pt Temp ABG pCO2 (Temp Corrct ABG pO2 at Pt Temp ABG pO2 (Temp Correct ABG HCO3 ABG Base Excess (Actual) VBG pH VBG pCO2 VBG pO2 VBG HCO3 VBG O2 Saturation VBG Base Excess Sodium 136 Potassium 3.2 L Chloride 99 Carbon Dioxide 25 Anion Gap 15 BUN 52 H Creatinine 3.27 H Estim Creat Clear Calc 21.6 Estimated GFR 15 POC Glucose 131 H Random Glucose 142 H Lactic Acid Lactic Acid F/U @ 2Hr Calcium 8.0 L Phosphorus 5.3 H Magnesium 1.8 Ferritin Total Bilirubin Direct Bilirubin AST ALT Alkaline Phosphatase Ammonia Lactate Dehydrogenase Troponin I High Sens C-Reactive Protein B-Natriuretic Peptide Total Protein Albumin Procalcitonin Urine Color Urine Appearance Urine pH Ur Specific [place] Urine Protein Urine Glucose (UA) Urine Ketones Urine Blood Urine Nitrite Ur Leukocyte Esterase Urine RBC Urine WBC Ur Squamous Epith Cells Ur Renal Epithelial Cell Urine Bacteria Urine Yeast Nasal Screen MRSA (PCR) Nasal S. aureus Screen Nasal MRSA/S.aureus Interp Stool Occult Blood Stool Leukocytes, Qual Vancomycin Trough Random Vancomycin Urine Opiates Screen Urine Fentanyl Screen Ur Barbiturates Screen Ur Phencyclidine Scrn Ur Amphetamines Screen U Benzodiazepines Scrn Urine Cocaine Screen U Marijuana (THC) Screen C. difficile Tox B Gene COVID-19 ([facility]) COVID-19 Clin Com Hepatitis A IgM Ab Hep Bs Antigen Hep Bs Antibody Hep B Core Total Ab Hepatitis C Ab (EIA) HIV 1&2 Ab/P24 Ag 4thGn Ur L.pneumophila Ag SARS-CoV-2 IgG Ab Blood Type Antibody Screen Antigen Identification Crossmatch Crossmatch (AHG) 04/01/21 04/01/21 04/01/21 05:30 05:30 05:30 WBC RBC Hgb Hct MCV MCH MCHC RDW Plt Count MPV Immature Gran % (Auto) Neut % (Auto) Lymph % (Auto) [place] % (Auto) Eos % (Auto) Baso % (Auto) Lymph # (Auto) [place] # (Auto) Eos # (Auto) Baso # (Auto) Abs Immat Gran (auto) Absolute Neuts (auto) Absolute Nucleated RBC Nucleated RBC % (auto) Neutrophils % (Manual) Band Neutrophils % Lymphocytes % (Manual) Atypical Lymphs % (Man) Monocytes % (Manual) Eosinophils % (Manual) Basophils % (Manual) Metamyelocytes % Myelocytes % Abs Neuts (Manual) Lymphocytes # (Manual) Atyp Lymphs # (Manual) Monocytes # (Manual) Eosinophils # (Manual) Basophils # (Manual) Metamyelocytes # Myelocytes # Nucleated RBCs Smudge Cells Dohle Bodies Platelet Estimate Large Platelets Plt Morphology Comment RBC Morphology Polychromasia Hypochromasia Basophilic Stippling Microcytosis Macrocytosis Pappenheimer Bodies Target Cells Tear Drop Cells Ovalocytes Abi Cells Acanthocytes (Spur) Smear Tech's Comments Smear Path Review ESR PT INR APTT aPTT Heparin Protocol D-Dimer High Sensitivty 2021 O2 Saturation ABG pH at Pt Temp ABG pH (Temp Correct) ABG pCO2 at Pt Temp ABG pCO2 (Temp Corrct ABG pO2 at Pt Temp ABG pO2 (Temp Correct ABG HCO3 ABG Base Excess (Actual) VBG pH VBG pCO2 VBG pO2 VBG HCO3 VBG O2 Saturation VBG Base Excess Sodium 134 L Potassium 3.6 Chloride 99 Carbon Dioxide 20 L Anion Gap 19 BUN 55 H Creatinine 3.66 H Estim Creat Clear Calc 19.4 Estimated GFR 13 POC Glucose Random Glucose 130 H Lactic Acid Lactic Acid F/U @ 2Hr Calcium 7.8 L Phosphorus 5.0 H Magnesium 1.8 Ferritin 2340 H Total Bilirubin Direct Bilirubin AST ALT Alkaline Phosphatase Ammonia Lactate Dehydrogenase 550 H Troponin I High Sens C-Reactive Protein 13.26 H B-Natriuretic Peptide Total Protein Albumin 2.3 L Cancelled Procalcitonin Urine Color Urine Appearance Urine pH Ur Specific [place] Urine Protein Urine Glucose (UA) Urine Ketones Urine Blood Urine Nitrite Ur Leukocyte Esterase Urine RBC Urine WBC Ur Squamous Epith Cells Ur Renal Epithelial Cell Urine Bacteria Urine Yeast Nasal Screen MRSA (PCR) Nasal S. aureus Screen Nasal MRSA/S.aureus Interp Stool Occult Blood Stool Leukocytes, Qual Vancomycin Trough Random Vancomycin Urine Opiates Screen Urine Fentanyl Screen Ur Barbiturates Screen Ur Phencyclidine Scrn Ur Amphetamines Screen U Benzodiazepines Scrn Urine Cocaine Screen U Marijuana (THC) Screen C. difficile Tox B Gene COVID-19 ([facility]) COVID-19 Clin Com Hepatitis A IgM Ab Hep Bs Antigen Hep Bs Antibody Hep B Core Total Ab Hepatitis C Ab (EIA) HIV 1&2 Ab/P24 Ag 4thGn Ur L.pneumophila Ag SARS-CoV-2 IgG Ab Blood Type Antibody Screen Antigen Identification Crossmatch Crossmatch (AHG) 04/01/21 04/01/21 04/01/21 05:34 06:44 11:51 WBC RBC Hgb Hct MCV MCH MCHC RDW Plt Count MPV Immature Gran % (Auto) Neut % (Auto) Lymph % (Auto) [place] % (Auto) Eos % (Auto) Baso % (Auto) Lymph # (Auto) [place] # (Auto) Eos # (Auto) Baso # (Auto) Abs Immat Gran (auto) Absolute Neuts (auto) Absolute Nucleated RBC Nucleated RBC % (auto) Neutrophils % (Manual) Band Neutrophils % Lymphocytes % (Manual) Atypical Lymphs % (Man) Monocytes % (Manual) Eosinophils % (Manual) Basophils % (Manual) Metamyelocytes % Myelocytes % Abs Neuts (Manual) Lymphocytes # (Manual) Atyp Lymphs # (Manual) Monocytes # (Manual) Eosinophils # (Manual) Basophils # (Manual) Metamyelocytes # Myelocytes # Nucleated RBCs Smudge Cells Dohle Bodies Platelet Estimate Large Platelets Plt Morphology Comment RBC Morphology Polychromasia Hypochromasia Basophilic Stippling Microcytosis Macrocytosis Pappenheimer Bodies Target Cells Tear Drop Cells Ovalocytes Abi Cells Acanthocytes (Spur) Smear Tech's Comments Smear Path Review ESR PT INR APTT aPTT Heparin Protocol D-Dimer High Sensitivty O2 Saturation ABG pH at Pt Temp ABG pH (Temp Correct) ABG pCO2 at Pt Temp ABG pCO2 (Temp Corrct ABG pO2 at Pt Temp ABG pO2 (Temp Correct ABG HCO3 ABG Base Excess (Actual) VBG pH 7.49 H VBG pCO2 29 VBG pO2 41 VBG HCO3 23 VBG O2 Saturation 69.0 VBG Base Excess 0.3 Sodium Potassium Chloride Carbon Dioxide Anion Gap BUN Creatinine Estim Creat Clear Calc Estimated GFR POC Glucose 158 H Random Glucose Lactic Acid Lactic Acid F/U @ 2Hr Calcium Phosphorus Magnesium Ferritin Total Bilirubin Direct Bilirubin AST ALT Alkaline Phosphatase Ammonia Lactate Dehydrogenase Troponin I High Sens C-Reactive Protein B-Natriuretic Peptide Total Protein Albumin Procalcitonin Urine Color Urine Appearance Urine pH Ur Specific [place] Urine Protein Urine Glucose (UA) Urine Ketones Urine Blood Urine Nitrite Ur Leukocyte Esterase Urine RBC Urine WBC Ur Squamous Epith Cells Ur Renal Epithelial Cell Urine Bacteria Urine Yeast Nasal Screen MRSA (PCR) Nasal S. aureus Screen Nasal MRSA/S.aureus Interp Stool Occult Blood Stool Leukocytes, Qual Vancomycin Trough Random Vancomycin Urine Opiates Screen Urine Fentanyl Screen Ur Barbiturates Screen Ur Phencyclidine Scrn Ur Amphetamines Screen U Benzodiazepines Scrn Urine Cocaine Screen U Marijuana (THC) Screen C. difficile Tox B Gene COVID-19 ([facility]) COVID-19 Clin Com Hepatitis A IgM Ab Hep Bs Antigen Hep Bs Antibody Hep B Core Total Ab Hepatitis C Ab (EIA) HIV 1&2 Ab/P24 Ag 4thGn Ur L.pneumophila Ag SARS-CoV-2 IgG Ab Blood Type O Negative Antibody Screen NEGATIVE Antigen Identification c Antigen - POSITIVE Crossmatch See Detail Crossmatch (AHG) See Detail 04/01/21 04/01/21 04/02/21 17:46 23:53 05:22 WBC 6.5 RBC 2.97 L D Hgb 8.1 L Hct 25.7 L MCV 86.5 MCH 27.3 MCHC 31.5 RDW 18.0 H Plt Count 177 D MPV 11.6 Immature Gran % (Auto) 0.2 Neut % (Auto) 78.6 H Lymph % (Auto) 7.4 L [place] % (Auto) 13.6 H Eos % (Auto) 0.0 Baso % (Auto) 0.2 Lymph # (Auto) 0.5 L [place] # (Auto) 0.9 Eos # (Auto) 0.0 Baso # (Auto) 0.0 Abs Immat Gran (auto) 0.01 Absolute Neuts (auto) 5.1 Absolute Nucleated RBC 0.050 H Nucleated RBC % (auto) 0.8 H Neutrophils % (Manual) Band Neutrophils % Lymphocytes % (Manual) Atypical Lymphs % (Man) Monocytes % (Manual) Eosinophils % (Manual) Basophils % (Manual) Metamyelocytes % Myelocytes % Abs Neuts (Manual) Lymphocytes # (Manual) Atyp Lymphs # (Manual) Monocytes # (Manual) Eosinophils # (Manual) Basophils # (Manual) Metamyelocytes # Myelocytes # Nucleated RBCs Smudge Cells Dohle Bodies Platelet Estimate Large Platelets Plt Morphology Comment RBC Morphology Polychromasia Hypochromasia Basophilic Stippling Microcytosis Macrocytosis Pappenheimer Bodies Target Cells Tear Drop Cells Ovalocytes Abi Cells Acanthocytes (Spur) Smear Tech's Comments VERIFIED Smear Path Review ESR PT INR APTT aPTT Heparin Protocol D-Dimer High Sensitivty O2 Saturation ABG pH at Pt Temp ABG pH (Temp Correct) ABG pCO2 at Pt Temp ABG pCO2 (Temp Corrct ABG pO2 at Pt Temp ABG pO2 (Temp Correct ABG HCO3 ABG Base Excess (Actual) VBG pH VBG pCO2 VBG pO2 VBG HCO3 VBG O2 Saturation VBG Base Excess Sodium Potassium Chloride Carbon Dioxide Anion Gap BUN Creatinine Estim Creat Clear Calc Estimated GFR POC Glucose 150 H 137 H Random Glucose Lactic Acid Lactic Acid F/U @ 2Hr Calcium Phosphorus Magnesium Ferritin Total Bilirubin Direct Bilirubin AST ALT Alkaline Phosphatase Ammonia Lactate Dehydrogenase Troponin I High Sens C-Reactive Protein B-Natriuretic Peptide Total Protein Albumin Procalcitonin Urine Color Urine Appearance Urine pH Ur Specific [place] Urine Protein Urine Glucose (UA) Urine Ketones Urine Blood Urine Nitrite Ur Leukocyte Esterase Urine RBC Urine WBC Ur Squamous Epith Cells Ur Renal Epithelial Cell Urine Bacteria Urine Yeast Nasal Screen MRSA (PCR) Nasal S. aureus Screen Nasal MRSA/S.aureus Interp Stool Occult Blood Stool Leukocytes, Qual Vancomycin Trough Random Vancomycin Urine Opiates Screen Urine Fentanyl Screen Ur Barbiturates Screen Ur Phencyclidine Scrn Ur Amphetamines Screen U Benzodiazepines Scrn Urine Cocaine Screen U Marijuana (THC) Screen C. difficile Tox B Gene COVID-19 ([facility]) COVID-19 Clin Com Hepatitis A IgM Ab Hep Bs Antigen Hep Bs Antibody Hep B Core Total Ab Hepatitis C Ab (EIA) HIV 1&2 Ab/P24 Ag 4thGn Ur L.pneumophila Ag SARS-CoV-2 IgG Ab Blood Type Antibody Screen Antigen Identification Crossmatch Crossmatch (AHG) 04/02/21 04/02/21 04/02/21 05:22 05:22 05:26 WBC RBC Hgb Hct MCV MCH MCHC RDW Plt Count MPV Immature Gran % (Auto) Neut % (Auto) Lymph % (Auto) [place] % (Auto) Eos % (Auto) Baso % (Auto) Lymph # (Auto) [place] # (Auto) Eos # (Auto) Baso # (Auto) Abs Immat Gran (auto) Absolute Neuts (auto) Absolute Nucleated RBC Nucleated RBC % (auto) Neutrophils % (Manual) Band Neutrophils % Lymphocytes % (Manual) Atypical Lymphs % (Man) Monocytes % (Manual) Eosinophils % (Manual) Basophils % (Manual) Metamyelocytes % Myelocytes % Abs Neuts (Manual) Lymphocytes # (Manual) Atyp Lymphs # (Manual) Monocytes # (Manual) Eosinophils # (Manual) Basophils # (Manual) Metamyelocytes # Myelocytes # Nucleated RBCs Smudge Cells Dohle Bodies Platelet Estimate Large Platelets Plt Morphology Comment RBC Morphology Polychromasia Hypochromasia Basophilic Stippling Microcytosis Macrocytosis Pappenheimer Bodies Target Cells Tear Drop Cells Ovalocytes Abi Cells Acanthocytes (Spur) Smear Tech's Comments Smear Path Review ESR PT INR APTT aPTT Heparin Protocol D-Dimer High Sensitivty O2 Saturation ABG pH at Pt Temp ABG pH (Temp Correct) ABG pCO2 at Pt Temp ABG pCO2 (Temp Corrct ABG pO2 at Pt Temp ABG pO2 (Temp Correct ABG HCO3 ABG Base Excess (Actual) VBG pH 7.49 H VBG pCO2 24 VBG pO2 40 VBG HCO3 19 L VBG O2 Saturation 66.0 VBG Base Excess -2.5 Sodium 133 L Potassium 3.3 Chloride 98 Carbon Dioxide 19 L Anion Gap 19 BUN 70 H Creatinine 4.41 H* Estim Creat Clear Calc 16.1 Estimated GFR 10 POC Glucose Random Glucose 135 H Lactic Acid Lactic Acid F/U @ 2Hr Calcium 8.1 L Phosphorus 5.1 H Magnesium 1.8 Ferritin Total Bilirubin Direct Bilirubin AST ALT Alkaline Phosphatase Ammonia Lactate Dehydrogenase Troponin I High Sens C-Reactive Protein B-Natriuretic Peptide Total Protein Albumin 2.4 L Cancelled Procalcitonin Urine Color Urine Appearance Urine pH Ur Specific [place] Urine Protein Urine Glucose (UA) Urine Ketones Urine Blood Urine Nitrite Ur Leukocyte Esterase Urine RBC Urine WBC Ur Squamous Epith Cells Ur Renal Epithelial Cell Urine Bacteria Urine Yeast Nasal Screen MRSA (PCR) Nasal S. aureus Screen Nasal MRSA/S.aureus Interp Stool Occult Blood Stool Leukocytes, Qual Vancomycin Trough Random Vancomycin Urine Opiates Screen Urine Fentanyl Screen Ur Barbiturates Screen Ur Phencyclidine Scrn Ur Amphetamines Screen U Benzodiazepines Scrn Urine Cocaine Screen U Marijuana (THC) Screen C. difficile Tox B Gene COVID-19 ([facility]) COVID-19 Clin Com Hepatitis A IgM Ab Hep Bs Antigen Hep Bs Antibody Hep B Core Total Ab Hepatitis C Ab (EIA) HIV 1&2 Ab/P24 Ag 4thGn Ur L.pneumophila Ag SARS-CoV-2 IgG Ab Blood Type Antibody Screen Antigen Identification Crossmatch Crossmatch (AHG) 04/02/21 04/02/21 04/02/21 06:03 11:44 17:33 WBC RBC Hgb Hct MCV MCH MCHC RDW Plt Count MPV Immature Gran % (Auto) Neut % (Auto) Lymph % (Auto) [place] % (Auto) Eos % (Auto) Baso % (Auto) Lymph # (Auto) [place] # (Auto) Eos # (Auto) Baso # (Auto) Abs Immat Gran (auto) Absolute Neuts (auto) Absolute Nucleated RBC Nucleated RBC % (auto) Neutrophils % (Manual) Band Neutrophils % Lymphocytes % (Manual) Atypical Lymphs % (Man) Monocytes % (Manual) Eosinophils % (Manual) Basophils % (Manual) Metamyelocytes % Myelocytes % Abs Neuts (Manual) Lymphocytes # (Manual) Atyp Lymphs # (Manual) Monocytes # (Manual) Eosinophils # (Manual) Basophils # (Manual) Metamyelocytes # Myelocytes # Nucleated RBCs Smudge Cells Dohle Bodies Platelet Estimate Large Platelets Plt Morphology Comment RBC Morphology Polychromasia Hypochromasia Basophilic Stippling Microcytosis Macrocytosis Pappenheimer Bodies Target Cells Tear Drop Cells Ovalocytes Abi Cells Acanthocytes (Spur) Smear Tech's Comments Smear Path Review ESR PT INR APTT aPTT Heparin Protocol D-Dimer High Sensitivty O2 Saturation ABG pH at Pt Temp ABG pH (Temp Correct) ABG pCO2 at Pt Temp ABG pCO2 (Temp Corrct ABG pO2 at Pt Temp ABG pO2 (Temp Correct ABG HCO3 ABG Base Excess (Actual) VBG pH VBG pCO2 VBG pO2 VBG HCO3 VBG O2 Saturation VBG Base Excess Sodium Potassium Chloride Carbon Dioxide Anion Gap BUN Creatinine Estim Creat Clear Calc Estimated GFR POC Glucose 138 H 136 H 119 H Random Glucose Lactic Acid Lactic Acid F/U @ 2Hr Calcium Phosphorus Magnesium Ferritin Total Bilirubin Direct Bilirubin AST ALT Alkaline Phosphatase Ammonia Lactate Dehydrogenase Troponin I High Sens C-Reactive Protein B-Natriuretic Peptide Total Protein Albumin Procalcitonin Urine Color Urine Appearance Urine pH Ur Specific [place] Urine Protein Urine Glucose (UA) Urine Ketones Urine Blood Urine Nitrite Ur Leukocyte Esterase Urine RBC Urine WBC Ur Squamous Epith Cells Ur Renal Epithelial Cell Urine Bacteria Urine Yeast Nasal Screen MRSA (PCR) Nasal S. aureus Screen Nasal MRSA/S.aureus Interp Stool Occult Blood Stool Leukocytes, Qual Vancomycin Trough Random Vancomycin Urine Opiates Screen Urine Fentanyl Screen Ur Barbiturates Screen Ur Phencyclidine Scrn Ur Amphetamines Screen U Benzodiazepines Scrn Urine Cocaine Screen U Marijuana (THC) Screen C. difficile Tox B Gene COVID-19 ([facility]) COVID-19 Clin Com Hepatitis A IgM Ab Hep Bs Antigen Hep Bs Antibody Hep B Core Total Ab Hepatitis C Ab (EIA) HIV 1&2 Ab/P24 Ag 4thGn Ur L.pneumophila Ag SARS-CoV-2 IgG Ab Blood Type Antibody Screen Antigen Identification Crossmatch Crossmatch (AHG) 04/02/21 04/02/21 04/03/21 17:45 23:40 05:45 WBC RBC Hgb Hct MCV MCH MCHC RDW Plt Count MPV Immature Gran % (Auto) Neut % (Auto) Lymph % (Auto) [place] % (Auto) Eos % (Auto) Baso % (Auto) Lymph # (Auto) [place] # (Auto) Eos # (Auto) Baso # (Auto) Abs Immat Gran (auto) Absolute Neuts (auto) Absolute Nucleated RBC Nucleated RBC % (auto) Neutrophils % (Manual) Band Neutrophils % Lymphocytes % (Manual) Atypical Lymphs % (Man) Monocytes % (Manual) Eosinophils % (Manual) Basophils % (Manual) Metamyelocytes % Myelocytes % Abs Neuts (Manual) Lymphocytes # (Manual) Atyp Lymphs # (Manual) Monocytes # (Manual) Eosinophils # (Manual) Basophils # (Manual) Metamyelocytes # Myelocytes # Nucleated RBCs Smudge Cells Dohle Bodies Platelet Estimate Large Platelets Plt Morphology Comment RBC Morphology Polychromasia Hypochromasia Basophilic Stippling Microcytosis Macrocytosis Pappenheimer Bodies Target Cells Tear Drop Cells Ovalocytes [place] Cells Acanthocytes (Spur) Smear Tech's Comments Smear Path Review ESR PT INR APTT aPTT Heparin Protocol D-Dimer High Sensitivty O2 Saturation ABG pH at Pt Temp ABG pH (Temp Correct) ABG pCO2 at Pt Temp ABG pCO2 (Temp Corrct ABG pO2 at Pt Temp ABG pO2 (Temp Correct ABG HCO3 ABG Base Excess (Actual) VBG pH VBG pCO2 VBG pO2 VBG HCO3 VBG O2 Saturation VBG Base Excess Sodium 134 L Potassium 3.3 Chloride 98 Carbon Dioxide 22 Anion Gap 17 BUN 47 H Creatinine 3.38 H Estim Creat Clear Calc 21.7 Estimated GFR 14 POC Glucose 110 Random Glucose 127 H Lactic Acid Lactic Acid F/U @ 2Hr Calcium 8.2 L Phosphorus 4.0 Magnesium 1.7 Ferritin Total Bilirubin Direct Bilirubin AST ALT Alkaline Phosphatase Ammonia Lactate Dehydrogenase Troponin I High Sens C-Reactive Protein B-Natriuretic Peptide Total Protein Albumin 2.5 L Procalcitonin Urine Color Urine Appearance Urine pH Ur Specific [place] Urine Protein Urine Glucose (UA) Urine Ketones Urine Blood Urine Nitrite Ur Leukocyte Esterase Urine RBC Urine WBC Ur Squamous Epith Cells Ur Renal Epithelial Cell Urine Bacteria Urine Yeast Nasal Screen MRSA (PCR) Nasal S. aureus Screen Nasal MRSA/S.aureus Interp Stool Occult Blood Stool Leukocytes, Qual Vancomycin Trough Random Vancomycin Urine Opiates Screen Urine Fentanyl Screen Ur Barbiturates Screen Ur Phencyclidine Scrn Ur Amphetamines Screen U Benzodiazepines Scrn Urine Cocaine Screen U Marijuana (THC) Screen C. difficile Tox B Gene COVID-19 ([facility]) Negative COVID-19 Clin Com See Note Hepatitis A IgM Ab Hep Bs Antigen Hep Bs Antibody Hep B Core Total Ab Hepatitis C Ab (EIA) HIV 1&2 Ab/P24 Ag 4thGn Ur L.pneumophila Ag SARS-CoV-2 IgG Ab Blood Type Antibody Screen Antigen Identification Crossmatch Crossmatch (AHG) 04/03/21 04/03/21 04/03/21 05:45 05:45 05:45 WBC 7.6 RBC 2.64 L Hgb 7.2 L Hct 23.5 L MCV 89.0 MCH 27.3 MCHC 30.6 L RDW 17.7 H Plt Count 176 MPV 11.2 Immature Gran % (Auto) Cancelled Neut % (Auto) Cancelled Lymph % (Auto) Cancelled [place] % (Auto) Cancelled Eos % (Auto) Cancelled Baso % (Auto) Cancelled Lymph # (Auto) Cancelled [place] # (Auto) Cancelled Eos # (Auto) Cancelled Baso # (Auto) Cancelled Abs Immat Gran (auto) Cancelled Absolute Neuts (auto) Cancelled Absolute Nucleated RBC 0.020 H Nucleated RBC % (auto) 0.3 H Neutrophils % (Manual) 65 Band Neutrophils % 17 H Lymphocytes % (Manual) 10 L Atypical Lymphs % (Man) Monocytes % (Manual) 7 Eosinophils % (Manual) Basophils % (Manual) 1 Metamyelocytes % Myelocytes % Abs Neuts (Manual) 6.2 Lymphocytes # (Manual) 0.8 L Atyp Lymphs # (Manual) Monocytes # (Manual) 0.5 Eosinophils # (Manual) Basophils # (Manual) 0.1 Metamyelocytes # Myelocytes # Nucleated RBCs Smudge Cells Dohle Bodies PRESENT Platelet Estimate NORMAL Large Platelets Plt Morphology Comment NORMAL RBC Morphology NOTED Polychromasia 1+ (0-2) Hypochromasia 2+ (15-30) Basophilic Stippling 1+ (0-2) Microcytosis Macrocytosis Pappenheimer Bodies Target Cells Tear Drop Cells Ovalocytes 1+ (5-14) Abi Cells 1+ (0-2) Acanthocytes (Spur) Smear Tech's Comments Smear Path Review ESR PT INR APTT aPTT Heparin Protocol D-Dimer High Sensitivty O2 Saturation ABG pH at Pt Temp ABG pH (Temp Correct) ABG pCO2 at Pt Temp ABG pCO2 (Temp Corrct ABG pO2 at Pt Temp ABG pO2 (Temp Correct ABG HCO3 ABG Base Excess (Actual) VBG pH 7.49 H VBG pCO2 30 VBG pO2 46 VBG HCO3 23 VBG O2 Saturation 78.0 VBG Base Excess 1.1 Sodium Potassium Chloride Carbon Dioxide Anion Gap BUN Creatinine Estim Creat Clear Calc Estimated GFR POC Glucose Random Glucose Lactic Acid Lactic Acid F/U @ 2Hr Calcium Cancelled Phosphorus Cancelled Magnesium Cancelled Ferritin Total Bilirubin Direct Bilirubin AST ALT Alkaline Phosphatase Ammonia Lactate Dehydrogenase Troponin I High Sens C-Reactive Protein B-Natriuretic Peptide Total Protein Albumin Procalcitonin Urine Color Urine Appearance Urine pH Ur Specific [place] Urine Protein Urine Glucose (UA) Urine Ketones Urine Blood Urine Nitrite Ur Leukocyte Esterase Urine RBC Urine WBC Ur Squamous Epith Cells Ur Renal Epithelial Cell Urine Bacteria Urine Yeast Nasal Screen MRSA (PCR) Nasal S. aureus Screen Nasal MRSA/S.aureus Interp Stool Occult Blood Stool Leukocytes, Qual Vancomycin Trough Random Vancomycin Urine Opiates Screen Urine Fentanyl Screen Ur Barbiturates Screen Ur Phencyclidine Scrn Ur Amphetamines Screen U Benzodiazepines Scrn Urine Cocaine Screen U Marijuana (THC) Screen C. difficile Tox B Gene COVID-19 ([facility]) COVID-19 Clin Com Hepatitis A IgM Ab Hep Bs Antigen Hep Bs Antibody Hep B Core Total Ab Hepatitis C Ab (EIA) HIV 1&2 Ab/P24 Ag 4thGn Ur L.pneumophila Ag SARS-CoV-2 IgG Ab Blood Type Antibody Screen Antigen Identification Crossmatch Crossmatch (AHG) 04/03/21 04/03/21 04/03/21 11:38 12:00 18:09 WBC RBC Hgb Hct MCV MCH MCHC RDW Plt Count MPV Immature Gran % (Auto) Neut % (Auto) Lymph % (Auto) [place] % (Auto) Eos % (Auto) Baso % (Auto) Lymph # (Auto) [place] # (Auto) Eos # (Auto) Baso # (Auto) Abs Immat Gran (auto) Absolute Neuts (auto) Absolute Nucleated RBC Nucleated RBC % (auto) Neutrophils % (Manual) Band Neutrophils % Lymphocytes % (Manual) Atypical Lymphs % (Man) Monocytes % (Manual) Eosinophils % (Manual) Basophils % (Manual) Metamyelocytes % Myelocytes % Abs Neuts (Manual) Lymphocytes # (Manual) Atyp Lymphs # (Manual) Monocytes # (Manual) Eosinophils # (Manual) Basophils # (Manual) Metamyelocytes # Myelocytes # Nucleated RBCs Smudge Cells Dohle Bodies Platelet Estimate Large Platelets Plt Morphology Comment RBC Morphology Polychromasia Hypochromasia Basophilic Stippling Microcytosis Macrocytosis Pappenheimer Bodies Target Cells Tear Drop Cells Ovalocytes Abi Cells Acanthocytes (Spur) Smear Tech's Comments Smear Path Review ESR PT INR APTT aPTT Heparin Protocol D-Dimer High Sensitivty O2 Saturation ABG pH at Pt Temp ABG pH (Temp Correct) ABG pCO2 at Pt Temp ABG pCO2 (Temp Corrct ABG pO2 at Pt Temp ABG pO2 (Temp Correct ABG HCO3 ABG Base Excess (Actual) VBG pH VBG pCO2 VBG pO2 VBG HCO3 VBG O2 Saturation VBG Base Excess Sodium Potassium Chloride Carbon Dioxide Anion Gap BUN Creatinine Estim Creat Clear Calc Estimated GFR POC Glucose 144 H 124 H Random Glucose Lactic Acid Lactic Acid F/U @ 2Hr Calcium Phosphorus Magnesium Ferritin Total Bilirubin Direct Bilirubin AST ALT Alkaline Phosphatase Ammonia Lactate Dehydrogenase Troponin I High Sens C-Reactive Protein B-Natriuretic Peptide Total Protein Albumin Procalcitonin Urine Color Urine Appearance Urine pH Ur Specific [place] Urine Protein Urine Glucose (UA) Urine Ketones Urine Blood Urine Nitrite Ur Leukocyte Esterase Urine RBC Urine WBC Ur Squamous Epith Cells Ur Renal Epithelial Cell Urine Bacteria Urine Yeast Nasal Screen MRSA (PCR) Nasal S. aureus Screen Nasal MRSA/S.aureus Interp Stool Occult Blood Stool Leukocytes, Qual Vancomycin Trough Random Vancomycin 13.7 L Urine Opiates Screen Urine Fentanyl Screen Ur Barbiturates Screen Ur Phencyclidine Scrn Ur Amphetamines Screen U Benzodiazepines Scrn Urine Cocaine Screen U Marijuana (THC) Screen C. difficile Tox B Gene COVID-19 ([facility]) COVID-19 Clin Com Hepatitis A IgM Ab Hep Bs Antigen Hep Bs Antibody Hep B Core Total Ab Hepatitis C Ab (EIA) HIV 1&2 Ab/P24 Ag 4thGn Ur L.pneumophila Ag SARS-CoV-2 IgG Ab Blood Type Antibody Screen Antigen Identification Crossmatch Crossmatch (AHG) 04/04/21 04/04/21 04/04/21 00:10 05:24 05:24 WBC 7.8 RBC 2.50 L Hgb 6.9 L* Hct 22.0 L MCV 88.0 MCH 27.6 MCHC 31.4 RDW 17.2 H Plt Count 187 MPV 10.2 Immature Gran % (Auto) 0.5 H Neut % (Auto) 79.7 H Lymph % (Auto) 8.9 L [place] % (Auto) 10.9 Eos % (Auto) 0.0 Baso % (Auto) 0.0 Lymph # (Auto) 0.7 L [place] # (Auto) 0.9 Eos # (Auto) 0.0 Baso # (Auto) 0.0 Abs Immat Gran (auto) 0.04 H Absolute Neuts (auto) 6.2 Absolute Nucleated RBC 0.000 Nucleated RBC % (auto) 0.0 Neutrophils % (Manual) Band Neutrophils % Lymphocytes % (Manual) Atypical Lymphs % (Man) Monocytes % (Manual) Eosinophils % (Manual) Basophils % (Manual) Metamyelocytes % Myelocytes % Abs Neuts (Manual) Lymphocytes # (Manual) Atyp Lymphs # (Manual) Monocytes # (Manual) Eosinophils # (Manual) Basophils # (Manual) Metamyelocytes # Myelocytes # Nucleated RBCs Smudge Cells Dohle Bodies Platelet Estimate Large Platelets Plt Morphology Comment RBC Morphology Polychromasia Hypochromasia Basophilic Stippling Microcytosis Macrocytosis Pappenheimer Bodies Target Cells Tear Drop Cells Ovalocytes [place] Cells Acanthocytes (Spur) Smear Tech's Comments Smear Path Review ESR PT INR APTT aPTT Heparin Protocol D-Dimer High Sensitivty O2 Saturation ABG pH at Pt Temp ABG pH (Temp Correct) ABG pCO2 at Pt Temp ABG pCO2 (Temp Corrct ABG pO2 at Pt Temp ABG pO2 (Temp Correct ABG HCO3 ABG Base Excess (Actual) VBG pH VBG pCO2 VBG pO2 VBG HCO3 VBG O2 Saturation VBG Base Excess Sodium 136 Potassium 3.4 Chloride 100 Carbon Dioxide 22 Anion Gap 17 BUN 57 H Creatinine 4.05 H* Estim Creat Clear Calc 17.9 Estimated GFR 11 POC Glucose 112 Random Glucose 110 Lactic Acid Lactic Acid F/U @ 2Hr Calcium 8.1 L Phosphorus 5.4 H Magnesium 1.6 Ferritin Total Bilirubin Direct Bilirubin AST ALT Alkaline Phosphatase Ammonia Lactate Dehydrogenase Troponin I High Sens C-Reactive Protein B-Natriuretic Peptide Total Protein Albumin Procalcitonin Urine Color Urine Appearance Urine pH Ur Specific [place] Urine Protein Urine Glucose (UA) Urine Ketones Urine Blood Urine Nitrite Ur Leukocyte Esterase Urine RBC Urine WBC Ur Squamous Epith Cells Ur Renal Epithelial Cell Urine Bacteria Urine Yeast Nasal Screen MRSA (PCR) Nasal S. aureus Screen Nasal MRSA/S.aureus Interp Stool Occult Blood Stool Leukocytes, Qual Vancomycin Trough Random Vancomycin Urine Opiates Screen Urine Fentanyl Screen Ur Barbiturates Screen Ur Phencyclidine Scrn Ur Amphetamines Screen U Benzodiazepines Scrn Urine Cocaine Screen U Marijuana (THC) Screen C. difficile Tox B Gene COVID-19 ([facility]) COVID-19 Clin Com Hepatitis A IgM Ab Hep Bs Antigen Hep Bs Antibody Hep B Core Total Ab Hepatitis C Ab (EIA) HIV 1&2 Ab/P24 Ag 4thGn Ur L.pneumophila Ag SARS-CoV-2 IgG Ab Blood Type Antibody Screen Antigen Identification Crossmatch Crossmatch (AHG) 04/04/21 04/04/21 04/04/21 05:28 05:37 12:14 WBC RBC Hgb Hct MCV MCH MCHC RDW Plt Count MPV Immature Gran % (Auto) Neut % (Auto) Lymph % (Auto) [place] % (Auto) Eos % (Auto) Baso % (Auto) Lymph # (Auto) [place] # (Auto) Eos # (Auto) Baso # (Auto) Abs Immat Gran (auto) Absolute Neuts (auto) Absolute Nucleated RBC Nucleated RBC % (auto) Neutrophils % (Manual) Band Neutrophils % Lymphocytes % (Manual) Atypical Lymphs % (Man) Monocytes % (Manual) Eosinophils % (Manual) Basophils % (Manual) Metamyelocytes % Myelocytes % Abs Neuts (Manual) Lymphocytes # (Manual) Atyp Lymphs # (Manual) Monocytes # (Manual) Eosinophils # (Manual) Basophils # (Manual) Metamyelocytes # Myelocytes # Nucleated RBCs Smudge Cells Dohle Bodies Platelet Estimate Large Platelets Plt Morphology Comment RBC Morphology Polychromasia Hypochromasia Basophilic Stippling Microcytosis Macrocytosis Pappenheimer Bodies Target Cells Tear Drop Cells Ovalocytes Abi Cells Acanthocytes (Spur) Smear Tech's Comments Smear Path Review ESR PT INR APTT aPTT Heparin Protocol D-Dimer High Sensitivty O2 Saturation ABG pH at Pt Temp ABG pH (Temp Correct) ABG pCO2 at Pt Temp ABG pCO2 (Temp Corrct ABG pO2 at Pt Temp ABG pO2 (Temp Correct ABG HCO3 ABG Base Excess (Actual) VBG pH 7.46 H VBG pCO2 29 VBG pO2 44 VBG HCO3 21 L VBG O2 Saturation 73.0 VBG Base Excess -1.9 Sodium Potassium Chloride Carbon Dioxide Anion Gap BUN Creatinine Estim Creat Clear Calc Estimated GFR POC Glucose 112 Random Glucose Lactic Acid Lactic Acid F/U @ 2Hr Calcium Phosphorus Magnesium Ferritin Total Bilirubin Direct Bilirubin AST ALT Alkaline Phosphatase Ammonia Lactate Dehydrogenase Troponin I High Sens C-Reactive Protein B-Natriuretic Peptide Total Protein Albumin Procalcitonin Urine Color Urine Appearance Urine pH Ur Specific [place] Urine Protein Urine Glucose (UA) Urine Ketones Urine Blood Urine Nitrite Ur Leukocyte Esterase Urine RBC Urine WBC Ur Squamous Epith Cells Ur Renal Epithelial Cell Urine Bacteria Urine Yeast Nasal Screen MRSA (PCR) Nasal S. aureus Screen Nasal MRSA/S.aureus Interp Stool Occult Blood Stool Leukocytes, Qual Vancomycin Trough Random Vancomycin 17.0 Urine Opiates Screen Urine Fentanyl Screen Ur Barbiturates Screen Ur Phencyclidine Scrn Ur Amphetamines Screen U Benzodiazepines Scrn Urine Cocaine Screen U Marijuana (THC) Screen C. difficile Tox B Gene COVID-19 ([facility]) COVID-19 Clin Com Hepatitis A IgM Ab Hep Bs Antigen Hep Bs Antibody Hep B Core Total Ab Hepatitis C Ab (EIA) HIV 1&2 Ab/P24 Ag 4thGn Ur L.pneumophila Ag SARS-CoV-2 IgG Ab Blood Type Antibody Screen Antigen Identification Crossmatch Crossmatch (AHG) 04/04/21 04/04/21 04/04/21 12:14 12:18 18:16 WBC RBC Hgb Hct MCV MCH MCHC RDW Plt Count MPV Immature Gran % (Auto) Neut % (Auto) Lymph % (Auto) [place] % (Auto) Eos % (Auto) Baso % (Auto) Lymph # (Auto) [place] # (Auto) Eos # (Auto) Baso # (Auto) Abs Immat Gran (auto) Absolute Neuts (auto) Absolute Nucleated RBC Nucleated RBC % (auto) Neutrophils % (Manual) Band Neutrophils % Lymphocytes % (Manual) Atypical Lymphs % (Man) Monocytes % (Manual) Eosinophils % (Manual) Basophils % (Manual) Metamyelocytes % Myelocytes % Abs Neuts (Manual) Lymphocytes # (Manual) Atyp Lymphs # (Manual) Monocytes # (Manual) Eosinophils # (Manual) Basophils # (Manual) Metamyelocytes # Myelocytes # Nucleated RBCs Smudge Cells Dohle Bodies Platelet Estimate Large Platelets Plt Morphology Comment RBC Morphology Polychromasia Hypochromasia Basophilic Stippling Microcytosis Macrocytosis Pappenheimer Bodies Target Cells Tear Drop Cells Ovalocytes Abi Cells Acanthocytes (Spur) Smear Tech's Comments Smear Path Review ESR PT INR APTT aPTT Heparin Protocol D-Dimer High Sensitivty O2 Saturation ABG pH at Pt Temp ABG pH (Temp Correct) ABG pCO2 at Pt Temp ABG pCO2 (Temp Corrct ABG pO2 at Pt Temp ABG pO2 (Temp Correct ABG HCO3 ABG Base Excess (Actual) VBG pH VBG pCO2 VBG pO2 VBG HCO3 VBG O2 Saturation VBG Base Excess Sodium Potassium Chloride Carbon Dioxide Anion Gap BUN Creatinine Estim Creat Clear Calc Estimated GFR POC Glucose 131 H 146 H Random Glucose Lactic Acid Lactic Acid F/U @ 2Hr Calcium Phosphorus Magnesium Ferritin Total Bilirubin Direct Bilirubin AST ALT Alkaline Phosphatase Ammonia Lactate Dehydrogenase Troponin I High Sens C-Reactive Protein B-Natriuretic Peptide Total Protein Albumin Procalcitonin Urine Color Urine Appearance Urine pH Ur Specific [place] Urine Protein Urine Glucose (UA) Urine Ketones Urine Blood Urine Nitrite Ur Leukocyte Esterase Urine RBC Urine WBC Ur Squamous Epith Cells Ur Renal Epithelial Cell Urine Bacteria Urine Yeast Nasal Screen MRSA (PCR) Nasal S. aureus Screen Nasal MRSA/S.aureus Interp Stool Occult Blood Stool Leukocytes, Qual Vancomycin Trough Random Vancomycin Urine Opiates Screen Urine Fentanyl Screen Ur Barbiturates Screen Ur Phencyclidine Scrn Ur Amphetamines Screen U Benzodiazepines Scrn Urine Cocaine Screen U Marijuana (THC) Screen C. difficile Tox B Gene COVID-19 ([facility]) COVID-19 Clin Com Hepatitis A IgM Ab Hep Bs Antigen Hep Bs Antibody Hep B Core Total Ab Hepatitis C Ab (EIA) HIV 1&2 Ab/P24 Ag 4thGn Ur L.pneumophila Ag SARS-CoV-2 IgG Ab Blood Type O Negative Antibody Screen NEGATIVE Antigen Identification Crossmatch Crossmatch (AHG) See Detail 04/04/21 04/05/21 04/05/21 23:22 05:14 05:14 WBC 7.0 RBC 2.67 L Hgb 7.6 L Hct 23.9 L MCV 89.5 MCH 28.5 MCHC 31.8 RDW 16.4 H Plt Count 188 MPV 10.3 Immature Gran % (Auto) 0.6 H Neut % (Auto) 77.9 H Lymph % (Auto) 8.1 L [place] % (Auto) 13.4 H Eos % (Auto) 0.0 Baso % (Auto) 0.0 Lymph # (Auto) 0.6 L [place] # (Auto) 0.9 Eos # (Auto) 0.0 Baso # (Auto) 0.0 Abs Immat Gran (auto) 0.04 H Absolute Neuts (auto) 5.5 Absolute Nucleated RBC 0.000 Nucleated RBC % (auto) 0.0 Neutrophils % (Manual) Band Neutrophils % Lymphocytes % (Manual) Atypical Lymphs % (Man) Monocytes % (Manual) Eosinophils % (Manual) Basophils % (Manual) Metamyelocytes % Myelocytes % Abs Neuts (Manual) Lymphocytes # (Manual) Atyp Lymphs # (Manual) Monocytes # (Manual) Eosinophils # (Manual) Basophils # (Manual) Metamyelocytes # Myelocytes # Nucleated RBCs Smudge Cells Dohle Bodies Platelet Estimate Large Platelets Plt Morphology Comment RBC Morphology Polychromasia Hypochromasia Basophilic Stippling Microcytosis Macrocytosis Pappenheimer Bodies Target Cells Tear Drop Cells Ovalocytes [place] Cells Acanthocytes (Spur) Smear Tech's Comments Smear Path Review ESR PT INR APTT aPTT Heparin Protocol D-Dimer High Sensitivty O2 Saturation ABG pH at Pt Temp ABG pH (Temp Correct) ABG pCO2 at Pt Temp ABG pCO2 (Temp Corrct ABG pO2 at Pt Temp ABG pO2 (Temp Correct ABG HCO3 ABG Base Excess (Actual) VBG pH VBG pCO2 VBG pO2 VBG HCO3 VBG O2 Saturation VBG Base Excess Sodium 138 Potassium 3.3 Chloride 101 Carbon Dioxide 24 Anion Gap 16 BUN 44 H Creatinine 3.10 H Estim Creat Clear Calc 23.5 Estimated GFR 15 POC Glucose 111 Random Glucose 126 H Lactic Acid Lactic Acid F/U @ 2Hr Calcium 8.5 Phosphorus 3.2 Magnesium 1.6 Ferritin Total Bilirubin 0.5 Direct Bilirubin 0.3 AST 25 D ALT 59 H Alkaline Phosphatase 85 D Ammonia Lactate Dehydrogenase Troponin I High Sens C-Reactive Protein B-Natriuretic Peptide Total Protein 4.4 L Albumin 2.8 L Procalcitonin Urine Color Urine Appearance Urine pH Ur Specific [place] Urine Protein Urine Glucose (UA) Urine Ketones Urine Blood Urine Nitrite Ur Leukocyte Esterase Urine RBC Urine WBC Ur Squamous Epith Cells Ur Renal Epithelial Cell Urine Bacteria Urine Yeast Nasal Screen MRSA (PCR) Nasal S. aureus Screen Nasal MRSA/S.aureus Interp Stool Occult Blood Stool Leukocytes, Qual Vancomycin Trough Random Vancomycin Urine Opiates Screen Urine Fentanyl Screen Ur Barbiturates Screen Ur Phencyclidine Scrn Ur Amphetamines Screen U Benzodiazepines Scrn Urine Cocaine Screen U Marijuana (THC) Screen C. difficile Tox B Gene COVID-19 ([facility]) COVID-19 Clin Com Hepatitis A IgM Ab Hep Bs Antigen Hep Bs Antibody Hep B Core Total Ab Hepatitis C Ab (EIA) HIV 1&2 Ab/P24 Ag 4thGn Ur L.pneumophila Ag SARS-CoV-2 IgG Ab Blood Type Antibody Screen Antigen Identification Crossmatch Crossmatch (AHG) 04/05/21 04/05/21 04/05/21 05:14 05:15 05:50 WBC RBC Hgb Hct MCV MCH MCHC RDW Plt Count MPV Immature Gran % (Auto) Neut % (Auto) Lymph % (Auto) [place] % (Auto) Eos % (Auto) Baso % (Auto) Lymph # (Auto) [place] # (Auto) Eos # (Auto) Baso # (Auto) Abs Immat Gran (auto) Absolute Neuts (auto) Absolute Nucleated RBC Nucleated RBC % (auto) Neutrophils % (Manual) Band Neutrophils % Lymphocytes % (Manual) Atypical Lymphs % (Man) Monocytes % (Manual) Eosinophils % (Manual) Basophils % (Manual) Metamyelocytes % Myelocytes % Abs Neuts (Manual) Lymphocytes # (Manual) Atyp Lymphs # (Manual) Monocytes # (Manual) Eosinophils # (Manual) Basophils # (Manual) Metamyelocytes # Myelocytes # Nucleated RBCs Smudge Cells Dohle Bodies Platelet Estimate Large Platelets Plt Morphology Comment RBC Morphology Polychromasia Hypochromasia Basophilic Stippling Microcytosis Macrocytosis Pappenheimer Bodies Target Cells Tear Drop Cells Ovalocytes [place] Cells Acanthocytes (Spur) Smear Tech's Comments Smear Path Review ESR PT INR APTT aPTT Heparin Protocol D-Dimer High Sensitivty O2 Saturation ABG pH at Pt Temp ABG pH (Temp Correct) ABG pCO2 at Pt Temp ABG pCO2 (Temp Corrct ABG pO2 at Pt Temp ABG pO2 (Temp Correct ABG HCO3 ABG Base Excess (Actual) VBG pH 7.54 H VBG pCO2 28 VBG pO2 48 VBG HCO3 24 VBG O2 Saturation 84.0 VBG Base Excess 2.6 Sodium Potassium Chloride Carbon Dioxide Anion Gap BUN Creatinine Estim Creat Clear Calc Estimated GFR POC Glucose 122 H Random Glucose Lactic Acid Lactic Acid F/U @ 2Hr Calcium Phosphorus Magnesium Ferritin Total Bilirubin Direct Bilirubin AST ALT Alkaline Phosphatase Ammonia Lactate Dehydrogenase Troponin I High Sens 215.8 H* D C-Reactive Protein B-Natriuretic Peptide Total Protein Albumin Procalcitonin Urine Color Urine Appearance Urine pH Ur Specific [place] Urine Protein Urine Glucose (UA) Urine Ketones Urine Blood Urine Nitrite Ur Leukocyte Esterase Urine RBC Urine WBC Ur Squamous Epith Cells Ur Renal Epithelial Cell Urine Bacteria Urine Yeast Nasal Screen MRSA (PCR) Nasal S. aureus Screen Nasal MRSA/S.aureus Interp Stool Occult Blood Stool Leukocytes, Qual Vancomycin Trough Random Vancomycin Urine Opiates Screen Urine Fentanyl Screen Ur Barbiturates Screen Ur Phencyclidine Scrn Ur Amphetamines Screen U Benzodiazepines Scrn Urine Cocaine Screen U Marijuana (THC) Screen C. difficile Tox B Gene COVID-19 ([facility]) COVID-19 Clin Com Hepatitis A IgM Ab Hep Bs Antigen Hep Bs Antibody Hep B Core Total Ab Hepatitis C Ab (EIA) HIV 1&2 Ab/P24 Ag 4thGn Ur L.pneumophila Ag SARS-CoV-2 IgG Ab Blood Type Antibody Screen Antigen Identification Crossmatch Crossmatch (AHG) 04/05/21 04/05/21 04/05/21 12:09 17:20 23:24 WBC RBC Hgb Hct MCV MCH MCHC RDW Plt Count MPV Immature Gran % (Auto) Neut % (Auto) Lymph % (Auto) [place] % (Auto) Eos % (Auto) Baso % (Auto) Lymph # (Auto) [place] # (Auto) Eos # (Auto) Baso # (Auto) Abs Immat Gran (auto) Absolute Neuts (auto) Absolute Nucleated RBC Nucleated RBC % (auto) Neutrophils % (Manual) Band Neutrophils % Lymphocytes % (Manual) Atypical Lymphs % (Man) Monocytes % (Manual) Eosinophils % (Manual) Basophils % (Manual) Metamyelocytes % Myelocytes % Abs Neuts (Manual) Lymphocytes # (Manual) Atyp Lymphs # (Manual) Monocytes # (Manual) Eosinophils # (Manual) Basophils # (Manual) Metamyelocytes # Myelocytes # Nucleated RBCs Smudge Cells Dohle Bodies Platelet Estimate Large Platelets Plt Morphology Comment RBC Morphology Polychromasia Hypochromasia Basophilic Stippling Microcytosis Macrocytosis Pappenheimer Bodies Target Cells Tear Drop Cells Ovalocytes Abi Cells Acanthocytes (Spur) Smear Tech's Comments Smear Path Review ESR PT INR APTT aPTT Heparin Protocol D-Dimer High Sensitivty O2 Saturation ABG pH at Pt Temp ABG pH (Temp Correct) ABG pCO2 at Pt Temp ABG pCO2 (Temp Corrct ABG pO2 at Pt Temp ABG pO2 (Temp Correct ABG HCO3 ABG Base Excess (Actual) VBG pH VBG pCO2 VBG pO2 VBG HCO3 VBG O2 Saturation VBG Base Excess Sodium Potassium Chloride Carbon Dioxide Anion Gap BUN Creatinine Estim Creat Clear Calc Estimated GFR POC Glucose 111 137 H 128 H Random Glucose Lactic Acid Lactic Acid F/U @ 2Hr Calcium Phosphorus Magnesium Ferritin Total Bilirubin Direct Bilirubin AST ALT Alkaline Phosphatase Ammonia Lactate Dehydrogenase Troponin I High Sens C-Reactive Protein B-Natriuretic Peptide Total Protein Albumin Procalcitonin Urine Color Urine Appearance Urine pH Ur Specific [place] Urine Protein Urine Glucose (UA) Urine Ketones Urine Blood Urine Nitrite Ur Leukocyte Esterase Urine RBC Urine WBC Ur Squamous Epith Cells Ur Renal Epithelial Cell Urine Bacteria Urine Yeast Nasal Screen MRSA (PCR) Nasal S. aureus Screen Nasal MRSA/S.aureus Interp Stool Occult Blood Stool Leukocytes, Qual Vancomycin Trough Random Vancomycin Urine Opiates Screen Urine Fentanyl Screen Ur Barbiturates Screen Ur Phencyclidine Scrn Ur Amphetamines Screen U Benzodiazepines Scrn Urine Cocaine Screen U Marijuana (THC) Screen C. difficile Tox B Gene COVID-19 ([facility]) COVID-19 Clin Com Hepatitis A IgM Ab Hep Bs Antigen Hep Bs Antibody Hep B Core Total Ab Hepatitis C Ab (EIA) HIV 1&2 Ab/P24 Ag 4thGn Ur L.pneumophila Ag SARS-CoV-2 IgG Ab Blood Type Antibody Screen Antigen Identification Crossmatch Crossmatch (AHG) 04/06/21 04/06/21 04/06/21 05:14 05:20 05:20 WBC 7.5 RBC 2.72 L Hgb 7.6 L Hct 24.6 L MCV 90.4 MCH 27.9 MCHC 30.9 L RDW 16.2 H Plt Count 210 MPV 9.9 Immature Gran % (Auto) 1.1 H Neut % (Auto) 83.7 H Lymph % (Auto) 5.7 L [place] % (Auto) 9.5 Eos % (Auto) 0.0 Baso % (Auto) 0.0 Lymph # (Auto) 0.4 L [place] # (Auto) 0.7 Eos # (Auto) 0.0 Baso # (Auto) 0.0 Abs Immat Gran (auto) 0.08 H Absolute Neuts (auto) 6.3 Absolute Nucleated RBC 0.000 Nucleated RBC % (auto) 0.0 Neutrophils % (Manual) Band Neutrophils % Lymphocytes % (Manual) Atypical Lymphs % (Man) Monocytes % (Manual) Eosinophils % (Manual) Basophils % (Manual) Metamyelocytes % Myelocytes % Abs Neuts (Manual) Lymphocytes # (Manual) Atyp Lymphs # (Manual) Monocytes # (Manual) Eosinophils # (Manual) Basophils # (Manual) Metamyelocytes # Myelocytes # Nucleated RBCs Smudge Cells Dohle Bodies Platelet Estimate Large Platelets Plt Morphology Comment RBC Morphology Polychromasia Hypochromasia Basophilic Stippling Microcytosis Macrocytosis Pappenheimer Bodies Target Cells Tear Drop Cells Ovalocytes Abi Cells Acanthocytes (Spur) Smear Tech's Comments Smear Path Review ESR PT INR APTT aPTT Heparin Protocol D-Dimer High Sensitivty O2 Saturation ABG pH at Pt Temp ABG pH (Temp Correct) ABG pCO2 at Pt Temp ABG pCO2 (Temp Corrct ABG pO2 at Pt Temp ABG pO2 (Temp Correct ABG HCO3 ABG Base Excess (Actual) VBG pH VBG pCO2 VBG pO2 VBG HCO3 VBG O2 Saturation VBG Base Excess Sodium 136 Potassium 3.6 Chloride 101 Carbon Dioxide 22 Anion Gap 17 BUN 58 H Creatinine 3.78 H Estim Creat Clear Calc 19.3 Estimated GFR 12 POC Glucose 114 Random Glucose 123 H Lactic Acid Lactic Acid F/U @ 2Hr Calcium 8.2 L Phosphorus 4.0 Magnesium 1.6 Ferritin Total Bilirubin 0.5 Direct Bilirubin 0.3 AST 23 ALT 50 H Alkaline Phosphatase 98 Ammonia Lactate Dehydrogenase Troponin I High Sens C-Reactive Protein B-Natriuretic Peptide Total Protein 4.5 L Albumin 2.5 L Procalcitonin Urine Color Urine Appearance Urine pH Ur Specific [place] Urine Protein Urine Glucose (UA) Urine Ketones Urine Blood Urine Nitrite Ur Leukocyte Esterase Urine RBC Urine WBC Ur Squamous Epith Cells Ur Renal Epithelial Cell Urine Bacteria Urine Yeast Nasal Screen MRSA (PCR) Nasal S. aureus Screen Nasal MRSA/S.aureus Interp Stool Occult Blood Stool Leukocytes, Qual Vancomycin Trough Random Vancomycin Urine Opiates Screen Urine Fentanyl Screen Ur Barbiturates Screen Ur Phencyclidine Scrn Ur Amphetamines Screen U Benzodiazepines Scrn Urine Cocaine Screen U Marijuana (THC) Screen C. difficile Tox B Gene COVID-19 ([facility]) COVID-19 Clin Com Hepatitis A IgM Ab Hep Bs Antigen Hep Bs Antibody Hep B Core Total Ab Hepatitis C Ab (EIA) HIV 1&2 Ab/P24 Ag 4thGn Ur L.pneumophila Ag SARS-CoV-2 IgG Ab Blood Type Antibody Screen Antigen Identification Crossmatch Crossmatch (AHG) 04/06/21 04/06/21 04/06/21 05:26 11:57 12:10 WBC RBC Hgb Hct MCV MCH MCHC RDW Plt Count MPV Immature Gran % (Auto) Neut % (Auto) Lymph % (Auto) [place] % (Auto) Eos % (Auto) Baso % (Auto) Lymph # (Auto) [place] # (Auto) Eos # (Auto) Baso # (Auto) Abs Immat Gran (auto) Absolute Neuts (auto) Absolute Nucleated RBC Nucleated RBC % (auto) Neutrophils % (Manual) Band Neutrophils % Lymphocytes % (Manual) Atypical Lymphs % (Man) Monocytes % (Manual) Eosinophils % (Manual) Basophils % (Manual) Metamyelocytes % Myelocytes % Abs Neuts (Manual) Lymphocytes # (Manual) Atyp Lymphs # (Manual) Monocytes # (Manual) Eosinophils # (Manual) Basophils # (Manual) Metamyelocytes # Myelocytes # Nucleated RBCs Smudge Cells Dohle Bodies Platelet Estimate Large Platelets Plt Morphology Comment RBC Morphology Polychromasia Hypochromasia Basophilic Stippling Microcytosis Macrocytosis Pappenheimer Bodies Target Cells Tear Drop Cells Ovalocytes Abi Cells Acanthocytes (Spur) Smear Tech's Comments Smear Path Review ESR PT INR APTT aPTT Heparin Protocol D-Dimer High Sensitivty O2 Saturation ABG pH at Pt Temp ABG pH (Temp Correct) ABG pCO2 at Pt Temp ABG pCO2 (Temp Corrct ABG pO2 at Pt Temp ABG pO2 (Temp Correct ABG HCO3 ABG Base Excess (Actual) VBG pH 7.48 H VBG pCO2 27 VBG pO2 48 VBG HCO3 20 L VBG O2 Saturation 82.0 VBG Base Excess -1.8 Sodium Potassium Chloride Carbon Dioxide Anion Gap BUN Creatinine Estim Creat Clear Calc Estimated GFR POC Glucose 121 H Random Glucose Lactic Acid Lactic Acid F/U @ 2Hr Calcium Phosphorus Magnesium Ferritin Total Bilirubin Direct Bilirubin AST ALT Alkaline Phosphatase Ammonia Lactate Dehydrogenase Troponin I High Sens C-Reactive Protein B-Natriuretic Peptide Total Protein Albumin Procalcitonin Urine Color Urine Appearance Urine pH Ur Specific [place] Urine Protein Urine Glucose (UA) Urine Ketones Urine Blood Urine Nitrite Ur Leukocyte Esterase Urine RBC Urine WBC Ur Squamous Epith Cells Ur Renal Epithelial Cell Urine Bacteria Urine Yeast Nasal Screen MRSA (PCR) Nasal S. aureus Screen Nasal MRSA/S.aureus Interp Stool Occult Blood Stool Leukocytes, Qual Vancomycin Trough Random Vancomycin 17.3 Urine Opiates Screen Urine Fentanyl Screen Ur Barbiturates Screen Ur Phencyclidine Scrn Ur Amphetamines Screen U Benzodiazepines Scrn Urine Cocaine Screen U Marijuana (THC) Screen C. difficile Tox B Gene COVID-19 ([facility]) COVID-19 Clin Com Hepatitis A IgM Ab Hep Bs Antigen Hep Bs Antibody Hep B Core Total Ab Hepatitis C Ab (EIA) HIV 1&2 Ab/P24 Ag 4thGn Ur L.pneumophila Ag SARS-CoV-2 IgG Ab Blood Type Antibody Screen Antigen Identification Crossmatch Crossmatch (AHG) 04/06/21 04/06/21 04/06/21 15:16 17:51 23:15 WBC RBC Hgb Hct MCV MCH MCHC RDW Plt Count MPV Immature Gran % (Auto) Neut % (Auto) Lymph % (Auto) [place] % (Auto) Eos % (Auto) Baso % (Auto) Lymph # (Auto) [place] # (Auto) Eos # (Auto) Baso # (Auto) Abs Immat Gran (auto) Absolute Neuts (auto) Absolute Nucleated RBC Nucleated RBC % (auto) Neutrophils % (Manual) Band Neutrophils % Lymphocytes % (Manual) Atypical Lymphs % (Man) Monocytes % (Manual) Eosinophils % (Manual) Basophils % (Manual) Metamyelocytes % Myelocytes % Abs Neuts (Manual) Lymphocytes # (Manual) Atyp Lymphs # (Manual) Monocytes # (Manual) Eosinophils # (Manual) Basophils # (Manual) Metamyelocytes # Myelocytes # Nucleated RBCs Smudge Cells Dohle Bodies Platelet Estimate Large Platelets Plt Morphology Comment RBC Morphology Polychromasia Hypochromasia Basophilic Stippling Microcytosis Macrocytosis Pappenheimer Bodies Target Cells Tear Drop Cells Ovalocytes [place] Cells Acanthocytes (Spur) Smear Tech's Comments Smear Path Review ESR PT INR APTT aPTT Heparin Protocol D-Dimer High Sensitivty O2 Saturation ABG pH at Pt Temp ABG pH (Temp Correct) ABG pCO2 at Pt Temp ABG pCO2 (Temp Corrct ABG pO2 at Pt Temp ABG pO2 (Temp Correct ABG HCO3 ABG Base Excess (Actual) VBG pH VBG pCO2 VBG pO2 VBG HCO3 VBG O2 Saturation VBG Base Excess Sodium Potassium Chloride Carbon Dioxide Anion Gap BUN Creatinine Estim Creat Clear Calc Estimated GFR POC Glucose 114 97 Random Glucose Lactic Acid Lactic Acid F/U @ 2Hr Calcium Phosphorus Magnesium Ferritin Total Bilirubin Direct Bilirubin AST ALT Alkaline Phosphatase Ammonia Lactate Dehydrogenase Troponin I High Sens C-Reactive Protein B-Natriuretic Peptide Total Protein Albumin Procalcitonin Urine Color Urine Appearance Urine pH Ur Specific [place] Urine Protein Urine Glucose (UA) Urine Ketones Urine Blood Urine Nitrite Ur Leukocyte Esterase Urine RBC Urine WBC Ur Squamous Epith Cells Ur Renal Epithelial Cell Urine Bacteria Urine Yeast Nasal Screen MRSA (PCR) Nasal S. aureus Screen Nasal MRSA/S.aureus Interp Stool Occult Blood Stool Leukocytes, Qual Vancomycin Trough 17.7 Random Vancomycin Urine Opiates Screen Urine Fentanyl Screen Ur Barbiturates Screen Ur Phencyclidine Scrn Ur Amphetamines Screen U Benzodiazepines Scrn Urine Cocaine Screen U Marijuana (THC) Screen C. difficile Tox B Gene COVID-19 ([facility]) COVID-19 Clin Com Hepatitis A IgM Ab Hep Bs Antigen Hep Bs Antibody Hep B Core Total Ab Hepatitis C Ab (EIA) HIV 1&2 Ab/P24 Ag 4thGn Ur L.pneumophila Ag SARS-CoV-2 IgG Ab Blood Type Antibody Screen Antigen Identification Crossmatch Crossmatch (AHG) 04/07/21 04/07/21 04/07/21 05:14 05:15 05:15 WBC 7.0 RBC 2.70 L Hgb 7.4 L Hct 24.2 L MCV 89.6 MCH 27.4 MCHC 30.6 L RDW 15.8 Plt Count 198 MPV 9.8 Immature Gran % (Auto) 1.7 H Neut % (Auto) 83.4 H Lymph % (Auto) 7.2 L [place] % (Auto) 7.6 Eos % (Auto) 0.0 Baso % (Auto) 0.1 Lymph # (Auto) 0.5 L [place] # (Auto) 0.5 Eos # (Auto) 0.0 Baso # (Auto) 0.0 Abs Immat Gran (auto) 0.12 H Absolute Neuts (auto) 5.8 Absolute Nucleated RBC 0.000 Nucleated RBC % (auto) 0.0 Neutrophils % (Manual) Band Neutrophils % Lymphocytes % (Manual) Atypical Lymphs % (Man) Monocytes % (Manual) Eosinophils % (Manual) Basophils % (Manual) Metamyelocytes % Myelocytes % Abs Neuts (Manual) Lymphocytes # (Manual) Atyp Lymphs # (Manual) Monocytes # (Manual) Eosinophils # (Manual) Basophils # (Manual) Metamyelocytes # Myelocytes # Nucleated RBCs Smudge Cells Dohle Bodies Platelet Estimate Large Platelets Plt Morphology Comment RBC Morphology Polychromasia Hypochromasia Basophilic Stippling Microcytosis Macrocytosis Pappenheimer Bodies Target Cells Tear Drop Cells Ovalocytes [place] Cells Acanthocytes (Spur) Smear Tech's Comments Smear Path Review ESR PT INR APTT aPTT Heparin Protocol D-Dimer High Sensitivty O2 Saturation ABG pH at Pt Temp ABG pH (Temp Correct) ABG pCO2 at Pt Temp ABG pCO2 (Temp Corrct ABG pO2 at Pt Temp ABG pO2 (Temp Correct ABG HCO3 ABG Base Excess (Actual) VBG pH 7.49 H VBG pCO2 24 VBG pO2 35 VBG HCO3 19 L VBG O2 Saturation 59.0 VBG Base Excess -2.8 Sodium 135 Potassium 3.1 L Chloride 99 Carbon Dioxide 21 L Anion Gap 18 BUN 70 H Creatinine 4.27 H* Estim Creat Clear Calc 17.4 Estimated GFR 11 POC Glucose Random Glucose 124 H Lactic Acid Lactic Acid F/U @ 2Hr Calcium 8.3 L Phosphorus 4.4 Magnesium 1.6 Ferritin Total Bilirubin 0.4 Direct Bilirubin 0.3 AST 22 ALT 45 H Alkaline Phosphatase 93 Ammonia Lactate Dehydrogenase Troponin I High Sens C-Reactive Protein B-Natriuretic Peptide Total Protein 4.5 L Albumin 2.5 L Procalcitonin Urine Color Urine Appearance Urine pH Ur Specific [place] Urine Protein Urine Glucose (UA) Urine Ketones Urine Blood Urine Nitrite Ur Leukocyte Esterase Urine RBC Urine WBC Ur Squamous Epith Cells Ur Renal Epithelial Cell Urine Bacteria Urine Yeast Nasal Screen MRSA (PCR) Nasal S. aureus Screen Nasal MRSA/S.aureus Interp Stool Occult Blood Stool Leukocytes, Qual Vancomycin Trough Random Vancomycin Urine Opiates Screen Urine Fentanyl Screen Ur Barbiturates Screen Ur Phencyclidine Scrn Ur Amphetamines Screen U Benzodiazepines Scrn Urine Cocaine Screen U Marijuana (THC) Screen C. difficile Tox B Gene COVID-19 ([facility]) COVID-19 Clin Com Hepatitis A IgM Ab Hep Bs Antigen Hep Bs Antibody Hep B Core Total Ab Hepatitis C Ab (EIA) HIV 1&2 Ab/P24 Ag 4thGn Ur L.pneumophila Ag SARS-CoV-2 IgG Ab Blood Type Antibody Screen Antigen Identification Crossmatch Crossmatch (AHG) 04/07/21 04/07/21 04/07/21 05:15 12:17 16:01 WBC RBC Hgb Hct MCV MCH MCHC RDW Plt Count MPV Immature Gran % (Auto) Neut % (Auto) Lymph % (Auto) [place] % (Auto) Eos % (Auto) Baso % (Auto) Lymph # (Auto) [place] # (Auto) Eos # (Auto) Baso # (Auto) Abs Immat Gran (auto) Absolute Neuts (auto) Absolute Nucleated RBC Nucleated RBC % (auto) Neutrophils % (Manual) Band Neutrophils % Lymphocytes % (Manual) Atypical Lymphs % (Man) Monocytes % (Manual) Eosinophils % (Manual) Basophils % (Manual) Metamyelocytes % Myelocytes % Abs Neuts (Manual) Lymphocytes # (Manual) Atyp Lymphs # (Manual) Monocytes # (Manual) Eosinophils # (Manual) Basophils # (Manual) Metamyelocytes # Myelocytes # Nucleated RBCs Smudge Cells Dohle Bodies Platelet Estimate Large Platelets Plt Morphology Comment RBC Morphology Polychromasia Hypochromasia Basophilic Stippling Microcytosis Macrocytosis Pappenheimer Bodies Target Cells Tear Drop Cells Ovalocytes Abi Cells Acanthocytes (Spur) Smear Tech's Comments Smear Path Review ESR PT INR APTT aPTT Heparin Protocol D-Dimer High Sensitivty O2 Saturation ABG pH at Pt Temp ABG pH (Temp Correct) ABG pCO2 at Pt Temp ABG pCO2 (Temp Corrct ABG pO2 at Pt Temp ABG pO2 (Temp Correct ABG HCO3 ABG Base Excess (Actual) VBG pH VBG pCO2 VBG pO2 VBG HCO3 VBG O2 Saturation VBG Base Excess Sodium Potassium Chloride Carbon Dioxide Anion Gap BUN Creatinine Estim Creat Clear Calc Estimated GFR POC Glucose 123 H Random Glucose Lactic Acid Lactic Acid F/U @ 2Hr Calcium Phosphorus Magnesium Ferritin Total Bilirubin Direct Bilirubin AST ALT Alkaline Phosphatase Ammonia Lactate Dehydrogenase Troponin I High Sens C-Reactive Protein B-Natriuretic Peptide Total Protein Albumin Cancelled Procalcitonin Urine Color Urine Appearance Urine pH Ur Specific [place] Urine Protein Urine Glucose (UA) Urine Ketones Urine Blood Urine Nitrite Ur Leukocyte Esterase Urine RBC Urine WBC Ur Squamous Epith Cells Ur Renal Epithelial Cell Urine Bacteria Urine Yeast Nasal Screen MRSA (PCR) Nasal S. aureus Screen Nasal MRSA/S.aureus Interp Stool Occult Blood Stool Leukocytes, Qual Vancomycin Trough Random Vancomycin 11.7 L Urine Opiates Screen Urine Fentanyl Screen Ur Barbiturates Screen Ur Phencyclidine Scrn Ur Amphetamines Screen U Benzodiazepines Scrn Urine Cocaine Screen U Marijuana (THC) Screen C. difficile Tox B Gene COVID-19 ([facility]) COVID-19 Clin Com Hepatitis A IgM Ab Hep Bs Antigen Hep Bs Antibody Hep B Core Total Ab Hepatitis C Ab (EIA) HIV 1&2 Ab/P24 Ag 4thGn Ur L.pneumophila Ag SARS-CoV-2 IgG Ab Blood Type Antibody Screen Antigen Identification Crossmatch Crossmatch (AHG) 04/07/21 04/07/21 04/08/21 17:28 23:18 01:22 WBC RBC Hgb Hct MCV MCH MCHC RDW Plt Count MPV Immature Gran % (Auto) Neut % (Auto) Lymph % (Auto) [place] % (Auto) Eos % (Auto) Baso % (Auto) Lymph # (Auto) [place] # (Auto) Eos # (Auto) Baso # (Auto) Abs Immat Gran (auto) Absolute Neuts (auto) Absolute Nucleated RBC Nucleated RBC % (auto) Neutrophils % (Manual) Band Neutrophils % Lymphocytes % (Manual) Atypical Lymphs % (Man) Monocytes % (Manual) Eosinophils % (Manual) Basophils % (Manual) Metamyelocytes % Myelocytes % Abs Neuts (Manual) Lymphocytes # (Manual) Atyp Lymphs # (Manual) Monocytes # (Manual) Eosinophils # (Manual) Basophils # (Manual) Metamyelocytes # Myelocytes # Nucleated RBCs Smudge Cells Dohle Bodies Platelet Estimate Large Platelets Plt Morphology Comment RBC Morphology Polychromasia Hypochromasia Basophilic Stippling Microcytosis Macrocytosis Pappenheimer Bodies Target Cells Tear Drop Cells Ovalocytes Abi Cells Acanthocytes (Spur) Smear Tech's Comments Smear Path Review ESR PT INR APTT aPTT Heparin Protocol D-Dimer High Sensitivty O2 Saturation ABG pH at Pt Temp ABG pH (Temp Correct) ABG pCO2 at Pt Temp ABG pCO2 (Temp Corrct ABG pO2 at Pt Temp ABG pO2 (Temp Correct ABG HCO3 ABG Base Excess (Actual) VBG pH VBG pCO2 VBG pO2 VBG HCO3 VBG O2 Saturation VBG Base Excess Sodium Potassium Chloride Carbon Dioxide Anion Gap BUN Creatinine Estim Creat Clear Calc Estimated GFR POC Glucose 107 81 94 Random Glucose Lactic Acid Lactic Acid F/U @ 2Hr Calcium Phosphorus Magnesium Ferritin Total Bilirubin Direct Bilirubin AST ALT Alkaline Phosphatase Ammonia Lactate Dehydrogenase Troponin I High Sens C-Reactive Protein B-Natriuretic Peptide Total Protein Albumin Procalcitonin Urine Color Urine Appearance Urine pH Ur Specific [place] Urine Protein Urine Glucose (UA) Urine Ketones Urine Blood Urine Nitrite Ur Leukocyte Esterase Urine RBC Urine WBC Ur Squamous Epith Cells Ur Renal Epithelial Cell Urine Bacteria Urine Yeast Nasal Screen MRSA (PCR) Nasal S. aureus Screen Nasal MRSA/S.aureus Interp Stool Occult Blood Stool Leukocytes, Qual Vancomycin Trough Random Vancomycin Urine Opiates Screen Urine Fentanyl Screen Ur Barbiturates Screen Ur Phencyclidine Scrn Ur Amphetamines Screen U Benzodiazepines Scrn Urine Cocaine Screen U Marijuana (THC) Screen C. difficile Tox B Gene COVID-19 ([facility]) COVID-19 Clin Com Hepatitis A IgM Ab Hep Bs Antigen Hep Bs Antibody Hep B Core Total Ab Hepatitis C Ab (EIA) HIV 1&2 Ab/P24 Ag 4thGn Ur L.pneumophila Ag SARS-CoV-2 IgG Ab Blood Type Antibody Screen Antigen Identification Crossmatch Crossmatch (AHG) 04/08/21 04/08/21 04/08/21 04:04 05:30 05:30 WBC 6.6 RBC 2.34 L Hgb 6.4 L* Hct 20.6 L* MCV 88.0 MCH 27.4 MCHC 31.1 RDW 15.8 Plt Count 178 MPV 10.3 Immature Gran % (Auto) 1.7 H Neut % (Auto) 83.5 H Lymph % (Auto) 7.8 L [place] % (Auto) 7.0 Eos % (Auto) 0.0 Baso % (Auto) 0.0 Lymph # (Auto) 0.5 L [place] # (Auto) 0.5 Eos # (Auto) 0.0 Baso # (Auto) 0.0 Abs Immat Gran (auto) 0.11 H Absolute Neuts (auto) 5.5 Absolute Nucleated RBC 0.000 Nucleated RBC % (auto) 0.0 Neutrophils % (Manual) Band Neutrophils % Lymphocytes % (Manual) Atypical Lymphs % (Man) Monocytes % (Manual) Eosinophils % (Manual) Basophils % (Manual) Metamyelocytes % Myelocytes % Abs Neuts (Manual) Lymphocytes # (Manual) Atyp Lymphs # (Manual) Monocytes # (Manual) Eosinophils # (Manual) Basophils # (Manual) Metamyelocytes # Myelocytes # Nucleated RBCs Smudge Cells Dohle Bodies Platelet Estimate Large Platelets Plt Morphology Comment RBC Morphology Polychromasia Hypochromasia Basophilic Stippling Microcytosis Macrocytosis Pappenheimer Bodies Target Cells Tear Drop Cells Ovalocytes Abi Cells Acanthocytes (Spur) Smear Tech's Comments VERIFIED Smear Path Review ESR PT INR APTT aPTT Heparin Protocol D-Dimer High Sensitivty O2 Saturation ABG pH at Pt Temp ABG pH (Temp Correct) ABG pCO2 at Pt Temp ABG pCO2 (Temp Corrct ABG pO2 at Pt Temp ABG pO2 (Temp Correct ABG HCO3 ABG Base Excess (Actual) VBG pH VBG pCO2 VBG pO2 VBG HCO3 VBG O2 Saturation VBG Base Excess Sodium 138 Potassium 3.0 L Chloride 100 Carbon Dioxide 24 Anion Gap 17 BUN 36 H Creatinine 2.88 H Estim Creat Clear Calc 25.1 Estimated GFR 17 POC Glucose 73 Random Glucose 111 Lactic Acid Lactic Acid F/U @ 2Hr Calcium 8.9 D Phosphorus 2.7 Magnesium 2.0 Ferritin Total Bilirubin 0.5 Direct Bilirubin AST 23 ALT 36 H Alkaline Phosphatase 86 Ammonia Lactate Dehydrogenase Troponin I High Sens C-Reactive Protein B-Natriuretic Peptide Total Protein 4.8 L Albumin 3.2 L D Procalcitonin Urine Color Urine Appearance Urine pH Ur Specific [place] Urine Protein Urine Glucose (UA) Urine Ketones Urine Blood Urine Nitrite Ur Leukocyte Esterase Urine RBC Urine WBC Ur Squamous Epith Cells Ur Renal Epithelial Cell Urine Bacteria Urine Yeast Nasal Screen MRSA (PCR) Nasal S. aureus Screen Nasal MRSA/S.aureus Interp Stool Occult Blood Stool Leukocytes, Qual Vancomycin Trough Random Vancomycin Urine Opiates Screen Urine Fentanyl Screen Ur Barbiturates Screen Ur Phencyclidine Scrn Ur Amphetamines Screen U Benzodiazepines Scrn Urine Cocaine Screen U Marijuana (THC) Screen C. difficile Tox B Gene COVID-19 ([facility]) COVID-19 Clin Com Hepatitis A IgM Ab Hep Bs Antigen Hep Bs Antibody Hep B Core Total Ab Hepatitis C Ab (EIA) HIV 1&2 Ab/P24 Ag 4thGn Ur L.pneumophila Ag SARS-CoV-2 IgG Ab Blood Type Antibody Screen Antigen Identification Crossmatch Crossmatch (AHG) 04/08/21 04/08/21 04/08/21 05:35 06:05 07:31 WBC RBC Hgb Hct MCV MCH MCHC RDW Plt Count MPV Immature Gran % (Auto) Neut % (Auto) Lymph % (Auto) [place] % (Auto) Eos % (Auto) Baso % (Auto) Lymph # (Auto) [place] # (Auto) Eos # (Auto) Baso # (Auto) Abs Immat Gran (auto) Absolute Neuts (auto) Absolute Nucleated RBC Nucleated RBC % (auto) Neutrophils % (Manual) Band Neutrophils % Lymphocytes % (Manual) Atypical Lymphs % (Man) Monocytes % (Manual) Eosinophils % (Manual) Basophils % (Manual) Metamyelocytes % Myelocytes % Abs Neuts (Manual) Lymphocytes # (Manual) Atyp Lymphs # (Manual) Monocytes # (Manual) Eosinophils # (Manual) Basophils # (Manual) Metamyelocytes # Myelocytes # Nucleated RBCs Smudge Cells Dohle Bodies Platelet Estimate Large Platelets Plt Morphology Comment RBC Morphology Polychromasia Hypochromasia Basophilic Stippling Microcytosis Macrocytosis Pappenheimer Bodies Target Cells Tear Drop Cells Ovalocytes [place] Cells Acanthocytes (Spur) Smear Tech's Comments Smear Path Review ESR PT INR APTT aPTT Heparin Protocol D-Dimer High Sensitivty O2 Saturation ABG pH at Pt Temp ABG pH (Temp Correct) ABG pCO2 at Pt Temp ABG pCO2 (Temp Corrct ABG pO2 at Pt Temp ABG pO2 (Temp Correct ABG HCO3 ABG Base Excess (Actual) VBG pH 7.52 H VBG pCO2 33 VBG pO2 39 VBG HCO3 27 H VBG O2 Saturation 64.0 VBG Base Excess 4.8 Sodium Potassium Chloride Carbon Dioxide Anion Gap BUN Creatinine Estim Creat Clear Calc Estimated GFR POC Glucose 104 Random Glucose Lactic Acid Lactic Acid F/U @ 2Hr Calcium Phosphorus Magnesium Ferritin Total Bilirubin Direct Bilirubin AST ALT Alkaline Phosphatase Ammonia Lactate Dehydrogenase Troponin I High Sens C-Reactive Protein B-Natriuretic Peptide Total Protein Albumin Procalcitonin Urine Color Urine Appearance Urine pH Ur Specific [place] Urine Protein Urine Glucose (UA) Urine Ketones Urine Blood Urine Nitrite Ur Leukocyte Esterase Urine RBC Urine WBC Ur Squamous Epith Cells Ur Renal Epithelial Cell Urine Bacteria Urine Yeast Nasal Screen MRSA (PCR) Nasal S. aureus Screen Nasal MRSA/S.aureus Interp Stool Occult Blood Stool Leukocytes, Qual Vancomycin Trough Random Vancomycin Urine Opiates Screen Urine Fentanyl Screen Ur Barbiturates Screen Ur Phencyclidine Scrn Ur Amphetamines Screen U Benzodiazepines Scrn Urine Cocaine Screen U Marijuana (THC) Screen C. difficile Tox B Gene COVID-19 ([facility]) COVID-19 Clin Com Hepatitis A IgM Ab Hep Bs Antigen Hep Bs Antibody Hep B Core Total Ab Hepatitis C Ab (EIA) HIV 1&2 Ab/P24 Ag 4thGn Ur L.pneumophila Ag SARS-CoV-2 IgG Ab Blood Type O Negative Antibody Screen NEGATIVE Antigen Identification Crossmatch Crossmatch (AHG) See Detail 04/08/21 04/08/21 04/08/21 11:35 16:45 17:28 WBC RBC Hgb Hct MCV MCH MCHC RDW Plt Count MPV Immature Gran % (Auto) Neut % (Auto) Lymph % (Auto) [place] % (Auto) Eos % (Auto) Baso % (Auto) Lymph # (Auto) [place] # (Auto) Eos # (Auto) Baso # (Auto) Abs Immat Gran (auto) Absolute Neuts (auto) Absolute Nucleated RBC Nucleated RBC % (auto) Neutrophils % (Manual) Band Neutrophils % Lymphocytes % (Manual) Atypical Lymphs % (Man) Monocytes % (Manual) Eosinophils % (Manual) Basophils % (Manual) Metamyelocytes % Myelocytes % Abs Neuts (Manual) Lymphocytes # (Manual) Atyp Lymphs # (Manual) Monocytes # (Manual) Eosinophils # (Manual) Basophils # (Manual) Metamyelocytes # Myelocytes # Nucleated RBCs Smudge Cells Dohle Bodies Platelet Estimate Large Platelets Plt Morphology Comment RBC Morphology Polychromasia Hypochromasia Basophilic Stippling Microcytosis Macrocytosis Pappenheimer Bodies Target Cells Tear Drop Cells Ovalocytes Bai Cells Acanthocytes (Spur) Smear Tech's Comments Smear Path Review ESR PT INR APTT aPTT Heparin Protocol D-Dimer High Sensitivty O2 Saturation ABG pH at Pt Temp ABG pH (Temp Correct) ABG pCO2 at Pt Temp ABG pCO2 (Temp Corrct ABG pO2 at Pt Temp ABG pO2 (Temp Correct ABG HCO3 ABG Base Excess (Actual) VBG pH VBG pCO2 VBG pO2 VBG HCO3 VBG O2 Saturation VBG Base Excess Sodium Potassium Chloride Carbon Dioxide Anion Gap BUN Creatinine Estim Creat Clear Calc Estimated GFR POC Glucose 98 83 Random Glucose Lactic Acid Lactic Acid F/U @ 2Hr Calcium Phosphorus Magnesium Ferritin Total Bilirubin Direct Bilirubin AST ALT Alkaline Phosphatase Ammonia Lactate Dehydrogenase Troponin I High Sens C-Reactive Protein B-Natriuretic Peptide Total Protein Albumin Procalcitonin Urine Color Urine Appearance Urine pH Ur Specific [place] Urine Protein Urine Glucose (UA) Urine Ketones Urine Blood Urine Nitrite Ur Leukocyte Esterase Urine RBC Urine WBC Ur Squamous Epith Cells Ur Renal Epithelial Cell Urine Bacteria Urine Yeast Nasal Screen MRSA (PCR) Nasal S. aureus Screen Nasal MRSA/S.aureus Interp Stool Occult Blood Stool Leukocytes, Qual Vancomycin Trough Random Vancomycin 15.9 Urine Opiates Screen Urine Fentanyl Screen Ur Barbiturates Screen Ur Phencyclidine Scrn Ur Amphetamines Screen U Benzodiazepines Scrn Urine Cocaine Screen U Marijuana (THC) Screen C. difficile Tox B Gene COVID-19 ([facility]) COVID-19 Clin Com Hepatitis A IgM Ab Hep Bs Antigen Hep Bs Antibody Hep B Core Total Ab Hepatitis C Ab (EIA) HIV 1&2 Ab/P24 Ag 4thGn Ur L.pneumophila Ag SARS-CoV-2 IgG Ab Blood Type Antibody Screen Antigen Identification Crossmatch Crossmatch (AHG) 04/08/21 04/08/21 04/09/21 22:06 23:49 05:22 WBC RBC Hgb Hct MCV MCH MCHC RDW Plt Count MPV Immature Gran % (Auto) Neut % (Auto) Lymph % (Auto) [place] % (Auto) Eos % (Auto) Baso % (Auto) Lymph # (Auto) [place] # (Auto) Eos # (Auto) Baso # (Auto) Abs Immat Gran (auto) Absolute Neuts (auto) Absolute Nucleated RBC Nucleated RBC % (auto) Neutrophils % (Manual) Band Neutrophils % Lymphocytes % (Manual) Atypical Lymphs % (Man) Monocytes % (Manual) Eosinophils % (Manual) Basophils % (Manual) Metamyelocytes % Myelocytes % Abs Neuts (Manual) Lymphocytes # (Manual) Atyp Lymphs # (Manual) Monocytes # (Manual) Eosinophils # (Manual) Basophils # (Manual) Metamyelocytes # Myelocytes # Nucleated RBCs Smudge Cells Dohle Bodies Platelet Estimate Large Platelets Plt Morphology Comment RBC Morphology Polychromasia Hypochromasia Basophilic Stippling Microcytosis Macrocytosis Pappenheimer Bodies Target Cells Tear Drop Cells Ovalocytes [place] Cells Acanthocytes (Spur) Smear Tech's Comments Smear Path Review ESR PT INR APTT aPTT Heparin Protocol D-Dimer High Sensitivty O2 Saturation ABG pH at Pt Temp ABG pH (Temp Correct) ABG pCO2 at Pt Temp ABG pCO2 (Temp Corrct ABG pO2 at Pt Temp ABG pO2 (Temp Correct ABG HCO3 ABG Base Excess (Actual) VBG pH 7.46 H VBG pCO2 32 VBG pO2 57 VBG HCO3 23 VBG O2 Saturation 86.0 VBG Base Excess 0.5 Sodium Potassium Chloride Carbon Dioxide Anion Gap BUN Creatinine Estim Creat Clear Calc Estimated GFR POC Glucose 81 81 Random Glucose Lactic Acid Lactic Acid F/U @ 2Hr Calcium Phosphorus Magnesium Ferritin Total Bilirubin Direct Bilirubin AST ALT Alkaline Phosphatase Ammonia Lactate Dehydrogenase Troponin I High Sens C-Reactive Protein B-Natriuretic Peptide Total Protein Albumin Procalcitonin Urine Color Urine Appearance Urine pH Ur Specific [place] Urine Protein Urine Glucose (UA) Urine Ketones Urine Blood Urine Nitrite Ur Leukocyte Esterase Urine RBC Urine WBC Ur Squamous Epith Cells Ur Renal Epithelial Cell Urine Bacteria Urine Yeast Nasal Screen MRSA (PCR) Nasal S. aureus Screen Nasal MRSA/S.aureus Interp Stool Occult Blood Stool Leukocytes, Qual Vancomycin Trough Random Vancomycin Urine Opiates Screen Urine Fentanyl Screen Ur Barbiturates Screen Ur Phencyclidine Scrn Ur Amphetamines Screen U Benzodiazepines Scrn Urine Cocaine Screen U Marijuana (THC) Screen C. difficile Tox B Gene COVID-19 ([facility]) COVID-19 Clin Com Hepatitis A IgM Ab Hep Bs Antigen Hep Bs Antibody Hep B Core Total Ab Hepatitis C Ab (EIA) HIV 1&2 Ab/P24 Ag 4thGn Ur L.pneumophila Ag SARS-CoV-2 IgG Ab Blood Type Antibody Screen Antigen Identification Crossmatch Crossmatch (AHG) 04/09/21 04/09/21 04/09/21 05:25 05:25 05:32 WBC 9.1 RBC 2.93 L D Hgb 8.2 L D Hct 26.0 L D MCV 88.7 MCH 28.0 MCHC 31.5 RDW 16.1 H Plt Count 200 MPV 9.9 Immature Gran % (Auto) 2.1 H Neut % (Auto) 86.2 H Lymph % (Auto) 4.3 L [place] % (Auto) 7.4 Eos % (Auto) 0.0 Baso % (Auto) 0.0 Lymph # (Auto) 0.4 L [place] # (Auto) 0.7 Eos # (Auto) 0.0 Baso # (Auto) 0.0 Abs Immat Gran (auto) 0.19 H Absolute Neuts (auto) 7.9 Absolute Nucleated RBC 0.000 Nucleated RBC % (auto) 0.0 Neutrophils % (Manual) Band Neutrophils % Lymphocytes % (Manual) Atypical Lymphs % (Man) Monocytes % (Manual) Eosinophils % (Manual) Basophils % (Manual) Metamyelocytes % Myelocytes % Abs Neuts (Manual) Lymphocytes # (Manual) Atyp Lymphs # (Manual) Monocytes # (Manual) Eosinophils # (Manual) Basophils # (Manual) Metamyelocytes # Myelocytes # Nucleated RBCs Smudge Cells Dohle Bodies Platelet Estimate Large Platelets Plt Morphology Comment RBC Morphology Polychromasia Hypochromasia Basophilic Stippling Microcytosis Macrocytosis Pappenheimer Bodies Target Cells Tear Drop Cells Ovalocytes Abi Cells Acanthocytes (Spur) Smear Tech's Comments Smear Path Review ESR PT INR APTT aPTT Heparin Protocol D-Dimer High Sensitivty O2 Saturation ABG pH at Pt Temp ABG pH (Temp Correct) ABG pCO2 at Pt Temp ABG pCO2 (Temp Corrct ABG pO2 at Pt Temp ABG pO2 (Temp Correct ABG HCO3 ABG Base Excess (Actual) VBG pH 7.42 VBG pCO2 34 VBG pO2 44 VBG HCO3 23 VBG O2 Saturation 68.0 VBG Base Excess -0.9 Sodium 139 Potassium 4.7 D Chloride 101 Carbon Dioxide 21 L Anion Gap 22 H BUN 40 H Creatinine 3.54 H Estim Creat Clear Calc 20.1 Estimated GFR 13 POC Glucose Random Glucose 77 Lactic Acid Lactic Acid F/U @ 2Hr Calcium 9.4 Phosphorus 4.7 H Magnesium 2.0 Ferritin Total Bilirubin Direct Bilirubin AST ALT Alkaline Phosphatase Ammonia Lactate Dehydrogenase Troponin I High Sens C-Reactive Protein B-Natriuretic Peptide Total Protein Albumin 3.5 Procalcitonin Urine Color Urine Appearance Urine pH Ur Specific [place] Urine Protein Urine Glucose (UA) Urine Ketones Urine Blood Urine Nitrite Ur Leukocyte Esterase Urine RBC Urine WBC Ur Squamous Epith Cells Ur Renal Epithelial Cell Urine Bacteria Urine Yeast Nasal Screen MRSA (PCR) Nasal S. aureus Screen Nasal MRSA/S.aureus Interp Stool Occult Blood Stool Leukocytes, Qual Vancomycin Trough Random Vancomycin Urine Opiates Screen Urine Fentanyl Screen Ur Barbiturates Screen Ur Phencyclidine Scrn Ur Amphetamines Screen U Benzodiazepines Scrn Urine Cocaine Screen U Marijuana (THC) Screen C. difficile Tox B Gene COVID-19 ([facility]) COVID-19 Clin Com Hepatitis A IgM Ab Hep Bs Antigen Hep Bs Antibody Hep B Core Total Ab Hepatitis C Ab (EIA) HIV 1&2 Ab/P24 Ag 4thGn Ur L.pneumophila Ag SARS-CoV-2 IgG Ab Blood Type Antibody Screen Antigen Identification Crossmatch Crossmatch (AHG) 04/09/21 04/09/21 04/09/21 11:42 14:00 17:36 WBC RBC Hgb Hct MCV MCH MCHC RDW Plt Count MPV Immature Gran % (Auto) Neut % (Auto) Lymph % (Auto) [place] % (Auto) Eos % (Auto) Baso % (Auto) Lymph # (Auto) [place] # (Auto) Eos # (Auto) Baso # (Auto) Abs Immat Gran (auto) Absolute Neuts (auto) Absolute Nucleated RBC Nucleated RBC % (auto) Neutrophils % (Manual) Band Neutrophils % Lymphocytes % (Manual) Atypical Lymphs % (Man) Monocytes % (Manual) Eosinophils % (Manual) Basophils % (Manual) Metamyelocytes % Myelocytes % Abs Neuts (Manual) Lymphocytes # (Manual) Atyp Lymphs # (Manual) Monocytes # (Manual) Eosinophils # (Manual) Basophils # (Manual) Metamyelocytes # Myelocytes # Nucleated RBCs Smudge Cells Dohle Bodies Platelet Estimate Large Platelets Plt Morphology Comment RBC Morphology Polychromasia Hypochromasia Basophilic Stippling Microcytosis Macrocytosis Pappenheimer Bodies Target Cells Tear Drop Cells Ovalocytes Abi Cells Acanthocytes (Spur) Smear Tech's Comments Smear Path Review ESR PT INR APTT aPTT Heparin Protocol D-Dimer High Sensitivty O2 Saturation ABG pH at Pt Temp ABG pH (Temp Correct) ABG pCO2 at Pt Temp ABG pCO2 (Temp Corrct ABG pO2 at Pt Temp ABG pO2 (Temp Correct ABG HCO3 ABG Base Excess (Actual) VBG pH VBG pCO2 VBG pO2 VBG HCO3 VBG O2 Saturation VBG Base Excess Sodium Potassium Chloride Carbon Dioxide Anion Gap BUN Creatinine Estim Creat Clear Calc Estimated GFR POC Glucose 78 83 Random Glucose Lactic Acid Lactic Acid F/U @ 2Hr Calcium Phosphorus Magnesium Ferritin Total Bilirubin Direct Bilirubin AST ALT Alkaline Phosphatase Ammonia Lactate Dehydrogenase Troponin I High Sens C-Reactive Protein B-Natriuretic Peptide Total Protein Albumin Procalcitonin Urine Color Urine Appearance Urine pH Ur Specific [place] Urine Protein Urine Glucose (UA) Urine Ketones Urine Blood Urine Nitrite Ur Leukocyte Esterase Urine RBC Urine WBC Ur Squamous Epith Cells Ur Renal Epithelial Cell Urine Bacteria Urine Yeast Nasal Screen MRSA (PCR) Nasal S. aureus Screen Nasal MRSA/S.aureus Interp Stool Occult Blood Stool Leukocytes, Qual Vancomycin Trough Random Vancomycin 14.6 L Urine Opiates Screen Urine Fentanyl Screen Ur Barbiturates Screen Ur Phencyclidine Scrn Ur Amphetamines Screen U Benzodiazepines Scrn Urine Cocaine Screen U Marijuana (THC) Screen C. difficile Tox B Gene COVID-19 ([facility]) COVID-19 Clin Com Hepatitis A IgM Ab Hep Bs Antigen Hep Bs Antibody Hep B Core Total Ab Hepatitis C Ab (EIA) HIV 1&2 Ab/P24 Ag 4thGn Ur L.pneumophila Ag SARS-CoV-2 IgG Ab Blood Type Antibody Screen Antigen Identification Crossmatch Crossmatch (AHG) 04/09/21 04/10/21 04/10/21 23:57 05:23 05:23 WBC 7.2 RBC 2.64 L Hgb 7.2 L Hct 23.4 L MCV 88.6 MCH 27.3 MCHC 30.8 L RDW 16.5 H Plt Count 234 MPV 9.9 Immature Gran % (Auto) Cancelled Neut % (Auto) Cancelled Lymph % (Auto) Cancelled [place] % (Auto) Cancelled Eos % (Auto) Cancelled Baso % (Auto) Cancelled Lymph # (Auto) Cancelled [place] # (Auto) Cancelled Eos # (Auto) Cancelled Baso # (Auto) Cancelled Abs Immat Gran (auto) Cancelled Absolute Neuts (auto) Cancelled Absolute Nucleated RBC 0.020 H Nucleated RBC % (auto) 0.3 H Neutrophils % (Manual) 67 Band Neutrophils % 16 H Lymphocytes % (Manual) 9 L Atypical Lymphs % (Man) 1 Monocytes % (Manual) 6 Eosinophils % (Manual) Basophils % (Manual) Metamyelocytes % 1 Myelocytes % Abs Neuts (Manual) 6.0 Lymphocytes # (Manual) 0.6 L Atyp Lymphs # (Manual) 0.1 Monocytes # (Manual) 0.4 Eosinophils # (Manual) Basophils # (Manual) Metamyelocytes # 0.1 Myelocytes # Nucleated RBCs 1 H Smudge Cells Dohle Bodies Platelet Estimate NORMAL Large Platelets Plt Morphology Comment NORM RBC Morphology NOTED Polychromasia Hypochromasia 1+ (5-14) Basophilic Stippling Microcytosis 1+ (5-14) Macrocytosis Pappenheimer Bodies Target Cells Tear Drop Cells Ovalocytes [place] Cells Acanthocytes (Spur) Smear Tech's Comments Smear Path Review ESR PT INR APTT aPTT Heparin Protocol D-Dimer High Sensitivty O2 Saturation ABG pH at Pt Temp ABG pH (Temp Correct) ABG pCO2 at Pt Temp ABG pCO2 (Temp Corrct ABG pO2 at Pt Temp ABG pO2 (Temp Correct ABG HCO3 ABG Base Excess (Actual) VBG pH VBG pCO2 VBG pO2 VBG HCO3 VBG O2 Saturation VBG Base Excess Sodium 140 Potassium 3.5 D Chloride 102 Carbon Dioxide 23 Anion Gap 19 BUN 22 H Creatinine 2.50 H Estim Creat Clear Calc 28.4 Estimated GFR 20 POC Glucose 79 Random Glucose 76 Lactic Acid Lactic Acid F/U @ 2Hr Calcium 8.6 D Phosphorus 3.4 Magnesium 1.9 Ferritin Total Bilirubin Direct Bilirubin AST ALT Alkaline Phosphatase Ammonia Lactate Dehydrogenase Troponin I High Sens C-Reactive Protein B-Natriuretic Peptide Total Protein Albumin 3.0 L Procalcitonin Urine Color Urine Appearance Urine pH Ur Specific [place] Urine Protein Urine Glucose (UA) Urine Ketones Urine Blood Urine Nitrite Ur Leukocyte Esterase Urine RBC Urine WBC Ur Squamous Epith Cells Ur Renal Epithelial Cell Urine Bacteria Urine Yeast Nasal Screen MRSA (PCR) Nasal S. aureus Screen Nasal MRSA/S.aureus Interp Stool Occult Blood Stool Leukocytes, Qual Vancomycin Trough Random Vancomycin Urine Opiates Screen Urine Fentanyl Screen Ur Barbiturates Screen Ur Phencyclidine Scrn Ur Amphetamines Screen U Benzodiazepines Scrn Urine Cocaine Screen U Marijuana (THC) Screen C. difficile Tox B Gene COVID-19 ([facility]) COVID-19 Clin Com Hepatitis A IgM Ab Hep Bs Antigen Hep Bs Antibody Hep B Core Total Ab Hepatitis C Ab (EIA) HIV 1&2 Ab/P24 Ag 4thGn Ur L.pneumophila Ag SARS-CoV-2 IgG Ab Blood Type Antibody Screen Antigen Identification Crossmatch Crossmatch (AHG) 04/10/21 04/10/21 04/10/21 05:30 05:38 11:02 WBC RBC Hgb Hct MCV MCH MCHC RDW Plt Count MPV Immature Gran % (Auto) Neut % (Auto) Lymph % (Auto) [place] % (Auto) Eos % (Auto) Baso % (Auto) Lymph # (Auto) [place] # (Auto) Eos # (Auto) Baso # (Auto) Abs Immat Gran (auto) Absolute Neuts (auto) Absolute Nucleated RBC Nucleated RBC % (auto) Neutrophils % (Manual) Band Neutrophils % Lymphocytes % (Manual) Atypical Lymphs % (Man) Monocytes % (Manual) Eosinophils % (Manual) Basophils % (Manual) Metamyelocytes % Myelocytes % Abs Neuts (Manual) Lymphocytes # (Manual) Atyp Lymphs # (Manual) Monocytes # (Manual) Eosinophils # (Manual) Basophils # (Manual) Metamyelocytes # Myelocytes # Nucleated RBCs Smudge Cells Dohle Bodies Platelet Estimate Large Platelets Plt Morphology Comment RBC Morphology Polychromasia Hypochromasia Basophilic Stippling Microcytosis Macrocytosis Pappenheimer Bodies Target Cells Tear Drop Cells Ovalocytes [place] Cells Acanthocytes (Spur) Smear Tech's Comments Smear Path Review ESR PT INR APTT aPTT Heparin Protocol D-Dimer High Sensitivty O2 Saturation ABG pH at Pt Temp ABG pH (Temp Correct) ABG pCO2 at Pt Temp ABG pCO2 (Temp Corrct ABG pO2 at Pt Temp ABG pO2 (Temp Correct ABG HCO3 ABG Base Excess (Actual) VBG pH 7.54 H VBG pCO2 30 VBG pO2 46 VBG HCO3 26 VBG O2 Saturation 79.0 VBG Base Excess 3.8 Sodium Potassium Chloride Carbon Dioxide Anion Gap BUN Creatinine Estim Creat Clear Calc Estimated GFR POC Glucose 77 74 Random Glucose Lactic Acid Lactic Acid F/U @ 2Hr Calcium Phosphorus Magnesium Ferritin Total Bilirubin Direct Bilirubin AST ALT Alkaline Phosphatase Ammonia Lactate Dehydrogenase Troponin I High Sens C-Reactive Protein B-Natriuretic Peptide Total Protein Albumin Procalcitonin Urine Color Urine Appearance Urine pH Ur Specific [place] Urine Protein Urine Glucose (UA) Urine Ketones Urine Blood Urine Nitrite Ur Leukocyte Esterase Urine RBC Urine WBC Ur Squamous Epith Cells Ur Renal Epithelial Cell Urine Bacteria Urine Yeast Nasal Screen MRSA (PCR) Nasal S. aureus Screen Nasal MRSA/S.aureus Interp Stool Occult Blood Stool Leukocytes, Qual Vancomycin Trough Random Vancomycin Urine Opiates Screen Urine Fentanyl Screen Ur Barbiturates Screen Ur Phencyclidine Scrn Ur Amphetamines Screen U Benzodiazepines Scrn Urine Cocaine Screen U Marijuana (THC) Screen C. difficile Tox B Gene COVID-19 ([facility]) COVID-19 Clin Com Hepatitis A IgM Ab Hep Bs Antigen Hep Bs Antibody Hep B Core Total Ab Hepatitis C Ab (EIA) HIV 1&2 Ab/P24 Ag 4thGn Ur L.pneumophila Ag SARS-CoV-2 IgG Ab Blood Type Antibody Screen Antigen Identification Crossmatch Crossmatch (AHG) 04/10/21 04/10/21 04/10/21 12:03 17:53 23:39 WBC RBC Hgb Hct MCV MCH MCHC RDW Plt Count MPV Immature Gran % (Auto) Neut % (Auto) Lymph % (Auto) [place] % (Auto) Eos % (Auto) Baso % (Auto) Lymph # (Auto) [place] # (Auto) Eos # (Auto) Baso # (Auto) Abs Immat Gran (auto) Absolute Neuts (auto) Absolute Nucleated RBC Nucleated RBC % (auto) Neutrophils % (Manual) Band Neutrophils % Lymphocytes % (Manual) Atypical Lymphs % (Man) Monocytes % (Manual) Eosinophils % (Manual) Basophils % (Manual) Metamyelocytes % Myelocytes % Abs Neuts (Manual) Lymphocytes # (Manual) Atyp Lymphs # (Manual) Monocytes # (Manual) Eosinophils # (Manual) Basophils # (Manual) Metamyelocytes # Myelocytes # Nucleated RBCs Smudge Cells Dohle Bodies Platelet Estimate Large Platelets Plt Morphology Comment RBC Morphology Polychromasia Hypochromasia Basophilic Stippling Microcytosis Macrocytosis Pappenheimer Bodies Target Cells Tear Drop Cells Ovalocytes Abi Cells Acanthocytes (Spur) Smear Tech's Comments Smear Path Review ESR PT INR APTT aPTT Heparin Protocol D-Dimer High Sensitivty O2 Saturation ABG pH at Pt Temp ABG pH (Temp Correct) ABG pCO2 at Pt Temp ABG pCO2 (Temp Corrct ABG pO2 at Pt Temp ABG pO2 (Temp Correct ABG HCO3 ABG Base Excess (Actual) VBG pH VBG pCO2 VBG pO2 VBG HCO3 VBG O2 Saturation VBG Base Excess Sodium Potassium Chloride Carbon Dioxide Anion Gap BUN Creatinine Estim Creat Clear Calc Estimated GFR POC Glucose 86 105 Random Glucose Lactic Acid Lactic Acid F/U @ 2Hr Calcium Phosphorus Magnesium Ferritin Total Bilirubin Direct Bilirubin AST ALT Alkaline Phosphatase Ammonia Lactate Dehydrogenase Troponin I High Sens C-Reactive Protein B-Natriuretic Peptide Total Protein Albumin Procalcitonin Urine Color Urine Appearance Urine pH Ur Specific [place] Urine Protein Urine Glucose (UA) Urine Ketones Urine Blood Urine Nitrite Ur Leukocyte Esterase Urine RBC Urine WBC Ur Squamous Epith Cells Ur Renal Epithelial Cell Urine Bacteria Urine Yeast Nasal Screen MRSA (PCR) Nasal S. aureus Screen Nasal MRSA/S.aureus Interp Stool Occult Blood Stool Leukocytes, Qual Vancomycin Trough Random Vancomycin 19.0 Urine Opiates Screen Urine Fentanyl Screen Ur Barbiturates Screen Ur Phencyclidine Scrn Ur Amphetamines Screen U Benzodiazepines Scrn Urine Cocaine Screen U Marijuana (THC) Screen C. difficile Tox B Gene COVID-19 ([facility]) COVID-19 Clin Com Hepatitis A IgM Ab Hep Bs Antigen Hep Bs Antibody Hep B Core Total Ab Hepatitis C Ab (EIA) HIV 1&2 Ab/P24 Ag 4thGn Ur L.pneumophila Ag SARS-CoV-2 IgG Ab Blood Type Antibody Screen Antigen Identification Crossmatch Crossmatch (AHG) 04/11/21 04/11/21 04/11/21 05:14 05:14 05:14 WBC 6.3 RBC 2.77 L Hgb 7.7 L Hct 24.1 L MCV 87.0 MCH 27.8 MCHC 32.0 RDW 16.8 H Plt Count 305 D MPV 9.5 Immature Gran % (Auto) Cancelled Neut % (Auto) Cancelled Lymph % (Auto) Cancelled [place] % (Auto) Cancelled Eos % (Auto) Cancelled Baso % (Auto) Cancelled Lymph # (Auto) Cancelled [place] # (Auto) Cancelled Eos # (Auto) Cancelled Baso # (Auto) Cancelled Abs Immat Gran (auto) Cancelled Absolute Neuts (auto) Cancelled Absolute Nucleated RBC 0.020 H Nucleated RBC % (auto) 0.3 H Neutrophils % (Manual) 52 Band Neutrophils % 21 H Lymphocytes % (Manual) 18 L Atypical Lymphs % (Man) 3 Monocytes % (Manual) 4 Eosinophils % (Manual) 1 Basophils % (Manual) Metamyelocytes % Myelocytes % 1 Abs Neuts (Manual) 4.6 Lymphocytes # (Manual) 1.1 L Atyp Lymphs # (Manual) 0.2 Monocytes # (Manual) 0.3 Eosinophils # (Manual) 0.1 Basophils # (Manual) Metamyelocytes # Myelocytes # 0.1 Nucleated RBCs 1 H Smudge Cells PRESENT Dohle Bodies PRESENT Platelet Estimate NORMAL Large Platelets PRESENT Plt Morphology Comment NOTED RBC Morphology NORMAL Polychromasia 1+ (0-2) Hypochromasia Basophilic Stippling Microcytosis Macrocytosis Pappenheimer Bodies Target Cells 1+ (5-14) Tear Drop Cells Ovalocytes [place] Cells Acanthocytes (Spur) Smear Tech's Comments Smear Path Review ESR PT 13.7 H INR 1.2 H APTT 32.5 aPTT Heparin Protocol D-Dimer High Sensitivty O2 Saturation ABG pH at Pt Temp ABG pH (Temp Correct) ABG pCO2 at Pt Temp ABG pCO2 (Temp Corrct ABG pO2 at Pt Temp ABG pO2 (Temp Correct ABG HCO3 ABG Base Excess (Actual) VBG pH VBG pCO2 VBG pO2 VBG HCO3 VBG O2 Saturation VBG Base Excess Sodium 137 Potassium 3.9 Chloride 101 Carbon Dioxide 25 Anion Gap 15 BUN 33 H Creatinine 3.27 H Estim Creat Clear Calc 21.7 Estimated GFR 15 POC Glucose Random Glucose 129 H Lactic Acid Lactic Acid F/U @ 2Hr Calcium 8.9 Phosphorus 3.9 Magnesium 1.9 Ferritin Total Bilirubin Direct Bilirubin AST ALT Alkaline Phosphatase Ammonia Lactate Dehydrogenase Troponin I High Sens C-Reactive Protein B-Natriuretic Peptide Total Protein Albumin 3.1 L Procalcitonin Urine Color Urine Appearance Urine pH Ur Specific [place] Urine Protein Urine Glucose (UA) Urine Ketones Urine Blood Urine Nitrite Ur Leukocyte Esterase Urine RBC Urine WBC Ur Squamous Epith Cells Ur Renal Epithelial Cell Urine Bacteria Urine Yeast Nasal Screen MRSA (PCR) Nasal S. aureus Screen Nasal MRSA/S.aureus Interp Stool Occult Blood Stool Leukocytes, Qual Vancomycin Trough Random Vancomycin Urine Opiates Screen Urine Fentanyl Screen Ur Barbiturates Screen Ur Phencyclidine Scrn Ur Amphetamines Screen U Benzodiazepines Scrn Urine Cocaine Screen U Marijuana (THC) Screen C. difficile Tox B Gene COVID-19 ([facility]) COVID-19 Clin Com Hepatitis A IgM Ab Hep Bs Antigen Hep Bs Antibody Hep B Core Total Ab Hepatitis C Ab (EIA) HIV 1&2 Ab/P24 Ag 4thGn Ur L.pneumophila Ag SARS-CoV-2 IgG Ab Blood Type Antibody Screen Antigen Identification Crossmatch Crossmatch (AHG) 04/11/21 04/11/21 04/11/21 05:15 05:35 11:19 WBC RBC Hgb Hct MCV MCH MCHC RDW Plt Count MPV Immature Gran % (Auto) Neut % (Auto) Lymph % (Auto) [place] % (Auto) Eos % (Auto) Baso % (Auto) Lymph # (Auto) [place] # (Auto) Eos # (Auto) Baso # (Auto) Abs Immat Gran (auto) Absolute Neuts (auto) Absolute Nucleated RBC Nucleated RBC % (auto) Neutrophils % (Manual) Band Neutrophils % Lymphocytes % (Manual) Atypical Lymphs % (Man) Monocytes % (Manual) Eosinophils % (Manual) Basophils % (Manual) Metamyelocytes % Myelocytes % Abs Neuts (Manual) Lymphocytes # (Manual) Atyp Lymphs # (Manual) Monocytes # (Manual) Eosinophils # (Manual) Basophils # (Manual) Metamyelocytes # Myelocytes # Nucleated RBCs Smudge Cells Dohle Bodies Platelet Estimate Large Platelets Plt Morphology Comment RBC Morphology Polychromasia Hypochromasia Basophilic Stippling Microcytosis Macrocytosis Pappenheimer Bodies Target Cells Tear Drop Cells Ovalocytes [place] Cells Acanthocytes (Spur) Smear Tech's Comments Smear Path Review ESR PT INR APTT aPTT Heparin Protocol D-Dimer High Sensitivty O2 Saturation ABG pH at Pt Temp ABG pH (Temp Correct) ABG pCO2 at Pt Temp ABG pCO2 (Temp Corrct ABG pO2 at Pt Temp ABG pO2 (Temp Correct ABG HCO3 ABG Base Excess (Actual) VBG pH 7.53 H VBG pCO2 30 VBG pO2 57 VBG HCO3 25 VBG O2 Saturation 88.0 VBG Base Excess 3.7 Sodium Potassium Chloride Carbon Dioxide Anion Gap BUN Creatinine Estim Creat Clear Calc Estimated GFR POC Glucose 123 H 99 Random Glucose Lactic Acid Lactic Acid F/U @ 2Hr Calcium Phosphorus Magnesium Ferritin Total Bilirubin Direct Bilirubin AST ALT Alkaline Phosphatase Ammonia Lactate Dehydrogenase Troponin I High Sens C-Reactive Protein B-Natriuretic Peptide Total Protein Albumin Procalcitonin Urine Color Urine Appearance Urine pH Ur Specific [place] Urine Protein Urine Glucose (UA) Urine Ketones Urine Blood Urine Nitrite Ur Leukocyte Esterase Urine RBC Urine WBC Ur Squamous Epith Cells Ur Renal Epithelial Cell Urine Bacteria Urine Yeast Nasal Screen MRSA (PCR) Nasal S. aureus Screen Nasal MRSA/S.aureus Interp Stool Occult Blood Stool Leukocytes, Qual Vancomycin Trough Random Vancomycin Urine Opiates Screen Urine Fentanyl Screen Ur Barbiturates Screen Ur Phencyclidine Scrn Ur Amphetamines Screen U Benzodiazepines Scrn Urine Cocaine Screen U Marijuana (THC) Screen C. difficile Tox B Gene COVID-19 ([facility]) COVID-19 Clin Com Hepatitis A IgM Ab Hep Bs Antigen Hep Bs Antibody Hep B Core Total Ab Hepatitis C Ab (EIA) HIV 1&2 Ab/P24 Ag 4thGn Ur L.pneumophila Ag SARS-CoV-2 IgG Ab Blood Type Antibody Screen Antigen Identification Crossmatch Crossmatch ([facility]G) Airway Other: pt is intubated Assessment and Plan Assessment Anesthesia Assessment: Anesthesia Plan Discussed Final Anesthetic Review Family History of Problems with Anesthesia: No History of Problems with Anesthesia: No NPO: Yes ASA Class: IV Final Preanesthetic Review: Meds/Allgs Chart Reviewed, Consent Obtained/Reviewed and Anes Risks/Benef Reviewed Patient Risk: High Procedure Risk: Intermediate Anesthetic Plan Anesthetic Plan: GA Disposition: Inp. Admit - ICU
--- NOTE | 2021-04-11 13:27 | MHC.CM.PN ---
Spoke with pt's dtr/HCP Anabel to review pt's plan of care. Pt to go to the OR today for a trach/peg placement and will then need to transition to [facility]. Anabel verbalized understanding and is receptive to plan. She will attempt contact with pt's primary HCP, partner James to inform him of this plan. Pt will remain in ICU over the weekend and CM will update [facility] on 04/14 in anticipation of transfer.
[2021-04-11] MEDS: propofoL 1,000 MG/100 ML VIAL 12.8 MG IVCONT ×2 (13:32→20:44)
--- NOTE | 2021-04-11 14:51 | P.OP_ITS ---
Operative Note Operative Note Date of Service: 04/11/21 Narrative: Preoperative diagnosis: Respiratory failure Postoperative diagnosis: Respiratory failure Operation: Tracheostomy and PEG tube placement and bronchoscopy Surgeon: Suzie Mukherjee MD [place] Supervisor: Kirby Chakraborty EBL: minimal Specimens: none Operation in detail: The patient was positioned on the bed with the head and neck extended. The neck was prepped and draped in standard sterile fashion. A time-out was performed confirming the correct patient, site, and procedure. We began the operation by performing a bronchoscopy which was done down to the subsegmental level bilaterally. There were thin secretions throughout and no endobronchial lesions. Once this was complete, and any specimens were obtained, the endotracheal tube was brought back to the level of the vocal cords with the bronchoscope still in it. This was all done by the wet process miller head assistant. The cuff was then deflated again with the bronchoscope in it and a needle was placed through the 2nd cartilaginous ring visualized on bronchoscopy and a wire was placed through the needle and left inside the trachea. A series of dilators was then used to dilate the space under vision. And over a wire and the 2 internal dilators the tracheostomy was inserted again under vision and the cuff was inflated. The bronchoscope was then placed through the tracheostomy visualizing the oswaldo about 4 cm from the oswaldo. Tracheostomy was then secured with nylon sutures and trach ties. We then placed the gastroscope into the oropharynx and into the esophagus traversing down into the stomach. Findings are no mucosal lesions in the esophagus stomach, GE junction, or 1st portion of the duodenum. The stomach was then insufflated and with the bedside wet process miller head assistant at the abdomen transilluminated. The point of transillumination was then marked on the abdominal skin. This area was then prepped and draped in a standard sterile fashion and a needle was inserted at that point into the stomach visualized by the gastroscope. The wire was then grasped with a loop and pulled up into the oropharynx with the scope. The wire was then looped into the PEG tube and pulled from the abdominal side back down into the stomach following closely with the gastroscope. The PEG tube was then positioned up against the abdominal wall snug but not too tight. This was then secured in place and a dressing was applied and connected to a Witt bag for drainage overnight. Patient tolerated the procedure well was brought back to the ICU in stable condition.
[2021-04-11] MEDS: fentaNYL citrate/NS 1,000 MCG/100 ML PLAST..BAG 2.5 MCG IVCONT (15:32)
[2021-04-11 16:01] LABS: Vancomycin Random 11.1 mcg/mL (15-20)
[2021-04-11] MEDS: vancomycin HCL 500 MG in 0.9 % Sodium Chloride 100 ML 110 MG IV (16:58)
[2021-04-11 17:51] LABS: Glucose, Whole Blood 79 mg/dL (60-115)
[2021-04-11 23:53] LABS: Glucose, Whole Blood 77 mg/dL (60-115)
[2021-04-12] VITALS (36 sets, daily range): BP systolic 97–135; BP diastolic 58–90; PULSE 105–127; RESP 12–39; TEMP 32–38.5; O2SAT 92–100; BMI 37.3
[2021-04-12] MEDS: propofoL 1,000 MG/100 ML VIAL 12.8 MG IVCONT (02:19)
[2021-04-12 05:40] LABS: Hematocrit 26.6 % (37.0-47.0); Hemoglobin 8.2 g/dl (12.0-16.0); Mean Corpuscular HGB Conc 30.8 g/dl (31.0-35.0); Mean Corpuscular Hemoglobin 27.7 pg (27.0-33.0); Mean Corpuscular Volume 89.9 fL (80.0-98.0); Mean Platelet Volume 9.3 fL (9.4-12.3); NRBC Pct Auto 0.3 /100WBC (0.0-0.2); Platelet Count 374 X10*3/uL (160-400); Red Blood Count 2.96 X10*6/uL (4.20-5.50); Red Cell Distribution Width 16.8 % (11.0-16.0); White Blood Count 7.2 X10*3/uL (4.8-10.8)
[2021-04-12 05:42] LABS: VBG Base Excess -4.2 mmol/L; VBG HCO3 18 mmol/L (22-26); VBG pCO2 24 mmHg; VBG pH 7.46 (7.32-7.43); VBG pO2 47 mmHg
[2021-04-12 05:47] LABS: Venous Blood Gas Refer to POC result
[2021-04-12 06:02] LABS: Anion Gap 14 (12-20); Blood Urea Nitrogen 20 mg/dL (9-16); Calcium 8.6 mg/dL (8.4-10.2); Carbon Dioxide 20 mmol/L (22-29); Chloride 104 mmol/L (96-108); Creatinine Clr Calc Pharmacy 30.4; Estimated Glomerular Filt Rate 21; Glucose Random 75 mg/dL (60-115); Magnesium 1.8 mg/dL (1.6-2.6); Phosphorus 3.4 mg/dL (2.7-4.5); Sodium 134 mmol/L (135-145)
[2021-04-12 06:06] LABS: Band Neutrophils Percent 3 % (3-5); Eosinophils Absolute Manual 0.2 X10*3/uL (0.0-0.4); Eosinophils Percent Manual 3 % (0-4); Lymphocytes Absolute Manual 1.6 X10*3/uL (1.2-4.9); Lymphocytes Percent Manual 22 % (20-40); Metamyelocytes Absolute 0.1 X10*3/uL; Metamyelocytes Percent 2 %; Monocytes Absolute Manual 0.8 X10*3/uL (0.1-1.2); Monocytes Percent Manual 11 % (2-11); Myelocytes Absolute 0.1 X10*/uL; Myelocytes Percent 2 %; Neutrophils Absolute Manual 4.3 X10*3/uL (2.0-8.3); Neutrophils Percent Manual 57 % (45-73)
[2021-04-12 06:08] LABS: RBC Morphology NOTED
[2021-04-12 06:09] LABS: Burr Cells 1+ (0-2) /OIF; Hypochromasia 1+ (5-14) /OIF; Polychromasia 1+ (0-2) /OIF; Schistocytes 1+ (0-2) /OIF
[2021-04-12 06:10] LABS: Dohle Bodies PRESENT; Ovalocytes 1+ (5-14) /OIF
[2021-04-12 06:11] LABS: Large Platelet PRESENT; Platelet Estimate NORMAL (NORMAL); Platelet Morphology Comment NOTED
[2021-04-12] MEDS: fentaNYL citrate/NS 1,000 MCG/100 ML PLAST..BAG 5 MCG IVCONT (07:16)
[2021-04-12] MEDS: Chlorhexidine Gluc Oral Rinse 15 ML MOUTHWASH BUCCAL ×3 (09:26→19:26)
[2021-04-12] MEDS: Famotidine/PF 20 MG/2 ML VIAL IVPUSH (09:26)
[2021-04-12] MEDS: Albumin Human 25 % 100 ML IV ×3 (09:39→21:19)
[2021-04-12] MEDS: Metoprolol Tartrate 25 MG TABLET PO ×2 (09:39→19:26)
--- NOTE | 2021-04-12 09:45 | PM.PNNEP ---
Subjective Subjective Date of Service: 04/12/21 Interval history: Events noted s/p Trach 04/11/21 Physical Exam Vital Signs: Vital Signs: Last Vital Signs Temp 98.7 F 04/12/21 09:00 Pulse 113 H 04/12/21 09:00 Resp 26 H 04/12/21 09:00 BP 97/61 04/12/21 09:00 Pulse Ox 95 04/12/21 09:00 BMI result Body Mass Index 37.3 Const: Other: Awake Reintubated 04/09/21 Lungs with Rhonchi Hrt : No gallop or rub Abd Obese Soft NS no asterexis General: ill appearing Objective Data Labs CBC & Chem 7: 04/12/21 05:26 04/12/21 05:26 Labs: Laboratory Results - last 24 hr 04/11/21 04/11/21 04/11/21 11:19 14:01 15:27 WBC RBC Hgb Hct MCV MCH MCHC RDW Plt Count MPV Immature Gran % (Auto) Neut % (Auto) Lymph % (Auto) [place] % (Auto) Eos % (Auto) Baso % (Auto) Lymph # (Auto) [place] # (Auto) Eos # (Auto) Baso # (Auto) Abs Immat Gran (auto) Absolute Neuts (auto) Absolute Nucleated RBC Nucleated RBC % (auto) Neutrophils % (Manual) Band Neutrophils % Lymphocytes % (Manual) Monocytes % (Manual) Eosinophils % (Manual) Metamyelocytes % Myelocytes % Abs Neuts (Manual) Lymphocytes # (Manual) Monocytes # (Manual) Eosinophils # (Manual) Metamyelocytes # Myelocytes # Dohle Bodies Platelet Estimate Large Platelets Plt Morphology Comment RBC Morphology Polychromasia Hypochromasia Ovalocytes [place] Cells Schistocytes VBG pH VBG pCO2 VBG pO2 VBG HCO3 VBG O2 Saturation VBG Base Excess Sodium Potassium Chloride Carbon Dioxide Anion Gap BUN Creatinine Estim Creat Clear Calc Estimated GFR POC Glucose 99 Random Glucose Calcium Phosphorus Magnesium Albumin Random Vancomycin 11.1 L Blood Type O Negative Antibody Screen POSITIVE Antibody Identification Anti-Jka Crossmatch (AHG) See Detail 04/11/21 04/11/21 04/12/21 17:46 23:41 05:26 WBC 7.2 RBC 2.96 L Hgb 8.2 L Hct 26.6 L MCV 89.9 MCH 27.7 MCHC 30.8 L RDW 16.8 H Plt Count 374 MPV 9.3 L Immature Gran % (Auto) Cancelled Neut % (Auto) Cancelled Lymph % (Auto) Cancelled [place] % (Auto) Cancelled Eos % (Auto) Cancelled Baso % (Auto) Cancelled Lymph # (Auto) Cancelled [place] # (Auto) Cancelled Eos # (Auto) Cancelled Baso # (Auto) Cancelled Abs Immat Gran (auto) Cancelled Absolute Neuts (auto) Cancelled Absolute Nucleated RBC 0.020 H Nucleated RBC % (auto) 0.3 H Neutrophils % (Manual) 57 Band Neutrophils % 3 Lymphocytes % (Manual) 22 Monocytes % (Manual) 11 Eosinophils % (Manual) 3 Metamyelocytes % 2 Myelocytes % 2 Abs Neuts (Manual) 4.3 Lymphocytes # (Manual) 1.6 Monocytes # (Manual) 0.8 Eosinophils # (Manual) 0.2 Metamyelocytes # 0.1 Myelocytes # 0.1 Dohle Bodies PRESENT Platelet Estimate NORMAL Large Platelets PRESENT Plt Morphology Comment NOTED RBC Morphology NOTED Polychromasia 1+ (0-2) Hypochromasia 1+ (5-14) Ovalocytes 1+ (5-14) Abi Cells 1+ (0-2) Schistocytes 1+ (0-2) VBG pH VBG pCO2 VBG pO2 VBG HCO3 VBG O2 Saturation VBG Base Excess Sodium Potassium Chloride Carbon Dioxide Anion Gap BUN Creatinine Estim Creat Clear Calc Estimated GFR POC Glucose 79 77 Random Glucose Calcium Phosphorus Magnesium Albumin Random Vancomycin Blood Type Antibody Screen Antibody Identification Crossmatch (AHG) 04/12/21 04/12/21 05:26 05:35 WBC RBC Hgb Hct MCV MCH MCHC RDW Plt Count MPV Immature Gran % (Auto) Neut % (Auto) Lymph % (Auto) [place] % (Auto) Eos % (Auto) Baso % (Auto) Lymph # (Auto) [place] # (Auto) Eos # (Auto) Baso # (Auto) Abs Immat Gran (auto) Absolute Neuts (auto) Absolute Nucleated RBC Nucleated RBC % (auto) Neutrophils % (Manual) Band Neutrophils % Lymphocytes % (Manual) Monocytes % (Manual) Eosinophils % (Manual) Metamyelocytes % Myelocytes % Abs Neuts (Manual) Lymphocytes # (Manual) Monocytes # (Manual) Eosinophils # (Manual) Metamyelocytes # Myelocytes # Dohle Bodies Platelet Estimate Large Platelets Plt Morphology Comment RBC Morphology Polychromasia Hypochromasia Ovalocytes Abi Cells Schistocytes VBG pH 7.46 H VBG pCO2 24 VBG pO2 47 VBG HCO3 18 L VBG O2 Saturation 79.0 VBG Base Excess -4.2 Sodium 134 L Potassium 4.0 Chloride 104 Carbon Dioxide 20 L Anion Gap 14 BUN 20 H Creatinine 2.33 H Estim Creat Clear Calc 30.4 Estimated GFR 21 POC Glucose Random Glucose 75 Calcium 8.6 Phosphorus 3.4 Magnesium 1.8 Albumin 3.0 L Random Vancomycin Blood Type Antibody Screen Antibody Identification Crossmatch ([facility]) Microbiology Microbiology Results: Microbiology 04/02/21 13:20 Sputum - Suctioned Gram Stain - Final 04/02/21 13:20 Sputum - Suctioned Sputum Culture - Final Methicillin Res Staph Aureus 03/24/21 16:49 Blood - Central Line Blood Culture - Final No growth after 5 days. 03/24/21 16:49 Blood - Central Line Blood Culture - Final No growth after 5 days. 03/24/21 16:50 Urine Catheterized - Witt Catheter Urine Culture - Final No growth. 03/18/21 19:37 Blood - Venous Blood Culture - Final No growth after 5 days. 03/18/21 19:37 Blood - Venous Blood Culture - Final Procedures Date of Service Date of Service: 04/12/21 Assessment & Plan Assessment and plan (1) JOAN (acute kidney injury): Status: Acute Plan JOAN superimposed on CKD /Uremia No obstruction by sonogram No proteinuria/Hematuria- AGN/AIN seem unlikely Probably has ATN- multifatorail s/p Shock COVID -19 Resp failure Plan HD 3 x week Need to plan for permcath No HD today Time Spent With Patient Time: Total time spent is greater than 50% in coordination of care (as documented) at patient's floor/unit and/or counseling patient: Progress Note: Quality Stroke Does the patient have a stroke diagnosis?: No
--- NOTE | 2021-04-12 10:21 | PM.CCPN ---
Subjective Subjective Date of Service: 04/12/21 Interval History: 60-year-old lady with underlying history of COPD on 2 L of supplemental oxygen, lung cancer on palliative XRT, polysubstance abuse now on methadone, seizure disorder, CKD, CHF admitted on 03/18/2021 with worsening alteration of mental status. On ER evaluation patient was noted to be COVID-19 positive, tachycardic and tachypneic, profoundly confused, then acutely developed hypoxia refractory to noninvasive supplemental oxygen support requiring intubation and ventilatory support. Patient was empirically covered with broad-spectrum antibiotic and transferred to intensive care unit. her troponin noted to be up trending she was started heparin drip. 2D echocardiogram demonstrated biventricular reduced systolic function. She was extubated on 03/21/2021, but required re-intubation for an aspiration. Further hospital course significant progressive renal dysfunction requiring initiation dialysis support and slow overall improvement in LVEF. Patient was again extubated 04/08/2021, however she required re-intubation on 04/09/2021 for development of respiratory distress hypoxia likely secondary to flash pulmonary edema. Status post tracheostomy and parenteral gastrostomy on 04/11/2021. No events overnight. Critical Care Time (minutes): 45 Physical Exam Vital Signs: Vital Signs: Last Vital Signs Temp 98.7 F 04/12/21 09:00 Pulse 109 H 04/12/21 10:00 Resp 20 04/12/21 10:00 BP 110/67 04/12/21 10:00 Pulse Ox 95 04/12/21 10:00 BMI result Body Mass Index 37.3 Const: General: no acute distress and lethargic ( arousable) Orientation/consciousness: lethargic ( arousable) Eyes: Sclerae: sclerae normal EOM: EOMs intact bilaterally Neck: Neck: Yes no lymphadenopathy, Yes trachea midline, Yes supple and Yes tracheostomy present ( on vent) Resp: Effort & Inspection: normal respiratory effort and no respiratory distress Auscultation: clear to auscultation bilaterally Cardio: Rate: tachycardic Rhythm: regular rhythm Heart sounds: no gallops, no murmurs and no rubs GI: Palpation (GI): Soft to palpation and Other GI palpation findings present ( Nontender) Auscultation: normal bowel sounds Extrem: General: Yes no pedal edema, No clubbing and No cyanosis Objective Data Labs CBC & Chem 7: 04/12/21 05:26 04/12/21 05:26 Labs: Laboratory Results - last 24 hr 04/11/21 04/11/21 04/11/21 11:19 14:01 15:27 WBC RBC Hgb Hct MCV MCH MCHC RDW Plt Count MPV Immature Gran % (Auto) Neut % (Auto) Lymph % (Auto) [place] % (Auto) Eos % (Auto) Baso % (Auto) Lymph # (Auto) [place] # (Auto) Eos # (Auto) Baso # (Auto) Abs Immat Gran (auto) Absolute Neuts (auto) Absolute Nucleated RBC Nucleated RBC % (auto) Neutrophils % (Manual) Band Neutrophils % Lymphocytes % (Manual) Monocytes % (Manual) Eosinophils % (Manual) Metamyelocytes % Myelocytes % Abs Neuts (Manual) Lymphocytes # (Manual) Monocytes # (Manual) Eosinophils # (Manual) Metamyelocytes # Myelocytes # Dohle Bodies Platelet Estimate Large Platelets Plt Morphology Comment RBC Morphology Polychromasia Hypochromasia Ovalocytes Abi Cells Schistocytes VBG pH VBG pCO2 VBG pO2 VBG HCO3 VBG O2 Saturation VBG Base Excess Sodium Potassium Chloride Carbon Dioxide Anion Gap BUN Creatinine Estim Creat Clear Calc Estimated GFR POC Glucose 99 Random Glucose Calcium Phosphorus Magnesium Albumin Random Vancomycin 11.1 L Blood Type O Negative Antibody Screen POSITIVE Antibody Identification Anti-Jka Crossmatch (AHG) See Detail 04/11/21 04/11/21 04/12/21 17:46 23:41 05:26 WBC 7.2 RBC 2.96 L Hgb 8.2 L Hct 26.6 L MCV 89.9 MCH 27.7 MCHC 30.8 L RDW 16.8 H Plt Count 374 MPV 9.3 L Immature Gran % (Auto) Cancelled Neut % (Auto) Cancelled Lymph % (Auto) Cancelled [place] % (Auto) Cancelled Eos % (Auto) Cancelled Baso % (Auto) Cancelled Lymph # (Auto) Cancelled [place] # (Auto) Cancelled Eos # (Auto) Cancelled Baso # (Auto) Cancelled Abs Immat Gran (auto) Cancelled Absolute Neuts (auto) Cancelled Absolute Nucleated RBC 0.020 H Nucleated RBC % (auto) 0.3 H Neutrophils % (Manual) 57 Band Neutrophils % 3 Lymphocytes % (Manual) 22 Monocytes % (Manual) 11 Eosinophils % (Manual) 3 Metamyelocytes % 2 Myelocytes % 2 Abs Neuts (Manual) 4.3 Lymphocytes # (Manual) 1.6 Monocytes # (Manual) 0.8 Eosinophils # (Manual) 0.2 Metamyelocytes # 0.1 Myelocytes # 0.1 Dohle Bodies PRESENT Platelet Estimate NORMAL Large Platelets PRESENT Plt Morphology Comment NOTED RBC Morphology NOTED Polychromasia 1+ (0-2) Hypochromasia 1+ (5-14) Ovalocytes 1+ (5-14) [place] Cells 1+ (0-2) Schistocytes 1+ (0-2) VBG pH VBG pCO2 VBG pO2 VBG HCO3 VBG O2 Saturation VBG Base Excess Sodium Potassium Chloride Carbon Dioxide Anion Gap BUN Creatinine Estim Creat Clear Calc Estimated GFR POC Glucose 79 77 Random Glucose Calcium Phosphorus Magnesium Albumin Random Vancomycin Blood Type Antibody Screen Antibody Identification Crossmatch ([facility]) 04/12/21 04/12/21 05:26 05:35 WBC RBC Hgb Hct MCV MCH MCHC RDW Plt Count MPV Immature Gran % (Auto) Neut % (Auto) Lymph % (Auto) [place] % (Auto) Eos % (Auto) Baso % (Auto) Lymph # (Auto) [place] # (Auto) Eos # (Auto) Baso # (Auto) Abs Immat Gran (auto) Absolute Neuts (auto) Absolute Nucleated RBC Nucleated RBC % (auto) Neutrophils % (Manual) Band Neutrophils % Lymphocytes % (Manual) Monocytes % (Manual) Eosinophils % (Manual) Metamyelocytes % Myelocytes % Abs Neuts (Manual) Lymphocytes # (Manual) Monocytes # (Manual) Eosinophils # (Manual) Metamyelocytes # Myelocytes # Dohle Bodies Platelet Estimate Large Platelets Plt Morphology Comment RBC Morphology Polychromasia Hypochromasia Ovalocytes Abi Cells Schistocytes VBG pH 7.46 H VBG pCO2 24 VBG pO2 47 VBG HCO3 18 L VBG O2 Saturation 79.0 VBG Base Excess -4.2 Sodium 134 L Potassium 4.0 Chloride 104 Carbon Dioxide 20 L Anion Gap 14 BUN 20 H Creatinine 2.33 H Estim Creat Clear Calc 30.4 Estimated GFR 21 POC Glucose Random Glucose 75 Calcium 8.6 Phosphorus 3.4 Magnesium 1.8 Albumin 3.0 L Random Vancomycin Blood Type Antibody Screen Antibody Identification Crossmatch ([facility]) Microbiology Microbiology Results: Microbiology 04/02/21 13:20 Sputum - Suctioned Gram Stain - Final 04/02/21 13:20 Sputum - Suctioned Sputum Culture - Final Methicillin Res Staph Aureus 03/24/21 16:49 Blood - Central Line Blood Culture - Final No growth after 5 days. 03/24/21 16:49 Blood - Central Line Blood Culture - Final No growth after 5 days. 03/24/21 16:50 Urine Catheterized - Witt Catheter Urine Culture - Final No growth. 03/18/21 19:37 Blood - Venous Blood Culture - Final No growth after 5 days. 03/18/21 19:37 Blood - Venous Blood Culture - Final Progress Note: A&P Assessment and plan (1) Failure to wean from mechanical ventilation: Status: Acute (2) Lung cancer: Status: Acute (3) Respiratory failure: Status: Acute (4) COPD (chronic obstructive pulmonary disease): Status: Acute (5) LEO (obstructive sleep apnea): Status: Acute (6) JOAN (acute kidney injury): Status: Acute Plan Assessment: 60-year-old lady with underlying morbid obesity, LEO, obesity hyperventilation COPD 2 L dependent, remote history of cardiac arrest, CKD stage IV admitted with alteration of mental status, uremia COVID-19, acute hypoxic respiratory failure now requiring ventilatory and hemodialysis support. Plan: Neuro: Acute metabolic encephalopathy likely secondary to uremia, improved significantly with resolution of uremia. Cardiac: NSTEMI versus demand ischemia. Initial 2D echocardiogram with biventricular systolic congestive heart failure, now with slow improvement. Pulmonary: Acute hypoxic respiratory failure on the background of COVID-19 initially requiring ventilatory support. Extubated 03/21/2021, later requiring re-intubation for an aspiration event. Extubated again on 04/08/2021 and required re-intubation 04/09/2021 secondary to development of respiratory distress with hypoxia likely secondary to flash pulmonary edema. Status post tracheostomy and parenteral gastrostomy on 04/11/2021. continue to titrate of ventilatory support as tolerated. Renal: Acute renal failure on the background of chronic kidney disease, may be related to COVID-19. Now requiring hemodialysis support. Nephrology service care appreciated. Endo: No acute issues. GI: No acute issues. ID: [id number] , resolved. To finished 7 day vancomycin for MRSA in sputum on 04/12/2021. Heme/Onc: No acute issues. Psych: No acute issues. Miscellaneous: No acute issues. Prophylaxis: Heparin, ppi Diet: Tube feeds Critical care time spent: 45 minutes Quality Stroke Does the patient have a stroke diagnosis?: No VTE Prior VTE?: No VTE Risk Level:: Medical - moderate - high VTE Device Contraindication: Treatment Not Indicated VTE Drug Contraindication: N/A - Med Ordered
[2021-04-12] MEDS: Heparin Sodium,Porcine 5,000 UNIT/ML VIAL 5000 UNIT SUBCUT ×2 (11:18→17:48)
[2021-04-12 11:23] LABS: Glucose, Whole Blood 80 mg/dL (60-115)
[2021-04-12] MEDS: Metoprolol Tartrate 5 MG/5 ML VIAL IVPUSH (15:17)
[2021-04-12 17:17] LABS: Glucose, Whole Blood 85 mg/dL (60-115)
--- NOTE | 2021-04-12 18:21 | HO.POSTANES ---
Post Anesthesia Evaluation Post Anesthesia Evaluation Vital Signs: Vital Signs Temp Pulse Resp BP Pulse Ox 04/12/21 18:00 119 H 28 H 120/75 94 04/12/21 17:00 100.2 F 121 H 23 H 111/60 95 04/12/21 15:58 100.6 F H 118 H 31 H 110/81 96 04/12/21 15:47 116 H 04/12/21 15:00 122 H 26 H 133/78 98 04/12/21 14:01 29 H 04/12/21 14:00 120 H 19 135/90 H 96 04/12/21 13:00 119 H 26 H 129/85 97 04/12/21 12:00 99.9 F 113 H 36 H 114/71 97 04/12/21 11:00 108 H 39 H 109/73 97 04/12/21 10:00 109 H 20 110/67 95 04/12/21 09:00 98.7 F 113 H 26 H 97/61 95 04/12/21 08:00 98.7 F 119 H 20 100/58 L 93 04/12/21 07:54 103/62 04/12/21 07:16 124/75 04/12/21 07:00 112 H 17 124/75 94 Anesthesia: General Endotracheal-GETA Mental Status: Sedated Pain Control: Satisfactory Nausea/Vomiting: None Hydration: Adequate Anesthesia-Related Issues: No Anes. Related Issues
[2021-04-12] MEDS: fentaNYL citrate/NS 1,000 MCG/100 ML PLAST..BAG 10 MCG IVCONT (19:27)
[2021-04-12] MEDS: Acetaminophen Oral Liquid 650 MG/20.3 ML SOLUTION PO (22:33)
[2021-04-13] VITALS (41 sets, daily range): BP systolic 77–128; BP diastolic 43–79; PULSE 36–129; RESP 15–38; TEMP 32–38.1; O2SAT 90–97; BMI 36.0
[2021-04-13] MEDS: Midazolam HCl/PF 2 MG/2 ML VIAL IVPUSH ×2 (00:17→06:25)
[2021-04-13 00:33] LABS: Glucose, Whole Blood 95 mg/dL (60-115)
[2021-04-13] MEDS: fentaNYL citrate/NS 1,000 MCG/100 ML PLAST..BAG 12.5 MCG IVCONT (03:46)
[2021-04-13] MEDS: Heparin Sodium,Porcine 5,000 UNIT/ML VIAL 5000 UNIT SUBCUT (03:46)
[2021-04-13] MEDS: Albumin Human 25 % 100 ML IV (03:47)
[2021-04-13 05:30] LABS: VBG Base Excess -6.5 mmol/L; VBG HCO3 15 mmol/L (22-26); VBG pCO2 21 mmHg; VBG pH 7.46 (7.32-7.43); VBG pO2 47 mmHg
[2021-04-13 05:32] LABS: Venous Blood Gas Refer to POC result
[2021-04-13 05:32] LABS: Glucose, Whole Blood 126 mg/dL (60-115)
[2021-04-13 05:46] LABS: Hematocrit 21.9 % (37.0-47.0); Mean Corpuscular HGB Conc 31.5 g/dl (31.0-35.0); Mean Corpuscular Hemoglobin 27.8 pg (27.0-33.0); Mean Corpuscular Volume 88.3 fL (80.0-98.0); Mean Platelet Volume 9.2 fL (9.4-12.3); Platelet Count 360 X10*3/uL (160-400); Red Blood Count 2.48 X10*6/uL (4.20-5.50); Red Cell Distribution Width 17.2 % (11.0-16.0); White Blood Count 7.1 X10*3/uL (4.8-10.8)
[2021-04-13 05:48] LABS: Hemoglobin 6.9 g/dl (12.0-16.0)
[2021-04-13 06:00] LABS: Band Neutrophils Percent 12 % (3-5); Basophils Abs Manual 0.1 X10*3/uL (0.0-0.2); Basophils Percent Manual 1 % (0-2); Eosinophils Absolute Manual 0.3 X10*3/uL (0.0-0.4); Eosinophils Percent Manual 4 % (0-4); Lymphocytes Absolute Manual 1.5 X10*3/uL (1.2-4.9); Lymphocytes Percent Manual 21 % (20-40); Metamyelocytes Absolute 0.1 X10*3/uL; Metamyelocytes Percent 1 %; Monocytes Absolute Manual 0.8 X10*3/uL (0.1-1.2); Monocytes Percent Manual 11 % (2-11); Neutrophils Absolute Manual 4.4 X10*3/uL (2.0-8.3); Neutrophils Percent Manual 50 % (45-73); Nucleated Red Blood Cells 1 /100WBC (0-0)
[2021-04-13 06:03] LABS: Albumin Level 4.1 g/dL (3.5-5.0); Anion Gap 21 (12-20); Blood Urea Nitrogen 29 mg/dL (9-16); Calcium 9.4 mg/dL (8.4-10.2); Carbon Dioxide 15 mmol/L (22-29); Chloride 104 mmol/L (96-108); Creatinine Clr Calc Pharmacy 20.7; Estimated Glomerular Filt Rate 14; Glucose Random 110 mg/dL (60-115); Magnesium 1.9 mg/dL (1.6-2.6); Phosphorus 3.5 mg/dL (2.7-4.5); Potassium 4.2 mmol/L (3.3-5.1); Sodium 136 mmol/L (135-145)
[2021-04-13 06:06] LABS: Hypochromasia 1+ (5-14) /OIF; Polychromasia 1+ (0-2) /OIF; RBC Morphology NOTED; Schistocytes 1+ (0-2) /OIF
[2021-04-13 06:08] LABS: Giant Platelet PRESENT; Large Platelet PRESENT; Platelet Estimate NORMAL (NORMAL); Platelet Morphology Comment NOTED
[2021-04-13] MEDS: Metoprolol Tartrate 25 MG TABLET PO ×2 (08:26→20:07)
[2021-04-13] MEDS: Famotidine/PF 20 MG/2 ML VIAL IVPUSH (08:26)
[2021-04-13] MEDS: Chlorhexidine Gluc Oral Rinse 15 ML MOUTHWASH BUCCAL ×3 (08:26→20:07)
[2021-04-13] MEDS: fentaNYL citrate/NS 1,000 MCG/100 ML PLAST..BAG 20 MCG IVCONT (09:13)
--- NOTE | 2021-04-13 09:57 | P.PNNP_ITS ---
Subjective Subjective Date of Service: 04/13/21 Interval history: Events noted FiO2 at 24% UO noted Physical Exam Vital Signs: Vital Signs: Last Vital Signs Temp 97.3 F 04/13/21 07:00 Pulse 109 H 04/13/21 09:00 Resp 23 H 04/13/21 09:00 BP 127/75 04/13/21 09:00 Pulse Ox 95 04/13/21 09:00 BMI result Body Mass Index 36.0 Const: Other: Awake Reintubated 04/09/21 Now on Trach Lungs with Rhonchi Hrt : No gallop or rub Abd Obese Soft NS no asterexis General: ill appearing Objective Data Labs CBC & Chem 7: 04/13/21 05:20 04/13/21 05:20 Labs: Laboratory Results - last 24 hr 04/11/21 04/12/21 04/12/21 14:01 11:18 17:07 WBC RBC Hgb Hct MCV MCH MCHC RDW Plt Count MPV Immature Gran % (Auto) Neut % (Auto) Lymph % (Auto) [place] % (Auto) Eos % (Auto) Baso % (Auto) Lymph # (Auto) [place] # (Auto) Eos # (Auto) Baso # (Auto) Abs Immat Gran (auto) Absolute Neuts (auto) Absolute Nucleated RBC Nucleated RBC % (auto) Neutrophils % (Manual) Band Neutrophils % Lymphocytes % (Manual) Monocytes % (Manual) Eosinophils % (Manual) Basophils % (Manual) Metamyelocytes % Abs Neuts (Manual) Lymphocytes # (Manual) Monocytes # (Manual) Eosinophils # (Manual) Basophils # (Manual) Metamyelocytes # Nucleated RBCs Platelet Estimate Large Platelets Giant Platelets Plt Morphology Comment RBC Morphology Polychromasia Hypochromasia Schistocytes VBG pH VBG pCO2 VBG pO2 VBG HCO3 VBG O2 Saturation VBG Base Excess Sodium Potassium Chloride Carbon Dioxide Anion Gap BUN Creatinine Estim Creat Clear Calc Estimated GFR POC Glucose 80 85 Random Glucose Calcium Phosphorus Magnesium Albumin Blood Type O Negative Antibody Screen POSITIVE Antibody Identification Anti-Jka Crossmatch (AHG) See Detail 04/13/21 04/13/21 04/13/21 00:29 05:20 05:20 WBC 7.1 RBC 2.48 L Hgb 6.9 L* Hct 21.9 L MCV 88.3 MCH 27.8 MCHC 31.5 RDW 17.2 H Plt Count 360 MPV 9.2 L Immature Gran % (Auto) Cancelled Neut % (Auto) Cancelled Lymph % (Auto) Cancelled [place] % (Auto) Cancelled Eos % (Auto) Cancelled Baso % (Auto) Cancelled Lymph # (Auto) Cancelled [place] # (Auto) Cancelled Eos # (Auto) Cancelled Baso # (Auto) Cancelled Abs Immat Gran (auto) Cancelled Absolute Neuts (auto) Cancelled Absolute Nucleated RBC 0.000 Nucleated RBC % (auto) 0.0 Neutrophils % (Manual) 50 Band Neutrophils % 12 H Lymphocytes % (Manual) 21 Monocytes % (Manual) 11 Eosinophils % (Manual) 4 Basophils % (Manual) 1 Metamyelocytes % 1 Abs Neuts (Manual) 4.4 Lymphocytes # (Manual) 1.5 Monocytes # (Manual) 0.8 Eosinophils # (Manual) 0.3 Basophils # (Manual) 0.1 Metamyelocytes # 0.1 Nucleated RBCs 1 H Platelet Estimate NORMAL Large Platelets PRESENT Giant Platelets PRESENT Plt Morphology Comment NOTED RBC Morphology NOTED Polychromasia 1+ (0-2) Hypochromasia 1+ (5-14) Schistocytes 1+ (0-2) VBG pH VBG pCO2 VBG pO2 VBG HCO3 VBG O2 Saturation VBG Base Excess Sodium 136 Potassium 4.2 Chloride 104 Carbon Dioxide 15 L Anion Gap 21 H BUN 29 H Creatinine 3.31 H Estim Creat Clear Calc 20.7 Estimated GFR 14 POC Glucose 95 Random Glucose 110 Calcium 9.4 D Phosphorus 3.5 Magnesium 1.9 Albumin 4.1 D Blood Type Antibody Screen Antibody Identification Crossmatch ([facility]) 04/13/21 04/13/21 05:24 05:25 WBC RBC Hgb Hct MCV MCH MCHC RDW Plt Count MPV Immature Gran % (Auto) Neut % (Auto) Lymph % (Auto) [place] % (Auto) Eos % (Auto) Baso % (Auto) Lymph # (Auto) [place] # (Auto) Eos # (Auto) Baso # (Auto) Abs Immat Gran (auto) Absolute Neuts (auto) Absolute Nucleated RBC Nucleated RBC % (auto) Neutrophils % (Manual) Band Neutrophils % Lymphocytes % (Manual) Monocytes % (Manual) Eosinophils % (Manual) Basophils % (Manual) Metamyelocytes % Abs Neuts (Manual) Lymphocytes # (Manual) Monocytes # (Manual) Eosinophils # (Manual) Basophils # (Manual) Metamyelocytes # Nucleated RBCs Platelet Estimate Large Platelets Giant Platelets Plt Morphology Comment RBC Morphology Polychromasia Hypochromasia Schistocytes VBG pH 7.46 H VBG pCO2 21 VBG pO2 47 VBG HCO3 15 L VBG O2 Saturation 79.0 VBG Base Excess -6.5 Sodium Potassium Chloride Carbon Dioxide Anion Gap BUN Creatinine Estim Creat Clear Calc Estimated GFR POC Glucose 126 H Random Glucose Calcium Phosphorus Magnesium Albumin Blood Type Antibody Screen Antibody Identification Crossmatch ([facility]) Microbiology Microbiology Results: Microbiology 04/02/21 13:20 Sputum - Suctioned Gram Stain - Final 04/02/21 13:20 Sputum - Suctioned Sputum Culture - Final Methicillin Res Staph Aureus 03/24/21 16:49 Blood - Central Line Blood Culture - Final No growth after 5 days. 03/24/21 16:49 Blood - Central Line Blood Culture - Final No growth after 5 days. 03/24/21 16:50 Urine Catheterized - Witt Catheter Urine Culture - Final No growth. 03/18/21 19:37 Blood - Venous Blood Culture - Final No growth after 5 days. 03/18/21 19:37 Blood - Venous Blood Culture - Final Procedures Date of Service Date of Service: 04/13/21 Assessment & Plan Assessment and plan (1) JOAN (acute kidney injury): Status: Acute Plan JOAN superimposed on CKD /Uremia No obstruction by sonogram No proteinuria/Hematuria- AGN/AIN seem unlikely Probably has ATN- multifatorail s/p Shock COVID -19 Resp failure = s/p Trach Plan HD 3 x week Need to plan for permcath Lasix IV x 1 dose today HD on Wednesday Time Spent With Patient Time: Total time spent is greater than 50% in coordination of care (as documented) at patient's floor/unit and/or counseling patient: Time with patient: 15 - 24 minutes Progress Note: Quality Stroke Does the patient have a stroke diagnosis?: No
[2021-04-13] MEDS: dexmedeTOMIDidine HCL/NS 400 MCG/100 ML INFUS..BTL 23.8 MCG IVCONT ×2 (09:59→21:50)
--- NOTE | 2021-04-13 10:08 | P.PNCC_ITS ---
Subjective Subjective Date of Service: 04/13/21 Interval History: ICU day 19 for acute on chronic respiratory failure, failure to wean from mechanical ventilation, congestive heart failure, kidney failure. 60-year-old lady with underlying history of COPD on 2 L of supplemental oxygen, lung cancer on palliative XRT, polysubstance abuse now on methadone, seizure disorder, CKD, CHF admitted on 03/18/2021 with worsening alteration of mental status. On ER evaluation patient was noted to be COVID-19 positive, tachycardic and tachypneic, profoundly confused, then acutely developed hypoxia refractory to noninvasive supplemental oxygen support requiring intubation and ventilatory support. Patient was empirically covered with broad-spectrum antibiotic and transferred to intensive care unit. her troponin noted to be up trending she was started heparin drip. 2D echocardiogram demonstrated biventricular reduced systolic function. She was extubated on 03/21/2021, but required re-intubation for an aspiration. Further hospital course significant progressive renal dysfunction requiring initiation dialysis support and slow overall improvement in LVEF. Patient was again extubated 04/08/2021, however she required re- intubation on 04/09/2021 for development of respiratory distress hypoxia likely secondary to flash pulmonary edema. Status post tracheostomy and parenteral gastrostomy on 04/11/2021. No events overnight. Critical Care Time (minutes): 45 Physical Exam Vital Signs: Vital Signs: Last Vital Signs Temp 100.2 F 04/13/21 10:07 Pulse 36 L 04/13/21 10:07 Resp 38 H 04/13/21 10:07 BP 105/67 04/13/21 10:07 Pulse Ox 95 04/13/21 09:00 BMI result Body Mass Index 36.0 Const: General: no acute distress, alert, awake and anxious Nutritional Appearance: obese Eyes: Sclerae: sclerae normal EOM: EOMs intact bilaterally Neck: Neck: Yes no lymphadenopathy, Yes trachea midline and Yes supple Resp: Auscultation: crackles ( bilateral ) Cardio: Rate: tachycardic Rhythm: regular rhythm Heart sounds: no gallops, no murmurs and no rubs GI: Palpation (GI): Soft to palpation and Other GI palpation findings present ( Nontender) Auscultation: normal bowel sounds Extrem: General: Yes no pedal edema, No clubbing and No cyanosis Objective Data Labs CBC & Chem 7: 04/13/21 05:20 04/13/21 05:20 Labs: Laboratory Results - last 24 hr 04/11/21 04/12/21 04/12/21 14:01 11:18 17:07 WBC RBC Hgb Hct MCV MCH MCHC RDW Plt Count MPV Immature Gran % (Auto) Neut % (Auto) Lymph % (Auto) [place] % (Auto) Eos % (Auto) Baso % (Auto) Lymph # (Auto) [place] # (Auto) Eos # (Auto) Baso # (Auto) Abs Immat Gran (auto) Absolute Neuts (auto) Absolute Nucleated RBC Nucleated RBC % (auto) Neutrophils % (Manual) Band Neutrophils % Lymphocytes % (Manual) Monocytes % (Manual) Eosinophils % (Manual) Basophils % (Manual) Metamyelocytes % Abs Neuts (Manual) Lymphocytes # (Manual) Monocytes # (Manual) Eosinophils # (Manual) Basophils # (Manual) Metamyelocytes # Nucleated RBCs Platelet Estimate Large Platelets Giant Platelets Plt Morphology Comment RBC Morphology Polychromasia Hypochromasia Schistocytes VBG pH VBG pCO2 VBG pO2 VBG HCO3 VBG O2 Saturation VBG Base Excess Sodium Potassium Chloride Carbon Dioxide Anion Gap BUN Creatinine Estim Creat Clear Calc Estimated GFR POC Glucose 80 85 Random Glucose Calcium Phosphorus Magnesium Albumin Blood Type O Negative Antibody Screen POSITIVE Antibody Identification Anti-Jka Crossmatch (AHG) See Detail 04/13/21 04/13/21 04/13/21 00:29 05:20 05:20 WBC 7.1 RBC 2.48 L Hgb 6.9 L* Hct 21.9 L MCV 88.3 MCH 27.8 MCHC 31.5 RDW 17.2 H Plt Count 360 MPV 9.2 L Immature Gran % (Auto) Cancelled Neut % (Auto) Cancelled Lymph % (Auto) Cancelled [place] % (Auto) Cancelled Eos % (Auto) Cancelled Baso % (Auto) Cancelled Lymph # (Auto) Cancelled [place] # (Auto) Cancelled Eos # (Auto) Cancelled Baso # (Auto) Cancelled Abs Immat Gran (auto) Cancelled Absolute Neuts (auto) Cancelled Absolute Nucleated RBC 0.000 Nucleated RBC % (auto) 0.0 Neutrophils % (Manual) 50 Band Neutrophils % 12 H Lymphocytes % (Manual) 21 Monocytes % (Manual) 11 Eosinophils % (Manual) 4 Basophils % (Manual) 1 Metamyelocytes % 1 Abs Neuts (Manual) 4.4 Lymphocytes # (Manual) 1.5 Monocytes # (Manual) 0.8 Eosinophils # (Manual) 0.3 Basophils # (Manual) 0.1 Metamyelocytes # 0.1 Nucleated RBCs 1 H Platelet Estimate NORMAL Large Platelets PRESENT Giant Platelets PRESENT Plt Morphology Comment NOTED RBC Morphology NOTED Polychromasia 1+ (0-2) Hypochromasia 1+ (5-14) Schistocytes 1+ (0-2) VBG pH VBG pCO2 VBG pO2 VBG HCO3 VBG O2 Saturation VBG Base Excess Sodium 136 Potassium 4.2 Chloride 104 Carbon Dioxide 15 L Anion Gap 21 H BUN 29 H Creatinine 3.31 H Estim Creat Clear Calc 20.7 Estimated GFR 14 POC Glucose 95 Random Glucose 110 Calcium 9.4 D Phosphorus 3.5 Magnesium 1.9 Albumin 4.1 D Blood Type Antibody Screen Antibody Identification Crossmatch ([facility]) 04/13/21 04/13/21 05:24 05:25 WBC RBC Hgb Hct MCV MCH MCHC RDW Plt Count MPV Immature Gran % (Auto) Neut % (Auto) Lymph % (Auto) [place] % (Auto) Eos % (Auto) Baso % (Auto) Lymph # (Auto) [place] # (Auto) Eos # (Auto) Baso # (Auto) Abs Immat Gran (auto) Absolute Neuts (auto) Absolute Nucleated RBC Nucleated RBC % (auto) Neutrophils % (Manual) Band Neutrophils % Lymphocytes % (Manual) Monocytes % (Manual) Eosinophils % (Manual) Basophils % (Manual) Metamyelocytes % Abs Neuts (Manual) Lymphocytes # (Manual) Monocytes # (Manual) Eosinophils # (Manual) Basophils # (Manual) Metamyelocytes # Nucleated RBCs Platelet Estimate Large Platelets Giant Platelets Plt Morphology Comment RBC Morphology Polychromasia Hypochromasia Schistocytes VBG pH 7.46 H VBG pCO2 21 VBG pO2 47 VBG HCO3 15 L VBG O2 Saturation 79.0 VBG Base Excess -6.5 Sodium Potassium Chloride Carbon Dioxide Anion Gap BUN Creatinine Estim Creat Clear Calc Estimated GFR POC Glucose 126 H Random Glucose Calcium Phosphorus Magnesium Albumin Blood Type Antibody Screen Antibody Identification Crossmatch ([facility]) Microbiology Microbiology Results: Microbiology 04/02/21 13:20 Sputum - Suctioned Gram Stain - Final 04/02/21 13:20 Sputum - Suctioned Sputum Culture - Final Methicillin Res Staph Aureus 03/24/21 16:49 Blood - Central Line Blood Culture - Final No growth after 5 days. 03/24/21 16:49 Blood - Central Line Blood Culture - Final No growth after 5 days. 03/24/21 16:50 Urine Catheterized - Witt Catheter Urine Culture - Final No growth. 03/18/21 19:37 Blood - Venous Blood Culture - Final No growth after 5 days. 03/18/21 19:37 Blood - Venous Blood Culture - Final Progress Note: A&P Assessment and plan (1) Failure to wean from mechanical ventilation: Status: Acute (2) Lung cancer: Status: Acute (3) Restrictive lung disease: Status: Acute (4) COPD (chronic obstructive pulmonary disease): Status: Acute (5) Acute respiratory failure with hypoxia: Status: Acute (6) LEO (obstructive sleep apnea): Status: Acute (7) Acute on chronic systolic (congestive) heart failure: Status: Acute (8) JOAN (acute kidney injury): Status: Acute Plan Assessment: 60-year-old lady with underlying morbid obesity, LEO, obesity hyperventilation COPD 2 L dependent, remote history of cardiac arrest, CKD stage IV admitted with alteration of mental status, uremia COVID-19, acute hypoxic respiratory failure now requiring ventilatory and hemodialysis support. Plan: Neuro: Acute metabolic encephalopathy likely secondary to uremia, improved significantly with resolution of uremia. Cardiac: NSTEMI versus demand ischemia. Initial 2D echocardiogram with biventricular systolic congestive heart failure, now with slow improvement. Pulmonary: Acute hypoxic respiratory failure on the background of COVID-19 initially requiring ventilatory support. Extubated 03/21/2021, later requiring re-intubation for an aspiration event. Extubated again on 04/08/2021 and required re-intubation 04/09/2021 secondary to development of respiratory distress with hypoxia likely secondary to flash pulmonary edema. Status post tracheostomy and parenteral gastrostomy on 04/11/2021. continue to titrate off ventilatory support as tolerated. Renal: Acute renal failure on the background of chronic kidney disease, may be related to COVID-19. Now requiring hemodialysis support. Nephrology service care appreciated. Endo: No acute issues. GI: No acute issues. ID: [id number] , resolved. Finished 7 day vancomycin for MRSA in sputum on 04/12/2021. Heme/Onc: No acute issues. Psych: No acute issues. Miscellaneous: No acute issues. Prophylaxis: Heparin, ppi Diet: Tube feeds Critical care time spent: 45 minutes Quality Stroke Does the patient have a stroke diagnosis?: No VTE Prior VTE?: No VTE Risk Level:: Medical - moderate - high VTE Device Contraindication: Treatment Not Indicated VTE Drug Contraindication: N/A - Med Ordered
[2021-04-13 11:39] LABS: Glucose, Whole Blood 117 mg/dL (60-115)
[2021-04-13] MEDS: dexmedeTOMIDidine HCL/NS 400 MCG/100 ML INFUS..BTL 14.28 MCG IVCONT (13:11)
[2021-04-13] MEDS: Furosemide 40 MG/4 ML VIAL IVPUSH (14:12)
[2021-04-13] MEDS: Insulin Lispro 100 UNIT/ML 3 ML VIAL SUBCUT (17:47)
[2021-04-13] MEDS: dexmedeTOMIDidine HCL/NS 400 MCG/100 ML INFUS..BTL IVCONT (17:56)
[2021-04-13 18:01] LABS: Glucose, Whole Blood 155 mg/dL (60-115)
[2021-04-13] MEDS: fentaNYL citrate/NS 1,000 MCG/100 ML PLAST..BAG 10 MCG IVCONT (20:07)
[2021-04-13 23:41] LABS: Glucose, Whole Blood 131 mg/dL (60-115)
[2021-04-14] VITALS (39 sets, daily range): BP systolic 80–148; BP diastolic 44–84; PULSE 75–103; RESP 17–28; TEMP 31.8–37.9; O2SAT 94–99; BMI 36.5
[2021-04-14] MEDS: dexmedeTOMIDidine HCL/NS 400 MCG/100 ML INFUS..BTL 23.8 MCG IVCONT ×5 (02:15→18:20)
[2021-04-14 05:37] LABS: VBG Base Excess -6.1 mmol/L; VBG HCO3 17 mmol/L (22-26); VBG pCO2 28 mmHg; VBG pH 7.39 (7.32-7.43); VBG pO2 47 mmHg
[2021-04-14 05:38] LABS: Venous Blood Gas Refer to POC result
[2021-04-14 05:43] LABS: Glucose, Whole Blood 118 mg/dL (60-115)
[2021-04-14] MEDS: fentaNYL citrate/NS 1,000 MCG/100 ML PLAST..BAG 10 MCG IVCONT ×2 (05:43→16:18)
[2021-04-14 05:52] LABS: Hematocrit 25.8 % (37.0-47.0); Hemoglobin 8.1 g/dl (12.0-16.0); Mean Corpuscular HGB Conc 31.4 g/dl (31.0-35.0); Mean Corpuscular Volume 89.3 fL (80.0-98.0); Mean Platelet Volume 9.6 fL (9.4-12.3); NRBC Pct Auto 0.3 /100WBC (0.0-0.2); Platelet Count 427 X10*3/uL (160-400); Red Blood Count 2.89 X10*6/uL (4.20-5.50); White Blood Count 6.7 X10*3/uL (4.8-10.8)
[2021-04-14 06:12] LABS: Alanine Aminotransferase 17 U/L (0-31); Albumin Level 3.4 g/dL (3.5-5.0); Alkaline Phosphatase 81 U/L (39-117); Anion Gap 18 (12-20); Aspartate Amino Transferase 15 U/L (5-31); Bilirubin Total 0.5 mg/dL (0.0-1.0); Blood Urea Nitrogen 43 mg/dL (9-16); Calcium 8.9 mg/dL (8.4-10.2); Carbon Dioxide 16 mmol/L (22-29); Chloride 107 mmol/L (96-108); Creatinine Clr Calc Pharmacy 17.9; Estimated Glomerular Filt Rate 12; Glucose Random 130 mg/dL (60-115); Magnesium 1.9 mg/dL (1.6-2.6); Phosphorus 3.8 mg/dL (2.7-4.5); Potassium 5.1 mmol/L (3.3-5.1); Sodium 136 mmol/L (135-145); Total Protein 5.4 g/dL (6.5-8.0)
[2021-04-14 06:14] LABS: Atypical Lymph Absolute Manual 0.2 x10*3/uL; Atypical Lymphs Percent Manual 3 % (0-6); Band Neutrophils Percent 8 % (3-5); Eosinophils Absolute Manual 0.3 X10*3/uL (0.0-0.4); Eosinophils Percent Manual 4 % (0-4); Lymphocytes Absolute Manual 0.9 X10*3/uL (1.2-4.9); Lymphocytes Percent Manual 13 % (20-40); Metamyelocytes Absolute 0.5 X10*3/uL; Metamyelocytes Percent 7 %; Monocytes Absolute Manual 0.7 X10*3/uL (0.1-1.2); Monocytes Percent Manual 10 % (2-11); Myelocytes Absolute 0.1 X10*/uL; Myelocytes Percent 1 %; Neutrophils Absolute Manual 4.2 X10*3/uL (2.0-8.3); Neutrophils Percent Manual 54 % (45-73)
[2021-04-14 06:15] LABS: Hypochromasia 1+ (5-14) /OIF; Platelet Estimate SLIGHTLY INCREASED (NORMAL); Platelet Morphology Comment NORMAL; Polychromasia 1+ (0-2) /OIF; RBC Morphology NOTED
[2021-04-14] MEDS: Metoprolol Tartrate 25 MG TABLET PO ×2 (08:33→20:56)
[2021-04-14] MEDS: Chlorhexidine Gluc Oral Rinse 15 ML MOUTHWASH BUCCAL ×3 (08:33→20:55)
[2021-04-14] MEDS: Famotidine/PF 20 MG/2 ML VIAL IVPUSH (08:33)
--- NOTE | 2021-04-14 10:54 | MHC.CLN ---
F/U PT IS S/P TRACH/PEG PT WITH INCREASED NUTRITION RISK R/T PRESSURE INJURIES PT RECEIVING PROMOTE AT MAX GOAL RATE 60ML/HR WITH 120ML FWF Q 6HRS PROVIDES 1440KCALS (21KCALS/KG BASED ON CMW), 90G PROTEIN (1.3G/KG), 1688CC TOTAL FREE WATER FROM FORMULA AND FLUSHES (25ML/KG) PT RECEIVING HD; MONITOR RENAL INDICES CLOSELY WITH INCREASE IN PO PROTEIN MONITOR TOLERANCE, RESIDUALS AND LYTES
[2021-04-14 12:19] LABS: Glucose, Whole Blood 147 mg/dL (60-115)
[2021-04-14] MEDS: Heparin Sodium,Porcine 5,000 UNIT/ML VIAL 5000 UNIT SUBCUT (12:35)
--- NOTE | 2021-04-14 14:22 | MHC.CM.PN ---
Pt had peg/trach placement on 04/11 and will need a tunneled HD line for LT use. Call placed to Janett at [facility]: facility has concerns that pt may need permanent HD and not be able to wean off vent support. This places barriers on pt's ability to transition from [facility] to a lower level of care. aware and states pt is COVID huma gallardo in addition to her poor lung fx r/t cancer and CKD stage 4 prior to admission. [facility] requesting trach mask trials - MD aware of request - CM to follow.
--- NOTE | 2021-04-14 14:41 | MHC.CM.PN ---
Female 60 DX Covid 19 She was trached and pegged 04/11/21 @ ICU rounds today, stated goal is tunneled cath placement for HD. Updated clinical info has been sent to [facility]. The question of trach maturation and acceptance to [facility] was asked this am via [employer]. The Liason requested a phone call to discuss the case. The return call was made, a VM was left. T/w left contact info for return call.
[2021-04-14 17:57] LABS: Glucose, Whole Blood 106 mg/dL (60-115)
--- NOTE | 2021-04-14 18:46 | PM.PNNEP ---
Subjective Subjective Date of Service: 04/14/21 Interval history: ISeen and examined.[place] HD 3x/wk--HD today Physical Exam Vital Signs: Vital Signs: Last Vital Signs Temp 98.6 F 04/14/21 12:00 Pulse 101 H 04/14/21 18:00 Resp 27 H 04/14/21 18:00 BP 140/48 H 04/14/21 18:00 Pulse Ox 99 04/14/21 18:00 BMI result Body Mass Index 36.5 Const: Other: Awake Reintubated 04/09/21 Now on Trach Lungs with Rhonchi Hrt : No gallop or rub Abd Obese Soft NS no asterexis General: comfortable, no acute distress and ill appearing HENMT: Head: Yes normocephalic and Yes atraumatic Neck: Neck: Yes supple Resp: Auscultation: diminished lung sounds Cardio: Rate: regular rate and tachycardic Heart sounds: S1 normal heart sound present and S2 normal heart sound present GI: Palpation (GI): Soft to palpation and no guarding Neuro: Other: Sedated Extrem: General: Yes pedal edema Objective Data Labs CBC & Chem 7: 04/14/21 05:28 04/14/21 05:28 Labs: Laboratory Results - last 24 hr 04/13/21 04/14/21 04/14/21 23:38 05:28 05:28 WBC 6.7 RBC 2.89 L Hgb 8.1 L Hct 25.8 L MCV 89.3 MCH 28.0 MCHC 31.4 RDW 17.0 H Plt Count 427 H MPV 9.6 Immature Gran % (Auto) Cancelled Neut % (Auto) Cancelled Lymph % (Auto) Cancelled [place] % (Auto) Cancelled Eos % (Auto) Cancelled Baso % (Auto) Cancelled Lymph # (Auto) Cancelled [place] # (Auto) Cancelled Eos # (Auto) Cancelled Baso # (Auto) Cancelled Abs Immat Gran (auto) Cancelled Absolute Neuts (auto) Cancelled Absolute Nucleated RBC 0.020 H Nucleated RBC % (auto) 0.3 H Neutrophils % (Manual) 54 Band Neutrophils % 8 H Lymphocytes % (Manual) 13 L Atypical Lymphs % (Man) 3 Monocytes % (Manual) 10 Eosinophils % (Manual) 4 Metamyelocytes % 7 Myelocytes % 1 Abs Neuts (Manual) 4.2 Lymphocytes # (Manual) 0.9 L Atyp Lymphs # (Manual) 0.2 Monocytes # (Manual) 0.7 Eosinophils # (Manual) 0.3 Metamyelocytes # 0.5 Myelocytes # 0.1 Platelet Estimate SLIGHTLY INCREASED Plt Morphology Comment NORMAL RBC Morphology NOTED Polychromasia 1+ (0-2) Hypochromasia 1+ (5-14) VBG pH VBG pCO2 VBG pO2 VBG HCO3 VBG O2 Saturation VBG Base Excess Sodium 136 Potassium 5.1 D Chloride 107 Carbon Dioxide 16 L Anion Gap 18 BUN 43 H Creatinine 3.86 H Estim Creat Clear Calc 17.9 Estimated GFR 12 POC Glucose 131 H Random Glucose 130 H Calcium 8.9 Phosphorus 3.8 Magnesium 1.9 Total Bilirubin 0.5 AST 15 ALT 17 Alkaline Phosphatase 81 Total Protein 5.4 L Albumin 3.4 L 04/14/21 04/14/21 04/14/21 05:30 05:37 12:13 WBC RBC Hgb Hct MCV MCH MCHC RDW Plt Count MPV Immature Gran % (Auto) Neut % (Auto) Lymph % (Auto) [place] % (Auto) Eos % (Auto) Baso % (Auto) Lymph # (Auto) [place] # (Auto) Eos # (Auto) Baso # (Auto) Abs Immat Gran (auto) Absolute Neuts (auto) Absolute Nucleated RBC Nucleated RBC % (auto) Neutrophils % (Manual) Band Neutrophils % Lymphocytes % (Manual) Atypical Lymphs % (Man) Monocytes % (Manual) Eosinophils % (Manual) Metamyelocytes % Myelocytes % Abs Neuts (Manual) Lymphocytes # (Manual) Atyp Lymphs # (Manual) Monocytes # (Manual) Eosinophils # (Manual) Metamyelocytes # Myelocytes # Platelet Estimate Plt Morphology Comment RBC Morphology Polychromasia Hypochromasia VBG pH 7.39 VBG pCO2 28 VBG pO2 47 VBG HCO3 17 L VBG O2 Saturation 77.0 VBG Base Excess -6.1 Sodium Potassium Chloride Carbon Dioxide Anion Gap BUN Creatinine Estim Creat Clear Calc Estimated GFR POC Glucose 118 H 147 H Random Glucose Calcium Phosphorus Magnesium Total Bilirubin AST ALT Alkaline Phosphatase Total Protein Albumin 04/14/21 17:50 WBC RBC Hgb Hct MCV MCH MCHC RDW Plt Count MPV Immature Gran % (Auto) Neut % (Auto) Lymph % (Auto) [place] % (Auto) Eos % (Auto) Baso % (Auto) Lymph # (Auto) [place] # (Auto) Eos # (Auto) Baso # (Auto) Abs Immat Gran (auto) Absolute Neuts (auto) Absolute Nucleated RBC Nucleated RBC % (auto) Neutrophils % (Manual) Band Neutrophils % Lymphocytes % (Manual) Atypical Lymphs % (Man) Monocytes % (Manual) Eosinophils % (Manual) Metamyelocytes % Myelocytes % Abs Neuts (Manual) Lymphocytes # (Manual) Atyp Lymphs # (Manual) Monocytes # (Manual) Eosinophils # (Manual) Metamyelocytes # Myelocytes # Platelet Estimate Plt Morphology Comment RBC Morphology Polychromasia Hypochromasia VBG pH VBG pCO2 VBG pO2 VBG HCO3 VBG O2 Saturation VBG Base Excess Sodium Potassium Chloride Carbon Dioxide Anion Gap BUN Creatinine Estim Creat Clear Calc Estimated GFR POC Glucose 106 Random Glucose Calcium Phosphorus Magnesium Total Bilirubin AST ALT Alkaline Phosphatase Total Protein Albumin Microbiology Microbiology Results: Microbiology 04/02/21 13:20 Sputum - Suctioned Gram Stain - Final 04/02/21 13:20 Sputum - Suctioned Sputum Culture - Final Methicillin Res Staph Aureus 03/24/21 16:49 Blood - Central Line Blood Culture - Final No growth after 5 days. 03/24/21 16:49 Blood - Central Line Blood Culture - Final No growth after 5 days. 03/24/21 16:50 Urine Catheterized - Witt Catheter Urine Culture - Final No growth. 03/18/21 19:37 Blood - Venous Blood Culture - Final No growth after 5 days. 03/18/21 19:37 Blood - Venous Blood Culture - Final Procedures Date of Service Date of Service: 04/14/21 Assessment & Plan Assessment and plan (1) JOAN (acute kidney injury): Status: Acute Plan JOAN superimposed on CKD /Uremia No obstruction by sonogram No proteinuria/Hematuria- AGN/AIN seem unlikely Probably has ATN- multifatorail s/p Shock COVID -19 Resp failure = s/p Trach Plan Cont HD 3 x week permcath later this week procrit solitario arm for future AVF Time Spent With Patient Time: Total time spent is greater than 50% in coordination of care (as documented) at patient's floor/unit and/or counseling patient: Progress Note: Quality Stroke Does the patient have a stroke diagnosis?: No
[2021-04-14] MEDS: propofoL 1,000 MG/100 ML VIAL 11.58 MG IVCONT (19:02)
[2021-04-14] MEDS: fentaNYL citrate/PF 100 MCG/2 ML VIAL 200 MCG IVPUSH (19:20)
[2021-04-14 19:28] LABS: VBG Base Excess -5.6 mmol/L; VBG HCO3 18 mmol/L (22-26); VBG pCO2 32 mmHg; VBG pH 7.36 (7.32-7.43); VBG pO2 36 mmHg
[2021-04-14 19:44] LABS: Venous Blood Gas Refer to POC result
[2021-04-14 19:44] LABS: VBG Base Excess -4.5 mmol/L; VBG HCO3 19 mmol/L (22-26); VBG pCO2 32 mmHg; VBG pH 7.38 (7.32-7.43); VBG pO2 48 mmHg
--- NOTE | 2021-04-14 20:06 | W.PM.CCHP ---
Procedures Date of Service Date of Service: 04/14/21 Arterial Line Complications: none Bronchoscopy Bronchoscopy Comments: PROCEDURE NOTE:? Fiberoptic bronchoscopy INDICATIONS:? Rule out tracheostomy tube malposition. Mrs. Galeas underwent PDT on April 11 without complications. This evening, during HD, she became agitated for some reason, her BP went up to 240s, pink froth issued from her trach tube, and her neck swelled up. She maitained her Sat of 98% on 24% FiO2. Her ETCO2 was 22 with a RR of 30s. There was no crepitus or evidence of SQ emphysema. I undertook bronchoscopy to make sure that the trach tube was not malpositioned. ANESTHESIA: Propofol and fentanyl gtt, plus fentanyl 200ug bolus. Procedure: The patient was preoxygenated with 90% FiO2. The circuit was disconnected from the tracheostomy tube, and the 5.0 disposable bronchoscope was introduced into the tracheostomy tube and from there into the trachea and advanced down to the cariina without incident. In two passes of the scope, the upper trachea from the distal tip of the trach tube down to the cariina looked entirely normal, and measured about 5cm. The procedure was terminated without incident. The patient tolerated the procedure well without complications. Discussed in mult telephone convers with Dr. Mukherjee. Consent for Procedure: Emergent-no informed consent obtained
--- NOTE | 2021-04-14 20:08 | PM.CCPN ---
Subjective Subjective Date of Service: 04/14/21 Interval History: Ms. Galeas was admitted to the ICU on Mar 18 with acute respiratory failure. The patient is a 60 yo F with PMHx of COPD on 2 L of supplemental oxygen; lung cancer s/p ?palliative? 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 She?s had COVID vaccine shots x3. The patient lives with her boyfriend (Kodi Mahmood, one of her HCPs, cell [phone]) and her son.? She walks with a cane.? She needs help with dressing and bathing.? Her daughter Anabel, who is the other HCP (cell:? [phone]), tells me that her grandmother (ie Anabel?s grandmother), who?s 80 years old, is in better health than her mother (the patient). The patient was seen in the ED here on Mar 12 c/o SOB.? Dx?d with a COPD exacc.? (No CXR or COVID test done.)? Discharged with a Prednisone script. HISTORY OF PRESENT ILLNESS: The patient was BIBA on 03/18/2021 with SOB and confusion.? ABG showed 7.45/37/124/+2.? CXR showed increased interstitial prominence bilaterally, and a new more focal hazy opacity in the left lower lobe.? COVID-19 test was positive.? BUN/creat 131/2.5 (baseline about 90/3.2).? D-dimer was 2300.? She developed hypoxia refractory to NIV, and required intubation and ventilatory support.? She was admitted to ICU, and treated for COVID.? Noncontrast chest CT showed empysema; small areas of dense opacification in the posterior lower lobes with scattered small areas of groundglass attenuation in the upper lobes; suggestive of multifocal pneumonia and/or sequelae of aspiration.? Venous Duplex scan was negative Peak trop was 2800.? EKG showed no ischemic changes.? Echocardiogram on Mar 19 showed LVEF 30% with marked RWMAs.? The RV size was mod increased, with decreased fxn.? IVC was dilated w no insp collapse.? RVSP estimate 41mm. ?Last echo 2018 showed normal LV fxn, mild LVH, normal right heart, no valvular pathology.? Thought to have NSTEMI vs demand ischemia. The patient?s FiO2 came down rapidly, and bec of that, COVID pneumonia was felt unlikely and COVID treatment was stopped.? The patient was extubated on 03/21/2021. ?She was sat?ing up to 98% on 2L NC.? The patient?s renal indices cally progressively.? The patient remained significantly encephalopathic, thought likely secondary to uremia.? On Mar 23 she developed respiratory distress and hypoxemia thought secondary to aspiration and/or inability to protect the airway.? The patient was reintubated.? Head CT showed no acute structural lesions to account for her encephalopathy. A temporary dialysis catheter was placed on Mar 24 and she was started on dialysis on March 25.? Repeat echo that day showed near normal LV function, and normal RV size and function.? The IVC was normal sized with near full inspiratory collapse, suggesting that she might be hypovolemic.? Volume resuscitation improved her BP.? New onset atrial flutter was converted to SR with diltiazem.? WBC cally to 48.? All cultures negative, CDiff negative. Mar 26 she was putting out black stool, hemoccult positive.? Hb was down 3grams.? She underwent EGD by Dr. Queen.? Found gastritis with erosions that were likely the site of bleeding.? She was tx w bid PPI plus Carafate.? A lung perfusion study showed very low prob of PE. The patient had delayed awakening with sedation holidays.? Finally extubated uneventfully on April 08.? Developed pulmon edema, managed with BiPAP and hemodialysis, but nevertheless, required re-intubation on April 09.? She then underwent tracheostomy and PEG on April 11. Most of the day today she was sedated on medium dose Precedex, and was clearly interactive, even smiling at me.? But she has a severe ICU myopathy, is unable to lift her extremities off the bed.? See VS below.? Sat?ing up to 98% on 24% FiO2.? Been mostly afebrile.? No JVD at 20?.? Chest CTA with normal exp phase.? Regular rate and rhythm, with normal-sounding S1 and S2, with no murmur or gallops.? Abdomen is benign.? Trivial if any edema.? She?s significantly wrinkled. LABORATORY DATA:? Below.? Was COVID negative on Apr 02. MICROBIOLOGY:? No recent cultures. IMPRESSION: 1. Underlying emphysematous lung disease. 2. Chronic hypoxemic and hypercapnic lung disease.? Blood gasses show signif hypercarbia dating back at least two years. 3. Underlying CKD 4-5. 4. Significant baseline disability 5. Acute respiratory failure on admission, the etiology of which is not clear.? Her admitting CXR was c/w almost anything.? Although her chest CT was not inconsistent with mild COVID pneumonia, the fact that she went from 100% FiO2 to 2L NC (which is her baseline) in a few days is thoroughly inconsistent with severe COVID pneumonia.? PE was eventually ruled out by perfusion scan.? And her hypoxemia was not likely aspiration or bacterial or viral pneumonia, given the relatively clear CXR.? Whatever the cause, three days of Solu-Medrol significantly improved her hypoxemia. 6. COVID positive on admission, but she didn?t have COVID pneumonia. 7. Biventricular heart failure on echo of Mar 19.? Likely NSTEMI vs demand ischemia.? Her echo pretty much normalized by Mar 25. 8. ?ACS.? Initial troponins had no accompanying EKG changes, but the trop bump on 03/26 had new T wave inversions.? So we added statin and metoprolol. 9. Acute on chronic renal failure.? Undoubtedly 2? ATN.? Given her underlying stage 4-5 CKD, the likelihood is that she?s on HD for good. 10. Encephalopathy.? Likely metabolic -- uremia.? Slowly resolved after many HD sessions. 11. UGI bleed.? 2? stress gastritis.? Now on just Pepcid. ADDENDUM:? About 45 min into dialysis this evening, she developed severe HTN and resp distress, with pink froth issuing from her trach tube.? Her anterior neck also seemed to get larger.? But there was no crepitus, no sign of SQ air.? We got her calmed down with propofol and then fentanyl, after which I bronched her thru the tracheostomy.? The upper trachea from the distal tip of the trach tube to the cariina alooked entirely normal, and measured about 5cm.? Discussed in mult telephone convers with Dr. Mukherjee.? I?m not sure what exactly precipitated the episode of resp distress and severe HTN, but she likely developed pulmon edema from hypertensive crisis. Critical care time (including extended chart rev and hosp course summary; excluding procedures): ?2+ hrs. Critical Care Time (minutes): 120 Physical Exam Vital Signs: Vital Signs: Last Vital Signs Temp 98.1 F 04/14/21 19:00 Pulse 103 H 04/14/21 19:00 Resp 23 H 04/14/21 19:00 BP 129/77 04/14/21 19:51 Pulse Ox 94 04/14/21 19:00 BMI result Body Mass Index 36.5 Objective Data Labs CBC & Chem 7: 04/14/21 05:28 04/14/21 05:28 Labs: Laboratory Results - last 24 hr 04/13/21 04/14/21 04/14/21 23:38 05:28 05:28 WBC 6.7 RBC 2.89 L Hgb 8.1 L Hct 25.8 L MCV 89.3 MCH 28.0 MCHC 31.4 RDW 17.0 H Plt Count 427 H MPV 9.6 Immature Gran % (Auto) Cancelled Neut % (Auto) Cancelled Lymph % (Auto) Cancelled [place] % (Auto) Cancelled Eos % (Auto) Cancelled Baso % (Auto) Cancelled Lymph # (Auto) Cancelled [place] # (Auto) Cancelled Eos # (Auto) Cancelled Baso # (Auto) Cancelled Abs Immat Gran (auto) Cancelled Absolute Neuts (auto) Cancelled Absolute Nucleated RBC 0.020 H Nucleated RBC % (auto) 0.3 H Neutrophils % (Manual) 54 Band Neutrophils % 8 H Lymphocytes % (Manual) 13 L Atypical Lymphs % (Man) 3 Monocytes % (Manual) 10 Eosinophils % (Manual) 4 Metamyelocytes % 7 Myelocytes % 1 Abs Neuts (Manual) 4.2 Lymphocytes # (Manual) 0.9 L Atyp Lymphs # (Manual) 0.2 Monocytes # (Manual) 0.7 Eosinophils # (Manual) 0.3 Metamyelocytes # 0.5 Myelocytes # 0.1 Platelet Estimate SLIGHTLY INCREASED Plt Morphology Comment NORMAL RBC Morphology NOTED Polychromasia 1+ (0-2) Hypochromasia 1+ (5-14) VBG pH VBG pCO2 VBG pO2 VBG HCO3 VBG O2 Saturation VBG Base Excess Sodium 136 Potassium 5.1 D Chloride 107 Carbon Dioxide 16 L Anion Gap 18 BUN 43 H Creatinine 3.86 H Estim Creat Clear Calc 17.9 Estimated GFR 12 POC Glucose 131 H Random Glucose 130 H Calcium 8.9 Phosphorus 3.8 Magnesium 1.9 Total Bilirubin 0.5 AST 15 ALT 17 Alkaline Phosphatase 81 Total Protein 5.4 L Albumin 3.4 L 04/14/21 04/14/21 04/14/21 05:30 05:37 12:13 WBC RBC Hgb Hct MCV MCH MCHC RDW Plt Count MPV Immature Gran % (Auto) Neut % (Auto) Lymph % (Auto) [place] % (Auto) Eos % (Auto) Baso % (Auto) Lymph # (Auto) [place] # (Auto) Eos # (Auto) Baso # (Auto) Abs Immat Gran (auto) Absolute Neuts (auto) Absolute Nucleated RBC Nucleated RBC % (auto) Neutrophils % (Manual) Band Neutrophils % Lymphocytes % (Manual) Atypical Lymphs % (Man) Monocytes % (Manual) Eosinophils % (Manual) Metamyelocytes % Myelocytes % Abs Neuts (Manual) Lymphocytes # (Manual) Atyp Lymphs # (Manual) Monocytes # (Manual) Eosinophils # (Manual) Metamyelocytes # Myelocytes # Platelet Estimate Plt Morphology Comment RBC Morphology Polychromasia Hypochromasia VBG pH 7.39 VBG pCO2 28 VBG pO2 47 VBG HCO3 17 L VBG O2 Saturation 77.0 VBG Base Excess -6.1 Sodium Potassium Chloride Carbon Dioxide Anion Gap BUN Creatinine Estim Creat Clear Calc Estimated GFR POC Glucose 118 H 147 H Random Glucose Calcium Phosphorus Magnesium Total Bilirubin AST ALT Alkaline Phosphatase Total Protein Albumin 04/14/21 04/14/21 04/14/21 17:50 19:20 19:39 WBC RBC Hgb Hct MCV MCH MCHC RDW Plt Count MPV Immature Gran % (Auto) Neut % (Auto) Lymph % (Auto) [place] % (Auto) Eos % (Auto) Baso % (Auto) Lymph # (Auto) [place] # (Auto) Eos # (Auto) Baso # (Auto) Abs Immat Gran (auto) Absolute Neuts (auto) Absolute Nucleated RBC Nucleated RBC % (auto) Neutrophils % (Manual) Band Neutrophils % Lymphocytes % (Manual) Atypical Lymphs % (Man) Monocytes % (Manual) Eosinophils % (Manual) Metamyelocytes % Myelocytes % Abs Neuts (Manual) Lymphocytes # (Manual) Atyp Lymphs # (Manual) Monocytes # (Manual) Eosinophils # (Manual) Metamyelocytes # Myelocytes # Platelet Estimate Plt Morphology Comment RBC Morphology Polychromasia Hypochromasia VBG pH 7.36 7.38 VBG pCO2 32 32 VBG pO2 36 48 VBG HCO3 18 L 19 L VBG O2 Saturation 56.0 76.0 VBG Base Excess -5.6 -4.5 Sodium Potassium Chloride Carbon Dioxide Anion Gap BUN Creatinine Estim Creat Clear Calc Estimated GFR POC Glucose 106 Random Glucose Calcium Phosphorus Magnesium Total Bilirubin AST ALT Alkaline Phosphatase Total Protein Albumin Microbiology Microbiology Results: Microbiology 04/02/21 13:20 Sputum - Suctioned Gram Stain - Final 04/02/21 13:20 Sputum - Suctioned Sputum Culture - Final Methicillin Res Staph Aureus 03/24/21 16:49 Blood - Central Line Blood Culture - Final No growth after 5 days. 03/24/21 16:49 Blood - Central Line Blood Culture - Final No growth after 5 days. 03/24/21 16:50 Urine Catheterized - Witt Catheter Urine Culture - Final No growth. 03/18/21 19:37 Blood - Venous Blood Culture - Final No growth after 5 days. 03/18/21 19:37 Blood - Venous Blood Culture - Final Quality Stroke Does the patient have a stroke diagnosis?: No VTE Prior VTE?: No VTE Risk Level:: Medical - moderate - high VTE Device Contraindication: Treatment Not Indicated VTE Drug Contraindication: N/A - Med Ordered Critical Care Time Critical Care Time (minutes): 120
[2021-04-14] MEDS: dexmedeTOMIDidine HCL/NS 400 MCG/100 ML INFUS..BTL 28.56 MCG IVCONT (20:54)
[2021-04-14 23:39] LABS: Glucose, Whole Blood 142 mg/dL (60-115)
[2021-04-15] VITALS (33 sets, daily range): BP systolic 97–145; BP diastolic 53–94; PULSE 77–114; RESP 11–35; TEMP 33.8–37.8; O2SAT 95–100; BMI 35.4
[2021-04-15] MEDS: dexmedeTOMIDidine HCL/NS 400 MCG/100 ML INFUS..BTL 28.56 MCG IVCONT ×3 (00:19→06:22)
[2021-04-15] MEDS: Heparin Sodium,Porcine 5,000 UNIT/ML VIAL 5000 UNIT SUBCUT ×3 (03:41→18:17)
[2021-04-15 05:40] LABS: Hematocrit 26.3 % (37.0-47.0); Hemoglobin 8.4 g/dl (12.0-16.0); Mean Corpuscular HGB Conc 31.9 g/dl (31.0-35.0); Mean Corpuscular Volume 87.7 fL (80.0-98.0); Mean Platelet Volume 8.9 fL (9.4-12.3); Platelet Count 335 X10*3/uL (160-400); White Blood Count 9.8 X10*3/uL (4.8-10.8)
[2021-04-15 05:43] LABS: VBG Base Excess -3.4 mmol/L; VBG HCO3 19 mmol/L (22-26); VBG pCO2 27 mmHg; VBG pH 7.45 (7.32-7.43); VBG pO2 38 mmHg
[2021-04-15 05:45] LABS: Venous Blood Gas Refer to POC result
[2021-04-15 05:55] LABS: Alanine Aminotransferase 18 U/L (0-31); Albumin Level 3.5 g/dL (3.5-5.0); Alkaline Phosphatase 85 U/L (39-117); Anion Gap 15 (12-20); Aspartate Amino Transferase 20 U/L (5-31); Bilirubin Total 0.6 mg/dL (0.0-1.0); Blood Urea Nitrogen 26 mg/dL (9-16); Calcium 8.8 mg/dL (8.4-10.2); Carbon Dioxide 19 mmol/L (22-29); Chloride 104 mmol/L (96-108); Creatinine Clr Calc Pharmacy 26.4; Estimated Glomerular Filt Rate 19; Glucose Random 99 mg/dL (60-115); Phosphorus 2.4 mg/dL (2.7-4.5); Potassium 4.4 mmol/L (3.3-5.1); Sodium 134 mmol/L (135-145); Total Protein 5.8 g/dL (6.5-8.0)
[2021-04-15 06:18] LABS: Glucose, Whole Blood 97 mg/dL (60-115)
[2021-04-15 06:43] LABS: Band Neutrophils Percent 9 % (3-5); Lymphocytes Absolute Manual 2.3 X10*3/uL (1.2-4.9); Lymphocytes Percent Manual 23 % (20-40); Metamyelocytes Absolute 0.6 X10*3/uL; Metamyelocytes Percent 6 %; Monocytes Absolute Manual 1.7 X10*3/uL (0.1-1.2); Monocytes Percent Manual 17 % (2-11); Myelocytes Absolute 0.2 X10*/uL; Myelocytes Percent 2 %; Neutrophils Percent Manual 42 % (45-73); Promyelocytes Absolute 0.1 X10*3/uL; Promyelocytes Percent 1 %
[2021-04-15 06:46] LABS: Hypochromasia 1+ (5-14) /OIF; Platelet Estimate NORMAL (NORMAL); Platelet Morphology Comment NORMAL; Polychromasia 1+ (0-2) /OIF; RBC Morphology NOTED
[2021-04-15] MEDS: Chlorhexidine Gluc Oral Rinse 15 ML MOUTHWASH BUCCAL ×3 (08:17→20:30)
--- NOTE | 2021-04-15 09:27 | ECG_ITS ---
Test Reason : r/o nstemi Blood Pressure : / mmHG Vent. Rate : 091 BPM Atrial Rate : 091 BPM P-R Int : 158 ms QRS Dur : 078 ms QT Int : 386 ms P-R-T Axes : 078 050 130 degrees QTc Int : 474 ms Normal sinus rhythm T wave abnormality, consider anterolateral ischemia Prolonged QT Abnormal ECG When compared with ECG of 27-MAR-2021 14:50, Previous ECG has undetermined rhythm, needs review T wave inversion no longer evident in Inferior leads Referred By: Deacon Han Electronically Signed By:THERESA BRENNAN MD
[2021-04-15] MEDS: Famotidine 20 MG TABLET PO (10:05)
[2021-04-15] MEDS: dexmedeTOMIDidine HCL/NS 400 MCG/100 ML INFUS..BTL 23.8 MCG IVCONT ×2 (10:05→20:30)
[2021-04-15] MEDS: Metoprolol Tartrate 25 MG TABLET PO ×2 (10:05→20:30)
[2021-04-15 10:11] LABS: Troponin-I High Sensitivity 70.8 ng/L (<3.5-17.0)
--- NOTE | 2021-04-15 10:46 | P.PNNP_ITS ---
Subjective Subjective Date of Service: 04/15/21 Interval history: Seen and examined, events noted UOP incr --approx 1 liter past 24 hrs Last HD 04/14 (HD started 03/25) Physical Exam Vital Signs: Vital Signs: Last Vital Signs Temp 99.1 F 04/15/21 10:00 Pulse 83 04/15/21 10:00 Resp 20 04/15/21 10:00 BP 99/60 04/15/21 10:00 Pulse Ox 95 04/15/21 10:00 BMI result Body Mass Index 35.4 Const: Other: Awake Reintubated 04/09/21 Now on Trach Lungs with Rhonchi Hrt : No gallop or rub Abd Obese Soft NS no asterexis General: comfortable, no acute distress and ill appearing HENMT: Head: Yes normocephalic and Yes atraumatic Neck: Neck: Yes supple Resp: Auscultation: diminished lung sounds Cardio: Rate: regular rate and tachycardic Heart sounds: S1 normal heart sound present and S2 normal heart sound present GI: Palpation (GI): Soft to palpation and no guarding Neuro: Other: Sedated Extrem: General: Yes pedal edema Objective Data Labs CBC & Chem 7: 04/15/21 05:32 04/15/21 05:32 Labs: Laboratory Results - last 24 hr 04/14/21 04/14/21 04/14/21 12:13 17:50 19:20 WBC RBC Hgb Hct MCV MCH MCHC RDW Plt Count MPV Immature Gran % (Auto) Neut % (Auto) Lymph % (Auto) [place] % (Auto) Eos % (Auto) Baso % (Auto) Lymph # (Auto) [place] # (Auto) Eos # (Auto) Baso # (Auto) Abs Immat Gran (auto) Absolute Neuts (auto) Absolute Nucleated RBC Nucleated RBC % (auto) Neutrophils % (Manual) Band Neutrophils % Lymphocytes % (Manual) Monocytes % (Manual) Metamyelocytes % Myelocytes % Promyelocytes % Abs Neuts (Manual) Lymphocytes # (Manual) Monocytes # (Manual) Metamyelocytes # Myelocytes # Promyelocytes # Platelet Estimate Plt Morphology Comment RBC Morphology Polychromasia Hypochromasia VBG pH 7.36 VBG pCO2 32 VBG pO2 36 VBG HCO3 18 L VBG O2 Saturation 56.0 VBG Base Excess -5.6 Sodium Potassium Chloride Carbon Dioxide Anion Gap BUN Creatinine Estim Creat Clear Calc Estimated GFR POC Glucose 147 H 106 Random Glucose Calcium Phosphorus Total Bilirubin AST ALT Alkaline Phosphatase Troponin I High Sens Total Protein Albumin 04/14/21 04/14/21 04/15/21 19:39 23:31 05:32 WBC RBC Hgb Hct MCV MCH MCHC RDW Plt Count MPV Immature Gran % (Auto) Neut % (Auto) Lymph % (Auto) [place] % (Auto) Eos % (Auto) Baso % (Auto) Lymph # (Auto) [place] # (Auto) Eos # (Auto) Baso # (Auto) Abs Immat Gran (auto) Absolute Neuts (auto) Absolute Nucleated RBC Nucleated RBC % (auto) Neutrophils % (Manual) Band Neutrophils % Lymphocytes % (Manual) Monocytes % (Manual) Metamyelocytes % Myelocytes % Promyelocytes % Abs Neuts (Manual) Lymphocytes # (Manual) Monocytes # (Manual) Metamyelocytes # Myelocytes # Promyelocytes # Platelet Estimate Plt Morphology Comment RBC Morphology Polychromasia Hypochromasia VBG pH 7.38 VBG pCO2 32 VBG pO2 48 VBG HCO3 19 L VBG O2 Saturation 76.0 VBG Base Excess -4.5 Sodium Potassium Chloride Carbon Dioxide Anion Gap BUN Creatinine Estim Creat Clear Calc Estimated GFR POC Glucose 142 H Random Glucose Calcium Phosphorus Cancelled Total Bilirubin AST ALT Alkaline Phosphatase Troponin I High Sens Total Protein Albumin 04/15/21 04/15/21 04/15/21 05:32 05:32 05:34 WBC 9.8 RBC 3.00 L Hgb 8.4 L Hct 26.3 L MCV 87.7 MCH 28.0 MCHC 31.9 RDW 17.0 H Plt Count 335 MPV 8.9 L Immature Gran % (Auto) Cancelled Neut % (Auto) Cancelled Lymph % (Auto) Cancelled [place] % (Auto) Cancelled Eos % (Auto) Cancelled Baso % (Auto) Cancelled Lymph # (Auto) Cancelled [place] # (Auto) Cancelled Eos # (Auto) Cancelled Baso # (Auto) Cancelled Abs Immat Gran (auto) Cancelled Absolute Neuts (auto) Cancelled Absolute Nucleated RBC 0.000 Nucleated RBC % (auto) 0.0 Neutrophils % (Manual) 42 L Band Neutrophils % 9 H Lymphocytes % (Manual) 23 Monocytes % (Manual) 17 H Metamyelocytes % 6 Myelocytes % 2 Promyelocytes % 1 Abs Neuts (Manual) 5.0 Lymphocytes # (Manual) 2.3 Monocytes # (Manual) 1.7 H Metamyelocytes # 0.6 Myelocytes # 0.2 Promyelocytes # 0.1 Platelet Estimate NORMAL Plt Morphology Comment NORMAL RBC Morphology NOTED Polychromasia 1+ (0-2) Hypochromasia 1+ (5-14) VBG pH 7.45 H VBG pCO2 27 VBG pO2 38 VBG HCO3 19 L VBG O2 Saturation 67.0 VBG Base Excess -3.4 Sodium 134 L Potassium 4.4 Chloride 104 Carbon Dioxide 19 L Anion Gap 15 BUN 26 H Creatinine 2.61 H Estim Creat Clear Calc 26.4 Estimated GFR 19 POC Glucose Random Glucose 99 Calcium 8.8 Phosphorus 2.4 L Total Bilirubin 0.6 AST 20 ALT 18 Alkaline Phosphatase 85 Troponin I High Sens Total Protein 5.8 L Albumin 3.5 04/15/21 04/15/21 05:34 06:13 WBC RBC Hgb Hct MCV MCH MCHC RDW Plt Count MPV Immature Gran % (Auto) Neut % (Auto) Lymph % (Auto) [place] % (Auto) Eos % (Auto) Baso % (Auto) Lymph # (Auto) [place] # (Auto) Eos # (Auto) Baso # (Auto) Abs Immat Gran (auto) Absolute Neuts (auto) Absolute Nucleated RBC Nucleated RBC % (auto) Neutrophils % (Manual) Band Neutrophils % Lymphocytes % (Manual) Monocytes % (Manual) Metamyelocytes % Myelocytes % Promyelocytes % Abs Neuts (Manual) Lymphocytes # (Manual) Monocytes # (Manual) Metamyelocytes # Myelocytes # Promyelocytes # Platelet Estimate Plt Morphology Comment RBC Morphology Polychromasia Hypochromasia VBG pH VBG pCO2 VBG pO2 VBG HCO3 VBG O2 Saturation VBG Base Excess Sodium Potassium Chloride Carbon Dioxide Anion Gap BUN Creatinine Estim Creat Clear Calc Estimated GFR POC Glucose 97 Random Glucose Calcium Phosphorus Total Bilirubin AST ALT Alkaline Phosphatase Troponin I High Sens 70.8 H* D Total Protein Albumin Microbiology Microbiology Results: Microbiology 04/02/21 13:20 Sputum - Suctioned Gram Stain - Final 04/02/21 13:20 Sputum - Suctioned Sputum Culture - Final Methicillin Res Staph Aureus 03/24/21 16:49 Blood - Central Line Blood Culture - Final No growth after 5 days. 03/24/21 16:49 Blood - Central Line Blood Culture - Final No growth after 5 days. 03/24/21 16:50 Urine Catheterized - Witt Catheter Urine Culture - Final No growth. 03/18/21 19:37 Blood - Venous Blood Culture - Final No growth after 5 days. 03/18/21 19:37 Blood - Venous Blood Culture - Final Procedures Date of Service Date of Service: 04/15/21 Assessment & Plan Assessment and plan (1) JOAN (acute kidney injury): Status: Acute Plan JOAN superimposed on CKD No obstruction by sonogram No proteinuria/Hematuria- AGN/AIN seem unlikely Probably has ATN- multifatorail Now increasingUOPand rate of Scr incr seems to be slowingwhich raises the ques of early signs of recovery from JOAN ? CKD 4: BSL SCr 2.5-3.0 Resp failure = s/p Trach Plan Hold on HD and track UOP. SCr and get 24 hr urine fro CrCl and UrCl Hold off on Pcath for now and reassess ? renal recovery protectnon-dominat arm for future AVF procrit as ordered Time Spent With Patient Time: Total time spent is greater than 50% in coordination of care (as documented) at patient's floor/unit and/or counseling patient: Progress Note: Quality Stroke Does the patient have a stroke diagnosis?: No
[2021-04-15] MEDS: fentaNYL citrate/NS 1,000 MCG/100 ML PLAST..BAG 2.5 MCG IVCONT (11:07)
--- NOTE | 2021-04-15 11:23 | P.PNCC_ITS ---
Subjective Subjective Date of Service: 04/15/21 Interval History: Ms. Galeas was admitted to the ICU on Mar 18 with acute respiratory failure. The patient is a 60 yo F with PMHx of COPD on 2 L of supplemental oxygen; lung cancer s/p ?palliative? 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 She?s had COVID vaccine shots x3. The patient lives with her boyfriend (Kodi Mahmood, one of her HCPs, cell ) and her son.? She walks with a cane.? She needs help with dressing and bathing.? Her daughter Anabel, who is the other HCP (cell:? [phone]), tells me that her grandmother (ie Anabel?s grandmother), who?s 80 years old, is in better health than her mother (the patient). The patient was seen in the ED here on Mar 12 c/o SOB.? Dx?d with a COPD exacc.? (No CXR or COVID test done.)? Discharged with a Prednisone script. HISTORY OF PRESENT ILLNESS: The patient was BIBA on 03/18/2021 with SOB and confusion.? ABG showed 7.45/37/124/+2.? CXR showed increased interstitial prominence bilaterally, and a new more focal hazy opacity in the left lower lobe.? COVID-19 test was positive.? BUN/creat 131/2.5 (baseline about 90/3.2).? D-dimer was 2300.? She developed hypoxia refractory to NIV, and required intubation and ventilatory support.? She was admitted to ICU, and treated for COVID.? Noncontrast chest CT showed empysema; small areas of dense opacification in the posterior lower lobes with scattered small areas of groundglass attenuation in the upper lobes; suggestive of multifocal pneumonia and/or sequelae of aspiration.? Venous Duplex scan was negative Peak trop was 2800.? EKG showed no ischemic changes.? Echocardiogram on Mar 19 showed LVEF 30% with marked RWMAs.? The RV size was mod increased, with dec reased fxn.? IVC was dilated w no insp collapse.? RVSP estimate 41mm. ?Last echo 2018 showed normal LV fxn, mild LVH, normal right heart, no valvular pathology.? Thought to have NSTEMI vs demand ischemia. The patient?s FiO2 came down rapidly, and bec of that, COVID pneumonia was felt unlikely and COVID treatment was stopped.? The patient was extubated on 03/21/2021. ?She was sat?ing up to 98% on 2L NC.? The patient?s renal indices cally progressively.? The patient remained significantly encephalopathic, thought likely secondary to uremia.? On Mar 23 she developed respiratory distress and hypoxemia thought secondary to aspiration and/or inability to protect the airway.? The patient was reintubated.? Head CT showed no acute structural lesions to account for her encephalopathy. A temporary dialysis catheter was placed on Mar 24 and she was started on dialysis on March 25.? Repeat echo that day showed near normal LV function, and normal RV size and function.? The IVC was normal sized with near full inspiratory collapse, suggesting that she might be hypovolemic.? Volume resuscitation improved her BP.? New onset atrial flutter was converted to SR with diltiazem.? WBC cally to 48.? All cultures negative, CDiff negative. Mar 26 she was putting out black stool, hemoccult positive.? Hb was down 3grams.? She underwent EGD by Dr. Queen.? Found gastritis with erosions that were likely the site of bleeding.? She was tx w bid PPI plus Carafate.? A lung perfusion study showed very low prob of PE. The patient had delayed awakening with sedation holidays.? Finally extubated uneventfully on April 08.? She developed pulmon edema, managed with BiPAP and hemodialysis, but nevertheless, required re-intubation on April 09.? She then underwent tracheostomy and PEG on April 11. Last night the patient had an episode of resp distress of unclear etiol, with severe HTN with BP 240s, assoc with pink froth from her trach tube.? I bronched her to make sure that the trach tube was not malpositioned.? Everything looked fine. Her mental status has continuously improved over the last week.? Today on Precedex 1ug, she was smiling and mouthing words at me.? Seemed to comprehend everything I was saying, and followed commands appropriately.? See vital signs below.? Sat is 99% on 24% FiO2.? On PSV 20, tidal vols were 300-350cc, RR about 30.? She lasted for about 2 hours.? No JVD at 20?.? Chest CTA with normal exp phase.? Regular rate and rhythm, with normal-sounding S1 and S2, with no murmur or gallops.? Abdomen is benign.? Trivial if any edema.? She?s significantly wrinkled.? Neuro:? Severe ICU myopathy, motor strength is barely antigravity, a bout 02/12, nonfocal. LABORATORY DATA:? Below.? Trop this morning was 70.? EKG was unchanged from prior, with anterolat Tw inversions. MICROBIOLOGY:? No recent cultures. IMPRESSION: 1. Underlying emphysematous lung disease. 2. Chronic hypoxemic and hypercapnic lung disease.? Blood gasses show signif hypercarbia dating back at least two years. 3. Underlying CKD 4-5. 4. Significant baseline disability 5. Acute respiratory failure on admission, the etiology of which is not clear.? Her admitting CXR was c/w almost anything.? Although her chest CT was not inconsistent with mild COVID pneumonia, the fact that she went from 100% FiO2 to 2L NC (which is her baseline) in a few days is thoroughly inconsistent with severe COVID pneumonia.? PE was eventually ruled out by perfusion scan.? And her hypoxemia was not likely aspiration or bacterial or viral pneumonia, given the relatively clear CXR.? Whatever the cause, three days of Solu-Medrol significantly improved her hypoxemia. 6. COVID positive on admission, but she didn?t have COVID pneumonia. 7. Biventricular heart failure on echo of Mar 19.? Likely NSTEMI vs demand ischemia.? Her echo pretty much normalized by Mar 25. 8. ?ACS.? Initial troponins had no accompanying EKG changes, but the trop bump on 03/26 had new T wave inversions.? So we added statin and metoprolol. 9. Acute on chronic renal failure.? Undoubtedly 2? ATN.? U/O has been 400-600 cc/shift over last 24 hrs.? Hold dialysis for now and watch her renal and metabolic indices.? Check 24 hr urine creat.? Hold on permcath for now. 10. Encephalopathy.? Likely metabolic 2? uremia.? Slowly resolved after many HD sessions. 11. UGI bleed.? 2? stress gastritis.? Now on just Pepcid. 12. Severe ICU myopathy.? Anticipate resp weaning period of 1-2 months.? Will need prolonged rehab. 13. Episode last night of hypertensive crisis w acute pulmon edema.? Resolved. 14. Nutrition.? On goal rate Promote. Critical Care Time (minutes): 60 Physical Exam Vital Signs: Vital Signs: Last Vital Signs Temp 99.1 F 04/15/21 10:00 Pulse 81 04/15/21 11:00 Resp 19 04/15/21 11:00 BP 104/63 04/15/21 11:00 Pulse Ox 97 04/15/21 11:00 BMI result Body Mass Index 35.4 Objective Data Labs CBC & Chem 7: 04/15/21 05:32 04/15/21 05:32 Labs: Laboratory Results - last 24 hr 04/14/21 04/14/21 04/14/21 12:13 17:50 19:20 WBC RBC Hgb Hct MCV MCH MCHC RDW Plt Count MPV Immature Gran % (Auto) Neut % (Auto) Lymph % (Auto) [place] % (Auto) Eos % (Auto) Baso % (Auto) Lymph # (Auto) [place] # (Auto) Eos # (Auto) Baso # (Auto) Abs Immat Gran (auto) Absolute Neuts (auto) Absolute Nucleated RBC Nucleated RBC % (auto) Neutrophils % (Manual) Band Neutrophils % Lymphocytes % (Manual) Monocytes % (Manual) Metamyelocytes % Myelocytes % Promyelocytes % Abs Neuts (Manual) Lymphocytes # (Manual) Monocytes # (Manual) Metamyelocytes # Myelocytes # Promyelocytes # Platelet Estimate Plt Morphology Comment RBC Morphology Polychromasia Hypochromasia VBG pH 7.36 VBG pCO2 32 VBG pO2 36 VBG HCO3 18 L VBG O2 Saturation 56.0 VBG Base Excess -5.6 Sodium Potassium Chloride Carbon Dioxide Anion Gap BUN Creatinine Estim Creat Clear Calc Estimated GFR POC Glucose 147 H 106 Random Glucose Calcium Phosphorus Total Bilirubin AST ALT Alkaline Phosphatase Troponin I High Sens Total Protein Albumin 04/14/21 04/14/21 04/15/21 19:39 23:31 05:32 WBC RBC Hgb Hct MCV MCH MCHC RDW Plt Count MPV Immature Gran % (Auto) Neut % (Auto) Lymph % (Auto) [place] % (Auto) Eos % (Auto) Baso % (Auto) Lymph # (Auto) [place] # (Auto) Eos # (Auto) Baso # (Auto) Abs Immat Gran (auto) Absolute Neuts (auto) Absolute Nucleated RBC Nucleated RBC % (auto) Neutrophils % (Manual) Band Neutrophils % Lymphocytes % (Manual) Monocytes % (Manual) Metamyelocytes % Myelocytes % Promyelocytes % Abs Neuts (Manual) Lymphocytes # (Manual) Monocytes # (Manual) Metamyelocytes # Myelocytes # Promyelocytes # Platelet Estimate Plt Morphology Comment RBC Morphology Polychromasia Hypochromasia VBG pH 7.38 VBG pCO2 32 VBG pO2 48 VBG HCO3 19 L VBG O2 Saturation 76.0 VBG Base Excess -4.5 Sodium Potassium Chloride Carbon Dioxide Anion Gap BUN Creatinine Estim Creat Clear Calc Estimated GFR POC Glucose 142 H Random Glucose Calcium Phosphorus Cancelled Total Bilirubin AST ALT Alkaline Phosphatase Troponin I High Sens Total Protein Albumin 04/15/21 04/15/21 04/15/21 05:32 05:32 05:34 WBC 9.8 RBC 3.00 L Hgb 8.4 L Hct 26.3 L MCV 87.7 MCH 28.0 MCHC 31.9 RDW 17.0 H Plt Count 335 MPV 8.9 L Immature Gran % (Auto) Cancelled Neut % (Auto) Cancelled Lymph % (Auto) Cancelled [place] % (Auto) Cancelled Eos % (Auto) Cancelled Baso % (Auto) Cancelled Lymph # (Auto) Cancelled [place] # (Auto) Cancelled Eos # (Auto) Cancelled Baso # (Auto) Cancelled Abs Immat Gran (auto) Cancelled Absolute Neuts (auto) Cancelled Absolute Nucleated RBC 0.000 Nucleated RBC % (auto) 0.0 Neutrophils % (Manual) 42 L Band Neutrophils % 9 H Lymphocytes % (Manual) 23 Monocytes % (Manual) 17 H Metamyelocytes % 6 Myelocytes % 2 Promyelocytes % 1 Abs Neuts (Manual) 5.0 Lymphocytes # (Manual) 2.3 Monocytes # (Manual) 1.7 H Metamyelocytes # 0.6 Myelocytes # 0.2 Promyelocytes # 0.1 Platelet Estimate NORMAL Plt Morphology Comment NORMAL RBC Morphology NOTED Polychromasia 1+ (0-2) Hypochromasia 1+ (5-14) VBG pH 7.45 H VBG pCO2 27 VBG pO2 38 VBG HCO3 19 L VBG O2 Saturation 67.0 VBG Base Excess -3.4 Sodium 134 L Potassium 4.4 Chloride 104 Carbon Dioxide 19 L Anion Gap 15 BUN 26 H Creatinine 2.61 H Estim Creat Clear Calc 26.4 Estimated GFR 19 POC Glucose Random Glucose 99 Calcium 8.8 Phosphorus 2.4 L Total Bilirubin 0.6 AST 20 ALT 18 Alkaline Phosphatase 85 Troponin I High Sens Total Protein 5.8 L Albumin 3.5 04/15/21 04/15/21 05:34 06:13 WBC RBC Hgb Hct MCV MCH MCHC RDW Plt Count MPV Immature Gran % (Auto) Neut % (Auto) Lymph % (Auto) [place] % (Auto) Eos % (Auto) Baso % (Auto) Lymph # (Auto) [place] # (Auto) Eos # (Auto) Baso # (Auto) Abs Immat Gran (auto) Absolute Neuts (auto) Absolute Nucleated RBC Nucleated RBC % (auto) Neutrophils % (Manual) Band Neutrophils % Lymphocytes % (Manual) Monocytes % (Manual) Metamyelocytes % Myelocytes % Promyelocytes % Abs Neuts (Manual) Lymphocytes # (Manual) Monocytes # (Manual) Metamyelocytes # Myelocytes # Promyelocytes # Platelet Estimate Plt Morphology Comment RBC Morphology Polychromasia Hypochromasia VBG pH VBG pCO2 VBG pO2 VBG HCO3 VBG O2 Saturation VBG Base Excess Sodium Potassium Chloride Carbon Dioxide Anion Gap BUN Creatinine Estim Creat Clear Calc Estimated GFR POC Glucose 97 Random Glucose Calcium Phosphorus Total Bilirubin AST ALT Alkaline Phosphatase Troponin I High Sens 70.8 H* D Total Protein Albumin Microbiology Microbiology Results: Microbiology 04/02/21 13:20 Sputum - Suctioned Gram Stain - Final 04/02/21 13:20 Sputum - Suctioned Sputum Culture - Final Methicillin Res Staph Aureus 03/24/21 16:49 Blood - Central Line Blood Culture - Final No growth after 5 days. 03/24/21 16:49 Blood - Central Line Blood Culture - Final No growth after 5 days. 03/24/21 16:50 Urine Catheterized - Witt Catheter Urine Culture - Final No growth. 03/18/21 19:37 Blood - Venous Blood Culture - Final No growth after 5 days. 03/18/21 19:37 Blood - Venous Blood Culture - Final Quality Stroke Does the patient have a stroke diagnosis?: No VTE Prior VTE?: No VTE Risk Level:: Medical - moderate - high VTE Device Contraindication: Treatment Not Indicated VTE Drug Contraindication: N/A - Med Ordered Critical Care Time Critical Care Time (minutes): 60
[2021-04-15 12:00] LABS: Glucose, Whole Blood 94 mg/dL (60-115)
[2021-04-15] MEDS: dexmedeTOMIDidine HCL/NS 400 MCG/100 ML INFUS..BTL 19.04 MCG IVCONT (14:14)
--- NOTE | 2021-04-15 14:29 | MHC.CM.PN ---
Pt continues in ICU s/p trach/peg: pt not able to transition to trach mask but has been producing more urine which is encouraging to MD and nephrology. ? recovery by kidneys. Updates remitted to [facility] for possible transfer. Call placed to Anabel pt's dtr to update her on progress. CM to follow
[2021-04-15] MEDS: fentaNYL citrate/PF 100 MCG/2 ML VIAL 50 MCG IVPUSH (21:57)
[2021-04-15 23:24] LABS: Glucose, Whole Blood 103 mg/dL (60-115)
[2021-04-15 23:33] LABS: Glucose, Whole Blood 91 mg/dL (60-115)
[2021-04-16] VITALS (37 sets, daily range): BP systolic 96–124; BP diastolic 53–73; PULSE 83–139; RESP 7–33; TEMP 33.8–39; O2SAT 96–100; BMI 35.7
[2021-04-16] MEDS: dexmedeTOMIDidine HCL/NS 400 MCG/100 ML INFUS..BTL 23.8 MCG IVCONT ×5 (00:35→20:13)
[2021-04-16] MEDS: fentaNYL citrate/PF 100 MCG/2 ML VIAL IVPUSH ×4 (02:32→14:09)
[2021-04-16] MEDS: Heparin Sodium,Porcine 5,000 UNIT/ML VIAL 5000 UNIT SUBCUT ×3 (02:32→20:16)
[2021-04-16 05:52] LABS: Glucose, Whole Blood 103 mg/dL (60-115)
[2021-04-16 06:04] LABS: Anion Gap 17 (12-20); Blood Urea Nitrogen 37 mg/dL (9-16); Calcium 8.9 mg/dL (8.4-10.2); Carbon Dioxide 18 mmol/L (22-29); Chloride 108 mmol/L (96-108); Creatinine Clr Calc Pharmacy 20.1; Estimated Glomerular Filt Rate 14; Glucose Random 107 mg/dL (60-115); Phosphorus 3.2 mg/dL (2.7-4.5); Potassium 4.9 mmol/L (3.3-5.1); Sodium 138 mmol/L (135-145)
[2021-04-16 06:22] LABS: Troponin-I High Sensitivity 54.4 ng/L (<3.5-17.0)
--- NOTE | 2021-04-16 07:46 | P.CDIC_ITS ---
CDI Concurrent Query Documentation Clarification: PHYSICIAN'S DOCUMENTATION REQUEST Date of Query: 04/16/21 0748 Patient Name: Deirdre Galeas Admit Date: 03/18/21 Dear Doctor, A review of the medical record indicates additional documentation may be needed. Please review below and update the documentation accordingly. Clinical Indicators: Risk Factors/Clinical Indicators/Treatments ICU note 04/15 - Impression - Severe ICU myopathy. Based on the above, could you clarify in the Progress Notes the appropriate diagnosis, if significant, that supports the above abnormalities and additional evaluation, monitoring, and/or treatment rendered: Specifics to a diagnosis documented in progress notes: Myopathy * Critical illness myopathy * Drug induced myopathy * Other myopathy * Other (please specify) * Unable to determine Use of terms such as suspected, likely, concern for, or probable (associated with a specific diagnosis that is being evaluated, monitored, or treated as if it exists) are acceptable and can be coded in the inpatient setting, when documented at the time of discharge. Thank you, Brandy Castro [facility], CDIS Extension: [phone] Please use your independent medical judgment in providing your response. THIS QUERY IS PART OF THE PERMANENT MEDICAL RECORD Provider Response: Other Other Diagnosis: ICU myopathy and critical illness myopathy are synonymous
[2021-04-16 07:55] LABS: Total Volume 24 Hour Urine 600 mL
[2021-04-16 07:57] LABS: Creatinine, 24Hr Urine 0.2 G/Day (1.0-2.0); Creatinine, mg/dL 26.12
[2021-04-16] MEDS: Chlorhexidine Gluc Oral Rinse 15 ML MOUTHWASH BUCCAL ×3 (08:06→20:15)
[2021-04-16] MEDS: Metoprolol Tartrate 25 MG TABLET PO ×2 (08:06→20:15)
[2021-04-16] MEDS: Famotidine 20 MG TABLET PO (08:06)
--- NOTE | 2021-04-16 09:52 | MHC.CLN ---
F/U PT WITH INCREASED NUTRITION RISK R/T PRESSURE INJURIES PT RECEIVING PROMOTE AT MAX GOAL RATE 60ML/HR WITH 120ML FWF Q 6HRS PROVIDES 1440KCALS (21KCALS/KG BASED ON CMW), 90G PROTEIN (1.3G/KG), 1688CC TOTAL FREE WATER FROM FORMULA AND FLUSHES (25ML/KG) PT RECEIVING HD; MONITOR RENAL INDICES CLOSELY WITH INCREASE IN PO PROTEIN CONTINUE TO MONITOR TOLERANCE, RESIDUALS AND LYTES
--- NOTE | 2021-04-16 09:55 | PM.PNNEP ---
Subjective Subjective Date of Service: 04/16/21 Interval history: Seen and examined, events noted Physical Exam Vital Signs: Vital Signs: Last Vital Signs Temp 99.1 F 04/16/21 08:00 Pulse 103 H 04/16/21 09:00 Resp 17 04/16/21 09:00 BP 106/54 L 04/16/21 09:00 Pulse Ox 98 04/16/21 09:00 BMI result Body Mass Index 35.7 Const: Other: Awake Reintubated 04/09/21 Now on Trach Lungs with Rhonchi Hrt : No gallop or rub Abd Obese Soft NS no asterexis General: comfortable, no acute distress and ill appearing HENMT: Head: Yes normocephalic and Yes atraumatic Neck: Neck: Yes supple Resp: Auscultation: diminished lung sounds Cardio: Rate: regular rate and tachycardic Heart sounds: S1 normal heart sound present and S2 normal heart sound present GI: Palpation (GI): Soft to palpation and no guarding Neuro: Other: Sedated Extrem: General: Yes pedal edema Objective Data Labs CBC & Chem 7: 04/15/21 05:32 04/16/21 05:25 Labs: Laboratory Results - last 24 hr 04/15/21 04/15/21 04/15/21 05:34 11:53 18:05 Sodium Potassium Chloride Carbon Dioxide Anion Gap BUN Creatinine Estim Creat Clear Calc Estimated GFR POC Glucose 94 103 Random Glucose Calcium Phosphorus Troponin I High Sens 70.8 H* D Ur 24 Hour Volume Ur Creatinine mg/dL Ur Creatinine 24 Hour 04/15/21 04/16/21 04/16/21 23:28 05:25 05:25 Sodium 138 Potassium 4.9 Chloride 108 Carbon Dioxide 18 L Anion Gap 17 BUN 37 H Creatinine 3.38 H Estim Creat Clear Calc 20.1 Estimated GFR 14 POC Glucose 91 Random Glucose 107 Calcium 8.9 Phosphorus 3.2 Troponin I High Sens 54.4 H* Ur 24 Hour Volume Ur Creatinine mg/dL Ur Creatinine 24 Hour 04/16/21 04/16/21 05:30 05:46 Sodium Potassium Chloride Carbon Dioxide Anion Gap BUN Creatinine Estim Creat Clear Calc Estimated GFR POC Glucose 103 Random Glucose Calcium Phosphorus Troponin I High Sens Ur 24 Hour Volume 600 Ur Creatinine mg/dL 26.12 Ur Creatinine 24 Hour 0.2 L Microbiology Microbiology Results: Microbiology 04/02/21 13:20 Sputum - Suctioned Gram Stain - Final 04/02/21 13:20 Sputum - Suctioned Sputum Culture - Final Methicillin Res Staph Aureus 03/24/21 16:49 Blood - Central Line Blood Culture - Final No growth after 5 days. 03/24/21 16:49 Blood - Central Line Blood Culture - Final No growth after 5 days. 03/24/21 16:50 Urine Catheterized - Witt Catheter Urine Culture - Final No growth. 03/18/21 19:37 Blood - Venous Blood Culture - Final No growth after 5 days. 03/18/21 19:37 Blood - Venous Blood Culture - Final Procedures Date of Service Date of Service: 04/16/21 Assessment & Plan Assessment and plan (1) JOAN (acute kidney injury): Status: Acute Plan JOAN superimposed on CKD Scr incr past 24 hrs butr still no as indication for HD; makng urine and still a hope she may be early phase of recovering enough to come off HD; Pcath on hold for now CKD 4: BSL SCr 2.5-3.0 Time Spent With Patient Time: Total time spent is greater than 50% in coordination of care (as documented) at patient's floor/unit and/or counseling patient: Progress Note: Quality Stroke Does the patient have a stroke diagnosis?: No
[2021-04-16 12:02] LABS: Glucose, Whole Blood 129 mg/dL (60-115)
[2021-04-16] MEDS: Cholestyramine (With Sugar) 4 GM POWD.PACK 8 GM PO ×2 (12:34→20:16)
[2021-04-16] MEDS: HYDROmorphone HCl 1 MG/ML SYRINGE IVPUSH (12:43)
[2021-04-16] MEDS: cloNIDine HCL 0.1 MG TABLET G-TUBE ×2 (13:52→22:39)
--- NOTE | 2021-04-16 14:16 | P.PNCC_ITS ---
Subjective Subjective Date of Service: 04/16/21 Interval History: Ms. Galeas was admitted to the ICU on Mar 18 with acute respiratory failure. The patient is a 60 yo F with PMHx of COPD on 2 L of supplemental oxygen; lung cancer s/p ?palliative? 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 She?s had COVID vaccine shots x3. The patient lives with her boyfriend (Kodi Mahmood, one of her HCPs, cell ) and her son.? She walks with a cane.? She needs help with dressing and bathing.? Her daughter Anabel, who is the other HCP (cell:? [phone]), tells me that her grandmother (ie Anabel?s grandmother), who?s 80 years old, is in better health than her mother (the patient). The patient was seen in the ED here on Mar 12 c/o SOB.? Dx?d with a COPD exacc.? (No CXR or COVID test done.)? Discharged with a Prednisone script. HISTORY OF PRESENT ILLNESS: The patient was BIBA on 03/18/2021 with SOB and confusion.? ABG showed 7.45/37/124/+2.? CXR showed increased interstitial prominence bilaterally, and a new more focal hazy opacity in the left lower lobe.? COVID-19 test was positive.? BUN/creat 131/2.5 (baseline about 90/3.2).? D-dimer was 2300.? She developed hypoxia refractory to NIV, and required intubation and ventilatory support.? She was admitted to ICU, and treated for COVID.? Noncontrast chest CT showed empysema; small areas of dense opacification in the posterior lower lobes with scattered small areas of groundglass attenuation in the upper lobes; suggestive of multifocal pneumonia and/or sequelae of aspiration.? Venous Duplex scan was negative Peak trop was 2800.? EKG showed no ischemic changes.? Echocardiogram on Mar 19 showed LVEF 30% with marked RWMAs.? The RV size was mod increased, with dec reased fxn.? IVC was dilated w no insp collapse.? RVSP estimate 41mm. ?Last echo 2018 showed normal LV fxn, mild LVH, normal right heart, no valvular pathology.? Thought to have NSTEMI vs demand ischemia. The patient?s FiO2 came down rapidly, and bec of that, COVID pneumonia was felt unlikely and COVID treatment was stopped.? The patient was extubated on 03/21/2021. ?She was sat?ing up to 98% on 2L NC.? The patient?s renal indices cally progressively.? The patient remained significantly encephalopathic, thought likely secondary to uremia.? On Mar 23 she developed respiratory distress and hypoxemia thought secondary to aspiration and/or inability to protect the airway.? The patient was reintubated.? Head CT showed no acute structural lesions to account for her encephalopathy. A temporary dialysis catheter was placed on Mar 24 and she was started on dialysis on March 25.? Repeat echo that day showed near normal LV function, and normal RV size and function.? The IVC was normal sized with near full inspiratory collapse, suggesting that she might be hypovolemic.? Volume resuscitation improved her BP.? New onset atrial flutter was converted to SR with diltiazem.? WBC cally to 48.? All cultures negative, CDiff negative. Mar 26 she was putting out black stool, hemoccult positive.? Hb was down 3grams.? She underwent EGD by Dr. Queen.? Found gastritis with erosions that were likely the site of bleeding.? She was tx w bid PPI plus Carafate.? A lung perfusion study showed very low prob of PE. The patient had delayed awakening with sedation holidays.? Finally extubated uneventfully on April 08.? She developed pulmon edema, managed with BiPAP and hemodialysis, but nevertheless, required re-intubation on April 09.? She then underwent tracheostomy and PEG on April 11. Her mental status has continuously improved over the last week.? On Precedex over the last couple of days she?s been easily and appropriately interactive.? This morning we put her on PSV 20/24%/+5. ?RR at the start was about 15, w Vt 750s.? We gave her a Precedex holiday and had her on PSV for about 4 hrs.?? At the end, she was tachycardic, tachypneic, and anxious. ?VS below.? Tmax 100.8?.? Sat 98% on 24% FiO2.? No JVD at 20?.? Chest CTA with normal exp phase.? Regular rate and rhythm, tachy, with normal-sounding S1 and S2, with no murmur or gallops.? Abdomen is benign.? Trivial if any edema.? She?s significantly wrinkled.? Neuro:? Severe ICU myopathy, motor strength is barely antigravity, nonfocal. U/O for 24 hrs: About 700cc. LABORATORY DATA:? Below. MICROBIOLOGY:? No recent cultures. IMPRESSION: 1. Underlying emphysematous lung disease. 2. Chronic hypoxemic and hypercapnic lung disease.? Blood gasses show signif hypercarbia dating back at least two years. 3. Underlying CKD 4-5. 4. Significant baseline disability 5. Acute respiratory failure on admission, the etiology of which is not clear.? Her admitting CXR was c/w almost anything.? Although her chest CT was not inconsistent with mild COVID pneumonia, the fact that she went from 100% FiO2 to 2L NC (which is her baseline) in a few days is thoroughly inconsistent with severe COVID pneumonia.? PE was eventually ruled out by perfusion scan.? And her hypoxemia was not likely aspiration or bacterial or viral pneumonia, given the relatively clear CXR.? Whatever the cause, three days of Solu-Medrol significantly improved her hypoxemia. 6. COVID positive on admission, but she didn?t have COVID pneumonia. 7. Biventricular heart failure on echo of Mar 19.? Likely NSTEMI vs demand ischemia.? Her echo pretty much normalized by Mar 25. 8. ?ACS.? Initial troponins had no accompanying EKG changes, but the trop bump on 03/26 had new T wave inversions.? So we added statin and metoprolol. 9. Acute on chronic renal failure.? Undoubtedly 2? ATN.? U/O last couple days about 400cc/shift.? Hold dialysis for now and watch her renal and metabolic indices.? Checking 24 hr urine creat.? Hold on permcath for now. 10. Encephalopathy.? Likely metabolic 2? uremia.? Slowly resolved after many HD sessions. 11. UGI bleed.? 2? stress gastritis.? Now on just Pepcid. 12. Severe critical illness myopathy.? Anticipate resp weaning period of 1-2 months.? Will need prolonged rehab. 13. Nutrition.? On goal rate Promote. 14. Diarrhea.? Started questran. Critical Care Time (minutes): 50 Physical Exam Vital Signs: Vital Signs: Last Vital Signs Temp 100.5 F H 04/16/21 13:31 Pulse 137 H 04/16/21 14:00 Resp 30 H 04/16/21 14:09 BP 124/71 04/16/21 14:00 Pulse Ox 97 04/16/21 14:00 BMI result Body Mass Index 35.7 Objective Data Labs CBC & Chem 7: 04/15/21 05:32 04/16/21 05:25 Labs: Laboratory Results - last 24 hr 04/15/21 04/15/21 04/16/21 18:05 23:28 05:25 Sodium 138 Potassium 4.9 Chloride 108 Carbon Dioxide 18 L Anion Gap 17 BUN 37 H Creatinine 3.38 H Estim Creat Clear Calc 20.1 Estimated GFR 14 POC Glucose 103 91 Random Glucose 107 Calcium 8.9 Phosphorus 3.2 Troponin I High Sens Ur 24 Hour Volume Ur Creatinine mg/dL Ur Creatinine 24 Hour 04/16/21 04/16/21 04/16/21 05:25 05:30 05:46 Sodium Potassium Chloride Carbon Dioxide Anion Gap BUN Creatinine Estim Creat Clear Calc Estimated GFR POC Glucose 103 Random Glucose Calcium Phosphorus Troponin I High Sens 54.4 H* Ur 24 Hour Volume 600 Ur Creatinine mg/dL 26.12 Ur Creatinine 24 Hour 0.2 L 04/16/21 11:58 Sodium Potassium Chloride Carbon Dioxide Anion Gap BUN Creatinine Estim Creat Clear Calc Estimated GFR POC Glucose 129 H Random Glucose Calcium Phosphorus Troponin I High Sens Ur 24 Hour Volume Ur Creatinine mg/dL Ur Creatinine 24 Hour Microbiology Microbiology Results: Microbiology 04/02/21 13:20 Sputum - Suctioned Gram Stain - Final 04/02/21 13:20 Sputum - Suctioned Sputum Culture - Final Methicillin Res Staph Aureus 03/24/21 16:49 Blood - Central Line Blood Culture - Final No growth after 5 days. 03/24/21 16:49 Blood - Central Line Blood Culture - Final No growth after 5 days. 03/24/21 16:50 Urine Catheterized - Witt Catheter Urine Culture - Final No growth. 03/18/21 19:37 Blood - Venous Blood Culture - Final No growth after 5 days. 03/18/21 19:37 Blood - Venous Blood Culture - Final Quality Stroke Does the patient have a stroke diagnosis?: No VTE Prior VTE?: No VTE Risk Level:: Medical - moderate - high VTE Device Contraindication: Treatment Not Indicated VTE Drug Contraindication: N/A - Med Ordered Critical Care Time Critical Care Time (minutes): 60
--- NOTE | 2021-04-16 14:31 | MHC.CM.PN ---
Pt continues in ICU : trialing trach/vent setting reduction: pt able to follow commands and track. PT/OT/Speech evals to be placed to begin therapies in anticipation of transfer to [facility]. Clinical updates sent to [facility] including notes re: improved renal fx and no HD x several days. CM to follow.
[2021-04-16] MEDS: LORazepam 2 MG/ML VIAL 1 MG IVPUSH (14:48)
[2021-04-16] MEDS: clonazePAM 0.5 MG TABLET PO ×2 (14:56→20:15)
[2021-04-16 17:55] LABS: Glucose, Whole Blood 106 mg/dL (60-115)
--- NOTE | 2021-04-16 18:29 | PC.NURSE ---
TMAX 102.0 CORE AT 1832, VSS. VENT SETTINGS CHANGED OVER TO PS 20/5 ON 24% AT 0730 AND CHANGED BACK TO AC 18/420/10/24% AT 1400. PRECEDEX GTT OFF FROM [id number] PER MD. PATIENT NODDED YES TO PAIN AND TREATED WITH PRN DILAUDID. SEE EMAR. INCREASED WOB NOTED - TREATED WITH PRN FENTANYL X 2. SEE EMAR. PATIENT BECAME ANXIOUS AND TREATED WITH ATIVAN 1 MG X 1 AND ORDERED A SCHEDULED KLONOPIN - PATIENT WAS ABLE TO REST POST MEDICATION ADMINISTRATION. MOSLEY OUTPUT FROM [id number] = 375 ML. FREQUENT LIQUID BMS TODAY. Q2HR REPO, PREVALON SYSTEM UTILIZED/PILLOWS/WEDGES/HEELBOS, BARRIER CREAM, TURNING BED.
[2021-04-16] MEDS: Acetaminophen Oral Liquid 650 MG/20.3 ML SOLUTION 1000 MG PO (22:39)
[2021-04-16 23:42] LABS: Glucose, Whole Blood 135 mg/dL (60-115)
[2021-04-17] VITALS (33 sets, daily range): BP systolic 73–152; BP diastolic 37–83; PULSE 74–137; RESP 12–34; TEMP 34–38.6; O2SAT 95–100; BMI 37.2
[2021-04-17] MEDS: dexmedeTOMIDidine HCL/NS 400 MCG/100 ML INFUS..BTL 14.28 MCG IVCONT (00:11)
[2021-04-17] MEDS: Lactated Ringers 500 ML 999 ML IV (00:44)
[2021-04-17 01:06] LABS: Hematocrit 24.5 % (37.0-47.0); Hemoglobin 7.1 g/dl (12.0-16.0); Mean Corpuscular Hemoglobin 28.2 pg (27.0-33.0); Mean Corpuscular Volume 97.2 fL (80.0-98.0); Mean Platelet Volume 9.4 fL (9.4-12.3); Platelet Count 335 X10*3/uL (160-400); Red Blood Count 2.52 X10*6/uL (4.20-5.50); Red Cell Distribution Width 17.6 % (11.0-16.0); White Blood Count 10.3 X10*3/uL (4.8-10.8)
[2021-04-17] MEDS: Lactated Ringers 1,000 ML 999 ML IV (01:18)
[2021-04-17 01:22] LABS: Lactic Acid 2.2 mmol/L (0.5-2.0)
[2021-04-17 01:23] LABS: Anion Gap 18 (12-20); Blood Urea Nitrogen 47 mg/dL (9-16); Calcium 8.9 mg/dL (8.4-10.2); Carbon Dioxide 14 mmol/L (22-29); Chloride 109 mmol/L (96-108); Creatinine Clr Calc Pharmacy 17.1; Estimated Glomerular Filt Rate 12; Glucose Fasting 119 mg/dL (60-99); Potassium 5.8 mmol/L (3.3-5.1); Sodium 135 mmol/L (135-145)
[2021-04-17 01:28] LABS: Band Neutrophils Percent 8 % (3-5); Basophils Abs Manual 0.1 X10*3/uL (0.0-0.2); Basophils Percent Manual 1 % (0-2); Eosinophils Absolute Manual 0.1 X10*3/uL (0.0-0.4); Eosinophils Percent Manual 1 % (0-4); Lymphocytes Absolute Manual 1.9 X10*3/uL (1.2-4.9); Lymphocytes Percent Manual 18 % (20-40); Metamyelocytes Absolute 0.6 X10*3/uL; Metamyelocytes Percent 6 %; Monocytes Absolute Manual 2.1 X10*3/uL (0.1-1.2); Monocytes Percent Manual 20 % (2-11); Myelocytes Absolute 0.2 X10*/uL; Myelocytes Percent 2 %; Neutrophils Absolute Manual 5.4 X10*3/uL (2.0-8.3); Neutrophils Percent Manual 44 % (45-73)
[2021-04-17 01:29] LABS: RBC Morphology NOTED
[2021-04-17 01:30] LABS: Large Platelet PRESENT; Platelet Estimate NORMAL (NORMAL); Platelet Morphology Comment NOTED
[2021-04-17 01:31] LABS: Acanthocytes 2+ (3-5) /OIF; Hypochromasia 1+ (5-14) /OIF
[2021-04-17 01:32] LABS: Schistocytes 1+ (0-2) /OIF
[2021-04-17 02:40] LABS: Phosphorus 2.9 mg/dL (2.7-4.5)
[2021-04-17] MEDS: Sodium Polystyrene Sulfon/Sorb 15 GM/60 ML ORAL.SUSP 30 GM PO (02:42)
[2021-04-17] MEDS: Albuterol Sulfate (0.083%) 2.5 MG/3 ML VIAL.NEB 7.5 MG INHALE (02:46)
[2021-04-17 03:03] LABS: Reflex Lactate? Lactic Acid Added
--- NOTE | 2021-04-17 03:27 | PC.NURSE ---
Addendum entered by Charles Terrazas RN 04/17/21 05:17: multiple liquied brown stools....stool for c.diff ordered/collected Original Note: CARE ASSUMED 23:15...REMAINED VENTED VIA TRACHEOTOMY...AC/VCV MODE...PRECIDEX 1.0 MCG/KG/HR...T-MAX AT HS 102.2 PER SHIFT REPORT..PREVIOUSLY RECEIVED TYLENOL PER MAR VIA PEG..AWAKE TO VERBAL STIMULI..TRACKS SPEAKER...SINUS TACH HR 110'S..APPROX 12AM PATIENT SBP 70'S-80'S...DIAPHORETIC..POC NSSANIE=437....TEMP 98.9....PRECIDEX WEANED TO 0.4 MCG/KG/HR W/O EFFECT ON BP..ICU PA PRESENT...LR 500ml INFUSED W/O EFFECT...LR 1000ml ..LEVOPHED DRIP STARTED AND TITRATED TO 0.06 MCG/KG/MIN WITH IMPROVED BP...ICU PA AT BEDSIDE FOR ECHO..STAT LABS DRAWN AND REVIEWED BY PA...BLOD & URINE CULTURES DRAWN..CXR DONE....KAYEXALETE 30 GRAMS VIA PEG GIVEN...RT PRESENT FOR ALBUTEROL UPDRAFT...RIGHT JUGULAR DIALYSIS LINE D/C'D INTACT PER PA...NO BLEEDING AFTER REMOVAL..
[2021-04-17 03:29] LABS: ~Lactic Acid-LAB USE ONLY 1.8 mmol/L (0.5-2.0)
[2021-04-17] MEDS: Heparin Sodium,Porcine 5,000 UNIT/ML VIAL 5000 UNIT SUBCUT ×3 (03:53→20:21)
[2021-04-17 05:24] LABS: VBG Base Excess -8.2 mmol/L; VBG HCO3 15 mmol/L (22-26); VBG pCO2 25 mmHg; VBG pH 7.38 (7.32-7.43); VBG pO2 48 mmHg
[2021-04-17 05:27] LABS: Venous Blood Gas Refer to POC result
[2021-04-17 05:30] LABS: Glucose, Whole Blood 147 mg/dL (60-115)
[2021-04-17 05:43] LABS: Anion Gap 17 (12-20); Blood Urea Nitrogen 47 mg/dL (9-16); Calcium 9.1 mg/dL (8.4-10.2); Carbon Dioxide 16 mmol/L (22-29); Chloride 109 mmol/L (96-108); Creatinine Clr Calc Pharmacy 17.6; Estimated Glomerular Filt Rate 12; Glucose Random 164 mg/dL (60-115); Magnesium 1.8 mg/dL (1.6-2.6); Phosphorus 2.9 mg/dL (2.7-4.5); Potassium 5.3 mmol/L (3.3-5.1); Sodium 137 mmol/L (135-145)
[2021-04-17 06:09] LABS: CDiff Gene PCR NEGATIVE (Negative)
[2021-04-17] MEDS: Pantoprazole Sodium 40 MG/10 ML VIAL IVPUSH (06:29)
--- NOTE | 2021-04-17 07:22 | MHC.CDI.CONC ---
CDI Concurrent Query Documentation Clarification: PHYSICIAN'S DOCUMENTATION REQUEST Date of Query: 04/17/21 0724 Patient Name: Deirdre Galeas Admit Date: 03/18/21 Dear Doctor, A review of the medical record indicates additional documentation may be needed. Please review below and update the documentation accordingly. Clinical Indicators: The following clinical information was noted in the record: Risk Factors/Clinical Indicators/Treatments ICU note 04/15 - CKD 4-5 Nephrology consult note 04/15 - CKD 4 BSL SCr 2.5-3.0 ICU note 04/16 - CKD 4-5 previously declined HD Please clarify which of the following accurately represents the patient's renal status: Specifics to stages: Acute renal failure on Chronic Kidney Disease (CKD) Stage CKD, please provide stage - see criteria ESRD - CKD V now requiring permanent dialysis and/or transplant Other (please specify) Unable to determine Criteria for JOAN* Stages of Chronic Kidney Disease* 1. Increase in serum creatinine by ? 0.3 mg/dL Level Description GFR (?26.5 micromol/L) within 48 hours, or G1 Normal or High > 90 2. Increase in serum creatinine to ?1.5 times baseline, G2 Mildly decreased 60 ? 89 which is known or presumed to have occurred within 7 days, or G3a Mildly to moderately decreased 45 ? 59 3. Urine volume <0.5 mL/kg/hour for six hours G3b Moderately to severely decreased 30 - 44 G4 Severely decreased 15 ? 29 G5 Kidney failure < 15 *Source: Kidney Disease: Improving Global Outcomes (KDIGO) 2012 Use of terms such as suspected, likely, concern for, or probable (associated with a specific diagnosis that is being evaluated, monitored, or treated as if it exists) are acceptable and can be coded in the inpatient setting, when documented at the time of discharge. Thank you, Brandy Castro [facility], CDIS Extension: [phone] Please use your independent medical judgment in providing your response. THIS QUERY IS PART OF THE PERMANENT MEDICAL RECORD Provider Response: CKD Stage 5
[2021-04-17] MEDS: Piperacillin Sodium/Tazobactam 2.25 GM in 0.9 % Sodium Chloride 50 ML IV ×3 (08:09→23:18)
[2021-04-17] MEDS: Cholestyramine (With Sugar) 4 GM POWD.PACK 8 GM PO ×2 (08:09→20:21)
[2021-04-17] MEDS: Sodium Zirconium Cyclosilicate 10 GM POWD.PACK PO ×2 (08:09→15:08)
[2021-04-17] MEDS: Chlorhexidine Gluc Oral Rinse 15 ML MOUTHWASH BUCCAL ×3 (08:09→20:21)
[2021-04-17] MEDS: vancomycin HCL 1,000 MG in 0.9 % Sodium Chloride 250 ML 270 MG IV (08:09)
[2021-04-17] MEDS: clonazePAM 0.5 MG TABLET PO ×3 (08:10→20:21)
[2021-04-17] MEDS: Famotidine 20 MG TABLET PO (08:10)
--- NOTE | 2021-04-17 09:53 | MHC.SLORD ---
Speech Language Pathology Order Status: Received order for [employer] consult to provide patient with communication boards and work on functional communication. [employer] spoke with VICE [employer] this morning- Patient is not yet ready for swallow evaluation. Swallow evaluation on hold- Patient will be seen for speech.
[2021-04-17] MEDS: Furosemide 100 MG/10 ML VIAL IVPUSH (10:07)
[2021-04-17] MEDS: dexmedeTOMIDidine HCL/NS 400 MCG/100 ML INFUS..BTL 9.52 MCG IVCONT (10:08)
[2021-04-17] MEDS: Furosemide 200 MG in 0.9 % Sodium Chloride 80 ML IVCONT (10:16)
--- NOTE | 2021-04-17 10:21 | HE.PHANOTE ---
Addendum entered by Eron Irizarry RPh 04/18/21 10:32: Trough today was 20.2. Vancomycin dosing pending tomorrow's trough @0500. Patient may benefit from 1g q48h. Order is in and on hold pending trough. Sputum growing GNR as well as urine. Consider deescalating nephrotoxic abx when cultures finalized. Discussed w/ Dr Han Original Note: RE: Vancomycin Per Dr Han, patient getting 1x vancomycin dose with trough tomorrow morning at 0500. He does not anticipate dialysis tomorrow. Thanks Eron Irizarry
--- NOTE | 2021-04-17 10:26 | PM.PNNEP ---
Subjective Subjective Date of Service: 04/17/21 Interval history: Seen and examined, events noted HD cath removed last nite d/t fevere spike UOP 480 past 12 hrs Physical Exam Vital Signs: Vital Signs: Last Vital Signs Temp 99.9 F 04/17/21 10:00 Pulse 114 H 04/17/21 10:00 Resp 21 H 04/17/21 10:00 BP 117/71 04/17/21 10:00 Pulse Ox 100 04/17/21 10:00 BMI result Body Mass Index 37.2 Const: Other: Awake Reintubated 04/09/21 Now on Trach Lungs with Rhonchi Hrt : No gallop or rub Abd Obese Soft NS no asterexis General: comfortable, no acute distress and ill appearing HENMT: Head: Yes normocephalic and Yes atraumatic Neck: Neck: Yes supple Resp: Auscultation: diminished lung sounds Cardio: Rate: regular rate and tachycardic Heart sounds: S1 normal heart sound present and S2 normal heart sound present GI: Palpation (GI): Soft to palpation and no guarding Neuro: Other: Sedated Extrem: General: Yes pedal edema Objective Data Labs CBC & Chem 7: 04/17/21 00:56 04/17/21 05:15 Labs: Laboratory Results - last 24 hr 04/16/21 04/16/21 04/16/21 11:58 17:50 23:38 WBC RBC Hgb Hct MCV MCH MCHC RDW Plt Count MPV Absolute Nucleated RBC Nucleated RBC % (auto) Neutrophils % (Manual) Band Neutrophils % Lymphocytes % (Manual) Monocytes % (Manual) Eosinophils % (Manual) Basophils % (Manual) Metamyelocytes % Myelocytes % Abs Neuts (Manual) Lymphocytes # (Manual) Monocytes # (Manual) Eosinophils # (Manual) Basophils # (Manual) Metamyelocytes # Myelocytes # Platelet Estimate Large Platelets Plt Morphology Comment RBC Morphology Hypochromasia Acanthocytes (Spur) Schistocytes VBG pH VBG pCO2 VBG pO2 VBG HCO3 VBG O2 Saturation VBG Base Excess Sodium Potassium Chloride Carbon Dioxide Anion Gap BUN Creatinine Estim Creat Clear Calc Estimated GFR POC Glucose 129 H 106 135 H Random Glucose Fasting Glucose Lactic Acid Lactic Acid F/U @ 2Hr Calcium Phosphorus Magnesium C. difficile Tox B Gene 04/17/21 04/17/21 04/17/21 00:56 00:56 00:56 WBC 10.3 RBC 2.52 L Hgb 7.1 L Hct 24.5 L MCV 97.2 D MCH 28.2 MCHC 29.0 L RDW 17.6 H Plt Count 335 MPV 9.4 Absolute Nucleated RBC 0.000 Nucleated RBC % (auto) 0.0 Neutrophils % (Manual) 44 L Band Neutrophils % 8 H Lymphocytes % (Manual) 18 L Monocytes % (Manual) 20 H Eosinophils % (Manual) 1 Basophils % (Manual) 1 Metamyelocytes % 6 Myelocytes % 2 Abs Neuts (Manual) 5.4 Lymphocytes # (Manual) 1.9 Monocytes # (Manual) 2.1 H Eosinophils # (Manual) 0.1 Basophils # (Manual) 0.1 Metamyelocytes # 0.6 Myelocytes # 0.2 Platelet Estimate NORMAL Large Platelets PRESENT Plt Morphology Comment NOTED RBC Morphology NOTED Hypochromasia 1+ (5-14) Acanthocytes (Spur) 2+ (3-5) Schistocytes 1+ (0-2) VBG pH VBG pCO2 VBG pO2 VBG HCO3 VBG O2 Saturation VBG Base Excess Sodium 135 Potassium 5.8 H Chloride 109 H Carbon Dioxide 14 L Anion Gap 18 BUN 47 H Creatinine 3.99 H Estim Creat Clear Calc 17.1 Estimated GFR 12 POC Glucose Random Glucose Fasting Glucose 119 H Lactic Acid 2.2 H* Lactic Acid F/U @ 2Hr Calcium 8.9 Phosphorus 2.9 Magnesium C. difficile Tox B Gene 04/17/21 04/17/21 04/17/21 03:10 04:50 05:15 WBC RBC Hgb Hct MCV MCH MCHC RDW Plt Count MPV Absolute Nucleated RBC Nucleated RBC % (auto) Neutrophils % (Manual) Band Neutrophils % Lymphocytes % (Manual) Monocytes % (Manual) Eosinophils % (Manual) Basophils % (Manual) Metamyelocytes % Myelocytes % Abs Neuts (Manual) Lymphocytes # (Manual) Monocytes # (Manual) Eosinophils # (Manual) Basophils # (Manual) Metamyelocytes # Myelocytes # Platelet Estimate Large Platelets Plt Morphology Comment RBC Morphology Hypochromasia Acanthocytes (Spur) Schistocytes VBG pH VBG pCO2 VBG pO2 VBG HCO3 VBG O2 Saturation VBG Base Excess Sodium 137 Potassium 5.3 H Chloride 109 H Carbon Dioxide 16 L Anion Gap 17 BUN 47 H Creatinine 3.96 H Estim Creat Clear Calc 17.6 Estimated GFR 12 POC Glucose Random Glucose 164 H Fasting Glucose Lactic Acid Lactic Acid F/U @ 2Hr 1.8 Calcium 9.1 Phosphorus 2.9 Magnesium 1.8 C. difficile Tox B Gene NEGATIVE 04/17/21 04/17/21 05:16 05:27 WBC RBC Hgb Hct MCV MCH MCHC RDW Plt Count MPV Absolute Nucleated RBC Nucleated RBC % (auto) Neutrophils % (Manual) Band Neutrophils % Lymphocytes % (Manual) Monocytes % (Manual) Eosinophils % (Manual) Basophils % (Manual) Metamyelocytes % Myelocytes % Abs Neuts (Manual) Lymphocytes # (Manual) Monocytes # (Manual) Eosinophils # (Manual) Basophils # (Manual) Metamyelocytes # Myelocytes # Platelet Estimate Large Platelets Plt Morphology Comment RBC Morphology Hypochromasia Acanthocytes (Spur) Schistocytes VBG pH 7.38 VBG pCO2 25 VBG pO2 48 VBG HCO3 15 L VBG O2 Saturation 79.0 VBG Base Excess -8.2 Sodium Potassium Chloride Carbon Dioxide Anion Gap BUN Creatinine Estim Creat Clear Calc Estimated GFR POC Glucose 147 H Random Glucose Fasting Glucose Lactic Acid Lactic Acid F/U @ 2Hr Calcium Phosphorus Magnesium C. difficile Tox B Gene Microbiology Microbiology Results: Microbiology 04/02/21 13:20 Sputum - Suctioned Gram Stain - Final 04/02/21 13:20 Sputum - Suctioned Sputum Culture - Final Methicillin Res Staph Aureus 03/24/21 16:49 Blood - Central Line Blood Culture - Final No growth after 5 days. 03/24/21 16:49 Blood - Central Line Blood Culture - Final No growth after 5 days. 03/24/21 16:50 Urine Catheterized - Witt Catheter Urine Culture - Final No growth. 03/18/21 19:37 Blood - Venous Blood Culture - Final No growth after 5 days. 03/18/21 19:37 Blood - Venous Blood Culture - Final Procedures Date of Service Date of Service: 04/17/21 Assessment & Plan Assessment and plan (1) JOAN (acute kidney injury): Status: Acute Plan JOAN superimposed on CKD CKD 4: BSL SCr 2.5-3.0 Scr incr past 24 hrs but still no abs indication for HD; makng urine and still a hope she may be early phase of recovering enough to come off HD; Pcath on hold for now NOTE 24 hr urine if done corretly is very poor residual renal func with only 200 mg Creat in 24 hrs and UOP only 600 ml Thus highly likely she will need to get back on HD REC: trial of lasix IV 80 and if poor response then 120 IV x 1; trak UOP/renal func; highly likley we will need to r/s HD again tomorrow vs Sat ( will need new temp line for that given recent fever) and then will need Path placement once infection not an issue next week will follow tommy with team Time Spent With Patient Time: Total time spent is greater than 50% in coordination of care (as documented) at patient's floor/unit and/or counseling patient: Progress Note: Quality Stroke Does the patient have a stroke diagnosis?: No
--- NOTE | 2021-04-17 11:28 | P.PNCC_ITS ---
Subjective Subjective Date of Service: 04/17/21 Interval History: Ms. Galeas was admitted to the ICU on Mar 18 with acute respiratory failure. The patient is a 60 yo F with PMHx of COPD on 2 L of supplemental oxygen; lung cancer s/p ?palliative? 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 She?s had COVID vaccine shots x3. The patient lives with her boyfriend (Kodi Mahmood, one of her HCPs, cell ) and her son.? She walks with a cane.? She needs help with dressing and bathing.? Her daughter Anabel, who is the other HCP (cell:? [phone]), tells me that her grandmother (ie Anabel?s grandmother), who?s 80 years old, is in better health than her mother (the patient). The patient was seen in the ED here on Mar 12 c/o SOB.? Dx?d with a COPD exacc.? (No CXR or COVID test done.)? Discharged with a Prednisone script. HISTORY OF PRESENT ILLNESS: The patient was BIBA on 03/18/2021 with SOB and confusion.? ABG showed 7.45/37/124/+2.? CXR showed increased interstitial prominence bilaterally, and a new more focal hazy opacity in the left lower lobe.? COVID-19 test was positive.? BUN/creat 131/2.5 (baseline about 90/3.2).? D-dimer was 2300.? She developed hypoxia refractory to NIV, and required intubation and ventilatory support.? She was admitted to ICU, and treated for COVID.? Noncontrast chest CT showed empysema; small areas of dense opacification in the posterior lower lobes with scattered small areas of groundglass attenuation in the upper lobes; suggestive of multifocal pneumonia and/or sequelae of aspiration.? Venous Duplex scan was negative Peak trop was 2800.? EKG showed no ischemic changes.? Echocardiogram on Mar 19 showed LVEF 30% with marked RWMAs.? The RV size was mod increased, with dec reased fxn.? IVC was dilated w no insp collapse.? RVSP estimate 41mm. ?Last echo 2018 showed normal LV fxn, mild LVH, normal right heart, no valvular pathology.? Thought to have NSTEMI vs demand ischemia. The patient?s FiO2 came down rapidly, and bec of that, COVID pneumonia was felt unlikely and COVID treatment was stopped.? The patient was extubated on 03/21/2021. ?She was sat?ing up to 98% on 2L NC.? The patient?s renal indices cally progressively.? The patient remained significantly encephalopathic, thought likely secondary to uremia.? On Mar 23 she developed respiratory distress and hypoxemia thought secondary to aspiration and/or inability to protect the airway.? The patient was reintubated.? Head CT showed no acute structural lesions to account for her encephalopathy. A temporary dialysis catheter was placed on Mar 24 and she was started on dialysis on March 25.? Repeat echo that day showed near normal LV function, and normal RV size and function.? The IVC was normal sized with near full inspiratory collapse, suggesting that she might be hypovolemic.? Volume resuscitation improved her BP.? New onset atrial flutter was converted to SR with diltiazem. Mar 26 she was putting out black stool, hemoccult positive.? Hb was down 3grams.? She underwent EGD by Dr. Queen.? Found gastritis with erosions that were likely the site of bleeding.? She was tx w bid PPI plus Carafate.? A lung perfusion study showed very low prob of PE. The patient had delayed awakening with sedation holidays.? Finally extubated uneventfully on April 08.? She developed pulmon edema, managed with BiPAP and hemodialysis, but nevertheless, required re-intubation on April 09.? She then underwent tracheostomy and PEG on April 11. Notably, during her month-long stay here, she?s only had two doses of methadone, totaling 100mg.? She?s been on a fentanyl drip during most of her ICU stay.? That was tapered off on April 15, and we?ve been using prn fentanyl and dilaudid. Her mental status has continuously improved over the last week.? On Precedex over the last couple of days she?s been easily and appropriately interactive.? She?s had pressure support trials daily this week. Overnight last night spiked a temp to 102.2, and dropped her BP into 70?s.? Lactate was 2.2.? She was fully cultured, her right IJV temporary dialysis ca theter was pulled, she was volume resuscitated, and started on Levophed and broad-spectrum antibiotics.? Also started her on LoKelma. This morning she?s been on PSV 18/21%/+10 for over four hours so far.? RR 17, Vt 700, Ve 10L, PIP 28cm, ETCO2 24mm, Sat 100%.? On Precedex 0.4ug, she?s fully awake and mostly appropriate, smiling at me.? She mouthed to me that she wants to go home.? I asked her if she was having any pain and she specfically shook her head no. HR 114, BP 120/81.? Levophed is off, she?s on Lasix 5mg/hr and Clonidine 0.1 mg tid.? We started her on a Precedex holiday. No JVD at 20?.? Chest CTA with normal exp phase.? Regular rate and rhythm, tachy, with normal- sounding S1 and S2, with no murmur or gallops.? Abdomen is benign.? Trivial if any edema.? She?s significantly wrinkled.? Neuro:? Severe ICU myopathy, motor strength is barely antigravity, nonfocal.? But stronger today than yesterday.? If I pick her arm up, she?s able to barely hold it up above the bedsheet.? Right IJV site looks fine, and no drainage. U/O for 12 hrs: About 370cc. LABORATORY DATA:? Below.? Bumped her WBC to 10.? K down to 5.3 (from 5.8 overnight).? BUN/Creat up to 47/3.9 (from 37/3.3 yest).? Bicarb is 16 (from 18 yest).? Phos down to 3.2! MICROBIOLOGY:? Pending cultures from early this morning. IMPRESSION: 1. Underlying emphysematous lung disease. 2. Chronic hypoxemic and hypercapnic lung disease.? Blood gasses show signif hypercarbia dating back at least two years. 3. Underlying CKD 4-5. 4. Significant baseline disability 5. Acute respiratory failure on admission, the etiology of which is not clear.? Her admitting CXR was c/w almost anything.? Although her chest CT was not inconsistent with mild COVID pneumonia, the fact that she went from 100% FiO2 to 2L NC (which is her baseline) in a few days is thoroughly inconsistent with severe COVID pneumonia.? PE was eventually ruled out by perfusion scan.? And her hypoxemia was not likely aspiration or bacterial or viral pneumonia, given the relatively clear CXR.? Whatever the cause, three days of Solu-Medrol significantly improved her hypoxemia. 6. Severe critical illness myopathy.? Anticipate resp weaning period of 1-2 months.? Will need prolonged rehab.? PT, OT, and speech eval. 7. Current hypercapnic resp failure.? 2? above. 8. COVID positive on admission, but she didn?t have COVID pneumonia. 9. Biventricular heart failure on echo of Mar 19.? Likely NSTEMI vs demand ischemia.? Her echo pretty much normalized by Mar 25. 10. ?ACS.? Initial troponins had no accompanying EKG changes, but the trop bump on 03/26 had new T wave inversions.? So we added statin and metoprolol. 11. Acute on chronic renal failure stage 5.? Undoubtedly 2? ATN.? U/O last couple days about 400cc/shift.? Holding dialysis for now and watching her renal and metabolic indices.? Checking 24 hr urine creat.? Hold on permcath for now.? Lokelma tid, and started her on a Lasix infusion. 12. Encephalopathy.? Likely metabolic 2? uremia.? Slowly resolved after many HD sessions. 13. ID: Fever and hypotension last night, with positive lactate.? Lactate cleared and certainly doesn?t look septic this morning.? On abx pending cultures. 14. UGI bleed.? 2? stress gastritis.? Now on just omeprazole. 15. Nutrition.? On goal rate Promote.? Using LoKelma to control her potassium. 16. Diarrhea.? Light brown.? CDiff negative.? Started questran. 17. Methadone.? I discussed her methadone maint with the nurses and with Abi Rendon.? From a physiologic point of view, she?s ?detoxed? from methadone.? The question is whether she?s completely detoxed from opiates, and therefore, whether or not she needs methadone anymore. I?m waiting to hear from the family how she got started on the methadone to begin with.? IMO, it?s likely that at this point and onwards, she can just be treated with prn opiates, in the same way as we would manage any other patient with resp failure.? We?ll see how she does, and how much opiates she takes over the next few days. If she requires significant dosing, it might be beneficial to put her on a low dose of met hadone. Critical care time: 75+ min. Critical Care Time (minutes): 75 Physical Exam Vital Signs: Vital Signs: Last Vital Signs Temp 100.4 F 04/17/21 11:00 Pulse 116 H 04/17/21 11:00 Resp 28 H 04/17/21 11:00 BP 115/68 04/17/21 11:00 Pulse Ox 100 04/17/21 11:00 BMI result Body Mass Index 37.2 Objective Data Labs CBC & Chem 7: 04/17/21 00:56 04/17/21 05:15 Labs: Laboratory Results - last 24 hr 04/16/21 04/16/21 04/16/21 11:58 17:50 23:38 WBC RBC Hgb Hct MCV MCH MCHC RDW Plt Count MPV Absolute Nucleated RBC Nucleated RBC % (auto) Neutrophils % (Manual) Band Neutrophils % Lymphocytes % (Manual) Monocytes % (Manual) Eosinophils % (Manual) Basophils % (Manual) Metamyelocytes % Myelocytes % Abs Neuts (Manual) Lymphocytes # (Manual) Monocytes # (Manual) Eosinophils # (Manual) Basophils # (Manual) Metamyelocytes # Myelocytes # Platelet Estimate Large Platelets Plt Morphology Comment RBC Morphology Hypochromasia Acanthocytes (Spur) Schistocytes VBG pH VBG pCO2 VBG pO2 VBG HCO3 VBG O2 Saturation VBG Base Excess Sodium Potassium Chloride Carbon Dioxide Anion Gap BUN Creatinine Estim Creat Clear Calc Estimated GFR POC Glucose 129 H 106 135 H Random Glucose Fasting Glucose Lactic Acid Lactic Acid F/U @ 2Hr Calcium Phosphorus Magnesium C. difficile Tox B Gene 04/17/21 04/17/21 04/17/21 00:56 00:56 00:56 WBC 10.3 RBC 2.52 L Hgb 7.1 L Hct 24.5 L MCV 97.2 D MCH 28.2 MCHC 29.0 L RDW 17.6 H Plt Count 335 MPV 9.4 Absolute Nucleated RBC 0.000 Nucleated RBC % (auto) 0.0 Neutrophils % (Manual) 44 L Band Neutrophils % 8 H Lymphocytes % (Manual) 18 L Monocytes % (Manual) 20 H Eosinophils % (Manual) 1 Basophils % (Manual) 1 Metamyelocytes % 6 Myelocytes % 2 Abs Neuts (Manual) 5.4 Lymphocytes # (Manual) 1.9 Monocytes # (Manual) 2.1 H Eosinophils # (Manual) 0.1 Basophils # (Manual) 0.1 Metamyelocytes # 0.6 Myelocytes # 0.2 Platelet Estimate NORMAL Large Platelets PRESENT Plt Morphology Comment NOTED RBC Morphology NOTED Hypochromasia 1+ (5-14) Acanthocytes (Spur) 2+ (3-5) Schistocytes 1+ (0-2) VBG pH VBG pCO2 VBG pO2 VBG HCO3 VBG O2 Saturation VBG Base Excess Sodium 135 Potassium 5.8 H Chloride 109 H Carbon Dioxide 14 L Anion Gap 18 BUN 47 H Creatinine 3.99 H Estim Creat Clear Calc 17.1 Estimated GFR 12 POC Glucose Random Glucose Fasting Glucose 119 H Lactic Acid 2.2 H* Lactic Acid F/U @ 2Hr Calcium 8.9 Phosphorus 2.9 Magnesium C. difficile Tox B Gene 04/17/21 04/17/21 04/17/21 03:10 04:50 05:15 WBC RBC Hgb Hct MCV MCH MCHC RDW Plt Count MPV Absolute Nucleated RBC Nucleated RBC % (auto) Neutrophils % (Manual) Band Neutrophils % Lymphocytes % (Manual) Monocytes % (Manual) Eosinophils % (Manual) Basophils % (Manual) Metamyelocytes % Myelocytes % Abs Neuts (Manual) Lymphocytes # (Manual) Monocytes # (Manual) Eosinophils # (Manual) Basophils # (Manual) Metamyelocytes # Myelocytes # Platelet Estimate Large Platelets Plt Morphology Comment RBC Morphology Hypochromasia Acanthocytes (Spur) Schistocytes VBG pH VBG pCO2 VBG pO2 VBG HCO3 VBG O2 Saturation VBG Base Excess Sodium 137 Potassium 5.3 H Chloride 109 H Carbon Dioxide 16 L Anion Gap 17 BUN 47 H Creatinine 3.96 H Estim Creat Clear Calc 17.6 Estimated GFR 12 POC Glucose Random Glucose 164 H Fasting Glucose Lactic Acid Lactic Acid F/U @ 2Hr 1.8 Calcium 9.1 Phosphorus 2.9 Magnesium 1.8 C. difficile Tox B Gene NEGATIVE 04/17/21 04/17/21 05:16 05:27 WBC RBC Hgb Hct MCV MCH MCHC RDW Plt Count MPV Absolute Nucleated RBC Nucleated RBC % (auto) Neutrophils % (Manual) Band Neutrophils % Lymphocytes % (Manual) Monocytes % (Manual) Eosinophils % (Manual) Basophils % (Manual) Metamyelocytes % Myelocytes % Abs Neuts (Manual) Lymphocytes # (Manual) Monocytes # (Manual) Eosinophils # (Manual) Basophils # (Manual) Metamyelocytes # Myelocytes # Platelet Estimate Large Platelets Plt Morphology Comment RBC Morphology Hypochromasia Acanthocytes (Spur) Schistocytes VBG pH 7.38 VBG pCO2 25 VBG pO2 48 VBG HCO3 15 L VBG O2 Saturation 79.0 VBG Base Excess -8.2 Sodium Potassium Chloride Carbon Dioxide Anion Gap BUN Creatinine Estim Creat Clear Calc Estimated GFR POC Glucose 147 H Random Glucose Fasting Glucose Lactic Acid Lactic Acid F/U @ 2Hr Calcium Phosphorus Magnesium C. difficile Tox B Gene Microbiology Microbiology Results: Microbiology 04/02/21 13:20 Sputum - Suctioned Gram Stain - Final 04/02/21 13:20 Sputum - Suctioned Sputum Culture - Final Methicillin Res Staph Aureus 03/24/21 16:49 Blood - Central Line Blood Culture - Final No growth after 5 days. 03/24/21 16:49 Blood - Central Line Blood Culture - Final No growth after 5 days. 03/24/21 16:50 Urine Catheterized - Witt Catheter Urine Culture - Final No growth. 03/18/21 19:37 Blood - Venous Blood Culture - Final No growth after 5 days. 03/18/21 19:37 Blood - Venous Blood Culture - Final Quality Stroke Does the patient have a stroke diagnosis?: No VTE Prior VTE?: No VTE Risk Level:: Medical - moderate - high VTE Device Contraindication: Treatment Not Indicated VTE Drug Contraindication: N/A - Med Ordered Critical Care Time Critical Care Time (minutes): 90
[2021-04-17 11:57] LABS: Glucose, Whole Blood 112 mg/dL (60-115)
[2021-04-17] MEDS: Magnesium Sulfate/D5W 1 GM/100 ML PIGGYBACK IV (12:23)
[2021-04-17] MEDS: Acetaminophen 325 MG TABLET 650 MG G-TUBE (15:12)
[2021-04-17] MEDS: cloNIDine HCL 0.1 MG TABLET G-TUBE (15:14)
--- NOTE | 2021-04-17 17:28 | MHC.SP.ADU ---
Referring provider: Dr. Han Reason for Referral: Provide means of communication Type of Treatment: 18103 Speech Gen/Augmentative Device Evaluation Date of Plan of Treatment: 04/17/21 Onset of Symptoms/Illness: 04/17/21 Date Treatment Started: 04/17/21 Medical Diagnosis: Pt is status post tracheostomy, after extended period of hospitalization and intubation. Pt also w/high flow oxygen support, to early for speaking valve placement. Pt requires alt/aug system of communication at this time. Primary Speech Language Diagnosis: R49.9 Unspecified voice Secondary Speech Language Diagnosis: History Pt is a 60 y.o. woman who has had an extensive and eventful hospital stay. She was originally admitted on 03/18 w/acute respiratory failure, and was found to have COVID 19 and required intubation. She was first extubated on 03/21, was at that time diagnosed additionally w/ Renal Failure; then was re-intubated on 03/23 due to hypoxia from aspiration pneumonia. Another attempt to extubate occured on 04/08, w/ reintubation on 04/09 due to hypoxia. Pt was then had surgery for tracheostomy and PEG placement. She was extubated w/ trach on 04/16/21. Pt has critical illness myopathy at this time, due to prolonged period of intubation. Medical History: Other: COPD, HX LUng CA, polysubstance abuse on methadone, SZ disorder, CKD Stage 4-5, CHF. Medication List: Please see chart Recent Hospitalizations: No Respiratory Needs: Trach Collar T-Piece Patient Orientation: Alert & Oriented x 4 Social History: Employment Status: Highest level of education obtained: Current Living Situation: Lives in private home w/ . Has children involved in her care. Assistive Devices in use: Comment: Past Speech Language Therapy: UNK Other Therapies Seen in Current Calendar Year: Other: UNK. Currently being seen by PT/OT Swallowing History: Dysphagia Specific: Comments: PT currently receiving nutrition by PEG. Due to recent Tracheostomy, not appropriate at this time for swallow evaluation. Pre-eval Risk for Aspiration: Medically Fragile History of Pneumonia Hx of Recent Extubation Tracheostomy Pre-evaluation Dietary Consistencies: NPO Pre-eval Liquid Intake: Pre-eval Medication Intake: Reported Speech, Language, Cognition difficulties: Speaking Comments: Pt currently unable to communicate verbally due to recent tracheostomy w/ current need for O2 at high flow. Additionally Pt has limited ability to move limbs, hands etc. due to muscle wasting from prolonged intubation. Quality of Life: Guarded Patient Stated Goal of Speech-Language Therapy: Short term provision of augmentative/alternative communication system Assessment Speech Production: Nonverbal Clinical Impression: Impaired Observations: Pt is attempting to communicate verbally by speaking. As effort to speak is without phonation, this form of communication at this time requires lip reading. Pt is speaking as they might normally if they had vocal support, and it is very difficulty to lip read what she is saying. Pt was cued to slow speech and over pronounce intended words, however Pt evidenced difficulty following this type of direction and continued to attempt to speak. Pt was presented w/ a basic communication board to communicate needs and y/n responses. Pt currently has very limited movement of upper extremities. Pt's hand was placed proximal to y/n responses, and pt was able to minimally indicate by pointing, moving hand to selection of y/n. Pt's hand was also placed proximal to three choices Hungry/Thirsty/Pain, but Pt had difficulty pointing to indicate discrimination of these choices. Eye gaze to select trials was attempted, however it was not clear or reliable form at this time. Informal Voice Assessment: Voice Loudness: Voice Nasal Resonance: Voice Oral Resonance: Voice Phonatory-based Quality: Loss of Voice Voice Pitch: Voice Other Observations: Clinical Impression: Impaired Clinicial Observations: Pt w/aphonia due to tracheostomy. Pt's current s/p tracheostomy and need for high flow oxygen are counter indicators to valve placement at this time. Augmentative and Alternative Communication: Impaired Observations: Pt is status post tracheostomy after extended period on ventilator. 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 Pt additionally has very limited movement of upper extremities due to severe muscle wasting from extended period of intubation. Pt is attempting to communicate by speaking, speech at this time requires lip reading. Pt requires cuing to slow and over pronounce words to facilitate lip reading, and on todays session, Pt was having difficulty following this cuing. Pt was given communication board to communicate basic needs and y/n responses. On evaluation, at this time, communication board has limited use to to limited movement of upper extremeties (Pt cannot initiate pointing, can only indicate y/n choice if hand is positioned in close proximity to choice). Pt will need ongoing assessment and specific training/cuing for using exaggerated speech in order for others to lip read, and for appropriate basic augmentative communication system (e.g. continue to assess mobility issues needed for AC). Impressions and Recommendations Summary: Impact on Daily Function/Activity Limitations: Daily Activities: Severe Interpersonal Interactions: Severe Education: Severe Employment: Severe Community: Severe Prognosis for Improvement: Guarded Comment: Recommendation for Speech Therapy: Inpatient Speech Therapy Frequency/Duration: M-F while inpatient Date Range for Service Requested: Time to Reassess: PRN Retirement Goals: Short Term Goals: Goal # : Goal Status: Goal# : Goal Status: Goal # : Goal Status: Goal # : Goal Status: Recommended Referrals to be Discussed with Primary Care Provider: Patient Education: Completed: Yes Patient/Caregiver Education: Comments/Barriers to Learning: Audio Production Instructor Clinican/Clinical Fellow: No Supervisory Statement: N/A Speech Language Pathologist: Juju Shanks M.A., CCC-[employer]OT[employer] MACHINERY INSTRUCTOR
[2021-04-17 17:42] LABS: Glucose, Whole Blood 92 mg/dL (60-115)
[2021-04-17 20:21] LABS: Urea, 24 Hr Urine 1 g/24 h (6-17)
[2021-04-17] MEDS: cloNIDine HCL 0.1 MG TABLET PO (23:14)
[2021-04-17] MEDS: Metoprolol Tartrate 12.5 MG HALFTAB PO (23:14)
[2021-04-17 23:17] LABS: Glucose, Whole Blood 110 mg/dL (60-115)
[2021-04-18] VITALS (34 sets, daily range): BP systolic 105–158; BP diastolic 56–85; PULSE 95–125; RESP 11–34; TEMP 34–38.7; O2SAT 96–100; BMI 36.8
[2021-04-18] MEDS: Sodium Zirconium Cyclosilicate 10 GM POWD.PACK PO ×4 (01:55→22:43)
[2021-04-18] MEDS: Heparin Sodium,Porcine 5,000 UNIT/ML VIAL 5000 UNIT SUBCUT ×3 (02:22→20:05)
[2021-04-18] MEDS: Acetaminophen Oral Liquid 650 MG/20.3 ML SOLUTION PO (02:25)
--- NOTE | 2021-04-18 03:24 | PC.NURSE ---
Initial contact, pt is vented through the trach with the following settings, R18, V420, 21% peep of 10. LS are clear in the upper lobes diminished in the lower lobes. pt does tolerate vent with some precedex at a dose of 0.2. Pt does require frequent suctioning that yields a small amount of whitish sputum. Patient is non-verbal but does follow simple commands. it is difficult to assess orientation due to non-verbal status but patient does try to mouth sentences but it is difficult to decipher what is being said. Pupils perrl, calm cooperative. Pt has generalized edema , most notable in her hands with +4 and generalized edema at +3 non-pitting. Pt has also been tachy in the 110's to 130's. Pt has PEG tube with minimal residual and promote running at 60 and tolerating well. Pt does have light brown liquid stool in the rectal tube, minimal to no output as of 0330. Pt has a cota with good output approximately 100-150ml/hr. Pt is on lasix at 5mg/hr. Pt has bilateral heel DTI's and 2 stage 2 on coccyx and buttock, covered with foam dressing clean dry intact. Pt did have a Tmax of 101.7 after 650mg of tylenol. Ice was placed on patient in groin and armpits.
[2021-04-18] MEDS: Metoprolol Tartrate 5 MG/5 ML VIAL 2.5 MG IVPUSH (05:06)
[2021-04-18] MEDS: dexmedeTOMIDidine HCL/NS 400 MCG/100 ML INFUS..BTL IVCONT (05:06)
[2021-04-18 05:49] LABS: Hematocrit 22.5 % (37.0-47.0); Mean Corpuscular HGB Conc 30.2 g/dl (31.0-35.0); Mean Corpuscular Hemoglobin 27.5 pg (27.0-33.0); Mean Corpuscular Volume 91.1 fL (80.0-98.0); Mean Platelet Volume 9.2 fL (9.4-12.3); Platelet Count 376 X10*3/uL (160-400); Red Blood Count 2.47 X10*6/uL (4.20-5.50); Red Cell Distribution Width 17.3 % (11.0-16.0); White Blood Count 11.5 X10*3/uL (4.8-10.8)
[2021-04-18 05:53] LABS: Hemoglobin 6.8 g/dl (12.0-16.0)
[2021-04-18 06:03] LABS: Glucose, Whole Blood 110 mg/dL (60-115)
[2021-04-18] MEDS: cloNIDine HCL 0.1 MG TABLET PO (06:08)
[2021-04-18] MEDS: Pantoprazole Sodium 40 MG/10 ML VIAL IVPUSH (06:08)
[2021-04-18 06:10] LABS: Vancomycin Random 20.2 mcg/mL (15-20)
[2021-04-18 06:22] LABS: Anion Gap 18 (12-20); Blood Urea Nitrogen 57 mg/dL (9-16); C Reactive Protein 7.73 mg/dL (< or = 0.50); Calcium 9.1 mg/dL (8.4-10.2); Carbon Dioxide 16 mmol/L (22-29); Chloride 110 mmol/L (96-108); Creatinine Clr Calc Pharmacy 16.4; Estimated Glomerular Filt Rate 11; Glucose Random 105 mg/dL (60-115); Magnesium 2.1 mg/dL (1.6-2.6); Phosphorus 2.9 mg/dL (2.7-4.5); Potassium 4.9 mmol/L (3.3-5.1); Sodium 139 mmol/L (135-145)
[2021-04-18 07:32] LABS: VBG Base Excess -8.1 mmol/L; VBG HCO3 15 mmol/L (22-26); VBG pCO2 23 mmHg; VBG pO2 47 mmHg
[2021-04-18 07:35] LABS: Venous Blood Gas Refer to POC result
[2021-04-18] MEDS: Metoprolol Tartrate 12.5 MG HALFTAB PO (08:09)
[2021-04-18] MEDS: Chlorhexidine Gluc Oral Rinse 15 ML MOUTHWASH BUCCAL ×3 (08:09→20:04)
[2021-04-18] MEDS: Famotidine 20 MG TABLET PO (08:09)
[2021-04-18] MEDS: Piperacillin Sodium/Tazobactam 2.25 GM in 0.9 % Sodium Chloride 50 ML IV ×2 (08:09→15:03)
[2021-04-18] MEDS: Cholestyramine (With Sugar) 4 GM POWD.PACK 8 GM PO ×2 (08:09→20:05)
[2021-04-18] MEDS: clonazePAM 0.5 MG TABLET PO ×3 (08:09→20:05)
[2021-04-18 08:10] LABS: Procalcitonin 1.53 ng/mL
--- NOTE | 2021-04-18 09:02 | ECG_ITS ---
Test Reason : ? RHYTHM CHANGE Blood Pressure : / mmHG Vent. Rate : 114 BPM Atrial Rate : 114 BPM P-R Int : 184 ms QRS Dur : 074 ms QT Int : 334 ms P-R-T Axes : 080 056 145 degrees QTc Int : 460 ms Sinus tachycardia with Premature atrial complexes T wave abnormality, consider anterolateral ischemia Abnormal ECG When compared with ECG of 15-APR-2021 09:43, Premature atrial complexes are now Present Referred By: Deacon Han Electronically Signed By:THERESA BRENNAN MD
[2021-04-18] MEDS: Furosemide 200 MG in 0.9 % Sodium Chloride 80 ML IVCONT (09:58)
--- NOTE | 2021-04-18 10:16 | MHC.CLN ---
F/U PT WITH INCREASED NUTRITION RISK R/T PRESSURE INJURIES DISCUSSED AT ROUNDS WITH PT RECEIVING PROMOTE AT MAX GOAL RATE 60ML/HR WITH 120ML FWF Q 6HRS PROVIDES 1440KCALS (21KCALS/KG BASED ON CMW), 90G PROTEIN (1.3G/KG), 1688CC TOTAL FREE WATER FROM FORMULA AND FLUSHES (25ML/KG) PT CONTINUES WITH HD; MONITOR RENAL INDICES CLOSELY WITH INCREASE IN PO PROTEIN ADJUST FREE WATER FLUSHES NEEDED R/T FEVERS AND LASIX DRIP PER NSG CONTINUE TO MONITOR TOLERANCE, RESIDUALS AND LYTES
[2021-04-18] MEDS: Metoprolol Tartrate 25 MG TABLET PO ×2 (12:53→20:05)
--- NOTE | 2021-04-18 15:00 | P.PNNP_ITS ---
Subjective Subjective Date of Service: 04/18/21 Interval history: Seen and examined,events noted Physical Exam Vital Signs: Vital Signs: Last Vital Signs Temp 100.4 F 04/18/21 14:00 Pulse 112 H 04/18/21 14:22 Resp 11 L 04/18/21 14:00 BP 150/85 H 04/18/21 14:22 Pulse Ox 99 04/18/21 14:22 BMI result Body Mass Index 36.8 Const: Other: Awake Reintubated 04/09/21 Now on Trach Lungs with Rhonchi Hrt : No gallop or rub Abd Obese Soft NS no asterexis General: comfortable, no acute distress and ill appearing HENMT: Head: Yes normocephalic and Yes atraumatic Neck: Neck: Yes supple Resp: Auscultation: diminished lung sounds Cardio: Rate: regular rate and tachycardic Heart sounds: S1 normal heart sound present and S2 normal heart sound present GI: Palpation (GI): Soft to palpation and no guarding Neuro: Other: Sedated Extrem: General: Yes pedal edema Objective Data Labs CBC & Chem 7: 04/18/21 05:20 04/18/21 05:20 Labs: Laboratory Results - last 24 hr 04/16/21 04/17/21 04/17/21 05:30 17:36 23:13 WBC RBC Hgb Hct MCV MCH MCHC RDW Plt Count MPV Absolute Nucleated RBC Nucleated RBC % (auto) VBG pH VBG pCO2 VBG pO2 VBG HCO3 VBG O2 Saturation VBG Base Excess Sodium Potassium Chloride Carbon Dioxide Anion Gap BUN Creatinine Estim Creat Clear Calc Estimated GFR POC Glucose 92 110 Random Glucose Calcium Phosphorus Magnesium C-Reactive Protein Procalcitonin Urine Urea 24 Hr 1 L Random Vancomycin Blood Type Antibody Screen Crossmatch ([facility]) 04/18/21 04/18/21 04/18/21 05:20 05:20 05:20 WBC 11.5 H RBC 2.47 L Hgb 6.8 L* Hct 22.5 L MCV 91.1 D MCH 27.5 MCHC 30.2 L RDW 17.3 H Plt Count 376 MPV 9.2 L Absolute Nucleated RBC 0.000 Nucleated RBC % (auto) 0.0 VBG pH VBG pCO2 VBG pO2 VBG HCO3 VBG O2 Saturation VBG Base Excess Sodium 139 Potassium 4.9 Chloride 110 H Carbon Dioxide 16 L Anion Gap 18 BUN 57 H Creatinine 4.22 H* Estim Creat Clear Calc 16.4 Estimated GFR 11 POC Glucose Random Glucose 105 Calcium 9.1 Phosphorus 2.9 Magnesium 2.1 C-Reactive Protein 7.73 H Procalcitonin Urine Urea 24 Hr Random Vancomycin 20.2 H Blood Type Antibody Screen Crossmatch ([facility]) 04/18/21 04/18/21 04/18/21 05:20 05:23 06:00 WBC RBC Hgb Hct MCV MCH MCHC RDW Plt Count MPV Absolute Nucleated RBC Nucleated RBC % (auto) VBG pH 7.40 VBG pCO2 23 VBG pO2 47 VBG HCO3 15 L VBG O2 Saturation 80.0 VBG Base Excess -8.1 Sodium Potassium Chloride Carbon Dioxide Anion Gap BUN Creatinine Estim Creat Clear Calc Estimated GFR POC Glucose 110 Random Glucose Calcium Phosphorus Magnesium C-Reactive Protein Procalcitonin 1.53 Urine Urea 24 Hr Random Vancomycin Blood Type Antibody Screen Crossmatch ([facility]) 04/18/21 12:45 WBC RBC Hgb Hct MCV MCH MCHC RDW Plt Count MPV Absolute Nucleated RBC Nucleated RBC % (auto) VBG pH VBG pCO2 VBG pO2 VBG HCO3 VBG O2 Saturation VBG Base Excess Sodium Potassium Chloride Carbon Dioxide Anion Gap BUN Creatinine Estim Creat Clear Calc Estimated GFR POC Glucose Random Glucose Calcium Phosphorus Magnesium C-Reactive Protein Procalcitonin Urine Urea 24 Hr Random Vancomycin Blood Type O Negative Antibody Screen NEGATIVE Crossmatch ([facility]) See Detail Microbiology Microbiology Results: Microbiology 04/17/21 00:40 Urine Catheterized - Witt Catheter Urine Culture - Prelimin wilver Gram negative jose miguel 04/17/21 08:27 Sputum - Suctioned Gram Stain - Final 04/17/21 08:27 Sputum - Suctioned Sputum Culture - Preliminary Gram negative jose miguel 04/17/21 00:56 Blood - Venous Blood Culture - Preliminary No growth after 24 hours. 04/17/21 01:00 Blood - Venous Blood Culture - Preliminary No growth after 24 hours. 04/02/21 13:20 Sputum - Suctioned Gram Stain - Final 04/02/21 13:20 Sputum - Suctioned Sputum Culture - Final Methicillin Res Staph Aureus 03/24/21 16:49 Blood - Central Line Blood Culture - Final No growth after 5 days. 03/24/21 16:49 Blood - Central Line Blood Culture - Final No growth after 5 days. 03/24/21 16:50 Urine Catheterized - Witt Catheter Urine Culture - Final No growth. 03/18/21 19:37 Blood - Venous Blood Culture - Final No growth after 5 days. 03/18/21 19:37 Blood - Venous Blood Culture - Final Procedures Date of Service Date of Service: 04/18/21 Assessment & Plan Assessment and plan (1) JOAN (acute kidney injury): Status: Acute Plan JOAN superimposed on CKD CKD 4: BSL SCr 2.5-3.0 Scr incr past 24 hrs rate of incr is tania and incr UOP; but still no abs indication for HD; makng urine and still a hope she may be early phase of recovering enough to come off HD; Pcath on hold for now REC: cont trial of lasix; trak UOP/renal func; angela we will need to r/s HD in next several days ( will need new temp line for that given recent fever) and then will need Path placement once infection not an issue next week if cont HD needed will follow tommy with team Time Spent With Patient Time: Total time spent is greater than 50% in coordination of care (as documented) at patient's floor/unit and/or counseling patient: Progress Note: Quality Stroke Does the patient have a stroke diagnosis?: No
[2021-04-18] MEDS: cloNIDine HCL 0.2 MG TABLET PO ×2 (15:03→22:42)
--- NOTE | 2021-04-18 16:06 | P.PNCC_ITS ---
Subjective Subjective Date of Service: 04/18/21 Interval History: Ms. Galeas was admitted to the ICU on Mar 18 with acute respiratory failure. The patient is a 60 yo F with PMHx of COPD on 2 L of supplemental oxygen; lung cancer s/p ?palliative? 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 She?s had COVID vaccine shots x3. The patient lives with her boyfriend (Kodi Mahmood, one of her HCPs, cell ) and her son.? She walks with a cane.? She needs help with dressing and bathing.? Her daughter Anabel, who is the other HCP (cell:? [phone]), tells me that her grandmother (ie Anabel?s grandmother), who?s 80 years old, is in better health than her mother (the patient). The patient was seen in the ED here on Mar 12 c/o SOB.? Dx?d with a COPD exacc.? (No CXR or COVID test done.)? Discharged with a Prednisone script. HISTORY OF PRESENT ILLNESS: The patient was BIBA on 03/18/2021 with SOB and confusion.? ABG showed 7.45/37/124/+2.? CXR showed increased interstitial prominence bilaterally, and a new more focal hazy opacity in the left lower lobe.? COVID-19 test was positive.? BUN/creat 131/2.5 (baseline about 90/3.2).? D-dimer was 2300.? She developed hypoxia refractory to NIV, and required intubation and ventilatory support.? She was admitted to ICU, and treated for COVID.? Noncontrast chest CT showed empysema; small areas of dense opacification in the posterior lower lobes with scattered small areas of groundglass attenuation in the upper lobes; suggestive of multifocal pneumonia and/or sequelae of aspiration.? Venous Duplex scan was negative Peak trop was 2800.? EKG showed no ischemic changes.? Echocardiogram on Mar 19 showed LVEF 30% with marked RWMAs.? The RV size was mod increased, with dec reased fxn.? IVC was dilated w no insp collapse.? RVSP estimate 41mm. ?Last echo 2018 showed normal LV fxn, mild LVH, normal right heart, no valvular pathology.? Thought to have NSTEMI vs demand ischemia. The patient?s FiO2 came down rapidly, and bec of that, COVID pneumonia was felt unlikely and COVID treatment was stopped.? The patient was extubated on 03/21/2021. ?She was sat?ing up to 98% on 2L NC.? The patient?s renal indices cally progressively.? The patient remained significantly encephalopathic, thought likely secondary to uremia.? On Mar 23 she developed respiratory distress and hypoxemia thought secondary to aspiration and/or inability to protect the airway.? The patient was reintubated.? Head CT showed no acute structural lesions to account for her encephalopathy. A temporary dialysis catheter was placed on Mar 24 and she was started on dialysis on March 25.? Repeat echo that day showed near normal LV function, and normal RV size and function.? The IVC was normal sized with near full inspiratory collapse, suggesting that she might be hypovolemic.? Volume resuscitation improved her BP.? New onset atrial flutter was converted to SR with diltiazem. Mar 26 she was putting out black stool, hemoccult positive.? Hb was down 3grams.? She underwent EGD by Dr. Queen.? Found gastritis with erosions that were likely the site of bleeding.? She was tx w bid PPI plus Carafate.? A lung perfusion study showed very low prob of PE. The patient had delayed awakening with sedation holidays.? Finally extubated uneventfully on April 08.? She developed pulmon edema, managed with BiPAP and hemodialysis, but nevertheless, required re-intubation on April 09.? She then underwent tracheostomy and PEG on April 11. Notably, during her month-long stay here, she?s only had two doses of methadone, totaling 100mg.? She?s been on a fentanyl drip during most of her ICU stay.? That was tapered off on April 15, and we?ve been using prn fentanyl and dilaudid since then. Her mental status has continuously improved over the last week.? On Precedex over the last couple of days she?s been easily and appropriately interactive.? She?s had pressure support trials daily this week.? We?ve been tapering the Precedex, and we?ve added clonidine and Klonopin to help with that.? The patient has repetitively denied pain. On April 16, she spiked a temp to 102.2, and dropped her BP into 70?s.? Lactate was 2.2.? She was fully cultured, her right IJV temporary dialysis catheter was pulled, she was volume resuscitated, and started on Levophed and broad-spectrum antibiotics.? Also started on LoKelma. Last HD was April 14.? Her u/o has been picking up.? Creat is rising slowly since then, but phos is staying low, potassium is controlled with LoKelma, and her u/o is responding to Lasix. Today she?s been on PSV 18/21%/+10 since the morning, for over 8 hours so far.? While sleeping, RR 12, Vt 700, Ve 9L, PIP 28cm, ETCO2 25mm, Sat 99%.? She?s been off Precedex all day.? She?s on clonidine 0.2ug q8h, and Klonopin 0.5mg tid.? Earlier today she was fully awake, interactive, and smiling with us when I was in the room talking with her with her signif other, James.? She denies pain.? HR 106, BP 131/74.? Levophed is off, and she?s on Lasix 5mg/hr. No JVD at 20?.? The former right IJV dialysis catheter site looks clean.? Chest CTA with normal exp phase.? Regular rate and rhythm, tachy, with normal-sounding S1 and S2, with no murmur or gallops.? Abdomen is benign.? Trivial if any edema.? She?s significantly wrinkled.? Neuro:? Severe ICU myopathy, motor strength is barely antigravity, nonfocal. U/O overnite > 1 Liter. LABORATORY DATA:? Below.? Notably, WBC up to 11.? Hb down to 6.8.? K down to 4.9 on the Lokelma.? BUN/Creat up to 57/4.2 (from 47/3.9 yest).? Bicarb steady at 16.? Phos down to 2.9! MICROBIOLOGY:? Sputum GS shows 2+ polys, mixed esperanza, growing 2+ GNR.? Urine cx growing > 100K GNR, but no u/a sent.? Will resend.? BCs negative. IMPRESSION: 1. Underlying emphysematous lung disease. 2. Chronic hypoxemic and hypercapnic lung disease.? Blood gasses show signif hypercarbia dating back at least two years. 3. Underlying CKD 4-5. 4. Significant baseline disability 5. Acute respiratory failure on admission, the etiology of which is not clear.? Her admitting CXR was c/w almost anything.? Although her chest CT was not inconsistent with mild COVID pneumonia, the fact that she went from 100% FiO2 to 2L NC (which is her baseline) in a few days is thoroughly inconsistent with severe COVID pneumonia.? PE was eventually ruled out by perfusion scan.? And her hypoxemia was not likely aspiration or bacterial or viral pneumonia, given the relatively clear CXR.? Whatever the cause, three days of Solu-Medrol significantly improved her hypoxemia. 6. COVID positive on admission, but she didn?t have COVID pneumonia. 7. Severe critical illness myopathy.? Anticipate respiratory weaning period of 1-2 months.? Will need prolonged rehab.? PT, OT, and speech eval working. 8. Current hypercapnic resp failure.? 2? above. 9. Biventricular heart failure on echo of Mar 19.? Likely NSTEMI vs demand ischemia.? Her echo pretty much normalized by Mar 25. 10. ?ACS.? Initial troponins had no accompanying EKG changes, but the trop bump on 03/26 had new T wave inversions.? So we added statin and metoprolol. 11. Acute on chronic renal failure stage 5.? Undoubtedly 2? ATN.? U/O last couple days picking up and we?re holding dialysis for now, but her renal indices are climbing.? Anticipate that we?ll put a permcath in on Wednesday.? Continue Lokelma and Lasix drip.? I?ll cut the Lasix drip to 3mg/hr. 12. Encephalopathy.? Likely metabolic 2? uremia.? Slowly resolved after many HD sessions. 13. ID: Fever and hypotension on April 16, with positive lactate.? Lactate cleared easily.? Source of infection is not clear.? Can?t be the lungs given that Sat is 99% on room air.? Could be the urine.? I?ll send a new u/a and culture.? For now, continue on the Zosyn and vanco. 14. UGI bleed.? 2? stress gastritis.? Now on just omeprazole. 15. Anemia.? Stool is brown.? Likely usual ICU anemia.? Will transfuse to keep her Hb > 7, given the poss of ACS. 16. Nutrition.? On goal rate Promote.? Using LoKelma to control her potassium. 17. Diarrhea.? Light brown.? CDiff negative.? Started questran.? Improving. 18. Methadone.? I discussed ?ather methadone maint with the nurses and with Abi Rendon.? From a physiologic point of view, she?s ?detoxed? from methadone.? The question is whether she?s completely detoxed from opiates, and therefore, whether or not she needs methadone anymore. ?I spoke with the patient?s daughter about how she got started on the methadone to begin with.? She has no knowledge that the patient started out in pain and was using prescription opiates.? As far as she knows, her mother just became addicted.? She thinks her mother was using heroin. ? IMO, it?s likely that at this point and onwards, Deirdre can just be treated with prn opiates, in the same way as we would manage any other patient with resp failure.? We?ll see how she does, and how much opiates she takes over the next few days.? If she requires significant dosing, that could be a reason to put her on a low dose of methadone.? Otherwise, there?s no reason to consign her to a lifetime of methadone maint. Critical Care Time (minutes): 60 Physical Exam Vital Signs: Vital Signs: Last Vital Signs Temp 99.9 F 04/18/21 15:12 Pulse 110 H 04/18/21 15:12 Resp 17 04/18/21 15:12 BP 158/81 H 04/18/21 15:12 Pulse Ox 99 04/18/21 15:00 BMI result Body Mass Index 36.8 Objective Data Labs CBC & Chem 7: 04/18/21 05:20 04/18/21 05:20 Labs: Laboratory Results - last 24 hr 04/16/21 04/17/21 04/17/21 05:30 17:36 23:13 WBC RBC Hgb Hct MCV MCH MCHC RDW Plt Count MPV Absolute Nucleated RBC Nucleated RBC % (auto) VBG pH VBG pCO2 VBG pO2 VBG HCO3 VBG O2 Saturation VBG Base Excess Sodium Potassium Chloride Carbon Dioxide Anion Gap BUN Creatinine Estim Creat Clear Calc Estimated GFR POC Glucose 92 110 Random Glucose Calcium Phosphorus Magnesium C-Reactive Protein Procalcitonin Urine Urea 24 Hr 1 L Random Vancomycin Blood Type Antibody Screen Crossmatch ([facility]) 04/18/21 04/18/21 04/18/21 05:20 05:20 05:20 WBC 11.5 H RBC 2.47 L Hgb 6.8 L* Hct 22.5 L MCV 91.1 D MCH 27.5 MCHC 30.2 L RDW 17.3 H Plt Count 376 MPV 9.2 L Absolute Nucleated RBC 0.000 Nucleated RBC % (auto) 0.0 VBG pH VBG pCO2 VBG pO2 VBG HCO3 VBG O2 Saturation VBG Base Excess Sodium 139 Potassium 4.9 Chloride 110 H Carbon Dioxide 16 L Anion Gap 18 BUN 57 H Creatinine 4.22 H* Estim Creat Clear Calc 16.4 Estimated GFR 11 POC Glucose Random Glucose 105 Calcium 9.1 Phosphorus 2.9 Magnesium 2.1 C-Reactive Protein 7.73 H Procalcitonin Urine Urea 24 Hr Random Vancomycin 20.2 H Blood Type Antibody Screen Crossmatch ([facility]) 04/18/21 04/18/21 04/18/21 05:20 05:23 06:00 WBC RBC Hgb Hct MCV MCH MCHC RDW Plt Count MPV Absolute Nucleated RBC Nucleated RBC % (auto) VBG pH 7.40 VBG pCO2 23 VBG pO2 47 VBG HCO3 15 L VBG O2 Saturation 80.0 VBG Base Excess -8.1 Sodium Potassium Chloride Carbon Dioxide Anion Gap BUN Creatinine Estim Creat Clear Calc Estimated GFR POC Glucose 110 Random Glucose Calcium Phosphorus Magnesium C-Reactive Protein Procalcitonin 1.53 Urine Urea 24 Hr Random Vancomycin Blood Type Antibody Screen Crossmatch ([facility]) 04/18/21 12:45 WBC RBC Hgb Hct MCV MCH MCHC RDW Plt Count MPV Absolute Nucleated RBC Nucleated RBC % (auto) VBG pH VBG pCO2 VBG pO2 VBG HCO3 VBG O2 Saturation VBG Base Excess Sodium Potassium Chloride Carbon Dioxide Anion Gap BUN Creatinine Estim Creat Clear Calc Estimated GFR POC Glucose Random Glucose Calcium Phosphorus Magnesium C-Reactive Protein Procalcitonin Urine Urea 24 Hr Random Vancomycin Blood Type O Negative Antibody Screen NEGATIVE Crossmatch ([facility]) See Detail Microbiology Microbiology Results: Microbiology 04/17/21 00:40 Urine Catheterized - Witt Catheter Urine Culture - Preliminary Gram negative jose miguel 04/17/21 08:27 Sputum - Suctioned Gram Stain - Final 04/17/21 08:27 Sputum - Suctioned Sputum Culture - Preliminary Gram negative jose miguel 04/17/21 00:56 Blood - Venous Blood Culture - Preliminary No growth after 24 hours. 04/17/21 01:00 Blood - Venous Blood Culture - Preliminary No growth after 24 hours. 04/02/21 13:20 Sputum - Suctioned Gram Stain - Final 04/02/21 13:20 Sputum - Suctioned Sputum Culture - Final Methicillin Res Staph Aureus 03/24/21 16:49 Blood - Central Line Blood Culture - Final No growth after 5 days. 03/24/21 16:49 Blood - Central Line Blood Culture - Final No growth after 5 days. 03/24/21 16:50 Urine Catheterized - Witt Catheter Urine Culture - Final No growth. 03/18/21 19:37 Blood - Venous Blood Culture - Final No growth after 5 days. 03/18/21 19:37 Blood - Venous Blood Culture - Final Quality Stroke Does the patient have a stroke diagnosis?: No VTE Prior VTE?: No VTE Risk Level:: Medical - moderate - high VTE Device Contraindication: Treatment Not Indicated VTE Drug Contraindication: N/A - Med Ordered Critical Care Time Critical Care Time (minutes): 60
[2021-04-19] VITALS (33 sets, daily range): BP systolic 90–138; BP diastolic 47–90; PULSE 12–120; RESP 12–41; TEMP 34–38.6; O2SAT 95–98; BMI 36.6
[2021-04-19] MEDS: Piperacillin Sodium/Tazobactam 2.25 GM in 0.9 % Sodium Chloride 50 ML IV ×3 (00:19→15:16)
[2021-04-19 00:25] LABS: Appearance Urine CLEAR; Color Urine YELLOW; Glucose Urine UA NEG (NEG); Leukocyte Esterase Urine NEG (NEG); Nitrite Urine NEG (NEG); PH 6.5 (5.0-8.0); Urine Blood NEG (NEG); Urine Ketones NEG (NEG); Urine Protein 1+ MG/DL (NEG-TRACE)
[2021-04-19 00:37] LABS: Mucus Urine TRACE /LPF; RBC Urine 0-2 /HPF (0); Renal Epithelial Cells Urine TRACE /LPF; Squamous Epithelial Cell Urine 1+ /LPF; WBC Urine 0-2 /HPF (0-4)
--- NOTE | 2021-04-19 01:25 | PC.NURSE ---
CARE ASSUMED 23:15...REMAINS VENTED VIA TRACH...CPAP 10/PSV 15/FIO2 21%...RR 12-14 ASLEEP...Ve 9 L/M...RR 26-28 AWAKE...Ve 11-12 L/M..SAO2 95-96%...PER SHIFT REPORT...MOSLEY PREVIOUSLY D/C'D AND TO BE RE-INSERTED 6 HOURS LATER PER MD INSTRUCTIONS WITH U/A AND URINE C&S TO BE COLLECTED POST-INSERTION...#16 FR MOSLEY INSERTED WITH 325ml YELLOW URINE OBTAINED...URINE SAMPLES COLLECTED...RECEIVING SCHEDULED CLONIDINE/KLONOPIN VIA PEG PER MAR..AWAKE..TRACKS SPEAKER..NODS YES/NO TO SIMPLE QUESTIONS....TUBE FEEDS TOLERATED 60 CC/HR...RECTAL TUBE LIQUIED BROWN DRAINAGE...SINUS TACHYCARDIA HR 100'S..RARE PAC'S..DENIES DISCOMFORT
[2021-04-19] MEDS: Metoprolol Tartrate 25 MG TABLET PO ×3 (03:47→21:12)
[2021-04-19] MEDS: Heparin Sodium,Porcine 5,000 UNIT/ML VIAL 5000 UNIT SUBCUT ×3 (03:47→21:12)
[2021-04-19 05:43] LABS: VBG Base Excess -8.4 mmol/L; VBG HCO3 15 mmol/L (22-26); VBG pCO2 25 mmHg; VBG pH 7.37 (7.32-7.43); VBG pO2 44 mmHg
[2021-04-19 06:03] LABS: Hematocrit 25.3 % (37.0-47.0); Hemoglobin 7.8 g/dl (12.0-16.0); Mean Corpuscular HGB Conc 30.8 g/dl (31.0-35.0); Mean Corpuscular Hemoglobin 28.3 pg (27.0-33.0); Mean Corpuscular Volume 91.7 fL (80.0-98.0); Mean Platelet Volume 9.4 fL (9.4-12.3); Platelet Count 354 X10*3/uL (160-400); Red Blood Count 2.76 X10*6/uL (4.20-5.50); Red Cell Distribution Width 17.2 % (11.0-16.0); White Blood Count 10.5 X10*3/uL (4.8-10.8)
[2021-04-19] MEDS: Pantoprazole Sodium 40 MG/10 ML VIAL IVPUSH (06:19)
[2021-04-19 06:30] LABS: Alanine Aminotransferase 13 U/L (0-31); Albumin Level 3.1 g/dL (3.5-5.0); Alkaline Phosphatase 80 U/L (39-117); Anion Gap 19 (12-20); Aspartate Amino Transferase 15 U/L (5-31); Bilirubin Total 0.4 mg/dL (0.0-1.0); Blood Urea Nitrogen 61 mg/dL (9-16); Calcium 9.1 mg/dL (8.4-10.2); Carbon Dioxide 15 mmol/L (22-29); Chloride 108 mmol/L (96-108); Creatinine Clr Calc Pharmacy 15.8; Estimated Glomerular Filt Rate 10; Glucose Random 110 mg/dL (60-115); Phosphorus 3.8 mg/dL (2.7-4.5); Potassium 4.5 mmol/L (3.3-5.1); Sodium 137 mmol/L (135-145); Total Protein 5.5 g/dL (6.5-8.0)
[2021-04-19 06:31] LABS: Vancomycin Random 16.4 mcg/mL (15-20)
[2021-04-19 06:41] LABS: Band Neutrophils Percent 11 % (3-5); Eosinophils Absolute Manual 0.2 X10*3/uL (0.0-0.4); Eosinophils Percent Manual 2 % (0-4); Lymphocytes Absolute Manual 1.1 X10*3/uL (1.2-4.9); Lymphocytes Percent Manual 10 % (20-40); Macrocytosis 1+ (5-14) /OIF; Metamyelocytes Absolute 0.2 X10*3/uL; Metamyelocytes Percent 2 %; Monocytes Absolute Manual 1.2 X10*3/uL (0.1-1.2); Monocytes Percent Manual 11 % (2-11); Myelocytes Absolute 0.2 X10*/uL; Myelocytes Percent 2 %; Neutrophils Absolute Manual 7.5 X10*3/uL (2.0-8.3); Neutrophils Percent Manual 60 % (45-73); Platelet Estimate SLIGHTLY INCREASED (NORMAL); Platelet Morphology Comment NORMAL; Polychromasia 1+ (0-2) /OIF; Promyelocytes Absolute 0.2 X10*3/uL; Promyelocytes Percent 2 %; RBC Morphology NOTED; Smudge Cells PRESENT
[2021-04-19 07:04] LABS: Venous Blood Gas Refer to POC result
[2021-04-19] MEDS: cloNIDine HCL 0.2 MG TABLET PO ×3 (07:14→21:15)
[2021-04-19] MEDS: Cholestyramine (With Sugar) 4 GM POWD.PACK 8 GM PO ×2 (07:14→21:12)
[2021-04-19] MEDS: Famotidine 20 MG TABLET PO (07:14)
[2021-04-19] MEDS: clonazePAM 0.5 MG TABLET PO ×3 (07:14→21:12)
[2021-04-19] MEDS: HYDROmorphone HCl 1 MG/ML SYRINGE IVPUSH (07:42)
[2021-04-19] MEDS: Chlorhexidine Gluc Oral Rinse 15 ML MOUTHWASH BUCCAL ×3 (07:46→21:12)
[2021-04-19] MEDS: Furosemide 200 MG in 0.9 % Sodium Chloride 80 ML IVCONT (10:12)
[2021-04-19] MEDS: Sodium Zirconium Cyclosilicate 10 GM POWD.PACK PO ×2 (10:13→15:16)
--- NOTE | 2021-04-19 10:40 | PM.PNNEP ---
Subjective Subjective Date of Service: 04/19/21 Interval history: Sen and examined, evetns noted Physical Exam Vital Signs: Vital Signs: Last Vital Signs Temp 99.9 F 04/19/21 10:00 Pulse 109 H 04/19/21 10:00 Resp 16 04/19/21 10:00 BP 105/63 04/19/21 10:00 Pulse Ox 98 04/19/21 10:00 BMI result Body Mass Index 36.6 Const: Other: Awake Reintubated 04/09/21 Now on Trach Lungs with Rhonchi Hrt : No gallop or rub Abd Obese Soft NS no asterexis General: comfortable, no acute distress and ill appearing HENMT: Head: Yes normocephalic and Yes atraumatic Neck: Neck: Yes supple Resp: Auscultation: diminished lung sounds Cardio: Rate: regular rate and tachycardic Heart sounds: S1 normal heart sound present and S2 normal heart sound present GI: Palpation (GI): Soft to palpation and no guarding Neuro: Other: Sedated Extrem: General: Yes pedal edema Objective Data Labs CBC & Chem 7: 04/19/21 05:32 04/19/21 05:32 Labs: Laboratory Results - last 24 hr 04/18/21 04/19/21 04/19/21 12:45 00:07 05:32 WBC RBC Hgb Hct MCV MCH MCHC RDW Plt Count MPV Immature Gran % (Auto) Neut % (Auto) Lymph % (Auto) [place] % (Auto) Eos % (Auto) Baso % (Auto) Lymph # (Auto) [place] # (Auto) Eos # (Auto) Baso # (Auto) Abs Immat Gran (auto) Absolute Neuts (auto) Absolute Nucleated RBC Nucleated RBC % (auto) Neutrophils % (Manual) Band Neutrophils % Lymphocytes % (Manual) Monocytes % (Manual) Eosinophils % (Manual) Metamyelocytes % Myelocytes % Promyelocytes % Abs Neuts (Manual) Lymphocytes # (Manual) Monocytes # (Manual) Eosinophils # (Manual) Metamyelocytes # Myelocytes # Promyelocytes # Smudge Cells Platelet Estimate Plt Morphology Comment RBC Morphology Polychromasia Macrocytosis VBG pH VBG pCO2 VBG pO2 VBG HCO3 VBG O2 Saturation VBG Base Excess Sodium 137 Potassium 4.5 Chloride 108 Carbon Dioxide 15 L Anion Gap 19 BUN 61 H Creatinine 4.37 H* Estim Creat Clear Calc 15.8 Estimated GFR 10 Random Glucose 110 Calcium 9.1 Phosphorus 3.8 Total Bilirubin 0.4 AST 15 ALT 13 Alkaline Phosphatase 80 Total Protein 5.5 L Albumin 3.1 L Urine Color YELLOW Urine Appearance CLEAR Urine pH 6.5 Ur Specific [place] 1.010 Urine Protein 1+ H Urine Glucose (UA) NEG Urine Ketones NEG Urine Blood NEG Urine Nitrite NEG Ur Leukocyte Esterase NEG Urine RBC 0-2 Urine WBC 0-2 Ur Squamous Epith Cells 1+ Ur Renal Epithelial Cell TRACE Urine Bacteria NONE Urine Mucus TRACE Random Vancomycin Blood Type O Negative Antibody Screen NEGATIVE Crossmatch (AHG) See Detail 04/19/21 04/19/21 04/19/21 05:32 05:32 05:35 WBC 10.5 RBC 2.76 L Hgb 7.8 L Hct 25.3 L MCV 91.7 MCH 28.3 MCHC 30.8 L RDW 17.2 H Plt Count 354 MPV 9.4 Immature Gran % (Auto) Cancelled Neut % (Auto) Cancelled Lymph % (Auto) Cancelled [place] % (Auto) Cancelled Eos % (Auto) Cancelled Baso % (Auto) Cancelled Lymph # (Auto) Cancelled [place] # (Auto) Cancelled Eos # (Auto) Cancelled Baso # (Auto) Cancelled Abs Immat Gran (auto) Cancelled Absolute Neuts (auto) Cancelled Absolute Nucleated RBC 0.000 Nucleated RBC % (auto) 0.0 Neutrophils % (Manual) 60 Band Neutrophils % 11 H Lymphocytes % (Manual) 10 L Monocytes % (Manual) 11 Eosinophils % (Manual) 2 Metamyelocytes % 2 Myelocytes % 2 Promyelocytes % 2 Abs Neuts (Manual) 7.5 Lymphocytes # (Manual) 1.1 L Monocytes # (Manual) 1.2 Eosinophils # (Manual) 0.2 Metamyelocytes # 0.2 Myelocytes # 0.2 Promyelocytes # 0.2 Smudge Cells PRESENT Platelet Estimate SLIGHTLY INCREASED Plt Morphology Comment NORMAL RBC Morphology NOTED Polychromasia 1+ (0-2) Macrocytosis 1+ (5-14) VBG pH 7.37 VBG pCO2 25 VBG pO2 44 VBG HCO3 15 L VBG O2 Saturation 75.0 VBG Base Excess -8.4 Sodium Potassium Chloride Carbon Dioxide Anion Gap BUN Creatinine Estim Creat Clear Calc Estimated GFR Random Glucose Calcium Phosphorus Total Bilirubin AST ALT Alkaline Phosphatase Total Protein Albumin Urine Color Urine Appearance Urine pH Ur Specific [place] Urine Protein Urine Glucose (UA) Urine Ketones Urine Blood Urine Nitrite Ur Leukocyte Esterase Urine RBC Urine WBC Ur Squamous Epith Cells Ur Renal Epithelial Cell Urine Bacteria Urine Mucus Random Vancomycin 16.4 Blood Type Antibody Screen Crossmatch (AHG) Microbiology Microbiology Results: Microbiology 04/17/21 08:27 Sputum - Suctioned Gram Stain - Final 04/17/21 08:27 Sputum - Suctioned Sputum Culture - Preliminary Proteus mirabilis 04/17/21 00:40 Urine Catheterized - Witt Catheter Urine Culture - Final Proteus mirabilis 04/17/21 00:56 Blood - Venous Blood Culture - Preliminary No growth after 48 hours. 04/17/21 01:00 Blood - Venous Blood Culture - Preliminary No growth after 48 hours. 04/02/21 13:20 Sputum - Suctioned Gram Stain - Final 04/02/21 13:20 Sputum - Suctioned Sputum Culture - Final Methicillin Res Staph Aureus 03/24/21 16:49 Blood - Central Line Blood Culture - Final No growth after 5 days. 03/24/21 16:49 Blood - Central Line Blood Culture - Final No growth after 5 days. 03/24/21 16:50 Urine Catheterized - Witt Catheter Urine Culture - Final No growth. 03/18/21 19:37 Blood - Venous Blood Culture - Final No growth after 5 days. 03/18/21 19:37 Blood - Venous Blood Culture - Final Procedures Date of Service Date of Service: 04/19/21 Assessment & Plan Assessment and plan (1) JOAN (acute kidney injury): Status: Acute Plan JOAN superimposed on CKD CKD 4: BSL SCr 2.5-3.0 Scr again slt incr past 24 hrs rate of incr is less and incr UOP; but still no abs indication for HD; makng urine and still a hope she may be early phase of recovering enough to come off HD; Pcath on hold for now [facility] REC: cont trial of lasix; trak UOP/renal func; angela we will need to r/s HD in next several days ( will need new temp line for that given recent fever) and then will need Path placement once infection not an issue next week if cont HD needed; give NaHCO3 down NGT vs IV will follow tommy with team Time Spent With Patient Time: Total time spent is greater than 50% in coordination of care (as documented) at patient's floor/unit and/or counseling patient: Progress Note: Quality Stroke Does the patient have a stroke diagnosis?: No
[2021-04-19] MEDS: Artificial Tears 15 ML DROPS 2 DROP EYE-BOTH (13:29)
[2021-04-19] MEDS: fentaNYL citrate/PF 100 MCG/2 ML VIAL 50 MCG IVPUSH (13:33)
[2021-04-19] MEDS: Sodium Bicarbonate 650 MG TABLET G-TUBE (15:37)
--- NOTE | 2021-04-19 15:47 | P.PNCC_ITS ---
Subjective Subjective Date of Service: 04/19/21 Interval History: Ms. Galeas was admitted to the ICU on Mar 18 with acute respiratory failure. The patient is a 60 yo F with PMHx of COPD on 2 L of supplemental oxygen; lung cancer s/p ?palliative? 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 She?s had COVID vaccine shots x3. The patient lives with her boyfriend (Kodi Mahmood, one of her HCPs, cell [phone]) and her son.? She walks with a cane.? She needs help with dressing and bathing.? Her daughter Anabel, who is the other HCP (cell:? [phone]), tells me that her grandmother (ie Anabel?s grandmother), who?s 80 years old, is in better health than her mother (the patient). The patient was seen in the ED here on Mar 12 c/o SOB.? Dx?d with a COPD exac c.? (No CXR or COVID test done.)? Discharged with a Prednisone script. HISTORY OF PRESENT ILLNESS: The patient was BIBA on 03/18/2021 with SOB and confusion.? ABG showed 7.45/37/ 124/+2.? CXR showed increased interstitial prominence bilaterally, and a new more focal hazy opacity in the left lower lobe.? COVID-19 test was positive.? BUN/creat 131/2.5 (baseline about 90/3.2).? D-dimer was 2300.? She developed hypoxia refractory to NIV, and required intubation and ventilatory support.? She was admitted to ICU, and treated for COVID.? Noncontrast chest CT showed empysema; small areas of dense opacification in the posterior lower lobes with scattered small areas of groundglass attenuation in the upper lobes; suggestive of multifocal pneumonia and/or sequelae of aspiration.? Venous Duplex scan was negative Peak trop was 2800.? EKG showed no ischemic changes.? Echocardiogram on Mar 19 showed LVEF 30% with marked RWMAs.? The RV size was mod increased, with decreased fxn.? IVC was dilated w no insp collapse.? RVSP estimate 41mm. ?Last echo 2018 showed normal LV fxn, mild LVH, normal right heart, no valvular pathology.? Thought to have NSTEMI vs demand ischemia. The patient?s FiO2 came down rapidly, and bec of that, COVID pneumonia was felt unlikely and COVID treatment was stopped.? The patient was extubated on 2. ?She was sat?ing up to 98% on 2L NC.? The patient?s renal indices cally progressively.? The patient remained significantly encephalopathic, thought likely secondary to uremia.? On Mar 23 she developed respiratory distress and hypoxemia thought secondary to aspiration and/or inability to protect the airway.? The patient was reintubated.? Head CT showed no acute structural lesions to account for her encephalopathy. A temporary dialysis catheter was placed on Mar 24 and she was started on dialysis on March 25.? Repeat echo that day showed near normal LV function, and normal RV size and function.? The IVC was normal sized with near full inspiratory collapse, suggesting that she might be hypovolemic.? Volume resuscitation improved her BP.? New onset atrial flutter was converted to SR with diltiazem. Mar 26 she was putting out black stool, hemoccult positive.? Hb was down 3grams.? She underwent EGD by Dr. Queen.? Found gastritis with erosions that were likely the site of bleeding.? She was tx w bid PPI plus Carafate.? A lung perfusion study showed very low prob of PE. The patient had delayed awakening with sedation holidays.? Finally extubated uneventfully on April 08.? She developed pulmon edema, managed with BiPAP and hemodialysis, but nevertheless, required re-intubation on April 09.? She then underwent tracheostomy and PEG on April 11. Notably, during her month-long stay here, she?s only had two doses of methadone, totaling 100mg.? She?s been on a fentanyl drip during most of her ICU stay.? That was tapered off on April 15, and we?ve been using prn fentanyl and dila udid since then. Her mental status has continuously improved over this past week.? On Precedex during the week she?s been easily and appropriately interactive.? She?s had pressure support trials daily this week. ?The Precedex has been off since yesterday morning.? She?s on clonidine 0.2 mg tid, and Klonopin 0.5 mg tid.? The patient has repetitively denied pain. On April 16, she spiked a temp to 102.2, and dropped her BP into 70?s.? Lactate was 2.2.? She was fully cultured, her right IJV temporary dialysis catheter was pulled, and she was started on broad-spectrum antibiotics and Lokelma. Last HD was April 14.? Her u/o has been picking up.? Creat is rising slowly since then, but phos is staying low, potassium is controlled with LoKelma, and her u/o is responding to Lasix, currently on a drip at 3mg/hr. Today she?s awake, smiling at me, seems to deny pain, altho I can?t tell for sure what she?s saying.? On PSV 15/21%/+10 since the morning, for about 8 hours so far.? RR is about 30, Vt 250-600cc, Ve up to 11L, ETCO2 24mm, Sat 96%.? HR 100-110, BP 124/78.? Tmax 101.5?.? No JVD at 20?.? The former right IJV dialysis catheter site looks clean.? Chest CTA with normal exp phase.? Regular rate and rhythm, tachy, with normal-sounding S1 and S2, with no murmur or gallops.? Abdomen is benign.? Trivial if any edema.? She?s significantly wrinkled.? Neuro:? Severe ICU myopathy, motor strength is barely antigravity, nonfocal. U/O running 75-100cc/hr on the Lasix drip. LABORATORY DATA:? Below.? Notably, WBC down to 10.5.? Hb up to 7.8 after tr ansfusion 1 unit RBCs yesterday.? K down to 4.5 on the Lokelma.? BUN/Creat up to 61/4.3 (from 57/4.2 yest).? Bicarb down to 15.? Phos up to 3.8 MICROBIOLOGY:? Sputum GS shows 2+ polys, mixed esperanza, growing 3+ GNR, Cx showing farah-sensitive proteus.? We changed her Witt cath last night; u/a this morning is negative.? ?Urine cx pending.? BCs negative. IMPRESSION: 1. Underlying emphysematous lung disease. 2. Chronic hypoxemic and hypercapnic lung disease.? Blood gasses show signif hypercarbia dating back at least two years. 3. Underlying CKD 4-5. 4. Significant baseline disability 5. Acute respiratory failure on admission, the etiology of which is not clear.? Her admitting CXR was c/w almost anything.? Although her chest CT was not inconsistent with mild COVID pneumonia, the fact that she went from 100% FiO2 to 2L NC (which is her baseline) in a few days is thoroughly inconsistent with severe COVID pneumonia.? PE was eventually ruled out by perfusion scan.? And her hypoxemia was not likely aspiration or bacterial or viral pneumonia, given the relatively clear CXR.? Whatever the cause, three days of Solu-Medrol significantly improved her hypoxemia. 6. COVID positive on admission, but she didn?t have COVID pneumonia. 7. Severe critical illness myopathy.? Anticipate respiratory weaning period of 1-2 months.? Will need prolonged rehab.? PT, OT, and speech eval working. 8. Current hypercapnic resp failure.? 2? above.? Continuing weaning trials. 9. Biventricular heart failure on echo of Mar 19.? Likely NSTEMI vs demand ischemia.? Her echo pretty much normalized by Mar 25. 10. ?ACS.? Initial troponins had no accompanying EKG changes, but the trop bump on 03/26 had new T wave inversions.? So we added statin and metoprolol.? Upped the metoprolol dose to 25 mg tid to control her tachycardia. 11. Acute on chronic renal failure stage 5.? Undoubtedly 2? ATN.? U/O last couple days running 75-100cc/hr, and we?re holding dialysis for now.? Given that her phos is not rising, I?m wondering if she might crest her renal indices in the 60s/4 range.? If so, we could control her potassium with Lokelma, control her met acidosis with oral bicarb, and control her fluid volume with Lasix.? If that doesn?t work, she?ll need a permcath. 12. Encephalopathy.? Metabolic encephalopathy 2? uremia.? Slowly resolved after many HD sessions. 13. ID: Fever and hypotension on April 16, with positive lactate.? Lactate cleared easily.? Source of infection is not clear.? BCs are negative.? Urine looks negative after changing the Witt cath.? And her Sat has being running 99% on room air, so it?s a virtual certainty that she doesn?t have pneumonia.? Nevertheless, sputum is the only thing that?s growing, with moderate polys.? So I?ll d/c the vanco and the Zosyn and change her to Ceftriaxone. 14. UGI bleed.? 2? stress gastritis.? Now on just omeprazole. 15. Anemia.? Stool is brown.? Transfusing to keep her Hb > 7, given the poss of ACS. 16. Nutrition.? On goal rate Promote.? Using Lokelma to control her potassium. 17. Diarrhea.? Light brown.? CDiff negative.? Started questran.? Improving. 18. Methadone.? I discussed ?ather methadone maint with the nurses and with Abi Rendon.? From a physiologic point of view, she?s ?detoxed? from methadone.? The question is whether she?s completely detoxed from opiates, and therefore, w hether or not she needs methadone anymore. ?I spoke with the patient?s daughter about how she got started on the methadone to begin with.? She has no knowledge that the patient started out in pain and was using prescription opiates.? As far as she knows, her mother just became addicted.? She thinks her mother was using heroin. ? IMO, it?s likely that at this point and onwards, Deirdre can just be treated with prn opiates, in the same way as we would manage any other patient with resp failure.? We?ll see how she does, and how much opiates she takes over the next few days.? If she requires significant dosing, that could be a reason to put her on a low dose of methadone.? Otherwise, there?s no reason to consign her to a lifetime of methadone maint. Critical Care Time (minutes): 60 Physical Exam Vital Signs: Vital Signs: Last Vital Signs Temp 101.1 F H 04/19/21 15:00 Pulse 120 H 04/19/21 15:00 Resp 27 H 04/19/21 15:00 BP 124/78 03/12/22 15:00 Pulse Ox 96 04/19/21 15:00 BMI result Body Mass Index 36.6 Objective Data Labs CBC & Chem 7: 04/19/21 05:32 04/19/21 05:32 Labs: Laboratory Results - last 24 hr 04/18/21 04/19/21 04/19/21 12:45 00:07 05:32 WBC RBC Hgb Hct MCV MCH MCHC RDW Plt Count MPV Immature Gran % (Auto) Neut % (Auto) Lymph % (Auto) [place] % (Auto) Eos % (Auto) Baso % (Auto) Lymph # (Auto) [place] # (Auto) Eos # (Auto) Baso # (Auto) Abs Immat Gran (auto) Absolute Neuts (auto) Absolute Nucleated RBC Nucleated RBC % (auto) Neutrophils % (Manual) Band Neutrophils % Lymphocytes % (Manual) Monocytes % (Manual) Eosinophils % (Manual) Metamyelocytes % Myelocytes % Promyelocytes % Abs Neuts (Manual) Lymphocytes # (Manual) Monocytes # (Manual) Eosinophils # (Manual) Metamyelocytes # Myelocytes # Promyelocytes # Smudge Cells Platelet Estimate Plt Morphology Comment RBC Morphology Polychromasia Macrocytosis VBG pH VBG pCO2 VBG pO2 VBG HCO3 VBG O2 Saturation VBG Base Excess Sodium 137 Potassium 4.5 Chloride 108 Carbon Dioxide 15 L Anion Gap 19 BUN 61 H Creatinine 4.37 H* Estim Creat Clear Calc 15.8 Estimated GFR 10 Random Glucose 110 Calcium 9.1 Phosphorus 3.8 Total Bilirubin 0.4 AST 15 ALT 13 Alkaline Phosphatase 80 Total Protein 5.5 L Albumin 3.1 L Urine Color YELLOW Urine Appearance CLEAR Urine pH 6.5 Ur Specific [place] 1.010 Urine Protein 1+ H Urine Glucose (UA) NEG Urine Ketones NEG Urine Blood NEG Urine Nitrite NEG Ur Leukocyte Esterase NEG Urine RBC 0-2 Urine WBC 0-2 Ur Squamous Epith Cells 1+ Ur Renal Epithelial Cell TRACE Urine Bacteria NONE Urine Mucus TRACE Random Vancomycin Crossmatch (AHG) See Detail 04/19/21 04/19/21 04/19/21 05:32 05:32 05:35 WBC 10.5 RBC 2.76 L Hgb 7.8 L Hct 25.3 L MCV 91.7 MCH 28.3 MCHC 30.8 L RDW 17.2 H Plt Count 354 MPV 9.4 Immature Gran % (Auto) Cancelled Neut % (Auto) Cancelled Lymph % (Auto) Cancelled [place] % (Auto) Cancelled Eos % (Auto) Cancelled Baso % (Auto) Cancelled Lymph # (Auto) Cancelled [place] # (Auto) Cancelled Eos # (Auto) Cancelled Baso # (Auto) Cancelled Abs Immat Gran (auto) Cancelled Absolute Neuts (auto) Cancelled Absolute Nucleated RBC 0.000 Nucleated RBC % (auto) 0.0 Neutrophils % (Manual) 60 Band Neutrophils % 11 H Lymphocytes % (Manual) 10 L Monocytes % (Manual) 11 Eosinophils % (Manual) 2 Metamyelocytes % 2 Myelocytes % 2 Promyelocytes % 2 Abs Neuts (Manual) 7.5 Lymphocytes # (Manual) 1.1 L Monocytes # (Manual) 1.2 Eosinophils # (Manual) 0.2 Metamyelocytes # 0.2 Myelocytes # 0.2 Promyelocytes # 0.2 Smudge Cells PRESENT Platelet Estimate SLIGHTLY INCREASED Plt Morphology Comment NORMAL RBC Morphology NOTED Polychromasia 1+ (0-2) Macrocytosis 1+ (5-14) VBG pH 7.37 VBG pCO2 25 VBG pO2 44 VBG HCO3 15 L VBG O2 Saturation 75.0 VBG Base Excess -8.4 Sodium Potassium Chloride Carbon Dioxide Anion Gap BUN Creatinine Estim Creat Clear Calc Estimated GFR Random Glucose Calcium Phosphorus Total Bilirubin AST ALT Alkaline Phosphatase Total Protein Albumin Urine Color Urine Appearance Urine pH Ur Specific [place] Urine Protein Urine Glucose (UA) Urine Ketones Urine Blood Urine Nitrite Ur Leukocyte Esterase Urine RBC Urine WBC Ur Squamous Epith Cells Ur Renal Epithelial Cell Urine Bacteria Urine Mucus Random Vancomycin 16.4 Crossmatch (AHG) Microbiology Microbiology Results: Microbiology 04/17/21 08:27 Sputum - Suctioned Gram Stain - Final 04/17/21 08:27 Sputum - Suctioned Sputum Culture - Preliminary Proteus mirabilis 04/17/21 00:40 Urine Catheterized - Witt Catheter Urine Culture - Final Proteus mirabilis 04/17/21 00:56 Blood - Venous Blood Culture - Preliminary No growth after 48 hours. 04/17/21 01:00 Blood - Venous Blood Culture - Preliminary No growth after 48 hours. 04/02/21 13:20 Sputum - Suctioned Gram Stain - Final 04/02/21 13:20 Sputum - Suctioned Sputum Culture - Final Methicillin Res Staph Aureus 03/24/21 16:49 Blood - Central Line Blood Culture - Final No growth after 5 days. 03/24/21 16:49 Blood - Central Line Blood Culture - Final No growth after 5 days. 03/24/21 16:50 Urine Catheterized - Witt Catheter Urine Culture - Final No growth. 03/18/21 19:37 Blood - Venous Blood Culture - Final No growth after 5 days. 03/18/21 19:37 Blood - Venous Blood Culture - Final Quality Stroke Does the patient have a stroke diagnosis?: No VTE Prior VTE?: No VTE Risk Level:: Medical - moderate - high VTE Device Contraindication: Treatment Not Indicated VTE Drug Contraindication: N/A - Med Ordered Critical Care Time Critical Care Time (minutes): 60
--- NOTE | 2021-04-19 18:12 | PC.NURSE ---
Addendum entered by Eusebia Echeverria RN 04/19/21 18:16: PATIENT ALSO REALLY ENJOYS MUSIC: [employer] [place]. Original Note: TMAX 101.5. MD NOTIFIED AND INSTRUCTED NOT TO GIVEN TYLENOL UNLESS IT REACHED 102. PRECEDEX REMAINS OFF ALL SHIFT. LASIX GTT REMAINS ORDERED. URINE OUTPUT WNL. PAIN TREATED WITH PRN DILAUDID. SEE EMAR. WOB TREATED WITH PRN FENTANYL. SEE EMAR. PATIENT COMPLAINED OF BURNING, DRY EYES. MD NOTIFIED AND ORDERED ARTIFICAL TEARS. ADMINISTERED WITH POSITIVE EFFECT. BM X 2. BATHED, Q2HR REPO, PREVALON SYSTEM/PILLOWS/WEDGES, TURNING BED UTILIZED.
[2021-04-19] MEDS: cefTRIAXone sodium 1 GM in 0.9 % Sodium Chloride 50 ML IV (21:13)
[2021-04-20] VITALS (33 sets, daily range): BP systolic 91–135; BP diastolic 52–79; PULSE 84–115; RESP 10–36; TEMP 33.8–38.1; O2SAT 91–100; BMI 35.4
[2021-04-20] MEDS: Sodium Zirconium Cyclosilicate 10 GM POWD.PACK PO ×3 (00:26→14:36)
[2021-04-20] MEDS: Sodium Bicarbonate 650 MG TABLET G-TUBE ×3 (03:29→15:22)
[2021-04-20] MEDS: Heparin Sodium,Porcine 5,000 UNIT/ML VIAL 5000 UNIT SUBCUT (03:29)
[2021-04-20] MEDS: Metoprolol Tartrate 25 MG TABLET PO ×3 (05:39→20:17)
[2021-04-20] MEDS: Pantoprazole Sodium 40 MG/10 ML VIAL IVPUSH (05:39)
[2021-04-20 05:42] LABS: VBG Base Excess -8.1 mmol/L; VBG HCO3 16 mmol/L (22-26); VBG pCO2 27 mmHg; VBG pH 7.36 (7.32-7.43); VBG pO2 45 mmHg
[2021-04-20 05:53] LABS: Hematocrit 24.5 % (37.0-47.0); Hemoglobin 7.6 g/dl (12.0-16.0); Mean Corpuscular Hemoglobin 28.4 pg (27.0-33.0); Mean Corpuscular Volume 91.4 fL (80.0-98.0); Mean Platelet Volume 9.3 fL (9.4-12.3); Platelet Count 323 X10*3/uL (160-400); Red Blood Count 2.68 X10*6/uL (4.20-5.50); Red Cell Distribution Width 17.2 % (11.0-16.0); White Blood Count 9.8 X10*3/uL (4.8-10.8)
[2021-04-20 06:12] LABS: Alanine Aminotransferase 11 U/L (0-31); Albumin Level 2.9 g/dL (3.5-5.0); Alkaline Phosphatase 79 U/L (39-117); Anion Gap 17 (12-20); Aspartate Amino Transferase 13 U/L (5-31); Bilirubin Total 0.3 mg/dL (0.0-1.0); Blood Urea Nitrogen 64 mg/dL (9-16); Carbon Dioxide 17 mmol/L (22-29); Chloride 109 mmol/L (96-108); Creatinine Clr Calc Pharmacy 15.7; Estimated Glomerular Filt Rate 10; Glucose Random 115 mg/dL (60-115); Potassium 3.9 mmol/L (3.3-5.1); Sodium 139 mmol/L (135-145); Total Protein 5.1 g/dL (6.5-8.0)
[2021-04-20 06:47] LABS: Band Neutrophils Percent 22 % (3-5); Burr Cells 1+ (0-2) /OIF; Eosinophils Absolute Manual 0.1 X10*3/uL (0.0-0.4); Eosinophils Percent Manual 1 % (0-4); Lymphocytes Absolute Manual 1.3 X10*3/uL (1.2-4.9); Lymphocytes Percent Manual 13 % (20-40); Macrocytosis 1+ (5-14) /OIF; Metamyelocytes Absolute 0.1 X10*3/uL; Metamyelocytes Percent 1 %; Monocytes Absolute Manual 0.7 X10*3/uL (0.1-1.2); Monocytes Percent Manual 7 % (2-11); Myelocytes Absolute 0.4 X10*/uL; Myelocytes Percent 4 %; Neutrophils Percent Manual 49 % (45-73); Platelet Estimate NORMAL (NORMAL); Platelet Morphology Comment NORMAL; Polychromasia 1+ (0-2) /OIF; Promyelocytes Absolute 0.3 X10*3/uL; Promyelocytes Percent 3 %; RBC Morphology NOTED; Schistocytes 1+ (0-2) /OIF
[2021-04-20 06:48] LABS: Venous Blood Gas Refer to POC result
[2021-04-20] MEDS: Chlorhexidine Gluc Oral Rinse 15 ML MOUTHWASH BUCCAL ×3 (07:28→20:21)
[2021-04-20] MEDS: Cholestyramine (With Sugar) 4 GM POWD.PACK 8 GM PO ×2 (07:28→20:18)
[2021-04-20] MEDS: Famotidine 20 MG TABLET PO (07:29)
[2021-04-20] MEDS: clonazePAM 0.5 MG TABLET PO ×3 (07:29→20:17)
[2021-04-20] MEDS: cloNIDine HCL 0.2 MG TABLET PO ×3 (07:29→22:27)
[2021-04-20] MEDS: Furosemide 200 MG in 0.9 % Sodium Chloride 80 ML IVCONT (09:28)
[2021-04-20 11:48] LABS: Leukocytes Stool Qualitative NEGATIVE (NEGATIVE)
[2021-04-20] MEDS: LORazepam 2 MG/ML VIAL 1 MG IVPUSH (13:37)
[2021-04-20 13:53] LABS: CDiff Gene PCR NEGATIVE (Negative)
--- NOTE | 2021-04-20 16:48 | P.PNNP_ITS ---
Subjective Subjective Date of Service: 04/20/21 Interval history: Seen and examined, events noted Physical Exam Vital Signs: Vital Signs: Last Vital Signs Temp 100.4 F 04/20/21 16:00 Pulse 108 H 04/20/21 16:00 Resp 20 04/20/21 16:00 BP 113/65 04/20/21 16:00 Pulse Ox 96 04/20/21 16:00 BMI result Body Mass Index 35.4 Const: Other: Awake Reintubated 04/09/21 Now on Trach Lungs with Rhonchi Hrt : No gallop or rub Abd Obese Soft NS no asterexis General: comfortable, no acute distress and ill appearing HENMT: Head: Yes normocephalic and Yes atraumatic Neck: Neck: Yes supple Resp: Auscultation: diminished lung sounds Cardio: Rate: regular rate and tachycardic Heart sounds: S1 normal heart sound present and S2 normal heart sound present GI: Palpation (GI): Soft to palpation and no guarding Neuro: Other: Sedated Extrem: General: Yes pedal edema Objective Data Labs CBC & Chem 7: 04/20/21 05:35 04/20/21 05:35 Labs: Laboratory Results - last 24 hr 04/18/21 04/20/21 04/20/21 12:45 05:34 05:35 WBC 9.8 RBC 2.68 L Hgb 7.6 L Hct 24.5 L MCV 91.4 MCH 28.4 MCHC 31.0 RDW 17.2 H Plt Count 323 MPV 9.3 L Immature Gran % (Auto) Cancelled Neut % (Auto) Cancelled Lymph % (Auto) Cancelled [place] % (Auto) Cancelled Eos % (Auto) Cancelled Baso % (Auto) Cancelled Lymph # (Auto) Cancelled [place] # (Auto) Cancelled Eos # (Auto) Cancelled Baso # (Auto) Cancelled Abs Immat Gran (auto) Cancelled Absolute Neuts (auto) Cancelled Absolute Nucleated RBC 0.000 Nucleated RBC % (auto) 0.0 Neutrophils % (Manual) 49 Band Neutrophils % 22 H Lymphocytes % (Manual) 13 L Monocytes % (Manual) 7 Eosinophils % (Manual) 1 Metamyelocytes % 1 Myelocytes % 4 Promyelocytes % 3 Abs Neuts (Manual) 7.0 Lymphocytes # (Manual) 1.3 Monocytes # (Manual) 0.7 Eosinophils # (Manual) 0.1 Metamyelocytes # 0.1 Myelocytes # 0.4 Promyelocytes # 0.3 Platelet Estimate NORMAL Plt Morphology Comment NORMAL RBC Morphology NOTED Polychromasia 1+ (0-2) Macrocytosis 1+ (5-14) Abi Cells 1+ (0-2) Schistocytes 1+ (0-2) VBG pH 7.36 VBG pCO2 27 VBG pO2 45 VBG HCO3 16 L VBG O2 Saturation 75.0 VBG Base Excess -8.1 Sodium Potassium Chloride Carbon Dioxide Anion Gap BUN Creatinine Estim Creat Clear Calc Estimated GFR Random Glucose Calcium Total Bilirubin AST ALT Alkaline Phosphatase Total Protein Albumin Stool Leukocytes, Qual C. difficile Tox B Gene Blood Type O Negative Antibody Screen NEGATIVE Crossmatch ([facility]) See Detail 04/20/21 04/20/21 04/20/21 05:35 09:56 09:56 WBC RBC Hgb Hct MCV MCH MCHC RDW Plt Count MPV Immature Gran % (Auto) Neut % (Auto) Lymph % (Auto) [place] % (Auto) Eos % (Auto) Baso % (Auto) Lymph # (Auto) [place] # (Auto) Eos # (Auto) Baso # (Auto) Abs Immat Gran (auto) Absolute Neuts (auto) Absolute Nucleated RBC Nucleated RBC % (auto) Neutrophils % (Manual) Band Neutrophils % Lymphocytes % (Manual) Monocytes % (Manual) Eosinophils % (Manual) Metamyelocytes % Myelocytes % Promyelocytes % Abs Neuts (Manual) Lymphocytes # (Manual) Monocytes # (Manual) Eosinophils # (Manual) Metamyelocytes # Myelocytes # Promyelocytes # Platelet Estimate Plt Morphology Comment RBC Morphology Polychromasia Macrocytosis [place] Cells Schistocytes VBG pH VBG pCO2 VBG pO2 VBG HCO3 VBG O2 Saturation VBG Base Excess Sodium 139 Potassium 3.9 Chloride 109 H Carbon Dioxide 17 L Anion Gap 17 BUN 64 H Creatinine 4.40 H* Estim Creat Clear Calc 15.7 Estimated GFR 10 Random Glucose 115 Calcium 9.0 Total Bilirubin 0.3 AST 13 ALT 11 Alkaline Phosphatase 79 Total Protein 5.1 L Albumin 2.9 L Stool Leukocytes, Qual NEGATIVE C. difficile Tox B Gene NEGATIVE Blood Type Antibody Screen Crossmatch ([facility]) Microbiology Microbiology Results: Microbiology 04/17/21 08:27 Sputum - Suctioned Gram Stain - Final 04/17/21 08:27 Sputum - Suctioned Sputum Culture - Final Proteus mirabilis 04/19/21 Unknown Urine Catheterized - Witt Catheter Urine Culture - Final No growth. 04/17/21 00:40 Urine Catheterized - Witt Catheter Urine Culture - Final Proteus mirabilis 04/17/21 00:56 Blood - Venous Blood Culture - Preliminary No growth after 48 hours. 04/17/21 01:00 Blood - Venous Blood Culture - Preliminary No growth after 48 hours. 04/02/21 13:20 Sputum - Suctioned Gram Stain - Final 04/02/21 13:20 Sputum - Suctioned Sputum Culture - Final Methicillin Res Staph Aureus 03/24/21 16:49 Blood - Central Line Blood Culture - Final No growth after 5 days. 03/24/21 16:49 Blood - Central Line Blood Culture - Final No growth after 5 days. 03/24/21 16:50 Urine Catheterized - Witt Catheter Urine Culture - Final No growth. 03/18/21 19:37 Blood - Venous Blood Culture - Final No growth after 5 days. 03/18/21 19:37 Blood - Venous Blood Culture - Final Procedures Date of Service Date of Service: 04/20/21 Assessment & Plan Assessment and plan (1) JOAN (acute kidney injury): Status: Acute Plan JOAN superimposed on CKD CKD 4: BSL SCr 2.5-3.0 Scr again slt incr past 24 hrs rate of incr is less and incr UOP all favorable signs thatshe isclose to plateuaing and may not need additional HD; but still no abs indication for HD; makng urine and still a hope she may be early phase of recovering enough to come off HD; Pcath on hold for now Temp Hd cath removed d/t fever and last HD was 04/15 NAGMA: now on HCO3 replacement REC: cont trial of lasix; track UOP/renal func; cont PO NaHCO3 will follow tommy with team Time Spent With Patient Time: Total time spent is greater than 50% in coordination of care (as documented) at patient's floor/unit and/or counseling patient: Progress Note: Quality Stroke Does the patient have a stroke diagnosis?: No
--- NOTE | 2021-04-20 16:50 | P.PNCC_ITS ---
Subjective Subjective Date of Service: 04/20/21 Interval History: Ms. Galeas was admitted to the ICU on Mar 18 with acute respiratory failure. The patient is a 60 yo F with PMHx of COPD on 2 L of supplemental oxygen; lung cancer s/p ?palliative? 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 She?s had COVID vaccine shots x3. The patient lives with her boyfriend (Kodi Mahmood, one of her HCPs, cell ) and her son.? She walks with a cane.? She needs help with dressing and bathing.? Her daughter Anabel, who is the other HCP (cell:? [phone]), tells me that her grandmother (ie Anabel?s grandmother), who?s 80 years old, is in better health than her mother (the patient). The patient was seen in the ED here on Mar 12 c/o SOB.? Dx?d with a COPD exacc.? (No CXR or COVID test done.)? Discharged with a Prednisone script. HISTORY OF PRESENT ILLNESS: The patient was BIBA on 03/18/2021 with SOB and confusion.? ABG showed 7.45/37/124/+2.? CXR showed increased interstitial prominence bilaterally, and a new more focal hazy opacity in the left lower lobe.? COVID-19 test was positive.? BUN/creat 131/2.5 (baseline about 90/3.2).? D-dimer was 2300.? She developed hypoxia refractory to NIV, and required intubation and ventilatory support.? She was admitted to ICU, and treated for COVID.? Noncontrast chest CT showed empysema; small areas of dense opacification in the posterior lower lobes with scattered small areas of groundglass attenuation in the upper lobes; suggestive of multifocal pneumonia and/or sequelae of aspiration.? Venous Duplex scan was negative Peak trop was 2800.? EKG showed no ischemic changes.? Echocardiogram on Mar 19 showed LVEF 30% with marked RWMAs.? The RV size was mod increased, with decr eased fxn.? IVC was dilated w no insp collapse.? RVSP estimate 41mm. ?Last echo 2018 showed normal LV fxn, mild LVH, normal right heart, no valvular pathology.? Thought to have NSTEMI vs demand ischemia. The patient?s FiO2 came down rapidly, and bec of that, COVID pneumonia was felt unlikely and COVID treatment was stopped.? The patient was extubated on 03/21/2021. ?She was sat?ing up to 98% on 2L NC.? The patient?s renal indices cally progressively.? The patient remained significantly encephalopathic, thought likely secondary to uremia.? On Mar 23 she developed respiratory distress and hypoxemia thought secondary to aspiration and/or inability to protect the airway.? The patient was reintubated.? Head CT showed no acute structural lesions to account for her encephalopathy. A temporary dialysis catheter was placed on Mar 24 and she was started on dialysis on March 25.? Repeat echo that day showed near normal LV function, and normal RV size and function.? The IVC was normal sized with near full inspiratory collapse, suggesting that she might be hypovolemic.? Volume resuscitation improved her BP.? New onset atrial flutter was converted to SR with diltiazem. Mar 26 she was putting out black stool, hemoccult positive.? Hb was down 3grams.? She underwent EGD by Dr. Queen.? Found gastritis with erosions that were likely the site of bleeding.? She was tx w bid PPI plus Carafate.? A lung perfusion study showed very low prob of PE. The patient had delayed awakening with sedation holidays.? Finally extubated uneventfully on April 08.? She developed pulmon edema, and required re-in tubation on April 09.? She then underwent tracheostomy and PEG on April 11. Notably, during her month-long stay here, she?s only had two doses of methadone, totaling 100mg.? She?s been on a fentanyl drip during most of her ICU stay.? That was tapered off on April 15, and we?ve been using prn fentanyl and dilaudid since then.? We?ve also started her on clonidine and round the clock Klonopin. Her mental status has continuously improved over this past week.? On Precedex during the week she?s been easily and appropriately interactive.? She?s had pre ssure support trials daily this week.? The Precedex has been off since for > 48 hrs.? She?s on clonidine 0.2 mg tid, and Klonopin 0.5 mg tid.? The patient has repetitively denied pain. On April 16, she spiked a temp to 102.2, and dropped her BP into 70?s.? Lactate was 2.2.? She was fully cultured, her right IJV temporary dialysis catheter was pulled, and she was started on broad-spectrum antibiotics and Lokelma. Last HD was April 14.? Her u/o has been picking up.? Creat is rising slowly since then, but phos is staying low, potassium is controlled with LoKelma, and her u/o is responding to Lasix, currently on a drip at 3mg/hr.? I started her on oral bicarbonate yesterday. She was awake earlier today, but anxious, so we gave her Ativan 1mg.? Currently sleeping. ?On PSV 14/21%/+7.5, RR is about 9, Vt 600cc, Ve 8L, ETCO2 25mm, Sat 97%.? HR 110, BP 113/65.? Tmax down to 100.6?.? No JVD at 20?.? The former right IJV dialysis catheter site looks clean.? Chest CTA with normal exp phase.? Regular rate and rhythm, tachy, with normal-sounding S1 and S2, with no murmur or gallops.? Abdomen is benign.? Trivial if any edema.? Neuro:? Severe ICU myopathy, motor strength is barely antigravity. U/O running > 100cc/hr on the Lasix drip. LABORATORY DATA:? Below.? Notably, WBC down to 9.8.? Hb steady.? BUN/creat up to 64/4.4.? K down to 3.9 on the Lokelma and the Lasix.? Bicarb up to 17 on the oral bicarbonate. MICROBIOLOGY:? Sputum GS shows 2+ polys, mixed esperanza, growing 3+ GNR, Cx showing farah-sensitive proteus.? We changed her Witt cath last night; u/a this morning is negative.? ?Urine cx pending.? BCs negative. IMPRESSION: 1. Underlying emphysematous lung disease. 2. Chronic hypoxemic and hypercapnic lung disease.? Blood gasses show signif hypercarbia dating back at least two years. 3. Underlying CKD 4-5. 4. Significant baseline disability 5. Acute respiratory failure on admission, the etiology of which is not clear.? Her admitting CXR was c/w almost anything.? Although her chest CT was not inconsistent with mild COVID pneumonia, the fact that she went from 100% FiO2 to 2L NC (which is her baseline) in a few days is thoroughly inconsistent with severe COVID pneumonia.? PE was eventually ruled out by perfusion scan.? And her hypoxemia was not likely aspiration or bacterial or viral pneumonia, given the relatively clear CXR.? Whatever the cause, three days of Solu-Medrol significantly improved her hypoxemia. 6. COVID positive on admission, but she didn?t have COVID pneumonia. 7. Severe critical illness myopathy.? Anticipate respiratory weaning period of 1-2 months.? Will need prolonged rehab.? PT, OT, and speech eval working. 8. Current hypercapnic respiratory failure.? 2? above.? Continuing weaning trials. 9. Biventricular heart failure on echo of Mar 19.? Likely NSTEMI vs demand ischemia.? Her echo pretty much normalized by Mar 25. 10. ?ACS.? Initial troponins had no accompanying EKG changes, but the trop bump on 03/26 had new T wave inversions.? So we added statin and metoprolol.? Upped the metoprolol dose to 25 mg tid to control her tachycardia. 11. Acute on chronic renal failure stage 5.? Undoubtedly 2? ATN.? U/O last couple days running about 100cc/hr, and we?re holding dialysis for now.? It looks like her renal indices will crest in the 60?s/mid-4?s range.? If so, we could control her potassium with Lokelma, control her met acidosis with oral bicarb, and control her fluid volume with Lasix.? If that doesn?t work, she?d need a permcath.? I will d/c her Lasix now, so we?ll see how she does without it.? Also d/c?d the Lokelma. 12. Encephalopathy.? Metabolic encephalopathy 2? uremia.? Slowly resolved after many HD sessions. 13. ID: Fever and hypotension on April 16, with positive lactate.? Lactate cleared easily.? Source of infection is not clear.? BCs are negative.? Urine looks negative after changing the Witt cath.? And her Sat has being running 99% on room air, so it?s a virtual certainty that she doesn?t have pneumonia.? Nevertheless, her sputum is the only thing that grew, and the Gram stain showed moderate polys.? So I d/c?d the vanco and the Zosyn yesterday, and put her on ceftriaxone. 14. UGI bleed.? 2? stress gastritis.? Now on just omeprazole. 15. Anemia.? Stool is brown.? Transfusing to keep her Hb > 7, given the possible ACS. 16. Nutrition.? On goal rate Promote.? I stopped the Lokelma which we were using to control her potassium.? I would bet that she?ll need daily kayexelate if she doesn?t take a low-potassium tube feed. 17. Diarrhea.? Light brown.? CDiff negative.? Started questran. 18. Methadone.? I discussed her methadone maintenance with the nurses and with Abi Rendon.? From a physiologic point of view, she?s ?detoxed? from methadone.? The question is whether she?s completely detoxed from opiates, and therefore, w hether or not she needs methadone anymore. ?I spoke with the patient?s daughter about how she got started on the methadone to begin with.? She has no knowledge that the patient started out in pain or that her mother was using prescription opiates.? As far as she knows, her mother just became addicted.? She thinks her mother was using heroin. ? IMO, it?s likely that at this point and onwards, Deirdre can be treated with just prn opiates, in the same way as we would manage any other patient with resp failure.? We?ll see how she does, and how much opiates she takes over the next few days.? If she requires significant dosing, that could be a reason to put her on a low dose of methadone.? Otherwise, there?s no reason to consign her to a lifetime of methadone maintenance. Critical Care Time (minutes): 60 Physical Exam Vital Signs: Vital Signs: Last Vital Signs Temp 100.4 F 04/20/21 16:00 Pulse 108 H 04/20/21 16:00 Resp 20 04/20/21 16:00 BP 113/65 04/20/21 16:00 Pulse Ox 96 04/20/21 16:00 BMI result Body Mass Index 35.4 Objective Data Labs CBC & Chem 7: 04/20/21 05:35 04/20/21 05:35 Labs: Laboratory Results - last 24 hr 04/18/21 04/20/21 04/20/21 12:45 05:34 05:35 WBC 9.8 RBC 2.68 L Hgb 7.6 L Hct 24.5 L MCV 91.4 MCH 28.4 MCHC 31.0 RDW 17.2 H Plt Count 323 MPV 9.3 L Immature Gran % (Auto) Cancelled Neut % (Auto) Cancelled Lymph % (Auto) Cancelled [place] % (Auto) Cancelled Eos % (Auto) Cancelled Baso % (Auto) Cancelled Lymph # (Auto) Cancelled [place] # (Auto) Cancelled Eos # (Auto) Cancelled Baso # (Auto) Cancelled Abs Immat Gran (auto) Cancelled Absolute Neuts (auto) Cancelled Absolute Nucleated RBC 0.000 Nucleated RBC % (auto) 0.0 Neutrophils % (Manual) 49 Band Neutrophils % 22 H Lymphocytes % (Manual) 13 L Monocytes % (Manual) 7 Eosinophils % (Manual) 1 Metamyelocytes % 1 Myelocytes % 4 Promyelocytes % 3 Abs Neuts (Manual) 7.0 Lymphocytes # (Manual) 1.3 Monocytes # (Manual) 0.7 Eosinophils # (Manual) 0.1 Metamyelocytes # 0.1 Myelocytes # 0.4 Promyelocytes # 0.3 Platelet Estimate NORMAL Plt Morphology Comment NORMAL RBC Morphology NOTED Polychromasia 1+ (0-2) Macrocytosis 1+ (5-14) [place] Cells 1+ (0-2) Schistocytes 1+ (0-2) VBG pH 7.36 VBG pCO2 27 VBG pO2 45 VBG HCO3 16 L VBG O2 Saturation 75.0 VBG Base Excess -8.1 Sodium Potassium Chloride Carbon Dioxide Anion Gap BUN Creatinine Estim Creat Clear Calc Estimated GFR Random Glucose Calcium Total Bilirubin AST ALT Alkaline Phosphatase Total Protein Albumin Stool Leukocytes, Qual C. difficile Tox B Gene Blood Type O Negative Antibody Screen NEGATIVE Crossmatch ([facility]) See Detail 04/20/21 04/20/21 04/20/21 05:35 09:56 09:56 WBC RBC Hgb Hct MCV MCH MCHC RDW Plt Count MPV Immature Gran % (Auto) Neut % (Auto) Lymph % (Auto) [place] % (Auto) Eos % (Auto) Baso % (Auto) Lymph # (Auto) [place] # (Auto) Eos # (Auto) Baso # (Auto) Abs Immat Gran (auto) Absolute Neuts (auto) Absolute Nucleated RBC Nucleated RBC % (auto) Neutrophils % (Manual) Band Neutrophils % Lymphocytes % (Manual) Monocytes % (Manual) Eosinophils % (Manual) Metamyelocytes % Myelocytes % Promyelocytes % Abs Neuts (Manual) Lymphocytes # (Manual) Monocytes # (Manual) Eosinophils # (Manual) Metamyelocytes # Myelocytes # Promyelocytes # Platelet Estimate Plt Morphology Comment RBC Morphology Polychromasia Macrocytosis Abi Cells Schistocytes VBG pH VBG pCO2 VBG pO2 VBG HCO3 VBG O2 Saturation VBG Base Excess Sodium 139 Potassium 3.9 Chloride 109 H Carbon Dioxide 17 L Anion Gap 17 BUN 64 H Creatinine 4.40 H* Estim Creat Clear Calc 15.7 Estimated GFR 10 Random Glucose 115 Calcium 9.0 Total Bilirubin 0.3 AST 13 ALT 11 Alkaline Phosphatase 79 Total Protein 5.1 L Albumin 2.9 L Stool Leukocytes, Qual NEGATIVE C. difficile Tox B Gene NEGATIVE Blood Type Antibody Screen Crossmatch ([facility]) Microbiology Microbiology Results: Microbiology 04/17/21 08:27 Sputum - Suctioned Gram Stain - Final 04/17/21 08:27 Sputum - Suctioned Sputum Culture - Final Proteus mirabilis 04/19/21 Unknown Urine Catheterized - Witt Catheter Urine Culture - Final No growth. 04/17/21 00:40 Urine Catheterized - Witt Catheter Urine Culture - Final Proteus mirabilis 04/17/21 00:56 Blood - Venous Blood Culture - Preliminary No growth after 48 hours. 04/17/21 01:00 Blood - Venous Blood Culture - Preliminary No growth after 48 hours. 04/02/21 13:20 Sputum - Suctioned Gram Stain - Final 04/02/21 13:20 Sputum - Suctioned Sputum Culture - Final Methicillin Res Staph Aureus 03/24/21 16:49 Blood - Central Line Blood Culture - Final No growth after 5 days. 03/24/21 16:49 Blood - Central Line Blood Culture - Final No growth after 5 days. 03/24/21 16:50 Urine Catheterized - Witt Catheter Urine Culture - Final No growth. 03/18/21 19:37 Blood - Venous Blood Culture - Final No growth after 5 days. 03/18/21 19:37 Blood - Venous Blood Culture - Final Quality Stroke Does the patient have a stroke diagnosis?: No VTE Prior VTE?: No VTE Risk Level:: Medical - moderate - high VTE Device Contraindication: Treatment Not Indicated VTE Drug Contraindication: N/A - Med Ordered Critical Care Time Critical Care Time (minutes): 60
[2021-04-20] MEDS: fentaNYL citrate/PF 100 MCG/2 ML VIAL 50 MCG IVPUSH (17:51)
[2021-04-20] MEDS: cefTRIAXone sodium 1 GM in 0.9 % Sodium Chloride 50 ML IV (20:14)
[2021-04-20 23:56] LABS: Glucose, Whole Blood 116 mg/dL (60-115)
[2021-04-21] VITALS (31 sets, daily range): BP systolic 104–148; BP diastolic 61–95; PULSE 98–120; RESP 10–27; TEMP 33.9–38.3; O2SAT 95–99; BMI 35.4
[2021-04-21] MEDS: Sodium Bicarbonate 650 MG TABLET G-TUBE ×4 (01:54→21:13)
[2021-04-21] MEDS: Metoprolol Tartrate 25 MG TABLET PO ×3 (04:57→20:52)
[2021-04-21 05:25] LABS: VBG HCO3 17 mmol/L (22-26); VBG pCO2 27 mmHg; VBG pO2 42 mmHg
[2021-04-21 05:30] LABS: Glucose, Whole Blood 95 mg/dL (60-115)
[2021-04-21 05:34] LABS: Venous Blood Gas Refer to POC result
[2021-04-21 05:38] LABS: Hematocrit 26.1 % (37.0-47.0); Hemoglobin 8.1 g/dl (12.0-16.0); Mean Corpuscular Volume 90.3 fL (80.0-98.0); Mean Platelet Volume 9.1 fL (9.4-12.3); Platelet Count 312 X10*3/uL (160-400); Red Blood Count 2.89 X10*6/uL (4.20-5.50); Red Cell Distribution Width 17.2 % (11.0-16.0); White Blood Count 10.7 X10*3/uL (4.8-10.8)
[2021-04-21 06:12] LABS: Alanine Aminotransferase 15 U/L (0-31); Albumin Level 3.1 g/dL (3.5-5.0); Alkaline Phosphatase 109 U/L (39-117); Anion Gap 17 (12-20); Aspartate Amino Transferase 16 U/L (5-31); Bilirubin Total 0.3 mg/dL (0.0-1.0); Blood Urea Nitrogen 65 mg/dL (9-16); Calcium 9.3 mg/dL (8.4-10.2); Carbon Dioxide 18 mmol/L (22-29); Chloride 108 mmol/L (96-108); Creatinine Clr Calc Pharmacy 15.6; Estimated Glomerular Filt Rate 10; Glucose Random 107 mg/dL (60-115); Potassium 4.2 mmol/L (3.3-5.1); Sodium 139 mmol/L (135-145); Total Protein 5.5 g/dL (6.5-8.0)
--- NOTE | 2021-04-21 06:43 | PC.NURSE ---
HGB LOW 7.0. PROVIDER EFREM MCCORMICK NOTIFIED. STOOL FOR OB OBTAINED AND IS NEGATIVE. PT TYPED AND SCREENED. TO RECEIVE 1 UNIT PRBC'S.
[2021-04-21] MEDS: cloNIDine HCL 0.2 MG TABLET PO ×3 (07:52→23:53)
[2021-04-21] MEDS: Famotidine 20 MG TABLET PO (07:52)
[2021-04-21] MEDS: Cholestyramine (With Sugar) 4 GM POWD.PACK 8 GM PO ×2 (07:52→20:52)
[2021-04-21] MEDS: Chlorhexidine Gluc Oral Rinse 15 ML MOUTHWASH BUCCAL ×2 (07:52→14:34)
[2021-04-21] MEDS: clonazePAM 0.5 MG TABLET PO ×2 (07:52→14:34)
[2021-04-21] MEDS: Heparin Sodium,Porcine 5,000 UNIT/ML VIAL 5000 UNIT SUBCUT ×2 (07:52→20:53)
--- NOTE | 2021-04-21 10:04 | MHC.CLN ---
F/U PT WITH INCREASED NUTRITION RISK R/T PRESSURE INJURIES DISCUSSED AT ROUNDS WITH PT RECEIVING PROMOTE AT MAX GOAL RATE 60ML/HR WITH 120ML FWF Q 6HRS PROVIDES 1440KCALS (21KCALS/KG BASED ON CMW), 90G PROTEIN (1.3G/KG), 1688CC TOTAL FREE WATER FROM FORMULA AND FLUSHES (25ML/KG) MONITOR RENAL INDICES CLOSELY WITH INCREASE IN PO PROTEIN CONTINUE TO MONITOR TOLERANCE, RESIDUALS AND LYTES
--- NOTE | 2021-04-21 12:11 | PC.NURSE ---
Witt catheter pulled at [address] without [address]. Patient DTV by 1800.
--- NOTE | 2021-04-21 13:33 | MHC.SL.SOA ---
Referring Provider: Dr. Han Reason for Referral: Provide means of communication Date of Plan of Treatment:04/17/21 Onset of Symptoms/Illness:04/17/21 Date Treatment Started:04/17/21 Medical Diagnosis:Pt is status post tracheostomy, after extended period of hospitalization and intubation. Pt also w/high flow oxygen support, to early for speaking valve placement. Pt requires alt/aug system of communication at this time. Primary Speech Language Diagnosis:R49.9 Unspecified voice Secondary Speech Language Diagnosis: Number of Authorized Visits Remaining: Authorization End Date: Reason for Visit:[id number] Individual Treatment Other: Subjective:Pt was awake when PROJECT DEVELOPMENT ENGINEER entered room but was then noted to close eyes. Indicated to PT that I was going to raise the head of bed using communication board. Pt continues to attempt to speak at habitual pace, needed ample cueing including visual prompt to slow and over articulate speech in order for others to lip read. Pt expressed through attempts at lip reading that she wanted to rest and it was apparent she was not motivated to participate in therapy today. Objective: Goal #1: Pt was able to lift hand when cued today, but when asked to move hand to indicate choice on selection board needed full assist and moved hand minimally even when proximal to predicted choice. Pt had indicated low motivation for today's session. Goal #2: Pt spontaneously used speech to try to communicate, but tends to speak rapidly, with minimal lip movement. Pt was directly cued, with direct demonstration and prompts to slow speech and over articulate. In response, TXist able to eventually lip read that Pt said Shut the up. and that she wanted to rest. Session was limited by PTs motivation today. Assessment:Pt is status post tracheostomy after extended period on ventilator. 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 Pt additionally has very limited movement of upper extremities due to severe muscle wasting from extended period of intubation. Pt is attempting to communicate by speaking, speech at this time requires lip reading. Pt requires cuing to slow and over pronounce words to facilitate lip reading, and on todays session, Pt was having difficulty following this cuing. Pt was given communication board to communicate basic needs and y/n responses. On evaluation, at this time, communication board has limited use to to limited movement of upper extremeties (Pt cannot initiate pointing, can only indicate y/n choice if hand is positioned in close proximity to choice). Pt will need ongoing assessment and specific training/cuing for using exaggerated speech in order for others to lip read, and for appropriate basic augmentative communication system (e.g. continue to assess mobility issues needed for AC). Notes: Plan: Goal # : Pt will access and use communication board with improvement of upper limb function and dexterity, initiating communication with 80% accuracy. Status of Goal: Goal Continued Goal # : Pt will slow speech and overarticulate in order to facilitate lip reading, with fading of direct cuing, w/80% accuracy. Status of Goal: Goal Continued Goal # : Status of Goal: Goal # : Status of Goal: Seen by: Graduate/Clinical Fellow: No Supervisory Statement: f_Reg Query Last Value , MHC.AU.SIGNATUR Speech Language Pathologist: Juju Shanks M.A., CCC-PROJECT DEVELOPMENT ENGINEER
--- NOTE | 2021-04-21 14:20 | PM.PNNEP ---
Subjective Subjective Date of Service: 04/21/21 Interval history: Seen and examined, events noted Physical Exam Vital Signs: Vital Signs: Last Vital Signs Temp 100.9 F H 04/21/21 12:00 Pulse 106 H 04/21/21 13:00 Resp 21 H 04/21/21 13:00 BP 138/79 04/21/21 13:00 Pulse Ox 98 04/21/21 13:00 BMI result Body Mass Index 35.4 Const: General: no acute distress Resp: Auscultation: diminished lung sounds Cardio: Rate: regular rate GI: Palpation (GI): Soft to palpation Extrem: Other: edema Objective Data Labs CBC & Chem 7: 04/21/21 05:18 04/21/21 05:18 Labs: Laboratory Results - last 24 hr 04/20/21 04/21/21 04/21/21 23:50 05:17 05:18 WBC 10.7 RBC 2.89 L Hgb 8.1 L Hct 26.1 L MCV 90.3 MCH 28.0 MCHC 31.0 RDW 17.2 H Plt Count 312 MPV 9.1 L Absolute Nucleated RBC 0.000 Nucleated RBC % (auto) 0.0 VBG pH 7.40 VBG pCO2 27 VBG pO2 42 VBG HCO3 17 L VBG O2 Saturation 72.0 VBG Base Excess -6.0 Sodium Potassium Chloride Carbon Dioxide Anion Gap BUN Creatinine Estim Creat Clear Calc Estimated GFR POC Glucose 116 H Random Glucose Calcium Phosphorus Magnesium Total Bilirubin AST ALT Alkaline Phosphatase Total Protein Albumin 04/21/21 04/21/21 05:18 05:27 WBC RBC Hgb Hct MCV MCH MCHC RDW Plt Count MPV Absolute Nucleated RBC Nucleated RBC % (auto) VBG pH VBG pCO2 VBG pO2 VBG HCO3 VBG O2 Saturation VBG Base Excess Sodium 139 Potassium 4.2 Chloride 108 Carbon Dioxide 18 L Anion Gap 17 BUN 65 H Creatinine 4.34 H* Estim Creat Clear Calc 15.6 Estimated GFR 10 POC Glucose 95 Random Glucose 107 Calcium 9.3 Phosphorus 4.0 Magnesium 2.0 Total Bilirubin 0.3 AST 16 ALT 15 Alkaline Phosphatase 109 D Total Protein 5.5 L Albumin 3.1 L Microbiology Microbiology Results: Microbiology 04/17/21 08:27 Sputum - Suctioned Gram Stain - Final 04/17/21 08:27 Sputum - Suctioned Sputum Culture - Final Proteus mirabilis 04/19/21 Unknown Urine Catheterized - Witt Catheter Urine Culture - Final No growth. 04/17/21 00:40 Urine Catheterized - Witt Catheter Urine Culture - Final Proteus mirabilis 04/17/21 00:56 Blood - Venous Blood Culture - Preliminary No growth after 48 hours. 04/17/21 01:00 Blood - Venous Blood Culture - Preliminary No growth after 48 hours. 04/02/21 13:20 Sputum - Suctioned Gram Stain - Final 04/02/21 13:20 Sputum - Suctioned Sputum Culture - Final Methicillin Res Staph Aureus 03/24/21 16:49 Blood - Central Line Blood Culture - Final No growth after 5 days. 03/24/21 16:49 Blood - Central Line Blood Culture - Final No growth after 5 days. 03/24/21 16:50 Urine Catheterized - Witt Catheter Urine Culture - Final No growth. 03/18/21 19:37 Blood - Venous Blood Culture - Final No growth after 5 days. 03/18/21 19:37 Blood - Venous Blood Culture - Final Procedures Date of Service Date of Service: 04/21/21 Assessment & Plan Assessment and plan (1) CKD (chronic kidney disease) stage 4, GFR 15-29 ml/min: Status: Acute Assessment and Plan: JOAN superimposed on CKD CKD 4 with baseline serum creatinine of 2.5-3.0 No indication for HD now (Temp Hd cath removed d/t fever and last HD was 04/15) C/W diuresis /supportive care. Shall F/U closely Time Spent With Patient Time: Total time spent is greater than 50% in coordination of care (as documented) at patient's floor/unit and/or counseling patient: Progress Note: Quality Stroke Does the patient have a stroke diagnosis?: No
--- NOTE | 2021-04-21 14:32 | MHC.CM.PN ---
Pt awake, alert, mouthing responses to questions. Informed pt about potential transfer to [facility] in 1-2 days. Pt states she is nervous and not ready. Explained the need for her to begin PT/OT/SPEECH for optimal outcomes. Pt mouthed, I'm scared Call placed to pt's S.O. and HCP, James: message left - hoping he could visit and reassure pt on transition to next level of care. Call placed to dtr Anabel: message left requested a callback to update on d/c plan. [facility] can accept pt when her tmax is less than 100 F. Today, pt was 100.9. Rogers culture results negative. MD and RN aware of plan. CM to follow for transfer
[2021-04-21] MEDS: Sulfameth/Trimet 800/160/20 ML 20 ML ORAL.SUSP 10 ML PO (16:31)
--- NOTE | 2021-04-21 17:42 | P.PNCC_ITS ---
Subjective Subjective Date of Service: 04/21/21 Interval History: 60-year-old obese female with obstructive sleep apnea and COPD and radiation only treated lung CA 2 years thus far of remission presents with COVID pneumonia and acute hypoxic respiratory failure finally wean to a tracheostomy and is just on a modest amount of pressure support and 18/5 and she had acute on on chronic renal failure but a baseline stage IV renal failure and she is finally free of dialysis with removal of the dialysis catheter initially grew pure Staph indicating a secondary bacterial pneumonia and then both urine and sputum grew Proteus and she has been on a cephalosporin with continuous low-grade te mperature but being nontoxic with no progressive white count no fever spikes and no rash and then eventually stopping the cephalosporin fever 1 away and were just going to try to maintain her for now on on Bactrim and to cover that organism and others and she has regained cognitive function and therefore I think remains a good candidate currently for discharge to an LTAC Critical Care Time (minutes): 60 Physical Exam Vital Signs: Vital Signs: Last Vital Signs Temp 100.1 F 04/21/21 16:00 Pulse 120 H 04/21/21 17:00 Resp 20 04/21/21 17:00 BP 144/81 H 04/21/21 17:00 Pulse Ox 96 04/21/21 17:00 BMI result Body Mass Index 35.4 awake with good cognitive function and nonfocal neurologically intake and output are equal with normal potassium so she is back to a stage IV ring and very advanced renal disease but compensated without dialysis abdomen benign and no neck vein distension bedside ultrasound of lower extremities fails to reveal any deep vein thrombosis Objective Data Labs CBC & Chem 7: 04/22/21 05:25 04/22/21 05:25 Labs: Laboratory Results - last 24 hr 04/20/21 04/21/21 04/21/21 23:50 05:17 05:18 WBC 10.7 RBC 2.89 L Hgb 8.1 L Hct 26.1 L MCV 90.3 MCH 28.0 MCHC 31.0 RDW 17.2 H Plt Count 312 MPV 9.1 L Absolute Nucleated RBC 0.000 Nucleated RBC % (auto) 0.0 VBG pH 7.40 VBG pCO2 27 VBG pO2 42 VBG HCO3 17 L VBG O2 Saturation 72.0 VBG Base Excess -6.0 Sodium Potassium Chloride Carbon Dioxide Anion Gap BUN Creatinine Estim Creat Clear Calc Estimated GFR POC Glucose 116 H Random Glucose Calcium Phosphorus Magnesium Total Bilirubin AST ALT Alkaline Phosphatase Total Protein Albumin 04/21/21 04/21/21 05:18 05:27 WBC RBC Hgb Hct MCV MCH MCHC RDW Plt Count MPV Absolute Nucleated RBC Nucleated RBC % (auto) VBG pH VBG pCO2 VBG pO2 VBG HCO3 VBG O2 Saturation VBG Base Excess Sodium 139 Potassium 4.2 Chloride 108 Carbon Dioxide 18 L Anion Gap 17 BUN 65 H Creatinine 4.34 H* Estim Creat Clear Calc 15.6 Estimated GFR 10 POC Glucose 95 Random Glucose 107 Calcium 9.3 Phosphorus 4.0 Magnesium 2.0 Total Bilirubin 0.3 AST 16 ALT 15 Alkaline Phosphatase 109 D Total Protein 5.5 L Albumin 3.1 L Microbiology Microbiology Results: Microbiology 04/17/21 08:27 Sputum - Suctioned Gram Stain - Final 04/17/21 08:27 Sputum - Suctioned Sputum Culture - Final Proteus mirabilis 04/19/21 Unknown Urine Catheterized - Witt Catheter Urine Culture - Final No growth. 04/17/21 00:40 Urine Catheterized - Witt Catheter Urine Culture - Final Proteus mirabilis 04/17/21 00:56 Blood - Venous Blood Culture - Preliminary No growth after 48 hours. 04/17/21 01:00 Blood - Venous Blood Culture - Preliminary No growth after 48 hours. 04/02/21 13:20 Sputum - Suctioned Gram Stain - Final 04/02/21 13:20 Sputum - Suctioned Sputum Culture - Final Methicillin Res Staph Aureus 03/24/21 16:49 Blood - Central Line Blood Culture - Final No growth after 5 days. 03/24/21 16:49 Blood - Central Line Blood Culture - Final No growth after 5 days. 03/24/21 16:50 Urine Catheterized - Witt Catheter Urine Culture - Final No growth. 03/18/21 19:37 Blood - Venous Blood Culture - Final No growth after 5 days. 03/18/21 19:37 Blood - Venous Blood Culture - Final Progress Note: A&P Assessment and plan (1) Failure to wean from mechanical ventilation: Status: Acute (2) Lung cancer: Status: Acute (3) O2 dependent: Status: Acute (4) Respiratory failure: Status: Acute (5) Restrictive lung disease: Status: Acute (6) COPD (chronic obstructive pulmonary disease): Status: Acute (7) COVID-19: Status: Acute (8) Acute respiratory failure with hypoxia: Status: Acute (9) Acute respiratory distress: Status: Acute (10) Aspiration into airway: Status: Acute (11) Pneumonia: Status: Acute (12) LEO (obstructive sleep apnea): Status: Acute (13) Metabolic encephalopathy: Status: Acute (14) JOAN (acute kidney injury): Status: Acute (15) Anemia in chronic kidney disease: Status: Acute (16) CKD (chronic kidney disease) stage 4, GFR 15-29 ml/min: Status: Acute (17) Acute on chronic systolic (congestive) heart failure: Status: Acute (18) Drug induced fever: Status: Acute Plan at this point she is no longer dialysis dependent intake and output are even potassium is well maintained she is on oral bicarb to compensate for her renal tubular acidosis which is hyperchloremic and we just need to stop the cephalosporin and if the fever dissipates maintain her on Bactrim for the completion of her therapy and then hopefully discharge to LTAC Quality Stroke Does the patient have a stroke diagnosis?: No VTE Prior VTE?: No VTE Risk Level:: Medical - moderate - high VTE Device Contraindication: Treatment Not Indicated VTE Drug Contraindication: N/A - Med Ordered
[2021-04-21] MEDS: Acetaminophen Oral Liquid 650 MG/20.3 ML SOLUTION PO (20:52)
[2021-04-21] MEDS: LORazepam 2 MG/ML VIAL 0.5 MG IVPUSH (21:00)
[2021-04-22] VITALS (31 sets, daily range): BP systolic 94–140; BP diastolic 53–97; PULSE 88–120; RESP 9–38; TEMP 34.1–37.2; O2SAT 34–100; BMI 35.4
[2021-04-22] MEDS: LORazepam 2 MG/ML VIAL 0.5 MG IVPUSH (02:50)
[2021-04-22] MEDS: Sodium Bicarbonate 650 MG TABLET G-TUBE ×4 (04:06→20:43)
[2021-04-22] MEDS: Metoprolol Tartrate 25 MG TABLET PO ×3 (04:06→20:43)
[2021-04-22 05:40] LABS: Hematocrit 26.6 % (37.0-47.0); Hemoglobin 8.3 g/dl (12.0-16.0); Mean Corpuscular HGB Conc 31.2 g/dl (31.0-35.0); Mean Corpuscular Volume 89.9 fL (80.0-98.0); NRBC Pct Auto 0.2 /100WBC (0.0-0.2); Platelet Count 282 X10*3/uL (160-400); Red Blood Count 2.96 X10*6/uL (4.20-5.50); Red Cell Distribution Width 17.2 % (11.0-16.0); White Blood Count 10.7 X10*3/uL (4.8-10.8)
[2021-04-22 05:57] LABS: Alanine Aminotransferase 18 U/L (0-31); Albumin Level 3.2 g/dL (3.5-5.0); Alkaline Phosphatase 109 U/L (39-117); Anion Gap 20 (12-20); Aspartate Amino Transferase 19 U/L (5-31); Bilirubin Direct 0.2 mg/dL (0.0-0.5); Bilirubin Total 0.3 mg/dL (0.0-1.0); Blood Urea Nitrogen 67 mg/dL (9-16); Calcium 9.4 mg/dL (8.4-10.2); Carbon Dioxide 16 mmol/L (22-29); Chloride 109 mmol/L (96-108); Creatinine Clr Calc Pharmacy 15.7; Estimated Glomerular Filt Rate 11; Glucose Random 106 mg/dL (60-115); Magnesium 1.9 mg/dL (1.6-2.6); Phosphorus 3.9 mg/dL (2.7-4.5); Potassium 4.5 mmol/L (3.3-5.1); Sodium 140 mmol/L (135-145); Total Protein 5.6 g/dL (6.5-8.0)
[2021-04-22 06:19] LABS: Band Neutrophils Percent 5 % (3-5); Eosinophils Absolute Manual 0.2 X10*3/uL (0.0-0.4); Eosinophils Percent Manual 2 % (0-4); Lymphocytes Percent Manual 19 % (20-40); Metamyelocytes Absolute 0.3 X10*3/uL; Metamyelocytes Percent 3 %; Monocytes Absolute Manual 0.7 X10*3/uL (0.1-1.2); Monocytes Percent Manual 7 % (2-11); Myelocytes Absolute 0.4 X10*/uL; Myelocytes Percent 4 %; Neutrophils Percent Manual 60 % (45-73)
[2021-04-22 06:21] LABS: Macrocytosis 1+ (5-14) /OIF; RBC Morphology NOTED
[2021-04-22 06:22] LABS: Burr Cells 1+ (0-2) /OIF; Ovalocytes 1+ (5-14) /OIF
[2021-04-22 06:23] LABS: Platelet Estimate NORMAL (NORMAL); Platelet Morphology Comment NORMAL; Polychromasia 1+ (0-2) /OIF; Schistocytes 1+ (0-2) /OIF
[2021-04-22 07:30] LABS: VBG HCO3 16 mmol/L (22-26); VBG pCO2 26 mmHg; VBG pO2 49 mmHg
[2021-04-22 08:00] LABS: Venous Blood Gas Refer to POC result
[2021-04-22] MEDS: cloNIDine HCL 0.2 MG TABLET PO ×2 (08:18→14:15)
[2021-04-22] MEDS: Cholestyramine (With Sugar) 4 GM POWD.PACK 8 GM PO (08:19)
[2021-04-22] MEDS: Heparin Sodium,Porcine 5,000 UNIT/ML VIAL 5000 UNIT SUBCUT ×2 (08:19→20:43)
[2021-04-22] MEDS: Sulfameth/Trimet 800/160/20 ML 20 ML ORAL.SUSP 10 ML PO ×2 (08:19→20:43)
[2021-04-22] MEDS: Loperamide HCl Oral Liquid 2 MG/15 ML LIQUID PO (09:47)
--- NOTE | 2021-04-22 10:06 | PM.PNNEP ---
Subjective Subjective Date of Service: 04/22/21 Interval history: Seen AM. Events noted. All recent data reviewed Physical Exam Vital Signs: Vital Signs: Last Vital Signs Temp 98.6 F 04/22/21 08:00 Pulse 88 04/22/21 09:00 Resp 38 H 04/22/21 09:00 BP 140/84 H 04/22/21 09:00 Pulse Ox 95 04/22/21 09:00 BMI result Body Mass Index 35.4 Const: Other: Trac; On Vent General: no acute distress Resp: Auscultation: diminished lung sounds Cardio: Rate: regular rate GI: Palpation (GI): Soft to palpation Extrem: Other: No edema Objective Data Labs CBC & Chem 7: 04/22/21 05:25 04/22/21 05:25 Labs: Laboratory Results - last 24 hr 04/22/21 04/22/21 04/22/21 05:25 05:25 05:26 WBC 10.7 RBC 2.96 L Hgb 8.3 L Hct 26.6 L MCV 89.9 MCH 28.0 MCHC 31.2 RDW 17.2 H Plt Count 282 MPV 9.0 L Immature Gran % (Auto) Cancelled Neut % (Auto) Cancelled Lymph % (Auto) Cancelled [place] % (Auto) Cancelled Eos % (Auto) Cancelled Baso % (Auto) Cancelled Lymph # (Auto) Cancelled [place] # (Auto) Cancelled Eos # (Auto) Cancelled Baso # (Auto) Cancelled Abs Immat Gran (auto) Cancelled Absolute Neuts (auto) Cancelled Absolute Nucleated RBC 0.020 H Nucleated RBC % (auto) 0.2 Neutrophils % (Manual) 60 Band Neutrophils % 5 Lymphocytes % (Manual) 19 L Monocytes % (Manual) 7 Eosinophils % (Manual) 2 Metamyelocytes % 3 Myelocytes % 4 Abs Neuts (Manual) 7.0 Lymphocytes # (Manual) 2.0 Monocytes # (Manual) 0.7 Eosinophils # (Manual) 0.2 Metamyelocytes # 0.3 Myelocytes # 0.4 Platelet Estimate NORMAL Plt Morphology Comment NORMAL RBC Morphology NOTED Polychromasia 1+ (0-2) Macrocytosis 1+ (5-14) Ovalocytes 1+ (5-14) Abi Cells 1+ (0-2) Schistocytes 1+ (0-2) VBG pH 7.40 VBG pCO2 26 VBG pO2 49 VBG HCO3 16 L VBG O2 Saturation 80.0 VBG Base Excess -7.0 Sodium 140 Potassium 4.5 Chloride 109 H Carbon Dioxide 16 L Anion Gap 20 BUN 67 H Creatinine 4.31 H* Estim Creat Clear Calc 15.7 Estimated GFR 11 Random Glucose 106 Calcium 9.4 Phosphorus 3.9 Magnesium 1.9 Total Bilirubin 0.3 Direct Bilirubin 0.2 AST 19 ALT 18 Alkaline Phosphatase 109 Total Protein 5.6 L Albumin 3.2 L Microbiology Microbiology Results: Microbiology 04/17/21 00:56 Blood - Venous Blood Culture - Final No growth after 5 days. 04/17/21 01:00 Blood - Venous Blood Culture - Final No growth after 5 days. 04/17/21 08:27 Sputum - Suctioned Gram Stain - Final 04/17/21 08:27 Sputum - Suctioned Sputum Culture - Final Proteus mirabilis 04/19/21 Unknown Urine Catheterized - Witt Catheter Urine Culture - Final No growth. 04/17/21 00:40 Urine Catheterized - Witt Catheter Urine Culture - Final Proteus mirabilis 04/02/21 13:20 Sputum - Suctioned Gram Stain - Final 04/02/21 13:20 Sputum - Suctioned Sputum Culture - Final Methicillin Res Staph Aureus 03/24/21 16:49 Blood - Central Line Blood Culture - Final No growth after 5 days. 03/24/21 16:49 Blood - Central Line Blood Culture - Final No growth after 5 days. 03/24/21 16:50 Urine Catheterized - Witt Catheter Urine Culture - Final No growth. 03/18/21 19:37 Blood - Venous Blood Culture - Final No growth after 5 days. 03/18/21 19:37 Blood - Venous Blood Culture - Final Procedures Date of Service Date of Service: 04/22/21 Assessment & Plan Assessment and plan (1) JOAN (acute kidney injury): Status: Acute Assessment and Plan: JOAN superimposed on CKD CKD 4 with baseline serum creatinine of? 2.5-3.0 No indication for HD now. Metabollically acidotic- On NaHCO3 (Temp Hd cath removed d/t fever and last HD was 04/15) C/W diuresis PRN & supportive care. Shall F/U closely Time Spent With Patient Time: Total time spent is greater than 50% in coordination of care (as documented) at patient's floor/unit and/or counseling patient: Progress Note: Quality Stroke Does the patient have a stroke diagnosis?: No
--- NOTE | 2021-04-22 10:27 | MHC.CLN ---
F/U DISCUSSED AT ROUNDS WITH PT CONTINUES WITH LIQUID FREQUENT LOOSE STOOLS PT RECEIVING PROMOTE AT MAX GOAL RATE 60ML/HR WITH 120ML FWF Q 6HRS PROVIDES 1440KCALS, 90G PROTEIN, 1688CC TOTAL FREE WATER FROM FORMULA AND FLUSHES RECOMMEND CHANGING TF FORMULA TO NEPRO AT MAX GOAL RATE 45ML/HR WITH 300ML FREE WATER FLUSHES Q SHIFT TO PROVIDE 1944KCALS, 87G PROTEIN, 1685MLTOTAL WATER FROM FORMULA AND FLUSHES CONTINUE TO MONITOR TOLERANCE, RESIDUALS AND LYTES
[2021-04-22] MEDS: clonazePAM 0.5 MG TABLET G-TUBE (11:48)
--- NOTE | 2021-04-22 14:45 | P.PNCC_ITS ---
Subjective Subjective Date of Service: 04/22/21 Interval History: 60-year-old obese female underlying lung cancer apparently disease free for 2 years treated with radiation underlying COPD with component of sleep apnea presented with hypoxic respiratory failure from COVID-19 pneumonitis and remained ventilator dependent and now status post tracheostomy and all signs of initial encephalopathy or cleared she has got normal cognitive function and her acute on chronic renal failure that rendered her dialysis dependent were now 8 days free of dialysis catheter was discontinued she had secondary bacterial pneumonia 1st Staph and that was treated with vancomycin and then the current infection at least a week into ceftriaxone for Proteus both in sputum and in urine and because of continued low-grade temperature and no signs of toxicity and negative ultrasound of her periphery for DVT I stopped the cephalosporin and the fever went away so probably a drug fever and she is currently on Bactrim she has been fed but the promote seemed to be generating profuse diarrhea which is exacerbating a stage II decubitus ulcer on the coccyx so we switched the product to Nepro with protein supplement to see if the diarrhea with subside Critical Care Time (minutes): 45 Physical Exam Vital Signs: Vital Signs: Last Vital Signs Temp 98.4 F 04/22/21 12:00 Pulse 96 04/22/21 13:00 Resp 16 04/22/21 13:00 BP 123/83 04/22/21 13:00 Pulse Ox 97 04/22/21 13:00 BMI result Body Mass Index 35.4 awake with good cognitive function and nonfocal neurologically bedside echo shows a repair of function of the original cardiomyopathy ejection fraction improving from 30-50% and in sinus rhythm abdomen benign soft with no organomegaly stage II coccyx do decubitus ulcer rest of the skin otherwise intact Objective Data Labs CBC & Chem 7: 04/22/21 05:25 04/22/21 05:25 Labs: Laboratory Results - last 24 hr 04/22/21 04/22/21 04/22/21 05:25 05:25 05:26 WBC 10.7 RBC 2.96 L Hgb 8.3 L Hct 26.6 L MCV 89.9 MCH 28.0 MCHC 31.2 RDW 17.2 H Plt Count 282 MPV 9.0 L Immature Gran % (Auto) Cancelled Neut % (Auto) Cancelled Lymph % (Auto) Cancelled [place] % (Auto) Cancelled Eos % (Auto) Cancelled Baso % (Auto) Cancelled Lymph # (Auto) Cancelled [place] # (Auto) Cancelled Eos # (Auto) Cancelled Baso # (Auto) Cancelled Abs Immat Gran (auto) Cancelled Absolute Neuts (auto) Cancelled Absolute Nucleated RBC 0.020 H Nucleated RBC % (auto) 0.2 Neutrophils % (Manual) 60 Band Neutrophils % 5 Lymphocytes % (Manual) 19 L Monocytes % (Manual) 7 Eosinophils % (Manual) 2 Metamyelocytes % 3 Myelocytes % 4 Abs Neuts (Manual) 7.0 Lymphocytes # (Manual) 2.0 Monocytes # (Manual) 0.7 Eosinophils # (Manual) 0.2 Metamyelocytes # 0.3 Myelocytes # 0.4 Platelet Estimate NORMAL Plt Morphology Comment NORMAL RBC Morphology NOTED Polychromasia 1+ (0-2) Macrocytosis 1+ (5-14) Ovalocytes 1+ (5-14) [place] Cells 1+ (0-2) Schistocytes 1+ (0-2) VBG pH 7.40 VBG pCO2 26 VBG pO2 49 VBG HCO3 16 L VBG O2 Saturation 80.0 VBG Base Excess -7.0 Sodium 140 Potassium 4.5 Chloride 109 H Carbon Dioxide 16 L Anion Gap 20 BUN 67 H Creatinine 4.31 H* Estim Creat Clear Calc 15.7 Estimated GFR 11 Random Glucose 106 Calcium 9.4 Phosphorus 3.9 Magnesium 1.9 Total Bilirubin 0.3 Direct Bilirubin 0.2 AST 19 ALT 18 Alkaline Phosphatase 109 Total Protein 5.6 L Albumin 3.2 L Microbiology Microbiology Results: Microbiology 04/17/21 00:56 Blood - Venous Blood Culture - Final No growth after 5 days. 04/17/21 01:00 Blood - Venous Blood Culture - Final No growth after 5 days. 04/17/21 08:27 Sputum - Suctioned Gram Stain - Final 04/17/21 08:27 Sputum - Suctioned Sputum Culture - Final Proteus mirabilis 04/19/21 Unknown Urine Catheterized - Witt Catheter Urine Culture - Final No growth. 04/17/21 00:40 Urine Catheterized - Witt Catheter Urine Culture - Final Proteus mirabilis 04/02/21 13:20 Sputum - Suctioned Gram Stain - Final 04/02/21 13:20 Sputum - Suctioned Sputum Culture - Final Methicillin Res Staph Aureus 03/24/21 16:49 Blood - Central Line Blood Culture - Final No growth after 5 days. 03/24/21 16:49 Blood - Central Line Blood Culture - Final No growth after 5 days. 03/24/21 16:50 Urine Catheterized - Witt Catheter Urine Culture - Final No growth. 03/18/21 19:37 Blood - Venous Blood Culture - Final No growth after 5 days. 03/18/21 19:37 Blood - Venous Blood Culture - Final Progress Note: A&P Assessment and plan (1) Drug induced fever: Status: Acute (2) Failure to wean from mechanical ventilation: Status: Acute (3) Lung cancer: Status: Acute (4) O2 dependent: Status: Acute (5) Respiratory failure: Status: Acute (6) Restrictive lung disease: Status: Acute (7) COPD (chronic obstructive pulmonary disease): Status: Acute (8) COVID-19: Status: Acute (9) Acute respiratory failure with hypoxia: Status: Acute (10) Acute respiratory distress: Status: Acute (11) Aspiration into airway: Status: Acute (12) Pneumonia: Status: Acute (13) LEO (obstructive sleep apnea): Status: Acute (14) Metabolic encephalopathy: Status: Acute (15) Acute on chronic systolic (congestive) heart failure: Status: Acute (16) CKD (chronic kidney disease) stage 4, GFR 15-29 ml/min: Status: Acute (17) Anemia in chronic kidney disease: Status: Acute (18) JOAN (acute kidney injury): Status: Acute (19) Hypokalemia: Status: Acute (20) Tubulovillous adenoma of large intestine: Status: Acute (21) Pressure injury of sacral region, stage 2: Status: Acute (22) Acute blood loss anemia: Status: Acute (23) Uremia: Status: Acute (24) Osteoarthritis of ankles, bilateral: Status: Acute (25) Vitamin D deficiency: Status: Acute (26) Elevated troponin: Status: Acute Plan so we are on a pressure support mechanism via the tracheostomy at 18 over 5 generating good tidal volumes comfortable respiratory effort clearing secondary Proteus infection on Bactrim currently status post drug fever from cephalosporin and she is no longer dialysis dependent though were of course remaining is stage IV renal failure and cardiomyopathy has repaired to a 50% ejection fraction encephalopathy is repaired with restored cognitive function and tolerating her her feedings metabolically normal ready for discharge at this point to an LTAC and hopefully within [address] Quality Stroke Does the patient have a stroke diagnosis?: No VTE Prior VTE?: No VTE Risk Level:: Medical - moderate - high VTE Device Contraindication: Treatment Not Indicated VTE Drug Contraindication: N/A - Med Ordered
--- NOTE | 2021-04-22 15:11 | MHC.CM.PN ---
Pt continues to do well with vent / trach weaning: [facility] likely [facility] pt on 04/23 at 2:30pm: [facility] tentatively arranged. MD and RN aware of transfer plan. Call placed to pt's HCP/SJohn Ramirez: he is aware of plan and in agreement. He was able to visit with pt today in the am. CM to follow for transfer on 04/23
--- NOTE | 2021-04-22 16:49 | MHC.SL.SOA ---
Referring Provider: Dr. Han Reason for Referral: Provide means of communication Date of Plan of Treatment:04/17/21 Onset of Symptoms/Illness:04/17/21 Date Treatment Started:04/17/21 Medical Diagnosis:Pt is status post tracheostomy, after extended period of hospitalization and intubation. Pt also w/high flow oxygen support, to early for speaking valve placement. Pt requires alt/aug system of communication at this time. Primary Speech Language Diagnosis:R49.9 Unspecified voice Secondary Speech Language Diagnosis: Number of Authorized Visits Remaining: Authorization End Date: Reason for Visit:[id number] Individual Treatment Other: Subjective:Attempted to see PT X2 in a.m. but Pt was sleeping. In pm Pt was awake, but appeared agitated. Nursing reported that PT had been in a highly anxious state today. Pt was frequently attempting to verbalize in lengthy sentences which were difficult to lip read, but included The DrMiranda said......... and frequently I want to go home and I want to get out of here and I need to go to the bathroom. Pt briefly cooperated with some of the therapy tasks today, but would return to agitated state. At end Pt was attempting to call out to the nurse. Objective: Goal #1: Pt is able to lift both arms and hands when directed but cannot yet volitionally move hand or point when presented with communication board. Pt was presented w/ dry erase marker to see if she could grasp it, but Pt was unable to hold or grasp pen. When asked y/n questions, Pt verbalizes v. gesture or pointing/indicating on communication board. Goal #2: Pt was presented w/ single words w/picture reference w/ m/b initial sound. Pt had difficulty reading or interpreting the pictures (mouthed what the hell is that? ). She was able to repeat the words if presented with them verbally. She produced 60% of the words presented with a slowed rate and exaggerated articulation after the model. Assessment:Pt is status post tracheostomy after extended period on ventilator. 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 Pt additionally has very limited movement of upper extremities due to severe muscle wasting from extended period of intubation. Pt is attempting to communicate by speaking, speech at this time requires lip reading. Pt requires cuing to slow and over pronounce words to facilitate lip reading, and on todays session, Pt was having difficulty following this cuing. Pt was given communication board to communicate basic needs and y/n responses. On evaluation, at this time, communication board has limited use to to limited movement of upper extremeties (Pt cannot initiate pointing, can only indicate y/n choice if hand is positioned in close proximity to choice). Pt will need ongoing assessment and specific training/cuing for using exaggerated speech in order for others to lip read, and for appropriate basic augmentative communication system (e.g. continue to assess mobility issues needed for AC). Notes: Plan: Goal # : Pt will access and use communication board with improvement of upper limb function and dexterity, initiating communication with 80% accuracy. Status of Goal: Goal Continued Goal # : Pt will slow speech and overarticulate in order to facilitate lip reading, with fading of direct cuing, w/80% accuracy. Status of Goal: Goal Continued Goal # : Status of Goal: Goal # : Status of Goal: Seen by: Graduate/Clinical Fellow: No Supervisory Statement: f_Reg Query Last Value , MHC.AU.SIGNATUR Speech Language Pathologist: Juju Shanks M.A., CCC-SPECIALTY SALES REPRESENTATIVE
[2021-04-22] MEDS: clonazePAM 1 MG TABLET G-TUBE (20:43)
--- NOTE | 2021-04-22 23:03 | PC.NURSE ---
Aamir Pa hold clonidine at this time
[2021-04-23] VITALS (19 sets, daily range): BP systolic 98–134; BP diastolic 41–82; PULSE 103–128; RESP 14–35; TEMP 34.1–37.6; O2SAT 92–99; BMI 34.4
[2021-04-23] MEDS: Sodium Bicarbonate 650 MG TABLET G-TUBE ×2 (01:15→07:39)
[2021-04-23] MEDS: fentaNYL citrate/PF 100 MCG/2 ML VIAL 50 MCG IVPUSH (01:20)
[2021-04-23] MEDS: Metoprolol Tartrate 25 MG TABLET PO ×2 (04:32→12:56)
[2021-04-23 05:45] LABS: VBG Base Excess -5.4 mmol/L; VBG HCO3 17 mmol/L (22-26); VBG pCO2 24 mmHg; VBG pH 7.44 (7.32-7.43); VBG pO2 68 mmHg
[2021-04-23 05:46] LABS: Venous Blood Gas Refer to POC result
[2021-04-23 05:48] LABS: Hematocrit 28.6 % (37.0-47.0); Hemoglobin 8.8 g/dl (12.0-16.0); Mean Corpuscular HGB Conc 30.8 g/dl (31.0-35.0); Mean Corpuscular Hemoglobin 28.2 pg (27.0-33.0); Mean Corpuscular Volume 91.7 fL (80.0-98.0); Mean Platelet Volume 9.4 fL (9.4-12.3); Platelet Count 288 X10*3/uL (160-400); Red Blood Count 3.12 X10*6/uL (4.20-5.50); Red Cell Distribution Width 17.5 % (11.0-16.0); White Blood Count 12.8 X10*3/uL (4.8-10.8)
[2021-04-23 06:07] LABS: Anion Gap 19 (12-20); Blood Urea Nitrogen 67 mg/dL (9-16); Carbon Dioxide 16 mmol/L (22-29); Chloride 109 mmol/L (96-108); Creatinine Clr Calc Pharmacy 15.9; Estimated Glomerular Filt Rate 11; Glucose Random 95 mg/dL (60-115); Potassium 4.8 mmol/L (3.3-5.1); Sodium 139 mmol/L (135-145)
[2021-04-23 06:41] LABS: Atypical Lymph Absolute Manual 0.1 x10*3/uL; Atypical Lymphs Percent Manual 1 % (0-6); Band Neutrophils Percent 10 % (3-5); Basophils Abs Manual 0.3 X10*3/uL (0.0-0.2); Basophils Percent Manual 2 % (0-2); Lymphocytes Absolute Manual 2.6 X10*3/uL (1.2-4.9); Lymphocytes Percent Manual 20 % (20-40); Metamyelocytes Absolute 0.3 X10*3/uL; Metamyelocytes Percent 2 %; Monocytes Percent Manual 8 % (2-11); Neutrophils Absolute Manual 8.3 X10*3/uL (2.0-8.3); Neutrophils Percent Manual 55 % (45-73); Promyelocytes Absolute 0.3 X10*3/uL; Promyelocytes Percent 2 %
[2021-04-23 06:42] LABS: Macrocytosis 1+ (5-14) /OIF; Platelet Estimate NORMAL (NORMAL); Platelet Morphology Comment NORMAL; Polychromasia 1+ (0-2) /OIF; RBC Morphology NOTED; Smudge Cells PRESENT
[2021-04-23] MEDS: cloNIDine HCL 0.2 MG TABLET PO (07:38)
[2021-04-23] MEDS: Sulfameth/Trimet 800/160/20 ML 20 ML ORAL.SUSP 10 ML PO (07:39)
[2021-04-23] MEDS: Loperamide HCl Oral Liquid 2 MG/15 ML LIQUID PO (07:39)
[2021-04-23] MEDS: clonazePAM 0.5 MG TABLET G-TUBE ×2 (07:39→12:56)
[2021-04-23] MEDS: Heparin Sodium,Porcine 5,000 UNIT/ML VIAL 5000 UNIT SUBCUT (07:39)
--- NOTE | 2021-04-23 08:34 | P.DS_ITS ---
DS: Providers Provider Date of Service: 04/23/21 Date of admission: 03/18/21 22:11 Date of discharge: 04/23/21 Primary care physician: Valerie Castano MD Admitting clinician: Neal Shabazz Attending physician on admission: Neal Shabazz Consults: 03/19/21 10:11 Consult to Cardiology Routine Consulting Provider: [facility] Cardiovascular Services Reason for consultation: NSTEMI 03/19/21 13:06 Consult to Nephrology Routine Consulting Provider: [facility] Reason for consultation: uremia Has provider been notified: No 03/25/21 09:49 Consult to Infectious Diseases Routine Consulting Provider: Annmarie Grant Reason for consultation: fever, hypotension, COVID Has provider been notified: Yes 04/08/21 13:20 Consult to Wound Care Routine Consulting Provider: Dyan Horne Reason for consultation: new wounds to sacrum/coccyx/labia/and bilateral heels Has provider been notified: Yes 04/10/21 08:31 Consult to Thoracic Surgery Routine Consulting Provider: Suzie Mukherjee Reason for consultation: Traheostomy / PEG placement Has provider been notified: No Attending physician on discharge: Kimberly David Discharging clinician: Kimberly David DS: Transfer Hospital Acceptance Reason for Transfer: new tracheostomy and continued ventilator dependence Name of Facility: [facility] DS: Diagnosis Discharge Diagnosis (1) Drug induced fever: Status: Acute (2) Failure to wean from mechanical ventilation: Status: Acute (3) Lung cancer: Status: Acute (4) O2 dependent: Status: Acute (5) Respiratory failure: Status: Acute (6) Restrictive lung disease: Status: Acute (7) COPD (chronic obstructive pulmonary disease): Status: Acute (8) COVID-19: Status: Acute (9) Acute respiratory failure with hypoxia: Status: Acute (10) Acute respiratory distress: Status: Acute (11) Aspiration into airway: Status: Acute (12) Pneumonia: Status: Acute (13) LEO (obstructive sleep apnea): Status: Acute (14) Metabolic encephalopathy: Status: Acute (15) Acute on chronic systolic (congestive) heart failure: Status: Acute (16) CKD (chronic kidney disease) stage 4, GFR 15-29 ml/min: Status: Acute (17) Anemia in chronic kidney disease: Status: Acute (18) JOAN (acute kidney injury): Status: Acute (19) Hypokalemia: Status: Acute (20) Tubulovillous adenoma of large intestine: Status: Acute (21) Pressure injury of sacral region, stage 2: Status: Acute (22) Acute blood loss anemia: Status: Acute (23) Uremia: Status: Acute (24) Osteoarthritis of ankles, bilateral: Status: Acute (25) Vitamin D deficiency: Status: Acute (26) Elevated troponin: Status: Acute DS: Summary Hospital Course Hospital Course: 60-year-old morbidly obese lady with COPD and obstructive sleep apnea presented 6 days prior to admission with what was thought to be a COPD exacerbation 6 days later admitted with acute hypoxic respiratory failure from COVID-19 pneumonitis/ ARDS but also was acutely encephalopathic and developed acute on chronic renal failure and required placement of a temporary dialysis catheter and was dialysis dependent until April 14 and she returned to a stage IV level of of chronic renal failure became nonoliguric and for the last 9 days intake and output have been matched and she is maintaining her electrolytes and is only on oral bicarb she also developed what appeared to be an acute myocarditis with an initial left ventricular ejection fraction 30% need which over the course of several weeks has repair to about 50% ejection fraction peak troponin then was about 2800 really never ra n a clinical course consistent with ischemia although that is never been disprove in EKG developed diffuse nonspecific ST-T changes at the same time but clearly function has repaired and remained compensated she has return of cognitive function and actually in a mouth Ng conversation with us but just has some difficulty writing definitely has significant critical illness diffuse myopathy/neuropathy it did have consider persistent diarrhea but her diet was switch from promote to Nepro and with that the diarrhea seemed to cease and her persistent low-grade temperature while on a cephalosporin for a pansensitive Proteus that grew from both urine and sputum where she did not appear to be persistently infected or toxic in all likelihood was drug fever and she was taken off the cephalosporin placed on Bactrim and she has been afebrile now for 36 hours with stable BUN and creatinine and electrolytes compensated pH repaired myocardial status repaired encephalopathy and now just down to a pressure support of 18 over a peep of 5 on the ventilator no signs of active infiltrate any longer Status at Discharge Cognitive/behavioral status at discharge: much improved pretty much a little frustrated and tearful but definitely cognitive function has returned and besides which she had been on a methadone program before at this point she is fully withdrawn and not receiving any opiates now for a while just simply placed on Klonopin and clonidine in [facility] Functional status at discharge: bed bound Overall status at discharge: patient is progressing back to baseline Time Spent with Patient Time attestation: Total time spent providing and/or coordinating discharge services: Discharge coordination time: Greater than 30 minutes Quality: Stroke Does the patient have a stroke diagnosis?: No Physical Exam Vital Signs: Vital Signs: Last Vital Signs Temp 99.7 F 04/23/21 08:00 Pulse 120 H 04/23/21 08:00 Resp 20 04/23/21 08:00 BP 105/78 04/23/21 08:00 Pulse Ox 95 04/23/21 08:00 BMI result Body Mass Index 34.4 awake and appropriate and nonfocal neurologically persistent sinus tachycardia currently rate 115 with with oxygen saturation 95% with comfortable respiratory rate and no significant respiratory effort blood pressure is 105/78 with a mean of 67 cardiac exam by bedside echo again 50% ejection fraction and no segmental wall motion abnormality lungs with diminished bilateral breath sounds and no adventitious sounds abdomen soft no organomegaly stage II decubitus over the coccyx being treated locally DS: Data Data Completed and Pending Labs on day of discharge: Laboratory Results - last 24 hr 04/23/21 04/23/21 04/23/21 05:32 05:32 05:37 WBC 12.8 H RBC 3.12 L Hgb 8.8 L Hct 28.6 L MCV 91.7 MCH 28.2 MCHC 30.8 L RDW 17.5 H Plt Count 288 MPV 9.4 Immature Gran % (Auto) Cancelled Neut % (Auto) Cancelled Lymph % (Auto) Cancelled Webb % (Auto) Cancelled Eos % (Auto) Cancelled Baso % (Auto) Cancelled Lymph # (Auto) Cancelled Webb # (Auto) Cancelled Eos # (Auto) Cancelled Baso # (Auto) Cancelled Abs Immat Gran (auto) Cancelled Absolute Neuts (auto) Cancelled Absolute Nucleated RBC 0.000 Nucleated RBC % (auto) 0.0 Neutrophils % (Manual) 55 Band Neutrophils % 10 H Lymphocytes % (Manual) 20 Atypical Lymphs % (Man) 1 Monocytes % (Manual) 8 Basophils % (Manual) 2 Metamyelocytes % 2 Promyelocytes % 2 Abs Neuts (Manual) 8.3 Lymphocytes # (Manual) 2.6 Atyp Lymphs # (Manual) 0.1 Monocytes # (Manual) 1.0 Basophils # (Manual) 0.3 H Metamyelocytes # 0.3 Promyelocytes # 0.3 Smudge Cells PRESENT Platelet Estimate NORMAL Plt Morphology Comment NORMAL RBC Morphology NOTED Polychromasia 1+ (0-2) Macrocytosis 1+ (5-14) VBG pH 7.44 H VBG pCO2 24 VBG pO2 68 VBG HCO3 17 L VBG O2 Saturation 92.0 VBG Base Excess -5.4 Sodium 139 Potassium 4.8 Chloride 109 H Carbon Dioxide 16 L Anion Gap 19 BUN 67 H Creatinine 4.20 H* Estim Creat Clear Calc 15.9 Estimated GFR 11 Random Glucose 95 Calcium 10.0 D Discharge Plan Discharge Anticipated Discharge Date/Time: 04/23/21 12:00 Patient Disposition: Xfer LTC Discharge Diagnosis: right sided heart failure COVID-19 pneumonitis/ARDS with acute hypoxic respiratory failure acute on chronic stage 5 renal failure acute myocarditis acute COVID-19 encephalopathy Referrals: Valerie Castano MD [Primary Care Provider] - 1 Week Discharge Medications: New ipratropium-albuterol 0.5 mg-3 mg(2.5 mg base)/3 mL Solution For Nebulization 3 ml inhalation RQ4H PRN (Reason: Wheezing) Qty: 180 0RF heparin (porcine) 5,000 unit/mL Solution 5,000 unit subcut Q12H Qty: 250 0RF clonidine HCl 0.2 mg Tablet 0.2 mg PO Q8H Qty: 90 0RF Protocol: Hold for SBP< HOLD for SBP < : 90 metoprolol tartrate 25 mg Tablet 25 mg PO Q8H Qty: 90 0RF Protocol: Hold for SBP/HR < HOLD for SBP < : 90 HOLD for HR < : 60 clonazepam 0.5 mg Tablet 0.5 mg G-tube BID@0900,1400 Qty: 90 0RF clonazepam 1 mg Tablet 1 mg G-tube BEDTIME Qty: 30 0RF polyvinyl alcohol [Artificial Tears (polyvin alc)] 1.4 % Drops 2 drp ophthalmic (eye) Q4H PRN (Reason: Dry Eyes) Qty: 15 0RF sodium bicarbonate 650 mg Tablet 650 mg G-tube Q6H Qty: 90 0RF Continued aspirin 81 mg tablet,delayed release (DR/EC) 81 mg PO DAILY Qty: 30 0RF budesonide-formoterol [Symbicort] 160-4.5 mcg/actuation HFA aerosol inhaler 2 puff PO Q12H Qty: 10.2 0RF Discontinued ipratropium-albuterol [Combivent Respimat] 20-100 mcg/actuation mist 1 puff inhalation QID Qty: 4 0RF gabapentin 100 mg capsule 100 mg PO BID Qty: 60 0RF diltiazem HCl 120 mg capsule,extended release 24hr 1 cap PO DAILY 0RF albuterol sulfate 2.5 mg /3 mL (0.083 %) solution for nebulization 2.5 mg inhalation Q6H PRN (Reason: Shortness Of Breath) 0RF clonazepam [Klonopin] 1 mg tablet 1 mg PO TID 0RF Rx Instructions: administer 30 minutes before bedtime hydroxyzine pamoate 50 mg capsule 50 mg PO BEDTIME PRN (Reason: Sleep) 0RF methadone 10 mg/mL concentrate 73 mg PO DAILY 0RF Label Comments: *DOSE NEEDS TO BE VERIFIED BY [facility] isosorbide mononitrate 60 mg tablet extended release 24 hr 60 mg PO DAILY 0RF metolazone 2.5 mg tablet 2.5 mg PO 2XW 0RF torsemide 20 mg tablet 40 mg PO BID 0RF Discharge Orders: Discharge Order (Routine); Ordered 04/23/21 Ordered By: Kimberly David Activity on Discharge: As tolerated Stand Alone Forms: Patient Portal Discharge page Care Plan Goals: LTAC for vent weaning and physical therapy Health Concerns: vent dependent Plan of Treatment: vent wean and PT/OT Assessment: medically stable on pressure support via tracheostomy
--- NOTE | 2021-04-23 11:36 | PM.PNNEP ---
Subjective Subjective Date of Service: 04/23/21 Interval history: Seen AM. Events noted. All recent events noted. D/W daughter Physical Exam Vital Signs: Vital Signs: Last Vital Signs Temp 99.7 F 04/23/21 08:00 Pulse 120 H 04/23/21 11:00 Resp 22 H 04/23/21 11:00 BP 113/41 L 04/23/21 11:00 Pulse Ox 95 04/23/21 11:00 BMI result Body Mass Index 34.4 Const: Other: On Vent thru Trach Eyes: EOM: EOMs intact bilaterally Resp: Auscultation: diminished lung sounds Cardio: Rate: regular rate GI: Palpation (GI): Soft to palpation Neuro: Other: Awake Objective Data Labs CBC & Chem 7: 04/23/21 05:32 04/23/21 05:32 Labs: Laboratory Results - last 24 hr 04/23/21 04/23/21 04/23/21 05:32 05:32 05:37 WBC 12.8 H RBC 3.12 L Hgb 8.8 L Hct 28.6 L MCV 91.7 MCH 28.2 MCHC 30.8 L RDW 17.5 H Plt Count 288 MPV 9.4 Immature Gran % (Auto) Cancelled Neut % (Auto) Cancelled Lymph % (Auto) Cancelled Gillespie % (Auto) Cancelled Eos % (Auto) Cancelled Baso % (Auto) Cancelled Lymph # (Auto) Cancelled Gillespie # (Auto) Cancelled Eos # (Auto) Cancelled Baso # (Auto) Cancelled Abs Immat Gran (auto) Cancelled Absolute Neuts (auto) Cancelled Absolute Nucleated RBC 0.000 Nucleated RBC % (auto) 0.0 Neutrophils % (Manual) 55 Band Neutrophils % 10 H Lymphocytes % (Manual) 20 Atypical Lymphs % (Man) 1 Monocytes % (Manual) 8 Basophils % (Manual) 2 Metamyelocytes % 2 Promyelocytes % 2 Abs Neuts (Manual) 8.3 Lymphocytes # (Manual) 2.6 Atyp Lymphs # (Manual) 0.1 Monocytes # (Manual) 1.0 Basophils # (Manual) 0.3 H Metamyelocytes # 0.3 Promyelocytes # 0.3 Smudge Cells PRESENT Platelet Estimate NORMAL Plt Morphology Comment NORMAL RBC Morphology NOTED Polychromasia 1+ (0-2) Macrocytosis 1+ (5-14) VBG pH 7.44 H VBG pCO2 24 VBG pO2 68 VBG HCO3 17 L VBG O2 Saturation 92.0 VBG Base Excess -5.4 Sodium 139 Potassium 4.8 Chloride 109 H Carbon Dioxide 16 L Anion Gap 19 BUN 67 H Creatinine 4.20 H* Estim Creat Clear Calc 15.9 Estimated GFR 11 Random Glucose 95 Calcium 10.0 D Microbiology Microbiology Results: Microbiology 04/17/21 00:56 Blood - Venous Blood Culture - Final No growth after 5 days. 04/17/21 01:00 Blood - Venous Blood Culture - Final No growth after 5 days. 04/17/21 08:27 Sputum - Suctioned Gram Stain - Final 04/17/21 08:27 Sputum - Suctioned Sputum Culture - Final Proteus mirabilis 04/19/21 Unknown Urine Catheterized - Witt Catheter Urine Culture - Final No growth. 04/17/21 00:40 Urine Catheterized - Witt Catheter Urine Culture - Final Proteus mirabilis 04/02/21 13:20 Sputum - Suctioned Gram Stain - Final 04/02/21 13:20 Sputum - Suctioned Sputum Culture - Final Methicillin Res Staph Aureus 03/24/21 16:49 Blood - Central Line Blood Culture - Final No growth after 5 days. 03/24/21 16:49 Blood - Central Line Blood Culture - Final No growth after 5 days. 03/24/21 16:50 Urine Catheterized - Witt Catheter Urine Culture - Final No growth. 03/18/21 19:37 Blood - Venous Blood Culture - Final No growth after 5 days. 03/18/21 19:37 Blood - Venous Blood Culture - Final Procedures Date of Service Date of Service: 04/23/21 Assessment & Plan Assessment and plan (1) JOAN (acute kidney injury): Status: Acute Assessment and Plan: JOAN superimposed on CKD CKD 4 with baseline serum creatinine of? 2.5-3.0 No indication for HD now. Metabolically acidotic- On NaHCO3 (Temp Hd cath removed d/t fever and last HD was 04/15) C/W diuresis PRN? & supportive care Anemia of chronic disease. Suggest Procrit [id number] Units weekly Shall F/U closely Time Spent With Patient Time: Total time spent is greater than 50% in coordination of care (as documented) at patient's floor/unit and/or counseling patient: Progress Note: Quality Stroke Does the patient have a stroke diagnosis?: No
--- NOTE | 2021-04-23 14:16 | MHC.CM.PN ---
Pt scheduled to leave [facility] at 2:30 today via [facility]. Met with pt and dtr Dyana to discuss and answer questions. Call placed to pt's S[facility] to inform and pass along cell number of [facility] [facility] for visitation information. Additional clinical information remitted to [facility] per request.
== END 2021-04-23 15:05 | DRG 4 ==
LOC: HO.ED 21:56 → HO.EDOVER 22:27 → HO.ICU 23:18
PROVIDERS: Anesthesiology; Internal Medicine; Internal Medicine Gastroenterology; Internal Medicine Nephrology; Internal Medicine Pulmonary Disease; Nurse Practitioner Family; Physician Assistant; Physician Assistant Medical; Surgery; Admitting Provider Registered Nurse Community Health; Emergency Provider Emergency Medicine; PCP Internal Medicine; Visit Provider Internal Medicine Cardiovascular Disease
PROC: 0DJ08ZZ Inspection of Upper Intestinal Tract, Via Natural or Artificial Opening Endoscopic (ICD-10-PCS; CPT 43235; principal; 2021-03-26 12:30)
PROC: 0B113F4 Bypass Trachea to Cutaneous with Tracheostomy Device, Percutaneous Approach (ICD-10-PCS; principal; 2021-04-11 14:10)
PROC: 0DH63UZ Insertion of Feeding Device into Stomach, Percutaneous Approach (ICD-10-PCS; CPT 43246; 2021-04-11 14:10)
DX: U07.1 COVID-19 (principal); G93.41 Metabolic encephalopathy; J96.21 Acute and chronic respiratory failure with hypoxia; I50.23 Acute on chronic systolic (congestive) heart failure; N17.0 Acute kidney failure with tubular necrosis; K72.00 Acute and subacute hepatic failure without coma; K29.71 Gastritis, unspecified, with bleeding; K29.81 Duodenitis with bleeding; C34.90 Malignant neoplasm of unspecified part of unspecified bronchus or lung; F11.20 Opioid dependence, uncomplicated; I13.2 Hypertensive heart and chronic kidney disease with heart failure and with stage 5 chronic kidney disease, or end stage renal disease; N18.5 Chronic kidney disease, stage 5; E66.2 Morbid (severe) obesity with alveolar hypoventilation; E87.4 Mixed disorder of acid-base balance; R57.9 Shock, unspecified; I42.9 Cardiomyopathy, unspecified; I48.92 Unspecified atrial flutter; E87.0 Hyperosmolality and hypernatremia; G72.81 Critical illness myopathy; J43.9 Emphysema, unspecified; G40.909 Epilepsy, unspecified, not intractable, without status epilepticus; D63.1 Anemia in chronic kidney disease; Z68.34 Body mass index [BMI] 34.0-34.9, adult; L89.152 Pressure ulcer of sacral region, stage 2; L89.322 Pressure ulcer of left buttock, stage 2; I50.82 Biventricular heart failure; Z99.81 Dependence on supplemental oxygen; Z87.891 Personal history of nicotine dependence; Z88.6 Allergy status to analgesic agent; Z86.74 Personal history of sudden cardiac arrest; Z91.013 Allergy to seafood; Z79.82 Long term (current) use of aspirin; Z79.899 Other long term (current) drug therapy
CPT/HCPCS: 36415; 36430; 36600; 70450; 70551; 71045; 71250; 76775; 78580; 80048; 80053; 80076; 80202; 80307; 81001; 82040; 82140; 82248; 82272; 82310; 82570; 82728; 82803; 82947; 83605; 83615; 83735; 83880; 84100; 84145; 84484; 84540; 85007; 85025; 85027; 85379; 85610; 85652; 85730; 86140; 86704; 86706; 86709; 86769; 86803; 86850; 86870; 86885; 86900; 86901; 86902; 86905; 86920; 86922; 87040; 87070; 87077; 87081; 87086; 87088; 87186; 87205; 87340; 87389; 87449; 87493; 87635; 87640; 87641; 89055; 90999; 92507; 92607; 93005; 93306; 93308; 93970; 94002; 94003; 94640; 94660; 94799; 96361; 96365; 96366; 96375; 97110; 97163; 97167; 99285; 99291; 99292; A9540; C1758; J0153; J0282; J0295; J0696; J1100; J1170; J1940; J2060; J2150; J2185; J2250; J2543; J2930; J3010; J3370; J3475; P9016; P9047

== ENCOUNTER 2021-07-23 20:42 | Inpatient (IN) | payer MEDICARE, MEDICAID, SELFPAY ==
--- NOTE | ~2021-07-23 | XR_ITS ---
EXAMINATION: XR CHEST CLINICAL INFORMATION: Shortness of breath COMPARISON: 04/17/2021 TECHNIQUE: Frontal view of the chest was obtained. FINDINGS: Compared with 04/17/2021 study there's been some mild improvement with decrease in opacity at the left lung base. Right mid lung atelectasis/scarring persists. Heart size within normal limits. No CHF. XR/XR chest 1V IMPRESSION: Slightly improved appearances since prior with clearing of patchy density and possible left pleural effusion. Right midlung atelectasis persists.
[2021-07-23 20:59] VITALS: BP 127/56; PULSE 120; RESP 24; TEMP 36.8; O2SAT 99; BMI 32.3
[2021-07-23 21:01] VITALS: BP 127/56; PULSE 120; RESP 24; TEMP 36.8; O2SAT 99
--- NOTE | 2021-07-23 21:23 | ED.WEAKNESS ---
HPI - Weakness General Chief complaint: Weakness Stated complaint: weakness Time Seen by Provider: 07/23/21 21:23 Source: patient Mode of arrival: ambulatory Limitations: no limitations History of Present Illness HPI Narrative: ?61 year-old female with past medical history of? COPD? on 2 L via nasal cannula chronically,? lung cancer? on palliative radiation therapy,? polysubstance abuse (on methadone),? dyslipidemia, seizure, hypertension, CKD?came to the ER for increased weakness obtained patient was just [facility] ago after few days of stay patient does feel that does not have any strength to take care of herself denies any fever/ chest pain. Patient does have chronic shortness of breath on home oxygen 2 L 24 hours Related Data Previous Rx's Medication Instructions Recorded aspirin 81 mg tablet,delayed 81 mg PO DAILY #30 tabs 12/11/19 release Symbicort 160 mcg-4.5 2 puff PO Q12H #10.2 grams 02/27/21 mcg/actuation HFA aerosol inhaler (budesonide-formoterol) clonazepam 0.5 mg tablet 0.5 mg G-tube BID@0900,1400 #90 04/23/21 tabs clonazepam 1 mg tablet 1 mg G-tube BEDTIME #30 tabs 04/23/21 clonidine HCl 0.2 mg tablet 0.2 mg PO Q8H #90 tabs 04/23/21 heparin (porcine) 5,000 unit/mL 5,000 unit subcut Q12H #250 mL 04/23/21 injection solution ipratropium 0.5 mg-albuterol 3 mg 3 ml inhalation RQ4H PRN Wheezing 04/23/21 (2.5 mg base)/3 mL nebulization #180 mL soln metoprolol tartrate 25 mg tablet 25 mg PO Q8H #90 tabs 04/23/21 polyvinyl alcohol 1.4 % eye drops 2 drp ophthalmic (eye) Q4H PRN Dry 04/23/21 (Artificial Tears (polyvinyl Eyes #15 mL alcohol)) sodium bicarbonate 650 mg tablet 650 mg G-tube Q6H #90 tabs 04/23/21 Allergies Allergy/AdvReac Type Severity Reaction Status Date / Time ciprofloxacin [From Cipro] Allergy Unknown HIVES/SWELLING, Verified 02/20/21 15:09 THROAT CLOSES shellfish derived Allergy Unknown UNKNOWN Verified 02/20/21 15:09 [SHELLFISH DERIVED] NSAIDS AdvReac Unknown avoid cue Verified 02/20/21 15:09 to kidney disease Review of Systems Review of Systems: Yes all other systems are reviewed and are negative [facility], [facility] Past Medical History Medical History COVID-19 (~03/2021) Dyslipidemia Family history of colon cancer History of claustrophobia History of seizure HTN (hypertension) Hx of cardiac arrest (~2015) Methadone maintenance therapy patient Multiple fractures of ribs Obesity Olecranon bursitis of left elbow Osteoarthritis of ankles, bilateral Osteopenia (~2017) Tubulovillous adenoma of large intestine (~2020) Umbilical hernia Vitamin D deficiency Surgical History History of colonoscopy (~2020) History of esophagogastroduodenoscopy (EGD) (~2021) History of hand surgery History of laparoscopy (~2012) History of lung biopsy (~2019) History of removal of ureteral stent (~2013) History of tubal ligation Family History Family History Father Diabetes mellitus Mother Depression Mental health disorder Maternal Grandfather Colon cancer Sister No problems noted. Son No problems noted. Daughter No problems noted. Daughter No problems noted. Social History Social History Household Members: Spouse Housing: House Are you a primary care attendant to a significant other at home: No Do you presently have visiting nurse or other home services: Yes Unable to assess alcohol history related to: Unable to respond Alcohol intake: never Patient Tobacco Use Status: Former Tobacco user Quit Date: 2011 Tobacco use type: Cigarette Years Smoked: 25 yrs Advance Directives: Yes Advance Directives on File: Yes Advance Directives Date on File: 03/21/21 service: No Current occupational status: disabled Physical Exam Vital Signs: Vital Signs: Last Vital Signs Temp 102.2 F H 07/24/21 01:08 Pulse 140 H 07/24/21 00:11 Resp 27 H 07/24/21 00:33 BP 143/82 H 07/24/21 00:11 Pulse Ox 96 07/24/21 00:11 O2 Del Method 07/24/21 00:11 O2 Flow Rate 1 07/24/21 00:11 Oxygen Flow Rate 2 07/23/21 20:59 BMI result Body Mass Index 32.3 Appearance: Alert. Oriented X3. Sick looking patient. Eyes: Pallor+ ENT: Pharynx normal. Oral Mucosa moist Neck: Normal inspection. Neck supple. CVS: Regular regular tachycardia. Pulses normal. Respiratory: Mild respiratory distress. Equal air entry bilateral, bilateral wheezing and rhonchi Abdomen: Soft and nontender. Bowel sounds are present, no mass palpable, no CVA tenderness Skin: Skin warm and dry. Normal skin turgor. Erythema of bilateral lower legs right more than the left Extremities: 2+ bilateral lower extremity edema. No calf tenderness Neuro: Oriented X 3. No motor deficit. No sensory deficit. MDM - Weakness MDM Narrative Medical decision making narrative: Patient with bilateral leg cellulitis with tachycardia normal lactic acid level will treat with vancomycin and ceftriaxone admit for placement Medical Records Attestation: I reviewed the patient's medical records. Lab Data Attestation: I reviewed the patient's lab results. Result diagrams: 07/23/21 22:10 07/23/21 22:09 Labs: Lab Results 07/23/21 07/23/21 07/23/21 Range/Units 22:09 22:09 22:09 WBC (4.8-10.8) X10*3/uL RBC (4.20-5.50) X10*6/uL Hgb (12.0-16.0) g/dl Hct (37.0-47.0) % MCV (80.0-98.0) fL MCH (27.0-33.0) pg MCHC (31.0-35.0) g/dl RDW (11.0-16.0) % Plt Count (160-400) X10*3/uL MPV (9.4-12.3) fL Immature Gran % (Auto) (0.0-0.4) % Neut % (Auto) (45-73) % Lymph % (Auto) (20-40) % [place] % (Auto) (2-11) % Eos % (Auto) (0-4) % Baso % (Auto) (0-2) % Lymph # (Auto) (1.2-4.9) X10*3/uL [place] # (Auto) (0.1-1.2) X10*3/uL Eos # (Auto) (0.0-0.4) X10*3/uL Baso # (Auto) (0.0-0.2) X10*3/uL Abs Immat Gran (auto) (0.00-0.03) X10*3/uL Absolute Neuts (auto) (2.0-8.3) x10*3/uL Absolute Nucleated RBC (0.0-0.012) X10*3/uL Nucleated RBC % (auto) (0.0-0.2) /100WBC Smear Tech's Comments Sodium 139 (135-145) mmol/L Potassium 4.9 (3.3-5.1) mmol/L Chloride 102 (96-108) mmol/L Carbon Dioxide 26 (22-29) mmol/L Anion Gap 16 (12-20) BUN 29 H D (9-16) mg/dL Creatinine 2.56 H (0.5-1.4) mg/dL Estim Creat Clear Calc 26.8 Estimated GFR 19 Random Glucose 79 (60-115) mg/dL Lactic Acid 1.9 (0.5-2.0) mmol/L Calcium 9.3 D (8.4-10.2) mg/dL Total Bilirubin 0.5 (0.0-1.0) mg/dL AST 27 D (5-31) U/L ALT 18 (0-31) U/L Alkaline Phosphatase 79 D (39-117) U/L Total Protein 7.9 D (6.5-8.0) g/dL Albumin 3.8 (3.5-5.0) g/dL COVID-19 (STANLEY) Negative (Negative) COVID-19 Clin Com See Note 07/23/21 Range/Units 22:10 WBC 14.2 H (4.8-10.8) X10*3/uL RBC 4.40 D (4.20-5.50) X10*6/uL Hgb 11.4 L D (12.0-16.0) g/dl Hct 39.0 D (37.0-47.0) % MCV 88.6 (80.0-98.0) fL MCH 25.9 L (27.0-33.0) pg MCHC 29.2 L (31.0-35.0) g/dl RDW 17.1 H (11.0-16.0) % Plt Count 292 (160-400) X10*3/uL MPV 8.1 L (9.4-12.3) fL Immature Gran % (Auto) 0.4 (0.0-0.4) % Neut % (Auto) 74.1 H (45-73) % Lymph % (Auto) 10.3 L (20-40) % [place] % (Auto) 15.1 H (2-11) % Eos % (Auto) 0.0 (0-4) % Baso % (Auto) 0.1 (0-2) % Lymph # (Auto) 1.5 (1.2-4.9) X10*3/uL [place] # (Auto) 2.2 H (0.1-1.2) X10*3/uL Eos # (Auto) 0.0 (0.0-0.4) X10*3/uL Baso # (Auto) 0.0 (0.0-0.2) X10*3/uL Abs Immat Gran (auto) 0.05 H (0.00-0.03) X10*3/uL Absolute Neuts (auto) 10.5 H (2.0-8.3) x10*3/uL Absolute Nucleated RBC 0.000 (0.0-0.012) X10*3/uL Nucleated RBC % (auto) 0.0 (0.0-0.2) /100WBC Smear Tech's Comments VERIFIED Sodium (135-145) mmol/L Potassium (3.3-5.1) mmol/L Chloride (96-108) mmol/L Carbon Dioxide (22-29) mmol/L Anion Gap (12-20) BUN (9-16) mg/dL Creatinine (0.5-1.4) mg/dL Estim Creat Clear Calc Estimated GFR Random Glucose (60-115) mg/dL Lactic Acid (0.5-2.0) mmol/L Calcium (8.4-10.2) mg/dL Total Bilirubin (0.0-1.0) mg/dL AST (5-31) U/L ALT (0-31) U/L Alkaline Phosphatase (39-117) U/L Total Protein (6.5-8.0) g/dL Albumin (3.5-5.0) g/dL COVID-19 (STANLEY) (Negative) COVID-19 Clin Com ECG Data Attestation: I personally reviewed and interpreted this ECG as follows: Interpretation: Sinus tachycardia with heart rate 135 beats per minute normal interval normal axis acute distribution is no acute ischemia Discharge Plan Discharge Clinical Impression: Bilateral cellulitis of lower leg, COPD (chronic obstructive pulmonary disease), CKD (chronic kidney disease) stage 4, GFR 15-29 ml/min Patient Disposition: Admitted As Inpatient
--- NOTE | 2021-07-23 22:10 | PC.NURSE ---
this RN attempt IV placement 2x with no success, this RN able to get labs. aware.
[2021-07-23 22:18] LABS: Basophils Percent Auto 0.1 % (0-2); Hemoglobin 11.4 g/dl (12.0-16.0); Imm Gran Abs Auto 0.05 X10*3/uL (0.00-0.03); Imm Gran Pct Auto 0.4 % (0.0-0.4); Lymphocytes Absolute Auto 1.5 X10*3/uL (1.2-4.9); Lymphocytes Percent Auto 10.3 % (20-40); MANUAL DIFF FLAG SCAN; Mean Corpuscular HGB Conc 29.2 g/dl (31.0-35.0); Mean Corpuscular Hemoglobin 25.9 pg (27.0-33.0); Mean Corpuscular Volume 88.6 fL (80.0-98.0); Mean Platelet Volume 8.1 fL (9.4-12.3); Monocytes Absolute Auto 2.2 X10*3/uL (0.1-1.2); Monocytes Percent Auto 15.1 % (2-11); Neutrophils Absolute Auto 10.5 x10*3/uL (2.0-8.3); Neutrophils Percent Auto 74.1 % (45-73); Platelet Count 292 X10*3/uL (160-400); Red Cell Distribution Width 17.1 % (11.0-16.0); SCAN SMEAR FLAG 1; White Blood Count 14.2 X10*3/uL (4.8-10.8)
[2021-07-23 22:21] VITALS: BP 134/80; PULSE 127; RESP 16; TEMP 36.9; O2SAT 100
--- NOTE | 2021-07-23 22:22 | PC.NURSE ---
aware of pt HR
[2021-07-23 22:32] LABS: Lactic Acid 1.9 mmol/L (0.5-2.0)
[2021-07-23 22:42] LABS: Alanine Aminotransferase 18 U/L (0-31); Albumin Level 3.8 g/dL (3.5-5.0); Alkaline Phosphatase 79 U/L (39-117); Anion Gap 16 (12-20); Aspartate Amino Transferase 27 U/L (5-31); Bilirubin Total 0.5 mg/dL (0.0-1.0); Blood Urea Nitrogen 29 mg/dL (9-16); Calcium 9.3 mg/dL (8.4-10.2); Carbon Dioxide 26 mmol/L (22-29); Chloride 102 mmol/L (96-108); Creatinine Clr Calc Pharmacy 26.8; Estimated Glomerular Filt Rate 19; Glucose Random 79 mg/dL (60-115); Potassium 4.9 mmol/L (3.3-5.1); Sodium 139 mmol/L (135-145); Total Protein 7.9 g/dL (6.5-8.0)
[2021-07-23 22:42] LABS: SLIDE REVIEW VERIFIED
[2021-07-23] MEDS: cefTRIAXone sodium 1 GM in 0.9 % Sodium Chloride 50 ML IV (22:47)
[2021-07-23 23:05] LABS: COVID-19 Test Negative (Negative); IDNOW Serial# 9DB6401D
--- NOTE | 2021-07-23 23:05 | ECG_ITS ---
Test Reason : WEAKNESS Blood Pressure : / mmHG Vent. Rate : 135 BPM Atrial Rate : 135 BPM P-R Int : 144 ms QRS Dur : 076 ms QT Int : 274 ms P-R-T Axes : 058 063 037 degrees QTc Int : 411 ms Sinus tachycardia Low voltage QRS Borderline ECG When compared with ECG of 18-APR-2021 09:06, Premature atrial complexes are no longer Present T wave inversion no longer evident in Anterolateral leads Referred By: Ronald Foster Electronically Signed By:Philip Napier
[2021-07-23] MEDS: Acetaminophen 325 MG TABLET 650 MG PO (23:20)
[2021-07-23] MEDS: 0.9 % Sodium Chloride 1,000 ML 999 ML IV (23:20)
[2021-07-23 23:40] VITALS: PULSE 101; RESP 17; O2SAT 97
[2021-07-23] MEDS: vancomycin HCL 1,000 MG, vancomycin HCL 750 MG in 0.9 % Sodium Chloride 500 ML 267.5 MG IV (23:46)
--- NOTE | 2021-07-23 23:48 | P.HPHOSP_ITS ---
History of Present Illness Date of Service: 07/23/21 Chief Complaint: Not feeling well this is a 61-year-old female with past medical history of COPD, LEO, CKD, anemia of chronic kidney disease, hyperlipidemia, hypertension, who presents to the hospital stating not feeling well. Patient is a terrible historian, is not forthcoming with much history, history is obtained mostly from ED physician, and EMR. It appears was sent by her boyfriend because she was not acting right. Unable to get much elaboration on what that meant. Patient herself answers some questions with yes and no but otherwise review of system is incomplete. She denies any headache, no chest pain, reports no new shortness of breath no a bdominal pain nausea or vomiting, no diarrhea or constipation. No urinary symptoms. Patient noted to have redness and swelling of her lower extremities when asked about it she says she does not know and has not noticed it. On arrival to the ED patient hemodynamically stable with no significant abnormal vitals except a heart rate 120 sinus rhythm, respiratory rate of 24, blood pressure stable. Labs are significant for WBC count of 14.2, hemoglobin of 11.4, which is higher than her baseline, creatinine of 2.56 UA positive for leukocyte Estrace, nitrites and WBC chest x-ray shows slightly improved appearance since prior with clearing of patchy density in possible left pleural effusion Review of Systems Review of Systems: Yes all other systems are reviewed and are negative [facility] Medical History COVID-19 (~03/2021) Dyslipidemia Family history of colon cancer History of claustrophobia History of seizure HTN (hypertension) Hx of cardiac arrest (~2015) Methadone maintenance therapy patient Multiple fractures of ribs Obesity Olecranon bursitis of left elbow Osteoarthritis of ankles, bilateral Osteopenia (~2017) Tubulovillous adenoma of large intestine (~2020) Umbilical hernia Vitamin D deficiency Family History Father Diabetes mellitus Mother Depression Mental health disorder Maternal Grandfather Colon cancer Sister No problems noted. Son No problems noted. Daughter No problems noted. Daughter No problems noted. Surgical History History of colonoscopy (~2020) History of esophagogastroduodenoscopy (EGD) (~2021) History of hand surgery History of laparoscopy (~2012) History of lung biopsy (~2019) History of removal of ureteral stent (~2013) History of tubal ligation Social History Household Members: Spouse Housing: House Are you a primary long term care administrator to a significant other at home: No Do you presently have visiting nurse or other home services: Yes Unable to assess alcohol history related to: Unable to respond Alcohol intake: never Patient Tobacco Use Status: Former Tobacco user Quit Date: 2011 Tobacco use type: Cigarette Years Smoked: 25 yrs Advance Directives: Yes Advance Directives on File: Yes Advance Directives Date on File: 03/21/21 service: No Current occupational status: disabled Meds Allergies Allergy/AdvReac Type Severity Reaction Status Date / Time ciprofloxacin [From Cipro] Allergy Unknown HIVES/SWELLING, Verified 02/20/21 15:09 THROAT CLOSES shellfish derived Allergy Unknown UNKNOWN Verified 02/20/21 15:09 [SHELLFISH DERIVED] NSAIDS AdvReac Unknown avoid cue Verified 02/20/21 15:09 to kidney disease Active Medications: Current Medications Acetaminophen (Acetaminophen 325 Mg Tablet) 650 mg PO Q6H PRN PRN Reason: Pain, Mild (Pain Scale 1-3) Docusate Sodium (Docusate Sodium 100 Mg Capsule) 100 mg PO DAILY PRN PRN Reason: Constipation Heparin Sodium (Porcine) (Heparin Sodium,Porcine 5,000 Unit/Ml Vial) 5,000 unit SUBCUT Q12H ANALISA Sodium Chloride (Ns) 1,000 mls @ 999 mls/hr IV .Q1H1M ONE Stop: 07/24/21 00:07 Last Admin: 07/23/21 23:20 Dose: 999 mls/hr Vancomycin HCl 1,000 mg/Vancomycin HCl 750 mg/ Sodium Chloride 535 mls @ 267.5 mls/hr IV ONCE ONE Stop: 07/24/21 01:29 Ondansetron HCl (Ondansetron Hcl 4 Mg/2 Ml Vial) 4 mg IVPUSH Q8H PRN PRN Reason: Nausea and Vomiting Pharmacy Consult (Consult Rx Vancomycin Dosing) 1 each MISCELLANE DAILY PRN PRN Reason: Consult order Sodium Chloride (0.9 % Sodium Chloride Flush 3 Ml Syringe) 3 ml IVFLUSH QSHIFT [facility] Home Medications Medication Instructions Recorded Confirmed Last Taken Type Lactobacillus acidoph-L.bulgaricus 1 tab intragastric BID 07/24/21 07/24/21 Unknown History 1 million cell tablet (Floranex) albuterol sulfate 3 ml inhalation ONCE 07/24/21 07/24/21 Unknown History carvedilol 3.125 mg tablet 1 tab PO Q12H 07/24/21 07/24/21 Unknown History clonazepam 1 mg tablet 1 tab PO Q4H PRN anxiety 07/24/21 07/24/21 Unknown History cyclobenzaprine 10 mg tablet 1 tab PO TID PRN muscle spasm 07/24/21 07/24/21 Unknown History darbepoetin nadege in polysorbat 40 1 ml subcut FR 07/24/21 07/24/21 Unknown History mcg/mL in polysorbate injection (Aranesp) fludrocortisone 0.1 mg tablet 1 tab PO BID 07/24/21 07/24/21 Unknown History fluticasone furoate 100 1 puff PO DAILY 07/24/21 07/24/21 Unknown History mcg-vilanterol 25 mcg/dose inhalation powder (Breo Ellipta) furosemide 40 mg tablet 1 tab PO DAILY 07/24/21 07/24/21 Unknown History gabapentin 100 mg capsule 1 cap PO TID 07/24/21 07/24/21 Unknown History hydroxyzine HCl 50 mg tablet 1 tab PO BEDTIME 07/24/21 07/24/21 Unknown History magnesium oxide 400 mg (241.3 mg 1 tab PO BID 07/24/21 07/24/21 Unknown History magnesium) tablet methadone 10 mg tablet 3 tab PO QAM 07/24/21 07/24/21 Unknown History metolazone 5 mg tablet 0.5 tab PO MOWEFR 07/24/21 07/24/21 Unknown History omeprazole 20 mg capsule,delayed 2 cap PO DAILY 07/24/21 07/24/21 Unknown History release patiromer calcium sorbitex 8.4 1 packet PO TID 07/24/21 07/24/21 Unknown History gram oral powder packet (Veltassa) Physical Exam Vital Signs and Narrative: Vital Signs: Last Vital Signs Temp 98.4 F 07/23/21 22:21 Pulse 127 H 07/23/21 22:21 Resp 16 07/23/21 22:21 BP 134/80 07/23/21 22:21 Pulse Ox 100 07/23/21 22:21 O2 Del Method 07/23/21 22:21 O2 Flow Rate 2 07/23/21 22:21 Oxygen Flow Rate 2 07/23/21 20:59 BMI result Body Mass Index 32.3 Const: Other: patient appears ill, uncomfortable General: cooperative Orientation/ consciousness: patient oriented x3 Eyes: General: appearance normal, both eyes and all related structures Resp: Effort & Inspection: normal respiratory effort Auscultation: clear to auscultation bilaterally Cardio: Rate: tachycardic Rhythm: regular rhythm GI: Palpation (GI): Soft to palpation Auscultation: normal bowel sounds Skin: Other: has bilateral lower extremity erythema around the ankles, warmth, mild edema, and tenderness General skin exam: no rashes or lesions noted Neuro: General: patient oriented x3 Cognition (Neuro): normal cognition Extrem: General: Yes normal to inspection and Yes no pedal edema Results Labs CBC and Chem 7: 07/24/21 04:50 07/24/21 04:50 Labs: Laboratory Results - last 24 hr 07/23/21 07/23/21 07/23/21 22:09 22:09 22:09 MCV MCH MCHC RDW Plt Count MPV Immature Gran % (Auto) Neut % (Auto) Lymph % (Auto) [place] % (Auto) Eos % (Auto) Baso % (Auto) Lymph # (Auto) [place] # (Auto) Eos # (Auto) Baso # (Auto) Abs Immat Gran (auto) Absolute Neuts (auto) Absolute Nucleated RBC Nucleated RBC % (auto) Smear Tech's Comments Anion Gap 16 Estim Creat Clear Calc 26.8 Estimated GFR 19 Random Glucose 79 Lactic Acid 1.9 Calcium 9.3 D Total Bilirubin 0.5 AST 27 D ALT 18 Alkaline Phosphatase 79 D Total Protein 7.9 D Albumin 3.8 COVID-19 ([facility]LEY) Negative COVID-19 Clin Com See Note 07/23/21 22:10 MCV 88.6 MCH 25.9 L MCHC 29.2 L RDW 17.1 H Plt Count 292 MPV 8.1 L Immature Gran % (Auto) 0.4 Neut % (Auto) 74.1 H Lymph % (Auto) 10.3 L [place] % (Auto) 15.1 H Eos % (Auto) 0.0 Baso % (Auto) 0.1 Lymph # (Auto) 1.5 [place] # (Auto) 2.2 H Eos # (Auto) 0.0 Baso # (Auto) 0.0 Abs Immat Gran (auto) 0.05 H Absolute Neuts (auto) 10.5 H Absolute Nucleated RBC 0.000 Nucleated RBC % (auto) 0.0 Smear Tech's Comments VERIFIED Anion Gap Estim Creat Clear Calc Estimated GFR Random Glucose Lactic Acid Calcium Total Bilirubin AST ALT Alkaline Phosphatase Total Protein Albumin COVID-19 (ST[facility]LEY) COVID-19 Clin Com Imaging Radiologist's Impressions: Impressions Chest X-Ray 07/23/21 21:50 IMPRESSION: Slightly improved appearances since prior with clearing of patchy density and possible left pleural effusion. Right midlung atelectasis persists. Assessment and Plan (1) Sepsis: Status: Acute (2) Bilateral cellulitis of lower leg: Status: Acute (3) UTI (urinary tract infection): Status: Acute Plan this is a 61-year-old female with a past medical history of COPD, hypertension, LEO, CKD, diabetes who presents to the hospital not feeling well found to have cellulitis as well as UTI # sepsis - likely multifactorial in the setting of UTI as well as lower extremity cellulitis - patient has tachycardia, leukocytosis - normal lactic acid - will treat with IV fluids, IV antibiotics - follow cultures # UTI - positive UA - febrile, leukocytosis, tachycardia - will treat with IV antibiotics - follow cultures # bilateral cellulitis of lower extremities - erythema, warmth, edema, as well as tenderness - IV antibiotics - follow cultures # hypertension - stable - continue home antihypertensive # COPD - not in exacerbation - continue home inhalers # CKD - baseline - follow BMP # LEO - CPAP at bedtime will continue all her other home medications at this time DVT prophylaxis: Heparin subQ given patient's significant sepsis, UTI, swelling cellulitis, patient will require 2 night hospital stay for IV antibiotics and for further monitoring Quality Stroke Does the patient have a stroke diagnosis?: No VTE Prior VTE?: No VTE Risk Level:: Medical - moderate - high VTE Device Contraindication: Treatment Not Indicated VTE Drug Contraindication: N/A - Med Ordered
[2021-07-23] MEDS: Heparin Sodium,Porcine 5,000 UNIT/ML VIAL 5000 UNIT SUBCUT (23:59)
[2021-07-24] VITALS (13 sets, daily range): BP systolic 97–143; BP diastolic 49–85; PULSE 88–140; RESP 14–27; TEMP 36.3–39; O2SAT 96–100; BMI 30.9
[2021-07-24] MEDS: Albuterol/Iprat 2.5/0.5MG 3 ML AMPUL.NEB INHALE (00:16)
--- NOTE | 2021-07-24 00:33 | PC.NURSE ---
admitting MD aware of pt HR
--- NOTE | 2021-07-24 01:16 | PC.NURSE ---
pt provided perineal care & linen change
[2021-07-24] MEDS: Acetaminophen 325 MG TABLET 650 MG PO ×3 (04:32→22:31)
[2021-07-24 04:55] LABS: Basophils Percent Auto 0.2 % (0-2); Hematocrit 33.7 % (37.0-47.0); Imm Gran Abs Auto 0.04 X10*3/uL (0.00-0.03); Imm Gran Pct Auto 0.3 % (0.0-0.4); Lymphocytes Percent Auto 15.7 % (20-40); MANUAL DIFF FLAG SCAN; Mean Corpuscular HGB Conc 29.7 g/dl (31.0-35.0); Mean Corpuscular Hemoglobin 25.9 pg (27.0-33.0); Mean Corpuscular Volume 87.3 fL (80.0-98.0); Mean Platelet Volume 7.8 fL (9.4-12.3); Monocytes Absolute Auto 2.1 X10*3/uL (0.1-1.2); Neutrophils Absolute Auto 8.8 x10*3/uL (2.0-8.3); Neutrophils Percent Auto 67.8 % (45-73); Platelet Count 218 X10*3/uL (160-400); Red Blood Count 3.86 X10*6/uL (4.20-5.50); Red Cell Distribution Width 16.7 % (11.0-16.0); SCAN SMEAR FLAG 1
[2021-07-24 05:14] LABS: Anion Gap 13 (12-20); Blood Urea Nitrogen 28 mg/dL (9-16); Calcium 8.6 mg/dL (8.4-10.2); Carbon Dioxide 25 mmol/L (22-29); Chloride 106 mmol/L (96-108); Creatinine Clr Calc Pharmacy 29.4; Estimated Glomerular Filt Rate 21; Glucose Random 86 mg/dL (60-115); Sodium 140 mmol/L (135-145)
--- NOTE | 2021-07-24 05:18 | PC.NURSE ---
pt hypotensive systolic in 90s, MD aware.
[2021-07-24] MEDS: 0.9 % Sodium Chloride 2,721.54 ML 2721.54 ML IV (05:24)
[2021-07-24 05:43] LABS: Appearance Urine HAZY; Color Urine YELLOW; Glucose Urine UA NEG (NEG); Leukocyte Esterase Urine 2+ (NEG); Nitrite Urine POS (NEG); PH 6.5 (5.0-8.0); Urine Blood NEG (NEG); Urine Ketones NEG (NEG); Urine Protein TRACE MG/DL (NEG-TRACE)
[2021-07-24 05:48] LABS: Bacteria Urine 4+ /LPF; RBC Urine 0-2 /HPF (0); WBC Urine 30-49 /HPF (0-4)
--- NOTE | 2021-07-24 07:25 | PC.NURSE ---
report taken from radha rn- pt still needs 700ml from sepsis bolus per rn. plan for admission.will continue to monitor bps.
[2021-07-24 07:52] LABS: Thyroid Stimulating Hormone 0.91 uIU/mL (0.32-4.0)
--- NOTE | 2021-07-24 08:12 | PC.NURSE ---
report given to sony in overflow
--- NOTE | 2021-07-24 08:45 | PHA.MEDREC ---
Pharmacy Consult ? Medication Reconciliation Pharmacy has completed the medication reconciliation. Spoke with patient's daughter Anabel who reports that [facility]. Received medication list from [facility]. Per PA patient discharge 07/17/21. Methadone last dose needs to be confirmed by RN. Claudette Camacho, PharmD
[2021-07-24] MEDS: Aspirin 81 MG TAB.CHEW PO (10:02)
[2021-07-24] MEDS: carvediloL 3.125 MG TABLET PO ×2 (10:02→20:18)
[2021-07-24] MEDS: Omeprazole 40 MG CAPSULE.DR PO (10:02)
[2021-07-24] MEDS: Furosemide 40 MG TABLET PO (10:02)
--- NOTE | 2021-07-24 10:02 | MHC.CM.PN ---
REFERRAL PLACED TO [facility], WHERE PATIENT IS FROM FACILITY IS WILLING TO FOLLOW FOR POTENTIAL BED OFFER ONCE PATIENT IS MEDICALLY AND PSYCHIATRICALLY CLEARED
[2021-07-24] MEDS: Gabapentin 100 MG CAPSULE PO ×3 (10:03→20:18)
[2021-07-24] MEDS: Fludrocortisone Acetate 0.1 MG TABLET PO ×2 (10:15→20:18)
--- NOTE | 2021-07-24 10:33 | HO.PM.IMPN ---
Subjective Subjective Date of Service: 07/24/21 Interval History: cc: weakness, lethargy interval history:minimally improved Cardiovascular Cardiovascular: Reports no additional cardiovascular complaints Respiratory Respiratory: Reports no additional respiratory complaints Physical Exam Vital Signs: Vital Signs: Last Vital Signs Temp 97.8 F 07/24/21 09:12 Pulse 101 H 07/24/21 09:15 Resp 17 07/24/21 09:15 BP 116/72 07/24/21 09:15 Pulse Ox 100 07/24/21 09:15 O2 Del Method 07/24/21 09:15 O2 Flow Rate 2 07/24/21 09:15 Oxygen Flow Rate 2 07/23/21 20:59 BMI result Body Mass Index 32.3 General: AO X 3, chronicall ill appearing Resp: CTA bilateral, no accessory muscles used CVS: S1,S2,RRR GI: soft, non tender, non distended, mild erythema at old peg site (recently removed), no obvious abscess Neuro: motor grossly weak, alert skin: bilateral lower extremity erythema, warmth Psych: appropriate affect, appropriate insight Objective Data Active Medications Acetaminophen (Acetaminophen 325 Mg Tablet) 650 mg PO Q6H PRN PRN Reason: Pain, Mild (Pain Scale 1-3) Last Admin: 07/24/21 10:10 Dose: 650 mg Documented By: ALLISON Albuterol Sulfate (Albuterol Sulfate (0.083%) 2.5 Mg/3 Ml Vial.Neb) 2.5 mg INHALE Q4H PRN PRN Reason: wheezing Albuterol/Ipratropium (Albuterol/Iprat 2.5/0.5mg 3 Ml Ampul.Neb) 3 ml INHALE RQ4H PRN PRN Reason: Shortness of Breath/Wheezing Aspirin (Aspirin 81 Mg Tab.Chew) 81 mg PO DAILY [facility] Last Admin: 07/24/21 10:02 Dose: 81 mg Documented By: ALLISON Carvedilol (Carvedilol 3.125 Mg Tablet) 3.125 mg PO BID [facility]; Protocol Last Admin: 07/24/21 10:02 Dose: 3.125 mg Documented By: ALLISON Clonazepam (Clonazepam 1 Mg Tablet) 1 mg PO Q4H PRN PRN Reason: anxiety Cyclobenzaprine HCl (Cyclobenzaprine Hcl 10 Mg Tablet) 10 mg PO TID PRN PRN Reason: muscle spasm Docusate Sodium (Docusate Sodium 100 Mg Capsule) 100 mg PO DAILY PRN PRN Reason: Constipation Fludrocortisone Acetate (Fludrocortisone Acetate 0.1 Mg Tablet) 0.1 mg PO BID [facility] Last Admin: 07/24/21 10:15 Dose: 0.1 mg Documented By: ALLISON Fluticasone/Vilanterol (Fluticasone/Vilanterol 100/25 Blst.W.Dev) 1 puff INHALE RDAILY [facility] Last Admin: 07/24/21 08:51 Dose: Not Given Documented By: ROMAIN Non-Admin Reason: Med Not Available Furosemide (Furosemide 40 Mg Tablet) 40 mg PO DAILY [facility]; Protocol Last Admin: 07/24/21 10:02 Dose: 40 mg Documented By: ALLISON Gabapentin (Gabapentin 100 Mg Capsule) 100 mg PO TID [facility] Last Admin: 07/24/21 10:03 Dose: 100 mg Documented By: ALLISON Heparin Sodium (Porcine) (Heparin Sodium,Porcine 5,000 Unit/Ml Vial) 5,000 unit SUBCUT Q12H [facility] Last Admin: 07/23/21 23:59 Dose: 5,000 unit Documented By: JOHN Hydroxyzine HCl (Hydroxyzine Hcl 50 Mg Tablet) 50 mg PO BEDTIME [facility] Ceftriaxone Sodium 1 gm/ (Sodium Chloride) 50 mls @ 100 mls/hr IV Q24H [facility] Methadone HCl (Methadone Hcl 10 Mg Tablet) 30 mg PO QAM [facility] Omeprazole (Omeprazole 40 Mg Capsule.Dr) 40 mg PO DAILY@0630 [facility] Last Admin: 07/24/21 10:02 Dose: 40 mg Documented By: ALLISON Ondansetron HCl (Ondansetron Hcl 4 Mg/2 Ml Vial) 4 mg IVPUSH Q8H PRN PRN Reason: Nausea and Vomiting Pharmacy Consult (Consult Rx Vancomycin Dosing) 1 each MISCELLANE DAILY PRN PRN Reason: Consult order Pharmacy Consult (Consult Rx Perform Med Rec) 1 each MISCELLANE ONCE PRN PRN Reason: Consult order Sodium Chloride (0.9 % Sodium Chloride Flush 3 Ml Syringe) 3 ml IVFLUSH QSHIFT [facility] Last Admin: 07/24/21 08:00 Dose: Not Given Documented By: LISA Non-Admin Reason: IV Running Labs CBC & Chem 7: 07/24/21 04:50 07/24/21 04:50 Labs: Laboratory Results - last 24 hr 07/23/21 07/23/21 07/23/21 22:09 22:09 22:09 MCV MCH MCHC RDW Plt Count MPV Immature Gran % (Auto) Neut % (Auto) Lymph % (Auto) [place] % (Auto) Eos % (Auto) Baso % (Auto) Lymph # (Auto) [place] # (Auto) Eos # (Auto) Baso # (Auto) Abs Immat Gran (auto) Absolute Neuts (auto) Absolute Nucleated RBC Nucleated RBC % (auto) Smear Tech's Comments Anion Gap 16 Estim Creat Clear Calc 26.8 Estimated GFR 19 Random Glucose 79 Lactic Acid 1.9 Calcium 9.3 D Total Bilirubin 0.5 AST 27 D ALT 18 Alkaline Phosphatase 79 D Total Protein 7.9 D Albumin 3.8 TSH Urine Color Urine Appearance Urine pH Ur Specific Violet Urine Protein Urine Glucose (UA) Urine Ketones Urine Blood Urine Nitrite Ur Leukocyte Esterase Urine RBC Urine WBC Ur Squamous Epith Cells Urine Bacteria COVID-19 ([facility]LEY) Negative COVID-19 Clin Com See Note 07/23/21 07/24/21 07/24/21 22:10 04:50 04:50 MCV 88.6 87.3 MCH 25.9 L 25.9 L MCHC 29.2 L 29.7 L RDW 17.1 H 16.7 H Plt Count 292 218 D MPV 8.1 L 7.8 L Immature Gran % (Auto) 0.4 0.3 Neut % (Auto) 74.1 H 67.8 Lymph % (Auto) 10.3 L 15.7 L [place] % (Auto) 15.1 H 16.0 H Eos % (Auto) 0.0 0.0 Baso % (Auto) 0.1 0.2 Lymph # (Auto) 1.5 2.0 [place] # (Auto) 2.2 H 2.1 H Eos # (Auto) 0.0 0.0 Baso # (Auto) 0.0 0.0 Abs Immat Gran (auto) 0.05 H 0.04 H Absolute Neuts (auto) 10.5 H 8.8 H Absolute Nucleated RBC 0.000 0.000 Nucleated RBC % (auto) 0.0 0.0 Smear Tech's Comments VERIFIED Anion Gap 13 Estim Creat Clear Calc 29.4 Estimated GFR 21 Random Glucose 86 Lactic Acid Calcium 8.6 D Total Bilirubin AST ALT Alkaline Phosphatase Total Protein Albumin TSH 0.91 Urine Color Urine Appearance Urine pH Ur Specific Violet Urine Protein Urine Glucose (UA) Urine Ketones Urine Blood Urine Nitrite Ur Leukocyte Esterase Urine RBC Urine WBC Ur Squamous Epith Cells Urine Bacteria COVID-19 ([facility]) COVID-19 Clin Com 07/24/21 05:35 MCV MCH MCHC RDW Plt Count MPV Immature Gran % (Auto) Neut % (Auto) Lymph % (Auto) [place] % (Auto) Eos % (Auto) Baso % (Auto) Lymph # (Auto) [place] # (Auto) Eos # (Auto) Baso # (Auto) Abs Immat Gran (auto) Absolute Neuts (auto) Absolute Nucleated RBC Nucleated RBC % (auto) Smear Tech's Comments Anion Gap Estim Creat Clear Calc Estimated GFR Random Glucose Lactic Acid Calcium Total Bilirubin AST ALT Alkaline Phosphatase Total Protein Albumin TSH Urine Color YELLOW Urine Appearance HAZY Urine pH 6.5 Ur Specific Violet 1.010 Urine Protein TRACE Urine Glucose (UA) NEG Urine Ketones NEG Urine Blood NEG Urine Nitrite POS H Ur Leukocyte Esterase 2+ H Urine RBC 0-2 Urine WBC 30-49 H Ur Squamous Epith Cells NONE Urine Bacteria 4+ COVID-19 ([facility]) COVID-19 Clin Com Assessment and Plan (1) Sepsis: Status: Acute Plan 61F presented with weakness, found to be septic severe sepsis suspect due to acute UTI other possible sources could be bilateral lower extremity cellulitis (stasis dermaitis more likely), old peg site cellulitis (no obvious abscess, more likely chemical irritation) continue rocephin, will add vanc for MRSA coverage follow up cultures monitor trough, bmp recent extended hospitalizaiton due to covid, s/p trachesotomy (removed), and PEG(removed) recently discharged from rehab once sepsis resolved, may need reevaluation for return to rehab HTN coreg CKD IV stable, monitor chronic hypoxic respiratory failure due to copd stable on 2L LEO cpap at night obesity weight loss opiate dependence methadone chronic diastolic chf lasix lung ca on palliative radiation therapy dvt prophylaxis - hep sq full code reason for continued hospitalization: iv abx, awaiting cutures, defervenscence Quality Stroke Does the patient have a stroke diagnosis?: No VTE Prior VTE?: No VTE Risk Level:: Medical - moderate - high VTE Device Contraindication: Treatment Not Indicated VTE Drug Contraindication: N/A - Med Ordered
--- NOTE | 2021-07-24 11:10 | PHA.PROG ---
Admission Date/Time: July 23, 2021 23:40 Indication: Severe Sepsis multifactorial - UTI, cellulitis Weight in k.718 kg Adjusted body weight in K.8 kg [place] body weight in K.3 kg Obesity Dosing Indication % IBW: 153% Serum Creatinine - Last 168 Hours 07/23/21 07/24/21 22:09 04:50 Creatinine 2.56 H 2.33 H Estimated CrCl and GFR - Last 168 Hours 07/23/21 07/24/21 22:09 04:50 Estim Creat Clear Calc 26.8 29.4 Estimated GFR 19 21 Vancomycin Loading Dose: 1750 mg Current Vancomycin Dosing Regimen:500 mg Q24H Date and Time for next Vancomycin Level to be drawn: 07/25 @ 2100 Pharmacist Comments on Vancomycin Plan: Patient is obese with poor renal function. Vancomycin will be closely monitor due to those factor. Vancomycin in obese patient can be unpredictable. Patient's last admission patient had variable vancomycin doses due to variable renal function and random levels. Compared to last admission, while patient had similar renal function as today patient was start on vancomycin 750 mg Q24H after a 2g load dosing. Patient had a level > 20 with this regimen after one dose of 750 mg. Patient was given a 1750 mg loading dose in the ED 07/23 @ 6 Will start patient on vancomycin 500 mg Q24H. Expected AUC 414 with a trough of 13.7 Will get a random level at 07/24 @ 2100 to access for safety. Patient should be in therapeutic levels post load dose Pharmacy will closely monitor renal function Claudette Camacho PharmD Vancomycin dosing will take advantage of [employer] as a clinical decision support tool that uses Bayesian modeling to calculate individual patient's pharmacokinetic parameters and forecast the patient's drug concentration time course with the target goal AUC 24 range of 400 - 600 mg/L/hr.
[2021-07-24] MEDS: Heparin Sodium,Porcine 5,000 UNIT/ML VIAL 5000 UNIT SUBCUT ×2 (11:29→22:31)
--- NOTE | 2021-07-24 12:47 | MHC.CM.PN ---
PT REPORTS SHE LIVES WITH HER BOYFRIEND AND HAS DAILY PIPELAYING FITTER SERVICES PT ALSO REPORTS BEING ACTIVE WITH ALLIED [facility] FOR PT AND SN PT REPORTS SHE IS ACTIVE WITH [facility], ALLIED DELIVERS MED DAILY PT REPORTS SHE HAS A NEBULIZER PT REPORTS SHE IS COVID-19 VACCINATED AND ALSO COVID RECOVERED PT HAS A HCP ON FILE AND HER PCP IS NANO NAVARRO DELIVERED, COPY SENT TO [facility] CURRENT DC PLAN IS HOME WITH RESUMPTION OF PIPELAYING FITTER AND [facility]IED [facility] SERVICES FAMILY TO TRANSPORT
--- NOTE | 2021-07-24 13:04 | PC.NURSE ---
Spoke with Erika Casanova RN from [facility] at 1300 regarding Methadone dose verification. Per Erika, methadone dose was confirmed with [facility], pt received 28mg of Methadone last taken yesterday 07/23. Phone number to [facility] nurse clinical care manager [phone] ext. [phone].
--- NOTE | 2021-07-24 14:02 | PC.NURSE ---
RN assumed care at 11am, Pt alert and oriented x4, calm and cooperative. Denies pain now. Ate lunch and tolerated well, denies N/V. IV intact, not infusing now. Vitals stable. Pt resting in bed, will monitor.
[2021-07-24] MEDS: 0.9 % Sodium Chloride Flush 3 ML SYRINGE IVFLUSH ×2 (15:31→22:39)
[2021-07-24] MEDS: hydrOXYzine HCL 50 MG TABLET PO (20:18)
[2021-07-24] MEDS: oxyCODONE HCl Immed Release 5 MG TABLET PO (20:18)
[2021-07-24] MEDS: cefTRIAXone sodium 1 GM in 0.9 % Sodium Chloride 50 ML IV (22:33)
[2021-07-24] MEDS: vancomycin HCL 500 MG in 0.9 % Sodium Chloride 100 ML 110 MG IV (23:28)
[2021-07-24] MEDS: clonazePAM 1 MG TABLET PO (23:33)
[2021-07-25] VITALS (9 sets, daily range): BP systolic 113–159; BP diastolic 57–94; PULSE 77–96; RESP 18–20; TEMP 36–37.1; O2SAT 96–100
[2021-07-25 06:32] LABS: Hematocrit 38.4 % (37.0-47.0); Hemoglobin 11.3 g/dl (12.0-16.0); Mean Corpuscular HGB Conc 29.4 g/dl (31.0-35.0); Mean Corpuscular Hemoglobin 26.3 pg (27.0-33.0); Mean Corpuscular Volume 89.3 fL (80.0-98.0); Mean Platelet Volume 8.4 fL (9.4-12.3); Platelet Count 270 X10*3/uL (160-400); White Blood Count 6.7 X10*3/uL (4.8-10.8)
[2021-07-25 06:59] LABS: Anion Gap 15 (12-20); Blood Urea Nitrogen 27 mg/dL (9-16); Calcium 8.6 mg/dL (8.4-10.2); Carbon Dioxide 25 mmol/L (22-29); Chloride 110 mmol/L (96-108); Creatinine Clr Calc Pharmacy 30.4; Estimated Glomerular Filt Rate 23; Glucose Fasting 68 mg/dL (60-99); Potassium 4.6 mmol/L (3.3-5.1); Sodium 145 mmol/L (135-145)
--- NOTE | 2021-07-25 08:26 | P.PNIM_ITS ---
Subjective Subjective Date of Service: 07/26/21 Interval History: ?weakness, lethargy Review of Systems leg erythema similar Denies any chest pain or shortness of breath or abdominal pain or nausea or vomiting Physical Exam Vital Signs: Vital Signs: Last Vital Signs Temp 98.0 F 07/25/21 07:59 Pulse 95 07/25/21 07:59 Resp 18 07/25/21 07:59 BP 113/57 L 07/25/21 07:59 Pulse Ox 99 07/25/21 07:59 O2 Del Method 07/25/21 07:59 O2 Flow Rate 2 07/25/21 07:53 Oxygen Flow Rate 2 07/23/21 20:59 BMI result Body Mass Index 30.9 General: AO X 3, chronicall ill appearing Resp:? CTA bilateral, no accessory muscles used CVS: S1,S2,RRR GI: soft, non tender, non distended, mild erythema at old peg site (recently removed), no obvious abscess Neuro:? motor grossly weak, alert skin: bilateral lower extremity erythema, warmth Psych: appropriate affect, appropriate insight? Objective Data Active Medications Acetaminophen (Acetaminophen 325 Mg Tablet) 650 mg PO Q6H PRN PRN Reason: Pain, Mild (Pain Scale 1-3) Last Admin: 07/24/21 22:31 Dose: 650 mg Documented By: YANET Albuterol Sulfate (Albuterol Sulfate (0.083%) 2.5 Mg/3 Ml Vial.Neb) 2.5 mg INHALE Q4H PRN PRN Reason: wheezing Albuterol/Ipratropium (Albuterol/Iprat 2.5/0.5mg 3 Ml Ampul.Neb) 3 ml INHALE RQ4H PRN PRN Reason: Shortness of Breath/Wheezing Aspirin (Aspirin 81 Mg Tab.Chew) 81 mg PO DAILY [facility] Last Admin: 07/24/21 10:02 Dose: 81 mg Documented By: ALLISON Carvedilol (Carvedilol 3.125 Mg Tablet) 3.125 mg PO BID [facility]; Protocol Last Admin: 07/24/21 20:18 Dose: 3.125 mg Documented By: YANET Clonazepam (Clonazepam 1 Mg Tablet) 1 mg PO Q4H PRN PRN Reason: anxiety Last Admin: 07/24/21 23:33 Dose: 1 mg Documented By: YANET Cyclobenzaprine HCl (Cyclobenzaprine Hcl 10 Mg Tablet) 10 mg PO TID PRN PRN Reason: muscle spasm Docusate Sodium (Docusate Sodium 100 Mg Capsule) 100 mg PO DAILY PRN PRN Reason: Constipation Fludrocortisone Acetate (Fludrocortisone Acetate 0.1 Mg Tablet) 0.1 mg PO BID [facility] Last Admin: 07/24/21 20:18 Dose: 0.1 mg Documented By: YANET Fluticasone/Vilanterol (Fluticasone/Vilanterol 100/25 Blst.W.Dev) 1 puff INHALE RDAILY [facility] Last Admin: 07/25/21 07:51 Dose: Not Given Documented By: DENISE Non-Admin Reason: Patient Refused Furosemide (Furosemide 40 Mg Tablet) 40 mg PO DAILY [facility]; Protocol Last Admin: 07/24/21 10:02 Dose: 40 mg Documented By: ALLISON Gabapentin (Gabapentin 100 Mg Capsule) 100 mg PO TID [facility] Last Admin: 07/24/21 20:18 Dose: 100 mg Documented By: YANET Heparin Sodium (Porcine) (Heparin Sodium,Porcine 5,000 Unit/Ml Vial) 5,000 unit SUBCUT Q12H [facility] Last Admin: 07/24/21 22:31 Dose: 5,000 unit Documented By: YANET Hydroxyzine HCl (Hydroxyzine Hcl 50 Mg Tablet) 50 mg PO BEDTIME [facility] Last Admin: 07/24/21 20:18 Dose: 50 mg Documented By: YANET Ceftriaxone Sodium 1 gm/ (Sodium Chloride) 50 mls @ 100 mls/hr IV Q24H [facility] Last Infusion: 07/24/21 23:21 Dose: 0 mls/hr Documented By: YANET Vancomycin HCl 500 mg/ Sodium (Chloride) 110 mls @ 110 mls/hr IV Q24H [facility] Last Infusion: 07/25/21 01:20 Dose: 0 mls/hr Documented By: YANET Methadone HCl (Methadone Hcl 10 Mg Tablet) 30 mg PO QAM [facility] Omeprazole (Omeprazole 40 Mg Capsule.Dr) 40 mg PO DAILY@0630 [facility] Last Admin: 07/25/21 05:44 Dose: Not Given Documented By: YANET Non-Admin Reason: Patient Refused Ondansetron HCl (Ondansetron Hcl 4 Mg/2 Ml Vial) 4 mg IVPUSH Q8H PRN PRN Reason: Nausea and Vomiting Pharmacy Consult (Consult Rx Vancomycin Dosing) 1 each MISCELLANE DAILY PRN PRN Reason: Consult order Pharmacy Consult (Consult Rx Perform Med Rec) 1 each MISCELLANE ONCE PRN PRN Reason: Consult order Pharmacy Consult (Consult Rx Vancomycin Dosing) 1 each MISCELLANE DAILY PRN PRN Reason: Consult order Sodium Chloride (0.9 % Sodium Chloride Flush 3 Ml Syringe) 3 ml IVFLUSH QSHIFT [facility] Last Admin: 07/24/21 22:39 Dose: 3 ml Documented By: YANET Zinc Sulfate (Zinc Sulfate 220 Mg Capsule) 220 mg PO DAILY [facility] Labs CBC & Chem 7: 07/25/21 05:32 07/26/21 05:42 Labs: Laboratory Results - last 24 hr 07/25/21 07/25/21 05:32 05:32 MCV 89.3 MCH 26.3 L MCHC 29.4 L RDW 17.0 H Plt Count 270 MPV 8.4 L Absolute Nucleated RBC 0.000 Nucleated RBC % (auto) 0.0 Anion Gap 15 Estim Creat Clear Calc 30.4 Estimated GFR 23 Fasting Glucose 68 Calcium 8.6 Microbiology Microbiology Results: Microbiology 07/23/21 22:12 Blood Culture - Preliminary Blood - Venous No growth after 24 hours. 07/23/21 22:09 Blood Culture - Preliminary Blood - Venous No growth after 24 hours. Assessment and Plan (1) UTI (urinary tract infection): Status: Acute (2) Bilateral cellulitis of lower leg: Status: Acute Plan 61F presented with weakness, found to be septic severe sepsis suspect due to acute UTI other possible sources could be bilateral lower extremity cellulitis (stasis dermaitis more likely), old peg site cellulitis (no obvious abscess, more likely chemical irritation) continue rocephin, will add vanc for MRSA coverage follow up cultures monitor trough, bmp recent extended hospitalizaiton due to covid, s/p trachesotomy (removed), and PEG(removed) recently discharged from rehab once sepsis resolved, may need reevaluation for return to rehab HTN coreg CKD IV stable, monitor chronic hypoxic respiratory failure due to copd stable on 2L LEO cpap at night obesity weight loss opiate dependence methadone chronic diastolic chf lasix lung ca on palliative radiation therapy dvt prophylaxis - hep sq full code reason for continued hospitalization: iv abx, awaiting cutures, defervenscence Quality Stroke Does the patient have a stroke diagnosis?: No VTE Prior VTE?: No VTE Risk Level:: Medical - moderate - high VTE Device Contraindication: Treatment Not Indicated VTE Drug Contraindication: N/A - Med Ordered
[2021-07-25] MEDS: 0.9 % Sodium Chloride Flush 3 ML SYRINGE IVFLUSH ×2 (09:21→15:37)
[2021-07-25] MEDS: Fludrocortisone Acetate 0.1 MG TABLET PO ×2 (09:22→20:11)
[2021-07-25] MEDS: Gabapentin 100 MG CAPSULE PO ×3 (09:22→20:11)
[2021-07-25] MEDS: Zinc Sulfate 220 MG CAPSULE PO (09:22)
[2021-07-25] MEDS: Furosemide 40 MG TABLET PO (09:22)
[2021-07-25] MEDS: carvediloL 3.125 MG TABLET PO ×2 (09:22→20:12)
[2021-07-25] MEDS: Aspirin 81 MG TAB.CHEW PO (09:22)
[2021-07-25] MEDS: methADONE HCl 20 MG/2 ML ORAL.CONC 30 MG PO (10:45)
[2021-07-25] MEDS: Acetaminophen 325 MG TABLET 650 MG PO ×2 (12:20→20:23)
[2021-07-25] MEDS: Heparin Sodium,Porcine 5,000 UNIT/ML VIAL 5000 UNIT SUBCUT (12:21)
--- NOTE | 2021-07-25 13:02 | MHC.CM.PN ---
NO PLAN FOR DC TODAY. STILL MONITORING
--- NOTE | 2021-07-25 13:12 | PM.EVENT ---
Event Note Date of Service: 07/25/21 Event Note: Addiction consult requested chart reviewed, patient already receiving methadone and established with services in the community, including [facility] which administers methadone.
[2021-07-25] MEDS: Cyclobenzaprine HCl 10 MG TABLET PO (18:41)
[2021-07-25] MEDS: clonazePAM 1 MG TABLET PO (18:41)
[2021-07-25] MEDS: hydrOXYzine HCL 50 MG TABLET PO (20:11)
[2021-07-25 21:27] LABS: Vancomycin Random 13.8 mcg/mL (15-20)
--- NOTE | 2021-07-25 21:37 | HE.PHANOTE ---
Vanco increased to 750mg, although trough looks somewhat within range, AUC is not effective (382). 750 mg dose should increase auc>400 after tonight's dose
[2021-07-25] MEDS: cefTRIAXone sodium 1 GM in 0.9 % Sodium Chloride 50 ML IV (22:56)
[2021-07-25] MEDS: vancomycin HCL 750 MG in 0.9 % Sodium Chloride 250 ML 265 MG IV (23:32)
[2021-07-26 03:20] VITALS: BP 159/89; PULSE 80; RESP 18; TEMP 36.1; O2SAT 97
[2021-07-26] MEDS: Heparin Sodium,Porcine 5,000 UNIT/ML VIAL 5000 UNIT SUBCUT ×2 (03:27→12:57)
[2021-07-26] MEDS: Omeprazole 40 MG CAPSULE.DR PO (06:01)
[2021-07-26 07:16] LABS: Creatinine Clr Calc Pharmacy 33.6; Estimated Glomerular Filt Rate 26
[2021-07-26 08:00] VITALS: BP 159/93; PULSE 80; RESP 18; TEMP 36.8
[2021-07-26] MEDS: 0.9 % Sodium Chloride Flush 3 ML SYRINGE IVFLUSH ×2 (08:15→14:37)
[2021-07-26] MEDS: Furosemide 40 MG TABLET PO (08:15)
[2021-07-26] MEDS: Aspirin 81 MG TAB.CHEW PO (08:15)
[2021-07-26] MEDS: carvediloL 3.125 MG TABLET PO ×2 (08:15→22:23)
[2021-07-26] MEDS: Zinc Sulfate 220 MG CAPSULE PO (08:15)
[2021-07-26] MEDS: Fludrocortisone Acetate 0.1 MG TABLET PO ×2 (08:15→22:23)
[2021-07-26] MEDS: Gabapentin 100 MG CAPSULE PO ×4 (08:15→22:23)
[2021-07-26] MEDS: methADONE HCl 20 MG/2 ML ORAL.CONC 30 MG PO (08:16)
--- NOTE | 2021-07-26 11:10 | P.PNIM_ITS ---
Subjective Subjective Date of Service: 07/26/21 Interval History: cellulitis,uti Review of Systems somewhat improvingleg erythema ?Denies any chest pain or shortness of breath or abdominal pain or nausea or vomiting, weakness seems slowly improving Physical Exam Vital Signs: Vital Signs: Last Vital Signs Temp 98.2 F 07/26/21 08:00 Pulse 80 07/26/21 08:00 Resp 18 07/26/21 08:00 BP 159/93 H 07/26/21 08:00 Pulse Ox 97 07/26/21 03:20 O2 Del Method 07/26/21 03:20 O2 Flow Rate 2 07/26/21 03:20 Oxygen Flow Rate 2 07/23/21 20:59 BMI result Body Mass Index 30.9 General: AO X 3, chronicall ill appearing Resp:? CTA bilateral, no accessory muscles used CVS: S1,S2,RRR GI: soft, non tender, non distended, mild erythema at old peg site (recently removed)-erythema improving, no obvious abscess Neuro:? motor grossly weak, alert skin: bilateral lower extremity erythema, warmth-somewhat improving Psych: appropriate affect, appropriate insight? Objective Data Active Medications Acetaminophen (Acetaminophen 325 Mg Tablet) 650 mg PO Q6H PRN PRN Reason: Pain, Mild (Pain Scale 1-3) Last Admin: 07/25/21 20:23 Dose: 650 mg Documented By: ALISA Albuterol Sulfate (Albuterol Sulfate (0.083%) 2.5 Mg/3 Ml Vial.Neb) 2.5 mg INHALE Q4H PRN PRN Reason: wheezing Albuterol/Ipratropium (Albuterol/Iprat 2.5/0.5mg 3 Ml Ampul.Neb) 3 ml INHALE RQ4H PRN PRN Reason: Shortness of Breath/Wheezing Aspirin (Aspirin 81 Mg Tab.Chew) 81 mg PO DAILY [facility] Last Admin: 07/26/21 08:15 Dose: 81 mg Documented By: GAY Carvedilol (Carvedilol 3.125 Mg Tablet) 3.125 mg PO BID [facility]; Protocol Last Admin: 07/26/21 08:15 Dose: 3.125 mg Documented By: GAY Clonazepam (Clonazepam 1 Mg Tablet) 1 mg PO Q4H PRN PRN Reason: anxiety Last Admin: 07/25/21 18:41 Dose: 1 mg Documented By: STEVIE Cyclobenzaprine HCl (Cyclobenzaprine Hcl 10 Mg Tablet) 10 mg PO TID PRN PRN Reason: muscle spasm Last Admin: 07/25/21 18:41 Dose: 10 mg Documented By: STEVIE Docusate Sodium (Docusate Sodium 100 Mg Capsule) 100 mg PO DAILY PRN PRN Reason: Constipation Doxycycline Hyclate (Doxycycline Hyclate 100 Mg Tablet) 100 mg PO Q12H [facility] Last Admin: 07/26/21 10:28 Dose: 100 mg Documented By: GAY Fludrocortisone Acetate (Fludrocortisone Acetate 0.1 Mg Tablet) 0.1 mg PO BID [facility] Last Admin: 07/26/21 08:15 Dose: 0.1 mg Documented By: GAY Fluticasone/Vilanterol (Fluticasone/Vilanterol 100/25 Blst.W.Dev) 1 puff INHALE RDAILY [facility] Last Admin: 07/26/21 07:30 Dose: Not Given Documented By: DENISE Non-Admin Reason: Patient Refused Furosemide (Furosemide 40 Mg Tablet) 40 mg PO DAILY [facility]; Protocol Last Admin: 07/26/21 08:15 Dose: 40 mg Documented By: GAY Gabapentin (Gabapentin 100 Mg Capsule) 100 mg PO TID [facility] Last Admin: 07/26/21 08:15 Dose: 100 mg Documented By: GAY Heparin Sodium (Porcine) (Heparin Sodium,Porcine 5,000 Unit/Ml Vial) 5,000 unit SUBCUT Q12H [facility] Last Admin: 07/26/21 03:27 Dose: 5,000 unit Documented By: ALISA Hydroxyzine HCl (Hydroxyzine Hcl 50 Mg Tablet) 50 mg PO BEDTIME [facility] Last Admin: 07/25/21 20:11 Dose: 50 mg Documented By: ALISA Ceftriaxone Sodium 1 gm/ (Sodium Chloride) 50 mls @ 100 mls/hr IV Q24H [facility] Last Infusion: 07/25/21 23:34 Dose: 0 mls/hr Documented By: ALISA Methadone HCl (Methadone Hcl 20 Mg/2 Ml Oral.Conc) 30 mg PO DAILY [facility] Last Admin: 07/26/21 08:16 Dose: 30 mg Documented By: GAY Omeprazole (Omeprazole 40 Mg Capsule.) 40 mg PO DAILY@0630 [facility] Last Admin: 07/26/21 06:01 Dose: 40 mg Documented By: ALISA Ondansetron HCl (Ondansetron Hcl 4 Mg/2 Ml Vial) 4 mg IVPUSH Q8H PRN PRN Reason: Nausea and Vomiting Pharmacy Consult (Consult Rx Vancomycin Dosing) 1 each MISCELLANE DAILY PRN PRN Reason: Consult order Pharmacy Consult (Consult Rx Perform Med Rec) 1 each MISCELLANE ONCE PRN PRN Reason: Consult order Pharmacy Consult (Consult Rx Vancomycin Dosing) 1 each MISCELLANE DAILY PRN PRN Reason: Consult order Sodium Chloride (0.9 % Sodium Chloride Flush 3 Ml Syringe) 3 ml IVFLUSH QSHIFT [facility] Last Admin: 07/26/21 08:15 Dose: 3 ml Documented By: GAY Zinc Sulfate (Zinc Sulfate 220 Mg Capsule) 220 mg PO DAILY [facility] Last Admin: 07/26/21 08:15 Dose: 220 mg Documented By: GAY Labs CBC & Chem 7: 07/25/21 05:32 07/26/21 05:42 Labs: Laboratory Results - last 24 hr 07/25/21 07/26/21 20:50 05:42 Estim Creat Clear Calc 33.6 Estimated GFR 26 Random Vancomycin 13.8 L Microbiology Microbiology Results: Microbiology 07/24/21 Unknown Urine Culture - Preliminary Urine clean catch - Clean Catch Midstream Klebsiella pneumoniae 07/23/21 22:12 Blood Culture - Preliminary Blood - Venous No growth after 48 hours. 07/23/21 22:09 Blood Culture - Preliminary Blood - Venous No growth after 48 hours. Assessment and Plan (1) UTI (urinary tract infection): Status: Acute (2) Bilateral cellulitis of lower leg: Status: Acute Plan 61F presented with weakness, found to be septic severe sepsis suspect due to acute UTI other possible sources could be bilateral lower extremity cellulitis (stasis dermaitis more likely)improving, old peg site cellulitis (no obvious abscess, more likely chemical irritation) continue rocephin, will add vanc for MRSA coverage follow up cultures-urine culture : Klebsiella pneumonia blood culture negative at 48 hours monitor trough, bmp switch vanco to doxycycine,continue iv ceftriaxone day3 -continue until urine - senstivities come back recent extended hospitalizaiton due to covid, s/p trachesotomy (removed), and PEG(removed) recently discharged from rehab once sepsis resolved, may need reevaluation for return to rehab HTN coreg CKD IV stable, monitor chronic hypoxic respiratory failure due to copd stable on 2L LEO cpap at night obesity weight loss opiate dependence methadone chronic diastolic chf lasix lung ca on palliative radiation therapy dvt prophylaxis - hep sq full code reason for continued hospitalization: iv abx, awaiting cutures and senstivities Quality Stroke Does the patient have a stroke diagnosis?: No VTE Prior VTE?: No VTE Risk Level:: Medical - moderate - high VTE Device Contraindication: Treatment Not Indicated VTE Drug Contraindication: N/A - Med Ordered
[2021-07-26 12:00] VITALS: BP 145/80; PULSE 84; RESP 18; TEMP 36.9; O2SAT 99
[2021-07-26] MEDS: Cyclobenzaprine HCl 10 MG TABLET PO ×2 (13:00→22:30)
[2021-07-26] MEDS: Acetaminophen 325 MG TABLET 650 MG PO ×2 (13:00→22:29)
[2021-07-26 14:39] VITALS: BP 150/90; PULSE 94; RESP 18; TEMP 36.9; O2SAT 95
[2021-07-26] MEDS: traZODone HCL 25 MG HALFTAB PO (16:23)
[2021-07-26 19:55] VITALS: BP 143/77; PULSE 85; RESP 18; TEMP 36.8; O2SAT 97
[2021-07-26] MEDS: hydrOXYzine HCL 50 MG TABLET PO (22:23)
[2021-07-26] MEDS: cefTRIAXone sodium 1 GM in 0.9 % Sodium Chloride 50 ML IV (22:23)
[2021-07-27] VITALS (7 sets, daily range): BP systolic 137–164; BP diastolic 73–96; PULSE 80–92; RESP 17–18; TEMP 36.2–37.7; O2SAT 97–100
[2021-07-27] MEDS: Heparin Sodium,Porcine 5,000 UNIT/ML VIAL 5000 UNIT SUBCUT ×2 (00:57→11:24)
[2021-07-27] MEDS: 0.9 % Sodium Chloride Flush 3 ML SYRINGE IVFLUSH ×3 (01:43→16:06)
[2021-07-27] MEDS: Omeprazole 40 MG CAPSULE.DR PO (06:03)
[2021-07-27 07:33] LABS: Creatinine Clr Calc Pharmacy 35.2; Estimated Glomerular Filt Rate 27
[2021-07-27] MEDS: Furosemide 40 MG TABLET PO (09:12)
[2021-07-27] MEDS: Zinc Sulfate 220 MG CAPSULE PO (09:12)
[2021-07-27] MEDS: carvediloL 3.125 MG TABLET PO (09:12)
[2021-07-27] MEDS: Aspirin 81 MG TAB.CHEW PO (09:12)
[2021-07-27] MEDS: Gabapentin 100 MG CAPSULE PO ×3 (09:12→21:27)
[2021-07-27] MEDS: Fludrocortisone Acetate 0.1 MG TABLET PO ×2 (09:12→21:27)
[2021-07-27] MEDS: methADONE HCl 20 MG/2 ML ORAL.CONC 30 MG PO (09:13)
[2021-07-27] MEDS: Acetaminophen 325 MG TABLET 650 MG PO ×2 (09:19→16:05)
[2021-07-27] MEDS: Cyclobenzaprine HCl 10 MG TABLET PO ×2 (09:20→16:05)
--- NOTE | 2021-07-27 11:50 | HO.PM.IMPN ---
Subjective Subjective Date of Service: 07/27/21 Interval History: leg cellulitis/esbl uti Review of Systems Denies any new complaints including chest pain or shortness of breath or abdominal pain or any urinary complaints currently Physical Exam Vital Signs: Vital Signs: Last Vital Signs Temp 99.8 F 07/27/21 08:00 Pulse 84 07/27/21 08:00 Resp 18 07/27/21 08:00 BP 164/96 H 07/27/21 08:00 Pulse Ox 100 07/27/21 08:00 O2 Del Method 07/27/21 08:00 O2 Flow Rate 2 07/27/21 08:00 Oxygen Flow Rate 2 07/23/21 20:59 BMI result Body Mass Index 30.9 General: AO X 3, chronicall ill appearing Resp:? CTA bilateral, no accessory muscles used CVS: S1,S2,RRR GI: soft, non tender, non distended, mild erythema at old peg site (recently removed), no obvious abscess Neuro:? motor grossly weak, alert skin: bilateral lower extremity erythema, warmth improving Psych: appropriate affect, appropriate insight? Objective Data Active Medications Acetaminophen (Acetaminophen 325 Mg Tablet) 650 mg PO Q6H PRN PRN Reason: Pain, Mild (Pain Scale 1-3) Last Admin: 07/27/21 09:19 Dose: 650 mg Documented By: DEBO Albuterol Sulfate (Albuterol Sulfate (0.083%) 2.5 Mg/3 Ml Vial.Neb) 2.5 mg INHALE Q4H PRN PRN Reason: wheezing Albuterol/Ipratropium (Albuterol/Iprat 2.5/0.5mg 3 Ml Ampul.Neb) 3 ml INHALE RQ4H PRN PRN Reason: Shortness of Breath/Wheezing Aspirin (Aspirin 81 Mg Tab.Chew) 81 mg PO DAILY [facility] Last Admin: 07/27/21 09:12 Dose: 81 mg Documented By: DEBO Clonazepam (Clonazepam 1 Mg Tablet) 1 mg PO Q4H PRN PRN Reason: anxiety Last Admin: 07/25/21 18:41 Dose: 1 mg Documented By: STEVIE Cyclobenzaprine HCl (Cyclobenzaprine Hcl 10 Mg Tablet) 10 mg PO TID PRN PRN Reason: muscle spasm Last Admin: 07/27/21 09:20 Dose: 10 mg Documented By: DEBO Docusate Sodium (Docusate Sodium 100 Mg Capsule) 100 mg PO DAILY PRN PRN Reason: Constipation Doxycycline Hyclate (Doxycycline Hyclate 100 Mg Tablet) 100 mg PO Q12H [facility] Last Admin: 07/27/21 09:13 Dose: 100 mg Documented By: DEBO Fludrocortisone Acetate (Fludrocortisone Acetate 0.1 Mg Tablet) 0.1 mg PO BID [facility] Last Admin: 07/27/21 09:12 Dose: 0.1 mg Documented By: DEBO Fluticasone/Vilanterol (Fluticasone/Vilanterol 100/25 Blst.W.Dev) 1 puff INHALE RDAILY [facility] Last Admin: 07/27/21 11:31 Dose: Not Given Documented By: SELENE Non-Admin Reason: Med Not Available Furosemide (Furosemide 40 Mg Tablet) 40 mg PO DAILY [facility]; Protocol Last Admin: 07/27/21 09:12 Dose: 40 mg Documented By: DEBO Gabapentin (Gabapentin 100 Mg Capsule) 100 mg PO TID [facility] Last Admin: 07/27/21 09:12 Dose: 100 mg Documented By: DEBO Heparin Sodium (Porcine) (Heparin Sodium,Porcine 5,000 Unit/Ml Vial) 5,000 unit SUBCUT Q12H [facility] Last Admin: 07/27/21 11:24 Dose: 5,000 unit Documented By: DEBO Hydroxyzine HCl (Hydroxyzine Hcl 50 Mg Tablet) 50 mg PO BEDTIME [facility] Last Admin: 07/26/21 22:23 Dose: 50 mg Documented By: ALISA Meropenem 1 gm/ Sodium (Chloride) 100 mls @ 200 mls/hr IV Q12H [facility] Last Admin: 07/27/21 11:25 Dose: 200 mls/hr Documented By: DEBO Methadone HCl (Methadone Hcl 20 Mg/2 Ml Oral.Conc) 30 mg PO DAILY [facility] Last Admin: 07/27/21 09:13 Dose: 30 mg Documented By: DEBO Omeprazole (Omeprazole 40 Mg Capsule.Dr) 40 mg PO DAILY@0630 [facility] Last Admin: 07/27/21 06:03 Dose: 40 mg Documented By: ALISA Ondansetron HCl (Ondansetron Hcl 4 Mg/2 Ml Vial) 4 mg IVPUSH Q8H PRN PRN Reason: Nausea and Vomiting Pharmacy Consult (Consult Rx Vancomycin Dosing) 1 each MISCELLANE DAILY PRN PRN Reason: Consult order Pharmacy Consult (Consult Rx Perform Med Rec) 1 each MISCELLANE ONCE PRN PRN Reason: Consult order Pharmacy Consult (Consult Rx Vancomycin Dosing) 1 each MISCELLANE DAILY PRN PRN Reason: Consult order Sodium Chloride (0.9 % Sodium Chloride Flush 3 Ml Syringe) 3 ml IVFLUSH QSHIFT [facility] Last Admin: 07/27/21 09:13 Dose: 3 ml Documented By: DEBO Zinc Sulfate (Zinc Sulfate 220 Mg Capsule) 220 mg PO DAILY [facility] Last Admin: 07/27/21 09:12 Dose: 220 mg Documented By: DEBO Labs CBC & Chem 7: 07/25/21 05:32 07/27/21 05:43 Labs: Laboratory Results - last 24 hr 07/27/21 05:43 Estim Creat Clear Calc 35.2 Estimated GFR 27 Microbiology Microbiology Results: Microbiology 07/24/21 Unknown Urine Culture - Final Urine clean catch - Clean Catch Midstream Klebsiella pneumoniae Assessment and Plan (1) UTI (urinary tract infection): Status: Acute (2) Bilateral cellulitis of lower leg: Status: Acute Plan 61F presented with weakness, found to be septic severe sepsis suspect due to acute UTI other possible sources could be bilateral lower extremity cellulitis (stasis dermaitis more likely)improving, old peg site cellulitis (no obvious abscess, more likely chemical irritation) continue rocephin, will add vanc for MRSA coverage follow up cultures-urine culture : Klebsiella pneumonia-esbl blood culture negative at 48 hours as switch vanco to doxycycine,continue iv ceftriaxone day3 -switched to doripenem day1. id eval recent extended hospitalizaiton due to covid, s/p trachesotomy (removed), and PEG(removed) recently discharged from rehab once sepsis resolved, may need reevaluation for return to rehab HTN coreg CKD IV stable, monitor chronic hypoxic respiratory failure due to copd stable on 2L LEO cpap at night obesity weight loss opiate dependence methadone chronic diastolic chf lasix lung ca on palliative radiation therapy dvt prophylaxis - hep sq full code reason for continued hospitalization: iv abx, awaiting cutures and senstivities Quality Stroke Does the patient have a stroke diagnosis?: No VTE Prior VTE?: No VTE Risk Level:: Medical - moderate - high VTE Device Contraindication: Treatment Not Indicated VTE Drug Contraindication: N/A - Med Ordered
[2021-07-27] MEDS: clonazePAM 1 MG TABLET PO ×2 (16:05→21:29)
[2021-07-27] MEDS: hydrOXYzine HCL 50 MG TABLET PO (21:27)
[2021-07-28] VITALS (8 sets, daily range): BP systolic 128–162; BP diastolic 77–97; PULSE 84–108; RESP 18–22; TEMP 36.3–37.2; O2SAT 94–100
[2021-07-28] MEDS: Heparin Sodium,Porcine 5,000 UNIT/ML VIAL 5000 UNIT SUBCUT ×2 (00:47→12:27)
[2021-07-28] MEDS: 0.9 % Sodium Chloride Flush 3 ML SYRINGE IVFLUSH ×3 (00:52→15:12)
[2021-07-28] MEDS: Omeprazole 40 MG CAPSULE.DR PO (05:59)
[2021-07-28 07:33] LABS: Estimated Glomerular Filt Rate 28
[2021-07-28] MEDS: Fluticasone/Vilanterol 100/25 BLST.W.DEV 1 PUFF INHALE (08:36)
[2021-07-28] MEDS: Aspirin 81 MG TAB.CHEW PO (08:57)
[2021-07-28] MEDS: methADONE HCl 20 MG/2 ML ORAL.CONC 30 MG PO (08:57)
[2021-07-28] MEDS: Fludrocortisone Acetate 0.1 MG TABLET PO ×2 (08:57→21:20)
[2021-07-28] MEDS: Zinc Sulfate 220 MG CAPSULE PO (08:57)
[2021-07-28] MEDS: Furosemide 40 MG TABLET PO (08:57)
[2021-07-28] MEDS: Gabapentin 100 MG CAPSULE PO ×3 (08:57→21:21)
--- NOTE | 2021-07-28 11:15 | HO.PM.IMPN ---
Subjective Subjective Date of Service: 07/28/21 Interval History: uti-esbl, cellulitis Review of Systems denies any chest pain or sob somewhat discomfort in lower legs cellulitis area Physical Exam Vital Signs: Vital Signs: Last Vital Signs Temp 98.2 F 07/28/21 07:39 Pulse 108 H 07/28/21 09:45 Resp 22 H 07/28/21 08:38 BP 143/97 H 07/28/21 07:39 Pulse Ox 99 07/28/21 07:39 O2 Del Method 07/28/21 07:39 O2 Flow Rate 2 07/28/21 07:39 Oxygen Flow Rate 2 07/23/21 20:59 BMI result Body Mass Index 30.9 General: AO X 3, chronicall sick Resp:? CTA bilateral,no rales or wheezinf CVS: S1,S2,RRR GI: soft, non tender, non distended, mild erythema at old peg site (recently removed), no obvious abscess Neuro:? motor grossly weak, alert skin: bilateral lower extremity erythema, warmth improving Psych: appropriate affect, appropriate insight Objective Data Active Medications Acetaminophen (Acetaminophen 325 Mg Tablet) 650 mg PO Q6H PRN PRN Reason: Pain, Mild (Pain Scale 1-3) Last Admin: 07/27/21 16:05 Dose: 650 mg Documented By: JUDE Albuterol Sulfate (Albuterol Sulfate (0.083%) 2.5 Mg/3 Ml Vial.Neb) 2.5 mg INHALE Q4H PRN PRN Reason: wheezing Albuterol/Ipratropium (Albuterol/Iprat 2.5/0.5mg 3 Ml Ampul.Neb) 3 ml INHALE RQ4H PRN PRN Reason: Shortness of Breath/Wheezing Aspirin (Aspirin 81 Mg Tab.Chew) 81 mg PO DAILY [facility] Last Admin: 07/28/21 08:57 Dose: 81 mg Documented By: BROWN Clonazepam (Clonazepam 1 Mg Tablet) 1 mg PO Q4H PRN PRN Reason: anxiety Last Admin: 07/27/21 21:29 Dose: 1 mg Documented By: JUDE Cyclobenzaprine HCl (Cyclobenzaprine Hcl 10 Mg Tablet) 10 mg PO TID PRN PRN Reason: muscle spasm Last Admin: 07/27/21 16:05 Dose: 10 mg Documented By: JUDE Docusate Sodium (Docusate Sodium 100 Mg Capsule) 100 mg PO DAILY PRN PRN Reason: Constipation Doxycycline Hyclate (Doxycycline Hyclate 100 Mg Tablet) 100 mg PO Q12H [facility] Last Admin: 07/27/21 21:27 Dose: 100 mg Documented By: JUDE Fludrocortisone Acetate (Fludrocortisone Acetate 0.1 Mg Tablet) 0.1 mg PO BID [facility] Last Admin: 07/28/21 08:57 Dose: 0.1 mg Documented By: BROWN Fluticasone/Vilanterol (Fluticasone/Vilanterol 100/25 Blst.W.Dev) 1 puff INHALE RDAILY [facility] Last Admin: 07/28/21 08:36 Dose: 1 puff Documented By: SAULO Furosemide (Furosemide 40 Mg Tablet) 40 mg PO DAILY [facility]; Protocol Last Admin: 07/28/21 08:57 Dose: 40 mg Documented By: BROWN Gabapentin (Gabapentin 100 Mg Capsule) 100 mg PO TID [facility] Last Admin: 07/28/21 08:57 Dose: 100 mg Documented By: BROWN Heparin Sodium (Porcine) (Heparin Sodium,Porcine 5,000 Unit/Ml Vial) 5,000 unit SUBCUT Q12H [facility] Last Admin: 07/28/21 00:47 Dose: 5,000 unit Documented By: LAVERNE Hydroxyzine HCl (Hydroxyzine Hcl 50 Mg Tablet) 50 mg PO BEDTIME [facility] Last Admin: 07/27/21 21:27 Dose: 50 mg Documented By: JUDE Meropenem 1 gm/ Sodium (Chloride) 100 mls @ 200 mls/hr IV Q12H [facility] Last Infusion: 07/27/21 23:27 Dose: 0 mls/hr Documented By: JUDE Methadone HCl (Methadone Hcl 20 Mg/2 Ml Oral.Conc) 30 mg PO DAILY [facility] Last Admin: 07/28/21 08:57 Dose: 30 mg Documented By: BROWN Omeprazole (Omeprazole 40 Mg Capsule.Dr) 40 mg PO DAILY@0630 [facility] Last Admin: 07/28/21 05:59 Dose: 40 mg Documented By: LAVERNE Ondansetron HCl (Ondansetron Hcl 4 Mg/2 Ml Vial) 4 mg IVPUSH Q8H PRN PRN Reason: Nausea and Vomiting Pharmacy Consult (Consult Rx Vancomycin Dosing) 1 each MISCELLANE DAILY PRN PRN Reason: Consult order Pharmacy Consult (Consult Rx Perform Med Rec) 1 each MISCELLANE ONCE PRN PRN Reason: Consult order Pharmacy Consult (Consult Rx Vancomycin Dosing) 1 each MISCELLANE DAILY PRN PRN Reason: Consult order Sodium Chloride (0.9 % Sodium Chloride Flush 3 Ml Syringe) 3 ml IVFLUSH QSHIFT [facility] Last Admin: 07/28/21 08:57 Dose: 3 ml Documented By: BROWN Zinc Sulfate (Zinc Sulfate 220 Mg Capsule) 220 mg PO DAILY [facility] Last Admin: 07/28/21 08:57 Dose: 220 mg Documented By: BROWN Labs CBC & Chem 7: 07/25/21 05:32 07/28/21 06:47 Labs: Laboratory Results - last 24 hr 07/28/21 06:47 Estim Creat Clear Calc 36.0 Estimated GFR 28 Microbiology Microbiology Results: Microbiology 07/24/21 Unknown Urine Culture - Final Urine clean catch - Clean Catch Midstream Klebsiella pneumoniae Assessment and Plan (1) UTI (urinary tract infection): Status: Acute (2) Bilateral cellulitis of lower leg: Status: Acute Plan 61F presented with weakness, found to be septic severe sepsis suspect due to acute UTI other possible sources could be bilateral lower extremity cellulitis (stasis dermaitis more likely)improving, old peg site cellulitis (no obvious abscess, more likely chemical irritation) continue rocephin, will add vanc for MRSA coverage follow up cultures-urine culture : Klebsiella pneumonia-esbl blood culture negative at 48 hours switch vanco to doxycycine,continue iv ceftriaxone day3 -switched to doripenem day03/24 id eval-recomended 2 weeks antibiotics -midline order placed. recent extended hospitalizaiton due to covid, s/p trachesotomy (removed), and PEG(removed) recently discharged from rehab once sepsis resolved, may need reevaluation for return to rehab HTN coreg CKD IV stable, monitor chronic hypoxic respiratory failure due to copd stable on 2L LEO cpap at night obesity weight loss opiate dependence methadone chronic diastolic chf lasix lung ca on palliative radiation therapy dvt prophylaxis - hep sq once gets picc line , pt recomended str full code reason for continued hospitalization: iv abx,midline placement and Quality Stroke Does the patient have a stroke diagnosis?: No VTE Prior VTE?: No VTE Risk Level:: Medical - moderate - high VTE Device Contraindication: Treatment Not Indicated VTE Drug Contraindication: N/A - Med Ordered
--- NOTE | 2021-07-28 13:07 | P.CNID_ITS ---
History of Present Illness Data of Consult Service Date: 07/28/21 Requesting physician: Jabier Stoll Primary Care Provider: Vaelrie Castano MD HPI Reason for consult: weakness,Klebsiella drug resistant UTI She presents with weakness. She had just left Rehab two days earlier. She reports urinary frequency but no hematuria. She had Witt in past but denies one within last month. She has 30-40 WBC and Klebsiella urine sensitive to Levaquin and Ertapenem. She has reported bilateral cellulitis Review of Systems Review of Systems: Yes all other systems are reviewed and are negative [facility] Past Medical History Medical History COVID-19 (~03/2021) Dyslipidemia Family history of colon cancer History of claustrophobia History of seizure HTN (hypertension) Hx of cardiac arrest (~2015) Methadone maintenance therapy patient Multiple fractures of ribs Obesity Olecranon bursitis of left elbow Osteoarthritis of ankles, bilateral Osteopenia (~2017) Tubulovillous adenoma of large intestine (~2020) Umbilical hernia Vitamin D deficiency Family History Family History Father Diabetes mellitus Mother Depression Mental health disorder Maternal Grandfather Colon cancer Sister No problems noted. Son No problems noted. Daughter No problems noted. Daughter No problems noted. Surgical History Surgical History History of colonoscopy (~2020) History of esophagogastroduodenoscopy (EGD) (~2021) History of hand surgery History of laparoscopy (~2012) History of lung biopsy (~2019) History of removal of ureteral stent (~2013) History of tubal ligation Social History Social History Household Members: Significant Other Housing: Other Housing Other:: mobile home Are you a primary care coordinator to a significant other at home: No Do you presently have visiting nurse or other home services: No Unable to assess alcohol history related to: Unable to respond Alcohol intake: never Patient Tobacco Use Status: Former Tobacco user Quit Date: 2011 Tobacco use type: Cigarette Years Smoked: 25 yrs Substance Use Type: Heroin Advance Directives Date on File: 03/21/21 service: No Current occupational status: unemployed and disabled Meds Allergies Allergy/AdvReac Type Severity Reaction Status Date / Time ciprofloxacin [From Cipro] Allergy Unknown HIVES/SWELLING, Verified 02/20/21 15:09 THROAT CLOSES shellfish derived Allergy Unknown UNKNOWN Verified 02/20/21 15:09 [SHELLFISH DERIVED] NSAIDS AdvReac Unknown avoid cue Verified 02/20/21 15:09 to kidney disease Active Medications: Current Medications Acetaminophen (Acetaminophen 325 Mg Tablet) 650 mg PO Q6H PRN PRN Reason: Pain, Mild (Pain Scale 1-3) Last Admin: 07/27/21 16:05 Dose: 650 mg Albuterol Sulfate (Albuterol Sulfate (0.083%) 2.5 Mg/3 Ml Vial.Neb) 2.5 mg INHALE Q4H PRN PRN Reason: wheezing Albuterol/Ipratropium (Albuterol/Iprat 2.5/0.5mg 3 Ml Ampul.Neb) 3 ml INHALE RQ4H PRN PRN Reason: Shortness of Breath/Wheezing Aspirin (Aspirin 81 Mg Tab.Chew) 81 mg PO DAILY [facility] Last Admin: 07/28/21 08:57 Dose: 81 mg Clonazepam (Clonazepam 1 Mg Tablet) 1 mg PO Q4H PRN PRN Reason: anxiety Last Admin: 07/27/21 21:29 Dose: 1 mg Cyclobenzaprine HCl (Cyclobenzaprine Hcl 10 Mg Tablet) 10 mg PO TID PRN PRN Reason: muscle spasm Last Admin: 07/27/21 16:05 Dose: 10 mg Docusate Sodium (Docusate Sodium 100 Mg Capsule) 100 mg PO DAILY PRN PRN Reason: Constipation Doxycycline Hyclate (Doxycycline Hyclate 100 Mg Tablet) 100 mg PO Q12H [facility] Last Admin: 07/28/21 12:27 Dose: 100 mg Fludrocortisone Acetate (Fludrocortisone Acetate 0.1 Mg Tablet) 0.1 mg PO BID [facility] Last Admin: 07/28/21 08:57 Dose: 0.1 mg Fluticasone/Vilanterol (Fluticasone/Vilanterol 100/25 Blst.W.Dev) 1 puff INHALE RDAILY [facility] Last Admin: 07/28/21 08:36 Dose: 1 puff Furosemide (Furosemide 40 Mg Tablet) 40 mg PO DAILY [facility]; Protocol Last Admin: 07/28/21 08:57 Dose: 40 mg Gabapentin (Gabapentin 100 Mg Capsule) 100 mg PO TID [facility] Last Admin: 07/28/21 08:57 Dose: 100 mg Heparin Sodium (Porcine) (Heparin Sodium,Porcine 5,000 Unit/Ml Vial) 5,000 unit SUBCUT Q12H [facility] Last Admin: 07/28/21 12:27 Dose: 5,000 unit Hydroxyzine HCl (Hydroxyzine Hcl 50 Mg Tablet) 50 mg PO BEDTIME [facility] Last Admin: 07/27/21 21:27 Dose: 50 mg Meropenem 1 gm/ Sodium (Chloride) 100 mls @ 200 mls/hr IV Q12H [facility] Last Admin: 07/28/21 12:27 Dose: 200 mls/hr Methadone HCl (Methadone Hcl 20 Mg/2 Ml Oral.Conc) 30 mg PO DAILY [facility] Last Admin: 07/28/21 08:57 Dose: 30 mg Omeprazole (Omeprazole 40 Mg Capsule.Dr) 40 mg PO DAILY@0630 [facility] Last Admin: 07/28/21 05:59 Dose: 40 mg Ondansetron HCl (Ondansetron Hcl 4 Mg/2 Ml Vial) 4 mg IVPUSH Q8H PRN PRN Reason: Nausea and Vomiting Pharmacy Consult (Consult Rx Vancomycin Dosing) 1 each MISCELLANE DAILY PRN PRN Reason: Consult order Pharmacy Consult (Consult Rx Perform Med Rec) 1 each MISCELLANE ONCE PRN PRN Reason: Consult order Pharmacy Consult (Consult Rx Vancomycin Dosing) 1 each MISCELLANE DAILY PRN PRN Reason: Consult order Sodium Chloride (0.9 % Sodium Chloride Flush 3 Ml Syringe) 3 ml IVFLUSH QSHIFT [facility] Last Admin: 07/28/21 08:57 Dose: 3 ml Zinc Sulfate (Zinc Sulfate 220 Mg Capsule) 220 mg PO DAILY [facility] Last Admin: 07/28/21 08:57 Dose: 220 mg Home Medications Medication Instructions Recorded Confirmed Last Taken Type Lactobacillus acidoph-L.bulgaricus 1 tab intragastric BID 07/24/21 07/24/21 Unknown History 1 million cell tablet (Floranex) acetaminophen 325 mg tablet 650 mg PO Q6H PRN Pain 07/24/21 07/24/21 Unknown History albuterol sulfate 3 ml inhalation Q4H PRN Shortness 07/24/21 07/24/21 Unknown History Of Breath carvedilol 3.125 mg tablet 1 tab PO BID 07/24/21 07/24/21 Unknown History clonazepam 1 mg tablet 1 tab PO Q4H PRN anxiety 07/24/21 07/24/21 Unknown History cyclobenzaprine 10 mg tablet 1 tab PO TID PRN muscle spasm 07/24/21 07/24/21 Unknown History darbepoetin nadege in polysorbat 40 1 ml subcut FR 07/24/21 07/24/21 Unknown History mcg/mL in polysorbate injection (Aranesp) fludrocortisone 0.1 mg tablet 1 tab PO BID 07/24/21 07/24/21 Unknown History fluticasone furoate 100 1 puff PO DAILY 07/24/21 07/24/21 Unknown History mcg-vilanterol 25 mcg/dose inhalation powder (Breo Ellipta) furosemide 40 mg tablet 1 tab PO DAILY 07/24/21 07/24/21 Unknown History gabapentin 100 mg capsule 1 cap PO TID 07/24/21 07/24/21 Unknown History hydroxyzine HCl 50 mg tablet 1 tab PO BEDTIME 07/24/21 07/24/21 Unknown History methadone 10 mg tablet 3 tab PO QAM 07/24/21 Unknown History omeprazole 20 mg capsule,delayed 2 cap PO DAILY 07/24/21 07/24/21 Unknown History release zinc sulfate 220 mg capsule 220 mg PO DAILY 07/24/21 07/24/21 Unknown History Physical Exam Vital Signs: Vital Signs: Last Vital Signs Temp 98.3 F 07/28/21 11:46 Pulse 93 07/28/21 11:46 Resp 18 07/28/21 11:46 BP 152/95 H 07/28/21 11:46 Pulse Ox 98 07/28/21 11:46 O2 Del Method 07/28/21 11:46 O2 Flow Rate 2 07/28/21 11:46 Oxygen Flow Rate 2 07/23/21 20:59 BMI result Body Mass Index 30.9 Const: General: cooperative Resp: Effort & Inspection: normal respiratory effort Cardio: Rate: regular rate GI: Palpation (GI): Soft to palpation and nontender Extrem: Other: resolving rubor Results Labs CBC & Chem 7: 07/25/21 05:32 07/28/21 06:47 Labs: BMP 07/28/21 06:47 Creatinine 1.87 H Microbiology Microbiology Results: Microbiology 07/24/21 Unknown Urine clean catch - Clean Catch Midstream Urine Culture - Final Klebsiella pneumoniae 07/23/21 22:12 Blood - Venous Blood Culture - Preliminary No growth after 48 hours. 07/23/21 22:09 Blood - Venous Blood Culture - Preliminary No growth after 48 hours. Assessment and Plan (1) Sepsis: Status: Acute Believe source of infection is Klebsiella UTI,ESBL. She has allergy to Levaquin. I believe legs have chronic venous stasis changes/rubor. Cellulitis is very rarely bilateral and doesnt look like this (dependent color changes with rubor when legs below heart Legs also are not hot. (2) UTI (urinary tract infection): Status: Acute Plan Would continue Merem. Would give IV Ertapenem total 14 day antibiotics Do not check test of cure when done
--- NOTE | 2021-07-28 15:36 | MHC.CM.PN ---
Addendum entered by Shawnee Weaver 07/28/21 15:56: per request, referral to [facility] also placed Original Note: REFERRAL TO [facility] IS MIDLINE TODAY OR WEDNESDAY 1 G ERTAPENEM QD FOR 14 DAYS
--- NOTE | 2021-07-28 18:00 | HO.MIDLINE_ITS ---
PICC Line Insertion NPICC Diagnosis: [UTI] Indication: [[facility] needed] Pertinent Labs: [reviewed] Technique: Using sterile technique including cap and mask, glove and drape, the [right] arm was prepped and draped in the usual sterile fashion of full barrier technique with CHG. Using ultrasound guidance, [right basilic] vein access was obtained twice by Baudilio Martinez RN, but unable to pass guidewire. Right basilic vein access was obtained by Magan Dennis RN on first attempt. A single lumen, Non PASV (20G x 10CM) midline was positioned. The procedure was performed in [S272]. Ultrasound was used to document vein patency and for needle entry. A formal ultrasound picture was recorded. [facility] has released the line for use and it is currently dressed with a StatLock, Tegaderm, and CHG disc. Verification has been performed for blood return and line patency. Arm Circumference: [23 CM] Equipment: [[employer] PowerGlide ST midline] Catheter Type: [single lumen, non-PASV, (20G x 10CM)] Lot #: [[id number]]
[2021-07-28] MEDS: Heparin Sodium,Porcine Flush 50 UNITS, 0.9 % Sodium Chloride Flush 5 ML IVFLUSH (21:19)
[2021-07-28] MEDS: hydrOXYzine HCL 50 MG TABLET PO (21:20)
[2021-07-28] MEDS: Cyclobenzaprine HCl 10 MG TABLET PO (21:20)
[2021-07-28] MEDS: clonazePAM 1 MG TABLET PO (21:21)
[2021-07-29] VITALS (7 sets, daily range): BP systolic 141–160; BP diastolic 79–97; PULSE 86–106; RESP 16–18; TEMP 36.5–36.9; O2SAT 94–100
[2021-07-29] MEDS: Omeprazole 40 MG CAPSULE.DR PO (05:37)
[2021-07-29 08:02] LABS: Anion Gap 15 (12-20); Blood Urea Nitrogen 22 mg/dL (9-16); Calcium 9.2 mg/dL (8.4-10.2); Carbon Dioxide 28 mmol/L (22-29); Chloride 103 mmol/L (96-108); Creatinine Clr Calc Pharmacy 34.4; Estimated Glomerular Filt Rate 26; Glucose Random 86 mg/dL (60-115); Potassium 4.2 mmol/L (3.3-5.1); Sodium 142 mmol/L (135-145)
[2021-07-29] MEDS: Fluticasone/Vilanterol 100/25 BLST.W.DEV 1 PUFF INHALE (09:06)
[2021-07-29] MEDS: Furosemide 40 MG TABLET PO (09:35)
[2021-07-29] MEDS: Zinc Sulfate 220 MG CAPSULE PO (09:35)
[2021-07-29] MEDS: Fludrocortisone Acetate 0.1 MG TABLET PO ×2 (09:35→21:14)
[2021-07-29] MEDS: Gabapentin 100 MG CAPSULE PO ×3 (09:36→21:14)
[2021-07-29] MEDS: methADONE HCl 20 MG/2 ML ORAL.CONC 30 MG PO (09:36)
[2021-07-29] MEDS: Aspirin 81 MG TAB.CHEW PO (09:36)
[2021-07-29] MEDS: Heparin Sodium,Porcine Flush 50 UNITS, 0.9 % Sodium Chloride Flush 5 ML IVFLUSH ×3 (09:37→21:14)
[2021-07-29] MEDS: 0.9 % Sodium Chloride Flush 3 ML SYRINGE IVFLUSH ×2 (09:37→16:02)
--- NOTE | 2021-07-29 12:48 | MHC.CM.PN ---
[facility] UNABLE TO OFFER. [facility] REVIEWING. PATIENT AWARE AND AGREEABLE. CASE MANAGEMENT AWAITING RESPONSE
--- NOTE | 2021-07-29 13:55 | P.PNIM_ITS ---
Subjective Subjective Date of Service: 07/29/21 <Janet Bird NP - Last Filed: 07/29/21 14:00> 08/02/21 <Margarito Corbin MD - Last Filed: 08/02/21 14:48> Interval History: uti-esbl, cellulitis <Janet Bird NP - Last Filed: 07/29/21 14:00> Review of Systems denies any chest pain or sob somewhat discomfort in lower legs cellulitis area <Janet Bird NP - Last Filed: 07/29/21 14:00> Physical Exam Vital Signs: Vital Signs: Last Vital Signs Temp 98.4 F 07/29/21 11:51 Pulse 88 07/29/21 11:51 Resp 18 07/29/21 11:51 BP 153/91 H 07/29/21 11:51 Pulse Ox 96 07/29/21 11:51 O2 Del Method 07/29/21 11:51 O2 Flow Rate 2 07/29/21 11:51 Oxygen Flow Rate 2 07/23/21 20:59 BMI result Body Mass Index 30.9 <Janet Bird NP - Last Filed: 07/29/21 14:00> Appearing in no acute distress lung sounds are clear to auscultation heart regular rate rhythm, clear S1, S2 positive bowel sounds, abdomen is soft, nontender neuro patient is alert x3, no focal deficits <Janet Bird NP - Last Filed: 07/29/21 14:00> Objective Data Active Medications Acetaminophen (Acetaminophen 325 Mg Tablet) 650 mg PO Q6H PRN PRN Reason: Pain, Mild (Pain Scale 1-3) Last Admin: 07/27/21 16:05 Dose: 650 mg Documented By: JUDE Albuterol Sulfate (Albuterol Sulfate (0.083%) 2.5 Mg/3 Ml Vial.Neb) 2.5 mg INHALE Q4H PRN PRN Reason: wheezing Albuterol/Ipratropium (Albuterol/Iprat 2.5/0.5mg 3 Ml Ampul.Neb) 3 ml INHALE RQ4H PRN PRN Reason: Shortness of Breath/Wheezing Aspirin (Aspirin 81 Mg Tab.Chew) 81 mg PO DAILY [facility] Last Admin: 07/29/21 09:36 Dose: 81 mg Documented By: KWAME Clonazepam (Clonazepam 1 Mg Tablet) 1 mg PO Q4H PRN PRN Reason: anxiety Last Admin: 07/28/21 21:21 Dose: 1 mg Documented By: EBENEZER Heparin Sodium (Porcine) 50 (units/ Sodium Chloride 5 ml) 0 units IVFLUSH TID [facility] Last Admin: 07/29/21 09:37 Dose: 50 unit Documented By: KWAME Cyclobenzaprine HCl (Cyclobenzaprine Hcl 10 Mg Tablet) 10 mg PO TID PRN PRN Reason: muscle spasm Last Admin: 07/28/21 21:20 Dose: 10 mg Documented By: EBENEZER Docusate Sodium (Docusate Sodium 100 Mg Capsule) 100 mg PO DAILY PRN PRN Reason: Constipation Doxycycline Hyclate (Doxycycline Hyclate 100 Mg Tablet) 100 mg PO Q12H [facility] Last Admin: 07/29/21 09:35 Dose: 100 mg Documented By: KWAME Fludrocortisone Acetate (Fludrocortisone Acetate 0.1 Mg Tablet) 0.1 mg PO BID [facility] Last Admin: 07/29/21 09:35 Dose: 0.1 mg Documented By: KWAME Fluticasone/Vilanterol (Fluticasone/Vilanterol 100/25 Blst.W.Dev) 1 puff INHALE RDAILY [facility] Last Admin: 07/29/21 09:06 Dose: 1 puff Documented By: SAULO Furosemide (Furosemide 40 Mg Tablet) 40 mg PO DAILY [facility]; Protocol Last Admin: 07/29/21 09:35 Dose: 40 mg Documented By: KWAME Gabapentin (Gabapentin 100 Mg Capsule) 100 mg PO TID [facility] Last Admin: 07/29/21 09:36 Dose: 100 mg Documented By: KWAME Heparin Sodium (Porcine) (Heparin Sodium,Porcine 5,000 Unit/Ml Vial) 5,000 unit SUBCUT Q12H [facility] Last Admin: 07/28/21 12:27 Dose: 5,000 unit Documented By: BROWN Hydroxyzine HCl (Hydroxyzine Hcl 50 Mg Tablet) 50 mg PO BEDTIME [facility] Last Admin: 07/28/21 21:20 Dose: 50 mg Documented By: BEENEZER Meropenem 1 gm/ Sodium (Chloride) 100 mls @ 200 mls/hr IV Q12H [facility] Last Infusion: 07/29/21 10:40 Dose: 0 mls/hr Documented By: KWAME Methadone HCl (Methadone Hcl 20 Mg/2 Ml Oral.Conc) 30 mg PO DAILY [facility] Last Admin: 07/29/21 09:36 Dose: 30 mg Documented By: KWAME Omeprazole (Omeprazole 40 Mg Capsule.Dr) 40 mg PO DAILY@0630 [facility] Last Admin: 07/29/21 05:37 Dose: 40 mg Documented By: EBENEZER Ondansetron HCl (Ondansetron Hcl 4 Mg/2 Ml Vial) 4 mg IVPUSH Q8H PRN PRN Reason: Nausea and Vomiting Pharmacy Consult (Consult Rx Vancomycin Dosing) 1 each MISCELLANE DAILY PRN PRN Reason: Consult order Pharmacy Consult (Consult Rx Perform Med Rec) 1 each MISCELLANE ONCE PRN PRN Reason: Consult order Pharmacy Consult (Consult Rx Vancomycin Dosing) 1 each MISCELLANE DAILY PRN PRN Reason: Consult order Sodium Chloride (0.9 % Sodium Chloride Flush 3 Ml Syringe) 3 ml IVFLUSH QSHIFT [facility] Last Admin: 07/29/21 09:37 Dose: 3 ml Documented By: KWAME Zinc Sulfate (Zinc Sulfate 220 Mg Capsule) 220 mg PO DAILY [facility] Last Admin: 07/29/21 09:35 Dose: 220 mg Documented By: KWAME <Janet Bird NP - Last Filed: 07/29/21 14:00> Labs CBC & Chem 7: : 07/25/21 05:32 08/01/21 05:53 <Janet Bird NP - Last Filed: 07/29/21 14:00> Labs: Laboratory Results - last 24 hr 07/29/21 07/29/21 05:22 05:22 Anion Gap 15 Estim Creat Clear Calc 34.4 Cancelled Estimated GFR 26 Cancelled Random Glucose 86 Calcium 9.2 D <Janet Bird NP - Last Filed: 07/29/21 14:00> Microbiology Microbiology Results: Microbiology 07/23/21 22:12 Blood Culture - Final Blood - Venous No growth after 5 days. 07/23/21 22:09 Blood Culture - Final Blood - Venous No growth after 5 days. <Janet Bird NP - Last Filed: 07/29/21 14:00> Assessment and Plan (1) UTI (urinary tract infection): Status: Acute <Janet Bird NP - Last Filed: 07/29/21 14:00> (2) Bilateral cellulitis of lower leg: Status: Acute <Janet Bird NP - Last Filed: 07/29/21 14:00> Assessment and Plan: 61F presented with weakness, found to be septic due to UTI. Recent extended hospitalizaiton due to covid, s/p trachesotomy (removed), and PEG(removed) recently discharged from rehab once sepsis resolved, may need reevaluation for return to rehab Diarrhea likely from abx monitor for dehydration check stool studies including cdiff Severe sepsis suspect due to acute UTI. Resolved follow up cultures-urine culture : Klebsiella pneumonia-esbl, meropenem started blood culture negative at 48 hours ID eval-rec 2 weeks antibiotics -midline order placed. HTN. Stable coreg CKD IV stable, monitor Chronic hypoxic respiratory failure due to COPD stable on 2L [place], chronic cpap at night obesity. BMI 30.9 weight loss opiate dependence methadone HFpEF no exacerbation lasix Hx lung ca on palliative radiation therapy dvt prophylaxis - heparin Attending Dr. Corbin full code reason for continued hospitalization: iv abx,midline placement, pending safe disposition <Janet Bird NP - Last Filed: 07/29/21 14:00> Quality Stroke Does the patient have a stroke diagnosis?: No <Janet Bird NP - Last Filed: 07/29/21 14:00> VTE Prior VTE?: No <Janet Bird NP - Last Filed: 07/29/21 14:00> VTE Risk Level:: Medical - moderate - high <Janet Bird NP - Last Filed: 07/29/21 14:00> VTE Device Contraindication: Treatment Not Indicated <Janet Bird NP - Last Filed: 07/29/21 14:00> VTE Drug Contraindication: N/A - Med Ordered <Janet Bird NP - Last Filed: 07/29/21 14:00>
[2021-07-29] MEDS: clonazePAM 1 MG TABLET PO (21:14)
[2021-07-29] MEDS: hydrOXYzine HCL 50 MG TABLET PO (21:14)
[2021-07-29] MEDS: Cyclobenzaprine HCl 10 MG TABLET PO (21:14)
[2021-07-30] VITALS (8 sets, daily range): BP systolic 109–161; BP diastolic 68–93; PULSE 94–116; RESP 18–20; TEMP 36.2–36.9; O2SAT 94–97
[2021-07-30] MEDS: Omeprazole 40 MG CAPSULE.DR PO (05:56)
[2021-07-30 09:30] LABS: Creatinine Clr Calc Pharmacy 32.9; Estimated Glomerular Filt Rate 25
[2021-07-30] MEDS: methADONE HCl 20 MG/2 ML ORAL.CONC 30 MG PO (10:18)
[2021-07-30] MEDS: Heparin Sodium,Porcine Flush 50 UNITS, 0.9 % Sodium Chloride Flush 5 ML IVFLUSH ×3 (10:19→21:01)
[2021-07-30] MEDS: Furosemide 40 MG TABLET PO (10:20)
[2021-07-30] MEDS: Fludrocortisone Acetate 0.1 MG TABLET PO ×2 (10:20→21:01)
[2021-07-30] MEDS: Gabapentin 100 MG CAPSULE PO ×3 (10:20→21:01)
[2021-07-30] MEDS: Aspirin 81 MG TAB.CHEW PO (10:20)
[2021-07-30] MEDS: amLODIPine Besylate 5 MG TABLET PO (10:20)
[2021-07-30] MEDS: Zinc Sulfate 220 MG CAPSULE PO (10:20)
[2021-07-30] MEDS: 0.9 % Sodium Chloride Flush 3 ML SYRINGE IVFLUSH ×2 (10:21→17:05)
[2021-07-30] MEDS: carvediloL 3.125 MG TABLET PO ×2 (10:21→21:00)
--- NOTE | 2021-07-30 10:21 | HO.PM.IMPN ---
Subjective Subjective Date of Service: 07/30/21 <Janet Bird NP - Last Filed: 07/30/21 10:26> 08/02/21 <Margarito Corbin MD - Last Filed: 08/02/21 14:49> Interval History: uti-esbl, cellulitis <Janet Bird NP - Last Filed: 07/30/21 10:26> Review of Systems denies any chest pain or sob Feels better today <Janet Bird NP - Last Filed: 07/30/21 10:26> Physical Exam Vital Signs: Vital Signs: Last Vital Signs Temp 97.9 F 07/30/21 08:00 Pulse 109 H 07/30/21 09:27 Resp 18 07/30/21 08:00 BP 161/93 H 07/30/21 09:27 Pulse Ox 97 07/30/21 09:27 O2 Del Method 07/30/21 08:00 O2 Flow Rate 2 07/30/21 08:00 Oxygen Flow Rate 2 07/23/21 20:59 BMI result Body Mass Index 30.9 <Janet Bird NP - Last Filed: 07/30/21 10:26> Appearing in no acute distress lung sounds are clear to auscultation heart regular rate rhythm, clear S1, S2 positive bowel sounds, abdomen is soft, nontender neuro patient is alert x3, no focal deficits <Janet Bird NP - Last Filed: 07/30/21 10:26> Objective Data Active Medications Acetaminophen (Acetaminophen 325 Mg Tablet) 650 mg PO Q6H PRN PRN Reason: Pain, Mild (Pain Scale 1-3) Last Admin: 07/27/21 16:05 Dose: 650 mg Documented By: IZABELQC Albuterol Sulfate (Albuterol Sulfate (0.083%) 2.5 Mg/3 Ml Vial.Neb) 2.5 mg INHALE Q4H PRN PRN Reason: wheezing Albuterol/Ipratropium (Albuterol/Iprat 2.5/0.5mg 3 Ml Ampul.Neb) 3 ml INHALE RQ4H PRN PRN Reason: Shortness of Breath/Wheezing Amlodipine Besylate (Amlodipine Besylate 5 Mg Tablet) 5 mg PO DAILY [facility]; Protocol Aspirin (Aspirin 81 Mg Tab.Chew) 81 mg PO DAILY [facility] Last Admin: 07/29/21 09:36 Dose: 81 mg Documented By: KWAME Carvedilol (Carvedilol 3.125 Mg Tablet) 3.125 mg PO BID [facility]; Protocol Clonazepam (Clonazepam 1 Mg Tablet) 1 mg PO Q4H PRN PRN Reason: anxiety Last Admin: 07/29/21 21:14 Dose: 1 mg Documented By: EBENEZER Heparin Sodium (Porcine) 50 (units/ Sodium Chloride 5 ml) 0 units IVFLUSH TID [facility] Last Admin: 07/29/21 21:14 Dose: 50 unit Documented By: EBENEZER Cyclobenzaprine HCl (Cyclobenzaprine Hcl 10 Mg Tablet) 10 mg PO TID PRN PRN Reason: muscle spasm Last Admin: 07/29/21 21:14 Dose: 10 mg Documented By: EBENEZER Docusate Sodium (Docusate Sodium 100 Mg Capsule) 100 mg PO DAILY PRN PRN Reason: Constipation Doxycycline Hyclate (Doxycycline Hyclate 100 Mg Tablet) 100 mg PO Q12H [facility] Last Admin: 07/29/21 21:14 Dose: 100 mg Documented By: EBENEZER Fludrocortisone Acetate (Fludrocortisone Acetate 0.1 Mg Tablet) 0.1 mg PO BID [facility] Last Admin: 07/29/21 21:14 Dose: 0.1 mg Documented By: EBENEZER Fluticasone/Vilanterol (Fluticasone/Vilanterol 100/25 Blst.W.Dev) 1 puff INHALE RDAILY [facility] Last Admin: 07/30/21 07:46 Dose: Not Given Documented By: DENISE Non-Admin Reason: Patient Refused Furosemide (Furosemide 40 Mg Tablet) 40 mg PO DAILY [facility]; Protocol Last Admin: 07/29/21 09:35 Dose: 40 mg Documented By: KWAME Gabapentin (Gabapentin 100 Mg Capsule) 100 mg PO TID [facility] Last Admin: 07/29/21 21:14 Dose: 100 mg Documented By: EBENEZER Heparin Sodium (Porcine) (Heparin Sodium,Porcine 5,000 Unit/Ml Vial) 5,000 unit SUBCUT Q12H [facility] Last Admin: 07/28/21 12:27 Dose: 5,000 unit Documented By: BROWN Hydroxyzine HCl (Hydroxyzine Hcl 50 Mg Tablet) 50 mg PO BEDTIME [facility] Last Admin: 07/29/21 21:14 Dose: 50 mg Documented By: EBENEZER Meropenem 1 gm/ Sodium (Chloride) 100 mls @ 200 mls/hr IV Q12H [facility] Last Infusion: 07/29/21 23:47 Dose: 0 mls/hr Documented By: EBENEZER Methadone HCl (Methadone Hcl 20 Mg/2 Ml Oral.Conc) 30 mg PO DAILY [facility] Last Admin: 07/29/21 09:36 Dose: 30 mg Documented By: KWAME Omeprazole (Omeprazole 40 Mg Capsule.Dr) 40 mg PO DAILY@0630 [facility] Last Admin: 07/30/21 05:56 Dose: 40 mg Documented By: EBENEZER Ondansetron HCl (Ondansetron Hcl 4 Mg/2 Ml Vial) 4 mg IVPUSH Q8H PRN PRN Reason: Nausea and Vomiting Pharmacy Consult (Consult Rx Vancomycin Dosing) 1 each MISCELLANE DAILY PRN PRN Reason: Consult order Pharmacy Consult (Consult Rx Perform Med Rec) 1 each MISCELLANE ONCE PRN PRN Reason: Consult order Pharmacy Consult (Consult Rx Vancomycin Dosing) 1 each MISCELLANE DAILY PRN PRN Reason: Consult order Sodium Chloride (0.9 % Sodium Chloride Flush 3 Ml Syringe) 3 ml IVFLUSH QSHIFT [facility] Last Admin: 07/30/21 00:44 Dose: Not Given Documented By: EBENEZER Non-Admin Reason: NO PERIPERAL IV Zinc Sulfate (Zinc Sulfate 220 Mg Capsule) 220 mg PO DAILY [facility] Last Admin: 07/29/21 09:35 Dose: 220 mg Documented By: KWAME <Janet Bird NP - Last Filed: 07/30/21 10:26> Labs CBC & Chem 7: : 07/25/21 05:32 08/01/21 05:53 <Janet Bird NP - Last Filed: 07/30/21 10:26> Labs: Laboratory Results - last 24 hr 07/30/21 08:54 Estim Creat Clear Calc 32.9 Estimated GFR 25 <Janet Bird NP - Last Filed: 07/30/21 10:26> Assessment and Plan (1) UTI (urinary tract infection): Status: Acute <Janet Bird NP - Last Filed: 07/30/21 10:26> (2) Bilateral cellulitis of lower leg: Status: Acute <Janet Bird NP - Last Filed: 07/30/21 10:26> Assessment and Plan: 61F presented with weakness, found to be septic due to UTI. Recent extended hospitalization due to covid, s/p trachesotomy (removed), and PEG(removed) recently discharged from rehab once sepsis resolved, may need reevaluation for return to rehab Diarrhea. Resolved likely from abx monitor for dehydration check stool studies including cdiff Severe sepsis suspect due to acute UTI. Resolved follow up cultures-urine culture : Klebsiella pneumonia-esbl, meropenem started blood culture negative at 48 hours ID eval-rec 2 weeks antibiotics -midline order placed. HTN. elevated coreg norvasc added CKD IV stable, monitor Chronic hypoxic respiratory failure due to COPD stable on 2L [place], chronic cpap at night obesity. BMI 30.9 weight loss opiate dependence methadone HFpEF no exacerbation lasix Hx lung ca on palliative radiation therapy dvt prophylaxis - heparin Attending Dr. Corbin full code reason for continued hospitalization: iv abx,midline placement, pending safe disposition <Janet Bird NP - Last Filed: 07/30/21 10:26> Quality Stroke Does the patient have a stroke diagnosis?: No <Janet Bird NP - Last Filed: 07/30/21 10:26> VTE Prior VTE?: No <Janet Bird NP - Last Filed: 07/30/21 10:26> VTE Risk Level:: Medical - moderate - high <Janet Bird NP - Last Filed: 07/30/21 10:26> VTE Device Contraindication: Treatment Not Indicated <Janet Bird NP - Last Filed: 07/30/21 10:26> VTE Drug Contraindication: N/A - Med Ordered <Janet Bird NP - Last Filed: 07/30/21 10:26>
[2021-07-30 13:22] LABS: Leukocytes Stool Qualitative NEGATIVE (NEGATIVE)
[2021-07-30 13:53] LABS: CDiff Gene PCR NEGATIVE (Negative)
--- NOTE | 2021-07-30 13:54 | MHC.CM.PN ---
PATIENT RECEIVES HER METHADONE THROUGH [facility] AND DELIVERED BY [facility] PATIENT GAVE PERMISSION FOR [facility] TO CONTACT [facility] TO SET UP 'GUEST DOSING FOR A 14 TRANSFER TO [facility] THIS PROCESS COULD TAKE UNTIL WEDNESDAY PATIENT AWARE AND AGREEABLE TO PLAN.
--- NOTE | 2021-07-30 15:36 | PC.NURSE ---
Alert and oriented. Denies pain, VSS, afebrile, no acute resp. distress noted. Continue on ABT therapy, no adverse reactions noted. No diarrhea today, stool sample collected for C-diff, results pending. Will continue to monitor and treat per plan of care.
[2021-07-30] MEDS: hydrOXYzine HCL 50 MG TABLET PO (21:00)
[2021-07-30] MEDS: clonazePAM 1 MG TABLET PO (21:29)
[2021-07-31] VITALS (7 sets, daily range): BP systolic 106–124; BP diastolic 62–76; PULSE 89–97; RESP 16–18; TEMP 36.1–36.8; O2SAT 94–98
[2021-07-31] MEDS: Omeprazole 40 MG CAPSULE.DR PO (05:42)
[2021-07-31 08:48] LABS: Creatinine Clr Calc Pharmacy 28.6; Estimated Glomerular Filt Rate 21
[2021-07-31] MEDS: Fluticasone/Vilanterol 100/25 BLST.W.DEV 1 PUFF INHALE (08:49)
[2021-07-31] MEDS: Zinc Sulfate 220 MG CAPSULE PO (09:05)
[2021-07-31] MEDS: methADONE HCl 20 MG/2 ML ORAL.CONC 30 MG PO (09:05)
[2021-07-31] MEDS: Aspirin 81 MG TAB.CHEW PO (09:05)
[2021-07-31] MEDS: amLODIPine Besylate 5 MG TABLET PO (09:05)
[2021-07-31] MEDS: Fludrocortisone Acetate 0.1 MG TABLET PO ×2 (09:06→20:32)
[2021-07-31] MEDS: Furosemide 40 MG TABLET PO (09:06)
[2021-07-31] MEDS: carvediloL 3.125 MG TABLET PO ×2 (09:06→20:32)
[2021-07-31] MEDS: Gabapentin 100 MG CAPSULE PO ×3 (09:07→20:32)
[2021-07-31] MEDS: Heparin Sodium,Porcine Flush 50 UNITS, 0.9 % Sodium Chloride Flush 5 ML IVFLUSH ×3 (09:07→20:33)
[2021-07-31] MEDS: 0.9 % Sodium Chloride Flush 3 ML SYRINGE IVFLUSH (09:08)
--- NOTE | 2021-07-31 12:32 | MHC.CM.PN ---
PLAN IS DC TO [facility] TOMORROW ONCE CREATININE IS REMEDIED.
--- NOTE | 2021-07-31 12:56 | P.PNIM_ITS ---
Subjective Subjective Date of Service: 07/31/21 Interval History: Seen and examined this morning Follow-up for UTI no abdominal pain, nausea, vomiting fever Review of Systems Review of Systems: Yes all other systems are reviewed and are negative Constitutional Constitutional: Denies chills and Denies fever(s) Cardiovascular Cardiovascular: Denies chest pain, Denies palpitations and Denies dyspnea Respiratory Respiratory: Denies cough and Denies dyspnea Gastrointestinal Gastrointestinal: Denies abdominal pain, Denies diarrhea, Denies nausea and Denies vomiting Endocrine Endocrine: Denies palpitations Physical Exam Vital Signs: Vital Signs: Last Vital Signs Temp 97.7 F 07/31/21 11:38 Pulse 93 07/31/21 11:38 Resp 18 07/31/21 11:38 BP 106/62 07/31/21 11:38 Pulse Ox 97 07/31/21 11:38 O2 Del Method 07/31/21 11:38 O2 Flow Rate 2 07/31/21 11:38 Oxygen Flow Rate 2 07/23/21 20:59 BMI result Body Mass Index 30.9 Const: General: cooperative, comfortable, alert and awake Nutritional Appearance: overweight Resp: Effort & Inspection: normal respiratory effort and able to speak in complete sentences Cardio: Rate: regular rate Heart sounds: Murmur heart sound present GI: Palpation (GI): Soft to palpation and nontender Extrem: General: Yes no pedal edema Objective Data Active Medications Acetaminophen (Acetaminophen 325 Mg Tablet) 650 mg PO Q6H PRN PRN Reason: Pain, Mild (Pain Scale 1-3) Last Admin: 07/27/21 16:05 Dose: 650 mg Documented By: JUDE Aspirin (Aspirin 81 Mg Tab.Chew) 81 mg PO DAILY [facility] Last Admin: 07/31/21 09:05 Dose: 81 mg Documented By: MARIUSZ Carvedilol (Carvedilol 3.125 Mg Tablet) 3.125 mg PO BID [facility]; Protocol Last Admin: 07/31/21 09:06 Dose: 3.125 mg Documented By: MARIUSZ Clonazepam (Clonazepam 1 Mg Tablet) 1 mg PO Q4H PRN PRN Reason: anxiety Last Admin: 07/30/21 21:29 Dose: 1 mg Documented By: RICHARD Heparin Sodium (Porcine) 50 (units/ Sodium Chloride 5 ml) 0 units IVFLUSH TID [facility] Last Admin: 07/31/21 09:07 Dose: 50 unit Documented By: MARIUSZ Cyclobenzaprine HCl (Cyclobenzaprine Hcl 10 Mg Tablet) 10 mg PO TID PRN PRN Reason: muscle spasm Last Admin: 07/29/21 21:14 Dose: 10 mg Documented By: CASTILM Docusate Sodium (Docusate Sodium 100 Mg Capsule) 100 mg PO DAILY PRN PRN Reason: Constipation Doxycycline Hyclate (Doxycycline Hyclate 100 Mg Tablet) 100 mg PO Q12H [facility] Last Admin: 07/31/21 09:06 Dose: 100 mg Documented By: MARIUSZ Fludrocortisone Acetate (Fludrocortisone Acetate 0.1 Mg Tablet) 0.1 mg PO BID [facility] Last Admin: 07/31/21 09:06 Dose: 0.1 mg Documented By: MARIUSZ Fluticasone/Vilanterol (Fluticasone/Vilanterol 100/25 Blst.W.Dev) 1 puff INHALE RDAILY [facility] Last Admin: 07/31/21 08:49 Dose: 1 puff Documented By: SAULO Furosemide (Furosemide 40 Mg Tablet) 40 mg PO DAILY [facility]; Protocol Last Admin: 07/31/21 09:06 Dose: 40 mg Documented By: MARIUSZ Gabapentin (Gabapentin 100 Mg Capsule) 100 mg PO TID [facility] Last Admin: 07/31/21 09:07 Dose: 100 mg Documented By: MARIUSZ Heparin Sodium (Porcine) (Heparin Sodium,Porcine 5,000 Unit/Ml Vial) 5,000 unit SUBCUT Q12H [facility] Last Admin: 07/28/21 12:27 Dose: 5,000 unit Documented By: BROWN Hydroxyzine HCl (Hydroxyzine Hcl 50 Mg Tablet) 50 mg PO BEDTIME [facility] Last Admin: 07/30/21 21:00 Dose: 50 mg Documented By: RICHARD Meropenem 1 gm/ Sodium (Chloride) 100 mls @ 200 mls/hr IV Q12H [facility] Last Admin: 07/31/21 12:44 Dose: 200 mls/hr Documented By: MARIUSZ Sodium Chloride (Ns) 1,000 mls @ 100 mls/hr IVCONT .Q10H [facility] Stop: 07/31/21 16:59 Methadone HCl (Methadone Hcl 20 Mg/2 Ml Oral.Conc) 30 mg PO DAILY [facility] Last Admin: 07/31/21 09:05 Dose: 30 mg Documented By: MARIUSZ Omeprazole (Omeprazole 40 Mg Capsule.Dr) 40 mg PO DAILY@0630 [facility] Last Admin: 07/31/21 05:42 Dose: 40 mg Documented By: JUSTO Ondansetron HCl (Ondansetron Hcl 4 Mg/2 Ml Vial) 4 mg IVPUSH Q8H PRN PRN Reason: Nausea and Vomiting Pharmacy Consult (Consult Rx Perform Med Rec) 1 each MISCELLANE ONCE PRN PRN Reason: Consult order Sodium Chloride (0.9 % Sodium Chloride Flush 3 Ml Syringe) 3 ml IVFLUSH QSHIFT [facility] Last Admin: 07/31/21 09:08 Dose: 3 ml Documented By: MARIUSZ Zinc Sulfate (Zinc Sulfate 220 Mg Capsule) 220 mg PO DAILY [facility] Last Admin: 07/31/21 09:05 Dose: 220 mg Documented By: MARIUSZ Labs CBC & Chem 7: 07/25/21 05:32 07/31/21 07:37 Labs: Laboratory Results - last 24 hr 07/30/21 07/30/21 07/31/21 10:30 10:30 07:37 Estim Creat Clear Calc 28.6 Estimated GFR 21 Stool Leukocytes, Qual NEGATIVE C. difficile Tox B Gene NEGATIVE Assessment and Plan (1) Sepsis: Status: Acute (2) UTI (urinary tract infection): Status: Acute Plan 61F presented with weakness, found to be septic due to UTI. Recent extended hospitalization due to covid, s/p trachesotomy (removed), and PEG(removed) recently discharged from rehab once sepsis resolved, may need reevaluation for return to rehab JOAN on CKD 3 Gentle IV fluid Follow BMP Diarrhea. Resolved likely from abx monitor for dehydration Stool WBC negative Severe sepsis suspect due to acute UTI. Resolved urine culture : Klebsiella pneumonia-esbl, meropenem started 07/27- plan to DC with ertapenem with end date of August 10 blood culture negative at 48 hours ID eval-rec 2 weeks antibiotics -midline placed 07/28. HTN continue coreg Chronic hypoxic respiratory failure due to COPD stable on 2L [place], chronic cpap at night obesity. BMI 30.9 weight loss opiate dependence methadone HFpEF no exacerbation lasix Hx lung ca on palliative radiation therapy dvt prophylaxis - leonie Attending Dr. Middleton full code reason for continued hospitalization: iv abx, pending safe disposition Quality Stroke Does the patient have a stroke diagnosis?: No VTE Prior VTE?: No VTE Risk Level:: Medical - moderate - high VTE Device Contraindication: Treatment Not Indicated VTE Drug Contraindication: N/A - Med Ordered
[2021-07-31] MEDS: 0.9 % Sodium Chloride 500 ML 100 ML IVCONT (14:28)
[2021-07-31] MEDS: clonazePAM 1 MG TABLET PO (20:33)
[2021-07-31] MEDS: hydrOXYzine HCL 50 MG TABLET PO (20:33)
[2021-08-01 03:41] VITALS: BP 114/67; PULSE 93; RESP 18; TEMP 36.4; O2SAT 96
[2021-08-01] MEDS: Omeprazole 40 MG CAPSULE.DR PO (06:11)
[2021-08-01 07:24] LABS: Anion Gap 14 (12-20); Blood Urea Nitrogen 30 mg/dL (9-16); Calcium 8.3 mg/dL (8.4-10.2); Carbon Dioxide 27 mmol/L (22-29); Chloride 105 mmol/L (96-108); Creatinine Clr Calc Pharmacy 31.7; Estimated Glomerular Filt Rate 24; Glucose Random 73 mg/dL (60-115); Potassium 4.3 mmol/L (3.3-5.1); Sodium 142 mmol/L (135-145)
[2021-08-01 08:00] VITALS: BP 142/80; PULSE 87; RESP 15; TEMP 36.6
[2021-08-01] MEDS: Fluticasone/Vilanterol 100/25 BLST.W.DEV 1 PUFF INHALE (08:48)
[2021-08-01 08:49] VITALS: PULSE 93; RESP 18; O2SAT 96
--- NOTE | 2021-08-01 09:56 | PM.DS ---
DS: Providers Provider Date of Service: 08/01/21 Date of admission: 07/23/21 23:40 Date of discharge: 08/01/21 Primary care physician: Valerie Castano MD Consults: 07/25/21 09:50 Addiction Medicine Routine Consulting Provider: Abi Rendon Reason for consultation: opoid use -?methdone Has provider been notified: No 07/27/21 10:26 Consult to Infectious Diseases Routine Consulting Provider: Annmarie Grant Reason for consultation: esbl uti/lower ext cellulitis Has provider been notified: No Attending physician on discharge: Salomon Middleton Discharging clinician: Nona Gandhi DS: Diagnosis Discharge Diagnosis (1) Sepsis: Status: Acute (2) UTI (urinary tract infection): Status: Acute DS: Summary Hospital Course Hospital Course: From H&P on day of admission this is a 61-year-old female with past medical history of COPD, LEO, CKD, anemia of chronic kidney disease, hyperlipidemia, hypertension, who presents to the hospital stating not feeling well.? Patient is a terrible historian, is not forthcoming with much history, history is obtained mostly from ED physician, and EMR.? It appears was sent by her boyfriend because she was not acting right.? Unable to get much elaboration on what that meant.? Patient herself answers some questions with yes and no but otherwise review of system is incomplete.? She denies any headache,? no chest pain, reports no new shortness of breath no abdominal pain nausea or vomiting, no diarrhea or constipation.? No urinary symptoms.? Patient noted to have redness and swelling of her lower extremities when asked about it she says she does not know and has not noticed it.? On arrival to the ED patient hemodynamically stable with no significant abnormal vitals except a heart rate? 120 sinus rhythm, respiratory rate of 24, blood pressure stable. Labs are significant for WBC count of 14.2, hemoglobin of 11.4, which is higher than her baseline, creatinine of? 2.56 UA positive for leukocyte Estrace, nitrites and WBC ?chest x-ray shows slightly improved appearance since prior with clearing of patchy density in possible left pleural effusion Patient was admitted to the hospital for sepsis secondary to UTI possible lower extremity cellulitis. She was started on IV antibiotics. Urine culture grew ESBL positive Klebsiella and her antibiotics were changed to meropenem. Blood cultures have remained negative to date. She was initially started on IV vancomycin to cover for lower extremity cellulitis, she was seen by infectious diseases who felt this represented chronic venous stasis, she did complete a course of oral doxycycline during hospitalization. She had mild JOAN and was treated with gentle IV fluid, her renal function has improved close to baseline. She had a bout of diarrhea which was negative for stool wbc's and has resolved at this time. She has remained afebrile and is stable for discharge to care home facility. She is will complete 10 days of IV Ertapenem for ESBL positive Klebsiella per ID recommendation. She has been maintained on 2 L nasal cannula secondary to chronic respiratory failure related to COPD. She has been using CPAP at night for sleep apnea. No changes have been made to her baseline medications. She was seen by Physical therapy who recommended care home facility. Anticipate less than 30 day stay at SNF Time Spent with Patient Time attestation: Total time spent providing and/or coordinating discharge services: Discharge coordination time: Greater than 30 minutes Quality: Safe Use of Opioids Does Pt have an Active Cancer Diagnosis on the Problem List?: No Quality: Stroke Does the patient have a stroke diagnosis?: No Physical Exam Vital Signs: Vital Signs: Last Vital Signs Temp 97.8 F 08/01/21 08:00 Pulse 93 08/01/21 08:49 Resp 18 08/01/21 08:49 BP 142/80 H 08/01/21 08:00 Pulse Ox 96 08/01/21 03:41 O2 Del Method 08/01/21 08:00 O2 Flow Rate 2 08/01/21 03:41 Oxygen Flow Rate 2 07/23/21 20:59 BMI result Body Mass Index 30.9 Const: General: cooperative, comfortable, alert and awake Nutritional Appearance: overweight Resp: Effort & Inspection: normal respiratory effort and able to speak in complete sentences Cardio: Rate: regular rate Heart sounds: Murmur heart sound present GI: Palpation (GI): Soft to palpation and nontender Extrem: General: Yes no pedal edema DS: Data Data Completed and Pending Completed studies during hospitalization [Text1]: Procedures Bypass Trachea to Cutaneous with Tracheostomy Device, Percutaneous Approach (03/18/21) Insertion of Endotracheal Airway into Trachea, Via Natural or Artificial Opening (03/18/21) Insertion of Feeding Device into Stomach, Percutaneous Approach (03/18/21) Insertion of Infusion Device into Right Internal Jugular Vein, Percutaneous Approach (03/18/21) Insertion of Infusion Device into Superior Vena Cava, Percutaneous Approach (03/18/21) Insertion of Monitoring Device into Upper Artery, Percutaneous Approach (03/18/21) Inspection of Upper Intestinal Tract, Via Natural or Artificial Opening Endoscopic (03/18/21) Introduction of Baricitinib into Mouth and Pharynx, External Approach, [employer] 6 (03/18/21) Introduction of Vasopressor into Central Vein, Percutaneous Approach (03/18/21) Monitoring of Arterial Pressure, Peripheral, Percutaneous Approach (03/18/21) Monitoring of Arterial Pulse, Peripheral, Percutaneous Approach (03/18/21) Performance of Urinary Filtration, Intermittent, Less than 6 Hours Per Day (03/18/21) Respiratory Ventilation, 24-96 Consecutive Hours (03/18/21) Respiratory Ventilation, Greater than 96 Consecutive Hours (03/18/21) Transfusion of Nonautologous Red Blood Cells into Peripheral Vein, Percutaneous Approach (03/18/21) Labs on day of discharge: Laboratory Results - last 24 hr 08/01/21 05:53 Sodium 142 Potassium 4.3 Chloride 105 Carbon Dioxide 27 Anion Gap 14 BUN 30 H Creatinine 2.12 H Estim Creat Clear Calc 31.7 Estimated GFR 24 Random Glucose 73 Calcium 8.3 L D Discharge Plan Discharge Anticipated Discharge Date/Time: 08/01/21 14:20 Patient Disposition: [facility] Discharge Diagnosis: Sepsis secondary to UTI Referrals: [facility] [Outside] - 1 Week Valerie Castano MD [Primary Care Provider] - 1 Week Discharge Medications: New ertapenem 1 gram recon soln 1 g IV DAILY Qty: 10 0RF Continued aspirin 81 mg tablet,delayed release (DR/EC) 81 mg PO DAILY Qty: 30 0RF cyclobenzaprine 10 mg tablet 1 tab PO TID PRN (Reason: muscle spasm) furosemide 40 mg tablet 1 tab PO DAILY albuterol sulfate 2.5 mg /3 mL (0.083 %) solution for nebulization 3 ml inhalation Q4H PRN (Reason: Shortness Of Breath) methadone 10 mg tablet 3 tab PO QAM clonazepam 1 mg tablet 1 tab PO Q4H PRN (Reason: anxiety) hydroxyzine HCl 50 mg tablet 1 tab PO BEDTIME carvedilol 3.125 mg tablet 1 tab PO BID omeprazole 20 mg capsule,delayed release(DR/EC) 2 cap PO DAILY gabapentin 100 mg capsule 1 cap PO TID fludrocortisone 0.1 mg tablet 1 tab PO BID Aranesp (in polysorbate) 40 mcg/mL solution 1 ml subcut FR Lactobacillus acidoph-L.bulgar [Floranex] 1 million cell tablet 1 tab intragastric BID fluticasone furoate-vilanterol [Breo Ellipta] 100-25 mcg/dose blister with device 1 puff PO DAILY acetaminophen 325 mg Tablet 650 mg PO Q6H PRN (Reason: Pain) zinc sulfate 220 mg Capsule 220 mg PO DAILY ipratropium-albuterol 0.5 mg-3 mg(2.5 mg base)/3 mL Solution For Nebulization 3 ml inhalation RQ4H PRN (Reason: Wheezing) Qty: 180 0RF Discharge Orders: Discharge Order (Routine); Ordered 08/01/21 Ordered By: Nona Gandhi Activity on Discharge: As tolerated Stand Alone Forms: Patient Portal Discharge page Care Plan Goals: See below Health Concerns: Sepsis secondary to UTI JOAN on CKD 3 -resolved Diarrhea-resolved Cellulitis ruled out, chronic venous stasis Plan of Treatment: Complete IV Ertapenem 1 gram daily for 10 days, Call to schedule follow-up appointment with PCP Monitor BMP weekly, starting on Wednesday during course of antibiotics Assessment: See discharge summary Discharge Date/Time: 08/01/21 16:43
[2021-08-01 10:20] VITALS: PULSE 93
[2021-08-01] MEDS: carvediloL 3.125 MG TABLET PO (10:21)
[2021-08-01] MEDS: Gabapentin 100 MG CAPSULE PO ×2 (10:21→14:34)
[2021-08-01] MEDS: Furosemide 40 MG TABLET PO (10:21)
[2021-08-01] MEDS: Aspirin 81 MG TAB.CHEW PO (10:21)
[2021-08-01] MEDS: Zinc Sulfate 220 MG CAPSULE PO (10:21)
[2021-08-01] MEDS: Fludrocortisone Acetate 0.1 MG TABLET PO (10:21)
[2021-08-01] MEDS: Heparin Sodium,Porcine Flush 50 UNITS, 0.9 % Sodium Chloride Flush 5 ML IVFLUSH (10:22)
[2021-08-01] MEDS: methADONE HCl 20 MG/2 ML ORAL.CONC 30 MG PO (10:22)
[2021-08-01] MEDS: 0.9 % Sodium Chloride Flush 3 ML SYRINGE IVFLUSH (10:23)
--- NOTE | 2021-08-01 11:25 | MHC.CM.PN ---
Addendum entered by Deirdre Brown 08/01/21 16:21: LAST DOSE LETTER AND DC SUMMARY SENT TO [facility] PT TRANSPORTED VIA BLS Original Note: PT WILL DC TO [facility] AT 1300 HOURS TODAY PENDING NEGATIVE COVID RESULTS. PT WILL NEED A LAST DOSE LETTER AND LESS THAN 30 DAY ORDER BLS TRANSPORT [facility] HAS BEEN ARRANGED
[2021-08-01 12:00] VITALS: BP 113/70; PULSE 96; RESP 20; TEMP 36.2; O2SAT 98
[2021-08-01 12:55] LABS: COVID-19 Test Negative (Negative); IDNOW Serial# 9DD0AD1C
[2021-08-01] MEDS: clonazePAM 1 MG TABLET PO (14:34)
--- NOTE | 2021-08-01 15:31 | HO.MIDLINE ---
PICC Line Insertion MIDLINE REMOVAL AND MIDLINE INSERTION Diagnosis: UTI Indication: FRUIT STUFFER IV ANTIBIOTICS Pertinent Labs: REVIEWED Technique: Using sterile technique including cap and mask, glove and drape, the RIGHT arm was prepped and draped in the usual sterile fashion of full barrier technique with CHG. NON-FUNCTIONAL SINGLE LUMEN, (20G X 10CM) MIDLINE WAS REMOVED; NOTED TO BE FULLY INTACT UPON REMOVAL. BASILIC vein access was obtained. Over an 0.018 wire, a SINGLE LUMEN, NON-PASV, (20G X 10CM) MIDLINE was positioned. The procedure was performed in S-272. Vascular Drier Tender Naphthalene has released the line for use and it is currently dressed with a StatLock, Tegaderm, and CHG disc. Verification has been performed for blood return and line patency. Equipment: [employer] POWERGLIDE ST Catheter Type: SINGLE LUMEN, NON-PASV, (20G X 10CM) Lot #: [id number]
== END 2021-08-01 16:43 | disposition skilled nursing facility (03) | DRG 872 ==
LOC: HO.ED 21:18 → HO.EDOVER 23:44 → HO.S3 07-24 16:44
PROVIDERS: Internal Medicine; Nurse Practitioner Acute Care; Admitting Provider Internal Medicine; Emergency Provider Internal Medicine; PCP Internal Medicine; Responsible Provider Physician Assistant Medical; Visit Provider Hospitalist
DX: A41.9 Sepsis, unspecified organism (principal); N39.0 Urinary tract infection, site not specified; C34.90 Malignant neoplasm of unspecified part of unspecified bronchus or lung; I13.0 Hypertensive heart and chronic kidney disease with heart failure and stage 1 through stage 4 chronic kidney disease, or unspecified chronic kidney disease; N18.4 Chronic kidney disease, stage 4 (severe); I50.32 Chronic diastolic (congestive) heart failure; F11.20 Opioid dependence, uncomplicated; L03.116 Cellulitis of left lower limb; L03.115 Cellulitis of right lower limb; J96.11 Chronic respiratory failure with hypoxia; Z16.12 Extended spectrum beta lactamase (ESBL) resistance; K52.1 Toxic gastroenteritis and colitis; G47.33 Obstructive sleep apnea (adult) (pediatric); E66.9 Obesity, unspecified; Z68.30 Body mass index [BMI] 30.0-30.9, adult; Z20.822 Contact with and (suspected) exposure to COVID-19; R65.20 Severe sepsis without septic shock; I87.8 Other specified disorders of veins; Z86.16 Personal history of COVID-19; Z99.81 Dependence on supplemental oxygen; Z86.74 Personal history of sudden cardiac arrest; Z86.010 Personal history of colon polyps; Z98.51 Tubal ligation status; Z79.51 Long term (current) use of inhaled steroids; Z79.82 Long term (current) use of aspirin; Z79.899 Other long term (current) drug therapy; B96.1 Klebsiella pneumoniae [K. pneumoniae] as the cause of diseases classified elsewhere; T36.95XA Adverse effect of unspecified systemic antibiotic, initial encounter
CPT/HCPCS: 36410; 36415; 71045; 80048; 80053; 80202; 81001; 82565; 83605; 84443; 85025; 85027; 87040; 87086; 87088; 87186; 87493; 87635; 89055; 93005; 94640; 96361; 96365; 96375; 97116; 97162; 97530; 99285; C1751; J0690; J0696; J1642; J2185; J3370

== ENCOUNTER 2021-09-06 11:15 | Outpatient (REF) | payer MEDICARE, MEDICAID, SELFPAY | END 2021-09-06 11:16 | disposition home or self-care (01) | LOC: HO.LNP 11:15 | PROVIDERS: Visit Provider Physician Assistant Medical | DX: N39.0 Urinary tract infection, site not specified (principal) | CPT/HCPCS: 81003; 87086 ==

== ENCOUNTER → 2021-10-02 13:36 | Outpatient (BNVA) | payer MEDICARE, MEDICAID, SELFPAY | PROVIDERS: PCP Internal Medicine; Visit Provider Internal Medicine | DX: J44.9 Chronic obstructive pulmonary disease, unspecified (principal); J98.4 Other disorders of lung; J96.90 Respiratory failure, unspecified, unspecified whether with hypoxia or hypercapnia; G47.33 Obstructive sleep apnea (adult) (pediatric); C34.90 Malignant neoplasm of unspecified part of unspecified bronchus or lung; Z86.16 Personal history of COVID-19; Z79.899 Other long term (current) drug therapy | CPT/HCPCS: 99212 ==

== ENCOUNTER 2021-10-21 09:07 | Outpatient (REF) | payer MEDICARE, MEDICAID, SELFPAY ==
[2021-10-21 11:31] LABS: MANUAL DIFF FLAG NO
[2021-10-21 11:50] LABS: Basophils Absolute Auto 0.1 X10*3/uL (0.0-0.2); Basophils Percent Auto 0.6 % (0-2); Eosinophils Absolute Auto 0.2 X10*3/uL (0.0-0.4); Eosinophils Percent Auto 1.8 % (0-4); Hematocrit 35.1 % (37.0-47.0); Hemoglobin 10.4 g/dl (12.0-16.0); Imm Gran Abs Auto 0.05 X10*3/uL (0.00-0.03); Imm Gran Pct Auto 0.6 % (0.0-0.4); Lymphocytes Absolute Auto 2.2 X10*3/uL (1.2-4.9); Lymphocytes Percent Auto 24.8 % (20-40); Mean Corpuscular HGB Conc 29.6 g/dl (31.0-35.0); Mean Corpuscular Hemoglobin 25.8 pg (27.0-33.0); Mean Corpuscular Volume 87.1 fL (80.0-98.0); Mean Platelet Volume 9.1 fL (9.4-12.3); Monocytes Absolute Auto 1.2 X10*3/uL (0.1-1.2); Monocytes Percent Auto 13.2 % (2-11); Neutrophils Absolute Auto 5.3 x10*3/uL (2.0-8.3); Platelet Count 309 X10*3/uL (160-400); Red Blood Count 4.03 X10*6/uL (4.20-5.50); Red Cell Distribution Width 14.7 % (11.0-16.0)
[2021-10-21 12:06] LABS: Anion Gap 16 (12-20); Blood Urea Nitrogen 53 mg/dL (9-16); Calcium 9.5 mg/dL (8.4-10.2); Carbon Dioxide 33 mmol/L (22-29); Chloride 95 mmol/L (96-108); Estimated Glomerular Filt Rate 19; Glucose Random 78 mg/dL (60-115); Iron 78 mcg/dL (30-160); Percent Iron Saturation 28 % (15-50); Potassium 4.4 mmol/L (3.3-5.1); Sodium 140 mmol/L (135-145); Total Iron Binding Capacity 281 mcg/dL (228-428); Unsaturated Iron Binding 203 ug/dL
[2021-10-23 14:03] LABS: Calcium (PTHI) 9.7 mg/dL (8.6-10.4); PTHI 834 pg/mL (16-77)
== END 2021-10-21 09:08 | disposition home or self-care (01) ==
LOC: HO.HMGCLDS 09:07
PROVIDERS: PCP Internal Medicine; Visit Provider Internal Medicine Hypertension Specialist
DX: N18.4 Chronic kidney disease, stage 4 (severe) (principal); D63.1 Anemia in chronic kidney disease
CPT/HCPCS: 36415; 80048; 83540; 83970; 85025

== ENCOUNTER 2021-12-17 10:13 | Outpatient (REF) | payer MEDICARE, MEDICAID, SELFPAY ==
[2021-12-17 11:22] LABS: MANUAL DIFF FLAG NO
[2021-12-17 11:30] LABS: Basophils Percent Auto 0.5 % (0-2); Eosinophils Absolute Auto 0.4 X10*3/uL (0.0-0.4); Eosinophils Percent Auto 4.7 % (0-4); Hematocrit 33.6 % (37.0-47.0); Hemoglobin 10.2 g/dl (12.0-16.0); Imm Gran Abs Auto 0.03 X10*3/uL (0.00-0.03); Imm Gran Pct Auto 0.4 % (0.0-0.4); Lymphocytes Absolute Auto 1.9 X10*3/uL (1.2-4.9); Lymphocytes Percent Auto 22.4 % (20-40); Mean Corpuscular HGB Conc 30.4 g/dl (31.0-35.0); Mean Corpuscular Hemoglobin 28.2 pg (27.0-33.0); Mean Corpuscular Volume 92.8 fL (80.0-98.0); Monocytes Absolute Auto 1.1 X10*3/uL (0.1-1.2); Monocytes Percent Auto 12.9 % (2-11); Neutrophils Percent Auto 59.1 % (45-73); Platelet Count 359 X10*3/uL (160-400); Red Blood Count 3.62 X10*6/uL (4.20-5.50); Red Cell Distribution Width 13.2 % (11.0-16.0); White Blood Count 8.4 X10*3/uL (4.8-10.8)
[2021-12-17 12:27] LABS: Anion Gap 18 (12-20); Blood Urea Nitrogen 45 mg/dL (9-16); Calcium 9.7 mg/dL (8.4-10.2); Carbon Dioxide 31 mmol/L (22-29); Chloride 98 mmol/L (96-108); Estimated Glomerular Filt Rate 18; Glucose Random 74 mg/dL (60-115); Potassium 4.7 mmol/L (3.3-5.1); Sodium 142 mmol/L (135-145)
== END 2021-12-17 10:14 | disposition home or self-care (01) ==
LOC: HO.HMGCLDS 10:13
PROVIDERS: PCP Internal Medicine; Visit Provider Internal Medicine Hypertension Specialist
DX: N18.4 Chronic kidney disease, stage 4 (severe) (principal)
CPT/HCPCS: 36415; 80048; 85025

== ENCOUNTER → 2022-01-06 14:14 | Outpatient (BNVA) | payer MEDICARE, MEDICAID, SELFPAY | PROVIDERS: PCP Internal Medicine; Visit Provider Internal Medicine | DX: J44.9 Chronic obstructive pulmonary disease, unspecified (principal); E66.9 Obesity, unspecified; C34.90 Malignant neoplasm of unspecified part of unspecified bronchus or lung; J98.4 Other disorders of lung; G47.33 Obstructive sleep apnea (adult) (pediatric); B02.9 Zoster without complications | CPT/HCPCS: 99212 ==

== ENCOUNTER 2022-01-19 13:31 | Outpatient (REF) | payer MEDICARE, MEDICAID, SELFPAY ==
[2022-01-19 16:23] LABS: MANUAL DIFF FLAG NO
[2022-01-19 16:26] LABS: Basophils Percent Auto 0.4 % (0-2); Hematocrit 31.5 % (37.0-47.0); Hemoglobin 9.4 g/dl (12.0-16.0); Imm Gran Abs Auto 0.07 X10*3/uL (0.00-0.03); Imm Gran Pct Auto 0.9 % (0.0-0.4); Lymphocytes Absolute Auto 1.7 X10*3/uL (1.2-4.9); Lymphocytes Percent Auto 20.8 % (20-40); Mean Corpuscular HGB Conc 29.8 g/dl (31.0-35.0); Mean Corpuscular Volume 93.8 fL (80.0-98.0); Mean Platelet Volume 8.7 fL (9.4-12.3); Monocytes Absolute Auto 1.1 X10*3/uL (0.1-1.2); Monocytes Percent Auto 13.6 % (2-11); Neutrophils Absolute Auto 5.2 x10*3/uL (2.0-8.3); Neutrophils Percent Auto 64.3 % (45-73); Platelet Count 367 X10*3/uL (160-400); Red Blood Count 3.36 X10*6/uL (4.20-5.50); White Blood Count 8.1 X10*3/uL (4.8-10.8)
[2022-01-19 16:34] LABS: Anion Gap 14 (12-20); Blood Urea Nitrogen 38 mg/dL (9-16); Calcium 10.1 mg/dL (8.4-10.2); Carbon Dioxide 31 mmol/L (22-29); Chloride 103 mmol/L (96-108); Estimated Glomerular Filt Rate 18; Sodium 143 mmol/L (135-145)
[2022-01-21 11:48] LABS: PTHI 370 pg/mL (16-77)
== END 2022-01-19 13:32 | disposition home or self-care (01) ==
LOC: HO.HMGCLDS 13:31
PROVIDERS: PCP Internal Medicine; Visit Provider Internal Medicine Hypertension Specialist
DX: N18.4 Chronic kidney disease, stage 4 (severe) (principal)
CPT/HCPCS: 36415; 80051; 82310; 82565; 83970; 84520; 85025

== ENCOUNTER 2022-03-24 12:31 | Outpatient (AMB) | payer MEDICARE, MEDICAID, SELFPAY ==
[2022-03-24 12:43] VITALS: BP 152/80; PULSE 100; O2SAT 95; BMI 40.8
--- NOTE | 2022-03-24 12:43 | A.OFFPC_ITS ---
Vital Signs 03/24/22 12:43 Height 5 ft 1 in Weight 216 lb 2 oz BMI 40.8 BP 152/80 H Blood Pressure Location Lt brachial Position Sitting Pulse 100 Pulse Source Pulse Oximeter Pulse Oximetry (%) 95 Oxygen Delivery Method Nasal Cannula Intake Visit Reasons: hernia Intake Note: pt is here because she wants pcp to look at her hernia to make sure it is not dangerous and wants a letter to get her out of jury duty Allergies ciprofloxacin [From Cipro] Allergy (Severe, Verified 10/20/22 09:25) HIVES/SWELLING, THROAT CLOSES shellfish derived [SHELLFISH DERIVED] Allergy (Intermediate, Verified 10/20/22 09:25) Vomiting NSAIDS (Non-Steroidal Anti-Inflamma Adverse Reaction (Severe, Verified 10/20/22 09:25) Avoid due to kidney disease Medication List - Last Reconciled 03/24/22 by Valerie Castano MD acetaminophen 650 mg PO Q6H PRN albuterol sulfate 3 mL inhalation Q4H PRN aspirin 81 mg PO DAILY calcitriol 0.25 mcg PO DAILY carvedilol 3.125 mg PO BID clonazepam 1 mg PO Q4H PRN diltiazem HCl 120 mg PO DAILY fluticasone furoate-vilanterol 100-25 mcg/dose (Breo Ellipta) 1 puff PO DAILY fluvoxamine 50 mg PO BEDTIME furosemide 1 tab PO DAILY gabapentin 100 mg PO BID hydroxyzine HCl 50 mg PO BEDTIME PRN methadone 30 mg PO DAILY torsemide 40 mg PO BID Tobacco use date assessed: 03/24/22 HPI hernia HPI Details 62-year-old lady with chronic kidney dis ease stage, with COPD, obstruc tive sleep apnea, obesity here today complaining of a protruding mass in her lower abdomen which has been present now for at least a urine increasing size. Denies any alteration in bowel movements, but is concerned about the increased size of the mass. She does complain of occasional pain over site. She also is overdue for her repeat colonoscopy. Last done by Dr. Queen in 2020, with removal of hyperplastic and tubular adenomatous polyp, due for repeat check again in 2 years. Patient denies any alteration in bowel habits, no melena, no bright blood in stool PFSH Medical History (Updated 11/08/22 @ 18:21 by Valerie Castano MD) Acute exacerbation of chronic obstructive pulmonary disease Tremor of both hands Ambulates with cane Seasonal allergies Herpes zoster Post covid-19 condition, unspecified COPD (chronic obstructive pulmonary disease) Osteopenia (~2017) Obesity Respiratory failure COVID-19 (~03/2021) Osteoarthritis of ankles, bilateral Olecranon bursitis of left elbow Tubulovillous adenoma of large intestine (~2020) Hx of cardiac arrest (~2015) O2 dependent Methadone maintenance therapy patient History of claustrophobia History of seizure Anxiety and depression HTN (hypertension) Multiple fractures of ribs Anemia in chronic kidney disease Vitamin D deficiency Family history of colon cancer CKD (chronic kidney disease) stage 4, GFR 15-29 ml/min Dyslipidemia Restrictive lung disease Lung cancer (~2019) LEO (obstructive sleep apnea) Surgical History (Updated 11/08/22 @ 18:27 by Valerie Castano MD) Hx of tracheostomy History of esophagogastroduodenoscopy (EGD) (~2021) History of removal of ureteral stent (~2013) History of lung biopsy (~2019) History of colonoscopy (~2020) Umbilical hernia History of laparoscopy (~2012) History of hand surgery History of tubal ligation Family History Father Diabetes mellitus Mother Depression Mental health disorder Maternal Grandfather Colon cancer Sister No problems noted. Son No problems noted. Daughter No problems noted. Daughter No problems noted. Social History Household Members: Significant Other Housing: Other Housing Other:: mobile home Are you a primary early breastfeeding care specialist to a significant other at home: No Do you presently have visiting nurse or other home services: Yes ([facility] daily) Unable to assess alcohol history related to: Unable to respond Alcohol intake: never Patient Tobacco Use Status: Former Tobacco user Quit Date: 2006 Tobacco use type: Cigarette Years Smoked: 25 yrs e-Cigarette/Vaping Use: Never Used Substance Use Type: Former Substance User and Heroin Advance Directives Date on File: 03/21/21 service: No Current occupational status: unemployed and disabled Cognitive needs: No Hearing needs: No Vision needs: No Questionnaire PHQ-9 Over the last 2 weeks, how often have you been bothered by any of the following problems? 1. Little interest or pleasure in doing things: several days 2. Feeling down, depressed, or hopeless: several days 3. Trouble falling or staying asleep, or sleeping too much: several days 4. Feeling tired or having little energy: not at all 5. Poor appetite or overeating: not at all 6. Feeling bad about yourself - or that you are a failure or have let yourself or your family down: not at all 7. Trouble concentrating on things, such as reading the newspaper or watching television: not at all 8. Moving or speaking so slowly that other people could have noticed. Or the opposite - being so fidgety or restless that you have been moving around a lot more than usual: not at all 9. Thoughts that you would be better off or of hurting yourself in some way: not at all Total score: 3 Depression Screening Interpretation: Positive (sees psychiatrist) Depression Screening Follow-up: Existing condition, In treatment and Community Mental Health Worker F/U 75993 - PHQ-9 Billing: Yes Source: Developed by Drs. Marco Ramirez, Elisa Kennedy, Warren Galvan and colleagues, with an educational cheo from [employer]. Thrive Questionnaire Declines Thrive assessment: No Date Thrive assessed: 03/24/22 I am a: Patient What is your living situation today?: I have a steady place to live Within the past 12 months, did the food you bought not last and you didn't have the money to get more?: Never true Within the past 12 months, did you worry whether your food would run out before you got money to buy more?: Never true Do you have trouble paying for medicines?: No Do you have trouble getting transportation to medical appointments?: No Do you have trouble paying your heating and electricity bill?: No Do you have trouble taking care of your child, family member or friend?: No Do you have trouble with day-to-day activities such as bathing, preparing meals, shopping, managing finances, etc.?: No Are you currently unemployed and looking for a job?: No Are you interested in more education?: No AUDIT C Alcohol Use Questionnaire (AUDIT-C) 1. How often do you have a drink containing alcohol?: Never Total Score: 0 TONIE-7 AMB Questionnaire TONIE-7 Date TONIE - 7 assessed: 03/24/22 Feeling nervous, anxious, or on edge: 2 = More than half the days Not being able to stop or control worryin = Nearly every day Worrying too much about different things: 3 = Nearly every day Trouble relaxin = More than half the days Being so restless that it is hard to sit still: 1 = Several days Becoming easily annoyed or irritable: 3 = Nearly every day Feeling afraid as if something awful might happen: 1 = Several days Total TONIE-7 score (0-4 normal; 5-9 mild; 10-14 moderate; 15-21 severe): 15 Source: Developed by Drs. Marco Ramirez, Elisa Kennedy, Warren Galvan and colleagues, with an educational cheo from [employer]. TONIE-7 Assessment Billing TONIE-7 Assessment Tool: TONIE-7 Assessment 47425 Review of Systems Const Denies fever(s), Denies poor appetite and Denies weight loss Eyes Details: glasses Reports requires corrective lenses ENT Reports no additional complaints Card Denies chest pain, Denies chest pain with activity, Denies palpitations and Reports dyspnea on exertion Resp Denies cough and Reports dyspnea on exertion GI Denies melena, Denies bloating, Denies hematochezia, Denies change in bowel habits, Denies excessive flatus, Denies early satiety, Denies heartburn, Denies nausea, Denies vomiting and Denies hematemesis Reports no additional complaints Musc Reports muscle weakness and Reports stiffness Endo Denies palpitations Cristo/Lymph Denies easy bleeding and Denies easy bruising Physical exam (Primary Care) Vital Signs: Last Vital Signs Pulse 100 03/24/22 12:43 BP 152/80 H 03/24/22 12:43 Pulse Ox 95 03/24/22 12:43 Oxygen Delivery Method Nasal Cannula 03/24/22 12:43 BMI result Body Mass Index 40.8 Tobacco/Smoking Status: Tobacco use Status Tobacco use date assessed 03/24/22 03/24/22 12:50 Patient Tobacco Use Status Former Tobacco user 03/24/22 12:50 Tobacco use type Cigarette 03/24/22 12:50 PHQ-9: PHQ-9 Score PHQ-9: Total score 3 03/24/22 13:44 Depression Screening Interpretation: Positive (sees psychiatrist) Depression Screening Follow-up: Existing condition, In treatment and Community Mental Health Worker F/U Thrive Assessment: Date of Thrive Assessment Date Thrive assessed 03/24/22 03/24/22 13:13 Const Other: Alert oriented x3, no acute distress, stooped posture, uses cane Orientation/consciousness: patient oriented x3 Neck Neck: Yes no lymphadenopathy and Yes supple Resp Auscultation: clear to auscultation bilaterally Cardio Other: S1-S2 present regular rate and rhythm GI Other: Obese abdomen, with normal bowel sounds, protruding mass umbilical area, slightly tender to palpation bowel sounds present, Skin Other: Dry erythematous patch on anterior aspect of lower extremity R>L, areas tender to palpation and warm to touch Neuro General: patient oriented x3, moves all extremities, Normal light touch and pain sensation, no focal motor deficits and CN's II-XI intact bilaterally Gait exam (Neuro): Assisted gait required (Cane) Extrem Other: Pedal edema right more than the left, no calf tenderness Assessment and Plan Assessment & Plan (1) Umbilical hernia: Comment: Incarcerated umbilical hernia Code(s): K42.9 - Umbilical hernia without obstruction or gangrene Qualifiers: Obstruction and gangrene presence: without obstruction or gangrene Qualified Code(s): K42.9 - Umbilical hernia without obstruction or gangrene (2) Tubulovillous adenoma of large intestine: Onset Date: ~2020 Comment: (TA 2014 & TVA on 10/2020 scope - repeat 1-2 years) Code(s): D12.6 - Benign neoplasm of colon, unspecified Plan: Patient 2 for her repeat colonoscopy due to removal of a tubulovillous adenoma on last colonoscopy in 2020. denies any blood in stool, no melena Orders: Referrals General Surgery Referral K42.9 - Umbilical hernia without obstruction or gangrene Gastroenterology Referral D12.6 - Benign neoplasm of colon, unspecified Medications: Changed From diltiazem HCl 120 mg PO DAILY To diltiazem HCl temporary Rx sent for patient for 30 days , Please send future refill request to Dr Fermin Muhammad , her bulk pigment reducer, who has been prescribing this ,medicine 120 mg PO DAILY 30 caps 0RF Coding Level of Care Code Est Pt Level 3 (23911) Diagnoses Umbilical hernia without obstruction and without gangrene K42.9 Obstruction and gangrene presence: without obstruction or gangrene Tubulovillous adenoma of large intestine D12.6 Additional Codes TONIE-7 Assessment Billing - TONIE-7 Assessment Tool: TONIE-7 Assessment 21626 ([id number])
== END 2022-03-24 13:48 | disposition home or self-care (01) ==
LOC: HO.HMGC 12:31
PROVIDERS: PCP Internal Medicine; Visit Provider Internal Medicine
DX: K42.9 Umbilical hernia without obstruction or gangrene (principal); D12.6 Benign neoplasm of colon, unspecified
CPT/HCPCS: 99213

== ENCOUNTER → 2022-04-07 13:49 | Outpatient (BNVA) | payer MEDICARE, MEDICAID, SELFPAY | PROVIDERS: PCP Internal Medicine; Visit Provider Internal Medicine | DX: J44.9 Chronic obstructive pulmonary disease, unspecified (principal); J98.4 Other disorders of lung; G47.33 Obstructive sleep apnea (adult) (pediatric); E66.9 Obesity, unspecified; C34.90 Malignant neoplasm of unspecified part of unspecified bronchus or lung | CPT/HCPCS: Q3014 ==

== ENCOUNTER → 2022-04-17 11:26 | Outpatient (BNVA) | payer MEDICARE, MEDICAID, SELFPAY | PROVIDERS: PCP Internal Medicine; Visit Provider Surgery | DX: K42.9 Umbilical hernia without obstruction or gangrene (principal) | CPT/HCPCS: 99202 ==

== ENCOUNTER 2022-05-01 12:54 | Outpatient (REF) | payer MEDICARE, MEDICAID, SELFPAY ==
[2022-05-01 14:06] LABS: Hematocrit 37.4 % (37.0-47.0); Mean Corpuscular HGB Conc 29.4 g/dl (31.0-35.0); Mean Corpuscular Hemoglobin 28.1 pg (27.0-33.0); Mean Corpuscular Volume 95.4 fL (80.0-98.0); Mean Platelet Volume 9.3 fL (9.4-12.3); Platelet Count 361 X10*3/uL (160-400); Red Blood Count 3.92 X10*6/uL (4.20-5.50); Red Cell Distribution Width 12.4 % (11.0-16.0); White Blood Count 10.4 X10*3/uL (4.8-10.8)
[2022-05-01 14:32] LABS: Alanine Aminotransferase 19 U/L (0-31); Albumin Level 4.1 g/dL (3.5-5.0); Alkaline Phosphatase 118 U/L (39-117); Anion Gap 14 (12-20); Aspartate Amino Transferase 25 U/L (5-31); Bilirubin Total 0.3 mg/dL (0.0-1.0); Blood Urea Nitrogen 22 mg/dL (9-16); Calcium 9.6 mg/dL (8.4-10.2); Carbon Dioxide 34 mmol/L (22-29); Chloride 102 mmol/L (96-108); Estimated Glomerular Filt Rate 21; Glucose Random 129 mg/dL (60-115); Potassium 5.4 mmol/L (3.3-5.1); Sodium 145 mmol/L (135-145); Total Protein 7.1 g/dL (6.5-8.0)
[2022-05-04 12:48] LABS: PTHI 268 pg/mL (16-77)
== END 2022-05-01 12:55 | disposition home or self-care (01) ==
LOC: HO.HMGCLDS 12:54
PROVIDERS: PCP Internal Medicine; Visit Provider Internal Medicine Hypertension Specialist
DX: N18.4 Chronic kidney disease, stage 4 (severe) (principal)
CPT/HCPCS: 36415; 80053; 83970; 85027

== ENCOUNTER 2022-05-06 13:44 | Outpatient (REF) | payer MEDICARE, MEDICAID, SELFPAY ==
--- NOTE | ~2022-05-06 | MM_ITS ---
EXAMINATION: MM SCREENING DIGITAL BREAST TOMOSYNTHESIS, BILATERAL CLINICAL INFORMATION: Screening. Asymptomatic. The lifetime risk of breast cancer based on the Tyrer-Cuzick Model is 6%. COMPARISON: Mammography: 06/21/2020, 06/04/2020, outside exam 07/04/2015 ([place]) TECHNIQUE: Digital breast tomosynthesis is performed in both the craniocaudal and mediolateral oblique views along with computer-aided detection (CAD). Synthesized 2D images are generated from the tomosynthesis. FINDINGS: There are scattered areas of fibroglandular density (ACR BI-RADS breast composition Category b). There are no significant masses, abnormal calcifications, or other abnormalities. Parenchymal pattern is similar to prior studies. There is no developing density or architectural abnormality. The axilla and skin contours are unremarkable. No significant changes. MM/MM tomosynthesis screening BI IMPRESSION: No mammographic evidence of malignancy. ASSESSMENT: BI-RADS 1: Negative RECOMMENDATION: Routine annual mammography screening. This patient's information was entered into a reminder system with a target due date for their next mammogram.
== END 2022-05-06 13:45 | disposition home or self-care (01) ==
LOC: HO.MAMMO 13:44
PROVIDERS: Visit Provider Internal Medicine
DX: Z12.31 Encounter for screening mammogram for malignant neoplasm of breast (principal)
CPT/HCPCS: 77063; 77067

== ENCOUNTER → 2022-05-08 09:41 | Day surgery (SDC) | payer MEDICARE, MEDICAID, SELFPAY ==
[2022-04-21 14:35] VITALS: BMI 40.8
[2022-04-22 15:32] VITALS: BMI 39.6
--- NOTE | 2022-04-24 12:16 | P.CONAN_ITS ---
HPI - Anesthesia Eval Consult details Narrative: Cx'd DOS d/t recent drug use 61yo F for Hernia Repair Umbilical open with mesh 05/08/22 O2 dependent 03/2022 pulmo office visit: COPD relatively more stable . At present, due to significant weight loss her LEO seems to have resolved Stable at 03/2022 PCP visit Nephro visit 01/2022: Renal function improved and she has been taken off dialysis. She has no signs or symptoms of uremia or fluid overload at this time. Methadone daily PMFSH Active Problems Active Problems: All Active Problems (Updated 04/22/22 @ 15:30 by Jerri Sorto, TRACY) Tubulovillous adenoma of large intestine (Acute ~2020) Umbilical hernia (Acute) Herpes zoster (Acute) Osteopenia (Acute ~2017) Obesity (Acute) Methadone maintenance therapy patient (Acute) COPD (chronic obstructive pulmonary disease) (Acute) Anxiety and depression (Acute) Lung cancer (Acute ~2019) O2 dependent (Acute) Restrictive lung disease (Acute) LEO (obstructive sleep apnea) (Acute) Anemia in chronic kidney disease (Acute) Past Medical History Medical History (Updated 04/22/22 @ 15:30 by Jerri Sorto RN) Ambulates with cane Anemia in chronic kidney disease Anxiety and depression CKD (chronic kidney disease) stage 4, GFR 15-29 ml/min COPD (chronic obstructive pulmonary disease) COVID-19 (~03/2021) Dyslipidemia Family history of colon cancer Herpes zoster History of claustrophobia History of seizure HTN (hypertension) Hx of cardiac arrest (~2015) Lung cancer (~2019) Methadone maintenance therapy patient Multiple fractures of ribs O2 dependent Obesity Olecranon bursitis of left elbow LEO (obstructive sleep apnea) Osteoarthritis of ankles, bilateral Osteopenia (~2017) Post covid-19 condition, unspecified Respiratory failure Restrictive lung disease Seasonal allergies Tubulovillous adenoma of large intestine (~2020) Vitamin D deficiency Family History Family History Father Diabetes mellitus Mother Depression Mental health disorder Maternal Grandfather Colon cancer Sister No problems noted. Son No problems noted. Daughter No problems noted. Daughter No problems noted. Family history of problems with anesthesia: No Surgical History Surgical History (Updated 04/22/22 @ 15:28 by Jerri Sorto RN) History of colonoscopy (~2020) History of esophagogastroduodenoscopy (EGD) (~2021) History of hand surgery History of laparoscopy (~2012) History of lung biopsy (~2019) History of removal of ureteral stent (~2013) History of tubal ligation Hx of tracheostomy Umbilical hernia History of Problems with Anesthesia: No Social History Social History (Updated 04/22/22 @ 15:35 by Jerri Sorto RN) Household Members: Significant Other Housing: Other Housing Other:: mobile home Are you a primary intensive care medicine specialist to a significant other at home: No Do you presently have visiting nurse or other home services: Yes (VNA daily) Unable to assess alcohol history related to: Unable to respond Alcohol intake: never Patient Tobacco Use Status: Former Tobacco user Quit Date: 2006 Tobacco use type: Cigarette Years Smoked: 25 yrs Substance Use Type: Former Substance User and Heroin Advance Directives Date on File: 03/21/21 service: No Current occupational status: unemployed and disabled Cognitive needs: No Hearing needs: No Vision needs: No Meds Allergies Allergy/AdvReac Type Severity Reaction Status Date / Time ciprofloxacin [From Cipro] Allergy Severe HIVES/SWELLING, Verified 04/22/22 15:01 THROAT CLOSES shellfish derived Allergy Intermediate Vomiting Verified 04/22/22 15:30 [SHELLFISH DERIVED] NSAIDS (Non-Steroidal AdvReac Severe Avoid cue Verified 04/22/22 15:01 Anti-Inflamma to kidney disease Home Medications Medication Instructions Recorded Confirmed Last Taken Type acetaminophen 325 mg tablet 650 mg PO Q6H PRN Pain 07/24/21 04/22/22 Unknown History albuterol sulfate 2.5 mg/3 mL 3 ml inhalation Q4H PRN Shortness 07/24/21 04/22/22 Unknown History (0.083 %) solution for nebulization Of Breath furosemide 40 mg tablet 1 tab PO DAILY 07/24/21 04/22/22 Unknown History calcitriol 0.25 mcg capsule 0.25 mcg PO DAILY 12/17/21 04/22/22 Unknown History methadone 10 mg/mL oral concentrate 30 mg PO DAILY 12/17/21 04/17/22 Unknown History torsemide 20 mg tablet 40 mg PO BID 12/17/21 04/22/22 Unknown History fluvoxamine 50 mg tablet 50 mg PO BEDTIME 01/06/22 04/22/22 Unknown History gabapentin 100 mg capsule 100 mg PO BID PRN Pain 04/07/22 04/22/22 Unknown History Exam Exam Date and Time: April 24, 2022 121 Height,Weight and Vital Signs: Height 5 ft 1 in Weight 95.254 kg Assessment and Plan Assessment Anesthesia Assessment: Chart Reviewed Final Anesthetic Review Family History of Problems with Anesthesia: No History of Problems with Anesthesia: No
--- NOTE | 2022-05-08 | ECG_ITS ---
Test Reason : htn Blood Pressure : / mmHG Vent. Rate : 082 BPM Atrial Rate : 082 BPM P-R Int : 174 ms QRS Dur : 088 ms QT Int : 392 ms P-R-T Axes : 039 049 046 degrees QTc Int : 457 ms Sinus rhythm with Premature atrial complexes Otherwise normal ECG When compared with ECG of 23-JUL-2021 22:56, Premature atrial complexes are now Present Vent. rate has decreased BY 53 BPM Referred By: Cynthia Heaton Electronically Signed By:YUNIOR BARON
--- NOTE | 2022-05-08 08:36 | MHC.SHP ---
Pre-Procedural Eval Section A Date of Service: 05/08/22 The patient is an INPATIENT: No Changes since office visit: No Cold of Flu in the past 2 weeks, No New Medical Problems, No Changes in Medication and No Patient answered all questions Section B Chief Complaint: Umbilical hernia without obstruction or gangrene Allergies: Allergies Allergy/AdvReac Type Severity Reaction Status Date / Time ciprofloxacin [From Cipro] Allergy Severe HIVES/SWELLING, Verified 04/22/22 15:01 THROAT CLOSES shellfish derived Allergy Intermediate Vomiting Verified 04/22/22 15:30 [SHELLFISH DERIVED] NSAIDS (Non-Steroidal AdvReac Severe Avoid cue Verified 04/22/22 15:01 Anti-Inflamma to kidney disease Plan I have reviewed the history and physical and performed a pertinent physical examination on my patient. No changes have occurred unless specified. Time Spent With Patient Time: Total time managing care of this patient today ____ minutes.
[2022-05-08 10:18] LABS: Hematocrit 33.1 % (37.0-47.0); Hemoglobin 10.1 g/dl (12.0-16.0); Mean Corpuscular HGB Conc 30.5 g/dl (31.0-35.0); Mean Corpuscular Hemoglobin 28.2 pg (27.0-33.0); Mean Corpuscular Volume 92.5 fL (80.0-98.0); Platelet Count 276 X10*3/uL (160-400); Red Blood Count 3.58 X10*6/uL (4.20-5.50); Red Cell Distribution Width 12.6 % (11.0-16.0); White Blood Count 8.7 X10*3/uL (4.8-10.8)
[2022-05-08 10:38] VITALS: BP 132/71; PULSE 82; RESP 18; TEMP 36.4; O2SAT 95
[2022-05-08 10:41] LABS: Anion Gap 14 (12-20); Blood Urea Nitrogen 38 mg/dL (9-16); Calcium 9.2 mg/dL (8.4-10.2); Carbon Dioxide 30 mmol/L (22-29); Chloride 105 mmol/L (96-108); Creatinine Clr Calc Pharmacy 20.7; Estimated Glomerular Filt Rate 15; Glucose Fasting 87 mg/dL (60-99); Potassium 4.5 mmol/L (3.3-5.1); Sodium 144 mmol/L (135-145)
--- NOTE | 2022-05-08 10:52 | PC.NURSE ---
IV attempt by author. 2 attempts by eveline davies. Insertion by neri kirkland
== END ==
PROVIDERS: Nurse Practitioner; PCP Internal Medicine; Visit Provider Surgery
DX: K42.9 Umbilical hernia without obstruction or gangrene (principal); Z53.09 Procedure and treatment not carried out because of other contraindication; R82.5 Elevated urine levels of drugs, medicaments and biological substances; F11.90 Opioid use, unspecified, uncomplicated
CPT/HCPCS: 36415; 80048; 85027; 93005; J0690

== ENCOUNTER → 2022-05-22 15:29 | Outpatient (BNVA) | payer MEDICARE, MEDICAID, SELFPAY | PROVIDERS: PCP Internal Medicine; Visit Provider Nurse Practitioner | DX: Z12.11 Encounter for screening for malignant neoplasm of colon (principal); D12.6 Benign neoplasm of colon, unspecified; J96.90 Respiratory failure, unspecified, unspecified whether with hypoxia or hypercapnia; J98.4 Other disorders of lung; J44.9 Chronic obstructive pulmonary disease, unspecified; G47.33 Obstructive sleep apnea (adult) (pediatric); C34.90 Malignant neoplasm of unspecified part of unspecified bronchus or lung; N18.4 Chronic kidney disease, stage 4 (severe); F11.20 Opioid dependence, uncomplicated; Z80.0 Family history of malignant neoplasm of digestive organs; Z99.81 Dependence on supplemental oxygen | CPT/HCPCS: 99212 ==

== ENCOUNTER 2022-07-19 10:01 | Emergency (ER) | payer MEDICARE, MEDICAID, SELFPAY ==
--- NOTE | ~2022-07-19 | XR_ITS ---
EXAMINATION: XR CHEST CLINICAL INFORMATION: Cough COMPARISON: Previous chest x-ray most recent July 2021 TECHNIQUE: Frontal view of the chest was obtained. FINDINGS: The lung volumes are low. The cardiac and mediastinal contours are stable. There is chronic scarring or subsegmental atelectasis in the right midlung similar to previous exams. There is question of bibasilar infiltrates. The lungs are otherwise clear. No pleural effusion or pneumothorax. No acute bone abnormality. XR/XR chest 1V IMPRESSION: Low lung volumes. Question bibasilar infiltrates. Chronic scarring or subsegmental atelectasis in the right midlung similar to previous exams.
[2022-07-19 10:02] VITALS: BP 146/84; PULSE 88; RESP 18; TEMP 36.7; O2SAT 96; BMI 39.7
--- NOTE | 2022-07-19 10:05 | ECG_ITS ---
Test Reason : sob Blood Pressure : / mmHG Vent. Rate : 097 BPM Atrial Rate : 097 BPM P-R Int : 148 ms QRS Dur : 088 ms QT Int : 354 ms P-R-T Axes : 061 043 044 degrees QTc Int : 449 ms Sinus rhythm with occasional Premature ventricular complexes Otherwise normal ECG When compared with ECG of 08-MAY-2022 10:16, Premature ventricular complexes are now Present Premature atrial complexes are no longer Present Referred By: Generic ED Physician Electronically Signed By:Philip Napier
[2022-07-19 10:33] LABS: MANUAL DIFF FLAG NO
[2022-07-19 10:35] LABS: Basophils Absolute Auto 0.1 X10*3/uL (0.0-0.2); Basophils Percent Auto 0.5 % (0-2); Hematocrit 35.5 % (37.0-47.0); Hemoglobin 10.5 g/dl (12.0-16.0); Imm Gran Abs Auto 0.06 X10*3/uL (0.00-0.03); Imm Gran Pct Auto 0.5 % (0.0-0.4); Lymphocytes Absolute Auto 1.9 X10*3/uL (1.2-4.9); Lymphocytes Percent Auto 17.2 % (20-40); Mean Corpuscular HGB Conc 29.6 g/dl (31.0-35.0); Mean Corpuscular Volume 94.7 fL (80.0-98.0); Mean Platelet Volume 8.8 fL (9.4-12.3); Monocytes Percent Auto 8.9 % (2-11); Neutrophils Percent Auto 72.9 % (45-73); Platelet Count 305 X10*3/uL (160-400); Red Blood Count 3.75 X10*6/uL (4.20-5.50); Red Cell Distribution Width 13.2 % (11.0-16.0)
[2022-07-19 10:54] VITALS: BP 157/88; PULSE 101; RESP 18; TEMP 36.6; O2SAT 98
[2022-07-19 10:55] LABS: B Type Natriuretic Peptide 79 pg/mL (<100)
[2022-07-19 11:03] LABS: Alanine Aminotransferase 13 U/L (0-31); Alkaline Phosphatase 105 U/L (39-117); Anion Gap 19 (12-20); Aspartate Amino Transferase 23 U/L (5-31); Bilirubin Total 0.4 mg/dL (0.0-1.0); Blood Urea Nitrogen 27 mg/dL (9-16); Calcium 9.7 mg/dL (8.4-10.2); Carbon Dioxide 24 mmol/L (22-29); Chloride 106 mmol/L (96-108); Creatinine Clr Calc Pharmacy 23.4; Estimated Glomerular Filt Rate 18; Glucose Random 85 mg/dL (60-115); Sodium 144 mmol/L (135-145); Total Protein 7.3 g/dL (6.5-8.0)
[2022-07-19 11:05] LABS: Troponin-I High Sensitivity 7.7 ng/L (<3.5-17.0)
--- NOTE | 2022-07-19 11:10 | ED_ITS ---
HPI - General Adult General Chief complaint: Dyspnea Stated complaint: coughing Time Seen by Provider: 07/19/22 10:56 Source: patient and family (Significant other) Mode of arrival: ambulatory History of Present Illness HPI narrative: This is a 62-year-old female who reports increasing cough and shortness of breath and has a history of lung cancer and COPD and uses baseline oxygen at 2 L. she denies any fevers or chills denies any GI or symptoms. Related Data Home Medications Medication Instructions Recorded Confirmed acetaminophen 325 mg tablet 650 mg PO Q6H PRN Pain 07/24/21 06/10/22 albuterol sulfate 2.5 mg/3 mL 3 ml inhalation Q4H PRN Shortness 07/24/21 06/10/22 (0.083 %) solution for nebulization Of Breath calcitriol 0.25 mcg capsule 0.25 mcg PO DAILY 12/17/21 06/10/22 torsemide 20 mg tablet 40 mg PO BID 12/17/21 06/10/22 buspirone 5 mg tablet 5 mg PO BID 05/22/22 06/10/22 fluvoxamine 100 mg tablet 100 mg PO BEDTIME 05/22/22 06/10/22 methadone 10 mg/mL oral concentrate 40 mg PO DAILY 05/22/22 06/10/22 Previous Rx's Medication Instructions Recorded aspirin 81 mg tablet,delayed 81 mg PO DAILY #30 tabs 12/11/19 release clonazepam 1 mg tablet 1 mg PO Q4H PRN anxiety #8 tabs 09/06/21 hydroxyzine HCl 50 mg tablet 50 mg PO BEDTIME PRN anxiety #7 09/06/21 tabs diltiazem HCl 120 mg 120 mg PO DAILY #30 caps 03/24/22 capsule,extended release 24 hr Breo Ellipta 100 mcg-25 mcg/dose 1 ea PO DAILY copd 90 days #3 ea 04/10/22 powder for inhalation (fluticasone furoate-vilanterol) carvedilol 3.125 mg tablet 3.125 mg PO BID #180 tabs 04/24/22 sodium,potassium,mag sulfates 17.5 See Rx Instructions PO ONCE #354 mL 05/22/22 gram-3.13 gram-1.6 gram oral soln (Suprep Bowel Prep Kit) doxycycline hyclate 100 mg tablet 100 mg PO Q12H 10 days #20 tabs 05/03/23 gabapentin 100 mg capsule 100 mg PO BID #60 caps 07/06/22 cefpodoxime 200 mg tablet 200 mg PO BID 7 days #14 tabs 07/19/22 prednisone 50 mg tablet 50 mg PO DAILY 4 days #4 tabs 07/19/22 Allergies Allergy/AdvReac Type Severity Reaction Status Date / Time ciprofloxacin [From Cipro] Allergy Severe HIVES/SWELLING, Verified 06/10/22 15:06 THROAT CLOSES shellfish derived Allergy Intermediate Vomiting Verified 06/10/22 15:06 [SHELLFISH DERIVED] NSAIDS (Non-Steroidal AdvReac Severe Avoid due Verified 06/10/22 15:06 Anti-Inflamma to kidney disease Review of Systems Review of Systems: Pertinent positives and negatives as stated in HPI [facility] Past Medical History Source: nursing notes reviewed Medical History Ambulates with cane Anemia in chronic kidney disease Anxiety and depression CKD (chronic kidney disease) stage 4, GFR 15-29 ml/min COPD (chronic obstructive pulmonary disease) COVID-19 (~03/2021) Dyslipidemia Family history of colon cancer Herpes zoster History of claustrophobia History of seizure HTN (hypertension) Hx of cardiac arrest (~2015) Lung cancer (~2019) Methadone maintenance therapy patient Multiple fractures of ribs O2 dependent Obesity Olecranon bursitis of left elbow LEO (obstructive sleep apnea) Osteoarthritis of ankles, bilateral Osteopenia (~2017) Post covid-19 condition, unspecified Respiratory failure Restrictive lung disease Seasonal allergies Tubulovillous adenoma of large intestine (~2020) Vitamin D deficiency Surgical History History of colonoscopy (~2020) History of esophagogastroduodenoscopy (EGD) (~2021) History of hand surgery History of laparoscopy (~2012) History of lung biopsy (~2019) History of removal of ureteral stent (~2013) History of tubal ligation Hx of tracheostomy Umbilical hernia Family History Family History Father Diabetes mellitus Mother Depression Mental health disorder Maternal Grandfather Colon cancer Sister No problems noted. Son No problems noted. Daughter No problems noted. Daughter No problems noted. Social History Social History Household Members: Significant Other Housing: Other Housing Other:: mobile home Are you a primary care specialist to a significant other at home: No Do you presently have visiting nurse or other home services: Yes (VNA daily) Unable to assess alcohol history related to: Unable to respond Alcohol intake: never Patient Tobacco Use Status: Former Tobacco user Quit Date: 2006 Tobacco use type: Cigarette Years Smoked: 25 yrs Smoked in Last 30 Days: No e-Cigarette/Vaping Use: Never Used Use of substances other than those prescribed or required for medical reasons: No Substance Use Type: Former Substance User and Heroin Advance Directives: Yes Advance Directives on File: Yes Advance Directives Date on File: 03/21/21 service: No Current occupational status: unemployed and disabled Cognitive needs: No Hearing needs: No Vision needs: No Physical Exam ED Vital Signs: Vital Signs - 24 hr 07/19/22 10:02 07/19/22 10:54 07/19/22 11:45 Temperature 98.1 F 97.8 F Pulse Rate 88 101 H 103 H Respiratory Rate 18 18 18 Blood Pressure 146/84 H 157/88 H Pulse Oximetry 96 98 Oxygen Delivery Method Nasal Cannula Nasal Cannula Oxygen Flow Rate 2.5 07/19/22 12:37 Temperature 97.7 F Pulse Rate 100 Respiratory Rate 19 Blood Pressure 136/68 Pulse Oximetry 97 Oxygen Delivery Method Nasal Cannula Oxygen Flow Rate 2 BMI result Body Mass Index 39.7 VITAL SIGNS: Reviewed. GENERAL: Chronically ill, in no acute distress. HEAD: Normocephalic/atraumatic EYES: PERRLA, EOMI EARS: Ext canals without abnormality NOSE: Nares patent bilateral OROPHARYNX: no oral lesions noted, posterior pharynx clear NECK: Supple, no adenopathy LUNGS: Good inspiratory effort but bibasilar decrease, mild expiratory wheeze but no tachypnea or increased work of breathing. SpO2<97> on 2 L of nasal cannula CARDIOVASCULAR: Regular rate and rhythm without noted murmurs, no JVD or lower extremity edema. ABDOMEN: Soft, non-tender, non-distended with bowel sounds. MUSCULOSKELETAL: No tenderness, deformities, or effusions noted on gross inspection. EXTREMITIES: No cyanosis, clubbing or edema. SKIN: Inspection of the skin reveals no rashes NEUROLOGIC: Alert and oriented x 4. Strength and sensation to light touch were grossly intact x 4. Medications Administered Discontinued Medications Generic Name Dose Route Start Last Admin Trade Name Lala PRN Reason Stop Dose Admin Albuterol/Ipratropium 3 ml 07/19/22 11:27 07/19/22 11:43 Albuterol/Iprat 2.5/0.5mg 3 Ml Ampul.Neb INHALE 07/19/22 11:28 3 ml ONCE ONE Administration Clonazepam 0.5 mg 07/19/22 12:19 07/19/22 12:31 Clonazepam 0.5 Mg Tablet PO 07/19/22 12:20 0.5 mg ONCE ONE Administration Methylprednisolone Sodium Succinate 125 mg 07/19/22 11:30 07/19/22 12:32 Methylprednisolone Sod Succ 125 Mg/2 Ml Vial IVPUSH 07/19/22 11:31 125 mg ONCE ONE Administration Medical Decision Making Medical Decision Making MDM Narrative: 62-year-old female with history and clinical presentation after review of all investigations of COPD and pneumonia. Patient received DuoNeb, steroids, and will also received antibiotics. She is not tachypneic nor she hypoxic. Will discharge patient with 7 day course of antibiotics, treatment for COPD with steroids, and strict instructions to follow-up with her payroll accounting clerk. As well as strict return precautions. CURB-65- 1 Differential Diagnosis Please see the discussion above Lab Data Please see the discussion above 07/19/22 10:29 07/19/22 10:29 Labs: Lab Results 07/19/22 07/19/22 07/19/22 Range/Units 10:29 10:29 10:29 WBC 11.0 H (4.8-10.8) X10*3/uL RBC 3.75 L (4.20-5.50) X10*6/uL Hgb 10.5 L (12.0-16.0) g/dl Hct 35.5 L (37.0-47.0) % MCV 94.7 (80.0-98.0) fL MCH 28.0 (27.0-33.0) pg MCHC 29.6 L (31.0-35.0) g/dl RDW 13.2 (11.0-16.0) % Plt Count 305 (160-400) X10*3/uL MPV 8.8 L (9.4-12.3) fL Immature Gran % (Auto) 0.5 H (0.0-0.4) % Neut % (Auto) 72.9 (45-73) % Lymph % (Auto) 17.2 L (20-40) % Gaines % (Auto) 8.9 (2-11) % Eos % (Auto) 0.0 (0-4) % Baso % (Auto) 0.5 (0-2) % Lymph # (Auto) 1.9 (1.2-4.9) X10*3/uL Gaines # (Auto) 1.0 (0.1-1.2) X10*3/uL Eos # (Auto) 0.0 (0.0-0.4) X10*3/uL Baso # (Auto) 0.1 (0.0-0.2) X10*3/uL Abs Immat Gran (auto) 0.06 H (0.00-0.03) X10*3/uL Absolute Neuts (auto) 8.0 (2.0-8.3) x10*3/uL Absolute Nucleated RBC 0.000 (0.0-0.012) X10*3/uL Nucleated RBC % (auto) 0.0 (0.0-0.2) /100WBC Sodium 144 (135-145) mmol/L Potassium 5.0 (3.3-5.1) mmol/L Chloride 106 (96-108) mmol/L Carbon Dioxide 24 (22-29) mmol/L Anion Gap 19 (12-20) BUN 27 H (9-16) mg/dL Creatinine 2.69 H (0.5-1.4) mg/dL Estim Creat Clear Calc 23.4 Estimated GFR 18 Random Glucose 85 (60-115) mg/dL Lactic Acid (0.5-2.0) mmol/L Calcium 9.7 (8.4-10.2) mg/dL Total Bilirubin 0.4 (0.0-1.0) mg/dL AST 23 (5-31) U/L ALT 13 (0-31) U/L Alkaline Phosphatase 105 (39-117) U/L Troponin I High Sens 7.7 (<3.5-17.0) ng/L B-Natriuretic Peptide (<100) pg/mL Total Protein 7.3 (6.5-8.0) g/dL Albumin 4.0 (3.5-5.0) g/dL 07/19/22 07/19/22 Range/Units 10:29 12:13 WBC (4.8-10.8) X10*3/uL RBC (4.20-5.50) X10*6/uL Hgb (12.0-16.0) g/dl Hct (37.0-47.0) % MCV (80.0-98.0) fL MCH (27.0-33.0) pg MCHC (31.0-35.0) g/dl RDW (11.0-16.0) % Plt Count (160-400) X10*3/uL MPV (9.4-12.3) fL Immature Gran % (Auto) (0.0-0.4) % Neut % (Auto) (45-73) % Lymph % (Auto) (20-40) % Gaines % (Auto) (2-11) % Eos % (Auto) (0-4) % Baso % (Auto) (0-2) % Lymph # (Auto) (1.2-4.9) X10*3/uL Gaines # (Auto) (0.1-1.2) X10*3/uL Eos # (Auto) (0.0-0.4) X10*3/uL Baso # (Auto) (0.0-0.2) X10*3/uL Abs Immat Gran (auto) (0.00-0.03) X10*3/uL Absolute Neuts (auto) (2.0-8.3) x10*3/uL Absolute Nucleated RBC (0.0-0.012) X10*3/uL Nucleated RBC % (auto) (0.0-0.2) /100WBC Sodium (135-145) mmol/L Potassium (3.3-5.1) mmol/L Chloride (96-108) mmol/L Carbon Dioxide (22-29) mmol/L Anion Gap (12-20) BUN (9-16) mg/dL Creatinine (0.5-1.4) mg/dL Estim Creat Clear Calc Estimated GFR Random Glucose (60-115) mg/dL Lactic Acid 1.0 (0.5-2.0) mmol/L Calcium (8.4-10.2) mg/dL Total Bilirubin (0.0-1.0) mg/dL AST (5-31) U/L ALT (0-31) U/L Alkaline Phosphatase (39-117) U/L Troponin I High Sens (<3.5-17.0) ng/L B-Natriuretic Peptide 79 (<100) pg/mL Total Protein (6.5-8.0) g/dL Albumin (3.5-5.0) g/dL Independent Interpretation I performed an independent interpretation of an: EKG Interpretation: Sinus rhythm with PVCs, HR-97, no STEMI, MN/QRS/QTC is within normal limits. Radiology Impression Radiologist Impression: My interpretation is in agreement with radiology's impression. External Record Review External record reviewed: Outpatient record and Prior outpatient labs Discharge Plan Discharge Clinical Impression: COPD (chronic obstructive pulmonary disease), Pneumonia Patient Disposition: Home, Self-Care Instructions: COPD (Chronic Obstructive Pulmonary Disease) (ED), Pneumonia (ED) Additional Instructions: 1. Resume all home medications as prescribed. 2. Complete the entire course of antibiotics as ordered. 3. Complete the course of steroids as well. 4. Please follow-up with your primary care provider in the next 1-2 days. Return to the ER for any worsening symptoms. Prescriptions: New cefpodoxime 200 mg tablet 200 mg PO BID 7 Days Qty: 14 0RF Rx Instructions: must administer with a meal/food prednisone 50 mg tablet 50 mg PO DAILY 4 Days Qty: 4 0RF No Action aspirin 81 mg tablet,delayed release (DR/EC) 81 mg PO DAILY Qty: 30 0RF fluticasone furoate-vilanterol [Breo Ellipta] 100-25 mcg/dose blister with device 1 ea PO DAILY 90 Days Qty: 3 3RF carvedilol 3.125 mg tablet 3.125 mg PO BID Qty: 180 1RF gabapentin 100 mg capsule 100 mg PO BID Qty: 60 0RF albuterol sulfate 2.5 mg /3 mL (0.083 %) solution for nebulization 3 ml inhalation Q4H PRN (Reason: Shortness Of Breath) acetaminophen 325 mg Tablet 650 mg PO Q6H PRN (Reason: Pain) hydroxyzine HCl 50 mg tablet 50 mg PO BEDTIME PRN (Reason: anxiety) Qty: 7 0RF clonazepam 1 mg tablet 1 mg PO Q4H PRN (Reason: anxiety) Qty: 8 0RF calcitriol 0.25 mcg capsule 0.25 mcg PO DAILY torsemide 20 mg tablet 40 mg PO BID methadone 10 mg/mL concentrate 40 mg PO DAILY diltiazem HCl 120 mg capsule,extended release 24hr 120 mg PO DAILY Qty: 30 0RF Rx Instructions: temporary Rx sent for patient for 30 days , Please send future refill request to Dr Fermin Muhammad , her staff nuclear medicine technologist, who has been prescribing this ,medicine doxycycline hyclate 100 mg tablet 100 mg PO Q12H 10 Days Qty: 20 0RF fluvoxamine 100 mg tablet 100 mg PO BEDTIME buspirone 5 mg tablet 5 mg PO BID sodium,potassium,mag sulfates [Suprep Bowel Prep Kit] 17.5-3.13-1.6 gram recon soln See Rx Instructions PO ONCE Qty: 354 0RF Rx Instructions: DILUTE; drink full amount early evening before AND next morning at least 2 hr before procedure; follow w 960 mL water orally once; Referrals: Valerie Castano MD [Primary Care Provider] -
[2022-07-19] MEDS: Albuterol/Iprat 2.5/0.5MG 3 ML AMPUL.NEB INHALE (11:43)
[2022-07-19 11:45] VITALS: PULSE 103; RESP 18; O2SAT 98
[2022-07-19] MEDS: clonazePAM 0.5 MG TABLET PO (12:31)
[2022-07-19] MEDS: methylPREDNISolone Sod Succ 125 MG/2 ML VIAL IVPUSH (12:32)
[2022-07-19 12:37] VITALS: BP 136/68; PULSE 100; RESP 19; TEMP 36.5; O2SAT 97
[2022-07-19] MEDS: cefTRIAXone sodium 1 GM in 0.9 % Sodium Chloride 50 ML IV (13:11)
== END 2022-07-19 13:59 | disposition home or self-care (01) ==
PROVIDERS: Emergency Provider Student in an Organized Health Care Education/Training Program; PCP Internal Medicine
DX: J18.9 Pneumonia, unspecified organism (principal); J44.9 Chronic obstructive pulmonary disease, unspecified; R06.02 Shortness of breath; R05.9 Cough, unspecified; Z99.81 Dependence on supplemental oxygen; Z79.899 Other long term (current) drug therapy
CPT/HCPCS: 36415; 71045; 80053; 83605; 83880; 84484; 85025; 87040; 93005; 94640; 96365; 96375; 99284; 99285; J0696; J2930

== ENCOUNTER 2022-08-07 11:41 | Outpatient (REF) | payer MEDICARE, MEDICAID, SELFPAY ==
[2022-08-07 14:11] LABS: Basophils Percent Auto 0.3 % (0-2); Hematocrit 29.2 % (37.0-47.0); Hemoglobin 8.8 g/dl (12.0-16.0); Imm Gran Abs Auto 0.08 X10*3/uL (0.00-0.03); Imm Gran Pct Auto 0.7 % (0.0-0.4); Lymphocytes Absolute Auto 1.6 X10*3/uL (1.2-4.9); Lymphocytes Percent Auto 13.4 % (20-40); MANUAL DIFF FLAG SCAN; Mean Corpuscular HGB Conc 30.1 g/dl (31.0-35.0); Mean Corpuscular Hemoglobin 28.2 pg (27.0-33.0); Mean Corpuscular Volume 93.6 fL (80.0-98.0); Mean Platelet Volume 9.2 fL (9.4-12.3); Monocytes Absolute Auto 1.7 X10*3/uL (0.1-1.2); Monocytes Percent Auto 13.8 % (2-11); Neutrophils Absolute Auto 8.7 x10*3/uL (2.0-8.3); Neutrophils Percent Auto 71.8 % (45-73); Platelet Count 363 X10*3/uL (160-400); Red Blood Count 3.12 X10*6/uL (4.20-5.50); Red Cell Distribution Width 12.9 % (11.0-16.0); SCAN SMEAR FLAG 1; White Blood Count 12.1 X10*3/uL (4.8-10.8)
[2022-08-07 14:35] LABS: SLIDE REVIEW VERIFIED
[2022-08-10 15:49] LABS: Calcium (PTHI) 8.4 mg/dL (8.6-10.4); PTHI 1674 pg/mL (16-77)
== END 2022-08-07 11:42 | disposition home or self-care (01) ==
LOC: HO.HMGCLDS 11:41
PROVIDERS: PCP Internal Medicine; Visit Provider Internal Medicine Hypertension Specialist
DX: I12.9 Hypertensive chronic kidney disease with stage 1 through stage 4 chronic kidney disease, or unspecified chronic kidney disease (principal); E11.22 Type 2 diabetes mellitus with diabetic chronic kidney disease; N18.4 Chronic kidney disease, stage 4 (severe); R60.1 Generalized edema; E87.5 Hyperkalemia; E63.1 Imbalance of constituents of food intake
CPT/HCPCS: 36415; 83970; 85025

== ENCOUNTER 2022-10-01 13:24 | Outpatient (AMB) | payer MEDICARE, MEDICAID, SELFPAY ==
[2022-10-01 13:35] VITALS: BP 104/54; PULSE 100; O2SAT 94; BMI 42.9
--- NOTE | 2022-10-01 13:35 | MHC.OFFVIS ---
Intake Vital Signs 10/01/22 13:35 Height 5 ft 1 in Weight 227 lb BMI 42.9 BP 104/54 L Blood Pressure Location Lt brachial Position Sitting Pulse 100 Pulse Source Pulse Oximeter Pulse Oximetry (%) 94 Oxygen Delivery Method Nasal Cannula Oxygen Flow Rate 2 Intake Visit Reasons: copd Intake Note: pt is here for follow up and states she is about the same, no better no worse, oxygen is 24 hours a day. She also states she is having a colonoscopy next month and hernia repain and will need clearance for this to be done. colonoscopy is definateley in October and than hernia will be scheduled. pt was on symbicort and combivent and liked this better than powder with Breo. Power Project Manager Required: No Allergies ciprofloxacin [From Cipro] Allergy (Severe, Verified 10/01/22 13:57) HIVES/SWELLING, THROAT CLOSES shellfish derived [SHELLFISH DERIVED] Allergy (Intermediate, Verified 10/01/22 13:57) Vomiting NSAIDS (Non-Steroidal Anti-Inflamma Adverse Reaction (Severe, Verified 10/01/22 13:57) Avoid due to kidney disease Medication List - Last Reconciled 10/01/22 by Mayte Cochran MD acetaminophen 650 mg PO Q6H PRN albuterol sulfate 3 mL inhalation Q4H PRN aspirin 81 mg PO DAILY Breo Ellipta 100-25 mcg/dose (fluticasone furoate-vilanterol) 1 ea PO DAILY 90 days NS buspirone 5 mg PO BID calcitriol 0.25 mcg PO DAILY carvedilol 3.125 mg PO BID clonazepam 1 mg PO Q4H PRN diltiazem HCl 120 mg PO DAILY fluticasone propionate 50 mcg/actuation 0 mcg intranasal fluvoxamine 100 mg PO BEDTIME gabapentin 100 mg PO BID hydroxyzine HCl 50 mg PO BEDTIME PRN ipratropium-albuterol 0.5 mg-3 mg(2.5 mg base)/3 mL 3 mL inhalation Q4-6H PRN methadone 40 mg PO DAILY sodium,potassium,mag sulfates 17.5-3.13-1.6 gram (Suprep Bowel Prep Kit) DILUTE; drink full amount early evening before AND next morning at least 2 hr before procedure; follow w 960 mL water orally once; torsemide 40 mg PO BID Do you need a note to return to daycare/school/sports/work: No HPI copd HPI Details THIS 62 YEARS OLD FEMALE, WITH MORBID OBESITY, LONG-TIME HISTORY OF SMOKING, QUIT 10 YEARS AGO, HAS ADVANCED CHRONIC OBSTRUCTIVE PULMONARY DISEASE, OXYGEN DEPENDENT 24 HOURS A DAY, ALSO HAS SLEEP APNEA BUT COULD NOT USE THE BIPAP OR CPAP, . HAS MULTIPLE COMORBIDITIES, PAST HISTORY OF DEPENDENCE ON NARCOTICS, NOW ON METHADONE . SHE COMES AFTER 6 MONTHS FOR FOLLOW-UP. YESTERDAY FELT DOWN AT HOME AND HURT RIGHT SIDE OF THE CHEST. TODAY COMPLAINS OF PAIN IN THE RIGHT RIBCAGE IN TAKING ANY DEEP BREATH. THIS HAS MADE HER MORE SHORT OF BREATH. CURRENTLY SHE IS ON COMBINATION OF BREO 1 INHALATION DAILY AND DUONEB UPDRAFT Q I.D.. SHE STATING THAT COMBINATION OF SYMBICORT AND COMBIVENT, USED TO WORK BETTER . I THINK IT IS JUST THE PROGRESSION OF COPD RATHER THE THEN CHANGED IN THE MEDS WHICH IS CAUSING MORE SHORTNESS OF BREATH. [facility] Medical History Ambulates with cane Anemia in chronic kidney disease Anxiety and depression CKD (chronic kidney disease) stage 4, GFR 15-29 ml/min COPD (chronic obstructive pulmonary disease) COVID-19 (~03/2021) Dyslipidemia Family history of colon cancer Herpes zoster History of claustrophobia History of seizure HTN (hypertension) Hx of cardiac arrest (~2015) Lung cancer (~2019) Methadone maintenance therapy patient Multiple fractures of ribs O2 dependent Obesity Olecranon bursitis of left elbow LEO (obstructive sleep apnea) Osteoarthritis of ankles, bilateral Osteopenia (~2017) Post covid-19 condition, unspecified Respiratory failure Restrictive lung disease Seasonal allergies Tubulovillous adenoma of large intestine (~2020) Vitamin D deficiency Surgical History History of colonoscopy (~2020) History of esophagogastroduodenoscopy (EGD) (~2021) History of hand surgery History of laparoscopy (~2012) History of lung biopsy (~2019) History of removal of ureteral stent (~2013) History of tubal ligation Hx of tracheostomy Umbilical hernia Family History Father Diabetes mellitus Mother Depression Mental health disorder Maternal Grandfather Colon cancer Sister No problems noted. Son No problems noted. Daughter No problems noted. Daughter No problems noted. Social History Household Members: Significant Other Housing: Other Housing Other:: mobile home Are you a primary healthcare advisory services manager to a significant other at home: No Do you presently have visiting nurse or other home services: Yes ([facility] daily) Unable to assess alcohol history related to: Unable to respond Alcohol intake: never Patient Tobacco Use Status: Former Tobacco user Quit Date: 2006 Tobacco use type: Cigarette Years Smoked: 25 yrs e-Cigarette/Vaping Use: Never Used Substance Use Type: Former Substance User and Heroin Advance Directives Date on File: 03/21/21 service: No Current occupational status: unemployed and disabled Cognitive needs: No Hearing needs: No Vision needs: No Review of Systems Const All systems reviewed & are unremarkable except as noted in HPI and below Eyes Reports no additional complaints ENT Reports no additional complaints Card Denies chest pain, Denies irregular heart rhythm and Denies leg edema Resp Reports as per HPI and Reports other (RIGHT-SIDED RIBCAGE PAIN IS NEW DUE TO THE FALL AT HOME) GI Denies no additional complaints Denies no additional complaints Musc Reports abnormal gait (IMPAIRED LOCOMOTION, WALKS SLOW, WITH MINIMAL SUPPORT) and Reports back pain Skin/Breast Reports system reviewed and no additional complaints, except as documented Neuro Reports abnormal gait (IMPAIRED LOCOMOTION, WALKS SLOW, WITH MINIMAL SUPPORT) Psych Reports no additional complaints Physical Exam Vital Signs: Last Vital Signs Pulse 100 10/01/22 13:35 BP 104/54 L 10/01/22 13:35 Pulse Ox 94 10/01/22 13:35 Oxygen Delivery Method Nasal Cannula 10/01/22 13:35 Oxygen Flow Rate 2 10/01/22 13:35 BMI result Body Mass Index 42.9 Const General: no acute distress, alert and awake; No comfortable (COMPLAINS OF PAIN IN THE RIGHT MIDTHORACIC AREA.) Orientation/consciousness: patient oriented x3 HEENT Head: Yes normal to inspection General nose exam: No nasal polyps present and No nasal discharge present Face and sinus: Yes sinuses nontender Mouth: oropharynx normal Throat: Yes posterior oropharynx normal Eyes General: appearance normal, both eyes and all related structures Neck Neck: Yes normal visual inspection, Yes no lymphadenopathy, Yes trachea midline and Yes no JVD Thyroid: Thyroid normal Chest Chest palpation & inspection: abnormal inspection of the chest (SHE IS TENDER TO TOUCH ON THE RIGHT LOWER CAGE, BUT NO CREPITUS.) Resp Other: Percussion note is resonant, breath sounds remain very distant with prolonged expiratory phase. No wheezes rhonchi or crepitations are heard today. There is no pleural rub on the right side. Cardio Palpation: normal PMI Rate: regular rate Rhythm: regular rhythm Heart sounds: no gallops and no murmurs GI Palpation (GI): Soft to palpation, nontender, No hepatosplenomegaly present and no masses Auscultation: normal bowel sounds Back/Spine/Pelvis Thoracic/Lumbar Spine: thoracic and lumbar spine normal to inspection and thoraco-lumbar ROM limited Skin Other: Is small cluster of vesicular rash over the right mid chest. Neuro General: patient oriented x3, No gait normal (Non ambulatory) and no focal motor deficits Cranial nerves: Yes CN's II-XII intact bilaterally Extrem General: Yes normal to inspection, Yes no clubbing, cyanosis or edema and Yes no calf tenderness Psych Speech and movement: Normal speech and movement present Assessment & Plan Assessment & Plan (1) COPD (chronic obstructive pulmonary disease): Comment: PATIENT HAS LONG-STANDING HISTORY OF CHRONIC OBSTRUCTIVE PULMONARY DISEASE PRIMARILY DUE TO HER LONG TIME SMOKING. SINCE HER COVID 19 INFECTION EARLIER THIS YEAR, SHE HAS QUIT SMOKING. COPD HAS BEEN RELATIVELY MORE STABLE. TX: CONTINUE BREO-100 ONCE A DAY DUONEB UPDRAFTS Q 6 HOURS AND MAY USE UP TO 4 TIMES A DAY . I EXPLAINED TO HER THAT THE DUONEB SOLUTION IS ACUTE WILL INTO COMBJEANT MDI. 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 Last CT scan of the chest performed at [facility] in September 2020, showed that there was no residual mass. This patient has lost follow-up at [facility]. Code(s): C34.90 - Malignant neoplasm of unspecified part of unspecified bronchus or lung (3) O2 dependent: Comment: (2 L/min cont) Code(s): Z99.81 - Dependence on supplemental oxygen (4) Restrictive lung disease: Comment: SHE HAS SIGNIFICANT DEGREE OF RESTRICTIVE PULMONARY DISORDER, PRIMARILY DUE TO MORBID OBESITY. ADVISE THAT SHE SHOULD CONTINUE TO DO DEEP BREATHING EXERCISES BEFORE. Code(s): J98.4 - Other disorders of lung (5) LEO (obstructive sleep apnea): Comment: SHE HAS HAD HISTORY OF LEO/CHRONIC HYPOVENTILATION SYNDROME. SHE HAS NOT BEEN ABLE TO USE CPAP IN THE PAST. SHE HAS ALWAYS BEEN TREATED WITH OXYGEN 2 L/MINUTE AT NIGHT. Code(s): G47.33 - Obstructive sleep apnea (adult) (pediatric) Plan: PATIENT STATES THAT SHE HAS PENDING, PROCEDURE COLONOSCOPY IN , AND ALSO WOULD BE GETTING REPAIR OF THE HERNIA. I TOLD HER THAT THESE PROCEDURES SHOULD BE DONE IF ABSOLUTELY NECESSARY. SHE CONTINUES TO BE A HIGH RISK FOR ANY SURGICAL PROCEDURES. Coding Level of Care Code Est Pt Level 4 (78919) Diagnoses COPD (chronic obstructive pulmonary disease) J44.9 Lung cancer C34.90 O2 dependent Z99.81 Restrictive lung disease J98.4 LEO (obstructive sleep apnea) G47.33
== END 2022-10-01 13:55 | disposition home or self-care (01) ==
PROVIDERS: PCP Internal Medicine; Visit Provider Internal Medicine
DX: J44.9 Chronic obstructive pulmonary disease, unspecified (principal); C34.90 Malignant neoplasm of unspecified part of unspecified bronchus or lung; Z99.81 Dependence on supplemental oxygen; J98.4 Other disorders of lung; G47.33 Obstructive sleep apnea (adult) (pediatric)
CPT/HCPCS: 99214

== ENCOUNTER → 2022-10-01 13:24 | Outpatient (BNVA) | payer MEDICARE, MEDICAID, SELFPAY | PROVIDERS: PCP Internal Medicine; Visit Provider Internal Medicine | DX: J44.9 Chronic obstructive pulmonary disease, unspecified (principal); J98.4 Other disorders of lung; G47.33 Obstructive sleep apnea (adult) (pediatric); C34.90 Malignant neoplasm of unspecified part of unspecified bronchus or lung; Z99.81 Dependence on supplemental oxygen | CPT/HCPCS: 99212 ==

== ENCOUNTER 2022-10-02 10:10 | Outpatient (AMB) | payer MEDICARE, MEDICAID, SELFPAY ==
--- NOTE | 2022-10-02 10:19 | MHC.PC.OV ---
Vital Signs 10/02/22 10:20 Height 5 ft 1 in Weight 227 lb BMI 42.9 BP 112/60 Blood Pressure Location Rt brachial Position Sitting Pulse 58 Pulse Source Pulse Oximeter Pulse Oximetry (%) 95 Oxygen Delivery Method Room Air Intake Visit Reasons: complaints of tremors Intake Note: pt is here for complaints of tremor Allergies ciprofloxacin [From Cipro] Allergy (Severe, Verified 10/02/22 10:23) HIVES/SWELLING, THROAT CLOSES shellfish derived [SHELLFISH DERIVED] Allergy (Intermediate, Verified 10/02/22 10:23) Vomiting NSAIDS (Non-Steroidal Anti-Inflamma Adverse Reaction (Severe, Verified 10/02/22 10:23) Avoid due to kidney disease Medication List - Last Reconciled 10/03/22 by Valerie Castano MD acetaminophen 650 mg PO Q6H PRN albuterol sulfate 3 mL inhalation Q4H PRN aspirin 81 mg PO DAILY Breo Ellipta 100-25 mcg/dose (fluticasone furoate-vilanterol) 1 ea PO DAILY 90 days NS buspirone 5 mg PO BID calcitriol 0.25 mcg PO DAILY carvedilol 3.125 mg PO BID clonazepam 1 mg PO Q4H PRN diltiazem HCl 120 mg PO DAILY fluticasone propionate 50 mcg/actuation 0 mcg intranasal fluvoxamine 100 mg PO BEDTIME gabapentin 100 mg PO BID hydroxyzine HCl 50 mg PO BEDTIME PRN ipratropium-albuterol 0.5 mg-3 mg(2.5 mg base)/3 mL 3 mL inhalation Q4-6H PRN methadone 40 mg PO DAILY sodium,potassium,mag sulfates 17.5-3.13-1.6 gram (Suprep Bowel Prep Kit) DILUTE; drink full amount early evening before AND next morning at least 2 hr before procedure; follow w 960 mL water orally once; torsemide 40 mg PO BID Tobacco use date assessed: 08/07/22 HPI complaints of tremors HPI Details 62-year-old lady with chronic disease, history of opiate abuse currently on methadone, has osteopenia, anxiety depression, COPD, obstructive sleep apnea, has restrictive lung disease, here today complaining of worsening tremors in both hands. This has been present now for several months to year and is getting worse. Has been spilling things, unable to write legibly , keeps on dropping things [facility] Medical History Ambulates with cane Anemia in chronic kidney disease Anxiety and depression CKD (chronic kidney disease) stage 4, GFR 15-29 ml/min COPD (chronic obstructive pulmonary disease) COVID-19 (~03/2021) Dyslipidemia Family history of colon cancer Herpes zoster History of claustrophobia History of seizure HTN (hypertension) Hx of cardiac arrest (~2015) Lung cancer (~2019) Methadone maintenance therapy patient Multiple fractures of ribs O2 dependent Obesity Olecranon bursitis of left elbow LEO (obstructive sleep apnea) Osteoarthritis of ankles, bilateral Osteopenia (~2017) Post covid-19 condition, unspecified Respiratory failure Restrictive lung disease Seasonal allergies Tremor of both hands Tubulovillous adenoma of large intestine (~2020) Vitamin D deficiency Surgical History History of colonoscopy (~2020) History of esophagogastroduodenoscopy (EGD) (~2021) History of hand surgery History of laparoscopy (~2012) History of lung biopsy (~2019) History of removal of ureteral stent (~2013) History of tubal ligation Hx of tracheostomy Umbilical hernia Family History Father Diabetes mellitus Mother Depression Mental health disorder Maternal Grandfather Colon cancer Sister No problems noted. Son No problems noted. Daughter No problems noted. Daughter No problems noted. Social History Household Members: Significant Other Housing: Other Housing Other:: mobile home Are you a primary respiratory care faculty to a significant other at home: No Do you presently have visiting nurse or other home services: Yes ([facility]NA daily) Unable to assess alcohol history related to: Unable to respond Alcohol intake: never Patient Tobacco Use Status: Former Tobacco user Quit Date: 2006 Tobacco use type: Cigarette Years Smoked: 25 yrs e-Cigarette/Vaping Use: Never Used Substance Use Type: Former Substance User and Heroin Advance Directives Date on File: 03/21/21 service: No Current occupational status: unemployed and disabled Cognitive needs: No Hearing needs: No Vision needs: No Questionnaire Thrive Questionnaire Date Thrive assessed: 03/24/22 TONIE-7 AMB Questionnaire TONIE-7 Date TONIE - 7 assessed: 03/24/22 Source: Developed by Drs. Marco Ramirez, Elisa Kennedy, Warren Galvan and colleagues, with an educational cheo from [employer]. Review of Systems Const All systems reviewed & are unremarkable except as noted in HPI and below Physical exam (Primary Care) Vital Signs: Last Vital Signs Pulse 58 10/02/22 10:20 BP 112/60 10/02/22 10:20 Pulse Ox 95 10/02/22 10:20 Oxygen Delivery Method Room Air 10/02/22 10:20 BMI result Body Mass Index 42.9 Tobacco/Smoking Status: Tobacco use Status Tobacco use date assessed 08/07/22 10/02/22 10:23 Patient Tobacco Use Status Former Tobacco user 10/02/22 10:23 Tobacco use type Cigarette 10/02/22 10:23 e-Cigarette/Vaping Use Never Used 10/02/22 10:23 Thrive Assessment: Date of Thrive Assessment Date Thrive assessed 03/24/22 10/02/22 10:23 Const Other: Alert oriented x3, ambulatory with assistance of cane, BUSINESS PLANNING MANAGER accompanying patient today Nutritional Appearance: obese Orientation/consciousness: patient oriented x3 Neuro Other: Coarse tremors in both hands, right more than blood General: patient oriented x3, moves all extremities, Normal light touch and pain sensation, no focal motor deficits and CN's II-XI intact bilaterally Assessment and Plan Assessment & Plan (1) Tremor of both hands: Code(s): R25.1 - Tremor, unspecified Plan: Neurology consult ordered for further evaluation and management Orders: Referrals Neurology Referral R25.1 - Tremor, unspecified Coding Level of Care Code Est Pt Level 3 (88461) Diagnoses Tremor of both hands R25.1
[2022-10-02 10:20] VITALS: BP 112/60; PULSE 58; O2SAT 95; BMI 42.9
== END 2022-10-02 11:36 | disposition home or self-care (01) ==
LOC: HO.HMGC 10:11
PROVIDERS: PCP Internal Medicine; Visit Provider Internal Medicine
DX: R25.1 Tremor, unspecified (principal)
CPT/HCPCS: 99213

== ENCOUNTER 2022-10-20 09:07 | Outpatient (AMB) | payer MEDICARE, MEDICAID, SELFPAY ==
--- NOTE | 2022-10-20 09:16 | A.OFFVIS_ITS ---
Intake Vital Signs 10/20/22 09:17 Height 5 ft 1 in Weight 227 lb BMI 42.9 BP 108/68 Blood Pressure Location Lt brachial Position Sitting Pulse 95 Pulse Source Pulse Oximeter Pulse Oximetry (%) 94 Oxygen Delivery Method Nasal Cannula Oxygen Flow Rate 2 Intake Visit Reasons: sick visit Intake Note: pt is here for sick visit, something in the chest and she just cannot get it out. Panel Machine Tender Required: No Allergies ciprofloxacin [From Cipro] Allergy (Severe, Verified 10/20/22 09:25) HIVES/SWELLING, THROAT CLOSES shellfish derived [SHELLFISH DERIVED] Allergy (Intermediate, Verified 10/20/22 09:25) Vomiting NSAIDS (Non-Steroidal Anti-Inflamma Adverse Reaction (Severe, Verified 10/20/22 09:25) Avoid due to kidney disease Medication List - Last Reconciled 10/20/22 by Mayte Cochran MD acetaminophen 650 mg PO Q6H PRN albuterol sulfate 3 mL inhalation Q4H PRN aspirin 81 mg PO DAILY Breo Ellipta 100-25 mcg/dose (fluticasone furoate-vilanterol) 1 ea PO DAILY 90 days NS buspirone 5 mg PO BID calcitriol 0.25 mcg PO DAILY carvedilol 3.125 mg PO BID clonazepam 1 mg PO Q4H PRN diltiazem HCl 120 mg PO DAILY fluticasone propionate 50 mcg/actuation 1 spray intranasal DAILY fluvoxamine 100 mg PO BEDTIME gabapentin 100 mg PO BID hydroxyzine HCl 50 mg PO BEDTIME PRN ipratropium-albuterol 0.5 mg-3 mg(2.5 mg base)/3 mL 3 mL inhalation Q4-6H PRN methadone 40 mg PO DAILY sodium,potassium,mag sulfates 17.5-3.13-1.6 gram (Suprep Bowel Prep Kit) DILUTE; drink full amount early evening before AND next morning at least 2 hr before procedure; follow w 960 mL water orally once; torsemide 40 mg PO BID Do you need a note to return to daycare/school/sports/work: No HPI sick visit HPI Details This 62 years old patient with advanced chronic obstructive pulmonary disease, obesity, obstructive sleep apnea, O2 dependent. Past history of opioids abuse, now on methadone. Comes in with a history of increased cough and distress for the last few days. Denies any symptoms, of common cold ,. fever or chest pain She feels that the mucus is stocked deep in and she cannot expectorates. And due to the symptoms she is getting fatigued and having constant urge to cough. ON LICENSE OF [facility] Medical History Acute exacerbation of chronic obstructive pulmonary disease Tremor of both hands Ambulates with cane Seasonal allergies Herpes zoster Post covid-19 condition, unspecified COPD (chronic obstructive pulmonary disease) Osteopenia (~2017) Obesity Respiratory failure COVID-19 (~03/2021) Osteoarthritis of ankles, bilateral Olecranon bursitis of left elbow Tubulovillous adenoma of large intestine (~2020) Hx of cardiac arrest (~2015) O2 dependent Methadone maintenance therapy patient History of claustrophobia History of seizure Anxiety and depression HTN (hypertension) Multiple fractures of ribs Anemia in chronic kidney disease Vitamin D deficiency Family history of colon cancer CKD (chronic kidney disease) stage 4, GFR 15-29 ml/min Dyslipidemia Restrictive lung disease Lung cancer (~2019) LEO (obstructive sleep apnea) Surgical History Hx of tracheostomy History of esophagogastroduodenoscopy (EGD) (~2021) History of removal of ureteral stent (~2013) History of lung biopsy (~2019) History of colonoscopy (~2020) Umbilical hernia History of laparoscopy (~2012) History of hand surgery History of tubal ligation Family History Father Diabetes mellitus Mother Depression Mental health disorder Maternal Grandfather Colon cancer Sister No problems noted. Son No problems noted. Daughter No problems noted. Daughter No problems noted. Social History Household Members: Significant Other Housing: Other Housing Other:: mobile home Are you a primary health care / medical job titles to a significant other at home: No Do you presently have visiting nurse or other home services: Yes ([facility]NA daily) Unable to assess alcohol history related to: Unable to respond Alcohol intake: never Patient Tobacco Use Status: Former Tobacco user Quit Date: 2006 Tobacco use type: Cigarette Years Smoked: 25 yrs e-Cigarette/Vaping Use: Never Used Substance Use Type: Former Substance User and Heroin Advance Directives Date on File: 03/21/21 service: No Current occupational status: unemployed and disabled Cognitive needs: No Hearing needs: No Vision needs: No Review of Systems Const All systems reviewed & are unremarkable except as noted in HPI and below Eyes Reports no additional complaints ENT Reports no additional complaints Card Denies chest pain, Denies irregular heart rhythm and Denies leg edema Resp Reports as per HPI and Reports other (RIGHT-SIDED RIBCAGE PAIN IS NEW DUE TO THE FALL AT HOME) GI Denies no additional complaints Denies no additional complaints Musc Reports abnormal gait (IMPAIRED LOCOMOTION, WALKS SLOW, WITH MINIMAL SUPPORT) and Reports back pain Skin/Breast Reports system reviewed and no additional complaints, except as documented Neuro Reports abnormal gait (IMPAIRED LOCOMOTION, WALKS SLOW, WITH MINIMAL SUPPORT) Psych Reports no additional complaints Physical Exam Vital Signs: Last Vital Signs Pulse 95 10/20/22 09:17 BP 108/68 10/20/22 09:17 Pulse Ox 94 10/20/22 09:17 Oxygen Delivery Method Nasal Cannula 10/20/22 09:17 Oxygen Flow Rate 2 10/20/22 09:17 BMI result Body Mass Index 42.9 Const General: no acute distress, alert and awake; No comfortable (COMPLAINS OF PAIN IN THE RIGHT MIDTHORACIC AREA.) Orientation/consciousness: patient oriented x3 HEENT Head: Yes normal to inspection General nose exam: No nasal polyps present and No nasal discharge present Face and sinus: Yes sinuses nontender Mouth: oropharynx normal Throat: Yes posterior oropharynx normal Eyes General: appearance normal, both eyes and all related structures Neck Neck: Yes normal visual inspection, Yes no lymphadenopathy, Yes trachea midline and Yes no JVD Thyroid: Thyroid normal Chest Chest palpation & inspection: abnormal inspection of the chest (SHE IS TENDER TO TOUCH ON THE RIGHT LOWER CAGE, BUT NO CREPITUS.) and no tenderness Resp Other: Percussion note is resonant, breath sounds remain very distant with prolonged expiratory phase. She has scattered expiratory wheezes on both sides. No crepitations or Rub. Cardio Palpation: normal PMI Rate: regular rate Rhythm: regular rhythm Heart sounds: no gallops and no murmurs GI Palpation (GI): Soft to palpation, nontender, No hepatosplenomegaly present and no masses Auscultation: normal bowel sounds Back/Spine/Pelvis Thoracic/Lumbar Spine: thoracic and lumbar spine normal to inspection and thoraco-lumbar ROM limited Skin Other: Is small cluster of vesicular rash over the right mid chest. Neuro General: patient oriented x3, No gait normal (Non ambulatory) and no focal motor deficits Cranial nerves: Yes CN's II-XII intact bilaterally Extrem General: Yes normal to inspection, Yes no clubbing, cyanosis or edema and Yes no calf tenderness Psych Speech and movement: Normal speech and movement present Assessment & Plan Assessment & Plan (1) Acute exacerbation of chronic obstructive pulmonary disease: Comment: Acute exacerbation of chronic obstructive pulmonary disease probably due to incr eased secretions which she cannot expectorate. Chest x-ray is ordered. TX Continue DuoNeb updrafts q.i.d. and Breo-101 inhalation daily. Prednisone 20 mg b.i.d. for 7 days. Mucinex 600 mg b.i.d. also prescribed. Call in 1 week if not any better.. Code(s): J44.1 - Chronic obstructive pulmonary disease with (acute) exacerbation Orders: Orders XR chest 2V Today J44.1 - Chronic obstructive pulmonary disease with (acute) exacerbation, J44.9 - Chronic obstructive pulmonary disease, unspecified Medications: New prednisone 2 tabs BID for five days , then 1 tab daily until finished 20 mg PO BID 14 tabs 0RF copd excerbation 7 days Coding Level of Care Code Est Pt Level 3 (60435) Diagnoses Acute exacerbation of chronic obstructive pulmonary disease J44.1
[2022-10-20 09:17] VITALS: BP 108/68; PULSE 95; O2SAT 94; BMI 42.9
== END 2022-10-20 09:33 | disposition home or self-care (01) ==
PROVIDERS: PCP Internal Medicine; Visit Provider Internal Medicine
DX: J44.1 Chronic obstructive pulmonary disease with (acute) exacerbation (principal)
CPT/HCPCS: 99213

== ENCOUNTER 2022-10-20 09:07 | Outpatient (REF) | payer MEDICARE, MEDICAID, SELFPAY ==
--- NOTE | ~2022-10-20 | XR_ITS ---
EXAMINATION: XR CHEST CLINICAL INFORMATION: COPD COMPARISON: 07/19/2022 and a 07/23/2025.. TECHNIQUE: 2 views of the chest were obtained. FINDINGS: Heart and mediastinum within normal limits. Underlying hyperinflation again seen. Chronic right mid lung scarring/atelectasis. Right base opacity on recent chest radiograph has resolved. Mild bibasilar atelectasis seen. No vascular congestion, consolidations or effusions. Mild kyphosis. XR/XR chest 2V IMPRESSION: Hyperinflation and chronic findings. Basilar atelectasis.
== END 2022-10-20 09:08 | disposition home or self-care (01) ==
LOC: HO.XRAY 09:07
PROVIDERS: PCP Internal Medicine; Visit Provider Internal Medicine
DX: J44.1 Chronic obstructive pulmonary disease with (acute) exacerbation (principal); D12.6 Benign neoplasm of colon, unspecified; N18.4 Chronic kidney disease, stage 4 (severe); J44.9 Chronic obstructive pulmonary disease, unspecified; C34.90 Malignant neoplasm of unspecified part of unspecified bronchus or lung; G47.33 Obstructive sleep apnea (adult) (pediatric); Z99.81 Dependence on supplemental oxygen
CPT/HCPCS: 71046; 99212

== ENCOUNTER 2022-10-20 09:38 | Outpatient (AMB) | payer MEDICARE, MEDICAID, SELFPAY ==
--- NOTE | 2022-10-20 09:47 | A.OFFVIS_ITS ---
Intake Vital Signs 10/20/22 09:55 Height 5 ft 1 in Weight 227 lb BMI 42.9 BP 101/50 L Blood Pressure Location Lt brachial Position Sitting Intake Visit Reasons: pt req to be seen by provider Intake Note: Patient presents to in office visit today to discuss colonoscopy options. CC: Reports she would like to discuss alternatives to colonoscopy. Denies having any GI symptoms today. 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: No Allergies ciprofloxacin [From Cipro] Allergy (Severe, Verified 10/20/22 09:25) HIVES/SWELLING, THROAT CLOSES shellfish derived [SHELLFISH DERIVED] Allergy (Intermediate, Verified 10/20/22 09:25) Vomiting NSAIDS (Non-Steroidal Anti-Inflamma Adverse Reaction (Severe, Verified 10/20/22 09:25) Avoid due to kidney disease HPI pt req to be seen by provider HPI Details Assessment & Plan (1) Tubulovillous adenoma of large intes seymour: Onset Date: ~2020 Comment: (TA 2014 & TVA on 10/2020 scope - repeat 1-2 years) Code(s): D12.6 - Benign neoplasm of colon, unspecified Plan: IT APPEARS THAT SHE NEVER FOLLOWED UP IN THE OFFICE AFTER THIS COLONOSCOPY AND LIKELY IS ALREADY DUE FOR 1 YEAR REPEAT AFTER HER TUBULOVILLOUS ADENOMA. She says she will be having sedation for an umbilical hernia repair next week. With this information it certainly sounds like she is clear for surgical procedure/sedation with relation to her renal status and her history of lung cancer. Her renal doctor is Dr. Figueroa, and her Lung Ca is managed at [facility]. Fall there are no cristofer problems with anesthesia or sedation she does have end- stage COPD and is oxygen dependent. She denies any cardiac problems. There are no infectious disease problems. She had a recent history of a tubulovillous adenoma or and her maternal grandfather of colorectal cancer. (2) LEO (obstructive sleep apnea): Comment: SHE HAS HAD HISTORY OF LEO/CHRONIC HYPOVENTILATION SYNDROME. SHE HAS NOT BEEN ABLE TO USE CPAP IN THE PAST. SHE HAS ALWAYS BEEN TREATED WITH OXYGEN 2 L/MINUTE AT NIGHT. AT PRESENT DUE TO SIGNIFICANT WEIGHT LOSS HER LEO IS SEEMS TO HAVE RESOLVED. Code(s): G47.33 - Obstructive sleep apnea (adult) (pediatric) (3) Lung cancer: Onset Date: ~2019 Comment: (Adenocarcinoma RML Dx 02/20/2019 - s/p S BRT complete 05/19/2019) Treatment has been successful, the neoplastic nodule seems to have resolved. Last CT scan of the chest performed at [facility] in September 2020, showed that there was no residual mass. This patient has lost follow-up at [facility]. She was talking about having a repeat CT scan. I told her that if she is not going to [facility] for follow-up then we would order a CT scan of the chest at [facility] on her next visit. Code(s): C34.90 - Malignant neoplasm of unspecified part of unspecified bronchus or lung (4) COPD (chronic obstructive pulmonary disease): Comment: PATIENT HAS LONG-STANDING HISTORY OF CHRONIC OBSTRUCTIVE PULMONARY DISEASE PRIMARILY DUE TO HER LONG TIME SMOKING. SINCE HER COVID 19 INFECTION EARLIER THIS YEAR, SHE HAS QUIT SMOKING. COPD HAS BEEN RELATIVELY MORE STABLE. TX: CONTINUE BREO-100 ONCE A DAY DUONEB UPDRAFTS Q 6 HOURS P.R.N. DURING THE DAY. Code(s): J44.9 - Chronic obstructive pulmonary disease, unspecified (5) Methadone maintenance therapy patien t: Code(s): F11.20 - Opioid dependence, uncomplicated (6) CKD (chronic kidney disease) stage 4 , GFR 15-29 ml/min: Comment: (Followed by Dr. Muhammad [facility] [place]) Code(s): N18.4 - Chronic kidney disease, stage 4 (severe) (7) Pre-op examination: Code(s): Z01.818 - Encounter for other preprocedural examination Medications: New sodium,potassium,m ag sulfates 17.5-3 .13-1.6 gram (Supr ep Bowel Prep Kit) DILUTE; drink full amount early even ing before AND nex t morning at least 2 hr before proce dure; follow w 960 mL water orally o nce; 354 mL 0RF D12.6 - Benign frances plasm of colon, un specified CORRESPONDENCE On 10/19/22 @ 11:40 Valerie Castano Wrote To Cinthia Jones noted , cologuard ordered On 10/19/22 @ 11:25 Berenice Hernandez Wrote To Valerie Castano (2) The I think it is better that we redirect Deirdre back to her primary care provider with the following information and have them schedule any appointments for clearance and then send us approval. Obviously she is a high risk for colon cancer with a history of a tubulovillous adenoma. In the meantime I suggest we send a Cologuard kit. On 10/15/22 @ 16:28 Faviola Alberto Wrote To DavidMay spoke with patient, she will see May 17 at 9:45am. On 10/15/22 @ 16:09 Deanna Sandoval Wrote To Faviola Alberto Not an urgent visit - can be seen by May when she returns, thanks On 10/15/22 @ 15:44 Faviola Alberto Wrote To Deanna Sandoval Berenice is not back until Wednesday, you have an opening Wednesday at 11:15, can I put her in to discuss? (obviously patient would have to agree to come in too.) On 10/15/22 @ 13:19 Deanna Sandoval Wrote To Berenice Hernandez (2) Reviewed - agreed. Should have risk vs benefit discussion in office and anesthesia pre-op consultation before proceeding. Thanks On 10/15/22 @ 12:31 Faviola Alberto Wrote To DavidBerenice (2) Deirdre is scheduled for colo on 10/22. Deirdre has quite the extensive PMHx. May saw her 05/22/22, she did obtain pulmonary clearance - saw Dr. Cochran on 10/01 reports patient is High Risk for any surgical procedure and procedures should be done if absolutely necessary. I understand she has hx of tubulovillous . Just making sure we should proceed. TY TODAY'S VISIT IT APPEARS THAT SHE NEVER FOLLOWED UP IN THE OFFICE AFTER THIS COLONOSCOPY AND LIKELY IS ALREADY DUE FOR 1 YEAR REPEAT AFTER HER TUBULOVILLOUS ADENOMA. I here with her the concerns that are too physicians given her high risk for anesthesia and she is understanding about the situation. I let know that if we decide that the colonoscopy needs to go forward it likely would best be performed at [facility] since this is a tertiary center with better services for a high risk patient. First, however I think we will do a Cologuard to see if the DNA test comes back positive to see if we have time to consider getting this scheduled or whether it needs to be rushed. Her primary care provider was provided a copy of this and should be sending her for additional consultations regarding anesthesia/sedation. They also ordered the Cologuard test. The patient voices concern about an upcoming hernia surgery and I tell her that I cannot speak for what her risk is for that procedure as that would be left to between the surgeons and that teen. She suppresses the opinion that she does not want the surgery because the hernia is not that bothersome to her. Again, I leave this between her and the surgical staff. Return office visit in 6 weeks to go over Cologuard results. He [facility] Medical History Acute exacerbation of chronic obstructive pulmonary disease Tremor of both hands Ambulates with cane Seasonal allergies Herpes zoster Post covid-19 condition, unspecified COPD (chronic obstructive pulmonary disease) Osteopenia (~2017) Obesity Respiratory failure COVID-19 (~03/2021) Osteoarthritis of ankles, bilateral Olecranon bursitis of left elbow Tubulovillous adenoma of large intestine (~2020) Hx of cardiac arrest (~2015) O2 dependent Methadone maintenance therapy patient History of claustrophobia History of seizure Anxiety and depression HTN (hypertension) Multiple fractures of ribs Anemia in chronic kidney disease Vitamin D deficiency Family history of colon cancer CKD (chronic kidney disease) stage 4, GFR 15-29 ml/min Dyslipidemia Restrictive lung disease Lung cancer (~2019) LEO (obstructive sleep apnea) Surgical History Hx of tracheostomy History of esophagogastroduodenoscopy (EGD) (~2021) History of removal of ureteral stent (~2013) History of lung biopsy (~2019) History of colonoscopy (~2020) Umbilical hernia History of laparoscopy (~2012) History of hand surgery History of tubal ligation Family History Father Diabetes mellitus Mother Depression Mental health disorder Maternal Grandfather Colon cancer Sister No problems noted. Son No problems noted. Daughter No problems noted. Daughter No problems noted. Social History Household Members: Significant Other Housing: Other Housing Other:: mobile home Are you a primary customer care assistant to a significant other at home: No Do you presently have visiting nurse or other home services: Yes ([facility] daily) Unable to assess alcohol history related to: Unable to respond Alcohol intake: never Patient Tobacco Use Status: Former Tobacco user Quit Date: 2006 Tobacco use type: Cigarette Years Smoked: 25 yrs e-Cigarette/Vaping Use: Never Used Substance Use Type: Former Substance User and Heroin Advance Directives Date on File: 03/21/21 service: No Current occupational status: unemployed and disabled Cognitive needs: No Hearing needs: No Vision needs: No Review of Systems Const Denies fatigue, Denies fever(s), Denies night sweats, Denies poor appetite and Denies weight loss Eyes Details: glasses Reports requires corrective lenses ENT Reports Normal hearing present, Denies dental pain, Denies dysphagia, Denies hearing loss, Denies mouth pain, Denies odynophagia, Denies throat swelling, Denies tongue swelling and Reports other (Dentition adequate) Card Reports no additional complaints and Reports dyspnea on exertion Resp Reports dyspnea on exertion GI Denies abdominal pain, Denies melena, Denies bloating, Denies hematochezia, Denies constipation, Denies GI cramping, Denies dysphagia, Denies excessive flatus, Denies early satiety, Denies heartburn, Denies diarrhea, Denies nausea, Denies odynophagia, Denies vomiting and Denies hematemesis Musc Reports muscle weakness Skin/Breast Denies pruritus, Denies lesions, Denies rash and Denies jaundice Neuro Reports Normal hearing present and Denies Abnormal speech present Endo Denies fatigue Aller/Immun Denies throat swelling and Denies tongue swelling Physical Exam Vital Signs: Last Vital Signs BP 101/50 L 10/20/22 09:55 BMI result Body Mass Index 42.9 Const General: cooperative, no acute distress, well developed and well groomed Nutritional Appearance: well nourished and obese morbidly obese Orientation/consciousness: oriented to person, oriented to place and oriented to time Limitations: No language barrier and wheelchair HEENT Head: Yes normocephalic and Yes atraumatic Eyes General: appearance normal, both eyes and all related structures Pupils: Equal, round and reactive pupils present Neck Neck: Yes normal visual inspection and Yes no lymphadenopathy Thyroid: Thyroid normal Resp Effort & Inspection: normal respiratory effort and able to speak in complete sentences Auscultation: clear to auscultation bilaterally Cardio Rate: regular rate Rhythm: regular rhythm Heart sounds: Normal, physiologic split S2 sound present Peripheral pulses: radial pulses present and posterior tibial pulses present GI Inspection: No distended, Yes Abdominal panniculus present and Yes obesity Palpation (GI): Soft to palpation, nontender, no guarding, not rigid and No hepatosplenomegaly present Percussion: Yes normal to percussion Auscultation: normal bowel sounds Rectal Exam - Female: deferred Skin General skin exam: no rashes or lesions noted, turgor normal, skin not dry, no jaundice, No spider nevi and no striae Rashes: no rashes Nails: normal Neuro General: oriented to person, oriented to place and oriented to time Cranial nerves: Yes Equal, round and reactive pupils present and Yes Normal hearing present Speech: No Abnormal speech present Extrem General: Yes normal to inspection, No clubbing, No cyanosis and No edema Psych Appearance: grossly normal and well kempt Mental Status: mental status grossly normal Speech and movement: Normal speech and movement present Affect: normal affect Attitude: cooperative Thought process: Normal thought process present and not confabulating Thought content: Normal thought content present Insight: Fair insight present (Psych) Judgement: Fair judgement present (Psych) Assessment & Plan Assessment & Plan (1) Tubulovillous adenoma of large intestine: Onset Date: ~2020 Comment: (TA 2014 & TVA on 10/2020 scope - repeat 1-2 years) Code(s): D12.6 - Benign neoplasm of colon, unspecified Plan: IT APPEARS THAT SHE NEVER FOLLOWED UP IN THE OFFICE AFTER THIS COLONOSCOPY AND LIKELY IS ALREADY DUE FOR 1 YEAR REPEAT AFTER HER TUBULOVILLOUS ADENOMA. I here with her the concerns that are too physicians given her high risk for anesthesia and she is understanding about the situation. I let know that if we decide that the colonoscopy needs to go forward it likely would best be performed at [facility] since this is a tertiary center with better services for a high risk patient. First, however I think we will do a Cologuard to see if the DNA test comes back positive to see if we have time to consider getting this scheduled or whether it needs to be rushed. Her primary care provider was provided a copy of this and should be sending her for additional consultations regarding anesthesia/sedation. They also ordered the Cologuard test. The patient voices concern about an upcoming hernia surgery and I tell her that I cannot speak for what her risk is for that procedure as that would be left to between the surgeons and that teen. She suppresses the opinion that she does not want the surgery because the hernia is not that bothersome to her. Again, I leave this between her and the surgical staff. Return office visit in 6 weeks to go over Cologuard results. (2) CKD (chronic kidney disease) stage 4, GFR 15-29 ml/min: Comment: (Followed by Dr. Muhammad - [facility] [place]) Code(s): N18.4 - Chronic kidney disease, stage 4 (severe) (3) COPD (chronic obstructive pulmonary disease): Comment: PATIENT HAS LONG-STANDING HISTORY OF CHRONIC OBSTRUCTIVE PULMONARY DISEASE PRIMARILY DUE TO HER LONG TIME SMOKING. SINCE HER COVID 19 INFECTION EARLIER THIS YEAR, SHE HAS QUIT SMOKING. COPD HAS BEEN RELATIVELY MORE STABLE. TX: CONTINUE BREO-100 ONCE A DAY DUONEB UPDRAFTS Q 6 HOURS AND MAY USE UP TO 4 TIMES A DAY . I EXPLAINED TO HER THAT THE DUONEB SOLUTION IS ACUTE WILL INTO COMBIVENT MDI. Code(s): J44.9 - Chronic obstructive pulmonary disease, unspecified (4) O2 dependent: Comment: (2 L/min cont) Code(s): Z99.81 - Dependence on supplemental oxygen (5) Lung cancer: Onset Date: ~2019 Comment: (Adenocarcinoma RML Dx 02/20/2019 - s/p SBRT complete 05/19/2019) Treatment has been successful, the neoplastic nodule seems to have resolved. Last CT scan of the chest performed at [facility] in September 2020, showed that there was no residual mass. This patient has lost follow-up at [facility]. Code(s): C34.90 - Malignant neoplasm of unspecified part of unspecified bronchus or lung (6) LEO (obstructive sleep apnea): Comment: SHE HAS HAD HISTORY OF LEO/CHRONIC HYPOVENTILATION SYNDROME. SHE HAS NOT BEEN ABLE TO USE CPAP IN THE PAST. SHE HAS ALWAYS BEEN TREATED WITH OXYGEN 2 L/MINUTE AT NIGHT. Code(s): G47.33 - Obstructive sleep apnea (adult) (pediatric) Coding Level of Care Code Est Pt Level 3 (88724) Diagnoses Tubulovillous adenoma of large intestine D12.6 CKD (chronic kidney disease) stage 4, GFR 15-29 ml/min N18.4 COPD (chronic obstructive pulmonary disease) J44.9 O2 dependent Z99.81 Lung cancer C34.90 LEO (obstructive sleep apnea) G47.33
[2022-10-20 09:55] VITALS: BP 101/50; BMI 42.9
== END 2022-10-20 11:00 | disposition home or self-care (01) ==
PROVIDERS: PCP Internal Medicine; Visit Provider Nurse Practitioner
DX: D12.6 Benign neoplasm of colon, unspecified (principal); N18.4 Chronic kidney disease, stage 4 (severe); J44.9 Chronic obstructive pulmonary disease, unspecified; Z99.81 Dependence on supplemental oxygen; C34.90 Malignant neoplasm of unspecified part of unspecified bronchus or lung; G47.33 Obstructive sleep apnea (adult) (pediatric)
CPT/HCPCS: 99213

== ENCOUNTER 2022-11-04 11:48 | Outpatient (REF) | payer MEDICARE, MEDICAID, SELFPAY ==
[2022-11-04 13:05] LABS: MANUAL DIFF FLAG NO
[2022-11-04 13:18] LABS: Basophils Absolute Auto 0.1 X10*3/uL (0.0-0.2); Basophils Percent Auto 0.3 % (0-2); Hematocrit 32.4 % (37.0-47.0); Hemoglobin 9.9 g/dl (12.0-16.0); Imm Gran Abs Auto 0.18 X10*3/uL (0.00-0.03); Lymphocytes Absolute Auto 1.7 X10*3/uL (1.2-4.9); Lymphocytes Percent Auto 9.8 % (20-40); Mean Corpuscular HGB Conc 30.6 g/dl (31.0-35.0); Mean Corpuscular Hemoglobin 27.7 pg (27.0-33.0); Mean Corpuscular Volume 90.5 fL (80.0-98.0); Mean Platelet Volume 9.6 fL (9.4-12.3); Monocytes Absolute Auto 1.3 X10*3/uL (0.1-1.2); Monocytes Percent Auto 7.6 % (2-11); Neutrophils Absolute Auto 14.1 x10*3/uL (2.0-8.3); Neutrophils Percent Auto 81.3 % (45-73); Platelet Count 299 X10*3/uL (160-400); Red Blood Count 3.58 X10*6/uL (4.20-5.50); Red Cell Distribution Width 13.5 % (11.0-16.0); White Blood Count 17.4 X10*3/uL (4.8-10.8)
[2022-11-04 13:44] LABS: Appearance Urine Clear; Color Urine Yellow; Glucose Urine UA Negative (Negative); Leukocyte Esterase Urine Small (1+) (Negative); Nitrite Urine Negative (Negative); PH 5.5 (5.0-9.0); UMIC TRIGGER UA YES; Urine Blood Negative (Negative); Urine Ketones Negative (Negative); Urine Protein 30 (1+) mg/dL (Neg-Trace)
[2022-11-04 13:52] LABS: Bacteria Urine Trace (None Seen); Hyaline Casts Urine 0-2 /LPF (0-2); RBC Urine 0-2 /HPF (0-2)
[2022-11-04 14:06] LABS: Albumin Level 4.1 g/dL (3.5-5.0); Anion Gap 17 (12-20); Blood Urea Nitrogen 91 mg/dL (9-16); Calcium 10.2 mg/dL (8.4-10.2); Carbon Dioxide 33 mmol/L (22-29); Chloride 93 mmol/L (96-108); Ferritin 237 ng/mL (10-250); Magnesium 2.2 mg/dL (1.6-2.6); Phosphorus 5.2 mg/dL (2.7-4.5); Potassium 3.6 mmol/L (3.3-5.1); Sodium 139 mmol/L (135-145); Vitamin D 25-OH Total 38.4 ng/mL (>30)
[2022-11-04 14:13] LABS: Estimated Glomerular Filt Rate 7
[2022-11-04 14:32] LABS: Creatinine Urine 95.88 mg/dL; Microalbum/Creatinine Ratio Ur 107.4 ug/mg cr (<30); Protein/Creatinine Ratio, Ur 0.25 (<0.2); Total Protein Urine Random 24 mg/dL (<12)
[2022-11-05 16:19] LABS: Calcium (PTHI) 9.5 mg/dL (8.6-10.4); PTHI 994 pg/mL (16-77)
== END 2022-11-04 11:49 | disposition home or self-care (01) ==
LOC: HO.HMGCLDS 11:48
PROVIDERS: PCP Internal Medicine; Visit Provider Internal Medicine Nephrology
DX: I12.9 Hypertensive chronic kidney disease with stage 1 through stage 4 chronic kidney disease, or unspecified chronic kidney disease (principal); N18.4 Chronic kidney disease, stage 4 (severe); D63.1 Anemia in chronic kidney disease
CPT/HCPCS: 36415; 80051; 81001; 82040; 82043; 82306; 82310; 82565; 82570; 82728; 83735; 83970; 84100; 84156; 84520; 85025

== ENCOUNTER 2022-12-01 13:24 | Outpatient (AMB) | payer MEDICARE, MEDICAID, SELFPAY ==
[2022-12-01 13:25] VITALS: BP 112/63; PULSE 91; O2SAT 96; BMI 39.5
--- NOTE | 2022-12-01 13:25 | MHC.OFFVIS ---
Intake Vital Signs 12/01/22 13:25 Height 5 ft 1 in Weight 208 lb 15.971 oz BMI 39.5 BP 112/63 Blood Pressure Location Rt brachial Position Sitting Pulse 91 Pulse Source Pulse Oximeter Pulse Oximetry (%) 96 Oxygen Delivery Method Nasal Cannula Oxygen Flow Rate 2 Intake Visit Reasons: 6 week follow up Intake Note: Pt presents to the office today for a 6 week follow up. Pt states she is feeling miserable. Pt states she gets nauseous occasionally but denies vomiting or diarrhea. Allergies ciprofloxacin [From Cipro] Allergy (Severe, Verified 12/25/22 02:11) HIVES/SWELLING, THROAT CLOSES shellfish derived [SHELLFISH DERIVED] Allergy (Intermediate, Verified 12/25/22 02:11) Vomiting NSAIDS (Non-Steroidal Anti-Inflamma Adverse Reaction (Severe, Verified 12/25/22 02:11) Avoid due to kidney disease HPI 6 week follow up HPI Details Assessment & Plan (1) Tubulovillous adenoma of large intestine: Onset Date: ~2020 Comment: (TA 2015 & TVA on 10/2020 scope - repeat 1-2 years) Code(s): D12.6 - Benign neoplasm of colon, unspecified Plan: IT APPEARS THAT SHE NEVER FOLLOWED UP IN THE OFFICE AFTER THIS COLONOSCOPY AND LIKELY IS ALREADY DUE FOR 1 YEAR REPEAT AFTER HER TUBULOVILLOUS ADENOMA. I here with her the concerns that are too physicians given her high risk for anesthesia and she is understanding about the situation. I let know that if we decide that the colonoscopy needs to go forward it likely would best be performed at [facility] since this is a tertiary center with better services for a high risk patient. First, however I think we will do a Cologuard to see if the DNA test comes back positive to see if we have time to consider getting this scheduled or whether it needs to be rushed. Her primary care provider was provided a copy of this and should be sending her for additional consultations regarding anesthesia/sedation. They also ordered the Cologuard test. The patient voices concern about an upcoming hernia surgery and I tell her that I cannot speak for what her risk is for that procedure as that would be left to between the surgeons and that teen. She suppresses the opinion that she does not want the surgery because the hernia is not that bothersome to her. Again, I leave this between her and the surgical staff. Return office visit in 6 weeks to go over Cologuard results. (2) CKD (chronic kidney disease) stage 4, GFR 15-29 ml/min: Comment: (Followed by Dr. Muhammad [facility]) Code(s): N18.4 - Chronic kidney disease, stage 4 (severe) (3) COPD (chronic obstructive pulmonary disease): Comment: PATIENT HAS LONG-STANDING HISTORY OF CHRONIC OBSTRUCTIVE PULMONARY DISEASE PRIMARILY DUE TO HER LONG TIME SMOKING. SINCE HER COVID 19 INFECTION EARLIER THIS YEAR, SHE HAS QUIT SMOKING. COPD HAS BEEN RELATIVELY MORE STABLE. TX: CONTINUE BREO-100 ONCE A DAY DUONEB UPDRAFTS Q 6 HOURS AND MAY USE UP TO 4 TIMES A DAY . I EXPLAINED TO HER THAT THE DUONEB SOLUTION IS ACUTE WILL INTO COMBJEANT MDI. Code(s): J44.9 - Chronic obstructive pulmonary disease, unspecified (4) O2 dependent: Comment: (2 L/min cont) Code(s): Z99.81 - Dependence on supplemental oxygen (5) Lung cancer: Onset Date: ~2019 Comment: (Adenocarcinoma RML Dx 02/20/2019 - s/p SBRT complete 05/19/2019) Treatment has been successful, the neoplastic nodule seems to have resolved. Last CT scan of the chest performed at [facility] in September 2020, showed that there was no residual mass. This patient has lost follow-up at [facility]. Code(s): C34.90 - Malignant neoplasm of unspecified part of unspecified bronchus or lung (6) LEO (obstructive sleep apnea): Comment: SHE HAS HAD HISTORY OF LEO/CHRONIC HYPOVENTILATION SYNDROME. SHE HAS NOT BEEN ABLE TO USE CPAP IN THE PAST. SHE HAS ALWAYS BEEN TREATED WITH OXYGEN 2 L/MINUTE AT NIGHT. Code(s): G47.33 - Obstructive sleep apnea (adult) (pediatric) LABS: Cologuard resulted 10/28/2022 was negative CORRESPONDENCE IT APPEARS THAT SHE NEVER FOLLOWED UP IN THE OFFICE AFTER THIS COLONOSCOPY AND LIKELY IS ALREADY DUE FOR 1 YEAR REPEAT AFTER HER TUBULOVILLOUS ADENOMA. On 10/19/22 @ 11:40 Valerie Castano Wrote To Cinthia Jones noted , cologuard ordered On 10/19/22 @ 11:25 Berenice Hernandez Wrote To Valerie Castano (2) The I think it is better that we redirect Deirdre back to her primary care provider with the following information and have them schedule any appointments for clearance and then send us approval. Obviously she is a high risk for colon cancer with a history of a tubulovillous adenoma. In the meantime I suggest we send a Cologuard kit. On 10/15/22 @ 16:28 Faviola Alberto Wrote To Berenice Hernandez spoke with patient, she will see May 17 at 9:45am. On 10/15/22 @ 16:09 Deanna Sandoval Wrote To Faviola Alberto Not an urgent visit - can be seen by May when she returns, thanks On 10/15/22 @ 15:44 Faviola Alberto Wrote To Deanna Sandoval Berenice is not back until Wednesday, you have an opening Wednesday at 11:15, can I put her in to discuss? (obviously patient would have to agree to come in too.) On 10/15/22 @ 13:19 Deanna Sandoval Wrote To Berenice Hernandez (2) Reviewed - agreed. Should have risk vs benefit discussion in office and anesthesia pre-op consultation before proceeding. Thanks On 10/15/22 @ 12:31 Faviola Alberto Wrote To Berenice Hernandez (2) Deirdre is scheduled for colo on 10/22. Deirdre has quite the extensive PMHx. Berenice saw her 05/22/22, she did obtain pulmonary clearance - saw Dr. Cochran on 10/01 reports patient is High Risk for any surgical procedure and procedures should be done if absolutely necessary. I understand she has hx of tubulovillous . Just making sure we should proceed. TY TODAY'S VISIT We discussed that the Cologuard was negative. I also gave her clear picture of the risks versus benefits and potential for false negatives with this test. I again stressed that she is a difficult case because she has a high risk for sedation and analgesia but with a history of a tubulovillous adenoma she is also a high risk for colon cancer. However, she has a realistic few that given her co morbid conditions of chronic kidney disease stage 4, a history of respiratory failure with severe COPD,. A seizure history, and a history of lung cancer her 10 year survival rate is difficult to predict. Right now she is busy dealing with her renal status as it is likely she will need a fistula and to begin hemodialysis. She would like to put off any decisions about a procedure until this situation is stable. I certainly can understand this. If she does decide to go forward with the procedure she likely needs to have it at [facility] due to her complexity. I offered to have her follow-up with me in 6 months to year to see what she is thinking than but she declines for now and says she will call us when she is ready. She is here today with a family member who is supportive. [facility] Medical History JOAN (acute kidney injury) Respiratory failure with hypoxia and hypercapnia Acute exacerbation of chronic obstructive pulmonary disease Tremor of both hands Ambulates with cane Seasonal allergies Herpes zoster Post covid-19 condition, unspecified COPD (chronic obstructive pulmonary disease) Osteopenia (~2017) Obesity Respiratory failure COVID-19 (~03/2021) Osteoarthritis of ankles, bilateral Olecranon bursitis of left elbow Tubulovillous adenoma of large intestine (~2020) Hx of cardiac arrest (~2015) O2 dependent Methadone maintenance therapy patient History of claustrophobia History of seizure Anxiety and depression HTN (hypertension) Multiple fractures of ribs Anemia in chronic kidney disease Vitamin D deficiency Family history of colon cancer CKD (chronic kidney disease) stage 4, GFR 15-29 ml/min Dyslipidemia Restrictive lung disease Lung cancer (~2019) LEO (obstructive sleep apnea) Surgical History Hx of tracheostomy History of esophagogastroduodenoscopy (EGD) (~2021) History of removal of ureteral stent (~2013) History of lung biopsy (~2019) History of colonoscopy (~2020) Umbilical hernia History of laparoscopy (~2012) History of hand surgery History of tubal ligation Family History Father Diabetes mellitus Mother Depression Mental health disorder Maternal Grandfather Colon cancer Sister No problems noted. Son No problems noted. Daughter No problems noted. Daughter No problems noted. Social History Household Members: Unknown / Unable to assess Housing: House Housing Other:: mobile home Are you a primary managed care liaison to a significant other at home: No Do you presently have visiting nurse or other home services: Yes ([facility] daily) Unable to assess alcohol history related to: Unable to respond Alcohol intake: never Comment: restraints Patient Tobacco Use Status: Former Tobacco user Quit Date: 2006 Tobacco use type: Cigarette Years Smoked: 25 yrs e-Cigarette/Vaping Use: Never Used Substance Use Type: Former Substance User and Heroin Advance Directives Date on File: 03/21/21 service: No Current occupational status: unemployed and disabled Cognitive needs: No Hearing needs: No Vision needs: No Review of Systems Const Denies fatigue, Denies fever(s), Denies night sweats, Denies poor appetite and Denies weight loss Eyes Details: glasses Reports requires corrective lenses ENT Reports Normal hearing present, Denies dental pain, Denies dysphagia, Denies hearing loss, Denies mouth pain, Denies odynophagia, Denies throat swelling, Denies tongue swelling and Reports other (Dentition adequate) Card Reports no additional complaints and Reports dyspnea on exertion Resp Reports dyspnea on exertion GI Denies abdominal pain, Denies melena, Denies bloating, Denies hematochezia, Denies constipation, Denies GI cramping, Denies dysphagia, Denies excessive flatus, Denies early satiety, Denies heartburn, Denies diarrhea, Denies nausea, Denies odynophagia, Denies vomiting and Denies hematemesis Skin/Breast Denies pruritus, Denies lesions, Denies rash and Denies jaundice Neuro Reports Normal hearing present and Denies Abnormal speech present Endo Denies fatigue Aller/Immun Denies throat swelling and Denies tongue swelling Physical Exam Vital Signs: Last Vital Signs Pulse 91 12/01/22 13:25 BP 112/63 12/01/22 13:25 Pulse Ox 96 12/01/22 13:25 Oxygen Delivery Method Nasal Cannula 12/01/22 13:25 Oxygen Flow Rate 2 12/01/22 13:25 BMI result Body Mass Index 39.5 Const General: cooperative, no acute distress, well developed and well groomed Nutritional Appearance: well nourished and obese Orientation/consciousness: oriented to person, oriented to place and oriented to time Limitations: No language barrier and wheelchair HEENT Head: Yes normocephalic and Yes atraumatic Eyes General: appearance normal, both eyes and all related structures Pupils: Equal, round and reactive pupils present Neck Neck: Yes normal visual inspection and Yes no lymphadenopathy Thyroid: Thyroid normal Resp Effort & Inspection: normal respiratory effort and able to speak in complete sentences Auscultation: clear to auscultation bilaterally Cardio Rate: regular rate Rhythm: regular rhythm Heart sounds: Normal, physiologic split S2 sound present Peripheral pulses: radial pulses present and posterior tibial pulses present GI Inspection: No distended, Yes Abdominal panniculus present and Yes obesity Palpation (GI): Soft to palpation, nontender, no guarding, not rigid, No hepatosplenomegaly present and Hepatosplenomegaly present Percussion: Yes normal to percussion Auscultation: normal bowel sounds Rectal Exam - Female: deferred Skin General skin exam: no rashes or lesions noted, turgor normal, skin not dry, no jaundice, No spider nevi and no striae Rashes: no rashes Nails: normal Neuro General: oriented to person, oriented to place and oriented to time Cranial nerves: Yes Equal, round and reactive pupils present and Yes Normal hearing present Speech: No Abnormal speech present Extrem General: Yes normal to inspection, No clubbing, No cyanosis and No edema Psych Appearance: grossly normal and well kempt Mental Status: mental status grossly normal Speech and movement: Normal speech and movement present Affect: normal affect Attitude: cooperative Thought process: Normal thought process present and not confabulating Thought content: Normal thought content present Insight: Fair insight present (Psych) Judgement: Fair judgement present (Psych) Results Reviewed Results Reviewed: LABS: Cologuard resulted 10/28/2022 was negative Assessment & Plan Assessment & Plan (1) Tubulovillous adenoma of large intestine: Onset Date: ~2020 Comment: (TA 2015 & TVA on 10/2020 scope - repeat 1-2 years)co morbid conditions of chronic kidney disease stage 4, a history of respiratory failure with severe COPD,. A seizure history, and a history of lung cancer her 10 year survival rate is difficult to predict. If she does decide to go forward with the procedure she likely needs to have it at [facility] due to her complexity Cologuard resulted 10/28/2022 was negative Code(s): D12.6 - Benign neoplasm of colon, unspecified (2) CKD (chronic kidney disease) stage 4, GFR 15-29 ml/min: Comment: (Followed by Dr. Muhammad - [facility] [place]) Code(s): N18.4 - Chronic kidney disease, stage 4 (severe) (3) COPD (chronic obstructive pulmonary disease): Comment: PATIENT HAS LONG-STANDING HISTORY OF CHRONIC OBSTRUCTIVE PULMONARY DISEASE PRIMARILY DUE TO HER LONG TIME SMOKING, BUT QUIT EARLIER THIS YEAR. TX: UNDER COPD EXACERBATION Code(s): J44.9 - Chronic obstructive pulmonary disease, unspecified (4) Methadone maintenance therapy patient: Code(s): F11.20 - Opioid dependence, uncomplicated (5) Lung cancer: Onset Date: ~2019 Comment: (Adenocarcinoma RML Dx 02/20/2019 - s/p SBRT complete 05/19/2019) Treatment has been successful, the neoplastic nodule seems to have resolved. Last CT scan of the chest performed at [facility] in September 2020, showed that there was no residual mass. This patient has lost follow-up at [facility]. Code(s): C34.90 - Malignant neoplasm of unspecified part of unspecified bronchus or lung (6) Restrictive lung disease: Comment: SHE HAS SIGNIFICANT DEGREE OF RESTRICTIVE PULMONARY DISORDER, PRIMARILY DUE TO MORBID OBESITY. ADVISE THAT SHE SHOULD CONTINUE TO DO DEEP BREATHING EXERCISES BEFORE. Code(s): J98.4 - Other disorders of lung (7) LEO (obstructive sleep apnea): Comment: SHE HAS HAD HISTORY OF LEO/CHRONIC HYPOVENTILATION SYNDROME. She had stopped using the CPAP. Now when she was in the hospital BiPAP treatment at nighttime was tried but she was not able to tolerate the BiPAP at all. Code(s): G47.33 - Obstructive sleep apnea (adult) (pediatric) Plan We discussed that the Cologuard was negative. I also gave her clear picture of the risks versus benefits and potential for false negatives with this test. I again stressed that she is a difficult case because she has a high risk for sedation and analgesia but with a history of a tubulovillous adenoma she is also a high risk for colon cancer. However, she has a realistic few that given her co morbid conditions of chronic kidney disease stage 4, a history of respiratory failure with severe COPD,. A seizure history, and a history of lung cancer her 10 year survival rate is difficult to predict. Right now she is busy dealing with her renal status as it is likely she will need a fistula and to begin hemodialysis. She would like to put off any decisions about a procedure until this situation is stable. I certainly can understand this. If she does decide to go forward with the procedure she likely needs to have it at [facility] due to her complexity. I offered to have her follow-up with me in 6 months to year to see what she is thinking than but she declines for now and says she will call us when she is ready. She is here today with a family member who is supportive. Coding Level of Care Code Est Pt Level 3 (26019) Diagnoses Tubulovillous adenoma of large intestine D12.6 CKD (chronic kidney disease) stage 4, GFR 15-29 ml/min N18.4 COPD (chronic obstructive pulmonary disease) J44.9 Methadone maintenance therapy patient F11.20 Lung cancer C34.90 Restrictive lung disease J98.4 LEO (obstructive sleep apnea) G47.33
== END 2022-12-01 13:57 | disposition home or self-care (01) ==
PROVIDERS: PCP Internal Medicine; Visit Provider Nurse Practitioner
DX: D12.6 Benign neoplasm of colon, unspecified (principal); N18.4 Chronic kidney disease, stage 4 (severe); J44.9 Chronic obstructive pulmonary disease, unspecified; F11.20 Opioid dependence, uncomplicated; C34.90 Malignant neoplasm of unspecified part of unspecified bronchus or lung; J98.4 Other disorders of lung; G47.33 Obstructive sleep apnea (adult) (pediatric)
CPT/HCPCS: 99213

== ENCOUNTER → 2022-12-01 13:24 | Outpatient (BNVA) | payer MEDICARE, MEDICAID, SELFPAY | PROVIDERS: PCP Internal Medicine; Visit Provider Nurse Practitioner | DX: D12.6 Benign neoplasm of colon, unspecified (principal); N18.4 Chronic kidney disease, stage 4 (severe); J44.9 Chronic obstructive pulmonary disease, unspecified; C34.90 Malignant neoplasm of unspecified part of unspecified bronchus or lung; G47.33 Obstructive sleep apnea (adult) (pediatric); F11.20 Opioid dependence, uncomplicated; Z99.81 Dependence on supplemental oxygen | CPT/HCPCS: 99212 ==

== ENCOUNTER 2022-12-01 14:22 | Outpatient (REF) | payer MEDICARE, MEDICAID, SELFPAY ==
[2022-12-01 16:19] LABS: MANUAL DIFF FLAG NO
[2022-12-01 16:45] LABS: Basophils Absolute Auto 0.1 X10*3/uL (0.0-0.2); Basophils Percent Auto 0.6 % (0-2); Eosinophils Absolute Auto 0.5 X10*3/uL (0.0-0.4); Eosinophils Percent Auto 5.4 % (0-4); Hematocrit 31.8 % (37.0-47.0); Hemoglobin 9.2 g/dl (12.0-16.0); Lymphocytes Absolute Auto 1.6 X10*3/uL (1.2-4.9); Lymphocytes Percent Auto 15.8 % (20-40); Mean Corpuscular HGB Conc 28.9 g/dl (31.0-35.0); Mean Corpuscular Hemoglobin 27.7 pg (27.0-33.0); Mean Corpuscular Volume 95.8 fL (80.0-98.0); Mean Platelet Volume 9.5 fL (9.4-12.3); Monocytes Absolute Auto 1.3 X10*3/uL (0.1-1.2); Monocytes Percent Auto 12.8 % (2-11); Neutrophils Absolute Auto 6.5 x10*3/uL (2.0-8.3); Neutrophils Percent Auto 64.4 % (45-73); Platelet Count 329 X10*3/uL (160-400); Red Blood Count 3.32 X10*6/uL (4.20-5.50); White Blood Count 10.1 X10*3/uL (4.8-10.8)
[2022-12-01 16:55] LABS: Anion Gap 17 (12-20); Blood Urea Nitrogen 50 mg/dL (9-16); Calcium 10.2 mg/dL (8.4-10.2); Carbon Dioxide 29 mmol/L (22-29); Chloride 105 mmol/L (96-108); Estimated Glomerular Filt Rate 12; Phosphorus 3.6 mg/dL (2.7-4.5); Potassium 4.5 mmol/L (3.3-5.1); Sodium 146 mmol/L (135-145)
[2022-12-01 18:50] LABS: Renal w Reflex Lab Use Only Order verified
== END 2022-12-01 14:23 | disposition home or self-care (01) ==
LOC: HO.HMGCLDS 14:22
PROVIDERS: PCP Internal Medicine; Visit Provider Internal Medicine
DX: N18.4 Chronic kidney disease, stage 4 (severe) (principal)
CPT/HCPCS: 36415; 80051; 82310; 82565; 84100; 84520; 85025

== ENCOUNTER 2022-12-09 16:01 | Outpatient (AMB) | payer MEDICARE, MEDICAID, SELFPAY ==
--- NOTE | 2022-12-09 16:08 | HO.NEPHOV_ITS ---
HPI HPI Comments History of Present Illness Details 62 years old female with advanced chroni c obstructive pulmonary disease and chronic respiratory failure, on oxygen, and treated for acute exacerbation of COPD/respiratory failure, was able to normalize blood gases with aggressive treatment. She has advanced CKD approaching end stage renal disease. She has significant fluid overload requiring high-dose of diuretics. She is here for further follow-up. She continues her shortness of breath. [facility] Medical History JOAN (acute kidney injury) Respiratory failure with hypoxia and hypercapnia Acute exacerbation of chronic obstructive pulmonary disease Tremor of both hands Ambulates with cane Seasonal allergies Herpes zoster Post covid-19 condition, unspecified COPD (chronic obstructive pulmonary disease) Osteopenia (~2017) Obesity Respiratory failure COVID-19 (~03/2021) Osteoarthritis of ankles, bilateral Olecranon bursitis of left elbow Tubulovillous adenoma of large intestine (~2020) Hx of cardiac arrest (~2015) O2 dependent Methadone maintenance therapy patient History of claustrophobia History of seizure Anxiety and depression HTN (hypertension) Multiple fractures of ribs Anemia in chronic kidney disease Vitamin D deficiency Family history of colon cancer CKD (chronic kidney disease) stage 4, GFR 15-29 ml/min Dyslipidemia Restrictive lung disease Lung cancer (~2019) LEO (obstructive sleep apnea) Surgical History Hx of tracheostomy History of esophagogastroduodenoscopy (EGD) (~2021) History of removal of ureteral stent (~2013) History of lung biopsy (~2019) History of colonoscopy (~2020) Umbilical hernia History of laparoscopy (~2012) History of hand surgery History of tubal ligation Family History Father Diabetes mellitus Mother Depression Mental health disorder Maternal Grandfather Colon cancer Sister No problems noted. Son No problems noted. Daughter No problems noted. Daughter No problems noted. Social History Household Members: Unknown / Unable to assess Housing: House Housing Other:: mobile home Are you a primary urgent care physician assistant to a significant other at home: No Do you presently have visiting nurse or other home services: Yes ([facility] daily) Unable to assess alcohol history related to: Unable to respond Alcohol intake: never Comment: restraints Patient Tobacco Use Status: Former Tobacco user Quit Date: 2006 Tobacco use type: Cigarette Years Smoked: 25 yrs e-Cigarette/Vaping Use: Never Used Substance Use Type: Former Substance User and Heroin Advance Directives Date on File: 03/21/21 service: No Current occupational status: unemployed and disabled Cognitive needs: No Hearing needs: No Vision needs: No Vital Signs 12/09/22 16:12 Height 5 ft 1 in BMI Reason not done Patient refused/unable BP 126/70 Blood Pressure Location Rt popliteal Pulse 76 Pulse Oximetry (%) 97 Oxygen Delivery Method Nasal Cannula Physical Exam Vital Signs: Last Vital Signs Pulse 76 12/09/22 16:12 BP 126/70 12/09/22 16:12 Pulse Ox 97 12/09/22 16:12 Oxygen Delivery Method Nasal Cannula 12/09/22 16:12 Const Nutritional Appearance: well nourished Orientation/consciousness: patient oriented x3 HEENT Head: No normal to inspection Mouth: moist mucous membranes Neck Neck: Yes supple and Yes no JVD Resp Auscultation: clear to auscultation bilaterally and no rales Cardio Jugular venous distension: no JVD Palpation: no palpable S3 and no palpable S4 Heart sounds: no rubs GI Palpation (GI): Soft to palpation and nontender Percussion: No Fluid wave present General: Yes no CVA tenderness Back/Spine/Pelvis Back: no CVA tenderness Skin General skin exam: no rashes or lesions noted Neuro General: patient oriented x3 Extrem General: No clubbing Results Reviewed Results Reviewed: All labs last reviewed hemoglobin 10.8 creatinine 3.88 Assessment & Plan Assessment & Plan (1) CKD (chronic kidney disease) stage 5, GFR less than 15 ml/min: Code(s): N18.5 - Chronic kidney disease, stage 5 Plan: Advanced CKD approaching end stage renal disease. No overt signs or symptoms of uremia. Goal is to slow the portion renal disease. We will continue to watch renal function closely and initiate dialysis when appropriate. (2) Anemia in chronic kidney disease: Code(s): N18.9 - Chronic kidney disease, unspecified; D63.1 - Anemia in chronic kidney disease Plan: No absolute indication to start erythropoietin yet. I will follow the hemoglobin along with iron stores and start on Neupogen as needed. (3) Acute exacerbation of chronic obstructive pulmonary disease: Code(s): J44.1 - Chronic obstructive pulmonary disease with (acute) exacerbation Plan: Management per PCP Continue DuoNeb updrafts q.i.d. and Breo-100 1 inhalation daily. Prednisone 20 mg b.i.d. for 7 days. Mucinex 600 mg b.i.d. also prescribed. Orders: Orders AMB Prednisone Adult Dose 12/09/22 J44.1 - Chronic obstructive pulmonary disease with (acute) exacerbation, N18.5 - Chronic kidney disease, stage 5, N18.9 - Chronic kidney disease, unspecified, D63.1 - Anemia in chronic kidney disease Electrolytes 1 Month N18.5 - Chronic kidney disease, stage 5, N18.9 - Chronic kidney disease, unspecified, D63.1 - Anemia in chronic kidney disease Blood Urea Nitrogen 1 Month N18.5 - Chronic kidney disease, stage 5, N18.9 - Chronic kidney disease, unspecified, D63.1 - Anemia in chronic kidney disease Calcium 1 Month N18.5 - Chronic kidney disease, stage 5, N18.9 - Chronic kidney disease, unspecified, D63.1 - Anemia in chronic kidney disease PTHI 12/09/22 N18.5 - Chronic kidney disease, stage 5, N18.9 - Chronic kidney disease, unspecified, D63.1 - Anemia in chronic kidney disease Creatinine 1 Month N18.5 - Chronic kidney disease, stage 5, N18.9 - Chronic kidney disease, unspecified, D63.1 - Anemia in chronic kidney disease Medications: New prednisone END DATE: 12/20/22 10 mg PO DAILY 10 tabs 0RF prednisone 10 mg (1/2 x 20 mg) PO DAILY 7 tabs 0RF J44.1 - Chronic obstructive pulmonary disease with (acute) exacerbation, N18.5 - Chronic kidney disease, stage 5, N18.9 - Chronic kidney disease, unspecified, D63.1 - Anemia in chronic kidney disease Coding Level of Care Code Est Pt Level 4 (93507) Diagnoses CKD (chronic kidney disease) stage 5, GFR less than 15 ml/min N18.5 Anemia in chronic kidney disease N18.9; D63.1 Acute exacerbation of chronic obstructive pulmonary disease J44.1
[2022-12-09 16:12] VITALS: BP 126/70; PULSE 76; O2SAT 97
== END 2022-12-09 16:30 | disposition home or self-care (01) ==
PROVIDERS: PCP Internal Medicine; Visit Provider Internal Medicine Hypertension Specialist
DX: N18.5 Chronic kidney disease, stage 5 (principal); N18.9 Chronic kidney disease, unspecified; D63.1 Anemia in chronic kidney disease; J44.1 Chronic obstructive pulmonary disease with (acute) exacerbation
CPT/HCPCS: 99214

== ENCOUNTER → 2022-12-09 16:01 | Outpatient (BNVA) | payer MEDICARE, MEDICAID, SELFPAY | PROVIDERS: PCP Internal Medicine; Visit Provider Internal Medicine Hypertension Specialist | DX: N18.5 Chronic kidney disease, stage 5 (principal); D63.1 Anemia in chronic kidney disease; J44.1 Chronic obstructive pulmonary disease with (acute) exacerbation | CPT/HCPCS: 99212 ==

== ENCOUNTER 2022-12-12 19:14 | Inpatient (IN) | payer MEDICARE, MEDICAID, SELFPAY ==
[2022-12-12] VITALS (8 sets, daily range): BP systolic 75–168; BP diastolic 43–81; PULSE 87–153; RESP 9–17; TEMP 35.2–36.7; O2SAT 95–100; BMI 39.7
--- NOTE | 2022-12-12 | ECG_ITS ---
Test Reason : SOB Blood Pressure : / mmHG Vent. Rate : 101 BPM Atrial Rate : 101 BPM P-R Int : 180 ms QRS Dur : 096 ms QT Int : 342 ms P-R-T Axes : 071 059 039 degrees QTc Int : 443 ms Sinus tachycardia RSR' or QR pattern in V1 suggests right ventricular conduction delay Nonspecific ST abnormality Abnormal ECG When compared with ECG of 19-JUL-2022 10:08, Premature ventricular complexes are no longer Present Referred By: Generic ED Physician Electronically Signed By:MUMTAZ DAVIES MD
--- NOTE | ~2022-12-12 | XR_ITS ---
EXAMINATION: XR CHEST CLINICAL INFORMATION: Intubation placement. COMPARISON: Prior chest x-ray 10/20/2022 TECHNIQUE: AP upright portable view of the chest was obtained. FINDINGS: Endotracheal tube in place with tip approximately 2 cm above oswaldo. Enteric tube noted with the distal tip below the EG junction but obscured by additional overlying wires/tubes Cardiac mediastinal silhouette normal except for some calcification of the dorsal aorta. Linear opacity in the right infrahilar region similar to prior compatible with atelectasis or scarring. Lungs otherwise clear. Bone and soft tissues unremarkable.. XR/XR chest 1V IMPRESSION: 1. Endotracheal tube 2 cm above oswaldo. 2. Enteric tube noted with distal tip below the EG junction but obscured by additional overlying wires/tubes. 3. Right infrahilar atelectasis or scarring similar to prior.
--- NOTE | ~2022-12-12 | XR_ITS ---
EXAMINATION: XR CHEST CLINICAL INFORMATION: Shortness of breath COMPARISON: Previous chest x-ray from yesterday and chest CT from earlier the same day TECHNIQUE: Frontal view of the chest was obtained. FINDINGS: The endotracheal tube and nasogastric tube are no longer seen. The cardiac and mediastinal contours are stable. There are coarse lung markings with atelectasis or small infiltrates in the lung right midlung and bilateral lung bases. Appears similar to previous exams. There is no pleural effusion or pneumothorax. There are recent appearing right posterior sixth and seventh rib fractures. XR/XR chest 1V IMPRESSION: Endotracheal tube and nasogastric tube no longer seen. Otherwise stable chest x-ray.
--- NOTE | ~2022-12-12 | XR_ITS ---
EXAMINATION: XR CHEST CLINICAL INFORMATION: Hypoxia. COMPARISON: 12/13/2022. TECHNIQUE: Frontal view of the chest was obtained. FINDINGS: The cardiomediastinal silhouette is stable. Right midlung field atelectasis and/or scarring is again seen. The lungs are otherwise clear. There are no significant pleural effusions. The bony structures and soft tissues are unremarkable. XR/XR chest 1V IMPRESSION: Right midlung field atelectasis and/or scarring similar to previous. No evidence for active cardiopulmonary disease. No significant change.
--- NOTE | ~2022-12-12 | CT_ITS ---
EXAMINATION: CT CHEST WITHOUT CONTRAST CLINICAL INFORMATION: Hypoxia. COMPARISON: 03/19/2021 TECHNIQUE: Multidetector volumetric CT imaging of the chest was done. Axial MIP volume rendering provided. Sagittal and coronal reformatted images were obtained. This CT examination was performed using dose optimization techniques as appropriate, variously including the following: *Automated exposure control *Adjustment of mA and/or kV according to patient size (this includes techniques or standardized protocols for targeted exams where dose is matched to indication/reason for exam; i.e. extremities or head) *Use of iterative reconstruction technique DLP: 402 mGy-cm FINDINGS: HAT BLOCK MAKER: The patient is intubated. A gastric tube is in place. There are basilar opacities. LUNGS: There is diffuse emphysematous change most pronounced in the upper lobes. There are bilateral linear and dependent lung base opacities. There is an endotracheal tube in good position above the oswaldo. MEDIASTINUM: The heart is mildly enlarged. There is no pericardial effusion. There is no significant lymphadenopathy. A gastric tube extends below the diaphragm into the upper abdomen. CORONARY ARTERY CALCIFICATION: Mild to moderate PLEURA: There is no pleural effusion. No pleural mass or thickening. AXILLA: No lymphadenopathy. UPPER ABDOMEN: Unremarkable. OSSEOUS STRUCTURES: There is diffuse [id number] thoracolumbar disc degenerative change. CT/CT chest wo IV con IMPRESSION: Linear and independent lung base opacities most consistent with atelectasis. Endotracheal and gastric tubes in place. Diffuse emphysema. Fleischner guidelines were followed.
--- NOTE | 2022-12-12 19:53 | ED_ITS ---
HPI - General Adult General Chief complaint: Dyspnea Stated complaint: SOB, anxiety Time Seen by Provider: 12/12/22 19:53 Source: patient and EMS Mode of arrival: EMS Limitations: no limitations History of Present Illness HPI narrative: Patient is a 62 year old assigned female at with a history of COPD, stage 1 lung cancer, CKD, and anxiety presenting to the emergency department today with increased shortness of breath. Patient states that she has had gradual worsening of shortness of breath, she has been around sick contacts, and now she is concerned she has pneumonia. Patient denies any dizziness, lightheadedness, abdominal pain, nausea, vomiting, fever, chills, blurry vision, double vision, loss of vision, chest pain, back pain, night sweats, pain with urination, increased urinary frequency, increased urinary urgency, blood in her urine or stool, syncope or a near syncopal episode, recent trauma or falls, bowel incontinence, bladder incontinence, bowel retention, bladder retention, or any other complaints at this time. Onset (ago): day(s) Severity: severe Severity scale (1-10): 7 Relieving factors: none Exacerbating factors: none Associated symptoms: shortness of breath Treatments prior to arrival: none Related Data Home Medications Medication Instructions Recorded Confirmed acetaminophen 325 mg tablet 650 mg PO Q6H PRN Pain 07/24/21 10/20/22 albuterol sulfate 2.5 mg/3 mL 3 ml inhalation Q4H PRN Shortness 07/24/21 10/20/22 (0.083 %) solution for nebulization Of Breath calcitriol 0.25 mcg capsule 0.25 mcg PO DAILY 12/17/21 10/20/22 torsemide 20 mg tablet 40 mg PO BID 12/17/21 10/20/22 buspirone 5 mg tablet 5 mg PO BID 05/22/22 10/20/22 methadone 10 mg/mL oral concentrate 40 mg PO DAILY 05/22/22 10/20/22 fluticasone propionate 50 1 spray intranasal DAILY 10/01/22 10/20/22 mcg/actuation nasal spray,suspension Previous Rx's Medication Instructions Recorded aspirin 81 mg tablet,delayed 81 mg PO DAILY #30 tabs 12/11/19 release clonazepam 1 mg tablet 1 mg PO Q4H PRN anxiety #8 tabs 09/06/21 hydroxyzine HCl 50 mg tablet 50 mg PO BEDTIME PRN anxiety #7 09/06/21 tabs diltiazem HCl 120 mg 120 mg PO DAILY #30 caps 03/24/22 capsule,extended release 24 hr Breo Ellipta 100 mcg-25 mcg/dose 1 ea PO DAILY copd 90 days #3 ea 04/10/22 powder for inhalation (fluticasone furoate-vilanterol) carvedilol 3.125 mg tablet 3.125 mg PO BID #180 tabs 04/24/22 gabapentin 100 mg capsule 100 mg PO BID #60 caps 09/08/22 ipratropium 0.5 mg-albuterol 3 mg 3 ml inhalation Q4-6H PRN 10/15/22 (2.5 mg base)/3 mL nebulization shortness of breath or wheezing soln #180 mL guaifenesin 600 mg tablet, 600 mg PO BID copd/Mucus 30 days 10/27/22 extended release 12 hr (Mucinex) #60 tabs prednisone 10 mg tablet 10 mg PO DAILY #10 tabs 12/10/22 Allergies Allergy/AdvReac Type Severity Reaction Status Date / Time ciprofloxacin [From Cipro] Allergy Severe HIVES/SWELLING, Verified 12/09/22 16:09 THROAT CLOSES shellfish derived Allergy Intermediate Vomiting Verified 12/09/22 16:09 [SHELLFISH DERIVED] NSAIDS (Non-Steroidal AdvReac Severe Avoid due Verified 12/09/22 16:09 Anti-Inflamma to kidney disease Review of Systems 2 Constitutional: Constitutional: Reports no additional constitutional complaints, Denies chills, Denies fever(s) and Denies night sweats Eyes: Eyes: Reports no additional eye complaints, Denies blurry vision, Denies change in vision, Denies diplopia, Denies eye discharge, Denies loss of vision and Denies eye pain ENT: Denies dizziness Cardiovascular: Cardiovascular: Reports no additional cardiovascular complaints, Denies chest pain, Denies lightheadedness, Denies Loss of Consciousness and Reports dyspnea Respiratory: Respiratory: Reports no additional respiratory complaints and Reports dyspnea Gastrointestinal: Gastrointestinal: Reports no additional gastrointestinal complaints, Denies abdominal pain, Denies melena, Denies hematochezia, Denies change in bowel habits and Denies change in stool character Genitourinary: Genitourinary: Denies hematuria, Denies urinary frequency, Denies dysuria, Denies urinary incontinence, Denies urinary hesitancy and Denies urinary urgency Musculoskeletal: Musculoskeletal: Reports no additional musculoskeletal complaints, Denies numbness and Denies tingling Neurologic: Denies dizziness, Denies loss of vision, Denies numbness and Denies tingling Psychiatric: Psychiatric: Reports no additional psychiatric complaints Endocrine: Endocrine: Reports no additional endocrine complaints Hematologic/Lymphatic: Hematologic/Lymphatic: Reports no additional hematologic/lymphatic complaints Allergic/Immunologic: Allergic/Immunologic: Reports no additional allergic/immunologic complaints [facility] Past Medical History Attestation statement: The following information was validated with the patient. Source: old records reviewed and nursing notes reviewed Medical History Acute exacerbation of chronic obstructive pulmonary disease Tremor of both hands Ambulates with cane Seasonal allergies Herpes zoster Post covid-19 condition, unspecified COPD (chronic obstructive pulmonary disease) Osteopenia (~2017) Obesity Respiratory failure COVID-19 (~03/2021) Osteoarthritis of ankles, bilateral Olecranon bursitis of left elbow Tubulovillous adenoma of large intestine (~2020) Hx of cardiac arrest (~2015) O2 dependent Methadone maintenance therapy patient History of claustrophobia History of seizure Anxiety and depression HTN (hypertension) Multiple fractures of ribs Anemia in chronic kidney disease Vitamin D deficiency Family history of colon cancer CKD (chronic kidney disease) stage 4, GFR 15-29 ml/min Dyslipidemia Restrictive lung disease Lung cancer (~2019) LEO (obstructive sleep apnea) Surgical History Hx of tracheostomy History of esophagogastroduodenoscopy (EGD) (~2021) History of removal of ureteral stent (~2013) History of lung biopsy (~2019) History of colonoscopy (~2020) Umbilical hernia History of laparoscopy (~2012) History of hand surgery History of tubal ligation Family History Family History Father Diabetes mellitus Mother Depression Mental health disorder Maternal Grandfather Colon cancer Sister No problems noted. Son No problems noted. Daughter No problems noted. Daughter No problems noted. Social History Social History Household Members: Significant Other Housing: Other Housing Other:: mobile home Are you a primary healthcare insurance sales agent to a significant other at home: No Do you presently have visiting nurse or other home services: Yes ([facility] daily) Unable to assess alcohol history related to: Unable to respond Alcohol intake: never Patient Tobacco Use Status: Former Tobacco user Quit Date: 2006 Tobacco use type: Cigarette Years Smoked: 25 yrs Smoked in Last 30 Days: No e-Cigarette/Vaping Use: Never Used Substance Use Type: Former Substance User and Heroin Advance Directives: Yes Advance Directives on File: Yes Advance Directives Date on File: 03/21/21 service: No Current occupational status: unemployed and disabled Cognitive needs: No Hearing needs: No Vision needs: No Physical Exam ED Vital Signs: Vital Signs - 24 hr 12/12/22 19:22 12/12/22 19:44 12/12/22 20:51 Temperature 97.8 F 98.1 F Pulse Rate 104 H 98 153 H Respiratory Rate 17 16 9 L Blood Pressure 160/76 H 160/76 H 140/49 H Pulse Oximetry 95 96 98 Oxygen Delivery Method Nasal Cannula Nasal Cannula Oxygen Flow Rate 2 Fraction of Inspired Oxygen 12/12/22 21:16 Temperature Pulse Rate Respiratory Rate Blood Pressure Pulse Oximetry Oxygen Delivery Method Oxygen Flow Rate Fraction of Inspired Oxygen 70 BMI result Body Mass Index 39.7 Const General: cooperative, no acute distress, alert and awake Nutritional Appearance: well nourished Orientation/consciousness: patient oriented x3 Limitations: no limitations HENMT Head: Yes normal to inspection and Yes atraumatic Ears: hearing grossly normal bilaterally and external ears normal General nose exam: Normal external nose present, no nasal discharge noted and no epistaxis Face and sinus: Yes normal facial exam, No abrasion and No laceration Mouth: Normal oral and palatal mucosa present, no drooling and no muffled voice Eyes General: appearance normal, both eyes and all related structures Periorbital: periorbital findings normal Eyelids: Yes eyelids normal Conjunctivae: conjunctivae normal Pupils: Equal, round and reactive pupils present EOM: EOMs intact bilaterally Neck Neck: Yes normal visual inspection, Yes full ROM and Yes no lymphadenopathy Chest Chest palpation & inspection: normal inspection of the chest Resp Effort & Inspection: able to speak in complete sentences and labored Auscultation: wheezes scattered wheezes GI Inspection: Yes normal to inspection Neuro General: patient oriented x3 and moves all extremities Cranial nerves: Yes Equal, round and reactive pupils present Cognition (Neuro): normal cognition Motor exam (neuro): 5/5 motor strength present throughout Sensory Exam: Normal double simultaneous stimulation for sensation Coordination: [id number] test normal Extrem General: Yes normal to inspection, Yes full ROM and Yes capillary refill normal Psych Appearance: grossly normal Mental Status: mental status grossly normal Affect: normal affect Attitude: cooperative Thought process: Normal thought process present Thought content: Normal thought content present Insight: Good insight present (Psych) Course Reevaluation(s) Reevaluation #1: 2034 - Patient acutely decompensated. Dr. Langford made aware. Together, Dr. Langford and I intubated the patient. Medications Administered Generic Name Dose Route Start Last Admin Trade Name Freq PRN Reason Stop Dose Admin Albuterol/Ipratropium 3 ml 12/13/22 08:00 12/13/22 00:57 Albuterol/Iprat 2.5/0.5mg 3 Ml Ampul.Neb INHALE 3 ml RQ4H WHILE AWAKE ANALISA Administration Chlorhexidine Gluconate 15 ml 12/12/22 22:00 12/12/22 23:49 Chlorhexidine Gluc Oral Rinse 15 Ml Mouthwash BUCCAL 15 ml Q8H ANALISA Administration Heparin Sodium (Porcine) 5,000 unit 12/12/22 23:30 12/13/22 00:30 Heparin Sodium,Porcine 5,000 Unit/Ml Vial SUBCUT 5,000 unit Q8H ANALISA Administration Propofol 1,000 mg in 100 mls @ 0 mls/hr 12/12/22 20:45 12/13/22 00:46 Diprivan IVCONT 40 mcg/kg/min .Q0M ANALISA 22.86 mls/hr Administration Protocol Per Protocol Norepinephrine Bitartrate 8 mg in 250 mls @ 0 mls/hr 12/12/22 22:15 12/12/22 22:21 Levophed IV 0.05 mcg/kg/min .Q0M ANALISA 8.93 mls/hr Administration Protocol Per Protocol Piperacillin Sod/Tazobactam 50 mls @ 100 mls/hr 12/12/22 23:00 12/13/22 00:30 Sod 2.25 gm/ Sodium Chloride IV Infused Q8H ANALISA Infusion Discontinued Medications Generic Name Dose Route Start Last Admin Trade Name Freq PRN Reason Stop Dose Admin Etomidate 20 mg 12/12/22 20:50 12/12/22 20:38 Etomidate 20 Mg/10 Ml Vial IVPUSH 12/12/22 20:51 20 mg NOW STA Administration Magnesium Sulfate 2 gm in 50 mls @ 25 mls/hr 12/12/22 20:12 12/12/22 22:57 Magnesium Sulfate/H2o IV 12/12/22 22:11 Infused ONCE ONE Infusion Lorazepam 1 mg 12/12/22 20:15 12/12/22 20:19 Lorazepam 2 Mg/Ml Vial IVPUSH 12/12/22 20:16 1 mg ONCE ONE Administration Methylprednisolone Sodium Succinate 60 mg 12/12/22 20:12 12/12/22 20:24 Methylprednisolone Sod Succ 125 Mg/2 Ml Vial IVPUSH 12/12/22 20:13 60 mg ONCE ONE Administration Rocuronium Cruger 100 mg 12/12/22 20:49 12/12/22 20:53 Rocuronium Cruger 50 Mg/5 Ml Vial IVPUSH 12/12/22 20:50 100 mg ONCE ONE Administration Medical Decision Making Medical Decision Making MDM Narrative: Patient is a 62 year old assigned female at with a history of presenting to the emergency department today with COPD, stage 1 lung cancer, CKD, and anxiety. Patient's physical exam initially showed an anxious individual with wheezing however, the patient decompensated rapidly and required intubation by my attending physician, Dr. Langford. Patient's blood work showed an elevated CR of 4.20 and a BUN of 54. Patient's urine showed is pending. Patient's EKG was unremarkable. Patient's chest x-ray confirmed ET tube placement. I spoke to the waist presser who agreed to admission. Patient's clinical presentation is most consistent with acute respiratory failure. Patient's clinical presentation is not consistent with sepsis (@2130). Differential Diagnosis Differential Diagnoses: The differential diagnosis associated with the presentation includes Acute hypoxia Respiratory failure Admission/Observation Consideration of admission/observation: Escalation of care including admission/observation considered Patient admitted to the ICU. Consult Healthcare Provider Management of the patient was discussed with: Machine Sorter (spoke to the waist presser as noted in the MDM Rationale portion of this note.) Lab Data MDM Lab Attestation statement: I reviewed the patient's lab results. My interpretation of these results are in the MDM Rationale portion of this note. 12/12/22 20:03 12/12/22 20:03 Labs: Lab Results 12/12/22 12/12/22 12/12/22 Range/Units 20:03 20:06 21:20 WBC 11.8 H (4.8-10.8) X10*3/uL RBC 3.16 L (4.20-5.50) X10*6/uL Hgb 8.9 L (12.0-16.0) g/dl Hct 29.0 L (37.0-47.0) % MCV 91.8 (80.0-98.0) fL MCH 28.2 (27.0-33.0) pg MCHC 30.7 L (31.0-35.0) g/dl RDW 14.0 (11.0-16.0) % Plt Count 390 (160-400) X10*3/uL MPV 8.9 L (9.4-12.3) fL Immature Gran % (Auto) 1.1 H (0.0-0.4) % Neut % (Auto) 87.1 H (45-73) % Lymph % (Auto) 4.6 L (20-40) % [place] % (Auto) 6.9 (2-11) % Eos % (Auto) 0.0 (0-4) % Baso % (Auto) 0.3 (0-2) % Lymph # (Auto) 0.5 L (1.2-4.9) X10*3/uL [place] # (Auto) 0.8 (0.1-1.2) X10*3/uL Eos # (Auto) 0.0 (0.0-0.4) X10*3/uL Baso # (Auto) 0.0 (0.0-0.2) X10*3/uL Abs Immat Gran (auto) 0.13 H (0.00-0.03) X10*3/uL Absolute Neuts (auto) 10.3 H (2.0-8.3) x10*3/uL Absolute Nucleated RBC 0.030 H (0.0-0.012) X10*3/uL Nucleated RBC % (auto) 0.3 H (0.0-0.2) /100WBC VBG pH 7.45 H (7.32-7.43) VBG pCO2 52 mmHg VBG pO2 53 mmHg VBG HCO3 36 H (22-26) mmol/L VBG O2 Saturation 85.0 % VBG Base Excess 11.3 mmol/L Sodium 144 (135-145) mmol/L Potassium 3.5 D (3.3-5.1) mmol/L Chloride 101 (96-108) mmol/L Carbon Dioxide 27 (22-29) mmol/L Anion Gap 20 (12-20) BUN 54 H (9-16) mg/dL Creatinine 4.20 H* (0.5-1.4) mg/dL Estim Creat Clear Calc 15.0 Estimated GFR 11 Random Glucose 136 H (60-115) mg/dL Calcium 9.6 (8.4-10.2) mg/dL Influenza Type A (PCR) NEGATIVE (Negative) Influenza Type B (PCR) NEGATIVE (Negative) RSV RNA Qual (PCR) NEGATIVE (Negative) SARS-CoV-2 RNA (RT-PCR) NEGATIVE (Negative) Independent Interpretation I performed an independent interpretation of an: EKG and Plain X-Ray Interpretation: My interpretation is in agreement with the radiologist's impression of this imaging study. - EXAMINATION: XR CHEST CLINICAL INFORMATION: Intubation placement. COMPARISON: Prior chest x-ray 10/20/2022 TECHNIQUE: AP upright portable view of the chest was obtained. FINDINGS: Endotracheal tube in place with tip approximately 2 cm above oswaldo. Enteric tube noted with the distal tip below the EG junction but obscured by additional overlying wires/tubes Cardiac mediastinal silhouette normal except for some calcification of the dorsal aorta. Linear opacity in the right infrahilar region similar to prior compatible with atelectasis or scarring. Lungs otherwise clear. Bone and soft tissues unremarkable.. XR/XR chest 1V IMPRESSION: 1. Endotracheal tube 2 cm above oswaldo. 2. Enteric tube noted with distal tip below the EG junction but obscured by additional overlying wires/tubes. 3. Right infrahilar atelectasis or scarring similar to prior. Dictated By: Remington Warren MD Signed By: Electronically signed by Remington Warren MD 12/12/222199 - Vent. Rate: 101 BPM Atrial Rate: 101 BPM P-R Int: 180 ms QRS Dur: 096 ms QT Int: 342 ms P-R-T Axes: 071 059 039 degrees QTc Int: 443 ms Sinus tachycardia Nonspecific ST abnormality Abnormal ECG When compared with ECG of 19-JUL-2022 10:08, Premature ventricular complexes are no longer Present DD/ 24 Radiology Impression Discussion of test interpretation with radiology: I have reviewed the radiologist's reading. Independent Historian Clinical information obtained from an independent historian. History obtained from or confirmed by: EMS (EMS provided additional history and confirmed the history provided by the patient.) External Record Review External record reviewed: Inpatient record, Office record and Outpatient record Chronic Conditions Patient?s care impacted by: Other (CKD, COPD) Critical Care Time Critical Care Time Critical Care Time: Yes Total Critical Care Time: 45 Attestation: I spent 45 minutes of Critical Care Time with this patient. This does not include time spent on separately reported billable procedures. Discharge Plan Discharge Clinical Impression: Hypoxia Patient Disposition: Admitted As Inpatient Interventions: Admission Worksheet (ED) Last Done: 12/12/22 22:16
[2022-12-12 20:07] LABS: MANUAL DIFF FLAG NO
[2022-12-12 20:08] LABS: Basophils Percent Auto 0.3 % (0-2); Hemoglobin 8.9 g/dl (12.0-16.0); Imm Gran Abs Auto 0.13 X10*3/uL (0.00-0.03); Imm Gran Pct Auto 1.1 % (0.0-0.4); Lymphocytes Absolute Auto 0.5 X10*3/uL (1.2-4.9); Lymphocytes Percent Auto 4.6 % (20-40); Mean Corpuscular HGB Conc 30.7 g/dl (31.0-35.0); Mean Corpuscular Hemoglobin 28.2 pg (27.0-33.0); Mean Corpuscular Volume 91.8 fL (80.0-98.0); Mean Platelet Volume 8.9 fL (9.4-12.3); Monocytes Absolute Auto 0.8 X10*3/uL (0.1-1.2); Monocytes Percent Auto 6.9 % (2-11); NRBC Pct Auto 0.3 /100WBC (0.0-0.2); Neutrophils Absolute Auto 10.3 x10*3/uL (2.0-8.3); Neutrophils Percent Auto 87.1 % (45-73); Platelet Count 390 X10*3/uL (160-400); Red Blood Count 3.16 X10*6/uL (4.20-5.50); White Blood Count 11.8 X10*3/uL (4.8-10.8)
[2022-12-12 20:10] LABS: Venous Blood Gas Refer to POC result
[2022-12-12 20:11] LABS: VBG Base Excess 11.3 mmol/L; VBG HCO3 36 mmol/L (22-26); VBG pCO2 52 mmHg; VBG pH 7.45 (7.32-7.43); VBG pO2 53 mmHg
[2022-12-12] MEDS: LORazepam 2 MG/ML VIAL 1 MG IVPUSH (20:19)
[2022-12-12] MEDS: Magnesium Sulfate/H2O 2 GM/50 ML PIGGYBACK IV (20:24)
[2022-12-12] MEDS: methylPREDNISolone Sod Succ 125 MG/2 ML VIAL 60 MG IVPUSH (20:24)
[2022-12-12 20:26] LABS: Anion Gap 20 (12-20); Blood Urea Nitrogen 54 mg/dL (9-16); Calcium 9.6 mg/dL (8.4-10.2); Carbon Dioxide 27 mmol/L (22-29); Chloride 101 mmol/L (96-108); Estimated Glomerular Filt Rate 11; Glucose Random 136 mg/dL (60-115); Potassium 3.5 mmol/L (3.3-5.1); Sodium 144 mmol/L (135-145)
[2022-12-12] MEDS: Etomidate 20 MG/10 ML VIAL IVPUSH (20:38)
[2022-12-12] MEDS: propofoL 1,000 MG/100 ML VIAL 17.15 MG IVCONT (20:51)
[2022-12-12] MEDS: Rocuronium Bromide 50 MG/5 ML VIAL 100 MG IVPUSH (20:53)
--- NOTE | 2022-12-12 20:56 | PC.NURSE ---
This RN assumed care of patient when patient has been prepared for intubation. Patient pulled out 20 G IV line from L AC. New access established in R hand 22 G. 20:30 20 mg Atemodate administered 20:39 100 mg administered. 20:40 7.5 ET inserted by ED provider 23 at lip. P 150, BP 140/49, 100% vented, O2 Sat 100%, cap 47. Propofol drip started at 30 mcg/kg/hr, RASS score 3. Temp sensing 16 F/C inserted, balloon inflated with 10 mL of sterile water. OJ tube inserted, pending CXR conformation.
--- NOTE | 2022-12-12 21:22 | PC.NURSE ---
Addendum 20:39 100 mg of Eris administered at 20:39.
--- NOTE | 2022-12-12 21:25 | PC.NURSE ---
OJ tube placement confirmed by CXR.
--- NOTE | 2022-12-12 21:26 | PC.NURSE ---
Reba, DRUM DRIER and RT at bedside to transport pt to ICU. Nurse to nurse report given to Reba.
[2022-12-12 22:07] LABS: Influenza A PCR NEGATIVE (Negative); Influenza B PCR NEGATIVE (Negative); Resp Syncy Virus RNA Qual PCR NEGATIVE (Negative); SARS COV2 PCR INHOUSE NEGATIVE (Negative)
--- NOTE | 2022-12-12 22:20 | P.HPCC_ITS ---
History of Present Illness Date of Service: 12/12/22 Attending physician on admission: Neal Shabazz Chief Complaint: Dyspnea Ms. Galeas is a 62 year old female with history of? O2 dependent COPD, respiratory failure,? LEO, obesity, respiratory failure, tracheostomy, COVID- 19,? cardiac arrest, hypertension, chronic kidney disease stage 5, dyslipidemia, anemia of chronic disease,? tubulovillous adenoma of large intestine, lung cancer,? seizure, anxiety and depression ? Who was brought in by ambulance with a complaint of gradual worsening of shortness of breath and concern for pneumonia.? She denied any other complaint but reports having had sick contacts. On arrival to the ED, ?the patient's blood pressure 160/76, heart rate 104,? respiratory rate 17, O2 Sat 95% 2L NC. Laboratory data significant for? WBC 11.8, hemoglobin 8.9, hematocrit 29.0,? BUN 54, creatinine 4.20. VBG showed pH of 7.45, pCo2 52, pO2 53, HCO3 36, B.E. 11.3.? Imaging: XR/XR chest 1V: 1. Endotracheal tube 2 cm above oswaldo. 2. Enteric tube noted with distal tip below the EG junction but obscured by additional overlying wires/tubes. 3. Right infrahilar atelectasis or scarring similar to prior. ED course:? the patient received 2 g Mag sulfate, methylprednisolone 60 mg. She acutely decompensated and was emergently intubated. Review of Systems 2 Review of Systems: Yes unobtainable due to endotracheal tube PMFSH Past Medical History Medical History Acute exacerbation of chronic obstructive pulmonary disease Tremor of both hands Ambulates with cane Seasonal allergies Herpes zoster Post covid-19 condition, unspecified COPD (chronic obstructive pulmonary disease) Osteopenia (~2017) Obesity Respiratory failure COVID-19 (~03/2021) Osteoarthritis of ankles, bilateral Olecranon bursitis of left elbow Tubulovillous adenoma of large intestine (~2020) Hx of cardiac arrest (~2015) O2 dependent Methadone maintenance therapy patient History of claustrophobia History of seizure Anxiety and depression HTN (hypertension) Multiple fractures of ribs Anemia in chronic kidney disease Vitamin D deficiency Family history of colon cancer CKD (chronic kidney disease) stage 4, GFR 15-29 ml/min Dyslipidemia Restrictive lung disease Lung cancer (~2019) LEO (obstructive sleep apnea) Family History Family History Father Diabetes mellitus Mother Depression Mental health disorder Maternal Grandfather Colon cancer Sister No problems noted. Son No problems noted. Daughter No problems noted. Daughter No problems noted. Surgical History Surgical History Hx of tracheostomy History of esophagogastroduodenoscopy (EGD) (~2021) History of removal of ureteral stent (~2013) History of lung biopsy (~2019) History of colonoscopy (~2020) Umbilical hernia History of laparoscopy (~2012) History of hand surgery History of tubal ligation Social History Social History Household Members: Unknown / Unable to assess Housing: House Housing Other:: mobile home Are you a primary critical care technician to a significant other at home: No Do you presently have visiting nurse or other home services: Yes ([facility] daily) Unable to assess alcohol history related to: Unable to respond Alcohol intake: never Patient Tobacco Use Status: Former Tobacco user Quit Date: 2006 Tobacco use type: Cigarette Years Smoked: 25 yrs Smoked in Last 30 Days: No e-Cigarette/Vaping Use: Never Used Use of substances other than those prescribed or required for medical reasons: Unable to respond Substance Use Type: Former Substance User and Heroin Currently Displaying Signs/Symptoms of Drug Intoxication Withdrawal: No Advance Directives: Yes Advance Directives on File: Yes Advance Directives Date on File: 03/21/21 Do you have thoughts of harming others: None Do you have a plan to hurt others: No Plan Recently lost weight without trying: Unsure Nutrition Risks: On aspiration precautions Patient : No service: No Current occupational status: unemployed and disabled Cognitive needs: No Hearing needs: No Vision needs: No Meds Allergies Allergy/AdvReac Type Severity Reaction Status Date / Time ciprofloxacin [From Cipro] Allergy Severe HIVES/SWELLING, Verified 12/09/22 16:09 THROAT CLOSES shellfish derived Allergy Intermediate Vomiting Verified 12/09/22 16:09 [SHELLFISH DERIVED] NSAIDS (Non-Steroidal AdvReac Severe Avoid due Verified 12/09/22 16:09 Anti-Inflamma to kidney disease Active Medications: Current Medications Chlorhexidine Gluconate (Chlorhexidine Gluc Oral Rinse 15 Ml Mouthwash) 15 ml BUCCAL Q8H ANALISA Propofol (Diprivan) 1,000 mg in 100 mls @ 0 mls/hr IVCONT .Q0M ANALISA; Protocol Last Admin: 12/12/22 20:51 Dose: 30 mcg/kg/min, 17.15 mls/hr Norepinephrine Bitartrate (Levophed) 8 mg in 250 mls @ 0 mls/hr IV .Q0M ANALISA; Protocol Piperacillin Sod/Tazobactam (Sod 2.25 gm/ Sodium Chloride) 50 mls @ 100 mls/hr IV Q8H ANALISA Home Medications Medication Instructions Recorded Confirmed Last Taken Type acetaminophen 325 mg tablet 650 mg PO Q6H PRN Pain 07/24/21 12/13/22 Unknown History calcitriol 0.25 mcg capsule 0.25 mcg PO DAILY 12/17/21 12/13/22 12/12/22 History methadone 10 mg/mL oral concentrate 70 mg PO DAILY 05/22/22 10/20/22 Unknown History fluticasone propionate 50 1 spray intranasal DAILY 10/01/22 12/13/22 12/12/22 History mcg/actuation nasal spray,suspension clonazepam 1 mg tablet 1 mg PO BID PRN Anxiety 12/13/22 12/13/22 Unknown History gabapentin 100 mg capsule 100 mg PO BID PRN neuropathy 12/13/22 12/13/22 Unknown History hydroxyzine pamoate 100 mg capsule 100 mg PO BEDTIME PRN insomnia 12/13/22 12/13/22 Unknown History metolazone 2.5 mg tablet 2.5 mg PO MOWEFR@0900 12/13/22 12/13/22 12/11/22 History torsemide 20 mg tablet 20 mg PO BID 12/13/22 12/13/22 12/12/22 09:00 History Physical Exam 2 Vital Signs: Vital Signs: Last Vital Signs Temp 98.1 F 12/12/22 19:44 Pulse 153 H 12/12/22 20:51 Resp 9 L 12/12/22 20:51 BP 140/49 H 12/12/22 20:51 Pulse Ox 98 12/12/22 20:51 O2 Del Method Nasal Cannula 12/12/22 19:44 O2 Flow Rate 2 12/12/22 19:44 FiO2 70 12/12/22 21:16 Oxygen Flow Rate 2 12/12/22 19:22 BMI result Body Mass Index 39.7 Const: General: no acute distress Nutritional Appearance: obese HEENT: Head: Yes normocephalic and Yes atraumatic General nose exam: Normal external nose present (Nares patent, septum midline) Mouth: Normal oral and palatal mucosa present Neck: Neck: Yes supple (no thyromegaly, trachea midline.) Carotids: normal carotid upstroke Resp: Auscultation: clear to auscultation bilaterally (normal work of breathing, no accessory muscle use) Cardio: Jugular venous distension: no JVD Rate: regular rate Rhythm: r egular rhythm Heart sounds: no gallops, no murmurs and no rubs Peripheral pulses: Peripheral pulses 2+ throughout GI: Palpation (GI): Soft to palpation (nondistended.) and nontender Skin: General skin exam: no rashes or lesions noted Extrem: General: Yes full ROM, Yes capillary refill normal and Yes no clubbing, cyanosis or edema Results Labs 12/13/22 05:36 12/13/22 05:36 Labs: Laboratory Results - last 24 hr 12/12/22 12/12/22 12/12/22 20:03 20:06 21:20 MCV 91.8 MCH 28.2 MCHC 30.7 L RDW 14.0 Plt Count 390 MPV 8.9 L Immature Gran % (Auto) 1.1 H Neut % (Auto) 87.1 H Lymph % (Auto) 4.6 L [place] % (Auto) 6.9 Eos % (Auto) 0.0 Baso % (Auto) 0.3 Lymph # (Auto) 0.5 L [place] # (Auto) 0.8 Eos # (Auto) 0.0 Baso # (Auto) 0.0 Abs Immat Gran (auto) 0.13 H Absolute Neuts (auto) 10.3 H Absolute Nucleated RBC 0.030 H Nucleated RBC % (auto) 0.3 H VBG pH 7.45 H VBG pCO2 52 VBG pO2 53 VBG HCO3 36 H VBG O2 Saturation 85.0 VBG Base Excess 11.3 Anion Gap 20 Estim Creat Clear Calc 15.0 Estimated GFR 11 Random Glucose 136 H Calcium 9.6 Influenza Type A (PCR) NEGATIVE Influenza Type B (PCR) NEGATIVE RSV RNA Qual (PCR) NEGATIVE SARS-CoV-2 RNA (RT-PCR) NEGATIVE Imaging Radiologist's Impressions: Impressions Chest X-Ray 12/12/22 21:32 IMPRESSION: 1. Endotracheal tube 2 cm above oswaldo. 2. Enteric tube noted with distal tip below the EG junction but obscured by additional overlying wires/tubes. 3. Right infrahilar atelectasis or scarring similar to prior. Assessment and Plan (1) CKD (chronic kidney disease) stage 5, GFR less than 15 ml/min: Status: Acute (2) Acute exacerbation of chronic obstructive pulmonary disease: Status: Acute (3) Obesity: Qualifiers: Body mass index: BMI 39.0-39.9 Obesity classification: adult class 2 (BMI 35 - 39.9) Obesity type: unspecified obesity type Serious obesity comorbidity presence: with serious comorbidity Qualified Code(s): E66.01 - Morbid (severe) obesity due to excess calories; Z68.39 - Body mass index [BMI] 39.0-39.9, adult Status: Acute (4) O2 dependent: Status: Acute (5) Restrictive lung disease: Status: Acute (6) Anemia in chronic kidney disease: Qualifiers: Chronic kidney disease stage: stage 5, not on chronic dialysis Qualified Code(s): N18.5 - Chronic kidney disease, stage 5; D63.1 - Anemia in chronic kidney disease Status: Acute (7) LEO (obstructive sleep apnea): Status: Acute Plan 61-year-old female with past medical history of COPD, LEO, CKD stage 5, anemia of chronic kidney disease, hyperlipidemia, hypertension admitted for acute respiratory failure requiring emergent intubation.? Plan: Neuro:? No acute issues. Cardiac: ? No acute issues. Last echo 03/25/2021 -? 1. Low normal LV systolic function with LVEF of 50-55%. Regional wall motion abnormality is difficult to assess on this study. 2. Normal RV size and systolic function. Troponin, BNP ordered.? Pulm: COPD exacerbation. LEO. Acute respiratory failure possibly due to aspiration. Chest CT ordered. DuoNebs. Zosyn ordered.? Renal: CKD (chronic kidney disease) stage 5, GFR less than 15 ml/min. Monitor renal indices and urine output. Endo: ? No acute issues. GI: ? No acute issues. ID:? No acute issues. Heme/Onc:? No acute issues.? Psych: Urine drug screen positive for opiates, fentany, cocaine.? Methadone maintenance therapy patient.? Consult addiction medicine. Prophylaxis:? Heparin/pneumatic hoses Diet:? NPO? Case discussed with Dr. Shabazz. Total time managing care of this patient today: 60 minutes.
[2022-12-12] MEDS: Norepinephrine Bitartrate/D5W 8 MG/250 ML PLAST..BAG 8.93 MG IV (22:21)
[2022-12-12 22:57] LABS: Appearance Urine Clear; Color Urine Yellow; Glucose Urine UA Negative (Negative); Leukocyte Esterase Urine Moderate (2+) (Negative); Nitrite Urine Negative (Negative); PH 6.5 (5.0-9.0); UMIC TRIGGER UA YES; Urine Blood Small (1+) (Negative); Urine Ketones Negative (Negative); Urine Protein 100 (2+) mg/dL (Neg-Trace)
[2022-12-12 23:04] LABS: Bacteria Urine Trace (None Seen); Hyaline Casts Urine 0-2 /LPF (0-2); Squamous Epithelial Cell Urine 0-2 /HPF (0-2); WBC Urine >50 /HPF (0-5)
[2022-12-12 23:05] LABS: Amphetamine Screen Urine Not Detected (Not Detect); Barbiturates, Urine Not Detected (Not Detect); Benzodiazepines Screen Urine Not Detected (Not Detect); Cannabinoid Screen Urine Not Detected (Not Detect); Cocaine Screen Urine POSITIVE (Not Detect); Fentanyl, urine POSITIVE (Not Detect); Opiate Screen Urine POSITIVE (Not Detect); Phencyclidine Screen Urine Not Detected (Not Detect)
[2022-12-12 23:19] LABS: Albumin Level 3.2 g/dL (3.5-5.0); Magnesium 1.7 mg/dL (1.6-2.6); Phosphorus 1.9 mg/dL (2.7-4.5)
[2022-12-12 23:41] LABS: Troponin-I High Sensitivity 357.2 ng/L (<3.5-17.0)
[2022-12-12] MEDS: Chlorhexidine Gluc Oral Rinse 15 ML MOUTHWASH BUCCAL (23:49)
[2022-12-12] MEDS: Piperacillin Sodium/Tazobactam 2.25 GM in 0.9 % Sodium Chloride 50 ML IV (23:49)
[2022-12-13] VITALS (38 sets, daily range): BP systolic 100–147; BP diastolic 58–93; PULSE 85–126; RESP 14–124; TEMP 34.7–37.3; O2SAT 92–100; BMI 39.7
[2022-12-13] MEDS: Heparin Sodium,Porcine 5,000 UNIT/ML VIAL 5000 UNIT SUBCUT ×3 (00:30→14:46)
[2022-12-13] MEDS: propofoL 1,000 MG/100 ML VIAL 22.86 MG IVCONT (00:46)
[2022-12-13] MEDS: Albuterol/Iprat 2.5/0.5MG 3 ML AMPUL.NEB INHALE ×5 (00:57→20:30)
[2022-12-13 01:50] LABS: Troponin-I High Sensitivity 507.3 ng/L (<3.5-17.0)
[2022-12-13] MEDS: Potassium Phosphate/NS 15 MMOL/250 ML PLAST..BAG 62.5 MMOL IV (02:14)
[2022-12-13] MEDS: propofoL 1,000 MG/100 ML VIAL 17.15 MG IVCONT (04:17)
[2022-12-13 05:47] LABS: VBG HCO3 31 mmol/L (22-26); VBG pCO2 45 mmHg; VBG pH 7.45 (7.32-7.43); VBG pO2 44 mmHg
[2022-12-13] MEDS: Pantoprazole Sodium 40 MG/10 ML VIAL IVPUSH (06:14)
[2022-12-13] MEDS: Piperacillin Sodium/Tazobactam 2.25 GM in 0.9 % Sodium Chloride 50 ML IV ×3 (06:15→22:52)
[2022-12-13 06:20] LABS: MANUAL DIFF FLAG NO
[2022-12-13 06:33] LABS: Venous Blood Gas Refer to POC result
[2022-12-13 06:36] LABS: Basophils Percent Auto 0.2 % (0-2); Hematocrit 29.1 % (37.0-47.0); Hemoglobin 8.9 g/dl (12.0-16.0); Imm Gran Abs Auto 0.17 X10*3/uL (0.00-0.03); Imm Gran Pct Auto 1.4 % (0.0-0.4); Lymphocytes Absolute Auto 0.6 X10*3/uL (1.2-4.9); Lymphocytes Percent Auto 4.9 % (20-40); Mean Corpuscular HGB Conc 30.6 g/dl (31.0-35.0); Mean Corpuscular Hemoglobin 28.2 pg (27.0-33.0); Mean Corpuscular Volume 92.1 fL (80.0-98.0); Mean Platelet Volume 9.4 fL (9.4-12.3); Monocytes Absolute Auto 0.4 X10*3/uL (0.1-1.2); Monocytes Percent Auto 3.5 % (2-11); NRBC Pct Auto 0.2 /100WBC (0.0-0.2); Neutrophils Absolute Auto 10.9 x10*3/uL (2.0-8.3); Platelet Count 457 X10*3/uL (160-400); Red Blood Count 3.16 X10*6/uL (4.20-5.50); White Blood Count 12.2 X10*3/uL (4.8-10.8)
[2022-12-13 07:02] LABS: Albumin Level 3.9 g/dL (3.5-5.0)
[2022-12-13 07:11] LABS: Alanine Aminotransferase 20 U/L (0-31); Albumin Level 3.9 g/dL (3.5-5.0); Alkaline Phosphatase 93 U/L (39-117); Anion Gap 19 (12-20); Aspartate Amino Transferase 27 U/L (5-31); Bilirubin Total 0.2 mg/dL (0.0-1.0); Blood Urea Nitrogen 56 mg/dL (9-16); Calcium 9.8 mg/dL (8.4-10.2); Carbon Dioxide 27 mmol/L (22-29); Chloride 99 mmol/L (96-108); Creatinine Clr Calc Pharmacy 16.4; Estimated Glomerular Filt Rate 12; Glucose Random 195 mg/dL (60-115); Magnesium 1.9 mg/dL (1.6-2.6); Potassium 3.1 mmol/L (3.3-5.1); Sodium 142 mmol/L (135-145); Total Protein 7.4 g/dL (6.5-8.0)
[2022-12-13 07:30] LABS: Troponin-I High Sensitivity 590.2 ng/L (<3.5-17.0)
[2022-12-13 07:50] LABS: NT-proBNP 5340
[2022-12-13] MEDS: Potassium Chloride Packet 20 MEQ PACKET 60 MEQ PO (08:24)
[2022-12-13] MEDS: Chlorhexidine Gluc Oral Rinse 15 ML MOUTHWASH BUCCAL (08:24)
--- NOTE | 2022-12-13 09:22 | PC.NURSE ---
sedation vacation initiated at 0920 respiratory at bedside places pt on spont pressure support.
--- NOTE | 2022-12-13 09:46 | PHA.MEDREC ---
Pharmacy Consult ? Medication Reconciliation Pharmacy has completed the medication reconciliation. Spouse James verified all meds ([phone]). Mentioned that patient gets methadone at [facility] in [place]. Also mentioned that patient has full bottle of diltiazem in their prescription area, and likely does not take the medication anymore.
--- NOTE | 2022-12-13 10:06 | PC.NURSE ---
extubated 1000 with respiratory at bedside.
[2022-12-13] MEDS: LORazepam 2 MG/ML VIAL 1 MG IVPUSH (11:04)
--- NOTE | 2022-12-13 11:25 | PM.CCPN ---
Subjective Subjective Date of Service: 12/13/22 Interval History: 62-year-old lady with underlying polysubstance abuse also on methadone, COPD on 2 L, lung cancer status post resection, LEO, obesity admitted on 12/12/2022 with polysubstance abuse resulting in aspiration with acute hypoxemia requiring intubation. Patient uneventfully extubated this a.m.. Critical Care Time (minutes): 45 Physical Exam Vital Signs: Vital Signs: Last Vital Signs Temp 99.1 F 12/13/22 11:00 Pulse 125 H 12/13/22 11:00 Resp 23 H 12/13/22 11:00 BP 133/90 H 12/13/22 11:00 Pulse Ox 96 12/13/22 11:00 O2 Del Method Nasal Cannula 12/13/22 11:00 O2 Flow Rate 2 12/13/22 11:00 FiO2 28 12/13/22 09:00 Oxygen Flow Rate 2 12/12/22 19:22 BMI result Body Mass Index 39.7 Const: General: no acute distress, alert and awake Eyes: Sclerae: sclerae normal EOM: EOMs intact bilaterally Neck: Neck: Yes no lymphadenopathy, Yes trachea midline and Yes supple Resp: Effort & Inspection: normal respiratory effort and no respiratory distress Auscultation: clear to auscultation bilaterally Cardio: Rate: tachycardic Rhythm: regular rhythm Heart sounds: no gallops, no murmurs and no rubs GI: Palpation (GI): Soft to palpation and Other GI palpation findings present ( Nontender) Auscultation: normal bowel sounds Extrem: General: Yes no pedal edema, No clubbing and No cyanosis Objective Data Labs 12/13/22 05:36 12/13/22 05:36 Labs: Laboratory Results - last 24 hr 12/12/22 12/12/22 12/12/22 20:03 20:06 21:20 WBC 11.8 H RBC 3.16 L Hgb 8.9 L Hct 29.0 L MCV 91.8 MCH 28.2 MCHC 30.7 L RDW 14.0 Plt Count 390 MPV 8.9 L Immature Gran % (Auto) 1.1 H Neut % (Auto) 87.1 H Lymph % (Auto) 4.6 L [place] % (Auto) 6.9 Eos % (Auto) 0.0 Baso % (Auto) 0.3 Lymph # (Auto) 0.5 L [place] # (Auto) 0.8 Eos # (Auto) 0.0 Baso # (Auto) 0.0 Abs Immat Gran (auto) 0.13 H Absolute Neuts (auto) 10.3 H Absolute Nucleated RBC 0.030 H Nucleated RBC % (auto) 0.3 H VBG pH 7.45 H VBG pCO2 52 VBG pO2 53 VBG HCO3 36 H VBG O2 Saturation 85.0 VBG Base Excess 11.3 Sodium 144 Potassium 3.5 D Chloride 101 Carbon Dioxide 27 Anion Gap 20 BUN 54 H Creatinine 4.20 H* Estim Creat Clear Calc 15.0 Estimated GFR 11 Random Glucose 136 H Calcium 9.6 Phosphorus Magnesium Total Bilirubin AST ALT Alkaline Phosphatase Troponin I High Sens B-Natriuretic Peptide NT-Pro-B Natriuret Pep Total Protein Albumin Urine Color Urine Appearance Urine pH Ur Specific [place] Urine Protein Urine Glucose (UA) Urine Ketones Urine Blood Urine Nitrite Ur Leukocyte Esterase Urine RBC Urine WBC Ur Squamous Epith Cells Urine Bacteria Hyaline Casts Urine Opiates Screen Urine Fentanyl Screen Ur Barbiturates Screen Ur Phencyclidine Scrn Ur Amphetamines Screen U Benzodiazepines Scrn Urine Cocaine Screen U Marijuana (THC) Screen Influenza Type A (PCR) NEGATIVE Influenza Type B (PCR) NEGATIVE RSV RNA Qual (PCR) NEGATIVE SARS-CoV-2 RNA (RT-PCR) NEGATIVE 12/12/22 12/12/22 12/12/22 22:24 22:56 23:16 WBC RBC Hgb Hct MCV MCH MCHC RDW Plt Count MPV Immature Gran % (Auto) Neut % (Auto) Lymph % (Auto) [place] % (Auto) Eos % (Auto) Baso % (Auto) Lymph # (Auto) [place] # (Auto) Eos # (Auto) Baso # (Auto) Abs Immat Gran (auto) Absolute Neuts (auto) Absolute Nucleated RBC Nucleated RBC % (auto) VBG pH VBG pCO2 VBG pO2 VBG HCO3 VBG O2 Saturation VBG Base Excess Sodium Potassium Chloride Carbon Dioxide Anion Gap BUN Creatinine Estim Creat Clear Calc Estimated GFR Random Glucose Calcium Phosphorus 1.9 L Magnesium 1.7 Total Bilirubin AST ALT Alkaline Phosphatase Troponin I High Sens 357.2 H* D B-Natriuretic Peptide Cancelled NT-Pro-B Natriuret Pep 5340 Total Protein Albumin 3.2 L Urine Color Yellow Urine Appearance Clear Urine pH 6.5 Ur Specific [place] 1.010 Urine Protein 100 (2+) H Urine Glucose (UA) Negative Urine Ketones Negative Urine Blood Small (1+) H Urine Nitrite Negative Ur Leukocyte Esterase Moderate (2+) H Urine RBC 3-5 H Urine WBC >50 H Ur Squamous Epith Cells 0-2 Urine Bacteria Trace Hyaline Casts 0-2 Urine Opiates Screen POSITIVE H Urine Fentanyl Screen POSITIVE H Ur Barbiturates Screen Not Detected Ur Phencyclidine Scrn Not Detected Ur Amphetamines Screen Not Detected U Benzodiazepines Scrn Not Detected Urine Cocaine Screen POSITIVE H U Marijuana (THC) Screen Not Detected Influenza Type A (PCR) Influenza Type B (PCR) RSV RNA Qual (PCR) SARS-CoV-2 RNA (RT-PCR) 12/13/22 12/13/22 12/13/22 01:05 EST 05:36 05:36 WBC 12.2 H RBC 3.16 L Hgb 8.9 L Hct 29.1 L MCV 92.1 MCH 28.2 MCHC 30.6 L RDW 14.0 Plt Count 457 H MPV 9.4 Immature Gran % (Auto) 1.4 H Neut % (Auto) 90.0 H Lymph % (Auto) 4.9 L [place] % (Auto) 3.5 Eos % (Auto) 0.0 Baso % (Auto) 0.2 Lymph # (Auto) 0.6 L [place] # (Auto) 0.4 Eos # (Auto) 0.0 Baso # (Auto) 0.0 Abs Immat Gran (auto) 0.17 H Absolute Neuts (auto) 10.9 H Absolute Nucleated RBC 0.020 H Nucleated RBC % (auto) 0.2 VBG pH VBG pCO2 VBG pO2 VBG HCO3 VBG O2 Saturation VBG Base Excess Sodium 142 Potassium 3.1 L Chloride 99 Carbon Dioxide 27 Anion Gap 19 BUN 56 H Creatinine 3.84 H Estim Creat Clear Calc 16.4 Estimated GFR 12 Random Glucose 195 H Calcium 9.8 Phosphorus 3.0 Magnesium 1.9 Total Bilirubin 0.2 AST 27 ALT 20 Alkaline Phosphatase 93 Troponin I High Sens 507.3 H* 590.2 H* B-Natriuretic Peptide NT-Pro-B Natriuret Pep Total Protein 7.4 Albumin 3.9 3.9 Urine Color Urine Appearance Urine pH Ur Specific [place] Urine Protein Urine Glucose (UA) Urine Ketones Urine Blood Urine Nitrite Ur Leukocyte Esterase Urine RBC Urine WBC Ur Squamous Epith Cells Urine Bacteria Hyaline Casts Urine Opiates Screen Urine Fentanyl Screen Ur Barbiturates Screen Ur Phencyclidine Scrn Ur Amphetamines Screen U Benzodiazepines Scrn Urine Cocaine Screen U Marijuana (THC) Screen Influenza Type A (PCR) Influenza Type B (PCR) RSV RNA Qual (PCR) SARS-CoV-2 RNA (RT-PCR) 12/13/22 05:41 WBC RBC Hgb Hct MCV MCH MCHC RDW Plt Count MPV Immature Gran % (Auto) Neut % (Auto) Lymph % (Auto) [place] % (Auto) Eos % (Auto) Baso % (Auto) Lymph # (Auto) [place] # (Auto) Eos # (Auto) Baso # (Auto) Abs Immat Gran (auto) Absolute Neuts (auto) Absolute Nucleated RBC Nucleated RBC % (auto) VBG pH 7.45 H VBG pCO2 45 VBG pO2 44 VBG HCO3 31 H VBG O2 Saturation 77.0 VBG Base Excess 7.0 Sodium Potassium Chloride Carbon Dioxide Anion Gap BUN Creatinine Estim Creat Clear Calc Estimated GFR Random Glucose Calcium Phosphorus Magnesium Total Bilirubin AST ALT Alkaline Phosphatase Troponin I High Sens B-Natriuretic Peptide NT-Pro-B Natriuret Pep Total Protein Albumin Urine Color Urine Appearance Urine pH Ur Specific [place] Urine Protein Urine Glucose (UA) Urine Ketones Urine Blood Urine Nitrite Ur Leukocyte Esterase Urine RBC Urine WBC Ur Squamous Epith Cells Urine Bacteria Hyaline Casts Urine Opiates Screen Urine Fentanyl Screen Ur Barbiturates Screen Ur Phencyclidine Scrn Ur Amphetamines Screen U Benzodiazepines Scrn Urine Cocaine Screen U Marijuana (THC) Screen Influenza Type A (PCR) Influenza Type B (PCR) RSV RNA Qual (PCR) SARS-CoV-2 RNA (RT-PCR) Progress Note: A&P Assessment and plan (1) Polysubstance abuse: Status: Acute (2) Acute on chronic hypoxic respiratory failure: Status: Acute (3) CKD (chronic kidney disease) stage 5, GFR less than 15 ml/min: Status: Acute (4) Methadone maintenance therapy patient: Status: Acute (5) Obesity: Status: Acute (6) LEO (obstructive sleep apnea): Status: Acute Plan Assessment: 62-year-old lady with underlying polysubstance abuse, COPD on 2 L, LEO he admitted with acute on hypoxic respiratory failure with polysubstance abuse and an aspiration event briefly requiring ventilatory support. Plan: Neuro: No acute issues. Cardiac: No acute issues. Pulmonary: Acute on chronic hypoxic respiratory failure secondary to aspiration a background of polysubstance abuse intubated in ER, extubated this a.m.. Underlying COPD on 2 L. Renal: No acute issues. Underlying chronic renal disease. Endo: No acute issues. GI: No acute issues. ID: Empirically covered for aspiration pneumonitis. Heme/Onc: No acute issues. Psych: No acute issues. Miscellaneous: No acute issues. Prophylaxis: Heparin Diet: regular Critical care time spent: 45 minutes Quality Stroke Does the patient have a stroke diagnosis?: No VTE Prior VTE?: No VTE Risk Level:: Medical - moderate - high VTE Device Contraindication: N/A - Device Ordered VTE Drug Contraindication: N/A - Med Ordered
--- NOTE | 2022-12-13 12:37 | MHC.CM.PN ---
This CM attempted to meet with patient x2, intially intubated. Second attempt, after extubation, patient resting. Left 2 messages for health care proxy/spouse James Mahmood [phone] to complete CM assessment, no response at this time. IMM verbally delivered via voicemail. Copy to be mailed. Chart review completed - patient last admitted to this hospital in July 2022. At that time was living with spouse. Services: [employer], unknown agency. VNA for PT/SN with [employer]. Return referral sent via [employer]. Patient d/c'd to [facility] [place]. Methadone through [place]. DP pending. Patient remains in ICU care. CM will continue to follow and attempt further assessment when appropriate.
--- NOTE | 2022-12-13 12:47 | PM.EVENT ---
Event Note Date of Service: 12/13/22 Event Note: This is a 62 year old female with history COPD on 2L o2, LEO, obesity, respiratory failure, h/o tracheostomy, cardiac arrest, hypertension, chronic kidney disease stage 5, dyslipidemia, anemia of chronic disease,? tubulovillous adenoma of large intestine, lung cancer,? seizure, anxiety and depression presented to the ED 12/12 with sob emergently intubated likely due to aspiration, extubated 12/13. Downgraded to the medical floor 12/13 acute on chronic respiratory failure with hypoxia secondary to aspiration pnumonitis requiring intubation now on baseline 2L o2 continue zosyn, can likely transition to augmentin in am polysubstance use addiction medicine consult pending methadone needs to be verified CKD5 renal function up and down follow BMP elevated trops appears chronically elevated likely due to demand from CHF/hypoxia and decreased clearance from renal disease chronic normocytic anemia above transfusion threshold follow CBC LEO, chronic cpap at night obesity. BMI 39.7 contributing to respiratory issues weight loss recommended HFpEF no exacerbation resumed on torsemide Hx lung ca h/o palliative radiation dvt ppx - heparin Time Spent With Patient Time: Total time managing care of this patient today ____ minutes.
[2022-12-13] MEDS: carvediloL 3.125 MG TABLET PO ×2 (14:46→21:12)
[2022-12-13] MEDS: LORazepam 2 MG/ML VIAL 0.5 MG IVPUSH ×2 (15:43→21:12)
--- NOTE | 2022-12-13 16:01 | MHC.RECOVRN ---
Met with pt in 472 after consult placed to Addiction Medicine for positive UDS and pt on methadone. Pt had presented to the ED yesterday due to SOB, being around sick contacts, and worry about having pneumonia. Pt stated in triage she has Stg 1 lung CA and COPD, baseline 2L NC. Upon evaluation, pt was intubated and admitted for acute on chronic respiratory failure with hypoxia. Pt was extubated today. Pt sitting in bed, daughter present. Pt has difficulty talking due to SOB. Pt is able to tell me she receives methadone through [facility], 70 mg daily, and it is brought to her home. Pt reports last dose was yesterday. Pt reports beginning to feel withdrawal symptoms- clammy. Pt unable to participate in full assessment due to SOB. Per RN, having difficulty obtaining last dose verification from [place]. Discussed with Abi Rendon APRN.
--- NOTE | 2022-12-13 16:02 | P.EN_ITS ---
Event Note Date of Service: 12/13/22 Event Note: Addiction note Patient currently medically admitted Per senior solutions consultant, awaiting methadone verification from [facility] Patient reports 70mg methadone daily via visting nurse. Plan: Methadone 50mg ordered X1 Pending verification, remainder of dose and ongoing doing to be adjusted Time Spent With Patient Time: Total time managing care of this patient today ____ minutes.
[2022-12-13] MEDS: Morphine Sulfate 4 MG/ML CARTRIDGE IVPUSH (16:09)
[2022-12-13] MEDS: methylPREDNISolone Sod Succ 125 MG/2 ML VIAL IVPUSH (16:09)
[2022-12-13] MEDS: Albuterol Sulfate (0.083%) 2.5 MG/3 ML VIAL.NEB 10 MG INHALE (16:10)
[2022-12-13] MEDS: Furosemide 40 MG/4 ML VIAL IVPUSH (16:14)
--- NOTE | 2022-12-13 16:15 | PM.EVENT ---
Event Note Date of Service: 12/13/22 Event Note: Called to see patient on floor secondary to respiratory distress. Patient sitting upright in bed using accessory muscles; audible wheezes heard off the chest. Further auscultation demonstrates crackles at the bilateral bases in the backdrop of dense expiratory wheezes. Albuterol 10 mg neb ordered; Solu-Medrol 100 mg; morphine 4 mg; portable chest x-ray. Will continue to monitor patient with consideration for return back to ICU Time Spent With Patient Time: Total time managing care of this patient today ____ minutes.
--- NOTE | 2022-12-13 17:08 | PM.EVENT ---
Event Note Date of Service: 12/13/22 Event Note: Called to see patient for desaturation to the 70s with continuous neb. Patient's work of breathing has worsened. .. Beginning to tire. VBG's order ....will place on BiPAP. Time Spent With Patient Time: Total time managing care of this patient today ____ minutes.
--- NOTE | 2022-12-13 17:41 | PC.NURSE ---
pt arrives to unit placed on bipap. pt is anxious yet sleepy. long forced expiratory phase. pt tolerates bipap well. abg obtained.
[2022-12-13 17:46] LABS: ABG Base Excess 5.4 mmol/L; ABG HCO3 32 mmol/L (22-26); ABG pCO2 56 mmHg (32-45); ABG pH 7.35 (7.35-7.45); ABG pO2 47 mmHg (83-108)
--- NOTE | 2022-12-13 17:46 | PC.NURSE ---
Pt on 3 L NC, desatting to 70% O2. Respiratory and MD notified. Breathing treatment administered per RT, pt placed on 6 L. Pt continually desatting to low 80s-70s. RR >25, HR 140s. Pt lethargic and minimally responsive. Pt wheezing excessively and using all accessory muscles to breathe. MD recommendation to progress to ICU status and use of BiPap. Pt transferred to ICU, nurse to nurse given.
[2022-12-13 17:51] LABS: VBG Base Excess 6.2 mmol/L; VBG HCO3 31 mmol/L (22-26); VBG pCO2 45 mmHg; VBG pH 7.44 (7.32-7.43); VBG pO2 107 mmHg
--- NOTE | 2022-12-13 17:55 | PM.CCN ---
Critical Care Event Note Summary Date of Service: 12/13/22 Code activated: No Narrative: Transferred back to ICU from telemetry secondary to ?work of breathing. Upon arrival taken off bipap and is clinically the same as upon earlier transfer to telemetry. Will monitor overnight and consider transfer to telemetry in am. Critical Care Time (minutes): 0
--- NOTE | 2022-12-13 18:01 | PC.NURSE ---
pt on nasal canula after abg and vbg, 2 L good sats, pt has longer forces exp wheezing not specifically upper airway.
[2022-12-13 18:13] LABS: ABG Refer to POC result
[2022-12-13] MEDS: Torsemide 20 MG TABLET PO (21:09)
[2022-12-14] VITALS (25 sets, daily range): BP systolic 107–166; BP diastolic 70–104; PULSE 96–132; RESP 14–44; TEMP 36.4–36.9; O2SAT 80–99
[2022-12-14] MEDS: Albuterol/Iprat 2.5/0.5MG 3 ML AMPUL.NEB INHALE ×6 (01:08→18:59)
[2022-12-14] MEDS: LORazepam 2 MG/ML VIAL 0.5 MG IVPUSH ×4 (01:12→18:20)
[2022-12-14] MEDS: Heparin Sodium,Porcine 5,000 UNIT/ML VIAL 5000 UNIT SUBCUT ×4 (01:15→23:02)
--- NOTE | 2022-12-14 06:24 | PC.NURSE ---
PT A&O X3. SPEECH CLEAR, GONZALEZ WEAKLY, FOLLOWS COMMANDS. ON BOWENS NC AT 3L. BECAME VERY ANXIOUS AT AROUND 2200. RECEIVED ATIVAN 0.5MF IV WITH GOOD EFFECT. BIPAP PUT ON FOR THE NIGHT. PT WORE IT FOR 2 HOURS AND THEN REFUSED. STATED SHE WAS CLOSTROPHOBIC AND DOES NOT WEAR IT AT HOME. WANTED TO WATCH TV. BOWENS NC RE-APPLIED. O2 SATS STAYING MID 90'S. LUNGS WITH SCATTERED INS AND EXP WHEEZING. NON PROD COUGH NOTED. MONITOR SHOW SR-ST 90'S-[address] UP TO 120-130'S WITH SEVERE ANXIETY. PT HAD ANOTHER EPISODE OF SEVERE ANXIET WITH RESP DISTRESS AT 0200. PROVIDER AT BEDSIDE AND VERBALLY ORDERED TO GIVE ATIVAN 0.5 MG IV AT THAT TIME WHICH WAS EARLY IT WASN'T DUE UNTIL 0600(Q6HR PRN). THIS HELPED RELAX PT AND SHE WAS ABLE TO TAKE RESP UDN WITH GOOD EFFECT. NEXT ANXIETY EPISODE WAS AT 0600. VERY ANXIOUS, SAYING SHE CAN'T BREATH. O2 SATS DOWN TO 82%. PT THRASHING AROUND IN THE BED MOANING. DIFFICULT TO REASSURE HER AND ANOTHER DOSE OF ATIVAN 0.5 MG IV GIVEN WITH GOOD EFFECT AND ORDER WAS CHANGED BY PROVIDER TO Q4HR PRN. UDN GIVEN BY RESP. O2 SATS IMPROVEDTO 96%. PT RESTFUL AT THIS TIME. MONITOR SHOWS SR-ST, 90'S -110'S. PT INCONTINENT OF LARGE AMOUNT OF URINE. BEDBATH GIVEN AND PUREWICK IN PLACE. PUREWICK ALSO DRAINED 500 ML CLEAR YELLOW URINE.
[2022-12-14] MEDS: Piperacillin Sodium/Tazobactam 2.25 GM in 0.9 % Sodium Chloride 50 ML IV ×3 (06:41→23:02)
[2022-12-14 07:21] LABS: MANUAL DIFF FLAG NO
[2022-12-14 07:28] LABS: VBG pCO2 52 mmHg; VBG pH 7.47 (7.32-7.43)
[2022-12-14 07:28] LABS: Venous Blood Gas Refer to POC result
[2022-12-14 07:29] LABS: VBG Base Excess 13.5 mmol/L; VBG HCO3 38 mmol/L (22-26); VBG pO2 97 mmHg
[2022-12-14 07:30] LABS: Basophils Percent Auto 0.2 % (0-2); Hematocrit 29.4 % (37.0-47.0); Hemoglobin 9.1 g/dl (12.0-16.0); Imm Gran Abs Auto 0.34 X10*3/uL (0.00-0.03); Imm Gran Pct Auto 1.6 % (0.0-0.4); Lymphocytes Percent Auto 4.7 % (20-40); Mean Corpuscular Hemoglobin 28.3 pg (27.0-33.0); Mean Corpuscular Volume 91.6 fL (80.0-98.0); Mean Platelet Volume 9.1 fL (9.4-12.3); Monocytes Absolute Auto 1.3 X10*3/uL (0.1-1.2); Monocytes Percent Auto 6.3 % (2-11); NRBC Pct Auto 0.2 /100WBC (0.0-0.2); Neutrophils Absolute Auto 18.7 x10*3/uL (2.0-8.3); Neutrophils Percent Auto 87.2 % (45-73); Platelet Count 455 X10*3/uL (160-400); Red Blood Count 3.21 X10*6/uL (4.20-5.50); Red Cell Distribution Width 14.6 % (11.0-16.0); White Blood Count 21.4 X10*3/uL (4.8-10.8)
[2022-12-14 07:46] LABS: Albumin Level 3.8 g/dL (3.5-5.0); Anion Gap 16 (12-20); Blood Urea Nitrogen 62 mg/dL (9-16); Calcium 9.9 mg/dL (8.4-10.2); Carbon Dioxide 31 mmol/L (22-29); Chloride 102 mmol/L (96-108); Creatinine Clr Calc Pharmacy 17.3; Estimated Glomerular Filt Rate 13; Glucose Random 140 mg/dL (60-115); Magnesium 1.9 mg/dL (1.6-2.6); Phosphorus 4.6 mg/dL (2.7-4.5); Sodium 145 mmol/L (135-145)
--- NOTE | 2022-12-14 08:11 | P.PNCC_ITS ---
Subjective Subjective Date of Service: 12/14/22 Critical Care Time (minutes): 90 Physical Exam 2 Vital Signs: Vital Signs: Last Vital Signs Temp 97.3 F 12/13/22 23:57 Pulse 109 H 12/14/22 07:00 Resp 15 12/14/22 07:00 BP 123/72 12/14/22 07:00 Pulse Ox 95 12/14/22 07:00 O2 Del Method Nasal Cannula 12/14/22 07:00 O2 Flow Rate 4 12/14/22 07:00 FiO2 28 12/14/22 06:00 Oxygen Flow Rate 2 12/12/22 19:22 BMI result Body Mass Index 39.7 Const: General: cooperative, comfortable, no acute distress, well developed, alert and awake HEENT: Head: Yes normal to inspection, Yes normocephalic and Yes atraumatic Eyes: General: appearance normal, both eyes and all related structures Neck: Neck: Yes normal visual inspection and Yes supple Chest: Chest palpation & inspection: normal inspection of the chest Resp: Other: some paradoxical thoraco-abdominal movements, though no overt respiratory distress; decreased breath sounds throughout Cardio: Rate: regular rate GI: Inspection: Yes normal to inspection Skin: General skin exam: no rashes or lesions noted Neuro: General: moves all extremities and no focal motor deficits Extrem: General: Yes normal to inspection, Yes capillary refill normal and Yes no clubbing, cyanosis or edema Psych: Appearance: grossly normal Objective Data Labs 12/14/22 07:16 12/14/22 07:16 Labs: Laboratory Results - last 24 hr 12/13/22 12/13/22 12/13/22 17:39 17:46 17:48 WBC RBC Hgb Hct MCV MCH MCHC RDW Plt Count MPV Immature Gran % (Auto) Neut % (Auto) Lymph % (Auto) [place] % (Auto) Eos % (Auto) Baso % (Auto) Lymph # (Auto) [place] # (Auto) Eos # (Auto) Baso # (Auto) Abs Immat Gran (auto) Absolute Neuts (auto) Absolute Nucleated RBC Nucleated RBC % (auto) Hold Purple Top SEE NOTE O2 Saturation 74.0 ABG pH at Pt Temp 7.35 ABG pCO2 at Pt Temp 56 H ABG pO2 at Pt Temp 47 L* ABG HCO3 32 H ABG Base Excess (Actual) 5.4 VBG pH 7.44 H VBG pCO2 45 VBG pO2 107 VBG HCO3 31 H VBG O2 Saturation 98.0 VBG Base Excess 6.2 Sodium Potassium Chloride Carbon Dioxide Anion Gap BUN Creatinine Estim Creat Clear Calc Estimated GFR Random Glucose Calcium Phosphorus Magnesium Albumin 12/14/22 07:16 WBC 21.4 H RBC 3.21 L Hgb 9.1 L Hct 29.4 L MCV 91.6 MCH 28.3 MCHC 31.0 RDW 14.6 Plt Count 455 H MPV 9.1 L Immature Gran % (Auto) 1.6 H Neut % (Auto) 87.2 H Lymph % (Auto) 4.7 L Gilliam % (Auto) 6.3 Eos % (Auto) 0.0 Baso % (Auto) 0.2 Lymph # (Auto) 1.0 L [place] # (Auto) 1.3 H Eos # (Auto) 0.0 Baso # (Auto) 0.0 Abs Immat Gran (auto) 0.34 H Absolute Neuts (auto) 18.7 H Absolute Nucleated RBC 0.050 H Nucleated RBC % (auto) 0.2 Hold Purple Top O2 Saturation ABG pH at Pt Temp ABG pCO2 at Pt Temp ABG pO2 at Pt Temp ABG HCO3 ABG Base Excess (Actual) VBG pH 7.47 H VBG pCO2 52 VBG pO2 97 VBG HCO3 38 H VBG O2 Saturation 98.0 VBG Base Excess 13.5 Sodium 145 Potassium 4.0 D Chloride 102 Carbon Dioxide 31 H Anion Gap 16 BUN 62 H Creatinine 3.65 H Estim Creat Clear Calc 17.3 Estimated GFR 13 Random Glucose 140 H Calcium 9.9 Phosphorus 4.6 H Magnesium 1.9 Albumin 3.8 Progress Note: A&P Assessment and plan (1) Acute on chronic hypoxic respiratory failure: Status: Acute (2) Polysubstance abuse: Status: Acute Plan Patient is a 62 Y F with polysubstance use, on methadone, morbid obesity c/b LEO, COPD on 2 L, and prior lung cancer status post resection, admitted 12/12/2022 with polysubstance use c/b aspiration, acute hypoxic respiratory failure, intubated, extubated, downgraded, re-upgraded to ICU d/t dyspnea N: no acute issues CV: no acute issues R: acute hypoxic respiratory failure d/t polysubstance use, c/b aspiration, intubated, extubated; COPD on 2 L GI: no acute issues : no acute issues H: no acute issues ID: c/f aspiration pneumonia; empiric zosyn E: no acute issues P: no acute issues Quality Stroke Does the patient have a stroke diagnosis?: No VTE Prior VTE?: No VTE Risk Level:: Medical - moderate - high VTE Device Contraindication: N/A - Device Ordered VTE Drug Contraindication: N/A - Med Ordered
[2022-12-14] MEDS: clonazePAM 1 MG TABLET 2 MG PO (09:40)
[2022-12-14] MEDS: Aspirin Enteric Coated 81 MG TABLET.DR PO (09:41)
[2022-12-14] MEDS: Potassium Chloride Packet 20 MEQ PACKET 40 MEQ PO (09:41)
[2022-12-14] MEDS: Torsemide 20 MG TABLET PO ×2 (09:41→19:53)
[2022-12-14] MEDS: metOLazone 2.5 MG TABLET PO (09:41)
[2022-12-14] MEDS: carvediloL 3.125 MG TABLET PO ×2 (09:41→19:53)
[2022-12-14] MEDS: methADONE HCl 20 MG/2 ML ORAL.CONC 30 MG PO (19:53)
--- NOTE | 2022-12-14 22:41 | P.EN_ITS ---
Event Note Date of Service: 12/14/22 Event Note: Rapid response was called on the patient for hypoxemia. Upon arrival, patient was dyspneic, tachypneic and satting in the 70s on room air. Had bilateral expiratory wheezing. Placed on non-rebreather with improvement in sats. Patient was very agitated and refused an IV as per the nurse. Ordered morphine, Ativan which helped with agitation. Stat DuoNeb improved air entry. Ordered chest x-ray and ABG. ABG with respiratory acidosis. Initiated BiPAP. Spoke to catering and events manager, Dr Bynum and will transfer the patient for management of acute on chronic hypoxemic hypercapnic respiratory failure. Chest x-ray pending. Time Spent With Patient Time: Total time managing care of this patient today ____ minutes.
[2022-12-14] MEDS: LORazepam 2 MG/ML VIAL 1 MG IVPUSH (22:47)
[2022-12-14 22:55] LABS: ABG HCO3 28 mmol/L (22-26); ABG pCO2 69 mmHg (32-45); ABG pH 7.21 (7.35-7.45); ABG pO2 79 mmHg (83-108)
[2022-12-14] MEDS: Morphine Sulfate 4 MG/ML CARTRIDGE IVPUSH (22:56)
[2022-12-15] VITALS (30 sets, daily range): BP systolic 95–136; BP diastolic 62–92; PULSE 91–115; RESP 16–29; TEMP 36.7–37.2; O2SAT 4–99
[2022-12-15 00:03] LABS: Glucose, Whole Blood 112 mg/dL (60-115)
--- NOTE | 2022-12-15 00:20 | PC.NURSE ---
Pt had been anxious all night becoming agitated and yelling out constantly. RN instructed pt on how to breath to help anxiety. Pt was not cooperative. Pt was observed arguing on phone, becoming more agitated. All this time pt was in the mid 90s for oxygen saturation. At around 2230, RN was entering pts room to medicate patient. Upon entering patient was noted to have difficulty breathing, unable to speak, and oxygen saturation was dropping into the 70s. RN put up head of bed and turned oxygen up to 10L. Pt was instructed to take deep breaths. Another RN came into room and then yelled rapid response . Rapid response team responded and put patient on Bipap at 12/6 28%. PT was given 1 mg Ativan and 4 mg morphine. Pt came back up to mid 90s oxyegn saturation and is resting calmly in anticipation of ICU transfer.
--- NOTE | 2022-12-15 00:55 | PM.CCN ---
Critical Care Event Note Summary Date of Service: 12/15/22 Code activated: No Narrative: This case had a high probability of a clinically significant, sudden, or life threatening deterioration of this patient's condition which required my full and direct attention, intervention and personal management. Critical Care Time (minutes): 30 Comment: Pt transferred back to ICU from telemetry secondary to acute on chronic hypoxemic hypercapnic respiratory failure. Lethargic but arousable to light pain. Received Ativan, morphine, DuoNeb on the floor. ABG with respiratory acidosis. CXR with no significant change from previous. Initiated rescue BiPAP. Will monitor overnight and reassess in am.
[2022-12-15] MEDS: methylPREDNISolone Sod Succ 125 MG/2 ML VIAL 60 MG IVPUSH (01:29)
[2022-12-15 01:45] LABS: VBG Base Excess 8.8 mmol/L; VBG HCO3 34 mmol/L (22-26); VBG pCO2 50 mmHg; VBG pH 7.43 (7.32-7.43); VBG pO2 47 mmHg
[2022-12-15 01:51] LABS: Venous Blood Gas Refer to POC result
[2022-12-15 04:45] LABS: VBG Base Excess 10.7 mmol/L; VBG HCO3 34 mmol/L (22-26); VBG pCO2 43 mmHg; VBG pO2 65 mmHg
[2022-12-15] MEDS: LORazepam 2 MG/ML VIAL 0.5 MG IVPUSH ×3 (04:46→20:05)
[2022-12-15 04:48] LABS: Venous Blood Gas Refer to POC result
[2022-12-15 05:03] LABS: MANUAL DIFF FLAG NO
--- NOTE | 2022-12-15 05:05 | PC.NURSE ---
PATIENT RECEIVED FROM 477-1 TO 253-1 APPROX 1AM...BIPAP IN PLACE...BACL UP RATE 16...IP 12/EP 6/FIO2 28%...RR 18-24...TV 380-420...Ve 7-9 L/M...SAO2 92-94%...DROWSY BUT AWAKE TO VERBAL STIMULI...STATES I DON'T LIKE THE MASK THEN DOZES OFF...TO MAINTAIN BIPAP OVERNIGHT PER ICU RESPIRATORY CARE FACULTY AND TO TREND F/U VBG'S...INCONTINANT LARGE AMOUNT URINE AND MODERATE SOFT BROWN FORMED STOOL...PREVIOUSLY INCONTINANT LARGE AMOUNT URINE DESPITE ATTEMPTED PURWIK IN IMC AND PRIOR ICU TRANSFER..#16 FR [place] PLACED TO ALLOW ASSESSMENT OF FLUID BALANCE/OUTPUT....NSR/S.TACH HR 96-108..ISOLATED PVC...BRUISE TO LEFT BUTTOCK AND SMALL BRUISES TO BOTH FOREARMS...DOZING OVERNIGHT...AWAKE FOR AM LAB-WORK...AGITATED..LEGS OVER SIDERAIL....TACHYPNEIC....ATTEMPTING TO REMOVE BIPAP...PRN ATIVAN 0.5MG IV GIVEN 04:45 WITH RESTFUL EFFECT..BP REMAINS STABLE...CURRENTLY DOZING..RR 20...Ve 6-8 l/m...sao2 93%
[2022-12-15 05:06] LABS: Basophils Absolute Auto 0.1 X10*3/uL (0.0-0.2); Basophils Percent Auto 0.4 % (0-2); Eosinophils Percent Auto 0.1 % (0-4); Hematocrit 34.6 % (37.0-47.0); Hemoglobin 10.6 g/dl (12.0-16.0); Imm Gran Abs Auto 0.41 X10*3/uL (0.00-0.03); Imm Gran Pct Auto 2.5 % (0.0-0.4); Lymphocytes Absolute Auto 1.5 X10*3/uL (1.2-4.9); Mean Corpuscular HGB Conc 30.6 g/dl (31.0-35.0); Mean Corpuscular Hemoglobin 27.7 pg (27.0-33.0); Mean Corpuscular Volume 90.6 fL (80.0-98.0); Mean Platelet Volume 8.9 fL (9.4-12.3); Monocytes Percent Auto 5.9 % (2-11); NRBC Pct Auto 0.3 /100WBC (0.0-0.2); Neutrophils Absolute Auto 13.3 x10*3/uL (2.0-8.3); Neutrophils Percent Auto 82.1 % (45-73); Platelet Count 476 X10*3/uL (160-400); Red Blood Count 3.82 X10*6/uL (4.20-5.50); Red Cell Distribution Width 14.7 % (11.0-16.0); White Blood Count 16.2 X10*3/uL (4.8-10.8)
[2022-12-15 05:24] LABS: Albumin Level 3.9 g/dL (3.5-5.0); Anion Gap 21 (12-20); Blood Urea Nitrogen 69 mg/dL (9-16); Calcium 10.2 mg/dL (8.4-10.2); Carbon Dioxide 27 mmol/L (22-29); Chloride 101 mmol/L (96-108); Creatinine Clr Calc Pharmacy 17.3; Estimated Glomerular Filt Rate 13; Glucose Random 122 mg/dL (60-115); Phosphorus 3.3 mg/dL (2.7-4.5); Potassium 4.2 mmol/L (3.3-5.1); Sodium 145 mmol/L (135-145)
[2022-12-15] MEDS: Piperacillin Sodium/Tazobactam 2.25 GM in 0.9 % Sodium Chloride 50 ML IV ×3 (06:34→23:30)
[2022-12-15] MEDS: Albuterol/Iprat 2.5/0.5MG 3 ML AMPUL.NEB INHALE ×4 (07:33→19:32)
--- NOTE | 2022-12-15 08:51 | PM.CCPN ---
Subjective Subjective Date of Service: 12/15/22 Interval History: patient downgraded to floor; unfortunately refused non-invasive overnight; developed dyspnea, found to have respiratory acidosis, placed on BiPAP, re-admitted to ICU Critical Care Time (minutes): 90 Physical Exam Vital Signs: Vital Signs: Last Vital Signs Temp 98.4 F 12/15/22 08:00 Pulse 104 H 12/15/22 08:00 Resp 20 12/15/22 08:00 BP 128/84 12/15/22 08:00 Pulse Ox 95 12/15/22 08:00 O2 Del Method BiPAP 12/15/22 08:00 O2 Flow Rate 2 12/14/22 18:17 FiO2 28 12/15/22 08:00 Oxygen Flow Rate 2 12/12/22 19:22 BMI result Body Mass Index 39.7 Const: General: no acute distress, alert, awake and Physically active HEENT: Head: Yes normal to inspection, Yes normocephalic and Yes atraumatic Eyes: General: appearance normal, both eyes and all related structures Neck: Neck: Yes normal visual inspection, Yes no meningeal signs and Yes supple Chest: Chest palpation & inspection: normal inspection of the chest Resp: Other: decreased breath sounds throughout; no appreciable overt rales, rhonchi, wheezing Cardio: Rate: regular rate Rhythm: regular rhythm GI: Inspection: Yes normal to inspection, No Abdominal wall edema and No distended Palpation (GI): Soft to palpation, not firm, nontender, no guarding and not rigid Skin: General skin exam: no rashes or lesions noted Neuro: General: moves all extremities, no meningeal signs and no focal motor deficits Extrem: General: Yes normal to inspection, Yes capillary refill normal and Yes no clubbing, cyanosis or edema Psych: Other: intermittently agitated Objective Data Labs 12/15/22 04:35 12/15/22 04:35 Labs: Laboratory Results - last 24 hr 12/14/22 12/14/22 12/15/22 22:35 22:49 01:39 WBC RBC Hgb Hct MCV MCH MCHC RDW Plt Count MPV Immature Gran % (Auto) Neut % (Auto) Lymph % (Auto) [place] % (Auto) Eos % (Auto) Baso % (Auto) Lymph # (Auto) [place] # (Auto) Eos # (Auto) Baso # (Auto) Abs Immat Gran (auto) Absolute Neuts (auto) Absolute Nucleated RBC Nucleated RBC % (auto) O2 Saturation 89.0 ABG pH at Pt Temp 7.21 L ABG pCO2 at Pt Temp 69 H* ABG pO2 at Pt Temp 79 L ABG HCO3 28 H ABG Base Excess (Actual) -1.0 VBG pH 7.43 VBG pCO2 50 VBG pO2 47 VBG HCO3 34 H VBG O2 Saturation 75.0 VBG Base Excess 8.8 Sodium Potassium Chloride Carbon Dioxide Anion Gap BUN Creatinine Estim Creat Clear Calc Estimated GFR POC Glucose 112 Random Glucose Calcium Phosphorus Magnesium Albumin 12/15/22 12/15/22 04:35 04:40 WBC 16.2 H RBC 3.82 L Hgb 10.6 L Hct 34.6 L MCV 90.6 MCH 27.7 MCHC 30.6 L RDW 14.7 Plt Count 476 H MPV 8.9 L Immature Gran % (Auto) 2.5 H Neut % (Auto) 82.1 H Lymph % (Auto) 9.0 L [place] % (Auto) 5.9 Eos % (Auto) 0.1 Baso % (Auto) 0.4 Lymph # (Auto) 1.5 [place] # (Auto) 1.0 Eos # (Auto) 0.0 Baso # (Auto) 0.1 Abs Immat Gran (auto) 0.41 H Absolute Neuts (auto) 13.3 H Absolute Nucleated RBC 0.050 H Nucleated RBC % (auto) 0.3 H O2 Saturation ABG pH at Pt Temp ABG pCO2 at Pt Temp ABG pO2 at Pt Temp ABG HCO3 ABG Base Excess (Actual) VBG pH 7.50 H VBG pCO2 43 VBG pO2 65 VBG HCO3 34 H VBG O2 Saturation 92.0 VBG Base Excess 10.7 Sodium 145 Potassium 4.2 Chloride 101 Carbon Dioxide 27 Anion Gap 21 H BUN 69 H Creatinine 3.63 H Estim Creat Clear Calc 17.3 Estimated GFR 13 POC Glucose Random Glucose 122 H Calcium 10.2 Phosphorus 3.3 Magnesium 2.0 Albumin 3.9 Progress Note: A&P Assessment and plan (1) Polysubstance abuse: Status: Acute (2) COPD (chronic obstructive pulmonary disease): Status: Acute (3) LEO (obstructive sleep apnea): Status: Acute Plan Patient is a 62 Y F with polysubstance use, on methadone, morbid obesity c/b LEO, COPD on 2 L, and prior lung cancer status post resection, admitted 12/12/2022 with polysubstance use c/b aspiration, acute hypoxic respiratory failure, intubated, extubated, downgraded, re-upgraded to ICU d/t dyspnea N: no acute issues CV: no acute issues R: acute hypoxic respiratory failure d/t polysubstance use, c/b aspiration, intubated, extubated, downgraded, but re-upgraded d/t dyspnea, respiratory acidosis; to treat for COPD exacerbation GI: no acute issues : acute on chronic renal insufficiency; adequate urine output; of note, patient with anion-gap; no current stigmata of infection, on empiric antibiotics; to continue to monitor H: no acute issues ID: c/f aspiration pneumonia; empiric zosyn E: no acute issues P: no acute issues Quality Stroke Does the patient have a stroke diagnosis?: No VTE Prior VTE?: No VTE Risk Level:: Medical - moderate - high VTE Device Contraindication: N/A - Device Ordered VTE Drug Contraindication: N/A - Med Ordered
[2022-12-15] MEDS: Heparin Sodium,Porcine 5,000 UNIT/ML VIAL 5000 UNIT SUBCUT ×3 (09:37→23:31)
[2022-12-15 09:38] LABS: Anion Gap 19 (12-20); Blood Urea Nitrogen 76 mg/dL (9-16); Calcium 10.1 mg/dL (8.4-10.2); Carbon Dioxide 28 mmol/L (22-29); Chloride 102 mmol/L (96-108); Creatinine Clr Calc Pharmacy 17.5; Estimated Glomerular Filt Rate 13; Glucose Random 170 mg/dL (60-115); Potassium 4.2 mmol/L (3.3-5.1); Sodium 145 mmol/L (135-145)
[2022-12-15] MEDS: Aspirin Enteric Coated 81 MG TABLET.DR PO (09:48)
[2022-12-15] MEDS: carvediloL 3.125 MG TABLET PO ×2 (09:49→19:51)
[2022-12-15] MEDS: clonazePAM 1 MG TABLET 2 MG PO ×2 (09:49→19:36)
[2022-12-15] MEDS: Torsemide 20 MG TABLET PO ×2 (09:49→19:51)
--- NOTE | 2022-12-15 10:03 | HE.PHANOTE ---
RE: methadone Last dose 70mg 12/12/22 per [facility]
[2022-12-15 10:05] LABS: Appearance Urine Clear; Color Urine Yellow; Glucose Urine UA Negative (Negative); Leukocyte Esterase Urine Negative (Negative); Nitrite Urine Negative (Negative); PH 6.5 (5.0-9.0); Specific Gravity - Urine 1.015 (1.005-1.025); UMIC TRIGGER UA YES; Urine Blood Negative (Negative); Urine Ketones Negative (Negative); Urine Protein 30 (1+) mg/dL (Neg-Trace)
--- NOTE | 2022-12-15 10:06 | MHC.RECOVRN ---
Methadone verification faxed to pharmacy, last dose 70 mg on 12/12/22.
[2022-12-15 10:10] LABS: Bacteria Urine None Seen (None Seen); Hyaline Casts Urine 0-2 /LPF (0-2); RBC Urine 0-2 /HPF (0-2); Squamous Epithelial Cell Urine 0-2 /HPF (0-2); WBC Urine 0-5 /HPF (0-5)
[2022-12-15] MEDS: methADONE HCl 20 MG/2 ML ORAL.CONC 70 MG PO (11:03)
--- NOTE | 2022-12-15 11:31 | W.MHC.ACPN ---
Advanced Care Planning Note Advanced Care Planning Note Discussed with: patient Time spent (in minutes): 30 Narrative: Ms. Galeas expressed to her nurse that she would like to discuss intubation with me. Ms. Galeas stated she has had a breathing tube 5 times, and despises it. For that reason, Ms. Galeas states she does not want a breathing tube again. We also discussed CPR, which Ms. Galeas said she is not ready to make a decision regarding quite yet. Thus, her code status was changed to CPR, DNI. I asked Ms. Galeas if she would like me to communicate her decision to her partner and healthcare proxy, Kodi. I called him twice, though was unable to reach him unfortunately. Ms. Galeas's code status was changed on the EMR, and a MOLST was signed. Problems Discussed (1) Polysubstance abuse: (2) COPD (chronic obstructive pulmonary disease): (3) LEO (obstructive sleep apnea):
[2022-12-16] VITALS (27 sets, daily range): BP systolic 93–131; BP diastolic 60–87; PULSE 79–108; RESP 12–22; TEMP 36.4–37.3; O2SAT 93–99
[2022-12-16] MEDS: LORazepam 2 MG/ML VIAL 0.5 MG IVPUSH ×3 (04:40→20:04)
[2022-12-16 05:33] LABS: VBG HCO3 30 mmol/L (22-26); VBG pCO2 44 mmHg; VBG pH 7.44 (7.32-7.43); VBG pO2 66 mmHg
[2022-12-16 05:36] LABS: Venous Blood Gas Refer to POC result
[2022-12-16 06:13] LABS: Basophils Absolute Auto 0.1 X10*3/uL (0.0-0.2); Basophils Percent Auto 0.3 % (0-2); Hematocrit 34.9 % (37.0-47.0); Hemoglobin 10.8 g/dl (12.0-16.0); Imm Gran Abs Auto 0.37 X10*3/uL (0.00-0.03); Imm Gran Pct Auto 2.2 % (0.0-0.4); Lymphocytes Absolute Auto 2.7 X10*3/uL (1.2-4.9); Lymphocytes Percent Auto 15.9 % (20-40); MANUAL DIFF FLAG SCAN; Mean Corpuscular HGB Conc 30.9 g/dl (31.0-35.0); Mean Corpuscular Hemoglobin 28.3 pg (27.0-33.0); Mean Corpuscular Volume 91.4 fL (80.0-98.0); Mean Platelet Volume 9.2 fL (9.4-12.3); Monocytes Absolute Auto 1.7 X10*3/uL (0.1-1.2); Monocytes Percent Auto 9.8 % (2-11); NRBC Pct Auto 0.5 /100WBC (0.0-0.2); Neutrophils Absolute Auto 12.3 x10*3/uL (2.0-8.3); Neutrophils Percent Auto 71.8 % (45-73); Platelet Count 468 X10*3/uL (160-400); Red Blood Count 3.82 X10*6/uL (4.20-5.50); Red Cell Distribution Width 14.6 % (11.0-16.0); SCAN SMEAR FLAG 1; White Blood Count 17.1 X10*3/uL (4.8-10.8)
[2022-12-16 06:45] LABS: Albumin Level 3.8 g/dL (3.5-5.0); Anion Gap 21 (12-20); Blood Urea Nitrogen 85 mg/dL (9-16); Carbon Dioxide 27 mmol/L (22-29); Chloride 99 mmol/L (96-108); Creatinine Clr Calc Pharmacy 15.6; Estimated Glomerular Filt Rate 11; Glucose Random 161 mg/dL (60-115); Phosphorus 4.3 mg/dL (2.7-4.5); Potassium 3.7 mmol/L (3.3-5.1); Sodium 143 mmol/L (135-145)
[2022-12-16] MEDS: Piperacillin Sodium/Tazobactam 2.25 GM in 0.9 % Sodium Chloride 50 ML IV ×3 (06:52→23:08)
[2022-12-16] MEDS: Albuterol/Iprat 2.5/0.5MG 3 ML AMPUL.NEB INHALE ×4 (07:18→20:15)
[2022-12-16 07:44] LABS: SLIDE REVIEW VERIFIED
[2022-12-16] MEDS: methADONE HCl 20 MG/2 ML ORAL.CONC 70 MG PO (08:02)
[2022-12-16] MEDS: methylPREDNISolone 4 MG TABLET 40 MG PO (08:02)
[2022-12-16] MEDS: Heparin Sodium,Porcine 5,000 UNIT/ML VIAL 5000 UNIT SUBCUT ×3 (08:02→23:08)
[2022-12-16] MEDS: metOLazone 2.5 MG TABLET PO (08:03)
[2022-12-16] MEDS: Torsemide 20 MG TABLET PO ×2 (08:03→20:04)
[2022-12-16] MEDS: clonazePAM 1 MG TABLET 2 MG PO ×2 (08:03→20:04)
[2022-12-16] MEDS: carvediloL 3.125 MG TABLET PO ×2 (08:03→20:04)
[2022-12-16] MEDS: Aspirin Enteric Coated 81 MG TABLET.DR PO (08:03)
--- NOTE | 2022-12-16 08:21 | P.PNCC_ITS ---
Subjective Subjective Date of Service: 12/16/22 Interval History: no significant overnight events; refused CPAP Critical Care Time (minutes): 60 Physical Exam 2 Vital Signs: Vital Signs: Last Vital Signs Temp 99.1 F 12/16/22 08:00 Pulse 91 12/16/22 08:00 Resp 16 12/16/22 08:00 BP 110/61 12/16/22 08:00 Pulse Ox 96 12/16/22 08:00 O2 Del Method Nasal Cannula 12/16/22 08:00 O2 Flow Rate 2 12/16/22 08:00 FiO2 28 12/15/22 09:00 Oxygen Flow Rate 2 12/12/22 19:22 BMI result Body Mass Index 39.7 Const: General: comfortable, no acute distress and well developed O rientation/consciousness: patient oriented x3 HEENT: Head: Yes normal to inspection, Yes normocephalic and Yes atraumatic Eyes: General: appearance normal, both eyes and all related structures Neck: Neck: Yes normal visual inspection, Yes no meningeal signs and Yes supple Chest: Chest palpation & inspection: normal inspection of the chest Resp: Other: decreased breath sounds throughout Cardio: Rate: regular rate Rhythm: regular rhythm GI: Inspection: Yes normal to inspection and No Abdominal wall edema P alpation (GI): Soft to palpation, not firm, nontender, no guarding and not rigid Skin: General skin exam: no rashes or lesions noted Neuro: General: patient oriented x3, moves all extremities, no meningeal signs and no focal motor deficits Extrem: General: Yes normal to inspection and Yes no clubbing, cyanosis or edema Psych: Other: intermittent agitation Objective Data Labs 12/16/22 05:27 12/16/22 05:27 Labs: Laboratory Results - last 24 hr 12/15/22 12/15/22 12/16/22 09:04 09:44 05:27 WBC 17.1 H RBC 3.82 L Hgb 10.8 L Hct 34.9 L MCV 91.4 MCH 28.3 MCHC 30.9 L RDW 14.6 Plt Count 468 H MPV 9.2 L Immature Gran % (Auto) 2.2 H Neut % (Auto) 71.8 Lymph % (Auto) 15.9 L [place] % (Auto) 9.8 Eos % (Auto) 0.0 Baso % (Auto) 0.3 Lymph # (Auto) 2.7 [place] # (Auto) 1.7 H Eos # (Auto) 0.0 Baso # (Auto) 0.1 Abs Immat Gran (auto) 0.37 H Absolute Neuts (auto) 12.3 H Absolute Nucleated RBC 0.080 H Nucleated RBC % (auto) 0.5 H Smear Tech's Comments VERIFIED Hold Purple Top SEE NOTE VBG pH 7.44 H VBG pCO2 44 VBG pO2 66 VBG HCO3 30 H VBG O2 Saturation 90.0 VBG Base Excess 6.0 Sodium 145 143 Potassium 4.2 3.7 Chloride 102 99 Carbon Dioxide 28 27 Anion Gap 19 21 H BUN 76 H 85 H Creatinine 3.60 H 4.03 H* Estim Creat Clear Calc 17.5 15.6 Estimated GFR 13 11 Random Glucose 170 H 161 H Lactic Acid 1.0 Calcium 10.1 10.0 Phosphorus 4.3 Magnesium 2.0 Albumin 3.8 Urine Color Yellow Urine Appearance Clear Urine pH 6.5 Ur Specific [place] 1.015 Urine Protein 30 (1+) H Urine Glucose (UA) Negative Urine Ketones Negative Urine Blood Negative Urine Nitrite Negative Ur Leukocyte Esterase Negative Urine RBC 0-2 Urine WBC 0-5 Ur Squamous Epith Cells 0-2 Urine Bacteria None Seen Hyaline Casts 0-2 Progress Note: A&P Assessment and plan (1) Polysubstance abuse: Status: Acute (2) Acute exacerbation of chronic obstructive pulmonary disease: Status: Acute (3) CKD (chronic kidney disease) stage 4, GFR 15-29 ml/min: Status: Acute (4) Acute on chronic hypoxic respiratory failure: Status: Acute Plan Patient is a 62 Y F with polysubstance use, on methadone, morbid obesity c/b LEO, COPD on 2 L, and prior lung cancer status post resection, admitted 12/12/2022 with polysubstance use c/b aspiration, acute hypoxic respiratory failure, intubated, extubated, downgraded, re-upgraded to ICU d/t dyspnea N: no acute issues CV: no acute issues R: acute hypoxic respiratory failure d/t polysubstance use, c/b aspiration, intubated, extubated, downgraded, but re-upgraded d/t dyspnea, respiratory acidosis; to continue treat for COPD exacerbation GI: no acute issues : acute on chronic renal insufficiency; adequate urine output; of note, patient with anion-gap; no current stigmata of infection, on empiric antibiotics; to continue to monitor H: no acute issues ID: c/f aspiration pneumonia; empiric zosyn E: no acute issues P: intermittent agitation S: of note, Ms. Galeas is intermittently compliant with medical care; extensive conversation had with Ms. Galeas and her partner, Kodi, regarding this; to have daily discussions regarding next steps in her philosophy of care Quality Stroke Does the patient have a stroke diagnosis?: No VTE Prior VTE?: No VTE Risk Level:: Medical - moderate - high VTE Device Contraindication: N/A - Device Ordered VTE Drug Contraindication: N/A - Med Ordered
--- NOTE | 2022-12-16 09:48 | MHC.CLN ---
F/U DISCUSSED AT ROUNDS WITH PT WITH VERY POOR PO RECOMMEND LIBERALIZING DIET TO REGULAR MECH SOFT GRD TO INCREASE VARIETY AND PROMOTE PO MONITOR PO INTAKE CLOSELY
[2022-12-17] VITALS (11 sets, daily range): BP systolic 119–147; BP diastolic 56–87; PULSE 82–104; RESP 16–20; TEMP 36.2–37.2; O2SAT 92–97
[2022-12-17] MEDS: Benzonatate 100 MG CAPSULE 200 MG PO (00:04)
[2022-12-17] MEDS: LORazepam 2 MG/ML VIAL 0.5 MG IVPUSH (00:08)
[2022-12-17] MEDS: Piperacillin Sodium/Tazobactam 2.25 GM in 0.9 % Sodium Chloride 50 ML IV (06:07)
[2022-12-17] MEDS: Albuterol/Iprat 2.5/0.5MG 3 ML AMPUL.NEB INHALE ×4 (08:19→19:51)
[2022-12-17] MEDS: Heparin Sodium,Porcine 5,000 UNIT/ML VIAL 5000 UNIT SUBCUT ×3 (08:35→23:01)
[2022-12-17] MEDS: methylPREDNISolone Sod Succ 40 MG/ML VIAL IVPUSH (08:35)
[2022-12-17] MEDS: carvediloL 3.125 MG TABLET PO ×2 (08:36→19:59)
[2022-12-17] MEDS: Torsemide 20 MG TABLET PO ×2 (08:36→19:59)
[2022-12-17] MEDS: methADONE HCl 20 MG/2 ML ORAL.CONC 70 MG PO (08:36)
[2022-12-17] MEDS: Aspirin Enteric Coated 81 MG TABLET.DR PO (08:36)
--- NOTE | 2022-12-17 13:24 | HO.PM.IMPN ---
Subjective Subjective Date of Service: 12/18/22 Interval History: Pt was transfered from ICU overnight. Her breathing seems to be stable at this point. She awake and alert and breathing without effor Physical Exam Vital Signs: Vital Signs: Last Vital Signs Temp 97.3 F 12/17/22 11:16 Pulse 87 12/17/22 11:38 Resp 20 12/17/22 11:38 BP 119/87 12/17/22 11:16 Pulse Ox 95 12/17/22 11:16 O2 Del Method Nasal Cannula 12/17/22 11:16 O2 Flow Rate 2 12/17/22 11:16 FiO2 28 12/16/22 22:00 Oxygen Flow Rate 2 12/12/22 19:22 BMI result Body Mass Index 39.7 Const: Other: General: AO X 3, no acute distress Resp: CTA bilateral CVS: S1,S2,RRR GI: +BS, NT, no distention Skin: No rash Neuro: motor grossly intact Psych: appropriate affect Objective Data Active Medications Albuterol/Ipratropium (Albuterol/Iprat 2.5/0.5mg 3 Ml Ampul.Neb) 3 ml INHALE RQ4H WHILE AWAKE [facility] Last Admin: 12/17/22 11:35 Dose: 3 ml Documented By: CHARLENE Albuterol/Ipratropium (Albuterol/Iprat 2.5/0.5mg 3 Ml Ampul.Neb) 3 ml INHALE Q4H PRN PRN Reason: Wheezing Aspirin (Aspirin Enteric Coated 81 Mg Tablet.) 81 mg PO DAILY [facility] Last Admin: 12/17/22 08:36 Dose: 81 mg Documented By: BROB Benzonatate (Benzonatate 100 Mg Capsule) 200 mg PO TID PRN PRN Reason: Cough Last Admin: 12/17/22 00:04 Dose: 200 mg Documented By: KAROLYN Carvedilol (Carvedilol 3.125 Mg Tablet) 3.125 mg PO BID [facility]; Protocol Last Admin: 12/17/22 08:36 Dose: 3.125 mg Documented By: JULIÁN Clonazepam (Clonazepam 1 Mg Tablet) 2 mg PO BID PRN PRN Reason: Anxiety Last Admin: 12/16/22 20:04 Dose: 2 mg Documented By: SIMA Heparin Sodium (Porcine) (Heparin Sodium,Porcine 5,000 Unit/Ml Vial) 5,000 unit SUBCUT Q8H [facility] Last Admin: 12/17/22 08:35 Dose: 5,000 unit Documented By: JULIÁN Piperacillin Sod/Tazobactam (Sod 2.25 gm/ Sodium Chloride) 50 mls @ 100 mls/hr IV Q8H [facility] Stop: 12/17/22 22:59 Last Infusion: 12/17/22 08:48 Dose: Infused Documented By: JULIÁN Lorazepam (Lorazepam 2 Mg/Ml Vial) 0.5 mg IVPUSH Q4H PRN PRN Reason: Anxiety Last Admin: 12/17/22 00:08 Dose: 0.5 mg Documented By: KAROLYN Methadone HCl (Methadone Hcl 20 Mg/2 Ml Oral.Conc) 70 mg PO DAILY [facility] Last Admin: 12/17/22 08:36 Dose: 70 mg Documented By: JULIÁN Methylprednisolone Sodium Succinate (Methylprednisolone Sod Succ 40 Mg/Ml Vial) 40 mg IVPUSH Q24H [facility] Last Admin: 12/17/22 08:35 Dose: 40 mg Documented By: JULIÁN Metolazone (Metolazone 2.5 Mg Tablet) 2.5 mg PO MOWEFR@0900 [facility] Last Admin: 12/16/22 08:03 Dose: 2.5 mg Documented By: YADIEL Torsemide (Torsemide 20 Mg Tablet) 20 mg PO BID [facility]; Protocol Last Admin: 12/17/22 08:36 Dose: 20 mg Documented By: JULIÁN Labs 12/16/22 05:27 12/18/22 10:30 Assessment and Plan (1) Acute on chronic hypoxic respiratory failure: Status: Acute Plan Patient is a 62 Y F with polysubstance use, on methadone, morbid obesity, LEO, chronic respiratory failure d/t COPD on 2 L, and prior lung cancer status post resection, admitted 12/12/2022 with polysubstance use leading to aspiration and acute hypoxic respiratory failure, she was intubated, extubated and transfer to medical floor and twice had to be transfered back to ICU Acute on chronic hypoxic respiratory failure due to copd and heart failure overall better. continue treatment of underlying issues End stage copd with acute exacerbation--Transition to PO steroid, continue bronchodilators. Pulmonology recommends bipapa at night. Aspiration pneumonia--has been on Zosyn since 12/12, transition to Augmentin HTN continue coreg CKD 4, monitor nephrology consult if worse LEO, chronic cpap or bipapa at night obesity. BMI 39 weight loss opiate dependence continue methadone HFpEF no exacerbation continue torsemide and Metolazone Hx lung ca outpatient follow up dvt prophylaxis - heparin doesn't want to be intubated but will use bipap Quality Stroke Does the patient have a stroke diagnosis?: No VTE Prior VTE?: No VTE Risk Level:: Medical - moderate - high VTE Device Contraindication: N/A - Device Ordered VTE Drug Contraindication: N/A - Med Ordered
--- NOTE | 2022-12-17 13:33 | MHC.CM.PN ---
CM met with pt. to confirm prior services, nurse from [facility], and a [facility] [facility] from [facility]. Pt has home O2, she lives with her boyfriend. She has been to [facility] several times. DC plan uncertain at this time. CM to follow and assist with DC plan.
[2022-12-17] MEDS: predniSONE 20 MG TABLET PO (16:39)
--- NOTE | 2022-12-17 16:45 | PM.PNPUL ---
Subjective Subjective Date of Service: 12/17/22 Principal diagnosis: respiratory failure Interval history: This 62 years old female, his known case of morbid obesity/chronic obstructive sleep apnea/respiratory failure, has been admitted since 12/12 with acute exacerbation of COPD and respiratory failure. She has history of poly substance abuse, and her admission was prompted most likely by aspiration . Initially treated with intubation and vent support overnight then successfully extubated. She transferred to [facility] and read transferred to ICU with acute respiratory distress , and now has been transferred back to the [facility]. It should be noted that patient is not able to use CPAP or bypass in the past, she has been on O2 2 L/minute. Continuously She does have evidence of acute on chronic respiratory failure with hypercapnia and hypoxemia . Patient also has had lung cancer right middle lobe resected in 2019. She has past history of smoking quit in 2019. She has history of substance abuse and currently on methadone. She also has chronic anxiety and depression. She remains quite dyspneic, not able to get out of bed and ambulate by herself. She does have BiPAP on the bedside but not able to use it. Objective Data Labs 12/16/22 05:27 12/16/22 05:27 Physical Exam Vital Signs: Vital Signs: Last Vital Signs Temp 97.5 F 12/17/22 15:53 Pulse 98 12/17/22 15:53 Resp 16 12/17/22 15:53 BP 119/76 12/17/22 15:53 Pulse Ox 95 12/17/22 15:53 O2 Del Method Nasal Cannula 12/17/22 15:53 O2 Flow Rate 2 12/17/22 15:53 FiO2 28 12/16/22 22:00 Oxygen Flow Rate 2 12/12/22 19:22 BMI result Body Mass Index 39.7 I have examined her today and she is quite anxious, she is moderately dyspneic even with oxygen 2 L/minute by nasal cannula. Throat is narrow and crowded but clear. Neck is short and obese no obvious jugular. Venous distention Chest : Symmetrical no deformity,No local tenderness Lungs : Percussion note is not perceptible because of thick chest wall Breath sounds are distant. With prolonged expiratory phase She has a few expiratory wheezes on both sides. Cardiovascular: Regular sinus rhythm, PMI is not palpable, no murmurs. Abdomen, . Obese but soft and nontender Extremities, no pitting edema. There is generalized weakness Procedures Date of Service Date of Service: 12/17/22 Assessment and Plan Assessment and plan (1) Acute exacerbation of chronic obstructive pulmonary disease: Problem details: Acute exacerbation of chronic obstructive pulmonary disease probably due to increased secretions which she cannot expectorate. TX Continue DuoNeb updrafts q.i.d. and Breo-100 1 inhalation daily. Prednisone 20 mg b.i.d. for 7 days. Mucinex 600 mg b.i.d. also prescribed. Status: Acute (2) COPD (chronic obstructive pulmonary disease): Problem details: PATIENT HAS LONG-STANDING HISTORY OF CHRONIC OBSTRUCTIVE PULMONARY DISEASE PRIMARILY DUE TO HER LONG TIME SMOKING, BUT QUIT EARLIER THIS YEAR. TX: UNDER COPD EXACERBATION Status: Acute (3) Lung cancer: Problem details: (Adenocarcinoma RML Dx 02/20/2019 - s/p SBRT complete 05/19/2019) Treatment has been successful, the neoplastic nodule seems to have resolved. Last CT scan of the chest performed at [facility] in September 2020, showed that there was no residual mass. This patient has lost follow-up at [facility]. Status: Acute (4) LEO (obstructive sleep apnea): Problem details: SHE HAS HAD HISTORY OF LEO/CHRONIC HYPOVENTILATION SYNDROME. NOW THAT SHE IS IN HOSPITAL, I RECOMMEND THAT WE SHOULD TRY TO HAVE HER USE BIPAP, 16/8 CMs AT NIGHT. I TOLD HER THAT EVEN IF SHE CAN USE FOR A FEW HOURS THAT WILL BE HELPFUL. IF SHE STILL CANNOT THAN WHEEZES KEEP HER ON O2 2 L/MINUTE. Status: Acute (5) Restrictive lung disease: Problem details: SHE HAS SIGNIFICANT DEGREE OF RESTRICTIVE PULMONARY DISORDER, PRIMARILY DUE TO MORBID OBESITY. ADVISE THAT SHE SHOULD CONTINUE TO DO DEEP BREATHING EXERCISES BEFORE. Status: Acute (6) Methadone maintenance therapy patient: Status: Acute Time Spent With Patient Time: Total time managing care of this patient today ____ minutes. Progress Note: Quality Stroke Does the patient have a stroke diagnosis?: No
[2022-12-17] MEDS: clonazePAM 1 MG TABLET 2 MG PO (19:59)
[2022-12-17] MEDS: Amoxicillin/Potassium Clav 875 MG TABLET PO (19:59)
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
[2022-12-18] VITALS (7 sets, daily range): BP systolic 119–169; BP diastolic 73–88; PULSE 66–97; RESP 16–24; TEMP 36.1–36.9; O2SAT 93–95
[2022-12-18] MEDS: metOLazone 2.5 MG TABLET PO (07:47)
[2022-12-18] MEDS: Heparin Sodium,Porcine 5,000 UNIT/ML VIAL 5000 UNIT SUBCUT ×3 (07:47→23:38)
[2022-12-18] MEDS: predniSONE 20 MG TABLET PO ×2 (07:48→17:41)
[2022-12-18] MEDS: Amoxicillin/Potassium Clav 875 MG TABLET PO ×2 (07:48→20:14)
[2022-12-18] MEDS: Torsemide 20 MG TABLET PO ×2 (07:48→20:15)
[2022-12-18] MEDS: carvediloL 3.125 MG TABLET PO ×2 (07:48→20:15)
[2022-12-18] MEDS: Aspirin Enteric Coated 81 MG TABLET.DR PO (07:48)
[2022-12-18] MEDS: methADONE HCl 20 MG/2 ML ORAL.CONC 70 MG PO (07:49)
[2022-12-18 10:54] LABS: Anion Gap 20 (12-20); Blood Urea Nitrogen 112 mg/dL (9-16); Calcium 10.1 mg/dL (8.4-10.2); Carbon Dioxide 28 mmol/L (22-29); Chloride 96 mmol/L (96-108); Creatinine Clr Calc Pharmacy 14.5; Estimated Glomerular Filt Rate 10; Glucose Random 148 mg/dL (60-115); Sodium 140 mmol/L (135-145)
--- NOTE | 2022-12-18 12:07 | HO.PM.IMPN ---
Subjective Subjective Date of Service: 12/18/22 Interval History: Little sob today, but awake, alert no distress Physical Exam Vital Signs: Vital Signs: Last Vital Signs Temp 97.5 F 12/18/22 11:11 Pulse 66 12/18/22 11:11 Resp 20 12/18/22 11:11 BP 125/74 12/18/22 11:11 Pulse Ox 93 12/18/22 11:11 O2 Del Method Nasal Cannula 12/18/22 11:11 O2 Flow Rate 2 12/18/22 11:11 FiO2 28 12/16/22 22:00 Oxygen Flow Rate 2 12/12/22 19:22 BMI result Body Mass Index 39.7 Objective Data Active Medications Albuterol/Ipratropium (Albuterol/Iprat 2.5/0.5mg 3 Ml Ampul.Neb) 3 ml INHALE RQ4H WHILE AWAKE [facility] Last Admin: 12/18/22 11:50 Dose: Not Given Documented By: MORGAN Non-Admin Reason: Patient Refused Albuterol/Ipratropium (Albuterol/Iprat 2.5/0.5mg 3 Ml Ampul.Neb) 3 ml INHALE Q4H PRN PRN Reason: Wheezing Amoxicillin/Clavulanate Potassium (Amoxicillin/Potassium Clav 875 Mg Tablet) 875 mg PO BID [facility] Last Admin: 12/18/22 07:48 Dose: 875 mg Documented By: HASEEB Aspirin (Aspirin Enteric Coated 81 Mg Tablet.) 81 mg PO DAILY [facility] Last Admin: 12/18/22 07:48 Dose: 81 mg Documented By: HASEEB Benzonatate (Benzonatate 100 Mg Capsule) 200 mg PO TID PRN PRN Reason: Cough Last Admin: 12/17/22 00:04 Dose: 200 mg Documented By: KAROLYN Carvedilol (Carvedilol 3.125 Mg Tablet) 3.125 mg PO BID [facility]; Protocol Last Admin: 12/18/22 07:48 Dose: 3.125 mg Documented By: HASEEB Clonazepam (Clonazepam 1 Mg Tablet) 2 mg PO BID PRN PRN Reason: Anxiety Last Admin: 12/17/22 19:59 Dose: 2 mg Documented By: HILDA Heparin Sodium (Porcine) (Heparin Sodium,Porcine 5,000 Unit/Ml Vial) 5,000 unit SUBCUT Q8H [facility] Last Admin: 12/18/22 07:47 Dose: 5,000 unit Documented By: HASEEB Lorazepam (Lorazepam 2 Mg/Ml Vial) 0.5 mg IVPUSH Q4H PRN PRN Reason: Anxiety Last Admin: 12/17/22 00:08 Dose: 0.5 mg Documented By: KAROLYN Methadone HCl (Methadone Hcl 20 Mg/2 Ml Oral.Conc) 70 mg PO DAILY [facility] Last Admin: 12/18/22 07:49 Dose: 70 mg Documented By: HASEEB Metolazone (Metolazone 2.5 Mg Tablet) 2.5 mg PO MOWEFR@0900 [facility] Last Admin: 12/18/22 07:47 Dose: 2.5 mg Documented By: HASEEB Prednisone (Prednisone 20 Mg Tablet) 20 mg PO BIDWM [facility] Last Admin: 12/18/22 07:48 Dose: 20 mg Documented By: HASEEB Torsemide (Torsemide 20 Mg Tablet) 20 mg PO BID [facility]; Protocol Last Admin: 12/18/22 07:48 Dose: 20 mg Documented By: HASEEB Labs 12/16/22 05:27 12/18/22 10:30 Labs: Laboratory Results - last 24 hr 12/18/22 10:30 Anion Gap 20 Estim Creat Clear Calc 14.5 Estimated GFR 10 Random Glucose 148 H Calcium 10.1 Assessment and Plan (1) Acute on chronic hypoxic respiratory failure: Status: Acute Plan Patient is a 62 Y F with polysubstance use, on methadone, morbid obesity, LEO, chronic respiratory failure d/t COPD on 2 L, and prior lung cancer status post resection, admitted 12/12/2022 with polysubstance use leading to aspiration and acute hypoxic respiratory failure, she was intubated, extubated and transfer to medical floor and twice had to be transfered back to ICU Acute on chronic hypoxic respiratory failure due to copd and heart failure overall better. continue treatment of underlying issues, keep O2 88 to 92 End stage copd with acute exacerbation--Transitioned to PO steroid, continue bronchodilators. Pulmonology recommends bipapa at night and prn during the day Aspiration pneumonia--has been on Zosyn since 12/12, transition to Augmentin on 12/17 HTN continue coreg CKD 4, monitor nephrology consult if worse LEO, chronic cpap or bipapa at night obesity. BMI 39 weight loss opiate dependence continue methadone HFpEF no exacerbation continue torsemide and Metolazone Hx lung ca outpatient follow up severe decondition--PT eval with recommendation for [facility] dvt prophylaxis - heparin doesn't want to be intubated but will use bipap Quality Stroke Does the patient have a stroke diagnosis?: No VTE Prior VTE?: No VTE Risk Level:: Medical - moderate - high VTE Device Contraindication: N/A - Device Ordered VTE Drug Contraindication: N/A - Med Ordered
--- NOTE | 2022-12-18 14:12 | MHC.CM.PN ---
PT rec [facility], pt.'s first choice was [facility], she has been there before, they declined, referrals into [place] [facility], they are following.
--- NOTE | 2022-12-18 17:02 | PM.CNNEP ---
History of Present Illness Reason for Consult Consult date: 12/18/22 Reason for consult: JOAN on CKD Chief Complaint Chief complaint: Dyspnea History of Present Illness Narrative: 62 Y F with polysubstance use, on methadone, morbid obesity, LEO, chronic respiratory failure d/t COPD on 2 L, and prior lung cancer status post resection, admitted 12/12/2022 with polysubstance use leading to aspiration and acute hypoxic respiratory failure. she was intubated, extubated and transfer to medical floor and twice had to be transfered back to ICU. Has developed JOAN on CKD during her hospital stay. Nephrology has been consulted to assist in her clinical care during her current hospital stay. [facility] Past Medical History Medical History (Updated 12/18/22 @ 17:08 by Donny Flowers MD) JOAN (acute kidney injury) Respiratory failure with hypoxia and hypercapnia Acute exacerbation of chronic obstructive pulmonary disease Tremor of both hands Ambulates with cane Seasonal allergies Herpes zoster Post covid-19 condition, unspecified COPD (chronic obstructive pulmonary disease) Osteopenia (~2017) Obesity Respiratory failure COVID-19 (~03/2021) Osteoarthritis of ankles, bilateral Olecranon bursitis of left elbow Tubulovillous adenoma of large intestine (~2020) Hx of cardiac arrest (~2015) O2 dependent Methadone maintenance therapy patient History of claustrophobia History of seizure Anxiety and depression HTN (hypertension) Multiple fractures of ribs Anemia in chronic kidney disease Vitamin D deficiency Family history of colon cancer CKD (chronic kidney disease) stage 4, GFR 15-29 ml/min Dyslipidemia Restrictive lung disease Lung cancer (~2019) LEO (obstructive sleep apnea) Family History Family History Father Diabetes mellitus Mother Depression Mental health disorder Maternal Grandfather Colon cancer Sister No problems noted. Son No problems noted. Daughter No problems noted. Daughter No problems noted. Surgical History Surgical History Hx of tracheostomy History of esophagogastroduodenoscopy (EGD) (~2021) History of removal of ureteral stent (~2013) History of lung biopsy (~2019) History of colonoscopy (~2020) Umbilical hernia History of laparoscopy (~2012) History of hand surgery History of tubal ligation Social History Social History Household Members: Unknown / Unable to assess Housing: House Housing Other:: mobile home Are you a primary home care administrator to a significant other at home: No Do you presently have visiting nurse or other home services: Yes ([facility] daily) Unable to assess alcohol history related to: Unable to respond Alcohol intake: never Patient Tobacco Use Status: Former Tobacco user Quit Date: 2006 Tobacco use type: Cigarette Years Smoked: 25 yrs Smoked in Last 30 Days: No e-Cigarette/Vaping Use: Never Used Use of substances other than those prescribed or required for medical reasons: Unable to respond Substance Use Type: Former Substance User and Heroin Currently Displaying Signs/Symptoms of Drug Intoxication Withdrawal: No Advance Directives: Yes Advance Directives on File: Yes Advance Directives Date on File: 03/21/21 Do you have thoughts of harming others: None Do you have a plan to hurt others: No Plan Recently lost weight without trying: Unsure Nutrition Risks: On aspiration precautions Patient : No service: No Current occupational status: unemployed and disabled Cognitive needs: No Hearing needs: No Vision needs: No Meds Allergies Allergy/AdvReac Type Severity Reaction Status Date / Time ciprofloxacin [From Cipro] Allergy Severe HIVES/SWELLING, Verified 12/09/22 16:09 THROAT CLOSES shellfish derived Allergy Intermediate Vomiting Verified 12/09/22 16:09 [SHELLFISH DERIVED] NSAIDS (Non-Steroidal AdvReac Severe Avoid due Verified 12/09/22 16:09 Anti-Inflamma to kidney disease Active Medications: Current Medications Albuterol/Ipratropium (Albuterol/Iprat 2.5/0.5mg 3 Ml Ampul.Neb) 3 ml INHALE RQ4H WHILE AWAKE [facility] Last Admin: 12/18/22 16:13 Dose: Not Given Albuterol/Ipratropium (Albuterol/Iprat 2.5/0.5mg 3 Ml Ampul.Neb) 3 ml INHALE Q4H PRN PRN Reason: Wheezing Amoxicillin/Clavulanate Potassium (Amoxicillin/Potassium Clav 875 Mg Tablet) 875 mg PO BID [facility] Last Admin: 12/18/22 07:48 Dose: 875 mg Aspirin (Aspirin Enteric Coated 81 Mg Tablet.) 81 mg PO DAILY [facility] Last Admin: 12/18/22 07:48 Dose: 81 mg Benzonatate (Benzonatate 100 Mg Capsule) 200 mg PO TID PRN PRN Reason: Cough Last Admin: 12/17/22 00:04 Dose: 200 mg Carvedilol (Carvedilol 3.125 Mg Tablet) 3.125 mg PO BID [facility]; Protocol Last Admin: 12/18/22 07:48 Dose: 3.125 mg Clonazepam (Clonazepam 1 Mg Tablet) 2 mg PO BID PRN PRN Reason: Anxiety Last Admin: 12/17/22 19:59 Dose: 2 mg Heparin Sodium (Porcine) (Heparin Sodium,Porcine 5,000 Unit/Ml Vial) 5,000 unit SUBCUT Q8H [facility] Last Admin: 12/18/22 07:47 Dose: 5,000 unit Lorazepam (Lorazepam 2 Mg/Ml Vial) 0.5 mg IVPUSH Q4H PRN PRN Reason: Anxiety Last Admin: 12/17/22 00:08 Dose: 0.5 mg Methadone HCl (Methadone Hcl 20 Mg/2 Ml Oral.Conc) 70 mg PO DAILY [facility] Last Admin: 12/18/22 07:49 Dose: 70 mg Metolazone (Metolazone 2.5 Mg Tablet) 2.5 mg PO MOWEFR@0900 [facility] Last Admin: 12/18/22 07:47 Dose: 2.5 mg Prednisone (Prednisone 20 Mg Tablet) 20 mg PO BIDWM [facility] Last Admin: 12/18/22 07:48 Dose: 20 mg Torsemide (Torsemide 20 Mg Tablet) 20 mg PO BID [facility]; Protocol Last Admin: 12/18/22 07:48 Dose: 20 mg Home Medications Medication Instructions Recorded Confirmed Last Taken Type acetaminophen 325 mg tablet 650 mg PO Q6H PRN Pain 07/24/21 12/13/22 Unknown History calcitriol 0.25 mcg capsule 0.25 mcg PO DAILY 12/17/21 12/13/22 12/12/22 History methadone 10 mg/mL oral concentrate 70 mg PO DAILY 05/22/22 12/15/22 12/12/22 History fluticasone propionate 50 1 spray intranasal DAILY 10/01/22 12/13/22 12/12/22 History mcg/actuation nasal spray,suspension clonazepam 1 mg tablet 1 mg PO BID PRN Anxiety 12/13/22 12/13/22 Unknown History gabapentin 100 mg capsule 100 mg PO BID PRN neuropathy 12/13/22 12/13/22 Unknown History hydroxyzine pamoate 100 mg capsule 100 mg PO BEDTIME PRN insomnia 12/13/22 12/13/22 Unknown History metolazone 2.5 mg tablet 2.5 mg PO MOWEFR@0900 12/13/22 12/13/22 12/11/22 History torsemide 20 mg tablet 20 mg PO BID 12/13/22 12/13/22 12/12/22 09:00 History Physical Exam Vital Signs: Last Vital Signs Temp 97.5 F 12/18/22 11:11 Pulse 66 12/18/22 11:11 Resp 20 12/18/22 11:11 BP 125/74 12/18/22 11:11 Pulse Ox 93 12/18/22 11:11 O2 Del Method Nasal Cannula 12/18/22 11:11 O2 Flow Rate 2 12/18/22 11:11 FiO2 28 12/16/22 22:00 Oxygen Flow Rate 2 12/12/22 19:22 BMI result Body Mass Index 39.7 Const General: no acute distress Eyes EOM: EOMs intact bilaterally Neck Neck: Yes supple Resp Auscultation: bronchial breath sounds Cardio Jugular venous distension: no JVD Rate: regular rate GI Palpation (GI): Soft to palpation Neuro General: moves all extremities Results Lab Results 12/16/22 05:27 12/18/22 10:30 Lab results: Chemistry 12/16/22 12/18/22 05:27 10:30 Sodium 143 140 Potassium 3.7 4.0 Carbon Dioxide 27 28 BUN 85 H 112 H Creatinine 4.03 H* 4.32 H* Calcium 10.0 10.1 Phosphorus 4.3 Hematology 12/16/22 05:27 WBC 17.1 H Hgb 10.8 L Plt Count 468 H Assessment and Plan (1) JOAN (acute kidney injury): Status: Resolved Plan JOAN due to tubular injury Has advanced CKD at baseline UO good. Lytes acceptable No indication for renal replacement C/W current supportive care for now Shall continue to closely F/U Procedures Date of Service Date of Service: 12/18/22
[2022-12-18] MEDS: Albuterol/Iprat 2.5/0.5MG 3 ML AMPUL.NEB INHALE (19:50)
[2022-12-19] VITALS (10 sets, daily range): BP systolic 119–139; BP diastolic 65–80; PULSE 75–93; RESP 18–20; TEMP 35.9–36.4; O2SAT 93–100
[2022-12-19] MEDS: LORazepam 2 MG/ML VIAL 0.5 MG IVPUSH ×2 (00:19→20:08)
[2022-12-19] MEDS: methADONE HCl 20 MG/2 ML ORAL.CONC 70 MG PO (08:12)
[2022-12-19] MEDS: Heparin Sodium,Porcine 5,000 UNIT/ML VIAL 5000 UNIT SUBCUT ×3 (08:13→22:56)
[2022-12-19] MEDS: predniSONE 20 MG TABLET PO ×2 (08:13→16:29)
[2022-12-19] MEDS: Torsemide 20 MG TABLET PO ×2 (08:13→20:08)
[2022-12-19] MEDS: Aspirin Enteric Coated 81 MG TABLET.DR PO (08:13)
[2022-12-19] MEDS: Amoxicillin/Potassium Clav 875 MG TABLET PO ×2 (08:13→20:08)
[2022-12-19] MEDS: carvediloL 3.125 MG TABLET PO ×2 (08:13→20:08)
[2022-12-19] MEDS: Albuterol/Iprat 2.5/0.5MG 3 ML AMPUL.NEB INHALE ×4 (08:21→19:04)
--- NOTE | 2022-12-19 10:17 | P.PNIM_ITS ---
Subjective Subjective Date of Service: 12/19/22 Interval History: Doing better today, less sob today Physical Exam 2 Vital Signs: Vital Signs: Last Vital Signs Temp 97.1 F 12/19/22 07:46 Pulse 77 12/19/22 08:24 Resp 20 12/19/22 08:24 BP 128/80 12/19/22 07:46 Pulse Ox 95 12/19/22 07:46 O2 Del Method Nasal Cannula 12/19/22 07:46 O2 Flow Rate 2 12/19/22 07:46 FiO2 28 12/16/22 22:00 Oxygen Flow Rate 2 12/12/22 19:22 BMI result Body Mass Index 39.7 Const: Other: General: AO X 3, no acute distress Resp: CTA bilateral CVS: S1,S2,RRR GI: +BS, NT, no distention Skin: No rash Neuro: motor grossly intact Psych: appropriate affect Objective Data Active Medications Albuterol/Ipratropium (Albuterol/Iprat 2.5/0.5mg 3 Ml Ampul.Neb) 3 ml INHALE RQ4H WHILE AWAKE [facility] Last Admin: 12/19/22 08:21 Dose: 3 ml Documented By: CHARLENE Albuterol/Ipratropium (Albuterol/Iprat 2.5/0.5mg 3 Ml Ampul.Neb) 3 ml INHALE Q4H PRN PRN Reason: Wheezing Amoxicillin/Clavulanate Potassium (Amoxicillin/Potassium Clav 875 Mg Tablet) 875 mg PO BID [facility] Last Admin: 12/19/22 08:13 Dose: 875 mg Documented By: SELVIN Aspirin (Aspirin Enteric Coated 81 Mg Tablet.) 81 mg PO DAILY [facility] Last Admin: 12/19/22 08:13 Dose: 81 mg Documented By: SELVIN Benzonatate (Benzonatate 100 Mg Capsule) 200 mg PO TID PRN PRN Reason: Cough Last Admin: 12/17/22 00:04 Dose: 200 mg Documented By: KAROLYN Carvedilol (Carvedilol 3.125 Mg Tablet) 3.125 mg PO BID [facility]; Protocol Last Admin: 12/19/22 08:13 Dose: 3.125 mg Documented By: SELVIN Heparin Sodium (Porcine) (Heparin Sodium,Porcine 5,000 Unit/Ml Vial) 5,000 unit SUBCUT Q8H [facility] Last Admin: 12/19/22 08:13 Dose: 5,000 unit Documented By: SELVIN Methadone HCl (Methadone Hcl 20 Mg/2 Ml Oral.Conc) 70 mg PO DAILY [facility] Last Admin: 12/19/22 08:12 Dose: 70 mg Documented By: SELVIN Metolazone (Metolazone 2.5 Mg Tablet) 2.5 mg PO MOWEFR@0900 [facility] Last Admin: 12/18/22 07:47 Dose: 2.5 mg Documented By: HASEEB Prednisone (Prednisone 20 Mg Tablet) 20 mg PO BIDWM [facility] Last Admin: 12/19/22 08:13 Dose: 20 mg Documented By: SELVIN Torsemide (Torsemide 20 Mg Tablet) 20 mg PO BID [facility]; Protocol Last Admin: 12/19/22 08:13 Dose: 20 mg Documented By: SELVIN Labs 12/16/22 05:27 12/18/22 10:30 Labs: Laboratory Results - last 24 hr 12/18/22 10:30 Anion Gap 20 Estim Creat Clear Calc 14.5 Estimated GFR 10 Random Glucose 148 H Calcium 10.1 Assessment and Plan (1) Acute on chronic hypoxic respiratory failure: Status: Acute Plan Patient is a 62 Y F with polysubstance use, on methadone, morbid obesity, LEO, chronic respiratory failure d/t COPD on 2 L, and prior lung cancer status post resection, admitted 12/12/2022 with polysubstance use leading to aspiration and acute hypoxic respiratory failure, she was intubated, extubated and transfer to medical floor and twice had to be transfered back to ICU Acute on chronic hypoxic respiratory failure due to copd and heart failure overall better. continue treatment of underlying issues, keep O2 88 to 92 End stage copd with acute exacerbation--Transitioned to PO steroid, continue bronchodilators. Pulmonology recommends bipapa at night and prn during the day Aspiration pneumonia--has been on Zosyn since 12/12, transition to Augmentin on 12/17 HTN continue coreg CKD 4, monitor nephrology consult if worse LEO, chronic cpap or bipapa at night obesity. BMI 39 weight loss opiate dependence continue methadone HFpEF no exacerbation continue torsemide and Metolazone Hx lung ca outpatient follow up dvt prophylaxis - heparin doesn't want to be intubated but will use bipap She is leaning towards going h Quality Stroke Does the patient have a stroke diagnosis?: No VTE Prior VTE?: No VTE Risk Level:: Medical - moderate - high VTE Device Contraindication: N/A - Device Ordered VTE Drug Contraindication: N/A - Med Ordered
[2022-12-20] VITALS: BP 139/80; PULSE 100; RESP 20; TEMP 36.1; O2SAT 95
[2022-12-20 03:50] VITALS: BP 120/54; PULSE 94; RESP 20; TEMP 36.2; O2SAT 96
[2022-12-20] MEDS: Albuterol/Iprat 2.5/0.5MG 3 ML AMPUL.NEB INHALE ×2 (07:41→11:21)
[2022-12-20 07:43] VITALS: PULSE 101; RESP 20; O2SAT 97
[2022-12-20 08:00] VITALS: BP 112/74; PULSE 98; RESP 20; TEMP 36.2; O2SAT 98
[2022-12-20] MEDS: Acetaminophen 325 MG TABLET 650 MG PO (08:21)
[2022-12-20] MEDS: methADONE HCl 20 MG/2 ML ORAL.CONC 70 MG PO (08:22)
[2022-12-20] MEDS: carvediloL 3.125 MG TABLET PO (08:23)
[2022-12-20] MEDS: predniSONE 20 MG TABLET PO (08:23)
[2022-12-20] MEDS: Heparin Sodium,Porcine 5,000 UNIT/ML VIAL 5000 UNIT SUBCUT (08:23)
[2022-12-20] MEDS: Aspirin Enteric Coated 81 MG TABLET.DR PO (08:23)
[2022-12-20] MEDS: Amoxicillin/Potassium Clav 875 MG TABLET PO (08:23)
[2022-12-20] MEDS: Torsemide 20 MG TABLET PO (08:23)
--- NOTE | 2022-12-20 11:17 | HO.PM.IMPN ---
Subjective Subjective Date of Service: 12/20/22 Interval History: doing better, no use of cpapa or bipap last 2 days Physical Exam Vital Signs: Vital Signs: Last Vital Signs Temp 97.1 F 12/20/22 08:00 Pulse 98 12/20/22 08:00 Resp 20 12/20/22 08:00 BP 112/74 12/20/22 08:00 Pulse Ox 98 12/20/22 08:00 O2 Del Method Nasal Cannula 12/20/22 08:00 O2 Flow Rate 2 12/20/22 08:00 FiO2 28 12/16/22 22:00 Oxygen Flow Rate 2 12/12/22 19:22 BMI result Body Mass Index 39.7 Const: Other: General: AO X 3, no acute distress Resp: CTA bilateral CVS: S1,S2,RRR GI: +BS, NT, no distention Skin: No rash Neuro: motor grossly intact Psych: appropriate affect Objective Data Active Medications Acetaminophen (Acetaminophen 325 Mg Tablet) 650 mg PO Q4H PRN PRN Reason: Pain, Moderate(Pain Scale 4-6) Last Admin: 12/20/22 08:21 Dose: 650 mg Documented By: SELVIN Albuterol/Ipratropium (Albuterol/Iprat 2.5/0.5mg 3 Ml Ampul.Neb) 3 ml INHALE Q4H PRN PRN Reason: Wheezing Amoxicillin/Clavulanate Potassium (Amoxicillin/Potassium Clav 875 Mg Tablet) 875 mg PO BID [facility] Last Admin: 12/20/22 08:23 Dose: 875 mg Documented By: SELVIN Aspirin (Aspirin Enteric Coated 81 Mg Tablet.) 81 mg PO DAILY [facility] Last Admin: 12/20/22 08:23 Dose: 81 mg Documented By: SELVIN Benzonatate (Benzonatate 100 Mg Capsule) 200 mg PO TID PRN PRN Reason: Cough Last Admin: 12/17/22 00:04 Dose: 200 mg Documented By: KAROLYN Carvedilol (Carvedilol 3.125 Mg Tablet) 3.125 mg PO BID [facility]; Protocol Last Admin: 12/20/22 08:23 Dose: 3.125 mg Documented By: SELVIN Heparin Sodium (Porcine) (Heparin Sodium,Porcine 5,000 Unit/Ml Vial) 5,000 unit SUBCUT Q8H [facility] Last Admin: 12/20/22 08:23 Dose: 5,000 unit Documented By: SELVIN Lorazepam (Lorazepam 2 Mg/Ml Vial) 0.5 mg IVPUSH Q4H PRN PRN Reason: anxiety/restlessness Last Admin: 12/19/22 20:08 Dose: 0.5 mg Documented By: DODIE Methadone HCl (Methadone Hcl 20 Mg/2 Ml Oral.Conc) 70 mg PO DAILY [facility] Last Admin: 12/20/22 08:22 Dose: 70 mg Documented By: SELVIN Metolazone (Metolazone 2.5 Mg Tablet) 2.5 mg PO MOWEFR@0900 [facility] Last Admin: 12/18/22 07:47 Dose: 2.5 mg Documented By: HASEEB Prednisone (Prednisone 20 Mg Tablet) 20 mg PO BIDWM [facility] Last Admin: 12/20/22 08:23 Dose: 20 mg Documented By: SELVIN Torsemide (Torsemide 20 Mg Tablet) 20 mg PO BID [facility]; Protocol Last Admin: 12/20/22 08:23 Dose: 20 mg Documented By: SELVIN Labs 12/16/22 05:27 12/18/22 10:30 Assessment and Plan (1) Acute on chronic hypoxic respiratory failure: Status: Acute Plan Patient is a 62 Y F with polysubstance use, on methadone, morbid obesity, LEO, chronic respiratory failure d/t COPD on 2 L, and prior lung cancer status post resection, admitted 12/12/2022 with polysubstance use leading to aspiration and acute hypoxic respiratory failure, she was intubated, extubated and transfer to medical floor and twice had to be transfered back to ICU Acute on chronic hypoxic respiratory failure due to copd and heart failure overall better. continue treatment of underlying issues, keep O2 88 to 92 End stage copd with acute exacerbation--Transitioned to PO steroid, continue bronchodilators. Pulmonology recommends bipapa at night and prn during the day Aspiration pneumonia--has been on Zosyn since 12/12, transition to Augmentin on 12/17, making 9 days of Abx, will stop today HTN continue coreg CKD 4, monitor nephrology consult if worse LEO, chronic cpap or bipapa at night obesity. BMI 39 weight loss opiate dependence continue methadone HFpEF no exacerbation continue torsemide and Metolazone Hx lung ca outpatient follow up dvt prophylaxis - heparin doesn't want to be intubated but will use bipap She is leaning towards going home rather than rehab Quality Stroke Does the patient have a stroke diagnosis?: No VTE Prior VTE?: No VTE Risk Level:: Medical - moderate - high VTE Device Contraindication: N/A - Device Ordered VTE Drug Contraindication: N/A - Med Ordered
[2022-12-20 11:25] VITALS: PULSE 97; RESP 20; O2SAT 98
[2022-12-20 11:53] VITALS: BP 102/69; PULSE 91; RESP 18; TEMP 36.3; O2SAT 95
--- NOTE | 2022-12-20 12:38 | PM.DS ---
DS: Providers Provider Date of Service: 12/20/22 Date of admission: 12/12/22 21:53 Primary care physician: Valerie Castano MD Consults: 12/17/22 10:17 Consult to Pulmonology Routine Consulting Provider: [facility] Pulmonology Services Reason for consultation: respiratory failure Has provider been notified: No 12/18/22 08:34 Consult to Nephrology Routine Consulting Provider: Donny Flowers Reason for consultation: Jordan, ckd Has provider been notified: No DS: Diagnosis Discharge Diagnosis (1) Acute on chronic hypoxic respiratory failure: Status: Resolved DS: Summary Time Attestation Discharge coordination time: Greater than 30 minutes Quality: Safe Use of Opioids Does Pt have an Active Cancer Diagnosis on the Problem List?: No Quality: Stroke Does the patient have a stroke diagnosis?: No Physical Exam Vital Signs: Vital Signs: Last Vital Signs Temp 97.4 F 12/20/22 11:53 Pulse 91 12/20/22 11:53 Resp 18 12/20/22 11:53 BP 102/69 12/20/22 11:53 Pulse Ox 95 12/20/22 11:53 O2 Del Method Nasal Cannula 12/20/22 11:53 O2 Flow Rate 2 12/20/22 11:53 FiO2 28 12/16/22 22:00 Oxygen Flow Rate 2 12/12/22 19:22 BMI result Body Mass Index 39.7 DS: Data Data Completed and Pending Labs on day of discharge: Laboratory Results - last 24 hr 12/20/22 12:06 Hold Purple Top SEE NOTE Discharge Plan Discharge Anticipated Discharge Date/Time: 12/20/22 14:11 Patient Disposition: Home Health Service Discharge Diagnosis: Acute on chronic hypoxic respiratory failure due to COPD, chronic hypoventilation Referrals: Physician,Unknown J [Physician] - 1 Week Discharge Medications: Continued aspirin 81 mg tablet,delayed release (DR/EC) 81 mg PO DAILY Qty: 30 0RF fluticasone furoate-vilanterol [Breo Ellipta] 100-25 mcg/dose blister with device 1 ea PO DAILY 90 Days Qty: 3 3RF ipratropium-albuterol 0.5 mg-3 mg(2.5 mg base)/3 mL solution for nebulization 3 ml inhalation Q4-6H PRN (Reason: shortness of breath or wheezing) Qty: 180 0RF guaifenesin [Mucinex] 600 mg tablet extended release 12hr 600 mg PO BID 30 Days Qty: 60 3RF acetaminophen 325 mg Tablet 650 mg PO Q6H PRN (Reason: Pain) hydroxyzine pamoate 100 mg capsule 100 mg PO BEDTIME PRN (Reason: insomnia) metolazone 2.5 mg tablet 2.5 mg PO MOWEFR@0900 torsemide 20 mg tablet 20 mg PO BID clonazepam 1 mg tablet 1 mg PO BID PRN (Reason: Anxiety) calcitriol 0.25 mcg capsule 0.25 mcg PO DAILY methadone 10 mg/mL concentrate 70 mg PO DAILY Patient Comments: [facility] fluticasone propionate 50 mcg/actuation spray,suspension 1 spray intranasal DAILY No Action carvedilol 3.125 mg tablet 3.125 mg PO BID Qty: 180 1RF nitrofurantoin monohyd/m-cryst 100 mg capsule 100 mg PO Q12H 3 Days Qty: 6 0RF Rx Instructions: must administer with a meal/food acetazolamide 250 mg tablet 250 mg PO DAILY 30 Days Qty: 30 5RF Discharge Orders: Discharge Order (Routine); Ordered 12/20/22 Ordered By: Margarito Corbin Diet: Advance to usual diet Activity on Discharge: As tolerated Stand Alone Forms: Patient Portal Discharge page Care Plan Goals: Full recovery from copd exacerbation and acute on chronic respriatory failure Health Concerns: Chronic respiratory failure, copd with exacerbation Plan of Treatment: Use inhalers as recommended use oxygen as directed, take Prednisone as directed follow up with your doctor in a week Assessment: as above Discharge Date/Time: 12/20/22 14:00
[2022-12-20 13:45] LABS: Anion Gap 21 (12-20); Blood Urea Nitrogen 123 mg/dL (9-16); Carbon Dioxide 26 mmol/L (22-29); Chloride 92 mmol/L (96-108); Creatinine Clr Calc Pharmacy 16.2; Estimated Glomerular Filt Rate 12; Glucose Random 104 mg/dL (60-115); Potassium 3.4 mmol/L (3.3-5.1); Sodium 136 mmol/L (135-145)
--- NOTE | 2022-12-20 14:27 | PC.NURSE ---
patient being discharged home now as she continues to decline rehab
--- NOTE | 2022-12-20 14:55 | MHC.CM.PN ---
order for home, w/home-health. Per records, Pt previously on service w[facility]. Referral sent to them 12/13/22, no response. This CM called agency and LVM requesting they return call with a fax number so that clinical information can be sent to them via fax, for them to continue care for Pt in the home; indicatd Pt stated on service w/them per notes. Left CM dept call back number.
== END 2022-12-20 14:00 | disposition home health service (06) | DRG 208 ==
LOC: HO.ED 20:33 → HO.EDOVER 22:02 → HO.ICU 22:19 → HO.IMC 12-13 12:38 → HO.ICU 12-13 18:01 → HO.IMC 12-14 17:15 → HO.ICU 12-14 23:47 → HO.IMC 12-16 21:10
PROVIDERS: Internal Medicine Critical Care Medicine; Internal Medicine Pulmonary Disease; Physician Assistant Medical; Admitting Provider Nurse Practitioner Family; Emergency Provider Emergency Medicine; PCP Internal Medicine; Visit Provider Internal Medicine
DX: J69.0 Pneumonitis due to inhalation of food and vomit (principal); J96.21 Acute and chronic respiratory failure with hypoxia; J96.22 Acute and chronic respiratory failure with hypercapnia; I13.0 Hypertensive heart and chronic kidney disease with heart failure and stage 1 through stage 4 chronic kidney disease, or unspecified chronic kidney disease; F11.20 Opioid dependence, uncomplicated; I50.32 Chronic diastolic (congestive) heart failure; E66.2 Morbid (severe) obesity with alveolar hypoventilation; N17.9 Acute kidney failure, unspecified; N18.4 Chronic kidney disease, stage 4 (severe); D63.1 Anemia in chronic kidney disease; E78.5 Hyperlipidemia, unspecified; Z68.39 Body mass index [BMI] 39.0-39.9, adult; Z99.81 Dependence on supplemental oxygen; Z90.2 Acquired absence of lung [part of]; Z20.822 Contact with and (suspected) exposure to COVID-19; Z85.118 Personal history of other malignant neoplasm of bronchus and lung; Z87.891 Personal history of nicotine dependence; Z79.82 Long term (current) use of aspirin; Z79.899 Other long term (current) drug therapy
CPT/HCPCS: 0241U; 36415; 36600; 71045; 71250; 80048; 80053; 80307; 81001; 81003; 82040; 82803; 82947; 83605; 83735; 83880; 84100; 84484; 85025; 92950; 93005; 94002; 94003; 94640; 94660; 94799; 97162; 99285; C1758; C9113; J1643; J1940; J2060; J2270; J2543; J2920; J2930; J3475

== ENCOUNTER → 2022-12-12 21:53 | Outpatient (BNV) | payer MEDICARE, MEDICAID, SELFPAY | PROVIDERS: Admitting Provider Nurse Practitioner Family; Emergency Provider Emergency Medicine; Visit Provider Nurse Practitioner Family | DX: J96.21 Acute and chronic respiratory failure with hypoxia (principal); N18.5 Chronic kidney disease, stage 5; J44.1 Chronic obstructive pulmonary disease with (acute) exacerbation; G47.33 Obstructive sleep apnea (adult) (pediatric); Z99.81 Dependence on supplemental oxygen; F19.10 Other psychoactive substance abuse, uncomplicated | CPT/HCPCS: 99291; 99292 ==

== ENCOUNTER → 2022-12-12 21:53 | Outpatient (BNV) | payer MEDICARE, MEDICAID, SELFPAY | PROVIDERS: Admitting Provider Nurse Practitioner Family; Emergency Provider Emergency Medicine; Visit Provider Internal Medicine Pulmonary Disease | DX: F19.10 Other psychoactive substance abuse, uncomplicated (principal); J96.21 Acute and chronic respiratory failure with hypoxia; N18.5 Chronic kidney disease, stage 5; F11.20 Opioid dependence, uncomplicated; E66.01 Morbid (severe) obesity due to excess calories; Z68.39 Body mass index [BMI] 39.0-39.9, adult; G47.33 Obstructive sleep apnea (adult) (pediatric) | CPT/HCPCS: 99232; 99291 ==

== ENCOUNTER → 2022-12-12 21:53 | Outpatient (BNV) | payer MEDICARE, MEDICAID, SELFPAY | PROVIDERS: Admitting Provider Nurse Practitioner Family; Emergency Provider Emergency Medicine; Visit Provider Physician Assistant Medical | DX: J96.21 Acute and chronic respiratory failure with hypoxia (principal) | CPT/HCPCS: 99232; 99239; 99499 ==

== ENCOUNTER → 2022-12-12 21:53 | Outpatient (BNV) | payer MEDICARE, MEDICAID, SELFPAY | PROVIDERS: Admitting Provider Nurse Practitioner Family; Emergency Provider Emergency Medicine; PCP Internal Medicine; Visit Provider Internal Medicine Nephrology | DX: N17.9 Acute kidney failure, unspecified (principal); N18.4 Chronic kidney disease, stage 4 (severe) | CPT/HCPCS: 99222 ==

== ENCOUNTER 2022-12-24 10:50 | Outpatient (AMB) | payer MEDICARE, MEDICAID, SELFPAY ==
--- NOTE | 2022-12-24 10:57 | MHC.PC.OV ---
Vital Signs 12/24/22 10:58 Height 5 ft 1 in Weight 188 lb 8 oz BMI 35.6 BP 98/60 Blood Pressure Location Lt brachial Position Sitting Pulse 104 H Pulse Source Pulse Oximeter Pulse Oximetry (%) 100 Oxygen Delivery Method Nasal Cannula Intake Visit Reasons: HDF Intake Note: ptis here for a [place] [facility] Allergies ciprofloxacin [From Cipro] Allergy (Severe, Verified 12/25/22 02:11) HIVES/SWELLING, THROAT CLOSES shellfish derived [SHELLFISH DERIVED] Allergy (Intermediate, Verified 12/25/22 02:11) Vomiting NSAIDS (Non-Steroidal Anti-Inflamma Adverse Reaction (Severe, Verified 12/25/22 02:11) Avoid due to kidney disease Medication List - Last Reconciled 12/25/22 by Valerie Castano MD acetaminophen 650 mg PO Q6H PRN acetazolamide 250 mg PO DAILY 30 days aspirin 81 mg PO DAILY Breo Ellipta 100-25 mcg/dose (fluticasone furoate-vilanterol) 1 ea PO DAILY 90 days NS calcitriol 0.25 mcg PO DAILY carvedilol 3.125 mg PO BID clonazepam 1 mg PO BID PRN fluticasone propionate 50 mcg/actuation 1 spray intranasal DAILY gabapentin 100 mg PO BID PRN guaifenesin ER (Mucinex) 600 mg PO BID 30 days hydroxyzine pamoate 100 mg PO BEDTIME PRN ipratropium-albuterol 0.5 mg-3 mg(2.5 mg base)/3 mL 3 mL inhalation Q4-6H PRN methadone 70 mg PO DAILY metolazone 2.5 mg PO MOWEFR@0900 torsemide 20 mg PO BID Tobacco use date assessed: 12/24/22 Dental Screening Dental Screen Date: 12/24/22 Did you have a dental visit in the last 12 months?: No Did you have a dental problem in the last 6 months where you did not have access to dental care?: No Was dental information given to patient?: No HPI HDF HPI Details 62 years old female with advanced chronic obstructive pulmonary disease and chronic respiratory failure, on oxygeny, recently admitted at [facility] and treated for acute exacerbation of COPD/respiratory failure, was able to normalize blood gases with aggressive treatment. She was discharged home on prednisone taper and all her usual medications. Patient states that breathing is back to baseline, denies cough, or worsening shortness of breath.. Complains of difficulty sleeping ever since she was started on prednisone, which just finished today. She also has chronic kidney disease stage 5, currently being followed by Nephrology.. She has anemia of chronic disease and is currently being evaluated for IV iron or Epo injection . Patient interested in getting a Life Alert necklace. Contact number given to patient and partner. [facility] Medical History JOAN (acute kidney injury) Respiratory failure with hypoxia and hypercapnia Acute exacerbation of chronic obstructive pulmonary disease Tremor of both hands Ambulates with cane Seasonal allergies Herpes zoster Post covid-19 condition, unspecified COPD (chronic obstructive pulmonary disease) Osteopenia (~2017) Obesity Respiratory failure COVID-19 (~03/2021) Osteoarthritis of ankles, bilateral Olecranon bursitis of left elbow Tubulovillous adenoma of large intestine (~2020) Hx of cardiac arrest (~2015) O2 dependent Methadone maintenance therapy patient History of claustrophobia History of seizure Anxiety and depression HTN (hypertension) Multiple fractures of ribs Anemia in chronic kidney disease Vitamin D deficiency Family history of colon cancer CKD (chronic kidney disease) stage 4, GFR 15-29 ml/min Dyslipidemia Restrictive lung disease Lung cancer (~2019) LEO (obstructive sleep apnea) Surgical History Hx of tracheostomy History of esophagogastroduodenoscopy (EGD) (~2021) History of removal of ureteral stent (~2013) History of lung biopsy (~2019) History of colonoscopy (~2020) Umbilical hernia History of laparoscopy (~2012) History of hand surgery History of tubal ligation Family History Father Diabetes mellitus Mother Depression Mental health disorder Maternal Grandfather Colon cancer Sister No problems noted. Son No problems noted. Daughter No problems noted. Daughter No problems noted. Social History Household Members: Unknown / Unable to assess Housing: House Housing Other:: mobile home Are you a primary childcare center administrator to a significant other at home: No Do you presently have visiting nurse or other home services: Yes ([facility] daily) Unable to assess alcohol history related to: Unable to respond Alcohol intake: never Patient Tobacco Use Status: Former Tobacco user Quit Date: 2006 Tobacco use type: Cigarette Years Smoked: 25 yrs e-Cigarette/Vaping Use: Never Used Substance Use Type: Former Substance User and Heroin Advance Directives Date on File: 03/21/21 service: No Current occupational status: unemployed and disabled Cognitive needs: No Hearing needs: No Vision needs: No Questionnaire Thrive Questionnaire Date Thrive assessed: 12/13/22 TONIE-7 AMB Questionnaire TONIE-7 Date TONIE - 7 assessed: 03/24/22 Source: Developed by Drs. Marco Ramirez, Elisa Kennedy, Warren Galvan and colleagues, with an educational cheo from [employer]. Review of Systems Const All systems reviewed & are unremarkable except as noted in HPI and below Reports fatigue (Unchanged) Eyes Reports no additional complaints ENT Reports no additional complaints Card Denies chest pain, Denies irregular heart rhythm, Denies leg edema, Denies palpitations and Denies dyspnea on exertion Resp Denies cough, Denies excessive phlegm production, Denies pain on inspiration and Denies dyspnea on exertion GI Denies no additional complaints Denies no additional complaints Musc Reports abnormal gait (Slow gait, need to be supported by partner, with trunk tilted to 1 side) and Reports back pain (Lower back) Skin/Breast Reports system reviewed and no additional complaints, except as documented Neuro Reports abnormal gait (Slow gait, need to be supported by partner, with trunk tilted to 1 side) Psych Reports no additional complaints Endo Reports fatigue (Unchanged), Denies polyphagia, Denies polydipsia, Denies polyuria and Denies palpitations Cristo/Lymph Denies easy bleeding and Denies easy bruising Physical exam (Primary Care) Vital Signs: Last Vital Signs Pulse 104 H 12/24/22 10:58 BP 98/60 12/24/22 10:58 Pulse Ox 100 12/24/22 10:58 Oxygen Delivery Method Nasal Cannula 12/24/22 10:58 BMI result Body Mass Index 35.6 Tobacco/Smoking Status: Tobacco use Status Tobacco use date assessed 12/24/22 12/24/22 11:06 Patient Tobacco Use Status Former Tobacco user 12/24/22 11:06 Tobacco use type Cigarette 12/24/22 11:06 e-Cigarette/Vaping Use Never Used 12/24/22 11:06 Thrive Assessment: Date of Thrive Assessment Date Thrive assessed 12/13/22 12/24/22 11:06 Const Other: Alert oriented x3, ambulatory with partner's supporting her, patient tilted to 1 side Nutritional Appearance: obese Orientation/consciousness: patient oriented x3 [facility] Mouth: Normal oral and palatal mucosa present, oropharynx normal and moist mucous membranes Eyes General: appearance normal, both eyes and all related structures Neck Neck: Yes full ROM, Yes no lymphadenopathy and Yes supple Resp Effort & Inspection: normal respiratory effort (O2 in place by nasal cannula) and able to speak in complete sentences Auscultation: clear to auscultation bilaterally Cardio Rate: regular rate Rhythm: regular rhythm Heart sounds: S1 normal heart sound present and S2 normal heart sound present GI Inspection: Yes obesity Palpation (GI): Soft to palpation, nontender, no guarding and no masses Auscultation: normal bowel sounds Back/Spine/Pelvis Thoracic/Lumbar Spine: paraspinal muscle tenderness on the right in the lower lumbar Neuro Other: Coarse tremors in both hands, right more than blood General: patient oriented x3, moves all extremities, Normal light touch and pain sensation, no focal motor deficits and CN's II-XI intact bilaterally Extrem Other: Trace swelling in ankles General: Yes full ROM and Yes no joint enlargement Assessment and Plan Assessment & Plan (1) CKD (chronic kidney disease) stage 5, GFR less than 15 ml/min: Code(s): N18.5 - Chronic kidney disease, stage 5 Plan: Currently followed by Nephrology, reminded about strict avoidance of NSAIDs or other nephrotoxic agents. Has an appointment already scheduled to see Dr. Muhammad 01/11/2023 (2) Acute exacerbation of chronic obstructive pulmonary disease: Comment: Acute exacerbation of chronic obstructive pulmonary disease probably due to increased secretions which she cannot expectorate. [place] Continue DuoNeb updrafts q.i.d. and Breo-100 1 inhalation daily. Prednisone 20 mg b.i.d. for 7 days. Mucinex 600 mg b.i.d. also prescribed. Code(s): J44.1 - Chronic obstructive pulmonary disease with (acute) exacerbation Plan: Patient already completed her prednisone taper continued on current inhalers, has an appointment for follow-up with Dr. Cochran later this afternoon (3) Methadone maintenance therapy patient: Code(s): F11.20 - Opioid dependence, uncomplicated (4) O2 dependent: Comment: (2 L/min cont) Code(s): Z99.81 - Dependence on supplemental oxygen (5) Restrictive lung disease: Comment: SHE HAS SIGNIFICANT DEGREE OF RESTRICTIVE PULMONARY DISORDER, PRIMARILY DUE TO MORBID OBESITY. ADVISE THAT SHE SHOULD CONTINUE TO DO DEEP BREATHING EXERCISES BEFORE. Code(s): J98.4 - Other disorders of lung (6) COPD (chronic obstructive pulmonary disease): Comment: PATIENT HAS LONG-STANDING HISTORY OF CHRONIC OBSTRUCTIVE PULMONARY DISEASE PRIMARILY DUE TO HER LONG TIME SMOKING, BUT QUIT EARLIER THIS YEAR. TX: UNDER COPD EXACERBATION Code(s): J44.9 - Chronic obstructive pulmonary disease, unspecified Coding Level of Care Code Est Pt Level 4 (75476) Diagnoses CKD (chronic kidney disease) stage 5, GFR less than 15 ml/min N18.5 Acute exacerbation of chronic obstructive pulmonary disease J44.1 Methadone maintenance therapy patient F11.20 O2 dependent Z99.81 Restrictive lung disease J98.4 COPD (chronic obstructive pulmonary disease) J44.9
[2022-12-24 10:58] VITALS: BP 98/60; PULSE 104; O2SAT 100; BMI 35.6
== END 2022-12-24 15:19 | disposition home or self-care (01) ==
PROVIDERS: Visit Provider Internal Medicine
DX: J44.1 Chronic obstructive pulmonary disease with (acute) exacerbation (principal); N18.5 Chronic kidney disease, stage 5; F11.20 Opioid dependence, uncomplicated; J44.9 Chronic obstructive pulmonary disease, unspecified; Z99.81 Dependence on supplemental oxygen; J98.4 Other disorders of lung
CPT/HCPCS: 99214

== ENCOUNTER 2022-12-24 15:15 | Outpatient (AMB) | payer MEDICARE, MEDICAID, SELFPAY ==
[2022-12-24 15:21] VITALS: BP 124/70; PULSE 103; O2SAT 96
--- NOTE | 2022-12-24 15:21 | MHC.OFFVIS ---
Intake Vital Signs 12/24/22 15:21 Height 5 ft 1 in BP 124/70 Blood Pressure Location Lt brachial Position Sitting Pulse 103 H Pulse Source Pulse Oximeter Pulse Oximetry (%) 96 Oxygen Delivery Method Nasal Cannula Oxygen Flow Rate 2 Intake Visit Reasons: copd, respiratory failure Intake Note: pt is here for follow up from and states, coughing, with mucous in chest she cannot get out,some leg swelling, and she was told she would possibly need a cpap. Allergies ciprofloxacin [From Cipro] Allergy (Severe, Verified 12/24/22 11:01) HIVES/SWELLING, THROAT CLOSES shellfish derived [SHELLFISH DERIVED] Allergy (Intermediate, Verified 12/24/22 11:01) Vomiting NSAIDS (Non-Steroidal Anti-Inflamma Adverse Reaction (Severe, Verified 12/24/22 11:01) Avoid due to kidney disease Do you need a note to return to daycare/school/sports/work: No HPI copd HPI Details Deirdre , 62 years old female with advanced chronic obstructive pulmonary disease and chronic respiratory failure, on oxygen. Was in the hospital and treated for acute exacerbation of COPD/respiratory failure. Initially her blood gases were grossly abnormal with hypercapnia and hypoxemia, with aggressive treatment her blood gases showed that PCO 2 had come down to normal level 40. She was discharged home on prednisone taper and all her usual medications. When I initially saw her in the hospital I was the recommending that she should be evaluated for use of a BiPAP at nighttime. However with continued improvement and normalization of PCO 2, she was sent home without any noninvasive vent support. Patient is here today for follow-up. Breathing is relatively stable but she is very weak and fatigued. Oxygen level remains in normal range with O2 2 L/minute. She denies any. Wheezing or cough The reason for her fatigue and sometimes mental fog is because she is on methadone 70 mg a day [facility] Medical History JOAN (acute kidney injury) Respiratory failure with hypoxia and hypercapnia Acute exacerbation of chronic obstructive pulmonary disease Tremor of both hands Ambulates with cane Seasonal allergies Herpes zoster Post covid-19 condition, unspecified COPD (chronic obstructive pulmonary disease) Osteopenia (~2017) Obesity Respiratory failure COVID-19 (~03/2021) Osteoarthritis of ankles, bilateral Olecranon bursitis of left elbow Tubulovillous adenoma of large intestine (~2020) Hx of cardiac arrest (~2015) O2 dependent Methadone maintenance therapy patient History of claustrophobia History of seizure Anxiety and depression HTN (hypertension) Multiple fractures of ribs Anemia in chronic kidney disease Vitamin D deficiency Family history of colon cancer CKD (chronic kidney disease) stage 4, GFR 15-29 ml/min Dyslipidemia Restrictive lung disease Lung cancer (~2019) LEO (obstructive sleep apnea) Surgical History Hx of tracheostomy History of esophagogastroduodenoscopy (EGD) (~2021) History of removal of ureteral stent (~2013) History of lung biopsy (~2019) History of colonoscopy (~2020) Umbilical hernia History of laparoscopy (~2012) History of hand surgery History of tubal ligation Family History Father Diabetes mellitus Mother Depression Mental health disorder Maternal Grandfather Colon cancer Sister No problems noted. Son No problems noted. Daughter No problems noted. Daughter No problems noted. Social History Household Members: Unknown / Unable to assess Housing: House Housing Other:: mobile home Are you a primary healthcare social worker to a significant other at home: No Do you presently have visiting nurse or other home services: Yes ([facility]NA daily) Unable to assess alcohol history related to: Unable to respond Alcohol intake: never Patient Tobacco Use Status: Former Tobacco user Quit Date: 2006 Tobacco use type: Cigarette Years Smoked: 25 yrs e-Cigarette/Vaping Use: Never Used Substance Use Type: Former Substance User and Heroin Advance Directives Date on File: 03/21/21 service: No Current occupational status: unemployed and disabled Cognitive needs: No Hearing needs: No Vision needs: No Review of Systems Const All systems reviewed & are unremarkable except as noted in HPI and below Eyes Reports no additional complaints ENT Reports no additional complaints Card Denies chest pain, Denies irregular heart rhythm and Denies leg edema Resp Reports as per HPI and Reports other (RIGHT-SIDED RIBCAGE PAIN IS NEW DUE TO THE FALL AT HOME) GI Denies no additional complaints Denies no additional complaints Musc Reports abnormal gait (IMPAIRED LOCOMOTION, WALKS SLOW, WITH MINIMAL SUPPORT) and Reports back pain Skin/Breast Reports system reviewed and no additional complaints, except as documented Neuro Reports abnormal gait (IMPAIRED LOCOMOTION, WALKS SLOW, WITH MINIMAL SUPPORT) Psych Reports no additional complaints Physical Exam Vital Signs: Last Vital Signs Pulse 103 H 12/24/22 15:21 BP 124/70 12/24/22 15:21 Pulse Ox 96 12/24/22 15:21 Oxygen Delivery Method Nasal Cannula 12/24/22 15:21 Oxygen Flow Rate 2 12/24/22 15:21 Deirdre comes in wheelchair. She does not show any respiratory distress. She is grossly obese as usual, She is alert and orientated. Oropharynx is clear. Chest percussion is resonant. Breath sounds are very diminished especially over the basilar areas. But I do not hear any wheezes rhonchi or crepitations today. She does have hypoventilation of the lower lobes. . Extremities no pitting edema is noted Results Reviewed Results Reviewed: Hospital course of her recent hospitalization is reviewed. LAB before discharge the venous blood gas study was as follows. PH 7.44, pCO2 44, PO2 66, bicarbonate 30 Assessment & Plan Assessment & Plan (1) COPD (chronic obstructive pulmonary disease): Comment: PATIENT HAS LONG-STANDING HISTORY OF CHRONIC OBSTRUCTIVE PULMONARY DISEASE PRIMARILY DUE TO HER LONG TIME SMOKING, BUT QUIT EARLIER THIS YEAR. TX: UNDER COPD EXACERBATION Code(s): J44.9 - Chronic obstructive pulmonary disease, unspecified (2) Lung cancer: Onset Date: ~2019 Comment: (Adenocarcinoma RML Dx 02/20/2019 - s/p SBRT complete 05/19/2019) Treatment has been successful, the neoplastic nodule seems to have resolved. Last CT scan of the chest performed at [facility] in September 2020, showed that there was no residual mass. This patient has lost follow-up at [facility]. Code(s): C34.90 - Malignant neoplasm of unspecified part of unspecified bronchus or lung (3) Restrictive lung disease: Comment: SHE HAS SIGNIFICANT DEGREE OF RESTRICTIVE PULMONARY DISORDER, PRIMARILY DUE TO MORBID OBESITY. ADVISE THAT SHE SHOULD CONTINUE TO DO DEEP BREATHING EXERCISES BEFORE. Code(s): J98.4 - Other disorders of lung (4) LEO (obstructive sleep apnea): Comment: SHE HAS HAD HISTORY OF LEO/CHRONIC HYPOVENTILATION SYNDROME. She had stopped using the CPAP. Now when she was in the hospital BiPAP treatment at nighttime was tried but she was not able to tolerate the BiPAP at all. Code(s): G47.33 - Obstructive sleep apnea (adult) (pediatric) (5) Acute on chronic hypoxic respiratory failure: Comment: Patient has chronic hypoxemic respiratory failure. And when she is sick she develops hypercapnia. She is advised to stay on oxygen 2 L/minute. Advised to do deep breathing exercises with the incentive spirometry, and try to do pursed lip breathing also. I will add Diamox 250 mg daily Code(s): J96.21 - Acute and chronic respiratory failure with hypoxia Medications: New acetazolamide 250 mg PO DAILY 30 tabs 5RF respiratory failure 30 days Coding Level of Care Code Est Pt Level 4 (05290) Diagnoses COPD (chronic obstructive pulmonary disease) J44.9 Lung cancer C34.90 Restrictive lung disease J98.4 LEO (obstructive sleep apnea) G47.33 Acute on chronic hypoxic respiratory failure J96.21
== END 2022-12-24 15:43 | disposition home or self-care (01) ==
PROVIDERS: PCP Internal Medicine; Visit Provider Internal Medicine
DX: J44.9 Chronic obstructive pulmonary disease, unspecified (principal); C34.90 Malignant neoplasm of unspecified part of unspecified bronchus or lung; J98.4 Other disorders of lung; G47.33 Obstructive sleep apnea (adult) (pediatric); J96.21 Acute and chronic respiratory failure with hypoxia
CPT/HCPCS: 99214

== ENCOUNTER → 2022-12-24 15:15 | Outpatient (BNVA) | payer MEDICARE, MEDICAID, SELFPAY | PROVIDERS: PCP Internal Medicine; Visit Provider Internal Medicine | DX: J44.9 Chronic obstructive pulmonary disease, unspecified (principal); G47.33 Obstructive sleep apnea (adult) (pediatric); J96.21 Acute and chronic respiratory failure with hypoxia; C34.90 Malignant neoplasm of unspecified part of unspecified bronchus or lung; J98.4 Other disorders of lung | CPT/HCPCS: 99212 ==

== ENCOUNTER 2023-01-05 11:40 | Outpatient (REF) | payer MEDICARE, MEDICAID, SELFPAY ==
[2023-01-05 13:44] LABS: Appearance Urine Clear; Color Urine Yellow; Glucose Urine UA Negative (Negative); Leukocyte Esterase Urine Small (1+) (Negative); Nitrite Urine Negative (Negative); Specific Gravity - Urine 1.015 (1.005-1.025); UMIC TRIGGER UACC YES; Urine Blood Negative (Negative); Urine Ketones Negative (Negative); Urine Protein Negative (Neg-Trace)
[2023-01-05 13:49] LABS: Bacteria Urine 1+ (None Seen); Hyaline Casts Urine 0-2 /LPF (0-2); RBC Urine 0-2 /HPF (0-2); UACC Culture Trigger YES
== END 2023-01-05 11:41 | disposition home or self-care (01) ==
LOC: HO.HMGCLNP 11:40
PROVIDERS: Visit Provider Internal Medicine
DX: R30.0 Dysuria (principal)
CPT/HCPCS: 81001; 87086; 87088; 87186

== ENCOUNTER 2023-01-09 11:22 | Outpatient (REF) | payer MEDICARE, MEDICAID, SELFPAY ==
[2023-01-09 14:17] LABS: Anion Gap 21 (12-20); Blood Urea Nitrogen 90 mg/dL (9-16); Calcium 9.3 mg/dL (8.4-10.2); Carbon Dioxide 24 mmol/L (22-29); Chloride 104 mmol/L (96-108); Potassium 4.1 mmol/L (3.3-5.1); Sodium 145 mmol/L (135-145)
[2023-01-09 14:32] LABS: Estimated Glomerular Filt Rate 11
== END 2023-01-09 11:23 | disposition home or self-care (01) ==
LOC: HO.HMGCLDS 11:22
PROVIDERS: Internal Medicine Hypertension Specialist; PCP Internal Medicine; Visit Provider Internal Medicine
DX: N18.5 Chronic kidney disease, stage 5 (principal); D63.1 Anemia in chronic kidney disease
CPT/HCPCS: 36415; 80051; 82310; 82565; 84520

== ENCOUNTER → 2023-01-11 14:56 | Outpatient (BNVA) | payer MEDICARE, MEDICAID, SELFPAY | PROVIDERS: PCP Internal Medicine; Visit Provider Internal Medicine Hypertension Specialist | DX: I12.9 Hypertensive chronic kidney disease with stage 1 through stage 4 chronic kidney disease, or unspecified chronic kidney disease (principal); N18.5 Chronic kidney disease, stage 5; D63.1 Anemia in chronic kidney disease; J44.1 Chronic obstructive pulmonary disease with (acute) exacerbation | CPT/HCPCS: 99212 ==

== ENCOUNTER 2023-01-11 14:58 | Outpatient (AMB) | payer MEDICARE, MEDICAID, SELFPAY ==
--- NOTE | 2023-01-11 14:57 | HO.NEPHOV_ITS ---
HPI HPI Comments History of Present Illness Details 62 years old female with advanced chroni c obstructive pulmonary disease and chronic respiratory failure, on oxygen, and treated for acute exacerbation of COPD/respiratory failure, was able to normalize blood gases with aggressive treatment. She has advanced CKD approaching end stage renal disease. She has significant fluid overload requiring high-dose of diuretics. She is here for further follow-up. Recently admitted for respiratory illness and was treated with a course of prednisone. During hospitalization diltiazem has been discontinued but she is still taking it. [facility] Medical History (Updated 01/11/23 @ 15:56 by Fermin Muhammad MD) CKD (chronic kidney disease) stage 5, GFR less than 15 ml/min Polysubstance abuse JOAN (acute kidney injury) Respiratory failure with hypoxia and hypercapnia Acute exacerbation of chronic obstructive pulmonary disease Tremor of both hands Ambulates with cane Seasonal allergies Herpes zoster Post covid-19 condition, unspecified COPD (chronic obstructive pulmonary disease) Osteopenia (~2017) Obesity Respiratory failure COVID-19 (~03/2021) Osteoarthritis of ankles, bilateral Olecranon bursitis of left elbow Tubulovillous adenoma of large intestine (~2020) Hx of cardiac arrest (~2015) O2 dependent Methadone maintenance therapy patient History of claustrophobia History of seizure Anxiety and depression HTN (hypertension) Multiple fractures of ribs Anemia in chronic kidney disease Vitamin D deficiency Family history of colon cancer CKD (chronic kidney disease) stage 4, GFR 15-29 ml/min Dyslipidemia Restrictive lung disease Lung cancer (~2019) LEO (obstructive sleep apnea) Surgical History Hx of tracheostomy History of esophagogastroduodenoscopy (EGD) (~2021) History of removal of ureteral stent (~2013) History of lung biopsy (~2019) History of colonoscopy (~2020) Umbilical hernia History of laparoscopy (~2012) History of hand surgery History of tubal ligation Family History Father Diabetes mellitus Mother Depression Mental health disorder Maternal Grandfather Colon cancer Sister No problems noted. Son No problems noted. Daughter No problems noted. Daughter No problems noted. Social History Household Members: Unknown / Unable to assess Housing: House Housing Other:: mobile home Are you a primary chiropractic care to a significant other at home: No Do you presently have visiting nurse or other home services: Yes ([facility]NA daily) Unable to assess alcohol history related to: Unable to respond Alcohol intake: never Comment: restraints Patient Tobacco Use Status: Former Tobacco user Quit Date: 2006 Tobacco use type: Cigarette Years Smoked: 25 yrs e-Cigarette/Vaping Use: Never Used Substance Use Type: Former Substance User and Heroin Advance Directives Date on File: 03/21/21 service: No Current occupational status: unemployed and disabled Cognitive needs: No Hearing needs: No Vision needs: No Vital Signs 01/11/23 14:58 Height 5 ft 1 in Weight 190 lb BMI 35.9 BP 100/68 Blood Pressure Location Rt brachial Position Sitting Pulse 87 Pulse Source Pulse Oximeter Pulse Oximetry (%) 98 Oxygen Delivery Method Room Air Physical Exam Vital Signs: Last Vital Signs Pulse 87 01/11/23 14:58 BP 100/68 01/11/23 14:58 Pulse Ox 98 01/11/23 14:58 Oxygen Delivery Method Room Air 01/11/23 14:58 BMI result Body Mass Index 35.9 Deirdre comes in wheelchair. She does not show any respiratory distress. She is grossly obese as usual, She is alert and orientated. Oropharynx is clear. Chest percussion is resonant. Breath sounds are very diminished especially over the basilar areas. But I do not hear any wheezes rhonchi or crepitations today. She does have hypoventilation of the lower lobes. . Extremities no pitting edema is noted Extrem General: Yes edema Assessment & Plan Assessment & Plan (1) CKD (chronic kidney disease) stage 5, GFR less than 15 ml/min: Code(s): N18.5 - Chronic kidney disease, stage 5 Plan: Advanced CKD approaching end stage renal disease. No overt signs or symptoms of uremia. Goal is to slow the portion renal disease. We will continue to watch renal function closely and initiate dialysis when appropriate. (2) Anemia in chronic kidney disease: Code(s): N18.9 - Chronic kidney disease, unspecified; D63.1 - Anemia in chronic kidney disease Qualifiers: Chronic kidney disease stage: stage 5, not on chronic dialysis Qualified Code(s): N18.5 - Chronic kidney disease, stage 5; D63.1 - Anemia in chronic kidney disease Plan: No absolute indication to start erythropoietin yet. I will follow the hemoglobin along with iron stores and start on Neupogen as needed. (3) Acute exacerbation of chronic obstructive pulmonary disease: Code(s): J44.1 - Chronic obstructive pulmonary disease with (acute) exacerbation Plan: Management per PCP Continue DuoNeb updrafts q.i.d. and Breo-100 1 inhalation daily. Prednisone 20 mg b.i.d. for 7 days. Mucinex 600 mg b.i.d. also prescribed. (4) HTN (hypertension): Code(s): I10 - Essential (primary) hypertension Plan: Blood pressure is rather low. I will discontinue diltiazem. Continue with Coreg 3.125 b.i.d.. No changes were made to her diabetic regimen. Orders: Orders Electrolytes 4 Weeks N18.5 - Chronic kidney disease, stage 5 Blood Urea Nitrogen 4 Weeks N18.5 - Chronic kidney disease, stage 5 Complete Blood Count no Diff 4 Weeks N18.5 - Chronic kidney disease, stage 5 Creatinine 4 Weeks N18.5 - Chronic kidney disease, stage 5 Calcium 4 Weeks N18.5 - Chronic kidney disease, stage 5 Coding Level of Care Code Est Pt Level 4 (74139) Diagnoses CKD (chronic kidney disease) stage 5, GFR less than 15 ml/min N18.5 Anemia in stage 5 chronic kidney disease, not on chronic dialysis N18.5; D63.1 Chronic kidney disease stage: stage 5, not on chronic dialysis Acute exacerbation of chronic obstructive pulmonary disease J44.1 HTN (hypertension) I10 Results Reviewed Nephrology Results: Hgb 10.8 g/dl (12.0-16.0) L 12/16/22 WBC 17.1 X10*3/uL (4.8-10.8) H 12/16/22 Plt Count 468 X10*3/uL (160-400) H 12/16/22 Sodium 145 mmol/L (135-145) 01/09/23 Potassium 4.1 mmol/L (3.3-5.1) 01/09/23 Chloride 104 mmol/L (96-108) 01/09/23 Carbon Dioxide 24 mmol/L (22-29) 01/09/23 BUN 90 mg/dL (9-16) H 01/09/23 Creatinine 4.11 mg/dL (0.5-1.4) H* 01/09/23 Calcium 9.3 mg/dL (8.4-10.2) 01/09/23 Phosphorus 4.3 mg/dL (2.7-4.5) 12/16/22 Urine Protein Negative mg/dL (Neg-Trace) 01/05/23
[2023-01-11 14:58] VITALS: BP 100/68; PULSE 87; O2SAT 98; BMI 35.9
== END 2023-01-11 15:22 | disposition home or self-care (01) ==
PROVIDERS: PCP Internal Medicine; Visit Provider Internal Medicine Hypertension Specialist
DX: N18.5 Chronic kidney disease, stage 5 (principal); D63.1 Anemia in chronic kidney disease; J44.1 Chronic obstructive pulmonary disease with (acute) exacerbation; I12.0 Hypertensive chronic kidney disease with stage 5 chronic kidney disease or end stage renal disease
CPT/HCPCS: 99214

== ENCOUNTER 2023-01-26 13:33 | Outpatient (AMB) | payer MEDICARE, MEDICAID, SELFPAY ==
[2023-01-26 13:38] VITALS: BP 120/78; PULSE 91; O2SAT 95
--- NOTE | 2023-01-26 13:38 | MHC.OFFVIS ---
Intake Vital Signs 01/26/23 13:38 Height 5 ft 1 in BP 120/78 Blood Pressure Location Lt brachial Position Sitting Pulse 91 Pulse Source Pulse Oximeter Pulse Oximetry (%) 95 Oxygen Delivery Method Nasal Cannula Oxygen Flow Rate 2 Intake Visit Reasons: copd Intake Note: pt is here for follow up and states she is on her 2nd dose of prednisone and is starting to feel little better, she is coughing up thick and white in color, thicker and sticky. Tour Manager Required: No Allergies ciprofloxacin [From Cipro] Allergy (Severe, Verified 01/26/23 13:54) HIVES/SWELLING, THROAT CLOSES shellfish derived [SHELLFISH DERIVED] Allergy (Intermediate, Verified 01/26/23 13:54) Vomiting NSAIDS (Non-Steroidal Anti-Inflamma Adverse Reaction (Severe, Verified 01/26/23 13:54) Avoid due to kidney disease Medication List - Last Reconciled 01/26/23 by Mayte Cochran MD acetaminophen 650 mg PO Q6H PRN acetazolamide 250 mg PO DAILY 30 days aspirin 81 mg PO DAILY Breo Ellipta 100-25 mcg/dose (fluticasone furoate-vilanterol) 1 ea PO DAILY 90 days NS calcitriol 0.25 mcg PO DAILY carvedilol 3.125 mg PO BID clonazepam 1 mg PO BID PRN fluticasone propionate 50 mcg/actuation 1 spray intranasal DAILY guaifenesin ER (Mucinex) 600 mg PO BID 30 days hydroxyzine pamoate 100 mg PO BEDTIME PRN ipratropium-albuterol 0.5 mg-3 mg(2.5 mg base)/3 mL 3 mL inhalation Q4-6H PRN methadone 70 mg PO DAILY metolazone 2.5 mg PO MOWEFR@0900 prednisone 20 mg PO BID 10 days torsemide 20 mg PO BID Do you need a note to return to daycare/school/sports/work: No HPI copd HPI Details This 62 years old female has been doing well, however since a few days ago she started feeling more congested with increased cough and, increase mucus production. She had called over the telephone yesterday and we started her on prednisone 20 mg b.i.d.. Today she claims that she is already much better. She has no fever or chills. She is not overly sleepy during the daytime. She does walk with a cane, with her portable oxygen 2 L/mt. [facility] Medical History (Updated 01/26/23 @ 13:59 by Mayte Cochran MD) COPD (chronic obstructive pulmonary disease) CKD (chronic kidney disease) stage 5, GFR less than 15 ml/min Polysubstance abuse JOAN (acute kidney injury) Respiratory failure with hypoxia and hypercapnia Acute exacerbation of chronic obstructive pulmonary disease Tremor of both hands Ambulates with cane Seasonal allergies Herpes zoster Post covid-19 condition, unspecified Osteopenia (~2017) Obesity Respiratory failure COVID-19 (~03/2021) Osteoarthritis of ankles, bilateral Olecranon bursitis of left elbow Tubulovillous adenoma of large intestine (~2020) Hx of cardiac arrest (~2015) O2 dependent Methadone maintenance therapy patient History of claustrophobia History of seizure Anxiety and depression HTN (hypertension) Multiple fractures of ribs Anemia in chronic kidney disease Vitamin D deficiency Family history of colon cancer CKD (chronic kidney disease) stage 4, GFR 15-29 ml/min Dyslipidemia Restrictive lung disease Lung cancer (~2019) LEO (obstructive sleep apnea) Surgical History Hx of tracheostomy History of esophagogastroduodenoscopy (EGD) (~2021) History of removal of ureteral stent (~2013) History of lung biopsy (~2019) History of colonoscopy (~2020) Umbilical hernia History of laparoscopy (~2012) History of hand surgery History of tubal ligation Family History Father Diabetes mellitus Mother Depression Mental health disorder Maternal Grandfather Colon cancer Sister No problems noted. Son No problems noted. Daughter No problems noted. Daughter No problems noted. Social History Household Members: Unknown / Unable to assess Housing: House Housing Other:: mobile home Are you a primary primary care nurse to a significant other at home: No Do you presently have visiting nurse or other home services: Yes ([facility]NA daily) Unable to assess alcohol history related to: Unable to respond Alcohol intake: never Comment: restraints Patient Tobacco Use Status: Former Tobacco user Quit Date: 2006 Tobacco use type: Cigarette Years Smoked: 25 yrs e-Cigarette/Vaping Use: Never Used Substance Use Type: Former Substance User and Heroin Advance Directives Date on File: 03/21/21 service: No Current occupational status: unemployed and disabled Cognitive needs: No Hearing needs: No Vision needs: No Review of Systems Const All systems reviewed & are unremarkable except as noted in HPI and below Eyes Reports no additional complaints ENT Reports no additional complaints Card Denies chest pain, Denies irregular heart rhythm and Denies leg edema Resp Reports as per HPI and Reports other (RIGHT-SIDED RIBCAGE PAIN IS NEW DUE TO THE FALL AT HOME) GI Denies no additional complaints Denies no additional complaints Musc Reports abnormal gait (IMPAIRED LOCOMOTION, WALKS SLOW, WITH MINIMAL SUPPORT) and Reports back pain Skin/Breast Reports system reviewed and no additional complaints, except as documented Neuro Reports abnormal gait (IMPAIRED LOCOMOTION, WALKS SLOW, WITH MINIMAL SUPPORT) Psych Reports no additional complaints Physical Exam Vital Signs: Last Vital Signs Pulse 91 01/26/23 13:38 BP 120/78 01/26/23 13:38 Pulse Ox 95 01/26/23 13:38 Oxygen Delivery Method Nasal Cannula 01/26/23 13:38 Oxygen Flow Rate 2 01/26/23 13:38 Deirdre comes in wheelchair. She does not show any respiratory distress. She is grossly obese as usual, She is alert and orientated. Oropharynx is clear. Chest percussion is resonant. Breath sounds are very diminished especially over the basilar areas. But I do not hear any wheezes rhonchi or crepitations today. She does have hypoventilation of the lower lobes. . Extremities no pitting edema is noted Const General: healthy appearing, comfortable, no acute distress, alert and awake Orientation/consciousness: patient oriented x3 HEENT Head: Yes normal to inspection General nose exam: No nasal polyps present and No nasal discharge present Face and sinus: Yes sinuses nontender Mouth: oropharynx normal Throat: Yes posterior oropharynx normal Eyes General: appearance normal, both eyes and all related structures Neck Neck: Yes normal visual inspection, Yes no lymphadenopathy, Yes trachea midline and Yes no JVD Thyroid: Thyroid normal Cardio Palpation: normal PMI Rate: regular rate Rhythm: regular rhythm Heart sounds: Gallop heart sound present and Murmur heart sound present Peripheral pulses: Peripheral pulses 2+ throughout GI Palpation (GI): Soft to palpation, Tenderness to palpation present (GI), No hepatosplenomegaly present and Palpable mass present Auscultation: normal bowel sounds Back/Spine/Pelvis Thoracic/Lumbar Spine: thoracic and lumbar spine normal to inspection Skin General skin exam: no rashes or lesions noted Neuro General: patient oriented x3 and no focal motor deficits Cranial nerves: Yes CN's II-XII intact bilaterally Extrem General: Yes normal to inspection, Yes no clubbing, cyanosis or edema and Yes no calf tenderness Psych Speech and movement: Normal speech and movement present Assessment & Plan Assessment & Plan (1) Obesity: Comment: Patient is chronically obese, and not able to lose much weight. Code(s): E66.9 - Obesity, unspecified Qualifiers: Obesity type: unspecified obesity type Obesity classification: adult class 2 (BMI 35 - 39.9) Serious obesity comorbidity presence: with serious comorbidity Body mass index: BMI 39.0-39.9 Qualified Code(s): E66.01 - Morbid (severe) obesity due to excess calories; Z68.39 - Body mass index [BMI] 39.0-39.9, adult Plan: as above (2) COPD (chronic obstructive pulmonary disease): Comment: PATIENT HAS LONG-STANDING HISTORY OF CHRONIC OBSTRUCTIVE PULMONARY DISEASE PRIMARILY DUE TO HER LONG TIME SMOKING, SHE QUIT EARLIER THIS YEAR SHE GETS FREQUENT ACUTE EXACERBATION, HAD INCREASED SYMPTOMS AND SINCE YESTERDAY HAS BEEN ON PREDNISONE, WITH MUCH IMPROVEMENT. Code(s): J44.9 - Chronic obstructive pulmonary disease, unspecified Plan: CONTINUE PRESENT TREATMENT REGIMEN: BREO 100-251 INHALATION DAILY IPRATROPIUM-ALBUTEROL UPDRAFT Q 4-6 HOURS P.R.N. MUCINEX ER 600 MG B.I.D. PREDNISONE 20 MG A DAY FOR 5 DAYS THEN STOP. (3) Respiratory failure with hypoxia and hypercapnia: Comment: PATIENT HAS CHRONIC HYPOXEMIA WITH HYPERCAPNIA. CURRENTLY VERY STABLE, Code(s): J96.91 - Respiratory failure, unspecified with hypoxia; J96.92 - Respiratory failure, unspecified with hypercapnia Plan: CONTINUE O2 2 L/MINUTE 24 HOURS A DAY. ACETAZOLAMIDE 250 MG DAILY CONTINUE TO DO DEEP BREATHING EXERCISES WITH PURSED LIP TECHNIQUE. Coding Level of Care Code Est Pt Level 4 (41876) Diagnoses Class 2 severe obesity with serious comorbidity and body mass index (BMI) of 39.0 to 39.9 in adult, unspecified obesity type E66.01; Z68.39 Obesity type: unspecified obesity type Obesity classification: adult class 2 (BMI 35 - 39.9) Serious obesity comorbidity presence: with serious comorbidity Body mass index: BMI 39.0-39.9 COPD (chronic obstructive pulmonary disease) J44.9 Respiratory failure with hypoxia and hypercapnia J96.91; J96.92
== END 2023-01-26 13:51 | disposition home or self-care (01) ==
PROVIDERS: PCP Internal Medicine; Visit Provider Internal Medicine
DX: E66.01 Morbid (severe) obesity due to excess calories (principal); Z68.39 Body mass index [BMI] 39.0-39.9, adult; J44.9 Chronic obstructive pulmonary disease, unspecified; J96.91 Respiratory failure, unspecified with hypoxia; J96.92 Respiratory failure, unspecified with hypercapnia
CPT/HCPCS: 99214

== ENCOUNTER → 2023-01-26 13:33 | Outpatient (BNVA) | payer MEDICARE, MEDICAID, SELFPAY | PROVIDERS: PCP Internal Medicine; Visit Provider Internal Medicine | DX: J44.9 Chronic obstructive pulmonary disease, unspecified (principal); J96.91 Respiratory failure, unspecified with hypoxia; J96.92 Respiratory failure, unspecified with hypercapnia; E66.01 Morbid (severe) obesity due to excess calories; Z68.39 Body mass index [BMI] 39.0-39.9, adult | CPT/HCPCS: 99212 ==

== ENCOUNTER 2023-02-03 15:57 | Emergency (ER) | payer MEDICARE, MEDICAID, SELFPAY ==
--- NOTE | ~2023-02-03 | XR_ITS ---
EXAMINATION: XR CHEST CLINICAL INFORMATION: SOB COMPARISON: None available. TECHNIQUE: Frontal view of the chest was obtained. FINDINGS: The lungs are well-expanded with bandlike atelectasis right midlung and minimal platelike atelectasis left lung base. The heart size and pulmonary vascularity is normal. No there are old healed fractures right posterior midribs. No acute fractures seen. Patient is rotated to the right. XR/XR chest 1V IMPRESSION: No acute cardiopulmonary process seen.
--- NOTE | 2023-02-03 16:36 | ED.SKABFB ---
HPI - Skin/Abscess/Foreign Bdy General Chief complaint: General Medical Stated complaint: Lump in groin Time Seen by Provider: 02/03/23 22:55 History of Present Illness HPI narrative: The patient is a 62-year-old woman with a history of chronic kidney disease and chronic lung disease. She is on home oxygen. The patient says that over the last today she has developed a painful lump in her perineum. She has not had this kind of problem before. She also feels that she has worsening swelling of both of her legs admit she has some redness to both lower legs that she worries might be cellulitis. She has not had a fever. The patient says that she had a course of 3 days of an antibiotic for UTI recently. She is not sure of the name of the antibiotic or exactly how long ago she took the antibiotic. This was since her most recent hospitalization when she was intubated for respiratory failure. She is ambivalent as to whether she think she has any recurrent symptoms of UTI. Related Data Home Medications Medication Instructions Recorded Confirmed acetaminophen 325 mg tablet 650 mg PO Q6H PRN Pain 07/24/21 12/25/22 calcitriol 0.25 mcg capsule 0.25 mcg PO DAILY 12/17/21 12/25/22 methadone 10 mg/mL oral concentrate 70 mg PO DAILY 05/22/22 12/25/22 fluticasone propionate 50 1 spray intranasal DAILY 10/01/22 12/25/22 mcg/actuation nasal spray,suspension clonazepam 1 mg tablet 1 mg PO BID PRN Anxiety 12/13/22 12/25/22 hydroxyzine pamoate 100 mg capsule 100 mg PO BEDTIME PRN insomnia 12/13/22 12/25/22 metolazone 2.5 mg tablet 2.5 mg PO MOWEFR@0900 12/13/22 12/25/22 torsemide 20 mg tablet 20 mg PO BID 12/13/22 12/25/22 Previous Rx's Medication Instructions Recorded aspirin 81 mg tablet,delayed 81 mg PO DAILY #30 tabs 12/11/19 release Breo Ellipta 100 mcg-25 mcg/dose 1 ea PO DAILY copd 90 days #3 ea 04/10/22 powder for inhalation (fluticasone furoate-vilanterol) ipratropium 0.5 mg-albuterol 3 mg 3 ml inhalation Q4-6H PRN 10/15/22 (2.5 mg base)/3 mL nebulization shortness of breath or wheezing soln #180 mL guaifenesin 600 mg tablet, 600 mg PO BID copd/Mucus 30 days 10/27/22 extended release 12 hr (Mucinex) #60 tabs acetazolamide 250 mg tablet 250 mg PO DAILY respiratory 12/24/22 failure 30 days #30 tabs carvedilol 3.125 mg tablet 3.125 mg PO BID #180 tabs 12/25/22 prednisone 20 mg tablet 20 mg PO BID copd excerbation 10 01/25/23 days #20 tabs Allergies Allergy/AdvReac Type Severity Reaction Status Date / Time ciprofloxacin [From Cipro] Allergy Severe HIVES/SWELLING, Verified 01/26/23 13:54 THROAT CLOSES shellfish derived Allergy Intermediate Vomiting Verified 01/26/23 13:54 [SHELLFISH DERIVED] NSAIDS (Non-Steroidal AdvReac Severe Avoid due Verified 01/26/23 13:54 Anti-Inflamma to kidney disease Review of Systems Review of Systems: Yes all other systems are reviewed and are negative [facility] Past Medical History Medical History (Updated 02/04/23 @ 01:19 by Gerry Jay MD) COPD (chronic obstructive pulmonary disease) CKD (chronic kidney disease) stage 5, GFR less than 15 ml/min Polysubstance abuse JOAN (acute kidney injury) Respiratory failure with hypoxia and hypercapnia Acute exacerbation of chronic obstructive pulmonary disease Tremor of both hands Ambulates with cane Seasonal allergies Herpes zoster Post covid-19 condition, unspecified Osteopenia (~2017) Obesity Respiratory failure COVID-19 (~03/2021) Osteoarthritis of ankles, bilateral Olecranon bursitis of left elbow Tubulovillous adenoma of large intestine (~2020) Hx of cardiac arrest (~2015) O2 dependent Methadone maintenance therapy patient History of claustrophobia History of seizure Anxiety and depression HTN (hypertension) Multiple fractures of ribs Anemia in chronic kidney disease Vitamin D deficiency Family history of colon cancer CKD (chronic kidney disease) stage 4, GFR 15-29 ml/min Dyslipidemia Restrictive lung disease Lung cancer (~2019) LEO (obstructive sleep apnea) Surgical History (Updated 02/03/23 @ 00:04 by Misbah Villa) Hx of tracheostomy History of esophagogastroduodenoscopy (EGD) (~2021) History of removal of ureteral stent (~2013) History of lung biopsy (~2019) History of colonoscopy (~2020) Umbilical hernia History of laparoscopy (~2012) History of hand surgery History of tubal ligation Family History Family History Father Diabetes mellitus Mother Depression Mental health disorder Maternal Grandfather Colon cancer Sister No problems noted. Son No problems noted. Daughter No problems noted. Daughter No problems noted. Social History Social History Household Members: Unknown / Unable to assess Housing: House Housing Other:: mobile home Are you a primary family day care provider to a significant other at home: No Do you presently have visiting nurse or other home services: Yes (VNA daily) Unable to assess alcohol history related to: Unable to respond Alcohol intake: never Comment: restraints Patient Tobacco Use Status: Former Tobacco user Quit Date: 2006 Tobacco use type: Cigarette Years Smoked: 25 yrs Smoked in Last 30 Days: No e-Cigarette/Vaping Use: Never Used Use of substances other than those prescribed or required for medical reasons: No Substance Use Type: Former Substance User and Heroin Advance Directives: Yes Advance Directives on File: Yes Advance Directives Date on File: 03/21/21 Patient : No service: No Current occupational status: unemployed and disabled Cognitive needs: No Hearing needs: No Vision needs: No Physical Exam Vital Signs: Vital Signs: Last Vital Signs Temp 98.5 F 02/04/23 00:02 Pulse 113 H 02/04/23 00:02 Resp 18 02/04/23 00:02 BP 120/64 02/04/23 00:02 Pulse Ox 99 02/04/23 00:02 O2 Del Method Nasal Cannula 02/04/23 00:02 O2 Flow Rate 2 02/04/23 00:02 Oxygen Flow Rate 2 02/03/23 16:38 BMI result Body Mass Index 37.4 Const: Other: The patient is a chronically ill-appearing 62-year-old woman wearing nasal oxygen. She looks quite chronically ill but not obviously acutely ill or in obvious distress. HEENT: Head: Yes normal to inspection Face and sinus: Yes normal facial exam Mouth: Normal oral and palatal mucosa present, oropharynx normal and moist mucous membranes Eyes: General: appearance normal, both eyes and all related structures Neck: Neck: Yes no JVD Resp: Effort & Inspection: normal respiratory effort Auscultation: clear to auscultation bilaterally Cardio: Other: The patient is mildly tachycardic. She has a regular heart rate. No definite murmur. GI: Other: Soft and nontender : Other: The patient's chief complaint was that she had a painful lump between her legs between her vagina and her anus. I examined the patient with shed workers supervisor. There was no lump or swelling anywhere in the perineum that I could appreciate. I asked the patient to show me where she felt the lump was a when she examined herself she could not find either. I performed a digital rectal exam and a digital vaginal exam and did not appreciate any swellings or other abnormalities. Skin: Other: The patient has edema of both lower legs. There are erythematous changes to the lower portion of both lower legs. These erythematous changes are very poorly demarcated and are not particularly warm. Neuro: Other: The patient is awake and alert. She is a chronically ill deconditioned 62-year-old but she has no focal findings. Speech is clear. Face is symmetrical. She moves all 4 extremities symmetrically. Extrem: Other: The patient has symmetrical peripheral edema to both lower legs. There is diffuse poorly demarcated erythema to the lower portion of both lower legs. The erythema is not particularly tender. The edema is 1 to 2+ pitting. Course Course Course Narrative: RME: 62 year old female PMHx COPD on home O2, lung cancer, CKD, LEO, polysubstance use, anxiety presenting to the ED c/o lump in groin (?perineum) x few days w/dysuria and hematuria. Also reports b/l lower extremity swelling and erythema w/worsening SOB. denies drainage/open, fever. +constipation chronically from hernia. Partner states lump is the size of a Kiwi +b/l LE edema, erythema & warmth. . Area not able to be evaluated in triage EKG, Labs, UA ordered Full HPI, ROS and PE to be performed by primary ED provider. Medical Decision Making Medical Decision Making MDM Narrative: The patient presented with a chief complaint of a painful lump between her vagina and her anus. She said she had been feeling this for the last 2 days. My assumption was that she might have some kind of perineal abscess. When I examined her our there was no evidence of abscess or any other swelling either in the perianal area or the vaginal area or the perineal area generally. The patient examined herself and confirm that this swelling no longer seemed to be present. The patient was also concerned about the redness on both of her lower legs and she was wondering whether she might have cellulitis. I think the legs have more the appearance of dependent rubor and cellulitis. She has not had fever. The redness is not particularly warm or tender. The redness is quite symmetrical on both legs. Patient was also concerned that she had received a course of antibiotics recently for UTI and she thought that perhaps she might have ongoing UTI symptoms. She was quite vague about the symptoms. We obtained a catheterized urinalysis that did not suggest a urinary tract infection. Patient's labs show a white count of 12.7 which is less than recent white counts. She has a differential that shows 63% neutrophils, 19.5% lymphocytes, and 15.5% monocytes. Her metabolic panel is consistent with her chronic kidney disease. She has a creatinine of 3.71 and a BUN of 64. Both of these values are somewhat better than earlier this month. Her lactic acid is normal at 1.2. Overall, although the patient is quite chronically ill, I am not finding any definite acute problems that I think require further investigation in the emergency room or hospitalization. Her demeanor is benign and nontoxic. I think she may be discharged to stay in touch with her primary care doctor and her geriatric psychiatrist regarding her worsening lower extremity edema. She should return if worse. Lab Data 02/03/23 20:46 02/03/23 20:45 Labs: Lab Results 02/03/23 02/03/23 02/04/23 Range/Units 20:45 20:46 00:15 WBC 12.7 H (4.8-10.8) X10*3/uL RBC 3.09 L (4.20-5.50) X10*6/uL Hgb 8.6 L D (12.0-16.0) g/dl Hct 27.8 L D (37.0-47.0) % MCV 90.0 (80.0-98.0) fL MCH 27.8 (27.0-33.0) pg MCHC 30.9 L (31.0-35.0) g/dl RDW 13.2 (11.0-16.0) % Plt Count 350 D (160-400) X10*3/uL MPV 9.4 (9.4-12.3) fL Immature Gran % (Auto) 1.6 H (0.0-0.4) % Neut % (Auto) 63.2 (45-73) % Lymph % (Auto) 19.5 L (20-40) % [place] % (Auto) 15.5 H (2-11) % Eos % (Auto) 0.0 (0-4) % Baso % (Auto) 0.2 (0-2) % Lymph # (Auto) 2.5 (1.2-4.9) X10*3/uL [place] # (Auto) 2.0 H (0.1-1.2) X10*3/uL Eos # (Auto) 0.0 (0.0-0.4) X10*3/uL Baso # (Auto) 0.0 (0.0-0.2) X10*3/uL Abs Immat Gran (auto) 0.21 H (0.00-0.03) X10*3/uL Absolute Neuts (auto) 8.1 (2.0-8.3) x10*3/uL Absolute Nucleated RBC 0.000 (0.0-0.012) X10*3/uL Nucleated RBC % (auto) 0.0 (0.0-0.2) /100WBC PT 11.9 (11.1-13.3) SEC INR 1.0 (0.9-1.1) Sodium 143 (135-145) mmol/L Potassium 3.4 (3.3-5.1) mmol/L Chloride 99 (96-108) mmol/L Carbon Dioxide 31 H (22-29) mmol/L Anion Gap 16 (12-20) BUN 64 H (9-16) mg/dL Creatinine 3.71 H (0.5-1.4) mg/dL Estim Creat Clear Calc 16.4 Estimated GFR 12 Random Glucose 73 (60-115) mg/dL Lactic Acid 1.2 (0.5-2.0) mmol/L Calcium 9.8 (8.4-10.2) mg/dL Total Bilirubin 0.2 (0.0-1.0) mg/dL Direct Bilirubin < 0.2 (0.0-0.5) mg/dL AST 17 (5-31) U/L ALT 12 (0-31) U/L Alkaline Phosphatase 84 (39-117) U/L C-Reactive Protein 14.18 H (< or = 0.50) mg/dL B-Natriuretic Peptide 44 (<100) pg/mL Total Protein 7.3 (6.5-8.0) g/dL Albumin 3.7 (3.5-5.0) g/dL Urine Color Yellow Urine Appearance Clear Urine pH 7.0 (5.0-9.0) Ur Specific [place] 1.010 (1.005-1.025) Urine Protein 30 (1+) H (Neg-Trace) mg/dL Urine Glucose (UA) Negative (Negative) mg/dL Urine Ketones Negative (Negative) mg/dL Urine Blood Negative (Negative) Urine Nitrite Negative (Negative) Ur Leukocyte Esterase Trace H (Negative) Urine RBC 0-2 (0-2) /HPF Urine WBC 0-5 (0-5) /HPF Ur Squamous Epith Cells 0-2 (0-2) /HPF Urine Bacteria None Seen (None Seen) Hyaline Casts 0-2 (0-2) /LPF Discharge Plan Discharge Clinical Impression: Dependent rubor, Peripheral edema Patient Disposition: Home, Self-Care Additional Instructions: It is not clear what was causing the lump between your legs. No lump seems apparent right now. I think the redness severe lower legs is more related to your edema than an infection. Your urinalysis today does not suggest that you have an ongoing urinary tract infection. Please continue your regular medications. Please stay in touch with your kidney doctor regarding the edema on your legs. Monitor yourself for fever at home. Return to the emergency room if significantly worse. Prescriptions: No Action aspirin 81 mg tablet,delayed release (DR/EC) 81 mg PO DAILY Qty: 30 0RF fluticasone furoate-vilanterol [Breo Ellipta] 100-25 mcg/dose blister with device 1 ea PO DAILY 90 Days Qty: 3 3RF ipratropium-albuterol 0.5 mg-3 mg(2.5 mg base)/3 mL solution for nebulization 3 ml inhalation Q4-6H PRN (Reason: shortness of breath or wheezing) Qty: 180 0RF guaifenesin [Mucinex] 600 mg tablet extended release 12hr 600 mg PO BID 30 Days Qty: 60 3RF carvedilol 3.125 mg tablet 3.125 mg PO BID Qty: 180 1RF prednisone 20 mg tablet 20 mg PO BID 10 Days Qty: 20 1RF acetaminophen 325 mg Tablet 650 mg PO Q6H PRN (Reason: Pain) hydroxyzine pamoate 100 mg capsule 100 mg PO BEDTIME PRN (Reason: insomnia) metolazone 2.5 mg tablet 2.5 mg PO MOWEFR@0900 torsemide 20 mg tablet 20 mg PO BID clonazepam 1 mg tablet 1 mg PO BID PRN (Reason: Anxiety) calcitriol 0.25 mcg capsule 0.25 mcg PO DAILY methadone 10 mg/mL concentrate 70 mg PO DAILY Patient Comments: [facility] fluticasone propionate 50 mcg/actuation spray,suspension 1 spray intranasal DAILY acetazolamide 250 mg tablet 250 mg PO DAILY 30 Days Qty: 30 5RF Referrals: Fermin Muhammad MD [Physician] - (Peripheral edema) Valerie Castano MD [Primary Care Provider] - (Peripheral edema, dependent rubor) Interventions: ED Discharge Assessment Last Done: 02/04/23 01:28 Discharge Date/Time: 02/04/23 02:14
[2023-02-03 16:38] VITALS: BP 121/62; PULSE 107; RESP 18; TEMP 36.7; O2SAT 97; BMI 37.4
[2023-02-03 20:55] LABS: MANUAL DIFF FLAG NO
[2023-02-03 20:57] LABS: Basophils Percent Auto 0.2 % (0-2); Hematocrit 27.8 % (37.0-47.0); Hemoglobin 8.6 g/dl (12.0-16.0); Imm Gran Abs Auto 0.21 X10*3/uL (0.00-0.03); Imm Gran Pct Auto 1.6 % (0.0-0.4); Lymphocytes Absolute Auto 2.5 X10*3/uL (1.2-4.9); Lymphocytes Percent Auto 19.5 % (20-40); Mean Corpuscular HGB Conc 30.9 g/dl (31.0-35.0); Mean Corpuscular Hemoglobin 27.8 pg (27.0-33.0); Mean Platelet Volume 9.4 fL (9.4-12.3); Monocytes Percent Auto 15.5 % (2-11); Neutrophils Absolute Auto 8.1 x10*3/uL (2.0-8.3); Neutrophils Percent Auto 63.2 % (45-73); Platelet Count 350 X10*3/uL (160-400); Red Blood Count 3.09 X10*6/uL (4.20-5.50); Red Cell Distribution Width 13.2 % (11.0-16.0); SCAN SMEAR FLAG 1; White Blood Count 12.7 X10*3/uL (4.8-10.8)
[2023-02-03 21:02] LABS: Prothrombin Time 11.9 SEC (11.1-13.3)
[2023-02-03 21:08] LABS: Lactic Acid 1.2 mmol/L (0.5-2.0)
[2023-02-03 21:13] LABS: Alanine Aminotransferase 12 U/L (0-31); Albumin Level 3.7 g/dL (3.5-5.0); Alkaline Phosphatase 84 U/L (39-117); Anion Gap 16 (12-20); Aspartate Amino Transferase 17 U/L (5-31); Bilirubin Direct < 0.2 mg/dL (0.0-0.5); Bilirubin Total 0.2 mg/dL (0.0-1.0); Blood Urea Nitrogen 64 mg/dL (9-16); Calcium 9.8 mg/dL (8.4-10.2); Carbon Dioxide 31 mmol/L (22-29); Chloride 99 mmol/L (96-108); Creatinine Clr Calc Pharmacy 16.4; Estimated Glomerular Filt Rate 12; Glucose Random 73 mg/dL (60-115); Potassium 3.4 mmol/L (3.3-5.1); Sodium 143 mmol/L (135-145); Total Protein 7.3 g/dL (6.5-8.0)
[2023-02-03 21:18] LABS: B Type Natriuretic Peptide 44 pg/mL (<100)
[2023-02-03 23:15] VITALS: PULSE 116; RESP 20; TEMP 37.4; O2SAT 94
--- NOTE | 2023-02-03 23:23 | ECG_ITS ---
Test Reason : TACHYCARDIA Blood Pressure : / mmHG Vent. Rate : 111 BPM Atrial Rate : 111 BPM P-R Int : 148 ms QRS Dur : 092 ms QT Int : 350 ms P-R-T Axes : 065 051 036 degrees QTc Int : 476 ms Artifact in tracing Sinus tachycardia with occasional Premature ventricular complexes Otherwise normal ECG When compared with ECG of 12-DEC-2022 19:25, Premature ventricular complexes are now Present Referred By: Gerry Jay Electronically Signed By:YUNIOR BARON
[2023-02-04 00:02] VITALS: BP 120/64; PULSE 113; RESP 18; TEMP 36.9; O2SAT 99
[2023-02-04 00:15] LABS: C Reactive Protein 14.18 mg/dL (< or = 0.50)
--- NOTE | 2023-02-04 00:20 | PC.NURSE ---
pt ambulated to and from [facility] with PCT. pt becomes sob with exertio states this is normal for her, wears 2L o2 at baseline. pt back in stretcher resting comfortably, plan of care ongoing
[2023-02-04 00:30] LABS: Appearance Urine Clear; Color Urine Yellow; Glucose Urine UA Negative (Negative); Leukocyte Esterase Urine Trace (Negative); Nitrite Urine Negative (Negative); UMIC TRIGGER UACC YES; Urine Blood Negative (Negative); Urine Ketones Negative (Negative); Urine Protein 30 (1+) mg/dL (Neg-Trace)
[2023-02-04 00:33] LABS: Bacteria Urine None Seen (None Seen); Hyaline Casts Urine 0-2 /LPF (0-2); RBC Urine 0-2 /HPF (0-2); Squamous Epithelial Cell Urine 0-2 /HPF (0-2); WBC Urine 0-5 /HPF (0-5)
--- NOTE | 2023-02-04 01:43 | MHC.EDTECH ---
call out to annia at 0142 to book transfer back home, estimated eta given [phone]
--- NOTE | 2023-02-04 01:43 | PC.NURSE ---
pt waiting for ambulance transport back home as pt is O2 dependent and a high fall risk
== END 2023-02-04 02:14 | disposition home or self-care (01) ==
PROVIDERS: Physician Assistant; Emergency Provider Emergency Medicine; PCP Internal Medicine
DX: R60.0 Localized edema (principal); L53.8 Other specified erythematous conditions; R39.9 Unspecified symptoms and signs involving the genitourinary system; J98.4 Other disorders of lung; J44.9 Chronic obstructive pulmonary disease, unspecified; I12.0 Hypertensive chronic kidney disease with stage 5 chronic kidney disease or end stage renal disease; N18.5 Chronic kidney disease, stage 5; Z99.81 Dependence on supplemental oxygen
CPT/HCPCS: 36415; 51701; 71045; 80048; 80076; 81001; 83605; 83880; 85025; 85610; 86140; 87040; 93005; 99283; 99284

== ENCOUNTER → 2023-02-03 23:23 | Outpatient (BNV) | payer MEDICARE, MEDICAID, SELFPAY | PROVIDERS: Emergency Provider Emergency Medicine; PCP Internal Medicine; Visit Provider Internal Medicine | DX: R00.0 Tachycardia, unspecified (principal); I49.3 Ventricular premature depolarization | CPT/HCPCS: 93010 ==

== ENCOUNTER 2023-02-18 13:58 | Outpatient (REF) | payer MEDICARE, MEDICAID, SELFPAY ==
[2023-02-18 16:22] LABS: Hematocrit 31.9 % (37.0-47.0); Hemoglobin 9.6 g/dl (12.0-16.0); Mean Corpuscular HGB Conc 30.1 g/dl (31.0-35.0); Mean Corpuscular Hemoglobin 28.4 pg (27.0-33.0); Mean Corpuscular Volume 94.4 fL (80.0-98.0); Mean Platelet Volume 9.8 fL (9.4-12.3); Platelet Count 375 X10*3/uL (160-400); Red Blood Count 3.38 X10*6/uL (4.20-5.50); Red Cell Distribution Width 13.7 % (11.0-16.0); White Blood Count 8.7 X10*3/uL (4.8-10.8)
[2023-02-18 16:44] LABS: Anion Gap 13 (12-20); Blood Urea Nitrogen 24 mg/dL (9-16); Calcium 9.8 mg/dL (8.4-10.2); Carbon Dioxide 27 mmol/L (22-29); Chloride 108 mmol/L (96-108); Estimated Glomerular Filt Rate 14; Potassium 4.8 mmol/L (3.3-5.1); Sodium 143 mmol/L (135-145)
== END 2023-02-18 13:59 | disposition home or self-care (01) ==
LOC: HO.HMGCLDS 13:58
PROVIDERS: PCP Internal Medicine; Visit Provider Internal Medicine Hypertension Specialist
DX: N18.5 Chronic kidney disease, stage 5 (principal)
CPT/HCPCS: 36415; 80051; 82310; 82565; 84520; 85027

== ENCOUNTER 2023-02-22 14:58 | Outpatient (AMB) | payer MEDICARE, MEDICAID, SELFPAY ==
--- NOTE | 2023-02-22 15:06 | HO.NEPHOV_ITS ---
HPI HPI Comments History of Present Illness Details 62 years old female with advanced chroni c obstructive pulmonary disease and chronic respiratory failure, on oxygen, and treated for acute exacerbation of COPD/respiratory failure, was able to normalize blood gases with aggressive treatment. She has advanced CKD approaching end stage renal disease. She has significant fluid overload requiring high-dose of diuretics. She is here for further follow-up. Recently admitted for respiratory illness and was treated with a course of prednisone. During hospitalization diltiazem has been discontinued but she is still taking it. 02/22/23: Doing better No new issues [facility] Medical History (Updated 02/05/23 @ 00:03 by Misbah Villa) COPD (chronic obstructive pulmonary disease) CKD (chronic kidney disease) stage 5, GFR less than 15 ml/min Polysubstance abuse JOAN (acute kidney injury) Respiratory failure with hypoxia and hypercapnia Acute exacerbation of chronic obstructive pulmonary disease Tremor of both hands Ambulates with cane Seasonal allergies Herpes zoster Post covid-19 condition, unspecified Osteopenia (~2017) Obesity Respiratory failure COVID-19 (~03/2021) Osteoarthritis of ankles, bilateral Olecranon bursitis of left elbow Tubulovillous adenoma of large intestine (~2020) Hx of cardiac arrest (~2015) O2 dependent Methadone maintenance therapy patient History of claustrophobia History of seizure Anxiety and depression HTN (hypertension) Multiple fractures of ribs Anemia in chronic kidney disease Vitamin D deficiency Family history of colon cancer CKD (chronic kidney disease) stage 4, GFR 15-29 ml/min Dyslipidemia Restrictive lung disease Lung cancer (~2019) LEO (obstructive sleep apnea) Surgical History Hx of tracheostomy History of esophagogastroduodenoscopy (EGD) (~2021) History of removal of ureteral stent (~2013) History of lung biopsy (~2019) History of colonoscopy (~2020) Umbilical hernia History of laparoscopy (~2012) History of hand surgery History of tubal ligation Family History Father Diabetes mellitus Mother Depression Mental health disorder Maternal Grandfather Colon cancer Sister No problems noted. Son No problems noted. Daughter No problems noted. Daughter No problems noted. Social History Household Members: Unknown / Unable to assess Housing: House Housing Other:: mobile home Are you a primary field care coordinator to a significant other at home: No Do you presently have visiting nurse or other home services: Yes (VNA daily) Unable to assess alcohol history related to: Unable to respond Alcohol intake: never Comment: restraints Patient Tobacco Use Status: Former Tobacco user Quit Date: 2006 Tobacco use type: Cigarette Years Smoked: 25 yrs e-Cigarette/Vaping Use: Never Used Substance Use Type: Former Substance User and Heroin Advance Directives Date on File: 03/21/21 service: No Current occupational status: unemployed and disabled Cognitive needs: No Hearing needs: No Vision needs: No Vital Signs 02/22/23 15:07 Height 5 ft 1 in Weight 197 lb 2 oz BMI 37.2 BP 118/70 Blood Pressure Location Rt brachial Position Sitting Pulse 106 H Pulse Source Pulse Oximeter Pulse Oximetry (%) 94 Oxygen Delivery Method Nasal Cannula Physical Exam Vital Signs: Last Vital Signs Pulse 106 H 02/22/23 15:07 BP 118/70 02/22/23 15:07 Pulse Ox 94 02/22/23 15:07 Oxygen Delivery Method Nasal Cannula 02/22/23 15:07 BMI result Body Mass Index 37.2 Const General: comfortable Nutritional Appearance: well nourished Orientation/consciousness: patient oriented x3 HEENT Head: No normal to inspection Mouth: moist mucous membranes Neck Neck: Yes supple and Yes no JVD Resp Auscultation: clear to auscultation bilaterally, no rales and rub present Cardio Jugular venous distension: no JVD Palpation: no palpable S3 and no palpable S4 Heart sounds: no rubs GI Palpation (GI): Soft to palpation and nontender Percussion: No Fluid wave present General: Yes no CVA tenderness Back/Spine/Pelvis Back: no CVA tenderness Skin General skin exam: no rashes or lesions noted Neuro General: patient oriented x3 Extrem General: No clubbing Assessment & Plan Assessment & Plan (1) CKD (chronic kidney disease) stage 5, GFR less than 15 ml/min: Code(s): N18.5 - Chronic kidney disease, stage 5 Plan: Advanced CKD approaching end stage renal disease. No overt signs or symptoms of uremia. Goal is to slow the portion renal disease. We will continue to watch renal function closely and initiate dialysis when appropriate. (2) Anemia in chronic kidney disease: Code(s): N18.9 - Chronic kidney disease, unspecified; D63.1 - Anemia in chronic kidney disease Qualifiers: Chronic kidney disease stage: stage 5, not on chronic dialysis Qualified Code(s): N18.5 - Chronic kidney disease, stage 5; D63.1 - Anemia in chronic kidney disease Plan: No absolute indication to start erythropoietin yet. Hct has improved I will follow the hemoglobin along with iron stores and start on epogen as needed. (3) Acute exacerbation of chronic obstructive pulmonary disease: Code(s): J44.1 - Chronic obstructive pulmonary disease with (acute) exacerbation Plan: Management per PCP Continue DuoNeb updrafts q.i.d. and Breo-100 1 inhalation daily. Prednisone 20 mg b.i.d. for 7 days. Mucinex 600 mg b.i.d. also prescribed. (4) HTN (hypertension): Code(s): I10 - Essential (primary) hypertension Plan: Blood pressure is better controlled No need for CArdizem ( was stopepd in Jan 2023) Continue with Coreg 3.125 b.i.d.. No changes were made to her diabetic regimen. Coding Level of Care Code Est Pt Level 4 (49779) Diagnoses CKD (chronic kidney disease) stage 5, GFR less than 15 ml/min N18.5 Anemia in stage 5 chronic kidney disease, not on chronic dialysis N18.5; D63.1 Chronic kidney disease stage: stage 5, not on chronic dialysis Acute exacerbation of chronic obstructive pulmonary disease J44.1 HTN (hypertension) I10 Results Reviewed Nephrology Results: Hgb 9.6 g/dl (12.0-16.0) L 02/18/23 WBC 8.7 X10*3/uL (4.8-10.8) 02/18/23 Plt Count 375 X10*3/uL (160-400) 02/18/23 Sodium 143 mmol/L (135-145) 02/18/23 Potassium 4.8 mmol/L (3.3-5.1) 02/18/23 Chloride 108 mmol/L (96-108) 02/18/23 Carbon Dioxide 27 mmol/L (22-29) 02/18/23 BUN 24 mg/dL (9-16) H 02/18/23 Creatinine 3.35 mg/dL (0.5-1.4) H 02/18/23 Calcium 9.8 mg/dL (8.4-10.2) 02/18/23 Urine Protein 30 (1+) mg/dL (Neg-Trace) H 02/04/23
[2023-02-22 15:07] VITALS: BP 118/70; PULSE 106; O2SAT 94; BMI 37.2
== END 2023-02-22 15:22 | disposition home or self-care (01) ==
PROVIDERS: PCP Internal Medicine; Visit Provider Internal Medicine Hypertension Specialist
DX: N18.5 Chronic kidney disease, stage 5 (principal); D63.1 Anemia in chronic kidney disease; J44.1 Chronic obstructive pulmonary disease with (acute) exacerbation; I12.0 Hypertensive chronic kidney disease with stage 5 chronic kidney disease or end stage renal disease
CPT/HCPCS: 99214

== ENCOUNTER → 2023-02-22 14:58 | Outpatient (BNVA) | payer MEDICARE, MEDICAID, SELFPAY | PROVIDERS: PCP Internal Medicine; Visit Provider Internal Medicine Hypertension Specialist | DX: I12.9 Hypertensive chronic kidney disease with stage 1 through stage 4 chronic kidney disease, or unspecified chronic kidney disease (principal); N18.5 Chronic kidney disease, stage 5; D63.1 Anemia in chronic kidney disease; J44.1 Chronic obstructive pulmonary disease with (acute) exacerbation | CPT/HCPCS: 99212 ==

== ENCOUNTER → 2023-03-10 23:59 | Outpatient (BNV) | payer MEDICARE, MEDICAID, SELFPAY | PROVIDERS: PCP Internal Medicine; Visit Provider Internal Medicine | DX: N18.4 Chronic kidney disease, stage 4 (severe) (principal); F41.1 Generalized anxiety disorder | CPT/HCPCS: G0179 ==

== ENCOUNTER 2023-04-06 12:27 | Outpatient (AMB) | payer MEDICARE, MEDICAID, SELFPAY ==
--- NOTE | 2023-04-06 12:47 | A.OFFVIS_ITS ---
Intake Vital Signs 3 04/06/23 12:48 Height 5 ft 1 in Weight 199 lb 11.821 oz BMI 37.7 BP 127/78 Blood Pressure Location Rt brachial Position Sitting Pulse 96 Intake Visit Reasons: Tubulovillous Adenoma of large intestine Intake Note: Pt presents to the office today in follow up to discuss colonoscopy screening. CC: Patient c/o some abd pain, and nausea. Patient also reports lump form perineum the protrudes when she has a BM. She also c/o occasional blood in stool. Youth Minister Required: No Accompanied by: Significant Other Allergies ciprofloxacin [From Cipro] Allergy (Severe, Verified 04/06/23 12:57) HIVES/SWELLING, THROAT CLOSES shellfish derived [SHELLFISH DERIVED] Allergy (Intermediate, Verified 04/06/23 12:57) Vomiting NSAIDS (Non-Steroidal Anti-Inflamma Adverse Reaction (Severe, Verified 04/06/23 12:57) Avoid due to kidney disease HPI Tubulovillous Adenoma of large intestine 2 HPI0 Details Assessment & Plan (1) Tubulovillous adenoma of large intes seymour: Onset Date: ~2020 Comment: (TA 2015 & TVA on 10/2020 scope - repeat 1-2 years)co morbid conditions of chronic kidney disease stage 4, a history of respiratory failure with severe COPD,. A seizure history, and a history of lung cancer her 10 year survival rate is difficult to predict. If she does decide to go forward with the procedure she likely needs to have it at [facility] due to her complexity Cologuard resulted 10/28/2022 was negative Code(s): D12.6 - Benign neoplasm of colon, unspecified (2) CKD (chronic kidney disease) stage 4 , GFR 15-29 ml/min: Comment: (Followed by Dr. Muhammad - [facility] [place]) Code(s): N18.4 - Chronic kidney disease, stage 4 (severe) (3) COPD (chronic obstructive pulmonary disease): Comment: PATIENT HAS LONG-STANDING HISTORY OF CHRONIC OBSTRUCTIVE PULMONARY DISEASE PRIMARILY DUE TO HER LONG TIME SMOKING, BUT QUIT EARLIER THIS YEAR. TX: UNDER COPD EXACERBATION Code(s): J44.9 - Chronic obstructive pulmonary disease, unspecified (4) Methadone maintenance therapy patien t: Code(s): F11.20 - Opioid dependence, uncomplicated (5) Lung cancer: Onset Date: ~2019 Comment: (Adenocarcinoma RML Dx 02/20/2019 - s/p S BRT complete 05/19/2019) Treatment has been successful, the neoplastic nodule seems to have resolved. Last CT scan of the chest performed at [facility] in September 2020, showed that there was no residual mass. This patient has lost follow-up at [facility]. Code(s): C34.90 - Malignant neoplasm of unspecified part of unspecified bronchus or lung (6) Restrictive lung disease: Comment: SHE HAS SIGNIFICANT DEGREE OF RESTRICTIVE PULMONARY DISORDER, PRIMARILY DUE TO MORBID OBESITY. ADVISE THAT SHE SHOULD CONTINUE TO DO DEEP BREATHING EXERCISES BEFORE. Code(s): J98.4 - Other disorders of lung (7) LEO (obstructive sleep apnea): Comment: SHE HAS HAD HISTORY OF LEO/CHRONIC HYPOVENTILATION SYNDROME. She had stopped using the CPAP. Now when she was in the hospital BiPAP treatment at nighttime was tried but she was not able to tolerate the BiPAP at all. Code(s): G47.33 - Obstructive sleep apnea (adult) (pediatric) Plan We discussed that the Cologuard was negative. I also gave her clear picture of the risks versus benefits and potential for false negatives with this test. I again stressed that she is a difficult case because she has a high risk for sedation and analgesia but with a history of a tubulovillous adenoma she is also a high risk for colon cancer. However, she has a realistic few that given her co morbid conditions of chronic kidney disease stage 4, a history of respiratory failure with severe COPD,. A seizure history, and a history of lung cancer her 10 year survival rate is difficult to predict. Right now she is busy dealing with her renal status as it is likely she will need a fistula and to begin hemodialysis. She would like to put off any decisions about a procedure until this situation is stable. I certainly can understand this. If she does decide to go forward with the procedure she likely needs to have it at [facility] due to her complexity. I offered to have her follow-up with me in 6 months to year to see what she is thinking than but she declines for now and says she will call us when she is ready. She is here today with a family member who is supportive. CORRESPONDENCE On 10/19/22 @ 11:40 Valerie Castano Wrote To Cinthia Jones noted , cologuard ordered On 10/19/22 @ 11:25 Berenice Hernandez Wrote To Valerie Castano (2) The I think it is better that we redirect Deirdre back to her primary care provider with the following information and have them schedule any appointments for clearance and then send us approval. Obviously she is a high risk for colon cancer with a history of a tubulovillous adenoma. In the meantime I suggest we send a Cologuard kit. On 10/15/22 @ 16:28 Faviola Alberto Wrote To DavidBerenice spoke with patient, she will see May 17 at 9:45am. On 10/15/22 @ 16:09 Deanna Sandoval Wrote To Faviola Alberto Not an urgent visit - can be seen by May when she returns, thanks On 10/15/22 @ 15:44 Faviola Alberto Wrote To Deanna Sandoval Berenice is not back until Wednesday, you have an opening Wednesday at 11:15, can I put her in to discuss? (obviously patient would have to agree to come in too.) On 10/15/22 @ 13:19 Deanna Sandoval Wrote To Berenice Hernandez (2) Reviewed - agreed. Should have risk vs benefit discussion in office and anesthesia pre-op consultation before proceeding. Thanks On 10/15/22 @ 12:31 Faviola Alberto Wrote To Berenice Hernandez (2) Deirdre is scheduled for colo on 10/22. Deirdre has quite the extensive PMHx. Berenice saw her 05/22/22, she did obtain pulmonary clearance - saw Dr. Cochran on 10/01 reports patient is High Risk for any surgical procedure and procedures should be done if absolutely necessary. I understand she has hx of tubulovillous . Just making sure we should proceed. TY TODAY'S VISIT ready for scope referring to [facility] given her high risk. She also has a prolapse and refer to [place] [facility] Also ventral and umbilical hernia refe to [facility]. prn [facility] Medical History COPD (chronic obstructive pulmonary disease) CKD (chronic kidney disease) stage 5, GFR less than 15 ml/min Polysubstance abuse JOAN (acute kidney injury) Respiratory failure with hypoxia and hypercapnia Acute exacerbation of chronic obstructive pulmonary disease Tremor of both hands Ambulates with cane Seasonal allergies Herpes zoster Post covid-19 condition, unspecified Osteopenia (~2017) Obesity Respiratory failure COVID-19 (~03/2021) Osteoarthritis of ankles, bilateral Olecranon bursitis of left elbow Tubulovillous adenoma of large intestine (~2020) Hx of cardiac arrest (~2015) O2 dependent Methadone maintenance therapy patient History of claustrophobia History of seizure Anxiety and depression HTN (hypertension) Multiple fractures of ribs Anemia in chronic kidney disease Vitamin D deficiency Family history of colon cancer CKD (chronic kidney disease) stage 4, GFR 15-29 ml/min Dyslipidemia Restrictive lung disease Lung cancer (~2019) LEO (obstructive sleep apnea) Surgical History Hx of tracheostomy History of esophagogastroduodenoscopy (EGD) (~2021) History of removal of ureteral stent (~2013) History of lung biopsy (~2019) History of colonoscopy (~2020) Umbilical hernia History of laparoscopy (~2012) History of hand surgery History of tubal ligation Family History Father Diabetes mellitus Mother Depression Mental health disorder Maternal Grandfather Colon cancer Sister No problems noted. Son No problems noted. Daughter No problems noted. Daughter No problems noted. Social History Household Members: Unknown / Unable to assess Housing: House Housing Other:: mobile home Are you a primary professional healthcare representative to a significant other at home: No Do you presently have visiting nurse or other home services: No Unable to assess alcohol history related to: Unable to respond Alcohol intake: never Comment: restraints Patient Tobacco Use Status: Former Tobacco user Quit Date: 2011 Tobacco use type: Cigarette Years Smoked: 25 yrs e-Cigarette/Vaping Use: Never Used Substance Use Type: Heroin Advance Directives Date on File: 03/21/21 service: No Current occupational status: unemployed and disabled Cognitive needs: No Hearing needs: No Vision needs: No Review of Systems Const Denies fatigue, Denies fever(s), Denies night sweats, Denies poor appetite and Denies weight loss ENT Reports Normal hearing present, Denies dental pain, Denies dysphagia, Denies hearing loss, Denies mouth pain, Denies odynophagia, Denies throat swelling, Denies tongue swelling and Reports other (Dentition adequate) Card Reports no additional complaints and Reports dyspnea on exertion Resp Reports dyspnea on exertion GI Details: Denies abdominal pain, Denies melena, Denies bloating, Denies hematochezia, Denies constipation, Denies GI cramping, Denies dysphagia, Denies excessive flatus, Denies early satiety, Denies heartburn, Denies diarrhea, Denies nausea, Denies odynophagia, Denies vomiting and Denies hematemesis Skin/Breast Denies pruritus, Denies lesions, Denies rash and Denies jaundice Neuro Reports Normal hearing present and Denies Abnormal speech present Endo Denies fatigue Aller/Immun Denies throat swelling and Denies tongue swelling Physical Exam Vital Signs: Last Vital Signs Pulse 96 04/06/23 12:48 BP 127/78 04/06/23 12:48 BMI result Body Mass Index 37.7 Const General: cooperative, no acute distress, well developed and well groomed Nutritional Appearance: well nourished and obese Orientation/consciousness: oriented to person, oriented to place and oriented to time Limitations: No language barrier and other limitations HEENT Head: Yes normocephalic and Yes atraumatic Eyes General: appearance normal, both eyes and all related structures Pupils: Equal, round and reactive pupils present Neck Neck: Yes normal visual inspection and Yes no lymphadenopathy Thyroid: Thyroid normal Resp Other: On oxygen via N/C Effort & Inspection: normal respiratory effort and able to speak in complete sentences Auscultation: diminished lung sounds Cardio Rate: regular rate Rhythm: regular rhythm Heart sounds: Normal, physiologic split S2 sound present Peripheral pulses: radial pulses present and posterior tibial pulses present GI Other: difficult to palpate extent of hernias r/t central adiposity Inspection: No distended, Yes Abdominal panniculus present and Yes obesity Palpation (GI): Soft to palpation, nontender, no guarding, not rigid, No hepatosplenomegaly present and Hernia present umbilical and ventral Percussion: Yes normal to percussion Auscultation: normal bowel sounds Rectal Exam - Female: deferred Abdomen image: 2 1. ? palpated hernias 2. Skin General skin exam: no rashes or lesions noted, turgor normal, skin not dry, no jaundice, No spider nevi and no striae Rashes: no rashes Nails: normal Neuro General: oriented to person, oriented to place and oriented to time Cranial nerves: Yes Equal, round and reactive pupils present and Yes Normal hearing present Speech: No Abnormal speech present Extrem General: Yes normal to inspection, No clubbing, No cyanosis and No edema Psych Appearance: grossly normal and well kempt Mental Status: mental status grossly normal Speech and movement: Normal speech and movement present Affect: normal affect Attitude: cooperative Thought process: Normal thought process present and not confabulating Thought content: Normal thought content present Insight: Limited insight present (Psych) Judgement: Limited judgement present (Psych) Assessment & Plan Assessment & Plan (1) Tubulovillous adenoma of large intestine: Onset Date: ~2020 Comment: (TA 2015 & TVA on 10/2020 scope - repeat 1-2 years)co morbid conditions of chronic kidney disease stage 4, a history of respiratory failure with severe COPD,. A seizure history, and a history of lung cancer her 10 year survival rate is difficult to predict. If she does decide to go forward with the procedure she likely needs to have it at [facility] due to her complexity Cologuard resulted 10/28/2022 was negative Code(s): D12.6 - Benign neoplasm of colon, unspecified (2) Respiratory failure with hypoxia and hypercapnia: Comment: PATIENT HAS CHRONIC HYPOXEMIA WITH HYPERCAPNIA. CURRENTLY VERY STABLE, Code(s): J96.91 - Respiratory failure, unspecified with hypoxia; J96.92 - Respiratory failure, unspecified with hypercapnia (3) Umbilical hernia: Comment: Incarcerated umbilical hernia Code(s): K42.9 - Umbilical hernia without obstruction or gangrene Qualifiers: Obstruction and gangrene presence: without obstruction or gangrene Qualified Code(s): K42.9 - Umbilical hernia without obstruction or gangrene (4) Ventral hernia: Code(s): K43.9 - Ventral hernia without obstruction or gangrene (5) Vaginal prolapse: Code(s): N81.10 - Cystocele, unspecified Plan ready for scope referring to [facility] given her high risk. She also has a prolapse and refer to [place] [facility] Also ventral and umbilical hernia refe to [facility]. prn Orders: Referrals 2 Gastroenterology Referral D12.6 - Benign neoplasm of colon, unspecified, J96.91 - Respiratory failure, unspecified with hypoxia, J96.92 - Respiratory failure, unspecified with hypercapnia General Surgery Referral K42.9 - Umbilical hernia without obstruction or gangrene, K43.9 - Ventral hernia without obstruction or gangrene Urogynecology Referral N81.10 - Cystocele, unspecified Coding Level of Care Code Est Pt Level 3 (44152) Diagnoses Tubulovillous adenoma of large intestine D12.6 Respiratory failure with hypoxia and hypercapnia J96.91; J96.92 Umbilical hernia without obstruction and without gangrene K42.9 Obstruction and gangrene presence: without obstruction or gangrene Ventral hernia K43.9 Vaginal prolapse N81.10
[2023-04-06 12:48] VITALS: BP 127/78; PULSE 96; BMI 37.7
== END 2023-04-06 13:22 | disposition home or self-care (01) ==
PROVIDERS: PCP Internal Medicine; Visit Provider Nurse Practitioner
DX: D12.6 Benign neoplasm of colon, unspecified (principal); J96.91 Respiratory failure, unspecified with hypoxia; J96.92 Respiratory failure, unspecified with hypercapnia; K42.9 Umbilical hernia without obstruction or gangrene; K43.9 Ventral hernia without obstruction or gangrene; N81.10 Cystocele, unspecified
CPT/HCPCS: 99213

== ENCOUNTER → 2023-04-06 12:27 | Outpatient (BNVA) | payer MEDICARE, MEDICAID, SELFPAY | PROVIDERS: PCP Internal Medicine; Visit Provider Nurse Practitioner | DX: D12.6 Benign neoplasm of colon, unspecified (principal); J96.91 Respiratory failure, unspecified with hypoxia; J96.92 Respiratory failure, unspecified with hypercapnia; K42.9 Umbilical hernia without obstruction or gangrene; K43.9 Ventral hernia without obstruction or gangrene; N81.10 Cystocele, unspecified | CPT/HCPCS: 99212 ==

== ENCOUNTER 2023-04-21 14:54 | Outpatient (AMB) | payer MEDICARE, MEDICAID, SELFPAY ==
--- NOTE | 2023-04-21 15:00 | MHC.OFFVIS ---
Intake Vital Signs 04/21/23 15:01 Height 5 ft 1 in Weight 206 lb 2.115 oz BMI 38.9 BP 110/72 Blood Pressure Location Lt brachial Position Sitting Pulse 98 Pulse Source Pulse Oximeter Pulse Oximetry (%) 96 Oxygen Delivery Method Nasal Cannula Oxygen Flow Rate 2 Intake Visit Reasons: COPD Intake Note: pt is here for follow up and states she is short of breath with walking, retaining some fluid and question on the inhaler, she does not really notice a difference when using it. Research Nutritionist Required: No Allergies ciprofloxacin [From Cipro] Allergy (Severe, Verified 04/21/23 15:18) HIVES/SWELLING, THROAT CLOSES shellfish derived [SHELLFISH DERIVED] Allergy (Intermediate, Verified 04/21/23 15:18) Vomiting NSAIDS (Non-Steroidal Anti-Inflamma Adverse Reaction (Severe, Verified 04/21/23 15:18) Avoid due to kidney disease Medication List - Last Reconciled 04/21/23 by Mayte Cochran MD acetaminophen 650 mg PO Q6H PRN aspirin 81 mg PO DAILY Breo Ellipta 100-25 mcg/dose (fluticasone furoate-vilanterol) 1 ea PO DAILY 90 days NS calcitriol 0.25 mcg PO DAILY carvedilol 3.125 mg PO BID fluticasone propionate 50 mcg/actuation 1 spray intranasal DAILY gabapentin 100 mg PO .prn guaifenesin ER (Mucinex) 600 mg PO BID 30 days hydroxyzine pamoate 100 mg PO BEDTIME PRN ipratropium-albuterol 0.5 mg-3 mg(2.5 mg base)/3 mL 3 mL inhalation Q4-6H PRN lorazepam 1 mg PO BID methadone 70 mg PO DAILY prednisone 20 mg PO BID PRN torsemide 20 mg PO BID 30 days Do you need a note to return to daycare/school/sports/work: No HPI COPD HPI Details IMTIAZ, 62 YEARS OLD FEMALE, IS HERE FOR REGULAR FOLLOW-UP. SHE HAS BEEN RELATIVELY STABLE IN THE LAST 3 MONTHS. SHE IS STAYING MOSTLY IN THE HOUSE DOES NOT WALK OUTDOORS. SHE DOES HAVE SHORTNESS OF BREATH ON WALKING EVEN IN THE HOUSE. SHE HAS MILD TO MODERATE INTERMITTENT. COUGH BUT NOT MUCH EXPECTORATION MENTAL STATUS HAS REMAINED STABLE. THERE HAS BEEN NO RESPIRATORY INFECTION. [facility] Medical History (Updated 04/21/23 @ 15:42 by Mayte Cochran MD) Morbid obesity COPD (chronic obstructive pulmonary disease) CKD (chronic kidney disease) stage 5, GFR less than 15 ml/min Polysubstance abuse JOAN (acute kidney injury) Respiratory failure with hypoxia and hypercapnia Acute exacerbation of chronic obstructive pulmonary disease Tremor of both hands Ambulates with cane Seasonal allergies Herpes zoster Post covid-19 condition, unspecified Osteopenia (~2017) Obesity Respiratory failure COVID-19 (~03/2021) Osteoarthritis of ankles, bilateral Olecranon bursitis of left elbow Tubulovillous adenoma of large intestine (~2020) Hx of cardiac arrest (~2015) O2 dependent Methadone maintenance therapy patient History of claustrophobia History of seizure Anxiety and depression HTN (hypertension) Multiple fractures of ribs Anemia in chronic kidney disease Vitamin D deficiency Family history of colon cancer CKD (chronic kidney disease) stage 4, GFR 15-29 ml/min Dyslipidemia Restrictive lung disease Lung cancer (~2019) LEO (obstructive sleep apnea) Surgical History Hx of tracheostomy History of esophagogastroduodenoscopy (EGD) (~2021) History of removal of ureteral stent (~2013) History of lung biopsy (~2019) History of colonoscopy (~2020) Umbilical hernia History of laparoscopy (~2012) History of hand surgery History of tubal ligation Family History Father Diabetes mellitus Mother Depression Mental health disorder Maternal Grandfather Colon cancer Sister No problems noted. Son No problems noted. Daughter No problems noted. Daughter No problems noted. Social History Household Members: Unknown / Unable to assess Housing: House Housing Other:: mobile home Are you a primary long term care phlebotomist to a significant other at home: No Do you presently have visiting nurse or other home services: No Unable to assess alcohol history related to: Unable to respond Alcohol intake: never Comment: restraints Patient Tobacco Use Status: Former Tobacco user Quit Date: 2011 Tobacco use type: Cigarette Years Smoked: 25 yrs e-Cigarette/Vaping Use: Never Used Substance Use Type: Heroin Advance Directives Date on File: 03/21/21 service: No Current occupational status: unemployed and disabled Cognitive needs: No Hearing needs: No Vision needs: No Review of Systems Const All systems reviewed & are unremarkable except as noted in HPI and below Eyes Reports no additional complaints ENT Reports no additional complaints Card Denies chest pain, Denies irregular heart rhythm and Denies leg edema Resp Reports as per HPI and Reports other (RIGHT-SIDED RIBCAGE PAIN IS NEW DUE TO THE FALL AT HOME) GI Denies no additional complaints Denies no additional complaints Musc Reports abnormal gait (IMPAIRED LOCOMOTION, WALKS SLOW, WITH MINIMAL SUPPORT) and Reports back pain Skin/Breast Reports system reviewed and no additional complaints, except as documented Neuro Reports abnormal gait (IMPAIRED LOCOMOTION, WALKS SLOW, WITH MINIMAL SUPPORT) Psych Reports no additional complaints Physical Exam Vital Signs: Last Vital Signs Pulse 98 04/21/23 15:01 BP 110/72 04/21/23 15:01 Pulse Ox 96 04/21/23 15:01 Oxygen Delivery Method Nasal Cannula 04/21/23 15:01 Oxygen Flow Rate 2 04/21/23 15:01 BMI result Body Mass Index 38.9 Const General: comfortable, no acute distress, alert, awake and other (WALKS SLOWLY, WITH THE HELP OF A CANE.) Orientation/consciousness: patient oriented x3 HEENT Head: Yes normal to inspection General nose exam: No nasal polyps present and No nasal discharge present Face and sinus: Yes sinuses nontender Mouth: oropharynx normal Throat: Yes posterior oropharynx normal Eyes General: appearance normal, both eyes and all related structures Neck Neck: Yes normal visual inspection, Yes no lymphadenopathy, Yes trachea midline and Yes no JVD Thyroid: Thyroid normal Resp Other: PERCUSSION NOTE IS RESONANT, BREATH SOUNDS ARE VERY DISTANT BUT EQUAL ON BOTH SIDES. NO WHEEZES OR RHONCHI ARE HEARD TODAY. Cardio Palpation: PMI not normal (PMI IS NOT PALPABLE.) and other Rate: regular rate Rhythm: regular rhythm Heart sounds: no gallops and no murmurs GI Palpation (GI): Soft to palpation, nontender, No hepatosplenomegaly present, no masses and Other GI palpation findings present (ABDOMEN IS OBESE AND PROTUBERANT) Auscultation: normal bowel sounds Back/Spine/Pelvis Thoracic/Lumbar Spine: thoracic and lumbar spine normal to inspection and thoraco-lumbar ROM limited Skin General skin exam: no rashes or lesions noted Neuro General: patient oriented x3, No gait normal (GAIT IS SLOW AND SLIGHTLY UNSTABLE PATIENT NEEDS A CANE TO WALK) and no focal motor deficits Cranial nerves: Yes CN's II-XII intact bilaterally Extrem General: Yes normal to inspection, Yes no calf tenderness and Yes edema (CHRONIC STASIS EDEMA OF THE LEGS) Psych Appearance: grossly normal and well kempt Speech and movement: Normal speech and movement present Assessment & Plan Assessment & Plan (1) Morbid obesity: Comment: HE IS CHRONICALLY OBESE MAINLY DUE TO LACK OF PHYSICAL ACTIVITY. CURRENT BMI 38.9. DENIES SYMPTOMS OF SLEEP APNEA Code(s): E66.01 - Morbid (severe) obesity due to excess calories Plan: PATIENT IS AWARE OF BEING OVERWEIGHT. PRACTICALLY NO SCOPE FOR HER TO LOSE WEIGHT. (2) COPD (chronic obstructive pulmonary disease): Comment: PATIENT HAS LONG-STANDING HISTORY OF CHRONIC OBSTRUCTIVE PULMONARY DISEASE PRIMARILY DUE TO HER LONG TIME SMOKING, SHE QUIT EARLIER IN 2022. GETS FREQUENT ACUTE EXACERBATION, TODAY SHE IS RELATIVELY STABLE. Code(s): J44.9 - Chronic obstructive pulmonary disease, unspecified Plan: CONTINUE BREO -100/25 1 INHALATION DAILY CONTINUE DUONEB UPDRAFTS Q 6 HOURS ( UP TO 3 TIMES A DAY) (3) Respiratory failure with hypoxia and hypercapnia: Comment: PATIENT HAS CHRONIC HYPOXEMIA WITH HYPOXEMIA/ HYPERCAPNIA. LOST ABG ON 12/14/2022 PH 7.21 PCO2 69 PO2 79 LOST VENOUS BLOOD GAS: PH 7.44 PCO2 44 PO2 66 CURRENTLY VERY STABLE, Code(s): J96.91 - Respiratory failure, unspecified with hypoxia; J96.92 - Respiratory failure, unspecified with hypercapnia Plan: CONTINUE O2 2 L/MINUTE. INSTRUCTED TO DO DEEP BREATHING EXERCISES 3 TO 4 TIMES A DAY, WITH PURSED LIP TECHNIQUE. Coding Level of Care Code Est Pt Level 4 (23819) Diagnoses Morbid obesity E66.01 COPD (chronic obstructive pulmonary disease) J44.9 Respiratory failure with hypoxia and hypercapnia J96.91; J96.92
[2023-04-21 15:01] VITALS: BP 110/72; PULSE 98; O2SAT 96; BMI 38.9
== END 2023-04-21 15:28 | disposition home or self-care (01) ==
PROVIDERS: PCP Internal Medicine; Visit Provider Internal Medicine
DX: E66.01 Morbid (severe) obesity due to excess calories (principal); J44.9 Chronic obstructive pulmonary disease, unspecified; J96.91 Respiratory failure, unspecified with hypoxia; J96.92 Respiratory failure, unspecified with hypercapnia
CPT/HCPCS: 99214

== ENCOUNTER → 2023-04-21 14:54 | Outpatient (BNVA) | payer MEDICARE, MEDICAID, SELFPAY | PROVIDERS: PCP Internal Medicine; Visit Provider Internal Medicine | DX: J44.9 Chronic obstructive pulmonary disease, unspecified (principal); J96.91 Respiratory failure, unspecified with hypoxia; J96.92 Respiratory failure, unspecified with hypercapnia; E66.01 Morbid (severe) obesity due to excess calories | CPT/HCPCS: 99212 ==

== ENCOUNTER 2023-05-21 13:16 | Outpatient (REF) | payer MEDICARE, MEDICAID, SELFPAY ==
[2023-05-21 16:16] LABS: MANUAL DIFF FLAG NO
[2023-05-21 16:32] LABS: Basophils Percent Auto 0.4 % (0-2); Hematocrit 32.6 % (37.0-47.0); Hemoglobin 9.6 g/dl (12.0-16.0); Imm Gran Abs Auto 0.03 X10*3/uL (0.00-0.03); Imm Gran Pct Auto 0.4 % (0.0-0.4); Lymphocytes Absolute Auto 1.5 X10*3/uL (1.2-4.9); Lymphocytes Percent Auto 20.6 % (20-40); Mean Corpuscular HGB Conc 29.4 g/dl (31.0-35.0); Mean Corpuscular Hemoglobin 27.9 pg (27.0-33.0); Mean Corpuscular Volume 94.8 fL (80.0-98.0); Monocytes Absolute Auto 0.9 X10*3/uL (0.1-1.2); Monocytes Percent Auto 12.3 % (2-11); Neutrophils Absolute Auto 4.9 x10*3/uL (2.0-8.3); Neutrophils Percent Auto 66.3 % (45-73); Platelet Count 293 X10*3/uL (160-400); Red Blood Count 3.44 X10*6/uL (4.20-5.50); Red Cell Distribution Width 13.3 % (11.0-16.0); White Blood Count 7.4 X10*3/uL (4.8-10.8)
[2023-05-21 16:34] LABS: Anion Gap 14 (12-20); Blood Urea Nitrogen 50 mg/dL (9-16); Calcium 10.1 mg/dL (8.4-10.2); Carbon Dioxide 27 mmol/L (22-29); Chloride 107 mmol/L (96-108); Estimated Glomerular Filt Rate 15; Iron 47 mcg/dL (30-160); Percent Iron Saturation 17 % (15-50); Phosphorus 3.1 mg/dL (2.7-4.5); Sodium 143 mmol/L (135-145); Total Iron Binding Capacity 279 mcg/dL (228-428); Unsaturated Iron Binding 232 ug/dL
[2023-05-21 17:04] LABS: Parathyroid Hormone Intact 688.7 pg/mL (8.7-77.1)
== END 2023-05-21 13:17 | disposition home or self-care (01) ==
LOC: HO.HMGCLDS 13:16
PROVIDERS: Internal Medicine Nephrology; PCP Internal Medicine; Visit Provider Internal Medicine
DX: N18.4 Chronic kidney disease, stage 4 (severe) (principal)
CPT/HCPCS: 36415; 80051; 82310; 82565; 83540; 83970; 84100; 84520; 85025

== ENCOUNTER 2023-05-25 14:45 | Outpatient (AMB) | payer MEDICARE, MEDICAID, SELFPAY ==
[2023-05-25 14:54] VITALS: BP 116/78; PULSE 105; O2SAT 95; BMI 39.5
--- NOTE | 2023-05-25 14:54 | HO.NEPHOV ---
HPI HPI Comments History of Present Illness Details 62 years old female with advanced chronic obstructive pulmonary disease and chronic respiratory failure, on oxygen, and treated for acute exacerbation of COPD/respiratory failure, was able to normalize blood gases with aggressive treatment. She has advanced CKD approaching end stage renal disease. She has significant fluid overload requiring high-dose of diuretics. She is here for further follow-up. Recently admitted for respiratory illness and was treated with a course of prednisone. During hospitalization diltiazem has been discontinued but she is still taking it. 02/22/23: Doing better;No new issues 05/25/2023. Overall doing well. Recently missed Neurology appointment due to logistical issues. Respiratory status remains unchanged. Leg edema remains stable [facility] Medical History (Updated 05/25/23 @ 15:10 by Fermin Muhammad MD) CKD (chronic kidney disease) stage 4, GFR 15-29 ml/min Morbid obesity COPD (chronic obstructive pulmonary disease) CKD (chronic kidney disease) stage 5, GFR less than 15 ml/min Polysubstance abuse JOAN (acute kidney injury) Respiratory failure with hypoxia and hypercapnia Acute exacerbation of chronic obstructive pulmonary disease Tremor of both hands Ambulates with cane Seasonal allergies Herpes zoster Post covid-19 condition, unspecified Osteopenia (~2017) Obesity Respiratory failure COVID-19 (~03/2021) Osteoarthritis of ankles, bilateral Olecranon bursitis of left elbow Tubulovillous adenoma of large intestine (~2020) Hx of cardiac arrest (~2015) O2 dependent Methadone maintenance therapy patient History of claustrophobia History of seizure Anxiety and depression HTN (hypertension) Multiple fractures of ribs Anemia in chronic kidney disease Vitamin D deficiency Family history of colon cancer Dyslipidemia Restrictive lung disease Lung cancer (~2019) LEO (obstructive sleep apnea) Surgical History Hx of tracheostomy History of esophagogastroduodenoscopy (EGD) (~2021) History of removal of ureteral stent (~2013) History of lung biopsy (~2019) History of colonoscopy (~2020) Umbilical hernia History of laparoscopy (~2012) History of hand surgery History of tubal ligation Family History Father Diabetes mellitus Mother Depression Mental health disorder Maternal Grandfather Colon cancer Sister No problems noted. Son No problems noted. Daughter No problems noted. Daughter No problems noted. Social History Household Members: Unknown / Unable to assess Housing: House Housing Other:: mobile home Are you a primary gericare aide teacher to a significant other at home: No Do you presently have visiting nurse or other home services: No Unable to assess alcohol history related to: Unable to respond Alcohol intake: never Comment: restraints Patient Tobacco Use Status: Former Tobacco user Quit Date: 2011 Tobacco use type: Cigarette Years Smoked: 25 yrs e-Cigarette/Vaping Use: Never Used Substance Use Type: Heroin Advance Directives Date on File: 03/21/21 service: No Current occupational status: unemployed and disabled Cognitive needs: No Hearing needs: No Vision needs: No Vital Signs 05/25/23 14:54 Height 5 ft 1 in Weight 209 lb BMI 39.5 BP 116/78 Blood Pressure Location Rt brachial Position Sitting Pulse 105 H Pulse Source Pulse Oximeter Pulse Oximetry (%) 95 Oxygen Delivery Method Room Air Physical Exam Vital Signs: Last Vital Signs Pulse 105 H 05/25/23 14:54 BP 116/78 05/25/23 14:54 Pulse Ox 95 05/25/23 14:54 Oxygen Delivery Method Room Air 05/25/23 14:54 BMI result Body Mass Index 39.5 Const General: comfortable Nutritional Appearance: well nourished Orientation/consciousness: patient oriented x3 HEENT Head: No normal to inspection Mouth: moist mucous membranes Neck Neck: Yes supple and Yes no JVD Resp Auscultation: clear to auscultation bilaterally, no rales and rub present Cardio Jugular venous distension: no JVD Palpation: no palpable S3 and no palpable S4 Heart sounds: no rubs GI Palpation (GI): Soft to palpation and nontender Percussion: No Fluid wave present General: Yes no CVA tenderness Back/Spine/Pelvis Back: no CVA tenderness Skin General skin exam: no rashes or lesions noted Neuro General: patient oriented x3 Extrem General: No clubbing Assessment & Plan Assessment & Plan (1) CKD (chronic kidney disease) stage 5, GFR less than 15 ml/min: Code(s): N18.5 - Chronic kidney disease, stage 5 Plan: Advanced CKD approaching end stage renal disease. No overt signs or symptoms of uremia. Goal is to slow the portion renal disease. We will continue to watch renal function closely and initiate dialysis when appropriate. (2) Anemia in chronic kidney disease: Code(s): N18.9 - Chronic kidney disease, unspecified; D63.1 - Anemia in chronic kidney disease Qualifiers: Chronic kidney disease stage: stage 5, not on chronic dialysis Qualified Code(s): N18.5 - Chronic kidney disease, stage 5; D63.1 - Anemia in chronic kidney disease Plan: No absolute indication to start erythropoietin yet. Hct has improved I will follow the hemoglobin along with iron stores and start on epogen as needed. (3) Acute exacerbation of chronic obstructive pulmonary disease: Code(s): J44.1 - Chronic obstructive pulmonary disease with (acute) exacerbation Plan: Management per PCP Continue DuoNeb updrafts q.i.d. and Breo-100 1 inhalation daily. Prednisone 20 mg b.i.d. for 7 days. Mucinex 600 mg b.i.d. also prescribed. (4) HTN (hypertension): Code(s): I10 - Essential (primary) hypertension Plan: Blood pressure is better controlled No need for CArdizem ( was stopepd in Jan 2023) Continue with Coreg 3.125 b.i.d.. No changes were made to her diabetic regimen. (5) Secondary hyperparathyroidism: Code(s): N25.81 - Secondary hyperparathyroidism of renal origin Plan: On CAlcitriol Watch PTH and Ca Coding Level of Care Code Est Pt Level 4 (80572) Diagnoses CKD (chronic kidney disease) stage 5, GFR less than 15 ml/min N18.5 Anemia in stage 5 chronic kidney disease, not on chronic dialysis N18.5; D63.1 Chronic kidney disease stage: stage 5, not on chronic dialysis Acute exacerbation of chronic obstructive pulmonary disease J44.1 HTN (hypertension) I10 Secondary hyperparathyroidism N25.81 Results Reviewed Nephrology Results: Hgb 9.6 g/dl (12.0-16.0) L 05/21/23 WBC 7.4 X10*3/uL (4.8-10.8) 05/21/23 Plt Count 293 X10*3/uL (160-400) 05/21/23 Sodium 143 mmol/L (135-145) 05/21/23 Potassium 5.0 mmol/L (3.3-5.1) 05/21/23 Chloride 107 mmol/L (96-108) 05/21/23 Carbon Dioxide 27 mmol/L (22-29) 05/21/23 BUN 50 mg/dL (9-16) H 05/21/23 Creatinine 3.16 mg/dL (0.5-1.4) H 05/21/23 Calcium 10.1 mg/dL (8.4-10.2) 05/21/23 Phosphorus 3.1 mg/dL (2.7-4.5) 05/21/23 PTH Intact 688.7 pg/mL (8.7-77.1) H 05/21/23 Urine Protein 30 (1+) mg/dL (Neg-Trace) H 02/04/23
== END 2023-05-25 15:14 | disposition home or self-care (01) ==
PROVIDERS: PCP Internal Medicine; Visit Provider Internal Medicine Hypertension Specialist
DX: N18.5 Chronic kidney disease, stage 5 (principal); D63.1 Anemia in chronic kidney disease; J44.1 Chronic obstructive pulmonary disease with (acute) exacerbation; I12.0 Hypertensive chronic kidney disease with stage 5 chronic kidney disease or end stage renal disease; N25.81 Secondary hyperparathyroidism of renal origin
CPT/HCPCS: 99214

== ENCOUNTER → 2023-05-25 14:45 | Outpatient (BNVA) | payer MEDICARE, MEDICAID, SELFPAY | PROVIDERS: PCP Internal Medicine; Visit Provider Internal Medicine Hypertension Specialist | DX: I12.9 Hypertensive chronic kidney disease with stage 1 through stage 4 chronic kidney disease, or unspecified chronic kidney disease (principal); N18.5 Chronic kidney disease, stage 5; D63.1 Anemia in chronic kidney disease; N25.81 Secondary hyperparathyroidism of renal origin; J44.1 Chronic obstructive pulmonary disease with (acute) exacerbation | CPT/HCPCS: 99212 ==

== ENCOUNTER 2023-08-02 13:24 | Outpatient (AMB) | payer MEDICARE, MEDICAID, SELFPAY ==
--- NOTE | 2023-08-02 13:44 | A.OFFVIS_ITS ---
Vital Signs 08/02/23 13:45 Height 5 ft 1 in Weight 210 lb 8.663 oz BMI 39.8 BP 132/80 Blood Pressure Location Lt brachial Position Sitting Pulse 87 Pulse Source Pulse Oximeter Pulse Oximetry (%) 96 Oxygen Delivery Method Nasal Cannula Oxygen Flow Rate 2 Intake Visit Reasons: copd Intake Note: pt is here for follow up and states she the breathing is getting ruff, using nebulizer more. Broke Man Required: No Allergies ciprofloxacin [From Cipro] Allergy (Severe, Verified 08/02/23 14:14) HIVES/SWELLING, THROAT CLOSES shellfish derived [SHELLFISH DERIVED] Allergy (Intermediate, Verified 08/02/23 14:14) Vomiting NSAIDS (Non-Steroidal Anti-Inflamma Adverse Reaction (Severe, Verified 08/02/23 14:14) Avoid due to kidney disease Medication List - Last Reconciled 08/02/23 by Mayte Cochran MD acetaminophen 650 mg PO Q6H PRN aspirin 81 mg PO DAILY Breo Ellipta 100-25 mcg/dose (fluticasone furoate-vilanterol) 1 ea PO DAILY 90 days NS calcitriol 0.25 mcg PO DAILY carvedilol 3.125 mg PO BID fluticasone propionate 50 mcg/actuation 1 spray intranasal DAILY gabapentin 100 mg PO .prn PRN guaifenesin ER (Mucinex) 600 mg PO BID PRN hydroxyzine pamoate 100 mg PO BEDTIME PRN ipratropium-albuterol 0.5 mg-3 mg(2.5 mg base)/3 mL 3 mL inhalation Q4-6H PRN lorazepam 1 mg PO BID PRN methadone 70 mg PO DAILY torsemide 20 mg PO BID 30 days Do you need a note to return to daycare/school/sports/work: No HPI HPI copd: Details: 63 YEARS OLD FEMALE, IS HERE FOR FOLLOW-UP AFTER 3 MONTHS. SHE IS A KNOWN CASE OF CHRONIC OBSTRUCTIVE PULMONARY DISORDER WITH CHRONIC RESPIRATORY FAILURE. PAST HISTORY OF NARCOTICS ABUSE CURRENTLY ON METHADONE 70 MG P.O. DAILY. PAST HISTORY OF SMOKING. SHE IS ON O2 2 L/MINUTE 24 HOURS A DAY. CLAIMS THAT HER BREATHING HAS BEEN FAIRLY STABLE EXCEPT FOR SOME WORSENING DURING THE HOT AND HUMID WEATHER. SLEEPS GOOD AT NIGHT. NO FLUCTUATIONS IN THE MENTAL STATUS. [facility] Medical History CKD (chronic kidney disease) stage 4, GFR 15-29 ml/min Morbid obesity COPD (chronic obstructive pulmonary disease) CKD (chronic kidney disease) stage 5, GFR less than 15 ml/min Polysubstance abuse JOAN (acute kidney injury) Respiratory failure with hypoxia and hypercapnia Acute exacerbation of chronic obstructive pulmonary disease Tremor of both hands Ambulates with cane Seasonal allergies Herpes zoster Post covid-19 condition, unspecified Osteopenia (~2017) Obesity Respiratory failure COVID-19 (~03/2021) Osteoarthritis of ankles, bilateral Olecranon bursitis of left elbow Tubulovillous adenoma of large intestine (~2020) Hx of cardiac arrest (~2015) O2 dependent Methadone maintenance therapy patient History of claustrophobia History of seizure Anxiety and depression HTN (hypertension) Multiple fractures of ribs Anemia in chronic kidney disease Vitamin D deficiency Family history of colon cancer Dyslipidemia Restrictive lung disease Lung cancer (~2019) LEO (obstructive sleep apnea) Surgical History Hx of tracheostomy History of esophagogastroduodenoscopy (EGD) (~2021) History of removal of ureteral stent (~2013) History of lung biopsy (~2019) History of colonoscopy (~2020) Umbilical hernia History of laparoscopy (~2012) History of hand surgery History of tubal ligation Family History Father Diabetes mellitus Mother Depression Mental health disorder Maternal Grandfather Colon cancer Sister No problems noted. Son No problems noted. Daughter No problems noted. Daughter No problems noted. Social History Household Members: Unknown / Unable to assess Housing: House Housing Other:: mobile home Are you a primary critical care registered nurse to a significant other at home: No Do you presently have visiting nurse or other home services: No Unable to assess alcohol history related to: Unable to respond Alcohol intake: never Comment: restraints Patient Tobacco Use Status: Former Tobacco user Tobacco use type: Cigarette Years Smoked: 25 yrs e-Cigarette/Vaping Use: Never Used Substance Use Type: Heroin Advance Directives Date on File: 03/21/21 service: No Current occupational status: unemployed and disabled Cognitive needs: No Hearing needs: No Vision needs: No Review of Systems Const All systems reviewed & are unremarkable except as noted in HPI and below Eyes Reports no additional complaints ENT Reports no additional complaints Card Denies chest pain, Denies irregular heart rhythm and Denies leg edema Resp Reports as per HPI and Reports other (RIGHT-SIDED RIBCAGE PAIN IS NEW DUE TO THE FALL AT HOME) GI Denies no additional complaints Denies no additional complaints Musc Reports abnormal gait (IMPAIRED LOCOMOTION, WALKS SLOW, WITH MINIMAL SUPPORT) and Reports back pain Skin/Breast Reports system reviewed and no additional complaints, except as documented Neuro Reports abnormal gait (IMPAIRED LOCOMOTION, WALKS SLOW, WITH MINIMAL SUPPORT) Psych Reports no additional complaints Physical Exam Vital Signs: Last Vital Signs Pulse 87 08/02/23 13:45 BP 132/80 08/02/23 13:45 Pulse Ox 96 08/02/23 13:45 Oxygen Delivery Method Nasal Cannula 08/02/23 13:45 Oxygen Flow Rate 2 08/02/23 13:45 BMI result Body Mass Index 39.8 Const General: comfortable, no acute distress, alert, awake and other (WALKS SLOWLY, WITH THE HELP OF A CANE.) Orientation/consciousness: patient oriented x3 HEENT Head: Yes normal to inspection General nose exam: No nasal polyps present and No nasal discharge present Face and sinus: Yes sinuses nontender Mouth: oropharynx normal Throat: Yes posterior oropharynx normal Eyes General: appearance normal, both eyes and all related structures Neck Neck: Yes normal visual inspection, Yes no lymphadenopathy, Yes trachea midline and Yes no JVD Thyroid: Thyroid normal Resp Other: PERCUSSION NOTE IS RESONANT, BREATH SOUNDS ARE VERY DISTANT BUT EQUAL ON BOTH SIDES. NO WHEEZES OR RHONCHI ARE HEARD TODAY. Cardio Palpation: PMI not normal (PMI IS NOT PALPABLE.) and other Rate: regular rate Rhythm: regular rhythm Heart sounds: no gallops and no murmurs GI Palpation (GI): Soft to palpation, nontender, No hepatosplenomegaly present, no masses and Other GI palpation findings present (ABDOMEN IS OBESE AND PROTUBERANT) Auscultation: normal bowel sounds Back/Spine/Pelvis Thoracic/Lumbar Spine: thoracic and lumbar spine normal to inspection and thoraco-lumbar ROM limited Skin General skin exam: no rashes or lesions noted Neuro General: patient oriented x3, No gait normal (GAIT IS SLOW AND SLIGHTLY UNSTABLE PATIENT NEEDS A CANE TO WALK) and no focal motor deficits Cranial nerves: Yes CN's II-XII intact bilaterally Extrem General: Yes normal to inspection, Yes no calf tenderness and Yes edema (CHRONIC STASIS EDEMA OF THE LEGS) Psych Appearance: grossly normal and well kempt Speech and movement: Normal speech and movement present Assessment & Plan Assessment & Plan (1) Morbid obesity: Comment: HE IS CHRONICALLY OBESE MAINLY DUE TO LACK OF PHYSICAL ACTIVITY. CURRENT BMI 39.8 DENIES SYMPTOMS OF SLEEP APNEA Code(s): E66.01 - Morbid (severe) obesity due to excess calories Category: Medical Plan: WEIGHT REDUCTION IN HER CASE IS NOT TO EXPECTED. INSTRUCTED TO AVOID ANY SWEETS AND FATTY FOODS. (2) COPD (chronic obstructive pulmonary disease): Comment: PATIENT HAS LONG-STANDING HISTORY OF CHRONIC OBSTRUCTIVE PULMONARY DISEASE PRIMARILY DUE TO HER LONG TIME SMOKING, SHE QUIT EARLIER IN 2022. GETS FREQUENT ACUTE EXACERBATION, TODAY SHE IS RELATIVELY STABLE. Code(s): J44.9 - Chronic obstructive pulmonary disease, unspecified Category: Medical Plan: BREO 100-251 INHALATION DAILY IPRATROPIUM-ALBUTEROL SOLUTION IN UPDRAFT Q 4-6 HOURS( MOSTLY T.I.D.) ALBUTEROL HFA 2 PUFFS Q 4-6 HOURS P.R.N. (3) Respiratory failure with hypoxia and hypercapnia: Comment: PATIENT HAS CHRONIC HYPOXEMIA WITH HYPOXEMIA/ HYPERCAPNIA. LOST ABG ON 12/14/2022 PH 7.21 PCO2 69 PO2 79 LOST VENOUS BLOOD GAS: PH 7.44 PCO2 44 PO2 66 CURRENTLY VERY STABLE, Code(s): J96.91 - Respiratory failure, unspecified with hypoxia; J96.92 - Respiratory failure, unspecified with hypercapnia Category: Medical Plan: CONTINUE O2 2 L/MINUTE. CONTINUE TO DO DEEP BREATHING EXERCISES WITH PURSED LIP TECHNIQUE AT LEAST 3 TIMES A DAY Coding Level of Care Code Est Pt Level 3 (01318) Diagnoses Morbid obesity E66.01 COPD (chronic obstructive pulmonary disease) J44.9 Respiratory failure with hypoxia and hypercapnia J96.91; J96.92
[2023-08-02 13:45] VITALS: BP 132/80; PULSE 87; O2SAT 96; BMI 39.8
== END 2023-08-02 14:16 | disposition home or self-care (01) ==
PROVIDERS: PCP Internal Medicine; Visit Provider Internal Medicine
DX: E66.01 Morbid (severe) obesity due to excess calories (principal); J44.9 Chronic obstructive pulmonary disease, unspecified; J96.91 Respiratory failure, unspecified with hypoxia; J96.92 Respiratory failure, unspecified with hypercapnia
CPT/HCPCS: 99213

== ENCOUNTER → 2023-08-02 13:24 | Outpatient (BNVA) | payer MEDICARE, MEDICAID, SELFPAY | PROVIDERS: PCP Internal Medicine; Visit Provider Internal Medicine | DX: J44.9 Chronic obstructive pulmonary disease, unspecified (principal); J96.91 Respiratory failure, unspecified with hypoxia; J96.92 Respiratory failure, unspecified with hypercapnia; E66.01 Morbid (severe) obesity due to excess calories; Z68.39 Body mass index [BMI] 39.0-39.9, adult; Z99.81 Dependence on supplemental oxygen | CPT/HCPCS: 99212 ==

== ENCOUNTER 2023-08-18 15:33 | Outpatient (REF) | payer MEDICARE, MEDICAID, SELFPAY ==
[2023-08-18 16:03] LABS: Venous Blood Gas Refer to POC result
[2023-08-18 16:14] LABS: VBG pCO2 37 mmHg; VBG pH 7.46 (7.32-7.43)
[2023-08-18 16:15] LABS: VBG Base Excess 3.4 mmol/L; VBG HCO3 27 mmol/L (22-26); VBG pO2 55 mmHg
[2023-08-19 06:05] LABS: Parathyroid Hormone Intact 1623.7 pg/mL (8.7-77.1)
== END 2023-08-18 15:34 | disposition home or self-care (01) ==
LOC: HO.LAB 15:33
PROVIDERS: Absent Provider Internal Medicine; PCP Internal Medicine; Visit Provider Internal Medicine Hypertension Specialist
DX: J96.91 Respiratory failure, unspecified with hypoxia (principal); J96.92 Respiratory failure, unspecified with hypercapnia; J44.9 Chronic obstructive pulmonary disease, unspecified
CPT/HCPCS: 36415; 82803; 83970

== ENCOUNTER 2023-08-19 13:22 | Outpatient (REF) | payer MEDICARE, MEDICAID, SELFPAY ==
--- NOTE | ~2023-08-19 | XR_ITS ---
EXAMINATION: XR CHEST CLINICAL INFORMATION: Chronic obstructive pulmonary disease. COMPARISON: 02/03/2023. TECHNIQUE: 2 views of the chest were obtained. FINDINGS: There is no gross pneumothorax. Old healed right rib fractures. Severe rotoscoliosis with multilevel degenerative changes in the thoracolumbar spine. Borderline enlarged cardiac silhouette. Redemonstration of right mid lung and left lower lung streaky opacities characteristic of subsegmental atelectasis/scar. Trace blunting of the bilateral costophrenic angles may represent trace pleural effusions versus pleural thickening. XR/XR chest 2V IMPRESSION: 1. Redemonstration of right mid lung and left lower lung streaky opacities characteristic of subsegmental atelectasis/scar. 2. Trace blunting of the bilateral costophrenic angles may represent trace pleural effusions versus pleural thickening.
[2023-08-19 16:20] LABS: Basophils Percent Auto 0.2 % (0-2); Hematocrit 32.5 % (37.0-47.0); Hemoglobin 9.7 g/dl (12.0-16.0); Imm Gran Abs Auto 0.23 X10*3/uL (0.00-0.03); Imm Gran Pct Auto 1.7 % (0.0-0.4); Lymphocytes Absolute Auto 1.8 X10*3/uL (1.2-4.9); Lymphocytes Percent Auto 13.6 % (20-40); MANUAL DIFF FLAG SCAN; Mean Corpuscular HGB Conc 29.8 g/dl (31.0-35.0); Mean Corpuscular Volume 93.7 fL (80.0-98.0); Mean Platelet Volume 9.4 fL (9.4-12.3); Monocytes Absolute Auto 1.9 X10*3/uL (0.1-1.2); Monocytes Percent Auto 13.8 % (2-11); Neutrophils Absolute Auto 9.6 x10*3/uL (2.0-8.3); Neutrophils Percent Auto 70.7 % (45-73); Platelet Count 293 X10*3/uL (160-400); Red Blood Count 3.47 X10*6/uL (4.20-5.50); Red Cell Distribution Width 13.5 % (11.0-16.0); SCAN SMEAR FLAG 1; White Blood Count 13.5 X10*3/uL (4.8-10.8)
[2023-08-19 17:34] LABS: Alanine Aminotransferase 10 U/L (0-31); Alkaline Phosphatase 87 U/L (39-117); Anion Gap 17 (12-20); Aspartate Amino Transferase 12 U/L (5-31); Bilirubin Total 0.3 mg/dL (0.0-1.0); Blood Urea Nitrogen 70 mg/dL (9-16); Calcium 9.1 mg/dL (8.4-10.2); Carbon Dioxide 23 mmol/L (22-29); Chloride 108 mmol/L (96-108); Estimated Glomerular Filt Rate 16; Glucose Random 73 mg/dL (60-115); Sodium 144 mmol/L (135-145); Total Protein 6.9 g/dL (6.5-8.0)
[2023-08-19 17:35] LABS: Parathyroid Hormone Intact 1312.9 pg/mL (8.7-77.1)
[2023-08-19 17:36] LABS: SLIDE REVIEW VERIFIED
== END 2023-08-19 13:23 | disposition home or self-care (01) ==
LOC: HO.XRAY 13:22
PROVIDERS: Absent Provider Internal Medicine; PCP Internal Medicine; Visit Provider Internal Medicine Hypertension Specialist
DX: J40 Bronchitis, not specified as acute or chronic (principal); J44.1 Chronic obstructive pulmonary disease with (acute) exacerbation; J96.92 Respiratory failure, unspecified with hypercapnia; J96.91 Respiratory failure, unspecified with hypoxia; I12.0 Hypertensive chronic kidney disease with stage 5 chronic kidney disease or end stage renal disease; N18.5 Chronic kidney disease, stage 5; N25.81 Secondary hyperparathyroidism of renal origin; D63.1 Anemia in chronic kidney disease; E66.01 Morbid (severe) obesity due to excess calories; Z99.81 Dependence on supplemental oxygen; Z79.899 Other long term (current) drug therapy
CPT/HCPCS: 36415; 71046; 80053; 83970; 85025; 99212

== ENCOUNTER 2023-08-19 13:22 | Outpatient (AMB) | payer MEDICARE, MEDICAID, SELFPAY ==
[2023-08-19 13:24] VITALS: BP 118/80; PULSE 95; O2SAT 96; BMI 38.7
--- NOTE | 2023-08-19 13:24 | HO.NEPHOV ---
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 Required: No Accompanied by: Spouse Allergies ciprofloxacin [From Cipro] Allergy (Severe, Verified 08/19/23 14:21) HIVES/SWELLING, THROAT CLOSES shellfish derived [SHELLFISH DERIVED] Allergy (Intermediate, Verified 08/19/23 14:21) Vomiting NSAIDS (Non-Steroidal Anti-Inflamma Adverse Reaction (Severe, Verified 08/19/23 14:21) Avoid due to kidney disease HPI Comments Details: 62 years old female with advanced chronic obstructive pulmonary disease and chronic respiratory failure, on oxygen, and treated for acute exacerbation of COPD/respiratory failure, was able to normalize blood gases with aggressive treatment. She has advanced CKD approaching end stage renal disease. She has significant fluid overload requiring high-dose of diuretics. She is here for further follow-up. Recently admitted for respiratory illness and was treated with a course of prednisone. During hospitalization diltiazem has been discontinued but she is still taking it. 02/22/23: Doing better;No new issues 05/25/2023. Overall doing well. Recently missed Neurology appointment due to logistical issues. Respiratory status remains unchanged. Leg edema remains stable [facility] Medical History CKD (chronic kidney disease) stage 4, GFR 15-29 ml/min Morbid obesity COPD (chronic obstructive pulmonary disease) CKD (chronic kidney disease) stage 5, GFR less than 15 ml/min Polysubstance abuse JOAN (acute kidney injury) Respiratory failure with hypoxia and hypercapnia Acute exacerbation of chronic obstructive pulmonary disease Tremor of both hands Ambulates with cane Seasonal allergies Herpes zoster Post covid-19 condition, unspecified Osteopenia (~2017) Obesity Respiratory failure COVID-19 (~03/2021) Osteoarthritis of ankles, bilateral Olecranon bursitis of left elbow Tubulovillous adenoma of large intestine (~2020) Hx of cardiac arrest (~2015) O2 dependent Methadone maintenance therapy patient History of claustrophobia History of seizure Anxiety and depression HTN (hypertension) Multiple fractures of ribs Anemia in chronic kidney disease Vitamin D deficiency Family history of colon cancer Dyslipidemia Restrictive lung disease Lung cancer (~2019) LEO (obstructive sleep apnea) Surgical History Hx of tracheostomy History of esophagogastroduodenoscopy (EGD) (~2021) History of removal of ureteral stent (~2013) History of lung biopsy (~2019) History of colonoscopy (~2020) Umbilical hernia History of laparoscopy (~2012) History of hand surgery History of tubal ligation Family History Father Diabetes mellitus Mother Depression Mental health disorder Maternal Grandfather Colon cancer Sister No problems noted. Son No problems noted. Daughter No problems noted. Daughter No problems noted. Social History Household Members: Unknown / Unable to assess Housing: House Housing Other:: mobile home Are you a primary managed care analyst to a significant other at home: No Do you presently have visiting nurse or other home services: No Unable to assess alcohol history related to: Unable to respond Alcohol intake: never Comment: restraints Patient Tobacco Use Status: Former Tobacco user Tobacco use type: Cigarette Years Smoked: 25 yrs e-Cigarette/Vaping Use: Never Used Substance Use Type: Heroin Advance Directives Date on File: 03/21/21 service: No Current occupational status: unemployed and disabled Cognitive needs: No Hearing needs: No Vision needs: No Physical Exam Vital Signs: Last Vital Signs Pulse 95 08/19/23 13:24 BP 118/80 08/19/23 13:24 Pulse Ox 96 08/19/23 13:24 Oxygen Delivery Method Room Air 08/19/23 13:24 BMI result Body Mass Index 38.7 Const General: comfortable Nutritional Appearance: well nourished Orientation/consciousness: patient oriented x3 HEENT Head: No normal to inspection Mouth: moist mucous membranes Neck Neck: Yes supple and Yes no JVD Resp Auscultation: clear to auscultation bilaterally and no rales Cardio Jugular venous distension: no JVD Palpation: no palpable S3 and no palpable S4 Heart sounds: no rubs GI Palpation (GI): Soft to palpation and nontender Percussion: No Fluid wave present General: Yes no CVA tenderness Back/Spine/Pelvis Back: no CVA tenderness Skin General skin exam: no rashes or lesions noted Neuro General: patient oriented x3 Extrem General: No clubbing Results Reviewed Nephrology Results: Hgb 9.6 g/dl (12.0-16.0) L 05/21/23 WBC 7.4 X10*3/uL (4.8-10.8) 05/21/23 Plt Count 293 X10*3/uL (160-400) 05/21/23 Sodium 143 mmol/L (135-145) 05/21/23 Potassium 5.0 mmol/L (3.3-5.1) 05/21/23 Chloride 107 mmol/L (96-108) 05/21/23 Carbon Dioxide 27 mmol/L (22-29) 05/21/23 BUN 50 mg/dL (9-16) H 05/21/23 Creatinine 3.16 mg/dL (0.5-1.4) H 05/21/23 Calcium 10.1 mg/dL (8.4-10.2) 05/21/23 Phosphorus 3.1 mg/dL (2.7-4.5) 05/21/23 PTH Intact 1623.7 pg/mL (8.7-77.1) H 08/18/23 Assessment & Plan Assessment & Plan (1) CKD (chronic kidney disease) stage 5, GFR less than 15 ml/min: Code(s): N18.5 - Chronic kidney disease, stage 5 Category: Medical Plan: Advanced CKD approaching end stage renal disease. No overt signs or symptoms of uremia. Goal is to slow the portion renal disease. We will continue to watch renal function closely and initiate dialysis when appropriate. (2) Anemia in chronic kidney disease: Code(s): N18.9 - Chronic kidney disease, unspecified; D63.1 - Anemia in chronic kidney disease Category: Medical Qualifiers: Chronic kidney disease stage: stage 5, not on chronic dialysis Qualified Code(s): N18.5 - Chronic kidney disease, stage 5; D63.1 - Anemia in chronic kidney disease Plan: No absolute indication to start erythropoietin yet. Hct has improved I will follow the hemoglobin along with iron stores and start on epogen as needed. (3) Acute exacerbation of chronic obstructive pulmonary disease: Code(s): J44.1 - Chronic obstructive pulmonary disease with (acute) exacerbation Category: Medical Plan: Management per PCP Continue DuoNeb updrafts q.i.d. and Breo-100 1 inhalation daily. Prednisone 20 mg b.i.d. for 7 days. Mucinex 600 mg b.i.d. also prescribed. (4) HTN (hypertension): Code(s): I10 - Essential (primary) hypertension Category: Medical Plan: Blood pressure is better controlled No need for CArdizem ( was stopepd in Jan 2023) Continue with Coreg 3.125 b.i.d.. No changes were made to her diabetic regimen. (5) Secondary hyperparathyroidism: Code(s): N25.81 - Secondary hyperparathyroidism of renal origin Category: Medical Plan: PTH is more than 1600. Increase calcitriol to 1 mcg daily Watch PTH and Ca Orders: Orders Basic Metabolic Panel Today N25.81 - Secondary hyperparathyroidism of renal origin Comprehensive Met. Panel 3 Months N18.4 - Chronic kidney disease, stage 4 (severe) Complete Blood Count Auto Diff 3 Months N18.4 - Chronic kidney disease, stage 4 (severe) Medications: Changed From calcitriol 0.25 mcg PO DAILY 30 caps 0RF To calcitriol 1 mcg (2 x 0.5 mcg) PO DAILY 60 caps 1RF Coding Level of Care Code Est Pt Level 4 (11375) Diagnoses CKD (chronic kidney disease) stage 5, GFR less than 15 ml/min N18.5 Anemia in stage 5 chronic kidney disease, not on chronic dialysis N18.5; D63.1 Chronic kidney disease stage: stage 5, not on chronic dialysis Acute exacerbation of chronic obstructive pulmonary disease J44.1 HTN (hypertension) I10 Secondary hyperparathyroidism N25.81
== END 2023-08-19 13:40 | disposition home or self-care (01) ==
PROVIDERS: PCP Internal Medicine; Visit Provider Internal Medicine Hypertension Specialist
DX: N18.5 Chronic kidney disease, stage 5 (principal); D63.1 Anemia in chronic kidney disease; J44.1 Chronic obstructive pulmonary disease with (acute) exacerbation; I12.0 Hypertensive chronic kidney disease with stage 5 chronic kidney disease or end stage renal disease; N25.81 Secondary hyperparathyroidism of renal origin
CPT/HCPCS: 99214

== ENCOUNTER 2023-08-19 13:53 | Outpatient (AMB) | payer MEDICARE, MEDICAID, SELFPAY ==
[2023-08-19 14:17] VITALS: BP 110/68; PULSE 88; O2SAT 95; BMI 38.7
--- NOTE | 2023-08-19 14:17 | A.OFFVIS_ITS ---
Vital Signs 08/19/23 14:17 Height 5 ft 1 in Weight 205 lb BMI 38.7 BP 110/68 Blood Pressure Location Lt brachial Position Sitting Pulse 88 Pulse Source Pulse Oximeter Pulse Oximetry (%) 95 Oxygen Delivery Method Nasal Cannula Oxygen Flow Rate 2 Intake Visit Reasons: Sick visit (adolescent/adult) Intake Note: pt is here for sick visit and states she has a lot of congestion that she cannot get up, larthegic, sleeping all the time, felt better on prednisone only when taking it and after it was done , all came back. 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 Required: No Allergies ciprofloxacin [From Cipro] Allergy (Severe, Verified 08/19/23 14:38) HIVES/SWELLING, THROAT CLOSES shellfish derived [SHELLFISH DERIVED] Allergy (Intermediate, Verified 08/19/23 14:38) Vomiting NSAIDS (Non-Steroidal Anti-Inflamma Adverse Reaction (Severe, Verified 08/19/23 14:38) Avoid due to kidney disease Medication List - Last Reconciled 08/19/23 by Mayte Cochran MD acetaminophen 650 mg PO Q6H PRN aspirin 81 mg PO DAILY Breo Ellipta 100-25 mcg/dose (fluticasone furoate-vilanterol) 1 ea PO DAILY 90 days NS calcitriol 1 mcg (2 x 0.5 mcg) PO DAILY carvedilol 3.125 mg PO BID fluticasone propionate 50 mcg/actuation 1 spray intranasal DAILY gabapentin 100 mg PO .prn PRN guaifenesin ER (Mucinex) 600 mg PO BID PRN hydroxyzine pamoate 100 mg PO BEDTIME PRN ipratropium-albuterol 0.5 mg-3 mg(2.5 mg base)/3 mL 3 mL inhalation Q4-6H PRN lorazepam 1 mg PO BID PRN methadone 70 mg PO DAILY torsemide 20 mg PO BID 30 days Do you need a note to return to daycare/school/sports/work: No HPI HPI Sick visit (adolescent/adult): Details: IMTIAZ, 63 YEARS OLD FEMALE IS HERE FOR AN URGENT FOLLOW-UP VISIT. LAST WEEK SHE HAD CALLED AND SHE WAS QUITE SICK WITH CONGESTED FEELING IN THE THROAT AND FREQUENT COUGH ALSO CLAIMS THAT SHE HAD LOW-GRADE FEVER. SHE WAS TREATED WITH A COURSE OF PREDNISONE 20 MG B.I.D. FOR 5 DAYS AND HAS IMPROVED BUT STILL HAS RESIDUAL COUGH AND CONGESTED FEELING. AT THIS TIME SHE HAS NO FEVER. SHE CONTINUES TO FEEL LETHARGIC. SHE SAY IS THAT PREDNISONE IS THE ONLY THING WHICH MAKES HER BETTER. [facility]MERLY [facility] Medical History Bronchitis CKD (chronic kidney disease) stage 4, GFR 15-29 ml/min Morbid obesity COPD (chronic obstructive pulmonary disease) CKD (chronic kidney disease) stage 5, GFR less than 15 ml/min Polysubstance abuse JOAN (acute kidney injury) Respiratory failure with hypoxia and hypercapnia Acute exacerbation of chronic obstructive pulmonary disease Tremor of both hands Ambulates with cane Seasonal allergies Herpes zoster Post covid-19 condition, unspecified Osteopenia (~2017) Obesity Respiratory failure COVID-19 (~03/2021) Osteoarthritis of ankles, bilateral Olecranon bursitis of left elbow Tubulovillous adenoma of large intestine (~2020) Hx of cardiac arrest (~2015) O2 dependent Methadone maintenance therapy patient History of claustrophobia History of seizure Anxiety and depression HTN (hypertension) Multiple fractures of ribs Anemia in chronic kidney disease Vitamin D deficiency Family history of colon cancer Dyslipidemia Restrictive lung disease Lung cancer (~2019) LEO (obstructive sleep apnea) Surgical History Hx of tracheostomy History of esophagogastroduodenoscopy (EGD) (~2021) History of removal of ureteral stent (~2013) History of lung biopsy (~2019) History of colonoscopy (~2020) Umbilical hernia History of laparoscopy (~2012) History of hand surgery History of tubal ligation Family History Father Diabetes mellitus Mother Depression Mental health disorder Maternal Grandfather Colon cancer Sister No problems noted. Son No problems noted. Daughter No problems noted. Daughter No problems noted. Social History Household Members: Unknown / Unable to assess Housing: House Housing Other:: mobile home Are you a primary customer care team coach to a significant other at home: No Do you presently have visiting nurse or other home services: No Unable to assess alcohol history related to: Unable to respond Alcohol intake: never Comment: restraints Patient Tobacco Use Status: Former Tobacco user Tobacco use type: Cigarette Years Smoked: 25 yrs e-Cigarette/Vaping Use: Never Used Substance Use Type: Heroin Advance Directives Date on File: 03/21/21 service: No Current occupational status: unemployed and disabled Cognitive needs: No Hearing needs: No Vision needs: No Review of Systems Const All systems reviewed & are unremarkable except as noted in HPI and below Eyes Reports no additional complaints ENT Reports no additional complaints Card Denies chest pain, Denies irregular heart rhythm and Denies leg edema Resp Reports as per HPI and Reports other (RIGHT-SIDED RIBCAGE PAIN IS NEW DUE TO THE FALL AT HOME) GI Denies no additional complaints Denies no additional complaints Musc Reports abnormal gait (IMPAIRED LOCOMOTION, WALKS SLOW, WITH MINIMAL SUPPORT) and Reports back pain Skin/Breast Reports system reviewed and no additional complaints, except as documented Neuro Reports abnormal gait (IMPAIRED LOCOMOTION, WALKS SLOW, WITH MINIMAL SUPPORT) Psych Reports no additional complaints Physical Exam Vital Signs: Last Vital Signs Pulse 88 08/19/23 14:17 BP 110/68 08/19/23 14:17 Pulse Ox 95 08/19/23 14:17 Oxygen Delivery Method Nasal Cannula 08/19/23 14:17 Oxygen Flow Rate 2 08/19/23 14:17 BMI result Body Mass Index 38.7 Const General: comfortable, no acute distress, alert, awake and other (WALKS SLOWLY, WITH THE HELP OF A CANE.) Orientation/consciousness: patient oriented x3 HEENT Head: Yes normal to inspection General nose exam: No nasal polyps present and No nasal discharge present Face and sinus: Yes sinuses nontender Mouth: oropharynx normal Teeth and gingiva: other (THROAT IS CLEAR NO THRUSH AND NO EXTRA MUCUS NOTED) Throat: Yes posterior oropharynx normal Eyes General: appearance normal, both eyes and all related structures Neck Neck: Yes normal visual inspection, Yes no lymphadenopathy, Yes trachea midline and Yes no JVD Thyroid: Thyroid normal Chest Chest palpation & inspection: normal inspection of the chest, normal palpation of entire chest wall and no tenderness Resp Other: PERCUSSION NOTE IS RESONANT, BREATH SOUNDS ARE VERY DISTANT BUT EQUAL ON BOTH SIDES. NO WHEEZES OR RHONCHI ARE HEARD TODAY. Cardio Palpation: PMI not normal (PMI IS NOT PALPABLE.) and other Rate: regular rate Rhythm: regular rhythm Heart sounds: no gallops and no murmurs GI Palpation (GI): Soft to palpation, nontender, No hepatosplenomegaly present, no masses and Other GI palpation findings present (ABDOMEN IS OBESE AND PROTUBERANT) Auscultation: normal bowel sounds Back/Spine/Pelvis Thoracic/Lumbar Spine: thoracic and lumbar spine normal to inspection and thoraco-lumbar ROM limited Skin General skin exam: no rashes or lesions noted Neuro General: patient oriented x3, No gait normal (GAIT IS SLOW AND SLIGHTLY UNSTABLE PATIENT NEEDS A CANE TO WALK) and no focal motor deficits Cranial nerves: Yes CN's II-XII intact bilaterally Extrem General: Yes normal to inspection, Yes no calf tenderness and Yes edema (CHRONIC STASIS EDEMA OF THE LEGS) Psych Appearance: grossly normal and well kempt Speech and movement: Normal speech and movement present Results Reviewed Results Reviewed: CHEST X-RAY IS ORDERED Assessment & Plan Assessment & Plan (1) COPD (chronic obstructive pulmonary disease): Comment: PATIENT HAS LONG-STANDING HISTORY OF CHRONIC OBSTRUCTIVE PULMONARY DISEASE PRIMARILY DUE TO HER LONG TIME SMOKING, SHE QUIT EARLIER IN 2022. GETS FREQUENT ACUTE EXACERBATION, AND IS RECOVERING FROM HER ACUTE EXACERBATION LAST WEEK. Code(s): J44.9 - Chronic obstructive pulmonary disease, unspecified Category: Medical Plan: I TOLD HER THAT THE DOES NOT SEEM TO BE ANY ACUTE ISSUE AT THIS TIME. WILL GET A CHEST X-RAY TO MAKE SURE THAT SHE HAS NO PNEUMONIA. CONTINUE PRESENT REGIMEN INCLUDING BREO 200-251 INHALATION DAILY AND DUONEB UPDRAFTS Q 6 HOURS WHILE AWAKE. BECAUSE OF HER RECURRENT ACUTE EXACERBATION PROBABLY DUE TO CHEST CONGESTION, I WOULD EMPIRICALLY START HER ON AZITHROMYCIN 250 MG 3 TIMES A WEEK ( MWF ) (2) Morbid obesity: Comment: SHE IS CHRONICALLY OBESE MAINLY DUE TO LACK OF PHYSICAL ACTIVITY. CURRENT BMI 38.7 DENIES SYMPTOMS OF SLEEP APNEA Code(s): E66.01 - Morbid (severe) obesity due to excess calories Category: Medical Plan: PATIENT IS AWARE OF THIS AND THERE IS NO SPECIFIC INTERVENTION AT THIS TIME. (3) Respiratory failure with hypoxia and hypercapnia: Comment: PATIENT HAS CHRONIC HYPOXEMIA WITH HYPOXEMIA/ HYPERCAPNIA. LOST ABG ON 12/14/2022 PH 7.21 PCO2 69 PO2 79 LOST VENOUS BLOOD GAS: PH 7.44 PCO2 44 PO2 66 TODAY PH 7.46, PCO2= 37 , PO2 55 % ( ON O2 ) Code(s): J96.91 - Respiratory failure, unspecified with hypoxia; J96.92 - Respiratory failure, unspecified with hypercapnia Category: Medical Plan: I REASSURED HER THAT HER VENTILATORY STATUS IS FAIRLY STABLE. CONTINUE USING O2 2 L/MINUTE CONTINUE TO DO DEEP BREATHING EXERCISES 3 TO 4 TIMES A DAY. AVOID USING ANY NARCOTIC MEDS EXCEPT FOR THE METHADONE (4) Bronchitis: Comment: SHE HAS TENDENCY TO DEVELOP ACUTE BRONCHITIS FREQUENTLY. THIS MAY BE DUE TO HER LACK COUGH ABILITY TO EXPECTORATES MUCUS. Code(s): J40 - Bronchitis, not specified as acute or chronic Category: Medical Plan: NOTED ABOVE UNDER COPD I WILL START HER ON AZITHROMYCIN 250 MG ON Wednesday AND WEDNESDAY. Orders: Orders XR chest 2V Today J40 - Bronchitis, not specified as acute or chronic, J44.9 - Chronic obstructive pulmonary disease, unspecified Medications: New azithromycin 250 mg PO 3XW 30 days 13 tabs 3RF COPD/BRONCHITIS Coding Level of Care Code Est Pt Level 3 (21298) Diagnoses COPD (chronic obstructive pulmonary disease) J44.9 Morbid obesity E66.01 Respiratory failure with hypoxia and hypercapnia J96.91; J96.92 Bronchitis J40
== END 2023-08-19 14:36 | disposition home or self-care (01) ==
PROVIDERS: PCP Internal Medicine; Visit Provider Internal Medicine
DX: J44.9 Chronic obstructive pulmonary disease, unspecified (principal); E66.01 Morbid (severe) obesity due to excess calories; J96.91 Respiratory failure, unspecified with hypoxia; J96.92 Respiratory failure, unspecified with hypercapnia; J40 Bronchitis, not specified as acute or chronic
CPT/HCPCS: 99213

== ENCOUNTER 2023-09-22 14:09 | Outpatient (AMB) | payer MEDICARE, MEDICAID, SELFPAY ==
--- NOTE | 2023-09-22 14:14 | A.OFFVIS_ITS ---
Vital Signs 09/22/23 14:15 Height 5 ft 1 in Weight 207 lb 3.752 oz BMI 39.2 BP 112/68 Blood Pressure Location Lt brachial Position Sitting Pulse 98 Pulse Source Pulse Oximeter Pulse Oximetry (%) 95 Oxygen Delivery Method Nasal Cannula Oxygen Flow Rate 2 Intake Visit Reasons: Sick visit (adolescent/adult), COPD follow-up, RESPIRATORY FAILURE Allergies ciprofloxacin [From Cipro] Allergy (Severe, Verified 09/22/23 14:39) HIVES/SWELLING, THROAT CLOSES shellfish derived [SHELLFISH DERIVED] Allergy (Intermediate, Verified 09/22/23 14:39) Vomiting NSAIDS (Non-Steroidal Anti-Inflamma Adverse Reaction (Severe, Verified 09/22/23 14:39) Avoid due to kidney disease Medication List - Last Reconciled 09/22/23 by Mayte Cochran MD acetaminophen 650 mg PO Q6H PRN aspirin 81 mg PO DAILY azithromycin 250 mg PO 3XW 30 days Breo Ellipta 100-25 mcg/dose (fluticasone furoate-vilanterol) 1 ea PO DAILY 90 days NS calcitriol 1 mcg (2 x 0.5 mcg) PO DAILY carvedilol 3.125 mg PO BID fluticasone propionate 50 mcg/actuation 1 spray intranasal DAILY gabapentin 100 mg PO .prn PRN guaifenesin ER (Mucinex) 600 mg PO BID PRN hydroxyzine pamoate 100 mg PO BEDTIME PRN ipratropium-albuterol 0.5 mg-3 mg(2.5 mg base)/3 mL 3 mL inhalation Q4-6H PRN lorazepam 1 mg PO BID PRN methadone 70 mg PO DAILY prednisone 5 mg PO DAILY 30 days torsemide 20 mg PO BID 30 days Do you need a note to return to daycare/school/sports/work: No HPI HPI Sick visit (adolescent/adult): Details: 63 YEARS OLD FEMALE, GROSSLY OBESE, A CASE OF CHRONIC OBSTRUCTIVE PULMONARY DISEASE WITH CHRONIC RESPIRATORY FAILURE, AUGUST HISTORY OF SMOKING, PAST HISTORY OF OPIOID ADDICTION, CURRENTLY ON METHADONE. COMES TODAY FOR FOLLOW-UP, LAST MONTH SHE WAS TREATED FOR RECURRENT BRONCHITIS CAUSING ACUTE EXACERBATIONS OF HER COPD. SHE HAS BEEN ON AZITHROMYCIN 250 MG 3 DAYS A WEEK IN ADDITION TO HER OTHER MAXIMUM TREATMENT REGIMEN. PREDNISONE 5 MG DAILY WAS ADDED TO PREVENT RECURRENT ACUTE EXACERBATIONS. SHE HAS DONE VERY WELL DURING THE PAST MONTH . HAS VERY LITTLE COUGH OR EXPECTORATION , AND HER RESPIRATORY STATUS HAS STAYED AT HER BASELINE. SHE IS ABLE TO MOVE AROUND IN THE HOUSE MORE FREELY SHE USES O2 2 L/MINUTE 24 HOURS A DAY. [facility] Medical History Bronchitis CKD (chronic kidney disease) stage 4, GFR 15-29 ml/min Morbid obesity COPD (chronic obstructive pulmonary disease) CKD (chronic kidney disease) stage 5, GFR less than 15 ml/min Polysubstance abuse JOAN (acute kidney injury) Respiratory failure with hypoxia and hypercapnia Acute exacerbation of chronic obstructive pulmonary disease Tremor of both hands Ambulates with cane Seasonal allergies Herpes zoster Post covid-19 condition, unspecified Osteopenia (~2017) Obesity Respiratory failure COVID-19 (~03/2021) Osteoarthritis of ankles, bilateral Olecranon bursitis of left elbow Tubulovillous adenoma of large intestine (~2020) Hx of cardiac arrest (~2015) O2 dependent Methadone maintenance therapy patient History of claustrophobia History of seizure Anxiety and depression HTN (hypertension) Multiple fractures of ribs Anemia in chronic kidney disease Vitamin D deficiency Family history of colon cancer Dyslipidemia Restrictive lung disease Lung cancer (~2019) LEO (obstructive sleep apnea) Surgical History Hx of tracheostomy History of esophagogastroduodenoscopy (EGD) (~2021) History of removal of ureteral stent (~2013) History of lung biopsy (~2019) History of colonoscopy (~2020) Umbilical hernia History of laparoscopy (~2012) History of hand surgery History of tubal ligation Family History Father Diabetes mellitus Mother Depression Mental health disorder Maternal Grandfather Colon cancer Sister No problems noted. Son No problems noted. Daughter No problems noted. Daughter No problems noted. Social History Household Members: Unknown / Unable to assess Housing: House Housing Other:: mobile home Are you a primary intensive care anaesthetist to a significant other at home: No Do you presently have visiting nurse or other home services: No Unable to assess alcohol history related to: Unable to respond Alcohol intake: never Comment: restraints Patient Tobacco Use Status: Former Tobacco user Tobacco use type: Cigarette Years Smoked: 25 yrs e-Cigarette/Vaping Use: Never Used Substance Use Type: Heroin Advance Directives Date on File: 03/21/21 service: No Current occupational status: unemployed and disabled Cognitive needs: No Hearing needs: No Vision needs: No Review of Systems Const All systems reviewed & are unremarkable except as noted in HPI and below Eyes Reports no additional complaints ENT Reports no additional complaints Card Denies chest pain, Denies irregular heart rhythm and Denies leg edema Resp Reports as per HPI and Reports other (RIGHT-SIDED RIBCAGE PAIN IS NEW DUE TO THE FALL AT HOME) GI Denies no additional complaints Denies no additional complaints Musc Reports abnormal gait (IMPAIRED LOCOMOTION, WALKS SLOW, WITH MINIMAL SUPPORT) and Reports back pain Skin/Breast Reports system reviewed and no additional complaints, except as documented Neuro Reports abnormal gait (IMPAIRED LOCOMOTION, WALKS SLOW, WITH MINIMAL SUPPORT) Psych Reports no additional complaints Physical Exam Vital Signs: Last Vital Signs Pulse 98 09/22/23 14:15 BP 112/68 09/22/23 14:15 Pulse Ox 95 09/22/23 14:15 Oxygen Delivery Method Nasal Cannula 09/22/23 14:15 Oxygen Flow Rate 2 09/22/23 14:15 BMI result Body Mass Index 39.2 Const General: comfortable, no acute distress, alert, awake and other (WALKS SLOWLY, WITH THE HELP OF A CANE.) Orientation/consciousness: patient oriented x3 HEENT Head: Yes normal to inspection General nose exam: No nasal polyps present and No nasal discharge present Face and sinus: Yes sinuses nontender Mouth: oropharynx normal Teeth and gingiva: other (THROAT IS CLEAR NO THRUSH AND NO EXTRA MUCUS NOTED) Throat: Yes posterior oropharynx normal Eyes General: appearance normal, both eyes and all related structures Neck Neck: Yes normal visual inspection, Yes no lymphadenopathy, Yes trachea midline and Yes no JVD Thyroid: Thyroid normal Chest Chest palpation & inspection: normal inspection of the chest, normal palpation of entire chest wall and no tenderness Resp Other: PERCUSSION NOTE IS RESONANT, BREATH SOUNDS ARE VERY DISTANT BUT EQUAL ON BOTH SIDES. NO WHEEZES OR RHONCHI ARE HEARD TODAY. Cardio Palpation: PMI not normal (PMI IS NOT PALPABLE.) and other Rate: regular rate Rhythm: regular rhythm Heart sounds: no gallops and no murmurs GI Palpation (GI): Soft to palpation, nontender, No hepatosplenomegaly present, no masses and Other GI palpation findings present (ABDOMEN IS OBESE AND PROTUBERANT) Auscultation: normal bowel sounds Back/Spine/Pelvis Thoracic/Lumbar Spine: thoracic and lumbar spine normal to inspection and thoraco-lumbar ROM limited Skin General skin exam: no rashes or lesions noted Neuro General: patient oriented x3, No gait normal (GAIT IS SLOW AND SLIGHTLY UNSTABLE PATIENT NEEDS A CANE TO WALK) and no focal motor deficits Cranial nerves: Yes CN's II-XII intact bilaterally Extrem General: Yes normal to inspection, Yes no calf tenderness and Yes edema (CHRONIC STASIS EDEMA OF THE LEGS) Psych Appearance: grossly normal and well kempt Speech and movement: Normal speech and movement present Results Reviewed Results Reviewed: VENOUS BGs ON 08/17 ph 7.46 pco 2 37 ( MUCH IMPROVED ) chest xray : NO PNEUMONIA, SOME DEGREE OF ATALECTATIC CHANGES IN LOWER LOBES Assessment & Plan Assessment & Plan (1) COPD (chronic obstructive pulmonary disease): Comment: PATIENT HAS LONG-STANDING HISTORY OF CHRONIC OBSTRUCTIVE PULMONARY DISEASE PRIMARILY DUE TO HER LONG TIME SMOKING, SHE QUIT EARLIER IN 2022. GETS FREQUENT ACUTE EXACERBATIONS,. NOW HAS HAD NO ACUTE EXACERBATION IN THE LAST MONTH. SHE CLAIMS THAT IT IS PREDNISONE WHICH HAS MADE HER BETTER, AND WOULD LIKE TO CONTINUE ON A SMALL DOES FOR MAINTENANCE Code(s): J44.9 - Chronic obstructive pulmonary disease, unspecified Category: Medical Plan: CONTIINUE: EVENSO ELLIPTA 100-25 1 INHALATION DAILY IPRATROPIUM-ALBUTEROL SOLUTION IN THE NEBULIZER Q 6 HOURS WHILE AWAKE MUCINEX ER 600 MG B.I.D. P.R.N. AZITHROMYCIN 250 MG Wednesday. PREDNISONE 5 MG ON ALTERNATE DAYS (2) Morbid obesity: Comment: SHE IS CHRONICALLY OBESE MAINLY DUE TO LACK OF PHYSICAL ACTIVITY. CURRENT BMI 39.2 DENIES SYMPTOMS OF SLEEP APNEA Code(s): E66.01 - Morbid (severe) obesity due to excess calories Category: Medical Plan: WEIGHT LOSS IS DESIRABLE BUT IT IS DIFFICULT TO ACHIEVE IN HER CASE. (3) Respiratory failure with hypoxia and hypercapnia: Comment: PATIENT HAS CHRONIC HYPOXEMIA WITH HYPOXEMIA/ HYPERCAPNIA. LOST ABG ON 12/14/2022 PH 7.21 PCO2 69 PO2 79 LOST VENOUS BLOOD GAS: PH 7.44 PCO2 44 PO2 66 ON 08/18 PH 7.46, PCO2= 37 , PO2 55 % ( ON O2 ) IMPROVED Code(s): J96.91 - Respiratory failure, unspecified with hypoxia; J96.92 - Respiratory failure, unspecified with hypercapnia Category: Medical Plan: CONTINUE TO USE O2 2 L/MINUTE 24 HO.URS A DAY CONTINUE DOING DEEP BREATHING EXERCISES WITH PURSED LIP TECHNIQUE EVERY. 2 HOURS WHILE AWAKE Coding Level of Care Code Est Pt Level 3 (21935) Diagnoses COPD (chronic obstructive pulmonary disease) J44.9 Morbid obesity E66.01 Respiratory failure with hypoxia and hypercapnia J96.91; J96.92
[2023-09-22 14:15] VITALS: BP 112/68; PULSE 98; O2SAT 95; BMI 39.2
== END 2023-09-22 14:34 | disposition home or self-care (01) ==
PROVIDERS: PCP Internal Medicine; Visit Provider Internal Medicine
DX: J44.9 Chronic obstructive pulmonary disease, unspecified (principal); E66.01 Morbid (severe) obesity due to excess calories; J96.91 Respiratory failure, unspecified with hypoxia; J96.92 Respiratory failure, unspecified with hypercapnia
CPT/HCPCS: 99213

== ENCOUNTER → 2023-09-22 14:09 | Outpatient (BNVA) | payer MEDICARE, MEDICAID, SELFPAY | PROVIDERS: PCP Internal Medicine; Visit Provider Internal Medicine | DX: J44.9 Chronic obstructive pulmonary disease, unspecified (principal); E66.01 Morbid (severe) obesity due to excess calories; J96.91 Respiratory failure, unspecified with hypoxia; J96.92 Respiratory failure, unspecified with hypercapnia | CPT/HCPCS: 99212 ==

== ENCOUNTER 2023-10-21 12:19 | Outpatient (REF) | payer MEDICARE, MEDICAID, SELFPAY ==
[2023-10-21 17:36] LABS: Anion Gap 21 (12-20); Blood Urea Nitrogen 44 mg/dL (9-16); Calcium 9.7 mg/dL (8.4-10.2); Carbon Dioxide 19 mmol/L (22-29); Chloride 109 mmol/L (96-108); Estimated Glomerular Filt Rate 11; Glucose Random 52 mg/dL (60-115); Potassium 5.3 mmol/L (3.3-5.1); Sodium 144 mmol/L (135-145)
== END 2023-10-21 12:20 | disposition home or self-care (01) ==
LOC: HO.HMGCLDS 12:19
PROVIDERS: PCP Internal Medicine; Visit Provider Internal Medicine Hypertension Specialist
DX: N25.81 Secondary hyperparathyroidism of renal origin (principal)
CPT/HCPCS: 36415; 80048

== ENCOUNTER 2023-10-25 14:11 | Outpatient (AMB) | payer MEDICARE, MEDICAID, SELFPAY ==
--- NOTE | 2023-10-25 14:12 | HO.NEPHOV_ITS ---
Vital Signs 10/25/23 14:13 Height 5 ft 1 in Weight 215 lb BMI 40.6 BP 124/68 Blood Pressure Location Lt brachial Position Sitting Pulse 101 H Pulse Source Pulse Oximeter Pulse Oximetry (%) 92 Oxygen Delivery Method Room Air Intake Visit Reasons: CKD/ Conf Chief Pharmacist Required: No Accompanied by: Spouse Allergies ciprofloxacin [From Cipro] Allergy (Severe, Verified 11/30/23 14:56) HIVES/SWELLING, THROAT CLOSES shellfish derived [SHELLFISH DERIVED] Allergy (Intermediate, Verified 11/30/23 14:56) Vomiting NSAIDS (Non-Steroidal Anti-Inflamma Adverse Reaction (Severe, Verified 11/30/23 14:56) Avoid due to kidney disease Medication List - Last Reconciled 10/25/23 by Fermin Muhammad MD acetaminophen 650 mg PO Q6H PRN aspirin 81 mg PO DAILY azithromycin 250 mg PO 3XW 30 days Breo Ellipta 100-25 mcg/dose (fluticasone furoate-vilanterol) 1 ea PO DAILY 90 days NS calcitriol 1 mcg (2 x 0.5 mcg) PO DAILY carvedilol 3.125 mg PO BID fluticasone propionate 50 mcg/actuation 1 spray intranasal DAILY gabapentin 100 mg PO .prn PRN guaifenesin ER (Mucinex) 600 mg PO BID PRN hydroxyzine pamoate 100 mg PO BEDTIME PRN ipratropium-albuterol 0.5 mg-3 mg(2.5 mg base)/3 mL 3 mL inhalation Q4-6H PRN lorazepam 1 mg PO BID PRN methadone 70 mg PO DAILY prednisone 5 mg PO DAILY 30 days sodium zirconium cyclosilicate (Lokelma) 10 grams PO DAILY torsemide 20 mg PO BID 30 days HPI Comments Details: 62 years old female with advanced chronic obstructive pulmonary disease and chronic respiratory failure, on oxygen, and treated for acute exacerbation of COPD/respiratory failure, was able to normalize blood gases with aggressive treatment. She has advanced CKD approaching end stage renal disease. She has significant fluid overload requiring high-dose of diuretics. She is here for further follow-up. Recently admitted for respiratory illness and was treated with a course of prednisone. During hospitalization diltiazem has been discontinued but she is still taking it. 02/22/23: Doing better;No new issues 05/25/2023. Overall doing well. Recently missed Neurology appointment due to logistical issues. Respiratory status remains unchanged. Leg edema remains stable [facility] Medical History Bronchitis CKD (chronic kidney disease) stage 4, GFR 15-29 ml/min Morbid obesity COPD (chronic obstructive pulmonary disease) CKD (chronic kidney disease) stage 5, GFR less than 15 ml/min Polysubstance abuse JOAN (acute kidney injury) Respiratory failure with hypoxia and hypercapnia Acute exacerbation of chronic obstructive pulmonary disease Tremor of both hands Ambulates with cane Seasonal allergies Herpes zoster Post covid-19 condition, unspecified Osteopenia (~2017) Obesity Respiratory failure COVID-19 (~03/2021) Osteoarthritis of ankles, bilateral Olecranon bursitis of left elbow Tubulovillous adenoma of large intestine (~2020) Hx of cardiac arrest (~2015) O2 dependent Methadone maintenance therapy patient History of claustrophobia History of seizure Anxiety and depression HTN (hypertension) Multiple fractures of ribs Anemia in chronic kidney disease Vitamin D deficiency Family history of colon cancer Dyslipidemia Restrictive lung disease Lung cancer (~2019) LEO (obstructive sleep apnea) Surgical History Hx of tracheostomy History of esophagogastroduodenoscopy (EGD) (~2021) History of removal of ureteral stent (~2013) History of lung biopsy (~2019) History of colonoscopy (~2020) Umbilical hernia History of laparoscopy (~2012) History of hand surgery History of tubal ligation Family History Father Diabetes mellitus Mother Depression Mental health disorder Maternal Grandfather Colon cancer Sister No problems noted. Son No problems noted. Daughter No problems noted. Daughter No problems noted. Social History Household Members: Unknown / Unable to assess Housing: House Housing Other:: mobile home Are you a primary rn complex care to a significant other at home: No Do you presently have visiting nurse or other home services: No Unable to assess alcohol history related to: Unable to respond Alcohol intake: never Comment: restraints Patient Tobacco Use Status: Former Tobacco user Tobacco use type: Cigarette Years Smoked: 25 yrs e-Cigarette/Vaping Use: Never Used Substance Use Type: Heroin Advance Directives Date on File: 03/21/21 service: No Current occupational status: unemployed and disabled Cognitive needs: No Hearing needs: No Vision needs: No Physical Exam Vital Signs: Last Vital Signs Pulse 101 H 10/25/23 14:13 BP 124/68 10/25/23 14:13 Pulse Ox 92 10/25/23 14:13 Oxygen Delivery Method Room Air 10/25/23 14:13 BMI result Body Mass Index 40.6 Results Reviewed Nephrology Results: Hgb 9.6 g/dl (12.0-16.0) L 11/25/23 WBC 9.1 X10*3/uL (4.8-10.8) 11/25/23 Plt Count 268 X10*3/uL (160-400) 11/25/23 Sodium 142 mmol/L (135-145) 11/25/23 Potassium 4.6 mmol/L (3.3-5.1) 11/25/23 Chloride 106 mmol/L (96-108) 11/25/23 Carbon Dioxide 26 mmol/L (22-29) 11/25/23 BUN 52 mg/dL (9-16) H 11/25/23 Creatinine 4.24 mg/dL (0.5-1.4) H* 11/25/23 Calcium 9.9 mg/dL (8.4-10.2) 11/25/23 Assessment & Plan Assessment & Plan (1) CKD (chronic kidney disease) stage 5, GFR less than 15 ml/min: Code(s): N18.5 - Chronic kidney disease, stage 5 Category: Medical Plan: Advanced CKD approaching end stage renal disease. No overt signs or symptoms of uremia. Goal is to slow the portion renal disease. We will continue to watch renal function closely and initiate dialysis when appropriate. (2) Anemia in chronic kidney disease: Code(s): N18.9 - Chronic kidney disease, unspecified; D63.1 - Anemia in chronic kidney disease Category: Medical Qualifiers: Chronic kidney disease stage: stage 5, not on chronic dialysis Qualified Code(s): N18.5 - Chronic kidney disease, stage 5; D63.1 - Anemia in chronic kidney disease Plan: No absolute indication to start erythropoietin yet. Hct has improved I will follow the hemoglobin along with iron stores and start on epogen as needed. (3) Acute exacerbation of chronic obstructive pulmonary disease: Code(s): J44.1 - Chronic obstructive pulmonary disease with (acute) exacerbation Category: Medical Plan: Management per PCP Continue DuoNeb updrafts q.i.d. and Breo-100 1 inhalation daily. Prednisone 20 mg b.i.d. for 7 days. Mucinex 600 mg b.i.d. also prescribed. (4) HTN (hypertension): Code(s): I10 - Essential (primary) hypertension Category: Medical Plan: Blood pressure is better controlled No need for CArdizem ( was stopepd in Jan 2023) Continue with Coreg 3.125 b.i.d.. No changes were made to her diabetic regimen. (5) Secondary hyperparathyroidism: Code(s): N25.81 - Secondary hyperparathyroidism of renal origin Category: Medical Plan: PTH is more than 1600. Increase calcitriol to 1 mcg daily Watch PTH and Ca Orders: Orders Basic Metabolic Panel 10/26/23 N18.4 - Chronic kidney disease, stage 4 (severe) Medications: New sodium zirconium cyclosilicate (Lokelma) 10 grams PO DAILY 10 ea 0RF Coding Level of Care Code Est Pt Level 4 (76651) Diagnoses CKD (chronic kidney disease) stage 5, GFR less than 15 ml/min N18.5 Anemia in stage 5 chronic kidney disease, not on chronic dialysis N18.5; D63.1 Chronic kidney disease stage: stage 5, not on chronic dialysis Acute exacerbation of chronic obstructive pulmonary disease J44.1 HTN (hypertension) I10 Secondary hyperparathyroidism N25.81
[2023-10-25 14:13] VITALS: BP 124/68; PULSE 101; O2SAT 92; BMI 40.6
== END 2023-10-25 14:27 | disposition home or self-care (01) ==
PROVIDERS: PCP Internal Medicine; Visit Provider Internal Medicine Hypertension Specialist
DX: I12.0 Hypertensive chronic kidney disease with stage 5 chronic kidney disease or end stage renal disease (principal); N18.5 Chronic kidney disease, stage 5; D63.1 Anemia in chronic kidney disease; J44.1 Chronic obstructive pulmonary disease with (acute) exacerbation; N25.81 Secondary hyperparathyroidism of renal origin
CPT/HCPCS: 99214

== ENCOUNTER → 2023-10-25 14:11 | Outpatient (BNVA) | payer MEDICARE, MEDICAID, SELFPAY | PROVIDERS: PCP Internal Medicine; Visit Provider Internal Medicine Hypertension Specialist | DX: J44.1 Chronic obstructive pulmonary disease with (acute) exacerbation (principal); J96.10 Chronic respiratory failure, unspecified whether with hypoxia or hypercapnia; N18.5 Chronic kidney disease, stage 5; D63.1 Anemia in chronic kidney disease; Z99.81 Dependence on supplemental oxygen | CPT/HCPCS: 99212 ==

== ENCOUNTER 2023-10-26 12:15 | Outpatient (REF) | payer MEDICARE, MEDICAID, SELFPAY ==
[2023-10-26 16:56] LABS: Anion Gap 19 (12-20); Blood Urea Nitrogen 42 mg/dL (9-16); Calcium 9.9 mg/dL (8.4-10.2); Carbon Dioxide 20 mmol/L (22-29); Chloride 112 mmol/L (96-108); Estimated Glomerular Filt Rate 13; Glucose Random 81 mg/dL (60-115); Potassium 5.4 mmol/L (3.3-5.1); Sodium 146 mmol/L (135-145)
== END 2023-10-26 12:16 | disposition home or self-care (01) ==
LOC: HO.HMGCLDS 12:15
PROVIDERS: PCP Internal Medicine; Visit Provider Internal Medicine Hypertension Specialist
DX: N18.4 Chronic kidney disease, stage 4 (severe) (principal)
CPT/HCPCS: 36415; 80048

== ENCOUNTER 2023-11-02 12:14 | Outpatient (REF) | payer MEDICARE, MEDICAID, SELFPAY ==
[2023-11-02 17:58] LABS: Anion Gap 11 (12-20); Blood Urea Nitrogen 44 mg/dL (9-16); Calcium 9.8 mg/dL (8.4-10.2); Carbon Dioxide 29 mmol/L (22-29); Chloride 106 mmol/L (96-108); Estimated Glomerular Filt Rate 13; Glucose Random 108 mg/dL (60-115); Potassium 4.6 mmol/L (3.3-5.1); Sodium 141 mmol/L (135-145)
== END 2023-11-02 12:15 | disposition home or self-care (01) ==
LOC: HO.HMGCLDS 12:14
PROVIDERS: PCP Internal Medicine; Visit Provider Internal Medicine Hypertension Specialist
DX: N18.4 Chronic kidney disease, stage 4 (severe) (principal)
CPT/HCPCS: 36415; 80048

== ENCOUNTER 2023-11-25 13:30 | Outpatient (REF) | payer MEDICARE, MEDICAID, SELFPAY ==
[2023-11-25 16:25] LABS: MANUAL DIFF FLAG NO
[2023-11-25 16:31] LABS: Basophils Absolute Auto 0.1 X10*3/uL (0.0-0.2); Basophils Percent Auto 0.6 % (0-2); Hematocrit 32.5 % (37.0-47.0); Hemoglobin 9.6 g/dl (12.0-16.0); Imm Gran Abs Auto 0.03 X10*3/uL (0.00-0.03); Imm Gran Pct Auto 0.3 % (0.0-0.4); Lymphocytes Absolute Auto 1.4 X10*3/uL (1.2-4.9); Lymphocytes Percent Auto 15.9 % (20-40); Mean Corpuscular HGB Conc 29.5 g/dl (31.0-35.0); Mean Corpuscular Hemoglobin 28.7 pg (27.0-33.0); Mean Platelet Volume 10.1 fL (9.4-12.3); Monocytes Absolute Auto 1.1 X10*3/uL (0.1-1.2); Monocytes Percent Auto 11.8 % (2-11); Neutrophils Absolute Auto 6.5 x10*3/uL (2.0-8.3); Neutrophils Percent Auto 71.4 % (45-73); Platelet Count 268 X10*3/uL (160-400); Red Blood Count 3.35 X10*6/uL (4.20-5.50); Red Cell Distribution Width 12.7 % (11.0-16.0); White Blood Count 9.1 X10*3/uL (4.8-10.8)
[2023-11-25 16:45] LABS: Anion Gap 15 (12-20); Blood Urea Nitrogen 52 mg/dL (9-16); Calcium 9.9 mg/dL (8.4-10.2); Carbon Dioxide 26 mmol/L (22-29); Chloride 106 mmol/L (96-108); Estimated Glomerular Filt Rate 11; Glucose Random 113 mg/dL (60-115); Potassium 4.6 mmol/L (3.3-5.1); Sodium 142 mmol/L (135-145)
== END 2023-11-25 13:31 | disposition home or self-care (01) ==
LOC: HO.HMGCLDS 13:30
PROVIDERS: PCP Internal Medicine; Visit Provider Internal Medicine Hypertension Specialist
DX: N18.4 Chronic kidney disease, stage 4 (severe) (principal)
CPT/HCPCS: 36415; 80048; 85025

== ENCOUNTER 2023-11-30 14:10 | Outpatient (AMB) | payer MEDICARE, MEDICAID, SELFPAY ==
--- NOTE | 2023-11-30 14:25 | MHC.OFFVIS ---
Vital Signs 11/30/23 14:26 Height 5 ft 1 in BMI Reason not done Patient refused/unable BP 118/62 Blood Pressure Location Lt brachial Position Sitting Pulse 81 Pulse Source Pulse Oximeter Pulse Oximetry (%) 95 Oxygen Delivery Method Nasal Cannula Oxygen Flow Rate 2 Intake Visit Reasons: COPD Intake Note: pt is here for follow up and states she is okay, and she would like to talk about prednisone Interface Developer Required: No Allergies ciprofloxacin [From Cipro] Allergy (Severe, Verified 11/30/23 14:56) HIVES/SWELLING, THROAT CLOSES shellfish derived [SHELLFISH DERIVED] Allergy (Intermediate, Verified 11/30/23 14:56) Vomiting NSAIDS (Non-Steroidal Anti-Inflamma Adverse Reaction (Severe, Verified 11/30/23 14:56) Avoid due to kidney disease Medication List - Last Reconciled 11/30/23 by Mayte Cochran MD acetaminophen 650 mg PO Q6H PRN aspirin 81 mg PO DAILY azithromycin 250 mg PO 3XW 30 days Breo Ellipta 100-25 mcg/dose (fluticasone furoate-vilanterol) 1 ea PO DAILY 90 days NS calcitriol 1 mcg (2 x 0.5 mcg) PO DAILY carvedilol 3.125 mg PO BID fluticasone propionate 50 mcg/actuation 1 spray intranasal DAILY gabapentin 100 mg PO .prn PRN guaifenesin ER (Mucinex) 600 mg PO BID PRN hydroxyzine pamoate 100 mg PO BEDTIME PRN ipratropium-albuterol 0.5 mg-3 mg(2.5 mg base)/3 mL 3 mL inhalation Q4-6H PRN lorazepam 1 mg PO BID PRN methadone 70 mg PO DAILY prednisone 5 mg PO DAILY 30 days sodium zirconium cyclosilicate (Lokelma) 10 grams PO DAILY torsemide 20 mg PO BID 30 days Do you need a note to return to daycare/school/sports/work: No HPI HPI COPD: Details: IMTIAZ is 63 years old female, with advanced chronic obstructive pulmonary disease and chronic respiratory failure, with history of recurrent exacerbation. Has marked impairment of her locomotion and stays mostly in the wheelchair. She is grossly obese because of longstanding steroids usage. Past history of opioids dependence and currently on methadone. She comes after 2 months for. Her routine follow-up Her condition has been as stable as expected. She stays on O2 2 L/minute 24 hours a day. Denies any excessive daytime sleepiness. On one hand she feels that she needs prednisone 5 mg ,on a daily basis and on the other hand she questions about the side effects of taking it every day. Luckily she has had no acute infection. [facility] Medical History Bronchitis CKD (chronic kidney disease) stage 4, GFR 15-29 ml/min Morbid obesity COPD (chronic obstructive pulmonary disease) CKD (chronic kidney disease) stage 5, GFR less than 15 ml/min Polysubstance abuse JOAN (acute kidney injury) Respiratory failure with hypoxia and hypercapnia Acute exacerbation of chronic obstructive pulmonary disease Tremor of both hands Ambulates with cane Seasonal allergies Herpes zoster Post covid-19 condition, unspecified Osteopenia (~2017) Obesity Respiratory failure COVID-19 (~03/2021) Osteoarthritis of ankles, bilateral Olecranon bursitis of left elbow Tubulovillous adenoma of large intestine (~2020) Hx of cardiac arrest (~2015) O2 dependent Methadone maintenance therapy patient History of claustrophobia History of seizure Anxiety and depression HTN (hypertension) Multiple fractures of ribs Anemia in chronic kidney disease Vitamin D deficiency Family history of colon cancer Dyslipidemia Restrictive lung disease Lung cancer (~2019) LEO (obstructive sleep apnea) Surgical History Hx of tracheostomy History of esophagogastroduodenoscopy (EGD) (~2021) History of removal of ureteral stent (~2013) History of lung biopsy (~2019) History of colonoscopy (~2020) Umbilical hernia History of laparoscopy (~2012) History of hand surgery History of tubal ligation Family History Father Diabetes mellitus Mother Depression Mental health disorder Maternal Grandfather Colon cancer Sister No problems noted. Son No problems noted. Daughter No problems noted. Daughter No problems noted. Social History Household Members: Unknown / Unable to assess Housing: House Housing Other:: mobile home Are you a primary hospice spiritual care coordinator to a significant other at home: No Do you presently have visiting nurse or other home services: No Unable to assess alcohol history related to: Unable to respond Alcohol intake: never Comment: restraints Patient Tobacco Use Status: Former Tobacco user Tobacco use type: Cigarette Years Smoked: 25 yrs e-Cigarette/Vaping Use: Never Used Substance Use Type: Heroin Advance Directives Date on File: 03/21/21 service: No Current occupational status: unemployed and disabled Cognitive needs: No Hearing needs: No Vision needs: No Review of Systems Const All systems reviewed & are unremarkable except as noted in HPI and below Eyes Reports no additional complaints ENT Reports no additional complaints Card Denies chest pain, Denies irregular heart rhythm and Denies leg edema Resp Reports as per HPI and Reports other (RIGHT-SIDED RIBCAGE PAIN IS NEW DUE TO THE FALL AT HOME) GI Denies no additional complaints Denies no additional complaints Musc Reports abnormal gait (IMPAIRED LOCOMOTION, WALKS SLOW, WITH MINIMAL SUPPORT) and Reports back pain Skin/Breast Reports system reviewed and no additional complaints, except as documented Neuro Reports abnormal gait (IMPAIRED LOCOMOTION, WALKS SLOW, WITH MINIMAL SUPPORT) Psych Reports no additional complaints Physical Exam Vital Signs: Last Vital Signs Pulse 81 11/30/23 14:26 BP 118/62 11/30/23 14:26 Pulse Ox 95 11/30/23 14:26 Oxygen Delivery Method Nasal Cannula 11/30/23 14:26 Oxygen Flow Rate 2 11/30/23 14:26 Const General: comfortable, no acute distress, alert, awake and other (WALKS SLOWLY, WITH THE HELP OF A CANE.) Orientation/consciousness: patient oriented x3 HEENT Head: Yes normal to inspection General nose exam: No nasal polyps present and No nasal discharge present Face and sinus: Yes sinuses nontender Mouth: oropharynx normal Teeth and gingiva: other (THROAT IS CLEAR NO THRUSH AND NO EXTRA MUCUS NOTED) Throat: Yes posterior oropharynx normal Eyes General: appearance normal, both eyes and all related structures Neck Neck: Yes normal visual inspection, Yes no lymphadenopathy, Yes trachea midline and Yes no JVD Thyroid: Thyroid normal Chest Chest palpation & inspection: normal inspection of the chest, normal palpation of entire chest wall and no tenderness Resp Other: PERCUSSION NOTE IS RESONANT, BREATH SOUNDS ARE VERY DISTANT BUT EQUAL ON BOTH SIDES. NO WHEEZES OR RHONCHI ARE HEARD TODAY. Cardio Palpation: PMI not normal (PMI IS NOT PALPABLE.) and other Rate: regular rate Rhythm: regular rhythm Heart sounds: no gallops and no murmurs GI Palpation (GI): Soft to palpation, nontender, No hepatosplenomegaly present, no masses and Other GI palpation findings present (ABDOMEN IS OBESE AND PROTUBERANT) Auscultation: normal bowel sounds Back/Spine/Pelvis Thoracic/Lumbar Spine: thoracic and lumbar spine normal to inspection and thoraco-lumbar ROM limited Skin General skin exam: no rashes or lesions noted Neuro General: patient oriented x3, No gait normal (GAIT IS SLOW AND SLIGHTLY UNSTABLE PATIENT NEEDS A CANE TO WALK) and no focal motor deficits Cranial nerves: Yes CN's II-XII intact bilaterally Extrem General: Yes normal to inspection, Yes no calf tenderness and Yes edema (CHRONIC STASIS EDEMA OF THE LEGS) Psych Appearance: grossly normal and well kempt Speech and movement: Normal speech and movement present Assessment & Plan Assessment & Plan (1) COPD (chronic obstructive pulmonary disease): Comment: PATIENT HAS LONG-STANDING HISTORY OF CHRONIC OBSTRUCTIVE PULMONARY DISEASE PRIMARILY DUE TO HER LONG TIME SMOKING, SHE QUIT EARLIER IN 2022. GETS FREQUENT ACUTE EXACERBATIONS,. NOW HAS HAD NO ACUTE EXACERBATION IN THE LAST FEW MONTHS . SHE CLAIMS THAT IT IS PREDNISONE WHICH HAS MADE HER BETTER, AND WOULD LIKE TO CONTINUE ON A SMALL DOES FOR MAINTENANCE Code(s): J44.9 - Chronic obstructive pulmonary disease, unspecified Category: Medical Plan: PREDNISONE 5 MG ON ALTERNATE DAYS , IF SHE FEELS GOOD SHE MAY TRY TO CUT IT DOWN TO TWICE A WEEK. AZITHROMYCIN 250 MG 3 TIMES A WEEK DUONEB [facility] T.I.D. AND IF NEEDED SHE CAN USE 4TH TIME P.R.N. (2) Morbid obesity: Comment: SHE IS CHRONICALLY OBESE MAINLY DUE TO LACK OF PHYSICAL ACTIVITY. CURRENT BMI 39.2 DENIES SYMPTOMS OF SLEEP APNEA Code(s): E66.01 - Morbid (severe) obesity due to excess calories Category: Medical Plan: ADVISED TO WATCH DIET BUT IT IS NOT PRACTICAL FOR HER TO LOSE WEIGHT (3) Respiratory failure with hypoxia and hypercapnia: Comment: PATIENT HAS CHRONIC HYPOXEMIA WITH HYPOXEMIA/ HYPERCAPNIA. LOST ABG ON 12/14/2022 PH 7.21 PCO2 69 PO2 79 LOST VENOUS BLOOD GAS: PH 7.44 PCO2 44 PO2 66 ON 08/18 PH 7.46, PCO2= 37 , PO2 55 % ( ON O2 ) IMPROVED Code(s): J96.91 - Respiratory failure, unspecified with hypoxia; J96.92 - Respiratory failure, unspecified with hypercapnia Category: Medical Plan: ADVISED TO CONTINUE O2 2 L/MINUTE 24 HOURS A DAY Coding Level of Care Code Est Pt Level 3 (74688) Diagnoses COPD (chronic obstructive pulmonary disease) J44.9 Morbid obesity E66.01 Respiratory failure with hypoxia and hypercapnia J96.91; J96.92
[2023-11-30 14:26] VITALS: BP 118/62; PULSE 81; O2SAT 95
== END 2023-11-30 14:55 | disposition home or self-care (01) ==
PROVIDERS: PCP Internal Medicine; Visit Provider Internal Medicine
DX: J44.9 Chronic obstructive pulmonary disease, unspecified (principal); E66.01 Morbid (severe) obesity due to excess calories; J96.91 Respiratory failure, unspecified with hypoxia; J96.92 Respiratory failure, unspecified with hypercapnia
CPT/HCPCS: 99213

== ENCOUNTER → 2023-11-30 14:10 | Outpatient (BNVA) | payer MEDICARE, MEDICAID, SELFPAY | PROVIDERS: PCP Internal Medicine; Visit Provider Internal Medicine | DX: J44.1 Chronic obstructive pulmonary disease with (acute) exacerbation (principal); J96.91 Respiratory failure, unspecified with hypoxia; J96.92 Respiratory failure, unspecified with hypercapnia; E66.1 Drug-induced obesity; T38.0X5A Adverse effect of glucocorticoids and synthetic analogues, initial encounter; Z79.891 Long term (current) use of opiate analgesic; Z79.899 Other long term (current) drug therapy; Z99.81 Dependence on supplemental oxygen | CPT/HCPCS: 99212 ==

== ENCOUNTER 2023-12-02 16:15 | Outpatient (AMB) | payer MEDICARE, MEDICAID, SELFPAY ==
[2023-12-02 16:15] VITALS: BP 120/70; PULSE 96; O2SAT 98; BMI 39.3
--- NOTE | 2023-12-02 16:15 | HO.NEPHOV ---
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 Required: No Accompanied by: Self / Same As Patient Allergies ciprofloxacin [From Cipro] Allergy (Severe, Verified 12/02/23 16:18) HIVES/SWELLING, THROAT CLOSES shellfish derived [SHELLFISH DERIVED] Allergy (Intermediate, Verified 12/02/23 16:18) Vomiting NSAIDS (Non-Steroidal Anti-Inflamma Adverse Reaction (Severe, Verified 12/02/23 16:18) Avoid due to kidney disease Medication List - Last Reconciled 12/02/23 by Fermin Muhammad MD acetaminophen 650 mg PO Q6H PRN aspirin 81 mg PO DAILY azithromycin 250 mg PO 3XW 30 days Breo Ellipta 100-25 mcg/dose (fluticasone furoate-vilanterol) 1 ea PO DAILY 90 days NS calcitriol 1 mcg (2 x 0.5 mcg) PO DAILY carvedilol 3.125 mg PO BID fluticasone propionate 50 mcg/actuation 1 spray intranasal DAILY gabapentin 100 mg PO .prn PRN guaifenesin ER (Mucinex) 600 mg PO BID PRN hydroxyzine pamoate 100 mg PO BEDTIME PRN ipratropium-albuterol 0.5 mg-3 mg(2.5 mg base)/3 mL 3 mL inhalation Q4-6H PRN lorazepam 1 mg PO BID PRN methadone 70 mg PO DAILY prednisone 5 mg PO DAILY 30 days sodium zirconium cyclosilicate (Lokelma) 10 grams PO DAILY torsemide 20 mg PO BID 30 days HPI Comments Details: 62 years old female with advanced chronic obstructive pulmonary disease and chronic respiratory failure, on oxygen, and treated for acute exacerbation of COPD/respiratory failure, was able to normalize blood gases with aggressive treatment. She has advanced CKD approaching end stage renal disease. She has significant fluid overload requiring high-dose of diuretics. She is here for further follow-up. Recently admitted for respiratory illness and was treated with a course of prednisone. During hospitalization diltiazem has been discontinued but she is still taking it. 02/22/23: Doing better;No new issues 05/25/2023. Overall doing well. Recently missed Neurology appointment due to logistical issues. Respiratory status remains unchanged. Leg edema remains stable 12/02/23 Still with dyspnea Weight is better Was on prednisone with some improvement in breathing [facility] Medical History Bronchitis CKD (chronic kidney disease) stage 4, GFR 15-29 ml/min Morbid obesity COPD (chronic obstructive pulmonary disease) CKD (chronic kidney disease) stage 5, GFR less than 15 ml/min Polysubstance abuse JOAN (acute kidney injury) Respiratory failure with hypoxia and hypercapnia Acute exacerbation of chronic obstructive pulmonary disease Tremor of both hands Ambulates with cane Seasonal allergies Herpes zoster Post covid-19 condition, unspecified Osteopenia (~2017) Obesity Respiratory failure COVID-19 (~03/2021) Osteoarthritis of ankles, bilateral Olecranon bursitis of left elbow Tubulovillous adenoma of large intestine (~2020) Hx of cardiac arrest (~2015) O2 dependent Methadone maintenance therapy patient History of claustrophobia History of seizure Anxiety and depression HTN (hypertension) Multiple fractures of ribs Anemia in chronic kidney disease Vitamin D deficiency Family history of colon cancer Dyslipidemia Restrictive lung disease Lung cancer (~2019) LEO (obstructive sleep apnea) Surgical History Hx of tracheostomy History of esophagogastroduodenoscopy (EGD) (~2021) History of removal of ureteral stent (~2013) History of lung biopsy (~2019) History of colonoscopy (~2020) Umbilical hernia History of laparoscopy (~2012) History of hand surgery History of tubal ligation Family History Father Diabetes mellitus Mother Depression Mental health disorder Maternal Grandfather Colon cancer Sister No problems noted. Son No problems noted. Daughter No problems noted. Daughter No problems noted. Social History Household Members: Unknown / Unable to assess Housing: House Housing Other:: mobile home Are you a primary healthcare translator to a significant other at home: No Do you presently have visiting nurse or other home services: No Unable to assess alcohol history related to: Unable to respond Alcohol intake: never Comment: restraints Patient Tobacco Use Status: Former Tobacco user Tobacco use type: Cigarette Years Smoked: 25 yrs e-Cigarette/Vaping Use: Never Used Substance Use Type: Heroin Advance Directives Date on File: 03/21/21 service: No Current occupational status: unemployed and disabled Cognitive needs: No Hearing needs: No Vision needs: No Physical Exam Vital Signs: Last Vital Signs Pulse 96 12/02/23 16:15 Pulse Ox 98 12/02/23 16:15 Oxygen Delivery Method Room Air 12/02/23 16:15 BMI result Body Mass Index 39.3 Results Reviewed Nephrology Results: Hgb 9.6 g/dl (12.0-16.0) L 11/25/23 WBC 9.1 X10*3/uL (4.8-10.8) 11/25/23 Plt Count 268 X10*3/uL (160-400) 11/25/23 Sodium 142 mmol/L (135-145) 11/25/23 Potassium 4.6 mmol/L (3.3-5.1) 11/25/23 Chloride 106 mmol/L (96-108) 11/25/23 Carbon Dioxide 26 mmol/L (22-29) 11/25/23 BUN 52 mg/dL (9-16) H 11/25/23 Creatinine 4.24 mg/dL (0.5-1.4) H* 11/25/23 Calcium 9.9 mg/dL (8.4-10.2) 11/25/23 Assessment & Plan Assessment & Plan (1) CKD (chronic kidney disease) stage 5, GFR less than 15 ml/min: Code(s): N18.5 - Chronic kidney disease, stage 5 Category: Medical Plan: Advanced CKD approaching end stage renal disease. No overt signs or symptoms of uremia. Goal is to slow the portion renal disease. We will continue to watch renal function closely and initiate dialysis when appropriate. (2) Anemia in chronic kidney disease: Code(s): N18.9 - Chronic kidney disease, unspecified; D63.1 - Anemia in chronic kidney disease Category: Medical Qualifiers: Chronic kidney disease stage: stage 5, not on chronic dialysis Qualified Code(s): N18.5 - Chronic kidney disease, stage 5; D63.1 - Anemia in chronic kidney disease Plan: No absolute indication to start erythropoietin yet. Hct has improved I will follow the hemoglobin along with iron stores and start on epogen as needed. (3) Acute exacerbation of chronic obstructive pulmonary disease: Code(s): J44.1 - Chronic obstructive pulmonary disease with (acute) exacerbation Category: Medical Plan: Management per PCP Continue DuoNeb updrafts q.i.d. and Breo-100 1 inhalation daily. Prednisone 20 mg b.i.d. for 7 days. Mucinex 600 mg b.i.d. also prescribed. (4) HTN (hypertension): Code(s): I10 - Essential (primary) hypertension Category: Medical Plan: Blood pressure is better controlled No need for CArdizem ( was stopepd in Jan 2023) Continue with Coreg 3.125 b.i.d.. No changes were made to her diabetic regimen. (5) Secondary hyperparathyroidism: Code(s): N25.81 - Secondary hyperparathyroidism of renal origin Category: Medical Plan: PTH is more than 1600. calcitriol 1 mcg daily Watch PTH and Ca (6) CKD (chronic kidney disease) stage 4, GFR 15-29 ml/min: Comment: (Followed by Dr. Muhammad - [facility]) Code(s): N18.4 - Chronic kidney disease, stage 4 (severe) Category: Medical Plan as above Orders: Orders Parathyroid Hormone Intact 2 Months N18.4 - Chronic kidney disease, stage 4 (severe), N25.81 - Secondary hyperparathyroidism of renal origin Complete Blood Count no Diff 2 Months N18.4 - Chronic kidney disease, stage 4 (severe), N25.81 - Secondary hyperparathyroidism of renal origin Basic Metabolic Panel 2 Months N18.4 - Chronic kidney disease, stage 4 (severe), N25.81 - Secondary hyperparathyroidism of renal origin Coding Level of Care Code Est Pt Level 4 (53946) Diagnoses CKD (chronic kidney disease) stage 5, GFR less than 15 ml/min N18.5 Anemia in stage 5 chronic kidney disease, not on chronic dialysis N18.5; D63.1 Chronic kidney disease stage: stage 5, not on chronic dialysis Acute exacerbation of chronic obstructive pulmonary disease J44.1 HTN (hypertension) I10 Secondary hyperparathyroidism N25.81 CKD (chronic kidney disease) stage 4, GFR 15-29 ml/min N18.4
== END 2023-12-02 16:34 | disposition home or self-care (01) ==
PROVIDERS: PCP Internal Medicine; Visit Provider Internal Medicine Hypertension Specialist
DX: I12.0 Hypertensive chronic kidney disease with stage 5 chronic kidney disease or end stage renal disease (principal); N18.5 Chronic kidney disease, stage 5; D63.1 Anemia in chronic kidney disease; J44.1 Chronic obstructive pulmonary disease with (acute) exacerbation; N25.81 Secondary hyperparathyroidism of renal origin
CPT/HCPCS: 99214

== ENCOUNTER → 2023-12-02 16:15 | Outpatient (BNVA) | payer MEDICARE, MEDICAID, SELFPAY | PROVIDERS: PCP Internal Medicine; Visit Provider Internal Medicine Hypertension Specialist | DX: I12.0 Hypertensive chronic kidney disease with stage 5 chronic kidney disease or end stage renal disease (principal); N18.5 Chronic kidney disease, stage 5; J44.1 Chronic obstructive pulmonary disease with (acute) exacerbation; J96.10 Chronic respiratory failure, unspecified whether with hypoxia or hypercapnia; D63.1 Anemia in chronic kidney disease; N25.81 Secondary hyperparathyroidism of renal origin; Z99.81 Dependence on supplemental oxygen | CPT/HCPCS: 99212 ==

== ENCOUNTER 2023-12-22 10:34 | Outpatient (AMB) | payer MEDICARE, MEDICAID, SELFPAY ==
--- NOTE | 2023-12-22 10:57 | A.OFFPC_ITS ---
Vital Signs 12/22/23 10:59 Height 5 ft 1 in Weight 210 lb BMI 39.7 Intake Visit Reasons: HDF Allergies ciprofloxacin [From Cipro] Allergy (Severe, Verified 12/02/23 16:18) HIVES/SWELLING, THROAT CLOSES shellfish derived [SHELLFISH DERIVED] Allergy (Intermediate, Verified 12/02/23 16:18) Vomiting NSAIDS (Non-Steroidal Anti-Inflamma Adverse Reaction (Severe, Verified 12/02/23 16:18) Avoid due to kidney disease Tobacco use date assessed: 12/24/22 Dental Screening Dental Screen Date: 12/24/22 [facility] Medical History Bronchitis CKD (chronic kidney disease) stage 4, GFR 15-29 ml/min Morbid obesity COPD (chronic obstructive pulmonary disease) CKD (chronic kidney disease) stage 5, GFR less than 15 ml/min Polysubstance abuse JOAN (acute kidney injury) Respiratory failure with hypoxia and hypercapnia Acute exacerbation of chronic obstructive pulmonary disease Tremor of both hands Ambulates with cane Seasonal allergies Herpes zoster Post covid-19 condition, unspecified Osteopenia (~2017) Obesity Respiratory failure COVID-19 (~03/2021) Osteoarthritis of ankles, bilateral Olecranon bursitis of left elbow Tubulovillous adenoma of large intestine (~2020) Hx of cardiac arrest (~2015) O2 dependent Methadone maintenance therapy patient History of claustrophobia History of seizure Anxiety and depression HTN (hypertension) Multiple fractures of ribs Anemia in chronic kidney disease Vitamin D deficiency Family history of colon cancer Dyslipidemia Restrictive lung disease Lung cancer (~2019) LEO (obstructive sleep apnea) Surgical History Hx of tracheostomy History of esophagogastroduodenoscopy (EGD) (~2021) History of removal of ureteral stent (~2013) History of lung biopsy (~2019) History of colonoscopy (~2020) Umbilical hernia History of laparoscopy (~2012) History of hand surgery History of tubal ligation Family History Father Diabetes mellitus Mother Depression Mental health disorder Maternal Grandfather Colon cancer Sister No problems noted. Son No problems noted. Daughter No problems noted. Daughter No problems noted. Social History Household Members: Unknown / Unable to assess Housing: House Housing Other:: mobile home Are you a primary resident care coordinator to a significant other at home: No Do you presently have visiting nurse or other home services: No Unable to assess alcohol history related to: Unable to respond Alcohol intake: never Comment: restraints Patient Tobacco Use Status: Former Tobacco user Tobacco use type: Cigarette Years Smoked: 25 yrs e-Cigarette/Vaping Use: Never Used Substance Use Type: Heroin Advance Directives Date on File: 03/21/21 service: No Current occupational status: unemployed and disabled Cognitive needs: No Hearing needs: No Vision needs: No Questionnaire PHQ-9 Over the last 2 weeks, how often have you been bothered by any of the following problems? 1. Little interest or pleasure in doing things: not at all 2. Feeling down, depressed, or hopeless: not at all 3. Trouble falling or staying asleep, or sleeping too much: several days 4. Feeling tired or having little energy: several days 5. Poor appetite or overeating: not at all 6. Feeling bad about yourself - or that you are a failure or have let yourself or your family down: not at all 7. Trouble concentrating on things, such as reading the newspaper or watching television: not at all 8. Moving or speaking so slowly that other people could have noticed. Or the opposite - being so fidgety or restless that you have been moving around a lot more than usual: not at all 9. Thoughts that you would be better off or of hurting yourself in some way: not at all Total score: 2 Source: Developed by Drs. Marco Ramirez, Elisa Kennedy, Warren Galvan and colleagues, with an educational cheo from [employer]. Thrive Questionnaire Date Thrive assessed: 12/13/22 TONIE-7 AMB Questionnaire TONIE-7 Date TONIE - 7 assessed: 03/24/22 Source: Developed by Drs. Marco Ramirez, Elisa Kennedy, Warren Galvan and colleagues, with an educational cheo from [employer]. Physical exam (Primary Care) Tobacco/Smoking Status: Tobacco use Status Tobacco use date assessed 12/24/22 02/03/23 15:01 Patient Tobacco Use Status Former Tobacco user 02/03/23 15:01 Tobacco use type Cigarette 02/03/23 15:01 e-Cigarette/Vaping Use Never Used 02/03/23 15:01 Thrive Assessment: Date of Thrive Assessment Date Thrive assessed 12/13/22 02/03/23 15:01 Coding
[2023-12-22 10:59] VITALS: BP 128/82; PULSE 91; O2SAT 94; BMI 39.7
--- NOTE | 2023-12-22 11:04 | A.OFFVIS_ITS ---
Intake Vital Signs 12/22/23 10:59 Height 5 ft 1 in Weight 210 lb BMI 39.7 BP 128/82 Blood Pressure Location Rt brachial Position Sitting Pulse 91 Pulse Source Pulse Oximeter Pulse Oximetry (%) 94 Oxygen Delivery Method Nasal Cannula Intake Visit Reasons: here for her subsequent annual wellness visit Intake Note: Pt is here today for her SWV Allergies ciprofloxacin [From Cipro] Allergy (Severe, Verified 12/22/23 11:05) HIVES/SWELLING, THROAT CLOSES shellfish derived [SHELLFISH DERIVED] Allergy (Intermediate, Verified 12/22/23 11:05) Vomiting NSAIDS (Non-Steroidal Anti-Inflamma Adverse Reaction (Severe, Verified 12/22/23 11:05) Avoid due to kidney disease Medication List - Last Reconciled 12/22/23 by Valerie Castano MD acetaminophen 650 mg PO Q6H PRN aspirin 81 mg PO DAILY azithromycin 250 mg PO 3XW 30 days Breo Ellipta 100-25 mcg/dose (fluticasone furoate-vilanterol) 1 ea PO DAILY 90 days NS calcitriol 1 mcg (2 x 0.5 mcg) PO DAILY carvedilol 3.125 mg PO BID fluticasone propionate 50 mcg/actuation 1 spray intranasal DAILY gabapentin 100 mg PO .prn PRN guaifenesin ER (Mucinex) 600 mg PO BID PRN hydroxyzine pamoate 100 mg PO BEDTIME PRN ipratropium-albuterol 0.5 mg-3 mg(2.5 mg base)/3 mL 3 mL inhalation Q4-6H PRN lorazepam 1 mg PO BID PRN methadone 70 mg PO DAILY prednisone 5 mg PO DAILY 30 days sodium zirconium cyclosilicate (Lokelma) 10 grams PO DAILY torsemide 20 mg PO BID 30 days HPI HPI Comments History of Present Illness Details SWV ? 63 year-old lady here today for her subsequent annual wellness visit. She has COPD and restrictive lung disease, on O2 supplement, anxiety/ depression, hx of lung cancer, has anemia of chronic disease, obstructive sleep apnea currently stable on present treatment. She is up-to-date with her cervical cancer screening, last Pap done August 27, 2020 with negative findings, last colonoscopy was done 10/09/[address] Queen with removal of hyperplastic and tubulovillous adenoma, and had Cologuard test done 10/26/2022, as patient refuses to have another colonoscopy procedure, which came back with negative findings She is due for screening mammogram and bone density scan, latter done in 2018 which showed presence of osteopenia in both lumbar spine and left femoral neck and left femur. She is up-to-date with her Pneumovax 23, shingles vaccine , COVID, flu shot, and Tdap She has a healthcare proxy in place but no MOLST . ? Medical / Social History Reviewed? Past Medical History ?Yes . ? [place] of Care / Care Team list updated ?Yes . ? Surgical/Hospitalization History ?Yes . ? Current Medications (including OTC and supplements) ?Yes . ? Family History ?Yes . ? Tobacco Control form ?Yes . ? AUDIT-C (Alcohol use) form ?Yes . ? Illicit drug use in Social History ?Yes . ? Current diagnosis of depression? ?No ? Appropriate PHQ2/PHQ9 completed ?Yes . ? Data entered by ?Display Maker and reviewed by provider ? Fall Risk ? Fall History? Have you had any falls with injury in the past year? ?No . ? Have you had two or more falls in the past year? ?No . ? Fall Risk Assessment: ?No falls in the past year . ? HRA filled out by the patient, reviewed by Provider and scanned. ? SWV ? Balance? Romberg ?Yes . ? Tandem walk ?unable ? Walk and Turn ?Yes . ? Rise from sit to stand ?Yes . ?Vision? Corrective lens - none ? Vision screen ? Up-to-date, goes to [facility] ?Hearing? Whisper test ?pass . ?Written Plan?Completed. See Patient Documents.? PFS Medical History (Updated 12/26/23 @ 20:17 by Valerie Castano MD) History of lung cancer Hx of bronchitis CKD (chronic kidney disease) stage 4, GFR 15-29 ml/min Morbid obesity COPD (chronic obstructive pulmonary disease) Polysubstance abuse Respiratory failure with hypoxia and hypercapnia Ambulates with cane Seasonal allergies Herpes zoster Osteopenia (~2017) Respiratory failure COVID-19 (~03/2021) Osteoarthritis of ankles, bilateral Olecranon bursitis of left elbow Tubulovillous adenoma of large intestine (~2020) Hx of cardiac arrest (~2015) O2 dependent Methadone maintenance therapy patient History of claustrophobia History of seizure Anxiety and depression HTN (hypertension) Multiple fractures of ribs Anemia in chronic kidney disease Vitamin D deficiency Family history of colon cancer Dyslipidemia Restrictive lung disease LEO (obstructive sleep apnea) Surgical History (Updated 12/26/23 @ 20:17 by Valerie Castano MD) Hx of tracheostomy History of esophagogastroduodenoscopy (EGD) (~2021) History of removal of ureteral stent (~2013) History of lung biopsy (~2019) History of colonoscopy (~2020) Umbilical hernia History of laparoscopy (~2012) History of hand surgery History of tubal ligation Family History Father Diabetes mellitus Mother Depression Mental health disorder Maternal Grandfather Colon cancer Sister No problems noted. Son No problems noted. Daughter No problems noted. Daughter No problems noted. Social History Household Members: Unknown / Unable to assess Housing: House Housing Other:: mobile home Are you a primary daytime caregiver to a significant other at home: No Do you presently have visiting nurse or other home services: No Unable to assess alcohol history related to: Unable to respond Alcohol intake: never Comment: restraints Patient Tobacco Use Status: Former Tobacco user Tobacco use type: Cigarette Years Smoked: 25 yrs e-Cigarette/Vaping Use: Never Used Substance Use Type: Heroin Advance Directives Date on File: 03/21/21 service: No Current occupational status: unemployed and disabled Cognitive needs: No Hearing needs: No Vision needs: No Questionnaire Medicare Wellness Checkup What gender do you identify with?: female During the past 4 weeks, how much have you been bothered by emotional problems such as feeling anxious, depressed, irritable, sad or downhearted, and blue?: moderately During the past 4 weeks, has your physical & emotional health limited your social activities with family, friends, neighbors, or groups?: not at all During the past 4 weeks, how much bodily pain have you generally had?: moderate pain During the past 4 weeks, was someone available to help you if you needed & wanted help?: yes, some During the past 4 weeks, what was the hardest physical activity you could do for at least 2 minutes?: light Can you get to places out of walking distance without help? (For eg., can you travel alone on buses, taxis or drive your car?): No Can you go shopping for groceries or clothes without someone's help?: No Can you prepare your own meals?: Yes Can you do your housework without help?: No Because of any health problems, do you need the help of another person with your personal care needs such as eating, bathing, dressing or getting around the house?: Yes Can you handle your own money without help?: Yes During the past 4 weeks, how would you rate your health in general?: fair During the past 4 weeks how have things been going for you?: good & bad parts about equal Are you having difficulties driving your car?: not applicable, I don't use a car Do you always fasten your seat belt when you are in a car?: yes, usually During past 4 weeks, have you been bothered by the following: never: Falling or dizzy when standing up, Sexual problems?, Trouble eating well?, Teeth or denture problems? and Problems using the telephone? and often: Tiredness or fatigue? Have you fallen 2 or more times in the past year?: No Are you afraid of falling?: Yes Are you a smoker?: no During the past 4 weeks, how many drinks of wine, beer, or other alcoholic beverages did you have?: no alcohol at all Do you exercise for about 20 minutes 3 or more times a week?: no, I usually do not exercise this much Have you been given information to help with the following?: yes: Keeping track of your medications? and no: Hazards in your house that might hurt you? How often do you have trouble taking medicines the way you have been told to take them?: I always take medicine as prescribed How confident are you that you can control & manage most of your health problems?: somewhat confident What is your race?: White Mini Mental State Exam (MMSE) Orientation What is the (year) (season) (date) (day) (month)?: year, season (all), date (12/22/23), day (wednesday) and month (december) Where are we (state) (county) (town or city) (hospital) (floor)?: state ([place]), [facility] ([place]), town or city ([place]) and hospital/clinic ([facility]) Score Score: 9 Activity of Daily Living Bathing - sponge bath, tub bath or shower: receives help in bathing only one body part (such as back or leg) Dressing - getting clothes from closets & drawers, including inner/outer garments & fasteners.: gets clothes & gets dressed without help, except for help tying shoes Toileting - going to the 'toilet room' for urine/bowel elimination & cleaning self/arranging clothes: goes to toilet room, cleans self, arranges clothes without help Transfer: moves in & out of bed and chair without help (may use support object) Continence: has occasional 'accidents' Feeding: feeds self without help Total Score: 0 Information obtained from: patient Using telephone: independent Traveling: dependent Shopping: dependent Preparing meals: dependent Housework: dependent Taking medicine: needs assistance Managing money: independent PHQ-9 Over the last 2 weeks, how often have you been bothered by any of the following problems? 1. Little interest or pleasure in doing things: not at all 2. Feeling down, depressed, or hopeless: not at all 3. Trouble falling or staying asleep, or sleeping too much: several days 4. Feeling tired or having little energy: several days 5. Poor appetite or overeating: not at all 6. Feeling bad about yourself - or that you are a failure or have let yourself or your family down: not at all 7. Trouble concentrating on things, such as reading the newspaper or watching television: not at all 8. Moving or speaking so slowly that other people could have noticed. Or the opposite - being so fidgety or restless that you have been moving around a lot more than usual: not at all 9. Thoughts that you would be better off or of hurting yourself in some way: not at all Total score: 2 Depression Screening Interpretation: Negative (Delphine Tom at [facility]) Depression Screening Done: Yes 47166 - PHQ-9 Billing: Yes Source: Developed by Drs. Marco Ramirez, Elisa Kennedy, Warren Galvan and colleagues, with an educational cheo from [employer]. Physical Exam Vital Signs: Last Vital Signs Pulse 91 12/22/23 10:59 BP 128/82 12/22/23 10:59 Pulse Ox 94 12/22/23 10:59 Oxygen Delivery Method Nasal Cannula 12/22/23 10:59 BMI result Body Mass Index 39.7 Assessment & Plan Assessment & Plan (1) Encounter for subsequent annual wellness visit (AWV) in Medicare patient: Code(s): Z00.00 - Encounter for general adult medical examination without abnormal findings Plan: Medical wellness checklist reviewed, discussed with patient and updated. Has an appointment already scheduled for her mammogram and ordered a bone density scan to be done together the same day. It with her screening colonoscopy and cervical cancer screening. (2) Osteopenia: Onset Date: ~2017 Comment: (Bone Dexa Femoral T-score -2.4 - 12/02/2017) Code(s): M85.80 - Other specified disorders of bone density and structure, unspecified site Plan: Repeat bone density scan ordered (3) Morbid obesity: Comment: SHE IS CHRONICALLY OBESE MAINLY DUE TO LACK OF PHYSICAL ACTIVITY. CURRENT BMI 39.2 DENIES SYMPTOMS OF SLEEP APNEA Code(s): E66.01 - Morbid (severe) obesity due to excess calories Plan: SHE IS CHRONICALLY OBESE MAINLY DUE TO LACK OF PHYSICAL ACTIVITY. (4) COPD (chronic obstructive pulmonary disease): Comment: PATIENT HAS LONG-STANDING HISTORY OF CHRONIC OBSTRUCTIVE PULMONARY DISEASE PRIMARILY DUE TO HER LONG TIME SMOKING, SHE QUIT EARLIER IN 2022. GETS FREQUENT ACUTE EXACERBATIONS,. NOW HAS HAD NO ACUTE EXACERBATION IN THE LAST FEW MONTHS . SHE CLAIMS THAT IT IS PREDNISONE WHICH HAS MADE HER BETTER, AND WOULD LIKE TO CONTINUE ON A SMALL DOES FOR MAINTENANCE Code(s): J44.9 - Chronic obstructive pulmonary disease, unspecified Plan: Currently on Breo Ellipta and has DuoNeb use as needed via nebulizer for episodes of bronchospasm and wheezing, followed by Dr. Cochran (5) CKD (chronic kidney disease) stage 4, GFR 15-29 ml/min: Comment: (Followed by Dr. Muhammad - [facility]) Code(s): N18.4 - Chronic kidney disease, stage 4 (severe) Plan: Followed by Dr. Muhammad (6) Secondary hyperparathyroidism: Code(s): N25.81 - Secondary hyperparathyroidism of renal origin Plan: Followed by Nephrology (7) Anxiety and depression: Comment: sees Psych , med prescriber is Pamela Lake Code(s): F41.9 - Anxiety disorder, unspecified; F32.9 - Major depressive disorder, single episode, unspecified Plan: Currently followed by Pamela Lake Orders: Orders Lipid Panel 12/22/23 Z13.220 - Encounter for screening for lipoid disorders XR DEXA axial skeleton 12/22/23 M85.80 - Other specified disorders of bone density and structure, unspecified site Quality Reporting (2019) Depression/Bipolar (159/160/161/177) PHQ-9: Total score: 2 Coding Level of Care Code Medicare Subsequent (G0439) Diagnoses Encounter for subsequent annual wellness visit (AWV) in Medicare patient Z00.00 Osteopenia M85.80 Morbid obesity E66.01 COPD (chronic obstructive pulmonary disease) J44.9 CKD (chronic kidney disease) stage 4, GFR 15-29 ml/min N18.4 Secondary hyperparathyroidism N25.81 Anxiety and depression F41.9; F32.9 Additional Codes PHQ-9 - 80645 - PHQ-9 Billing: Yes ([id number])
--- NOTE | 2023-12-22 11:05 | A.OFFVIS_ITS ---
Intake Vital Signs 12/22/23 10:59 12/22/23 11:05 Height 5 ft 1 in Weight 210 lb BMI 39.7 39.7 Intake Visit Reasons: SWV Allergies ciprofloxacin [From Cipro] Allergy (Severe, Verified 12/22/23 11:05) HIVES/SWELLING, THROAT CLOSES shellfish derived [SHELLFISH DERIVED] Allergy (Intermediate, Verified 12/22/23 11:05) Vomiting NSAIDS (Non-Steroidal Anti-Inflamma Adverse Reaction (Severe, Verified 12/22/23 11:05) Avoid due to kidney disease Medication List - Last Reconciled 12/22/23 by Valerie Castano MD acetaminophen 650 mg PO Q6H PRN aspirin 81 mg PO DAILY azithromycin 250 mg PO 3XW 30 days Breo Ellipta 100-25 mcg/dose (fluticasone furoate-vilanterol) 1 ea PO DAILY 90 days NS calcitriol 1 mcg (2 x 0.5 mcg) PO DAILY carvedilol 3.125 mg PO BID fluticasone propionate 50 mcg/actuation 1 spray intranasal DAILY gabapentin 100 mg PO .prn PRN guaifenesin ER (Mucinex) 600 mg PO BID PRN hydroxyzine pamoate 100 mg PO BEDTIME PRN ipratropium-albuterol 0.5 mg-3 mg(2.5 mg base)/3 mL 3 mL inhalation Q4-6H PRN lorazepam 1 mg PO BID PRN methadone 70 mg PO DAILY prednisone 5 mg PO DAILY 30 days sodium zirconium cyclosilicate (Lokelma) 10 grams PO DAILY torsemide 20 mg PO BID 30 days HPI SWV HPI Details SWV ? 63 year-old lady here today for her subsequent annual wellness visit. She has COPD and restrictive lung disease, on O2 supplement, anxiety/ depression, hx of lung cancer, has anemia of chronic disease, obstructive sleep apnea currently stable on present treatment. She is up-to-date with her cervical cancer screening, last Pap done August 27, 2020 with negative findings, last colonoscopy was done in 02/[address] Queen with removal of hyperplastic and tubulovillous adenoma, to have a repeat colonoscopy again in 1-2 years per GI. She is due for screening mammogram and bone density scan, latter done in 2018 which showed presence of osteopenia in both lumbar spine and left femoral neck and left femur. She is due for her annual flu shot up-to-date with her Pneumovax 23, and due for COVID booster. She has a healthcare proxy in place but no MOLST . ? Medical / Social History Reviewed? Past Medical History ?Yes . ? [place] of Care / Care Team list updated ?Yes . ? Surgical/Hospitalization History ?Yes . ? Current Medications (including OTC and supplements) ?Yes . ? Family History ?Yes . ? Tobacco Control form ?Yes . ? AUDIT-C (Alcohol use) form ?Yes . ? Illicit drug use in Social History ?Yes . ? Current diagnosis of depression? ?No ? Appropriate PHQ2/PHQ9 completed ?Yes . ? Data entered by ?O[employer] Well Service Operator Helper and reviewed by provider ? Fall Risk ? Fall History? Have you had any falls with injury in the past year? ?No . ? Have you had two or more falls in the past year? ?No . ? Fall Risk Assessment: ?No falls in the past year . ? HRA filled out by the patient, reviewed by Provider and scanned. ? SWV ? Balance? Romberg ?Yes . ? Tandem walk ?unable ? Walk and Turn ?Yes . ? Rise from sit to stand ?Yes . ?Vision? Corrective lens - none ? Vision screen ? Up-to-date, goes to [place] [facility] ?Hearing? Whisper test ?pass . ?Written Plan?Completed. See Patient Documents.? [facility], [facility] Medical History Bronchitis CKD (chronic kidney disease) stage 4, GFR 15-29 ml/min Morbid obesity COPD (chronic obstructive pulmonary disease) CKD (chronic kidney disease) stage 5, GFR less than 15 ml/min Polysubstance abuse JOAN (acute kidney injury) Respiratory failure with hypoxia and hypercapnia Acute exacerbation of chronic obstructive pulmonary disease Tremor of both hands Ambulates with cane Seasonal allergies Herpes zoster Post covid-19 condition, unspecified Osteopenia (~2017) Obesity Respiratory failure COVID-19 (~03/2021) Osteoarthritis of ankles, bilateral Olecranon bursitis of left elbow Tubulovillous adenoma of large intestine (~2020) Hx of cardiac arrest (~2015) O2 dependent Methadone maintenance therapy patient History of claustrophobia History of seizure Anxiety and depression HTN (hypertension) Multiple fractures of ribs Anemia in chronic kidney disease Vitamin D deficiency Family history of colon cancer Dyslipidemia Restrictive lung disease Lung cancer (~2019) LEO (obstructive sleep apnea) Surgical History Hx of tracheostomy History of esophagogastroduodenoscopy (EGD) (~2021) History of removal of ureteral stent (~2013) History of lung biopsy (~2019) History of colonoscopy (~2020) Umbilical hernia History of laparoscopy (~2012) History of hand surgery History of tubal ligation Family History Father Diabetes mellitus Mother Depression Mental health disorder Maternal Grandfather Colon cancer Sister No problems noted. Son No problems noted. Daughter No problems noted. Daughter No problems noted. Social History Household Members: Unknown / Unable to assess Housing: House Housing Other:: mobile home Are you a primary career technical supervisor to a significant other at home: No Do you presently have visiting nurse or other home services: No Unable to assess alcohol history related to: Unable to respond Alcohol intake: never Comment: restraints Patient Tobacco Use Status: Former Tobacco user Tobacco use type: Cigarette Years Smoked: 25 yrs e-Cigarette/Vaping Use: Never Used Substance Use Type: Heroin Advance Directives Date on File: 03/21/21 service: No Current occupational status: unemployed and disabled Cognitive needs: No Hearing needs: No Vision needs: No Questionnaire PHQ-9 Over the last 2 weeks, how often have you been bothered by any of the following problems? 1. Little interest or pleasure in doing things: not at all 2. Feeling down, depressed, or hopeless: not at all 3. Trouble falling or staying asleep, or sleeping too much: several days 4. Feeling tired or having little energy: several days 5. Poor appetite or overeating: not at all 6. Feeling bad about yourself - or that you are a failure or have let yourself or your family down: not at all 7. Trouble concentrating on things, such as reading the newspaper or watching television: not at all 8. Moving or speaking so slowly that other people could have noticed. Or the opposite - being so fidgety or restless that you have been moving around a lot more than usual: not at all 9. Thoughts that you would be better off or of hurting yourself in some way: not at all Total score: 2 Source: Developed by Drs. Marco Ramirez, Elisa Kennedy, Warren Galvan and colleagues, with an educational cheo from [employer]. Physical Exam Vital Signs: BMI result Body Mass Index 39.7 Quality Reporting (2019) Adult ([facility] 138/2/22/69) Body Mass Index: 39.7 Depression/Bipolar (159/160/161/177) PHQ-9: Total score: 2 Coding
== END 2023-12-22 15:57 | disposition home or self-care (01) ==
PROVIDERS: PCP Internal Medicine; Visit Provider Internal Medicine
DX: Z00.00 Encounter for general adult medical examination without abnormal findings (principal); J44.9 Chronic obstructive pulmonary disease, unspecified; E66.01 Morbid (severe) obesity due to excess calories; N18.4 Chronic kidney disease, stage 4 (severe); N25.81 Secondary hyperparathyroidism of renal origin; Z68.39 Body mass index [BMI] 39.0-39.9, adult; M85.80 Other specified disorders of bone density and structure, unspecified site; F41.9 Anxiety disorder, unspecified; F32.9 Major depressive disorder, single episode, unspecified

== ENCOUNTER → 2023-12-22 10:34 | Outpatient (BNVA) | payer MEDICARE, MEDICAID, SELFPAY | PROVIDERS: PCP Internal Medicine; Visit Provider Internal Medicine | DX: Z00.00 Encounter for general adult medical examination without abnormal findings (principal); M85.80 Other specified disorders of bone density and structure, unspecified site; E66.01 Morbid (severe) obesity due to excess calories; J44.9 Chronic obstructive pulmonary disease, unspecified; N18.4 Chronic kidney disease, stage 4 (severe); N25.81 Secondary hyperparathyroidism of renal origin; F41.9 Anxiety disorder, unspecified; F32.9 Major depressive disorder, single episode, unspecified | CPT/HCPCS: 96127 ==

== ENCOUNTER 2023-12-28 11:45 | Outpatient (REF) | payer MEDICARE, MEDICAID, SELFPAY ==
[2023-12-28 14:24] LABS: Cholesterol 230 mg/dL (<200); HDL Cholesterol 39 mg/dL (>40); LDL Cholesterol Calculated 164 mg/dL (<100); Triglycerides 138 mg/dL (<150)
== END 2023-12-28 11:46 | disposition home or self-care (01) ==
LOC: HO.HMGCLDS 11:45
PROVIDERS: PCP Internal Medicine; Visit Provider Internal Medicine
DX: Z13.220 Encounter for screening for lipoid disorders (principal)
CPT/HCPCS: 36415; 80061

== ENCOUNTER 2024-01-20 12:44 | Outpatient (REF) | payer MEDICARE, MEDICAID, SELFPAY ==
[2024-01-20 16:44] LABS: Hematocrit 31.7 % (37.0-47.0); Hemoglobin 9.3 g/dl (12.0-16.0); Mean Corpuscular HGB Conc 29.3 g/dl (31.0-35.0); Mean Corpuscular Hemoglobin 27.6 pg (27.0-33.0); Mean Corpuscular Volume 94.1 fL (80.0-98.0); Mean Platelet Volume 9.6 fL (9.4-12.3); Platelet Count 282 X10*3/uL (160-400); Red Blood Count 3.37 X10*6/uL (4.20-5.50); Red Cell Distribution Width 12.8 % (11.0-16.0); White Blood Count 12.1 X10*3/uL (4.8-10.8)
[2024-01-20 17:04] LABS: Anion Gap 15 (12-20); Blood Urea Nitrogen 51 mg/dL (9-16); Calcium 10.7 mg/dL (8.4-10.2); Carbon Dioxide 26 mmol/L (22-29); Chloride 103 mmol/L (96-108); Estimated Glomerular Filt Rate 11; Glucose Random 76 mg/dL (60-115); Potassium 4.6 mmol/L (3.3-5.1); Sodium 139 mmol/L (135-145)
[2024-01-20 17:49] LABS: Parathyroid Hormone Intact 394.6 pg/mL (8.7-77.1)
== END 2024-01-20 12:45 | disposition home or self-care (01) ==
LOC: HO.HMGCLDS 12:44
PROVIDERS: PCP Internal Medicine; Visit Provider Internal Medicine Hypertension Specialist
DX: N25.81 Secondary hyperparathyroidism of renal origin (principal); N18.4 Chronic kidney disease, stage 4 (severe)
CPT/HCPCS: 36415; 80048; 83970; 85027

== ENCOUNTER 2024-01-28 15:53 | Emergency (ER) | payer MEDICARE, MEDICAID, SELFPAY ==
[2024-01-28 16:05] VITALS: BP 151/94; PULSE 130; RESP 30; TEMP 36.6; O2SAT 95; BMI 30.9
[2024-01-28 18:05] VITALS: BP 152/88; PULSE 98; RESP 19; O2SAT 95
[2024-01-28 19:52] VITALS: BP 129/67; PULSE 93; RESP 20; TEMP 36.3; O2SAT 94
[2024-01-28 22:00] VITALS: BP 115/66; PULSE 81; RESP 20; TEMP 36.3; O2SAT 95
--- NOTE | 2024-01-28 22:31 | ECG_ITS ---
Test Reason : OD Blood Pressure : / mmHG Vent. Rate : 086 BPM Atrial Rate : 086 BPM P-R Int : 168 ms QRS Dur : 088 ms QT Int : 362 ms P-R-T Axes : 081 061 058 degrees QTc Int : 433 ms Sinus rhythm with occasional Premature ventricular complexes Otherwise normal ECG When compared with ECG of 03-FEB-2023 23:30, T wave amplitude has increased in Lateral leads Referred By: Nichole Langford Electronically Signed By:YUNIOR BARON
--- NOTE | 2024-01-28 22:42 | ED_ITS ---
HPI - Overdose General Chief Complaint: Overdose Stated Complaint: OD ON HEROIN, NARCAN GIVEN BY FAMILY PER EMS Time Seen by Provider: 01/28/24 16:16 Source: patient and EMS Mode of arrival: EMS Limitations: no limitations History of Present Illness ED Provider: Dr. Nichole Langford HPI Narrative: Patient comes to the emergency room complaining of an overdose. According to EMS, patient was acting erratic, 911 was called and brought to the emergency room. Patient states that earlier today she had a scheduled CT scan done which she usually gets as maintenance care for lung cancer. Patient states that she took Klonopin which was prescribed to her, did not do anything to calm her anxiety before the CT scan. Then patient took 1 mg of lorazepam. According to the patient she was still feeling very anxious and therefore took heroin. Patient states that she has to bags. When patient was at home, seems that she went unresponsive at home, difficult to arouse, patient's son gave her 4 mg of Narcan. Patient was very confused, erratic but on arrival calm and cooperative and explain does what happened. Patient states that she has no chest pain or shortness of breath, uses oxygen at home 4 L. patient denies any SI or HI. Patient states that she was just trying to calm her anxiety to help her to get through the CT scan. Related Data Home Medications ?Medication ?Instructions ?Recorded ?Confirmed acetaminophen 325 mg tablet 650 mg PO Q6H PRN Pain 07/24/21 12/22/23 methadone 10 mg/mL oral concentrate 70 mg PO DAILY 05/22/22 12/22/23 fluticasone propionate 50 1 spray intranasal DAILY 10/01/22 12/22/23 mcg/actuation nasal spray,suspension hydroxyzine pamoate 100 mg capsule 100 mg PO BEDTIME PRN insomnia 12/13/22 12/22/23 gabapentin 100 mg capsule 100 mg PO .prn PRN 05/25/23 12/22/23 guaifenesin 600 mg tablet, 600 mg PO BID PRN copd/Mucus 05/25/23 12/22/23 extended release 12 hr (Mucinex) lorazepam 1 mg tablet 1 mg PO BID PRN 05/25/23 12/22/23 Previous Rx's ?Medication ?Instructions ?Recorded aspirin 81 mg tablet,delayed 81 mg PO DAILY #30 tabs 12/11/19 release Breo Ellipta 100 mcg-25 mcg/dose 1 ea PO DAILY copd 90 days #3 ea 06/14/23 powder for inhalation (fluticasone furoate-vilanterol) prednisone 5 mg tablet 5 mg PO DAILY COPD 30 days #30 tabs 08/25/23 sodium zirconium cyclosilicate 10 10 g PO DAILY #10 ea 10/25/23 gram oral powder packet (Lokelma) ipratropium 0.5 mg-albuterol 3 mg 3 ml inhalation Q4-6H PRN 12/13/23 (2.5 mg base)/3 mL nebulization shortness of breath or wheezing soln #180 mL torsemide 20 mg tablet 20 mg PO BID #180 tabs 01/10/24 azithromycin 250 mg tablet 250 mg PO 3XW COPD/BRONCHITIS 30 01/20/24 days #13 tabs calcitriol 0.5 mcg capsule 1 mcg (2 x 0.5 mcg) PO DAILY #180 01/24/24 caps carvedilol 3.125 mg tablet 3.125 mg PO BID #180 tabs 01/25/24 Allergies Allergy/AdvReac Type Severity Reaction Status Date / Time ciprofloxacin [From Cipro] Allergy Severe HIVES/SWELLING, Verified 01/28/24 16:22 THROAT CLOSES shellfish derived Allergy Intermediate Vomiting Verified 01/28/24 16:22 [SHELLFISH DERIVED] NSAIDS (Non-Steroidal AdvReac Severe Avoid due Verified 01/28/24 16:22 Anti-Inflamma to kidney disease Review of Systems Review of Systems: Constitutional : No Weight loss, No Fever, No Chills, No Night Sweats, No Fatig ue, No Malaise ENT/Mouth : No Hearing loss, No Ear Pain, No Nasal Congestion, No Sinus Pain, No Hoarseness, No sore throat, No Rhinorrhea, No Swallowing Difficulty Eyes: No Eye Pain, No Swelling, No Redness, No Foreign Body, No Discharge, No Vision Changes Cardiovascular : No Chest Pain, No SOB, No Dyspnea on Exertion, No Orthopnea, No Edema, No Palpitations Respiratory : No Cough, No Sputum, No Wheezing, No Smoke Exposure, No Dyspnea Gastrointestinal : No Nausea, No Vomiting, No Diarrhea, No Constipation, No abdominal Pain, No Hematochezia, No Melena Genitourinary : no irregular bleeding, No Dysuria, No Urinary Frequency, No Hematuria, No Urinary Incontinence, No Urgency, No Flank Pain, No Urinary Flow Changes, No Hesitancy Musculoskeletal : No joint pain, No Myalgias, No Joint Swelling Skin : No Skin Lesions, No rash Neuro : No Weakness, No Numbness, No Paresthesias, No Loss of Consciousness, No Dizziness, No Headache Psych : Complaining of anxiety No Depression, No SI/HI/AH/VH, admits to accidental overdose with heroin Heme/Lymph: No Bruising, No Bleeding,No Lymphadenopathy Endocrine : No Polyuria, No Polydipsia, No Temperature Intolerance [facility] Past Medical History Medical History History of lung cancer Hx of bronchitis CKD (chronic kidney disease) stage 4, GFR 15-29 ml/min Morbid obesity COPD (chronic obstructive pulmonary disease) Polysubstance abuse Respiratory failure with hypoxia and hypercapnia Ambulates with cane Seasonal allergies Herpes zoster Osteopenia (~2017) Respiratory failure COVID-19 (~03/2021) Osteoarthritis of ankles, bilateral Olecranon bursitis of left elbow Tubulovillous adenoma of large intestine (~2020) Hx of cardiac arrest (~2015) O2 dependent Methadone maintenance therapy patient History of claustrophobia History of seizure Anxiety and depression HTN (hypertension) Multiple fractures of ribs Anemia in chronic kidney disease Vitamin D deficiency Family history of colon cancer Dyslipidemia Restrictive lung disease LEO (obstructive sleep apnea) Surgical History (Updated 12/26/23 @ 20:17 by Valerie Castano MD) Hx of tracheostomy History of esophagogastroduodenoscopy (EGD) (~2021) History of removal of ureteral stent (~2013) History of lung biopsy (~2019) History of colonoscopy (~2020) Umbilical hernia History of laparoscopy (~2012) History of hand surgery History of tubal ligation Family History Family History Father Diabetes mellitus Mother Depression Mental health disorder Maternal Grandfather Colon cancer Sister No problems noted. Son No problems noted. Daughter No problems noted. Daughter No problems noted. Social History Social History Household Members: Unknown / Unable to assess Housing: House Housing Other:: mobile home Are you a primary acute care registered nurse to a significant other at home: No Do you presently have visiting nurse or other home services: No Unable to assess alcohol history related to: Unable to respond Alcohol intake: never Comment: restraints Patient Tobacco Use Status: Former Tobacco user Tobacco use type: Cigarette Years Smoked: 25 yrs Smoked in Last 30 Days: No e-Cigarette/Vaping Use: Never Used Use of substances other than those prescribed or required for medical reasons: No Substance Use Type: Heroin Advance Directives: Yes Advance Directives on File: Yes Advance Directives Date on File: 03/21/21 Do you have a plan to hurt others: No Plan service: No Current occupational status: unemployed and disabled Cognitive needs: No Hearing needs: No Vision needs: No Physical Exam Vital Signs: Vital Signs: Last Vital Signs Temp 97.3 F 01/28/24 22:00 Pulse 81 01/28/24 22:00 Resp 20 01/28/24 22:00 BP 115/66 01/28/24 22:00 Pulse Ox 95 01/28/24 22:00 O2 Del Method Nasal Cannula 01/28/24 22:00 O2 Flow Rate 2 01/28/24 22:00 Oxygen Flow Rate 2 01/28/24 16:05 BMI result Body Mass Index 30.9 Const: Other: Appearance: Alert. Oriented X3. No acute distress. Eyes: Pupils equal, round and reactive to light. ENT: Pharynx normal. Neck: Normal inspection. Neck supple. No lymph nodes noted. No crepitus CVS: Normal heart rate and rhythm. Pulses normal. Normal S1 and S2 Respiratory: No respiratory distress. Breath sounds normal. No Wheezing. No rales Abdomen: Soft and nontender. No rigidity. No distention. Skin: Skin warm and dry. Normal skin color. Normal skin turgor. Extremities: No lower extremity edema. No Lacerations. No Rash Neuro: Oriented X 3. No motor deficit. No sensory deficit. Moving all extremities. No slurred speech. CN 2 through 12 grossly intact Psych: calm, cooperative, normal affect Course Course Course Narrative: Here in the ED patient awake, alert and oriented x3. Patient states that she feels completely back to baseline, states that does not believe that lab work is necessary and requesting to avoid doing any lab work, denies chest pain or shortness of breath. Patient agreeable to let us do an EKG Patient states that she feels well to be discharged home. Feels that she is back to her baseline, Denies SI or HI Medical Decision Making Medical Decision Making MDM Narrative: My interpretation of EKG: Normal sinus rhythm, heart rate 86, no ST segment depression or elevation, no T-wave inversion, occasional PVCs, QTC 433 In the emergency room, patient has been awake, alert and oriented x3, calm and cooperative. Patient's vitals: Patient's blood pressure 115/66, heart rate 81, respirations 20, temperature 97.3 degrees, oxygen saturation 95% on 2 L nasal cannula which she uses at home. Patient has no complaints at all, requesting to be discharged home. Differential Diagnosis Differential Diagnoses: The differential diagnosis associated with the presentation includes (Accidental overdose, anxiety, depression) Discharge Plan Discharge Clinical Impression: Accidental overdose, Drug overdose Patient Disposition: Home, Self-Care Instructions: Adult Overdose (ED) Additional Instructions: Please follow-up with your primary care physician tomorrow. If you have any worsening or new symptoms, please return to the emergency room or call 911 Prescriptions: No Action aspirin 81 mg tablet,delayed release (DR/EC) 81 mg PO DAILY Qty: 30 0RF fluticasone furoate-vilanterol [Breo Ellipta] 100-25 mcg/dose blister with device 1 ea PO DAILY 90 Days Qty: 3 3RF prednisone 5 mg tablet 5 mg PO DAILY 30 Days Qty: 30 3RF ipratropium-albuterol 0.5 mg-3 mg(2.5 mg base)/3 mL solution for nebulization 3 ml inhalation Q4-6H PRN (Reason: shortness of breath or wheezing) Qty: 180 11RF torsemide 20 mg tablet 20 mg PO BID Qty: 180 0RF azithromycin 250 mg tablet 250 mg PO 3XW 30 Days Qty: 13 3RF calcitriol 0.5 mcg capsule 1 mcg PO DAILY Qty: 180 0RF carvedilol 3.125 mg tablet 3.125 mg PO BID Qty: 180 1RF acetaminophen 325 mg Tablet 650 mg PO Q6H PRN (Reason: Pain) hydroxyzine pamoate 100 mg capsule 100 mg PO BEDTIME PRN (Reason: insomnia) methadone 10 mg/mL concentrate 70 mg PO DAILY Patient Comments: [facility] gabapentin 100 mg capsule 100 mg PO .prn PRN lorazepam 1 mg tablet 1 mg PO BID PRN fluticasone propionate 50 mcg/actuation spray,suspension 1 spray intranasal DAILY guaifenesin [Mucinex] 600 mg tablet extended release 12hr 600 mg PO BID PRN (Reason: copd/Mucus) Lokelma 10 gram powder in packet 10 g PO DAILY Qty: 10 0RF Print Language: Nepalese
--- NOTE | 2024-01-28 22:43 | PC.NURSE ---
Dr. Langford to bedside re-evaluating patient. EKG ordered. Pt is arousable, plan to discharge pending EKG results.
[2024-01-28 23:09] LABS: Amphetamine Screen Urine Not Detected (Not Detect); Barbiturates, Urine Not Detected (Not Detect); Benzodiazepines Screen Urine Not Detected (Not Detect); Buprenorphine Scr Not Detected (Not Detect); Cannabinoid Screen Urine Not Detected (Not Detect); Cocaine Screen Urine POSITIVE (Not Detect); Fentanyl, urine POSITIVE (Not Detect); Methadone Screen, Urine Positive (Not Detect); Opiate Screen Urine POSITIVE (Not Detect); Oxycodone Screen Urine Not Detected (Not Detect); Phencyclidine Screen Urine Not Detected (Not Detect)
--- NOTE | 2024-01-29 02:22 | PC.NURSE ---
Awaiting EMS pick-up to discharge home. Patient continues to sleep at this time. NSR on cardiac cath lab manager. Vital signs stable. Care ongoing by this RN.
[2024-01-29 02:42] VITALS: BP 115/66; PULSE 81; RESP 20; TEMP 36.3; O2SAT 95
== END 2024-01-29 02:44 | disposition home or self-care (01) ==
PROVIDERS: Emergency Provider Emergency Medicine
DX: T50.901A Poisoning by unspecified drugs, medicaments and biological substances, accidental (unintentional), initial encounter (principal); R40.4 Transient alteration of awareness; Y92.9 Unspecified place or not applicable; Z79.899 Other long term (current) drug therapy
CPT/HCPCS: 80307; 93005; 99285

== ENCOUNTER → 2024-01-28 22:31 | Outpatient (BNV) | payer MEDICARE, MEDICAID, SELFPAY | PROVIDERS: Emergency Provider Emergency Medicine; Visit Provider Internal Medicine | DX: I49.3 Ventricular premature depolarization (principal) | CPT/HCPCS: 93010 ==

== ENCOUNTER 2024-02-04 14:05 | Outpatient (REF) | payer MEDICARE, MEDICAID, SELFPAY | END 2024-02-04 14:06 | disposition home or self-care (01) | LOC: HO.MAMMO 14:05 | PROVIDERS: PCP Internal Medicine; Visit Provider Internal Medicine | DX: Z12.31 Encounter for screening mammogram for malignant neoplasm of breast (principal) | CPT/HCPCS: 77063; 77067 ==

== ENCOUNTER → 2024-02-04 14:15 | Outpatient (BNV) | payer MEDICARE, MEDICAID, SELFPAY | PROVIDERS: PCP Internal Medicine; Visit Provider Internal Medicine | DX: Z12.31 Encounter for screening mammogram for malignant neoplasm of breast (principal) | CPT/HCPCS: 77063; 77067 ==

== ENCOUNTER 2024-02-10 11:37 | Outpatient (AMB) | payer MEDICARE, MEDICAID, SELFPAY ==
[2024-02-10 11:43] VITALS: BP 122/78; PULSE 49; O2SAT 100; BMI 39.7
--- NOTE | 2024-02-10 11:43 | HO.NEPHOV ---
Vital Signs 02/10/24 11:43 Height 5 ft 1 in Weight 210 lb BMI 39.7 BP 122/78 Blood Pressure Location Rt brachial Position Sitting Pulse 49 L Pulse Source Pulse Oximeter Pulse Oximetry (%) 100 Oxygen Delivery Method Nasal Cannula Intake Visit Reasons: COPD/ Conf Painter Aircraft Required: No Accompanied by: Spouse Allergies ciprofloxacin [From Cipro] Allergy (Severe, Verified 02/10/24 11:45) HIVES/SWELLING, THROAT CLOSES shellfish derived [SHELLFISH DERIVED] Allergy (Intermediate, Verified 02/10/24 11:45) Vomiting NSAIDS (Non-Steroidal Anti-Inflamma Adverse Reaction (Severe, Verified 02/10/24 11:45) Avoid due to kidney disease Medication List - Last Reconciled 02/10/24 by Fermin Muhammad MD acetaminophen 650 mg PO Q6H PRN aspirin 81 mg PO DAILY azithromycin 250 mg PO 3XW 30 days Breo Ellipta 100-25 mcg/dose (fluticasone furoate-vilanterol) 1 ea PO DAILY 90 days NS calcitriol 1 mcg (2 x 0.5 mcg) PO DAILY carvedilol 3.125 mg PO BID fluticasone propionate 50 mcg/actuation 1 spray intranasal DAILY gabapentin 100 mg PO .prn PRN guaifenesin ER (Mucinex) 600 mg PO BID PRN hydroxyzine pamoate 100 mg PO BEDTIME PRN ipratropium-albuterol 0.5 mg-3 mg(2.5 mg base)/3 mL 3 mL inhalation Q4-6H PRN lorazepam 1 mg PO BID PRN methadone 70 mg PO DAILY prednisone 5 mg PO DAILY 30 days sodium zirconium cyclosilicate (Lokelma) 10 grams PO DAILY torsemide 20 mg PO BID HPI Comments Details: 62 years old female with advanced chronic obstructive pulmonary disease and chronic respiratory failure, on oxygen, and treated for acute exacerbation of COPD/respiratory failure, was able to normalize blood gases with aggressive treatment. She has advanced CKD approaching end stage renal disease. She has significant fluid overload requiring high-dose of diuretics. She is here for further follow-up. Recently admitted for respiratory illness and was treated with a course of prednisone. During hospitalization diltiazem has been discontinued but she is still taking it. 02/22/23: Doing better;No new issues 05/25/2023. Overall doing well. Recently missed Neurology appointment due to logistical issues. Respiratory status remains unchanged. Leg edema remains stable 12/02/23 Still with dyspnea Weight is better Was on prednisone with some improvement in breathing 02/10/2024. Complains of cough with clear sputum. Weight is relatively stable. Appetite is fair. After increasing calcitriol to 1 mcg a day PTH has decreased from 1300 down to 364 PFSH Medical History History of lung cancer Hx of bronchitis CKD (chronic kidney disease) stage 4, GFR 15-29 ml/min Morbid obesity COPD (chronic obstructive pulmonary disease) Polysubstance abuse Respiratory failure with hypoxia and hypercapnia Ambulates with cane Seasonal allergies Herpes zoster Osteopenia (~2017) Respiratory failure COVID-19 (~03/2021) Osteoarthritis of ankles, bilateral Olecranon bursitis of left elbow Tubulovillous adenoma of large intestine (~2020) Hx of cardiac arrest (~2015) O2 dependent Methadone maintenance therapy patient History of claustrophobia History of seizure Anxiety and depression HTN (hypertension) Multiple fractures of ribs Anemia in chronic kidney disease Vitamin D deficiency Family history of colon cancer Dyslipidemia Restrictive lung disease LEO (obstructive sleep apnea) Surgical History Hx of tracheostomy History of esophagogastroduodenoscopy (EGD) (~2021) History of removal of ureteral stent (~2013) History of lung biopsy (~2019) History of colonoscopy (~2020) Umbilical hernia History of laparoscopy (~2012) History of hand surgery History of tubal ligation Family History Father Diabetes mellitus Mother Depression Mental health disorder Maternal Grandfather Colon cancer Sister No problems noted. Son No problems noted. Daughter No problems noted. Daughter No problems noted. Social History Household Members: Unknown / Unable to assess Housing: House Housing Other:: mobile home Are you a primary career placement specialist to a significant other at home: No Do you presently have visiting nurse or other home services: No Unable to assess alcohol history related to: Unable to respond Alcohol intake: never Comment: restraints Patient Tobacco Use Status: Former Tobacco user Tobacco use type: Cigarette Years Smoked: 25 yrs e-Cigarette/Vaping Use: Never Used Substance Use Type: Heroin Advance Directives Date on File: 03/21/21 service: No Current occupational status: unemployed and disabled Cognitive needs: No Hearing needs: No Vision needs: No Physical Exam Vital Signs: Last Vital Signs Pulse 49 L 02/10/24 11:43 BP 122/78 02/10/24 11:43 Pulse Ox 100 02/10/24 11:43 Oxygen Delivery Method Nasal Cannula 02/10/24 11:43 BMI result Body Mass Index 39.7 Results Reviewed Nephrology Results: Hgb 9.3 g/dl (12.0-16.0) L 01/20/24 WBC 12.1 X10*3/uL (4.8-10.8) H 01/20/24 Plt Count 282 X10*3/uL (160-400) 01/20/24 Sodium 139 mmol/L (135-145) 01/20/24 Potassium 4.6 mmol/L (3.3-5.1) 01/20/24 Chloride 103 mmol/L (96-108) 01/20/24 Carbon Dioxide 26 mmol/L (22-29) 01/20/24 BUN 51 mg/dL (9-16) H 01/20/24 Creatinine 4.25 mg/dL (0.5-1.4) H* 01/20/24 Calcium 10.7 mg/dL (8.4-10.2) H 01/20/24 PTH Intact 394.6 pg/mL (8.7-77.1) H 01/20/24 Assessment & Plan Assessment & Plan (1) CKD (chronic kidney disease) stage 5, GFR less than 15 ml/min: Code(s): N18.5 - Chronic kidney disease, stage 5 Category: Medical Plan: Advanced CKD approaching end stage renal disease. No overt signs or symptoms of uremia. Goal is to slow the progression of the renal disease. We will continue to watch renal function closely and initiate dialysis when appropriate. (2) Anemia in chronic kidney disease: Code(s): N18.9 - Chronic kidney disease, unspecified; D63.1 - Anemia in chronic kidney disease Category: Medical Qualifiers: Chronic kidney disease stage: stage 5, not on chronic dialysis Qualified Code(s): N18.5 - Chronic kidney disease, stage 5; D63.1 - Anemia in chronic kidney disease Plan: No absolute indication to start erythropoietin yet. Hct has improved I will follow the hemoglobin along with iron stores and start on epogen as needed. (3) Acute exacerbation of chronic obstructive pulmonary disease: Code(s): J44.1 - Chronic obstructive pulmonary disease with (acute) exacerbation Category: Medical Plan: Management per PCP Continue DuoNeb updrafts q.i.d. and Breo-100 1 inhalation daily. Restart Prednisone 40 mg Q.d. and taper. Mucinex 600 mg b.i.d. also prescribed. (4) HTN (hypertension): Code(s): I10 - Essential (primary) hypertension Category: Medical Plan: Blood pressure is better controlled No need for Cardizem ( was stopped in Jan 2023) Continue with Coreg 3.125 b.i.d.. No changes were made to her diabetic regimen. (5) Secondary hyperparathyroidism: Code(s): N25.81 - Secondary hyperparathyroidism of renal origin Category: Medical Plan: PTH is more than 1600. On calcitriol 1 mcg daily PTH is down to 364. She will recheck and lower the dose as appropriate Plan as above Orders: Orders Complete Blood Count no Diff 2 Months N18.4 - Chronic kidney disease, stage 4 (severe) Parathyroid Hormone Intact 2 Months N18.4 - Chronic kidney disease, stage 4 (severe) Basic Metabolic Panel 2 Months N18.4 - Chronic kidney disease, stage 4 (severe) Medications: New prednisone 4 tabs PO daily x 3 days; 3 tabs PO Daily for 3 days 2 tabs PO daily for 3 days 1 tab po daily for 3 days 10 mg PO DAILY 30 tabs 0RF COPD Changed From gabapentin 100 mg PO .prn PRN To gabapentin 100 mg PO DAILY PRN 30 caps 0RF leg pain Discontinued prednisone Discontinued Reason: Doctor's Order 5 mg PO DAILY 30 days 30 tabs 3RF COPD Coding Level of Care Code Est Pt Level 5 (24081) Complex EM visit Add On G2211 Diagnoses CKD (chronic kidney disease) stage 5, GFR less than 15 ml/min N18.5 Anemia in stage 5 chronic kidney disease, not on chronic dialysis N18.5; D63.1 Chronic kidney disease stage: stage 5, not on chronic dialysis Acute exacerbation of chronic obstructive pulmonary disease J44.1 HTN (hypertension) I10 Secondary hyperparathyroidism N25.81
== END 2024-02-10 12:00 | disposition home or self-care (01) ==
PROVIDERS: PCP Internal Medicine; Visit Provider Internal Medicine Hypertension Specialist
DX: I12.0 Hypertensive chronic kidney disease with stage 5 chronic kidney disease or end stage renal disease (principal); N18.5 Chronic kidney disease, stage 5; D63.1 Anemia in chronic kidney disease; J44.1 Chronic obstructive pulmonary disease with (acute) exacerbation; N25.81 Secondary hyperparathyroidism of renal origin
CPT/HCPCS: 99215; G2211

== ENCOUNTER → 2024-02-10 11:37 | Outpatient (BNVA) | payer MEDICARE, MEDICAID, SELFPAY | PROVIDERS: PCP Internal Medicine; Visit Provider Internal Medicine Hypertension Specialist | DX: I12.9 Hypertensive chronic kidney disease with stage 1 through stage 4 chronic kidney disease, or unspecified chronic kidney disease (principal); N18.5 Chronic kidney disease, stage 5; J44.1 Chronic obstructive pulmonary disease with (acute) exacerbation; N25.81 Secondary hyperparathyroidism of renal origin; D63.1 Anemia in chronic kidney disease | CPT/HCPCS: 99212 ==

== ENCOUNTER 2024-03-06 15:10 | Outpatient (AMB) | payer MEDICARE, MEDICAID, SELFPAY ==
[2024-03-06 15:36] VITALS: BP 140/80; PULSE 100; O2SAT 100; BMI 40.0
--- NOTE | 2024-03-06 15:36 | MHC.OFFVIS ---
Vital Signs 03/06/24 15:36 Height 5 ft 1 in Weight 211 lb 10.3 oz BMI 40.0 BP 140/80 H Blood Pressure Location Lt brachial Position Sitting Pulse 100 Pulse Source Pulse Oximeter Pulse Oximetry (%) 100 Oxygen Delivery Method Room Air Intake Visit Reasons: copd Intake Note: pt is here for follow up and still struggling with breathing, prednisone is 5mg daily, and azithromax qod, can you order #45 for a 3 month supply. Geriatric Nurse Assistant Required: No Allergies ciprofloxacin [From Cipro] Allergy (Severe, Verified 03/06/24 16:03) HIVES/SWELLING, THROAT CLOSES shellfish derived [SHELLFISH DERIVED] Allergy (Intermediate, Verified 03/06/24 16:03) Vomiting NSAIDS (Non-Steroidal Anti-Inflamma Adverse Reaction (Severe, Verified 03/06/24 16:03) Avoid due to kidney disease Medication List - Last Reconciled 03/06/24 by Mayte Cochran MD acetaminophen 650 mg PO Q6H PRN aspirin 81 mg PO DAILY atorvastatin 10 mg PO BEDTIME azithromycin 250 mg PO 3XW 30 days Breo Ellipta 100-25 mcg/dose (fluticasone furoate-vilanterol) 1 ea PO DAILY 90 days NS calcitriol 1 mcg (2 x 0.5 mcg) PO DAILY carvedilol 3.125 mg PO BID fluticasone propionate 50 mcg/actuation 1 spray intranasal DAILY gabapentin 100 mg PO DAILY PRN guaifenesin ER (Mucinex) 600 mg PO BID PRN hydroxyzine pamoate 100 mg PO BEDTIME PRN ipratropium-albuterol 0.5 mg-3 mg(2.5 mg base)/3 mL 3 mL inhalation Q4-6H PRN lorazepam 1 mg PO BID PRN methadone 70 mg PO DAILY prednisone 5 mg PO DAILY 30 days sodium zirconium cyclosilicate (Lokelma) 10 grams PO DAILY torsemide 20 mg PO BID Do you need a note to return to daycare/school/sports/work: No HPI HPI copd: Details: This 63 years old female is here for follow-up after 3 months. Recently she had increased to symptoms of shortness of breath and cough and has been treated with a short course of prednisone prescribed to her by PCP. Her prednisone 5 mg is increased to once a day instead of alternate days. Breathing is relatively stable at present, but she remained short of breath with any minimal exertion. She is mostly in the wheelchair and at home tries to walk with a cane. Today her main issue is painful left knee due to hitting it against a furniture. She claims that her breathing is more at baseline today. She does use oxygen 2 L/minute continuously. [facility] Medical History (Updated 03/06/24 @ 16:12 by Mayte Cochran MD) Respiratory failure with hypoxia Dyslipidemia History of lung cancer Hx of bronchitis CKD (chronic kidney disease) stage 4, GFR 15-29 ml/min Morbid obesity COPD (chronic obstructive pulmonary disease) Polysubstance abuse Respiratory failure with hypoxia and hypercapnia Ambulates with cane Seasonal allergies Herpes zoster Osteopenia (~2017) Respiratory failure COVID-19 (~03/2021) Osteoarthritis of ankles, bilateral Olecranon bursitis of left elbow Tubulovillous adenoma of large intestine (~2020) Hx of cardiac arrest (~2015) O2 dependent Methadone maintenance therapy patient History of claustrophobia History of seizure Anxiety and depression HTN (hypertension) Multiple fractures of ribs Anemia in chronic kidney disease Vitamin D deficiency Family history of colon cancer Restrictive lung disease LEO (obstructive sleep apnea) Surgical History Hx of tracheostomy History of esophagogastroduodenoscopy (EGD) (~2021) History of removal of ureteral stent (~2013) History of lung biopsy (~2019) History of colonoscopy (~2020) Umbilical hernia History of laparoscopy (~2012) History of hand surgery History of tubal ligation Family History Father Diabetes mellitus Mother Depression Mental health disorder Maternal Grandfather Colon cancer Sister No problems noted. Son No problems noted. Daughter No problems noted. Daughter No problems noted. Social History Household Members: Unknown / Unable to assess Housing: House Housing Other:: mobile home Are you a primary patient care representative to a significant other at home: No Do you presently have visiting nurse or other home services: No Unable to assess alcohol history related to: Unable to respond Alcohol intake: never Comment: restraints Patient Tobacco Use Status: Former Tobacco user Tobacco use type: Cigarette Years Smoked: 25 yrs e-Cigarette/Vaping Use: Never Used Substance Use Type: Heroin Advance Directives Date on File: 03/21/21 service: No Current occupational status: unemployed and disabled Cognitive needs: No Hearing needs: No Vision needs: No Review of Systems Const All systems reviewed & are unremarkable except as noted in HPI and below Eyes Reports no additional complaints ENT Reports no additional complaints Card Denies chest pain, Denies irregular heart rhythm and Denies leg edema Resp Reports as per HPI and Reports other (RIGHT-SIDED RIBCAGE PAIN IS NEW DUE TO THE FALL AT HOME) GI Denies no additional complaints Denies no additional complaints Musc Reports abnormal gait (IMPAIRED LOCOMOTION, WALKS SLOW, WITH MINIMAL SUPPORT) and Reports back pain Skin/Breast Reports system reviewed and no additional complaints, except as documented Neuro Reports abnormal gait (IMPAIRED LOCOMOTION, WALKS SLOW, WITH MINIMAL SUPPORT) Psych Reports no additional complaints Physical Exam Vital Signs: Last Vital Signs Pulse 100 03/06/24 15:36 BP 140/80 H 03/06/24 15:36 Pulse Ox 100 03/06/24 15:36 Oxygen Delivery Method Room Air 03/06/24 15:36 BMI result Body Mass Index 40.0 Const General: comfortable, no acute distress, alert, awake and other (WALKS SLOWLY, WITH THE HELP OF A CANE.) Orientation/consciousness: patient oriented x3 HEENT Head: Yes normal to inspection General nose exam: No nasal polyps present and No nasal discharge present Face and sinus: Yes sinuses nontender Mouth: oropharynx normal Teeth and gingiva: other (THROAT IS CLEAR NO THRUSH AND NO EXTRA MUCUS NOTED) Throat: Yes posterior oropharynx normal Eyes General: appearance normal, both eyes and all related structures Neck Neck: Yes normal visual inspection, Yes no lymphadenopathy, Yes trachea midline and Yes no JVD Thyroid: Thyroid normal Chest Chest palpation & inspection: normal inspection of the chest, normal palpation of entire chest wall and no tenderness Resp Other: PERCUSSION NOTE IS RESONANT, BREATH SOUNDS ARE VERY DISTANT BUT EQUAL ON BOTH SIDES. NO WHEEZES OR RHONCHI ARE HEARD TODAY. Cardio Palpation: PMI not normal (PMI IS NOT PALPABLE.) and other Rate: regular rate Rhythm: regular rhythm Heart sounds: no gallops and no murmurs GI Palpation (GI): Soft to palpation, nontender, No hepatosplenomegaly present, no masses and Other GI palpation findings present (ABDOMEN IS OBESE AND PROTUBERANT) Auscultation: normal bowel sounds Back/Spine/Pelvis Thoracic/Lumbar Spine: thoracic and lumbar spine normal to inspection and thoraco-lumbar ROM limited Skin General skin exam: no rashes or lesions noted Neuro General: patient oriented x3, No gait normal (GAIT IS SLOW AND SLIGHTLY UNSTABLE PATIENT NEEDS A CANE TO WALK) and no focal motor deficits Cranial nerves: Yes CN's II-XII intact bilaterally Extrem General: Yes normal to inspection, Yes no calf tenderness and Yes edema (CHRONIC STASIS EDEMA OF THE LEGS) Psych Appearance: grossly normal and well kempt Speech and movement: Normal speech and movement present Assessment & Plan Assessment & Plan (1) Morbid obesity: Comment: SHE IS CHRONICALLY OBESE MAINLY DUE TO LACK OF PHYSICAL ACTIVITY. CURRENT BMI 40.0 DENIES SYMPTOMS OF SLEEP APNEA Code(s): E66.01 - Morbid (severe) obesity due to excess calories Category: Medical Plan: Talked to her about weight but practically she has no weight to lose weight. She is trying to watch her diet as much as possible. But she is not able to. Do any exercise. (2) COPD (chronic obstructive pulmonary disease): Comment: PATIENT HAS LONG-STANDING HISTORY OF CHRONIC OBSTRUCTIVE PULMONARY DISEASE PRIMARILY DUE TO HER LONG TIME SMOKING, SHE QUIT EARLIER IN 2022. GETS FREQUENT ACUTE EXACERBATIONS,. RECENTLY TREATED FOR AN ACUTE EXACERBATION AT HOME WITH A SHORT COURSE OF PREDNISONE . Code(s): J44.9 - Chronic obstructive pulmonary disease, unspecified Category: Medical Plan: SHE IS ON PREDNISONE 5 MG EVERY DAY INSTEAD OF ALTERNATE DAYS . SHE IS ADVISED TO USE BREO 100-251 INHALATION DAILY REGULARLY CONTINUE AZITHROMYCIN 250 MG ON ALTERNATE DAYS IPRATROPIUM-ALBUTEROL SOLUTION IN THE NEBULIZER Q 4-6 HOURS P.R.N. (3) Respiratory failure with hypoxia: Comment: PATIENT HAS LONGSTANDING HISTORY OF HYPOXEMIA TREATED WITH THE OXYGEN. Code(s): J96.91 - Respiratory failure, unspecified with hypoxia Category: Medical Plan: CONTINUE TO USE OXYGEN 2 L/MINUTE CONTINUOUSLY . Coding Level of Care Code Est Pt Level 3 (35680) Diagnoses Morbid obesity E66.01 COPD (chronic obstructive pulmonary disease) J44.9 Respiratory failure with hypoxia J96.91
--- OUTSIDE RECORDS SUMMARY | 2024-03-06 19:18 | XMS_ITS | Encounter Summary ---
Author Organization [facility] Address [address] [facility] [address] [place] [address] Phone Care Team Providers Care Motorcycle Mechanic Apprentice Name Role Phone Angel Castano MD Primary Care Provider [phone]- [phone] Encounter Details Date Type Department Care Team (Late st Contact Info) Description 11/10/2022 Office Communication [facility] [address] [facility] [address] [place] [phone] Tony Rodriguez MD [address] [facility] [address] [place] [phone] Social History Tobacco Use Types Packs/Day Years Used Date Smoking Tobacco: Former Smokeless Tobacco: Never Alcohol Use Standard Drinks/Week Comments No 0 (1 standard drink = 0.6 oz pur e alcohol) Comments Unknown Sex and Gender Information Value Date Recorded Sex Assigned at Not on file Legal Sex Female 5:06 PM EST Gender Identity Not on file Sexual Orientation Not on file documented as of this encounter Miscellaneous Notes * Telephone Encounter - Tony Rodriguez MD - 12/07/2022 9:12 AM EDT NEEDS urgent appt with me this week--pls call * Telephone Encounter - Tony Rodriguez MD - 12/01/2022 6:31 AM EDT Needs f/u this week with any doc--overbook * Telephone Encounter - Tony Rodriguez MD - 11/10/2022 4:34 AM EDT Needs f/u in 1 week with me--overbook ok documented in this encounter Plan of Treatment Not on file documented as of this encounter Visit Diagnoses Not on filedocumented in this encounter Care Teams Motorcycle Mechanic Apprentice Relationship Specialty Start Date End Date Angel Castano MD [address] [place] [id number] PCP - General 02/19/20 documented as of this encounter
--- OUTSIDE RECORDS SUMMARY | 2024-03-06 19:19 | XMS_ITS | Encounter Summary ---
Author Organization [facility] Address [address] [place] [address] Phone Care Team Providers Care Grab Jack Worker Name Role Phone Angel Castano MD Primary Care Provider +1- [phone] Encounter Details Date Type Department Care Team (Late st Contact Info) Description 05/04/2022 Telephone [facility] [address] [place] [phone] Kitty Menezes MA Social History Tobacco Use Types Packs/Day Years [...] encounter Miscellaneous Notes * Telephone Encounter - Kitty Menezes MA - 05/04/2022 4:23 PM EDT Pts pharmacy called they would like clarification on her diltiazem. The quantity and the directionsare conflicting. Please advise Thank you documented in this encounter Plan of Treatment Not on file documented as of this encounter Visit Diagnoses Not on filedocumented in this encounter Care Teams Grab Jack Worker Relationship Specialty Start Date End Date Angel Castano MD [facility] [place] [id number] PCP - General 02/19/20 documented as of this encounter
--- OUTSIDE RECORDS SUMMARY | 2024-03-06 19:19 | XMS_ITS | Referral Summary ---
Author Organization [facility] Address [address] [place] [address] Care Team Providers Care Gis Developer Name Role Phone Patient, Has No Pcp Or Ref Primary Care Provider Unavailable Allergies Active Allergy Reactions Criticality Noted Date Comments Ciprofloxacin Hives 06/10/2021 Social History Tobacco Use Types Packs/Day Years Used Date Smoking Tobacco: Never Assessed Comments Unknown Sex and Gender Information Value Date Recorded Sex Assigned at Not on file Legal Sex Female 2:03 PM EDT Gender Identity Not on file Sexual Orientation Not on file Last Filed Vital Signs Vital Sign Reading Time Taken Comments Blood Pressure 111/85 06/10/2021 6:30 AM EDT Pulse 100 06/10/2021 6:30 AM EDT Temperature 36.8 ??C (98.2 ??F) 06/10/2021 3:28 AM ED T Respiratory Rate 20 06/10/2021 6:30 AM EDT Oxygen Saturation 96% 06/10/2021 6:30 AM EDT Inhaled Oxygen Concentration - - Weight 87.7 kg (193 lb 5.5 oz) 06/10/2021 5:22 A M EDT Height 154.9 cm (5' 1 ) 06/10/2021 3:28 AM EDT Body Mass Index 36.53 06/10/2021 3:28 AM EDT Plan of Treatment Not on file Procedures * Due to [place] state law, this organization might not be sharing negative HIV tests. Procedure Name Priority Date/Time Associated Diagnosis Comments CBC AUTO DIFFERENTIAL STAT 06/10/2021 3:53 AM EDT BASIC METABOLIC PANEL STAT 06/10/2021 3:53 AM EDT from Last 3 Months or Most Recently Relevant to Health Maintenance Results * Due to [place] state law, this organization might not be sharing negative HIV tests. * (ABNORMAL) CBC Auto Differential (06/10/2021 3:53 AM EDT) WBC 8.2 4.3 - 10.8 10*3/uL 06/10/2021 4:37 AM EDT [facility] RBC 4.29 3.80 - 5.10 10*6/uL 06/10/2021 4:37 AM EDT [facility] Hemoglobin 11.8 11.7 - 15.5 g/dL 06/10/2021 4:37 AM EDT [facility] Hematocrit 36.2 35.0 - 46.0 % 06/10/2021 4:37 AM EDT [facility] MCV 84.4 80.0 - 100.0 fL 06/10/2021 4:37 AM EDT [facility] MCH 27.5 27.0 - 34.0 pg 06/10/2021 4:37 AM EDT [facility] MCHC 32.6 29.0 - 36.0 g/dL 06/10/2021 4:37 AM EDT [facility] RDW 19.0(H) 11.0 - 15.0 % 06/10/2021 4:37 AM EDT [facility] Platelets 412 140 - 440 10*3/uL 06/10/2021 4:37 AM EDT [facility] MPV 6.9(L) 7.6 - 11.6 fL 06/10/2021 4:37 AM EDT [facility] Neutrophil % 45.6 % 06/10/2021 4:37 AM EDT [facility] Lymphocyte % 31.0 % 06/10/2021 4:37 AM EDT [facility] Monocyte % 16.3 % 06/10/2021 4:37 AM EDT [facility]BCitiusTech[facility] [employer] [facility] Eosinophil % 6.4 % 06/10/2021 4:37 AM EDT [facility] [employer] [facility] Basophil % 0.7 % 06/10/2021 4:37 AM EDT [facility] [employer] [facility] Neutrophil # 3.74 1.60 - 7.50 10*3/uL 06/10/2021 4:37 AM EDT [facility] TechnologiesSUB[facility] [employer] [facility] Lymphocyte # 2.5 0.9 - 3.4 10*3/uL 06/10/2021 4:37 AM EDT [facility] [employer] [facility] Monocyte # 1.3(H) 0.0 - 1.2 10*3/uL 06/10/2021 4:37 AM EDT [facility] [employer] [facility] Eosinophil # 0.5 0.0 - 0.6 10*3/uL 06/10/2021 4:37 AM EDT [facility] [employer] [facility] Basophil # 0.1 0.0 - 0.3 10*3/uL 06/10/2021 4:37 AM EDT [facility] [employer] [facility] Smear Review? No [place] MANUAL 06/10/2021 4:37 AM EDT [facility]ALTHhField TechnologiesSUB[facility] [employer] [facility] Blood Structure of peripheral vein / Unknown Venipuncture / Unknown 06/10/2021 3:53 AM EDT 06/10/2021 4:20 AM EDT us Francesco Lam MD LAB BLOOD ORDERABLES Final Res ult [facility] [employer] [facility] [address] [place] [address], * (ABNORMAL) BMP - Basic Metabolic Panel (06/10/2021 3:53 AM EDT) NA 135 135 - 145 mmol/L 06/10/2021 4:30 AM EDT [employer] [facility] K 5.3 3.5 - 5.3 mmol/L 06/10/2021 4:30 AM ED [employer] [facility] Cl 97 97 - 110 mmol/L 06/10/2021 4:30 AM [employer] [facility] CO2 26 24 - 32 mmol/L 06/10/2021 4:30 AM [facility] [employer] [facility] BUN 43(H) 7 - 23 mg/dL 06/10/2021 4:30 AM EDT [employer] [facility] Creatinine 2.02(H) 0.50 - 1.20 mg/dL 06/10/2021 4:30 AM ED [employer] [facility] Glucose 107(H) 70 - 99 mg/dL 06/10/2021 4:30 AM [employer] [facility] Calcium 10.1 8.7 - 10.7 mg/dL 06/10/2021 4:30 AM [facility] [employer] [facility] Anion Gap 12 5 - 15 06/10/2021 4:30 AM [employer] [facility] eGFR 28(L) >=90 mL/min/1. 73m2 06/10/2021 4:30 AM [employer] [facility] Comment: Estimated Glomerular Filtration Rate (GFR) calculated using the CKD-EPI refit equation. The different stages of CKD form a continuum. The stages of CKD are classified as follows : Stage 1: Kidney damage with normal or increased GFR (>90 mL/min/1.73 m2) Stage 2: Mild reduction in GFR (60-89 mL/min/1.73 m2) Stage 3a: Moderate reduction in GFR (45-59 mL/min/1.73 m2) Stage 3b: Moderate reduction in GFR (30-44 mL/min/1.73 m2) Stage 4: Severe reduction in GFR (15-29 mL/min/1.73 m2) Stage 5: Kidney failure (GFR < 15 mL/min/1.73 m2 or dialysis) Blood Structure of peripheral vein / Unknown Venipuncture / Unknown 06/10/2021 3:53 AM EDT 06/10/2021 4:01 AM EDT us Francesco Lam MD LAB BLOOD ORDERABLES Final Res ult [facility] [address] [place] [address], [place] from Last 3 Months or Most Recently Relevant to Health Maintenance Insurance MEDICARE [facility] Care Teams Gis Developer Relationship Specialty Start Date End Date Patient, Has No Pcp Or Ref DO NOT EDIT THIS RECORD VIA PROVIDER ON THE FLY PCP - General Process Treater 06/10/21
--- OUTSIDE RECORDS SUMMARY | 2024-03-06 19:19 | XMS_ITS | Clinical Summary ---
Author Organization [facility] Address [address] [place] [address] Care Team Providers Care Hematology Technologist Name Role Phone Patient, Has No Pcp [...] 06/10/2021 3:28 AM EDT Plan of Treatment Health Maintenance Due Date Last Done Comments 25 Hydroxy / Vitamin D 1962 CKD: Referral to Nephrology 1962 Cervical Cancer Screening 1962 Cologuard 1962 Colon Cancer Screening 1962 Colonoscopy 1962 FOBT / Fit Test 1962 HIV Screening 1962 HPV and Pap Smear 1962 Hepatitis C Screening 1962 PTH 1962 Pap Smear 1962 Phosphorus 1962 Sigmoidoscopy 1962 Statin Therapy 1962 Mammogram 2002 Basic Metabolic Panel 10/11/2021 06/10/2021 Urine Microalbumin 04/16/2022 04/16/2021 Hemoglobin 06/10/2022 06/10/2021 COVID-19 Vaccine ( season) 2023 09/23/2020, 05/22/2020, 05/01/2020 Influenza Vaccine (#1) 2023 , 11/02/2019, 10/22/2018, Additional history exists Alcohol/Substance Use Screening 02/09/2024 Depression Screening and Follow-Up 02/09/2024 Social Drivers of Health Annual Screening 02/09/2024 DTaP,Tdap,and Td Vaccines (4 - Td or Tdap) 01/13/2029 01/13/2019, 11/01/2012, 01/27/2010 RSV Vaccine (60+ years old and patients) (1 - 1-dose 75+ series) 2037 Pneumococcal Vaccine: Pediatric (0-5 Years) and At-Risk Patients (6-64 Years) Aged Out 02/18/2015, 03/22/2012, 05/18/2011 No longer eligible based on patient's age to complete this topic Zoster Vaccines Completed 10/22/2018, 08/16/2018 Hepatitis B Vaccines Aged Out No long er eligible based on patient's age to complete this topic Procedures * Due to [place] PPLCONNECT law, this organization might not be sharing negative HIV tests. Procedure Name Priority Date/Time Associated Diagnosis Comments CBC AUTO DIFFERENTIAL STAT 06/10/2021 3:53 AM EDT BASIC METABOLIC PANEL STAT 06/10/2021 3:53 AM EDT from Last 3 Months or Most Recently Relevant to Health Maintenance Results * Due to [place] PPLCONNECT law, this organization might not be sharing negative HIV tests. * (ABNORMAL) CBC Auto Differential (06/10/2021 3:53 AM EDT) WBC 8.2 4.3 - 10.8 10*3/uL 06/10/2021 4:37 AM EDT [facility] RBC 4.29 3.80 - 5.10 10*6/uL 06/10/2021 4:37 AM EDT [facility] Hemoglobin 11.8 11.7 - 15.5 g/dL 06/10/2021 4:37 AM EDT [facility] Hematocrit 36.2 35.0 - 46.0 % 06/10/2021 4:37 AM EDT [facility] MCV 84.4 80.0 - 100.0 fL 06/10/2021 4:37 AM EDT [facility] MCH 27.5 27.0 - 34.0 pg 06/10/2021 4:37 AM EDT [facility] MCHC 32.6 29.0 - 36.0 g/dL 06/10/2021 4:37 AM EDT [facility] RDW 19.0(H) 11.0 - 15.0 % 06/10/2021 4:37 AM EDT [facility] Platelets 412 140 - 440 10*3/uL 06/10/2021 4:37 AM EDT [facility] MPV 6.9(L) 7.6 - 11.6 fL 06/10/2021 4:37 AM EDT [facility] Neutrophil % 45.6 % 06/10/2021 4:37 AM EDT [facility] Lymphocyte % 31.0 % 06/10/2021 4:37 AM EDT [facility] Monocyte % 16.3 % 06/10/2021 4:37 AM EDT [facility] Eosinophil % 6.4 % 06/10/2021 4:37 AM EDT [facility] Basophil % 0.7 % 06/10/2021 4:37 AM EDT [facility] Neutrophil # 3.74 1.60 - 7.50 10*3/uL 06/10/2021 4:37 AM EDT [facility] Lymphocyte # 2.5 0.9 - 3.4 10*3/uL 06/10/2021 4:37 AM EDT [facility] Monocyte # 1.3(H) 0.0 - 1.2 10*3/uL 06/10/2021 4:37 AM EDT [facility] Eosinophil # 0.5 0.0 - 0.6 10*3/uL 06/10/2021 4:37 AM EDT [facility] Basophil # 0.1 0.0 - 0.3 10*3/uL 06/10/2021 4:37 AM EDT [facility] Smear Review? No [place] MAN[facility] 06/10/2021 4:37 AM EDT [facility] Blood Structure of peripheral vein / Unknown Venipuncture / Unknown 06/10/2021 3:53 AM EDT 06/10/2021 4:20 AM EDT us Francesco Lam MD LAB BLOOD ORDERABLES Final Res ult [facility] [address] [place] [address], * (ABNORMAL) BMP - Basic Metabolic Panel (06/10/2021 3:53 AM EDT) NA 135 135 - 145 mmol/L 06/10/2021 4:30 AM EDT [facility] K 5.3 3.5 - 5.3 mmol/L 06/10/2021 4:30 AM EDT [facility] Cl 97 97 - 110 mmol/L 06/10/2021 4:30 AM EDT [facility] CO2 26 24 - 32 mmol/L 06/10/2021 4:30 AM EDT [facility] BUN 43(H) 7 - 23 mg/dL 06/10/2021 4:30 AM EDT [facility] Creatinine 2.02(H) 0.50 - 1.20 mg/dL 06/10/2021 4:30 AM EDT [facility] Glucose 107(H) 70 - 99 mg/dL 06/10/2021 4:30 AM EDT [facility] Calcium 10.1 8.7 - 10.7 mg/dL 06/10/2021 4:30 AM EDT [facility] Anion Gap 12 5 - 15 06/10/2021 4:30 AM T [facility] eGFR 28(L) >=90 mL/min/1. 73m2 06/10/2021 4:30 AM EDT [facility] Comment: Estimated Glomerular Filtration [...] MD LAB BLOOD ORDERABLES Final Res ult [facility] [address] [place] [address], from Last 3 Months or Most Recently Relevant to Health Maintenance Insurance MEDICARE [facility] Care Teams Hematology Technologist Relationship Specialty Start Date End Date Patient, Has No Pcp Or Ref DO NOT EDIT THIS RECORD VIA PROVIDER ON THE FLY PCP - General Repairer Finished Metal 06/10/21
--- OUTSIDE RECORDS SUMMARY | 2024-03-06 19:19 | XMS_ITS | Encounter Summary ---
Author Organization [facility] Address [address] [place] [address] Care Team Providers Care Tooth Cutter Pinion Name Role Phone Valerie Castano MD Primary Care Provider [phone] Encounter Details Date Type Department Care Team (Latest Contact Info) Description 02/07/2024 1:00 PM EST - 02/07/2024 11:59 PM EST Hospital Encounter [facility] Radiation Oncology [address] [id number] Lonnie Mercer MD [address] [place] [address] Lung cancer, middle lobe (CMS/HCC) (Primary Dx) Discharge Disposition: Home or Self Care Social History Tobacco Use Types Packs/Day Years Used Date Smoking Tobacco: Former Cigarettes Smokeless Tobacco: Never Alcohol Use Standard Drinks/Week Comments Yes 0 (1 standard drink = 0.6 oz pur e alcohol) Sex and Gender Information Value Date Recorded Sex Assigned at Not on file Gender Identity Not on file Sexual Orientation Not on file Job Start Date Occupation Industry Not on file Not on file Not on file documented as of this encounter Medications at Time of Discharge Medication Sig Dispensed Refills Start Date End Date acetaminophen (TYLENOL) 325 mg tablet Take 2 tablets (650 mg total) by mouth. 04/08/2015 albuterol HFA (PROAIR HFA ; PROVENTIL HFA ; VENTOLIN HFA) 90 mcg/actuation inhaler Inhale 2 puffs by mouth. 01/06/2010 amitriptyline (ELAVIL) 25 mg tablet Take 1 tablet (25 mg total) by mouth. 05/02/2012 amLODIPine (NORVASC) 5 mg tablet Take 1 tablet (5 mg total) by mouth. aspirin 81 mg EC tablet Take 1 tablet (81 mg total) by mouth 1 (one) time each day. azithromycin (ZITHROMAX) 250 mg tablet Take 1 tablet (250 mg total) by mouth 3 (three) times a week. 01/20/2024 busPIRone (BUSPAR) 5 mg tablet TAKE 1 TABLET BY MOUTH DAILY FOR 7 DAYS. INCREASE TO 1 TABLET 2 TIMES DAILY IF TOLERATED FOR ANXIETY 09/04/2022 calcitrioL (ROCALTROL) 0.25 mcg capsule 05/04/2022 carvediloL (COREG) 3.125 mg tablet Take 1 tablet (3.125 mg total) by mouth 2 (two) times a day. 02/18/2022 citalopram (CeleXA) 20 mg tablet Take 1 tablet (20 mg total) by mouth. 05/02/2012 clonazePAM (KlonoPIN) 1 mg tablet TAKE 1/2 TABLET BY MOUTH EVERY AM AND EVERY AFTERNOON NEEDED FOR ANXIETY AND 1 TABLET BY MOUTH EVERY NIGHT AT BEDTIME NEEDED FOR INSOMNIA 11/08/2022 cyclobenzaprine (FLEXERIL) 10 mg tablet Take 1 tablet (10 mg total) by mouth. diazePAM (VALIUM) 10 mg tablet Take 1 tablet (10 mg total) by mouth. dilTIAZem CD (CARDIZEM CD) 120 mg 24 hr capsule Take 1 capsule (120 mg total) by mouth 1 (one) time each day. doxepin (SINEquan) 25 mg capsule fludrocortisone (FLORINEF) 0.1 mg tablet Take 1 tablet (0.1 mg total) by mouth 2 (two) times a day. fluticasone furoate-vilanteroL (BREO ELLIPTA) 100-25 mcg/dose inhaler INHALE 1 PUFF BY MOUTH DAILY FOR COPD fluticasone propionate (FLONASE) 50 mcg/actuation nasal spray Administer 1 spray into each nostril 1 (one) time each day. 06/21/2008 fluvoxaMINE (LUVOX) 100 mg tablet Take 1 tablet (100 mg total) by mouth 1 (one) time each day in the morning. 09/04/2022 furosemide (LASIX) 40 mg tablet Take 1 tablet (40 mg total) by mouth 1 (one) time each day. gabapentin (NEURONTIN) 100 mg capsule Take 1 capsule (100 mg total) by mouth 2 (two) times a day. 01/08/2022 hydroCHLOROthiazide (MICROZIDE) 12.5 mg capsule Take 1 capsule (12.5 mg total) by mouth. hydrOXYzine HCL (ATARAX) 50 mg tablet TAKE 1/2 TO 1 TABLET BY MOUTH THREE TIMES DAILY NEEDED FOR ANXIETY OR PANIC ATTACKS 08/03/2022 ipratropium-albuteroL (Combivent Respimat) 20-100 mcg/actuation inhaler 1 puff by Other route. Lokelma 10 gram packet MIX AND DRINK 10 GRAMS DAILY 10/26/2023 LORazepam (ATIVAN) 1 mg tablet methadone (DOLOPHINE) 10 mg tablet Take 3 tablets (30 mg total) by mouth. metOLazone (ZAROXOLYN) 2.5 mg tablet 08/10/2022 predniSONE (DELTASONE) 20 mg tablet TAKE 1 TABLET BY MOUTH 2 TIMES A DAY FOR COPD EXCERBATION. 08/10/2023 predniSONE (DELTASONE) 5 mg tablet TAKE 1 TABLET BY MOUTH DAILY FOR COPD 01/21/2024 sodium,potassium,mag sulfates (SUPREP) 17.5-3.13-1.6 gram recon soln bowel prep kit oral solution tiotropium (SPIRIVA) 18 mcg per inhalation capsule Place 1 capsule (18 mcg total) into inhaler and inhale. torsemide (DEMADEX) 20 mg tablet TAKE 2 TABLET BY MOUTH TWICE DAILY 05/04/2022 documented as of this encounter Discharge Disposition Disposition Code Departure Means Destination Home or Self Care documented in this encounter Progress Notes * Lonnie Mercer MD - 02/07/2024 1:00 PM EST Images from the original note were not included. [address] [phone] RADIATION ONCOLOGY FOLLOW-UP Staff Physician: Lonnie Mercer MD Requesting Physician: No ref. provider found Date of Service: 02/07/2024 Diagnosis: No diagnosis found. Stage: Cancer Staging Lung cancer, middle lobe (CMS/HCC) Staging form: Lung, AJCC 8th Edition - Clinical: Stage IB (cT2a, cN0, cM0) - Signed by Lonnie Mercer MD on 12/29/2023 Prior treatment: interval since radiation 4.5 years. 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 Her CT scan at that time was negative for any evidence of progression of disease. Since then she has been at home. She had a repeat CT scan on 01/27/2024: FINDINGS: Again noted is emphysematous disease. Stable bandlike scarring/posttreatment changes in the right middle lobe. No increasing mass or nodularity visualized. Mediastinum appears normal. No abnormal lymphadenopathy. Heart size is normal without effusion. Coronary atherosclerotic disease. Atherosclerotic disease of the aorta without aneurysm. Chest wall appears within normal limits. No abnormal lymphadenopathy is noted. Limited views of the upper abdomen appear within normal limits. Mild degenerative changes of the spine. IMPRESSION: Stable appearance of posttreatment changes in the right chest. She offers no new complaints today. Medications: Current Outpatient Medications on File Prior to Visit Medication Sig Dispense Refill acetaminophen (TYLENOL) 325 mg tablet Take 2 tablets (650 mg total) by mouth. albuterol HFA (PROAIR HFA ; PROVENTIL HFA ; VENTOLIN HFA) 90 mcg/actuation inhaler Inhale 2 puffs by mouth. amitriptyline (ELAVIL) 25 mg tablet Take 1 tablet (25 mg total) by mouth. amLODIPine (NORVASC) 5 mg tablet Take 1 tablet (5 mg total) by mouth. aspirin 81 mg EC tablet Take 1 tablet (81 mg total) by mouth 1 (one) time each day. azithromycin (ZITHROMAX) 250 mg tablet Take 1 tablet (250 mg total) by mouth 3 (three) times a week. busPIRone (BUSPAR) 5 mg tablet TAKE 1 TABLET BY MOUTH DAILY FOR 7 DAYS. INCREASE TO 1 TABLET 2 TIMES DAILY IF TOLERATED FOR ANXIETY calcitrioL (ROCALTROL) 0.25 mcg capsule carvediloL (COREG) 3.125 mg tablet Take 1 tablet (3.125 mg total) by mouth 2 (two) times a day. citalopram (CeleXA) 20 mg tablet Take 1 tablet (20 mg total) by mouth. clonazePAM (KlonoPIN) 1 mg tablet TAKE 1/2 TABLET BY MOUTH EVERY AM AND EVERY AFTERNOON NEEDED FOR ANXIETY AND 1 TABLET BY MOUTH EVERY NIGHT AT BEDTIME NEEDED FOR INSOMNIA cyclobenzaprine (FLEXERIL) 10 mg tablet Take 1 tablet (10 mg total) by mouth. diazePAM (VALIUM) 10 mg tablet Take 1 tablet (10 mg total) by mouth. dilTIAZem CD (CARDIZEM CD) 120 mg 24 hr capsule Take 1 capsule (120 mg total) by mouth 1 (one) timeeach day. doxepin (SINEquan) 25 mg capsule fludrocortisone (FLORINEF) 0.1 mg tablet Take 1 tablet (0.1 mg total) by mouth 2 (two) times a day. fluticasone furoate-vilanteroL (BREO ELLIPTA) 100-25 mcg/dose inhaler INHALE 1 PUFF BY MOUTH DAILY FOR COPD fluticasone propionate (FLONASE) 50 mcg/actuation nasal spray Administer 1 spray into each nostril 1 (one) time each day. fluvoxaMINE (LUVOX) 100 mg tablet Take 1 tablet (100 mg total) by mouth 1 (one) time each day in the morning. furosemide (LASIX) 40 mg tablet Take 1 tablet (40 mg total) by mouth 1 (one) time each day. gabapentin (NEURONTIN) 100 mg capsule Take 1 capsule (100 mg total) by mouth 2 (two) times a day. hydroCHLOROthiazide (MICROZIDE) 12.5 mg capsule Take 1 capsule (12.5 mg total) by mouth. hydrOXYzine HCL (ATARAX) 50 mg tablet TAKE 1/2 TO 1 TABLET BY MOUTH THREE TIMES DAILY NEEDED FORANXIETY OR PANIC ATTACKS ipratropium-albuteroL (Combivent Respimat) 20-100 mcg/actuation inhaler 1 puff by Other route. Lokelma 10 gram packet MIX AND DRINK 10 GRAMS DAILY LORazepam (ATIVAN) 1 mg tablet methadone (DOLOPHINE) 10 mg tablet Take 3 tablets (30 mg total) by mouth. metOLazone (ZAROXOLYN) 2.5 mg tablet predniSONE (DELTASONE) 20 mg tablet TAKE 1 TABLET BY MOUTH 2 TIMES A DAY FOR COPD EXCERBATION. predniSONE (DELTASONE) 5 mg tablet TAKE 1 TABLET BY MOUTH DAILY FOR COPD sodium,potassium,mag sulfates (SUPREP) 17.5-3.13-1.6 gram recon soln bowel prep kit oral solution tiotropium (SPIRIVA) 18 mcg per inhalation capsule Place 1 capsule (18 mcg total) into inhaler and inhale. torsemide (DEMADEX) 20 mg tablet TAKE 2 TABLET BY MOUTH TWICE DAILY No current facility-administered medications on file prior to visit. Imported vital signs, weight Visit Vitals Smoking Status Former No data recorded Physical Exam: No physical examination was performed today. This is simply a telephone visit Impression: 63-year-old woman with a stage Ib non-small cell carcinoma of the right middle lobe of the lung status post SBRT 4 and half years ago she has no evidence of progression of disease or new lesions. At this time it is appropriate for the patient to go back into the general pool at the low-dose CT screening program in our thoracic oncology. She does not need to return here for follow-up. Plan: I instructed the patient to follow-up with her welt sole layer and Enroll in the low-dose CT screening program in our thoracic oncology division. Return to our clinic on as-needed basis Lonnie Mercer MD 02/07/24 11:51 AM EST documented in this encounter Plan of Treatment Not on file documented as of this encounter Visit Diagnoses Diagnosis Lung cancer, middle lobe (CMS/HCC)- Primary Malignant neoplasm of middle lobe, bronchus, or lung documented in this encounter Care Teams Tooth Cutter Pinion Relationship Specialty Start Date End Date Valerie Castano MD [address] [place] [address] PCP - General 05/21/10 documented as of this encounter
--- OUTSIDE RECORDS SUMMARY | 2024-03-06 19:19 | XMS_ITS | Clinical Summary ---
Author Organization [facility] Address [address] [place] [address] [address] [place] [address] Phone Care Team Providers Care Social Media Job Titles Name Role Phone Angel Castano MD Primary Care Provider [phone] Allergies Active Allergy Reactions Criticality Noted Date Comments Ciprofloxacin Other (see comments) 06/20/2020 Nsaids Other (see comments) 06/20/2020 Medications aspirin ([facility]OULEYMANE) 81 MG EC tablet Take 1 tablet by mouth 1 (one) time each day Active clonazePAM (KlonoPIN) 1 MG tablet Take 1 tablet by mouth every 4 (four) hours if needed Active hydrOXYzine (VISTARIL) 50 MG capsule Take 50 mg by mouth at night if needed 1 Active ipratropium-alb uterol (Combivent Respimat) 20-100 MCG/ACT inhaler 1 puff by Other route 4 (four) times a day Active Elastic Bandages & Supports (MIMA Elastic Bandage 4 ) misc 1 Piece 1 (one) time for 1 dose 2 each 1 1 Active albuterol HFA (PROVENTIL HFA;VENTOLIN HFA) 108 (90 Base) MCG/ACT inhaler Inhale 180 mcg 0 Active methadone (DOLOPHINE) 10 MG tablet Take 30 mg by mouth 1 (one) time each day in the morning Active gabapentin (NEURONTIN) 100 MG capsule Take 100 mg by mouth in the morning and 100 mg in the evening. 2 Active carvedilol (COREG) 3.125 MG tablet Take 1 tablet (3.125 mg total) by mouth in the morning and 1 tablet (3.125 mg total) in the evening. 60 tablet 3 3 Active torsemide (DEMADEX) 20 MG tablet Take 1 tablet (20 mg total) by mouth in the morning and 1 tablet (20 mg total) in the evening. 180 tablet 3 3 Active calcitriol (Rocaltrol) 0.25 MCG capsule Take 1 capsule (0.25 mcg total) by mouth 1 (one) time each day 90 capsule 3 3 Active dilTIAZem (CARDIZEM) 120 MG immediate release tablet Take 1 tablet (120 mg total) by mouth in the morning and 1 tablet (120 mg total) in the evening and 1 tablet (120 mg total) before bedtime. 90 tablet 3 3 Active metOLazone 2.5 MG tablet Take 1 tablet (2.5 mg total) by mouth 3 times weekly: Wed and Wednesday morning 45 tablet 3 3 Active fluticasone (FLONASE) 50 MCG/ACT nasal spray Administer 1 spray into each nostril 1 (one) time each day 16 g 3 3 Active Hospital, Clinic, or Other Facility Administered Medication Ordered Dose Route Frequency Start Date End Date Status Epoetin [place]-epbx solution 10,000 UnitsIndications:Iron deficiency anemia, not otherwise specified,Chronic kidney disease, stage 4 (severe) (HCC),Hypertensive chronic kidney disease, unspecified, with chronic kidney disease stage I through stage IV, or unspecified [id number] Units IJ Every 14 days 11/22/2020 Active Active Problems Problem Noted Date Diagnosed Date Chronic kidney disease, stage 4 (severe) 023 Anemia in chronic kidney disease 08/10/2022 Chronic kidney disease 06/20/2020 Hypertensive renal disease 06/20/2020 Myalgia 06/03/2007 Migraine without aura 03/19/2005 Overview (07/16/2021): IMO update Lung involvement associated with another disorde r 03/19/2005 Overview (07/16/2021): IMO update Resolved Problems Problem Noted Date Diagnosed Date Resolved Date Cellulitis of lower limb 06/20/2020 Immunizations Name Administration Dates Next Due Pneumococcal Polysaccharide 03/22/2012, 2 Tdap 01/27/2010 Family History Medical History Relation Comments Diabetes Father Relation Status Comments Father Alive Mother Alive Social History Tobacco Use Types Packs/Day Years Used Date Smoking Tobacco: Former Smokeless Tobacco: Never Tobacco Cessation:Counseling Given: Not Answered Alcohol Use Standard Drinks/Week Comments No 0 (1 standard drink = 0.6 oz pur e alcohol) Comments Unknown Sex and Gender Information Value Date Recorded Sex Assigned at Not on file Legal Sex Female 5:06 PM EST Gender Identity Not on file Sexual Orientation Not on file Last Filed Vital Signs Vital Sign Reading Time Taken Comments Blood Pressure 125/63 11/09/2022 12:57 PM EDT Pulse 77 11/09/2022 12:57 PM EDT Temperature - - Respiratory Rate - - Oxygen Saturation 97% 11/09/2022 12:57 PM EDT Inhaled Oxygen Concentration - - Weight 102 kg (224 lb 3.2 oz) 08/10/2022 2:23 PM EDT Height 154.9 cm (5' 1 ) 04/27/2019 12:00 PM EDT Body Mass Index 42.36 04/27/2019 12:00 PM EDT Plan of Treatment Health Maintenance Due Date Last Done Comments Breast Cancer Screening 1960 Colorectal Cancer Screening: Annual FOBT 05/30/2011 Colorectal Cancer Screening: Colonoscopy 05/30/2011 Colorectal Cancer Screening: Sigmoidoscopy 05/30/2011 Pneumococcal Vaccine: Pediatrics (0 to 5 Years) and At-Risk Patients (6 to 64 Years) (3 of 3 - PCV) 03/22/2013 03/22/2012, 05/18/2011 Influenza Vaccine (#1) 2023 Hepatitis B Vaccine Aged Out No longe r eligible based on patient's age to complete this topic Insurance MEDICARE MEDICAID [place] [address] [place] [address] MEDICARE MEDICAID [place] Care Teams Social Media Job Titles Relationship Specialty Start Date End Date Angel Castano MD [address] [place] [address] [facility] - General 02/19/20
--- OUTSIDE RECORDS SUMMARY | 2024-03-06 19:19 | XMS_ITS | Clinical Summary ---
Author Organization [facility] Address [address] [place] [address] Phone Care Team Providers Care Switcher Name Role Phone Valerie Castano MD Primary Care Provider [phone] Allergies Active Allergy Reactions Criticality Noted Date Comments Ciprofloxacin Anaphylaxis,Hives,U nknown,Other High 03/19/2005 difficulty swallowing Nsaids (Non-Steroidal Anti-Inflammatory Drug) Other 03/16/2012 Cannot take due to kidney disease Medications Medication Sig Dispensed Refills Start Date End Date Status cyclobenzaprine (FLEXERIL) 10 mg tablet Take 1 tablet (10 mg total) by mouth. Active clonazePAM (KlonoPIN) 1 mg tablet TAKE 1/2 TABLET BY MOUTH EVERY AM AND EVERY AFTERNOON NEEDED FOR ANXIETY AND 1 TABLET BY MOUTH EVERY NIGHT AT BEDTIME NEEDED FOR INSOMNIA 11/08/2022 Active dilTIAZem CD (CARDIZEM CD) 120 mg 24 hr capsule Take 1 capsule (120 mg total) by mouth 1 (one) time each day. Active acetaminophen (TYLENOL) 325 mg tablet Take 2 tablets (650 mg total) by mouth. 04/08/2015 Active albuterol HFA (PROAIR HFA ; PROVENTIL HFA ; VENTOLIN HFA) 90 mcg/actuation inhaler Inhale 2 puffs by mouth. 01/06/2010 Active amitriptyline (ELAVIL) 25 mg tablet Take 1 tablet (25 mg total) by mouth. 05/02/2012 Active amLODIPine (NORVASC) 5 mg tablet Take 1 tablet (5 mg total) by mouth. Active aspirin 81 mg EC tablet Take 1 tablet (81 mg total) by mouth 1 (one) time each day. Active azithromycin (ZITHROMAX) 250 mg tablet Take 1 tablet (250 mg total) by mouth 3 (three) times a week. 01/20/2024 Active busPIRone (BUSPAR) 5 mg tablet TAKE 1 TABLET BY MOUTH DAILY FOR 7 DAYS. INCREASE TO 1 TABLET 2 TIMES DAILY IF TOLERATED FOR ANXIETY 09/04/2022 Active calcitrioL (ROCALTROL) 0.25 mcg capsule 05/04/2022 Active carvediloL (COREG) 3.125 mg tablet Take 1 tablet (3.125 mg total) by mouth 2 (two) times a day. 02/18/2022 Active citalopram (CeleXA) 20 mg tablet Take 1 tablet (20 mg total) by mouth. 05/02/2012 Active diazePAM (VALIUM) 10 mg tablet Take 1 tablet (10 mg total) by mouth. Active doxepin (SINEquan) 25 mg capsule Active fluticasone propionate (FLONASE) 50 mcg/actuation nasal spray Administer 1 spray into each nostril 1 (one) time each day. 06/21/2008 Active fludrocortisone (FLORINEF) 0.1 mg tablet Take 1 tablet (0.1 mg total) by mouth 2 (two) times a day. Active fluticasone furoate-vilanteroL (BREO ELLIPTA) 100-25 mcg/dose inhaler INHALE 1 PUFF BY MOUTH DAILY FOR COPD Active fluvoxaMINE (LUVOX) 100 mg tablet Take 1 tablet (100 mg total) by mouth 1 (one) time each day in the morning. 09/04/2022 Active furosemide (LASIX) 40 mg tablet Take 1 tablet (40 mg total) by mouth 1 (one) time each day. Active gabapentin (NEURONTIN) 100 mg capsule Take 1 capsule (100 mg total) by mouth 2 (two) times a day. 01/08/2022 Active hydroCHLOROthiazide (MICROZIDE) 12.5 mg capsule Take 1 capsule (12.5 mg total) by mouth. Active hydrOXYzine HCL (ATARAX) 50 mg tablet TAKE 1/2 TO 1 TABLET BY MOUTH THREE TIMES DAILY NEEDED FOR ANXIETY OR PANIC ATTACKS 08/03/2022 Active ipratropium-albutero L (Combivent Respimat) 20-100 mcg/actuation inhaler 1 puff by Other route. Active LORazepam (ATIVAN) 1 mg tablet Active methadone (DOLOPHINE) 10 mg tablet Take 3 tablets (30 mg total) by mouth. Active metOLazone (ZAROXOLYN) 2.5 mg tablet 08/10/2022 Active predniSONE (DELTASONE) 20 mg tablet TAKE 1 TABLET BY MOUTH 2 TIMES A DAY FOR COPD EXCERBATION. 08/10/2023 Active predniSONE (DELTASONE) 5 mg tablet TAKE 1 TABLET BY MOUTH DAILY FOR COPD 01/21/2024 Active Lokelma 10 gram packet MIX AND DRINK 10 GRAMS DAILY 10/26/2023 Active sodium,potassium,mag sulfates (SUPREP) 17.5-3.13-1.6 gram recon soln bowel prep kit oral solution Active tiotropium (SPIRIVA) 18 mcg per inhalation capsule Place 1 capsule (18 mcg total) into inhaler and inhale. 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 HTN (hypertension) 01/31/2024 Chronic back pain 01/31/2024 Lung cancer, middle lobe 12/29/2023 Cancer Staging:Clinical:Stage IB(cT2a, cN0, cM0) - Signed by Lonnie Mercer MD on 12/29/2023 Anemia in chronic kidney disease 08/10/2022 Chronic kidney disease, stage 4 (severe) 023 Hypertensive renal disease 06/20/2020 Degenerative arthritis of lumbar spine 0 Trochanteric bursitis 04/03/2009 Lumbago 05/10/2008 Torticollis 07/08/2007 Myalgia 06/03/2007 Spasm of muscle 06/03/2007 Tobacco use disorder 02/06/2006 Cervicalgia 03/19/2005 Insomnia, unspecified 03/19/2005 Lung involvement associated with another disorde r 03/19/2005 Overview (01/31/2024): IMO update Migraine without aura 03/19/2005 Overview (01/31/2024): IMO update Encounters Date Type Department Care Team Description 02/07/2024 1:00 PM EST - 02/07/2024 11:59 PM EST Hospital Encounter [facility] Radiation Oncology [address] [phone] Lonnie Mercer MD Lung cancer, middle lobe (CMS/HCC) (Primary Dx) Discharge Disposition: Home or Self Care 01/27/2024 3:22 PM EST - 01/27/2024 11:59 PM EST Hospital Encounter [facility] CT Scan [address] [place] [phone] Lung cancer, middle lobe (CMS/HCC) Discharge Disposition: Home or Self Care 01/18/2024 Telephone [facility] Radiation Oncology [address] [phone] Majo Navas MA from Last 3 Months Surgical History Surgery Date Site/Laterality Comments OTHER SURGICAL HISTORY - 1989 PROCEDURE: CA CAUTERY CERVIX CRYOCAUTERY INITIAL/REPEAT; COMMENT: for abnormal pap OTHER SURGICAL HISTORY PROCEDURE: CA LIG/TRNSXJ FLP TUBE ABDL/VAG APPR UNI/BI OTHER SURGICAL HISTORY 2012 PROCEDURE: CA EXPLORATORY LAPAROTOMY CELIOTOMY W/WO BIOPSY SPX; COMMENT: laparoscopy for ? hernia, no hernia found Medical History Medical History Date Comments Migraine without aura, witho ut mention of intractable migraine without mention of status migrainosus 03/19/2005 DX:Migraine without aura , without mention of intractable migraine without mention of status migrainosus Lung involvement in other di seases classified elsewhere 03/19/2005 DX:Lung involvement in other diseases classified elsewhere Insomnia, unspecified 03/19/2005 DX:Insomni a, unspecified Cervicalgia 03/19/2005 DX:Cervicalgia Lumbago 05/10/2008 DX:Lumbago Degenerative arthritis of lumbar spine 04/29/2009 DX:Degenerative arthritis of lumbar spine Anemia in chronic kidney disease 08/10/2022 HTN (hypertension) 01/31/2024 Hypertensive renal disease 06/20/2020 Family History Medical History Relation Name Comments Breast cancer Aunt 1 maternal and p aternal ages unknown Ovarian cancer Aunt 2 maternal and paternal ages unknown Cataracts Father Diabetes Father Other: colorectal cancer Grandparent mat leslie grandfather Arthritis Maternal Grandmother Arthritis Mother Mental illness Mother Other: Other Mother conor Diabetes Sister Blindness Neg Hx Glaucoma Neg Hx Macular degeneration Neg Hx Strabismus Neg Hx Relation Name Status Comments Aunt 1 Aunt 2 Father Grandparent Maternal Grandmother Mother Sister Social History Tobacco Use Types Packs/Day Years [...] file Not on file Not on file Obstetrics History Para Term AB IAB SAB Ectopic Multiple Livin g Live Births 5 3 3 2 1 1 3 3 Date Outcome GA Total Labor Labor/2nd/3rd Weight Sex Type Anes PTL Katie A1 A5 Name Clin Term Living Term Living Term Living SAB IAB Plan of Treatment Health Maintenance Due Date Last Done Comments Cervical Cancer Screening: Pap Smear 05/30/1983 Breast Cancer Screening 07/28/2020 07/29/19 19, 07/27/2017, 07/20/2016 Cholesterol Screening (Lipid Panel) 01/11/2022 Depression Screening 01/11/2022 HIV Screening 01/11/2022 Hepatitis C Screening 01/11/2022 Medicare Annual Wellness Visit 01/11/2022 Social Influencers of Health Screening 01/11/2022 RSV Immunization Patients 60+ Years Old (1 - Risk 60-74 years 1-dose series) 2022 Hypertension/CHF/CAD Annual BMP Blood Test 01/28/2024 06/10/2021 Colorectal Cancer Screening: FIT-DNA (Cologuard) 10/26/2025 10/26/2022, 10/26/2022 Pneumococcal Vaccine: Pediatrics (0 to 5 Years) and At-Risk Patients (6 to 64 Years) (4 of 4 - PPSV23 or PCV20) 05/30/2027 02/18/2015, 03/22/2012, 05/18/2011 DTaP,Tdap,and Td Vaccines (4 - Td or Tdap) 01/13/2029 01/13/2019, 11/01/2012, 01/27/2010 Zoster Vaccines Completed 10/22/2018, 08/16/2018 COVID-19 Vaccine Completed 12/05/2023, , 12/26/2021, Additional history exists Influenza Vaccine Completed 12/05/2023, , 10/03/2021, Additional history exists HIB Vaccines Aged Out No longer eligi ble based on patient's age to complete this topic HPV Vaccines Aged Out No longer eligi ble based on patient's age to complete this topic Hepatitis A Vaccines Aged Out No long er eligible based on patient's age to complete this topic Hepatitis B Vaccines Aged Out No long er eligible based on patient's age to complete this topic IPV Vaccines Aged Out No longer eligi ble based on patient's age to complete this topic MMR Vaccines Aged Out No longer eligi ble based on patient's age to complete this topic Meningococcal ACWY Vaccine Aged Out N o longer eligible based on patient's age to complete this topic RSV Immunization Patients Under 20 months Aged Out No longer eligible based on patient's age to complete this topic Varicella Vaccines Aged Out No longer eligible based on patient's age to complete this topic Procedures Procedure Name Priority Date/Time Associated Diagnosis Comments CT CHEST WO CONTRAST Routine 01/27/2024 3:32 PM EST Lung cancer, middle lobe (CMS/HCC) SCR MAMMO BI INCL CAD Routine 07/28/2018 5:03 PM EDT Encounter for screening mammogram for malignant neoplasm of breast from Last 3 Months or Most Recently Relevant to Health Maintenance Results * CT Chest wo Contrast (01/27/2024 3:32 PM EST) Anatomical Region Laterality Modality Body Computed Tomogra phy 01/28/2024 3:05 PM EST Impressions 01/28/2024 3:13 PM EST Stable appearance of posttreatment changes in the right chest. -------- FINAL REPORT -------- Dictated By: Reilly Javier Dictated Date: 01/28/2024 15:05 ET Assigned Physician: Reilly Javier Reviewed and Electronically Signed By: Reilly Javier Signed Date: 01/28/2024 15:13 ET Workstation ID: [id number] Transcribed By: Self Edit Transcribed Date: 01/28/2024 15:05 ET Narrative 01/28/2024 3:[address] chest without contrast HISTORY: Non-small cell lung cancer. ??Assess treatment response. COMPARISON: CT chest May 2023. ??CT chest May 2022. TECHNIQUE: Noncontrast CT was performed of the chest. ??Reformatted images were provided. DOSE: CTDIvol: 24.4/32.3mGy. ??Total exam DLP: 1327.9mGy-cm FINDINGS: Again noted is emphysematous disease. ??Stable bandlike scarring/posttreatment changes in the right middle lobe. ??No increasing mass or nodularity visualized. Mediastinum appears normal. ??No abnormal lymphadenopathy. ??Heart size is normal without effusion. ??Coronary atherosclerotic disease. ??Atherosclerotic disease of the aorta without aneurysm. Chest wall appears within normal limits. ??No abnormal lymphadenopathy is noted. Limited views of the upper abdomen appear within normal limits. Mild degenerative changes of the spine. Procedure Note Reilly Javier MD - 01/28/2024 CT chest without contrast HISTORY: Non-small cell lung cancer. Assess treatment response. COMPARISON: CT chest May 2023. CT chest May 2022. TECHNIQUE: Noncontrast CT was performed of the chest. Reformatted imageswere provided. DOSE: CTDIvol: 24.4/32.3mGy. Total exam DLP: 1327.9mGy-cm FINDINGS: Again noted is emphysematous disease. Stable bandlikescarring/posttreatment changes in the right middle lobe. No increasingmass or nodularity visualized. Mediastinum appears normal. No abnormal lymphadenopathy. Heart size isnormal without effusion. Coronary atherosclerotic disease.Atherosclerotic disease of the aorta without aneurysm. Chest wall appears within normal limits. No abnormal lymphadenopathy isnoted. Limited views of the upper abdomen appear within normal limits. Mild degenerative changes of the spine. IMPRESSION: Stable appearance of posttreatment changes in the right chest. -------- FINAL REPORT -------- Dictated By: Reilly Javier Dictated Date: 01/28/2024 15:05 ET Assigned Physician: Reilly Javier Reviewed and Electronically Signed By: Reilly Javier Signed Date: 01/28/2024 15:13 ET Workstation ID: [id number] Transcribed By: Self Edit Transcribed Date: 01/28/2024 15:05 ET Lonnie Mercer MD IMG CT PROCEDURES * SCR MAMMO BI INCL CAD (07/28/2018 5:03 PM EDT) Anatomical Region Laterality Modality Radiographic Alis ging 07/27/2017 5:14 PM EDT Narrative 07/29/2018 9:36 AM EDT This is a summary report. The complete report is available in the patient's medical record. If you cannot access the medical record, please contact the sending organization for a detailed fax or copy. Full field digital screening mammography, reviewed with CAD and compared to previous. ??The breasts are composed of fatty and fibroglandular tissue. ??No suspicious mass, architectural distortion or suspicious calcifications are identified. IMPRESSION: : No mammographic evidence of malignancy. BIRADS 1-Negative; N. 5 year breast cancer risk assessment 0.8 % Lifetime breast cancer risk assessment 5.3 % Breast cancer risk category Low (<15%) Procedure Note Nuvia Westfall MD - 01/27/2022 This is a summary report. The complete report is available in thepatient's medical record. If you cannot access the medical record, pleasecontact the sending organization for a detailed fax or copy. Full field digital screening mammography, reviewed with CAD and comparedto previous. The breasts are composed of fatty and fibroglandular tissue.No suspicious mass, architectural distortion or suspicious calcificationsare identified. IMPRESSION: : No mammographic evidence of malignancy. BIRADS 1-Negative; N. 5 year breast cancer risk assessment 0.8 % Lifetime breast cancer risk assessment 5.3 % Breast cancer risk category Low (<15%) Valerie Castano MD IMG XR PROCEDURES from Last 3 Months or Most Recently Relevant to Health Maintenance Care Teams Switcher Relationship Specialty Start Date End Date Valerie Castano MD [address] [place] [address] PCP - General 05/21/10
== END 2024-03-06 15:58 | disposition home or self-care (01) ==
PROVIDERS: PCP Internal Medicine; Visit Provider Internal Medicine
DX: E66.01 Morbid (severe) obesity due to excess calories (principal); J44.9 Chronic obstructive pulmonary disease, unspecified; J96.91 Respiratory failure, unspecified with hypoxia
CPT/HCPCS: 99213

== ENCOUNTER → 2024-03-06 15:10 | Outpatient (BNVA) | payer MEDICARE, MEDICAID, SELFPAY | PROVIDERS: PCP Internal Medicine; Visit Provider Internal Medicine | DX: J44.9 Chronic obstructive pulmonary disease, unspecified (principal); J96.91 Respiratory failure, unspecified with hypoxia; E66.01 Morbid (severe) obesity due to excess calories; Z79.52 Long term (current) use of systemic steroids; Z99.81 Dependence on supplemental oxygen; Z87.891 Personal history of nicotine dependence; Z68.41 Body mass index [BMI] 40.0-44.9, adult | CPT/HCPCS: 99212 ==

== ENCOUNTER 2024-04-14 12:42 | Outpatient (REF) | payer MEDICARE, SELFPAY ==
--- OUTSIDE RECORDS SUMMARY | 2024-04-14 14:16 | XMS_ITS | Clinical Summary ---
Author Organization [facility] Address [address] [place] [address] Care Team Providers Care Bank Sales And Service Manager Name Role Phone Patient, Has No Pcp [...] Phosphorus 1962 Sigmoidoscopy 1962 Statin Therapy 1962 Medicare AWV 05/30/1963 Mammogram 2002 Pneumococcal Vaccine: 50+ Years (3 of 3 - PCV20 or PCV21) 02/19/2020 02/18/2015, 03/22/2012, 05/18/2011 Basic Metabolic Panel 10/11/2021 06/10/2021 Urine Microalbumin [...] patients) (1 - 1-dose 75+ series) 2037 Zoster Vaccines Completed 10/22/2018, 08/16/2018 Hepatitis B Vaccines Aged Out No long er eligible based on patient's age to complete this topic Procedures * Due to [place] UEIS law, this organization might not be sharing negative HIV tests. Procedure Name Priority Date/Time Associated Diagnosis Comments CBC AUTO DIFFERENTIAL STAT 06/10/2021 3:53 AM EDT BASIC METABOLIC PANEL STAT 06/10/2021 3:53 AM EDT from Last 3 Months or Most Recently Relevant to Health Maintenance Results * Due to [place] UEIS law, this organization might not be sharing negative HIV tests. * (ABNORMAL) CBC Auto Differential (06/10/2021 3:53 AM EDT) WBC 8.2 4.3 - 10.8 10*3/uL 06/10/2021 4:37 AM EDT [facility] RBC 4.29 3.80 - 5.10 10*6/uL 06/10/2021 4:37 AM EDT [facility] Hemoglobin 11.8 11.7 - 15.5 g/dL 06/10/2021 4:37 AM EDT [facility] Hematocrit 36.2 35.0 - 46.0 % 06/10/2021 4:37 AM EDT [facility] MCV 84.4 80.0 - 100.0 fL 06/10/2021 4:37 AM EDT [facility] MCH 27.5 27.0 - 34.0 pg 06/10/2021 4:37 AM EDT [facility] MCHC 32.6 29.0 - 36.0 g/dL 06/10/2021 4:37 AM EDT [facility] RDW 19.0(H) 11.0 - 15.0 % 06/10/2021 4:37 AM EDT [facility] Platelets 412 140 - 440 10*3/uL 06/10/2021 4:37 AM EDT [facility] MPV 6.9(L) 7.6 - 11.6 fL 06/10/2021 4:37 AM EDT [facility] Neutrophil % 45.6 % 06/10/2021 4:37 AM EDT [facility] Lymphocyte % 31.0 % 06/10/2021 4:37 AM EDT [facility] Monocyte % 16.3 % 06/10/2021 4:37 AM EDT [facility] Eosinophil % 6.4 % 06/10/2021 4:37 AM EDT [facility] Basophil % 0.7 % 06/10/2021 4:37 AM EDT [facility] [employer] [facility] Neutrophil # 3.74 1.60 - 7.50 10*3/uL 06/10/2021 4:37 AM EDT [facility] [employer] [facility] Lymphocyte # 2.5 0.9 - 3.4 10*3/uL 06/10/2021 4:37 AM EDT [facility] [employer] [facility] Monocyte # 1.3(H) 0.0 - 1.2 10*3/uL 06/10/2021 4:37 AM EDT [employer] (P)[facility] [employer] [facility] Eosinophil # 0.5 0.0 - 0.6 10*3/uL 06/10/2021 4:37 AM EDT [facility] [employer] [facility] Basophil # 0.1 0.0 - 0.3 10*3/uL 06/10/2021 4:37 AM EDT [facility] [employer] [facility] Smear Review? No [facility] 06/10/2021 4:37 AM EDT [employer] (P)[facility] [employer] [facility] Blood Structure of peripheral vein / Unknown Venipuncture / Unknown 06/10/2021 3:53 AM EDT 06/10/2021 4:20 AM EDT us Francesco Lam MD LAB BLOOD ORDERABLES Final Res ult [facility] [employer] [facility] [address] [place] [address], * (ABNORMAL) BMP - Basic Metabolic Panel (06/10/2021 3:53 AM EDT) NA 135 135 - 145 mmol/L 06/10/2021 4:30 AM EDT [employer] (P)[facility] [employer] [facility] K 5.3 3.5 - 5.3 mmol/L 06/10/2021 4:30 AM EDT [employer] (P)[facility] [employer] [facility] Cl 97 97 - 110 mmol/L 06/10/2021 4:30 AM EDT [employer] [facility] CO2 26 24 - 32 mmol/L 06/10/2021 4:30 AM EDT [employer] [facility] BUN 43(H) 7 - 23 mg/dL 06/10/2021 4:30 AM EDT [facility] [facility] Creatinine 2.02(H) 0.50 - 1.20 mg/dL 06/10/2021 4:30 AM EDT [facility] Glucose 107(H) 70 - 99 mg/dL 06/10/2021 4:30 AM EDT [employer] [facility] Calcium 10.1 8.7 - 10.7 mg/dL 06/10/2021 4:30 AM EDT [employer] [facility] Anion Gap 12 5 - 15 06/10/2021 4:30 AM EDT [employer] [facility] eGFR 28(L) >=90 mL/min/1. 73m2 06/10/2021 4:30 AM EDT [facility] Comment: Estimated Glomerular Filtration [...] [facility] [address] [place] [address], from Last 3 Months or Most Recently Relevant to Health Maintenance Insurance [address] [facility] [place] [address] MEDICARE [facility] Care Teams Bank Sales And Service Manager Relationship Specialty Start Date End Date Patient, Has No Pcp Or Ref DO NOT EDIT THIS RECORD VIA PROVIDER ON THE FLY PCP - General Health Policy Manager 06/10/21
--- OUTSIDE RECORDS SUMMARY | 2024-04-14 14:16 | XMS_ITS | Referral Summary ---
Author Organization [facility] Address [address] [place] [address] Care Team Providers Care Iuss Analyst Name Role Phone Patient, Has No Pcp [...] Not on file Procedures * Due to [place] state law, this organization might not be sharing negative HIV tests. Procedure Name Priority Date/Time Associated Diagnosis Comments CBC AUTO DIFFERENTIAL STAT 06/10/2021 3:53 AM EDT BASIC METABOLIC PANEL STAT 06/10/2021 3:53 AM EDT from Last 3 Months or Most Recently Relevant to Health Maintenance Results * Due to [place] state law, this organization might not be [...] % 16.3 % 06/10/2021 4:37 AM EDT [facility] [employer] [facility] Eosinophil % 6.4 % 06/10/2021 4:37 AM EDT [facility] [employer] [facility] Basophil % 0.7 % 06/10/2021 4:37 AM EDT [facility] [employer] [facility] Neutrophil # 3.74 1.60 - 7.50 10*3/uL 06/10/2021 4:37 AM EDT [facility] [employer] [facility] Lymphocyte # 2.5 0.9 - 3.4 10*3/uL 06/10/2021 4:37 AM EDT [facility] [employer] [facility] Monocyte # 1.3(H) 0.0 - 1.2 10*3/uL 06/10/2021 4:37 AM EDT [facility] [employer] [facility] Eosinophil # 0.5 0.0 - 0.6 10*3/uL 06/10/2021 4:37 AM EDT [facility] [employer] [facility] Basophil # 0.1 0.0 - 0.3 10*3/uL 06/10/2021 4:37 AM EDT [facility] [employer] [facility] Smear Review? No [facility] 06/10/2021 4:37 AM EDT [facility] [employer] [facility] Blood Structure of peripheral vein / Unknown Venipuncture / Unknown 06/10/2021 3:53 AM EDT 06/10/2021 4:20 AM EDT us Francesco Lam MD LAB BLOOD ORDERABLES Final Res ult [facility] [employer] [facility] [address] [place] [address], * (ABNORMAL) BMP - Basic Metabolic Panel (06/10/2021 3:53 AM EDT) NA 135 135 - 145 mmol/L 06/10/2021 4:30 AM EDT [facility] K 5.3 3.5 - 5.3 mmol/L 06/10/2021 4:30 AM ED [employer] [facility] Cl 97 97 - 110 mmol/L 06/10/2021 4:30 AM [employer] [facility] CO2 26 24 - 32 mmol/L 06/10/2021 4:30 AM [facility] [employer] [facility] BUN 43(H) 7 - 23 mg/dL 06/10/2021 4:30 AM EDT [employer] [facility] Creatinine 2.02(H) 0.50 - 1.20 mg/dL 06/10/2021 4:30 AM ED [employer] [facility] Glucose 107(H) 70 - 99 mg/dL 06/10/2021 4:30 AM [employer] [facility] Calcium 10.1 8.7 - 10.7 mg/dL 06/10/2021 4:30 AM [facility] [employer] [facility] Anion Gap 12 5 - 15 06/10/2021 4:30 AM [employer] [facility] eGFR 28(L) >=90 mL/min/1. 73m2 06/10/2021 4:30 AM [employer] [facility] Comment: Estimated Glomerular Filtration [...] [facility] [address] [place] [address], [place] from Last 3 Months or Most Recently Relevant to Health Maintenance Insurance MEDICARE [facility] Care Teams Iuss Analyst Relationship Specialty Start Date End Date Patient, Has No Pcp Or Ref DO NOT EDIT THIS RECORD VIA PROVIDER ON THE FLY PCP - General Pump Operator [employer] 06/10/21
--- OUTSIDE RECORDS SUMMARY | 2024-04-14 14:16 | XMS_ITS | Clinical Summary ---
Author Organization [facility] Address [address] [place] [address] Phone Care Team Providers Care Security Representative Name Role Phone Valerie Castano MD Primary Care Provider Allergies Active Allergy Reactions Criticality Noted Date Comments Ciprofloxacin Anaphylaxis,Hives,U nknown,Other High 03/19/2005 difficulty swallowing Nsaids (Non-Steroidal Anti-Inflammatory Drug) Other 03/16/2012 Cannot take due to kidney disease Medications cyclobenzaprine (FLEXERIL) 10 mg tablet Take 1 tablet (10 mg total) by mouth. Active clonazePAM (KlonoPIN) 1 mg tablet TAKE 1/2 TABLET BY MOUTH EVERY AM AND EVERY AFTERNOON NEEDED FOR ANXIETY AND 1 TABLET BY MOUTH EVERY NIGHT AT BEDTIME NEEDED FOR INSOMNIA 3 Active dilTIAZem CD (CARDIZEM CD) 120 mg 24 hr capsule Take 1 capsule (120 mg total) by mouth 1 (one) time each day. Active acetaminophen (TYLENOL) 325 mg tablet Take 2 tablets (650 mg total) by mouth. 6 Active albuterol HFA (PROAIR HFA ; PROVENTIL HFA ; VENTOLIN HFA) 90 mcg/actuation inhaler Inhale 2 puffs by mouth. 0 Active amitriptyline (ELAVIL) 25 mg tablet Take 1 tablet (25 mg total) by mouth. 3 Active amLODIPine (NORVASC) 5 mg tablet Take 1 tablet (5 mg total) by mouth. Active aspirin 81 mg EC tablet Take 1 tablet (81 mg total) by mouth 1 (one) time each day. Active azithromycin (ZITHROMAX) 250 mg tablet Take 1 tablet (250 mg total) by mouth 3 (three) times a week. 4 Active busPIRone (BUSPAR) 5 mg tablet TAKE 1 TABLET BY MOUTH DAILY FOR 7 DAYS. INCREASE TO 1 TABLET 2 TIMES DAILY IF TOLERATED FOR ANXIETY 3 Active calcitrioL (ROCALTROL) 0.25 mcg capsule 3 Active carvediloL (COREG) 3.125 mg tablet Take 1 tablet (3.125 mg total) by mouth 2 (two) times a day. 3 Active citalopram (CeleXA) 20 mg tablet Take 1 tablet (20 mg total) by mouth. 3 Active diazePAM (VALIUM) 10 mg tablet Take 1 tablet (10 mg total) by mouth. Active doxepin (SINEquan) 25 mg capsule Active fluticasone propionate (FLONASE) 50 mcg/actuation nasal spray Administer 1 spray into each nostril 1 (one) time each day. 9 Active fludrocortisone (FLORINEF) 0.1 mg tablet Take 1 tablet (0.1 mg total) by mouth 2 (two) times a day. Active fluticasone furoate-vilante roL (BREO ELLIPTA) 100-25 mcg/dose inhaler INHALE 1 PUFF BY MOUTH DAILY FOR COPD Active fluvoxaMINE (LUVOX) 100 mg tablet Take 1 tablet (100 mg total) by mouth 1 (one) time each day in the morning. 3 Active furosemide (LASIX) 40 mg tablet Take 1 tablet (40 mg total) by mouth 1 (one) time each day. Active gabapentin (NEURONTIN) 100 mg capsule Take 1 capsule (100 mg total) by mouth 2 (two) times a day. 2 Active hydroCHLOROthia zide (MICROZIDE) 12.5 mg capsule Take 1 capsule (12.5 mg total) by mouth. Active hydrOXYzine HCL (ATARAX) 50 mg tablet TAKE 1/2 TO 1 TABLET BY MOUTH THREE TIMES DAILY NEEDED FOR ANXIETY OR PANIC ATTACKS 3 Active ipratropium-alb uteroL (Combivent Respimat) 20-100 mcg/actuation inhaler 1 puff by Other route. Active LORazepam (ATIVAN) 1 mg tablet Active methadone (DOLOPHINE) 10 mg tablet Take 3 tablets (30 mg total) by mouth. Active metOLazone (ZAROXOLYN) 2.5 mg tablet 3 Active predniSONE (DELTASONE) 20 mg tablet TAKE 1 TABLET BY MOUTH 2 TIMES A DAY FOR COPD EXCERBATION. 4 Active predniSONE (DELTASONE) 5 mg tablet TAKE 1 TABLET BY MOUTH DAILY FOR COPD 4 Active Lokelma 10 gram packet MIX AND DRINK 10 GRAMS DAILY 4 Active sodium,potassiu m,mag sulfates (SUPREP) 17.5-3.13-1.6 gram recon soln bowel prep kit oral solution Active tiotropium (SPIRIVA) 18 mcg per inhalation capsule Place 1 capsule (18 mcg total) into inhaler and inhale. Active torsemide (DEMADEX) 20 mg tablet TAKE 2 TABLET BY MOUTH TWICE DAILY 3 Active Active Problems Problem Noted Date Diagnosed [...] - 02/07/2024 11:59 PM EST Hospital Encounter [facility] Radiation Oncology [address] [phone] Lonnie Mercer MD Lung cancer, middle lobe (CMS/HCC) (Primary Dx) Discharge Disposition: Home or Self Care 01/27/2024 3:22 PM EST - 01/27/2024 11:59 PM EST Hospital Encounter [facility] CT Scan [address] [place] [phone] Lung cancer, middle lobe (CMS/HCC) Discharge Disposition: Home or Self Care 01/18/2024 Telephone [facility] Radiation Oncology [address] [phone] Majo Navas MA from Last 3 Months Surgical History Surgery Date Site/Laterality Comments OTHER SURGICAL HISTORY - 1989 PROCEDURE: SD CAUTERY CERVIX CRYOCAUTERY INITIAL/REPEAT; COMMENT: for abnormal pap OTHER SURGICAL HISTORY PROCEDURE: SD LIG/TRNSXJ FLP TUBE ABDL/VAG APPR UNI/BI OTHER SURGICAL HISTORY 2012 PROCEDURE: SD EXPLORATORY LAPAROTOMY CELIOTOMY W/WO BIOPSY SPX; COMMENT: [...] Mother Mental illness Mother Other: Other Mother mirgaine Diabetes Sister Blindness Neg Hx Glaucoma Neg [...] at Not on file Legal Sex Female 1:08 AM EST Gender Identity Not on file Sexual Orientation Not on file Obstetrics History Para Term AB IAB SAB Ectopic Multiple Livin g Live Births 5 3 3 2 1 1 3 3 Date Outcome GA Total Labor Labor//3rd Weight Sex Type Anes PTL Katie A1 A5 Name Clin Term Living Term Living Term Living SAB IAB Plan of Treatment Health Maintenance Due Date Last Done Comments Cervical Cancer Screening: Pap Smear 05/30/1983 Pneumococcal Vaccine: 50+ Years (4 of 4 - PCV20 or PCV21) 02/19/2020 02/18/2015, 03/22/2012, 05/18/2011 Pneumococcal Vaccine: Pediatrics (0 to 5 Years) and At-Risk Patients (6 to 64 Years) (4 of 4 - PCV20 or PCV21) 02/19/2020 02/18/2015, 03/22/2012, 05/18/2011 Breast Cancer Screening 07/28/2020 07/29/19 19, 07/27/2017, 07/20/2016 Cholesterol Screening (Lipid Panel) 01/11/2022 Depression Screening 01/11/2022 HIV Screening 01/11/2022 Hepatitis C Screening 01/11/2022 Medicare Annual Wellness Visit 01/11/2022 Social Influencers of Health Screening 01/11/2022 RSV Immunization Patients 60+ Years Old (1 - Risk 60-74 years 1-dose series) 2022 Hypertension/CHF/CAD Annual BMP Blood Test 01/28/2024 06/10/2021 Colorectal Cancer Screening: FIT-DNA (Cologuard) 10/26/2025 10/26/2022, 10/26/2022 DTaP,Tdap,and Td Vaccines (4 - Td or [...] patient's age to complete this topic Meningococcal B Vacine Aged Out No lo nger eligible based on patient's age to complete [...] Signed Date: 01/28/2024 15:13 ET Workstation ID: [id number] Transcribed By: Self Edit Transcribed Date: 01/28/2024 [...] Signed Date: 01/28/2024 15:13 ET Workstation ID: [id number] Transcribed By: Self Edit Transcribed Date: 01/28/2024 15:05 ET us Lonnie Mercer MD IMG CT PROCEDURES Final Result * SCR MAMMO BI INCL CAD (07/28/2018 [...] (<15%) Valerie Castano MD IMG XR PROCEDURES Final Res ult from Last 3 Months or Most Recently Relevant to Health Maintenance Insurance MEDICAID - [place] MEDICARE Care Teams Security Representative Relationship Specialty Start Date End Date Valerie Castano MD [address] [place] [address] PCP - General 05/21/10
[2024-04-14 17:06] LABS: Anion Gap 18 (12-20); Blood Urea Nitrogen 55 mg/dL (9-16); Calcium 11.7 mg/dL (8.4-10.2); Carbon Dioxide 28 mmol/L (22-29); Chloride 104 mmol/L (96-108); Estimated Glomerular Filt Rate 8; Glucose Random 104 mg/dL (60-115); Potassium 4.9 mmol/L (3.3-5.1); Sodium 145 mmol/L (135-145)
[2024-04-14 17:12] LABS: Parathyroid Hormone Intact 143.4 pg/mL (8.7-77.1)
[2024-04-14 18:03] LABS: Hematocrit 31.1 % (37.0-47.0); Hemoglobin 9.1 g/dl (12.0-16.0); Mean Corpuscular HGB Conc 29.3 g/dl (31.0-35.0); Mean Corpuscular Hemoglobin 28.3 pg (27.0-33.0); Mean Corpuscular Volume 96.6 fL (80.0-98.0); Mean Platelet Volume 9.2 fL (9.4-12.3); Platelet Count 314 X10*3/uL (160-400); Red Blood Count 3.22 X10*6/uL (4.20-5.50); Red Cell Distribution Width 13.6 % (11.0-16.0); White Blood Count 9.8 X10*3/uL (4.8-10.8)
== END 2024-04-14 12:43 | disposition home or self-care (01) ==
LOC: HO.HMGCLDS 12:42
PROVIDERS: PCP Nurse Practitioner Family; Visit Provider Internal Medicine Hypertension Specialist
DX: N18.4 Chronic kidney disease, stage 4 (severe) (principal)
CPT/HCPCS: 36415; 80048; 83970; 85027

== ENCOUNTER 2024-04-18 10:25 | Outpatient (AMB) | payer MEDICARE, MEDICAID, SELFPAY ==
[2024-04-18 10:23] VITALS: BMI 37.8
--- NOTE | 2024-04-18 10:23 | HO.NEPHOV_ITS ---
Vital Signs 04/18/24 10:23 Height 5 ft 1 in Weight 200 lb BMI 37.8 Intake Visit Reasons: Proteinuria/ Conf Pier Hand Required: No Accompanied by: Self / Same As Patient Allergies ciprofloxacin [From Cipro] Allergy (Severe, Verified 04/18/24 10:24) HIVES/SWELLING, THROAT CLOSES shellfish derived [SHELLFISH DERIVED] Allergy (Intermediate, Verified 04/18/24 10:24) Vomiting NSAIDS (Non-Steroidal Anti-Inflamma Adverse Reaction (Severe, Verified 04/18/24 10:24) Avoid due to kidney disease Medication List - Last Reconciled 04/18/24 by Fermin Muhammad MD acetaminophen 650 mg PO Q6H PRN aspirin 81 mg PO DAILY atorvastatin 10 mg PO BEDTIME azithromycin 250 mg PO 3XW 30 days Breo Ellipta 100-25 mcg/dose (fluticasone furoate-vilanterol) 1 ea PO DAILY 90 days NS carvedilol 3.125 mg PO BID fluticasone propionate 50 mcg/actuation 1 spray intranasal DAILY gabapentin 100 mg PO DAILY PRN guaifenesin ER (Mucinex) 600 mg PO BID PRN hydroxyzine pamoate 100 mg PO BEDTIME PRN ipratropium-albuterol 0.5 mg-3 mg(2.5 mg base)/3 mL 3 mL inhalation Q4-6H PRN lorazepam 1 mg PO BID PRN methadone 70 mg PO DAILY prednisone 5 mg PO DAILY 30 days sodium zirconium cyclosilicate (Lokelma) 10 grams PO DAILY torsemide 20 mg PO BID HPI Comments Details: 62 years old female with advanced chronic obstructive pulmonary disease and chronic respiratory failure, on oxygen, and treated for acute exacerbation of COPD/respiratory failure, was able to normalize blood gases with aggressive treatment. She has advanced CKD approaching end stage renal disease. She has significant fluid overload requiring high-dose of diuretics. She is here for further follow-up. Recently admitted for respiratory illness and was treated with a course of prednisone. During hospitalization diltiazem has been discontinued but she is still taking it. 02/22/23: Doing better;No new issues 05/25/2023. Overall doing well. Recently missed Neurology appointment due to logistical issues. Respiratory status remains unchanged. Leg edema remains stable 12/02/23 Still with dyspnea;Weight is better ;Was on prednisone with some improvement in breathing 02/10/2024. Complains of cough with clear sputum. Weight is relatively stable. Appetite is fair. After increasing calcitriol to 1 mcg a day PTH has decreased from 1300 down to 364 04/18/24 Lot of family issues. Son on life support. No nausea/vomiting No dyspnea at rest [facility] Medical History (Updated 03/06/24 @ 16:12 by Mayte Cochran MD) Respiratory failure with hypoxia Dyslipidemia History of lung cancer Hx of bronchitis CKD (chronic kidney disease) stage 4, GFR 15-29 ml/min Morbid obesity COPD (chronic obstructive pulmonary disease) Polysubstance abuse Respiratory failure with hypoxia and hypercapnia Ambulates with cane Seasonal allergies Herpes zoster Osteopenia (~2017) Respiratory failure COVID-19 (~03/2021) Osteoarthritis of ankles, bilateral Olecranon bursitis of left elbow Tubulovillous adenoma of large intestine (~2020) Hx of cardiac arrest (~2015) O2 dependent Methadone maintenance therapy patient History of claustrophobia History of seizure Anxiety and depression HTN (hypertension) Multiple fractures of ribs Anemia in chronic kidney disease Vitamin D deficiency Family history of colon cancer Restrictive lung disease LEO (obstructive sleep apnea) Surgical History Hx of tracheostomy History of esophagogastroduodenoscopy (EGD) (~2021) History of removal of ureteral stent (~2013) History of lung biopsy (~2019) History of colonoscopy (~2020) Umbilical hernia History of laparoscopy (~2012) History of hand surgery History of tubal ligation Family History Father Diabetes mellitus Mother Depression Mental health disorder Maternal Grandfather Colon cancer Sister No problems noted. Son No problems noted. Daughter No problems noted. Daughter No problems noted. Social History Household Members: Unknown / Unable to assess Housing: House Housing Other:: mobile home Are you a primary point of care specialist to a significant other at home: No Do you presently have visiting nurse or other home services: No Unable to assess alcohol history related to: Unable to respond Alcohol intake: never Comment: restraints Patient Tobacco Use Status: Former Tobacco user Tobacco use type: Cigarette Years Smoked: 25 yrs e-Cigarette/Vaping Use: Never Used Substance Use Type: Heroin Advance Directives Date on File: 03/21/21 service: No Current occupational status: unemployed and disabled Cognitive needs: No Hearing needs: No Vision needs: No Physical Exam Vital Signs: BMI result Body Mass Index 37.8 Results Reviewed Nephrology Results: Hgb 9.1 g/dl (12.0-16.0) L 04/14/24 WBC 9.8 X10*3/uL (4.8-10.8) 04/14/24 Plt Count 314 X10*3/uL (160-400) 04/14/24 Sodium 145 mmol/L (135-145) 04/14/24 Potassium 4.9 mmol/L (3.3-5.1) 04/14/24 Chloride 104 mmol/L (96-108) 04/14/24 Carbon Dioxide 28 mmol/L (22-29) 04/14/24 BUN 55 mg/dL (9-16) H 04/14/24 Creatinine 5.42 mg/dL (0.5-1.4) H* 04/14/24 Calcium 11.7 mg/dL (8.4-10.2) H 04/14/24 PTH Intact 143.4 pg/mL (8.7-77.1) H 04/14/24 Assessment & Plan Assessment & Plan (1) CKD (chronic kidney disease) stage 5, GFR less than 15 ml/min: Code(s): N18.5 - Chronic kidney disease, stage 5 Category: Medical Plan: Advanced CKD approaching end stage renal disease. No overt signs or symptoms of uremia. Goal is to slow the progression of the renal disease. We will continue to watch renal function closely and initiate dialysis when appropriate. (2) Anemia in chronic kidney disease: Code(s): N18.9 - Chronic kidney disease, unspecified; D63.1 - Anemia in chronic kidney disease Category: Medical Qualifiers: Chronic kidney disease stage: stage 5, not on chronic dialysis Qualified Code(s): N18.5 - Chronic kidney disease, stage 5; D63.1 - Anemia in chronic kidney disease Plan: No absolute indication to start erythropoietin yet. Hct has improved I will follow the hemoglobin along with iron stores and start on epogen as needed. (3) Acute exacerbation of chronic obstructive pulmonary disease: Code(s): J44.1 - Chronic obstructive pulmonary disease with (acute) exacerbation Category: Medical Plan: Management per PCP Continue DuoNeb updrafts q.i.d. and Breo-100 1 inhalation daily. Mucinex 600 mg b.i.d. also prescribed. (4) HTN (hypertension): Code(s): I10 - Essential (primary) hypertension Category: Medical Plan: Blood pressure is better controlled No need for Cardizem ( was stopped in Jan 2023) Continue with Coreg 3.125 b.i.d.. No changes were made to her diabetic regimen. (5) Secondary hyperparathyroidism: Code(s): N25.81 - Secondary hyperparathyroidism of renal origin Category: Medical Plan: PTH is more than 1600. On calcitriol 1 mcg daily PTH is down to 148 Ca is up Will STOP Calcitriol Add Cinacalcet 30 recheck in 1 month Plan as above Medications: New cinacalcet 30 mg PO DAILY 30 tabs 2RF Discontinued calcitriol Discontinued Reason: Doctor's Order 1 mcg (2 x 0.5 mcg) PO DAILY 180 caps 0RF Coding Level of Care Code Tele Est Pt Level 3 (35111) Diagnoses CKD (chronic kidney disease) stage 5, GFR less than 15 ml/min N18.5 Anemia in stage 5 chronic kidney disease, not on chronic dialysis N18.5; D63.1 Chronic kidney disease stage: stage 5, not on chronic dialysis Acute exacerbation of chronic obstructive pulmonary disease J44.1 HTN (hypertension) I10 Secondary hyperparathyroidism N25.81 Time Spent (min) 14
--- OUTSIDE RECORDS SUMMARY | 2024-04-18 12:27 | XMS_ITS | Referral Summary ---
Author Organization [facility] Address [address] [place] [address] Care Team Providers Care Cap Jewel Plate Assembler Name Role Phone Patient, Has No Pcp [...] Not on file Procedures * Due to [place] state law, this organization might not be sharing negative HIV tests. Procedure Name Priority Date/Time Associated Diagnosis Comments CBC AUTO DIFFERENTIAL STAT 06/10/2021 3:53 AM EDT BASIC METABOLIC PANEL STAT 06/10/2021 3:53 AM EDT from Last 3 Months or Most Recently Relevant to Health Maintenance Results * Due to [place] state law, this organization might not be [...] % 16.3 % 06/10/2021 4:37 AM EDT [facility] [employer] [facility] Eosinophil % 6.4 % 06/10/2021 4:37 AM EDT [email or web address] [employer] [facility] Basophil % 0.7 % 06/10/2021 4:37 AM EDT [email or web address] [employer] [facility] Neutrophil # 3.74 1.60 - 7.50 10*3/uL 06/10/2021 4:37 AM EDT [email or web address] [employer] [facility] Lymphocyte # 2.5 0.9 - 3.4 10*3/uL 06/10/2021 4:37 AM EDT [email or web address] [employer] [facility] Monocyte # 1.3(H) 0.0 - 1.2 10*3/uL 06/10/2021 4:37 AM EDT [facility] [employer] [facility] Eosinophil # 0.5 0.0 - 0.6 10*3/uL 06/10/2021 4:37 AM EDT [facility] [employer] [facility] Basophil # 0.1 0.0 - 0.3 10*3/uL 06/10/2021 4:37 AM EDT [facility] [employer] [facility] Smear Review? No [place] MANUAL 06/10/2021 4:37 AM EDT [email or web address] [employer] [facility] Blood Structure of peripheral vein / Unknown Venipuncture / Unknown 06/10/2021 3:53 AM EDT 06/10/2021 4:20 AM EDT us Francesco Lam MD LAB BLOOD ORDERABLES Final Res ult [facility] [employer] CL[facility] LAB[facility] [address] [place] [address], * (ABNORMAL) BMP - Basic Metabolic Panel (06/10/2021 3:53 AM EDT) NA 135 135 - 145 mmol/L 06/10/2021 4:30 AM EDT [facility] K 5.3 3.5 - 5.3 mmol/L 06/10/2021 4:30 AM ED [employer] [facility] LAB[facility] Cl 97 97 - 110 mmol/L 06/10/2021 4:30 AM [employer] [facility] [employer] [employer] [facility] CO2 26 24 - 32 mmol/L 06/10/2021 4:30 AM [facility] [employer] [facility] LAB[facility] BUN 43(H) 7 - 23 mg/dL 06/10/2021 4:30 AM EDT [employer] [facility] Creatinine 2.02(H) 0.50 - 1.20 mg/dL 06/10/2021 4:30 AM ED [employer] [facility] Glucose 107(H) 70 - 99 mg/dL 06/10/2021 4:30 AM [employer] [facility] [employer] [facility] Calcium 10.1 8.7 - 10.7 mg/dL 06/10/2021 4:30 AM [facility] [employer] [facility] LAB[facility] Anion Gap 12 5 - 15 06/10/2021 4:30 AM [employer] [facility] LAB[facility] eGFR 28(L) >=90 mL/min/1. 73m2 06/10/2021 4:30 AM [employer] [facility] [employer] [employer] [facility] Comment: Estimated Glomerular Filtration [...] [facility] [address] [place] [address], [place] from Last 3 Months or Most Recently Relevant to Health Maintenance Insurance MEDICARE [facility] Care Teams Cap Jewel Plate Assembler Relationship Specialty Start Date End Date Patient, Has No Pcp Or Ref DO NOT EDIT THIS RECORD VIA PROVIDER ON THE FLY PCP - General Income Tax Analyst 06/10/21
--- OUTSIDE RECORDS SUMMARY | 2024-04-18 12:27 | XMS_ITS | Clinical Summary ---
Author Organization [facility] Address [address] [place] [address] Care Team Providers Care Tooth Cutter Spur Name Role Phone Patient, Has No Pcp [...] complete this topic Procedures * Due to [place] law, this organization might not be sharing negative HIV tests. Procedure Name Priority Date/Time Associated Diagnosis Comments CBC AUTO DIFFERENTIAL STAT 06/10/2021 3:53 AM EDT BASIC METABOLIC PANEL STAT 06/10/2021 3:53 AM EDT from Last 3 Months or Most Recently Relevant to Health Maintenance Results * Due to [place] law, this organization might not be sharing negative HIV tests. * (ABNORMAL) CBC Auto Differential (06/10/2021 3:53 AM EDT) WBC 8.2 4.3 - 10.8 10*3/uL 06/10/2021 4:37 AM EDT [facility] RBC 4.29 3.80 - 5.10 10*6/uL 06/10/2021 4:37 AM EDT [facility] Hemoglobin 11.8 11.7 - 15.5 g/dL 06/10/2021 4:37 AM EDT [facility] Hematocrit 36.2 35.0 - 46.0 % 06/10/2021 4:37 AM EDT [facility] MCV 84.4 80.0 - 100.0 fL 06/10/2021 4:37 AM EDT [facility] MCH 27.5 27.0 - 34.0 pg 06/10/2021 4:37 AM EDT [facility] MCHC 32.6 29.0 - 36.0 g/dL 06/10/2021 4:37 AM EDT [facility] RDW 19.0(H) 11.0 - 15.0 % 06/10/2021 4:37 AM EDT [facility] Platelets 412 140 - 440 10*3/uL 06/10/2021 4:37 AM EDT [facility] MPV 6.9(L) 7.6 - 11.6 fL 06/10/2021 4:37 AM EDT [facility] Neutrophil % 45.6 % 06/10/2021 4:37 AM EDT [facility] Lymphocyte % 31.0 % 06/10/2021 4:37 AM EDT [facility] Monocyte % 16.3 % 06/10/2021 4:37 AM EDT [facility] Eosinophil % 6.4 % 06/10/2021 4:37 AM EDT [facility] Basophil % 0.7 % 06/10/2021 4:37 AM EDT [facility] Neutrophil # 3.74 1.60 - 7.50 10*3/uL 06/10/2021 4:37 AM EDT [facility] [employer] [facility] LAB[facility] Lymphocyte # 2.5 0.9 - 3.4 10*3/uL 06/10/2021 4:37 AM EDT [facility] [employer] [facility] Monocyte # 1.3(H) 0.0 - 1.2 10*3/uL 06/10/2021 4:37 AM EDT [facility] [employer] [facility] Eosinophil # 0.5 0.0 - 0.6 10*3/uL 06/10/2021 4:37 AM EDT [facility] [employer] [facility] LAB[facility] Basophil # 0.1 0.0 - 0.3 10*3/uL 06/10/2021 4:37 AM EDT [facility] [employer] [facility] LAB[facility] Smear Review? No [place] MANUAL 06/10/2021 4:37 AM EDT [facility] [employer] [facility] Blood Structure of peripheral vein / Unknown Venipuncture / Unknown 06/10/2021 3:53 AM EDT 06/10/2021 4:20 AM EDT us Francesco Lam MD LAB BLOOD ORDERABLES Final Res ult [facility] [employer] CL[facility] LABORATORY [address] [place] [address], * (ABNORMAL) BMP - Basic Metabolic Panel (06/10/2021 3:53 AM EDT) NA 135 135 - 145 mmol/L 06/10/2021 4:30 AM EDT [facility] [employer] [facility] K 5.3 3.5 - 5.3 mmol/L 06/10/2021 4:30 AM EDT [facility] Cl 97 97 - 110 mmol/L 06/10/2021 4:30 AM EDT [facility] CO2 26 24 - 32 mmol/L 06/10/2021 4:30 AM EDT [employer] [facility] LAB[facility] BUN 43(H) 7 - 23 mg/dL 06/10/2021 4:30 AM EDT [employer] [facility] LAB[facility] Creatinine 2.02(H) 0.50 - 1.20 mg/dL 06/10/2021 4:30 AM EDT [employer] [facility] Glucose 107(H) 70 - 99 mg/dL 06/10/2021 4:30 AM EDT [employer] [facility] Calcium 10.1 8.7 - 10.7 mg/dL 06/10/2021 4:30 AM EDT [employer] [facility] Anion Gap 12 5 - 15 06/10/2021 4:30 AM EDT [employer] CL[facility] PATHOLOG[facility] LABORATORY eGFR 28(L) >=90 mL/min/1. 73m2 06/10/2021 4:30 AM EDT [employer] [facility] Comment: Estimated Glomerular Filtration [...] [facility] [address] [place] [address], from Last 3 Months or Most Recently Relevant to Health Maintenance Insurance MEDICARE [facility] Care Teams Tooth Cutter Spur Relationship Specialty Start Date End Date Patient, Has No Pcp Or Ref DO NOT EDIT THIS RECORD VIA PROVIDER ON THE FLY PCP - General Sample Shoe Inspector And Reworker 06/10/21
--- OUTSIDE RECORDS SUMMARY | 2024-04-18 12:27 | XMS_ITS | Encounter Summary ---
Author Organization [facility] Address [address] [place] [address] Phone Care Team Providers Care Box Nailer Name Role Phone Angel Castano MD Primary Care Provider +1- [phone] Encounter Details Date Type Department Care Team (Late st Contact Info) Description 05/04/2022 Telephone [facility] [address] [place] [address] Kitty Menezes [place] Social History Tobacco Use [...] on filedocumented in this encounter Care Teams Box Nailer Relationship Specialty Start Date End Date Angel Castano MD [facility] [place] [id number] PCP - General 02/19/20 documented as of this encounter
--- OUTSIDE RECORDS SUMMARY | 2024-04-18 12:27 | XMS_ITS | Clinical Summary ---
Author Organization [facility] Address [address] [place] [address] [address] [place] [address] Phone Care Team Providers Care Plastics Bench Mechanic Name Role Phone Angel Castano MD Primary Care Provider +1- [phone] Allergies Active Allergy Reactions Criticality Noted Date [...] stage I through stage IV, or unspecified 56810 Units IJ Every 14 days 11/22/2020 Active [...] topic Insurance MEDICARE MEDICAID [place] [address] [place] [address] MEDICARE [place]ICAID [place] Care Teams Plastics Bench Mechanic Relationship Specialty Start Date End Date Angel Castano MD [address] [place] [address] [facility] - General 02/19/20
--- OUTSIDE RECORDS SUMMARY | 2024-04-18 12:27 | XMS_ITS | Clinical Summary ---
Author Organization [facility] Address [address] [place] [address] Phone Care Team Providers Care Financial Director Name Role Phone Valerie Castano MD Primary [...] 02/07/2024 11:59 PM EST Hospital Encounter [facility] Radiation Oncology [address] [facility] [address] [place] [phone] Lonnie Mercer MD Lung cancer, middle lobe (CMS/HCC) (Primary Dx) Discharge Disposition: Home or Self Care 01/27/2024 3:22 PM EST - 01/27/2024 11:59 PM EST Hospital Encounter [facility] CT Scan [address] [place] [address] Lung cancer, middle lobe (CMS/HCC) Discharge Disposition: Home or Self Care from Last 3 Months Surgical History Surgery Date Site/Laterality Comments OTHER SURGICAL HISTORY - 1989 PROCEDURE: [place] CAUTERY CERVIX CRYOCAUTERY INITIAL/REPEAT; COMMENT: for abnormal pap OTHER SURGICAL HISTORY PROCEDURE: [place] LIG/TRNSXJ FLP TUBE ABDL/VAG APPR UNI/BI OTHER SURGICAL HISTORY 2012 PROCEDURE: [place] EXPLORATORY LAPAROTOMY CELIOTOMY W/WO BIOPSY SPX; COMMENT: [...] Diabetes Father Other: colorectal cancer Grandparent mat ernal grandfather Arthritis Maternal Grandmother Arthritis Mother Mental [...] Signed Date: 01/28/2024 15:13 ET Workstation ID: [id number] Transcribed By: Self Edit Transcribed Date: 01/28/2024 [...] Signed Date: 01/28/2024 15:13 ET Workstation ID: [id number] Transcribed By: Self Edit Transcribed Date: 01/28/2024 [...] % Breast cancer risk category Low (<15%) us Valerie Castano MD IMG XR PROCEDURES Final Res ult from Last 3 Months or Most Recently Relevant to Health Maintenance Insurance MEDICAID - [place] MEDICARE Care Teams Financial Director Relationship Specialty Start Date End Date Valerie Castano MD [address] [facility] [place] [address] PCP - General 05/21/10
--- OUTSIDE RECORDS SUMMARY | 2024-04-18 12:27 | XMS_ITS | Encounter Summary ---
Author Organization [facility] Address [address] [place] [address] Phone Care Team Providers Care Floral Artist Name Role Phone Angel Castano MD Primary Care Provider +1- [phone] Encounter Details Date Type Department Care Team (Late st Contact Info) Description 11/10/2022 Office Communication [facility] [address] [facility] [address] [place] [phone] Tony Rodriguez MD [address] [facility] [address] [place] [phone] Social History Tobacco Use Types Packs/Day Years [...] on filedocumented in this encounter Care Teams Floral Artist Relationship Specialty Start Date End Date Angel Castano MD [address] [place] [address] PCP - General 02/19/20 documented as of this encounter
== END 2024-04-18 12:37 | disposition home or self-care (01) ==
LOC: HO.HKA 10:25
PROVIDERS: PCP Internal Medicine; Visit Provider Internal Medicine Hypertension Specialist
DX: I12.0 Hypertensive chronic kidney disease with stage 5 chronic kidney disease or end stage renal disease (principal); N18.5 Chronic kidney disease, stage 5; D63.1 Anemia in chronic kidney disease; J44.1 Chronic obstructive pulmonary disease with (acute) exacerbation; N25.81 Secondary hyperparathyroidism of renal origin
CPT/HCPCS: 99213

== ENCOUNTER → 2024-04-18 10:25 | Outpatient (BNVA) | payer MEDICARE, SELFPAY | PROVIDERS: PCP Internal Medicine; Visit Provider Internal Medicine Hypertension Specialist ==

== ENCOUNTER → 2024-05-09 23:59 | Outpatient (BNV) | payer MEDICARE, MEDICAID, SELFPAY | PROVIDERS: PCP Nurse Practitioner Family; Visit Provider Internal Medicine | DX: N18.4 Chronic kidney disease, stage 4 (severe) (principal); F41.1 Generalized anxiety disorder; D12.6 Benign neoplasm of colon, unspecified | CPT/HCPCS: G0179 ==

== ENCOUNTER 2024-05-18 13:14 | Outpatient (REF) | payer MEDICARE, SELFPAY ==
--- OUTSIDE RECORDS SUMMARY | 2024-05-18 15:58 | XMS_ITS | Clinical Summary ---
Author Organization [facility] Address [address] [place] [address] [address] [place] [address] Phone Care Team Providers Care Emergency Room Physician Assistant Name Role Phone Angel Castano MD Primary Care Provider +1- [phone] Allergies Active Allergy Reactions Criticality Noted Date [...] stage I through stage IV, or unspecified 8[address]81 Units IJ Every 14 days 11/22/2020 Active [...] Date Cellulitis of lower limb 06/20/2020 Immunizations Immunization Administration Dates Next Due Pneumococcal Polysaccharide 03/22/2012, [...] Colorectal Cancer Screening: Sigmoidoscopy 05/30/2011 Pneumococcal Vaccine: Peds ( 0 to 5 Years) and At-Risk Patients (6 to 49 Years) (3 of 3 - PCV) 03/22/2013 03/22/2012, 05/18/2011 Influenza Vaccine (Season Ended) 2024 Hepatitis B Vaccine Aged Out No longe r eligible based on patient's age to complete this topic Insurance Medicare Medicaid [place] [address] [place] [address] Medicare Medicaid [place] Care Teams Emergency Room Physician Assistant Relationship Specialty Start Date End Date Angel Castano MD [address] [place] [address] PCP - General 02/19/20
--- OUTSIDE RECORDS SUMMARY | 2024-05-18 15:58 | XMS_ITS | Clinical Summary ---
Author Organization [facility] Address [address] [place] [address] Care Team Prov[address] Care Ct Manager Name Role Phone Patient, Has No [...] Vaccine ( season) 2023 09/23/2020, 05/22/2020, 05/01/2020 Alcohol/Substance Use Screening 02/09/2024 Depression Screening and Follow-Up 02/09/2024 Social Drivers of Health Annual Screening 02/09/2024 Influenza Vaccine (Season Ended) 2024 11/24/2020, 11/02/2019, 10/22/2018, Additional history exists DTaP,Tdap,and Td Vaccines (4 - Td or Tdap) 01/13/2029 01/13/2019, 11/01/2012, 01/27/2010 RSV Vaccine (60+ years old and patients) (1 - 1-dose 75+ series) 2037 Zoster Vaccines Completed 10/22/2018, 08/16/2018 Hepatitis B Vaccines Aged Out No long er eligible based on patient's age to complete this topic Procedures * Due to [place] Secure[employer] law, this organization might not be sharing negative HIV tests. Procedure Name Priority Date/Time Associated Diagnosis Comments CBC AUTO DIFFERENTIAL STAT 06/10/2021 3:53 AM EDT BASIC METABOLIC PANEL STAT 06/10/2021 3:53 AM EDT from Last 3 Months or Most Recently Relevant to Health Maintenance Results * Due to [place] [employer] law, this organization might not be sharing negative HIV tests. * (ABNORMAL) CBC Auto Differential (06/10/2021 3:53 AM EDT) WBC 8.2 4.3 - 10.8 10*3/uL 06/10/2021 4:37 AM EDT [facility] RBC 4.29 3.80 - 5.10 10*6/uL 06/10/2021 4:37 AM EDT [facility] Hemoglobin 11.8 11.7 - 15.5 g/dL 06/10/2021 4:37 AM EDT [facility] Hematocrit 36.2 35.0 - 46.0 % 06/10/2021 4:37 AM EDT [facility] MCV 84.4 80.0 - 100.0 fL 06/10/2021 4:37 AM EDT [facility] MCH 27.5 27.0 - 34.0 pg 06/10/2021 4:37 AM EDT [facility] MCHC 32.6 29.0 - 36.0 g/dL 06/10/2021 4:37 AM EDT [facility] RDW 19.0(H) 11.0 - 15.0 % 06/10/2021 4:37 AM EDT [facility] Platelets 412 140 - 440 10*3/uL 06/10/2021 4:37 AM EDT [employer] [facility] MPV 6.9(L) 7.6 - 11.6 fL 06/10/2021 4:37 AM EDT [facility] Neutrophil % 45.6 % 06/10/2021 4:37 AM EDT [facility] Lymphocyte % 31.0 % 06/10/2021 4:37 AM EDT [facility] Monocyte % 16.3 % 06/10/2021 4:37 AM EDT [facility] Eosinophil % 6.4 % 06/10/2021 4:37 AM EDT [facility] Basophil % 0.7 % 06/10/2021 4:37 AM EDT [facility] [employer] [facility] Neutrophil # 3.74 1.60 - 7.50 10*3/uL 06/10/2021 4:37 AM EDT [facility]ITAL[facility] [employer] [facility] Lymphocyte # 2.5 0.9 - 3.4 10*3/uL 06/10/2021 4:37 AM EDT [facility] [employer] [facility] Monocyte # 1.3(H) 0.0 - 1.2 10*3/uL 06/10/2021 4:37 AM EDT [facility] [employer] [facility] Eosinophil # 0.5 0.0 - 0.6 10*3/uL 06/10/2021 4:37 AM EDT [facility] [employer] [facility] Basophil # 0.1 0.0 - 0.3 10*3/uL 06/10/2021 4:37 AM EDT [facility]ITALTa[facility]THE [facility] [employer] [facility] Smear Review? No [place] MANUAL 06/10/2021 4:37 AM EDT [facility] [employer] [facility] Blood Structure of peripheral vein / Unknown Venipuncture / Unknown 06/10/2021 3:53 AM EDT 06/10/2021 4:20 AM EDT us Francesco Lam MD LAB BLOOD ORDERABLES Final Res ult [facility] [employer] [facility] [address] [place] [address], * (ABNORMAL) BMP - Basic Metabolic Panel (06/10/2021 3:53 AM EDT) NA 135 135 - 145 mmol/L 06/10/2021 4:30 AM EDT [facility] [employer] [facility] K 5.3 3.5 - 5.3 mmol/L 06/10/2021 4:30 AM EDT [facility] [employer] [facility] Cl 97 97 - 110 mmol/L 06/10/2021 4:30 AM EDT [facility] CO2 26 24 - 32 mmol/L 06/10/2021 4:30 AM EDT [facility] BUN 43(H) 7 - 23 mg/dL 06/10/2021 4:30 AM EDT [facility] Creatinine 2.02(H) 0.50 - 1.20 mg/dL 06/10/2021 4:30 AM EDT [facility] Glucose 107(H) 70 - 99 mg/dL 06/10/2021 4:30 AM EDT [facility] Calcium 10.1 8.7 - 10.7 mg/dL 06/10/2021 4:30 AM EDT [facility] Anion Gap 12 5 - 15 06/10/2021 4:30 AM EDT [employer] [facility] eGFR 28(L) >=90 mL/min/1. 73m2 06/10/2021 4:30 AM EDT [facility] Comment: Estimated Glomerular Filtration [...] [facility] [address] [place] [address], from Last 3 Months or Most Recently Relevant to Health Maintenance Insurance MEDICARE [facility] Care Teams Ct Manager Relationship Specialty Start Date End Date Patient, Has No Pcp Or Ref DO NOT EDIT THIS RECORD VIA PROVIDER ON THE FLY PCP - General Sports Development Officer 06/10/21
--- OUTSIDE RECORDS SUMMARY | 2024-05-18 15:58 | XMS_ITS | Clinical Summary ---
Author Organization 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 HTN (hypertension) 01/31/2024 Chronic back pain 01/31/2024 Lung cancer, middle lobe (CMS/[facility] V24, [facility] V 28) 12/29/2023 Cancer Staging:Clinical:Stage IB(cT2a, cN0, cM0) - Signed by Lonnie Mercer MD on 12/29/2023 Anemia in chronic kidney disease 08/10/2022 Chronic kidney disease, stag e 4 (severe) (CMS/[facility] V24, CMS/[facility] V28) 08/10/2022 Hypertensive renal disease 06/20/2020 Degenerative arthritis of lumbar spine 0 Trochanteric bursitis 04/03/2009 Lumbago 05/10/2008 Torticollis 07/08/2007 Myalgia 06/03/2007 Spasm of muscle 06/03/2007 Tobacco use disorder 02/06/2006 Cervicalgia 03/19/2005 Insomnia, unspecified 03/19/2005 Lung involvement associated with another disorder (CMS/HCC V24, CMS/HCC V28) 03/19/2005 Overview (01/31/2024): IMO update Migraine without aura 03/19/2005 Overview (01/31/2024): IMO update Surgical History Surgery Date Site/Laterality Comments OTHER SURGICAL HISTORY - 1989 PROCEDURE: [place] CAUTERY CERVIX CRYOCAUTERY INITIAL/REPEAT; COMMENT: for abnormal pap OTHER SURGICAL HISTORY PROCEDURE: [place] LIG/TRNSXJ FLP TUBE ABDL/VAG APPR UNI/BI OTHER SURGICAL HISTORY 2012 PROCEDURE: [place] EXPLORATORY LAPAROTOMY CELIOTOMY W/WO BIOPSY SPX; COMMENT: [...] Influencers of Health Screening 01/11/2022 RSV Immunization Adult Patients (1 - Risk 60-74 years 1-dose series) [...] age to complete this topic Meningococcal B Vaccine Aged Out No l onger eligible based on patient's age to complete this topic RSV Immunization Patients Under 20 months Aged Out No longer eligible based on patient's age to complete this topic Varicella Vaccines Aged Out No longer eligible based on patient's age to complete this topic Procedures Procedure Name Priority Date/Time Associated Diagnosis Comments SCR MAMMO BI INCL CAD Routine 07/28/2018 5:03 PM EDT Encounter for screening mammogram for malignant neoplasm of breast from Last 3 Months or Most Recently Relevant to Health Maintenance Results * SCR MAMMO BI INCL CAD (07/28/2018 [...] Breast cancer risk category Low (<15%) Valerie Csatano MD IMG XR PROCEDURES Final Res ult from Last 3 Months or Most Recently Relevant to Health Maintenance Insurance [place] - [place]ARE Care Teams Mushroom Packer Relationship Specialty Start Date End Date Valerie Castano MD [address] [place] [address] PCP - General 05/21/10
--- OUTSIDE RECORDS SUMMARY | 2024-05-18 15:58 | XMS_ITS | Encounter Summary ---
Author Organization [facility] Address [address] [place] [address] Phone Care Team Providers Care Rubber Calender Helper Name Role Phone Angel Castano MD Primary Care Provider +1- [phone] Encounter Details Date Type Department Care Team (Late st Contact Info) Description 05/04/2022 Telephone [facility] [address] [place] [address] Kitty Menezes MA Social History [...] on filedocumented in this encounter Care Teams Rubber Calender Helper Relationship Specialty Start Date End Date [facility] [place] [id number] PCP - General 02/19/20 documented as of this encounter
--- OUTSIDE RECORDS SUMMARY | 2024-05-18 15:58 | XMS_ITS | Referral Summary ---
Author Organization [facility] Address [address] [place] [address] Care Team Providers Care Call Center Assistant Name Role Phone Patient, Has No Pcp [...] Not on file Procedures * Due to [place] state law, this organization might not be sharing negative HIV tests. Procedure Name Priority Date/Time Associated Diagnosis Comments CBC AUTO DIFFERENTIAL STAT 06/10/2021 3:53 AM EDT BASIC METABOLIC PANEL STAT 06/10/2021 3:53 AM EDT from Last 3 Months or Most Recently Relevant to Health Maintenance Results * Due to [place] state law, this organization might not be [...] % 16.3 % 06/10/2021 4:37 AM EDT [facility]ENTERKe[facility] RowAK[facility] [employer] [facility] Eosinophil % 6.4 % 06/10/2021 4:37 AM EDT [facility]Rev[facility] PharmaceuticalsTR[facility] [employer] [facility] Basophil % 0.7 % 06/10/2021 4:37 AM EDT [facility]Rev[facility] PharmaceuticalsTR[facility] [employer] [facility] Neutrophil # 3.74 1.60 - 7.50 10*3/uL 06/10/2021 4:37 AM EDT [facility]ENTERReviva PharmaceuticalsAK[facility] [employer] [facility] Lymphocyte # 2.5 0.9 - 3.4 10*3/uL 06/10/2021 4:37 AM EDT [facility]ENTERReviva PharmaceuticalsTR[facility] [employer] [facility] Monocyte # 1.3(H) 0.0 - 1.2 10*3/uL 06/10/2021 4:37 AM EDT [facility] [employer] [facility] Eosinophil # 0.5 0.0 - 0.6 10*3/uL 06/10/2021 4:37 AM EDT [facility] [employer] [facility] Basophil # 0.1 0.0 - 0.3 10*3/uL 06/10/2021 4:37 AM EDT [facility] [employer] [facility] Smear Review? No [place] MANUAL 06/10/2021 4:37 AM EDT [facility]ENTERReviva PharmaceuticalsAK[facility] [employer] [facility] Blood Structure of peripheral vein / Unknown Venipuncture / Unknown 06/10/2021 3:53 AM EDT 06/10/2021 4:20 AM EDT us Francesco Lam MD LAB BLOOD ORDERABLES Final Res ult [facility] [employer] [facility] [address] [place] [address], * (ABNORMAL) BMP - Basic Metabolic Panel (06/10/2021 3:53 AM EDT) NA 135 135 - 145 mmol/L 06/10/2021 4:30 AM EDT [facility] K 5.3 3.5 - 5.3 mmol/L 06/10/2021 4:30 AM ED [facility] Cl 97 97 - 110 mmol/L 06/10/2021 4:30 AM [employer] [facility] CO2 26 24 - 32 mmol/L 06/10/2021 4:30 AM [facility] [employer] [facility] BUN 43(H) 7 - 23 mg/dL 06/10/2021 4:30 AM EDT [facility] Creatinine 2.02(H) 0.50 - 1.20 mg/dL 06/10/2021 4:30 AM ED [facility] Glucose 107(H) 70 - 99 mg/dL 06/10/2021 4:30 AM [employer] [facility] Calcium 10.1 8.7 - 10.7 mg/dL 06/10/2021 4:30 AM [facility] [facility] Anion Gap 12 5 - 15 06/10/2021 4:30 AM [employer] [facility] eGFR 28(L) >=90 mL/min/1. 73m2 06/10/2021 4:30 AM [employer] [facility] [facility] Comment: Estimated Glomerular Filtration [...] [facility] [address] [place] [address], [place] from Last 3 Months or Most Recently Relevant to Health Maintenance Insurance MEDICARE [facility] Care Teams Call Center Assistant Relationship Specialty Start Date End Date Patient, Has No Pcp Or Ref DO NOT EDIT THIS RECORD VIA PROVIDER ON THE FLY PCP - General Production Miner 06/10/21
[2024-05-18 16:39] LABS: Alanine Aminotransferase 8 U/L (0-31); Albumin Level 3.8 g/dL (3.5-5.0); Alkaline Phosphatase 58 U/L (39-117); Anion Gap 15 (12-20); Aspartate Amino Transferase 27 U/L (5-31); Bilirubin Total 0.2 mg/dL (0.0-1.0); Blood Urea Nitrogen 37 mg/dL (9-16); Calcium 8.3 mg/dL (8.4-10.2); Carbon Dioxide 26 mmol/L (22-29); Chloride 107 mmol/L (96-108); Cholesterol 117 mg/dL (<200); Estimated Glomerular Filt Rate 12; Glucose Fasting 84 mg/dL (60-99); HDL Cholesterol 36 mg/dL (>40); LDL Cholesterol Calculated 57 mg/dL (<100); Potassium 4.8 mmol/L (3.3-5.1); Sodium 143 mmol/L (135-145); Total Protein 6.7 g/dL (6.5-8.0); Triglycerides 121 mg/dL (<150)
== END 2024-05-18 13:15 | disposition home or self-care (01) ==
LOC: HO.HMGCLDS 13:14
PROVIDERS: Nurse Practitioner Family; PCP Internal Medicine; Visit Provider Internal Medicine Hypertension Specialist
DX: E78.5 Hyperlipidemia, unspecified (principal)
CPT/HCPCS: 36415; 80053; 80061

== ENCOUNTER 2024-05-30 15:35 | Outpatient (AMB) | payer MEDICARE, SELFPAY ==
[2024-05-30 15:35] VITALS: BP 124/68; PULSE 103; O2SAT 92; BMI 40.5
--- NOTE | 2024-05-30 15:35 | HO.NEPHOV_ITS ---
Vital Signs 05/30/24 15:35 Height 5 ft 1 in Weight 214 lb 4 oz BMI 40.5 BP 124/68 Blood Pressure Location Lt brachial Position Sitting Pulse 103 H Pulse Source Pulse Oximeter Pulse Oximetry (%) 92 Oxygen Delivery Method Nasal Cannula Oxygen Flow Rate 2 Intake Visit Reasons: Follow-up/ LVM Accompanied by: Friend Allergies ciprofloxacin [From Cipro] Allergy (Severe, Verified 05/30/24 15:37) HIVES/SWELLING, THROAT CLOSES shellfish derived [SHELLFISH DERIVED] Allergy (Intermediate, Verified 05/30/24 15:37) Vomiting NSAIDS (Non-Steroidal Anti-Inflamma Adverse Reaction (Severe, Verified 05/30/24 15:37) Avoid due to kidney disease Medication List - Last Reconciled 05/30/24 by Fermin Muhammad MD acetaminophen 650 mg PO Q6H PRN aspirin 81 mg PO DAILY atorvastatin 10 mg PO BEDTIME azithromycin 250 mg PO 3XW 30 days Breo Ellipta 100-25 mcg/dose (fluticasone furoate-vilanterol) 1 ea PO DAILY 90 days NS carvedilol 3.125 mg PO BID cinacalcet 30 mg PO DAILY fluticasone propionate 50 mcg/actuation 1 spray intranasal DAILY gabapentin 100 mg PO DAILY PRN guaifenesin ER (Mucinex) 600 mg PO BID PRN hydroxyzine pamoate 100 mg PO BEDTIME PRN ipratropium-albuterol 0.5 mg-3 mg(2.5 mg base)/3 mL 3 mL inhalation Q4-6H PRN lorazepam 1 mg PO BID PRN methadone 70 mg PO DAILY prednisone 5 mg PO DAILY 30 days sodium zirconium cyclosilicate (Lokelma) 10 grams PO DAILY torsemide 20 mg PO BID HPI Comments Details: 64 years old female with advanced chronic obstructive pulmonary disease and chronic respiratory failure, on oxygen, and treated for acute exacerbation of COPD/respiratory failure, was able to normalize blood gases with aggressive treatment. She has advanced CKD approaching end stage renal disease. She has significant fluid overload requiring high-dose of diuretics. She is here for further follow-up. Recently admitted for respiratory illness and was treated with a course of prednisone. During hospitalization diltiazem has been discontinued but she is still taking it. 02/22/23: Doing better;No new issues 05/25/2023. Overall doing well. Recently missed Neurology appointment due to logistical issues. Respiratory status remains unchanged. Leg edema remains stable 12/02/23; Still with dyspnea;Weight is better ;Was on prednisone with some improvement in breathing 02/10/2024. Complains of cough with clear sputum. Weight is relatively stable. Appetite is fair. After increasing calcitriol to 1 mcg a day PTH has decreased from 1300 down to 364 04/18/24 ;Lot of family issues. Son on life support. No nausea/vomiting ;No dyspnea at rest ; Televisit 05/30/24 Here for follow up No change in respiration [facility] Medical History Respiratory failure with hypoxia Dyslipidemia History of lung cancer Hx of bronchitis CKD (chronic kidney disease) stage 4, GFR 15-29 ml/min Morbid obesity COPD (chronic obstructive pulmonary disease) Polysubstance abuse Respiratory failure with hypoxia and hypercapnia Ambulates with cane Seasonal allergies Herpes zoster Osteopenia (~2017) Respiratory failure COVID-19 (~03/2021) Osteoarthritis of ankles, bilateral Olecranon bursitis of left elbow Tubulovillous adenoma of large intestine (~2020) Hx of cardiac arrest (~2015) O2 dependent Methadone maintenance therapy patient History of claustrophobia History of seizure Anxiety and depression HTN (hypertension) Multiple fractures of ribs Anemia in chronic kidney disease Vitamin D deficiency Family history of colon cancer Restrictive lung disease LEO (obstructive sleep apnea) Surgical History Hx of tracheostomy History of esophagogastroduodenoscopy (EGD) (~2021) History of removal of ureteral stent (~2013) History of lung biopsy (~2019) History of colonoscopy (~2020) Umbilical hernia History of laparoscopy (~2012) History of hand surgery History of tubal ligation Family History Father Diabetes mellitus Mother Depression Mental health disorder Maternal Grandfather Colon cancer Sister No problems noted. Son No problems noted. Daughter No problems noted. Daughter No problems noted. Social History Household Members: Unknown / Unable to assess Housing: House Housing Other:: mobile home Are you a primary career placement services counselor to a significant other at home: No Do you presently have visiting nurse or other home services: No Unable to assess alcohol history related to: Unable to respond Alcohol intake: never Comment: restraints Patient Tobacco Use Status: Former Tobacco user Tobacco use type: Cigarette Years Smoked: 25 yrs e-Cigarette/Vaping Use: Never Used Substance Use Type: Heroin Advance Directives Date on File: 03/21/21 service: No Current occupational status: unemployed and disabled Cognitive needs: No Hearing needs: No Vision needs: No Physical Exam Vital Signs: Last Vital Signs Pulse 103 H 05/30/24 15:35 BP 124/68 05/30/24 15:35 Pulse Ox 92 05/30/24 15:35 Oxygen Delivery Method Nasal Cannula 05/30/24 15:35 Oxygen Flow Rate 2 05/30/24 15:35 BMI result Body Mass Index 40.5 Const General: comfortable Nutritional Appearance: well nourished Orientation/consciousness: patient oriented x3 HEENT Head: No normal to inspection Mouth: moist mucous membranes Neck Neck: Yes supple and Yes no JVD Resp Auscultation: clear to auscultation bilaterally and no rales Cardio Jugular venous distension: no JVD Palpation: no palpable S3 and no palpable S4 Heart sounds: no rubs GI Palpation (GI): Soft to palpation and nontender Percussion: No Fluid wave present General: Yes no CVA tenderness Back/Spine/Pelvis Back: no CVA tenderness Skin General skin exam: no rashes or lesions noted Neuro General: patient oriented x3 Extrem General: No clubbing Results Reviewed Nephrology Results: Hgb 9.1 g/dl (12.0-16.0) L 04/14/24 WBC 9.8 X10*3/uL (4.8-10.8) 04/14/24 Plt Count 314 X10*3/uL (160-400) 04/14/24 Sodium 143 mmol/L (135-145) 05/18/24 Potassium 4.8 mmol/L (3.3-5.1) 05/18/24 Chloride 107 mmol/L (96-108) 05/18/24 Carbon Dioxide 26 mmol/L (22-29) 05/18/24 BUN 37 mg/dL (9-16) H 05/18/24 Creatinine 3.92 mg/dL (0.5-1.4) H 05/18/24 Calcium 8.3 mg/dL (8.4-10.2) L 05/18/24 PTH Intact 143.4 pg/mL (8.7-77.1) H 04/14/24 Assessment & Plan Assessment & Plan (1) CKD (chronic kidney disease) stage 5, GFR less than 15 ml/min: Code(s): N18.5 - Chronic kidney disease, stage 5 Category: Medical Plan: Advanced CKD approaching end stage renal disease. No overt signs or symptoms of uremia. Goal is to slow the progression of the renal disease. We will continue to watch renal function closely and initiate dialysis when appropriate. REcent Cr 3.9 with EGFR of 12 ml/mt (2) Anemia in chronic kidney disease: Code(s): N18.9 - Chronic kidney disease, unspecified; D63.1 - Anemia in chronic kidney disease Category: Medical Qualifiers: Chronic kidney disease stage: stage 5, not on chronic dialysis Qualified Code(s): N18.5 - Chronic kidney disease, stage 5; D63.1 - Anemia in chronic kidney disease Plan: No absolute indication to start erythropoietin yet. Hct has improved I will follow the hemoglobin along with iron stores and start on epogen as needed. Check Iron/TIBC/Ferritin (3) Acute exacerbation of chronic obstructive pulmonary disease: Code(s): J44.1 - Chronic obstructive pulmonary disease with (acute) exacerbation Category: Medical Plan: Management per PCP Continue DuoNeb updrafts q.i.d. and Breo-100 1 inhalation daily. Mucinex 600 mg b.i.d. also prescribed. (4) HTN (hypertension): Code(s): I10 - Essential (primary) hypertension Category: Medical Plan: Blood pressure is better controlled No need for Cardizem ( was stopped in Jan 2023) Continue with Coreg 3.125 b.i.d.. No changes were made to her diabetic regimen. (5) Secondary hyperparathyroidism: Code(s): N25.81 - Secondary hyperparathyroidism of renal origin Category: Medical Plan: PTH is more than 1600. PTH is down to 148 after adding calcitriol Ca increased and we stopped Calcitriol Cinacalcet was added Ca is low now HOLD Cinacalcet 30 recheck Plan as above Orders: Orders IRON PROFILE 2 Months N18.9 - Chronic kidney disease, unspecified, N25.81 - Secondary hyperparathyroidism of renal origin Basic Metabolic Panel 2 Months N18.9 - Chronic kidney disease, unspecified, N25.81 - Secondary hyperparathyroidism of renal origin Complete Blood Count no Diff 2 Months N18.9 - Chronic kidney disease, unspecified, N25.81 - Secondary hyperparathyroidism of renal origin Parathyroid Hormone Intact 2 Months N18.9 - Chronic kidney disease, unspecified, N25.81 - Secondary hyperparathyroidism of renal origin Phosphorus 2 Months N18.9 - Chronic kidney disease, unspecified, N25.81 - Secondary hyperparathyroidism of renal origin Ferritin 2 Months N18.9 - Chronic kidney disease, unspecified, N25.81 - Secondary hyperparathyroidism of renal origin Medications: On Hold cinacalcet Hold Comment: Doctor's Order 30 mg PO DAILY 30 tabs 2RF Coding Level of Care Code Est Pt Level 4 (82662) Diagnoses CKD (chronic kidney disease) stage 5, GFR less than 15 ml/min N18.5 Anemia in stage 5 chronic kidney disease, not on chronic dialysis N18.5; D63.1 Chronic kidney disease stage: stage 5, not on chronic dialysis Acute exacerbation of chronic obstructive pulmonary disease J44.1 HTN (hypertension) I10 Secondary hyperparathyroidism N25.81
--- OUTSIDE RECORDS SUMMARY | 2024-05-30 18:27 | XMS_ITS | Encounter Summary ---
Author Organization [facility] Address [address] [place] [address] Phone Care Team Providers Care Mri Supervisor Name Role Phone Angel Castano MD Primary Care Provider [phone]- [phone] Encounter Details Date Type Department Care Team (Late st Contact Info) Description 05/04/2022 Telephone [facility] [address] [place] [address] Kitty Menezes MA Social History [...] on filedocumented in this encounter Care Teams Mri Supervisor Relationship Specialty Start Date End Date Angel Castano MD [facility] [place] [id number] PCP - General 02/19/20 documented as of this encounter
--- OUTSIDE RECORDS SUMMARY | 2024-05-30 18:27 | XMS_ITS | Clinical Summary ---
Author Organization [facility] Address [address] [place] [address] Phone Care Team Providers Care Guide Dog Mobility Instructor Name Role Phone Valerie Castano MD Primary [...] 01/31/2024 Chronic obstructive pulmonar y disease (COPD) ([facility] V24, [facility] V28) 01/31/2024 Congenital anomaly of diaphragm 01/31/2024 HTN (hypertension) 01/31/2024 Chronic back pain 01/31/2024 Lung cancer, middle lobe ([facility] V24, [facility] V 28) 12/29/2023 Cancer Staging:Clinical:Stage IB(cT2a, cN0, cM0) - Signed by Lonnie Mercer MD on 12/29/2023 Anemia in chronic kidney disease 08/10/2022 Chronic kidney disease, stag e 4 (severe) ([facility] V24, [facility] V28) 08/10/2022 Hypertensive renal disease 06/20/2020 Degenerative [...] Comments OTHER SURGICAL HISTORY - 1989 PROCEDURE: [place] CAUTERY CERVIX CRYOCAUTERY INITIAL/REPEAT; COMMENT: for abnormal pap OTHER SURGICAL HISTORY PROCEDURE: [place] LIG/TRNSXJ FLP TUBE ABDL/VAG APPR UNI/BI OTHER SURGICAL HISTORY 2012 PROCEDURE: [place] EXPLORATORY LAPAROTOMY CELIOTOMY W/WO BIOPSY SPX; COMMENT: [...] Hypertension/CHF/CAD Annual BMP Blood Test 01/28/2024 06/10/2021 COVID-19 Vaccine (8 - Pfizer risk 2023- season) 2024 12/05/2023, 10/31/2022, 12/26/2021, Additional history exists Colorectal Cancer Screening: FIT-DNA (Cologuard) 10/26/2025 10/26/2022, 10/26/2022 DTaP,Tdap,and Td Vaccines (4 - Td or Tdap) 01/13/2029 01/13/2019, 11/01/2012, 01/27/2010 Zoster Vaccines Completed 10/22/2018, 08/16/2018 Influenza Vaccine Completed 12/05/2023, , 10/03/2021, Additional [...] Insurance MEDICAID - [place] MEDICARE Care Teams Guide Dog Mobility Instructor Relationship Specialty Start Date End Date Valerie Castano MD [address] [place] [address] PCP - General 05/21/10
--- OUTSIDE RECORDS SUMMARY | 2024-05-30 18:27 | XMS_ITS | Clinical Summary ---
Author Organization [facility] Address [address] [place] [address] Care Team Providers Care Bingo Floater Name Role Phone Patient, Has No Pcp [...] complete this topic Procedures * Due to [place] [employer] law, this organization might not be sharing negative HIV tests. Procedure Name Priority Date/Time Associated Diagnosis Comments CBC AUTO DIFFERENTIAL STAT 06/10/2021 3:53 AM EDT BASIC METABOLIC PANEL STAT 06/10/2021 3:53 AM EDT from Last 3 Months or Most Recently Relevant to Health Maintenance Results * Due to [place] [employer] law, this organization might not be sharing negative HIV tests. * (ABNORMAL) CBC Auto Differential (06/10/2021 3:53 AM EDT) WBC 8.2 4.3 - 10.8 10*3/uL 06/10/2021 4:37 AM EDT [facility] RBC 4.29 3.80 - 5.10 10*6/uL 06/10/2021 4:37 AM EDT [facility] Hemoglobin 11.8 11.7 - 15.5 g/dL 06/10/2021 4:37 AM EDT [facility] Hematocrit 36.2 35.0 - 46.0 % 06/10/2021 4:37 AM EDT [facility] MCV 84.4 80.0 - 100.0 fL 06/10/2021 4:37 AM EDT [facility] MCH 27.5 27.0 - 34.0 pg 06/10/2021 4:37 AM EDT [facility] MCHC 32.6 29.0 - 36.0 g/dL 06/10/2021 4:37 AM EDT [facility] RDW 19.0(H) 11.0 - 15.0 % 06/10/2021 4:37 AM EDT [facility] Platelets 412 140 - 440 10*3/uL 06/10/2021 4:37 AM EDT [facility] MPV 6.9(L) 7.6 - 11.6 fL 06/10/2021 4:37 AM EDT [facility] Neutrophil % 45.6 % 06/10/2021 4:37 AM EDT [facility] Lymphocyte % 31.0 % 06/10/2021 4:37 AM EDT [facility] Monocyte % 16.3 % 06/10/2021 4:37 AM EDT [facility] Eosinophil % 6.4 % 06/10/2021 4:37 AM EDT [facility] Basophil % 0.7 % 06/10/2021 4:37 AM EDT [facility] Neutrophil # 3.74 1.60 - 7.50 10*3/uL 06/10/2021 4:37 AM EDT [facility] Lymphocyte # 2.5 0.9 - 3.4 10*3/uL 06/10/2021 4:37 AM EDT [facility] Monocyte # 1.3(H) 0.0 - 1.2 10*3/uL 06/10/2021 4:37 AM EDT [facility] Eosinophil # 0.5 0.0 - 0.6 10*3/uL 06/10/2021 4:37 AM EDT [facility] Basophil # 0.1 0.0 - 0.3 10*3/uL 06/10/2021 4:37 AM EDT [facility] [facility] Smear Review? No [facility] 06/10/2021 4:37 AM EDT [facility] [facility] Blood Structure of peripheral vein / Unknown Venipuncture / Unknown 06/10/2021 3:53 AM EDT 06/10/2021 4:20 AM EDT us Francesco Lam MD LAB BLOOD ORDERABLES Final Res ult [facility] [address] [place] [address], * (ABNORMAL) BMP - Basic Metabolic Panel (06/10/2021 3:53 AM EDT) NA 135 135 - 145 mmol/L 06/10/2021 4:30 AM EDT [facility] [facility] K 5.3 3.5 - 5.3 mmol/L 06/10/2021 4:30 AM EDT [facility] [employer] [facility] Cl 97 97 - 110 mmol/L 06/10/2021 4:30 AM EDT [facility] CO2 26 24 - 32 mmol/L 06/10/2021 4:30 AM EDT [employer] [facility] BUN 43(H) 7 - 23 mg/dL 06/10/2021 4:30 AM EDT [employer] [facility] Creatinine 2.02(H) 0.50 - 1.20 mg/dL 06/10/2021 4:30 AM EDT [employer] [facility] Glucose 107(H) 70 - 99 mg/dL 06/10/2021 4:30 AM EDT [employer] [facility] Calcium 10.1 8.7 - 10.7 mg/dL 06/10/2021 4:30 AM EDT [employer] [facility] Anion Gap 12 5 - 15 06/10/2021 4:30 AM EDT [facility] eGFR 28(L) >=90 mL/min/1. 73m2 06/10/2021 4:30 AM EDT [employer] [facility] Comment: Estimated Glomerular Filtration [...] [facility] [address] [place] [address], from Last 3 Months or Most Recently Relevant to Health Maintenance Insurance MEDICARE [facility] Care Teams Bingo Floater Relationship Specialty Start Date End Date Patient, Has No Pcp Or Ref DO NOT EDIT THIS RECORD VIA PROVIDER ON THE FLY PCP - General Clubhouse Attendant 06/10/21
--- OUTSIDE RECORDS SUMMARY | 2024-05-30 18:27 | XMS_ITS | Referral Summary ---
Author Organization [facility] Address [address] [place] [address] Care Team Providers Care Back End Architect Name Role Phone Patient, Has No Pcp [...] Not on file Procedures * Due to [place] state law, this organization might not be sharing negative HIV tests. Procedure Name Priority Date/Time Associated Diagnosis Comments CBC AUTO DIFFERENTIAL STAT 06/10/2021 3:53 AM EDT BASIC METABOLIC PANEL STAT 06/10/2021 3:53 AM EDT from Last 3 Months or Most Recently Relevant to Health Maintenance Results * Due to [place] state law, this organization might not be [...] % 16.3 % 06/10/2021 4:37 AM EDT [facility] Eosinophil % 6.4 % 06/10/2021 4:37 AM EDT [facility] [employer] [facility] Basophil % 0.7 % 06/10/2021 4:37 AM EDT [facility] [employer] [facility] Neutrophil # 3.74 1.60 - 7.50 10*3/uL 06/10/2021 4:37 AM EDT [facility] Lymphocyte # 2.5 0.9 - 3.4 10*3/uL 06/10/2021 4:37 AM EDT [facility] [employer] [facility] Monocyte # 1.3(H) 0.0 - 1.2 10*3/uL 06/10/2021 4:37 AM EDT [facility] Eosinophil # 0.5 0.0 - 0.6 10*3/uL 06/10/2021 4:37 AM EDT [facility] Basophil # 0.1 0.0 - 0.3 10*3/uL 06/10/2021 4:37 AM EDT [facility] Smear Review? No [facility] 06/10/2021 4:37 AM EDT [facility] Blood Structure of peripheral vein / Unknown Venipuncture / Unknown 06/10/2021 3:53 AM EDT 06/10/2021 4:20 AM EDT us Francesco Lam MD LAB BLOOD ORDERABLES Final Res ult [facility] [address] [place] [address], * (ABNORMAL) BMP - Basic Metabolic Panel (06/10/2021 3:53 AM EDT) NA 135 135 - 145 mmol/L 06/10/2021 4:30 AM EDT [facility] [facility] K 5.3 3.5 - 5.3 mmol/L 06/10/2021 4:30 AM ED [facility] [facility] Cl 97 97 - 110 mmol/L 06/10/2021 4:30 AM [employer] [facility] CO2 26 24 - 32 mmol/L 06/10/2021 4:30 AM [facility] [employer] [facility] BUN 43(H) 7 - 23 mg/dL 06/10/2021 4:30 AM EDT [employer] [facility] Creatinine 2.02(H) 0.50 - 1.20 mg/dL 06/10/2021 4:30 AM ED [facility] [facility] Glucose 107(H) 70 - 99 mg/dL 06/10/2021 4:30 AM [employer] [facility] Calcium 10.1 8.7 - 10.7 mg/dL 06/10/2021 4:30 AM [facility] [employer] [facility] Anion Gap 12 5 - 15 06/10/2021 4:30 AM [employer] [facility] eGFR 28(L) >=90 mL/min/1. 73m2 06/10/2021 4:30 AM [employer] [facility] Comment: Estimated Glomerular Filtration [...] [facility] [address] [place] [address], [place] from Last 3 Months or Most Recently Relevant to Health Maintenance Insurance MEDICARE [facility] Care Teams Back End Architect Relationship Specialty Start Date End Date Patient, Has No Pcp Or Ref DO NOT EDIT THIS RECORD VIA PROVIDER ON THE FLY PCP - General Datapower Developer 06/10/21
--- OUTSIDE RECORDS SUMMARY | 2024-05-30 18:27 | XMS_ITS | Clinical Summary ---
Author Organization [facility] Address [address] [place] [address] [address] [place] [address] Phone Care Team Providers Care Investor Relations Director Name Role Phone Angel Castano MD Primary Care Provider +1- [phone] Allergies Active Allergy Reactions Criticality Noted Date [...] stage I through stage IV, or unspecified [address] Units IJ Every 14 days 11/22/2020 Active [...] Colorectal Cancer Screening: Sigmoidoscopy 05/30/2011 Pneumococcal Vaccine: 50+ Years (3 of 3 - PCV) 03/22/2013 03/22/2012, 05/18/2011 Influenza Vaccine (Season Ended) 2024 Pneumococcal Vaccine: Peds ( 0 to 5 Years) and At-Risk Patients (6 to 49 Years) Discontinued 03/22/2012, 05/18/2011 Hepatitis B Vaccine Aged Out No longe r eligible based on patient's age to complete this topic Insurance [address] [place] [address] Medicare Medicaid [place] Medicare [place] Care Teams Investor Relations Director Relationship Specialty Start Date End Date Angel Castano MD [address] [place] [id number] PCP - General 02/19/20
== END 2024-05-30 15:52 | disposition home or self-care (01) ==
LOC: HO.HKA 15:35
PROVIDERS: PCP Internal Medicine; Visit Provider Internal Medicine Hypertension Specialist
DX: N18.5 Chronic kidney disease, stage 5 (principal); D63.1 Anemia in chronic kidney disease; J44.1 Chronic obstructive pulmonary disease with (acute) exacerbation; I12.0 Hypertensive chronic kidney disease with stage 5 chronic kidney disease or end stage renal disease; N25.81 Secondary hyperparathyroidism of renal origin
CPT/HCPCS: 99214

== ENCOUNTER → 2024-05-30 15:35 | Outpatient (BNVA) | payer MEDICARE, SELFPAY | PROVIDERS: PCP Internal Medicine; Visit Provider Internal Medicine Hypertension Specialist | DX: I12.9 Hypertensive chronic kidney disease with stage 1 through stage 4 chronic kidney disease, or unspecified chronic kidney disease (principal); N18.5 Chronic kidney disease, stage 5; D63.1 Anemia in chronic kidney disease; J44.1 Chronic obstructive pulmonary disease with (acute) exacerbation; N25.81 Secondary hyperparathyroidism of renal origin | CPT/HCPCS: 99212 ==

== ENCOUNTER 2024-06-07 16:00 | Outpatient (AMB) | payer MEDICARE, SELFPAY ==
[2024-06-07 16:06] VITALS: BP 94/60; PULSE 79; O2SAT 94
--- NOTE | 2024-06-07 16:06 | MHC.OFFVIS ---
Vital Signs 06/07/24 16:06 Height 5 ft 1 in BP 94/60 Blood Pressure Location Lt brachial Position Sitting Pulse 79 Pulse Source Pulse Oximeter Pulse Oximetry (%) 94 Oxygen Delivery Method Nasal Cannula Oxygen Flow Rate 3 Intake Visit Reasons: copd Allergies ciprofloxacin [From Cipro] Allergy (Severe, Verified 06/07/24 16:11) HIVES/SWELLING, THROAT CLOSES shellfish derived [SHELLFISH DERIVED] Allergy (Intermediate, Verified 06/07/24 16:11) Vomiting NSAIDS (Non-Steroidal Anti-Inflamma Adverse Reaction (Severe, Verified 06/07/24 16:11) Avoid due to kidney disease Medication List - Last Reconciled 06/07/24 by Mayte Cochran MD acetaminophen 650 mg PO Q6H PRN aspirin 81 mg PO DAILY atorvastatin 10 mg PO BEDTIME azithromycin 250 mg PO 3XW 30 days Breo Ellipta 100-25 mcg/dose (fluticasone furoate-vilanterol) 1 ea PO DAILY 90 days NS carvedilol 3.125 mg PO BID cinacalcet 30 mg PO DAILY fluticasone propionate 50 mcg/actuation 1 spray intranasal DAILY gabapentin 100 mg PO DAILY PRN guaifenesin ER (Mucinex) 600 mg PO BID PRN hydroxyzine pamoate 100 mg PO BEDTIME PRN ipratropium-albuterol 0.5 mg-3 mg(2.5 mg base)/3 mL 3 mL inhalation Q4-6H PRN lorazepam 1 mg PO BID PRN methadone 70 mg PO DAILY prednisone 5 mg PO DAILY 30 days sodium zirconium cyclosilicate (Lokelma) 10 grams PO DAILY torsemide 20 mg PO BID PFSH Medical History Respiratory failure with hypoxia Dyslipidemia History of lung cancer Hx of bronchitis CKD (chronic kidney disease) stage 4, GFR 15-29 ml/min Morbid obesity COPD (chronic obstructive pulmonary disease) Polysubstance abuse Respiratory failure with hypoxia and hypercapnia Ambulates with cane Seasonal allergies Herpes zoster Osteopenia (~2017) Respiratory failure COVID-19 (~03/2021) Osteoarthritis of ankles, bilateral Olecranon bursitis of left elbow Tubulovillous adenoma of large intestine (~2020) Hx of cardiac arrest (~2015) O2 dependent Methadone maintenance therapy patient History of claustrophobia History of seizure Anxiety and depression HTN (hypertension) Multiple fractures of ribs Anemia in chronic kidney disease Vitamin D deficiency Family history of colon cancer Restrictive lung disease LEO (obstructive sleep apnea) Surgical History Hx of tracheostomy History of esophagogastroduodenoscopy (EGD) (~2021) History of removal of ureteral stent (~2013) History of lung biopsy (~2019) History of colonoscopy (~2020) Umbilical hernia History of laparoscopy (~2012) History of hand surgery History of tubal ligation Family History Father Diabetes mellitus Mother Depression Mental health disorder Maternal Grandfather Colon cancer Sister No problems noted. Son No problems noted. Daughter No problems noted. Daughter No problems noted. Social History Household Members: Unknown / Unable to assess Housing: House Housing Other:: mobile home Are you a primary direct care worker to a significant other at home: No Do you presently have visiting nurse or other home services: No Unable to assess alcohol history related to: Unable to respond Alcohol intake: never Comment: restraints Patient Tobacco Use Status: Former Tobacco user Tobacco use type: Cigarette Years Smoked: 25 yrs e-Cigarette/Vaping Use: Never Used Substance Use Type: Heroin Advance Directives Date on File: 03/21/21 service: No Current occupational status: unemployed and disabled Cognitive needs: No Hearing needs: No Vision needs: No Physical Exam Vital Signs: Last Vital Signs BP 94/60 06/07/24 16:06 Coding
--- NOTE | 2024-06-07 16:24 | MHC.OFFVIS ---
Vital Signs 06/07/24 16:06 Height 5 ft 1 in BP 94/60 Blood Pressure Location Lt brachial Position Sitting Pulse 79 Pulse Source Pulse Oximeter Pulse Oximetry (%) 94 Oxygen Delivery Method Nasal Cannula Oxygen Flow Rate 3 Intake Visit Reasons: copd Allergies ciprofloxacin [From Cipro] Allergy (Severe, Verified 06/07/24 16:24) HIVES/SWELLING, THROAT CLOSES shellfish derived [SHELLFISH DERIVED] Allergy (Intermediate, Verified 06/07/24 16:24) Vomiting NSAIDS (Non-Steroidal Anti-Inflamma Adverse Reaction (Severe, Verified 06/07/24 16:24) Avoid due to kidney disease Medication List - Last Reconciled 06/07/24 by Mayte Cochran MD acetaminophen 650 mg PO Q6H PRN aspirin 81 mg PO DAILY atorvastatin 10 mg PO BEDTIME azithromycin 250 mg PO 3XW 30 days Breo Ellipta 100-25 mcg/dose (fluticasone furoate-vilanterol) 1 ea PO DAILY 90 days NS carvedilol 3.125 mg PO BID cinacalcet 30 mg PO DAILY fluticasone propionate 50 mcg/actuation 1 spray intranasal DAILY gabapentin 100 mg PO DAILY PRN guaifenesin ER (Mucinex) 600 mg PO BID PRN hydroxyzine pamoate 100 mg PO BEDTIME PRN ipratropium-albuterol 0.5 mg-3 mg(2.5 mg base)/3 mL 3 mL inhalation Q4-6H PRN lorazepam 1 mg PO BID PRN methadone 70 mg PO DAILY prednisone 5 mg PO DAILY 30 days sodium zirconium cyclosilicate (Lokelma) 10 grams PO DAILY torsemide 20 mg PO BID Do you need a note to return to daycare/school/sports/work: No HPI HPI copd: Details: Deirdre is 64 years old female, a case of chronic obstructive pulmonary disease, morbid obesity, chronic hypoventilation syndrome and respiratory failure. She has past history of opioid addiction, currently she is on methadone 70 mg daily. She claims that she is stable. Denies any respiratory distress. Stays on O2 3 L/minute. She is frequently sleepy during the daytime. She did not have any respiratory infection in the last 3 months. [facility] Medical History Respiratory failure with hypoxia Dyslipidemia History of lung cancer Hx of bronchitis CKD (chronic kidney disease) stage 4, GFR 15-29 ml/min Morbid obesity COPD (chronic obstructive pulmonary disease) Polysubstance abuse Respiratory failure with hypoxia and hypercapnia Ambulates with cane Seasonal allergies Herpes zoster Osteopenia (~2017) Respiratory failure COVID-19 (~03/2021) Osteoarthritis of ankles, bilateral Olecranon bursitis of left elbow Tubulovillous adenoma of large intestine (~2020) Hx of cardiac arrest (~2015) O2 dependent Methadone maintenance therapy patient History of claustrophobia History of seizure Anxiety and depression HTN (hypertension) Multiple fractures of ribs Anemia in chronic kidney disease Vitamin D deficiency Family history of colon cancer Restrictive lung disease LEO (obstructive sleep apnea) Surgical History Hx of tracheostomy History of esophagogastroduodenoscopy (EGD) (~2021) History of removal of ureteral stent (~2013) History of lung biopsy (~2019) History of colonoscopy (~2020) Umbilical hernia History of laparoscopy (~2012) History of hand surgery History of tubal ligation Family History Father Diabetes mellitus Mother Depression Mental health disorder Maternal Grandfather Colon cancer Sister No problems noted. Son No problems noted. Daughter No problems noted. Daughter No problems noted. Social History Household Members: Unknown / Unable to assess Housing: House Housing Other:: mobile home Are you a primary critical care unit nurse to a significant other at home: No Do you presently have visiting nurse or other home services: No Unable to assess alcohol history related to: Unable to respond Alcohol intake: never Comment: restraints Patient Tobacco Use Status: Former Tobacco user Tobacco use type: Cigarette Years Smoked: 25 yrs e-Cigarette/Vaping Use: Never Used Substance Use Type: Heroin Advance Directives Date on File: 03/21/21 service: No Current occupational status: unemployed and disabled Cognitive needs: No Hearing needs: No Vision needs: No Review of Systems Const All systems reviewed & are unremarkable except as noted in HPI and below Eyes Reports no additional complaints ENT Reports no additional complaints Card Denies chest pain, Denies irregular heart rhythm and Denies leg edema Resp Reports as per HPI and Reports other (RIGHT-SIDED RIBCAGE PAIN IS NEW DUE TO THE FALL AT HOME) GI Denies no additional complaints Denies no additional complaints Musc Reports abnormal gait (IMPAIRED LOCOMOTION, WALKS SLOW, WITH MINIMAL SUPPORT) and Reports back pain Skin/Breast Reports system reviewed and no additional complaints, except as documented Neuro Reports abnormal gait (IMPAIRED LOCOMOTION, WALKS SLOW, WITH MINIMAL SUPPORT) Psych Reports no additional complaints Physical Exam Vital Signs: Last Vital Signs Pulse 79 06/07/24 16:06 BP 94/60 06/07/24 16:06 Pulse Ox 94 06/07/24 16:06 Oxygen Delivery Method Nasal Cannula 06/07/24 16:06 Oxygen Flow Rate 3 06/07/24 16:06 Const General: comfortable, no acute distress, alert, awake and other (WALKS SLOWLY, WITH THE HELP OF A CANE.) Orientation/consciousness: patient oriented x3 HEENT Head: Yes normal to inspection General nose exam: No nasal polyps present and No nasal discharge present Face and sinus: Yes sinuses nontender Mouth: oropharynx normal Teeth and gingiva: other (THROAT IS CLEAR NO THRUSH AND NO EXTRA MUCUS NOTED) Throat: Yes posterior oropharynx normal Eyes General: appearance normal, both eyes and all related structures Neck Neck: Yes normal visual inspection, Yes no lymphadenopathy, Yes trachea midline and Yes no JVD Thyroid: Thyroid normal Chest Chest palpation & inspection: normal inspection of the chest, normal palpation of entire chest wall and no tenderness Resp Other: PERCUSSION NOTE IS RESONANT, BREATH SOUNDS ARE VERY DISTANT BUT EQUAL ON BOTH SIDES. NO WHEEZES OR RHONCHI ARE HEARD TODAY. Cardio Palpation: PMI not normal (PMI IS NOT PALPABLE.) and other Rate: regular rate Rhythm: regular rhythm Heart sounds: no gallops and no murmurs GI Palpation (GI): Soft to palpation, nontender, No hepatosplenomegaly present, no masses and Other GI palpation findings present (ABDOMEN IS OBESE AND PROTUBERANT) Auscultation: normal bowel sounds Back/Spine/Pelvis Thoracic/Lumbar Spine: thoracic and lumbar spine normal to inspection and thoraco-lumbar ROM limited Skin General skin exam: no rashes or lesions noted Neuro General: patient oriented x3, No gait normal (GAIT IS SLOW AND SLIGHTLY UNSTABLE PATIENT NEEDS A CANE TO WALK) and no focal motor deficits Cranial nerves: Yes CN's II-XII intact bilaterally Extrem General: Yes normal to inspection, Yes no calf tenderness and Yes edema (CHRONIC STASIS EDEMA OF THE LEGS) Psych Appearance: grossly normal and well kempt Speech and movement: Normal speech and movement present Assessment & Plan Assessment & Plan (1) Morbid obesity: Comment: SHE IS CHRONICALLY OBESE MAINLY DUE TO LACK OF PHYSICAL ACTIVITY. DENIES SYMPTOMS OF SLEEP APNEA. SHE HAS VERY POOR SLEEP AT NIGHT KEEPS ON WAKING, AND SHE DOES HAVE FREQUENT DOZING OFF DURING THE DAYTIME. Code(s): E66.01 - Morbid (severe) obesity due to excess calories Category: Medical Plan: TALKED ABOUT THE WEIGHT BUT SHE IS IN A NO POSITION TO LOSE WEIGHT. (2) COPD (chronic obstructive pulmonary disease): Comment: PATIENT HAS LONG-STANDING HISTORY OF CHRONIC OBSTRUCTIVE PULMONARY DISEASE PRIMARILY DUE TO HER LONG TIME SMOKING, SHE QUIT EARLIER IN 2022. GETS FREQUENT ACUTE EXACERBATIONS,. CURRENTLY SHE IS ON PREDNISONE 5 MG EVERY DAY, AND SHE ALSO STAYS ON AZITHROMYCIN 3 DAYS A WEEK. Code(s): J44.9 - Chronic obstructive pulmonary disease, unspecified Category: Medical Plan: ADVISED TO CONTINUE BREO ELLIPTA 100-25 1 INHALATION DAILY IPRATROPIUM-ALBUTEROL SOLUTION IN THE NEBULIZER Q 6 HOURS WHILE AWAKE AND P.R.N. IF THERE IS ANY ACUTE DISTRESS PREDNISONE 5 MG REDUCED TO ALTERNATE DAYS. AZITHROMYCIN 250 MG 3 DAYS A WEEK (M.W.F. ) MUCINEX 600 MG B.I.D. P.R.N. (3) Respiratory failure with hypoxia: Comment: PATIENT HAS LONGSTANDING HISTORY OF HYPOXEMIA TREATED WITH THE OXYGEN. Code(s): J96.91 - Respiratory failure, unspecified with hypoxia Category: Medical Plan: CONTINUE O2 3 L/MINUTE Coding Level of Care Code Est Pt Level 3 (99525) Diagnoses Morbid obesity E66.01 COPD (chronic obstructive pulmonary disease) J44.9 Respiratory failure with hypoxia J96.91
--- OUTSIDE RECORDS SUMMARY | 2024-06-07 16:39 | XMS_ITS | Clinical Summary ---
Author Organization [facility] Address [address] [place] [address] [address] [place] [address] Phone Care Team Providers Care Trigonometry Tutor Name Role Phone Angel Castano MD Primary Care Provider [phone]- [phone] Allergies Active Allergy Reactions Criticality Noted Date [...] stage I through stage IV, or unspecified 48846 Units IJ Every 14 days 11/22/2020 Active [...] to complete this topic Insurance [address] [place] [address] Medicare Medicaid [place] Care Teams Trigonometry Tutor Relationship Specialty Start Date End Date Angel Castano MD [address] [place] [id number] PCP - General 02/19/20
--- OUTSIDE RECORDS SUMMARY | 2024-06-07 16:39 | XMS_ITS | Clinical Summary ---
Author Organization [facility] Address [address] [place] [address] Care Team Providers Care Swimming Pool Attendant Name Role Phone Patient, Has No Pcp [...] complete this topic Procedures * Due to [place] law, this organization might not be sharing negative HIV tests. Procedure Name Priority Date/Time Associated Diagnosis Comments CBC AUTO DIFFERENTIAL STAT 06/10/2021 3:53 AM EDT BASIC METABOLIC PANEL STAT 06/10/2021 3:53 AM EDT from Last 3 Months or Most Recently Relevant to Health Maintenance Results * Due to [place] Missing[place] law, this organization might not be sharing negative HIV tests. * (ABNORMAL) CBC Auto Differential (06/10/2021 3:53 AM EDT) WBC 8.2 4.3 - 10.8 10*3/uL 06/10/2021 4:37 AM EDT [facility] RBC 4.29 3.80 - 5.10 10*6/uL 06/10/2021 4:37 AM EDT [facility] Hemoglobin 11.8 11.7 - 15.5 g/dL 06/10/2021 4:37 AM EDT [facility] Hematocrit 36.2 35.0 - 46.0 % 06/10/2021 4:37 AM EDT [facility] MCV 84.4 80.0 - 100.0 fL 06/10/2021 4:37 AM EDT [facility] MCH 27.5 27.0 - 34.0 pg 06/10/2021 4:37 AM EDT [facility] MCHC 32.6 29.0 - 36.0 g/dL 06/10/2021 4:37 AM EDT [facility] RDW 19.0(H) 11.0 - 15.0 % 06/10/2021 4:37 AM EDT [facility] Platelets 412 140 - 440 10*3/uL 06/10/2021 4:37 AM EDT [facility] MPV 6.9(L) 7.6 - 11.6 fL 06/10/2021 4:37 AM EDT [facility] Neutrophil % 45.6 % 06/10/2021 4:37 AM EDT [facility] Lymphocyte % 31.0 % 06/10/2021 4:37 AM EDT [facility] Monocyte % 16.3 % 06/10/2021 4:37 AM EDT [facility] Eosinophil % 6.4 % 06/10/2021 4:37 AM EDT [facility] Basophil % 0.7 % 06/10/2021 4:37 AM EDT [facility] Neutrophil # 3.74 1.60 - 7.50 10*3/uL 06/10/2021 4:37 AM EDT [facility] Lymphocyte # 2.5 0.9 - 3.4 10*3/uL 06/10/2021 4:37 AM EDT [facility] Monocyte # 1.3(H) 0.0 - 1.2 10*3/uL 06/10/2021 4:37 AM EDT [facility] Eosinophil # 0.5 0.0 - 0.6 10*3/uL 06/10/2021 4:37 AM EDT [facility] Basophil # 0.1 0.0 - 0.3 10*3/uL 06/10/2021 4:37 AM EDT [facility] Smear Review? No [place] MANUAL 06/10/2021 4:37 AM EDT [facility] Blood Structure of peripheral vein / Unknown Venipuncture / Unknown 06/10/2021 3:53 AM EDT 06/10/2021 4:20 AM EDT us Francesco Lam MD LAB BLOOD ORDERABLES Final Res ult [facility] [address] [place] [address], * (ABNORMAL) BMP - Basic Metabolic Panel (06/10/2021 3:53 AM EDT) NA 135 135 - 145 mmol/L 06/10/2021 4:30 AM EDT [facility] K 5.3 3.5 - 5.3 mmol/L 06/10/2021 4:30 AM EDT [facility] Cl 97 97 - 110 mmol/L 06/10/2021 4:30 AM EDT [facility] CO2 26 24 - 32 mmol/L 06/10/2021 4:30 AM EDT [facility] BUN 43(H) 7 - 23 mg/dL 06/10/2021 4:30 AM EDT [facility] Creatinine 2.02(H) 0.50 - 1.20 mg/dL 06/10/2021 4:30 AM EDT [facility] Glucose 107(H) 70 - 99 mg/dL 06/10/2021 4:30 AM EDT [facility] Calcium 10.1 8.7 - 10.7 mg/dL 06/10/2021 4:30 AM EDT [facility] Anion Gap 12 5 - 15 06/10/2021 4:30 AM EDT [facility] eGFR 28(L) >=90 mL/min/1. 73m2 06/10/2021 4:30 AM EDT [facility] Comment: Estimated Glomerular Filtration [...] [facility] [address] [place] [address], from Last 3 Months or Most Recently Relevant to Health Maintenance Insurance MEDICARE [facility] Care Teams Swimming Pool Attendant Relationship Specialty Start Date End Date Patient, Has No Pcp Or Ref DO NOT EDIT THIS RECORD VIA PROVIDER ON THE FLY PCP - General Animal Cruelty Investigation Supervisor 06/10/21
--- OUTSIDE RECORDS SUMMARY | 2024-06-07 16:39 | XMS_ITS | Encounter Summary ---
Author Organization [facility] Address [address] [place] [address] Phone Care Team Providers Care Advertising Director Name Role Phone Angel Castano MD Primary Care Provider [phone]- [phone] Encounter Details Date Type Department Care Team (Late st Contact Info) Description 05/04/2022 Telephone [facility] [address] [place] [address] Kitty Menezes [place] Social History [...] on filedocumented in this encounter Care Teams Advertising Director Relationship Specialty Start Date End Date nAgel Castano MD [facility] [place] [id number] PCP - General 02/19/20 documented as of this encounter
--- OUTSIDE RECORDS SUMMARY | 2024-06-07 16:39 | XMS_ITS | Referral Summary ---
Author Organization [facility] Address [address] [place] [address] Care Team Providers Care Car Hopper Name Role Phone Patient, Has No Pcp [...] Not on file Procedures * Due to [place] state law, this organization might not be sharing negative HIV tests. Procedure Name Priority Date/Time Associated Diagnosis Comments CBC AUTO DIFFERENTIAL STAT 06/10/2021 3:53 AM EDT BASIC METABOLIC PANEL STAT 06/10/2021 3:53 AM EDT from Last 3 Months or Most Recently Relevant to Health Maintenance Results * Due to [place] state law, this organization might not be [...] % 16.3 % 06/10/2021 4:37 AM EDT [facility] [employer] [facility] Eosinophil % 6.4 % 06/10/2021 4:37 AM EDT [facility] [employer] [facility] Basophil % 0.7 % 06/10/2021 4:37 AM EDT [facility] [employer] [facility] Neutrophil # 3.74 1.60 - 7.50 10*3/uL 06/10/2021 4:37 AM EDT [facility] [employer] [facility] Lymphocyte # 2.5 0.9 - 3.4 10*3/uL 06/10/2021 4:37 AM EDT [facility] [employer] [facility] Monocyte # 1.3(H) 0.0 - 1.2 10*3/uL 06/10/2021 4:37 AM EDT [facility] [employer] [facility] Eosinophil # 0.5 0.0 - 0.6 10*3/uL 06/10/2021 4:37 AM EDT [facility] [employer] [facility] Basophil # 0.1 0.0 - 0.3 10*3/uL 06/10/2021 4:37 AM EDT [facility] [employer] [facility] Smear Review? No [place] MANUAL 06/10/2021 4:37 AM EDT [facility] [employer] [facility] Blood Structure of peripheral vein / Unknown Venipuncture / Unknown 06/10/2021 3:53 AM EDT 06/10/2021 4:20 AM EDT us Francesco Lam MD LAB BLOOD ORDERABLES Final Res ult [facility] [employer] [facility] [address] [place] [address], * (ABNORMAL) BMP - Basic Metabolic Panel (06/10/2021 3:53 AM EDT) NA 135 135 - 145 mmol/L 06/10/2021 4:30 AM EDT [facility] K 5.3 3.5 - 5.3 mmol/L 06/10/2021 4:30 AM ED [employer] [facility] Cl 97 97 - 110 mmol/L 06/10/2021 4:30 AM Valentin Uzhun [employer] [facility] CO2 26 24 - 32 mmol/L 06/10/2021 4:30 AM [facility] [employer] [facility] BUN 43(H) 7 - 23 mg/dL 06/10/2021 4:30 AM EDT [employer] [facility] Creatinine 2.02(H) 0.50 - 1.20 mg/dL 06/10/2021 4:30 AM ED [employer] [facility] Glucose 107(H) 70 - 99 mg/dL 06/10/2021 4:30 AM Valentin U[facility] [employer] [facility] Calcium 10.1 8.7 - 10.7 mg/dL 06/10/2021 4:30 AM [facility] [employer] [facility] Anion Gap 12 5 - 15 06/10/2021 4:30 AM [facility]in U[facility] [facility] eGFR 28(L) >=90 mL/min/1. 73m2 06/10/2021 4:30 AM Valentin Uzhun [employer] [facility] Comment: Estimated Glomerular Filtration [...] [facility] [address] [place] [address], [place] from Last 3 Months or Most Recently Relevant to Health Maintenance Insurance MEDICARE [facility] Care Teams Car Hopper Relationship Specialty Start Date End Date Patient, Has No Pcp Or Ref DO NOT EDIT THIS RECORD VIA PROVIDER ON THE FLY PCP - General Ammonia Worker 06/10/21
--- OUTSIDE RECORDS SUMMARY | 2024-06-07 16:39 | XMS_ITS | Clinical Summary ---
Author Organization [facility] Address [address] [place] [address] Phone Care Team Providers Care Development Mechanic Name Role Phone Valerie Castano MD Primary [...] 01/31/2024 Chronic obstructive pulmonar y disease (COPD) ([facility] V24, [facility] V28) 01/31/2024 Congenital anomaly of diaphragm 01/31/2024 HTN (hypertension) 01/31/2024 Chronic back pain 01/31/2024 Lung cancer, middle lobe ([facility] V24, [facility] V 28) 12/29/2023 Cancer Staging:Clinical:Stage IB(cT2a, cN0, cM0) - Signed by Lonnie Mercer MD on 12/29/2023 Anemia in chronic kidney disease 08/10/2022 Chronic kidney disease, stag e 4 (severe) ([facility] V24, [facility] V28) 08/10/2022 Hypertensive renal disease 06/20/2020 Degenerative [...] Comments OTHER SURGICAL HISTORY - 1989 PROCEDURE: [place] CAUTERY CERVIX CRYOCAUTERY INITIAL/REPEAT; COMMENT: for abnormal pap OTHER SURGICAL HISTORY PROCEDURE: [place] LIG/TRNSXJ FLP TUBE ABDL/VAG APPR UNI/BI OTHER SURGICAL HISTORY 2012 PROCEDURE: [place] EXPLORATORY LAPAROTOMY CELIOTOMY W/WO BIOPSY SPX; COMMENT: [...] Insurance MEDICAID - [place] MEDICARE Care Teams Development Mechanic Relationship Specialty Start Date End Date Valerie Castano MD [address] [place] [address] PCP - General 05/21/10
== END 2024-06-07 16:25 | disposition home or self-care (01) ==
LOC: HO.HPS 16:01
PROVIDERS: PCP Nurse Practitioner Family; Visit Provider Internal Medicine
DX: E66.01 Morbid (severe) obesity due to excess calories (principal); J44.9 Chronic obstructive pulmonary disease, unspecified; J96.91 Respiratory failure, unspecified with hypoxia
CPT/HCPCS: 99213

== ENCOUNTER → 2024-06-07 16:00 | Outpatient (BNVA) | payer MEDICARE, SELFPAY | PROVIDERS: PCP Nurse Practitioner Family; Visit Provider Internal Medicine | DX: J44.9 Chronic obstructive pulmonary disease, unspecified (principal); E66.01 Morbid (severe) obesity due to excess calories; J96.90 Respiratory failure, unspecified, unspecified whether with hypoxia or hypercapnia; Z99.81 Dependence on supplemental oxygen | CPT/HCPCS: 99212 ==

== ENCOUNTER → 2024-07-04 23:59 | Outpatient (BNV) | payer MEDICARE, MEDICAID, SELFPAY | PROVIDERS: PCP Nurse Practitioner Family; Visit Provider Internal Medicine | DX: N18.4 Chronic kidney disease, stage 4 (severe) (principal); F41.1 Generalized anxiety disorder; E78.5 Hyperlipidemia, unspecified; D64.9 Anemia, unspecified | CPT/HCPCS: G0179 ==

== ENCOUNTER 2024-07-27 12:48 | Outpatient (REF) | payer MEDICARE, MEDICAID, SELFPAY ==
--- OUTSIDE RECORDS SUMMARY | 2024-07-27 13:54 | XMS_ITS | Encounter Summary ---
Author Organization [facility] Address [address] [place] [address] Phone Care Team Providers Care High School Professional Name Role Phone Angel Castano MD Primary Care Provider [phone]- [phone] Encounter Details Date Type Department Care Team (Late st Contact Info) Description 05/04/2022 Telephone [facility] [address] [place] [address] Kitty Menezes MA Social History [...] on filedocumented in this encounter Care Teams High School Professional Relationship Specialty Start Date End Date Angel Castano MD [facility] [place] [id number] PCP - General 02/19/20 documented as of this encounter
[2024-07-27 17:54] LABS: Hematocrit 29.2 % (37.0-47.0); Hemoglobin 8.3 g/dl (12.0-16.0); Mean Corpuscular HGB Conc 28.4 g/dl (31.0-35.0); Mean Corpuscular Hemoglobin 27.4 pg (27.0-33.0); Mean Corpuscular Volume 96.4 fL (80.0-98.0); Mean Platelet Volume 9.5 fL (9.4-12.3); Platelet Count 257 X10*3/uL (160-400); Red Blood Count 3.03 X10*6/uL (4.20-5.50); Red Cell Distribution Width 13.5 % (11.0-16.0); White Blood Count 9.8 X10*3/uL (4.8-10.8)
[2024-07-27 18:09] LABS: Parathyroid Hormone Intact 1345.1 pg/mL (8.7-77.1)
[2024-07-27 18:10] LABS: Ferritin 47 ng/mL (10-250)
[2024-07-27 18:19] LABS: Anion Gap 16 (12-20); Blood Urea Nitrogen 38 mg/dL (9-16); Calcium 9.2 mg/dL (8.4-10.2); Carbon Dioxide 22 mmol/L (22-29); Chloride 112 mmol/L (96-108); Glucose Random 102 mg/dL (60-115); Iron 54 mcg/dL (30-160); Percent Iron Saturation 21 % (15-50); Phosphorus 5.2 mg/dL (2.7-4.5); Potassium 4.8 mmol/L (3.3-5.1); Sodium 145 mmol/L (135-145); Total Iron Binding Capacity 259 mcg/dL (228-428); Unsaturated Iron Binding 205 ug/dL
[2024-07-27 18:52] LABS: Estimated Glomerular Filt Rate 11
== END 2024-07-27 12:49 | disposition home or self-care (01) ==
LOC: HO.HMGCLDS 12:48
PROVIDERS: PCP Internal Medicine; Visit Provider Internal Medicine Hypertension Specialist
DX: N25.81 Secondary hyperparathyroidism of renal origin (principal); N18.9 Chronic kidney disease, unspecified
CPT/HCPCS: 36415; 80048; 82728; 83540; 83970; 84100; 85027

== ENCOUNTER 2024-08-03 15:32 | Outpatient (AMB) | payer MEDICARE, MEDICAID, SELFPAY ==
[2024-08-03 15:39] VITALS: BP 120/90; PULSE 90; O2SAT 99; BMI 40.2
--- NOTE | 2024-08-03 15:39 | MHC.OFFVIS ---
Vital Signs 08/03/24 15:39 Height 5 ft 1 in Weight 212 lb 11.937 oz BMI 40.2 BP 120/90 H Blood Pressure Location Lt brachial Position Sitting Pulse 90 Pulse Source Pulse Oximeter Pulse Oximetry (%) 99 Oxygen Delivery Method Nasal Cannula Oxygen Flow Rate 2 Intake Visit Reasons: COPD Intake Note: pt is here for follow up and states she is feeling okay today, pt needs refill on azithromax, she had her last ct scan at [facility] about 6 months ago, who will follow up now, she is complete at radiation, who follows the ct scans now? And also hx of colon polyps but cannot go under for a repeat, what can you recommend for her to do Cable Layer Required: No Allergies ciprofloxacin (From Cipro) Allergy (Severe, Verified 08/03/24 16:27) HIVES/SWELLING, THROAT CLOSES shellfish derived (SHELLFISH DERIVED) Allergy (Intermediate, Verified 08/03/24 16:27) Vomiting NSAIDS (Non-Steroidal Anti-Inflamma Adverse Reaction (Severe, Verified 08/03/24 16:27) Avoid due to kidney disease Medication List - Last Reconciled 08/03/24 by Mayte Cochran MD acetaminophen 650 mg PO Q6H PRN aspirin 81 mg PO DAILY atorvastatin 10 mg PO BEDTIME azithromycin 250 mg PO 3XW Breo Ellipta 100-25 mcg/dose (fluticasone furoate-vilanterol) 1 ea PO DAILY 90 days NS carvedilol 3.125 mg PO BID cinacalcet 30 mg PO DAILY Held on 05/30/24. Instructions: Doctor's Order fluticasone propionate 50 mcg/actuation 1 spray intranasal DAILY gabapentin 100 mg PO DAILY PRN guaifenesin ER (Mucinex) 600 mg PO BID PRN hydroxyzine pamoate 100 mg PO BEDTIME PRN ipratropium-albuterol 0.5 mg-3 mg(2.5 mg base)/3 mL 3 mL inhalation Q4-6H PRN lorazepam 1 mg PO BID PRN methadone 70 mg PO DAILY prednisone 5 mg PO Q OTHER DAY sodium zirconium cyclosilicate (Lokelma) 10 grams PO DAILY torsemide 20 mg PO BID Do you need a note to return to daycare/school/sports/work: No HPI HPI COPD: Details: Deirdre is here for follow-up after 2 months. COPD and chronic respiratory failure are Staying very stable and controlled at this time She has had no recent acute exacerbation . Continues to be on oxygen 2 L/minute 24 hours a day, and using her inhalers regularly. She does have daytime fatigue and some sleepiness but has had no respiratory distress. 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 She was considered to be very poor candidate for surgery. She was treated with course of radiation therapy, with resolution of that density. And luckily has had no recurrence. She has been followed up by the Rdiotherapy service at [facility] with yearly CAT scans. And now she is discharged from their service . I told her that we will be doing annual LDCT of the chest [facility] Medical History Respiratory failure with hypoxia Dyslipidemia History of lung cancer Hx of bronchitis CKD (chronic kidney disease) stage 4, GFR 15-29 ml/min Morbid obesity COPD (chronic obstructive pulmonary disease) Polysubstance abuse Respiratory failure with hypoxia and hypercapnia Ambulates with cane Seasonal allergies Herpes zoster Osteopenia (~2017) Respiratory failure COVID-19 (~03/2021) Osteoarthritis of ankles, bilateral Olecranon bursitis of left elbow Tubulovillous adenoma of large intestine (~2020) Hx of cardiac arrest (~2015) O2 dependent Methadone maintenance therapy patient History of claustrophobia History of seizure Anxiety and depression HTN (hypertension) Multiple fractures of ribs Anemia in chronic kidney disease Vitamin D deficiency Family history of colon cancer Restrictive lung disease LEO (obstructive sleep apnea) Surgical History Hx of tracheostomy History of esophagogastroduodenoscopy (EGD) (~2021) History of removal of ureteral stent (~2013) History of lung biopsy (~2019) History of colonoscopy (~2020) Umbilical hernia History of laparoscopy (~2012) History of hand surgery History of tubal ligation Family History Father Diabetes mellitus Mother Depression Mental health disorder Maternal Grandfather Colon cancer Sister No problems noted. Son No problems noted. Daughter No problems noted. Daughter No problems noted. Social History Household Members: Unknown / Unable to assess Housing: House Housing Other:: mobile home Are you a primary critical care unit nurse to a significant other at home: No Do you presently have visiting nurse or other home services: No Unable to assess alcohol history related to: Unable to respond Alcohol intake: never Comment: restraints Patient Tobacco Use Status: Former Tobacco user Tobacco use type: Cigarette Years Smoked: 25 yrs e-Cigarette/Vaping Use: Never Used Substance Use Type: Heroin Advance Directives Date on File: 03/21/21 service: No Current occupational status: unemployed and disabled Cognitive needs: No Hearing needs: No Vision needs: No Review of Systems Const All systems reviewed & are unremarkable except as noted in HPI and below Eyes Reports no additional complaints ENT Reports no additional complaints Card Denies chest pain, Denies irregular heart rhythm and Denies leg edema Resp Reports as per HPI and Reports other (RIGHT-SIDED RIBCAGE PAIN IS NEW DUE TO THE FALL AT HOME) GI Denies no additional complaints Denies no additional complaints Musc Reports abnormal gait (IMPAIRED LOCOMOTION, WALKS SLOW, WITH MINIMAL SUPPORT) and Reports back pain Skin/Breast Reports system reviewed and no additional complaints, except as documented Neuro Reports abnormal gait (IMPAIRED LOCOMOTION, WALKS SLOW, WITH MINIMAL SUPPORT) Psych Reports no additional complaints Physical Exam Vital Signs: Last Vital Signs Pulse 90 08/03/24 15:39 BP 120/90 H 08/03/24 15:39 Pulse Ox 99 08/03/24 15:39 Oxygen Delivery Method Nasal Cannula 08/03/24 15:39 Oxygen Flow Rate 2 08/03/24 15:39 BMI result Body Mass Index 40.2 Const General: comfortable, no acute distress, alert, awake and other (WALKS SLOWLY, WITH THE HELP OF A CANE.) Orientation/consciousness: patient oriented x3 HEENT Head: Yes normal to inspection General nose exam: No nasal polyps present and No nasal discharge present Face and sinus: Yes sinuses nontender Mouth: oropharynx normal Teeth and gingiva: other (THROAT IS CLEAR NO THRUSH AND NO EXTRA MUCUS NOTED) Throat: Yes posterior oropharynx normal Eyes General: appearance normal, both eyes and all related structures Neck Neck: Yes normal visual inspection, Yes no lymphadenopathy, Yes trachea midline and Yes no JVD Thyroid: Thyroid normal Chest Chest palpation & inspection: normal inspection of the chest, normal palpation of entire chest wall and no tenderness Resp Other: PERCUSSION NOTE IS RESONANT, BREATH SOUNDS ARE VERY DISTANT BUT EQUAL ON BOTH SIDES. NO WHEEZES OR RHONCHI ARE HEARD TODAY. Cardio Palpation: PMI not normal (PMI IS NOT PALPABLE.) and other Rate: regular rate Rhythm: regular rhythm Heart sounds: no gallops and no murmurs GI Palpation (GI): Soft to palpation, nontender, No hepatosplenomegaly present, no masses and Other GI palpation findings present (ABDOMEN IS OBESE AND PROTUBERANT) Auscultation: normal bowel sounds Back/Spine/Pelvis Thoracic/Lumbar Spine: thoracic and lumbar spine normal to inspection and thoraco-lumbar ROM limited Skin General skin exam: no rashes or lesions noted Neuro General: patient oriented x3, No gait normal (GAIT IS SLOW AND SLIGHTLY UNSTABLE PATIENT NEEDS A CANE TO WALK) and no focal motor deficits Cranial nerves: Yes CN's II-XII intact bilaterally Extrem General: Yes normal to inspection, Yes no calf tenderness and Yes edema (CHRONIC STASIS EDEMA OF THE LEGS) Psych Appearance: grossly normal and well kempt Speech and movement: Normal speech and movement present Assessment & Plan Assessment & Plan (1) COPD (chronic obstructive pulmonary disease): Comment: PATIENT HAS LONG-STANDING HISTORY OF CHRONIC OBSTRUCTIVE PULMONARY DISEASE PRIMARILY DUE TO HER LONG TIME SMOKING, SHE QUIT EARLIER IN 2022. GETS FREQUENT ACUTE EXACERBATIONS, WHICH ARE DEFINITELY MUCH LESS SINCE SHE IS ON AZITHROMYCIN THERAPY. CURRENTLY SHE IS ON PREDNISONE 5 MG EVERY OTHER DAY, AND SHE ALSO STAYS ON AZITHROMYCIN 3 DAYS A WEEK. Code(s): J44.9 - Chronic obstructive pulmonary disease, unspecified Category: Medical Plan: CONTINUE SAME REGIMEN BEFORE, NEW SCRIPT FOR AZITHROMYCIN IS SENT (2) Respiratory failure with hypoxia: Comment: PATIENT HAS LONGSTANDING HISTORY OF HYPOXEMIA TREATED WITH THE OXYGEN. Code(s): J96.91 - Respiratory failure, unspecified with hypoxia Category: Medical Plan: CONTINUE TO USE O2 2 L/MINUTE 24 HOURS A DAY (3) Morbid obesity: Comment: SHE IS CHRONICALLY OBESE MAINLY DUE TO LACK OF PHYSICAL ACTIVITY. DENIES SYMPTOMS OF SLEEP APNEA. SHE HAS VERY POOR SLEEP AT NIGHT. KEEPS ON WAKING, AND SHE DOES HAVE FREQUENT DOZING OFF DURING THE DAYTIME. Code(s): E66.01 - Morbid (severe) obesity due to excess calories Category: Medical Plan: NO NEED OF ANY FURTHER INVESTIGATIONS Medications: Changed From prednisone 5 mg PO Q OTHER DAY Asthma/COPD To prednisone 5 mg PO Q OTHER DAY 45 tabs 3RF Asthma/COPD 90 days From azithromycin 250 mg PO 3XW 13 tabs 0RF To azithromycin 250 mg PO 3XW 39 tabs 3RF copd/BRONCHITIS 90 days Coding Level of Care Code Est Pt Level 3 (65437) Diagnoses COPD (chronic obstructive pulmonary disease) J44.9 Respiratory failure with hypoxia J96.91 Morbid obesity E66.01
--- OUTSIDE RECORDS SUMMARY | 2024-08-03 19:12 | XMS_ITS | Encounter Summary ---
Author Organization [facility] Address [address] [place] [address] Phone Care Team Providers Care Motor Coach Tour Operator Name Role Phone Angel Castano MD Primary Care Provider [phone]- [phone] Encounter Details Date Type Department Care Team (Late st Contact Info) Description 05/04/2022 Telephone [facility] [address] [place] [address] Kitty Menezes MA Social History [...] on filedocumented in this encounter Care Teams Motor Coach Tour Operator Relationship Specialty Start Date End Date Angel Castano MD [facility] [place] [id number] PCP - General 02/19/20 documented as of this encounter
== END 2024-08-03 16:19 | disposition home or self-care (01) ==
LOC: HO.HPS 15:33
PROVIDERS: PCP Nurse Practitioner Family; Visit Provider Internal Medicine
DX: J44.9 Chronic obstructive pulmonary disease, unspecified (principal); J96.91 Respiratory failure, unspecified with hypoxia; E66.01 Morbid (severe) obesity due to excess calories
CPT/HCPCS: 99213

== ENCOUNTER → 2024-08-03 15:32 | Outpatient (BNVA) | payer MEDICARE, MEDICAID, SELFPAY | PROVIDERS: PCP Nurse Practitioner Family; Visit Provider Internal Medicine | DX: J96.91 Respiratory failure, unspecified with hypoxia (principal); J44.9 Chronic obstructive pulmonary disease, unspecified; E66.01 Morbid (severe) obesity due to excess calories; Z68.41 Body mass index [BMI] 40.0-44.9, adult | CPT/HCPCS: 99212 ==

== ENCOUNTER 2024-08-07 14:21 | Outpatient (AMB) | payer MEDICARE, SELFPAY ==
[2024-08-07 14:22] VITALS: BP 132/82; PULSE 93; O2SAT 96; BMI 39.1
--- NOTE | 2024-08-07 14:22 | HO.NEPHOV_ITS ---
Vital Signs 08/07/24 14:22 Height 5 ft 1 in Weight 207 lb BMI 39.1 BP 132/82 Blood Pressure Location Rt brachial Position Sitting Pulse 93 Pulse Source Pulse Oximeter Pulse Oximetry (%) 96 Oxygen Delivery Method Room Air Intake Visit Reasons: 2 MO FU/ Conf Deck Scaler Required: No Accompanied by: Spouse Allergies ciprofloxacin (From Cipro) Allergy (Severe, Verified 08/03/24 16:27) HIVES/SWELLING, THROAT CLOSES shellfish derived (SHELLFISH DERIVED) Allergy (Intermediate, Verified 08/03/24 16:27) Vomiting NSAIDS (Non-Steroidal Anti-Inflamma Adverse Reaction (Severe, Verified 08/03/24 16:27) Avoid due to kidney disease Medication List - Last Reconciled 08/07/24 by Fermin Muhammad MD acetaminophen 650 mg PO Q6H PRN aspirin 81 mg PO DAILY atorvastatin 10 mg PO BEDTIME azithromycin 250 mg PO 3XW 90 days Breo Ellipta 100-25 mcg/dose (fluticasone furoate-vilanterol) 1 ea PO DAILY 90 days NS carvedilol 3.125 mg PO BID cinacalcet 30 mg PO DAILY Held on 05/30/24. Instructions: Doctor's Order fluticasone propionate 50 mcg/actuation 1 spray intranasal DAILY gabapentin 100 mg PO DAILY PRN guaifenesin ER (Mucinex) 600 mg PO BID PRN hydroxyzine pamoate 100 mg PO BEDTIME PRN ipratropium-albuterol 0.5 mg-3 mg(2.5 mg base)/3 mL 3 mL inhalation Q4-6H PRN lorazepam 1 mg PO BID PRN methadone 70 mg PO DAILY prednisone 5 mg PO Q OTHER DAY 90 days sodium zirconium cyclosilicate (Lokelma) 10 grams PO DAILY torsemide 20 mg PO BID HPI Comments Details: 64 years old female with advanced chronic obstructive pulmonary disease and chronic respiratory failure, on oxygen, and treated for acute exacerbation of COPD/respiratory failure, was able to normalize blood gases with aggressive treatment. She has advanced CKD approaching end stage renal disease. She has significant fluid overload requiring high-dose of diuretics. She is here for further follow-up. Recently admitted for respiratory illness and was treated with a course of prednisone. During hospitalization diltiazem has been discontinued but she is still taking it. 02/22/23: Doing better;No new issues 05/25/2023. Overall doing well. Recently missed Neurology appointment due to logistical issues. Respiratory status remains unchanged. Leg edema remains stable 12/02/23; Still with dyspnea;Weight is better ;Was on prednisone with some improvement in breathing 02/10/2024. Complains of cough with clear sputum. Weight is relatively stable. Appetite is fair. After increasing calcitriol to 1 mcg a day PTH has decreased from 1300 down to 364 04/18/24 ;Lot of family issues. Son on life support. No nausea/vomiting ;No dyspnea at rest ; Televisit 05/30/24 ;Here for follow up; No change in respiration 08/07/24 The patient is a 64-year-old female with CKD 5 The patient reports experiencing fatigue and frequent episodes of falling asleep, which may be attributed to her anemia. Her hemoglobin level is 8.3 g/dL, The anemia is likely contributing to her persistent tiredness. The patient has chronic kidney disease with a kidney function of 11%, which is closely monitored due to the risk of progression to dialysis. She is aware that if her kidney function decreases to 10% or less, or if she develops additional symptoms, dialysis may be necessary. Discussed the young for AV fistula ; The patient is considering vascular access preparation for potential future dialysis. The patient also reports urinary retention, experiencing difficulty initiating urination at times, which she manages by lying down with her legs elevated. [facility] Medical History Respiratory failure with hypoxia Dyslipidemia History of lung cancer Hx of bronchitis CKD (chronic kidney disease) stage 4, GFR 15-29 ml/min Morbid obesity COPD (chronic obstructive pulmonary disease) Polysubstance abuse Respiratory failure with hypoxia and hypercapnia Ambulates with cane Seasonal allergies Herpes zoster Osteopenia (~2017) Respiratory failure COVID-19 (~03/2021) Osteoarthritis of ankles, bilateral Olecranon bursitis of left elbow Tubulovillous adenoma of large intestine (~2020) Hx of cardiac arrest (~2015) O2 dependent Methadone maintenance therapy patient History of claustrophobia History of seizure Anxiety and depression HTN (hypertension) Multiple fractures of ribs Anemia in chronic kidney disease Vitamin D deficiency Family history of colon cancer Restrictive lung disease LEO (obstructive sleep apnea) Surgical History Hx of tracheostomy History of esophagogastroduodenoscopy (EGD) (~2021) History of removal of ureteral stent (~2013) History of lung biopsy (~2019) History of colonoscopy (~2020) Umbilical hernia History of laparoscopy (~2012) History of hand surgery History of tubal ligation Family History Father Diabetes mellitus Mother Depression Mental health disorder Maternal Grandfather Colon cancer Sister No problems noted. Son No problems noted. Daughter No problems noted. Daughter No problems noted. Social History Household Members: Unknown / Unable to assess Housing: House Housing Other:: mobile home Are you a primary critical care clinical nurse specialist to a significant other at home: No Do you presently have visiting nurse or other home services: No Unable to assess alcohol history related to: Unable to respond Alcohol intake: never Comment: restraints Patient Tobacco Use Status: Former Tobacco user Tobacco use type: Cigarette Years Smoked: 25 yrs e-Cigarette/Vaping Use: Never Used Substance Use Type: Heroin Advance Directives Date on File: 03/21/21 service: No Current occupational status: unemployed and disabled Cognitive needs: No Hearing needs: No Vision needs: No Physical Exam Vital Signs: Last Vital Signs Pulse 93 08/07/24 14:22 BP 132/82 08/07/24 14:22 Pulse Ox 96 08/07/24 14:22 Oxygen Delivery Method Room Air 08/07/24 14:22 BMI result Body Mass Index 39.1 Const General: comfortable Nutritional Appearance: well nourished Orientation/consciousness: patient oriented x3 HEENT Head: No normal to inspection Mouth: moist mucous membranes Neck Neck: Yes supple and Yes no JVD Resp Auscultation: clear to auscultation bilaterally and no rales Cardio Jugular venous distension: no JVD Palpation: no palpable S3 and no palpable S4 Heart sounds: no rubs GI Palpation (GI): Soft to palpation and nontender Percussion: No Fluid wave present General: Yes no CVA tenderness Back/Spine/Pelvis Back: no CVA tenderness Skin General skin exam: no rashes or lesions noted Neuro General: patient oriented x3 Extrem General: No clubbing Results Reviewed Nephrology Results: Hgb, (12.0-16.0) 8.3 g/dl L 07/27/24 WBC, (4.8-10.8) 9.8 X10*3/uL 07/27/24 Plt Count, (160-400) 257 X10*3/uL 07/27/24 Sodium, (135-145) 145 mmol/L 07/27/24 Potassium, (3.3-5.1) 4.8 mmol/L 07/27/24 Chloride, (96-108) 112 mmol/L H 07/27/24 Carbon Dioxide, (22-29) 22 mmol/L 07/27/24 BUN, (9-16) 38 mg/dL H 07/27/24 Creatinine, (0.5-1.4) 4.18 mg/dL H* 07/27/24 Calcium, (8.4-10.2) 9.2 mg/dL Δ 07/27/24 Phosphorus, (2.7-4.5) 5.2 mg/dL H 07/27/24 PTH Intact, (8.7-77.1) 1345.1 pg/mL H 07/27/24 Renal US 03/25/21 Assessment & Plan Assessment & Plan (1) CKD (chronic kidney disease) stage 5, GFR less than 15 ml/min: Code(s): N18.5 - Chronic kidney disease, stage 5 Category: Medical Plan: Advanced CKD approaching end stage renal disease. No overt signs or symptoms of uremia. Goal is to slow the progression of the renal disease. We will continue to watch renal function closely and initiate dialysis when appropriate. Discussed the need for AVF she wants it think it over (2) Anemia in chronic kidney disease: Code(s): N18.9 - Chronic kidney disease, unspecified; D63.1 - Anemia in chronic kidney disease Category: Medical Qualifiers: Chronic kidney disease stage: stage 5, not on chronic dialysis Qualified Code(s): N18.5 - Chronic kidney disease, stage 5; D63.1 - Anemia in chronic kidney disease Plan: [place] [address] [place] q weekly Goal HCT 30-36% (3) Acute exacerbation of chronic obstructive pulmonary disease: Code(s): J44.1 - Chronic obstructive pulmonary disease with (acute) exacerbation Category: Medical Plan: Management per PCP Continue DuoNeb updrafts q.i.d. and Breo-100 1 inhalation daily. Mucinex 600 mg b.i.d. also prescribed. (4) HTN (hypertension): Code(s): I10 - Essential (primary) hypertension Category: Medical Plan: Blood pressure is better controlled No need for Cardizem ( was stopped in Jan 2023) Continue with Coreg 3.125 b.i.d.. No changes were made to her diabetic regimen. (5) Secondary hyperparathyroidism: Code(s): N25.81 - Secondary hyperparathyroidism of renal origin Category: Medical Plan: PTH is more than 1600. PTH is down to 148 after adding calcitriol Ca increased and we stopped Calcitriol Cinacalcet was added Cinacalcet 30 onhold due to hypocalcemia; Calcium has normalized Plan as above Coding Level of Care Code Est Pt Level 4 (11154) Diagnoses CKD (chronic kidney disease) stage 5, GFR less than 15 ml/min N18.5 Anemia in stage 5 chronic kidney disease, not on chronic dialysis N18.5; D63.1 Chronic kidney disease stage: stage 5, not on chronic dialysis Acute exacerbation of chronic obstructive pulmonary disease J44.1 HTN (hypertension) I10 Secondary hyperparathyroidism N25.81
--- OUTSIDE RECORDS SUMMARY | 2024-08-07 14:51 | XMS_ITS | Clinical Summary ---
Author Organization [facility] Address [address] [place] [address] Phone Care Team Providers Care Cnc Laser Operator Name Role Phone Valerie Castano MD Primary [...] 01/31/2024 Chronic obstructive pulmonar y disease (COPD) ([facility] V24, CMS/[facility] V28) 01/31/2024 Congenital anomaly of diaphragm 01/31/2024 HTN (hypertension) 01/31/2024 Chronic back pain 01/31/2024 Lung cancer, middle lobe (CMS/[facility] V24, [facility] V 28) 12/29/2023 Cancer Staging:Clinical:Stage IB(cT2a, cN0, cM0) - Signed by Lonnie Mercer MD on 12/29/2023 Anemia in chronic kidney disease 08/10/2022 Chronic kidney disease, stag e 4 (severe) (CMS/[facility] V24, CMS/[facility] V28) 08/10/2022 Hypertensive renal disease 06/20/2020 [...] Comments OTHER SURGICAL HISTORY - 1989 PROCEDURE: [place] CAUTERY CERVIX CRYOCAUTERY INITIAL/REPEAT; COMMENT: for abnormal pap OTHER SURGICAL HISTORY PROCEDURE: [place] LIG/TRNSXJ FLP TUBE ABDL/VAG APPR UNI/BI OTHER SURGICAL HISTORY 2012 PROCEDURE: DC EXPLORATORY LAPAROTOMY CELIOTOMY W/WO BIOPSY SPX; COMMENT: [...] reviewed with CAD and compared to previous. The breasts are composed of fatty and fibroglandular tissue. No suspicious mass, architectural distortion or suspicious calcifications [...] Insurance MED[place] - [place] MEDICARE Care Teams Cnc Laser Operator Relationship Specialty Start Date End Date Valerie Castano MD [address] [place] [address] PCP - General 05/21/10
--- OUTSIDE RECORDS SUMMARY | 2024-08-07 14:51 | XMS_ITS | Data Portability ---
Author Organization [place] - [facility] Address [address] [place] [id number] Care Team Providers Care Sampler Ovens Name Role Phone [facility] Primary Care Provider Assessment Encounter Date Assessment Date Assessment LastModified by Organization Details LastModified Time 08/19/2022 08/19/2022 Brief Overview: Pt is 62 year old F with previous medical history of CHF, COPD, lung cancer, htn, stage 4 kidney disease, AR, chronic lower extremity edema, with cc today of bilateral lower extremity redness. Pt has been on multiple abx recently for possible cellulitis with short term improvement but redness remained. Has been elevating legs and taking lasix/ metalozone with some improvement in swelling. Thinks that heat has been making swelling worse. Pt is worried needs more abx. Denies chest pain, sob, fevers, numbness/ tingling to feet. New to provider and to . Vital Signs: 98.8 F ear (37.11 C) 89 116 / 70 18 94 % Room Air at Rest (baseline for patient due to COPD) Exam: Chronically ill F, non toxic. Skin: +2 pitting edema to BLE with erythema bilaterally. Skin is not hot to touch, slightly warm. No drainage, blisters, cuts, abrasions. Skin is slightly dry with scaling. Erythema extends to mid lower leg. DP/PT pulses 2+. Ambulatory with steady gait. Feet both with normal skin color, warm to touch. DDx considered, with rationale: Stasis dermatitis- very likely as skin is not hot to touch or erythema unilateral suggesting DVT, cellulitis. Pt also has had 3 broad spectrum abx that would treat most common staph/ strep without significant improvement but sx are also not worse. Lyphaedema- present in BLE and right mid thigh Cellulitis- unlikely in patient presenting with chronic bilateral erythema CHF exacerbation- not likely as patient does not have increased weight gain. Leg edema has been chronic for several years, swelling is not worse than her usual. No chest pain, SOB. lipodermatoscler osis- possible with appearance Venous insufficiency- evident on exam Arterial occlusion- not likely in patient with good sensation, pulses and mobility Proper Personal Protective Equipment (PPE), including gloves, eye protection and masks were donned and doffed appropriately and all equipment cleaned using approved technique with germicidal disposable wipes prior to and after care of this patient according to [facility] infection prevention protocols. Time On Scene with Patient: 00:33:49 [email or web address] Not available 08/19/2022 20:13:05 Plan of Treatment Reminders Order Date Submit Date Provider Last Modified By Organization Details Last Modified Time Details Appointments None record ed. Lab None record ed. Referral None record ed. Procedures None record ed. Surgeries None record ed. Imaging None record ed. Medication Orders None record ed. Patient TargetsNo targets recorded. Patient Instructions Encounter Date Encounter Id Patient Instructions Last Modified By Organization Details Last Modified Time 08/19/2022 [id number] [facility] you [facility] yo [facility]. You were seen today for treatment of a wound. Please seek immediate medical attention if you develop increased pain, redness, or swelling of your wound. Also, you should be evaluated if the wound becomes warm to the touch, or if there is a cloudy, yellow-brown discharge from the wound. There is always the possibility of a hidden tendon injury or foreign object in the wound. If you have problems moving your arm or leg, or if you see red streaks up the arm or leg, seek immediate medical attention. If you develop any new or worsening symptoms and need after hours care, please go to nearest ER and/or call 911. If you have additional concerns or develop a change in your condition between 8am-10pm, please call [facility] at [phone] to help navigate your care. [email or web address] Not available 08/19/2022 13:24:42 Reason for Referral None Reported. Procedures Surgical History Date Name Laterality Status Provider Name and Address Organization Details Recorded Time ligation of fallopian tube completed Bianca Pascal NP [facility] [address], [place], [address], [place] [facility] 08/19/2022 13:21:29 tracheostomy, emergency procedure by transtracheal approach completed Bianca Pascal NP [address], [place], [address], [place] [facility] 08/19/2022 13:21:53 Imaging Results None recorded. Procedure Notes None recorded. Medical Equipment None Reported. Allergies Allergen ID Allergen Name Allergen Category Reaction Reaction Severity Criticality Documentation Date Start Date Code Code System Note Provider Name and Address Organization Details Recorded Time 698535 Cipro medicatio n Not available Not available Not available 08/19/202295600 3 RxNorm Bianca Pascal NP [address], [place], [address], [place] [facility] 13:18:54 Medications Name Sig Start Date Stop Date Status Note LastModified by Organization Details LastModified Time cyclobenzap rine 10 mg tablet TAKE 1 TABLET BY MOUTH THREE TIMES DAILY active Not Available Not Available No t Available furosemide 40 mg tablet TAKE 1 TABLET BY MOUTH EVERY DAY active Not Available Not Available No t Available metolazone 2.5 mg tablet active Not Available Not Available Not Available buspirone 5 mg tablet TAKE 1 TABLET BY MOUTH DAILY FOR 7 DAYS. INCREASE TO 1 TABLET 2 TIMES DAILY IF TOLERATED FOR ANXIETY active Not Available Not Available No t Available doxycycline hyclate 100 mg capsule TAKE 1 CAPSULE BY MOUTH TWICE DAILY 08/19 completed Not Available Not Available Not Available torsemide 20 mg tablet TAKE 2 TABLET BY MOUTH TWICE DAILY active Not Available Not Available No t Available cefpodoxime 200 mg tablet TAKE 1 TABLET BY MOUTH TWICE DAILY FOR 7 DAYS 08/19 completed Not Available Not Available Not Available doxepin 25 mg capsule active Not Available Not Available N ot Available clonazepam 1 mg tablet TAKE 1/2 TABLET BY MOUTH EVERY AM AND EVERY AFTERNOON NEEDED FOR ANXIETY AND 1 TABLET BY MOUTH EVERY NIGHT AT BEDTIME NEEDED FOR INSOMNIA active Not Available Not Available No t Available hydroxyzine HCl 50 mg tablet TAKE 1/2 TO 1 TABLET BY MOUTH THREE TIMES DAILY NEEDED FOR ANXIETY OR PANIC ATTACKS active Not Available Not Available No t Available acyclovir 800 mg tablet TAKE 1 TABLET BY MOUTH FOUR TIMES DAILY FOR 1 WEEK FOR HERPES ZOSTER 08/19 completed Not Available Not Available Not Available carvedilol 3.125 mg tablet TAKE 1 TABLET BY MOUTH TWICE DAILY active Not Available Not Available No t Available diltiazem 120 mg tablet active Not Available Not Available Not Available fluvoxamine 25 mg tablet TAKE 1 TABLET BY MOUTH EVERY DAY active Not Available Not Available No t Available fluvoxamine 100 mg tablet TAKE 1 TABLET BY MOUTH EVERY MORNING active Not Available Not Available No t Available erythromyci n 5 mg/gram (0.5 %) eye ointment APPLY A SMALL RIBBON TO LEFT EYELID TWICE DAILY 08/19 completed Not Available Not Available Not Available prednisone 50 mg tablet TAKE 1 TABLET BY MOUTH DAILY FOR 4 DAYS 08/19 completed Not Available Not Available Not Available diltiazem CD 120 mg capsule,ext ended release 24 hr TAKE 1 CAPSULE BY MOUTH EVERY DAY active Not Available Not Available No t Available fluvoxamine 50 mg tablet TAKE 1 TABLET BY MOUTH EVERY MORNING active Not Available Not Available No t Available gabapentin 100 mg capsule TAKE 1 CAPSULE BY MOUTH TWICE DAILY active Not Available Not Available No t Available lorazepam 1 mg tablet active Not Available Not Available No t Available fluticasone propionate 50 mcg/actuati on nasal spray,suspe nsion SHAKE LIQUID AND USE 1 SPRAY IN EACH NOSTRIL 1 TIME EACH DAY active Not Available Not Available No t Available fludrocorti sone 0.1 mg tablet TAKE 1 TABLET BY MOUTH TWICE DAILY active Not Available Not Available No t Available doxycycline hyclate 100 mg tablet TAKE 1 TABLET BY MOUTH EVERY 12 HOURS FOR 10 DAYS 08/19 completed Not Available Not Available Not Available calcitriol 0.25 mcg capsule active Not Available Not Available Not Available amoxicillin 875 mg-potassiu m clavulanate 125 mg tablet TAKE 1 TABLET BY MOUTH EVERY 12 HOURS FOR 10 DAYS 08/19 completed Not Available Not Available Not Available nitrofurant oin monohydrate /macrocryst als 100 mg capsule TAKE 1 CAPSULE BY MOUTH EVERY 12 HOURS FOR 5 DAYS 08/19 completed Not Available Not Available Not Available sodium,pota ssium,mag sulfates 17.5 gram-3.13 gram-1.6 gram oral soln active Not Available Not Available Not Available Breo Ellipta 100 mcg-25 mcg/dose powder for inhalation INHALE 1 PUFF BY MOUTH DAILY FOR COPD active Not Available Not Available No t Available Vitals Date Recorded Respiratory rate Body temperature Heart rate Oxygen saturation Oxygen saturation in Arterial blood by Pulse oximetry Systolic blood pressure Diastolic blood pressure Provider Name and Address Organization Details Last Updated DateTime 18 /min 98.8 [degF] 89 /min 94 % 94 % 116 mm[Hg] 70 mm[Hg] Not Available [facility] 13:21:58 Social History Question Answer Notes LastModified by [employer] Details LastModified Time Tobacco Smoking Status Former Smoker Bianca Pascal, [facility] [address] [place], [address], [place] [facility] 08/19/2022 13:22:36 Do You Have An Advance Directive? Yes [email or web address] Information not available 08/19/2022 What Is Your Code Status? Full Code Information not available 08/19/2022 Within The Past 12 Months, Has It Happened That The Food You Bought Just Didn't Last And You Didn't Have Money To Get More. Sometimes True [email or web address] Information not available 08/19/2022 Within The Past 12 Months, Have You Worried That Your Food Would Run Out Before You Got Money To Buy More. Sometimes True [email or web address] Information not available 08/19/2022 Fall Risk: Do You Feel Unsteady When Standing Or Walking? Yes [email or web address] Information not available 08/19/2022 Does This Patient Have A PCP? Yes [email or web address] Information not available 08/17/2022 Has The Patient Seen Their PCP In The Past 6 Months? Yes [email or web address] Information not available 08/17/2022 Social Support: Do You Feel Safe? Yes [email or web address] Information not available 08/19/2022 Has Tobacco Cessation Counseling Been Provided? No Information not available 08/19/2022 Sex: Unknown Functional Status Question Answer Note LastModified by [employer] Details LastModified Time Do you use any illicit or recreational drugs? Yes heroin use 2022 [email or web address] Information not available 08/19/2022 What is your level of alcohol consumption? None [email or web address] Information not available 08/19/2022 Mental Status None recorded. Family History Relationship Description Onset Age of this Age Resolved Age Notes LastModified by Organization Details LastModified Time Mother Malignant neoplastic disease [email or web address] Not available 2022 13:22:14 Maternal Grandfather Malignant neoplastic disease Not available 2022 13:22:24 Medical History Condition Response CHF Y Cancer Y Hypertension Y COPD Y Kidney Disease Gynecological HistoryNo gynecological history recorded. Obstetrics History GPAL:G 0 P 0 0 0 0 Past Encounters Encounter ID Performer Location Encounter Start Date Encounter Closed Date Diagnosis/Indication Diagnosis SNOMED-CT Code Diagnosis ICD10 Code Diagnosis Note [id number] Bianca Pascal NP [facility] [address] [facility], [place] [address] 08/19/2022 12:35:34 08/20/2022 15:06:31 Stasis dermatitis 61070310 I87.2 Status of condition: Exacerbati on/Acute on chronic. Testing/Re sults: Discussion :Discussed with patient that previous abx have been ineffectiv e and she is not presenting as typical case of cellulitis . Redness is not unilateral and skin is not painful or hot to touch. Attempted photo, poor Internet connection . Likely has underlying venous insufficie ncy as well. Discussed goal is to treat underlying lymphedema , obesity and to continue to take her medication s. Not able to use stockings as she feels they are claustroph obic. Pt does report she is open to being properly fitted for stockings and instructed how to use them. Also open to talking with PCP about lymphedema clinic referral. Continue with daily weighs, monitoring respirator y status and weight. If area/ s become hot to touch, painful or develops worsening swelling advised to follow up. Not able to appreciate breaks in skin or abscess that would be appropriat e for wound culture. Pt to follow up with nephrologi st/ PCP for continued care. Advised on drug abuse as heroin use will further impair her healing. Lymphedema of bilateral lower limbs [id number] I89.0 Status of condition: Chronic. Testing/Re sults: Discussion :Discussed with patient that previous abx have been ineffectiv e and she is not presenting as typical case of cellulitis . Redness is not unilateral and skin is not painful or hot to touch. Attempted photo, poor Internet connection . Likely has underlying venous insufficie ncy as well. Discussed goal is to treat underlying lymphedema , obesity and to continue to take her medication s. Not able to use stockings as she feels they are claustroph obic. Pt does report she is open to being properly fitted for stockings and instructed how to use them. Also open to talking with PCP about lymphedema clinic referral. Continue with daily weighs, monitoring respirator y status and weight. If area/ s become hot to touch, painful or develops worsening swelling advised to follow up. Not able to appreciate breaks in skin or abscess that would be appropriat e for wound culture. Pt to follow up with nephrologi st/ PCP for continued care. Advised on drug abuse as heroin use will further impair her healing. Plan, Medication Management & Follow-up recommenda tions: Health Concerns Section Related Observation LastModified by Organization Detai ls LastModified Time None Recorded Concern Status LastModified by Organization Details LastModified Time None Recorded Advance Directives Directive Y: Payers Insurance Date Sequence Insurance Name Policy Number Policy Diaz Covered Member ID Diaz Member ID Guarantor Name 08/21/2022 1 [place]ICARE [place]: [employer] Deirdre Mcdaniel Gudelia [id number] Deirdre Galeas 08/17/2022 1 *SELF PAY* Deirdre Gudelia [id number] Deirdre Gudelia 08/20/2022 2 [place] [facility] Deirdrekarina YipGudelia [id number] Deirdre Yipsette Notes Date Note Type Note Provider Name and Address Organization Details Recorded Time 08/19/2022 text/html Pt states has bilateral lower extremity lymphedema and has been diagnosed with intermittent cellulitis over the past several weeks. Pt states that she has been on cefpodoxime, augmentin and doxycyline with short term improvement and then quick return of sx. Pt states that the erythema is bilateral but occasionally one leg will be more red than the other. Has stage 4 kidney disease, takes daily lasix and now on twice weekly metalozone for swelling. Has been trying to elevate legs but is mostly immobile in her trailer, heat has been making sx worse. Denies fevers, weeping of legs, numbness/ tingling, injury to the legs. Pt also with history of drug abuse, last use of heroin 6 months ago. Bianca Pascal, [employer] [address], [place], [address], [place] - [facility] 08/19/2022 20:14:10 OBGyn Episode No OBEpisode recorded.
--- OUTSIDE RECORDS SUMMARY | 2024-08-07 14:51 | XMS_ITS | Encounter Summary ---
Author Organization [facility] Address [address] [place] [address] Phone Care Team Providers Care Content Strategist Name Role Phone Angel Castano MD Primary Care Provider [phone] Encounter Details Date Type Department Care Team (Late st Contact Info) Description 05/04/2022 Telephone [facility] [address] [place] [address] Kitty Menezes MA Social History [...] on filedocumented in this encounter Care Teams Content Strategist Relationship Specialty Start Date End Date Angel Castano [facility] [place] [id number] PCP - General 02/19/20 documented as of this encounter
--- OUTSIDE RECORDS SUMMARY | 2024-08-07 14:51 | XMS_ITS | Clinical Summary ---
Author Organization [facility] Address [address] [place] [address] Care Team Providers Care Nurse Aide Evaluator Name Role Phone Patient, Has No Pcp [...] 100 06/10/2021 6:30 AM EDT Temperature 36.8 C (98.2 F) 06/10/2021 3:28 AM EDT Respiratory Rate 20 06/10/2021 6:30 AM EDT Oxygen Saturation 96% 06/10/2021 6:30 AM EDT Inhaled Oxygen Concentration - - Weight 87.7 kg (193 lb 5.5 oz) 06/10/2021 5:22 A M EDT Height 154.9 cm (5' 1 ) 06/10/2021 3:28 AM EDT Body Mass Index 36.53 06/10/2021 3:28 AM EDT Plan of Treatment Health Maintenance Due Date Last Done Comments Cervical Cancer Screening 1962 Cologuard 1962 Colon Cancer Screening 1962 Colonoscopy 1962 FOBT / Fit Test 1962 HIV Screening 1962 HPV and Pap Smear 1962 Hepatitis C Screening 1962 Pap Smear 1962 Sigmoidoscopy 1962 Statin Therapy 1962 Medicare AWV 05/30/1963 Mammogram 2002 Pneumococcal Vaccine: 50+ Years (3 of 3 - PCV20 or PCV21) 02/19/2020 02/18/2015, 03/22/2012, 05/18/2011 COVID-19 Vaccine (4 - season) 2023 09/23/2020, 05/22/2020, 05/01/2020 Alcohol/Substance Use [...] age to complete this topic Insurance MEDICARE [facility] Care Teams Nurse Aide Evaluator Relationship Specialty Start Date End Date Patient, Has No Pcp Or Ref DO NOT EDIT THIS RECORD VIA PROVIDER ON THE FLY PCP - General Engine Buildup Mechanic 06/10/21
== END 2024-08-07 14:36 | disposition home or self-care (01) ==
LOC: HO.HKA 14:22
PROVIDERS: PCP Internal Medicine; Visit Provider Internal Medicine Hypertension Specialist
DX: N18.5 Chronic kidney disease, stage 5 (principal); D63.1 Anemia in chronic kidney disease; J44.1 Chronic obstructive pulmonary disease with (acute) exacerbation; I12.0 Hypertensive chronic kidney disease with stage 5 chronic kidney disease or end stage renal disease; N25.81 Secondary hyperparathyroidism of renal origin
CPT/HCPCS: 99214

== ENCOUNTER → 2024-08-07 14:21 | Outpatient (BNVA) | payer MEDICARE, SELFPAY | PROVIDERS: PCP Internal Medicine; Visit Provider Internal Medicine Hypertension Specialist | DX: I12.9 Hypertensive chronic kidney disease with stage 1 through stage 4 chronic kidney disease, or unspecified chronic kidney disease (principal); N18.5 Chronic kidney disease, stage 5; D63.1 Anemia in chronic kidney disease; J44.1 Chronic obstructive pulmonary disease with (acute) exacerbation; N25.81 Secondary hyperparathyroidism of renal origin; Z99.81 Dependence on supplemental oxygen | CPT/HCPCS: 99212 ==

== ENCOUNTER 2024-09-04 14:16 | Outpatient (AMB) | payer MEDICARE, SELFPAY ==
--- NOTE | 2024-09-04 14:17 | HO.NEPHOV_ITS ---
Vital Signs 09/04/24 14:18 Height 5 ft 1 in Weight 206 lb BMI 38.9 BP 150/92 H Blood Pressure Location Rt brachial Position Sitting Pulse 108 H Pulse Source Pulse Oximeter Pulse Oximetry (%) 88 L Oxygen Delivery Method Nasal Cannula Intake Visit Reasons: 2-3wk Retacrit-Conf Assistant Distribution Manager Required: No Accompanied by: Spouse Allergies ciprofloxacin (From Cipro) Allergy (Severe, Verified 09/04/24 14:20) HIVES/SWELLING, THROAT CLOSES shellfish derived (SHELLFISH DERIVED) Allergy (Intermediate, Verified 09/04/24 14:20) Vomiting NSAIDS (Non-Steroidal Anti-Inflamma Adverse Reaction (Severe, Verified 09/04/24 14:20) Avoid due to kidney disease Medication List - Last Reconciled 09/04/24 by Fermin Muhammad MD acetaminophen 650 mg PO Q6H PRN aspirin 81 mg PO DAILY atorvastatin 10 mg PO BEDTIME azithromycin 250 mg PO 3XW 90 days Breo Ellipta 100-25 mcg/dose (fluticasone furoate-vilanterol) 1 ea PO DAILY 90 days NS carvedilol 3.125 mg PO BID cinacalcet 30 mg PO DAILY Held on 05/30/24. Instructions: Doctor's Order fluticasone propionate 50 mcg/actuation 1 spray intranasal DAILY gabapentin 100 mg PO DAILY PRN guaifenesin ER (Mucinex) 600 mg PO BID PRN hydroxyzine pamoate 100 mg PO BEDTIME PRN ipratropium-albuterol 0.5 mg-3 mg(2.5 mg base)/3 mL 3 mL inhalation Q4-6H PRN lorazepam 1 mg PO BID PRN methadone 70 mg PO DAILY prednisone 5 mg PO Q OTHER DAY 90 days sodium zirconium cyclosilicate (Lokelma) 10 grams PO DAILY torsemide 20 mg PO BID HPI Comments Details: 64 years old female with advanced chronic obstructive pulmonary disease and chronic respiratory failure, on oxygen, and treated for acute exacerbation of COPD/respiratory failure, was able to normalize blood gases with aggressive treatment. She has advanced CKD approaching end stage renal disease. She has significant fluid overload requiring high-dose of diuretics. She is here for further follow-up. Recently admitted for respiratory illness and was treated with a course of prednisone. During hospitalization diltiazem has been discontinued but she is still taking it. 02/22/23: Doing better;No new issues 05/25/2023. Overall doing well. Recently missed Neurology appointment due to logistical issues. Respiratory status remains unchanged. Leg edema remains stable 12/02/23; Still with dyspnea;Weight is better ;Was on prednisone with some improvement in breathing 02/10/2024. Complains of cough with clear sputum. Weight is relatively stable. Appetite is fair. After increasing calcitriol to 1 mcg a day PTH has decreased from 1300 down to 364 04/18/24 ;Lot of family issues. Son on life support. No nausea/vomiting ;No dyspnea at rest ; Televisit 05/30/24 ;Here for follow up; No change in respiration 08/07/24 The patient is a 64-year-old female with CKD 5 The patient reports experiencing fatigue and frequent episodes of falling asleep, which may be attributed to her anemia. Her hemoglobin level is 8.3 g/dL, The anemia is likely contributing to her persistent tiredness. The patient has chronic kidney disease with a kidney function of 11%, which is closely monitored due to the risk of progression to dialysis. She is aware that if her kidney function decreases to 10% or less, or if she develops additional symptoms, dialysis may be necessary. Discussed the young for AV fistula ; The patient is considering vascular access preparation for potential future dialysis. The patient also reports urinary retention, experiencing difficulty initiating urination at times, which she manages by lying down with her legs elevated. [facility] Medical History Respiratory failure with hypoxia Dyslipidemia History of lung cancer Hx of bronchitis CKD (chronic kidney disease) stage 4, GFR 15-29 ml/min Morbid obesity COPD (chronic obstructive pulmonary disease) Polysubstance abuse Respiratory failure with hypoxia and hypercapnia Ambulates with cane Seasonal allergies Herpes zoster Osteopenia (~2017) Respiratory failure COVID-19 (~03/2021) Osteoarthritis of ankles, bilateral Olecranon bursitis of left elbow Tubulovillous adenoma of large intestine (~2020) Hx of cardiac arrest (~2015) O2 dependent Methadone maintenance therapy patient History of claustrophobia History of seizure Anxiety and depression HTN (hypertension) Multiple fractures of ribs Anemia in chronic kidney disease Vitamin D deficiency Family history of colon cancer Restrictive lung disease LEO (obstructive sleep apnea) Surgical History Hx of tracheostomy History of esophagogastroduodenoscopy (EGD) (~2021) History of removal of ureteral stent (~2013) History of lung biopsy (~2019) History of colonoscopy (~2020) Umbilical hernia History of laparoscopy (~2012) History of hand surgery History of tubal ligation Family History Father Diabetes mellitus Mother Depression Mental health disorder Maternal Grandfather Colon cancer Sister No problems noted. Son No problems noted. Daughter No problems noted. Daughter No problems noted. Social History Household Members: Unknown / Unable to assess Housing: House Housing Other:: mobile home Are you a primary dog day care attendant to a significant other at home: No Do you presently have visiting nurse or other home services: No Unable to assess alcohol history related to: Unable to respond Alcohol intake: never Comment: restraints Patient Tobacco Use Status: Former Tobacco user Tobacco use type: Cigarette Years Smoked: 25 yrs e-Cigarette/Vaping Use: Never Used Substance Use Type: Heroin Advance Directives Date on File: 03/21/21 service: No Current occupational status: unemployed and disabled Cognitive needs: No Hearing needs: No Vision needs: No Physical Exam Vital Signs: Last Vital Signs Pulse 108 H 09/04/24 14:18 BP 150/92 H 09/04/24 14:18 Pulse Ox 88 L 09/04/24 14:18 Oxygen Delivery Method Nasal Cannula 09/04/24 14:18 BMI result Body Mass Index 38.9 Const General: comfortable Nutritional Appearance: well nourished Orientation/consciousness: patient oriented x3 HEENT Head: No normal to inspection Mouth: moist mucous membranes Neck Neck: Yes supple and Yes no JVD Resp Auscultation: clear to auscultation bilaterally and no rales Cardio Jugular venous distension: no JVD Palpation: no palpable S3 and no palpable S4 Heart sounds: no rubs GI Palpation (GI): Soft to palpation and nontender Percussion: No Fluid wave present General: Yes no CVA tenderness Back/Spine/Pelvis Back: no CVA tenderness Skin General skin exam: no rashes or lesions noted Neuro General: patient oriented x3 Extrem General: No clubbing Office Meds epoetin [id number] 20,000 unit/mL injection solution Performing Provider: Fermin Muhammad MD [place] [facility] [place] [facility] Administered by: Fermin Muhammad MD on 09/04/24 14:30 Dose Route Admin Location Dispensed Lot Number Expiration Date ND Cigar Packer 20,000 unit subcut right arm 1 mL [id number] 04/07/26 2184-2502-96 PFIZ ER US PHARM Total Dispensed Waste 1 mL 0 % Results Reviewed Nephrology Results: Hgb, (12.0-16.0) 8.3 g/dl L 07/27/24 WBC, (4.8-10.8) 9.8 X10*3/uL 07/27/24 Plt Count, (160-400) 257 X10*3/uL 07/27/24 Sodium, (135-145) 145 mmol/L 07/27/24 Potassium, (3.3-5.1) 4.8 mmol/L 07/27/24 Chloride, (96-108) 112 mmol/L H 07/27/24 Carbon Dioxide, (22-29) 22 mmol/L 07/27/24 BUN, (9-16) 38 mg/dL H 07/27/24 Creatinine, (0.5-1.4) 4.18 mg/dL H* 07/27/24 Calcium, (8.4-10.2) 9.2 mg/dL Δ 07/27/24 Phosphorus, (2.7-4.5) 5.2 mg/dL H 07/27/24 PTH Intact, (8.7-77.1) 1345.1 pg/mL H 07/27/24 Renal US 03/25/21 Assessment & Plan Assessment & Plan (1) CKD (chronic kidney disease) stage 5, GFR less than 15 ml/min: Code(s): N18.5 - Chronic kidney disease, stage 5 Category: Medical Plan: Advanced CKD approaching end stage renal disease. No overt signs or symptoms of uremia. Goal is to slow the progression of the renal disease. We will continue to watch renal function closely and initiate dialysis when appropriate. Discussed the need for AVF Will refer to vascular surgeon (2) Anemia in chronic kidney disease: Code(s): N18.9 - Chronic kidney disease, unspecified; D63.1 - Anemia in chronic kidney disease Category: Medical Qualifiers: Chronic kidney disease stage: stage 5, not on chronic dialysis Qualified Code(s): N18.5 - Chronic kidney disease, stage 5; D63.1 - Anemia in chronic kidney disease Plan: Administered Retacrit 46887 U q weekly Goal HCT 30-36% (3) Acute exacerbation of chronic obstructive pulmonary disease: Code(s): J44.1 - Chronic obstructive pulmonary disease with (acute) exacerbation Category: Medical Plan: Management per PCP Continue DuoNeb updrafts q.i.d. and Breo-100 1 inhalation daily. Mucinex 600 mg b.i.d. also prescribed. (4) HTN (hypertension): Code(s): I10 - Essential (primary) hypertension Category: Medical Plan: Blood pressure is better controlled No need for Cardizem ( was stopped in Jan 2023) Continue with Coreg 3.125 b.i.d.. No changes were made to her diabetic regimen. (5) Secondary hyperparathyroidism: Code(s): N25.81 - Secondary hyperparathyroidism of renal origin Category: Medical Plan: PTH is more than 1600. PTH is down to 148 after adding calcitriol Ca increased and we stopped Calcitriol Cinacalcet was added Cinacalcet 30 onhold due to hypocalcemia; Calcium has normalized Orders: Orders Blood Urea Nitrogen 3 Weeks D63.1 - Anemia in chronic kidney disease, N18.4 - Chronic kidney disease, stage 4 (severe), N18.9 - Chronic kidney disease, unspecified Complete Blood Count no Diff 3 Weeks D63.1 - Anemia in chronic kidney disease, N18.4 - Chronic kidney disease, stage 4 (severe), N18.9 - Chronic kidney disease, unspecified AMB Epoetin Injection Practice Supplied Today N40.1 - Benign prostatic hyperplasia with lower urinary tract symptoms Referrals Vascular Surgery Referral N18.9 - Chronic kidney disease, unspecified Coding Level of Care Code Est Pt Level 4 (50313) Diagnoses CKD (chronic kidney disease) stage 5, GFR less than 15 ml/min N18.5 Anemia in stage 5 chronic kidney disease, not on chronic dialysis N18.5; D63.1 Chronic kidney disease stage: stage 5, not on chronic dialysis Acute exacerbation of chronic obstructive pulmonary disease J44.1 HTN (hypertension) I10 Secondary hyperparathyroidism N25.81
[2024-09-04 14:18] VITALS: BP 150/92; PULSE 108; O2SAT 88; BMI 38.9
--- OUTSIDE RECORDS SUMMARY | 2024-09-04 15:03 | XMS_ITS | Encounter Summary ---
Author Organization [facility] Address [address] [place] [address] Phone Care Team Providers Care Supervisor Steel Division Name Role Phone Angel Castano MD Primary Care Provider [phone] Encounter Details Date Type Department Care Team (Late st Contact Info) Description 05/04/2022 Telephone [facility] [address] [place] [address] Kitty Menezes MA Social History [...] on filedocumented in this encounter Care Teams Supervisor Steel Division Relationship Specialty Start Date End Date Angel Castano MD [facility] [place] [id number] PCP - General 02/19/20 documented as of this encounter
--- OUTSIDE RECORDS SUMMARY | 2024-09-04 15:03 | XMS_ITS | Clinical Summary ---
Author Organization [facility] Address [address] [place] [address] Care Team Providers Care Sales Office Coordinator Name Role Phone Patient, Has No Pcp [...] Screening 1960 Pap Smear 1960 Sigmoidoscopy 1960 Medicare AWV 05/30/1963 Mammogram 2002 Pneumococcal Vaccine: 50+ Years (3 of 3 - PCV20 or PCV21) 02/19/2020 02/18/2015, 03/22/2012, 05/18/2011 COVID-19 Vaccine (4 - season) 2023 09/23/2020, 05/22/2020, 05/01/2020 Alcohol/Substance Use Screening 02/09/2024 Depression Screening and Follow-Up 02/09/2024 Social Drivers of Health Annual Screening 02/09/2024 Influenza Vaccine (#1) 2024 , 11/02/2019, 10/22/2018, Additional history exists DTaP,Tdap,and Td Vaccines (4 - Td or Tdap) 01/13/2029 01/13/2019, 11/01/2012, 01/27/2010 RSV Vaccine (60+ years old and patients) (1 - 1-dose 75+ series) 2037 Zoster Vaccines Completed 10/22/2018, 08/16/2018 Hepatitis B Vaccines Aged Out No long er eligible based on patient's age to complete this topic Insurance MEDICARE [facility] Care Teams Sales Office Coordinator Relationship Specialty Start Date End Date Patient, Has No Pcp Or Ref DO NOT EDIT THIS RECORD VIA PROVIDER ON THE FLY PCP - General Data Management Associate 06/10/21
--- OUTSIDE RECORDS SUMMARY | 2024-09-04 15:03 | XMS_ITS | Clinical Summary ---
Author Organization [facility] Address [address] [place] [address] Phone Care Team Providers Care Nurse Assessor Name Role Phone Valerie Castano MD Primary [...] 01/31/2024 Chronic obstructive pulmonar y disease (COPD) ([facility] V24, [facility] V28) 01/31/2024 Congenital anomaly of diaphragm 01/31/2024 HTN (hypertension) 01/31/2024 Chronic back pain 01/31/2024 Lung cancer, middle lobe (CMS/[facility] V24, [facility] V 28) 12/29/2023 Cancer Staging:Clinical:Stage IB(cT2a, cN0, cM0) - Signed by Lonnie Mercer MD on 12/29/2023 Anemia in chronic kidney disease 08/10/2022 Chronic kidney disease, stag e 4 (severe) ([facility] V24, CMS/[facility] V28) 08/10/2022 Hypertensive renal disease 06/20/2020 [...] Comments OTHER SURGICAL HISTORY - 1989 PROCEDURE: [place] CAUTERY CERVIX CRYOCAUTERY INITIAL/REPEAT; COMMENT: for abnormal pap OTHER SURGICAL HISTORY PROCEDURE: [place] LIG/TRNSXJ FLP TUBE ABDL/VAG APPR UNI/BI OTHER SURGICAL HISTORY 2012 PROCEDURE: [place] EXPLORATORY LAPAROTOMY CELIOTOMY W/WO BIOPSY SPX; COMMENT: [...] 07/27/2017, 07/20/2016 Cholesterol Screening (Lipid Panel) 01/11/2022 HIV Screening 01/11/2022 Hepatitis C Screening 01/11/2022 Medicare Annual Wellness Visit 01/11/2022 Social Influencers of Health Screening 01/11/2022 RSV Immunization Adult Patients (1 - Risk 60-74 years 1-dose series) 2022 Hypertension/CHF/CAD Annual BMP Blood Test 01/28/2024 06/10/2021 Depression Screening 02/09/2024 COVID-19 Vaccine (8 - Pfizer risk 2023- season) 2024 12/05/2023, 10/31/2022, 12/26/2021, Additional history exists Influenza Vaccine (#1) 2024 , 10/31/2022, 10/03/2021, Additional history exists Colorectal Cancer Screening: FIT-DNA (Cologuard) 10/26/2025 10/26/2022, 10/26/2022 DTaP,Tdap,and Td Vaccines (4 - Td or Tdap) 01/13/2029 01/13/2019, 11/01/2012, 01/27/2010 Zoster Vaccines Completed 10/22/2018, 08/16/2018 HIB Vaccines Aged Out No longer eligi [...] Insurance MEDICAID - [place] MEDICARE Care Teams Nurse Assessor Relationship Specialty Start Date End Date Valerie Castano MD [address] [place] [address] PCP - General 05/21/10
--- OUTSIDE RECORDS SUMMARY | 2024-09-04 15:03 | XMS_ITS | Data Portability ---
Author Organization [place] - [facility] Address [address] [place] [address] Care Team Providers Care Water Control Station Engineer Name Role Phone [facility] Primary Care Provider [phone] Assessment Encounter Date Assessment Date Assessment LastModified by Organization Details LastModified Time 08/19/2022 08/19/2022 Brief Overview: Pt is 62 year old F with previous medical history of CHF, COPD, lung cancer, htn, stage 4 kidney disease, UT, chronic lower extremity edema, with cc today [...] after care of this patient [facility]. Time On Scene with Patient: 00:33:49 [email or web address] Not available 08/19/2022 20:13:05 Plan of Treatment [...] By Organization Details Last Modified Time 08/19/2022 [id number] [facility] you for yo ur [facility]. You were seen today for [...] in your condition between 8am-10pm, please call [facility] at [phone] to help navigate your care. [email or web address] Not available 08/19/2022 13:24:42 Reason for Referral None Reported. Procedures Surgical History Date Name Laterality Status Provider Name and Address Organization Details Recorded Time ligation of fallopian tube completed Bianca Pascal NP [facility] [address], [place], [address], [place] [facility] 08/19/2022 13:21:29 tracheostomy, emergency procedure by transtracheal approach completed Bianca Pascal NP [address], [place], [address], [place] [facility] 08/19/2022 13:21:53 Imaging Results None recorded. Procedure Notes None recorded. Medical Equipment None Reported. Allergies Allergen ID Allergen Name Allergen Category Reaction Reaction Severity Criticality Documentation Date Start Date Code Code System Note Provider Name and Address Organization Details Recorded Time 051010 Cipro medicatio n Not available Not available Not available 08/19/202205920 3 RxNorm Bianca Pascal NP [address], [place], [address], [place] [facility] 13:18:54 Medications Name Sig Start Date [...] in Arterial blood by Pulse oximetry Systolic And Diastolic Provider Name and Address Organization Details Last Updated DateTime 18 /min 98.8 [degF] 89 /min 94 % 94 % 116/70 mm[Hg] Not Available [facility] 13:21:58 Social History Question Answer Notes LastModified by [employer] Details LastModified Time Tobacco Smoking Status Former Smoker Bianca Pascal, [facility] [address] [facility] [place], [address], [place] [facility] 08/19/2022 13:22:36 Do You Have An Advance Directive? Yes [email or web address] Information not available 08/19/2022 What Is Your Code Status? Full Code [email or web address] Information not available 08/19/2022 Within The Past 12 Months, Has It Happened That The Food You Bought Just Didn't Last And You Didn't Have Money To Get More. Sometimes True [email or web address] Information not available 08/19/2022 Within The Past 12 Months, Have You Worried That Your Food Would Run Out Before You Got Money To Buy More. Sometimes True [email or web address] Information not available 08/19/2022 Fall Risk: Do You Feel Unsteady When Standing Or Walking? Yes [email or web address] Information not available 08/19/2022 Does This Patient Have A PCP? Yes [email or web address] Information not available 08/17/2022 Has The Patient Seen Their PCP In The Past 6 Months? Yes [email or web address] Information not available 08/17/2022 Social Support: Do You Feel Safe? Yes [email or web address] Information not available 08/19/2022 Has Tobacco Cessation Counseling Been Provided? No [email or web address] Information not available 08/19/2022 Sex: Unknown Functional Status Question Answer Note LastModified by [employer]. Details LastModified Time Do you use any illicit or recreational drugs? Yes heroin use 2022 [email or web address] Information not available 08/19/2022 What is your level of alcohol consumption? None [email or web address] Information not available 08/19/2022 Mental Status None recorded. Family History Relationship Description Onset Age of this Age Resolved Age Notes LastModified by Organization Details LastModified Time Mother Malignant neoplastic disease [email or web address] Not available 2022 13:22:14 Maternal Grandfather Malignant neoplastic disease Not available 2022 13:22:24 Medical History Condition Response Cancer Y CHF Y Hypertension Y COPD Y Kidney Disease Gynecological HistoryNo gynecological history recorded. Obstetrics History GPAL:G 0 P 0 0 0 0 Past Encounters Encounter ID Performer Location Encounter Start Date Encounter Closed Date Diagnosis/Indication Diagnosis SNOMED-CT Code Diagnosis ICD10 Code Diagnosis Note [id number] Bianca Pascal NP [facility] [address] [place] [address] 08/19/2022 12:35:34 08/20/2022 15:06:31 Stasis dermatitis [id number] I87.2 Status of condition: Exacerbati on/Acute on [...] her healing. Lymphedema of bilateral lower limbs [id number] I89.0 Status of condition: Chronic. Testing/Re sults: [...] ID Guarantor Name 08/21/2022 1 [place]ICARE B-[place]: [employer] Deirdre Galeas [id number] Deirdre Galeas 08/17/2022 1 *SELF PAY* Deirdre Galeas [id number] Deirdre Galeas 08/20/2022 2 [place] [facility] Deirdre Galeas [id number] Deirdre Galeas OBGyn Episode No OBEpisode recorded.
== END 2024-09-04 14:36 | disposition home or self-care (01) ==
LOC: HO.HKA 14:17
PROVIDERS: PCP Internal Medicine; Visit Provider Internal Medicine Hypertension Specialist
DX: N18.5 Chronic kidney disease, stage 5 (principal); D63.1 Anemia in chronic kidney disease; J44.1 Chronic obstructive pulmonary disease with (acute) exacerbation; I12.0 Hypertensive chronic kidney disease with stage 5 chronic kidney disease or end stage renal disease; N25.81 Secondary hyperparathyroidism of renal origin; N40.1 Benign prostatic hyperplasia with lower urinary tract symptoms
CPT/HCPCS: 99214

== ENCOUNTER → 2024-09-04 14:16 | Outpatient (BNVA) | payer MEDICARE, SELFPAY | PROVIDERS: PCP Internal Medicine; Visit Provider Internal Medicine Hypertension Specialist | DX: I12.0 Hypertensive chronic kidney disease with stage 5 chronic kidney disease or end stage renal disease (principal); N18.5 Chronic kidney disease, stage 5; D63.1 Anemia in chronic kidney disease; J44.1 Chronic obstructive pulmonary disease with (acute) exacerbation; N25.81 Secondary hyperparathyroidism of renal origin | CPT/HCPCS: 96372; 99212; Q5106 ==

== ENCOUNTER 2024-09-05 17:38 | Inpatient (IN) | payer MEDICARE, SELFPAY ==
[2024-09-05] VITALS (7 sets, daily range): BP systolic 142–177; BP diastolic 70–118; PULSE 95–113; RESP 14–25; TEMP 37–37.7; O2SAT 77–98; BMI 39.9
--- NOTE | ~2024-09-05 | CT_ITS ---
CLINICAL HISTORY: ams CT head without contrast Comparison: None provided Findings: No intracranial mass, midline shift, hydrocephalus, or acute hemorrhage. No acute process in sinuses or mastoids. No acute bony abnormality. Impression: No acute intracranial process This document has been electronically signed by: Alexis Huynh MD on 09/05/2024 21:47:09
--- NOTE | ~2024-09-05 | XR_ITS ---
CLINICAL HISTORY: Status post fall 1 view pelvis Comparison: None provided Findings: Study is mildly limited by large body habitus. There is no evidence of a fracture. Joint spaces and joint alignment appear normal. There is a bladder catheter. IMPRESSION: No radiographic evidence of pelvic injury. This document has been electronically signed by: Navdeep Mi MD on 09/06/2024 03:05:57
--- NOTE | ~2024-09-05 | XR_ITS ---
CLINICAL HISTORY: sob 1 view chest x-ray Comparison: 08/19/2023, 12/13/2022 Findings: Lungs are clear without acute infiltrates. Stable chronic interstitial fibrosis pattern. Stable right perihilar scarring. No pneumothorax. Heart size normal. No acute bony abnormalities. Old right rib fractures. Impression: No acute processes This document has been electronically signed by: Alexis Huynh MD on 09/05/2024 23:18:37
--- NOTE | 2024-09-05 18:04 | ECG_ITS ---
Test Reason : FALL Blood Pressure : */* mmHG Vent. Rate : 91 BPM Atrial Rate : 91 BPM P-R Int : 160 ms QRS Dur : 90 ms QT Int : 366 ms P-R-T Axes : 67 46 43 degrees QTcB Int : 450 ms Normal sinus rhythm Normal ECG When compared with ECG of 28-Jan-2024 22:45, Premature ventricular complexes are no longer Present Referred By: Generic ED Physician Electronically Signed By: THERESA BRENNAN MD
[2024-09-05 18:13] LABS: Hematocrit 28.2 % (37.0-47.0); Hemoglobin 8.2 g/dl (12.0-16.0); Imm Gran Abs Auto 0.11 X10*3/uL (0.00-0.03); Imm Gran Pct Auto 1.0 % (0.0-0.4); Lymphocytes Absolute Auto 1.5 X10*3/uL (1.2-4.9); MANUAL DIFF FLAG SCAN; Mean Corpuscular HGB Conc 29.1 g/dl (31.0-35.0); Mean Corpuscular Hemoglobin 28.0 pg (27.0-33.0); Mean Corpuscular Volume 96.2 fL (80.0-98.0); NRBC Abs Auto 0.080 X10*3/uL (0.0-0.012); NRBC Pct Auto 0.7 /100WBC (0.0-0.2); Platelet Count 269 X10*3/uL (160-400); Red Blood Count 2.93 X10*6/uL (4.20-5.50); SCAN SMEAR FLAG 1; White Blood Count 11.0 X10*3/uL (4.8-10.8)
[2024-09-05 18:14] LABS: Venous Blood Gas Refer to POC result
[2024-09-05 18:16] LABS: VBG HCO3 25 mmol/L (22-26); VBG O2 % Saturation 96.0 %
--- NOTE | 2024-09-05 18:28 | ED.AMS ---
HPI - Altered Mental Status General Chief Complaint: Altered Mental Status Stated Complaint: episodes of sleepiness & syncope x1week Time Seen by Provider: 09/05/24 18:10 Source: EMS Mode of arrival: EMS Limitations: no limitations History of Present Illness ED Provider: HPI narrative: Patient is brought by ambulance for increased sleepiness for last 1 week falling asleep even while standing patient fell today also hitting her left hip but able to ambulate no significant pain patient is under increased stress and depression as her son in 05/02 from overdose patient does have history of substance abuse use cocaine and opiates patient admits on arrival that she used cocaine patient does have a history of COPD chronic respiratory failure LEO and uses 2 L oxygen all the time and CPAP when she sleep also does have history of lung cancer seizure CKD Related Data Home Medications ?Medication ?Instructions ?Recorded ?Confirmed acetaminophen 325 mg tablet 650 mg PO Q6H PRN Pain 07/24/21 09/04/24 methadone 10 mg/mL oral concentrate 70 mg PO DAILY 05/22/22 09/04/24 fluticasone propionate 50 1 spray intranasal DAILY 10/01/22 09/04/24 mcg/actuation nasal spray,suspension hydroxyzine pamoate 100 mg capsule 100 mg PO BEDTIME PRN insomnia 12/13/22 09/04/24 guaifenesin 600 mg tablet, 600 mg PO BID PRN copd/Mucus 05/25/23 09/04/24 extended release 12 hr (Mucinex) lorazepam 1 mg tablet 1 mg PO BID PRN 05/25/23 09/04/24 Previous Rx's ?Medication ?Instructions ?Recorded aspirin 81 mg tablet,delayed 81 mg PO DAILY #30 tabs 12/11/19 release sodium zirconium cyclosilicate 10 10 g PO DAILY #10 ea 10/25/23 gram oral powder packet (Lokelma) atorvastatin 10 mg tablet 10 mg PO BEDTIME #90 tabs 04/14/24 cinacalcet 30 mg tablet 30 mg PO DAILY #30 tabs 04/18/24 Held on 05/30/24. Instructions: Doctor's Order gabapentin 100 mg capsule 100 mg PO DAILY PRN for pain #30 04/23/24 caps ipratropium 0.5 mg-albuterol 3 mg 3 ml inhalation Q4-6H PRN 05/10/24 (2.5 mg base)/3 mL nebulization shortness of breath or wheezing soln #180 mL Breo Ellipta 100 mcg-25 mcg/dose 1 ea PO DAILY copd 90 days #3 ea 07/12/24 powder for inhalation (fluticasone furoate-vilanterol) torsemide 20 mg tablet 20 mg PO BID #180 tabs 07/31/24 azithromycin 250 mg tablet 250 mg PO 3XW copd/BRONCHITIS 90 08/03/24 days #39 tabs prednisone 5 mg tablet 5 mg PO Q OTHER DAY Asthma/COPD 08/03/24 90 days #45 tabs carvedilol 3.125 mg tablet 3.125 mg PO BID #180 tabs 08/21/24 Allergies Allergy/AdvReac Type Severity Reaction Status Date / Time ciprofloxacin (From Cipro) Allergy Severe HIVES/SWELLING, Verified 09/05/24 17:55 THROAT CLOSES shellfish derived (SHELLFISH Allergy Intermediate Vomiting Verified 09/05/24 17:55 DERIVED) NSAIDS (Non-Steroidal AdvReac Severe Avoid due Verified 09/05/24 17:55 Anti-Inflamma to kidney disease Review of Systems Review of Systems: Yes Unobtainable due to mental status PMFSH Past Medical History Medical History Respiratory failure with hypoxia Dyslipidemia History of lung cancer Hx of bronchitis CKD (chronic kidney disease) stage 4, GFR 15-29 ml/min Morbid obesity COPD (chronic obstructive pulmonary disease) Polysubstance abuse Respiratory failure with hypoxia and hypercapnia Ambulates with cane Seasonal allergies Herpes zoster Osteopenia (~2017) Respiratory failure COVID-19 (~03/2021) Osteoarthritis of ankles, bilateral Olecranon bursitis of left elbow Tubulovillous adenoma of large intestine (~2020) Hx of cardiac arrest (~2015) O2 dependent Methadone maintenance therapy patient History of claustrophobia History of seizure Anxiety and depression HTN (hypertension) Multiple fractures of ribs Anemia in chronic kidney disease Vitamin D deficiency Family history of colon cancer Restrictive lung disease LEO (obstructive sleep apnea) Surgical History Hx of tracheostomy History of esophagogastroduodenoscopy (EGD) (~2021) History of removal of ureteral stent (~2013) History of lung biopsy (~2019) History of colonoscopy (~2020) Umbilical hernia History of laparoscopy (~2012) History of hand surgery History of tubal ligation Family History Family History Father Diabetes mellitus Mother Depression Mental health disorder Maternal Grandfather Colon cancer Sister No problems noted. Son No problems noted. Daughter No problems noted. Daughter No problems noted. Social History Social History Household Members: Unknown / Unable to assess Housing: House Housing Other:: mobile home Are you a primary healthcare technician to a significant other at home: No Do you presently have visiting nurse or other home services: No Unable to assess alcohol history related to: Unable to respond Alcohol intake: never Comment: restraints Patient Tobacco Use Status: Former Tobacco user Tobacco use type: Cigarette Years Smoked: 25 yrs e-Cigarette/Vaping Use: Never Used Substance Use Type: Heroin Advance Directives: Yes Advance Directives on File: Yes Advance Directives Date on File: 03/21/21 Do you have a plan to hurt others: No Plan service: No Current occupational status: unemployed and disabled Cognitive needs: No Hearing needs: No Vision needs: No Physical Exam ED Vital Signs: Vital Signs - 24 hr 09/05/24 17:51 09/05/24 19:04 09/05/24 19:12 Temperature 99.8 F Pulse Rate 96 113 H 108 H Respiratory Rate 14 25 H 24 H Blood Pressure 142/70 H 145/118 H Pulse Oximetry 88 L 92 Oxygen Delivery Method Nasal Cannula Oxymask Oxygen Flow Rate 4 09/05/24 20:33 09/05/24 22:22 09/05/24 23:35 Temperature 98.6 F Pulse Rate 95 95 Respiratory Rate 15 15 Blood Pressure 155/86 H 177/79 H Pulse Oximetry 95 94 77 L Oxygen Delivery Method Oxymask Oxymask Room Air Oxygen Flow Rate 2 2 09/05/24 23:45 09/06/24 00:27 Temperature Pulse Rate Respiratory Rate 17 Blood Pressure Pulse Oximetry 93 Oxygen Delivery Method Oxymask Oxygen Flow Rate 1 BMI result Body Mass Index 39.9 Appearance: Obtunded arousable to painful stimuli moving all 4 extremities. No acute distress. Eyes: Pupils 2 mm b/lreacting to light No Nystagmus ENT: Pharynx normal. Oral Mucosa moist Neck: Normal inspection. Neck supple. CVS: Normal heart rate and rhythm. Pulses normal. Respiratory: Moderate respiratory distress. Shallow air entry bilateral, no wheezing/rales/rhonchi Abdomen: Soft and nontender. Bowel sounds are present, no mass palpable, no CVA tenderness Skin: Skin warm and dry. Normal skin color. Normal skin turgor. Extremities: No lower extremity edema. No calf tenderness Neuro: Obtunded arousable on pain stimuli. No motor deficit. Medications Administered Discontinued Medications Generic Name Dose Route Start Last Admin Trade Name Alfq PRN Reason Stop Dose Admin Ceftriaxone Sodium 2 gm 09/05/24 22:30 09/05/24 22:49 Ceftriaxone Sodium 2 Gm Vial IVPUSH 09/05/24 22:31 2 gm ONCE ONE Administration Albuterol Sulfate 5 mg/ 0 mg 09/05/24 18:52 09/05/24 19:12 Albuterol/Ipratropium 3 ml INHALE 09/05/24 18:53 1 each ONCE ONE Administration Sodium Chloride 1,000 mls @ 999 mls/hr 09/05/24 20:18 09/05/24 22:15 Ns IV 09/05/24 21:18 Infused .Q1H1M ONE Infusion Sodium Chloride 1,000 mls @ 999 mls/hr 09/05/24 22:30 09/05/24 22:49 Ns IV 09/05/24 23:30 999 mls/hr .Q1H1M ONE Administration Naloxone HCl 0.4 mg 09/05/24 18:39 09/05/24 18:46 Naloxone Hcl 0.4 Mg/Ml Vial IVPUSH 09/05/24 18:40 0.4 mg ONCE ONE Administration Medical Decision Making Medical Decision Making [facility] Narrative: Patient's history of substance abuse comes here for increased lethargy falling asleep workup showed positive for fentanyl and cocaine negative for benzos likely patient has overdose on fentanyl patient's transiently responded to Narcan falling sleep after that but able to breathe saturating 90% at room placed on BiPAP with a history of CO2 retention in the past ABG showed respiratory acidosis also does have CKD with creatinine of 4.1 and GFR of 11 as in the past. Will admit patient for observation on BiPAP patient is also noted to be having UTI will start on antibiotics patient also received IV fluids Differential Diagnosis Differential Diagnoses: The differential diagnosis associated with the presentation includes Metabolic encephalopathy/substance abuse/UTI/bacteremia/pneumonia/aspiration Admission/Observation Consideration of admission/observation: Escalation of care including admission/observation considered Consult Healthcare Provider Management of the patient was discussed with: Hospitalist Lab Data MDM Lab Attestation statement: I reviewed the patient's lab results. 09/05/24 18:06 09/05/24 18:06 Labs: Lab Results 09/05/24 09/05/24 09/05/24 Range/Units 18:06 18:12 21:26 WBC 11.0 H (4.8-10.8) X10*3/uL RBC 2.93 L (4.20-5.50) X10*6/uL Hgb 8.2 L (12.0-16.0) g/dl Hct 28.2 L (37.0-47.0) % MCV 96.2 (80.0-98.0) fL MCH 28.0 (27.0-33.0) pg MCHC 29.1 L (31.0-35.0) g/dl RDW 14.0 (11.0-16.0) % Plt Count 269 (160-400) X10*3/uL MPV 9.4 (9.4-12.3) fL Immature Gran % (Auto) 1.0 H (0.0-0.4) % Neut % (Auto) 68.6 (45-73) % Lymph % (Auto) 13.4 L (20-40) % [place] % (Auto) 16.5 H (2-11) % Eos % (Auto) 0.0 (0-4) % Baso % (Auto) 0.5 (0-2) % Lymph # (Auto) 1.5 (1.2-4.9) X10*3/uL [place] # (Auto) 1.8 H (0.1-1.2) X10*3/uL Eos # (Auto) 0.0 (0.0-0.4) X10*3/uL Baso # (Auto) 0.1 (0.0-0.2) X10*3/uL Abs Immat Gran (auto) 0.11 H (0.00-0.03) X10*3/uL Absolute Neuts (auto) 7.6 (2.0-8.3) x10*3/uL Absolute Nucleated RBC 0.080 H (0.0-0.012) X10*3/uL Nucleated RBC % (auto) 0.7 H (0.0-0.2) /100WBC Smear Tech's Comments VERIFIED O2 Saturation % ABG pH at Pt Temp (7.35-7.45) ABG pCO2 at Pt Temp (32-45) mmHg ABG pO2 at Pt Temp (83-108) mmHg ABG HCO3 (22-26) mmol/L ABG Base Excess (Actual) mmol/L VBG pH 7.26 L (7.32-7.43) VBG pCO2 56 mmHg VBG pO2 79 mmHg VBG HCO3 25 (22-26) mmol/L VBG O2 Saturation 96.0 % VBG Base Excess -1.5 mmol/L Sodium 146 H (135-145) mmol/L Potassium 4.7 (3.3-5.1) mmol/L Chloride 112 H (96-108) mmol/L Carbon Dioxide 24 (22-29) mmol/L Anion Gap 15 (12-20) BUN 36 H (9-16) mg/dL Creatinine 4.11 H* (0.5-1.4) mg/dL Estim Creat Clear Calc 15.0 Estimated GFR 11 Random Glucose 105 (60-115) mg/dL Lactic Acid 0.6 (0.5-2.0) mmol/L Calcium 8.5 D (8.4-10.2) mg/dL Total Bilirubin 0.2 (0.0-1.0) mg/dL AST 33 H (5-31) U/L ALT 22 (0-31) U/L Alkaline Phosphatase 98 (39-117) U/L Troponin I High Sens 29.4 H D (<3.5-17.0) ng/L Total Protein 6.7 (6.5-8.0) g/dL Albumin 4.0 (3.5-5.0) g/dL Urine Color Yellow Urine Appearance Cloudy Urine pH 6.0 (5.0-9.0) Ur Specific [place] 1.010 (1.005-1.025) Urine Protein 100 (2+) H (Neg-Trace) mg/dL Urine Glucose (UA) Negative (Negative) mg/dL Urine Ketones Negative (Negative) mg/dL Urine Blood Small (1+) H (Negative) Urine Nitrite Negative (Negative) Ur Leukocyte Esterase Moderate (2+) H (Negative) Urine RBC 0-2 (0-2) /HPF Urine WBC >50 H (0-5) /HPF Ur Squamous Epith Cells 0-2 (0-2) /HPF Urine Bacteria 4+ (None Seen) Hyaline Casts 0-2 (0-2) /LPF Urine Opiates Screen POSITIVE H (Not Detect) Ur Buprenorphine Scrn Not Detected (Not Detect) ng/mL Ur Oxycodone Screen Not Detected (Not Detect) ng/mL Urine Methadone Screen Positive H (Not Detect) ng/mL Urine Fentanyl Screen POSITIVE H (Not Detect) Ur Barbiturates Screen Not Detected (Not Detect) Ur Phencyclidine Scrn Not Detected (Not Detect) Ur Amphetamines Screen Not Detected (Not Detect) U Benzodiazepines Scrn Not Detected (Not Detect) Urine Cocaine Screen POSITIVE H (Not Detect) U Marijuana (THC) Screen Not Detected (Not Detect) Ethyl Alcohol < 10 mg/dL 09/05/24 09/06/24 Range/Units 23:17 00:18 WBC (4.8-10.8) X10*3/uL RBC (4.20-5.50) X10*6/uL Hgb (12.0-16.0) g/dl Hct (37.0-47.0) % MCV (80.0-98.0) fL MCH (27.0-33.0) pg MCHC (31.0-35.0) g/dl RDW (11.0-16.0) % Plt Count (160-400) X10*3/uL MPV (9.4-12.3) fL Immature Gran % (Auto) (0.0-0.4) % Neut % (Auto) (45-73) % Lymph % (Auto) (20-40) % [place] % (Auto) (2-11) % Eos % (Auto) (0-4) % Baso % (Auto) (0-2) % Lymph # (Auto) (1.2-4.9) X10*3/uL [place] # (Auto) (0.1-1.2) X10*3/uL Eos # (Auto) (0.0-0.4) X10*3/uL Baso # (Auto) (0.0-0.2) X10*3/uL Abs Immat Gran (auto) (0.00-0.03) X10*3/uL Absolute Neuts (auto) (2.0-8.3) x10*3/uL Absolute Nucleated RBC (0.0-0.012) X10*3/uL Nucleated RBC % (auto) (0.0-0.2) /100WBC Smear Tech's Comments O2 Saturation 86.0 % ABG pH at Pt Temp 7.20 L* (7.35-7.45) ABG pCO2 at Pt Temp 63 H* (32-45) mmHg ABG pO2 at Pt Temp 56 L (83-108) mmHg ABG HCO3 25 (22-26) mmol/L ABG Base Excess (Actual) -2.9 mmol/L VBG pH 7.32 (7.32-7.43) VBG pCO2 39 mmHg VBG pO2 218 mmHg VBG HCO3 21 L (22-26) mmol/L VBG O2 Saturation 99.0 % VBG Base Excess -4.5 mmol/L Sodium (135-145) mmol/L Potassium (3.3-5.1) mmol/L Chloride (96-108) mmol/L Carbon Dioxide (22-29) mmol/L Anion Gap (12-20) BUN (9-16) mg/dL Creatinine (0.5-1.4) mg/dL Estim Creat Clear Calc Estimated GFR Random Glucose (60-115) mg/dL Lactic Acid (0.5-2.0) mmol/L Calcium (8.4-10.2) mg/dL Total Bilirubin (0.0-1.0) mg/dL AST (5-31) U/L ALT (0-31) U/L Alkaline Phosphatase (39-117) U/L Troponin I High Sens (<3.5-17.0) ng/L Total Protein (6.5-8.0) g/dL Albumin (3.5-5.0) g/dL Urine Color Urine Appearance Urine pH (5.0-9.0) Ur Specific [place] (1.005-1.025) Urine Protein (Neg-Trace) mg/dL Urine Glucose (UA) (Negative) mg/dL Urine Ketones (Negative) mg/dL Urine Blood (Negative) Urine Nitrite (Negative) Ur Leukocyte Esterase (Negative) Urine RBC (0-2) /HPF Urine WBC (0-5) /HPF Ur Squamous Epith Cells (0-2) /HPF Urine Bacteria (None Seen) Hyaline Casts (0-2) /LPF Urine Opiates Screen (Not Detect) Ur Buprenorphine Scrn (Not Detect) ng/mL Ur Oxycodone Screen (Not Detect) ng/mL Urine Methadone Screen (Not Detect) ng/mL Urine Fentanyl Screen (Not Detect) Ur Barbiturates Screen (Not Detect) Ur Phencyclidine Scrn (Not Detect) Ur Amphetamines Screen (Not Detect) U Benzodiazepines Scrn (Not Detect) Urine Cocaine Screen (Not Detect) U Marijuana (THC) Screen (Not Detect) Ethyl Alcohol mg/dL Independent Interpretation I performed an independent interpretation of an: EKG and Plain X-Ray Interpretation: Normal sinus rhythm heart rate of 91 beats per minute normal interval normal axis no acute ST-T no acute ischemia Radiology Impression Discussion of test interpretation with radiology: I have reviewed the radiologist's reading. Critical Care Time Critical Care Time Critical Care Time: Yes Total Critical Care Time: 75 Attestation: Time is exclusive of separately billable procedures. Time includes: direct patient care, patient reassessment, coordination of patient care, interpretation of data (laboratory data, pulse oximetry, arterial blood gases and chest xrays), review of patient's medical records, medical consultation and documentation of patient care. Procedures excluded from critical care time: central intravenous line placement and electrocardiography. Discharge Plan Discharge Clinical Impression: Respiratory failure with hypoxia, CKD (chronic kidney disease), COPD (chronic obstructive pulmonary disease), Polysubstance abuse Patient Disposition: Admitted As Inpatient Print Language: Sudanese
[2024-09-05 18:33] LABS: Anion Gap 15 (12-20); Blood Urea Nitrogen 36 mg/dL (9-16); Carbon Dioxide 24 mmol/L (22-29); Chloride 112 mmol/L (96-108); Potassium 4.7 mmol/L (3.3-5.1); Sodium 146 mmol/L (135-145)
[2024-09-05 18:34] LABS: Alanine Aminotransferase 22 U/L (0-31); Albumin Level 4.0 g/dL (3.5-5.0); Alkaline Phosphatase 98 U/L (39-117); Aspartate Amino Transferase 33 U/L (5-31); Calcium 8.5 mg/dL (8.4-10.2); Total Protein 6.7 g/dL (6.5-8.0)
[2024-09-05 18:35] LABS: Troponin-I High Sensitivity 29.4 ng/L (<3.5-17.0)
--- NOTE | 2024-09-05 18:37 | PC.NURSE ---
Addendum entered by Ines Roy RN 09/05/24 19:04: patient bilat legs noted to be red and swollen. pedal pulses present. Original Note: patient presented to the ED via ambulance from home, per ems patient has been having increased sleepiness at home, patient has been falling asleep while standing up, patient has been falling due to falling asleep. patient is sleepy during triage, currently on 4l NC due to hypoxia 86%, patient normally wears 2lNC at baseline. patient states that she has been having increased stress at home, her son in april due to OD and her mother is terminally ill, patient did not want to come to hsospital due to fear of missing her mothers , denies SI/HI. patient states she did use $20 worth of cocaine intranasal to try and stay awake , patient endorses methadone daily which [facility] brings her. patient was in sinus tach when she arrived to ED, pupils are equal and reactive to light. #20 placed in the RFA. labs drawn and obtained. 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 patient also told this RN that something had prolasped, she is unsure if it is her uterus.
[2024-09-05 18:45] LABS: Creatinine Clr Calc Pharmacy 15.0; Estimated Glomerular Filt Rate 11
--- NOTE | 2024-09-05 18:48 | PC.NURSE ---
patient given ivp narcan per APR, patient noted to become more agitated, yawning, o2 sat improved to 98% on 4lNC. patient noted to be fidgeting in bed. patient speech not making sense at this time. patient is noted to be wheezing at this time post IVP narcan.
--- NOTE | 2024-09-05 19:05 | PC.NURSE ---
this rn at bedside with previous rn, narcan given at this time. after narcan administration pt became agitated, with labored breathing, sating 84%, pupils appeared uneven. brought to bedside to assess pt. pt moved into room 22, pt placed on capanography and an oxymax 4L sating 95%. pt noted to have expiratory wheezing and pt is tachycardic 100-114bpm
[2024-09-05] MEDS: Albuterol Sulfate 5 MG, Albuterol/Iprat 2.5/0.5MG 3 ML 3 ML INHALE (19:12)
--- OUTSIDE RECORDS SUMMARY | 2024-09-05 19:41 | XMS_ITS | Clinical Summary ---
Author Organization [facility] Address [address] [place] [address] Care Team Providers Care Pediatric Allergist Name Role Phone Patient, Has No Pcp [...] age to complete this topic Insurance MEDICARE [facility] Care Teams Pediatric Allergist Relationship Specialty Start Date End Date Patient, Has No Pcp Or Ref DO NOT EDIT THIS RECORD VIA PROVIDER ON THE FLY PCP - General Customer Service Assistant 06/10/21
--- OUTSIDE RECORDS SUMMARY | 2024-09-05 19:41 | XMS_ITS | Data Portability ---
Author Organization [place] [facility] Address [address] [place] [id number] Care Team Providers Care Compound Filler Name Role Phone [facility] Primary Care Provider Assessment Encounter Date Assessment Date Assessment LastModified by Organization Details LastModified Time 08/19/2022 08/19/2022 Brief Overview: Pt is 62 year old F with previous medical history of CHF, COPD, lung cancer, htn, stage 4 kidney disease, [place], chronic lower extremity edema, with cc today [...] after care of this patient according to [facility] infection prevention protocols. Time On Scene with Patient: 00:33:49 [email or web address] Not available 08/19/2022 20:13:05 Plan of Treatment [...] By Organization Details Last Modified Time 08/19/2022 [id number] [facility]. You were seen today for [...] in your condition between 8am-10pm, please call [facility] at [phone] to help navigate your care. [email or web address] Not available 08/19/2022 13:24:42 Reason for Referral None Reported. Procedures Surgical History Date Name Laterality Status Provider Name and Address Organization Details Recorded Time ligation of fallopian tube completed Bianca Pascal NP [facility] [address], [place], [address], [place] [facility] 08/19/2022 13:21:29 tracheostomy, emergency procedure by transtracheal approach completed Bianca Pascal NP [address], [place], [address], [place] - [facility] 08/19/2022 13:21:53 Imaging Results None recorded. Procedure Notes None recorded. Medical Equipment None Reported. Allergies Allergen ID Allergen Name Allergen Category Reaction Reaction Severity Criticality Documentation Date Start Date Code Code System Note Provider Name and Address Organization Details Recorded Time [id number] Cipro medicatio n Not available Not available Not available 08/19/202293172 3 RxNorm Bianca Pascal NP [address], [place], [address], [place] [facility] 13:18:54 Medications Name Sig Start Date Stop [...] % 94 % 116/70 mm[Hg] Not Available [facility] 13:21:58 Social History Question Answer Notes LastModified by P2P-Next Details LastModified Time Tobacco Smoking Status Former Smoker Bianca Pascal, GIGI [address] [facility] [place], [address], [place] [facility] 08/19/2022 13:22:36 Do You Have An Advance Directive? Yes [email or web address] Information not available 08/19/2022 What Is Your Code Status? Full Code [email or web address] Information not available 08/19/2022 Within The Past 12 Months, Has It Happened That The Food You Bought Just Didn't Last And You Didn't Have Money To Get More. Sometimes True [email or web address] Information not available 08/19/2022 Within The Past 12 Months, Have You Worried That Your Food Would Run Out Before You Got Money To Buy More. Sometimes True [email or web address] Information not available 08/19/2022 Fall Risk: Do You Feel Unsteady When Standing Or Walking? Yes [email or web address] Information not available 08/19/2022 Does This Patient Have A PCP? Yes [email or web address] Information not available 08/17/2022 Has The Patient Seen Their PCP In The Past 6 Months? Yes [email or web address] Information not available 08/17/2022 Social Support: Do You Feel Safe? Yes [email or web address] Information not available 08/19/2022 Has Tobacco Cessation Counseling Been Provided? No Information not available 08/19/2022 Sex: Unknown Functional Status Question Answer Note LastModified by P2P-Next Details LastModified Time Do you use any illicit or recreational drugs? Yes heroin use 2022 Information not available 08/19/2022 What is your level of alcohol consumption? None [email or web address] Information not available 08/19/2022 Mental Status None recorded. Family History Relationship Description Onset Age of this Age Resolved Age Notes LastModified by Organization Details LastModified Time Mother Malignant neoplastic disease Not available 2022 13:22:14 Maternal Grandfather Malignant neoplastic disease [email or web address] Not available 2022 13:22:24 Medical History Condition Response CHF Y Cancer Y Hypertension Y COPD Y Kidney Disease Gynecological HistoryNo gynecological history recorded. Obstetrics History GPAL:G 0 P 0 0 0 0 Past Encounters Encounter ID Performer Location Encounter Start Date Encounter Closed Date Diagnosis/Indication Diagnosis SNOMED-CT Code Diagnosis ICD10 Code Diagnosis Note [id number] Bianca Pascal NP [facility] [address] [facility] [place] [address] 08/19/2022 12:35:34 08/20/2022 15:06:31 Stasis dermatitis 06298622 I87.2 Status of condition: Exacerbati on/Acute on [...] her healing. Lymphedema of bilateral lower limbs [id number] I89.0 Status of condition: Chronic. Testing/Re sults: [...] ID Guarantor Name 08/21/2022 1 [place]ICARE B-[place]: [employer] Deirdre Galeas [id number] Deirdre Galeas 08/17/2022 1 *SELF PAY* Deirdre Galeas [id number] Deirrde Galeas 08/20/2022 2 [place] [facility] Deirdre [facility]aleas [id number] Deirdre Galeas OBGyn Episode No OBEpisode recorded.
--- OUTSIDE RECORDS SUMMARY | 2024-09-05 19:41 | XMS_ITS | Clinical Summary ---
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 HTN (hypertension) 01/31/2024 Chronic back pain 01/31/2024 Lung cancer, middle lobe (CMS/[facility] V24, [facility] V 28) 12/29/2023 Cancer Staging:Clinical:Stage IB(cT2a, cN0, cM0) - Signed by Lonnie Mercer MD on 12/29/2023 Anemia in chronic kidney disease 08/10/2022 Chronic kidney disease, stag e 4 (severe) (CMS/[facility] V24, CMS/[facility] V28) 08/10/2022 Hypertensive renal disease 06/20/2020 Degenerative [...] Comments OTHER SURGICAL HISTORY - 1989 PROCEDURE: IA CAUTERY CERVIX CRYOCAUTERY INITIAL/REPEAT; COMMENT: for abnormal pap OTHER SURGICAL HISTORY PROCEDURE: [place] LIG/TRNSXJ FLP TUBE ABDL/VAG APPR UNI/BI OTHER SURGICAL HISTORY 2012 PROCEDURE: IA EXPLORATORY LAPAROTOMY CELIOTOMY W/WO BIOPSY SPX; COMMENT: [...] Insurance MEDICAID - [place] MEDICARE Care Teams Regulatory Affairs Manager Relationship Specialty Start Date End Date Valerie Castano MD [address] [place] [address] PCP - General 05/21/10
[2024-09-05 21:40] LABS: Appearance Urine Cloudy; Glucose Urine UA Negative (Negative); PH 6.0 (5.0-9.0); Specific Gravity - Urine 1.010 (1.005-1.025); UMIC TRIGGER UACC YES
[2024-09-05 21:50] LABS: Cannabinoid Screen Urine Not Detected (Not Detect)
[2024-09-05 21:54] LABS: UACC Culture Trigger YES
--- NOTE | 2024-09-05 22:07 | PC.NURSE ---
pt straight cath for urine sample at this time, 550 clear urine voided and urine sample obtained. farzana stein
[2024-09-05 23:20] LABS: Venous Blood Gas Refer to POC result
[2024-09-05 23:21] LABS: VBG HCO3 21 mmol/L (22-26); VBG O2 % Saturation 99.0 %
--- NOTE | 2024-09-05 23:45 | PC.NURSE ---
pper , remove o2 and trial pt off o2. pt de sat to 76%, pt replaced onto 1L oxymax. RT contacted and and pt placed on night time cpap
[2024-09-06] VITALS (25 sets, daily range): BP systolic 134–183; BP diastolic 55–91; PULSE 86–107; RESP 15–25; TEMP 36.3–37.6; O2SAT 87–100; BMI 39.3
--- NOTE | 2024-09-06 00:21 | PC.NURSE ---
temp sensing cota placed per provider order at this time, pt tolerated well, 500ml of clear urine voided.
[2024-09-06 00:23] LABS: ABG HCO3 25 mmol/L (22-26); ABG O2 % Saturation 86.0 %
[2024-09-06 00:26] LABS: ABG Refer to POC result
--- NOTE | 2024-09-06 02:22 | PM.IMHP ---
History of Present Illness Date of Service: 09/06/24 Attending physician on admission: Nicko Fields Chief Complaint: drowsiness Pt is a 64 yo female with a pmhx significant for chronic respiratory failure on 2L O2 at home, severe COPD, LEO on CPAP, hx lung cancer, CKD4, seizures, and morbid obesity, who presented to the ED due to increased drowsiness/sleeping for the past week, falling asleep while standing up, fell today on L hip. unable to stay awake during history. has had increased stress and depression at home since losing her son from an OD in April. In the ED the pt was found to have acute on chronic respiratory failure with hypercapnia, responsive to narcan as well as sepsis with UTI. Review of Systems Review of Systems: Yes Unobtainable due to mental condition PMFSH Medical History Respiratory failure with hypoxia Dyslipidemia History of lung cancer Hx of bronchitis CKD (chronic kidney disease) stage 4, GFR 15-29 ml/min Morbid obesity COPD (chronic obstructive pulmonary disease) Polysubstance abuse Respiratory failure with hypoxia and hypercapnia Ambulates with cane Seasonal allergies Herpes zoster Osteopenia (~2017) Respiratory failure COVID-19 (~03/2021) Osteoarthritis of ankles, bilateral Olecranon bursitis of left elbow Tubulovillous adenoma of large intestine (~2020) Hx of cardiac arrest (~2015) O2 dependent Methadone maintenance therapy patient History of claustrophobia History of seizure Anxiety and depression HTN (hypertension) Multiple fractures of ribs Anemia in chronic kidney disease Vitamin D deficiency Family history of colon cancer Restrictive lung disease LEO (obstructive sleep apnea) Family History Father Diabetes mellitus Mother Depression Mental health disorder Maternal Grandfather Colon cancer Sister No problems noted. Son No problems noted. Daughter No problems noted. Daughter No problems noted. Surgical History Hx of tracheostomy History of esophagogastroduodenoscopy (EGD) (~2021) History of removal of ureteral stent (~2013) History of lung biopsy (~2019) History of colonoscopy (~2020) Umbilical hernia History of laparoscopy (~2012) History of hand surgery History of tubal ligation Social History Household Members: Unknown / Unable to assess Housing: House Housing Other:: mobile home Are you a primary wound care coordinator to a significant other at home: No Do you presently have visiting nurse or other home services: No Unable to assess alcohol history related to: Unable to respond Alcohol intake: never Comment: restraints Patient Tobacco Use Status: Former Tobacco user Tobacco use type: Cigarette Years Smoked: 25 yrs e-Cigarette/Vaping Use: Never Used Substance Use Type: Heroin Advance Directives: Yes Advance Directives on File: Yes Advance Directives Date on File: 03/21/21 Do you have a plan to hurt others: No Plan service: No Current occupational status: unemployed and disabled Cognitive needs: No Hearing needs: No Vision needs: No Meds Allergies Allergy/AdvReac Type Severity Reaction Status Date / Time ciprofloxacin (From Cipro) Allergy Severe HIVES/SWELLING, Verified 09/05/24 17:55 THROAT CLOSES shellfish derived (SHELLFISH Allergy Intermediate Vomiting Verified 09/05/24 17:55 DERIVED) NSAIDS (Non-Steroidal AdvReac Severe Avoid due Verified 09/05/24 17:55 Anti-Inflamma to kidney disease Active Medications: Current Medications Acetaminophen (Acetaminophen 325 Mg Tablet) 975 mg PO Q6H PRN PRN Reason: Pain, Mild 1-3,fever,headache Albuterol/Ipratropium (Albuterol/Iprat 2.5/0.5mg 3 Ml Ampul.Neb) 3 ml INHALE Q4H PRN PRN Reason: Shortness of Breath/Wheezing Calcium Carbonate (Calcium Carbonate 750 Mg Tab.Chew) 750 mg PO Q4H PRN PRN Reason: Heartburn Ceftriaxone Sodium (Ceftriaxone Sodium 2 Gm Vial) 2 gm IVPUSH Q24H ANALISA Heparin Sodium (Porcine) (Heparin Sodium,Porcine 5,000 Unit/Ml Vial) 5,000 unit SUBCUT Q12H ANALISA Magnesium Hydroxide (Milk Of Magnesia 30 Ml Oral.Susp) 30 ml PO DAILY PRN PRN Reason: Constipation Melatonin (Melatonin 3 Mg Tablet) 6 mg PO BEDTIME PRN PRN Reason: Insomnia Ondansetron HCl (Ondansetron Hcl 4 Mg/2 Ml Vial) 4 mg IVPUSH Q8H PRN PRN Reason: Nausea and Vomiting Sodium Chloride (0.9 % Sodium Chloride Flush 3 Ml Syringe) 3 ml IVFLUSH QSHIFT [facility] Home Medications ?Medication ?Instructions ?Recorded ?Confirmed ?Last Taken ?Type acetaminophen 325 mg tablet 650 mg PO Q6H PRN Pain 07/24/21 09/04/24 Unknown History methadone 10 mg/mL oral concentrate 70 mg PO DAILY 05/22/22 09/04/24 12/12/22 History fluticasone propionate 50 1 spray intranasal DAILY 10/01/22 09/04/24 12/12/22 History mcg/actuation nasal spray,suspension hydroxyzine pamoate 100 mg capsule 100 mg PO BEDTIME PRN insomnia 12/13/22 09/04/24 Unknown History guaifenesin 600 mg tablet, 600 mg PO BID PRN copd/Mucus 05/25/23 09/04/24 Unknown History extended release 12 hr (Mucinex) lorazepam 1 mg tablet 1 mg PO BID PRN 05/25/23 09/04/24 Unknown History Physical Exam Vital Signs and Narrative: Vital Signs: Last Vital Signs Temp 99.5 F 09/06/24 02:14 Pulse 95 09/06/24 02:14 Resp 16 09/06/24 02:14 BP 175/75 H 09/06/24 02:14 Pulse Ox 90 L 09/06/24 02:14 O2 Del Method Room Air 09/06/24 02:14 O2 Flow Rate 1 09/05/24 23:45 Oxygen Flow Rate 4 09/05/24 17:51 BMI result Body Mass Index 39.9 General: AOx3, no acute distress. somnolent. Resp: CTA bilaterally CVS: S1, S2, RRR GI: +BS, NT, no distention Skin: Warm, dry Neuro: Cranial nerves II-XII grossly intact bilaterally. Motor grossly intact bilaterally Extremities: No edema Psych: Appropriate affect Results Labs 09/05/24 18:06 09/05/24 18:06 Labs: Laboratory Results - last 24 hr 09/05/24 09/05/24 09/05/24 18:06 18:12 21:26 MCV 96.2 MCH 28.0 MCHC 29.1 L RDW 14.0 Plt Count 269 MPV 9.4 Immature Gran % (Auto) 1.0 H Neut % (Auto) 68.6 Lymph % (Auto) 13.4 L [place] % (Auto) 16.5 H Eos % (Auto) 0.0 Baso % (Auto) 0.5 Lymph # (Auto) 1.5 [place] # (Auto) 1.8 H Eos # (Auto) 0.0 Baso # (Auto) 0.1 Abs Immat Gran (auto) 0.11 H Absolute Neuts (auto) 7.6 Absolute Nucleated RBC 0.080 H Nucleated RBC % (auto) 0.7 H Smear Tech's Comments VERIFIED O2 Saturation ABG pH at Pt Temp ABG pCO2 at Pt Temp ABG pO2 at Pt Temp ABG HCO3 ABG Base Excess (Actual) VBG pH 7.26 L VBG pCO2 56 VBG pO2 79 VBG HCO3 25 VBG O2 Saturation 96.0 VBG Base Excess -1.5 Anion Gap 15 Estim Creat Clear Calc 15.0 Estimated GFR 11 Random Glucose 105 Lactic Acid 0.6 Calcium 8.5 D Total Bilirubin 0.2 AST 33 H ALT 22 Alkaline Phosphatase 98 Total Protein 6.7 Albumin 4.0 Urine Color Yellow Urine Appearance Cloudy Urine pH 6.0 Ur Specific [place] 1.010 Urine Protein 100 (2+) H Urine Glucose (UA) Negative Urine Ketones Negative Urine Blood Small (1+) H Urine Nitrite Negative Ur Leukocyte Esterase Moderate (2+) H Urine RBC 0-2 Urine WBC >50 H Ur Squamous Epith Cells 0-2 Urine Bacteria 4+ Hyaline Casts 0-2 Urine Opiates Screen POSITIVE H Ur Buprenorphine Scrn Not Detected Ur Oxycodone Screen Not Detected Urine Methadone Screen Positive H Urine Fentanyl Screen POSITIVE H Ur Barbiturates Screen Not Detected Ur Phencyclidine Scrn Not Detected Ur Amphetamines Screen Not Detected U Benzodiazepines Scrn Not Detected Urine Cocaine Screen POSITIVE H U Marijuana (THC) Screen Not Detected Ethyl Alcohol < 10 09/05/24 09/06/24 23:17 00:18 MCV MCH MCHC RDW Plt Count MPV Immature Gran % (Auto) Neut % (Auto) Lymph % (Auto) [place] % (Auto) Eos % (Auto) Baso % (Auto) Lymph # (Auto) [place] # (Auto) Eos # (Auto) Baso # (Auto) Abs Immat Gran (auto) Absolute Neuts (auto) Absolute Nucleated RBC Nucleated RBC % (auto) Smear Tech's Comments O2 Saturation 86.0 ABG pH at Pt Temp 7.20 L* ABG pCO2 at Pt Temp 63 H* ABG pO2 at Pt Temp 56 L ABG HCO3 25 ABG Base Excess (Actual) -2.9 VBG pH 7.32 VBG pCO2 39 VBG pO2 218 VBG HCO3 21 L VBG O2 Saturation 99.0 VBG Base Excess -4.5 Anion Gap Estim Creat Clear Calc Estimated GFR Random Glucose Lactic Acid Calcium Total Bilirubin AST ALT Alkaline Phosphatase Total Protein Albumin Urine Color Urine Appearance Urine pH Ur Specific [place] Urine Protein Urine Glucose (UA) Urine Ketones Urine Blood Urine Nitrite Ur Leukocyte Esterase Urine RBC Urine WBC Ur Squamous Epith Cells Urine Bacteria Hyaline Casts Urine Opiates Screen Ur Buprenorphine Scrn Ur Oxycodone Screen Urine Methadone Screen Urine Fentanyl Screen Ur Barbiturates Screen Ur Phencyclidine Scrn Ur Amphetamines Screen U Benzodiazepines Scrn Urine Cocaine Screen U Marijuana (THC) Screen Ethyl Alcohol Assessment and Plan (1) Acute on chronic respiratory failure with hypoxia and hypercapnia: Status: Acute (2) Overdose: Status: Acute (3) Sepsis: Status: Acute (4) UTI (urinary tract infection): Status: Acute (5) Polysubstance abuse: Status: Acute (6) Morbid obesity: Status: Acute Quality VTE VTE Risk Level:: Medical - moderate - high VTE Device Contraindication: Treatment Not Indicated VTE Drug Contraindication: N/A - Med Ordered
--- NOTE | 2024-09-06 02:52 | PC.NURSE ---
at bedside, pt removed from bipap, pt noted to have increased work of breathing. plan for pt tp be on highflow, RT at bedside.
--- NOTE | 2024-09-06 02:55 | P.CONCC_ITS ---
History of Present Illness Data of Consult Service Date: 09/06/24 Requesting physician: Nicko Fields Primary Care Provider: Unknown Physician HPI Reason for consult: Respiratory distress Full note to follow. The patient seen, examined in the emergency room, chart reviewed and case discussed with the ER physician. The patient has been in the emergency room due to multidrug overdose for which she was given Narcan. She does have underlying history of COPD and appears to have a COPD exacerbation with moderate bronchial constriction, audible wheezing on exam. She has been treated appropriately thus far. She did show some signs of CO2 retention for which she was placed on BiPAP as her ABG did showed respiratory acidosis. During my encounter, the patient is alert, oriented x3, does not appear to be in respiratory distress, however she is quite anxious. Clinically she appears bronchial restricted, I have ordered a 10 mg albuterol treatment, small dose of Dilaudid 0.25 mg IV push for work of breathing and had requested the respiratory therapist to repeat the blood gas. The patient is refusing to use the BiPAP us she claims that she is claustrophobic and she will not use it despite of me warning her that she could worsen and this could lead to respiratory depression leading to intubation, to which she replied ?unwell if that is the case? but at this point I will not place that mask on. Review of he repeated gas shows the same if not worse respiratory acidosis, the patient is refusing BiPAP, we will talk to her about intubation, if she refuses unfortunately there is no much more that we could do for her. Case was discussed with Dr. Fields internal Medicine Services. [facility] Past Medical History Medical History Respiratory failure with hypoxia Dyslipidemia History of lung cancer Hx of bronchitis CKD (chronic kidney disease) stage 4, GFR 15-29 ml/min Morbid obesity COPD (chronic obstructive pulmonary disease) Polysubstance abuse Respiratory failure with hypoxia and hypercapnia Ambulates with cane Seasonal allergies Herpes zoster Osteopenia (~2017) Respiratory failure COVID-19 (~03/2021) Osteoarthritis of ankles, bilateral Olecranon bursitis of left elbow Tubulovillous adenoma of large intestine (~2020) Hx of cardiac arrest (~2015) O2 dependent Methadone maintenance therapy patient History of claustrophobia History of seizure Anxiety and depression HTN (hypertension) Multiple fractures of ribs Anemia in chronic kidney disease Vitamin D deficiency Family history of colon cancer Restrictive lung disease LEO (obstructive sleep apnea) Family History Family History Father Diabetes mellitus Mother Depression Mental health disorder Maternal Grandfather Colon cancer Sister No problems noted. Son No problems noted. Daughter No problems noted. Daughter No problems noted. Surgical History Surgical History Hx of tracheostomy History of esophagogastroduodenoscopy (EGD) (~2021) History of removal of ureteral stent (~2013) History of lung biopsy (~2019) History of colonoscopy (~2020) Umbilical hernia History of laparoscopy (~2012) History of hand surgery History of tubal ligation Social History Social History Household Members: Unknown / Unable to assess Housing: House Housing Other:: mobile home Are you a primary critical care unit nurse to a significant other at home: No Do you presently have visiting nurse or other home services: No Unable to assess alcohol history related to: Unable to respond Alcohol intake: never Comment: restraints Patient Tobacco Use Status: Former Tobacco user Tobacco use type: Cigarette Years Smoked: 25 yrs e-Cigarette/Vaping Use: Never Used Substance Use Type: Heroin Advance Directives: Yes Advance Directives on File: Yes Advance Directives Date on File: 03/21/21 Do you have a plan to hurt others: No Plan service: No Current occupational status: unemployed and disabled Cognitive needs: No Hearing needs: No Vision needs: No Meds Allergies Allergy/AdvReac Type Severity Reaction Status Date / Time ciprofloxacin (From Cipro) Allergy Severe HIVES/SWELLING, Verified 09/05/24 17:55 THROAT CLOSES shellfish derived (SHELLFISH Allergy Intermediate Vomiting Verified 09/05/24 17:55 DERIVED) NSAIDS (Non-Steroidal AdvReac Severe Avoid due Verified 09/05/24 17:55 Anti-Inflamma to kidney disease Active Medications: Current Medications Acetaminophen (Acetaminophen 325 Mg Tablet) 975 mg PO Q6H PRN PRN Reason: Pain, Mild 1-3,fever,headache Albuterol Sulfate 7.5 mg/ (Albuterol Sulfate 2.5 mg) 10 mg INHALE ONCE ONE Stop: 09/06/24 02:44 Albuterol/Ipratropium (Albuterol/Iprat 2.5/0.5mg 3 Ml Ampul.Neb) 3 ml INHALE Q4H PRN PRN Reason: Shortness of Breath/Wheezing Calcium Carbonate (Calcium Carbonate 750 Mg Tab.Chew) 750 mg PO Q4H PRN PRN Reason: Heartburn Ceftriaxone Sodium (Ceftriaxone Sodium 2 Gm Vial) 2 gm IVPUSH Q24H ANALISA Heparin Sodium (Porcine) (Heparin Sodium,Porcine 5,000 Unit/Ml Vial) 5,000 unit SUBCUT Q12H ANALISA Hydromorphone HCl (Hydromorphone Hcl 0.5 Mg/0.5 Ml Syringe) 0.25 mg IVPUSH ONCE ONE; Protocol Stop: 09/06/24 02:44 Magnesium Hydroxide (Milk Of Magnesia 30 Ml Oral.Susp) 30 ml PO DAILY PRN PRN Reason: Constipation Melatonin (Melatonin 3 Mg Tablet) 6 mg PO BEDTIME PRN PRN Reason: Insomnia Ondansetron HCl (Ondansetron Hcl 4 Mg/2 Ml Vial) 4 mg IVPUSH Q8H PRN PRN Reason: Nausea and Vomiting Sodium Chloride (0.9 % Sodium Chloride Flush 3 Ml Syringe) 3 ml IVFLUSH [facility] Home Medications ?Medication ?Instructions ?Recorded ?Confirmed ?Last Taken ?Type acetaminophen 325 mg tablet 650 mg PO Q6H PRN Pain 09/04/24 Unknown History methadone 10 mg/mL oral concentrate 70 mg PO DAILY 09/04/24 12/12/22 History fluticasone propionate 50 1 spray intranasal DAILY 09/04/24 12/12/22 History mcg/actuation nasal spray,suspension hydroxyzine pamoate 100 mg capsule 100 mg PO BEDTIME P RN insomnia 12/13/22 09/04/24 Unknown History guaifenesin 600 mg tablet, 600 mg PO BID PRN copd/Mucu s 05/25/23 09/04/24 Unknown History extended release 12 hr (Mucinex) lorazepam 1 mg tablet 1 mg PO BID PRN 05/25/23 Unknown History Physical Exam 2 Vital Signs: Vital Signs: Last Vital Signs Temp 99.5 F 09/06/24 02:14 Pulse 95 09/06/24 02:14 Resp 20 09/06/24 02:40 BP 175/75 H 09/06/24 02:14 Pulse Ox 90 L 09/06/24 02:14 O2 Del Method Room Air 09/06/24 02:14 O2 Flow Rate 1 09/05/24 23:45 Oxygen Flow Rate 4 09/05/24 17:51 BMI result Body Mass Index 39.9 Results Labs 09/05/24 18:06 09/05/24 18:06 Labs: Short CBC 09/05/24 Range/Units 18:06 WBC 11.0 H (4.8-10.8) X10*3/uL Hgb 8.2 L (12.0-16.0) g/dl Hct 28.2 L (37.0-47.0) % Plt Count 269 (160-400) X10*3/uL BMP 09/05/24 18:06 Sodium 146 H Potassium 4.7 Chloride 112 H Carbon Dioxide 24 BUN 36 H Creatinine 4.11 H* Calcium 8.5 D Liver Function 09/05/24 Range/Units 18:06 Total Bilirubin 0.2 (0.0-1.0) mg/dL AST 33 H (5-31) U/L ALT 22 (0-31) U/L Alkaline Phosphatase 98 (39-117) U/L Albumin 4.0 (3.5-5.0) g/dL Urine 09/05/24 Range/Units 21:26 Urine Color Yellow Urine Appearance Cloudy Urine pH 6.0 (5.0-9.0) Ur Specific [place] 1.010 (1.005-1.025) Urine Protein 100 (2+) H (Neg-Trace) mg/dL Urine Glucose (UA) Negative (Negative) mg/dL
[2024-09-06 03:04] LABS: Troponin-I High Sensitivity 39.7 ng/L (<3.5-17.0)
[2024-09-06] MEDS: Albuterol Sulfate 7.5 MG, Albuterol Sulfate (0.083%) 2.5 MG 10 MG INHALE (03:16)
[2024-09-06 03:25] LABS: ABG HCO3 25 mmol/L (22-26); ABG O2 % Saturation 94.0 %
[2024-09-06 03:28] LABS: ABG Refer to POC result
--- NOTE | 2024-09-06 03:30 | PC.NURSE ---
ICU PA and RT at bedside discussing plan for admission to ICU.
--- NOTE | 2024-09-06 03:34 | PC.NURSE ---
Jerson COVINGTON at bedside, plan for pt to go to unit on BIPAP, rt at bedside.
--- NOTE | 2024-09-06 03:52 | PM.CCHP ---
History of Present Illness Date of Service: 09/06/24 Attending physician on admission: Martin Nguyen Chief Complaint: Acute hypercarbic respiratory failure 64-year-old morbidly obese female with underlying history of chronic hypoxic respiratory failure who uses oxygen at home, history of lung cancer, hyperlipidemia, chronic kidney disease stage 4, COPD, polysubstance abuse who is supposed to be on methadone, hypertension, cardiac arrest in 2016, seizures, anxiety, depression, anemia of chronic disease, obstructive sleep apnea not compliant with CPAP among other things.? The patient had presented to emergency room with reported altered mental status, episodes of sleepiness and recurrent syncope for about 1 week.? Reportedly patient was falling asleep while standing and sustained a mechanical fall at home causing her to injure her left hip, however this did not affect her ability to ambulate.? Upon arrival to the emergency room she had reported to abuse cocaine and opioids although she had been somewhat obtunded but arousable with painful stimuli.? Her pupils were pinpoint it.? Her workup showed a white count of 11.0, H and H of 8.2 and 28.2 respectively.? Sodium 146, potassium 4.7, chloride 112, carbon dioxide 24, BUN 36, creatinine 4.1 (baseline), lactic acid 0.4.? Her urinalysis is positive for fentanyl, cocaine.? Her obtundation improved after Narcan administration, additionally her urine appears to be consistent with urinary tract infection for which she was given Rocephin.? Venous blood gas and and ABG were obtained due to concerns of possible CO2 retention and this shows acute respiratory acidosis with ABG pH of 7.2, pCO2 of 63, bicarb of 25.? The patient kept a mass for about 2 hours and when she woke up she had taken it often refused to use it again.? The concern is that the patient will decompensate without CPAP therefore ICU evaluation was requested. During my encounter, the patient is quite anxious, tachypneic but comes down with reassurance, she does not appear to be in any respiratory distress, continues to complain of diffuse body aches is asking for pain medications, refuses BiPAP.? Repeat ABG shows pH of 7.19, pCO2 of 64, PO2 74.? After a long discussion with the patient, she accepted to use BiPAP again, Dilaudid small dose was given for work of breathing along with albuterol.? The patient will be transferred to the ICU for further care.? Code status was addressed with the patient in case of decompensation and she is full code. ? Review of Systems Review of Systems: Yes Unobtainable due to mental status (refuses) [facility] Past Medical History Medical History Respiratory failure with hypoxia Dyslipidemia History of lung cancer Hx of bronchitis CKD (chronic kidney disease) stage 4, GFR 15-29 ml/min Morbid obesity COPD (chronic obstructive pulmonary disease) Polysubstance abuse Respiratory failure with hypoxia and hypercapnia Ambulates with cane Seasonal allergies Herpes zoster Osteopenia (~2017) Respiratory failure COVID-19 (~03/2021) Osteoarthritis of ankles, bilateral Olecranon bursitis of left elbow Tubulovillous adenoma of large intestine (~2020) Hx of cardiac arrest (~2015) O2 dependent Methadone maintenance therapy patient History of claustrophobia History of seizure Anxiety and depression HTN (hypertension) Multiple fractures of ribs Anemia in chronic kidney disease Vitamin D deficiency Family history of colon cancer Restrictive lung disease LEO (obstructive sleep apnea) Family History Family History Father Diabetes mellitus Mother Depression Mental health disorder Maternal Grandfather Colon cancer Sister No problems noted. Son No problems noted. Daughter No problems noted. Daughter No problems noted. Surgical History Surgical History Hx of tracheostomy History of esophagogastroduodenoscopy (EGD) (~2021) History of removal of ureteral stent (~2013) History of lung biopsy (~2019) History of colonoscopy (~2020) Umbilical hernia History of laparoscopy (~2012) History of hand surgery History of tubal ligation Social History Social History Household Members: Significant Other Housing: Unknown / Unable to assess Housing Other:: mobile home Are you a primary geriatric personal care aide to a significant other at home: No Do you presently have visiting nurse or other home services: Yes Unable to assess alcohol history related to: Unable to respond Alcohol intake: never Comment: restraints Patient Tobacco Use Status: Former Tobacco user Tobacco use type: Cigarette Years Smoked: 25 yrs Smoked in Last 30 Days: No e-Cigarette/Vaping Use: Former Use Patient Interested in Nicotine Replacement: No Patient Given Instructions on How to Stop Smoking: No Second Hand Smoke Exposure: No Substance Use Type: Heroin Currently Displaying Signs/Symptoms of Drug Intoxication Withdrawal: No Do you feel safe in your current relationship?: Yes Advance Directives: Yes Advance Directives Information Provided: No Advance Directives on File: Yes Advance Directives Date on File: 03/21/21 Do you have a plan to hurt others: No Plan Recently lost weight without trying: Unsure Nutrition Risks: No Nutritional Risk Patient : No : No Poor oral hygiene: No service: No Current occupational status: unemployed and disabled Cognitive needs: No Hearing needs: No Vision needs: No Meds Allergies Allergy/AdvReac Type Severity Reaction Status Date / Time ciprofloxacin (From Cipro) Allergy Severe HIVES/SWELLING, Verified 09/05/24 17:55 THROAT CLOSES shellfish derived (SHELLFISH Allergy Intermediate Vomiting Verified 09/05/24 17:55 DERIVED) NSAIDS (Non-Steroidal AdvReac Severe Avoid due Verified 09/05/24 17:55 Anti-Inflamma to kidney disease Active Medications: Current Medications Acetaminophen (Acetaminophen 325 Mg Tablet) 975 mg PO Q6H PRN PRN Reason: Pain, Mild 1-3,fever,headache Albuterol/Ipratropium (Albuterol/Iprat 2.5/0.5mg 3 Ml Ampul.Neb) 3 ml INHALE Q4H PRN PRN Reason: Shortness of Breath/Wheezing Calcium Carbonate (Calcium Carbonate 750 Mg Tab.Chew) 750 mg PO Q4H PRN PRN Reason: Heartburn Ceftriaxone Sodium (Ceftriaxone Sodium 2 Gm Vial) 2 gm IVPUSH Q24H [facility] Heparin Sodium (Porcine) (Heparin Sodium,Porcine 5,000 Unit/Ml Vial) 5,000 unit SUBCUT Q12H [facility] Magnesium Hydroxide (Milk Of Magnesia 30 Ml Oral.Susp) 30 ml PO DAILY PRN PRN Reason: Constipation Melatonin (Melatonin 3 Mg Tablet) 6 mg PO BEDTIME PRN PRN Reason: Insomnia Ondansetron HCl (Ondansetron Hcl 4 Mg/2 Ml Vial) 4 mg IVPUSH Q8H PRN PRN Reason: Nausea and Vomiting Sodium Chloride (0.9 % Sodium Chloride Flush 3 Ml Syringe) 3 ml IVFLUSH QSHIFT [facility] Home Medications ?Medication ?Instructions ?Recorded ?Confirmed ?Last Taken ?Type acetaminophen 325 mg tablet 650 mg PO Q6H PRN Pain 07/24/21 09/06/24 Unknown History methadone 10 mg/mL oral concentrate 70 mg PO DAILY 05/22/22 09/04/24 12/12/22 History hydroxyzine pamoate 100 mg capsule 100 mg PO BEDTIME PRN insomnia 12/13/22 09/06/24 09/04/24 History lorazepam 1 mg tablet 1 mg PO BID PRN Anxiety 05/25/23 09/06/24 Unknown History Physical Exam Vital Signs: Vital Signs: Last Vital Signs Temp 99.7 F 09/06/24 03:46 Pulse 99 09/06/24 03:46 Resp 20 09/06/24 03:46 BP 139/88 09/06/24 03:46 Pulse Ox 94 09/06/24 03:46 O2 Del Method BiPAP 09/06/24 03:46 O2 Flow Rate 1 09/05/24 23:45 FiO2 24 09/06/24 03:46 Oxygen Flow Rate 4 09/05/24 17:51 BMI result Body Mass Index 39.9 General:? Alert oriented x3 no acute respiratory distress.? She is significantly anxious.? Tachypneic. ?No accessory muscle usage.? Following all commands. Skin:? Morbidly obese.? Erythema of the right distal tibia with hotness to touch and tenderness measuring about 8 cm in length and wrapping around towards the calf without open sores.? Otherwise there is no asymmetry and comparison to the left leg and no edema.? The remainder of the skin appears intact. HEENT:? Head is normocephalic, atraumatic, pupils equal. Buccal mucosa is dry Neck is supple without lymphadenopathy. Cardiac:? Clear S1-S2, no murmurs, rubs, gallops. Pulmonary:? Diminished lung sounds bilaterally fine expiratory wheezing bilaterally anteriorly and posteriorly .? No crackles, rales or rhonchi. Abdomen:? Protuberant, positive bowel sounds in all 4 quadrants.? Soft, nontender, no rebound or guarding.? Musculoskeletal:? Moving all 4 extremities upon request a major joints, there is no crepitus or tenderness.? The strength is 5/5 bilaterally and throughout all 4 extremities. ?Right leg erythema and tenderness, hotness to touch as above described. ?There is no leg edema , no calf tenderness , no leg asymmetry.? Gait not assessed at this point. Neurologic:? As above.? No focal deficits noted. Vascular:? 2+ pulses upper and lower extremities distally.? Less than 2nd capillary refill of fingers and toes bilaterally upper and lower extremities Results Labs 09/06/24 05:04 09/06/24 05:04 Labs: Laboratory Results - last 24 hr 09/05/24 09/05/24 09/05/24 18:06 18:12 21:26 MCV 96.2 MCH 28.0 MCHC 29.1 L RDW 14.0 Plt Count 269 MPV 9.4 Immature Gran % (Auto) 1.0 H Neut % (Auto) 68.6 Lymph % (Auto) 13.4 L Waldo % (Auto) 16.5 H Eos % (Auto) 0.0 Baso % (Auto) 0.5 Lymph # (Auto) 1.5 Waldo # (Auto) 1.8 H Eos # (Auto) 0.0 Baso # (Auto) 0.1 Abs Immat Gran (auto) 0.11 H Absolute Neuts (auto) 7.6 Absolute Nucleated RBC 0.080 H Nucleated RBC % (auto) 0.7 H Smear Tech's Comments VERIFIED O2 Saturation ABG pH at Pt Temp ABG pCO2 at Pt Temp ABG pO2 at Pt Temp ABG HCO3 ABG Base Excess (Actual) VBG pH 7.26 L VBG pCO2 56 VBG pO2 79 VBG HCO3 25 VBG O2 Saturation 96.0 VBG Base Excess -1.5 Anion Gap 15 Estim Creat Clear Calc 15.0 Estimated GFR 11 Random Glucose 105 Lactic Acid 0.6 Calcium 8.5 D Total Bilirubin 0.2 AST 33 H ALT 22 Alkaline Phosphatase 98 Total Protein 6.7 Albumin 4.0 Urine Color Yellow Urine Appearance Cloudy Urine pH 6.0 Ur Specific [place] 1.010 Urine Protein 100 (2+) H Urine Glucose (UA) Negative Urine Ketones Negative Urine Blood Small (1+) H Urine Nitrite Negative Ur Leukocyte Esterase Moderate (2+) H Urine RBC 0-2 Urine WBC >50 H Ur Squamous Epith Cells 0-2 Urine Bacteria 4+ Hyaline Casts 0-2 Urine Opiates Screen POSITIVE H Ur Buprenorphine Scrn Not Detected Ur Oxycodone Screen Not Detected Urine Methadone Screen Positive H Urine Fentanyl Screen POSITIVE H Ur Barbiturates Screen Not Detected Ur Phencyclidine Scrn Not Detected Ur Amphetamines Screen Not Detected U Benzodiazepines Scrn Not Detected Urine Cocaine Screen POSITIVE H U Marijuana (THC) Screen Not Detected Ethyl Alcohol < 10 09/05/24 09/06/24 09/06/24 23:17 00:18 03:21 MCV MCH MCHC RDW Plt Count MPV Immature Gran % (Auto) Neut % (Auto) Lymph % (Auto) Waldo % (Auto) Eos % (Auto) Baso % (Auto) Lymph # (Auto) Waldo # (Auto) Eos # (Auto) Baso # (Auto) Abs Immat Gran (auto) Absolute Neuts (auto) Absolute Nucleated RBC Nucleated RBC % (auto) Smear Tech's Comments O2 Saturation 86.0 94.0 ABG pH at Pt Temp 7.20 L* 7.19 L* ABG pCO2 at Pt Temp 63 H* 64 H* ABG pO2 at Pt Temp 56 L 74 L ABG HCO3 25 25 ABG Base Excess (Actual) -2.9 -3.2 VBG pH 7.32 VBG pCO2 39 VBG pO2 218 VBG HCO3 21 L VBG O2 Saturation 99.0 VBG Base Excess -4.5 Anion Gap Estim Creat Clear Calc Estimated GFR Random Glucose Lactic Acid Calcium Total Bilirubin AST ALT Alkaline Phosphatase Total Protein Albumin Urine Color Urine Appearance Urine pH Ur Specific [place] Urine Protein Urine Glucose (UA) Urine Ketones Urine Blood Urine Nitrite Ur Leukocyte Esterase Urine RBC Urine WBC Ur Squamous Epith Cells Urine Bacteria Hyaline Casts Urine Opiates Screen Ur Buprenorphine Scrn Ur Oxycodone Screen Urine Methadone Screen Urine Fentanyl Screen Ur Barbiturates Screen Ur Phencyclidine Scrn Ur Amphetamines Screen U Benzodiazepines Scrn Urine Cocaine Screen U Marijuana (THC) Screen Ethyl Alcohol Assessment and Plan (1) Acute hypoxic on chronic hypercapnic respiratory failure: Status: Acute Plan ASSESSMENT : 1. Acute hypoxic /hypercarbic respiratory failure (multifactorial) 2. Acute COPD exacerbation 3. Acute opioid overdose 4. Acute metabolic encephalopathy improved post Narcan administration 5. Right lower extremity cellulitis 6. Urinary tract infection 7. Severe anxiety 8. Mild hypernatremia likely volume depleted 9. Chronic kidney disease stage 4 with baseline creatinine of 4.1-4.2 10. Anemia of chronic disease (stable) PLAN OF CARE: Patient will be admitted to the ICU, monitor vital signs, I's and O's, continue with BiPAP support.? Blood cultures pending, we will start her on Solu-Medrol IV load followed by every 6 hours, DuoNebs scheduled and albuterol PRN.? The patient will need to resume methadone once her doses confirmed, otherwise for work of breathing she may use small doses of Dilaudid.? Given her COPD and right lower extremity cellulitis we will place her on Rocephin which will also treat her urinary tract infection pending cultures.? Repeat laboratories this morning. ?The patient did receive 2 L of IV fluid in the emergency room, she is not septic, I do not think she needs anymore IV fluids as she is not hypotensive, tachycardic and there is no evidence of sepsis. GI PROPHYLAXIS:? IV PPI DVT PROPHYLAXIS:? Heparin every 8 hours This patient counter and care had a high probability of a clinically significant, sudden, or life threatening deterioration of this patient's condition which required my full and direct attention, intervention and personal management. Critical care time used for critical evaluation of this patient, diagnosis, treatment and coordination of care, review her records and documentation TOTAL CRITICAL CARE TIME? 90? MIN . discussion and coordination with consultants, completely separate from any procedures performed. Patient's care was discussed in detail with Dr. Nguyen who is aware of all the above as well as the plan of care for this patient.
--- OUTSIDE RECORDS SUMMARY | 2024-09-06 04:04 | XMS_ITS | Clinical Summary ---
Author Organization [facility] Address [address] [place] [address] Care Team Providers Care Receiver Name Role Phone Patient, Has No Pcp [...] age to complete this topic Insurance MEDICARE [facility] Care Teams Receiver Relationship Specialty Start Date End Date Patient, Has No Pcp Or Ref DO NOT EDIT THIS RECORD VIA PROVIDER ON THE FLY PCP - General Community Action Worker 06/10/21
--- OUTSIDE RECORDS SUMMARY | 2024-09-06 04:04 | XMS_ITS | Encounter Summary ---
Author Organization [facility] Address [address] [place] [address] Phone Care Team Providers Care Float Phlebotomist Name Role Phone Angel Castano MD Primary Care Provider [phone]- [phone] Encounter Details Date Type Department Care Team (Late st Contact Info) Description 05/04/2022 Telephone [facility] [address] [place] [address] Kitty Menezes [place] Social History [...] on filedocumented in this encounter Care Teams Float Phlebotomist Relationship Specialty Start Date End Date [facility] Cast[facility] [place] [id number] PCP - General 02/19/20 documented as of this encounter
--- OUTSIDE RECORDS SUMMARY | 2024-09-06 04:04 | XMS_ITS | Clinical Summary ---
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 HTN (hypertension) 01/31/2024 Chronic back pain 01/31/2024 Lung cancer, middle lobe (CMS/[facility] V24, [facility] V 28) 12/29/2023 Cancer Staging:Clinical:Stage IB(cT2a, cN0, cM0) - Signed by Lonnie Mercer MD on 12/29/2023 Anemia in chronic kidney disease 08/10/2022 Chronic kidney disease, stag e 4 (severe) (CMS/[facility] V24, CMS/[facility] V28) 08/10/2022 Hypertensive renal disease [...] Comments OTHER SURGICAL HISTORY - 1989 PROCEDURE: UT CAUTERY CERVIX CRYOCAUTERY INITIAL/REPEAT; COMMENT: for abnormal pap OTHER SURGICAL HISTORY PROCEDURE: UT LIG/TRNSXJ FLP TUBE ABDL/VAG APPR UNI/BI OTHER SURGICAL HISTORY 2012 PROCEDURE: UT EXPLORATORY LAPAROTOMY CELIOTOMY W/WO BIOPSY SPX; COMMENT: [...] Insurance MEDICAID - [place] MEDICARE Care Teams Grant Administrator Relationship Specialty Start Date End Date Valerie Castano MD [address] [place] [address] PCP - General 05/21/10
[2024-09-06 05:22] LABS: Hematocrit 30.4 % (37.0-47.0); Hemoglobin 8.6 g/dl (12.0-16.0); Imm Gran Abs Auto 0.16 X10*3/uL (0.00-0.03); Imm Gran Pct Auto 1.5 % (0.0-0.4); Lymphocytes Absolute Auto 1.3 X10*3/uL (1.2-4.9); MANUAL DIFF FLAG SCAN; Mean Corpuscular HGB Conc 28.3 g/dl (31.0-35.0); Mean Corpuscular Hemoglobin 27.8 pg (27.0-33.0); Mean Corpuscular Volume 98.4 fL (80.0-98.0); NRBC Abs Auto 0.060 X10*3/uL (0.0-0.012); NRBC Pct Auto 0.5 /100WBC (0.0-0.2); Platelet Count 257 X10*3/uL (160-400); Red Blood Count 3.09 X10*6/uL (4.20-5.50); SCAN SMEAR FLAG 1; White Blood Count 11.0 X10*3/uL (4.8-10.8)
[2024-09-06 05:36] LABS: Alanine Aminotransferase 16 U/L (0-31); Albumin Level 3.7 g/dL (3.5-5.0); Alkaline Phosphatase 87 U/L (39-117); Anion Gap 15 (12-20); Aspartate Amino Transferase 28 U/L (5-31); Blood Urea Nitrogen 35 mg/dL (9-16); Calcium 8.5 mg/dL (8.4-10.2); Carbon Dioxide 21 mmol/L (22-29); Chloride 116 mmol/L (96-108); Creatinine Clr Calc Pharmacy 16.2; Estimated Glomerular Filt Rate 12; Magnesium 1.5 mg/dL (1.6-2.6); Potassium 4.3 mmol/L (3.3-5.1); Sodium 148 mmol/L (135-145); Total Protein 6.2 g/dL (6.5-8.0)
[2024-09-06 05:41] LABS: Troponin-I High Sensitivity 31.3 ng/L (<3.5-17.0)
[2024-09-06] MEDS: Magnesium Sulfate/H2O 2 GM/50 ML PIGGYBACK IV (05:43)
--- NOTE | 2024-09-06 07:33 | HE.ICUCC ---
ICU Critical Care Nursing Note Admitted for acute hypercarbic resp failure ICU Day #:1 Neuro:A/Ox4 Cardiac: NSR on telemetry, +1 nonpitting edema lower extremities R>L Resp: LS dim , expiratory wheezing bilateral upper lobes. GI/:abdomen nontender/ round /obese Integumentary/Musculoskeletal:large bruise on buttocks/ erythem to right lower extremity Psychosocial (family etc.):lives at home with significant other. Central Lines:22 G peripheral IV left forearm
[2024-09-06] MEDS: 0.9 % Sodium Chloride Flush 3 ML SYRINGE IVFLUSH ×2 (08:32→15:58)
--- NOTE | 2024-09-06 09:52 | PHA.MEDREC ---
Addendum entered by Parviz Bernabe RPh 09/06/24 10:41: MED REC REVIEWED BY [facility] Original Note: Pharmacy Consult ? Medication Reconciliation Pharmacy has completed the medication reconciliation. Spoke to patients Primary contact Kodi to confirm med list. Kodi states patient is no longer taking Flonase nasal spray, Guaifenesin 600 mg, and Sodium zirconium 10 g. Kodi confirmed Azithromycin 250 mg 3XW however dose not know what days she takes on, Prednisone 5 mg QOD , however doesn't know when patient had last. Kodi was not sure if patient is still taking Cinacalcet 30 mg, left unconfirmed. Kodi confirmed Methadone 70 mg daily from [facility] [place]. Last dose was yesterday.
[2024-09-06 10:14] LABS: Venous Blood Gas Refer to POC result
[2024-09-06 10:14] LABS: VBG HCO3 24 mmol/L (22-26); VBG O2 % Saturation 100.0 %
--- NOTE | 2024-09-06 10:22 | MHC.CM.PN ---
IMM DELIVERED CM MET WITH PT AT BEDSIDE IN ICU. PT HAS BIPAP IN PLACE AND LETHARGIC. PT LIVES WITH S/O AND HAS WALKER. HOME 02 (UNSURE OF VENDOR) PT HAS TERMITE EXTERMINATOR HELPER HRS (UNSURE OF AGENCY) AND IS ACTIVE WITH ALLIED VNA. PT HAS METHADONE DOSING [facility] PCP DR. PEREZ. DP: TBD, PT MAY BENEFIT FROM A P.T. EVAL TO DETERMINE DC NEEDS. PT MAY NEED ASSIST WITH TRANSPORT. CM WILL CONTINUE TO RE-APPROACH
--- NOTE | 2024-09-06 10:51 | PC.RT ---
Pt noted to be calling for assistance, very anxious and agitated in bed on Bipap. Pt yelling to remove bipap at this time. Pt was placed on 2 lpm O2(home O2 value) via n/c. Currently sintia well. Bipap at bedside and will cont to monitor pt ventilatory status.
[2024-09-06] MEDS: Aspirin Enteric Coated 81 MG TABLET.DR PO (11:43)
--- NOTE | 2024-09-06 18:49 | PC.NURSE ---
Assumed care of patient at 0700: Neuro: Patient alert +Ox4, drowsy at times. Cardiac: SR with Occ ST on Tele, BP elevated, Labetalol given this evening as ordered.? Resp: LS Diminished TA, on 0.5L/min via NC, tolerating well, out of bed to chair most of the day. GI/: patient NPO this morning and switched to Regular Diet diet this afternoon, Witt removed at [id number] DTV [id number]. Integumentary/Musculoskeletal: large bruise to left buttock and thigh from previous fall at home. Report given to Med Tele nurse at 1800
[2024-09-07] VITALS (8 sets, daily range): BP systolic 140–199; BP diastolic 74–97; PULSE 92–106; RESP 16–18; TEMP 36.6–37.4; O2SAT 94–97; BMI 37.1
[2024-09-07] MEDS: Albuterol Sulfate (0.083%) 2.5 MG/3 ML VIAL.NEB INHALE ×3 (01:04→11:44)
[2024-09-07 05:31] LABS: MANUAL DIFF FLAG NO
[2024-09-07 05:39] LABS: Venous Blood Gas Refer to POC result
[2024-09-07 05:40] LABS: VBG HCO3 24 mmol/L (22-26); VBG O2 % Saturation 100.0 %
[2024-09-07] MEDS: 0.9 % Sodium Chloride Flush 3 ML SYRINGE IVFLUSH (05:43)
[2024-09-07 05:47] LABS: Hematocrit 28.8 % (37.0-47.0); Hemoglobin 8.7 g/dl (12.0-16.0); Imm Gran Abs Auto 0.15 X10*3/uL (0.00-0.03); Imm Gran Pct Auto 1.0 % (0.0-0.4); Lymphocytes Absolute Auto 0.6 X10*3/uL (1.2-4.9); Mean Corpuscular HGB Conc 30.2 g/dl (31.0-35.0); Mean Corpuscular Hemoglobin 27.7 pg (27.0-33.0); Mean Corpuscular Volume 91.7 fL (80.0-98.0); NRBC Abs Auto 0.180 X10*3/uL (0.0-0.012); Platelet Count 298 X10*3/uL (160-400); Red Blood Count 3.14 X10*6/uL (4.20-5.50); White Blood Count 15.1 X10*3/uL (4.8-10.8)
[2024-09-07 05:48] LABS: Alanine Aminotransferase 15 U/L (0-31); Albumin Level 3.7 g/dL (3.5-5.0); Alkaline Phosphatase 94 U/L (39-117); Anion Gap 14 (12-20); Aspartate Amino Transferase 23 U/L (5-31); Blood Urea Nitrogen 44 mg/dL (9-16); Calcium 9.1 mg/dL (8.4-10.2); Carbon Dioxide 23 mmol/L (22-29); Chloride 111 mmol/L (96-108); Creatinine Clr Calc Pharmacy 16.2; Estimated Glomerular Filt Rate 12; Magnesium 2.1 mg/dL (1.6-2.6); NRBC Pct Auto 1.2 /100WBC (0.0-0.2); Potassium 4.2 mmol/L (3.3-5.1); Sodium 144 mmol/L (135-145); Total Protein 6.4 g/dL (6.5-8.0)
[2024-09-07] MEDS: Fluticasone/Vilanterol 100/25 BLST.W.DEV 1 PUFF INHALE (07:57)
[2024-09-07] MEDS: Aspirin Enteric Coated 81 MG TABLET.DR PO (08:04)
--- NOTE | 2024-09-07 09:49 | PM.DS ---
DS: Providers Provider Date of Service: 09/07/24 Date of admission: 09/06/24 04:02 Date of discharge: 09/07/24 Primary care physician: Valerie Castano MD DS: Diagnosis Discharge Diagnosis (1) Acute hypoxic on chronic hypercapnic respiratory failure: Status: Acute DS: Summary Hospital Course Hospital Course: from initial hpi: 64-year-old morbidly obese female with underlying history of chronic hypoxic respiratory failure who uses oxygen at home, history of lung cancer, hyperlipidemia, chronic kidney disease stage 4, COPD, polysubstance abuse who is supposed to be on methadone, hypertension, cardiac arrest in 2016, seizures, anxiety, depression, anemia of chronic disease, obstructive sleep apnea not compliant with CPAP among other things.? The patient had presented to emergency room with reported altered mental status, episodes of sleepiness and recurrent syncope for about 1 week.? Reportedly patient was falling asleep while standing and sustained a mechanical fall at home causing her to injure her left hip, however this did not affect her ability to ambulate.? Upon arrival to the emergency room she had reported to abuse cocaine and opioids although she had been somewhat obtunded but arousable with painful stimuli.? Her pupils were pinpoint it.? Her workup showed a white count of 11.0, H and H of 8.2 and 28.2 respectively.? Sodium 146, potassium 4.7, chloride 112, carbon dioxide 24, BUN 36, creatinine 4.1 (baseline), lactic acid 0.4.? Her urinalysis is positive for fentanyl, cocaine.? Her obtundation improved after Narcan administration, additionally her urine appears to be consistent with urinary tract infection for which she was given Rocephin.? Venous blood gas and and ABG were obtained due to concerns of possible CO2 retention and this shows acute respiratory acidosis with ABG pH of 7.2, pCO2 of 63, bicarb of 25.? The patient kept a mass for about 2 hours and when she woke up she had taken it often refused to use it again.? The concern is that the patient will decompensate without CPAP therefore ICU evaluation was requested. During my encounter, the patient is quite anxious, tachypneic but comes down with reassurance, she does not appear to be in any respiratory distress, continues to complain of diffuse body aches is asking for pain medications, refuses BiPAP.? Repeat ABG shows pH of 7.19, pCO2 of 64, PO2 74.? After a long discussion with the patient, she accepted to use BiPAP again, Dilaudid small dose was given for work of breathing along with albuterol.? The patient will be transferred to the ICU for further care.? Code status was addressed with the patient in case of decompensation and she is full code hospital course: Patient was admitted to the intensive care unit for acute on chronic hypoxic and hypercapnic respiratory failure and acute toxic metabolic encephalopathy due to polysubstance dependence with opiate overdose as well as hypercapnia. She was given BiPAP and Narcan with significant improvement and downgraded next day to medical floor. Was also treated for COPD with acute decompensation with steroids. Hypernatremia improved with IV fluids Noted to have urinary tract infection treated with ceftriaxone. Patient improved faster than expected. Next day patient requested to go home. Ideally she would have been managed inpatient for another day at least awaiting cultures and better respiratory status, however, patient decided to continue treatment at home. She will be discharged on 5 more days of prednisone and cefuroxime. Antibiotics should be adjusted based on urine culture results. She was not interested in physical therapy or rehab. For CKD 4 remained stable. For morbid obesity weight loss recommended. Time Attestation Discharge Coordination Time (in mins): 35 Quality: Safe Use of Opioids Does Pt have an Active Cancer Diagnosis on the Problem List?: No Quality: Stroke Does the patient have a stroke diagnosis?: No Physical Exam Exam: Exam: General: AO X 3, no acute distress Resp: diminished bilateral, mild accessory muscles used CVS: S1,S2,RRR GI: soft, non tender, non distended Neuro: motor grossly intact, alert Psych: appropriate affect, appropriate insight Vital Signs: Vital Signs: Last Vital Signs Temp 98.3 F 09/07/24 07:51 Pulse 96 09/07/24 08:03 Resp 18 09/07/24 08:03 BP 171/86 H 09/07/24 07:51 Pulse Ox 97 09/07/24 07:51 O2 Del Method Nasal Cannula 09/07/24 07:51 O2 Flow Rate 2 09/07/24 07:51 FiO2 25 09/06/24 18:00 Oxygen Flow Rate 4 09/05/24 17:51 BMI result Body Mass Index 37.1 DS: Data Data Completed and Pending Completed studies during hospitalization [Text1]: Procedures Assistance with Respiratory Ventilation, Less than 24 Consecutive Hours, Continuous Positive Airway Pressure (12/12/22) Bypass Trachea to Cutaneous with Tracheostomy Device, Percutaneous Approach (03/18/21) Insertion of Endotracheal Airway into Trachea, Via Natural or Artificial Opening (12/12/22) Insertion of Feeding Device into Stomach, Percutaneous Approach (03/18/21) Insertion of Infusion Device into Right Basilic Vein, Percutaneous Approach (07/23/21) Insertion of Infusion Device into Right Internal Jugular Vein, Percutaneous Approach (03/18/21) Insertion of Infusion Device into Superior Vena Cava, Percutaneous Approach (03/18/21) Insertion of Monitoring Device into Upper Artery, Percutaneous Approach (03/18/21) Inspection of Upper Intestinal Tract, Via Natural or Artificial Opening Endoscopic (03/18/21) Introduction of Baricitinib into Mouth and Pharynx, External Approach, [employer] 6 (03/18/21) Introduction of Vasopressor into Central Vein, Percutaneous Approach (03/18/21) Introduction of Vasopressor into Peripheral Vein, Percutaneous Approach (12/12/22) Monitoring of Arterial Pressure, Peripheral, Percutaneous Approach (03/18/21) Monitoring of Arterial Pulse, Peripheral, Percutaneous Approach (03/18/21) Performance of Urinary Filtration, Intermittent, Less than 6 Hours Per Day (03/18/21) Respiratory Ventilation, 24-96 Consecutive Hours (03/18/21) Respiratory Ventilation, Greater than 96 Consecutive Hours (03/18/21) Respiratory Ventilation, Less than 24 Consecutive Hours (12/12/22) Transfusion of Nonautologous Red Blood Cells into Peripheral Vein, Percutaneous Approach (03/18/21) Labs on day of discharge: Laboratory Results - last 24 hr 09/06/24 09/07/24 09/07/24 10:07 05:21 05:36 WBC 15.1 H RBC 3.14 L Hgb 8.7 L Hct 28.8 L MCV 91.7 D MCH 27.7 MCHC 30.2 L RDW 13.9 Plt Count 298 MPV 9.5 Immature Gran % (Auto) 1.0 H Neut % (Auto) 90.0 H Lymph % (Auto) 3.9 L Gentry % (Auto) 5.0 Eos % (Auto) 0.0 Baso % (Auto) 0.1 Lymph # (Auto) 0.6 L Gentry # (Auto) 0.8 Eos # (Auto) 0.0 Baso # (Auto) 0.0 Abs Immat Gran (auto) 0.15 H Absolute Neuts (auto) 13.6 H Absolute Nucleated RBC 0.180 H Nucleated RBC % (auto) 1.2 H VBG pH 7.27 L 7.35 VBG pCO2 50 44 VBG pO2 178 143 VBG HCO3 24 24 VBG O2 Saturation 100.0 100.0 VBG Base Excess -2.9 -0.8 Sodium 144 Potassium 4.2 Chloride 111 H Carbon Dioxide 23 Anion Gap 14 BUN 44 H Creatinine 3.76 H Estim Creat Clear Calc 16.2 Estimated GFR 12 Random Glucose 176 H Calcium 9.1 D Phosphorus 3.3 Magnesium 2.1 Total Bilirubin 0.1 AST 23 ALT 15 Alkaline Phosphatase 94 Total Protein 6.4 L Albumin 3.7 Preliminary micro results at discharge 09/05/24 18:28 Blood Culture - Preliminary Blood - Venous No growth after 24 hours. 09/05/24 18:06 Blood Culture - Preliminary Blood - Venous No growth after 24 hours. Discharge Plan Discharge Anticipated Discharge Date/Time: 09/07/24 09:46 Patient Disposition: Home, Self-Care Discharge Diagnosis: copd Referrals: [facility] [Outside] - 1 Week Valerie Castano MD [Primary Care Provider, Internal Medicine] - 1 Week Discharge Medications: New prednisone 20 mg tablet 40 mg PO DAILY Qty: 10 0RF cefuroxime axetil 250 mg tablet 250 mg PO Q12H Qty: 10 0RF Continued aspirin 81 mg tablet,delayed release (DR/EC) 81 mg PO DAILY Qty: 30 0RF atorvastatin 10 mg tablet 10 mg PO BEDTIME Qty: 90 0RF gabapentin 100 mg capsule 100 mg PO DAILY PRN (Reason: for pain) Qty: 30 0RF ipratropium-albuterol 0.5 mg-3 mg(2.5 mg base)/3 mL solution for nebulization 3 ml inhalation Q4-6H PRN (Reason: shortness of breath or wheezing) Qty: 180 11RF fluticasone furoate-vilanterol [Breo Ellipta] 100-25 mcg/dose blister with device 1 ea PO DAILY 90 Days Qty: 3 3RF torsemide 20 mg tablet 20 mg PO BID Qty: 180 0RF carvedilol 3.125 mg tablet 3.125 mg PO BID Qty: 180 1RF acetaminophen 325 mg Tablet 650 mg PO Q6H PRN (Reason: Pain) hydroxyzine pamoate 100 mg capsule 100 mg PO BEDTIME PRN (Reason: insomnia) methadone 10 mg/mL concentrate 70 mg PO DAILY Patient Comments: [facility] lorazepam 1 mg tablet 1 mg PO BID PRN (Reason: Anxiety) cinacalcet 30 mg tablet 30 mg PO DAILY Qty: 30 2RF prednisone 5 mg tablet 5 mg PO Q OTHER DAY 90 Days Qty: 45 3RF azithromycin 250 mg tablet 250 mg PO 3XW 90 Days Qty: 39 3RF Discharge Orders: Discharge Order (Routine); Ordered 09/07/24 Ordered By: Mp Gould Diet: Advance to usual diet Activity on Discharge: As tolerated Stand Alone Forms: Patient Portal Discharge page Print Language: Tamazight Care Plan Goals: recovery Health Concerns: copd Plan of Treatment: 5 days prednisone and ceftin follow up cultures avoid smoking, drugs Assessment: see above
--- NOTE | 2024-09-07 09:52 | MHC.CM.PN ---
Patient has been medically cleared for dc to home today and to resume services. Patient is active with [facility], who has been notified of today's dc. Last IMM was addressed yesterday.
--- NOTE | 2024-09-07 11:32 | PC.NURSE ---
Informed MD of pt's unsteady gait. pt refused to go to rehab. informed MD of pt's elevated BP. PRN meds administered as ordered
== END 2024-09-07 15:16 | disposition home health service (06) | DRG 917 ==
LOC: HO.ED 09-06 02:10 → HO.EDOVER 09-06 02:50 → HO.ICU 09-06 04:45 → HO.S3 09-06 16:31 → HO.IMC 09-06 16:41
PROVIDERS: Internal Medicine; Physician Assistant; Admitting Provider Physician Assistant Medical; Emergency Provider Emergency Medicine; PCP Internal Medicine; Visit Provider Internal Medicine
DX: T40.2X1A Poisoning by other opioids, accidental (unintentional), initial encounter (principal); G92.8 Other toxic encephalopathy; J96.21 Acute and chronic respiratory failure with hypoxia; J96.22 Acute and chronic respiratory failure with hypercapnia; N18.4 Chronic kidney disease, stage 4 (severe); F11.20 Opioid dependence, uncomplicated; N39.0 Urinary tract infection, site not specified; E87.0 Hyperosmolality and hypernatremia; F19.20 Other psychoactive substance dependence, uncomplicated; G47.33 Obstructive sleep apnea (adult) (pediatric); F14.10 Cocaine abuse, uncomplicated; F41.9 Anxiety disorder, unspecified; E66.01 Morbid (severe) obesity due to excess calories; Z68.37 Body mass index [BMI] 37.0-37.9, adult; Z71.3 Dietary counseling and surveillance; D63.1 Anemia in chronic kidney disease; Z99.81 Dependence on supplemental oxygen; Z85.118 Personal history of other malignant neoplasm of bronchus and lung; Z87.891 Personal history of nicotine dependence; Z79.82 Long term (current) use of aspirin; Z79.52 Long term (current) use of systemic steroids; Z79.899 Other long term (current) drug therapy
CPT/HCPCS: 36415; 70450; 71045; 72170; 80053; 80307; 81001; 82803; 83605; 83735; 84100; 84484; 85025; 87040; 87086; 87088; 87186; 93005; 94640; 99285; J0696; J1171; J1644; J1920; J2312; J2470; J2919; J3475

== ENCOUNTER → 2024-09-05 18:04 | Outpatient (BNV) | payer MEDICARE, SELFPAY | PROVIDERS: Admitting Provider Physician Assistant Medical; Emergency Provider Emergency Medicine; Visit Provider Internal Medicine Cardiovascular Disease | DX: J44.9 Chronic obstructive pulmonary disease, unspecified (principal) | CPT/HCPCS: 93010 ==

== ENCOUNTER → 2024-09-05 18:55 | Outpatient (BNV) | payer MEDICARE, SELFPAY | PROVIDERS: Emergency Provider Internal Medicine; Visit Provider Radiology Diagnostic Radiology | DX: R41.82 Altered mental status, unspecified (principal) | CPT/HCPCS: 70450 ==

== ENCOUNTER → 2024-09-06 01:59 | Outpatient (BNV) | payer MEDICARE, SELFPAY | PROVIDERS: Admitting Provider Physician Assistant Medical; Emergency Provider Emergency Medicine; Visit Provider Radiology Diagnostic Radiology | DX: R10.2 Pelvic and perineal pain (principal) | CPT/HCPCS: 72170 ==

== ENCOUNTER → 2024-09-06 04:02 | Outpatient (BNV) | payer MEDICARE, SELFPAY | PROVIDERS: Admitting Provider Physician Assistant Medical; Emergency Provider Emergency Medicine; PCP Internal Medicine; Visit Provider Internal Medicine | DX: J96.01 Acute respiratory failure with hypoxia (principal); J96.12 Chronic respiratory failure with hypercapnia | CPT/HCPCS: 99239 ==

== ENCOUNTER → 2024-09-06 04:02 | Outpatient (BNV) | payer MEDICARE, SELFPAY | PROVIDERS: Admitting Provider Physician Assistant Medical; Emergency Provider Emergency Medicine; PCP Internal Medicine; Visit Provider Physician Assistant Medical | DX: J96.01 Acute respiratory failure with hypoxia (principal); J96.12 Chronic respiratory failure with hypercapnia | CPT/HCPCS: 99291 ==

== ENCOUNTER 2024-09-14 14:52 | Outpatient (AMB) | payer MEDICARE, SELFPAY ==
--- NOTE | 2024-09-14 14:40 | A.OFFPC_ITS ---
Vital Signs 09/14/24 14:57 Height 5 ft 1 in Weight 203 lb BMI 38.4 BP 134/74 Blood Pressure Location Lt brachial Position Sitting Respiration 20 Pulse 91 Pulse Source Pulse Oximeter Temp 97.7 F Temp Source Oral Pulse Oximetry (%) 96 Oxygen Delivery Method Room Air Intake Visit Reasons: TCM Intake Note: Pt is here today for TCM. Allergies ciprofloxacin (From Cipro) Allergy (Severe, Verified 09/14/24 14:59) HIVES/SWELLING, THROAT CLOSES shellfish derived (SHELLFISH DERIVED) Allergy (Intermediate, Verified 09/14/24 14:59) Vomiting NSAIDS (Non-Steroidal Anti-Inflamma Adverse Reaction (Severe, Verified 09/14/24 14:59) Avoid due to kidney disease Tobacco use date assessed: 09/14/24 Dental Screening Dental Screen Date: 09/14/24 Did you have a dental visit in the last 12 months?: No Did you have a dental problem in the last 6 months where you did not have access to dental care?: No Was dental information given to patient?: Patient declined HPI TCM TCM Information Date of Discharge 09/07/24 Discharged From [facility] Interactive Contact Date (Reference documentation from this date) 09/11/24 HPI Comments History of Present Illness Details Patient is a 64-year-old female with a past medical history of polysubstance use disorder noncompliant with methadone, CKD stage IV, anemia secondary to CKD, secondary hyperparathyroidism, HLD, morbid obesity, COPD now on 0.5L O2 at home, and HTN who presented to the [facility] emergency department on September 06 with AMS. PE revealed pupils were pinpoint. Labs revealed WBC 11, H&H 8.2/28.2, Na 146, K 4.7, Cl 112, carbon dioxide 24, BUN 36, Cr 4.1 which is her baseline and lactic acid 0.4. Her UA was positive for fentanyl and cocaine and she was positive for infection. She was given Narcan and Rocephin. They then did a ABG which was 7.2//25, she was placed on CPAP, her ABG got worse. She was then admitted to the ICU for acute toxic metabolic encephalopathy secondary to polysubstance use as well as hypercapnia and placed on BiPAP. She recovered fairly quickly, Na normalized with fluids and she requested to go home the next day. She was discharged on 09/07 with RX for 5 days of prednisone for COPD exacerbation and cefuroxime for the UTI. She declined physical therapy or rehab. They recommended weight loss for her morbid obesity and she was told to avoid drugs and smoking. The hospitalist also dropped her home O2 from 2L to 0.5L upon discharge. Since discharge, she hasn't fallen, hasn't been sleepy during the day, she wears the 0.5L O2 24hrs a day. Her oxygen sats when they check them at home are 91- 94%. She sees Dr Cochran for pulmonology. She finished the prednisone and continues to take her baseline 5mg every other day. Hasn't had to use her nebulizer. She denies any symptoms of UTI. She went to her [employer] last week, she was given Retacrit 17821 U and will continue it q weekly with Dr Reinoso. He is monitoring her CBC and she believes she is having it checked on Wednesday at her next appointment. Overall, she is feeling much better, she denies shortness of breath beyond her baseline, fatigue, chest pain. She is on the methadone and occasionally uses fentanyl, has narcan at home, family is here with her, they both know how and when to use it. She is also complaining of allergy symptoms and is asking for a RX for allergy meds. She does have hydroxyzine but she tells me she only takes it occasional ly. [facility] Medical History Respiratory failure with hypoxia Dyslipidemia History of lung cancer Hx of bronchitis CKD (chronic kidney disease) stage 4, GFR 15-29 ml/min Morbid obesity COPD (chronic obstructive pulmonary disease) Polysubstance abuse Respiratory failure with hypoxia and hypercapnia Ambulates with cane Seasonal allergies Herpes zoster Osteopenia (~2017) Respiratory failure COVID-19 (~03/2021) Osteoarthritis of ankles, bilateral Olecranon bursitis of left elbow Tubulovillous adenoma of large intestine (~2020) Hx of cardiac arrest (~2015) O2 dependent Methadone maintenance therapy patient History of claustrophobia History of seizure Anxiety and depression HTN (hypertension) Multiple fractures of ribs Anemia in chronic kidney disease Vitamin D deficiency Family history of colon cancer Restrictive lung disease LEO (obstructive sleep apnea) Surgical History Hx of tracheostomy History of esophagogastroduodenoscopy (EGD) (~2021) History of removal of ureteral stent (~2013) History of lung biopsy (~2019) History of colonoscopy (~2020) Umbilical hernia History of laparoscopy (~2012) History of hand surgery History of tubal ligation Family History Father Diabetes mellitus Mother Depression Mental health disorder Maternal Grandfather Colon cancer Sister No problems noted. Son No problems noted. Daughter No problems noted. Daughter No problems noted. Social History Household Members: Significant Other Housing: Unknown / Unable to assess Housing Other:: mobile home Are you a primary care program director to a significant other at home: No Do you presently have visiting nurse or other home services: Yes Unable to assess alcohol history related to: Unable to respond Alcohol intake: never Comment: restraints Patient Tobacco Use Status: Former Tobacco user Tobacco use type: Cigarette Years Smoked: 25 yrs e-Cigarette/Vaping Use: Former Use Second Hand Smoke Exposure: No Substance Use Type: Heroin Advance Directives Date on File: 03/21/21 service: No Current occupational status: unemployed and disabled Cognitive needs: No Hearing needs: No Vision needs: No Questionnaire PHQ-9 Over the last 2 weeks, how often have you been bothered by any of the following problems? 1. Little interest or pleasure in doing things: not at all 2. Feeling down, depressed, or hopeless: not at all 3. Trouble falling or staying asleep, or sleeping too much: several days 4. Feeling tired or having little energy: several days 5. Poor appetite or overeating: not at all 6. Feeling bad about yourself - or that you are a failure or have let yourself or your family down: not at all 7. Trouble concentrating on things, such as reading the newspaper or watching television: not at all 8. Moving or speaking so slowly that other people could have noticed. Or the opposite - being so fidgety or restless that you have been moving around a lot more than usual: not at all 9. Thoughts that you would be better off or of hurting yourself in some way: not at all Total score: 2 Depression Screening Interpretation: Negative (Seesofi Tom at [facility]) Depression Screening Done: Yes 71364 - PHQ-9 Billing: Yes Source: Developed by Drs. Marco Ramirez, Elisa Kennedy, Warren Galvan and colleagues, with an educational cheo from [employer]. Thrive Questionnaire Date Thrive assessed: 09/14/24 AUDIT C Alcohol Use Questionnaire (AUDIT-C) 1. How often do you have a drink containing alcohol?: Never 3. How often do you have six or more drinks on one occasion?: Never Total Score: 0 TONIE-7 AMB Questionnaire TONIE-7 Date TONIE - 7 assessed: 09/14/24 Feeling nervous, anxious, or on edge: 0 = Not at all Not being able to stop or control worryin = Not at all Worrying too much about different things: 0 = Not at all Trouble relaxin = Not at all Being so restless that it is hard to sit still: 0 = Not at all Becoming easily annoyed or irritable: 0 = Not at all Feeling afraid as if something awful might happen: 0 = Not at all Total TONIE-7 score (0-4 normal; 5-9 mild; 10-14 moderate; 15-21 severe): 0 Source: Developed by Drs. Marco Ramirez, Elisa Kennedy, Warren Galvan and colleagues, with an educational cheo from [employer]. TONIE-7 Assessment Billing TONIE-7 Assessment Tool: TONIE-7 Assessment 51095 Review of Systems Const All systems reviewed & are unremarkable except as noted in HPI and below Physical exam (Primary Care) Vital Signs: Last Vital Signs Temp 97.7 F 09/14/24 14:57 Pulse 91 09/14/24 14:57 Resp 20 09/14/24 14:57 BP 134/74 09/14/24 14:57 Pulse Ox 96 09/14/24 14:57 Oxygen Delivery Method Room Air 09/14/24 14:57 BMI result Body Mass Index 38.4 Tobacco/Smoking Status: Tobacco use Status Tobacco use date assessed 09/14/24 09/14/24 15:04 Patient Tobacco Use Status Former Tobacco user 09/14/24 14:41 Tobacco use type Cigarette 09/14/24 14:41 e-Cigarette/Vaping Use Former Use 09/14/24 14:41 PHQ-9: PHQ-9 Score PHQ-9: Total score 2 09/14/24 15:06 Depression Screening Interpretation: Negative (Delphine Tom at [facility]) Thrive Assessment: Date of Thrive Assessment Date Thrive assessed 09/14/24 09/14/24 15:06 Const General: cooperative, healthy appearing, comfortable, no acute distress and well developed Orientation/consciousness: patient oriented x3 Limitations: no limitations HENMT Head: Yes normal to inspection Ears: hearing grossly normal bilaterally General nose exam: Normal external nose present Face and sinus: Yes normal facial exam Eyes General: appearance normal, both eyes and all related structures Neck Neck: Yes normal visual inspection and Yes full ROM Resp Effort & Inspection: normal respiratory effort and able to speak in complete sentences Auscultation: clear to auscultation bilaterally (but dim) Cardio Rate: regular rate Rhythm: regular rhythm Skin General skin exam: no rashes or lesions noted Neuro General: patient oriented x3 Extrem General: Yes normal to inspection Coding Level of Care Code TCM High MDM <= 7 Days Diagnoses Hospital discharge follow-up Z09 Polysubstance abuse F19.10 Additional Codes TONIE-7 Assessment Billing - TONIE-7 Assessment Tool: TONIE-7 Assessment 95445 ([id number]) PHQ-9 - 93406 - PHQ-9 Billing: Yes ([id number]) Assessment & Plan Assessment & Plan (1) Hospital discharge follow-up: Code(s): Z09 - Encounter for follow-up examination after completed treatment for conditions other than malignant neoplasm Category: Medical Plan: - please continue to use your oxygen and nebulizers as needed and follow up with your personnel and payroll technician, as scheduled - please continue to see your quality technician next week so they can continue Retacrit and follow your labs, as scheduled (2) Polysubstance abuse: Code(s): F19.10 - Other psychoactive substance abuse, uncomplicated Category: Medical Plan: - Please continue to go to the methadone clinic daily - please try to abstain from street drug use - let us know if you need a refill on her Narcan Medications: New levocetirizine 5 mg PO DAILY PRN 30 tabs 0RF allergy symptoms
--- OUTSIDE RECORDS SUMMARY | 2024-09-14 14:55 | XMS_ITS | Clinical Summary ---
Author Organization [facility] Address [address] [place] [address] Care Team Providers Care Rail Splitter Name Role Phone Patient, Has No Pcp [...] age to complete this topic Insurance MEDICARE [facility] Care Teams Rail Splitter Relationship Specialty Start Date End Date Patient, Has No Pcp Or Ref DO NOT EDIT THIS RECORD VIA PROVIDER ON THE FLY PCP - General Concrete Craftsman 06/10/21
--- OUTSIDE RECORDS SUMMARY | 2024-09-14 14:55 | XMS_ITS | Clinical Summary ---
Author Organization 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 HTN (hypertension) 01/31/2024 Chronic back pain 01/31/2024 Lung cancer, middle lobe ([facility] V24, [facility] V 28) 12/29/2023 Cancer Staging:Clinical:Stage IB(cT2a, cN0, cM0) - Signed by Lonnie Mercer MD on 12/29/2023 Anemia in chronic kidney disease 08/10/2022 Chronic kidney disease, stag e 4 (severe) ([facility] V24, [facility] V28) 08/10/2022 Hypertensive renal disease 06/20/2020 Degenerative [...] Comments OTHER SURGICAL HISTORY - 1989 PROCEDURE: MO CAUTERY CERVIX CRYOCAUTERY INITIAL/REPEAT; COMMENT: for abnormal pap OTHER SURGICAL HISTORY PROCEDURE: MO LIG/TRNSXJ FLP TUBE ABDL/VAG APPR UNI/BI OTHER SURGICAL HISTORY 2012 PROCEDURE: MO EXPLORATORY LAPAROTOMY CELIOTOMY W/WO BIOPSY SPX; COMMENT: [...] Insurance MEDICAID - [place] MEDICARE Care Teams Manager Helpdesk Relationship Specialty Start Date End Date Valerie Castano MD [address] [place] [address] PCP - General 05/21/10
--- OUTSIDE RECORDS SUMMARY | 2024-09-14 14:55 | XMS_ITS | Encounter Summary ---
Author Organization [facility] Address [address] [place] [address] Phone Care Team Providers Care Farm Tractor Operator Name Role Phone Angel Castano MD Primary Care Provider [phone] Encounter Details Date Type Department Care Team (Late st Contact Info) Description 05/04/2022 Telephone [facility] [address] [place] [address] Kitty Menezes [place] Social History [...] on filedocumented in this encounter Care Teams Farm Tractor Operator Relationship Specialty Start Date End Date Angel Castano MD [facility] [place] [id number] PCP - General 02/19/20 documented as of this encounter
[2024-09-14 14:57] VITALS: BP 134/74; PULSE 91; RESP 20; TEMP 36.5; O2SAT 96; BMI 38.4
== END 2024-09-14 15:34 | disposition home or self-care (01) ==
PROVIDERS: PCP Internal Medicine; Visit Provider Physician Assistant
DX: F19.10 Other psychoactive substance abuse, uncomplicated (principal)

== ENCOUNTER → 2024-09-14 14:52 | Outpatient (BNVA) | payer MEDICARE, SELFPAY | PROVIDERS: PCP Internal Medicine; Visit Provider Physician Assistant | DX: Z09 Encounter for follow-up examination after completed treatment for conditions other than malignant neoplasm (principal); F19.10 Other psychoactive substance abuse, uncomplicated | CPT/HCPCS: 96127; 99495 ==

== ENCOUNTER 2024-09-21 12:48 | Outpatient (REF) | payer MEDICARE, SELFPAY ==
--- OUTSIDE RECORDS SUMMARY | 2024-09-21 13:33 | XMS_ITS | Clinical Summary ---
Author Organization [facility] Address [address] [place] [address] Care Team Providers Care Maintenance Mechanic Technician Name Role Phone Patient, Has No Pcp [...] age to complete this topic Insurance MEDICARE [facility] Care Teams Maintenance Mechanic Technician Relationship Specialty Start Date End Date Patient, Has No Pcp Or Ref DO NOT EDIT THIS RECORD VIA PROVIDER ON THE FLY PCP - General Residential Carpet Installer 06/10/21
--- OUTSIDE RECORDS SUMMARY | 2024-09-21 13:33 | XMS_ITS | Clinical Summary ---
Author Organization [facility] Address [address] [place] [address] Phone Care Team Providers Care Muck Farmer Name Role Phone Valerie Castano MD Primary Care Provider [phone] Allergies Active Allergy Reactions Criticality Noted Date [...] 01/31/2024 Chronic obstructive pulmonar y disease (COPD) ([facility] V24, [facility] V28) 01/31/2024 Congenital anomaly of diaphragm 01/31/2024 HTN (hypertension) 01/31/2024 Chronic back pain 01/31/2024 Lung cancer, middle lobe ([facility] V24, [facility] V 28) 12/29/2023 Cancer Staging:Clinical:Stage IB(cT2a, cN0, cM0) - Signed by Lonnie Mercer MD on 12/29/2023 Anemia in chronic kidney disease 08/10/2022 Chronic kidney disease, stag e 4 (severe) ([facility] V24, [facility] V28) 08/10/2022 Hypertensive renal disease 06/20/2020 Degenerative [...] Comments OTHER SURGICAL HISTORY - 1989 PROCEDURE: CT CAUTERY CERVIX CRYOCAUTERY INITIAL/REPEAT; COMMENT: for abnormal pap OTHER SURGICAL HISTORY PROCEDURE: CT LIG/TRNSXJ FLP TUBE ABDL/VAG APPR UNI/BI OTHER SURGICAL HISTORY 2012 PROCEDURE: CT EXPLORATORY LAPAROTOMY CELIOTOMY W/WO BIOPSY SPX; COMMENT: [...] Insurance [place] - [place] MEDICARE Care Teams Muck Farmer Relationship Specialty Start Date End Date Valerie Castano MD [address] [place] [address] PCP - General 05/21/10
--- OUTSIDE RECORDS SUMMARY | 2024-09-21 13:33 | XMS_ITS | Encounter Summary ---
Author Organization [facility] Address [address] [place] [address] Phone Care Team Providers Care Rivet Tapping Machine Operator Name Role Phone Angel Castano MD Primary Care Provider [phone] Encounter Details Date Type Department Care Team (Late st Contact Info) Description 05/04/2022 Telephone [facility] [address] [place] [address] Kitty Menezes [place] Social History [...] on filedocumented in this encounter Care Teams Rivet Tapping Machine Operator Relationship Specialty Start Date End Date Angel Castano MD [facility] [id number] PCP - General 02/19/20 documented as of this encounter
[2024-09-21 16:46] LABS: Hematocrit 31.6 % (37.0-47.0); Hemoglobin 8.9 g/dl (12.0-16.0); Mean Corpuscular HGB Conc 28.2 g/dl (31.0-35.0); Mean Corpuscular Hemoglobin 27.4 pg (27.0-33.0); Mean Corpuscular Volume 97.2 fL (80.0-98.0); NRBC Abs Auto 0.000 X10*3/uL (0.0-0.012); NRBC Pct Auto 0.0 /100WBC (0.0-0.2); Platelet Count 258 X10*3/uL (160-400); Red Blood Count 3.25 X10*6/uL (4.20-5.50); White Blood Count 11.5 X10*3/uL (4.8-10.8)
[2024-09-21 17:00] LABS: Blood Urea Nitrogen 39 mg/dL (9-16)
== END 2024-09-21 12:49 | disposition home or self-care (01) ==
LOC: HO.HMGCLDS 12:48
PROVIDERS: PCP Internal Medicine; Visit Provider Internal Medicine Hypertension Specialist
DX: N18.4 Chronic kidney disease, stage 4 (severe) (principal); D63.1 Anemia in chronic kidney disease
CPT/HCPCS: 36415; 84520; 85027

== ENCOUNTER 2024-09-25 14:37 | Outpatient (AMB) | payer MEDICARE, SELFPAY ==
--- NOTE | 2024-09-25 13:46 | HO.NEPHOV ---
Vital Signs 09/25/24 14:40 Height 5 ft 1 in Weight 208 lb BMI 39.3 BP 122/82 Blood Pressure Location Rt brachial Position Sitting Pulse 66 Pulse Source Pulse Oximeter Pulse Oximetry (%) 90 L Oxygen Delivery Method Nasal Cannula Intake Visit Reasons: 4wk Retacrit f/u w/labs Conf Teletypist Required: No Accompanied by: Spouse Allergies ciprofloxacin (From Cipro) Allergy (Severe, Verified 09/25/24 14:42) HIVES/SWELLING, THROAT CLOSES shellfish derived (SHELLFISH DERIVED) Allergy (Intermediate, Verified 09/25/24 14:42) Vomiting NSAIDS (Non-Steroidal Anti-Inflamma Adverse Reaction (Severe, Verified 09/25/24 14:42) Avoid due to kidney disease HPI Comments Details: 64 y/o female with advanced chronic obstructive pulmonary disease and chronic respiratory failure on supplemental oxygen. She has advanced CKD approaching end stage renal disease. Per Dr Muhammad's previous visit notes, he has discussed the need for dialysis if her kidney function decreases to 10% or less, or if she develops uremic symptoms, as well as the need for an AV fistula, which patient is considering. she is here for procrit injection for management of anemia of chronic disease. The patient reports experiencing fatigue and frequent episodes of falling asleep, which may be attributed to her anemia. Reports her shortness of breath improves after her epo shots. Her hemoglobin level is 8.9 g/dL, The anemia is likely contributing to her persistent tiredness. The patient also reports urinary retention, experiencing difficulty initiating urination at times, which she manages by lying down with her legs elevated. reports chronic SOB, states this is her baseline, states 90% O2 sat is around her baseline. denies chest pain, abdominal/flank pain, reports continues to void urine regularly. Denies nausea/vomiting, diarrhea. Denies pruritus, ticks/tremors, muscle cramping. Denies new brain fog/confusion. [facility] Medical History Respiratory failure with hypoxia Dyslipidemia History of lung cancer Hx of bronchitis CKD (chronic kidney disease) stage 4, GFR 15-29 ml/min Morbid obesity COPD (chronic obstructive pulmonary disease) Polysubstance abuse Respiratory failure with hypoxia and hypercapnia Ambulates with cane Seasonal allergies Herpes zoster Osteopenia (~2017) Respiratory failure COVID-19 (~03/2021) Osteoarthritis of ankles, bilateral Olecranon bursitis of left elbow Tubulovillous adenoma of large intestine (~2020) Hx of cardiac arrest (~2015) O2 dependent Methadone maintenance therapy patient History of claustrophobia History of seizure Anxiety and depression HTN (hypertension) Multiple fractures of ribs Anemia in chronic kidney disease Vitamin D deficiency Family history of colon cancer Restrictive lung disease LEO (obstructive sleep apnea) Surgical History Hx of tracheostomy History of esophagogastroduodenoscopy (EGD) (~2021) History of removal of ureteral stent (~2013) History of lung biopsy (~2019) History of colonoscopy (~2020) Umbilical hernia History of laparoscopy (~2012) History of hand surgery History of tubal ligation Family History Father Diabetes mellitus Mother Depression Mental health disorder Maternal Grandfather Colon cancer Sister No problems noted. Son No problems noted. Daughter No problems noted. Daughter No problems noted. Social History Household Members: Significant Other Housing: Unknown / Unable to assess Housing Other:: mobile home Are you a primary career services manager to a significant other at home: No Do you presently have visiting nurse or other home services: Yes Unable to assess alcohol history related to: Unable to respond Alcohol intake: never Comment: restraints Patient Tobacco Use Status: Former Tobacco user Tobacco use type: Cigarette Years Smoked: 25 yrs e-Cigarette/Vaping Use: Former Use Second Hand Smoke Exposure: No Substance Use Type: Heroin Advance Directives Date on File: 03/21/21 service: No Current occupational status: unemployed and disabled Cognitive needs: No Hearing needs: No Vision needs: No Review of Systems Const All systems reviewed & are unremarkable except as noted in HPI and below Physical Exam Vital Signs: Last Vital Signs Pulse 66 09/25/24 14:40 BP 122/82 09/25/24 14:40 Pulse Ox 90 L 09/25/24 14:40 Oxygen Delivery Method Nasal Cannula 09/25/24 14:40 BMI result Body Mass Index 39.3 Const General: comfortable Nutritional Appearance: well nourished Orientation/consciousness: patient oriented x3 HEENT Head: No normal to inspection Mouth: moist mucous membranes Neck Neck: Yes supple and Yes no JVD Resp Auscultation: clear to auscultation bilaterally and no rales Cardio Jugular venous distension: no JVD Palpation: no palpable S3 and no palpable S4 Heart sounds: no rubs GI Palpation (GI): Soft to palpation and nontender General: Yes no CVA tenderness Back/Spine/Pelvis Back: no CVA tenderness Skin General skin exam: no rashes or lesions noted Neuro General: patient oriented x3 Extrem General: No edema Office Meds epoetin [id number] 10,000 unit/mL injection solution Performing Provider: Juju Fu DNP, FNP-BC Performing Location: [facility] [place] [facility] Administered by: Juju Fu DNP, FNP-BC on 09/25/24 15:07 Dose Route Admin Location Dispensed Lot Number Expiration Date ND Drop Hammer Pile Driver Operator 20,000 unit subcut 2 mL [id number] 03/11/26 5754-2033-24 [employer] Total Dispensed Waste 2 mL 0 % Results Reviewed Nephrology Results: Hgb, (12.0-16.0) 8.9 g/dl L 09/21/24 WBC, (4.8-10.8) 11.5 X10*3/uL H 09/21/24 Plt Count, (160-400) 258 X10*3/uL 09/21/24 Sodium, (135-145) 144 mmol/L 09/07/24 Potassium, (3.3-5.1) 4.2 mmol/L 09/07/24 Chloride, (96-108) 111 mmol/L H 09/07/24 Carbon Dioxide, (22-29) 23 mmol/L 09/07/24 BUN, (9-16) 39 mg/dL H 09/21/24 Creatinine, (0.5-1.4) 3.76 mg/dL H 09/07/24 Calcium, (8.4-10.2) 9.1 mg/dL Δ 09/07/24 Phosphorus, (2.7-4.5) 3.3 mg/dL 09/07/24 Urine Protein, (Neg-Trace) 100 (2+) mg/dL H 09/05/24 Renal US 03/25/21 Assessment & Plan Assessment & Plan (1) CKD (chronic kidney disease) stage 5, GFR less than 15 ml/min: Code(s): N18.5 - Chronic kidney disease, stage 5 Category: Medical Plan: Advanced CKD approaching end stage renal disease. No overt signs or symptoms of uremia. Goal is to slow the progression of the renal disease. We will continue to watch renal function closely and initiate dialysis when appropriate. Dr Muhammad has discussed the need for AVF, and has placed a referral to vascular surgery. (2) HTN (hypertension): Code(s): I10 - Essential (primary) hypertension Category: Medical Plan: Blood pressure is controlled No need for Cardizem ( was stopped in Jan 2023) Continue with Coreg 3.125 b.i.d.. No changes were made to her diabetic regimen. (3) Anemia due to chronic kidney disease: Code(s): N18.9 - Chronic kidney disease, unspecified; D63.1 - Anemia in chronic kidney disease Category: Medical Qualifiers: Chronic kidney disease stage: stage 5 (GFR < 15), not on chronic dialysis Qualified Code(s): N18.5 - Chronic kidney disease, stage 5; D63.1 - Anemia in chronic kidney disease Plan: Stable. 20,000 units of retacrit administered today. goal is hct 30-36%, was 31.6 on 09/21. she will follow up in 2-[address] Muhammad for next retacrit injection. Orders: Orders Complete Blood Count Auto Diff 2 Weeks D63.1 - Anemia in chronic kidney disease, N18.4 - Chronic kidney disease, stage 4 (severe), N18.9 - Chronic kidney disease, unspecified AMB Epoetin Injection Practice Supplied Today D63.1 - Anemia in chronic kidney disease, N18.5 - Chronic kidney disease, stage 5, N18.9 - Chronic kidney disease, unspecified Basic Metabolic Panel 2 Weeks N18.5 - Chronic kidney disease, stage 5 Coding Level of Care Code Est Pt Level 3 (92936) Diagnoses CKD (chronic kidney disease) stage 5, GFR less than 15 ml/min N18.5 HTN (hypertension) I10 Anemia due to stage 5 chronic kidney disease, not on chronic dialysis N18.5; D63.1 Chronic kidney disease stage: stage 5 (GFR < 15), not on chronic dialysis
[2024-09-25 14:40] VITALS: BP 122/82; PULSE 66; O2SAT 90; BMI 39.3
--- OUTSIDE RECORDS SUMMARY | 2024-09-25 15:20 | XMS_ITS | Clinical Summary ---
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 HTN (hypertension) 01/31/2024 Chronic back pain 01/31/2024 Lung cancer, middle lobe ([facility] V24, [facility] V 28) 12/29/2023 Cancer Staging:Clinical:Stage IB(cT2a, cN0, cM0) - Signed by Lonnie Mercer MD on 12/29/2023 Anemia in chronic kidney disease 08/10/2022 Chronic kidney disease, stag e 4 (severe) ([facility] V24, [facility] V28) 08/10/2022 Hypertensive renal disease 06/20/2020 Degenerative [...] Insurance [place] - [place] Care Teams Tree Farmer Relationship Specialty Start Date End Date Valerie Castano MD [address] [place] [address] PCP - General 05/21/10
--- OUTSIDE RECORDS SUMMARY | 2024-09-25 15:20 | XMS_ITS | Clinical Summary ---
Author Organization [facility] Address [address] [place] [address] Care Team Providers Care Mold Dumper Name Role Phone Patient, Has No Pcp [...] age to complete this topic Insurance MEDICARE [facility] Care Teams Mold Dumper Relationship Specialty Start Date End Date Patient, Has No Pcp Or Ref DO NOT EDIT THIS RECORD VIA PROVIDER ON THE FLY PCP - General Registered Nurse Teacher 06/10/21
--- OUTSIDE RECORDS SUMMARY | 2024-09-25 15:20 | XMS_ITS | Encounter Summary ---
Author Organization [facility] Address [address] [place] [address] Phone Care Team Providers Care Mid Teacher Name Role Phone Angel Castaon MD Primary Care Provider [phone]- [phone] Encounter Details Date Type Department Care Team (Late st Contact Info) Description 05/04/2022 Telephone [facility] [address] [place] [address] Kitty Menezes MA Social History [...] on filedocumented in this encounter Care Teams Mid Teacher Relationship Specialty Start Date End Date Angel Castano MD [facility] [place] [id number] PCP - General 02/19/20 documented as of this encounter
== END 2024-09-25 15:02 | disposition home or self-care (01) ==
LOC: HO.HKA 14:38
PROVIDERS: PCP Internal Medicine; Visit Provider Internal Medicine Hypertension Specialist
DX: N18.5 Chronic kidney disease, stage 5 (principal); I12.0 Hypertensive chronic kidney disease with stage 5 chronic kidney disease or end stage renal disease; D63.1 Anemia in chronic kidney disease
CPT/HCPCS: 99213

== ENCOUNTER → 2024-09-25 14:37 | Outpatient (BNVA) | payer MEDICARE, SELFPAY | PROVIDERS: PCP Internal Medicine; Visit Provider Internal Medicine Hypertension Specialist | DX: I12.9 Hypertensive chronic kidney disease with stage 1 through stage 4 chronic kidney disease, or unspecified chronic kidney disease (principal); D63.1 Anemia in chronic kidney disease; N18.5 Chronic kidney disease, stage 5 | CPT/HCPCS: 96372; 99212; Q5106 ==

== ENCOUNTER 2024-09-26 15:29 | Outpatient (AMB) | payer MEDICARE, MEDICAID, SELFPAY ==
[2024-09-26 15:35] VITALS: BP 148/80; PULSE 102; O2SAT 88; BMI 39.6
--- NOTE | 2024-09-26 15:35 | MHC.OFFVIS ---
Vital Signs 09/26/24 15:35 Height 5 ft 1 in Weight 209 lb 7.026 oz BMI 39.6 BP 148/80 H Blood Pressure Location Lt brachial Position Sitting Pulse 102 H Pulse Source Pulse Oximeter Pulse Oximetry (%) 88 L Oxygen Delivery Method Room Air Oxygen Flow Rate 1 Intake Visit Reasons: [facility] f/u Intake Note: [place] [facility] [place], she is concerned over how much oxygen due to elevated co2, only using nebulizer prn, she is getting confused again, her spouse noticed last night. Safety Coordinator Required: No Allergies ciprofloxacin (From Cipro) Allergy (Severe, Verified 09/26/24 16:48) HIVES/SWELLING, THROAT CLOSES shellfish derived (SHELLFISH DERIVED) Allergy (Intermediate, Verified 09/26/24 16:48) Vomiting NSAIDS (Non-Steroidal Anti-Inflamma Adverse Reaction (Severe, Verified 09/26/24 16:48) Avoid due to kidney disease Medication List - Last Reconciled 09/26/24 by Mayte Cochran MD acetaminophen 650 mg PO Q6H PRN aspirin 81 mg PO DAILY atorvastatin 10 mg PO BEDTIME azithromycin 250 mg PO 3XW 90 days Breo Ellipta 100-25 mcg/dose (fluticasone furoate-vilanterol) 1 ea PO DAILY 90 days NS carvedilol 3.125 mg PO BID cinacalcet 30 mg PO DAILY gabapentin 100 mg PO DAILY PRN hydroxyzine pamoate 100 mg PO BEDTIME PRN ipratropium-albuterol 0.5 mg-3 mg(2.5 mg base)/3 mL 3 mL inhalation Q4-6H PRN levocetirizine 5 mg PO DAILY PRN lorazepam 1 mg PO BID PRN methadone 70 mg PO DAILY prednisone 40 mg (2 x 20 mg) PO DAILY prednisone 5 mg PO Q OTHER DAY 90 days torsemide 20 mg PO BID Do you need a note to return to daycare/school/sports/work: No HPI HPI c f/u: Details: IMTIAZ Mcdaniel 64 years old female with end-stage COPD/respiratory failure, is here today for post hospitalization follow-up. She was admitted through the emergency room on 09/06 -09/07 with acute on chronic respiratory failure and change in mental status due to increased hypercapnia caused by narcotics abuse. She was treated with BiPAP which she tolerated only for 2 hours, and with controlled O2 supplementation. And her usual medical regimen. There was no evidence of any acute respiratory infection. Respiratory failure had improved to baseline and she was discharged on 09/07. Patient was given a short course of prednisone in addition to her usual regimen. Since the discharge she has been stable as usual but drifts back and forth between being alert and sleepy/drowsy States that she has not been doing any substance abuse, except for her regular meds. However according to her significant other who lives with, she tends to be forgetful, and needs to be awakened every now and then. [facility] Medical History Respiratory failure with hypoxia Dyslipidemia History of lung cancer Hx of bronchitis CKD (chronic kidney disease) stage 4, GFR 15-29 ml/min Morbid obesity COPD (chronic obstructive pulmonary disease) Polysubstance abuse Respiratory failure with hypoxia and hypercapnia Ambulates with cane Seasonal allergies Herpes zoster Osteopenia (~2017) Respiratory failure COVID-19 (~03/2021) Osteoarthritis of ankles, bilateral Olecranon bursitis of left elbow Tubulovillous adenoma of large intestine (~2020) Hx of cardiac arrest (~2015) O2 dependent Methadone maintenance therapy patient History of claustrophobia History of seizure Anxiety and depression HTN (hypertension) Multiple fractures of ribs Anemia in chronic kidney disease Vitamin D deficiency Family history of colon cancer Restrictive lung disease LEO (obstructive sleep apnea) Surgical History Hx of tracheostomy History of esophagogastroduodenoscopy (EGD) (~2021) History of removal of ureteral stent (~2013) History of lung biopsy (~2019) History of colonoscopy (~2020) Umbilical hernia History of laparoscopy (~2012) History of hand surgery History of tubal ligation Family History Father Diabetes mellitus Mother Depression Mental health disorder Maternal Grandfather Colon cancer Sister No problems noted. Son No problems noted. Daughter No problems noted. Daughter No problems noted. Social History Household Members: Significant Other Housing: Unknown / Unable to assess Housing Other:: mobile home Are you a primary critical care registered nurse to a significant other at home: No Do you presently have visiting nurse or other home services: Yes Unable to assess alcohol history related to: Unable to respond Alcohol intake: never Comment: restraints Patient Tobacco Use Status: Former Tobacco user Tobacco use type: Cigarette Years Smoked: 25 yrs e-Cigarette/Vaping Use: Former Use Second Hand Smoke Exposure: No Substance Use Type: Heroin Advance Directives Date on File: 03/21/21 service: No Current occupational status: unemployed and disabled Cognitive needs: No Hearing needs: No Vision needs: No Review of Systems Const All systems reviewed & are unremarkable except as noted in HPI and below Eyes Reports no additional complaints ENT Reports no additional complaints Card Denies chest pain, Denies irregular heart rhythm and Denies leg edema Resp Reports as per HPI and Reports other (RIGHT-SIDED RIBCAGE PAIN IS NEW DUE TO THE FALL AT HOME) GI Denies no additional complaints Denies no additional complaints Musc Reports abnormal gait (IMPAIRED LOCOMOTION, WALKS SLOW, WITH MINIMAL SUPPORT) and Reports back pain Skin/Breast Reports system reviewed and no additional complaints, except as documented Neuro Reports abnormal gait (IMPAIRED LOCOMOTION, WALKS SLOW, WITH MINIMAL SUPPORT) Psych Reports no additional complaints Physical Exam Vital Signs: Last Vital Signs Pulse 102 H 09/26/24 15:35 BP 148/80 H 09/26/24 15:35 Pulse Ox 88 L 09/26/24 15:35 Oxygen Delivery Method Room Air 09/26/24 15:35 Oxygen Flow Rate 1 09/26/24 15:35 BMI result Body Mass Index 39.6 Const General: comfortable, no acute distress, alert, awake and other (WALKS SLOWLY, WITH THE HELP OF A CANE.) Orientation/consciousness: patient oriented x3 HEENT Head: Yes normal to inspection General nose exam: No nasal polyps present and No nasal discharge present Face and sinus: Yes sinuses nontender Mouth: oropharynx normal Teeth and gingiva: other (THROAT IS CLEAR NO THRUSH AND NO EXTRA MUCUS NOTED) Throat: Yes posterior oropharynx normal Eyes General: appearance normal, both eyes and all related structures Neck Neck: Yes normal visual inspection, Yes no lymphadenopathy, Yes trachea midline and Yes no JVD Thyroid: Thyroid normal Chest Chest palpation & inspection: normal inspection of the chest, normal palpation of entire chest wall and no tenderness Resp Other: PERCUSSION NOTE IS RESONANT, BREATH SOUNDS ARE VERY DISTANT BUT EQUAL ON BOTH SIDES. NO WHEEZES OR RHONCHI ARE HEARD TODAY. Cardio Palpation: PMI not normal (PMI IS NOT PALPABLE.) and other Rate: regular rate Rhythm: regular rhythm Heart sounds: no gallops and no murmurs GI Palpation (GI): Soft to palpation, nontender, No hepatosplenomegaly present, no masses and Other GI palpation findings present (ABDOMEN IS OBESE AND PROTUBERANT) Auscultation: normal bowel sounds Back/Spine/Pelvis Thoracic/Lumbar Spine: thoracic and lumbar spine normal to inspection and thoraco-lumbar ROM limited Skin General skin exam: no rashes or lesions noted Neuro General: patient oriented x3, No gait normal (GAIT IS SLOW AND SLIGHTLY UNSTABLE PATIENT NEEDS A CANE TO WALK) and no focal motor deficits Cranial nerves: Yes CN's II-XII intact bilaterally Extrem General: Yes normal to inspection, Yes no calf tenderness and Yes edema (CHRONIC STASIS EDEMA OF THE LEGS) Psych Appearance: grossly normal and well kempt Speech and movement: Normal speech and movement present Results Reviewed Results Reviewed: Venous blood gas test is ordered . Assessment & Plan Assessment & Plan (1) COPD (chronic obstructive pulmonary disease): Comment: PATIENT HAS LONG-STANDING HISTORY OF CHRONIC OBSTRUCTIVE PULMONARY DISEASE PRIMARILY DUE TO HER LONG TIME SMOKING, SHE QUIT EARLIER IN 2022. GETS FREQUENT ACUTE EXACERBATIONS, WHICH ARE DEFINITELY MUCH LESS SINCE SHE IS ON AZITHROMYCIN THERAPY. CURRENTLY SHE IS ON PREDNISONE 5 MG EVERY OTHER DAY, AND SHE ALSO STAYS ON AZITHROMYCIN 3 DAYS A WEEK. Code(s): J44.9 - Chronic obstructive pulmonary disease, unspecified Category: Medical Plan: Ipratropium-albuterol solution in the nebulizer Q 6 hours while awake and she is instruct to use it regularly. Marlys Peters 100-251 inhalation daily Prednisone 5 mg daily Azithromycin 250 mg p.o. 3 days a week (2) Acute on chronic respiratory failure with hypoxia and hypercapnia: Comment: This patient has longstanding chronic respiratory failure with hypoxemia and hypercapnia. She has been prescribed BiPAP treatment at home but she has not been able to tolerate. Uses O2 2 L/minute. Today she had cut down warm L/minute to avoid hypercapnia but O2 sat was in mid. 80s so I instructed her to use up to 2 L/minute to keep O2 sat 89 to 91% Code(s): J96.21 - Acute and chronic respiratory failure with hypoxia; J96.22 - Acute and chronic respiratory failure with hypercapnia Category: Medical Plan: As above. Venous blood gas study is ordered She is encouraged to do deep breathing exercises every hour if possible while awake (3) Polysubstance abuse: Comment: I told her that it is her substance abuse which makes her respiratory failure worse and, she ends up in the hospital. The only way to avoid rehospitalization is to completely refrain from substance abuse. Code(s): F19.10 - Other psychoactive substance abuse, uncomplicated Category: Medical Plan: I did also alert her that if she ends up going back and forth to the hospital I think she should then be placed in a long-term facility , so that she can be. Watched on supervised continuously (4) Morbid obesity: Comment: SHE IS CHRONICALLY OBESE MAINLY DUE TO LACK OF PHYSICAL ACTIVITY. SHE REMAINS AT RISK OF SLEEP APNEA/HYPOVENTILATION SYNDROME AND RESPIRATORY FAILURE. Code(s): E66.01 - Morbid (severe) obesity due to excess calories Category: Medical Plan: PRACTICALLY THERE IS NO WAY TO ENFORCE A WEIGHT REDUCTION PROGRAM Orders: Orders Venous Blood Gas Today J44.9 - Chronic obstructive pulmonary disease, unspecified, J96.91 - Respiratory failure, unspecified with hypoxia Coding Level of Care Code Est Pt Level 4 (86513) Diagnoses COPD (chronic obstructive pulmonary disease) J44.9 Acute on chronic respiratory failure with hypoxia and hypercapnia J96.21; J96.22 Polysubstance abuse F19.10 Morbid obesity E66.01
--- OUTSIDE RECORDS SUMMARY | 2024-09-26 16:46 | XMS_ITS | Clinical Summary ---
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
--- OUTSIDE RECORDS SUMMARY | 2024-09-26 16:46 | XMS_ITS | Clinical Summary ---
Author Organization [facility] Address [address] [place] [address] Care Team Providers Care Roll Setter Name Role Phone Patient, Has No Pcp [...] age to complete this topic Insurance MEDICARE [facility] Care Teams Roll Setter Relationship Specialty Start Date End Date Patient, Has No Pcp Or Ref DO NOT EDIT THIS RECORD VIA PROVIDER ON THE FLY PCP - General Clinical Nurse Reviewer 06/10/21
--- OUTSIDE RECORDS SUMMARY | 2024-09-26 16:46 | XMS_ITS | Encounter Summary ---
Author Organization [facility] Address [address] [place] [address] Phone Care Team Providers Care Security Researcher Name Role Phone Angel Castano MD Primary Care Provider +1- [phone] Encounter Details Date Type Department Care Team (Late st Contact Info) Description 05/04/2022 Telephone [facility] [address] [place] [address] Kitty Menezes [place] Social History [...] on filedocumented in this encounter Care Teams Security Researcher Relationship Specialty Start Date End Date Angel Castano MD [facility] [place] [id number] PCP - General 02/19/20 documented as of this encounter
== END 2024-09-26 15:53 | disposition home or self-care (01) ==
LOC: HO.HPS 15:29
PROVIDERS: PCP Internal Medicine; Visit Provider Internal Medicine
DX: J44.9 Chronic obstructive pulmonary disease, unspecified (principal); J96.21 Acute and chronic respiratory failure with hypoxia; J96.22 Acute and chronic respiratory failure with hypercapnia; F19.10 Other psychoactive substance abuse, uncomplicated; E66.01 Morbid (severe) obesity due to excess calories
CPT/HCPCS: 99214

== ENCOUNTER → 2024-09-26 15:29 | Outpatient (BNVA) | payer MEDICARE, SELFPAY | PROVIDERS: PCP Internal Medicine; Visit Provider Internal Medicine | DX: J96.21 Acute and chronic respiratory failure with hypoxia (principal); J96.22 Acute and chronic respiratory failure with hypercapnia; J44.9 Chronic obstructive pulmonary disease, unspecified; F19.10 Other psychoactive substance abuse, uncomplicated; E66.01 Morbid (severe) obesity due to excess calories; Z68.39 Body mass index [BMI] 39.0-39.9, adult | CPT/HCPCS: 99212 ==

== ENCOUNTER 2024-10-13 12:48 | Outpatient (REF) | payer MEDICARE, MEDICAID, SELFPAY ==
--- OUTSIDE RECORDS SUMMARY | 2024-10-13 12:59 | XMS_ITS | Clinical Summary ---
Author Organization [facility] Address [address] [place] [address] [address] [place] [address] Phone Care Team Providers Care Broadcast Maintenance Technician Name Role Phone Angel Castano MD Primary Care Provider +1- [phone] Allergies Active Allergy Reactions Criticality Noted Date [...] stage I through stage IV, or unspecified 57699 Units IJ Every 14 days 11/22/2020 Active [...] PCV) 03/22/2013 03/22/2012, 05/18/2011 Influenza Vaccine (#1) 2024 Pneumococcal Vaccine: Peds ( 0 to 5 Years) and At-Risk Patients (6 to 49 Years) Discontinued 03/22/2012, 05/18/2011 Hepatitis B Vaccine Aged Out No longe r eligible based on patient's age to complete this topic Insurance Medicare Medicaid [place] Medicaid [place] Care Teams Broadcast Maintenance Technician Relationship Specialty Start Date End Date Angel Castano MD [address] [place] [id number] PCP - General 02/19/20
--- OUTSIDE RECORDS SUMMARY | 2024-10-13 12:59 | XMS_ITS | Clinical Summary ---
Author Organization [facility] Address [address] [place] [address] Care Team Providers Care Sales Coach Name Role Phone Ref, Has No Pcp Or Primary Care Provider Unavail able Allergies Active Allergy Reactions Criticality Noted Date [...] PCV20 or PCV21) 02/19/2020 02/18/2015, 03/22/2012, 05/18/2011 Alcohol/Substance Use Screening 02/09/2024 Depression Screening and Follow-Up 02/09/2024 Social Drivers of Health Annual Screening 02/09/2024 COVID-19 Vaccine (4 - 2024- season) 2024 09/23/2020, 05/22/2020, 05/01/2020 Influenza Vaccine (#1) 2024 , 11/02/2019, 10/22/2018, Additional history exists DTaP,Tdap,and Td Vaccines (4 - Td or Tdap) 01/13/2029 01/13/2019, 11/01/2012, 01/27/2010 RSV Vaccine (60+ years old and patients) (1 - 1-dose 75+ series) 2037 Zoster Vaccines Completed 10/22/2018, 08/16/2018 Hepatitis B Vaccines Aged Out No long er eligible based on patient's age to complete this topic Insurance MEDICARE [facility] Care Teams Sales Coach Relationship Specialty Start Date End Date Ref, Has No Pcp Or DO NOT EDIT THIS RECORD VIA PROVIDER ON THE FLY PCP - General Supervisor Garage 06/10/21
--- OUTSIDE RECORDS SUMMARY | 2024-10-13 12:59 | XMS_ITS | Clinical Summary ---
Author Organization [facility] Address [address] [place] [address] Phone Care Team Providers Care Manager Paid Name Role Phone Valerie Castano MD Primary [...] 01/31/2024 Chronic obstructive pulmonar y disease (COPD) ([facility] V24, CMS/[facility] V28) 01/31/2024 Congenital anomaly of diaphragm 01/31/2024 HTN (hypertension) 01/31/2024 Chronic back pain 01/31/2024 Lung cancer, middle lobe (CMS/[facility] V24, [facility] V 28) 12/29/2023 Cancer Staging:Clinical:Stage IB(cT2a, cN0, cM0) - Signed by Lonnie Mercer MD on 12/29/2023 Anemia in chronic kidney disease 08/10/2022 Chronic kidney disease, stag e 4 (severe) (CMS/[facility] V24, CMS/[facility] V28) 08/10/2022 Hypertensive renal disease 06/20/2020 [...] Comments OTHER SURGICAL HISTORY - 1989 PROCEDURE: [place] CAUTERY CERVIX CRYOCAUTERY INITIAL/REPEAT; COMMENT: for abnormal pap OTHER SURGICAL HISTORY PROCEDURE: [place] LIG/TRNSXJ FLP TUBE ABDL/VAG APPR UNI/BI OTHER SURGICAL HISTORY 2012 PROCEDURE: LA EXPLORATORY LAPAROTOMY CELIOTOMY W/WO BIOPSY SPX; COMMENT: [...] Sexual Orientation Not on file Obstetrics History * This document contains information received from the source organization and may not represent a complete record from that organization. Para Term AB IAB SAB Ectopic Multiple Livin g Live Births 5 3 3 3 3 Date Outcome GA Total Labor Labor/2nd/3rd Weight Sex Type Anes PTL Katie A1 A5 Name Clin Term Living Term Living Term Living Plan of Treatment Health Maintenance Due Date [...] [place] - [place] Care Teams Manager Paid Relationship Specialty Start Date End Date Valerie Castano MD [address] [facility] [place] [address] PCP - General 05/21/10
--- OUTSIDE RECORDS SUMMARY | 2024-10-13 12:59 | XMS_ITS | Encounter Summary ---
Author Organization [facility] Address [address] [place] [address] Phone Care Team Providers Care Php Lamp Developer Name Role Phone Angel Castano MD Primary Care Provider +1- [phone] Encounter Details Date Type Department Care Team (Late st Contact Info) Description 05/04/2022 Telephone [facility] [address] [place] [address] Kitty Menezes [place] Social History [...] on filedocumented in this encounter Care Teams Php Lamp Developer Relationship Specialty Start Date End Date Angel Castano MD [facility] [place] [id number] PCP - General 02/19/20 documented as of this encounter
[2024-10-13 16:08] LABS: MANUAL DIFF FLAG NO
[2024-10-13 16:12] LABS: Hematocrit 30.1 % (37.0-47.0); Hemoglobin 8.8 g/dl (12.0-16.0); Imm Gran Abs Auto 0.12 X10*3/uL (0.00-0.03); Imm Gran Pct Auto 1.1 % (0.0-0.4); Lymphocytes Absolute Auto 0.9 X10*3/uL (1.2-4.9); Mean Corpuscular HGB Conc 29.2 g/dl (31.0-35.0); Mean Corpuscular Hemoglobin 27.6 pg (27.0-33.0); Mean Corpuscular Volume 94.4 fL (80.0-98.0); NRBC Abs Auto 0.020 X10*3/uL (0.0-0.012); NRBC Pct Auto 0.2 /100WBC (0.0-0.2); Platelet Count 266 X10*3/uL (160-400); Red Blood Count 3.19 X10*6/uL (4.20-5.50); White Blood Count 11.2 X10*3/uL (4.8-10.8)
[2024-10-13 16:28] LABS: Anion Gap 16 (12-20); Blood Urea Nitrogen 44 mg/dL (9-16); Calcium 8.9 mg/dL (8.4-10.2); Carbon Dioxide 21 mmol/L (22-29); Chloride 111 mmol/L (96-108); Potassium 5.5 mmol/L (3.3-5.1); Sodium 142 mmol/L (135-145)
[2024-10-13 16:30] LABS: Estimated Glomerular Filt Rate 11
== END 2024-10-13 12:49 | disposition home or self-care (01) ==
LOC: HO.HMGCLDS 12:48
PROVIDERS: PCP Internal Medicine; Visit Provider Nurse Practitioner Family
DX: N18.5 Chronic kidney disease, stage 5 (principal); D63.1 Anemia in chronic kidney disease
CPT/HCPCS: 36415; 80048; 85025

== ENCOUNTER 2024-10-16 14:51 | Outpatient (AMB) | payer MEDICARE, SELFPAY ==
[2024-10-16 14:59] VITALS: BP 122/68; PULSE 101; O2SAT 93; BMI 41.4
--- NOTE | 2024-10-16 14:59 | HO.NEPHOV_ITS ---
Vital Signs 10/16/24 14:59 Height 5 ft 1 in Weight 219 lb BMI 41.4 BP 122/68 Blood Pressure Location Lt brachial Position Sitting Pulse 101 H Pulse Source Pulse Oximeter Pulse Oximetry (%) 93 Oxygen Delivery Method Nasal Cannula Intake Visit Reasons: Follow up-# Not accepting calls [place] Required: No Accompanied by: Spouse Allergies ciprofloxacin (From Cipro) Allergy (Severe, Verified 10/16/24 15:01) HIVES/SWELLING, THROAT CLOSES shellfish derived (SHELLFISH DERIVED) Allergy (Intermediate, Verified 10/16/24 15:01) Vomiting NSAIDS (Non-Steroidal Anti-Inflamma Adverse Reaction (Severe, Verified 10/16/24 15:01) Avoid due to kidney disease Medication List - Last Reconciled 10/16/24 by Fermin Muhammad MD acetaminophen 650 mg PO Q6H PRN aspirin 81 mg PO DAILY atorvastatin 10 mg PO BEDTIME azithromycin 250 mg PO 3XW 90 days Breo Ellipta 100-25 mcg/dose (fluticasone furoate-vilanterol) 1 ea PO DAILY 90 days NS carvedilol 3.125 mg PO BID cinacalcet 30 mg PO DAILY gabapentin 100 mg PO DAILY PRN hydroxyzine pamoate 100 mg PO BEDTIME PRN ipratropium-albuterol 0.5 mg-3 mg(2.5 mg base)/3 mL 3 mL inhalation Q4-6H PRN levocetirizine 5 mg PO DAILY PRN lorazepam 1 mg PO BID PRN methadone 70 mg PO DAILY prednisone 40 mg (2 x 20 mg) PO DAILY prednisone 5 mg PO Q OTHER DAY 90 days torsemide 20 mg PO BID HPI Comments Details: 64 y/o female with advanced chronic obstructive pulmonary disease and chronic respiratory failure on supplemental oxygen. She has advanced CKD approaching end stage renal disease. Per Dr Muhammad's previous visit notes, he has discussed the need for dialysis if her kidney function decreases to 10% or less, or if she develops uremic symptoms, as well as the need for an AV fistula, which patient is considering. she is here for procrit injection for management of anemia of chronic disease. The patient reports experiencing fatigue and frequent episodes of falling asleep, which may be attributed to her anemia. Reports her shortness of breath improves after her epo shots. Her hemoglobin level is 8.9 g/dL, The anemia is likely contributing to her persistent tiredness. The patient also reports urinary retention, experiencing difficulty initiating urination at times, which she manages by lying down with her legs elevated. reports chronic SOB, states this is her baseline, states 90% O2 sat is around her baseline. denies chest pain, abdominal/flank pain, reports continues to void urine regularly. Denies nausea/vomiting, diarrhea. Denies pruritus, ticks/tremors, muscle cramping. Denies new brain fog/confusion. [facility] Medical History Respiratory failure with hypoxia Dyslipidemia History of lung cancer Hx of bronchitis CKD (chronic kidney disease) stage 4, GFR 15-29 ml/min Morbid obesity COPD (chronic obstructive pulmonary disease) Polysubstance abuse Respiratory failure with hypoxia and hypercapnia Ambulates with cane Seasonal allergies Herpes zoster Osteopenia (~2017) Respiratory failure COVID-19 (~03/2021) Osteoarthritis of ankles, bilateral Olecranon bursitis of left elbow Tubulovillous adenoma of large intestine (~2020) Hx of cardiac arrest (~2015) O2 dependent Methadone maintenance therapy patient History of claustrophobia History of seizure Anxiety and depression HTN (hypertension) Multiple fractures of ribs Anemia in chronic kidney disease Vitamin D deficiency Family history of colon cancer Restrictive lung disease LEO (obstructive sleep apnea) Surgical History Hx of tracheostomy History of esophagogastroduodenoscopy (EGD) (~2021) History of removal of ureteral stent (~2013) History of lung biopsy (~2019) History of colonoscopy (~2020) Umbilical hernia History of laparoscopy (~2012) History of hand surgery History of tubal ligation Family History Father Diabetes mellitus Mother Depression Mental health disorder Maternal Grandfather Colon cancer Sister No problems noted. Son No problems noted. Daughter No problems noted. Daughter No problems noted. Social History Household Members: Significant Other Housing: Unknown / Unable to assess Housing Other:: mobile home Are you a primary technical healthcare consultant to a significant other at home: No Do you presently have visiting nurse or other home services: Yes Unable to assess alcohol history related to: Unable to respond Alcohol intake: never Comment: restraints Patient Tobacco Use Status: Former Tobacco user Tobacco use type: Cigarette Years Smoked: 25 yrs e-Cigarette/Vaping Use: Former Use Second Hand Smoke Exposure: No Substance Use Type: Former Substance User and Heroin Advance Directives Date on File: 03/21/21 service: No Current occupational status: unemployed and disabled Cognitive needs: No Hearing needs: No Vision needs: No Physical Exam Vital Signs: Last Vital Signs Pulse 101 H 10/16/24 14:59 BP 122/68 10/16/24 14:59 Pulse Ox 93 10/16/24 14:59 Oxygen Delivery Method Nasal Cannula 10/16/24 14:59 BMI result Body Mass Index 41.4 Const General: comfortable Nutritional Appearance: well nourished Orientation/consciousness: patient oriented x3 HEENT Head: No normal to inspection Mouth: moist mucous membranes Neck Neck: Yes supple and Yes no JVD Resp Auscultation: clear to auscultation bilaterally and no rales Cardio Jugular venous distension: no JVD Palpation: no palpable S3 and no palpable S4 Heart sounds: no rubs GI Palpation (GI): Soft to palpation and nontender General: Yes no CVA tenderness Back/Spine/Pelvis Back: no CVA tenderness Skin General skin exam: no rashes or lesions noted Neuro General: patient oriented x3 Extrem General: No edema Office Meds epoetin [id number] 20,000 unit/mL injection solution Performing Provider: Fermin Muhammad MD [place] [facility] [place] [facility] Administered by: Fermin Muhammad MD on 10/16/24 15:13 Dose Route Admin Location Dispensed Lot Number Expiration Date [facility] [place]NOTE 2] Brand Recorder 20,000 unit subcut left arm 1 mL [id number] 04/07/26 0176-1042-46 PFIZE R US PHARM Total Dispensed Waste 1 mL 0 % Results Reviewed Nephrology Results: Hgb, (12.0-16.0) 8.8 g/dl L 10/13/24 WBC, (4.8-10.8) 11.2 X10*3/uL H 10/13/24 Plt Count, (160-400) 266 X10*3/uL 10/13/24 Sodium, (135-145) 142 mmol/L 10/13/24 Potassium, (3.3-5.1) 5.5 mmol/L H Δ 10/13/24 Chloride, (96-108) 111 mmol/L H 10/13/24 Carbon Dioxide, (22-29) 21 mmol/L L 10/13/24 BUN, (9-16) 44 mg/dL H 10/13/24 Creatinine, (0.5-1.4) 4.14 mg/dL H* 10/13/24 Calcium, (8.4-10.2) 8.9 mg/dL 10/13/24 Renal US 03/25/21 Assessment & Plan Assessment & Plan (1) CKD (chronic kidney disease) stage 5, GFR less than 15 ml/min: Code(s): N18.5 - Chronic kidney disease, stage 5 Category: Medical Plan: Advanced CKD approaching end stage renal disease. No overt signs or symptoms of uremia. Goal is to slow the progression of the renal disease. We will continue to watch renal function closely and initiate dialysis when appropriate. (2) HTN (hypertension): Code(s): I10 - Essential (primary) hypertension Category: Medical Plan: Blood pressure is controlled No need for Cardizem ( was stopped in Jan 2023) Continue with Coreg 3.125 b.i.d.. No changes were made to her diabetic regimen. (3) Anemia due to chronic kidney disease: Code(s): N18.9 - Chronic kidney disease, unspecified; D63.1 - Anemia in chronic kidney disease Category: Medical Qualifiers: Chronic kidney disease stage: stage 5 (GFR < 15), not on chronic dialysis Qualified Code(s): N18.5 - Chronic kidney disease, stage 5; D63.1 - Anemia in chronic kidney disease Plan: Stable. 20,000 units of retacrit administered today. goal is hct 30-36%, was 31.6 on 09/21. Orders: Orders AMB Epoetin Injection Practice Supplied Today N40.1 - Benign prostatic hyperplasia with lower urinary tract symptoms Coding Level of Care Code Est Pt Level 4 (45145) Diagnoses CKD (chronic kidney disease) stage 5, GFR less than 15 ml/min N18.5 HTN (hypertension) I10 Anemia due to stage 5 chronic kidney disease, not on chronic dialysis N18.5; D63.1 Chronic kidney disease stage: stage 5 (GFR < 15), not on chronic dialysis
--- OUTSIDE RECORDS SUMMARY | 2024-10-16 18:10 | XMS_ITS | Encounter Summary ---
Author Organization [facility] Address [address] [place] [address] Phone Care Team Providers Care Lumber Estimator Name Role Phone Angel Castano MD Primary Care Provider +1- [phone] Encounter Details Date Type Department Care Team (Late st Contact Info) Description 05/04/2022 Telephone [facility] [address] [place] [address] Kitty Menezes MA Social History [...] on filedocumented in this encounter Care Teams Lumber Estimator Relationship Specialty Start Date End Date Angel Castano MD [facility] [place] [id number] PCP - General 02/19/20 documented as of this encounter
--- OUTSIDE RECORDS SUMMARY | 2024-10-16 18:10 | XMS_ITS | Clinical Summary ---
Author Organization [facility] Address [address] [place] [address] [address] [place] [address] Phone Care Team Providers Care Fish Hatchery Specialist Name Role Phone Angel Castano MD Primary Care Provider +1- [phone] Allergies Active Allergy Reactions Criticality Noted Date [...] stage I through stage IV, or unspecified 55026 Units IJ Every 14 days 11/22/2020 Active [...] Medicaid [place] Care Teams Fish Hatchery Specialist Relationship Specialty Start Date End Date Angel Castano MD [address] [place] [id number] PCP - General 02/19/20
--- OUTSIDE RECORDS SUMMARY | 2024-10-16 18:10 | XMS_ITS | Clinical Summary ---
Author Organization [facility] Address [address] [place] [address] Phone Care Team Providers Care Home Appliances Mechanic Name Role Phone Valerie Castano MD [...] 01/31/2024 Chronic obstructive pulmonar y disease (COPD) ([facility] V24, CMS/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 V24, [facility] V 28) 12/29/2023 Cancer Staging:Clinical:Stage IB(cT2a, cN0, cM0) - Signed by Lonnie Mercer MD on 12/29/2023 Anemia in chronic kidney disease 08/10/2022 Chronic kidney disease, stag e 4 (severe) (CMS/[facility] V24, CMS/[facility] V28) 08/10/2022 Hypertensive renal disease 06/20/2020 [...] Comments OTHER SURGICAL HISTORY - 1989 PROCEDURE: [place] CAUTERY CERVIX CRYOCAUTERY INITIAL/REPEAT; COMMENT: for abnormal pap OTHER SURGICAL HISTORY PROCEDURE: [place] LIG/TRNSXJ FLP TUBE ABDL/VAG APPR UNI/BI OTHER SURGICAL HISTORY 2012 PROCEDURE: [place] EXPLORATORY LAPAROTOMY CELIOTOMY W/WO BIOPSY SPX; COMMENT: [...] Insurance [place] - [place]ARE Care Teams Home Appliances Mechanic Relationship Specialty Start Date End Date Valerie Castano MD [address] [facility] [place] [address] PCP - General 05/21/10
--- OUTSIDE RECORDS SUMMARY | 2024-10-16 18:10 | XMS_ITS | Clinical Summary ---
Author Organization [facility] Address [address] [place] [address] Care Team Providers Care Hat Braider Name Role Phone Ref, Has No Pcp [...] age to complete this topic Insurance MEDICARE [facility] Care Teams Hat Braider Relationship Specialty Start Date End Date Ref, Has No Pcp Or DO NOT EDIT THIS RECORD VIA PROVIDER ON THE FLY PCP - General Professor Of Graphic Design 06/10/21
== END 2024-10-16 15:18 | disposition home or self-care (01) ==
PROVIDERS: PCP Internal Medicine; Visit Provider Internal Medicine Hypertension Specialist
DX: N18.5 Chronic kidney disease, stage 5 (principal); I12.0 Hypertensive chronic kidney disease with stage 5 chronic kidney disease or end stage renal disease; D63.1 Anemia in chronic kidney disease; N40.1 Benign prostatic hyperplasia with lower urinary tract symptoms
CPT/HCPCS: 99214

== ENCOUNTER → 2024-10-16 14:51 | Outpatient (BNVA) | payer MEDICARE, SELFPAY | PROVIDERS: PCP Internal Medicine; Visit Provider Internal Medicine Hypertension Specialist | DX: I12.0 Hypertensive chronic kidney disease with stage 5 chronic kidney disease or end stage renal disease (principal); N18.5 Chronic kidney disease, stage 5; D63.1 Anemia in chronic kidney disease | CPT/HCPCS: 96372; 99212; Q5106 ==

== ENCOUNTER 2024-10-23 16:17 | Outpatient (AMB) | payer MEDICARE, SELFPAY ==
[2024-10-23 16:18] VITALS: BP 110/71; PULSE 97; O2SAT 90
--- NOTE | 2024-10-23 16:18 | A.OFFVIS_ITS ---
Vital Signs 10/23/24 16:18 Height 5 ft 1 in BP 110/71 Blood Pressure Location Lt brachial Position Sitting Pulse 97 Pulse Source Pulse Oximeter Pulse Oximetry (%) 90 L Oxygen Delivery Method Nasal Cannula Oxygen Flow Rate 2 Intake Visit Reasons: COPD Intake Note: pt is here for follow up and is having issues with her quality of life, she is very lethargic, drowsy, and fell x2 and landed onleft hip in etreme pain. She also has a very large protrusion from vaginal area, and no sensation with the rectum area which prohibits her from cleaning herself. Fleet Director Required: No Allergies ciprofloxacin (From Cipro) Allergy (Severe, Verified 10/23/24 16:47) HIVES/SWELLING, THROAT CLOSES shellfish derived (SHELLFISH DERIVED) Allergy (Intermediate, Verified 10/23/24 16:47) Vomiting NSAIDS (Non-Steroidal Anti-Inflamma Adverse Reaction (Severe, Verified 10/23/24 16:47) Avoid due to kidney disease Medication List - Last Reconciled 10/23/24 by Mayte Cochran MD acetaminophen 650 mg PO Q6H PRN aspirin 81 mg PO DAILY atorvastatin 10 mg PO BEDTIME azithromycin 250 mg PO 3XW 90 days Breo Ellipta 100-25 mcg/dose (fluticasone furoate-vilanterol) 1 ea PO DAILY 90 days NS carvedilol 3.125 mg PO BID cinacalcet 30 mg PO DAILY gabapentin 100 mg PO DAILY PRN hydroxyzine pamoate 100 mg PO BEDTIME PRN ipratropium-albuterol 0.5 mg-3 mg(2.5 mg base)/3 mL 3 mL inhalation Q4-6H PRN levocetirizine 5 mg PO DAILY PRN lorazepam 1 mg PO BID PRN methadone 70 mg PO DAILY prednisone 40 mg (2 x 20 mg) PO DAILY prednisone 5 mg PO Q OTHER DAY 90 days torsemide 20 mg PO BID Do you need a note to return to daycare/school/sports/work: No HPI HPI COPD: Details: IMTIAZ IS BROUGHT INTO THE OFFICE TODAY BY HER BOYFRIEND, WHO LIVES WITH HER SHE HAS BEEN FALLING DOWN IN THE LAST FEW DAYS. AT LEAST 2 OR 3 TIMES AND HAS HURT HER RIGHT HIP, SHE IS HAVING CONSTANT DISCOMFORT HAS DIFFICULTY IN STANDING AND WALKING. AND FEELS UNCOMFORTABLE EVEN IN THE WHEELCHAIR. SHE HAS ADVANCED CHRONIC OBSTRUCTIVE PULMONARY DISEASE WHICH IS BEING TREATED WITH MEDS. SHE HAS HISTORY OF OPIOIDS ABUSE AND CURRENTLY ON METHADONE 70 MG DAILY FOR[facility]LY [facility] Medical History (Updated 10/23/24 @ 16:55 by Mayte Cochran MD) Hip injury Back injury Respiratory failure with hypoxia Dyslipidemia History of lung cancer Hx of bronchitis CKD (chronic kidney disease) stage 4, GFR 15-29 ml/min Morbid obesity COPD (chronic obstructive pulmonary disease) Polysubstance abuse Respiratory failure with hypoxia and hypercapnia Ambulates with cane Seasonal allergies Herpes zoster Osteopenia (~2017) Respiratory failure COVID-19 (~03/2021) Osteoarthritis of ankles, bilateral Olecranon bursitis of left elbow Tubulovillous adenoma of large intestine (~2020) Hx of cardiac arrest (~2015) O2 dependent Methadone maintenance therapy patient History of claustrophobia History of seizure Anxiety and depression HTN (hypertension) Multiple fractures of ribs Anemia in chronic kidney disease Vitamin D deficiency Family history of colon cancer Restrictive lung disease LEO (obstructive sleep apnea) Surgical History Hx of tracheostomy History of esophagogastroduodenoscopy (EGD) (~2021) History of removal of ureteral stent (~2013) History of lung biopsy (~2019) History of colonoscopy (~2020) Umbilical hernia History of laparoscopy (~2012) History of hand surgery History of tubal ligation Family History Father Diabetes mellitus Mother Depression Mental health disorder Maternal Grandfather Colon cancer Sister No problems noted. Son No problems noted. Daughter No problems noted. Daughter No problems noted. Social History Household Members: Significant Other Housing: Unknown / Unable to assess Housing Other:: mobile home Are you a primary career information specialist to a significant other at home: No Do you presently have visiting nurse or other home services: Yes Unable to assess alcohol history related to: Unable to respond Alcohol intake: never Comment: restraints Patient Tobacco Use Status: Former Tobacco user Tobacco use type: Cigarette Years Smoked: 25 yrs e-Cigarette/Vaping Use: Former Use Second Hand Smoke Exposure: No Substance Use Type: Former Substance User and Heroin Advance Directives Date on File: 03/21/21 service: No Current occupational status: unemployed and disabled Cognitive needs: No Hearing needs: No Vision needs: No Review of Systems Const All systems reviewed & are unremarkable except as noted in HPI and below Eyes Reports no additional complaints ENT Reports no additional complaints Card Denies chest pain, Denies irregular heart rhythm and Denies leg edema Resp Reports as per HPI and Reports other (RIGHT-SIDED RIBCAGE PAIN IS NEW DUE TO THE FALL AT HOME) GI Denies no additional complaints Denies no additional complaints Musc Reports abnormal gait (IMPAIRED LOCOMOTION, WALKS SLOW, WITH MINIMAL SUPPORT) and Reports back pain Skin/Breast Reports system reviewed and no additional complaints, except as documented Neuro Reports abnormal gait (IMPAIRED LOCOMOTION, WALKS SLOW, WITH MINIMAL SUPPORT) Psych Reports no additional complaints Physical Exam Vital Signs: Last Vital Signs Pulse 97 10/23/24 16:18 BP 110/71 10/23/24 16:18 Pulse Ox 90 L 10/23/24 16:18 Oxygen Delivery Method Nasal Cannula 10/23/24 16:18 Oxygen Flow Rate 2 10/23/24 16:18 Const General: comfortable, no acute distress, alert, awake and other (WALKS SLOWLY, WITH THE HELP OF A CANE.) Orientation/consciousness: patient oriented x3 HEENT Head: Yes normal to inspection General nose exam: No nasal polyps present and No nasal discharge present Face and sinus: Yes sinuses nontender Mouth: oropharynx normal Teeth and gingiva: other (THROAT IS CLEAR NO THRUSH AND NO EXTRA MUCUS NOTED) Throat: Yes posterior oropharynx normal Eyes General: appearance normal, both eyes and all related structures Neck Neck: Yes normal visual inspection, Yes no lymphadenopathy, Yes trachea midline and Yes no JVD Thyroid: Thyroid normal Chest Chest palpation & inspection: abnormal inspection of the chest (IMTIAZ HAS EXTENSIVE ECCHYMOTIC SPOTS OVER THE BACK, AND CHEST WALL), abnormal palpation of chest wall (TENDER TO TOUCH, ON THE POSTERIOR CHEST ) and no tenderness Resp Other: PERCUSSION NOTE IS RESONANT, BREATH SOUNDS ARE VERY DISTANT BUT EQUAL ON BOTH SIDES. NO WHEEZES OR RHONCHI ARE HEARD TODAY. Cardio Palpation: PMI not normal (PMI IS NOT PALPABLE.) and other Rate: regular rate Rhythm: regular rhythm Heart sounds: no gallops and no murmurs GI Palpation (GI): Soft to palpation, nontender, No hepatosplenomegaly present, no masses and Other GI palpation findings present (ABDOMEN IS OBESE AND PROTUBERANT) Auscultation: normal bowel sounds Back/Spine/Pelvis Other: SHE IS TENDER OVER RIGHT HIP. THERE ARE MULTIPLE ECCHYMOTIC SPOTS OVER THE LOWER BACK Thoracic/Lumbar Spine: thoraco-lumbar ROM limited Skin General skin exam: no rashes or lesions noted Neuro General: patient oriented x3, No gait normal (GAIT IS SLOW AND SLIGHTLY UNSTABLE PATIENT NEEDS A CANE TO WALK) and no focal motor deficits Cranial nerves: Yes CN's II-XII intact bilaterally Extrem General: Yes normal to inspection, Yes no calf tenderness and Yes edema (CHRONIC STASIS EDEMA OF THE LEGS) Psych Appearance: grossly normal and well kempt Speech and movement: Normal speech and movement present Assessment & Plan Assessment & Plan (1) COPD (chronic obstructive pulmonary disease): Comment: PATIENT HAS LONG-STANDING HISTORY OF CHRONIC OBSTRUCTIVE PULMONARY DISEASE PRIMARILY DUE TO HER LONG TIME SMOKING, SHE QUIT EARLIER IN 2022. GETS FREQUENT ACUTE EXACERBATIONS, WHICH ARE DEFINITELY MUCH LESS SINCE SHE IS ON AZITHROMYCIN THERAPY. CURRENTLY SHE IS ON PREDNISONE 5 MG EVERY OTHER DAY, AND SHE ALSO STAYS ON AZITHROMYCIN 3 DAYS A WEEK. Code(s): J44.9 - Chronic obstructive pulmonary disease, unspecified Category: Medical Plan: CONTINUE SAME MEDS BEFORE (2) Acute on chronic respiratory failure with hypoxia and hypercapnia: Comment: This patient has longstanding chronic respiratory failure with hypoxemia and hypercapnia. She has been prescribed BiPAP treatment at home but she has not been able to tolerate. Uses O2 2 L/minute. Today she had cut down warm L/minute to avoid hypercapnia but O2 sat was in mid. 80s so I instructed her to use up to 2 L/minute to keep O2 sat 89 to 91% Code(s): J96.21 - Acute and chronic respiratory failure with hypoxia; J96.22 - Acute and chronic respiratory failure with hypercapnia Category: Medical Plan: CONTINUE O2 2 L/MINUTE (3) Back injury: Comment: PATIENT HAS FALLEN DOWN ABOUT 2-3 TIMES. SHE HAS LOT OF PAIN ACROSS THE LOWER BACK AND IN BOTH HIPS. Code(s): S39.92XA - Unspecified injury of lower back, initial encounter Category: Medical Plan: PATIENT NEEDS TO GO TO THE EMERGENCY ROOM AND BE EVALUATED FOR FRACTURE SPINE AND FRACTURE HIPS (4) Hip injury: Comment: DUE TO FALLING DOWN 2-3 TIMES SHE IS HAVING PAIN IN THE RIGHT HIP AND HAS DIFFICULTY IN STANDING AND WALKING. Code(s): S79.919A - Unspecified injury of unspecified hip, initial encounter Category: Medical Plan: NEEDS TO GO TO THE EMERGENCY ROOM FOR EVALUATION WITH X-RAYS AND SHE MAY NEED HOSPITALIZATION. Plan PATIENT IS TRANSPORTED TO THE EMERGENCY ROOM. Coding Level of Care Code Est Pt Level 3 (07942) Diagnoses COPD (chronic obstructive pulmonary disease) J44.9 Acute on chronic respiratory failure with hypoxia and hypercapnia J96.21; J96.22 Back injury S39.92XA Hip injury S79.919A
--- OUTSIDE RECORDS SUMMARY | 2024-10-23 21:23 | XMS_ITS | Clinical Summary ---
Author Organization [facility] Address [address] [place] [address] [address] [place] [address] Phone Care Team Providers Care Strategic Account Executive Name Role Phone Angel Castano MD Primary Care Provider [phone]- [phone] Allergies Active Allergy Reactions Criticality Noted Date [...] stage I through stage IV, or unspecified [id number] Units IJ Every 14 days 11/22/2020 Active [...] Medicaid [place] Care Teams Strategic Account Executive Relationship Specialty Start Date End Date Angel Castano MD [address] [place] [id number] PCP - General 02/19/20
--- OUTSIDE RECORDS SUMMARY | 2024-10-23 21:23 | XMS_ITS | Clinical Summary ---
Author Organization [facility] Address [address] [place] [address] Care Team Providers Care Door Builder Name Role Phone Ref, Has No Pcp [...] age to complete this topic Insurance MEDICARE [facility] Care Teams Door Builder Relationship Specialty Start Date End Date Ref, Has No Pcp Or DO NOT EDIT THIS RECORD VIA PROVIDER ON THE FLY PCP - General Drug Safety Specialist 06/10/21
--- OUTSIDE RECORDS SUMMARY | 2024-10-23 21:23 | XMS_ITS | Clinical Summary ---
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 HTN (hypertension) 01/31/2024 Chronic back pain 01/31/2024 Lung cancer, middle lobe ([facility] V24, [facility] V 28) 12/29/2023 Cancer Staging:Clinical:Stage IB(cT2a, cN0, cM0) - Signed by Lonnie Mercer MD on 12/29/2023 Anemia in chronic kidney disease 08/10/2022 Chronic kidney disease, stag e 4 (severe) ([facility] V24, [facility] V28) 08/10/2022 Hypertensive renal [...] Comments OTHER SURGICAL HISTORY - 1989 PROCEDURE: AR CAUTERY CERVIX CRYOCAUTERY INITIAL/REPEAT; COMMENT: for abnormal pap OTHER SURGICAL HISTORY PROCEDURE: AR LIG/TRNSXJ FLP TUBE ABDL/VAG APPR UNI/BI OTHER SURGICAL HISTORY 2012 PROCEDURE: AR EXPLORATORY LAPAROTOMY CELIOTOMY W/WO BIOPSY SPX; COMMENT: [...] Insurance [place] - [place] MED[place]ARE Care Teams Surgical Appliances Salesperson Relationship Specialty Start Date End Date Valerie Castano MD [address] [facility] [place] [address] PCP - General 05/21/10
--- OUTSIDE RECORDS SUMMARY | 2024-10-23 21:23 | XMS_ITS | Encounter Summary ---
Author Organization [facility] Address [address] [place] [address] Phone Care Team Providers Care Transition Specialist Name Role Phone Angel Castano MD Primary Care Provider [phone]- [phone] Encounter Details Date Type Department Care Team (Late st Contact Info) Description 05/04/2022 Telephone [facility] [address] [place] [phone] Kitty Menezes [place] Social History Tobacco Use [...] on filedocumented in this encounter Care Teams Transition Specialist Relationship Specialty Start Date End Date Angel Castano MD [facility] [place] [id number] PCP - General 02/19/20 documented as of this encounter
== END 2024-10-23 16:47 | disposition home or self-care (01) ==
PROVIDERS: PCP Internal Medicine; Visit Provider Internal Medicine
DX: J44.9 Chronic obstructive pulmonary disease, unspecified (principal); J96.21 Acute and chronic respiratory failure with hypoxia; J96.22 Acute and chronic respiratory failure with hypercapnia; S39.92XA Unspecified injury of lower back, initial encounter; S79.919A Unspecified injury of unspecified hip, initial encounter
CPT/HCPCS: 99213

== ENCOUNTER → 2024-10-23 16:17 | Outpatient (BNVA) | payer MEDICARE, SELFPAY | PROVIDERS: PCP Internal Medicine; Visit Provider Internal Medicine | DX: J44.9 Chronic obstructive pulmonary disease, unspecified (principal); J96.21 Acute and chronic respiratory failure with hypoxia; J96.22 Acute and chronic respiratory failure with hypercapnia; S79.919A Unspecified injury of unspecified hip, initial encounter; S39.92XA Unspecified injury of lower back, initial encounter; Z87.891 Personal history of nicotine dependence | CPT/HCPCS: 99212 ==

== ENCOUNTER 2024-10-23 16:54 | Inpatient (IN) | payer MEDICARE, SELFPAY ==
--- NOTE | ~2024-10-23 | CT_ITS ---
CLINICAL HISTORY: fall with head strike CT head without contrast Comparison: CT/SR - CT HEAD/BRAIN WO IV CON - 09/05/24 19:44 EDT Findings: No intra-axial mass, midline shift, hydrocephalus, or acute hemorrhage. No significant atrophy-like change or white matter disease. There is no sinus or mastoid fluid. The orbits are unremarkable. There is no acute fracture. IMPRESSION: No skull fracture or intracranial hemorrhage. This document has been electronically signed by: Steffanie Mendez MD on 10/23/2024 19:20:54
--- NOTE | ~2024-10-23 | CT_ITS ---
CLINICAL HISTORY: trauma CT chest without contrast Comparison: CT/SR - CT CHEST WITHOUT IV CONTRAST - 12/13/22 01:22 EST Findings: Heart is enlarged in size. There is no pericardial effusion. Coronary artery calcifications are present. Subcentimeter hypodense left thyroid nodule is present. There is no mediastinal hematoma. 8 mm right upper lobe nodule (axial image 28 of series 5) and 4 mm left lower lobe nodule (axial image 33) are present. Mild linear atelectasis is seen in bilateral lower lobes. There is no pneumothorax or hemothorax. Remote right 5th-7th rib fractures are present. Severe degenerative changes are seen in the spine. There is mild loss of vertebral body height at T10 and T11, similar to prior exam. No acute osseous abnormality is identified. Please refer to CT abdomen and pelvis of same day for abdominal findings. IMPRESSION: 1. No CT evidence of acute traumatic injury in the chest. 2. 8 mm right upper lobe nodule and 4 mm left lower lobe nodule. According to Fleischner society guidelines, recommend follow-up CT chest in 3-6 months. 3. Cardiomegaly with coronary artery calcifications. This document has been electronically signed by: Nida Dc on 10/24/2024 05:25:29
--- NOTE | ~2024-10-23 | CT_ITS ---
CLINICAL HISTORY: fall with head strike, neck pain CT cervical spine without contrast Comparison: None provided Findings: Grade 1 anterolisthesis of C3 on C4 and C4 on C5, most likely degenerative. Multilevel degenerative disc disease and facet osteoarthritis. Mild central canal stenosis at C4-5 and C5-6. No acute fractures or dislocations. Visualized intracranial contents are unremarkable. Possible 2 cm nodule arising from the left lobe of the thyroid gland. There are mild emphysematous changes at the lung apices. IMPRESSION: 1. No cervical spine fracture. 2. Possible nodule within the left lobe of the thyroid gland. This could be further evaluated with ultrasound. This document has been electronically signed by: Steffanie Mendez MD on 10/23/2024 19:16:19
--- NOTE | ~2024-10-23 | XR_ITS ---
CLINICAL HISTORY: fall, hip pain Three-view pelvis and left hip Comparison: CR - XR PELVIS 1-2V - 09/06/24 02:22 EDT Findings: The bones are intact. No significant arthritic change. The soft tissues are unremarkable. IMPRESSION: No acute findings. This document has been electronically signed by: Steffanie Mendez MD on 10/23/2024 17:57:27
--- NOTE | ~2024-10-23 | CT_ITS ---
CLINICAL HISTORY: trauma left posterior ecchymosis CT abdomen and pelvis without contrast Comparison: None provided Findings: 1.6 cm exophytic right renal cyst is present. Several exophytic left renal cysts are seen measuring up to 3.0 cm. The noncontrast appearance of the liver, gallbladder, pancreas, spleen, and bilateral adrenal glands is within normal limits. There is no evidence of bowel injury. There is no pneumoperitoneum or ascites. Fat containing ventral abdominal wall hernia and umbilical hernia are present. 1.9 cm cyst is seen anterior to the vagina. The urinary bladder appears normal. Partially visualized 9.2 x 4.0 cm subcutaneous hematoma is seen in the left lateral hip. No acute osseous abnormality is identified. IMPRESSION: 1. Partially visualized 9.2 x 4.0 cm subcutaneous hematoma in the left lateral hip. No acute fracture is identified. 2. No evidence of visceral organ injury. 3. Fat containing umbilical and ventral abdominal wall hernias. This document has been electronically signed by: Nida Dc on 10/24/2024 05:36:29
--- NOTE | 2024-10-23 17:18 | ED.GENADULT ---
HPI - General Adult General Chief complaint: Fall Stated complaint: lt hip injury, fell Time Seen by Provider: 10/23/24 23:25 Source: patient Mode of arrival: ambulatory Limitations: altered mental status History of Present Illness ED Provider: Dr. Magallon HPI narrative: 64-year-old female we will currently restore failure on 2 L nasal cannula, COPD, CKD, dyslipidemia, hypertension , polysubstance abuse presented to ER today for evaluation of multiple fall and left hip pain. Patient stated that she feels weaker usual him more fatigued than normal. She stated that she has been falling often. She fell 2 days ago previously. Denies any head injury or loss of consciousness. Patient is unsure what exactly is going on with her. Therefore she presents to the ER for further evaluation. Her main complaint is pain in her left thigh area. Related Data Home Medications ?Medication ?Instructions ?Recorded ?Confirmed acetaminophen 325 mg tablet 650 mg PO Q6H PRN Pain 07/24/21 10/24/24 methadone 10 mg/mL oral concentrate 70 mg PO DAILY 05/22/22 10/23/24 hydroxyzine pamoate 100 mg capsule 100 mg PO BEDTIME PRN insomnia 12/13/22 10/24/24 lorazepam 1 mg tablet 1 mg PO BID PRN Anxiety 05/25/23 10/24/24 prednisone 5 mg tablet 5 mg PO DAILY asthma 10/24/24 10/24/24 Previous Rx's ?Medication ?Instructions ?Recorded aspirin 81 mg tablet,delayed 81 mg PO DAILY #30 tabs 12/11/19 release cinacalcet 30 mg tablet 30 mg PO DAILY #30 tabs 04/18/24 gabapentin 100 mg capsule 100 mg PO DAILY PRN for pain #30 04/23/24 caps Breo Ellipta 100 mcg-25 mcg/dose 1 ea PO DAILY copd 90 days #3 ea 07/12/24 powder for inhalation (fluticasone furoate-vilanterol) torsemide 20 mg tablet 20 mg PO BID #180 tabs 07/31/24 azithromycin 250 mg tablet 250 mg PO 3XW copd/BRONCHITIS 90 08/03/24 days #39 tabs carvedilol 3.125 mg tablet 3.125 mg PO BID #180 tabs 08/21/24 levocetirizine 5 mg tablet 5 mg PO DAILY PRN allergy symptoms 09/14/24 #30 tabs ipratropium 0.5 mg-albuterol 3 mg 3 ml inhalation Q4-6H PRN 10/12/24 (2.5 mg base)/3 mL nebulization shortness of breath or wheezing soln #180 mL atorvastatin 10 mg tablet 10 mg PO BEDTIME #90 tabs 10/23/24 Allergies Allergy/AdvReac Type Severity Reaction Status Date / Time ciprofloxacin (From Cipro) Allergy Severe HIVES/SWELLING, Verified 10/23/24 17:23 THROAT CLOSES shellfish derived (SHELLFISH Allergy Intermediate Vomiting Verified 10/23/24 17:23 DERIVED) NSAIDS (Non-Steroidal AdvReac Severe Avoid due Verified 10/23/24 17:23 Anti-Inflamma to kidney disease Review of Systems Review of Systems: Pertinent review of systems as mentioned in HPI. All other system otherwise negative. [facility] Past Medical History [facility] Narrative: Medical history as mentioned in HPI Medical History (Updated 10/24/24 @ 08:51 by Aissatou Bynum MD) Hip injury Back injury Respiratory failure with hypoxia Dyslipidemia History of lung cancer Hx of bronchitis CKD (chronic kidney disease) stage 4, GFR 15-29 ml/min Morbid obesity COPD (chronic obstructive pulmonary disease) Polysubstance abuse Respiratory failure with hypoxia and hypercapnia Ambulates with cane Seasonal allergies Herpes zoster Osteopenia (~2017) Respiratory failure COVID-19 (~03/2021) Osteoarthritis of ankles, bilateral Olecranon bursitis of left elbow Tubulovillous adenoma of large intestine (~2020) Hx of cardiac arrest (~2015) O2 dependent Methadone maintenance therapy patient History of claustrophobia History of seizure Anxiety and depression HTN (hypertension) Multiple fractures of ribs Anemia in chronic kidney disease Vitamin D deficiency Family history of colon cancer Restrictive lung disease LEO (obstructive sleep apnea) Surgical History Hx of tracheostomy History of esophagogastroduodenoscopy (EGD) (~2021) History of removal of ureteral stent (~2013) History of lung biopsy (~2019) History of colonoscopy (~2020) Umbilical hernia History of laparoscopy (~2012) History of hand surgery History of tubal ligation Family History Family History Father Diabetes mellitus Mother Depression Mental health disorder Maternal Grandfather Colon cancer Sister No problems noted. Son No problems noted. Daughter No problems noted. Daughter No problems noted. Social History Social History Household Members: Significant Other Housing: Other Housing Other:: Mobile Home Are you a primary career services officer to a significant other at home: No Do you presently have visiting nurse or other home services: Yes ([facility]) Unable to assess alcohol history related to: Unable to respond Alcohol intake: never Comment: restraints Patient Tobacco Use Status: Former Tobacco user Tobacco use type: Cigarette Years Smoked: 25 yrs Smoked in Last 30 Days: No e-Cigarette/Vaping Use: Former Use Second Hand Smoke Exposure: No Use of substances other than those prescribed or required for medical reasons: No Substance Use Type: Former Substance User and Heroin Have you been hit, kicked, punched, or otherwise hurt by someone within the past year? If so, by whom?: No Do you feel safe in your current relationship?: Yes Is there a partner from a previous relationship who is making you feel unsafe now?: No Are you made to feel afraid or neglected: No Spiritual Healthcare Practices: none per patient Confucianism Healthcare Practices: none per patient Cultural Healthcare Practices: none per patient Advance Directives: Yes Advance Directives Information Provided: No Advance Directives on File: Yes Advance Directives Date on File: 03/21/21 Do you have a plan to hurt others: No Plan Recently lost weight without trying: No Eating poorly because of decreased appetite: No Nutrition Risks: No Nutritional Risk Patient : No : No Poor oral hygiene: Yes service: No Current occupational status: unemployed and disabled Cognitive needs: No Hearing needs: No Vision needs: No Physical Exam ED Exam Exam: General: appears encephalopathic Head: Normacephalic, atraumatic ENT: oral mucosa moist, neck supple, no tracheal deviation Cardiovascular: regular rate, regular rhythm, no murmurs, rubbing, gallops, no chest wall tenderness Respiratory: CTAB, no wheeze, rales, rhonchi Gastrointestinal: Soft, non distended, non tender, non guarding, no ecchymosis Extremities: Patient does have venous stasis change in her lower extremities bilaterally with some edema Neurological: Awake and alert, responsive to verbal stimuli, no facial droop noted Skin: The patient does have ecchymosis in the left posterior thorax, down to her left thigh area. This is likely secondary to her trauma. Psychiatric: Appropriate mood and thoughts Vital Signs: Vital Signs - 24 hr 10/23/24 17:19 10/23/24 23:12 10/24/24 01:46 Temperature 98.5 F 99.1 F Pulse Rate 97 105 H 97 Respiratory Rate 20 14 12 Blood Pressure 125/57 L 146/64 H 115/49 L Pulse Oximetry 92 97 99 Oxygen Delivery Method Nasal Cannula Nasal Cannula Nasal Cannula Oxygen Flow Rate 2 2 10/24/24 03:05 10/24/24 03:16 10/24/24 04:07 Temperature 97.5 F Pulse Rate 88 86 Respiratory Rate 20 12 12 Blood Pressure 112/53 L 117/54 L Pulse Oximetry 94 96 Oxygen Delivery Method BiPAP BiPAP Oxygen Flow Rate 10/24/24 04:33 10/24/24 04:52 10/24/24 06:13 Temperature 97.6 F 97.7 F 97.7 F Pulse Rate 78 81 83 Respiratory Rate 12 12 13 Blood Pressure 116/53 L 123/59 L 135/60 Pulse Oximetry 93 Oxygen Delivery Method BiPAP Oxygen Flow Rate 10/24/24 06:18 10/24/24 06:30 10/24/24 06:50 Temperature 97.5 F 97.8 F 98.0 F Pulse Rate 88 87 88 Respiratory Rate 15 13 19 Blood Pressure 137/68 142/69 H 118/63 Pulse Oximetry Oxygen Delivery Method Oxygen Flow Rate 10/24/24 07:45 10/24/24 08:27 Temperature Pulse Rate 85 83 Respiratory Rate 14 12 Blood Pressure 110/64 124/55 L Pulse Oximetry 100 100 Oxygen Delivery Method Nasal Cannula Nasal Cannula Oxygen Flow Rate 2 2 BMI result Body Mass Index 43.5 Course Course Course Narrative: This is a rapid medical exam performed by Jeremiah Ramos NP: Additional HPI, ROS, PE not included below will be deferred to primary provider. Patient is a 64-year-old female presenting to the ED with complaint of left hip and neck pain after a fall 2 days ago. States she hasn't been sleeping well, recently lost her son and her mother. Unsure how she fell. Plan: CT head and c-spine, xray Medications Administered Generic Name Dose Route Start Last Admin Trade Name Freq PRN Reason Stop Dose Admin Albuterol/Ipratropium 3 ml 10/24/24 09:00 10/24/24 11:17 Albuterol/Iprat 2.5/0.5mg 3 Ml Ampul.Neb INHALE 3 ml Q4H ANALISA Administration Ceftriaxone Sodium 1 gm 10/24/24 09:00 10/24/24 10:01 Ceftriaxone Sodium 1 Gm Vial IVPUSH 1 gm Q12H ANALISA Administration Heparin Sodium (Porcine) 5,000 unit 10/24/24 09:00 10/24/24 10:02 Heparin Sodium,Porcine 5,000 Unit/Ml Vial SUBCUT 5,000 unit Q8H ANALISA Administration Methylprednisolone Sodium Succinate 40 mg 10/24/24 09:00 10/24/24 10:04 Methylprednisolone Sod Succ 40 Mg/Ml Vial IVPUSH 40 mg DAILY ANALISA Administration Discontinued Medications Generic Name Dose Route Start Last Admin Trade Name Alfq PRN Reason Stop Dose Admin Acetaminophen 975 mg 10/24/24 00:42 10/24/24 01:30 Acetaminophen 325 Mg Tablet PO 10/24/24 00:43 975 mg ONCE ONE Administration Acetaminophen 650 mg 10/24/24 14:46 10/24/24 15:16 Acetaminophen 325 Mg Tablet PO 10/24/24 14:47 650 mg ONCE ONE Administration Sodium Chloride 1,000 mls @ 999 mls/hr 10/23/24 23:45 10/24/24 00:13 Ns IV 10/24/24 00:45 Not Given .Q1H1M ANALISA Lactated Ringer's 1,000 mls @ 500 mls/hr 10/24/24 00:45 10/24/24 03:43 Lr IV 10/24/24 02:44 Infused .Q2H ANALISA Infusion Azithromycin 500 mg/ Sodium 250 mls @ 125 mls/hr 10/24/24 08:54 10/24/24 12:12 Chloride IV 10/24/24 10:53 Infused DAILY ONE Infusion Lidocaine 1 patch 10/24/24 00:42 10/24/24 01:30 Lidocaine 4 % Patch Adh..Patch TRANSDERMA 10/24/24 00:43 1 patch ONCE ONE Administration Protocol Oxycodone HCl 10 mg 10/24/24 14:42 10/24/24 15:17 Oxycodone Hcl Er 10 Mg Tab.Er.12h PO 10/24/24 14:43 10 mg ONCE ONE Administration Medical Decision Making Medical Decision Making MDM Narrative: 64-year-old female history of chronic respiratory failure history of COPD, obstructive apnea, polysubstance use, CKD presenting to ER today for evaluation of altered mentation and also left hip pain from the fall. On exam patient does have ecchymosis from her multiple fall. She does have extensive ecchymosis in the left posterior thorax. We will plan to obtain CT imaging of the chest abdomen and pelvis. We will plan to perform his noncontrast as patient does have significant CKD GFR and 11. Review patient's lab work she does have some leukocytosis 12.5. She does have some anemia at 6.9. We will plan to consent patient for blood transfusion. Type and screen will be sent off for the patient as well. This is may be secondary to her chronic kidney disease. I did obtain VBG due to her history of hypercapnic respiratory failure. Patient's pH is 7.21. She does have elevated CO2 as 58. Patient's bicarb is 19. I suspect her primary driven cause of her acidosis is respiratory in nature. Her creatinine is 4.89. Which is around her baseline status. However her potassium is stable at 5.1. Lactic acid was obtained. UA did show some trace leuk esterase. Patient's hip x-ray did not show any signs of fracture. CT head and CT C-spine is negative. At this time patient is pending the completion of her trauma imaging with CT chest and CT abdomen and pelvis. Patient will be placed on BiPAP for her respiratory acidosis. Patient is placed on BiPAP secondary hypercapnea in setting of LEO and COPD. NOT SEPSIS. Suspect her altered mentation may be secondary to hypercapnia. Patient will be signed out to Dr. Aparicio 7:35 AM 10/24/2024 (Dr. Gaby Aparicio, D.O.) patient remains slightly altered, pulling off her BiPAP and refusing to put it back on. Repeating a blood gas. She has a normal oxygen level on nasal cannula oxygen now. Her CT shows evidence of a hematoma in the left hip. The hematoma is not expanding and she has no tenderness on my exam. She is receiving a blood transfusion. Case discussed with telephonic nurse who agrees with the with plan for admission. If her blood gas does not improve, she may need intubation. Admitted to the ICU in critical condition. Differential Diagnosis Differential Diagnoses: The differential diagnosis associated with the presentation includes Retroperitoneal bleed, ecchymosis, hypercapnia, respiratory failure, UTI Admission/Observation Consideration of admission/observation: Escalation of care including admission/observation considered Lab Data MDM Lab Attestation statement: I reviewed the patient's lab results. 10/24/24 01:29 10/24/24 01:29 Labs: Lab Results 10/24/24 10/24/24 10/24/24 Range/Units 01:29 01:37 01:47 WBC 12.5 H (4.8-10.8) X10*3/uL RBC 2.44 L D (4.20-5.50) X10*6/uL Hgb 6.9 L* D (12.0-16.0) g/dl Hct 23.3 L D (37.0-47.0) % MCV 95.5 (80.0-98.0) fL MCH 28.3 (27.0-33.0) pg MCHC 29.6 L (31.0-35.0) g/dl RDW 14.7 (11.0-16.0) % Plt Count 283 (160-400) X10*3/uL MPV 9.0 L (9.4-12.3) fL Immature Gran % (Auto) 1.0 H (0.0-0.4) % Neut % (Auto) 74.9 H (45-73) % Lymph % (Auto) 10.2 L (20-40) % [place] % (Auto) 13.7 H (2-11) % Eos % (Auto) 0.0 (0-4) % Baso % (Auto) 0.2 (0-2) % Lymph # (Auto) 1.3 (1.2-4.9) X10*3/uL [place] # (Auto) 1.7 H (0.1-1.2) X10*3/uL Eos # (Auto) 0.0 (0.0-0.4) X10*3/uL Baso # (Auto) 0.0 (0.0-0.2) X10*3/uL Abs Immat Gran (auto) 0.13 H (0.00-0.03) X10*3/uL Absolute Neuts (auto) 9.4 H (2.0-8.3) x10*3/uL Absolute Nucleated RBC 0.130 H (0.0-0.012) X10*3/uL Nucleated RBC % (auto) 1.0 H (0.0-0.2) /100WBC Smear Tech's Comments VERIFIED VBG pH 7.21 L (7.32-7.43) VBG pCO2 58 mmHg VBG pO2 115 mmHg VBG HCO3 24 (22-26) mmol/L VBG O2 Saturation TNP VBG Base Excess -3.6 mmol/L Sodium 145 (135-145) mmol/L Potassium 5.1 (3.3-5.1) mmol/L Chloride 116 H (96-108) mmol/L Carbon Dioxide 19 L (22-29) mmol/L Anion Gap 15 (12-20) BUN 43 H (9-16) mg/dL Creatinine 4.89 H* (0.5-1.4) mg/dL Estim Creat Clear Calc 13.2 Estimated GFR 9 Random Glucose 100 (60-115) mg/dL Lactic Acid (0.5-2.0) mmol/L Calcium 8.3 L D (8.4-10.2) mg/dL Total Bilirubin 0.2 (0.0-1.0) mg/dL AST 27 (5-31) U/L ALT 12 (0-31) U/L Alkaline Phosphatase 95 (39-117) U/L Ammonia (13-55) umol/L Total Protein 5.8 L (6.5-8.0) g/dL Albumin 3.3 L (3.5-5.0) g/dL Beta-Hydroxybutyrate 0.09 (0.02-0.27) mmol/L TSH 1.00 (0.32-4.0) uIU/mL Urine Color Yellow Urine Appearance Clear Urine pH 6.0 (5.0-9.0) Ur Specific [place] 1.015 (1.005-1.025) Urine Protein 300 (3+) H (Neg-Trace) mg/dL Urine Glucose (UA) Negative (Negative) mg/dL Urine Ketones Negative (Negative) mg/dL Urine Blood Trace H (Negative) Urine Nitrite Negative (Negative) Ur Leukocyte Esterase Trace H (Negative) Urine RBC 0-2 (0-2) /HPF Urine WBC 6-10 H (0-5) /HPF Ur Squamous Epith Cells 6-10 (0-2) /HPF Urine Bacteria 1+ (None Seen) Hyaline Casts 0-2 (0-2) /LPF Urine Opiates Screen POSITIVE H (Not Detect) Ur Buprenorphine Scrn Not Detected (Not Detect) ng/mL Ur Oxycodone Screen Positive H (Not Detect) ng/mL Urine Methadone Screen Positive H (Not Detect) ng/mL Urine Fentanyl Screen POSITIVE H (Not Detect) Ur Barbiturates Screen Not Detected (Not Detect) Ur Phencyclidine Scrn Not Detected (Not Detect) Ur Amphetamines Screen Not Detected (Not Detect) U Benzodiazepines Scrn Not Detected (Not Detect) Urine Cocaine Screen POSITIVE H (Not Detect) U Marijuana (THC) Screen Not Detected (Not Detect) Ethyl Alcohol < 10 mg/dL Blood Type Antibody Screen Crossmatch (AHG) 10/24/24 10/24/24 10/24/24 Range/Units 02:02 02:55 08:28 WBC (4.8-10.8) X10*3/uL RBC (4.20-5.50) X10*6/uL Hgb (12.0-16.0) g/dl Hct (37.0-47.0) % MCV (80.0-98.0) fL MCH (27.0-33.0) pg MCHC (31.0-35.0) g/dl RDW (11.0-16.0) % Plt Count (160-400) X10*3/uL MPV (9.4-12.3) fL Immature Gran % (Auto) (0.0-0.4) % Neut % (Auto) (45-73) % Lymph % (Auto) (20-40) % [place] % (Auto) (2-11) % Eos % (Auto) (0-4) % Baso % (Auto) (0-2) % Lymph # (Auto) (1.2-4.9) X10*3/uL [place] # (Auto) (0.1-1.2) X10*3/uL Eos # (Auto) (0.0-0.4) X10*3/uL Baso # (Auto) (0.0-0.2) X10*3/uL Abs Immat Gran (auto) (0.00-0.03) X10*3/uL Absolute Neuts (auto) (2.0-8.3) x10*3/uL Absolute Nucleated RBC (0.0-0.012) X10*3/uL Nucleated RBC % (auto) (0.0-0.2) /100WBC Smear Tech's Comments VBG pH 7.22 L (7.32-7.43) VBG pCO2 53 mmHg VBG pO2 100 mmHg VBG HCO3 22 (22-26) mmol/L VBG O2 Saturation 99.0 VBG Base Excess -5.2 mmol/L Sodium (135-145) mmol/L Potassium (3.3-5.1) mmol/L Chloride (96-108) mmol/L Carbon Dioxide (22-29) mmol/L Anion Gap (12-20) BUN (9-16) mg/dL Creatinine (0.5-1.4) mg/dL Estim Creat Clear Calc Estimated GFR Random Glucose (60-115) mg/dL Lactic Acid 0.4 L (0.5-2.0) mmol/L Calcium (8.4-10.2) mg/dL Total Bilirubin (0.0-1.0) mg/dL AST (5-31) U/L ALT (0-31) U/L Alkaline Phosphatase (39-117) U/L Ammonia 28 (13-55) umol/L Total Protein (6.5-8.0) g/dL Albumin (3.5-5.0) g/dL Beta-Hydroxybutyrate (0.02-0.27) mmol/L TSH (0.32-4.0) uIU/mL Urine Color Urine Appearance Urine pH (5.0-9.0) Ur Specific [place] (1.005-1.025) Urine Protein (Neg-Trace) mg/dL Urine Glucose (UA) (Negative) mg/dL Urine Ketones (Negative) mg/dL Urine Blood (Negative) Urine Nitrite (Negative) Ur Leukocyte Esterase (Negative) Urine RBC (0-2) /HPF Urine WBC (0-5) /HPF Ur Squamous Epith Cells (0-2) /HPF Urine Bacteria (None Seen) Hyaline Casts (0-2) /LPF Urine Opiates Screen (Not Detect) Ur Buprenorphine Scrn (Not Detect) ng/mL Ur Oxycodone Screen (Not Detect) ng/mL Urine Methadone Screen (Not Detect) ng/mL Urine Fentanyl Screen (Not Detect) Ur Barbiturates Screen (Not Detect) Ur Phencyclidine Scrn (Not Detect) Ur Amphetamines Screen (Not Detect) U Benzodiazepines Scrn (Not Detect) Urine Cocaine Screen (Not Detect) U Marijuana (THC) Screen (Not Detect) Ethyl Alcohol mg/dL Blood Type O Negative Antibody Screen NEGATIVE Crossmatch (AHG) See Detail Independent Interpretation I performed an independent interpretation of an: CT Scan Radiology Impression Discussion of test interpretation with radiology: I have reviewed the radiologist's reading. Radiologist Impression: CT abdomen and pelvis without contrast Comparison: None provided Findings: 1.6 cm exophytic right renal cyst is present. Several exophytic left renal cysts are seen measuring up to 3.0 cm. The noncontrast appearance of the liver, gallbladder, pancreas, spleen, and bilateral adrenal glands is within normal limits. There is no evidence of bowel injury. There is no pneumoperitoneum or ascites. Fat containing ventral abdominal wall hernia and umbilical hernia are present. 1.9 cm cyst is seen anterior to the vagina. The urinary bladder appears normal. Partially visualized 9.2 x 4.0 cm subcutaneous hematoma is seen in the left lateral hip. No acute osseous abnormality is identified. IMPRESSION: 1. Partially visualized 9.2 x 4.0 cm subcutaneous hematoma in the left lateral hip. No acute fracture is identified. 2. No evidence of visceral organ injury. 3. Fat containing umbilical and ventral abdominal wall hernias. Chronic Conditions CKD, COPD, chronic respiratory failure Social Determinants POlysubstance abuse Critical Care Time Critical Care Time Critical Care Time: Yes Total Critical Care Time: 50 Attestation: Time is exclusive of separately billable procedures. Time includes: direct patient care, patient reassessment, coordination of patient care, interpretation of data (laboratory data, pulse oximetry, arterial blood gases and chest xrays), review of patient's medical records, medical consultation and documentation of patient care. Procedures excluded from critical care time: central intravenous line placement and electrocardiography. Discharge Plan Discharge Clinical Impression: Acute hypercapnic respiratory failure, Acute respiratory acidosis, Ecchymosis, Acute on chronic anemia, Falls frequently, Polysubstance dependence including opioid type drug with complication, continuous use CKD (chronic kidney disease) Qualifiers: Chronic kidney disease stage: stage 5 (GFR < 15), not on chronic dialysis Qualified Code(s): N18.5 - Chronic kidney disease, stage 5 Patient Disposition: Admitted As Inpatient Interventions: Admission Worksheet (ED) Last Done: 10/24/24 10:19 Discharge Date/Time: 10/24/24 10:19
[2024-10-23 17:19] VITALS: BP 125/57; PULSE 97; RESP 20; TEMP 36.9; O2SAT 92; BMI 43.5
[2024-10-23 23:12] VITALS: BP 146/64; PULSE 105; RESP 14; TEMP 37.3; O2SAT 97
--- NOTE | 2024-10-23 23:31 | ECG_ITS ---
Test Reason : HYPERKALEMIA Blood Pressure : */* mmHG Vent. Rate : 105 BPM Atrial Rate : 105 BPM P-R Int : 158 ms QRS Dur : 86 ms QT Int : 326 ms P-R-T Axes : 61 60 44 degrees QTcB Int : 430 ms Sinus tachycardia Otherwise normal ECG When compared with ECG of 05-Sep-2024 18:31, No significant change was found Referred By: Angelique Magallon Electronically Signed By: YUNIOR BARON
[2024-10-24] VITALS (38 sets, daily range): BP systolic 110–178; BP diastolic 49–92; PULSE 78–116; RESP 12–27; TEMP 36.3–36.7; O2SAT 19–100
[2024-10-24] MEDS: Lidocaine 4 % Patch ADH..PATCH 1 PATCH TRANSDERMA ×2 (01:30→21:05)
[2024-10-24 01:35] LABS: Hematocrit 23.3 % (37.0-47.0); Imm Gran Abs Auto 0.13 X10*3/uL (0.00-0.03); Imm Gran Pct Auto 1.0 % (0.0-0.4); Lymphocytes Absolute Auto 1.3 X10*3/uL (1.2-4.9); MANUAL DIFF FLAG SCAN; Mean Corpuscular HGB Conc 29.6 g/dl (31.0-35.0); Mean Corpuscular Hemoglobin 28.3 pg (27.0-33.0); Mean Corpuscular Volume 95.5 fL (80.0-98.0); NRBC Abs Auto 0.130 X10*3/uL (0.0-0.012); Platelet Count 283 X10*3/uL (160-400); Red Blood Count 2.44 X10*6/uL (4.20-5.50); SCAN SMEAR FLAG 1; White Blood Count 12.5 X10*3/uL (4.8-10.8)
[2024-10-24 01:39] LABS: NRBC Pct Auto 1.0 /100WBC (0.0-0.2)
[2024-10-24 01:40] LABS: VBG HCO3 24 mmol/L (22-26)
[2024-10-24 01:40] LABS: Venous Blood Gas Refer to POC result
[2024-10-24] MEDS: Lactated Ringers 1,000 ML 500 ML IV (01:42)
[2024-10-24 01:43] LABS: Hemoglobin 6.9 g/dl (12.0-16.0)
[2024-10-24 01:53] LABS: Appearance Urine Clear; Glucose Urine UA Negative (Negative); PH 6.0 (5.0-9.0); Specific Gravity - Urine 1.015 (1.005-1.025); UMIC TRIGGER UA YES
[2024-10-24 02:03] LABS: Alanine Aminotransferase 12 U/L (0-31); Albumin Level 3.3 g/dL (3.5-5.0); Alkaline Phosphatase 95 U/L (39-117); Anion Gap 15 (12-20); Aspartate Amino Transferase 27 U/L (5-31); Blood Urea Nitrogen 43 mg/dL (9-16); Calcium 8.3 mg/dL (8.4-10.2); Carbon Dioxide 19 mmol/L (22-29); Chloride 116 mmol/L (96-108); Creatinine Clr Calc Pharmacy 13.2; Estimated Glomerular Filt Rate 9; Potassium 5.1 mmol/L (3.3-5.1); Sodium 145 mmol/L (135-145); Total Protein 5.8 g/dL (6.5-8.0)
--- NOTE | 2024-10-24 02:48 | PC.NURSE ---
patient increasing difficult to stay awake is rousable but falls right back to sleep. MD aware and additional lab work drawn
--- NOTE | 2024-10-24 03:08 | PC.RT ---
placed pt on bipap due to hypercarbia and LEO. pt giving me a hard time about it but decided to wear it. very sleepy but arousable. UTI and needs blood
[2024-10-24 03:12] LABS: Ammonia 28 umol/L (13-55)
[2024-10-24 04:46] LABS: Cannabinoid Screen Urine Not Detected (Not Detect)
--- NOTE | 2024-10-24 06:20 | PC.NURSE ---
patient removed BIPAP at this time stated she can not tolerate any longer, 2L NC placed and provider aware
--- NOTE | 2024-10-24 07:16 | PC.NURSE ---
Accepted care of pt. Pt sleeping VSS on 2 LPM N/C NAD
--- NOTE | 2024-10-24 07:42 | PC.NURSE ---
Pt not easily arousable but when finally awake is A& O. Pt denies complaints- states she is sleepy No wearing BIPAP as she refuses at this time. O2 on 2 LPM Or sat stable. PRBC infusing
[2024-10-24 08:29] LABS: Venous Blood Gas Refer to POC result
[2024-10-24 08:33] LABS: VBG HCO3 22 mmol/L (22-26); VBG O2 % Saturation 99.0 %
--- NOTE | 2024-10-24 08:48 | PM.CCHP ---
History of Present Illness Date of Service: 10/24/24 Attending physician on admission: Aissatou Bynum Chief Complaint: Hypercarbic Respiratory Failure Patient is a 62 Y F with polysubstance use, on methadone, morbid obesity c/b LEO, COPD on 2 L, and prior lung cancer status post radiation, presenting to ED on 10/23 s/p fall; ED trauma work-up demonstrating L hip hematoma, as well as hypercarbic respiratory failure, prompting non-invasive ventilation; upon further history-taking, patient reports in past month, has been walking and falling asleep and falling; patient unsure why this is happening; when prompted, patient reports non-compliance w/ non-invasive due to discomfort, as well as recreational heroin use Review of Systems Review of Systems: Yes all other systems are reviewed and are negative [facility] Past Medical History Medical History (Updated 10/24/24 @ 08:51 by Aissatou Bynum MD) Hip injury Back injury Respiratory failure with hypoxia Dyslipidemia History of lung cancer Hx of bronchitis CKD (chronic kidney disease) stage 4, GFR 15-29 ml/min Morbid obesity COPD (chronic obstructive pulmonary disease) Polysubstance abuse Respiratory failure with hypoxia and hypercapnia Ambulates with cane Seasonal allergies Herpes zoster Osteopenia (~2017) Respiratory failure COVID-19 (~03/2021) Osteoarthritis of ankles, bilateral Olecranon bursitis of left elbow Tubulovillous adenoma of large intestine (~2020) Hx of cardiac arrest (~2015) O2 dependent Methadone maintenance therapy patient History of claustrophobia History of seizure Anxiety and depression HTN (hypertension) Multiple fractures of ribs Anemia in chronic kidney disease Vitamin D deficiency Family history of colon cancer Restrictive lung disease LEO (obstructive sleep apnea) Family History Family History Father Diabetes mellitus Mother Depression Mental health disorder Maternal Grandfather Colon cancer Sister No problems noted. Son No problems noted. Daughter No problems noted. Daughter No problems noted. Surgical History Surgical History Hx of tracheostomy History of esophagogastroduodenoscopy (EGD) (~2021) History of removal of ureteral stent (~2013) History of lung biopsy (~2019) History of colonoscopy (~2020) Umbilical hernia History of laparoscopy (~2012) History of hand surgery History of tubal ligation Social History Social History Household Members: Significant Other Housing: Unknown / Unable to assess Housing Other:: mobile home Are you a primary youth care professional to a significant other at home: No Do you presently have visiting nurse or other home services: Yes Unable to assess alcohol history related to: Unable to respond Alcohol intake: never Comment: restraints Patient Tobacco Use Status: Former Tobacco user Tobacco use type: Cigarette Years Smoked: 25 yrs Smoked in Last 30 Days: No e-Cigarette/Vaping Use: Former Use Second Hand Smoke Exposure: No Use of substances other than those prescribed or required for medical reasons: No Substance Use Type: Former Substance User and Heroin Advance Directives: Yes Advance Directives on File: Yes Advance Directives Date on File: 03/21/21 Patient : No service: No Current occupational status: unemployed and disabled Cognitive needs: No Hearing needs: No Vision needs: No Meds Allergies Allergy/AdvReac Type Severity Reaction Status Date / Time ciprofloxacin (From Cipro) Allergy Severe HIVES/SWELLING, Verified 10/23/24 17:23 THROAT CLOSES shellfish derived (SHELLFISH Allergy Intermediate Vomiting Verified 10/23/24 17:23 DERIVED) NSAIDS (Non-Steroidal AdvReac Severe Avoid due Verified 10/23/24 17:23 Anti-Inflamma to kidney disease Home Medications ?Medication ?Instructions ?Recorded ?Confirmed ?Last Taken ?Type acetaminophen 325 mg tablet 650 mg PO Q6H PRN Pain 07/24/21 10/24/24 Unknown History methadone 10 mg/mL oral concentrate 70 mg PO DAILY 05/22/22 10/23/24 12/12/22 History hydroxyzine pamoate 100 mg capsule 100 mg PO BEDTIME PRN insomnia 12/13/22 10/24/24 09/04/24 History lorazepam 1 mg tablet 1 mg PO BID PRN Anxiety 05/25/23 10/24/24 Unknown History prednisone 5 mg tablet 5 mg PO DAILY asthma 10/24/24 10/24/24 Unknown History Physical Exam Vital Signs: Vital Signs: Last Vital Signs Temp 98.0 F 10/24/24 06:50 Pulse 83 10/24/24 08:27 Resp 12 10/24/24 08:27 BP 124/55 L 10/24/24 08:27 Pulse Ox 100 10/24/24 08:27 O2 Del Method Nasal Cannula 10/24/24 08:27 O2 Flow Rate 2 10/24/24 08:27 Oxygen Flow Rate 3 10/23/24 17:19 BMI result Body Mass Index 43.5 Const: Other: appreciably morbidly obese General: cooperative, comfortable and no acute distress Orientation/consciousness: patient oriented x3 HEENT: Head: Yes normal to inspection, Yes normocephalic and Yes atraumatic Eyes: General: appearance normal, both eyes and all related structures Neck: Neck: Yes normal visual inspection, Yes full ROM, Yes no meningeal signs, Yes trachea midline and Yes supple Chest: Chest palpation & inspection: normal inspection of the chest Resp: Other: diminished breath sounds throughout; no appreciable overt rales, rhonchi, wheezing Effort & Inspection: normal respiratory effort Cardio: Rate: regular rate Rhythm: regular rhythm GI: Inspection: Yes normal to inspection, No Abdominal wall edema and No distended Palpation (GI): Soft to palpation, not firm, nontender, no guarding and not rigid Skin: General skin exam: no rashes or lesions noted Neuro: General: patient oriented x3, tone normal, moves all extremities, no meningeal signs and no focal motor deficits Extrem: Other: appreciable induration L lateral hip w/ tenderness to palpation; compartments soft, compressible throughout b/l lower extremities General: Yes full ROM and Yes capillary refill normal Psych: Other: of note, tearful when discussing critical illness Results Labs 10/24/24 01:29 10/24/24 01:29 Labs: Laboratory Results - last 24 hr 10/24/24 10/24/24 10/24/24 01:29 01:37 01:47 MCV 95.5 MCH 28.3 MCHC 29.6 L RDW 14.7 Plt Count 283 MPV 9.0 L Immature Gran % (Auto) 1.0 H Neut % (Auto) 74.9 H Lymph % (Auto) 10.2 L Titus % (Auto) 13.7 H Eos % (Auto) 0.0 Baso % (Auto) 0.2 Lymph # (Auto) 1.3 Titus # (Auto) 1.7 H Eos # (Auto) 0.0 Baso # (Auto) 0.0 Abs Immat Gran (auto) 0.13 H Absolute Neuts (auto) 9.4 H Absolute Nucleated RBC 0.130 H Nucleated RBC % (auto) 1.0 H Smear Tech's Comments VERIFIED VBG pH 7.21 L VBG pCO2 58 VBG pO2 115 VBG HCO3 24 VBG O2 Saturation TNP VBG Base Excess -3.6 Anion Gap 15 Estim Creat Clear Calc 13.2 Estimated GFR 9 Random Glucose 100 Lactic Acid Calcium 8.3 L D Total Bilirubin 0.2 AST 27 ALT 12 Alkaline Phosphatase 95 Ammonia Total Protein 5.8 L Albumin 3.3 L Beta-Hydroxybutyrate 0.09 TSH 1.00 Urine Color Yellow Urine Appearance Clear Urine pH 6.0 Ur Specific Jefferson 1.015 Urine Protein 300 (3+) H Urine Glucose (UA) Negative Urine Ketones Negative Urine Blood Trace H Urine Nitrite Negative Ur Leukocyte Esterase Trace H Urine RBC 0-2 Urine WBC 6-10 H Ur Squamous Epith Cells 6-10 Urine Bacteria 1+ Hyaline Casts 0-2 Urine Opiates Screen POSITIVE H Ur Buprenorphine Scrn Not Detected Ur Oxycodone Screen Positive H Urine Methadone Screen Positive H Urine Fentanyl Screen POSITIVE H Ur Barbiturates Screen Not Detected Ur Phencyclidine Scrn Not Detected Ur Amphetamines Screen Not Detected U Benzodiazepines Scrn Not Detected Urine Cocaine Screen POSITIVE H U Marijuana (THC) Screen Not Detected Ethyl Alcohol < 10 Blood Type Antibody Screen Crossmatch (AHG) 10/24/24 10/24/24 10/24/24 02:02 02:55 08:28 MCV MCH MCHC RDW Plt Count MPV Immature Gran % (Auto) Neut % (Auto) Lymph % (Auto) Titus % (Auto) Eos % (Auto) Baso % (Auto) Lymph # (Auto) Titus # (Auto) Eos # (Auto) Baso # (Auto) Abs Immat Gran (auto) Absolute Neuts (auto) Absolute Nucleated RBC Nucleated RBC % (auto) Smear Tech's Comments VBG pH 7.22 L VBG pCO2 53 VBG pO2 100 VBG HCO3 22 VBG O2 Saturation 99.0 VBG Base Excess -5.2 Anion Gap Estim Creat Clear Calc Estimated GFR Random Glucose Lactic Acid 0.4 L Calcium Total Bilirubin AST ALT Alkaline Phosphatase Ammonia 28 Total Protein Albumin Beta-Hydroxybutyrate TSH Urine Color Urine Appearance Urine pH Ur Specific Jefferson Urine Protein Urine Glucose (UA) Urine Ketones Urine Blood Urine Nitrite Ur Leukocyte Esterase Urine RBC Urine WBC Ur Squamous Epith Cells Urine Bacteria Hyaline Casts Urine Opiates Screen Ur Buprenorphine Scrn Ur Oxycodone Screen Urine Methadone Screen Urine Fentanyl Screen Ur Barbiturates Screen Ur Phencyclidine Scrn Ur Amphetamines Screen U Benzodiazepines Scrn Urine Cocaine Screen U Marijuana (THC) Screen Ethyl Alcohol Blood Type O Negative Antibody Screen NEGATIVE Crossmatch (AHG) See Detail Assessment and Plan (1) Acute hypercapnic respiratory failure: Status: Acute (2) Hematoma: Status: Acute Plan Patient is a 62 Y F with polysubstance use, on methadone, morbid obesity c/b LEO, COPD on 2 L, and prior lung cancer status post resection, presenting to ED on 10/23 s/p fall; ED trauma work-up demonstrating L hip hematoma, as well as hypercarbic respiratory failure, prompting non-invasive ventilation N: encephalopathy, intermittent agitation, dexmedetomidine gtt as needed CV: no acute issues R: acute hypercarbic respiratory failure likely multi-factorial d/t polysubstance use, morbid obesity, COPD, non-invasive ventilation as needed, COPD management w/ duonebs, steroids, empiric antibiotics GI: NPO while on non-invasive ventilation, otherwise advance as tolerated : acute on chronic renal insufficiency, to monitor renal indices H: acute on chronic anemia, likely d/t blood loss anemia, s/p pRBC 10/24 ID: UA contaminated, though possible UTI, empiric ceftriaxone, follow-up BCx, respiratory panel; of note, acute hypercarbic respiratory failure likely d/t above-mentioned etiologies, unlikely d/t sepsis E: no acute issues P: intermittent agitation S: daily updates given to
--- NOTE | 2024-10-24 08:58 | PC.NURSE ---
Provider aware of new ABG results and that pt is not wearing BIPAP at the moment- resp paged to replace BIPAP
[2024-10-24] MEDS: Albuterol/Iprat 2.5/0.5MG 3 ML AMPUL.NEB INHALE ×5 (09:32→23:59)
[2024-10-24 09:58] LABS: Glucose, Whole Blood 67 mg/dL (60-115)
--- NOTE | 2024-10-24 10:16 | PHA.MEDREC ---
Addendum entered by Oliver Phillips PharmD 10/24/24 10:35: reviewed Original Note: Pharmacy Consult ? Medication Reconciliation Pharmacy has completed the medication reconciliation. Patient is not awake enough to speak with and going to ICU per nurse. Called and spoke to patients spouse Kodi over the phone. Kodi was able to confirm all of patients meds. Kodi was not sure is patient still takes Gabapentin 100 md, last filled 04/24/24 for 30 days and Cinacalcet 30 mg , last filled 05/19/24 for 30 days. Left then unconfirmed. Kodi did confirm Azithromycin 3 times a week, however doesn't know what days she takes, Methadone 70 mg from [facility] , last dose was yesterday and Prednisone 5 mg daily. Patient last had her medications yesterday.
--- NOTE | 2024-10-24 10:47 | PC.NURSE ---
Pt transferred to ICU.
[2024-10-24 11:29] LABS: Glucose, Whole Blood 86 mg/dL (60-115)
[2024-10-24 12:17] LABS: VBG O2 % Saturation 100.0 %
[2024-10-24 12:22] LABS: Venous Blood Gas Refer to POC result
[2024-10-24 12:50] LABS: Appearance Urine Clear; Glucose Urine UA Negative (Negative); PH 6.0 (5.0-9.0); Specific Gravity - Urine 1.010 (1.005-1.025); UMIC TRIGGER UACC YES
[2024-10-24 13:50] LABS: Chlamydia pneumoniae PCR Not Detected (Not Detect.); Coronavirus 229E PCR Not Detected (Not Detect.); Coronavirus HKU1 PCR Not Detected (Not Detect.); Coronavirus NL63 PCR Not Detected (Not Detect.); Coronavirus OC43 PCR Not Detected (Not Detect.); RSV PCR Not Detected (Not Detect.); Rhino/Enterovirus PCR Not Detected (Not Detect.)
[2024-10-24 14:18] LABS: Influenza A H1 PCR Not Detected (Not Detect.); Influenza A H1-2009 PCR Not Detected (Not Detect.); Influenza A H3 PCR Not Detected (Not Detect.); SARS-CoV-2 PCR Not Detected (Not Detect.)
--- NOTE | 2024-10-24 14:21 | MHC.CM.PN ---
Pt admitted to ICU for respiratory support: currently on BiPap. Information obtained from dtr / HCP Anabel who states pt resides with a partner, has [employer] for home O2 and [facility] with [employer] services. Pt receives Methadone but Anabel is unsure of clinic. Pt will need assistance with transportation to home. HCP on file. CM to follow for finalization of d/c plan
[2024-10-24] MEDS: oxyCODONE HCl ER 10 MG TAB.ER.12H PO (15:17)
--- NOTE | 2024-10-24 18:17 | PC.NURSE ---
Patient arrived to unit via stretcher on bipap - Drowsy but arousable to name. 1100 BS 800 - SC completed at 1100 with 800cc output - ?prolapsed cervix - patient had no complaints. 1400 Patient requesting removal of bipap - okay per MD - patient placed on 1lnc O2 maintaining 88-92%. Patient c/o of 11/17 chronic back pain - medicated per emar w/ some effectiveness. 1700 BS 834 - SC completed at 1700 with 1050cc output - ? retraction of prolapse w/o intervention. Skin clean, dry & intact - generalized bruising, pain to left hip upon palpation - barrier cream applied prn, high fall risk precautions in place. Care ongoing.
[2024-10-25] VITALS (31 sets, daily range): BP systolic 112–162; BP diastolic 61–108; PULSE 82–122; RESP 14–29; TEMP 36.1–37; O2SAT 89–98; BMI 43.7
[2024-10-25] MEDS: Albuterol/Iprat 2.5/0.5MG 3 ML AMPUL.NEB INHALE ×5 (04:35→23:57)
[2024-10-25 06:09] LABS: VBG HCO3 24 mmol/L (22-26); VBG O2 % Saturation 42.0 %
[2024-10-25 06:24] LABS: MANUAL DIFF FLAG NO
[2024-10-25 06:25] LABS: Hematocrit 30.4 % (37.0-47.0); Hemoglobin 9.0 g/dl (12.0-16.0); Imm Gran Abs Auto 0.11 X10*3/uL (0.00-0.03); Imm Gran Pct Auto 1.1 % (0.0-0.4); Lymphocytes Absolute Auto 0.9 X10*3/uL (1.2-4.9); Mean Corpuscular HGB Conc 29.6 g/dl (31.0-35.0); Mean Corpuscular Hemoglobin 27.9 pg (27.0-33.0); Mean Corpuscular Volume 94.1 fL (80.0-98.0); NRBC Abs Auto 0.260 X10*3/uL (0.0-0.012); NRBC Pct Auto 2.5 /100WBC (0.0-0.2); Platelet Count 313 X10*3/uL (160-400); Red Blood Count 3.23 X10*6/uL (4.20-5.50); White Blood Count 10.5 X10*3/uL (4.8-10.8)
--- NOTE | 2024-10-25 06:39 | PC.NURSE ---
Assumed care at 1900. Pt on 1LPM NC maintaining sat 88-92%. Pt anxious?about bipap, medicated for anxiety per MAR. Pt was verbally reassured by this RN. Pt placed on bipap at approx 2200, oral care provided prior to. Witt was placed during shift for urinary retention. Pt tolerated bipap well overnight. Pt asked to remove the bipap at 0415. See MAR, flowsheets, and worklist for more details. Plan of care continues.
--- NOTE | 2024-10-25 06:40 | PM.CCPN ---
Subjective Subjective Date of Service: 10/25/24 Interval History: no significant overnight events; tolerated BiPAP PM Critical Care Time (minutes): 60 Physical Exam Vital Signs: Vital Signs: Last Vital Signs Temp 98.6 F 10/25/24 04:00 Pulse 97 10/25/24 06:00 Resp 18 10/25/24 06:00 BP 160/94 H 10/25/24 06:00 Pulse Ox 92 10/25/24 06:00 O2 Del Method Nasal Cannula 10/25/24 06:00 O2 Flow Rate 1 10/25/24 06:00 FiO2 24 10/25/24 04:00 Oxygen Flow Rate 3 10/23/24 17:19 BMI result Body Mass Index 43.7 Const: Other: appreciable morbid obesity General: cooperative, no acute distress, alert, awake and Physically active Orientation/consciousness: patient oriented x3 HEENT: Head: Yes normal to inspection, Yes normocephalic and Yes atraumatic Eyes: General: appearance normal, both eyes and all related structures Neck: Neck: Yes normal visual inspection, Yes full ROM, Yes trachea midline and Yes supple Chest: Chest palpation & inspection: normal inspection of the chest Resp: Other: diminished breath sounds throughout; no appreciable overt rales, rhonchi, wheezing Effort & Inspection: normal respiratory effort GI: Inspection: Yes normal to inspection, No Abdominal wall edema and No distended Palpation (GI): Soft to palpation, not firm, nontender, no guarding and not rigid Skin: General skin exam: no rashes or lesions noted Neuro: General: patient oriented x3, tone normal, moves all extremities and no focal motor deficits Extrem: Other: appreciable 1+ pitting edema to bilateral shins General: Yes normal to inspection, Yes full ROM and Yes capillary refill normal Psych: Other: intermittent agitation, tearful Objective Data Labs 10/25/24 06:01 10/25/24 06:01 Labs: Laboratory Results - last 24 hr 10/24/24 10/24/24 10/24/24 02:02 08:28 09:48 WBC RBC Hgb Hct MCV MCH MCHC RDW Plt Count MPV Immature Gran % (Auto) Neut % (Auto) Lymph % (Auto) [place] % (Auto) Eos % (Auto) Baso % (Auto) Lymph # (Auto) [place] # (Auto) Eos # (Auto) Baso # (Auto) Abs Immat Gran (auto) Absolute Neuts (auto) Absolute Nucleated RBC Nucleated RBC % (auto) VBG pH 7.22 L VBG pCO2 53 VBG pO2 100 VBG HCO3 22 VBG O2 Saturation 99.0 VBG Base Excess -5.2 POC Glucose 67 Urine Color Urine Appearance Urine pH Ur Specific [place] Urine Protein Urine Glucose (UA) Urine Ketones Urine Blood Urine Nitrite Ur Leukocyte Esterase Urine RBC Urine WBC Ur Squamous Epith Cells Urine Bacteria Hyaline Casts Respiratory Panel Garcia Adenovirus (Rapid PCR) B.pert (TEM-PCR) B.parapertussis DNA PCR C. pneumoniae DNA (PCR) Coronavirus OC43 (PCR) Coronavirus HKU1 (PCR) Coronavirus 229E (PCR) Coronavirus NL63 (PCR) Human Metapneumovir PCR Influenza A (RT-PCR) Influenza A (H1) PCR Influ A (H1/09) PCR Influenza A (H3) PCR Influenza B (RT-PCR) M. pneumoniae (PCR) Parainfluenza 1 (PCR) Parainfluenza 2 (PCR) Parainfluenza 3 (PCR) Parainfluenza 4 (PCR) RSV (PCR) Entero/Rhino (PCR) SARS-CoV-2 RNA (RT-PCR) Blood Type O Negative Antibody Screen NEGATIVE Crossmatch (AHG) See Detail 10/24/24 10/24/24 10/24/24 11:24 12:09 12:13 WBC RBC Hgb Hct MCV MCH MCHC RDW Plt Count MPV Immature Gran % (Auto) Neut % (Auto) Lymph % (Auto) [place] % (Auto) Eos % (Auto) Baso % (Auto) Lymph # (Auto) [place] # (Auto) Eos # (Auto) Baso # (Auto) Abs Immat Gran (auto) Absolute Neuts (auto) Absolute Nucleated RBC Nucleated RBC % (auto) VBG pH 7.31 L VBG pCO2 TNP VBG pO2 160 VBG HCO3 TNP VBG O2 Saturation 100.0 VBG Base Excess TNP POC Glucose 86 Urine Color Urine Appearance Urine pH Ur Specific [place] Urine Protein Urine Glucose (UA) Urine Ketones Urine Blood Urine Nitrite Ur Leukocyte Esterase Urine RBC Urine WBC Ur Squamous Epith Cells Urine Bacteria Hyaline Casts Respiratory Panel Garcia See Note Adenovirus (Rapid PCR) Not Detected B.pert (TEM-PCR) Not Detected B.parapertussis DNA PCR Not Detected C. pneumoniae DNA (PCR) Not Detected Coronavirus OC43 (PCR) Not Detected Coronavirus HKU1 (PCR) Not Detected Coronavirus 229E (PCR) Not Detected Coronavirus NL63 (PCR) Not Detected Human Metapneumovir PCR Not Detected Influenza A (RT-PCR) Not Detected Influenza A (H1) PCR Not Detected Influ A (H1/) PCR Not Detected Influenza A (H3) PCR Not Detected Influenza B (RT-PCR) Not Detected M. pneumoniae (PCR) Not Detected Parainfluenza 1 (PCR) Not Detected Parainfluenza 2 (PCR) Not Detected Parainfluenza 3 (PCR) Not Detected Parainfluenza 4 (PCR) Not Detected RSV (PCR) Not Detected Entero/Rhino (PCR) Not Detected SARS-CoV-2 RNA (RT-PCR) Not Detected Blood Type Antibody Screen Crossmatch (AHG) 10/24/24 10/25/24 12:24 06:01 WBC 10.5 RBC 3.23 L D Hgb 9.0 L D Hct 30.4 L D MCV 94.1 MCH 27.9 MCHC 29.6 L RDW 16.1 H Plt Count 313 MPV 9.2 L Immature Gran % (Auto) 1.1 H Neut % (Auto) 80.1 H Lymph % (Auto) 8.6 L [place] % (Auto) 9.9 Eos % (Auto) 0.0 Baso % (Auto) 0.3 Lymph # (Auto) 0.9 L [place] # (Auto) 1.0 Eos # (Auto) 0.0 Baso # (Auto) 0.0 Abs Immat Gran (auto) 0.11 H Absolute Neuts (auto) 8.4 H Absolute Nucleated RBC 0.260 H Nucleated RBC % (auto) 2.5 H VBG pH 7.23 L VBG pCO2 58 VBG pO2 30 VBG HCO3 24 VBG O2 Saturation 42.0 VBG Base Excess -3.0 POC Glucose Urine Color Yellow Urine Appearance Clear Urine pH 6.0 Ur Specific [place] 1.010 Urine Protein 100 (2+) H Urine Glucose (UA) Negative Urine Ketones Negative Urine Blood Negative Urine Nitrite Negative Ur Leukocyte Esterase Negative Urine RBC 0-2 Urine WBC 0-5 Ur Squamous Epith Cells 0-2 Urine Bacteria None Seen Hyaline Casts 0-2 Respiratory Panel [place] Adenovirus (Rapid PCR) B.pert (TEM-PCR) B.parapertussis DNA PCR C. pneumoniae DNA (PCR) Coronavirus OC43 (PCR) Coronavirus HKU1 (PCR) Coronavirus 229E (PCR) Coronavirus NL63 (PCR) Human Metapneumovir PCR Influenza A (RT-PCR) Influenza A (H1) PCR Influ A (H1) PCR Influenza A (H3) PCR Influenza B (RT-PCR) M. pneumoniae (PCR) Parainfluenza 1 (PCR) Parainfluenza 2 (PCR) Parainfluenza 3 (PCR) Parainfluenza 4 (PCR) RSV (PCR) Entero/Rhino (PCR) SARS-CoV-2 RNA (RT-PCR) Blood Type Antibody Screen Crossmatch (AHG) Microbiology Microbiology Results: Microbiology 10/24/24 03:15 Blood - Venous Blood Culture - Preliminary No growth after 24 hours. 10/24/24 02:55 Blood - Venous Blood Culture - Preliminary No growth after 24 hours. Progress Note: A&P Assessment and plan (1) COPD (chronic obstructive pulmonary disease): Status: Acute (2) Acute hypoxic on chronic hypercapnic respiratory failure: Status: Acute Plan Patient is a 62 Y F with polysubstance use, on methadone, morbid obesity c/b LEO, COPD on 2 L, and prior lung cancer status post resection, presenting to ED on 10/23 s/p fall; ED trauma work-up demonstrating L hip hematoma, as well as hypercarbic respiratory failure, prompting non-invasive ventilation N: no acute issues CV: no acute issues R: acute hypercarbic respiratory failure likely multi-factorial d/t polysubstance use, morbid obesity, COPD, non-invasive ventilation as needed, COPD management w/ duonebs, steroids, empiric antibiotics GI: NPO while on non-invasive ventilation, otherwise advance diet as tolerated : acute on chronic renal insufficiency, to monitor renal indices H: acute on chronic anemia, likely d/t blood loss anemia, s/p pRBC 10/24 ID: empiric azithromycin in setting of COPD exacerbation; follow-up BCx, respiratory panel; of note, acute hypercarbic respiratory failure likely d/t above-mentioned etiologies, unlikely d/t sepsis E: no acute issues P: intermittent agitation, though verbally re-directable S: daily updates given to Quality Stroke Does the patient have a stroke diagnosis?: No VTE Prior VTE?: No VTE Risk Level:: Medical - moderate - high VTE Device Contraindication: N/A - Device Ordered VTE Drug Contraindication: N/A - Med Ordered
[2024-10-25 06:48] LABS: Albumin Level 3.3 g/dL (3.5-5.0); Anion Gap 12 (12-20); Blood Urea Nitrogen 41 mg/dL (9-16); Calcium 8.7 mg/dL (8.4-10.2); Carbon Dioxide 24 mmol/L (22-29); Chloride 115 mmol/L (96-108); Creatinine Clr Calc Pharmacy 14.9; Estimated Glomerular Filt Rate 10; Magnesium 1.8 mg/dL (1.6-2.6); Potassium 5.0 mmol/L (3.3-5.1); Sodium 146 mmol/L (135-145)
[2024-10-25] MEDS: Lidocaine 4 % Patch ADH..PATCH 1 PATCH TRANSDERMA (08:14)
[2024-10-25] MEDS: Albumin Human 25 % 50 ML 100 ML IV (08:34)
--- NOTE | 2024-10-25 08:51 | P.CDIM_ITS ---
PROVIDER RESPONSE TEXT: To clarify, the appropriate diagnosis supported by the clinical indicators: Acute on Chronic Respiratory failure with hypoxia QUERY TEXT: PHYSICIAN'S DOCUMENTATION REQUEST Date of Query: 10/25/2024 06:52 AM EDT Patient Name: Deirdre Galeas Admit Date: 10/24/2024 Dear Aissatou Bynum MD, A review of the medical record indicates additional documentation may be needed. Please review below and update the documentation accordingly. Respiratory failure was documented on (insert date). Clinical Indicators: patient is on 2L oxygen at home for COPD oxygen SAT on admit 88 - 92% If possible, please further clarify the type and acuity of respiratory failure: Acute on Chronic Respiratory failure with hypoxia Chronic Respiratory failure with hypoxia Other (explain) Clinically unable to determine (explain) Thank you, Delores Hawthorne RN Use of terms such as suspected, likely, concern for, or probable (associated with a specific diagnosis that is being evaluated, monitored, or treated as if it exists) are acceptable and can be coded in the inpatient setting, when documented at the time of discharge. Please use your independent medical judgment in providing your response. THIS QUERY IS PART OF THE PERMANENT MEDICAL RECORD
--- NOTE | 2024-10-25 08:51 | P.CDIM_ITS ---
PROVIDER RESPONSE TEXT: To clarify, the appropriate diagnosis supported by the clinical indicators: Acute renal failure with CKD 4 QUERY TEXT: PHYSICIAN'S DOCUMENTATION REQUEST Date of Query: 10/25/2024 07:43 AM EDT Patient Name: Deirdre Galeas Admit Date: 10/24/2024 Dear Aissatou Bynum MD, A review of the medical record indicates additional documentation may be needed. Please review below and update the documentation accordingly. Clinical Indicators: BUN on 10/24/24: 43 Creatinine on 10/24/24: 4.89 Estimated GFR 9 PMH CKD stage 4 Per H&P 10/24/24: acute on chronic renal insufficiency Please clarify which of the following accurately represents the patient's renal status: Acute renal failure with CKD 4 Acute renal failure with suspected ATN Acute renal failure with other pathology (medullary, papillary, or cortical necrosis) Acute kidney injury (non-traumatic) CKD, please provide stage ESRD - CKD V now requiring permanent dialysis and/or transplant Other (explain) Clinically unable to determine (explain) Thank you, Delores Hawthorne RN Use of terms such as suspected, likely, concern for, or probable (associated with a specific diagnosis that is being evaluated, monitored, or treated as if it exists) are acceptable and can be coded in the inpatient setting, when documented at the time of discharge. Please use your independent medical judgment in providing your response. THIS QUERY IS PART OF THE PERMANENT MEDICAL RECORD
--- NOTE | 2024-10-25 08:51 | P.CDIM_ITS ---
PROVIDER RESPONSE TEXT: To clarify, the appropriate diagnosis supported by the clinical indicators: Toxic metabolic QUERY TEXT: PHYSICIAN'S DOCUMENTATION REQUEST Date of Query: 10/25/2024 06:50 AM EDT Patient Name: Deirdre Galeas Admit Date: 10/24/2024 Dear Aissatou Bynum MD, A review of the medical record indicates additional documentation may be needed. Please review below and update the documentation accordingly. Clinical Indicators: encephalopathy noted with intermittent agitation Based on the above, please further specify, in the Progress Notes, the known or suspected type of the documented encephalopathy: Metabolic Septic Toxic Toxic metabolic Hypertensive Anoxic Alcoholic Hepatic (reported as hepatic failure and needs further specificity as to acute, subacute, or chronic) Due to a specified condition (such as UTI, hyponatremia, CVA, etc.) Other (explain) Clinically unable to determine (explain) Thank you, Delores Hawthorne RN Use of terms such as suspected, likely, concern for, or probable (associated with a specific diagnosis that is being evaluated, monitored, or treated as if it exists) are acceptable and can be coded in the inpatient setting, when documented at the time of discharge. Please use your independent medical judgment in providing your response. THIS QUERY IS PART OF THE PERMANENT MEDICAL RECORD
[2024-10-25 09:33] LABS: Venous Blood Gas Refer to POC result
--- NOTE | 2024-10-25 09:52 | PC.NURSE ---
Witt catheter removed 09:45. Patient DTV 15:45. Patient ambulated 1 assist with cane to commode after removal. 1 large BM passed, no urine output.
[2024-10-25 12:34] LABS: VBG HCO3 21 mmol/L (22-26); VBG O2 % Saturation 99.0 %
[2024-10-25 12:34] LABS: Venous Blood Gas Refer to POC result
--- NOTE | 2024-10-25 15:06 | MHC.CM.PN ---
PT REMAINS IN ICU WITH RESCUE BIPAP RX. PT WAS SEEN BY Brandyn WHO RECOMMEND HOME WITH SERVICES. [facility]. CM WILL CONTINUE TO FOLLOW FOR ANY CHANGE TO DC PLAN.
[2024-10-25] MEDS: Lidocaine 4 % Patch ADH..PATCH 2 PATCH TRANSDERMA (17:50)
[2024-10-26] VITALS (24 sets, daily range): BP systolic 130–169; BP diastolic 61–105; PULSE 86–130; RESP 14–209; TEMP 36.4–37.1; O2SAT 90–97; BMI 46.0
[2024-10-26] MEDS: Albuterol/Iprat 2.5/0.5MG 3 ML AMPUL.NEB INHALE ×5 (04:45→19:01)
[2024-10-26 05:39] LABS: VBG HCO3 20 mmol/L (22-26); VBG O2 % Saturation 80.0 %
[2024-10-26 05:40] LABS: MANUAL DIFF FLAG NO
[2024-10-26 05:43] LABS: Hematocrit 30.7 % (37.0-47.0); Hemoglobin 9.5 g/dl (12.0-16.0); Imm Gran Abs Auto 0.18 X10*3/uL (0.00-0.03); Imm Gran Pct Auto 1.1 % (0.0-0.4); Lymphocytes Absolute Auto 1.4 X10*3/uL (1.2-4.9); Mean Corpuscular HGB Conc 30.9 g/dl (31.0-35.0); Mean Corpuscular Hemoglobin 28.6 pg (27.0-33.0); Mean Corpuscular Volume 92.5 fL (80.0-98.0); NRBC Abs Auto 0.160 X10*3/uL (0.0-0.012); Platelet Count 316 X10*3/uL (160-400); Red Blood Count 3.32 X10*6/uL (4.20-5.50); White Blood Count 16.2 X10*3/uL (4.8-10.8)
[2024-10-26 05:50] LABS: NRBC Pct Auto 1.0 /100WBC (0.0-0.2)
[2024-10-26 05:58] LABS: Anion Gap 14 (12-20); Blood Urea Nitrogen 45 mg/dL (9-16); Calcium 8.8 mg/dL (8.4-10.2); Carbon Dioxide 20 mmol/L (22-29); Chloride 117 mmol/L (96-108); Creatinine Clr Calc Pharmacy 16.6; Estimated Glomerular Filt Rate 11; Magnesium 1.8 mg/dL (1.6-2.6); Potassium 4.9 mmol/L (3.3-5.1); Sodium 146 mmol/L (135-145)
--- NOTE | 2024-10-26 06:08 | PC.NURSE ---
CARE ASSUMED 7PM..ALERT..ORIENTED X3...RESPIRATIONS EASY AT REST..GIL..O2 1-2 L/M CANNULA...INITIALLY S.TACH HR 120-124 AND BP 142/108..PROVIDER AWARE...ALSO MILDY ANXIOUS...HS MEDS INCLUDING COREG AND ATARX PO...TYLENOL PO FOR C/O CHRONIC BACK PAIN...RESTFUL WITHIN 1 HOUR AND DECREASED BP AND HR...NOCTURNAL BIPAP 15/5 AND FIO2 24% PLACED BY RT AFTER ATIVAN PO GIVEN 11PM...NAPPING OVERNIGHT...BRIEFLY AWAKE 01:30 FOR PO INTAKE..REMAINED ALERT..ORIENTED X3...AWAKENED BY CUSTOMER OPERATIONS SPECIALIST 5AM AND REQUESTED REMOVAL OF BIPAP..RETURNED TO O2 1 L/M...OOB TO BEDSIDE COMMODE..VOIDED 900ml CLEAR YELLOW URINE..GIL WITH AUDIBLE WHEEZES..RT ADMINISTERED SCHEDULED UPDRAFT...NO DISTRESS AFTER BACK TO BED....DENIED/OFFERED NO COMPLAINTS
--- NOTE | 2024-10-26 06:19 | P.PNCC_ITS ---
Subjective Subjective Date of Service: 10/26/24 Interval History: no significant overnight events Critical Care Time (minutes): 0 Physical Exam 2 Vital Signs: Vital Signs: Last Vital Signs Temp 97.4 F 10/25/24 22:00 Pulse 98 10/26/24 06:00 Resp 24 H 10/26/24 05:00 BP 150/86 H 10/26/24 06:00 Pulse Ox 96 10/26/24 06:00 O2 Del Method Nasal Cannula 10/26/24 06:00 O2 Flow Rate 1 10/26/24 06:00 FiO2 24 10/26/24 04:00 Oxygen Flow Rate 3 10/23/24 17:19 BMI result Body Mass Index 46.0 Const: Other: appreciable morbid obesity General: cooperative, healthy appearing, comfortable, no acute distress, alert, awake and Physically active Orientation/consciousness: patient oriented x3 HEENT: Head: Yes normal to inspection, Yes normocephalic and Yes atraumatic Eyes: General: appearance normal, both eyes and all related structures Neck: Neck: Yes normal visual inspection, Yes full ROM, Yes trachea midline and Yes supple Chest: Chest palpation & inspection: normal inspection of the chest Resp: Other: no appreciable overt rales, rhonchi, wheezing Effort & Inspection: normal respiratory effort Cardio: Rate: regular rate Rhythm: regular rhythm GI: Inspection: Yes normal to inspection, No Abdominal wall edema and No distended Palpation (GI): Soft to palpation, not firm, nontender, no guarding and not rigid Skin: General skin exam: no rashes or lesions noted Neuro: General: patient oriented x3, tone normal, moves all extremities and no focal motor deficits Extrem: Other: appreciable 1+ pitting edema to bilateral shins General: Yes normal to inspection, Yes full ROM and Yes capillary refill normal Psych: Appearance: grossly normal Objective Data Labs 10/26/24 05:33 10/26/24 05:33 Labs: Laboratory Results - last 24 hr 10/25/24 10/25/24 10/26/24 06:01 12:29 05:33 WBC 10.5 16.2 H RBC 3.23 L D 3.32 L Hgb 9.0 L D 9.5 L Hct 30.4 L D 30.7 L MCV 94.1 92.5 MCH 27.9 28.6 MCHC 29.6 L 30.9 L RDW 16.1 H 16.4 H Plt Count 313 316 MPV 9.2 L 8.9 L Immature Gran % (Auto) 1.1 H 1.1 H Neut % (Auto) 80.1 H 81.0 H Lymph % (Auto) 8.6 L 8.8 L [place] % (Auto) 9.9 8.9 Eos % (Auto) 0.0 0.0 Baso % (Auto) 0.3 0.2 Lymph # (Auto) 0.9 L 1.4 [place] # (Auto) 1.0 1.4 H Eos # (Auto) 0.0 0.0 Baso # (Auto) 0.0 0.0 Abs Immat Gran (auto) 0.11 H 0.18 H Absolute Neuts (auto) 8.4 H 13.1 H Absolute Nucleated RBC 0.260 H 0.160 H Nucleated RBC % (auto) 2.5 H 1.0 H VBG pH 7.26 L VBG pCO2 46 VBG pO2 103 VBG HCO3 21 L VBG O2 Saturation 99.0 VBG Base Excess -5.3 Sodium 146 H 146 H Potassium 5.0 4.9 Chloride 115 H 117 H Carbon Dioxide 24 20 L Anion Gap 12 14 BUN 41 H 45 H Creatinine 4.37 H* 4.03 H* Estim Creat Clear Calc 14.9 16.6 Estimated GFR 10 11 Random Glucose 158 H 95 Calcium 8.7 8.8 Phosphorus 4.3 3.8 Magnesium 1.8 1.8 Albumin 3.3 L 10/26/24 05:34 WBC RBC Hgb Hct MCV MCH MCHC RDW Plt Count MPV Immature Gran % (Auto) Neut % (Auto) Lymph % (Auto) [place] % (Auto) Eos % (Auto) Baso % (Auto) Lymph # (Auto) [place] # (Auto) Eos # (Auto) Baso # (Auto) Abs Immat Gran (auto) Absolute Neuts (auto) Absolute Nucleated RBC Nucleated RBC % (auto) VBG pH 7.39 VBG pCO2 33 VBG pO2 47 VBG HCO3 20 L VBG O2 Saturation 80.0 VBG Base Excess -3.5 Sodium Potassium Chloride Carbon Dioxide Anion Gap BUN Creatinine Estim Creat Clear Calc Estimated GFR Random Glucose Calcium Phosphorus Magnesium Albumin Microbiology Microbiology Results: Microbiology 10/24/24 03:15 Blood - Venous Blood Culture - Preliminary No growth after 48 hours. 10/24/24 02:55 Blood - Venous Blood Culture - Preliminary No growth after 48 hours. Progress Note: A&P Assessment and plan (1) Acute hypercapnic respiratory failure: Status: Acute Plan Patient is a 62 Y F with polysubstance use, on methadone, morbid obesity c/b LEO, COPD on 2 L, and prior lung cancer status post resection, presenting to ED on 10/23 s/p fall; ED trauma work-up demonstrating L hip hematoma, as well as hypercarbic respiratory failure, prompting non-invasive ventilation N: no acute issues CV: no acute issues R: acute hypercarbic respiratory failure likely multi-factorial d/t polysubstance use, morbid obesity, COPD, non-invasive ventilation as needed, COPD management w/ duonebs, steroids, empiric antibiotics GI: NPO while on non-invasive ventilation, otherwise advance diet as tolerated : acute on chronic renal insufficiency, improving, to monitor renal indices H: acute on chronic anemia, likely d/t blood loss anemia, s/p pRBC 10/24 ID: empiric azithromycin in setting of COPD exacerbation; of note, acute hypercarbic respiratory failure likely d/t above-mentioned etiologies, unlikely d/t sepsis E: no acute issues MSK: L hip hematoma, stable S: daily updates given to Quality Stroke Does the patient have a stroke diagnosis?: No VTE Prior VTE?: No VTE Risk Level:: Medical - moderate - high VTE Device Contraindication: N/A - Device Ordered VTE Drug Contraindication: N/A - Med Ordered
[2024-10-26] MEDS: Lidocaine 4 % Patch ADH..PATCH 2 PATCH TRANSDERMA (08:13)
[2024-10-26 08:22] LABS: Venous Blood Gas Refer to POC result
[2024-10-26] MEDS: diazePAM 10 MG/2 ML CARTRIDGE 2.5 MG IVPUSH (11:24)
--- NOTE | 2024-10-26 12:17 | HE.PHANOTE ---
re methadone verification last dose methadone 70 mg given 10/23 from tomi mahajan
[2024-10-26] MEDS: methADONE HCl 20 MG/2 ML ORAL.CONC 70 MG PO (13:44)
--- NOTE | 2024-10-26 17:24 | PC.NURSE ---
Patient alert and oriented x4, vague and anxious at times, c/o pain with movement but refusing pain medication at current time and pain at goal 5/10 at rest. patient became very anxious this morning, PRN Ativan given as ordered without good effect, STAT Valium 2.5mg given as ordered for noted hyper ventilation and inability to decrease respiration rate or anxiety level, desired effect noted. Methadone dose verified, ordered and given, transferred to Med/Tele, report given to RN.
--- NOTE | 2024-10-26 18:35 | MHC.RECOVRN ---
TW met with the patient to discuss current substance? use and concerns related to increased risk of substance use related problems. ? Patient reports using ? bag of heroin in the morning and an additional ? bag in the evening in addition to 70mg of methadone daily. She reports using intranasally Pt reports she has been at 70mg of methadone ?for years? and does not feel an increase in her dose would be helpful. She states she occasionally will use cocaine but states she can ?take it or leave it? . Pt goes on to report that she recently accepted some Percocet? from a friend because she had fallen and gotten hurt but did not feel that her doctor would prescribe her anything stronger than tylenol for her pain.? Pt elaborated that the recent earth of her mother and son have contributed to her recurrence of use.? Discussed how substance use has impacted health, including negative impact on mental health and overall physical wellbeing.? Discussed and provided written education and resources for harm reduction techniques including utilizing [employer] for drug testing, harm reduction techniques, and the importance of seeking medical help for wound care as well as education about the current drug supply and cutting agents used. ? Patient plans to continue Methadone dosing at [facility] upon discharge. She declined? referral for Recovery Coaching or further intervention or outpatient appt for treatment related to [place] at this time. ? Pt was provided with TW?s contact information if questions or concerns arise. Pt denies further questions or concerns at this time.?
[2024-10-27] VITALS (19 sets, daily range): BP systolic 146–180; BP diastolic 79–95; PULSE 94–128; RESP 17–28; TEMP 36.2–36.7; O2SAT 92–100; BMI 45.8
[2024-10-27] MEDS: Albuterol/Iprat 2.5/0.5MG 3 ML AMPUL.NEB INHALE ×7 (01:14→23:37)
--- NOTE | 2024-10-27 04:49 | PC.NURSE ---
0437 Increased respiratory effort 28/min with associated tachycardia 120's after using the bedside commode; pt put back on BiPAP and given her morning dose of solumedrol per provider and a one time dose of morphine as ordered. Continuous assessment ongoing.
[2024-10-27 07:32] LABS: Anion Gap 16 (12-20); Blood Urea Nitrogen 52 mg/dL (9-16); Calcium 9.1 mg/dL (8.4-10.2); Carbon Dioxide 21 mmol/L (22-29); Chloride 113 mmol/L (96-108); Creatinine Clr Calc Pharmacy 16.8; Estimated Glomerular Filt Rate 11; Magnesium 1.6 mg/dL (1.6-2.6); Potassium 5.7 mmol/L (3.3-5.1); Sodium 144 mmol/L (135-145)
[2024-10-27 07:47] LABS: Hematocrit 33.6 % (37.0-47.0); Hemoglobin 10.1 g/dl (12.0-16.0); Imm Gran Abs Auto 0.20 X10*3/uL (0.00-0.03); Imm Gran Pct Auto 1.1 % (0.0-0.4); Lymphocytes Absolute Auto 0.8 X10*3/uL (1.2-4.9); MANUAL DIFF FLAG SCAN; Mean Corpuscular HGB Conc 30.1 g/dl (31.0-35.0); Mean Corpuscular Hemoglobin 27.4 pg (27.0-33.0); Mean Corpuscular Volume 91.3 fL (80.0-98.0); NRBC Abs Auto 0.080 X10*3/uL (0.0-0.012); NRBC Pct Auto 0.4 /100WBC (0.0-0.2); PLT CLUMP 1; Red Blood Count 3.68 X10*6/uL (4.20-5.50); SCAN SMEAR FLAG 1
[2024-10-27] MEDS: methADONE HCl 20 MG/2 ML ORAL.CONC 70 MG PO (08:36)
[2024-10-27] MEDS: Lidocaine 4 % Patch ADH..PATCH 2 PATCH TRANSDERMA (08:36)
[2024-10-27 08:54] LABS: Platelet Count 312 X10*3/uL (160-400); White Blood Count 19.0 X10*3/uL (4.8-10.8)
--- NOTE | 2024-10-27 14:22 | MHC.CM.PN ---
Per MD rounds patient is not medically cleared for discharge today. DP resume [facility] services and Methadone. She may need assistance with transportation at discharge.
--- NOTE | 2024-10-27 16:10 | P.PNIM_ITS ---
Subjective Subjective Date of Service: 10/27/24 Interval History: No acute issues overnight. Utilizing BiPAP at night Review of Systems Denies chest pain Denies shortness of breath Denies nausea vomiting diarrhea Denies fever chills Physical Exam 2 Vital Signs: Vital Signs: Last Vital Signs Temp 97.2 F 10/27/24 15:48 Pulse 102 H 10/27/24 15:48 Resp 20 10/27/24 15:48 BP 146/79 H 10/27/24 15:48 Pulse Ox 96 10/27/24 15:48 O2 Del Method Nasal Cannula 10/27/24 15:48 O2 Flow Rate 1 10/27/24 15:48 FiO2 24 10/26/24 04:00 Oxygen Flow Rate 3 10/23/24 17:19 BMI result Body Mass Index 45.8 Const: Other: Awake alert no acute distress Resp: Other: Diminished at bases with scattered expiratory wheezes throughout Cardio: Other: No S4; positive S1-S2; no S3 murmurs rubs or gallops GI: Other: Soft nontender nondistended normoactive bowel sounds Extrem: Other: No edema bilaterally Objective Data Active Medications Acetaminophen (Acetaminophen 325 Mg Tablet) 650 mg PO Q6H PRN PRN Reason: Pain, Mild 1-3,fever,headache Last Admin: 10/26/24 20:58 Dose: 650 mg Documented By: EDIE Albuterol/Ipratropium (Albuterol/Iprat 2.5/0.5mg 3 Ml Ampul.Neb) 3 ml INHALE RQ4H [facility] Last Admin: 10/27/24 15:28 Dose: 3 ml Documented By: RANJITH Aspirin (Aspirin 81 Mg Tab.Chew) 81 mg PO DAILY [facility] Last Admin: 10/27/24 10:37 Dose: 81 mg Documented By: KIM Atorvastatin Calcium (Atorvastatin Calcium 10 Mg Tablet) 10 mg PO BEDTIME [facility] Last Admin: 10/26/24 20:58 Dose: 10 mg Documented By: EDIE Carvedilol (Carvedilol 3.125 Mg Tablet) 3.125 mg PO BID [facility]; Protocol Last Admin: 10/27/24 10:37 Dose: 3.125 mg Documented By: KIM Fluticasone Propionate (Fluticasone Propionate Nasal 16 Gm [place]) 1 spray NOSTRIL-B BID [facility] Last Admin: 10/27/24 10:37 Dose: Not Given Documented By: KIM Non-Admin Reason: notin pt bin Heparin Sodium (Porcine) (Heparin Sodium,Porcine 5,000 Unit/Ml Vial) 5,000 unit SUBCUT Q8H [facility] Last Admin: 10/27/24 10:38 Dose: 5,000 unit Documented By: KIM Hydralazine HCl (Hydralazine Hcl 20 Mg/Ml Vial) 10 mg IVPUSH Q4H PRN; Protocol PRN Reason: Hypertension Last Admin: 10/27/24 03:29 Dose: 10 mg Documented By: EDIE Hydroxyzine HCl (Hydroxyzine Hcl 50 Mg Tablet) 100 mg PO BEDTIME [facility] Last Admin: 10/26/24 20:58 Dose: 100 mg Documented By: EDIE Azithromycin 500 mg/ Sodium (Chloride) 250 mls @ 125 mls/hr IV Q24H [facility] Last Infusion: 10/27/24 13:47 Dose: Infused Documented By: KIM Lidocaine (Lidocaine 4 % Patch Adh..Patch) 2 patch TRANSDERMA DAILY [facility]; Protocol Last Admin: 10/27/24 08:36 Dose: 2 patch Documented By: KIM Lorazepam (Lorazepam 0.5 Mg Tablet) 0.5 mg PO Q4H PRN PRN Reason: Anxiety Last Admin: 10/27/24 10:30 Dose: 0.5 mg Documented By: KIM Methadone HCl (Methadone Hcl 20 Mg/2 Ml Oral.Conc) 70 mg PO DAILY@0800 [facility] Last Admin: 10/27/24 08:36 Dose: 70 mg Documented By: KIM Co-signed By: ALIDA Methylprednisolone Sodium Succinate (Methylprednisolone Sod Succ 40 Mg/Ml Vial) 40 mg IVPUSH DAILY [facility] Last Admin: 10/27/24 04:31 Dose: 40 mg Documented By: EDIE Ondansetron HCl (Ondansetron Hcl 4 Mg/2 Ml Vial) 4 mg IVPUSH Q4H PRN PRN Reason: Nausea and Vomiting Torsemide (Torsemide 20 Mg Tablet) 20 mg PO BID@0800,1700 [facility]; Protocol Last Admin: 10/27/24 10:33 Dose: 20 mg Documented By: KIM Labs 10/27/24 07:02 10/27/24 07:02 Labs: Laboratory Results - last 24 hr 10/27/24 07:02 MCV 91.3 MCH 27.4 MCHC 30.1 L RDW 16.1 H Plt Count 312 MPV 10.4 Immature Gran % (Auto) 1.1 H Neut % (Auto) 88.8 H Lymph % (Auto) 4.4 L [place] % (Auto) 5.4 Eos % (Auto) 0.1 Baso % (Auto) 0.2 Lymph # (Auto) 0.8 L [place] # (Auto) 1.0 Eos # (Auto) 0.0 Baso # (Auto) 0.0 Abs Immat Gran (auto) 0.20 H Absolute Neuts (auto) 16.9 H Absolute Nucleated RBC 0.080 H Nucleated RBC % (auto) 0.4 H Smear Tech's Comments VERIFIED Anion Gap 16 Estim Creat Clear Calc 16.8 Estimated GFR 11 Random Glucose 113 Calcium 9.1 Phosphorus 4.2 Magnesium 1.6 Assessment and Plan (1) Acute hypoxic on chronic hypercapnic respiratory failure: Status: Acute (2) Anemia due to chronic kidney disease: Status: Acute (3) CKD (chronic kidney disease): Status: Acute Plan Patient is a 62 Y F with polysubstance use, on methadone, morbid obesity c/b LEO, COPD on 2 L, and prior lung cancer status post resection, presenting to ED on 10/23 s/p fall; ED trauma work-up demonstrating L hip hematoma, as well as hypercarbic respiratory failure, prompting non-invasive ventilation 1. Hypercarbic respiratory failure -successfully titrated off daily BiPAP... Nocturnal use at this time -VBG in a.m. -Solu-Medrol q.6 hours -azithromycin -DuoNebs as scheduled 2.CKD 5 -appears at baseline -follow renals/divalent 3.Anemia -improving -follow CBC is Heparin Full code Quality Stroke Does the patient have a stroke diagnosis?: No VTE Prior VTE?: No VTE Risk Level:: Medical - moderate - high VTE Device Contraindication: N/A - Device Ordered VTE Drug Contraindication: N/A - Med Ordered
--- NOTE | 2024-10-27 17:46 | PC.RT ---
called to patient bedside for questions regarding patient's home cpap. patient asking about different masks available. when asked patient which [employer] supplied cpap machine, patient stated that she is using her mother's cpap machine. asked patient if she has knowledge of settings on cpap machine and patient stated she did not. educated patient that cpap settings are specific for each patient and using a machine that is not hers could be detrimental to her health. asked patient if she ever had a sleep study completed and she replied that she had but never had a cpap of her own. asked patient if she followed up with a lung doctor and she stated that Dr. Cochran is her handkerchief maker. suggested to patient to follow up with Dr. Cochran for a prescription for her own cpap machine. Informed RN of conversation.
--- NOTE | 2024-10-27 18:13 | MHC.RECOVRN ---
TW met with pt to offer continued support and resources regarding EUGENIA On aproach pt was sitting on side of bed, head down, with eyes closed. Pt awoke to name being called and reports being a little upset at having to wait for her dinner. Pt made numerous statements about no longer wanting to remain in the hospital and voiced that she recently lost her other, son, and an additional family member. Pt reports her father is ill and she is wasting time being here when she could be spending time with him. Pt reminded that she will not able to be available to family if she can not first take care of herself. Pt was tearful but receptive to TW's statement. Pt reports that he continues to use due to increased life stressors. TW asked pt if she felt an increase in methadone could potentially keep her from using illicit substances. Pt stated she believes an increase would help but she reports being reluctant because I was on a higher dose before and eventually cut myself down. I feel like if I increased I would just be a failure . TW explained that methane is a medication and when used appropriately can help manage cravings for illicit substances and decrease the risk for overdose. Pt agreed, however declined potential option for an increase and states she will talk to her OTP upon discharge at least until I can get through all this emotional pain . Pt denies further concerns or needs at this time TW available as needed for ongoing support and resources
[2024-10-28] VITALS (16 sets, daily range): BP systolic 123–185; BP diastolic 74–110; PULSE 17–113; RESP 17–20; TEMP 36.3–36.9; O2SAT 92–100; BMI 45.8
[2024-10-28] MEDS: Albuterol/Iprat 2.5/0.5MG 3 ML AMPUL.NEB INHALE ×5 (02:28→20:28)
[2024-10-28 06:35] LABS: Hematocrit 35.0 % (37.0-47.0); Hemoglobin 10.7 g/dl (12.0-16.0); Imm Gran Abs Auto 0.22 X10*3/uL (0.00-0.03); Imm Gran Pct Auto 1.2 % (0.0-0.4); Lymphocytes Absolute Auto 0.5 X10*3/uL (1.2-4.9); MANUAL DIFF FLAG SCAN; Mean Corpuscular HGB Conc 30.6 g/dl (31.0-35.0); Mean Corpuscular Hemoglobin 27.7 pg (27.0-33.0); Mean Corpuscular Volume 90.7 fL (80.0-98.0); NRBC Abs Auto 0.100 X10*3/uL (0.0-0.012); NRBC Pct Auto 0.6 /100WBC (0.0-0.2); Platelet Count 357 X10*3/uL (160-400); Red Blood Count 3.86 X10*6/uL (4.20-5.50); SCAN SMEAR FLAG 1; White Blood Count 18.1 X10*3/uL (4.8-10.8)
[2024-10-28 06:36] LABS: VBG HCO3 20 mmol/L (22-26); VBG O2 % Saturation 95.0 %
[2024-10-28 06:36] LABS: Venous Blood Gas Refer to POC result
[2024-10-28 07:21] LABS: Anion Gap 16 (12-20); Blood Urea Nitrogen 63 mg/dL (9-16); Calcium 9.7 mg/dL (8.4-10.2); Carbon Dioxide 21 mmol/L (22-29); Chloride 111 mmol/L (96-108); Creatinine Clr Calc Pharmacy 16.1; Estimated Glomerular Filt Rate 11; Magnesium 1.8 mg/dL (1.6-2.6); Potassium 5.3 mmol/L (3.3-5.1); Sodium 143 mmol/L (135-145)
[2024-10-28] MEDS: methADONE HCl 20 MG/2 ML ORAL.CONC 70 MG PO (08:37)
[2024-10-28] MEDS: Lidocaine 4 % Patch ADH..PATCH 2 PATCH TRANSDERMA (08:44)
--- NOTE | 2024-10-28 11:16 | P.PNIM_ITS ---
Subjective Subjective Date of Service: 10/28/24 Interval History: Overll sob is better and wants to go home Physical Exam 2 Vital Signs: Vital Signs: Last Vital Signs Temp 97.5 F 10/28/24 10:19 Pulse 63 10/28/24 10:19 Resp 19 10/28/24 10:19 BP 171/76 H 10/28/24 10:19 Pulse Ox 94 10/28/24 10:19 O2 Del Method Room Air 10/28/24 10:19 O2 Flow Rate 0.5 10/28/24 07:55 FiO2 24 10/26/24 04:00 Oxygen Flow Rate 3 10/23/24 17:19 BMI result Body Mass Index 45.8 Const: Other: Awake alert no acute distress Resp: Other: Diminished at bases with scattered expiratory wheezes throughout Cardio: Other: No S4; positive S1-S2; no S3 murmurs rubs or gallops GI: Other: Soft nontender nondistended normoactive bowel sounds Extrem: Other: No edema bilaterally Objective Data Active Medications Acetaminophen (Acetaminophen 325 Mg Tablet) 650 mg PO Q6H PRN PRN Reason: Pain, Mild 1-3,fever,headache Last Admin: 10/28/24 08:47 Dose: 650 mg Documented By: KIM Albuterol/Ipratropium (Albuterol/Iprat 2.5/0.5mg 3 Ml Ampul.Neb) 3 ml INHALE RQ4H [facility] Last Admin: 10/28/24 07:54 Dose: 3 ml Documented By: LETICIA Aspirin (Aspirin 81 Mg Tab.Chew) 81 mg PO DAILY [facility] Last Admin: 10/28/24 08:43 Dose: 81 mg Documented By: KIM Atorvastatin Calcium (Atorvastatin Calcium 10 Mg Tablet) 10 mg PO BEDTIME [facility] Last Admin: 10/27/24 20:59 Dose: 10 mg Documented By: EDIE Carvedilol (Carvedilol 3.125 Mg Tablet) 3.125 mg PO BID [facility]; Protocol Last Admin: 10/28/24 08:43 Dose: 3.125 mg Documented By: KIM Fluticasone Propionate (Fluticasone Propionate Nasal 16 Gm [place]) 1 spray NOSTRIL-B BID [facility] Last Admin: 10/28/24 08:43 Dose: 1 spray Documented By: KIM Heparin Sodium (Porcine) (Heparin Sodium,Porcine 5,000 Unit/Ml Vial) 5,000 unit SUBCUT Q8H [facility] Last Admin: 10/28/24 08:44 Dose: 5,000 unit Documented By: KIM Hydralazine HCl (Hydralazine Hcl 20 Mg/Ml Vial) 10 mg IVPUSH Q4H PRN; Protocol PRN Reason: Hypertension Last Admin: 10/28/24 04:23 Dose: 10 mg Documented By: EDIE Hydroxyzine HCl (Hydroxyzine Hcl 50 Mg Tablet) 100 mg PO BEDTIME [facility] Last Admin: 10/27/24 20:57 Dose: 100 mg Documented By: EDIE Azithromycin 500 mg/ Sodium (Chloride) 250 mls @ 125 mls/hr IV Q24H [facility] Last Infusion: 10/27/24 13:47 Dose: Infused Documented By: KIM Lidocaine (Lidocaine 4 % Patch Adh..Patch) 2 patch TRANSDERMA DAILY [facility]; Protocol Last Admin: 10/28/24 08:44 Dose: 2 patch Documented By: KIM Lorazepam (Lorazepam 0.5 Mg Tablet) 0.5 mg PO Q4H PRN PRN Reason: Anxiety Last Admin: 10/28/24 08:44 Dose: 0.5 mg Documented By: KIM Methadone HCl (Methadone Hcl 20 Mg/2 Ml Oral.Conc) 70 mg PO DAILY@0800 [facility] Last Admin: 10/28/24 08:37 Dose: 70 mg Documented By: KIM Co-signed By: MANDIE Methylprednisolone Sodium Succinate (Methylprednisolone Sod Succ 125 Mg/2 Ml Vial) 40 mg IVPUSH BID [facility] Last Admin: 10/28/24 08:42 Dose: 40 mg Documented By: KIM Ondansetron HCl (Ondansetron Hcl 4 Mg/2 Ml Vial) 4 mg IVPUSH Q4H PRN PRN Reason: Nausea and Vomiting Torsemide (Torsemide 20 Mg Tablet) 20 mg PO BID@0800,1700 [facility]; Protocol Last Admin: 10/28/24 08:43 Dose: 20 mg Documented By: KIM Labs 10/29/24 06:51 10/29/24 06:51 Labs: Laboratory Results - last 24 hr 10/28/24 10/28/24 06:19 06:29 MCV 90.7 MCH 27.7 MCHC 30.6 L RDW 15.9 Plt Count 357 MPV 8.9 L Immature Gran % (Auto) 1.2 H Neut % (Auto) 93.9 H Lymph % (Auto) 2.8 L [place] % (Auto) 2.0 Eos % (Auto) 0.0 Baso % (Auto) 0.1 Lymph # (Auto) 0.5 L [place] # (Auto) 0.4 Eos # (Auto) 0.0 Baso # (Auto) 0.0 Abs Immat Gran (auto) 0.22 H Absolute Neuts (auto) 17.0 H Absolute Nucleated RBC 0.100 H Nucleated RBC % (auto) 0.6 H Smear Tech's Comments VERIFIED VBG pH 7.33 VBG pCO2 38 VBG pO2 72 VBG HCO3 20 L VBG O2 Saturation 95.0 VBG Base Excess -4.7 Anion Gap 16 Estim Creat Clear Calc 16.1 Estimated GFR 11 Random Glucose 181 H Calcium 9.7 D Phosphorus 4.3 Magnesium 1.8 Assessment and Plan (1) Acute hypoxic on chronic hypercapnic respiratory failure: Status: Acute (2) Anemia due to chronic kidney disease: Status: Acute (3) CKD (chronic kidney disease): Status: Acute Plan Patient is a 62 Y F with polysubstance use, on methadone, morbid obesity c/b LEO, COPD on 2 L, and prior lung cancer status post resection, presenting to ED on 10/23 s/p fall; ED trauma work-up demonstrating L hip hematoma, as well as hypercarbic respiratory failure, prompting non-invasive ventilation Acute Hypercarbic respiratory failure required rescue bipap -successfully titrated off daily BiPAP... Nocturnal use at this time -VBG is promissing -IV solumedrol to po prednisone starting tomorrow -azithromycin empiric -DuoNebs as scheduled -will need outpatient sleep study CKD 5 -appears at baseline -follow renals/divalent Sinus tach, likely related to albuterol get an ecg Hyperkalemia d/t CKD lokelma and monitor Leukocytosis, d/t steroid monitor Anemia of chronic disease, no indication for epogen yet -improving -follow CBC is Heparin Full code Quality Stroke Does the patient have a stroke diagnosis?: No VTE Prior VTE?: No VTE Risk Level:: Medical - moderate - high VTE Device Contraindication: N/A - Device Ordered VTE Drug Contraindication: N/A - Med Ordered
[2024-10-28] MEDS: guaiFENesin LA 600 MG TAB.ER.12H PO (17:39)
--- NOTE | 2024-10-28 18:03 | ECG_ITS ---
Test Reason : HR 150s Blood Pressure : */* mmHG Vent. Rate : 110 BPM Atrial Rate : 110 BPM P-R Int : 152 ms QRS Dur : 76 ms QT Int : 330 ms P-R-T Axes : 66 59 65 degrees QTcB Int : 446 ms Sinus tachycardia Otherwise normal ECG When compared with ECG of 23-Oct-2024 23:38, No significant change was found [facility] Electron[facility] Signed By: YUNIOR BARON
[2024-10-29] VITALS (16 sets, daily range): BP systolic 124–171; BP diastolic 78–88; PULSE 84–137; RESP 12–24; TEMP 36.4–37; O2SAT 90–99; BMI 45.8
[2024-10-29] MEDS: Albuterol/Iprat 2.5/0.5MG 3 ML AMPUL.NEB INHALE ×6 (00:48→21:43)
[2024-10-29 07:25] LABS: MANUAL DIFF FLAG NO
[2024-10-29 08:03] LABS: Hematocrit 34.3 % (37.0-47.0); Hemoglobin 10.5 g/dl (12.0-16.0); Imm Gran Abs Auto 0.48 X10*3/uL (0.00-0.03); Imm Gran Pct Auto 2.2 % (0.0-0.4); Lymphocytes Absolute Auto 0.6 X10*3/uL (1.2-4.9); Mean Corpuscular HGB Conc 30.6 g/dl (31.0-35.0); Mean Corpuscular Hemoglobin 28.1 pg (27.0-33.0); Mean Corpuscular Volume 91.7 fL (80.0-98.0); NRBC Abs Auto 0.070 X10*3/uL (0.0-0.012); NRBC Pct Auto 0.3 /100WBC (0.0-0.2); Platelet Count 337 X10*3/uL (160-400); Red Blood Count 3.74 X10*6/uL (4.20-5.50); White Blood Count 21.7 X10*3/uL (4.8-10.8)
[2024-10-29 08:40] LABS: Anion Gap 15 (12-20); Blood Urea Nitrogen 79 mg/dL (9-16); Calcium 8.9 mg/dL (8.4-10.2); Carbon Dioxide 21 mmol/L (22-29); Chloride 110 mmol/L (96-108); Creatinine Clr Calc Pharmacy 15.0; Estimated Glomerular Filt Rate 10; Magnesium 1.9 mg/dL (1.6-2.6); Potassium 5.4 mmol/L (3.3-5.1); Sodium 141 mmol/L (135-145)
[2024-10-29] MEDS: Lidocaine 4 % Patch ADH..PATCH 2 PATCH TRANSDERMA (10:06)
[2024-10-29] MEDS: guaiFENesin LA 600 MG TAB.ER.12H PO ×2 (10:07→22:56)
[2024-10-29] MEDS: methADONE HCl 20 MG/2 ML ORAL.CONC 70 MG PO (10:09)
[2024-10-30] VITALS (12 sets, daily range): BP systolic 136–191; BP diastolic 80–88; PULSE 82–115; RESP 12–22; TEMP 36.3–36.6; O2SAT 90–98; BMI 45.4
[2024-10-30] MEDS: Albuterol/Iprat 2.5/0.5MG 3 ML AMPUL.NEB INHALE ×4 (00:15→11:11)
[2024-10-30 07:48] LABS: Anion Gap 16 (12-20); Blood Urea Nitrogen 93 mg/dL (9-16); Calcium 9.0 mg/dL (8.4-10.2); Carbon Dioxide 23 mmol/L (22-29); Chloride 110 mmol/L (96-108); Creatinine Clr Calc Pharmacy 14.4; Estimated Glomerular Filt Rate 10; Magnesium 2.1 mg/dL (1.6-2.6); Potassium 5.5 mmol/L (3.3-5.1); Sodium 143 mmol/L (135-145)
[2024-10-30 07:50] LABS: Hematocrit 34.8 % (37.0-47.0); Hemoglobin 10.5 g/dl (12.0-16.0); Imm Gran Abs Auto 0.84 X10*3/uL (0.00-0.03); Imm Gran Pct Auto 4.3 % (0.0-0.4); Lymphocytes Absolute Auto 0.5 X10*3/uL (1.2-4.9); MANUAL DIFF FLAG SCAN; Mean Corpuscular HGB Conc 30.2 g/dl (31.0-35.0); Mean Corpuscular Hemoglobin 27.9 pg (27.0-33.0); Mean Corpuscular Volume 92.3 fL (80.0-98.0); NRBC Abs Auto 0.090 X10*3/uL (0.0-0.012); NRBC Pct Auto 0.5 /100WBC (0.0-0.2); PLT CLUMP 1; Red Blood Count 3.77 X10*6/uL (4.20-5.50); SCAN SMEAR FLAG 1
[2024-10-30 07:51] LABS: White Blood Count 19.6 X10*3/uL (4.8-10.8)
[2024-10-30 08:02] LABS: Platelet Count 311 X10*3/uL (160-400)
[2024-10-30] MEDS: methADONE HCl 20 MG/2 ML ORAL.CONC 70 MG PO (09:05)
--- NOTE | 2024-10-30 10:00 | PM.CNNEP ---
History of Present Illness Reason for Consult Consult date: 10/30/24 Chief Complaint Chief complaint: hyperbaric respiratory failure History of Present Illness Narrative: 64 y/o female with CKD4 here since 10/23 after a fall, had hypercarbic respiratory failure requiring bipap. Nephrology consulted for ongoing hyperkalemia despite daily lokelma administration serum renal function studies remain around baseline/stable serum bicarb is 23, AG 16 phosphorus is elevated at 7.0 patient states she feels ok and has been urinating regularly. states she is feeling at her baseline health and wants to go home. Review of Systems Constitutional: Reports fatigue Cardiovascular: Denies chest pain, Denies leg edema, Denies lightheadedness and Denies dyspnea Respiratory: Denies dyspnea Gastrointestinal: Denies abdominal pain, Denies diarrhea, Denies nausea and Denies vomiting Genitourinary: Denies hematuria, Denies difficulty voiding, Denies dysuria and Denies flank pain Musculoskeletal: Denies muscle cramps Skin/Breast: Denies rash Denies tremor(s) Endocrine: Reports fatigue PMFSH Past Medical History Medical History (Updated 10/30/24 @ 12:36 by Margarito Corbin MD) Hip injury Back injury Respiratory failure with hypoxia Dyslipidemia History of lung cancer Hx of bronchitis CKD (chronic kidney disease) stage 4, GFR 15-29 ml/min Morbid obesity COPD (chronic obstructive pulmonary disease) Polysubstance abuse Respiratory failure with hypoxia and hypercapnia Ambulates with cane Seasonal allergies Herpes zoster Osteopenia (~2017) Respiratory failure COVID-19 (~03/2021) Osteoarthritis of ankles, bilateral Olecranon bursitis of left elbow Tubulovillous adenoma of large intestine (~2020) Hx of cardiac arrest (~2015) O2 dependent Methadone maintenance therapy patient History of claustrophobia History of seizure Anxiety and depression HTN (hypertension) Multiple fractures of ribs Anemia in chronic kidney disease Vitamin D deficiency Family history of colon cancer Restrictive lung disease LEO (obstructive sleep apnea) Family History Family History Father Diabetes mellitus Mother Depression Mental health disorder Maternal Grandfather Colon cancer Sister No problems noted. Son No problems noted. Daughter No problems noted. Daughter No problems noted. Surgical History Surgical History Hx of tracheostomy History of esophagogastroduodenoscopy (EGD) (~2021) History of removal of ureteral stent (~2013) History of lung biopsy (~2019) History of colonoscopy (~2020) Umbilical hernia History of laparoscopy (~2012) History of hand surgery History of tubal ligation Social History Social History Household Members: Significant Other Housing: Other Housing Other:: Mobile Home Are you a primary client care consultant to a significant other at home: No Do you presently have visiting nurse or other home services: Yes ([facility]) Unable to assess alcohol history related to: Unable to respond Alcohol intake: never Comment: pt on 1:1 for safety Patient Tobacco Use Status: Former Tobacco user Tobacco use type: Cigarette Years Smoked: 25 yrs Smoked in Last 30 Days: No e-Cigarette/Vaping Use: Former Use Second Hand Smoke Exposure: No Use of substances other than those prescribed or required for medical reasons: No Substance Use Type: Former Substance User and Heroin Currently Displaying Signs/Symptoms of Drug Intoxication Withdrawal: No Have you been hit, kicked, punched, or otherwise hurt by someone within the past year? If so, by whom?: No Do you feel safe in your current relationship?: Yes Is there a partner from a previous relationship who is making you feel unsafe now?: No Are you made to feel afraid or neglected: No Spiritual Healthcare Practices: none per patient [place] Healthcare Practices: none per patient Cultural Healthcare Practices: none per patient Advance Directives: Yes Advance Directives Information Provided: No Advance Directives on File: Yes Advance Directives Date on File: 03/21/21 Do you have a plan to hurt others: No Plan Recently lost weight without trying: No Eating poorly because of decreased appetite: No Nutrition Risks: No Nutritional Risk Patient : No : No Poor oral hygiene: Yes service: No Current occupational status: unemployed and disabled Cognitive needs: No Hearing needs: No Vision needs: No Meds Allergies Allergy/AdvReac Type Severity Reaction Status Date / Time ciprofloxacin (From Cipro) Allergy Severe HIVES/SWELLING, Verified 10/23/24 17:23 THROAT CLOSES shellfish derived (SHELLFISH Allergy Intermediate Vomiting Verified 10/23/24 17:23 DERIVED) NSAIDS (Non-Steroidal AdvReac Severe Avoid due Verified 10/23/24 17:23 Anti-Inflamma to kidney disease Active Medications: Current Medications Acetaminophen (Acetaminophen 325 Mg Tablet) 650 mg PO Q6H PRN PRN Reason: Pain, Mild 1-3,fever,headache Last Admin: 10/29/24 15:05 Dose: 650 mg Albuterol/Ipratropium (Albuterol/Iprat 2.5/0.5mg 3 Ml Ampul.Neb) 3 ml INHALE RQ4H [facility] Last Admin: 10/30/24 11:11 Dose: 3 ml Aspirin (Aspirin 81 Mg Tab.Chew) 81 mg PO DAILY [facility] Last Admin: 10/30/24 09:06 Dose: 81 mg Atorvastatin Calcium (Atorvastatin Calcium 10 Mg Tablet) 10 mg PO BEDTIME [facility] Last Admin: 10/29/24 20:20 Dose: 10 mg Carvedilol (Carvedilol 3.125 Mg Tablet) 3.125 mg PO BID [facility]; Protocol Last Admin: 10/30/24 09:06 Dose: 3.125 mg Fluticasone Propionate (Fluticasone Propionate Nasal 16 Gm [place]) 1 spray NOSTRIL-B BID [facility] Last Admin: 10/30/24 09:12 Dose: 1 spray Guaifenesin (Guaifenesin [place] 600 Mg Tab.Er.12h) 600 mg PO BID PRN PRN Reason: Cough Last Admin: 10/30/24 12:20 Dose: 600 mg Heparin Sodium (Porcine) (Heparin Sodium,Porcine 5,000 Unit/Ml Vial) 5,000 unit SUBCUT Q8H [facility] Last Admin: 10/30/24 09:07 Dose: 5,000 unit Hydroxyzine HCl (Hydroxyzine Hcl 50 Mg Tablet) 100 mg PO BEDTIME [facility] Last Admin: 10/29/24 20:20 Dose: 100 mg Lidocaine (Lidocaine 4 % Patch Adh..Patch) 2 patch TRANSDERMA DAILY [facility]; Protocol Last Admin: 10/30/24 09:09 Dose: Not Given Lorazepam (Lorazepam 0.5 Mg Tablet) 0.5 mg PO Q4H PRN PRN Reason: Anxiety Last Admin: 10/30/24 00:27 Dose: 0.5 mg Methadone HCl (Methadone Hcl 20 Mg/2 Ml Oral.Conc) 70 mg PO DAILY@0800 [facility] Last Admin: 10/30/24 09:05 Dose: 70 mg Methylprednisolone Sodium Succinate (Methylprednisolone Sod Succ 125 Mg/2 Ml Vial) 40 mg IVPUSH BID [facility] Last Admin: 10/30/24 09:06 Dose: 40 mg Ondansetron HCl (Ondansetron Hcl 4 Mg/2 Ml Vial) 4 mg IVPUSH Q4H PRN PRN Reason: Nausea and Vomiting Sodium Zirconium Cyclosilicate (Sodium Zirconium Cyclosilicate 10 Gm Powd.Pack) 10 gm PO DAILY [facility] Last Admin: 10/30/24 09:20 Dose: Not Given Torsemide (Torsemide 20 Mg Tablet) 20 mg PO BID@0800,1700 [facility]; Protocol Last Admin: 10/30/24 09:05 Dose: 20 mg Home Medications ?Medication ?Instructions ?Recorded ?Confirmed ?Last Taken ?Type acetaminophen 325 mg tablet 650 mg PO Q6H PRN Pain 07/24/21 10/24/24 Unknown History methadone 10 mg/mL oral concentrate 70 mg PO DAILY 05/22/22 10/26/24 10/23/24 History hydroxyzine pamoate 100 mg capsule 100 mg PO BEDTIME PRN insomnia 12/13/22 10/24/24 09/04/24 History lorazepam 1 mg tablet 1 mg PO BID PRN Anxiety 05/25/23 10/24/24 Unknown History prednisone 5 mg tablet 5 mg PO DAILY asthma 10/24/24 10/24/24 Unknown History Physical Exam Vital Signs: Last Vital Signs Temp 97.9 F 10/30/24 11:57 Pulse 101 H 10/30/24 11:57 Resp 22 H 10/30/24 11:57 BP 136/81 10/30/24 11:57 Pulse Ox 96 10/30/24 11:57 O2 Del Method Nasal Cannula 10/30/24 11:57 O2 Flow Rate 0.5 10/30/24 11:57 FiO2 24 10/26/24 04:00 Oxygen Flow Rate 3 10/23/24 17:19 BMI result Body Mass Index 45.4 Const General: no acute distress, alert and awake Resp Effort & Inspection: normal respiratory effort and able to speak in complete sentences Auscultation: clear to auscultation bilaterally Cardio Rate: regular rate Rhythm: regular rhythm Heart sounds: S1 normal heart sound present and S2 normal heart sound present GI Palpation (GI): Soft to palpation and nontender General: Yes no CVA tenderness Back/Spine/Pelvis Back: no CVA tenderness Skin Rashes: no rashes Neuro Other: no tremor. no asterixis. Extrem General: No edema Results Lab Results 10/30/24 06:51 10/30/24 12:18 Lab results: Chemistry 10/28/24 10/29/24 10/30/24 06:19 06:51 06:51 Sodium 143 141 143 Potassium 5.3 H 5.4 H 5.5 H Carbon Dioxide 21 L 21 L 23 BUN 63 H 79 H 93 H Creatinine 4.15 H* 4.43 H* 4.61 H* Calcium 9.7 D 8.9 D 9.0 Phosphorus 4.3 5.9 H 7.0 H 10/30/24 12:18 Sodium 143 Potassium 4.9 Carbon Dioxide 21 L BUN Creatinine Calcium Phosphorus Hematology 10/28/24 10/29/24 10/30/24 06:19 06:51 06:51 WBC 18.1 H 21.7 H 19.6 H Hgb 10.7 L 10.5 L 10.5 L Plt Count 357 337 311 Assessment and Plan (1) CKD (chronic kidney disease) stage 4, GFR 15-29 ml/min: Status: Acute Plan CKD4 at baseline with hyperkalemia likely secondary to advanced renal disease no metabolic acidosis at this time to explain hyperkalemia recommend continuing daily lokelma 10mg PO, patient may be discharged as long as potassium level remains below 6.0. will add sevelamer 800mg PO TID wtih meals given worsening hyperphosphatemia. she shoud have close outpatient follow up with her soil tester. Discussed with Dr Muhammad. Procedures Date of Service Date of Service: 10/30/24
--- NOTE | 2024-10-30 12:13 | P.DS_ITS ---
DS: Providers Provider Date of Service: 10/30/24 Date of admission: 10/24/24 08:52 Date of discharge: 10/30/24 Primary care physician: Valerie Castano MD Consults: 10/26/24 11:37 Addiction Medicine Provider Stat Consulting Provider: Addiction Covering Reason for consultation: Cocaine and Heroin, Previously on Methadone 10/30/24 08:29 Consult to Nephrology Routine Consulting Provider: [facility] Reason for consultation: Ckd, high k DS: Diagnosis Discharge Diagnosis (1) Acute hypoxic on chronic hypercapnic respiratory failure: Status: Acute (2) Anemia due to chronic kidney disease: Status: Acute (3) CKD (chronic kidney disease): Status: Acute DS: Summary Hospital Course Hospital Course: admission hpi Chief Complaint: Hypercarbic Respiratory Failure Patient is a 62 Y F with polysubstance use, on methadone, morbid obesity c/b LEO, COPD on 2 L, and prior lung cancer status post radiation, presenting to ED on 10/23 s/p fall; ED trauma work-up demonstrating L hip hematoma, as well as hypercarbic respiratory failure, prompting non-invasive ventilation; upon further history-taking, patient reports in past month, has been walking and falling asleep and falling; patient unsure why this is happening; when prompted, patient reports non-compliance w/ non-invasive due to discomfort, as well as recreational heroin use hospital course Patient is a 62 Y F with polysubstance use, on methadone, morbid obesity c/b LEO, COPD on 2 L, and prior lung cancer status post resection, presenting to ED on 10/23 s/p fall; ED trauma work-up demonstrating L hip hematoma, as well as hypercarbic respiratory failure, prompting non-invasive ventilation and admission to the ICU fom 10/24 go 10/26 Acute Hypercarbic respiratory failure required rescue bipap and ICU stay for 2 days, she improved and weaned off BiPAP, over all is doing much better, VBG has been promissing. She has been transitioned from iv steroid to oral steroid and will malka at discharge with prednisone. She has been empirically treated with Azithromycin. To continue inhaler at home. She will benefit from sleep study on outpatient basis CKD 5 -appears at baseline -follow renals/divalent Sinus tach, likely related to albuterol get an ecg Hyperkalemia d/t CKD lokelma and given a dose of Kayexalate for potassium of 5.5, she will need outpatient follow up with nephrology Leukocytosis, d/t steroid monitor Anemia of chronic disease, no indication for epogen yet -improving -follow CBC is Heparin Full code Time Attestation Discharge Coordination Time (in mins): 40 Quality: Safe Use of Opioids Does Pt have an Active Cancer Diagnosis on the Problem List?: No Quality: Stroke Does the patient have a stroke diagnosis?: No Physical Exam Exam: Exam: General: AO X 3, no acute distress Resp: CTA bilateral CVS: S1,S2,RRR GI: +BS, NT, no distention Skin: No rash Neuro: motor grossly intact Psych: appropriate affect Vital Signs: Vital Signs: Last Vital Signs Temp 97.9 F 10/30/24 11:57 Pulse 101 H 10/30/24 11:57 Resp 22 H 10/30/24 11:57 BP 136/81 10/30/24 11:57 Pulse Ox 96 10/30/24 11:57 O2 Del Method Nasal Cannula 10/30/24 11:57 O2 Flow Rate 0.5 10/30/24 11:57 FiO2 24 10/26/24 04:00 Oxygen Flow Rate 3 10/23/24 17:19 BMI result Body Mass Index 45.4 DS: Data Data Completed and Pending Completed studies during hospitalization [Text1]: Procedures Assistance with Respiratory Ventilation, Less than 24 Consecutive Hours, Continuous Positive Airway Pressure (09/06/24) Bypass Trachea to Cutaneous with Tracheostomy Device, Percutaneous Approach (03/18/21) Insertion of Endotracheal Airway into Trachea, Via Natural or Artificial Opening (12/12/22) Insertion of Feeding Device into Stomach, Percutaneous Approach (03/18/21) Insertion of Infusion Device into Right Basilic Vein, Percutaneous Approach (07/23/21) Insertion of Infusion Device into Right Internal Jugular Vein, Percutaneous Approach (03/18/21) Insertion of Infusion Device into Superior Vena Cava, Percutaneous Approach (03/18/21) Insertion of Monitoring Device into Upper Artery, Percutaneous Approach (03/18/21) Inspection of Upper Intestinal Tract, Via Natural or Artificial Opening Endoscopic (03/18/21) Introduction of Baricitinib into Mouth and Pharynx, External Approach, [employer] (03/18/21) Introduction of Vasopressor into Central Vein, Percutaneous Approach (03/18/21) Introduction of Vasopressor into Peripheral Vein, Percutaneous Approach (12/12/22) Monitoring of Arterial Pressure, Peripheral, Percutaneous Approach (03/18/21) Monitoring of Arterial Pulse, Peripheral, Percutaneous Approach (03/18/21) Performance of Urinary Filtration, Intermittent, Less than 6 Hours Per Day (03/18/21) Respiratory Ventilation, 24-96 Consecutive Hours (03/18/21) Respiratory Ventilation, Greater than 96 Consecutive Hours (03/18/21) Respiratory Ventilation, Less than 24 Consecutive Hours (12/12/22) Transfusion of Nonautologous Red Blood Cells into Peripheral Vein, Percutaneous Approach (03/18/21) Labs on day of discharge: Laboratory Results - last 24 hr 10/30/24 06:51 WBC 19.6 H RBC 3.77 L Hgb 10.5 L Hct 34.8 L MCV 92.3 MCH 27.9 MCHC 30.2 L RDW 16.1 H Plt Count 311 MPV 9.7 Immature Gran % (Auto) 4.3 H Neut % (Auto) 88.1 H Lymph % (Auto) 2.5 L [place] % (Auto) 4.9 Eos % (Auto) 0.0 Baso % (Auto) 0.2 Lymph # (Auto) 0.5 L [place] # (Auto) 1.0 Eos # (Auto) 0.0 Baso # (Auto) 0.0 Abs Immat Gran (auto) 0.84 H Absolute Neuts (auto) 17.2 H Absolute Nucleated RBC 0.090 H Nucleated RBC % (auto) 0.5 H Smear Tech's Comments VERIFIED Sodium 143 Potassium 5.5 H Chloride 110 H Carbon Dioxide 23 Anion Gap 16 BUN 93 H Creatinine 4.61 H* Estim Creat Clear Calc 14.4 Estimated GFR 10 Random Glucose 129 H Calcium 9.0 Phosphorus 7.0 H Magnesium 2.1 Discharge Plan Discharge Anticipated Discharge Date/Time: 10/30/24 11:50 Patient Disposition: Home, Self-Care Discharge Diagnosis: Acute and chronic hypoxic respiratory failure due to copd exacerbation, Referrals: [facility] [Outside] - 1 Week Valerie Castano MD [Primary Care Provider, Internal Medicine] - 1 Week Discharge Medications: New prednisone 10 mg tablet See Taper PO DIRECTED Qty: 12 0RF Taper: Prednisone 30 mg daily for 2 Days and 0 Hour 20 mg daily for 2 Days and 0 Hour 10 mg daily for 2 Days and 0 Hour Rx Instructions: see taper instructions Continued aspirin 81 mg tablet,delayed release (DR/EC) 81 mg PO DAILY Qty: 30 0RF gabapentin 100 mg capsule 100 mg PO DAILY PRN (Reason: for pain) Qty: 30 0RF fluticasone furoate-vilanterol [Breo Ellipta] 100-25 mcg/dose blister with device 1 ea PO DAILY 90 Days Qty: 3 3RF torsemide 20 mg tablet 20 mg PO BID Qty: 180 0RF carvedilol 3.125 mg tablet 3.125 mg PO BID Qty: 180 1RF levocetirizine 5 mg tablet 5 mg PO DAILY PRN (Reason: allergy symptoms) Qty: 30 0RF ipratropium-albuterol 0.5 mg-3 mg(2.5 mg base)/3 mL solution for nebulization 3 ml inhalation Q4-6H PRN (Reason: shortness of breath or wheezing) Qty: 180 11RF atorvastatin 10 mg tablet 10 mg PO BEDTIME Qty: 90 1RF acetaminophen 325 mg Tablet 650 mg PO Q6H PRN (Reason: Pain) prednisone 5 mg tablet 5 mg PO DAILY hydroxyzine pamoate 100 mg capsule 100 mg PO BEDTIME PRN (Reason: insomnia) methadone 10 mg/mL concentrate 70 mg PO DAILY Patient Comments: [facility] lorazepam 1 mg tablet 1 mg PO BID PRN (Reason: Anxiety) cinacalcet 30 mg tablet 30 mg PO DAILY Qty: 30 2RF azithromycin 250 mg tablet 250 mg PO 3XW 90 Days Qty: 39 3RF Diet: Advance to usual diet Activity on Discharge: As tolerated Stand Alone Forms: Patient Portal Discharge page Print Language: Solomon Islander Care Plan Goals: recovery from respiratory failure due to copd Health Concerns: copd exacerbation acute and chronic respiratory failure hyperkalemia (high potassium) Plan of Treatment: use inhalers as directed\ take prednisone malka as directed, and after that resume prednisone 5 mg daily avoid smoking use oxygen as directed take lokelma daily and follow up with your kidney doctor You will have outpatient sleep study done Assessment: see above
[2024-10-30] MEDS: guaiFENesin LA 600 MG TAB.ER.12H PO (12:20)
[2024-10-30 12:40] LABS: Anion Gap 16 (12-20); Carbon Dioxide 21 mmol/L (22-29); Chloride 111 mmol/L (96-108); Potassium 4.9 mmol/L (3.3-5.1); Sodium 143 mmol/L (135-145)
--- NOTE | 2024-10-30 12:50 | MHC.CM.PN ---
Second IMM given 10/30. Pt is medically cleared for discharge home with resumption of previous services ([facility], [facility], home O2 through [employer]/ outpt methadone clinic). Pt will arrange her own transport home today.
== END 2024-10-30 15:38 | disposition home or self-care (01) | DRG 190 ==
LOC: HO.ED 10-24 07:37 → HO.EDOVER 10-24 09:20 → HO.ICU 10-24 09:58 → HO.IMC 10-26 14:20
PROVIDERS: Hospitalist; Nurse Practitioner Family; Student in an Organized Health Care Education/Training Program; Admitting Provider Internal Medicine Critical Care Medicine; Emergency Provider Emergency Medicine; PCP Internal Medicine; Visit Provider Internal Medicine
DX: J44.1 Chronic obstructive pulmonary disease with (acute) exacerbation (principal); G92.8 Other toxic encephalopathy; J96.21 Acute and chronic respiratory failure with hypoxia; J96.22 Acute and chronic respiratory failure with hypercapnia; N18.4 Chronic kidney disease, stage 4 (severe); N17.9 Acute kidney failure, unspecified; F11.20 Opioid dependence, uncomplicated; Z68.42 Body mass index [BMI] 45.0-49.9, adult; D62 Acute posthemorrhagic anemia; I12.9 Hypertensive chronic kidney disease with stage 1 through stage 4 chronic kidney disease, or unspecified chronic kidney disease; Z20.822 Contact with and (suspected) exposure to COVID-19; F19.10 Other psychoactive substance abuse, uncomplicated; S70.02XA Contusion of left hip, initial encounter; D63.1 Anemia in chronic kidney disease; W19.XXXA Unspecified fall, initial encounter; E66.01 Morbid (severe) obesity due to excess calories; E87.5 Hyperkalemia; R00.0 Tachycardia, unspecified; T48.6X5A Adverse effect of antiasthmatics, initial encounter; Z71.3 Dietary counseling and surveillance; G47.33 Obstructive sleep apnea (adult) (pediatric); Z87.891 Personal history of nicotine dependence; Z85.118 Personal history of other malignant neoplasm of bronchus and lung; Z79.82 Long term (current) use of aspirin; Z79.52 Long term (current) use of systemic steroids; Z79.899 Other long term (current) drug therapy
CPT/HCPCS: 36415; 70450; 71250; 72125; 73502; 74176; 80048; 80051; 80053; 80307; 81001; 82010; 82040; 82140; 82803; 82947; 83605; 83735; 84100; 84443; 85025; 86850; 86900; 86901; 86920; 86922; 87040; 87633; 93005; 94640; 94660; 97162; 99285; J0360; J0456; J0696; J1644; J2270; J2919; J3360; J7120; P9016; P9047; S9485

== ENCOUNTER → 2024-10-23 17:21 | Outpatient (BNV) | payer MEDICARE, SELFPAY | PROVIDERS: PCP Internal Medicine; Visit Provider Radiology Diagnostic Radiology | DX: M54.2 Cervicalgia (principal); S09.90XA Unspecified injury of head, initial encounter; M25.522 Pain in left elbow; W19.XXXA Unspecified fall, initial encounter | CPT/HCPCS: 70450; 72125; 73502 ==

== ENCOUNTER → 2024-10-23 23:31 | Outpatient (BNV) | payer MEDICARE, SELFPAY | PROVIDERS: Admitting Provider Internal Medicine Critical Care Medicine; Emergency Provider Emergency Medicine; PCP Internal Medicine; Visit Provider Internal Medicine | DX: R00.0 Tachycardia, unspecified (principal) | CPT/HCPCS: 93010 ==

== ENCOUNTER → 2024-10-24 00:41 | Outpatient (BNV) | payer MEDICARE, SELFPAY | PROVIDERS: Emergency Provider Emergency Medicine; PCP Internal Medicine; Visit Provider Radiology Vascular & Interventional Radiology | DX: K42.9 Umbilical hernia without obstruction or gangrene (principal); K43.9 Ventral hernia without obstruction or gangrene; S70.02XA Contusion of left hip, initial encounter; J96.00 Acute respiratory failure, unspecified whether with hypoxia or hypercapnia; R91.8 Other nonspecific abnormal finding of lung field; I51.7 Cardiomegaly; I25.10 Atherosclerotic heart disease of native coronary artery without angina pectoris; W19.XXXA Unspecified fall, initial encounter; Z85.118 Personal history of other malignant neoplasm of bronchus and lung | CPT/HCPCS: 71250; 74176 ==

== ENCOUNTER 2024-10-24 08:52 | Outpatient (BNV) | payer MEDICARE, SELFPAY | END 2024-10-28 18:03 | PROVIDERS: Admitting Provider Internal Medicine Critical Care Medicine; Emergency Provider Emergency Medicine; PCP Internal Medicine; Visit Provider Internal Medicine | DX: R00.0 Tachycardia, unspecified (principal) | CPT/HCPCS: 93010 ==

== ENCOUNTER → 2024-10-24 08:52 | Outpatient (BNV) | payer MEDICARE, SELFPAY | PROVIDERS: Admitting Provider Internal Medicine Critical Care Medicine; Emergency Provider Emergency Medicine; PCP Internal Medicine; Visit Provider Nurse Practitioner Family | DX: N18.4 Chronic kidney disease, stage 4 (severe) (principal) | CPT/HCPCS: 99221 ==

== ENCOUNTER → 2024-10-24 08:52 | Outpatient (BNV) | payer MEDICARE, SELFPAY | PROVIDERS: Admitting Provider Internal Medicine Critical Care Medicine; Emergency Provider Emergency Medicine; PCP Internal Medicine; Visit Provider Internal Medicine Critical Care Medicine | DX: J44.9 Chronic obstructive pulmonary disease, unspecified (principal); J96.01 Acute respiratory failure with hypoxia; J96.12 Chronic respiratory failure with hypercapnia | CPT/HCPCS: 99223; 99291 ==

== ENCOUNTER → 2024-10-24 08:52 | Outpatient (BNV) | payer MEDICARE, SELFPAY | PROVIDERS: Admitting Provider Internal Medicine Critical Care Medicine; Emergency Provider Emergency Medicine; PCP Internal Medicine; Visit Provider Hospitalist | DX: J96.01 Acute respiratory failure with hypoxia (principal); J96.12 Chronic respiratory failure with hypercapnia; N18.5 Chronic kidney disease, stage 5; D63.1 Anemia in chronic kidney disease | CPT/HCPCS: 99232; 99239 ==

== ENCOUNTER 2024-11-20 14:29 | Outpatient (AMB) | payer MEDICARE, SELFPAY ==
--- OUTSIDE RECORDS SUMMARY | 2024-11-20 14:34 | XMS_ITS | Clinical Summary ---
Author Organization [facility] Address [address] [place] [address] Care Team Providers Care Motor Tune Up Specialist Name Role Phone Ref, Has No Pcp [...] age to complete this topic Insurance MEDICARE [facility] Care Teams Motor Tune Up Specialist Relationship Specialty Start Date End Date Ref, Has No Pcp Or DO NOT EDIT THIS RECORD VIA PROVIDER ON THE FLY PCP - General Medical Office Manager 06/10/21
--- OUTSIDE RECORDS SUMMARY | 2024-11-20 14:34 | XMS_ITS | Encounter Summary ---
Author Organization [facility] Address [address] [place] [address] Phone Care Team Providers Care Motor Operator Name Role Phone Angel Castano MD Primary Care Provider [phone]- [phone] Encounter Details Date Type Department Care Team (Late st Contact Info) Description 05/04/2022 Telephone [facility] [address] [place] [address] Kitty Menezes MA Social History [...] filedocumented in this encounter Care Teams Motor Operator Relationship Specialty Start Date End Date Angel Castano MD [facility] [place] [id number] PCP - General 02/19/20 documented as of this encounter
--- OUTSIDE RECORDS SUMMARY | 2024-11-20 14:34 | XMS_ITS | Clinical Summary ---
Author Organization [facility] Address [address] [place] [address] Phone Care Team Providers Care Manager Internet Retails Sales Name Role Phone Valerie Castano MD Primary [...] 01/31/2024 Chronic obstructive pulmonar y disease (COPD) ([facility] V24, [facility] V28) 01/31/2024 Congenital anomaly of diaphragm 01/31/2024 HTN (hypertension) 01/31/2024 Chronic back pain 01/31/2024 Lung cancer, middle lobe ([facility] V24, [facility] V 28) 12/29/2023 Cancer Staging:Clinical:Stage IB(cT2a, cN0, cM0) - Signed by Lonnie Mercer MD on 12/29/2023 Anemia in chronic kidney disease 08/10/2022 Chronic kidney disease, stag e 4 (severe) ([facility] V24, [facility] V28) 08/10/2022 Hypertensive renal disease [...] Comments OTHER SURGICAL HISTORY - 1989 PROCEDURE: OK CAUTERY CERVIX CRYOCAUTERY INITIAL/REPEAT; COMMENT: for abnormal pap OTHER SURGICAL HISTORY PROCEDURE: [place] LIG/TRNSXJ FLP TUBE ABDL/VAG APPR UNI/BI OTHER SURGICAL HISTORY 2012 PROCEDURE: OK EXPLORATORY LAPAROTOMY CELIOTOMY W/WO BIOPSY SPX; COMMENT: [...] MEDICAID - [place] MEDICARE Care Teams Manager Internet Ret[employer] Sales Relationship Specialty Start Date End Date Valerie Castano MD [address] [facility] [place] [address] PCP - General 05/21/10
--- OUTSIDE RECORDS SUMMARY | 2024-11-20 14:34 | XMS_ITS | Clinical Summary ---
Author Organization [facility] Address [address] [place] [address] [address] [place] [address] Phone Care Team Providers Care Script Girl Name Role Phone Angel Castano MD Primary Care Provider +1- [phone] Allergies Active Allergy Reactions Criticality Noted Date [...] stage I through stage IV, or unspecified 16757 Units IJ Every 14 days 11/22/2020 Active [...] patient's age to complete this topic Insurance Medicaid [place] [address] [facility] [address] [facility] [place] [facility] Medicare Care Teams Script Girl Relationship Specialty Start Date End Date Angel Castano MD [address] [facility] [place] [address] PCP - General 02/19/20
--- NOTE | 2024-11-20 14:50 | MHC.PC.OV ---
Vital Signs 11/20/24 14:57 Height 5 ft 1 in Weight 202 lb BMI 38.2 BP 100/78 Blood Pressure Location Rt brachial Position Sitting Respiration 20 Pulse 89 Pulse Source Pulse Oximeter Temp 98.2 F Temp Source Oral Pulse Oximetry (%) 96 Oxygen Delivery Method Nasal Cannula Intake Visit Reasons: HDF[facility], breathing problems Intake Note: Pt is here today for her HDF [facility] SOB Mechanical Maintenance Required: No Allergies ciprofloxacin (From Cipro) Allergy (Severe, Verified 11/20/24 14:58) HIVES/SWELLING, THROAT CLOSES shellfish derived (SHELLFISH DERIVED) Allergy (Intermediate, Verified 11/20/24 14:58) Vomiting NSAIDS (Non-Steroidal Anti-Inflamma Adverse Reaction (Severe, Verified 11/20/24 14:58) Avoid due to kidney disease Tobacco use date assessed: 11/20/24 Dental Screening Dental Screen Date: 11/20/24 Did you have a dental visit in the last 12 months?: No Did you have a dental problem in the last 6 months where you did not have access to dental care?: No Was dental information given to patient?: Patient declined HPI HD[facility], breathing problems HPI Details 64-year-old lady with a past medical history significant for COPD, substance use on methadone, chronic kidney disease, coronary artery disease, anxiety with depression, dyslipidemia morbid obesity, osteopenia, here today for follow-up after recent admission at [facility] where she was seen for acute hypoxic hypercapnic respiratory failure with altered mental status, heroin overdose, aspiration pneumonia requiring intubation and sedation. Patient was extubated on 11/03, now back to her baseline O2. 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 Polysubstance dependence including opioid type drug with complication, continuous use Falls frequently Acute on chronic anemia Anemia due to chronic kidney disease CKD (chronic kidney disease) Hip injury Back injury Dyslipidemia History of lung cancer Hx of bronchitis CKD (chronic kidney disease) stage 4, GFR 15-29 ml/min Morbid obesity COPD (chronic obstructive pulmonary disease) Polysubstance abuse Respiratory failure with hypoxia and hypercapnia Ambulates with cane Seasonal allergies Herpes zoster Osteopenia (~2017) Respiratory failure COVID-19 (~03/2021) Osteoarthritis of ankles, bilateral Olecranon bursitis of left elbow Tubulovillous adenoma of large intestine (~2020) Hx of cardiac arrest (~2015) O2 dependent History of claustrophobia History of seizure Anxiety and depression HTN (hypertension) Multiple fractures of ribs Anemia in chronic kidney disease Vitamin D deficiency Family history of colon cancer Restrictive lung disease LEO (obstructive sleep apnea) Surgical History Hx of tracheostomy History of esophagogastroduodenoscopy (EGD) (~2021) History of removal of ureteral stent (~2013) History of lung biopsy (~2019) History of colonoscopy (~2020) Umbilical hernia History of laparoscopy (~2012) History of hand surgery History of tubal ligation Family History Father Diabetes mellitus Mother Depression Mental health disorder Maternal Grandfather Colon cancer Sister No problems noted. Son No problems noted. Daughter No problems noted. Daughter No problems noted. Social History Household Members: Significant Other Housing: Other Housing Other:: Mobile Home Are you a primary caretaker resort to a significant other at home: No Do you presently have visiting nurse or other home services: Yes (VNA) Alcohol intake: never Comment: pt on 1:1 for safety Patient Tobacco Use Status: Former Tobacco user Tobacco use type: Cigarette Years Smoked: 25 yrs e-Cigarette/Vaping Use: Former Use Second Hand Smoke Exposure: No Substance Use Type: Former Substance User and Heroin Advance Directives Date on File: 03/21/21 service: No Current occupational status: unemployed and disabled Cognitive needs: No Hearing needs: No Vision needs: Yes Questionnaire PHQ-9 Over the last 2 weeks, how often have you been bothered by any of the following problems? 1. Little interest or pleasure in doing things: not at all 2. Feeling down, depressed, or hopeless: not at all 3. Trouble falling or staying asleep, or sleeping too much: not at all 4. Feeling tired or having little energy: several days 5. Poor appetite or overeating: not at all 6. Feeling bad about yourself - or that you are a failure or have let yourself or your family down: not at all 7. Trouble concentrating on things, such as reading the newspaper or watching television: not at all 8. Moving or speaking so slowly that other people could have noticed. Or the opposite - being so fidgety or restless that you have been moving around a lot more than usual: not at all 9. Thoughts that you would be better off or of hurting yourself in some way: not at all Total score: 1 Depression Screening Interpretation: Negative (Delphine Tom at [facility]) Depression Screening Done: Yes Source: Developed by Drs. Marco Ramirez, Elisa Kennedy, Warren Galvan and colleagues, with an educational cheo from [employer]. Thrive Questionnaire Date Thrive assessed: 11/20/24 I am a: Patient What is your living situation today?: I have a steady place to live Within the past 12 months, did the food you bought not last and you didn't have the money to get more?: Never true THRIVE Score: 0 AUDIT C Alcohol Use Questionnaire (AUDIT-C) 1. How often do you have a drink containing alcohol?: Never 3. How often do you have six or more drinks on one occasion?: Never Total Score: 0 TONIE-7 AMB Questionnaire TONIE-7 Date TONIE - 7 assessed: 09/14/24 Feeling nervous, anxious, or on edge: 0 = Not at all Not being able to stop or control worryin = Not at all Worrying too much about different things: 0 = Not at all Trouble relaxin = Not at all Being so restless that it is hard to sit still: 0 = Not at all Becoming easily annoyed or irritable: 0 = Not at all Feeling afraid as if something awful might happen: 0 = Not at all Total TONIE-7 score (0-4 normal; 5-9 mild; 10-14 moderate; 15-21 severe): 0 Source: Developed by Drs. Marco Ramirez, Elisa Kennedy, Warren Galvan and colleagues, with an educational cheo from [employer]. Physical exam (Primary Care) Vital Signs: Last Vital Signs Temp 98.2 F 11/20/24 14:57 Pulse 89 11/20/24 14:57 Resp 20 10/13/25 14:57 BP 100/78 11/20/24 14:57 Pulse Ox 96 11/20/24 14:57 Oxygen Delivery Method Nasal Cannula 11/20/24 14:57 BMI result Body Mass Index 38.2 Tobacco/Smoking Status: Tobacco use Status Tobacco use date assessed 11/20/24 11/20/24 14:54 Patient Tobacco Use Status Former Tobacco user 11/20/24 14:54 Tobacco use type Cigarette 11/20/24 14:54 e-Cigarette/Vaping Use Former Use 11/20/24 14:54 PHQ-9: PHQ-9 Score PHQ-9: Total score 1 11/20/24 15:06 Depression Screening Interpretation: Negative (Delphine Tom at [facility]) Thrive Assessment: Date of Thrive Assessment Date Thrive assessed 11/20/24 11/20/24 14:54 Office Procedures Flu Questionnaire Does the patient have a severe egg allergy?: No Does the patient have severe life threatening allergies?: No Does the patient have a fever or illness today?: No Has the patient ever had Guillain-Seale Syndrome?: No Has the patient ever had any past reaction to a flu shot?: No Immunizations Fluarix [id number] (PF) 45 mcg (15 mcg x 3)/0.5 mL IM syringe Performing Provider: Valerie Castano MD Performing Location: [facility] Administered by: Cinthia Jones CMA on 11/20/24 16:02 Dose Route Admin Location Dispensed Lot Number Expiration Date [facility] [place] Weed Control Inspector 0.5 mL IM Right Deltoid 0.5 mL [id number] 08/07/25 17102-088-86 [email or web address] VIS Given Date VIS Provided VIS Publication Date 11/20/24 Single Vaccine 24 Eligibility Eligibility Date Funding Source Not [facility] Eligible 11/20/24 Private Coding Level of Care Code Est Pt Level 4 (00590) Complex EM visit Add On G2211 Diagnoses Acute on chronic respiratory failure with hypoxia and hypercapnia J96.21; J96.22 Polysubstance abuse F19.10 CKD (chronic kidney disease) stage 4, GFR 15-29 ml/min N18.4 snf current use of methadone for pain control Z79.891 Assessment & Plan Assessment & Plan (1) Acute on chronic respiratory failure with hypoxia and hypercapnia: Comment: This patient has longstanding chronic respiratory failure with hypoxemia and hypercapnia. She has been prescribed BiPAP treatment at home but she has not been able to tolerate. Uses O2 2 L/minute. Today she had cut down warm L/minute to avoid hypercapnia but O2 sat was in mid. 80s so I instructed her to use up to 2 L/minute to keep O2 sat 89 to 91% Code(s): J96.21 - Acute and chronic respiratory failure with hypoxia; J96.22 - Acute and chronic respiratory failure with hypercapnia Category: Medical (2) Polysubstance abuse: Comment: I told her that it is her substance abuse which makes her respiratory failure worse and, she ends up in the hospital. The only way to avoid rehospitalization is to completely refrain from substance abuse. 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
[2024-11-20 14:57] VITALS: BP 100/78; PULSE 89; RESP 20; TEMP 36.8; O2SAT 96; BMI 38.2
== END 2024-11-20 15:55 | disposition home or self-care (01) ==
LOC: HO.HMCC 14:30
PROVIDERS: PCP Internal Medicine; Visit Provider Internal Medicine
DX: Z23 Encounter for immunization (principal)

== ENCOUNTER → 2024-11-20 14:29 | Outpatient (BNVA) | payer MEDICARE, SELFPAY | PROVIDERS: PCP Internal Medicine; Visit Provider Internal Medicine | DX: J96.21 Acute and chronic respiratory failure with hypoxia (principal); J96.22 Acute and chronic respiratory failure with hypercapnia; N18.4 Chronic kidney disease, stage 4 (severe); I48.91 Unspecified atrial fibrillation; F11.20 Opioid dependence, uncomplicated; Z99.81 Dependence on supplemental oxygen; Z23 Encounter for immunization | CPT/HCPCS: 90471; 90656; 96127; 99212 ==

== ENCOUNTER 2024-11-30 13:22 | Outpatient (AMB) | payer MEDICARE, SELFPAY ==
[2024-11-30 13:28] VITALS: BP 110/62; PULSE 91; O2SAT 93
--- NOTE | 2024-11-30 13:28 | HO.NEPHOV_ITS ---
Vital Signs 11/30/24 13:28 Height 5 ft 1 in BP 110/62 Blood Pressure Location Lt brachial Position Sitting Pulse 91 Pulse Source Pulse Oximeter Pulse Oximetry (%) 93 Oxygen Delivery Method Room Air Intake Visit Reasons: R/S 10/30/2024 Confirmed Felt Finisher Required: No Accompanied by: Spouse Allergies ciprofloxacin (From Cipro) Allergy (Severe, Verified 11/30/24 15:10) HIVES/SWELLING, THROAT CLOSES shellfish derived (SHELLFISH DERIVED) Allergy (Intermediate, Verified 11/30/24 15:10) Vomiting NSAIDS (Non-Steroidal Anti-Inflamma Adverse Reaction (Severe, Verified 11/30/24 15:10) Avoid due to kidney disease Medication List - Last Reconciled 11/30/24 by Fermin Muhammad MD acetaminophen 650 mg PO Q6H PRN apixaban (Eliquis) 5 mg PO BID aspirin 81 mg PO DAILY atorvastatin 10 mg PO BEDTIME azithromycin 250 mg PO 3XW 90 days Breo Ellipta 100-25 mcg/dose (fluticasone furoate-vilanterol) 1 ea PO DAILY 90 days NS carvedilol 3.125 mg PO BID cinacalcet 30 mg PO DAILY hydroxyzine pamoate 100 mg PO BEDTIME PRN ipratropium-albuterol 0.5 mg-3 mg(2.5 mg base)/3 mL 3 mL inhalation Q4-6H PRN levocetirizine 5 mg PO DAILY PRN lorazepam 1 mg PO BID PRN methadone 25 mg PO DAILY prednisone 5 mg PO DAILY sodium zirconium cyclosilicate (Lokelma) 10 grams PO DAILY torsemide 20 mg PO BID HPI Comments Details: 64 y/o female with advanced chronic obstructive pulmonary disease and chronic respiratory failure on supplemental oxygen. She has advanced CKD approaching end stage renal disease. Per Dr Muhammad's previous visit notes, he has discussed the need for dialysis if her kidney function decreases to 10% or less, or if she develops uremic symptoms, as well as the need for an AV fistula, which patient is considering. she is here for procrit injection for management of anemia of chronic disease. The patient reports experiencing fatigue and frequent episodes of falling as leep, which may be attributed to her anemia. Reports her shortness of breath improves after her epo shots. Her hemoglobin level is 8.9 g/dL, The anemia is likely contributing to her persistent tiredness. The patient also reports urinary retention, experiencing difficulty initiating urination at times, which she manages by lying down with her legs elevated. reports chronic SOB, states this is her baseline, states 90% O2 sat is around her baseline. denies chest pain, abdominal/flank pain, reports continues to void urine regularly. Denies nausea/vomiting, diarrhea. Denies pruritus, ticks/tremo rs, muscle cramping. Denies new brain fog/confusion. 11/30/2024. Recently hospitalized for respiratory failure. She tested positive for cocaine. She was on high dose of methadone. Sustained acute kidney injury and renal function improved [facility] Medical History (Updated 11/30/24 @ 15:23 by Mayte Cochran MD) COPD (chronic obstructive pulmonary disease) [facility] current use of methadone for pain control Polysubstance dependence including opioid type drug with complication, continuous use Falls frequently Acute on chronic anemia Anemia due to chronic kidney disease CKD (chronic kidney disease) Hip injury Back injury Dyslipidemia History of lung cancer Hx of bronchitis CKD (chronic kidney disease) stage 4, GFR 15-29 ml/min Morbid obesity Polysubstance abuse Respiratory failure with hypoxia and hypercapnia Ambulates with cane Seasonal allergies Herpes zoster Osteopenia (~2017) Respiratory failure COVID-19 (~03/2021) Osteoarthritis of ankles, bilateral Olecranon bursitis of left elbow Tubulovillous adenoma of large intestine (~2020) Hx of cardiac arrest (~2015) O2 dependent History of claustrophobia History of seizure Anxiety and depression HTN (hypertension) Multiple fractures of ribs Anemia in chronic kidney disease Vitamin D deficiency Family history of colon cancer Restrictive lung disease LEO (obstructive sleep apnea) Surgical History Hx of tracheostomy History of esophagogastroduodenoscopy (EGD) (~2021) History of removal of ureteral stent (~2013) History of lung biopsy (~2019) History of colonoscopy (~2020) Umbilical hernia History of laparoscopy (~2012) History of hand surgery History of tubal ligation Family History Father Diabetes mellitus Mother Depression Mental health disorder Maternal Grandfather Colon cancer Sister No problems noted. Son No problems noted. Daughter No problems noted. Daughter No problems noted. Social History Household Members: Significant Other Housing: Other Housing Other:: Mobile Home Are you a primary child care center assistant director to a significant other at home: No Do you presently have visiting nurse or other home services: Yes ([facility]) Alcohol intake: never Comment: pt on 1:1 for safety Patient Tobacco Use Status: Former Tobacco user Tobacco use type: Cigarette Years Smoked: 25 yrs e-Cigarette/Vaping Use: Former Use Second Hand Smoke Exposure: No Substance Use Type: Former Substance User and Heroin Advance Directives Date on File: 03/21/21 service: No Current occupational status: unemployed and disabled Cognitive needs: No Hearing needs: No Vision needs: Yes Physical Exam Vital Signs: Last Vital Signs Pulse 91 11/30/24 13:28 BP 110/62 11/30/24 13:28 Pulse Ox 93 11/30/24 13:28 Oxygen Delivery Method Room Air 11/30/24 13:28 Const General: comfortable Nutritional Appearance: well nourished Orientation/consciousness: patient oriented x3 HEENT Head: No normal to inspection Mouth: moist mucous membranes Neck Neck: Yes supple and Yes no JVD Resp Auscultation: clear to auscultation bilaterally and no rales Cardio Jugular venous distension: no JVD Palpation: no palpable S3 and no palpable S4 Heart sounds: no rubs GI Palpation (GI): Soft to palpation and nontender General: Yes no CVA tenderness Back/Spine/Pelvis Back: no CVA tenderness Skin General skin exam: no rashes or lesions noted Neuro General: patient oriented x3 Extrem General: No edema Office Meds epoetin [id number] 20,000 unit/mL injection solution Performing Provider: Fermin Muhammad MD Performing Location: [facility] [place] [facility] Administered by: Fermin Muhammad MD on 11/30/24 13:40 Dose Route Admin Location Dispensed Lot Number Expiration Date [facility] [employer] 20,000 unit subcut 1 mL [id number] 04/07/26 0947-1581-70 [employer] Total Dispensed Waste 1 mL 0 % Results Reviewed Results Reviewed: Recent creatinine was 3.3. Hemoglobin 10.1 Nephrology Results: Hgb, (12.0-16.0) 10.5 g/dl L 10/30/24 WBC, (4.8-10.8) 19.6 X10*3/uL H 10/30/24 Plt Count, (160-400) 311 X10*3/uL 10/30/24 Sodium, (135-145) 143 mmol/L 10/30/24 Potassium, (3.3-5.1) 4.9 mmol/L 10/30/24 Chloride, (96-108) 111 mmol/L H 10/30/24 Carbon Dioxide, (22-29) 21 mmol/L L 10/30/24 BUN, (9-16) 93 mg/dL H 10/30/24 Creatinine, (0.5-1.4) 4.61 mg/dL H* 10/30/24 Calcium, (8.4-10.2) 9.0 mg/dL 10/30/24 Phosphorus, (2.7-4.5) 7.0 mg/dL H 10/30/24 Urine Protein, (Neg-Trace) 100 (2+) mg/dL H 10/24/24 Renal US 03/25/21 Assessment & Plan Assessment & Plan (1) CKD (chronic kidney disease) stage 5, GFR less than 15 ml/min: Code(s): N18.5 - Chronic kidney disease, stage 5 Category: Medical Plan: Advanced CKD approaching end stage renal disease. No overt signs or symptoms of uremia. Goal is to slow the progression of the renal disease. We will continue to watch renal function closely and initiate dialysis when appropriate. At her request ,I switched torsemide 20 mg b.i.d. to Lasix 40 mg b.i.d.. (2) HTN (hypertension): Code(s): I10 - Essential (primary) hypertension Category: Medical Plan: Blood pressure is controlled No need for Cardizem ( was stopped in Jan 2023) Continue with Coreg 3.125 b.i.d.. No changes were made to her diabetic regimen. (3) Anemia due to chronic kidney disease: Code(s): N18.9 - Chronic kidney disease, unspecified; D63.1 - Anemia in chronic kidney disease Category: Medical Qualifiers: Chronic kidney disease stage: stage 5 (GFR < 15), not on chronic dialysis Qualified Code(s): N18.5 - Chronic kidney disease, stage 5; D63.1 - Anemia in chronic kidney disease Plan: Stable. 20,000 units of retacrit administered today. goal is hct 30-36%, Plan Encouraged her to avoid cocaine. Orders: Orders AMB Epoetin Injection Practice Supplied Today N40.1 - Benign prostatic hyperplasia with lower urinary tract symptoms Parathyroid Hormone Intact Today N18.4 - Chronic kidney disease, stage 4 (severe) Basic Metabolic Panel Today N18.4 - Chronic kidney disease, stage 4 (severe) Complete Blood Count no Diff 3 Weeks N18.4 - Chronic kidney disease, stage 4 (severe) Medications: New furosemide (Lasix) 40 mg PO BID 60 tabs 3RF Discontinued torsemide Discontinued Reason: Doctor's Order 20 mg PO BID 180 tabs 0RF Coding Level of Care Code Est Pt Level 4 (56482) Diagnoses CKD (chronic kidney disease) stage 5, GFR less than 15 ml/min N18.5 HTN (hypertension) I10 Anemia due to stage 5 chronic kidney disease, not on chronic dialysis N18.5; D63.1 Chronic kidney disease stage: stage 5 (GFR < 15), not on chronic dialysis
--- OUTSIDE RECORDS SUMMARY | 2024-11-30 16:57 | XMS_ITS | Clinical Summary ---
Author Organization [facility] Address [address] [place] [address] Care Team Providers Care Manager Salt Name Role Phone Ref, Has No Pcp [...] to complete this topic Insurance MEDICARE [facility] Care Teams Manager Salt Relationship Specialty Start Date End Date Ref, Has No Pcp Or DO NOT EDIT THIS RECORD VIA PROVIDER ON THE FLY PCP - General Gallery Or Museum Guide 06/10/21
--- OUTSIDE RECORDS SUMMARY | 2024-11-30 16:57 | XMS_ITS | Data Portability ---
Author Organization [place] - [facility] Address [address] [place] [id number] Care Team Providers Care Maintenance Mechanic Name Role Phone [facility] Primary Care Provider Assessment Encounter Date Assessment Date Assessment LastModified by Organization Details LastModified Time 08/19/2022 08/19/2022 Brief Overview: Pt is 62 year old F with previous medical history of CHF, COPD, lung cancer, htn, stage 4 kidney disease, [place], chronic lower extremity edema, with cc today [...] after care of this patient [facility] infection prevention protocols. Time On Scene with Patient: 00:33:49 [email or web address] Not available 08/19/2022 20:13:05 Plan of Treatment [...] By Organization Details Last Modified Time 08/19/2022 [id number] [facility]. You were seen today for [...] in your condition between 8am-10pm, please call [facility] at [phone] to help navigate your care. [email or web address] Not available 08/19/2022 13:24:42 Reason for Referral None Reported. Procedures Surgical History Date Name Laterality Status Provider Name and Address Organization Details Recorded Time ligation of fallopian tube completed Bianca Pascal NP [facility] [address], [place], [address], [place] [facility] 08/19/2022 13:21:29 tracheostomy, emergency procedure by transtracheal approach completed Bianca Pascal NP [address], [place], [address], [place] [facility] 08/19/2022 13:21:53 Imaging Results None recorded. Procedure Notes None recorded. Medical Equipment None Reported. Allergies Allergen ID Allergen Name Allergen Category Reaction Reaction Severity Criticality Documentation Date Start Date Code Code System Note Provider Name and Address Organization Details Recorded Time 669680 Cipro medicatio n Not available Not available Not available 08/19/202273349 3 RxNorm Bianca Pascal NP [address], [place], [address], [place] [facility] 13:18:54 Medications Name Sig Start [...] % 94 % 116/70 mm[Hg] Not Available [facility] 13:21:58 Social History Question Answer Notes LastModified by [employer] Details LastModified Time Tobacco Smoking Status Former Smoker Bianca Pascal, GIGI [address] [place], [address], [place] [facility] 08/19/2022 13:22:36 Do You Have An Advance Directive? Yes [email or web address] Information not available 08/19/2022 What Is Your Code Status? Full Code [email or web address] Information not available 08/19/2022 Within The Past 12 Months, Has It Happened That The Food You Bought Just Didn't Last And You Didn't Have Money To Get More. Sometimes True [email or web address] Information not available 08/19/2022 Within The Past 12 Months, Have You Worried That Your Food Would Run Out Before You Got Money To Buy More. Sometimes True [email or web address] Information not available 08/19/2022 Fall Risk: Do You Feel Unsteady When Standing Or Walking? Yes Information not available 08/19/2022 Does This Patient Have A PCP? Yes [email or web address] Information not available 08/17/2022 Has The Patient Seen Their PCP In The Past 6 Months? Yes [email or web address] Information not available 08/17/2022 Social Support: Do You Feel Safe? Yes [email or web address] Information not available 08/19/2022 Has Tobacco Cessation Counseling Been Provided? No [email or web address] Information not available 08/19/2022 Sex: Unknown Functional Status Question Answer Note LastModified by [employer] Details LastModified Time Do you use any illicit or recreational drugs? Yes heroin use 2022 Information not available 08/19/2022 What is your level of alcohol consumption? None [email or web address] Information not available 08/19/2022 Mental Status None recorded. Family History Relationship Description Onset Age of this Age Resolved Age Notes LastModified by Organization Details LastModified Time Mother Malignant neoplastic disease [email or web address] Not available 2022 13:22:14 Maternal Grandfather Malignant neoplastic disease [email or web address] Not available 2022 13:22:24 Medical History Condition Response Cancer Y CHF Y Hypertension Y COPD Y Kidney Disease Gynecological HistoryNo gynecological history recorded. Obstetrics History GPAL:G 0 P 0 0 0 0 Past Encounters Encounter ID Performer Location Encounter Start Date Encounter Closed Date Diagnosis/Indication Diagnosis SNOMED-CT Code Diagnosis ICD10 Code Diagnosis IMO Codes Diagnosis Note [id number] Bianca Pascal NP [facility] [address] [facility] [address] 08/19/2022 12:35:34 08/20/2022 15:06:31 Stasis dermatitis 49986787 I87.2 Status of condition: Exacerbati on/Acute on [...] her healing. Lymphedema of bilateral lower limbs [id number] 2939472 I89.0 Status of condition: Chronic. Testing/Re sults: [...] ID Guarantor Name 08/21/2022 1 [place]IC[place] B-[place]: [employer] Deirdre Mcdaniel Gudelia [id number] Deirdre Gudelia 08/17/2022 1 *SELF PAY* Deirdre Gudelia [id number] Deirdre Gudelia 08/20/2022 2 [place]: [facility] Deirdrekarina YipGudelia [id number] Deirdre Yipsette Notes Date Note Type Note [...] 6 months ago. Bianca Pascal, GIGI [address], [place], [address], [place] [facility] 08/19/2022 20:14:10 OBGyn Episode No OBEpisode recorded.
--- OUTSIDE RECORDS SUMMARY | 2024-11-30 16:57 | XMS_ITS | Encounter Summary ---
Author Organization [facility] Address [address] [place] [address] Phone Care Team Providers Care Radiotelephone Technical Operator Name Role Phone Angel Castano MD Primary Care Provider [phone]- [phone] Encounter Details Date Type Department Care Team (Late st Contact Info) Description 05/04/2022 Telephone [facility] [address] [place] [address] Kitty Menezes MA Social History [...] on filedocumented in this encounter Care Teams Radiotelephone Technical Operator Relationship Specialty Start Date End Date Angel Castano MD [facility] [place] [id number] PCP - General 02/19/20 documented as of this encounter
--- OUTSIDE RECORDS SUMMARY | 2024-11-30 16:57 | XMS_ITS | Clinical Summary ---
Author Organization [facility] Address [address] [place] [address] Phone Care Team Providers Care Laundry Supervisor Name Role Phone Valerie Castano MD Primary [...] 01/31/2024 Chronic obstructive pulmonar y disease (COPD) ([facility] V24, [facility] V28) 01/31/2024 Congenital anomaly of diaphragm 01/31/2024 HTN (hypertension) 01/31/2024 Chronic back pain 01/31/2024 Lung cancer, middle lobe (CMS/[facility] V24, [facility] V 28) 12/29/2023 Cancer Staging:Clinical:Stage IB(cT2a, cN0, cM0) - Signed by Lonnie Mercer MD on 12/29/2023 Anemia in chronic kidney disease 08/10/2022 Chronic kidney disease, stag e 4 (severe) (CMS/[facility] V24, [facility] V28) 08/10/2022 Hypertensive renal disease [...] Comments OTHER SURGICAL HISTORY - 1989 PROCEDURE: FL CAUTERY CERVIX CRYOCAUTERY INITIAL/REPEAT; COMMENT: for abnormal pap OTHER SURGICAL HISTORY PROCEDURE: [place] LIG/TRNSXJ FLP TUBE ABDL/VAG APPR UNI/BI OTHER SURGICAL HISTORY 2012 PROCEDURE: FL EXPLORATORY LAPAROTOMY CELIOTOMY W/WO BIOPSY SPX; COMMENT: [...] Comments Cervical Cancer Screening: Pap Smear 05/30/1983 RSV Immunization Adult Patients (1 - Risk 50-74 years 1-dose series) 2012 Pneumococcal Vaccine: 50+ Years (4 of 4 - PCV20 or PCV21) 02/19/2020 02/18/2015, 03/22/2012, 05/18/2011 Breast Cancer Screening 07/28/2020 07/29/19 19, 07/27/2017, 07/20/2016 Cholesterol Screening (Lipid Panel) 01/11/2022 HIV Screening 01/11/2022 Hepatitis C Screening 01/11/2022 Medicare Annual Wellness Visit 01/11/2022 Social Influencers of Health Screening 01/11/2022 Hypertension/CHF/CAD Annual BMP Blood Test 01/28/2024 06/10/2021 [...] cancer risk category Low (<15%) Procedure Note uNvia Westfall MD - 01/27/2022 This is a [...] Insurance MEDICA[place] - [place] MEDICARE Care Teams Laundry Supervisor Relationship Specialty Start Date End Date Valerie Castano MD [address] [place] [address] PCP - General 05/21/10
--- OUTSIDE RECORDS SUMMARY | 2024-11-30 16:57 | XMS_ITS | Clinical Summary ---
Author Organization [facility] Address [address] [place] [address] [address] [place] [address] Phone Care Team Providers Care Student Development Dean Name Role Phone Angel Castano MD Primary Care Provider +1- [phone] Allergies Active Allergy Reactions Criticality Noted Date [...] stage I through stage IV, or unspecified 39593 Units IJ Every 14 days 11/22/2020 Active [...] complete this topic Insurance Medicaid [place] [address] [facility] [place] [facility] Medicare Care Teams Student Development Dean Relationship Specialty Start Date End Date Angel Castano MD [address] [facility] [place] [address] PCP - General 02/19/20
== END 2024-11-30 13:44 | disposition home or self-care (01) ==
LOC: HO.HKA 13:23
PROVIDERS: PCP Internal Medicine; Visit Provider Internal Medicine Hypertension Specialist
DX: N18.5 Chronic kidney disease, stage 5 (principal); I12.0 Hypertensive chronic kidney disease with stage 5 chronic kidney disease or end stage renal disease; D63.1 Anemia in chronic kidney disease; N40.1 Benign prostatic hyperplasia with lower urinary tract symptoms
CPT/HCPCS: 99214

== ENCOUNTER → 2024-11-30 13:22 | Outpatient (BNVA) | payer MEDICARE, SELFPAY | PROVIDERS: PCP Internal Medicine; Visit Provider Internal Medicine Hypertension Specialist | DX: I12.0 Hypertensive chronic kidney disease with stage 5 chronic kidney disease or end stage renal disease (principal); N18.5 Chronic kidney disease, stage 5; D63.1 Anemia in chronic kidney disease; J44.9 Chronic obstructive pulmonary disease, unspecified; J96.21 Acute and chronic respiratory failure with hypoxia; J96.22 Acute and chronic respiratory failure with hypercapnia; E66.01 Morbid (severe) obesity due to excess calories; F19.10 Other psychoactive substance abuse, uncomplicated; Z87.891 Personal history of nicotine dependence; Z99.81 Dependence on supplemental oxygen | CPT/HCPCS: 96372; 99212; Q5106 ==

== ENCOUNTER 2024-11-30 14:11 | Outpatient (AMB) | payer MEDICARE, SELFPAY ==
--- NOTE | 2024-11-30 14:35 | A.OFFVIS_ITS ---
Vital Signs 11/30/24 14:36 Height 5 ft 1 in BP 118/74 Blood Pressure Location Lt brachial Position Sitting Pulse 90 Pulse Source Pulse Oximeter Pulse Oximetry (%) 94 Oxygen Delivery Method Nasal Cannula Oxygen Flow Rate 2 Intake Visit Reasons: COPD Intake Note: pt is here for follow up and states she is stuggling with the vent usage but still trying, very claustrophobic causing the issue with usage, She is feeling better, little more alert. Supervisor Shuttle Fitting Required: No Allergies ciprofloxacin (From Cipro) Allergy (Severe, Verified 11/30/24 15:10) HIVES/SWELLING, THROAT CLOSES shellfish derived (SHELLFISH DERIVED) Allergy (Intermediate, Verified 11/30/24 15:10) Vomiting NSAIDS (Non-Steroidal Anti-Inflamma Adverse Reaction (Severe, Verified 11/30/24 15:10) Avoid due to kidney disease Medication List - Last Reconciled 11/30/24 by Mayte Cochran MD acetaminophen 650 mg PO Q6H PRN apixaban (Eliquis) 5 mg PO BID aspirin 81 mg PO DAILY atorvastatin 10 mg PO BEDTIME azithromycin 250 mg PO 3XW 90 days Breo Ellipta 100-25 mcg/dose (fluticasone furoate-vilanterol) 1 ea PO DAILY 90 days NS carvedilol 3.125 mg PO BID cinacalcet 30 mg PO DAILY furosemide (Lasix) 40 mg PO BID hydroxyzine pamoate 100 mg PO BEDTIME PRN ipratropium-albuterol 0.5 mg-3 mg(2.5 mg base)/3 mL 3 mL inhalation Q4-6H PRN levocetirizine 5 mg PO DAILY PRN lorazepam 1 mg PO BID PRN methadone 25 mg PO DAILY prednisone 5 mg PO DAILY sodium zirconium cyclosilicate (Lokelma) 10 grams PO DAILY Do you need a note to return to daycare/school/sports/work: No HPI HPI COPD: Details: IMTIAZ IS HERE FOR FOLLOW-UP AFTER BEING DISCHARGED FROM [facility]. SHE HAS BEEN ADMITTED TO [facility] TWICE FOR ACUTE ON CHRONIC RESPIRATORY FAILURE. IN THE HOSPITAL WHEN USING NIVS SHE FELT MUCH BETTER. SHE HAS BEEN DISCHARGED NOW WITH HOME RESPIRATOR, AND CONTINUES TO USE O2 2 L/MINUTE. METHADONE DOSE HAS BEEN CUT DOWN TO NO MORE THAN 25 MG DAILY. SHE IS STILL USING THE VENTILATOR ONLY FOR 1 OR 2 HOURS PER NIGHT. CLAIMS THAT SHE IS CLAUSTROPHOBIC. HOWEVER HER MENTAL STATUS IS REMAINING BRIGHTER AND SHE IS MOSTLY AWAKE DURING THE DAYTIME. [facility] Medical History (Updated 11/30/24 @ 15:23 by Mayte Cochran MD) COPD (chronic obstructive pulmonary disease) skilled nursing current use of methadone for pain control Polysubstance dependence including opioid type drug with complication, continuous use Falls frequently Acute on chronic anemia Anemia due to chronic kidney disease CKD (chronic kidney disease) Hip injury Back injury Dyslipidemia History of lung cancer Hx of bronchitis CKD (chronic kidney disease) stage 4, GFR 15-29 ml/min Morbid obesity Polysubstance abuse Respiratory failure with hypoxia and hypercapnia Ambulates with cane Seasonal allergies Herpes zoster Osteopenia (~2017) Respiratory failure COVID-19 (~03/2021) Osteoarthritis of ankles, bilateral Olecranon bursitis of left elbow Tubulovillous adenoma of large intestine (~2020) Hx of cardiac arrest (~2015) O2 dependent History of claustrophobia History of seizure Anxiety and depression HTN (hypertension) Multiple fractures of ribs Anemia in chronic kidney disease Vitamin D deficiency Family history of colon cancer Restrictive lung disease LEO (obstructive sleep apnea) Surgical History Hx of tracheostomy History of esophagogastroduodenoscopy (EGD) (~2021) History of removal of ureteral stent (~2013) History of lung biopsy (~2019) History of colonoscopy (~2020) Umbilical hernia History of laparoscopy (~2012) History of hand surgery History of tubal ligation Family History Father Diabetes mellitus Mother Depression Mental health disorder Maternal Grandfather Colon cancer Sister No problems noted. Son No problems noted. Daughter No problems noted. Daughter No problems noted. Social History Household Members: Significant Other Housing: Other Housing Other:: Mobile Home Are you a primary childbirth and infant care teacher to a significant other at home: No Do you presently have visiting nurse or other home services: Yes ([facility]) Alcohol intake: never Comment: pt on 1:1 for safety Patient Tobacco Use Status: Former Tobacco user Tobacco use type: Cigarette Years Smoked: 25 yrs e-Cigarette/Vaping Use: Former Use Second Hand Smoke Exposure: No Substance Use Type: Former Substance User and Heroin Advance Directives Date on File: 03/21/21 service: No Current occupational status: unemployed and disabled Cognitive needs: No Hearing needs: No Vision needs: Yes Review of Systems Const All systems reviewed & are unremarkable except as noted in HPI and below Eyes Reports no additional complaints ENT Reports no additional complaints Card Denies chest pain, Denies irregular heart rhythm and Denies leg edema Resp Reports as per HPI and Reports other (RIGHT-SIDED RIBCAGE PAIN IS NEW DUE TO THE FALL AT HOME) GI Denies no additional complaints Denies no additional complaints Musc Reports abnormal gait (IMPAIRED LOCOMOTION, WALKS SLOW, WITH MINIMAL SUPPORT) and Reports back pain Skin/Breast Reports system reviewed and no additional complaints, except as documented Neuro Reports abnormal gait (IMPAIRED LOCOMOTION, WALKS SLOW, WITH MINIMAL SUPPORT) Psych Reports no additional complaints Physical Exam Vital Signs: Last Vital Signs Pulse 90 11/30/24 14:36 BP 118/74 11/30/24 14:36 Pulse Ox 94 11/30/24 14:36 Oxygen Delivery Method Nasal Cannula 11/30/24 14:36 Oxygen Flow Rate 2 11/30/24 14:36 Const General: comfortable, no acute distress, alert, awake and other (WALKS SLOWLY, WITH THE HELP OF A CANE.) Orientation/consciousness: patient oriented x3 HEENT Head: Yes normal to inspection General nose exam: No nasal polyps present and No nasal discharge present Face and sinus: Yes sinuses nontender Mouth: oropharynx normal Teeth and gingiva: other (THROAT IS CLEAR NO THRUSH AND NO EXTRA MUCUS NOTED) Throat: Yes posterior oropharynx normal Eyes General: appearance normal, both eyes and all related structures Neck Neck: Yes normal visual inspection, Yes no lymphadenopathy, Yes trachea midline and Yes no JVD Thyroid: Thyroid normal Chest Chest palpation & inspection: abnormal inspection of the chest (IMTIAZ HAS EXTENSIVE ECCHYMOTIC SPOTS OVER THE BACK, AND CHEST WALL), abnormal palpation of chest wall (TENDER TO TOUCH, ON THE POSTERIOR CHEST ) and no tenderness Resp Other: PERCUSSION NOTE IS RESONANT, BREATH SOUNDS ARE VERY DISTANT BUT EQUAL ON BOTH SIDES. NO WHEEZES OR RHONCHI ARE HEARD TODAY. Cardio Palpation: PMI not normal (PMI IS NOT PALPABLE.) and other Rate: regular rate Rhythm: regular rhythm Heart sounds: no gallops and no murmurs GI Palpation (GI): Soft to palpation, nontender, No hepatosplenomegaly present, no masses and Other GI palpation findings present (ABDOMEN IS OBESE AND PROTUBERANT) Auscultation: normal bowel sounds Back/Spine/Pelvis Other: SHE IS TENDER OVER RIGHT HIP. THERE ARE MULTIPLE ECCHYMOTIC SPOTS OVER THE LOWER BACK Thoracic/Lumbar Spine: thoraco-lumbar ROM limited Skin General skin exam: no rashes or lesions noted Neuro General: patient oriented x3, No gait normal (GAIT IS SLOW AND SLIGHTLY UNSTABLE PATIENT NEEDS A CANE TO WALK) and no focal motor deficits Cranial nerves: Yes CN's II-XII intact bilaterally Extrem General: Yes normal to inspection, Yes no calf tenderness and Yes edema (CHRONIC STASIS EDEMA OF THE LEGS) Psych Appearance: grossly normal and well kempt Speech and movement: Normal speech and movement present Results Reviewed Results Reviewed: VENOUS BLOOD GAS TEST ORDERED Assessment & Plan Assessment & Plan (1) COPD (chronic obstructive pulmonary disease): Comment: PATIENT HAS LONG-STANDING HISTORY OF CHRONIC OBSTRUCTIVE PULMONARY DISEASE PRIMARILY DUE TO HER LONG TIME SMOKING, SHE QUIT EARLIER IN 2022. GETS FREQUENT ACUTE EXACERBATIONS, WHICH ARE DEFINITELY MUCH LESS SINCE SHE IS ON AZITHROMYCIN THERAPY. CURRENTLY SHE IS ON PREDNISONE 5 MG EVERY OTHER DAY. Code(s): J44.9 - Chronic obstructive pulmonary disease, unspecified Category: Medical Plan: CONTINUE ALL THE REGULAR MEDICATIONS FOR COPD WHICH ARE FOLLOWS: BREO ELLIPTA 100-251 INHALATION DAILY AZITHROMYCIN 250 MG 3 DAYS A WEEK PREDNISONE 5 MG ON ALTERNATE DAYS. IPRATROPIUM-ALBUTEROL SOLUTION IN THE NEBULIZER Q 4 TO 6 HOURS P.R.N. (2) Acute on chronic respiratory failure with hypoxia and hypercapnia: Comment: This patient has longstanding chronic respiratory failure with hypoxemia and hypercapnia. She has been prescribed BiPAP treatment at home but she has not been able to tolerate. NOW BECAUSE SHE WAS ADMITTED TWICE WITH ACUTE ON CHRONIC RESPIRATORY FAILURE, SHE WAS TOLD THAT SHE HAS TO USE HOME VENTILATOR OTHERWISE SHE WILL BE SENT TO REHAB PLACE. THE HOME VENTILATOR HAS BEEN PROVIDED. SHE IS USING ONLY FOR 1 OR 2 HOURS PER NIGHT AND CLAIMS THAT SHE GETS CLAUSTROPHOBIC. EVEN WITH THIS MINIMAL USE HER MENTAL STATUS IS MUCH BRIGHTER, AND SHE IS BREATHING BETTER. Code(s): J96.21 - Acute and chronic respiratory failure with hypoxia; J96.22 - Acute and chronic respiratory failure with hypercapnia Category: Medical Plan: I HAD A LONG DISCUSSION WITH HER. EDUCATED HER ABOUT THE RATIONALE A FOR USING THE VENTILATOR, SHE SHOULD USE AT LEAST FOR 4-6 HOURS EVERY NIGHT, AND CAN ALSO USE FOR SHORT PERIODS DURING THE DAYTIME. I TOLD HER VERY BLUNTLY THAT IF SHE DOES NOT USE THE VENTILATOR PROPERLY AT HOME THEN SHE WOULD NEED TO GO TO A REHAB PLACE. (3) Morbid obesity: Comment: SHE IS CHRONICALLY OBESE MAINLY DUE TO LACK OF PHYSICAL ACTIVITY. SHE REMAINS AT RISK OF SLEEP APNEA/HYPOVENTILATION SYNDROME AND RESPIRATORY FAILURE. Code(s): E66.01 - Morbid (severe) obesity due to excess calories Category: Medical Plan: ONCE RESPIRATORY STATUS HAS BEEN STABILIZED SHE WOULD BE URGE TO START CUTTING THE ON THE CALORIES INTAKE TO LOSE WEIGHT. (4) Polysubstance abuse: Comment: SHE HAS PAST HISTORY OF POLYSUBSTANCE ABUSE. CURRENTLY SHE IS ON METHADONE THERAPY. SHE WAS STILL USING NARCOTIC . MEDS NOW SHE HAS PROMISES THAT SHE IS NOT GOING TO USE ANYTHING EXCEPT FOR METHADONE PRESCRIBED Code(s): F19.10 - Other psychoactive substance abuse, uncomplicated Category: Medical Plan: HAD A GOOD TALK AGAIN AND ENCOURAGED HER TO KEEP METHADONE NOSE LOW POSSIBLE. AND NO OPIOIDS ARE NARCOTICS FROM THE STREET. Orders: Orders Venous Blood Gas Today J96.21 - Acute and chronic respiratory failure with hypoxia, J96.22 - Acute and chronic respiratory failure with hypercapnia Coding Level of Care Code Est Pt Level 4 (06638) Diagnoses COPD (chronic obstructive pulmonary disease) J44.9 Acute on chronic respiratory failure with hypoxia and hypercapnia J96.21; J96.22 Morbid obesity E66.01 Polysubstance abuse F19.10
[2024-11-30 14:36] VITALS: BP 118/74; PULSE 90; O2SAT 94
== END 2024-11-30 15:12 | disposition home or self-care (01) ==
LOC: HO.HPS 14:11
PROVIDERS: PCP Internal Medicine; Visit Provider Internal Medicine
DX: J44.9 Chronic obstructive pulmonary disease, unspecified (principal); J96.21 Acute and chronic respiratory failure with hypoxia; J96.22 Acute and chronic respiratory failure with hypercapnia; E66.01 Morbid (severe) obesity due to excess calories; F19.10 Other psychoactive substance abuse, uncomplicated
CPT/HCPCS: 99214

== ENCOUNTER 2024-12-25 13:26 | Outpatient (REF) | payer MEDICARE, SELFPAY ==
[2024-12-25 16:16] LABS: Hematocrit 34.5 % (37.0-47.0); Hemoglobin 9.7 g/dl (12.0-16.0); Mean Corpuscular HGB Conc 28.1 g/dl (31.0-35.0); Mean Corpuscular Hemoglobin 26.9 pg (27.0-33.0); Mean Corpuscular Volume 95.6 fL (80.0-98.0); NRBC Abs Auto 0.020 X10*3/uL (0.0-0.012); NRBC Pct Auto 0.2 /100WBC (0.0-0.2); Platelet Count 357 X10*3/uL (160-400); Red Blood Count 3.61 X10*6/uL (4.20-5.50); White Blood Count 10.0 X10*3/uL (4.8-10.8)
[2024-12-25 16:55] LABS: Alanine Aminotransferase 15 U/L (0-31); Albumin Level 3.9 g/dL (3.5-5.0); Alkaline Phosphatase 93 U/L (39-117); Anion Gap 13 (12-20); Aspartate Amino Transferase 19 U/L (5-31); Blood Urea Nitrogen 32 mg/dL (9-16); Calcium 8.9 mg/dL (8.4-10.2); Carbon Dioxide 24 mmol/L (22-29); Chloride 114 mmol/L (96-108); Estimated Glomerular Filt Rate 13; Iron 52 mcg/dL (30-160); Magnesium 1.4 mg/dL (1.6-2.6); Percent Iron Saturation 24 % (15-50); Potassium 4.3 mmol/L (3.3-5.1); Sodium 147 mmol/L (135-145); Total Iron Binding Capacity 219 mcg/dL (228-428); Total Protein 6.8 g/dL (6.5-8.0); Unsaturated Iron Binding 167 ug/dL
[2024-12-25 16:56] LABS: Ferritin 143 ng/mL (10-250)
[2024-12-25 17:35] LABS: Parathyroid Hormone Intact 2472.3 pg/mL (8.7-77.1)
--- OUTSIDE RECORDS SUMMARY | 2024-12-26 02:27 | XMS_ITS | Data Portability ---
Author Organization [place] - [facility] Address [address] [place] [address] Care Team Providers Care Sdet Name Role Phone [facility] Primary Care Provider Assessment Encounter Date Assessment Date Assessment LastModified by Organization Details LastModified Time 08/19/2022 08/19/2022 Brief Overview: Pt is 62 year old F with previous medical history of CHF, COPD, lung cancer, htn, stage 4 kidney disease, [place], chronic lower extremity edema, with cc today [...] after care [facility] this [facility]. Time On Scene with Patient: 00:33:49 [email or web address] Not available 08/19/2022 20:13:05 Plan of Treatment [...] By Organization Details Last Modified Time 08/19/2022 [id number] [facility] you [facility] yo [facility]. You were seen today for [...] condition between 8am-10pm, please call [facility] at [phone] to help navigate your care. [email or web address] Not available 08/19/2022 13:24:42 Reason for Referral None Reported. Procedures Surgical History Date Name Laterality Status Provider Name and Address Organization Details Recorded Time ligation of fallopian tube completed Bianca Pascal NP [facility] [address], [place], [address], [place] [facility] 08/19/2022 13:21:29 tracheostomy, emergency procedure by transtracheal approach completed Bianca Pascal NP [address], [place], [address], [place] [facility] 08/19/2022 13:21:53 Imaging Results None recorded. Procedure Notes None recorded. Medical Equipment None Reported. Allergies Allergen ID Allergen Name Allergen Category Reaction Reaction Severity Criticality Documentation Date Start Date Code Code System Note Provider Name and Address Organization Details Recorded Time 418543 Cipro medicatio n Not available Not available Not available 08/19/202222448 3 RxNorm Bianca Pascal NP [address], [place], [address], [place] [facility] 13:18:54 Medications Name Sig Start Date [...] % 94 % 116/70 mm[Hg] Not Available [facility] 13:21:58 Social History Question Answer Notes LastModified by [employer] Details LastModified Time Tobacco Smoking Status Former Smoker Bianca Pascal, GIGI [address] [facility] [place], [address], [place] [facility] 08/19/2022 13:22:36 Do You Have An Advance Directive? Yes [email or web address] Information not available 08/19/2022 What Is Your Code Status? Full Code [email or web address] Information not available 08/19/2022 Within The Past 12 Months, Has It Happened That The Food You Bought Just Didn't Last And You Didn't Have Money To Get More. Sometimes True [email or web address] Information not available 08/19/2022 Within The Past 12 Months, Have You Worried That Your Food Would Run Out Before You Got Money To Buy More. Sometimes True Information not available 08/19/2022 Fall Risk: Do You Feel Unsteady When Standing Or Walking? Yes Information not available 08/19/2022 Does This Patient Have A PCP? Yes [email or web address] Information not available 08/17/2022 Has The Patient Seen Their PCP In The Past 6 Months? Yes [email or web address] Information not available 08/17/2022 Social Support: Do You Feel Safe? Yes [email or web address] Information not available 08/19/2022 Has Tobacco Cessation Counseling Been Provided? No Information not available 08/19/2022 Sex: Unknown Functional Status Question Answer Note LastModified by [employer] Details LastModified Time Do you use any illicit or recreational drugs? Yes heroin use 2022 Information not available 08/19/2022 What is your level of alcohol consumption? None [email or web address] Information not available 08/19/2022 Mental Status None recorded. Family History Relationship Description Onset Age of this Age Resolved Age Notes LastModified by Organization Details LastModified Time Mother Malignant neoplastic disease [email or web address] Not available 2022 13:22:14 Maternal Grandfather Malignant neoplastic disease [email or web address] Not available 2022 13:22:24 Medical History Condition Response Cancer Y CHF Y Hypertension Y COPD Y Kidney Disease Gynecological HistoryNo gynecological history recorded. Obstetrics History GPAL:G 0 P 0 0 0 0 Past Encounters Encounter ID Performer Location Encounter Start Date Encounter Closed Date Diagnosis/Indication Diagnosis SNOMED-CT Code Diagnosis ICD10 Code Diagnosis IMO Codes Diagnosis Note [id number] Bianca Pascal NP [facility] [address] [facility] [address] 08/19/2022 12:35:34 08/20/2022 15:06:31 Stasis dermatitis 04808976 I87.2 Status of condition: Exacerbati on/Acute on [...] her healing. Lymphedema of bilateral lower limbs [id number] 4881802 I89.0 Status of condition: Chronic. Testing/Re sults: [...] ID Guarantor Name 08/21/2022 1 [place] B-[place]: [employer] Deirdre Mcdaniel Gudelia [id number] Deirdre Gudelia 08/17/2022 1 *SELF PAY* Deirdre Gudelia [id number] Deirdre Gudelia 08/20/2022 2 [place]: [facility] Deirdrekarina YipGudelia [id number] Deirdre Yipsette Notes Date Note Type Note [...] ago. Bianca Pascal, GIGI [address], [place], [address], [place] [facility] 08/19/2022 20:14:10 OBGyn Episode No OBEpisode recorded.
== END 2024-12-25 13:27 | disposition home or self-care (01) ==
LOC: HO.HMGCLDS 13:26
PROVIDERS: Absent Provider Internal Medicine; PCP Internal Medicine; Visit Provider Internal Medicine Hypertension Specialist
DX: N18.5 Chronic kidney disease, stage 5 (principal); D63.1 Anemia in chronic kidney disease
CPT/HCPCS: 36415; 80053; 82728; 83540; 83735; 83970; 85027

== ENCOUNTER → 2024-12-26 23:59 | Outpatient (BNV) | payer MEDICARE, SELFPAY | PROVIDERS: PCP Internal Medicine; Visit Provider Internal Medicine | DX: J44.9 Chronic obstructive pulmonary disease, unspecified (principal); F11.99 Opioid use, unspecified with unspecified opioid-induced disorder; N18.5 Chronic kidney disease, stage 5 | CPT/HCPCS: G0179 ==

== ENCOUNTER 2024-12-27 16:05 | Outpatient (AMB) | payer MEDICARE, MEDICAID, SELFPAY ==
[2024-12-27 16:07] VITALS: BP 120/80; PULSE 99; O2SAT 94
--- NOTE | 2024-12-27 16:07 | A.OFFVIS_ITS ---
Vital Signs 12/27/24 16:07 Height 5 ft 1 in BP 120/80 Blood Pressure Location Lt brachial Position Sitting Pulse 99 Pulse Source Pulse Oximeter Pulse Oximetry (%) 94 Oxygen Delivery Method Nasal Cannula Oxygen Flow Rate 2 Intake Visit Reasons: COPD Intake Note: pt is here for follow up and states she feels it is going okay at home, trying very hard to use the vent nightly, Journeyman Meat Cutter Required: No Senior Attorney: Senior Attorney offered & declined Allergies ciprofloxacin (From Cipro) Allergy (Severe, Verified 12/27/24 16:16) HIVES/SWELLING, THROAT CLOSES shellfish derived (SHELLFISH DERIVED) Allergy (Intermediate, Verified 12/27/24 16:16) Vomiting NSAIDS (Non-Steroidal Anti-Inflamma Adverse Reaction (Severe, Verified 12/27/24 16:16) Avoid due to kidney disease Do you need a note to return to daycare/school/sports/work: No HPI HPI COPD: Details: IMTIAZ IS HERE FOR FOLLOW-UP AFTER 1 MONTH. AFTER HER LAST VISIT OVER HERE SHE ENDED UP IN [facility] BECAUSE OF NARCOTICS USE AND SEVERE RESPIRATORY FAILURE. SHE WAS DISCHARGED HOME AND TOLD TO USE THE RESPIRATOR REGULARLY EVERY NIGHT. SHE HAS STARTED USING IT MORE REGULARLY. SHE STILL USES MOSTLY DURING THE DAYTIME SAY IS THAT SHE CAN NOT USE IT AT NIGHT, FEELS CLAUSTROPHOBIC. SO SHE CAN USE IT BETTER WHEN SHE IS IN THE WHEELCHAIR RECLINER. SHE IS USING UP TO 4 HOURS PER DAY. SHE HAS NOT USED ANY ILLICIT NARCOTICS SINCE HER DISCHARGE FROM [facility]. SHE ADMITS THAT SHE HAS BEEN BETTER THAN BEFORE, SHE REMAINS MORE AWAKE. AND THE BREATHING IS UNDER CONTROL. STILL HAS INTERMITTENT COUGH.. [facility] Medical History COPD (chronic obstructive pulmonary disease) halfway current use of methadone for pain control Polysubstance dependence including opioid type drug with complication, continuous use Falls frequently Acute on chronic anemia Anemia due to chronic kidney disease CKD (chronic kidney disease) Hip injury Back injury Dyslipidemia History of lung cancer Hx of bronchitis CKD (chronic kidney disease) stage 4, GFR 15-29 ml/min Morbid obesity Polysubstance abuse Respiratory failure with hypoxia and hypercapnia Ambulates with cane Seasonal allergies Herpes zoster Osteopenia (~2017) Respiratory failure COVID-19 (~03/2021) Osteoarthritis of ankles, bilateral Olecranon bursitis of left elbow Tubulovillous adenoma of large intestine (~2020) Hx of cardiac arrest (~2015) O2 dependent History of claustrophobia History of seizure Anxiety and depression HTN (hypertension) Multiple fractures of ribs Anemia in chronic kidney disease Vitamin D deficiency Family history of colon cancer Restrictive lung disease LEO (obstructive sleep apnea) Surgical History Hx of tracheostomy History of esophagogastroduodenoscopy (EGD) (~2021) History of removal of ureteral stent (~2013) History of lung biopsy (~2019) History of colonoscopy (~2020) Umbilical hernia History of laparoscopy (~2012) History of hand surgery History of tubal ligation Family History Father Diabetes mellitus Mother Depression Mental health disorder Maternal Grandfather Colon cancer Sister No problems noted. Son No problems noted. Daughter No problems noted. Daughter No problems noted. Social History Household Members: Significant Other Housing: Other Housing Other:: Mobile Home Are you a primary adult care manager to a significant other at home: No Do you presently have visiting nurse or other home services: Yes ([facility]) Alcohol intake: never Comment: pt on 1:1 for safety Patient Tobacco Use Status: Former Tobacco user Tobacco use type: Cigarette Years Smoked: 25 yrs e-Cigarette/Vaping Use: Former Use Second Hand Smoke Exposure: No Substance Use Type: Former Substance User and Heroin Advance Directives Date on File: 03/21/21 service: No Current occupational status: unemployed and disabled Cognitive needs: No Hearing needs: No Vision needs: Yes Review of Systems Const All systems reviewed & are unremarkable except as noted in HPI and below Eyes Reports no additional complaints ENT Reports no additional complaints Card Denies chest pain, Denies irregular heart rhythm and Denies leg edema Resp Reports as per HPI and Reports other (RIGHT-SIDED RIBCAGE PAIN IS NEW DUE TO THE FALL AT HOME) GI Denies no additional complaints Denies no additional complaints Musc Reports abnormal gait (IMPAIRED LOCOMOTION, WALKS SLOW, WITH MINIMAL SUPPORT) and Reports back pain Skin/Breast Reports system reviewed and no additional complaints, except as documented Neuro Reports abnormal gait (IMPAIRED LOCOMOTION, WALKS SLOW, WITH MINIMAL SUPPORT) Psych Reports no additional complaints Physical Exam Vital Signs: Last Vital Signs Pulse 99 12/27/24 16:07 BP 120/80 12/27/24 16:07 Pulse Ox 94 12/27/24 16:07 Oxygen Delivery Method Nasal Cannula 12/27/24 16:07 Oxygen Flow Rate 2 12/27/24 16:07 Const General: comfortable, no acute distress, alert, awake and other (WALKS SLOWLY, WITH THE HELP OF A CANE.) Orientation/consciousness: patient oriented x3 HEENT Head: Yes normal to inspection General nose exam: No nasal polyps present and No nasal discharge present Face and sinus: Yes sinuses nontender Mouth: oropharynx normal Teeth and gingiva: other (THROAT IS CLEAR NO THRUSH AND NO EXTRA MUCUS NOTED) Throat: Yes posterior oropharynx normal Eyes General: appearance normal, both eyes and all related structures Neck Neck: Yes normal visual inspection, Yes no lymphadenopathy, Yes trachea midline and Yes no JVD Thyroid: Thyroid normal Chest Chest palpation & inspection: abnormal inspection of the chest (IMTIAZ HAS EXTENSIVE ECCHYMOTIC SPOTS OVER THE BACK, AND CHEST WALL), abnormal palpation of chest wall (TENDER TO TOUCH, ON THE POSTERIOR CHEST ) and no tenderness Resp Other: PERCUSSION NOTE IS RESONANT, BREATH SOUNDS ARE VERY DISTANT BUT EQUAL ON BOTH SIDES. NO WHEEZES OR RHONCHI ARE HEARD TODAY. Cardio Palpation: PMI not normal (PMI IS NOT PALPABLE.) and other Rate: regular rate Rhythm: regular rhythm Heart sounds: no gallops and no murmurs GI Palpation (GI): Soft to palpation, nontender, No hepatosplenomegaly present, no masses and Other GI palpation findings present (ABDOMEN IS OBESE AND PROTUBERANT) Auscultation: normal bowel sounds Back/Spine/Pelvis Other: SHE IS TENDER OVER RIGHT HIP. THERE ARE MULTIPLE ECCHYMOTIC SPOTS OVER THE LOWER BACK Thoracic/Lumbar Spine: thoraco-lumbar ROM limited Skin General skin exam: no rashes or lesions noted Neuro General: patient oriented x3, No gait normal (GAIT IS SLOW AND SLIGHTLY UNSTABLE PATIENT NEEDS A CANE TO WALK) and no focal motor deficits Cranial nerves: Yes CN's II-XII intact bilaterally Extrem General: Yes normal to inspection, Yes no calf tenderness and Yes edema (CHRONIC STASIS EDEMA OF THE LEGS) Psych Appearance: grossly normal and well kempt Speech and movement: Normal speech and movement present Results Reviewed Results Reviewed: COMPLIANCE REPORT FOR THE LAST 25 NIGHTS IS REVIEWED. SHE HAS USED IT EVERY NIGHT EXCEPT FOR 1 OR 2 NIGHTS. AVERAGE USAGE IS ONLY 5 HOURS THERE IS MODERATE AMOUNT OF AIR LEAK . RESIDUAL AHI 1.8 VENOUS BG TEST ORDERED 7.39 PCO2 33 PO2 47 Assessment & Plan Assessment & Plan (1) COPD (chronic obstructive pulmonary disease): Comment: PATIENT HAS LONG-STANDING HISTORY OF CHRONIC OBSTRUCTIVE PULMONARY DISEASE PRIMARILY DUE TO HER LONG TIME SMOKING, SHE QUIT EARLIER IN 2022. GETS FREQUENT ACUTE EXACERBATIONS, WHICH ARE DEFINITELY MUCH LESS SINCE SHE IS ON AZITHROMYCIN THERAPY. CURRENTLY SHE IS ON PREDNISONE 5 MG EVERY OTHER DAY. HER COPD SEEMS TO BE WELL CONTROLLED AT THIS TIME ON HER CURRENT REGIMEN. Code(s): J44.9 - Chronic obstructive pulmonary disease, unspecified Category: Medical Plan: ADVISED TO CONTINUE THE PRESENT REGIMEN WHICH INCLUDES AZITHROMYCIN 250 MG 3 DAYS A WEEK, . AND PREDNISONE 5 MG DAILY SHE WILL CONTINUE USING BREO 200-251 INHALATION DAILY. AND SHE WILL ALSO CONTINUE TO USE THE DUONEB UP TO HAVE T.I.D. (2) Acute on chronic respiratory failure with hypoxia and hypercapnia: Comment: This patient has longstanding chronic respiratory failure with hypoxemia and hypercapnia. She has been prescribed BiPAP treatment at home but she has not been able to tolerate. CURRENTLY SHE IS USING THE IVAPS / VENTILATORY SUPPORT AT NIGHT . IT SEEMS THAT SHE HAS FINALLY UNDERSTOOD THAT SHE HAS TO USE THE VENTILATOR SUPPORT, THE COMPLIANCE IS BETTER THAN BEFORE. MENTALLY SHE IS MUCH MORE ALERT TODAY. Code(s): J96.21 - Acute and chronic respiratory failure with hypoxia; J96.22 - Acute and chronic respiratory failure with hypercapnia Category: Medical Plan: ENCOURAGED TO KEEP ON USING THE IVAPS VENT SUPPORT DAILY FOR AT LEAST 6 HOURS EVERY DAY. VENOUS BLOOD GAS STUDY ORDERED TO CHECK THE CO2 LEVEL (3) Polysubstance abuse: Comment: SHE HAS PAST HISTORY OF POLYSUBSTANCE ABUSE. CURRENTLY SHE IS ON METHADONE THERAPY. SHE WAS STILL USING NARCOTIC . MEDS AND ENDING UP IN THE HOSPITAL FREQUENTLY. NOW SHE HAS PROMISED THAT SHE IS NOT GOING TO USE ANYTHING EXCEPT THE METHADONE PRESCRIBED Code(s): F19.10 - Other psychoactive substance abuse, uncomplicated Category: Medical Plan: COMMENDED FOR MAKING HER MIND NOT TO USE ANY NARCOTIC MEDS, EXCEPT METHADONE. Orders: Orders Venous Blood Gas 12/27/24 J44.9 - Chronic obstructive pulmonary disease, unspecified, J96.21 - Acute and chronic respiratory failure with hypoxia, J96.22 - Acute and chronic respiratory failure with hypercapnia Coding Level of Care Code Est Pt Level 3 (60308) Diagnoses COPD (chronic obstructive pulmonary disease) J44.9 Acute on chronic respiratory failure with hypoxia and hypercapnia J96.21; J96.22 Polysubstance abuse F19.10
--- OUTSIDE RECORDS SUMMARY | 2024-12-28 04:40 | XMS_ITS | Encounter Summary ---
Author Organization [facility] Address [address] [place] [address] Phone Care Team Providers Care Ceramic Products Sales Engineer Name Role Phone Angel Castano MD Primary Care Provider [phone]- [phone] Encounter Details Date Type Department Care Team (Late st Contact Info) Description 05/04/2022 Telephone [facility] [address] [place] [phone] Kitty Menezes MA Social History Tobacco Use [...] on file documented as of this encounter Functional Status documented as of this encounter Miscellaneous Notes [...] on filedocumented in this encounter Care Teams Ceramic Products Sales Engineer Relationship Specialty Start Date End Date Angel Castano MD PCP - General 02/19/20 documented as of this encounter
--- OUTSIDE RECORDS SUMMARY | 2024-12-28 04:40 | XMS_ITS | Data Portability ---
Author Organization [place] - [facility] Address [address] [place] [id number] Care Team Providers Care Professional Development Instructor Name Role Phone [facility] Primary Care Provider Assessment Encounter Date [...] after care [facility]. Time On Scene with Patient: 00:33:49 [email or web address] Not available 08/19/2022 20:13:05 Plan of Treatment [...] By Organization Details Last Modified Time 08/19/2022 [id number] [facility]. You were seen today for treatment [...] in your condition between 8am-10pm, please call [facility] at [phone] to help navigate your care. Not available 08/19/2022 13:24:42 Reason for Referral None Reported. Procedures Surgical History Date Name Laterality Status Provider Name and Address Organization Details Recorded Time ligation of fallopian tube completed Bianca Pascal NP [facility] [address], [place], [address], [place] - [facility] 08/19/2022 13:21:29 tracheostomy, emergency procedure by transtracheal approach completed Bianca Pascal NP [address], [place], [address], [place] [facility] 08/19/2022 13:21:53 Imaging Results None recorded. Procedure Notes None recorded. Medical Equipment None Reported. Allergies Allergen ID Allergen Name Allergen Category Reaction Reaction Severity Criticality Documentation Date Start Date Code Code System Note Provider Name and Address Organization Details Recorded Time 475884 Cipro medicatio n Not available Not available Not available 08/19/202296177 3 RxNorm Bianca Pascal NP [address], [place], [address], [place] [facility] 13:18:54 Medications Name Sig Start Date [...] % 94 % 116/70 mm[Hg] Not Available [facility] 13:21:58 Social History Question Answer Notes LastModified by [employer] Details LastModified Time Tobacco Smoking Status Former Smoker Bianca Pascal, [facility] [address] [facility] [place], [address], [place] [facility] 08/19/2022 13:22:36 Do You Have An Advance Directive? Yes [email or web address] Information not available 08/19/2022 What Is Your Code Status? Full Code [email or web address] Information not available 08/19/2022 Within The Past 12 Months, Has It Happened That The Food You Bought Just Didn't Last And You Didn't Have Money To Get More. Sometimes True [email or web address] Information not available 08/19/2022 Within The Past 12 Months, Have You Worried That Your Food Would Run Out Before You Got Money To Buy More. Sometimes True [email or web address] Information not available 08/19/2022 Fall Risk: Do You Feel Unsteady When Standing Or Walking? Yes [email or web address] Information not available 08/19/2022 Does This Patient Have A PCP? Yes [email or web address] Information not available 08/17/2022 Has The Patient Seen Their PCP In The Past 6 Months? Yes [email or web address] Information not available 08/17/2022 Social Support: Do You Feel Safe? Yes [email or web address] Information not available 08/19/2022 Has Tobacco Cessation Counseling Been Provided? No [email or web address] Information not available 08/19/2022 Sex: Unknown Functional Status Question Answer Note LastModified by [employer] Details LastModified Time Do you use any illicit or recreational drugs? Yes heroin use 2022 [email or web address] Information not available 08/19/2022 What is your level of alcohol consumption? None [email or web address] Information not available 08/19/2022 Mental Status None recorded. Family History Relationship Description Onset Age of this Age Resolved Age Notes LastModified by Organization Details LastModified Time Mother Malignant neoplastic disease [email or web address] Not available 2022 13:22:14 Maternal Grandfather Malignant neoplastic disease [email or web address] Not available 2022 13:22:24 Medical History Condition Response COPD Y CHF Y Cancer Y Hypertension Y Kidney Disease Gynecological HistoryNo gynecological history recorded. Obstetrics History GPAL:G 0 P 0 0 0 0 Past Encounters Encounter ID Performer Location Encounter Start Date Encounter Closed Date Diagnosis/Indication Diagnosis SNOMED-CT Code Diagnosis ICD10 Code Diagnosis IMO Codes Diagnosis Note [id number] Bianca Pascal NP [facility] [address] [place] [address] 08/19/2022 12:35:34 08/20/2022 15:06:31 Stasis dermatitis 44408100 I87.2 Status of condition: Exacerbati on/Acute on [...] her healing. Lymphedema of bilateral lower limbs [id number] I89.0 Status of condition: Chronic. Testing/Re sults: [...] ID Guarantor Name 08/21/2022 1 [place]ICARE B-[place]: [employer] Deirdre Mcdaniel Gudelia [id number] Deirdre Gudelia 08/17/2022 1 *SELF PAY* Deirdre Gudelia [id number] Deirdre Gudelia 08/20/2022 2 [place]: [facility] Deirdrekarina YipGudelia [id number] Deirdre Yipsette Notes Date Note Type Note [...] ago. Bianca Pascal, [employer] [address], [place], [address], [place] [facility] 08/19/2022 20:14:10 OBGyn Episode No OBEpisode recorded.
--- OUTSIDE RECORDS SUMMARY | 2024-12-28 04:40 | XMS_ITS | Clinical Summary ---
Author Organization [facility] Address [address] [place] [address] Care Team Providers Care Survey Associate Name Role Phone Ref, Has No Pcp [...] 2024 , 11/02/2019, 10/22/2018, Additional history exists COVID-19 Vaccine ( - 2024- season) 2024 09/23/2020, 05/22/2020, 05/01/2020 DTaP,Tdap,and Td Vaccines (4 - Td or Tdap) 01/13/2029 01/13/2019, 11/01/2012, 01/27/2010 RSV Vaccine (60+ years old and patients) (1 - 1-dose 75+ series) 2037 Zoster Vaccines Completed 10/22/2018, 08/16/2018 Hepatitis B Vaccines Aged Out No long er eligible based on patient's age to complete this topic Insurance MEDICARE [facility] Care Teams Survey Associate Relationship Specialty Start Date End Date Ref, Has No Pcp Or DO NOT EDIT THIS RECORD VIA PROVIDER ON THE FLY PCP - General 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
--- OUTSIDE RECORDS SUMMARY | 2024-12-28 04:40 | XMS_ITS | Clinical Summary ---
Author Organization [facility] Address [address] [place] [address] [address] [place] [address] Phone Care Team Providers Care Sliding Joint Maker Name Role Phone Angel Castano MD Primary Care Provider [phone]- [phone] Allergies Active Allergy Reactions Criticality Noted Date [...] stage I through stage IV, or unspecified 15362 Units IJ Every 14 days 11/22/2020 Active [...] Screening: Sigmoidoscopy 05/30/2011 Pneumococcal Vaccine: 50+ Years (4 of 4 - PCV20 or PCV21) 02/19/2020 02/18/2015, 03/22/2012, 05/18/2011 Influenza Vaccine (#1) 2024 Pneumococcal Vaccine: Peds ( 0 to 5 Years) and At-Risk Patients (6 to 49 Years) Discontinued 02/18/2015, 03/22/2012, 05/18/2011 Hepatitis B Vaccine Aged Out No longe r eligible based on patient's age to complete this topic Insurance Medicaid [place] [facility] Medicare Care Teams Sliding Joint Maker Relationship Specialty Start Date End Date Angel Castano MD PCP - General 02/19/20
== END 2024-12-27 16:31 | disposition home or self-care (01) ==
PROVIDERS: PCP Internal Medicine; Visit Provider Internal Medicine
DX: J44.9 Chronic obstructive pulmonary disease, unspecified (principal); J96.21 Acute and chronic respiratory failure with hypoxia; J96.22 Acute and chronic respiratory failure with hypercapnia; F19.10 Other psychoactive substance abuse, uncomplicated
CPT/HCPCS: 99213

== ENCOUNTER → 2024-12-27 16:05 | Outpatient (BNVA) | payer MEDICARE, SELFPAY | PROVIDERS: PCP Internal Medicine; Visit Provider Internal Medicine | DX: J96.21 Acute and chronic respiratory failure with hypoxia (principal); J96.22 Acute and chronic respiratory failure with hypercapnia; J44.9 Chronic obstructive pulmonary disease, unspecified; Z87.891 Personal history of nicotine dependence; F19.10 Other psychoactive substance abuse, uncomplicated; Z09 Encounter for follow-up examination after completed treatment for conditions other than malignant neoplasm; Z99.81 Dependence on supplemental oxygen | CPT/HCPCS: 99212 ==

== ENCOUNTER 2024-12-28 13:06 | Outpatient (AMB) | payer MEDICARE, SELFPAY ==
--- NOTE | 2024-12-28 13:10 | HO.NEPHOV_ITS ---
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 She has advanced CKD approaching end stage renal disease. Per Dr Muhammad's previous visit notes, he has discussed the need for dialysis if her kidney function decreases to 10% or less, or if she develops uremic symptoms, as well as the need for an AV fistula, which patient is considering. she is here for procrit injection for management of anemia of chronic disease. The patient reports experiencing fatigue and frequent episodes of falling asleep, which may be attributed to her anemia. Reports her shortness of breath improves after her epo shots. Her hemoglobin level is 8.9 g/dL, The anemia is likely contributing to her persistent tiredness. The patient also reports urinary retention, experiencing difficulty initiating urination at times, which she manages by lying down with her legs elevated. reports chronic SOB, states this is her baseline, states 90% O2 sat is around her baseline. denies chest pain, abdominal/flank pain, reports continues to void urine regularly. Denies nausea/vomiting, diarrhea. Denies pruritus, ticks/tremors, muscle cramping. Denies new brain fog/confusion. 11/30/2024. Recently hospitalized for respiratory failure. She tested positive for cocaine. She was on high dose of methadone. 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 Polysubstance dependence including opioid type drug with complication, julissa nuous use Falls frequently Acute on chronic anemia Anemia due to chronic kidney disease CKD (chronic kidney disease) Hip injury Back injury Dyslipidemia History of lung cancer Hx of bronchitis CKD (chronic kidney disease) stage 4, GFR 15-29 ml/min Morbid obesity Polysubstance abuse Respiratory failure with hypoxia and hypercapnia Ambulates with cane Seasonal allergies Herpes zoster Osteopenia (~2017) Respiratory failure COVID-19 (~03/2021) Osteoarthritis of ankles, bilateral Olecranon bursitis of left elbow Tubulovillous adenoma of large intestine (~2020) Hx of cardiac arrest (~2015) O2 dependent History of claustrophobia History of seizure Anxiety and depression HTN (hypertension) Multiple fractures of ribs Vitamin D deficiency Family history of colon cancer Restrictive lung disease LEO (obstructive sleep apnea) Surgical History Hx of tracheostomy History of esophagogastroduodenoscopy (EGD) (~2021) History of removal of ureteral stent (~2013) History of lung biopsy (~2019) History of colonoscopy (~2020) Umbilical hernia History of laparoscopy (~2012) History of hand surgery History of tubal ligation Family History Father Diabetes mellitus Mother Depression Mental health disorder Maternal Grandfather Colon cancer Sister No problems noted. Son No problems noted. Daughter No problems noted. Daughter No problems noted. Social History Household Members: Significant Other Housing: Other Housing Other:: Mobile Home Are you a primary primary care coordinator to a significant other at home: No Do you presently have visiting nurse or other home services: Yes ([facility]NA) Alcohol intake: never Comment: pt on 1:1 for safety Patient Tobacco Use Status: Former Tobacco user Tobacco use type: Cigarette Years Smoked: 25 yrs e-Cigarette/Vaping Use: Former Use Second Hand Smoke Exposure: No Substance Use Type: Former Substance User and Heroin Advance Directives Date on File: 03/21/21 service: No Current occupational status: unemployed and disabled Cognitive needs: No Hearing needs: No Vision needs: Yes Physical Exam Vital Signs: Last Vital Signs Pulse 81 12/28/24 13:12 BP 110/70 12/28/24 13:12 Pulse Ox 95 12/28/24 13:12 Oxygen Delivery Method Room Air 12/28/24 13:12 BMI result Body Mass Index 37.8 Const General: comfortable Nutritional Appearance: well nourished Orientation/consciousness: patient oriented x3 HEENT Head: No normal to inspection Mouth: moist mucous membranes Neck Neck: Yes supple and Yes no JVD Resp Auscultation: clear to auscultation bilaterally and no rales Cardio Jugular venous distension: no JVD Palpation: no palpable S3 and no palpable S4 Heart sounds: no rubs GI Palpation (GI): Soft to palpation and nontender General: Yes no CVA tenderness Back/Spine/Pelvis Back: no CVA tenderness Skin General skin exam: no rashes or lesions noted Neuro General: patient oriented x3 Extrem General: No edema Office Meds epoetin [id number] 20,000 unit/mL injection solution Performing Provider: Fermin Muhammad MD Performing Location: [facility] Administered by: Fermin Muhammad MD on 12/28/24 13:20 Dose Route Admin Location Dispensed Lot Number Expiration Date [facility] Content Director 20,000 unit subcut right arm 1 mL [id number] 04/07/26 6410-4764-40 [facility] Total Dispensed Waste 1 mL 0 % Results Reviewed Nephrology Results: Hgb, (12.0-16.0) 9.8 g/dl L Today WBC, (4.8-10.8) 8.0 X10*3/uL Today Plt Count, (160-400) 268 X10*3/uL Today Sodium, (135-145) 145 mmol/L Today Potassium, (3.3-5.1) 4.7 mmol/L Today Chloride, (96-108) 111 mmol/L H Today Carbon Dioxide, (22-29) 27 mmol/L Today BUN, (9-16) 38 mg/dL H Today Creatinine, (0.5-1.4) 4.04 mg/dL H* Today Calcium, (8.4-10.2) 9.1 mg/dL Today PTH Intact, (8.7-77.1) 2563.1 pg/mL H Today Renal US 03/25/21 Assessment & Plan Assessment & Plan (1) CKD (chronic kidney disease) stage 5, GFR less than 15 ml/min: Code(s): N18.5 - Chronic kidney disease, stage 5 Category: Medical Plan: Advanced CKD approaching end stage renal disease. No overt signs or symptoms of uremia. Goal is to slow the progression of the renal disease. We will continue to watch renal function closely and initiate dialysis when appropriate. (2) HTN (hypertension): Code(s): I10 - Essential (primary) hypertension Category: Medical Plan: Blood pressure is controlled No need for Cardizem ( was stopped in Jan 2023) Continue with Coreg 3.125 b.i.d.. No changes were made to her diabetic regimen. (3) Anemia due to chronic kidney disease: Code(s): N18.9 - Chronic kidney disease, unspecified; D63.1 - Anemia in chronic kidney disease Category: Medical Qualifiers: Chronic kidney disease stage: stage 5 (GFR < 15), not on chronic dialysis Qualified Code(s): N18.5 - Chronic kidney disease, stage 5; D63.1 - Anemia in chronic kidney disease Plan: Stable. 20,000 units of retacrit administered today. goal is hct 30-36%, Plan Encouraged her to avoid cocaine. Elevated PTH REstart Cinacalcet Orders: Orders Creatinine 3 Weeks N18.4 - Chronic kidney disease, stage 4 (severe) AMB Epoetin Injection Practice Supplied Today N18.4 - Chronic kidney disease, stage 4 (severe) Hemoglobin 3 Weeks N18.4 - Chronic kidney disease, stage 4 (severe) Potassium 3 Weeks N18.4 - Chronic kidney disease, stage 4 (severe), N18.5 - Chronic kidney disease, stage 5 Parathyroid Hormone Intact 3 Weeks N18.4 - Chronic kidney disease, stage 4 (severe) Medications: Refilled cinacalcet 30 mg PO DAILY 30 tabs 2RF Coding Level of Care Code Est Pt Level 4 (30887) Diagnoses CKD (chronic kidney disease) stage 5, GFR less than 15 ml/min N18.5 HTN (hypertension) I10 Anemia due to stage 5 chronic kidney disease, not on chronic dialysis N18.5; D63.1 Chronic kidney disease stage: stage 5 (GFR < 15), not on chronic dialysis
[2024-12-28 13:12] VITALS: BP 110/70; PULSE 81; O2SAT 95; BMI 37.8
== END 2024-12-28 13:23 | disposition home or self-care (01) ==
LOC: HO.HKA 13:07
PROVIDERS: PCP Internal Medicine; Visit Provider Internal Medicine Hypertension Specialist
DX: I12.9 Hypertensive chronic kidney disease with stage 1 through stage 4 chronic kidney disease, or unspecified chronic kidney disease (principal); N18.5 Chronic kidney disease, stage 5; D63.1 Anemia in chronic kidney disease; N18.4 Chronic kidney disease, stage 4 (severe)
CPT/HCPCS: 99214

== ENCOUNTER 2024-12-28 13:06 | Outpatient (REF) | payer MEDICARE, SELFPAY ==
[2024-12-28 13:54] LABS: Venous Blood Gas Refer to POC result
[2024-12-28 13:58] LABS: Hematocrit 34.3 % (37.0-47.0); Hemoglobin 9.8 g/dl (12.0-16.0); Mean Corpuscular HGB Conc 28.6 g/dl (31.0-35.0); Mean Corpuscular Hemoglobin 27.5 pg (27.0-33.0); Mean Corpuscular Volume 96.3 fL (80.0-98.0); NRBC Abs Auto 0.020 X10*3/uL (0.0-0.012); NRBC Pct Auto 0.2 /100WBC (0.0-0.2); Platelet Count 268 X10*3/uL (160-400); Red Blood Count 3.56 X10*6/uL (4.20-5.50); White Blood Count 8.0 X10*3/uL (4.8-10.8)
[2024-12-28 14:04] LABS: VBG HCO3 25 mmol/L (22-26)
[2024-12-28 14:45] LABS: Anion Gap 12 (12-20); Blood Urea Nitrogen 38 mg/dL (9-16); Calcium 9.1 mg/dL (8.4-10.2); Carbon Dioxide 27 mmol/L (22-29); Chloride 111 mmol/L (96-108); Estimated Glomerular Filt Rate 11; Iron 63 mcg/dL (30-160); Percent Iron Saturation 28 % (15-50); Potassium 4.7 mmol/L (3.3-5.1); Sodium 145 mmol/L (135-145); Total Iron Binding Capacity 222 mcg/dL (228-428); Unsaturated Iron Binding 159 ug/dL
[2024-12-28 14:54] LABS: Ferritin 119 ng/mL (10-250)
== END 2024-12-28 13:07 | disposition home or self-care (01) ==
LOC: HO.LAB 13:06
PROVIDERS: Absent Provider Internal Medicine; PCP Internal Medicine; Visit Provider Internal Medicine Hypertension Specialist
DX: I12.0 Hypertensive chronic kidney disease with stage 5 chronic kidney disease or end stage renal disease (principal); N18.5 Chronic kidney disease, stage 5; D63.1 Anemia in chronic kidney disease; J44.9 Chronic obstructive pulmonary disease, unspecified; Z87.891 Personal history of nicotine dependence; J96.10 Chronic respiratory failure, unspecified whether with hypoxia or hypercapnia; Z99.81 Dependence on supplemental oxygen
CPT/HCPCS: 36415; 80048; 82728; 82803; 83540; 83970; 85027; 96372; 99212; Q5106

== ENCOUNTER 2025-01-16 15:18 | Outpatient (AMB) | payer MEDICARE, MEDICAID, SELFPAY ==
[2025-01-16 15:30] VITALS: BP 122/60; PULSE 104; O2SAT 90; BMI 39.6
--- NOTE | 2025-01-16 15:30 | A.OFFVIS_ITS ---
Vital Signs 01/16/25 15:30 Height 5 ft 1 in Weight 209 lb 7.026 oz BMI 39.6 BP 122/60 Blood Pressure Location Lt brachial Position Sitting Pulse 104 H Pulse Oximetry (%) 90 L Oxygen Delivery Method Nasal Cannula Oxygen Flow Rate 2 Intake Visit Reasons: COPD Intake Note: pt is here for follow up and feels that the sinus are full and blowing out blood tinged nasal discharge, feel like she is starting with something. Sales Effectiveness Manager Required: No Allergies ciprofloxacin (From Cipro) Allergy (Severe, Verified 01/16/25 15:47) HIVES/SWELLING, THROAT CLOSES shellfish derived (SHELLFISH DERIVED) Allergy (Intermediate, Verified 01/16/25 15:47) Vomiting NSAIDS (Non-Steroidal Anti-Inflamma Adverse Reaction (Severe, Verified 01/16/25 15:47) Avoid due to kidney disease Medication List - Last Reconciled 01/16/25 by Mayte Cochran MD acetaminophen 650 mg PO Q6H PRN apixaban (Eliquis) 5 mg PO BID aspirin 81 mg PO DAILY atorvastatin 10 mg PO BEDTIME azithromycin 250 mg PO 3XW 90 days Breo Ellipta 100-25 mcg/dose (fluticasone furoate-vilanterol) 1 ea PO DAILY 90 days NS carvedilol 3.125 mg PO BID cinacalcet 30 mg PO DAILY furosemide (Lasix) 40 mg PO BID hydroxyzine pamoate 100 mg PO BEDTIME PRN ipratropium-albuterol 0.5 mg-3 mg(2.5 mg base)/3 mL 3 mL inhalation Q4-6H PRN levocetirizine 5 mg PO DAILY PRN lorazepam 1 mg PO BID PRN methadone 25 mg PO DAILY prednisone 5 mg PO DAILY sodium zirconium cyclosilicate (Lokelma) 10 grams PO DAILY PRN Do you need a note to return to daycare/school/sports/work: No HPI HPI COPD: Details: IMTIAZ Breen comes back for follow-up after 4 weeks. At least for the last 4 weeks she has stayed out of the hospital. Claims that she uses the respirator daily. According to the compliance report she is using 26/30 nights, and average usage time per night is 5 hours 38 minutes. Today she complains of nasal congestion with some blood-tinged discharge, she has come claiming that she has sinus infection. But she is already on azithromycin 250 mg p.o. 3 days a week. She has no temperature tenderness of the sinuses. She denies using any narcotics. 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 Polysubstance dependence including opioid type drug with complication, continuous use Falls frequently Acute on chronic anemia Anemia due to chronic kidney disease CKD (chronic kidney disease) Hip injury Back injury Dyslipidemia History of lung cancer Hx of bronchitis CKD (chronic kidney disease) stage 4, GFR 15-29 ml/min Morbid obesity Polysubstance abuse Respiratory failure with hypoxia and hypercapnia Ambulates with cane Seasonal allergies Herpes zoster Osteopenia (~2017) Respiratory failure COVID-19 (~03/2021) Osteoarthritis of ankles, bilateral Olecranon bursitis of left elbow Tubulovillous adenoma of large intestine (~2020) Hx of cardiac arrest (~2015) O2 dependent History of claustrophobia History of seizure Anxiety and depression HTN (hypertension) Multiple fractures of ribs Vitamin D deficiency Family history of colon cancer Restrictive lung disease LEO (obstructive sleep apnea) Surgical History Hx of tracheostomy History of esophagogastroduodenoscopy (EGD) (~2021) History of removal of ureteral stent (~2013) History of lung biopsy (~2019) History of colonoscopy (~2020) Umbilical hernia History of laparoscopy (~2012) History of hand surgery History of tubal ligation Family History Father Diabetes mellitus Mother Depression Mental health disorder Maternal Grandfather Colon cancer Sister No problems noted. Son No problems noted. Daughter No problems noted. Daughter No problems noted. Social History Household Members: Significant Other Housing: Other Housing Other:: Mobile Home Are you a primary health care consultant to a significant other at home: No Do you presently have visiting nurse or other home services: Yes ([facility]NA) Alcohol intake: never Comment: pt on 1:1 for safety Patient Tobacco Use Status: Former Tobacco user Tobacco use type: Cigarette Years Smoked: 25 yrs e-Cigarette/Vaping Use: Former Use Second Hand Smoke Exposure: No Substance Use Type: Former Substance User and Heroin Advance Directives Date on File: 03/21/21 service: No Current occupational status: unemployed and disabled Cognitive needs: No Hearing needs: No Vision needs: Yes Review of Systems Const All systems reviewed & are unremarkable except as noted in HPI and below Eyes Reports no additional complaints ENT Reports no additional complaints Card Denies chest pain, Denies irregular heart rhythm and Denies leg edema Resp Reports as per HPI and Reports other (RIGHT-SIDED RIBCAGE PAIN IS NEW DUE TO THE FALL AT HOME) GI Denies no additional complaints Denies no additional complaints Musc Reports abnormal gait (IMPAIRED LOCOMOTION, WALKS SLOW, WITH MINIMAL SUPPORT) and Reports back pain Skin/Breast Reports system reviewed and no additional complaints, except as documented Neuro Reports abnormal gait (IMPAIRED LOCOMOTION, WALKS SLOW, WITH MINIMAL SUPPORT) Psych Reports no additional complaints Physical Exam Vital Signs: Last Vital Signs Pulse 104 H 01/16/25 15:30 BP 122/60 01/16/25 15:30 Pulse Ox 90 L 01/16/25 15:30 Oxygen Delivery Method Nasal Cannula 01/16/25 15:30 Oxygen Flow Rate 2 01/16/25 15:30 BMI result Body Mass Index 39.6 Const General: comfortable, no acute distress, alert, awake and other (WALKS SLOWLY, WITH THE HELP OF A CANE.) Orientation/consciousness: patient oriented x3 HEENT Head: Yes normal to inspection General nose exam: No nasal polyps present and No nasal discharge present Face and sinus: Yes sinuses nontender Mouth: oropharynx normal Teeth and gingiva: other (THROAT IS CLEAR NO THRUSH AND NO EXTRA MUCUS NOTED) Throat: Yes posterior oropharynx normal Eyes General: appearance normal, both eyes and all related structures Neck Neck: Yes normal visual inspection, Yes no lymphadenopathy, Yes trachea midline and Yes no JVD Thyroid: Thyroid normal Chest Chest palpation & inspection: abnormal inspection of the chest (IMTIAZ HAS EXTENSIVE ECCHYMOTIC SPOTS OVER THE BACK, AND CHEST WALL), abnormal palpation of chest wall (TENDER TO TOUCH, ON THE POSTERIOR CHEST ) and no tenderness Resp Other: PERCUSSION NOTE IS RESONANT, BREATH SOUNDS ARE VERY DISTANT BUT EQUAL ON BOTH SIDES. NO WHEEZES OR RHONCHI ARE HEARD TODAY. Cardio Palpation: PMI not normal (PMI IS NOT PALPABLE.) and other Rate: regular rate Rhythm: regular rhythm Heart sounds: no gallops and no murmurs GI Palpation (GI): Soft to palpation, nontender, No hepatosplenomegaly present, no masses and Other GI palpation findings present (ABDOMEN IS OBESE AND PROTUBERANT) Auscultation: normal bowel sounds Back/Spine/Pelvis Other: SHE IS TENDER OVER RIGHT HIP. THERE ARE MULTIPLE ECCHYMOTIC SPOTS OVER THE LOWER BACK Thoracic/Lumbar Spine: thoraco-lumbar ROM limited Skin General skin exam: no rashes or lesions noted Neuro General: patient oriented x3, No gait normal (GAIT IS SLOW AND SLIGHTLY UNSTABLE PATIENT NEEDS A CANE TO WALK) and no focal motor deficits Cranial nerves: Yes CN's II-XII intact bilaterally Extrem General: Yes normal to inspection, Yes no calf tenderness and Yes edema (CHRONIC STASIS EDEMA OF THE LEGS) Psych Appearance: grossly normal and well kempt Speech and movement: Normal speech and movement present Results Reviewed Results Reviewed: Venous blood gas study on her last visit is reviewed with her. PH 7.22 PCO2 61 PO2 44 I WANTED TO CHECK HER BLOOD GAS AGAIN TODAY BUT SHE SAID SHE DOES NOT HAVE ANY TIME SHE DO DOES NOT WANT. TO MISS THE RIGHT Assessment & Plan Assessment & Plan (1) COPD (chronic obstructive pulmonary disease): Comment: PATIENT HAS LONG-STANDING HISTORY OF CHRONIC OBSTRUCTIVE PULMONARY DISEASE PRIMARILY DUE TO HER LONG TIME SMOKING, SHE QUIT EARLIER IN 2022. GETS FREQUENT ACUTE EXACERBATIONS, WHICH ARE DEFINITELY MUCH LESS SINCE SHE IS ON AZITHROMYCIN THERAPY. CURRENTLY SHE IS ON PREDNISONE 5 MG EVERY OTHER DAY. HER COPD SEEMS TO BE WELL CONTROLLED AT THIS TIME ON HER CURRENT REGIMEN. Code(s): J44.9 - Chronic obstructive pulmonary disease, unspecified Category: Medical Plan: CONTINUE TO USE BREO ELLIPTA 100-25 1 INHALATION DAILY IPRATROPIUM- ALBUTEROL SOLUTION IN THE NEBULIZER Q.4-6 HOURS PRN PREDNISONE 5 MG ON ALTERNATE DAYS. AZITHROMYCIN 250 MG P.O. 3 DAYS A WEEK (2) Acute on chronic respiratory failure with hypoxia and hypercapnia: Comment: This patient has longstanding chronic respiratory failure with hypoxemia and hypercapnia. She had been prescribed BiPAP treatment at home but she was able to tolerate. CURRENTLY SHE IS USING THE IVAPS / VENTILATORY SUPPORT AT NIGHT . IT SEEMS THAT SHE HAS FINALLY UNDERSTOOD THAT SHE HAS TO USE THE VENTILATOR SUPPORT, THE COMPLIANCE IS BETTER THAN BEFORE. She is still using less than 5-6 hours per night. MENTALLY SHE IS MUCH MORE ALERT THAN BEFORE . Code(s): J96.21 - Acute and chronic respiratory failure with hypoxia; J96.22 - Acute and chronic respiratory failure with hypercapnia Category: Medical Plan: DISCUSSED ABOUT THE NEED TO USE VENTILATOR 4 MORE HOURS PER DAY . I STRESSED THAT SHE HAS TO USE AT LEAST FOR 6 HOURS BUT 7-8 HOURS WILL BE EVEN BETTER. CONTINUE O2 2 L/MINUTE AND NOT MORE THAN THAT. (3) Polysubstance abuse: Comment: SHE HAS PAST HISTORY OF POLYSUBSTANCE ABUSE. CURRENTLY SHE IS ON METHADONE THERAPY. SHE WAS STILL USING NARCOTIC . MEDS AND ENDING UP IN THE HOSPITAL FREQUENTLY. NOW SHE HAS PROMISED THAT SHE IS NOT GOING TO USE ANYTHING EXCEPT THE METHADONE PRESCRIBED Code(s): F19.10 - Other psychoactive substance abuse, uncomplicated Category: Medical Plan: AGAIN STRESSED THAT SHE CAN NOT USE ANY NARCOTIC MEDS AT ALL (4) Morbid obesity: Comment: SHE IS CHRONICALLY OBESE MAINLY DUE TO LACK OF PHYSICAL ACTIVITY. SHE REMAINS AT RISK OF SLEEP APNEA/HYPOVENTILATION SYNDROME AND RESPIRATORY FAILURE. Code(s): E66.01 - Morbid (severe) obesity due to excess calories Category: Medical Plan: LOSING WEIGHT AT THIS TIME IS NOT THE MAIN PRIORITY. BUT IN FUTURE SHE DO NEED TO SHOULD OF SOME LB. Coding Level of Care Code Est Pt Level 3 (04366) Diagnoses COPD (chronic obstructive pulmonary disease) J44.9 Acute on chronic respiratory failure with hypoxia and hypercapnia J96.21; J96.22 Polysubstance abuse F19.10 Morbid obesity E66.01
--- OUTSIDE RECORDS SUMMARY | 2025-01-16 21:41 | XMS_ITS | Clinical Summary ---
Author Organization [facility] Address [address] [place] [address] Care Team Providers Care Spanish Interpreter/Translator Name Role Phone Ref, Hasnopcp Primary Care Provider Unavailabl e Allergies Active Allergy Reactions Criticality Noted Date [...] age to complete this topic Insurance MEDICARE [facility] Care Teams Spanish Interpreter/Translator Relationship Specialty Start Date End Date Ref, Hasnopcp DO NOT EDIT THIS RECORD VIA PROVIDER ON THE FLY PCP - General Recruiting Manager 06/10/21
--- OUTSIDE RECORDS SUMMARY | 2025-01-16 21:41 | XMS_ITS | Encounter Summary ---
Author Organization [facility] Address [address] [place] [address] Phone Care Team Providers Care Hide Handler Name Role Phone Angel Castano MD Primary Care Provider [phone]- [phone] Encounter Details Date Type Department Care Team (Late st Contact Info) Description 05/04/2022 Telephone [facility] [address] [place] [address] Kitty Menezes [place] Social History [...] on filedocumented in this encounter Care Teams Hide Handler Relationship Specialty Start Date End Date Angel Castano MD PCP - General 02/19/20 documented as of this encounter
--- OUTSIDE RECORDS SUMMARY | 2025-01-16 21:41 | XMS_ITS | Clinical Summary ---
Author Organization [facility] Address [address] [place] [address] [address] [place] [address] Phone Care Team Providers Care Transportation Equipment Painter Name Role Phone Angel Castano MD Primary Care Provider +1- [phone] Allergies Active Allergy Reactions Criticality Noted Date [...] stage I through stage IV, or unspecified 91713 Units IJ Every 14 days 11/22/2020 Active [...] age to complete this topic Insurance Medicaid [place] [facility] Medicare Care Teams Transportation Equipment Painter Relationship Specialty Start Date End Date Angel Castano MD PCP - General 02/19/20
--- OUTSIDE RECORDS SUMMARY | 2025-01-16 21:41 | XMS_ITS | Clinical Summary ---
Author Organization [facility] Address [address] [place] [address] Phone Care Team Providers Care Mold Forms Builder Name Role Phone aVlerie Castano MD Primary Care Provider Allergies Active [...] Comments OTHER SURGICAL HISTORY - 1989 PROCEDURE: [place] CAUTERY CERVIX CRYOCAUTERY INITIAL/REPEAT; COMMENT: for abnormal pap OTHER SURGICAL HISTORY PROCEDURE: NH LIG/TRNSXJ FLP TUBE ABDL/VAG APPR UNI/BI OTHER SURGICAL HISTORY 2012 PROCEDURE: [place] EXPLORATORY LAPAROTOMY CELIOTOMY W/WO BIOPSY SPX; COMMENT: [...] 01/28/2024 06/10/2021 Depression Screening 02/09/2024 COVID-19 Vaccine ( season) 2024 12/05/2023, 10/31/2022, 12/26/2021, Additional history [...] Insurance MEDICAID - [place] MEDICARE Care Teams Mold Forms Builder Relationship Specialty Start Date End Date Valerie Castano MD [address] [place] [address] PCP - General 05/21/10
== END 2025-01-16 15:52 | disposition home or self-care (01) ==
PROVIDERS: PCP Internal Medicine; Visit Provider Internal Medicine
DX: J44.9 Chronic obstructive pulmonary disease, unspecified (principal); J96.21 Acute and chronic respiratory failure with hypoxia; J96.22 Acute and chronic respiratory failure with hypercapnia; F19.10 Other psychoactive substance abuse, uncomplicated; E66.01 Morbid (severe) obesity due to excess calories
CPT/HCPCS: 99213

== ENCOUNTER → 2025-01-16 15:18 | Outpatient (BNVA) | payer MEDICARE, SELFPAY | PROVIDERS: PCP Internal Medicine; Visit Provider Internal Medicine | DX: J44.9 Chronic obstructive pulmonary disease, unspecified (principal); J96.21 Acute and chronic respiratory failure with hypoxia; J96.22 Acute and chronic respiratory failure with hypercapnia; E66.01 Morbid (severe) obesity due to excess calories; F19.10 Other psychoactive substance abuse, uncomplicated; Z68.39 Body mass index [BMI] 39.0-39.9, adult; Z79.52 Long term (current) use of systemic steroids; Z79.899 Other long term (current) drug therapy | CPT/HCPCS: 99212 ==

== ENCOUNTER 2025-02-07 13:05 | Outpatient (REF) | payer MEDICARE, MEDICAID, SELFPAY ==
--- OUTSIDE RECORDS SUMMARY | 2025-02-07 14:37 | XMS_ITS | Clinical Summary ---
Author Organization [facility] Address [address] [place] [address] Phone Care Team Providers Care Record Pressman Name Role Phone Valerie Castano MD Primary [...] Health Maintenance Due Date Last Done Comments Drug Screen 1960 Non-Opioid Controlled Substance Agreement 1960 Cervical Cancer Screening: Pap Smear 05/30/1983 RSV [...] Insurance MEDICAID - [place] MEDICARE Care Teams Record Pressman Relationship Specialty Start Date End Date Valerie Castano MD [address] [place] [address] PCP - General 05/21/10
--- OUTSIDE RECORDS SUMMARY | 2025-02-07 14:37 | XMS_ITS | Clinical Summary ---
Author Organization [facility] Address [address] [place] [address] [address] [place] [address] Phone Care Team Providers Care Rehab Nurse Name Role Phone Angel Castano MD Primary Care Provider +1- [phone] Allergies Active Allergy Reactions Criticality Noted Date [...] stage I through stage IV, or unspecified 56453 Units IJ Every 14 days 11/22/2020 Active [...] - PCV20 or PCV21) 02/19/2020 02/18/2015, 03/22/2012, 01/13/2012, Additional history exists Influenza Vaccine (#1) 2024 , 10/31/2022, 10/03/2021, Additional history exists Pneumococcal Vaccine: Peds (0 to 5 Years) and At-Risk Patients (6 to 49 Years) Discontinued 02/18/2015, 03/22/2012, 01/13/2012, Additional history exists Hepatitis B Vaccine Aged Out No longe r eligible based on patient's age to complete this topic Insurance [place] [facility] Medicare Care Teams Rehab Nurse Relationship Specialty Start Date End Date Angel Castano MD PCP - General 02/19/20
--- OUTSIDE RECORDS SUMMARY | 2025-02-07 14:37 | XMS_ITS | Clinical Summary ---
Author Organization [facility] Address [address] [place] [address] Care Team Providers Care Submarine Operator Name Role Phone Ref, Hasnopcp Primary Care [...] age to complete this topic Insurance MEDICARE [facility] Care Teams Submarine Operator Relationship Specialty Start Date End Date Ref, Hasnopcp DO NOT EDIT THIS RECORD VIA PROVIDER ON THE FLY PCP - General Science Interpreter 06/10/21
--- OUTSIDE RECORDS SUMMARY | 2025-02-07 14:37 | XMS_ITS | Encounter Summary ---
Author Organization [facility] Address [address] [place] [address] Phone Care Team Providers Care Clerical Office Worker Name Role Phone Angel Castano MD Primary Care Provider [phone] Encounter Details Date Type Department Care Team (Late st Contact Info) Description 05/04/2022 Telephone [facility] [address] [place] [address] Kitty Menezes MA Social History [...] on filedocumented in this encounter Care Teams Clerical Office Worker Relationship Specialty Start Date End Date Angel Castano MD PCP - General 02/19/20 documented as of this encounter
--- OUTSIDE RECORDS SUMMARY | 2025-02-07 14:37 | XMS_ITS | Data Portability ---
Author Organization [place] - [facility] Address [address] [place] [id number] Care Team Providers Care In House Cra Name Role Phone [facility] Primary Care Provider Assessment Encounter Date [...] after care of this [facility]. Time On Scene with Patient: 00:33:49 [email or web address] Not available 08/19/2022 20:13:05 Plan of Treatment [...] By Organization Details Last Modified Time 08/19/2022 [id number] Thank you for yo ur [facility]. You were seen today for [...] in your condition between 8am-10pm, please call [facility] at [phone] to help navigate your care. [email or web address] Not available 08/19/2022 13:24:42 Reason for Referral None Reported. Procedures Surgical History Date Name Laterality Status Provider Name and Address Organization Details Recorded Time ligation of fallopian tube completed Bianca Pascal NP [facility] [address], [place], [address], [place] - [facility] 08/19/2022 13:21:29 tracheostomy, emergency procedure by transtracheal approach completed Bianca Pascal NP [address], [place], [address], [place] [facility] 08/19/2022 13:21:53 Imaging Results None recorded. Procedure Notes None recorded. Medical Equipment None Reported. Allergies Allergen ID Allergen Name Allergen Category Reaction Reaction Severity Criticality Documentation Date Start Date Code Code System Note Provider Name and Address Organization Details Recorded Time 483507 Cipro medicatio n Not available Not available Not available 08/19/202209501 3 RxNorm Bianca Pascal NP [address], [place], [address], [place] [facility] 13:18:54 Medications Name Sig Start [...] rate Body temperature Heart rate Oxygen saturation Systolic And Diastolic Provider Name and Address Organization Details Last Updated DateTime 3 18 /min 98.8 [degF] 89 /min 94 % 116/70 mm[Hg] Not Available [facility] 13:21:58 Social History Question Answer Notes LastModified by [employer] Details LastModified Time Tobacco Smoking Status Former Smoker Bianca Pascal, [employer] [address], [place], [address], [place] [facility] 08/19/2022 13:22:36 Do You Have An Advance Directive? Yes Information not available 08/19/2022 What Is Your Code Status? Full Code Information not available 08/19/2022 Within The Past 12 Months, Has It Happened That The Food You Bought Just Didn't Last And You Didn't Have Money To Get More. Sometimes True [email or web address] Information not available 08/19/2022 Within The Past 12 Months, Have You Worried That Your Food Would Run Out Before You Got Money To Buy More. Sometimes True [email or web address] Information not available 08/19/2022 Fall Risk: Do You Feel Unsteady When Standing Or Walking? Yes [email or web address] Information not available 08/19/2022 Does This Patient Have A PCP? Yes [email or web address] Information not available 08/17/2022 Has The Patient Seen Their PCP In The Past 6 Months? Yes [email or web address] Information not available 08/17/2022 Social Support: Do You Feel Safe? Yes Information not available 08/19/2022 Has Tobacco Cessation Counseling Been Provided? No [email or web address] Information not available 08/19/2022 Sex: Unknown Functional Status Question Answer Note LastModified by [employer] Details LastModified Time Do you use any illicit or recreational drugs? Yes heroin use 2022 [email or web address] Information not available 08/19/2022 What is your level of alcohol consumption? None [email or web address] Information not available 08/19/2022 Mental Status None recorded. Family History Relationship Description Onset Age of this Age Resolved Age Notes LastModified by Organization Details LastModified Time Mother Malignant neoplastic disease [email or web address] Not available 2022 13:22:14 Maternal Grandfather Malignant [...] ICD10 Code Diagnosis IMO Codes Diagnosis Note [id number] Bianca Pascal NP [facility] [address] [facility] [address] 08/19/2022 12:35:34 08/20/2022 15:06:31 Stasis dermatitis [id number] I87.2 Status of condition: Exacerbati on/Acute on [...] her healing. Lymphedema of bilateral lower limbs [id number] I89.0 Status of condition: Chronic. Testing/Re sults: [...] ID Guarantor Name 08/21/2022 1 [place]ICARE B-[place]: [employer] Deirdre Yipsette [id number] Deirdre Gudelia 08/17/2022 1 *SELF PAY* Deirdre Gudelia [id number] Deirdre Gudelia 08/20/2022 2 [place] [facility] Deirdre Yipsette [id number] Deirdre Kaplante Notes Date Note Type Note Provider Name [...] ago. Bianca Pascal, [employer] [address], [place], [address], [place] [facility] 08/19/2022 20:14:10 OBGyn Episode No OBEpisode recorded.
[2025-02-07 16:47] LABS: Hemoglobin 10.0 g/dl (12.0-16.0)
[2025-02-07 17:23] LABS: Estimated Glomerular Filt Rate 12; Potassium 5.2 mmol/L (3.3-5.1)
[2025-02-07 17:38] LABS: Parathyroid Hormone Intact 583.0 pg/mL (8.7-77.1)
== END 2025-02-07 13:06 | disposition home or self-care (01) ==
LOC: HO.HMGCLDS 13:05
PROVIDERS: PCP Internal Medicine; Visit Provider Internal Medicine Hypertension Specialist
DX: N18.5 Chronic kidney disease, stage 5 (principal)
CPT/HCPCS: 36415; 82565; 83970; 84132; 85018